=== PATIENT | male | born 1970 | race Caucasian/White ===

== ENCOUNTER 2019-12-01 01:38 | Inpatient (IN) | payer BC, SELFPAY ==
[2019-12-01] MEDS ORDERED: NITROGLYCERIN 0.4 MG/TAB SL ONE (02:11)
[2019-12-01] MEDS ORDERED: NA CHLORIDE 0.9% 1,000 ML ONE (02:11)
[2019-12-01] MEDS ORDERED: ONDANSETRON 4 MG/2 ML VIAL ONE (02:11)
[2019-12-01 02:12] LABS: Absolute Lymphocytes (CBC) 1.2 K/uL (0.7-4.9); Basophils % 0.9 % (0-1.3); Hematocrit 50.4 % (39.6-49.0); Lymphocytes % 9.7 % (15.3-44.8); MPV 9.2 fL (7.6-11.3); RBC Red Blood Cell Count 5.91 M/uL (4.33-5.43)
[2019-12-01 02:13] LABS: Protime INR 1.01
[2019-12-01 02:29] LABS: Albumin 3.4 g/dL (3.4-5.0); Bilirubin Direct 0.1 mg/dL (0-0.2); Bilirubin Total 0.4 mg/dL (0.2-1.0); Magnesium 2.1 mg/dL (1.8-2.4); Potassium 3.8 mmol/L (3.5-5.1); Protein, Total 6.9 g/dL (6.4-8.2); Troponin (Emerg Dept Use Only) 0.22 ng/mL (0.0-0.045)
[2019-12-01] MEDS ORDERED: ASPIRIN 81 MG CHEWABLE TABLET ONE (02:30)
[2019-12-01] MEDS ORDERED: MORPHINE 4 MG/ML SYR ONE (02:30)
--- NOTE | 2019-12-01 04:40 | ER ---
Nurse's Notes [facility] Name: Charan Restrepo Jr Age: 49 yrs Sex: Male : 1970 Arrival Date: 12/01/2019 Time: 01:39 Bed 18 Private MD: Diagnosis: ACUTE CORONARY SYNDROME Presentation: 12/01 01:56 Presenting complaint: Patient states: Pt reports he started having chest pain at around ea 2330, he reports the pain moving to his left arm. Pt took two baby aspirins prior to arrival. Transition of care: patient was not received from another setting of care. Onset of symptoms was December 01, 2019. Risk Assessment: Do you want to hurt yourself or someone else? Patient reports no desire to harm self or others. Initial Sepsis Screen: Does the patient meet any 2 criteria? No. Patient's initial sepsis screen is negative. Does the patient have a suspected source of infection? No. Patient's initial sepsis screen is negative. Care prior to arrival: Medication(s) given: ASA, 81 mg, x 2. 01:56 Method Of Arrival: Wheelchair ea 01:56 Acuity: MARTY 3 ea Triage Assessment: 02:04 General: Appears uncomfortable, Behavior is appropriate for age. Pain: Complains of ea pain in chest Pain radiates to left arm. Cardiovascular: Patient's skin is warm and dry. Historical: - Allergies: 02:03 No Known Drug Allergies; ea - Home Meds: 02:03 Lipitor Oral [Active]; clopidogrel 75 mg Oral tab 1 tab once daily [Active]; ea - PMHx: 02:03 Hyperlipidemia; Hypertension; ea - PSHx: 02:03 Cholecystectomy; right knee surgery; left elbow surgery; ea 07:15 Cardiac stents x 3; sv - Immunization history:: Adult Immunizations up to date. - Coronavirus screen:: The patient has NOT traveled to [place], [place], or [place] in the past 14 days. - Social history:: Smoking status: Patient reports the use of cigarette tobacco products, denies chronic smoking, but will smoke occasionally. - Ebola Screening: : No symptoms or risks identified at this time. Screenin:01 Abuse screen: Denies threats or abuse. Nutritional screening: No deficits noted. ea Tuberculosis screening: No symptoms or risk factors identified. Fall Risk None identified. Assessment: 02:04 General: Appears uncomfortable, Behavior is calm, cooperative, appropriate for age. ea Pain: Complains of pain in left arm and chest. Neuro: Level of Consciousness is awake, alert, obeys commands, Oriented to person, place, time, situation. Cardiovascular: Patient's skin is warm and dry. Respiratory: Airway is patent Respiratory effort is even, unlabored, Respiratory pattern is regular, symmetrical. Derm: Skin is pink, warm \T\ dry. Musculoskeletal: Circulation, motion, and sensation intact. 04:45 Reassessment: Patient and/or family updated on plan of care and expected duration. Pain ea level reassessed. Patient is alert, oriented x 3, equal unlabored respirations, skin warm/dry/pink. 05:19 Reassessment: Patient and/or family updated on plan of care and expected duration. Pain ea level reassessed. Patient is alert, oriented x 3, equal unlabored respirations, skin warm/dry/pink. Hospitalist at bedside updating on plan of care. 06:14 Reassessment: Patient and/or family updated on plan of care and expected duration. Pain ea level reassessed. Patient is alert, oriented x 3, equal unlabored respirations, skin warm/dry/pink. 07:03 Reassessment: Pt ambulating back from being outside. Pt updated on POC and that we are sv waiting on a bed assignment at this time. General: Appears in no apparent distress. comfortable, well developed, Behavior is calm, cooperative, appropriate for age. Pain: Denies pain. Neuro: Level of Consciousness is awake, alert, obeys commands, Oriented to person, place, time, situation, Moves all extremities. Full function Gait is steady, Speech is normal. Cardiovascular: Heart tones S1 S2 present Patient's skin is warm and dry. Rhythm is sinus rhythm Chest pain is denied. Respiratory: Airway is patent Respiratory effort is even, unlabored, Respiratory pattern is regular, symmetrical, Breath sounds are clear bilaterally. GI: No signs and/or symptoms were reported involving the gastrointestinal system. Derm: Skin is pink, warm \T\ dry. Musculoskeletal: Range of motion: intact in all extremities. 08:01 Reassessment: Patient appears in no apparent distress at this time. No changes from sv previously documented assessment. Patient and/or family updated on plan of care and expected duration. Pain level reassessed. Patient is alert, oriented x 3, equal unlabored respirations, skin warm/dry/pink. Vital Signs: 02:00 BP 147 / 82; Pulse 74; Resp 18; Temp 97.6; Pulse Ox 97% on R/A; Weight 99.79 kg; Height ea 5 ft. 10 in. (177.80 cm); 02:54 BP 152 / 94; Pulse 70; Resp 16; Pulse Ox 98% on R/A; ea 03:30 BP 137 / 76; Pulse 62; Resp 18; Pulse Ox 97% ; ea 03:45 Pain 7/10; ea 04:15 BP 127 / 84; Pulse 62; Resp 18; Pulse Ox 97% ; ea 05:50 BP 146 / 97; Pulse 81; Resp 18; Pulse Ox 98% on R/A; ea 06:14 BP 124 / 79; Pulse 66; Resp 18; Pulse Ox 98% on R/A; ea 07:05 BP 132 / 88; Pulse 65; Resp 18; Pulse Ox 98% ; sv 08:01 BP 129 / 86; Pulse 70; Resp 16; Pulse Ox 99% ; sv 02:00 Body Mass Index 31.57 (99.79 kg, 177.80 cm) ea ED Course: 01:39 Patient arrived in ED. cf2 01:47 EKG done, by ED staff, reviewed by Goldy Cantu MD. em1 01:48 Vijay Stoll PA is PHCP. cp 01:48 Goldy Cantu MD is Attending Physician. cp 01:54 Rachel Todd, AYLIN is Primary Nurse. ea 02:00 Triage completed. ea 02:02 Inserted saline lock: 20 gauge in right forearm, using aseptic technique. Blood ea collected. Patient maintains SpO2 saturation greater than 95% on room air. 02:02 Patient has correct armband on for positive identification. Placed in gown. Bed in low ea position. Call light in reach. Side rails up X2. maths tutor on. Pulse ox on. NIBP on. 02:03 Arm band placed on right wrist. Patient placed in an exam room, on a stretcher, on ea board attendant, on pulse oximetry. 02:19 XRAY Chest (1 view) In Process Unspecified. EDMS 04:40 Ld Palomino is Hospitalizing Provider. tw4 04:44 No provider procedures requiring assistance completed. Patient admitted, IV remains in ea place. 07:16 Primary Nurse role handed off by Rachel Todd RN sv 07:16 Dot Licea, RN is Primary Nurse. sv 07:18 Repeat lab(s) drawn. by me, sent to lab. sv 07:44 Troponin (emerg Dept Use Only): admission orders, ordered by Dr Palomino Sent. sv 07:47 Awaiting bed assignment. sv Administered Medications: 02:10 Drug: Nitroglycerin 0.4 mg Route: Sublingual; ea 02:31 Follow up: Response: No adverse reaction; Pain is unchanged, physician notified ea 02:11 Drug: NS 0.9% 1000 ml Route: IV; Rate: 1 bolus; Site: right forearm; ea 02:11 Drug: Zofran 4 mg Route: IVP; Site: right forearm; ea 02:31 Follow up: Response: No adverse reaction ea 02:31 Drug: Aspirin Chewable Tablet 162 mg Route: PO; ea 03:45 Follow up: Response: No adverse reaction ea 02:31 Drug: morphine 4 mg {Note: RASS 0 Pain 9/10.} Route: IVP; Site: right forearm; ea 03:45 Follow up: Pain 7/10 Adult; Response: No adverse reaction; Pain is decreased ea 05:11 Drug: Lovenox 1 mg/kg Route: Sub-Q; Site: right lower abdomen; ea 05:51 Follow up: Response: No adverse reaction ea Outcome: 04:40 Decision to Hospitalize by Provider. tw4 08:00 Admitted to Tele accompanied by tech, via wheelchair, room 204, with chart, Report sv called to Shaun VIERA 08:00 Condition: stable 08:00 Instructed on the need for admit. 08:15 Patient left the ED. sv Signatures: Dispatcher [employer] EDMS Dot Licea, Gómez Dillon RN em1 Vijay Stoll PA PA cp Antunez, Elena, RN RN ea Wadley, Terrence, MD MD tw4 Natalio Velez 2 Corrections: (The following items were deleted from the chart) 01:50 01:47 EKG done, by ED staff, em1 em1 07:16 02:03 PSHx: heart stent x 1; ea sv
--- NOTE | 2019-12-01 04:41 | EDPHYS ---
Physician Documentation [facility] Name: Charan Restrepo Jr Age: 49 yrs Sex: Male : 1970 Arrival Date: 12/01/2019 Time: 01:39 Bed 18 Private MD: ED Physician Goldy Cantu HPI: 12/01 01:59 This 49 yrs old Male presents to ER via Unassigned with complaints of Chest cp Pain. 02:00 The patient or guardian reports chest pain that is located primarily in the substernal cp area. Onset: last night, at 23:00. The pain does not radiate. The chest pain is described as stabbing. Duration: The patient or guardian reports a single episode, that is still ongoing. Severity of pain: in the emergency department the pain is a 9 / 10. Historical: - Allergies: 02:03 No Known Drug Allergies; ea - Home Meds: 02:03 Lipitor Oral [Active]; clopidogrel 75 mg Oral tab 1 tab once daily [Active]; ea - PMHx: 02:03 Hyperlipidemia; Hypertension; ea - PSHx: 02:03 Cholecystectomy; right knee surgery; left elbow surgery; ea 07:15 Cardiac stents x 3; sv - Immunization history:: Adult Immunizations up to date. - Coronavirus screen:: The patient has NOT traveled to [place], [place], or [place] in the past 14 days. - Social history:: Smoking status: Patient reports the use of cigarette tobacco products, denies chronic smoking, but will smoke occasionally. - Ebola Screening: : No symptoms or risks identified at this time. ROS: 02:01 Eyes: Negative for injury, pain, redness, and discharge. cp 02:01 Constitutional: Negative for body aches, chills, fever, poor PO intake. 02:01 ENT: Negative for drainage from ear(s), ear pain, sore throat, difficulty swallowing, difficulty handling secretions. 02:01 Cardiovascular: Positive for chest pain, Negative for edema, palpitations. 02:01 Respiratory: Negative for cough, shortness of breath, wheezing. 02:01 Abdomen/GI: Negative for abdominal pain, vomiting, diarrhea, constipation. 02:01 Back: Negative for radiated pain. 02:01 Neuro: Negative for altered mental status, headache, syncope, weakness. 02:01 All other systems are negative. Exam: 02:02 Head/Face: Normocephalic, atraumatic. cp 02:02 Constitutional: The patient appears in no acute distress, alert, awake, non-diaphoretic, non-toxic, well developed, well nourished. 02:02 Eyes: Periorbital structures: appear normal, Conjunctiva: normal, no exudate, no injection, Sclera: no appreciated abnormality, Lids and lashes: appear normal, bilaterally. 02:02 ENT: External ear(s): are unremarkable, Nose: is normal, Mouth: Lips: moist, Oral mucosa: pink and intact, moist, Posterior pharynx: Airway: no evidence of obstruction, patent. 02:02 Chest/axilla: Inspection: normal, Palpation: is normal, no crepitus, no tenderness. 02:02 Cardiovascular: Rate: normal, Rhythm: regular, Pulses: Pulses are 2+ in right radial artery and left radial artery. Edema: is not appreciated, JVD: is not appreciated. 02:02 Respiratory: the patient does not display signs of respiratory distress, Respirations: normal, no use of accessory muscles, no retractions, labored breathing, is not present, Breath sounds: are clear throughout, no decreased breath sounds, no stridor, no wheezing. 02:02 Abdomen/GI: Inspection: abdomen appears normal, Bowel sounds: active, all quadrants, Palpation: abdomen is soft and non-tender, in all quadrants, rebound tenderness, is not appreciated, voluntary guarding, is not appreciated, involuntary guarding, is not appreciated. 02:02 Back: pain, is absent. 02:02 Neuro: Orientation: to person, place \T\ time. Mentation: is normal, Motor: moves all fours, strength is normal, Sensation: is normal. 02:04 ECG was reviewed by the Attending Physician. cp Vital Signs: 02:00 BP 147 / 82; Pulse 74; Resp 18; Temp 97.6; Pulse Ox 97% on R/A; Weight 99.79 kg; Height ea 5 ft. 10 in. (177.80 cm); 02:54 BP 152 / 94; Pulse 70; Resp 16; Pulse Ox 98% on R/A; ea 03:30 BP 137 / 76; Pulse 62; Resp 18; Pulse Ox 97% ; ea 03:45 Pain 7/10; ea 04:15 BP 127 / 84; Pulse 62; Resp 18; Pulse Ox 97% ; ea 05:50 BP 146 / 97; Pulse 81; Resp 18; Pulse Ox 98% on R/A; ea 06:14 BP 124 / 79; Pulse 66; Resp 18; Pulse Ox 98% on R/A; ea 07:05 BP 132 / 88; Pulse 65; Resp 18; Pulse Ox 98% ; sv 08:01 BP 129 / 86; Pulse 70; Resp 16; Pulse Ox 99% ; sv 02:00 Body Mass Index 31.57 (99.79 kg, 177.80 cm) ea MDM: 01:55 Patient medically screened. cp 02:08 Differential diagnosis: acute myocardial infarction, cholecystitis, Cholelithiasis cp esophagitis, gastroesophageal reflux disease (GERD), pneumothorax, stable angina, thoracic aortic disection, unstable angina. 12/01 01:54 Order name: Basic Metabolic Panel; Complete Time: 04:39 12/01 01:54 Order name: CBC with Diff; Complete Time: 02:18 12/01 02:19 Interpretation: Normal except: WBC 12.1; RBC 5.91; HCT 50.4; OSIEL% 80.8; LYM% 9.7; NEUT cp A 9.8. 12/01 01:54 Order name: LFT's; Complete Time: 04:39 12/01 01:54 Order name: Magnesium; Complete Time: 04:39 ea 12/01 01:54 Order name: NT PRO-BNP; Complete Time: 04:39 12/01 01:54 Order name: PT-INR; Complete Time: 02:18 12/01 02:20 Interpretation: Reviewed. cp 12/01 01:54 Order name: Troponin (emerg Dept Use Only); Complete Time: 04:39 12/01 01:54 Order name: XRAY Chest (1 view) ea 12/01 07:14 Order name: Troponin (emerg Dept Use Only): admission orders, ordered by Dr Palomino 12/01 01:54 Order name: EKG; Complete Time: 01:55 ea 12/01 01:54 Order name: Cardiac monitoring; Complete Time: 01:55 12/01 01:54 Order name: EKG - Nurse/Tech; Complete Time: 01:55 12/01 01:54 Order name: IV Saline Lock; Complete Time: 01: ea 12/01 01:54 Order name: Labs collected and sent; Complete Time: ea 12/01 01:54 Order name: O2 Per Protocol; Complete Time: ea 12/01 01:54 Order name: O2 Sat Monitoring; Complete Time: EC:04 Rate is 73 beats/min. Rhythm is regular. AR interval is normal. QRS interval is normal. cp QT interval is normal. T waves are Inverted in leads I, aVL, aVR. Interpreted by me. Reviewed by me. Administered Medications: 02:10 Drug: Nitroglycerin 0.4 mg Route: Sublingual; ea 02:31 Follow up: Response: No adverse reaction; Pain is unchanged, physician notified ea 02:11 Drug: NS 0.9% 1000 ml Route: IV; Rate: 1 bolus; Site: right forearm; ea 02:11 Drug: Zofran 4 mg Route: IVP; Site: right forearm; ea 02:31 Follow up: Response: No adverse reaction ea 02:31 Drug: Aspirin Chewable Tablet 162 mg Route: PO; ea 03:45 Follow up: Response: No adverse reaction ea 02:31 Drug: morphine 4 mg {Note: RASS 0 Pain 9/10.} Route: IVP; Site: right forearm; ea 03:45 Follow up: Pain 7/10 Adult; Response: No adverse reaction; Pain is decreased ea 05:11 Drug: Lovenox 1 mg/kg Route: Sub-Q; Site: right lower abdomen; ea 05:51 Follow up: Response: No adverse reaction ea Disposition: 15:20 Co-signature as Attending Physician, Goldy Cantu MD I agree with the assessment and tw4 plan of care. Disposition: 12/01/19 04:40 Hospitalization ordered by Ld Palomino for Inpatient Admission. Preliminary diagnosis is ACUTE CORONARY SYNDROME. - Bed requested for Telemetry/MedSurg (Inpatient). - Status is Inpatient Admission. sv - Condition is Stable. - Problem is new. - Symptoms have improved. Signatures: Dispatcher [employer] EDMS Emma Maldonado Stephanie, RN RN sv Page, Corey, PA PA cp Antunez, Elena, RN RN ea Wadley, Terrence, MD MD tw4 Corrections: (The following items were deleted from the chart) 07:16 02:03 PSHx: heart stent x 1; ea sv 07:52 04:40 Hospitalization Ordered by Ld Palomino for Inpatient Admission. Preliminary bd diagnosis is ACUTE CORONARY SYNDROME. Bed requested for Telemetry/MedSurg (Inpatient). Status is Inpatient Admission. Condition is Stable. Problem is new. Symptoms have improved. tw4 08:15 07:52 12/01/2019 04:40 Hospitalization Ordered by Ld Palomino for Inpatient sv Admission. Preliminary diagnosis is ACUTE CORONARY SYNDROME. Bed requested for Telemetry/MedSurg (Inpatient). Status is Inpatient Admission. Condition is Stable. Problem is new. Symptoms have improved. bd
[2019-12-01] MEDS ORDERED: ENOXAPARIN 100 MG/ML SYR SQ ONE (04:58)
--- NOTE | 2019-12-01 05:52 | P.HP ---
Certification for Inpatient Patient admitted to: Observation With expected LOS: <2 Midnights Practitioner: I am a practitioner with admitting privileges, knowledge of patient current condition, hospital course, and medical plan of care. Services: Services provided to patient in accordance with Admission requirements found in Title 42 Section 412.3 of the Code of Federal Regulations Patient History Date of Service: 12/01/19 Reason for admission: Chest pain History of Present Illness: 49-year-old gentleman with a history of coronary artery disease status post stent and chronic systolic heart failure presented to the emergency department with a complaint of chest pain of onset last night. Patient described a left anterior chest pain of maximum intensity 9/10, which occurred at rest, radiating to involve the left shoulder, no aggravating or relieving factors, no associated diaphoresis or nausea or palpitation. Patient reports having another chest pain episode in the emergency department before I saw him. He had no more chest pain during my examination. His initial troponin is elevated to 0.22. EKG reviewed and demonstrating J-point elevations. Chest x-ray shows cardiomegaly, no acute changes. Noted patient had a cardiac catheterization in 2017 and was found to have InStent stenosis and other points of stenosis in the LAD. Balloon dilatation was performed at that time. Patient reports compliance with his medications which include aspirin and Plavix. He continues to smoke heavily. He is placed under observation for further management. Allergies No Known Drug Allergies Allergy (Verified 06/21/17 20:11) Unknown No Known All Allergy (Uncoded 06/21/17 20:11) Unknown Home Medications: Clopidogrel Bisulfate [Plavix*] 75 mg PO DAILY #30 tablet 02/16/15 Metoprolol Tartrate [Lopressor*] 12.5 mg PO BID #30 tab 02/16/15 ramipriL [Altace*] 2.5 mg PO DAILY #30 cap 02/16/15 Aspirin [Aspirin EC 81 MG] 81 mg PO DAILY #30 tablet. 06/23/17 Atorvastatin Calcium [Lipitor] 80 mg PO BEDTIME #30 tab 06/23/17 Nitroglycerin [Nitrostat*] 0.4 mg SL UD PRN #30 tab 06/23/17 - Past Medical/Surgical History Diabetic: No -: mycardial infarction x2 -: HTN -: kidney stones -: CAD -: HLD -: cholecystectomy -: left leg fixator -: right knee sx -: left elbow sx -: cardiac cath w/heart stent x1 -: bone graft - Family History Father -: Heart disease, Cancer - Social History Smoking Status: Heavy Tobacco smoker (>10 cigarettes/day) Alcohol use: Yes CD- Drugs: No Caffeine use: Yes Review of Systems Other: Except as documented, all other systems reviewed and negative. Physical Examination - Physical Exam General: Alert, In no apparent distress, Oriented x3 HEENT: Mucous membr. moist/pink, Sclerae nonicteric Neck: Supple, JVD not distended Respiratory: Clear to auscultation bilaterally, Normal air movement Cardiovascular: No edema, Regular rate/rhythm, Normal S1 S2 Capillary refill: <2 Seconds Gastrointestinal: Normal bowel sounds, Soft and benign, Non-distended, No tenderness Musculoskeletal: No swelling, No erythema Integumentary: No rashes, No erythema Neurological: Normal speech, Normal strength at 5/5 x4 extr, Cranial nerves 3- 12 intact - Studies Laboratory Data (last 24 hrs) 12/01/19 01:50: PT 11.9, INR 1.01 12/01/19 01:50: WBC 12.1 H, Hgb 16.9, Hct 50.4 H, Plt Count 211 12/01/19 01:50: Sodium 139, Potassium 3.8, BUN 23 H, Creatinine 1.31 H, Glucose 283 H, Magnesium 2.1, Total Bilirubin 0.4, AST 14 L, ALT 27, Alkaline Phosphatase 89 Assessment and Plan - Problems (Diagnosis) (1) Chest pain Onset Date: 06/22/17 Current Visit: No Status: Acute Qualifiers: Chest pain type: precordial pain Qualified Code(s): R07.2 - Precordial pain (2) Elevated troponin Current Visit: Yes Status: Acute (3) CKD (chronic kidney disease), stage III Onset Date: 06/22/17 Current Visit: No Status: Chronic (4) CAD (coronary artery disease) Onset Date: 06/22/17 Current Visit: No Status: Chronic Qualifiers: Coronary Disease-Associated Artery/Lesion type: [place] artery [place] vs. transplanted heart: [place] heart Associated angina: with unstable angina Qualified Code(s): I25.110 - Atherosclerotic heart disease of [place] coronary artery with unstable angina pectoris (5) Hyperlipidemia Onset Date: 06/22/17 Current Visit: No Status: Chronic Qualifiers: Hyperlipidemia type: unspecified Qualified Code(s): E78.5 - Hyperlipidemia , unspecified (6) Hypertension Onset Date: 02/16/15 Current Visit: No Status: Chronic Qualifiers: Hypertension type: essential hypertension Qualified Code(s): I10 - Essential (primary) hypertension (7) Nicotine dependence Current Visit: No Status: Chronic Qualifiers: Nicotine product type: cigarettes Substance use status: uncomplicated Qualified Code(s): F17.210 - Nicotine dependence, cigarettes, uncomplicated - Plan Place under observation. Continue to trend troponin Continue aspirin and Plavix. Add Metoprolol Will start full-dose Lovenox given patient's high CAD risk factors Lipitor ordered Check lipid profile Echocardiogram requested Cardiology consult placed. - Advance Directives Does patient have a Living Will: No Does patient have a Durable POA for Healthcare: No
--- NOTE | 2019-12-01 07:57 | RAD REPORT ---
EXAM DESCRIPTION: Du Single View12/01/2019 2:19 am CLINICAL HISTORY: Chest pain COMPARISON: none FINDINGS: The lungs appear clear of acute infiltrate. The heart is mildly to moderately enlarged IMPRESSION: No acute abnormalities displayed
[2019-12-01] MEDS ORDERED: NITROGLYCERIN 0.4 MG/TAB SL PRN (08:04)
[2019-12-01] MEDS: ASPIRIN EC 81 MG TAB PO SCH (08:25)
[2019-12-01] MEDS: METOPROLOL TAR 25 MG TAB PO SCH ×2 (09:09→20:45)
[2019-12-01 10:15] VITALS: BMI 31.5
[2019-12-01] MEDS ORDERED: GLUCAGON 1 MG/VIAL IM PRN (11:06)
[2019-12-01] MEDS ORDERED: D50W 25 GM/50 ML SYRINGE/VIAL IV PRN (11:06)
--- NOTE | 2019-12-01 11:36 | ECHO ---
HEIGHT: 5 ft 10 in WEIGHT: 219 lb 15.989 oz DATE OF STUDY: 12/01/[address]: sandra opllard 2-DIMENSIONAL: YES M.MODE: YES DOPPLER: YES COLOR FLOW: YES TDS: NO PORTABLE: NO DEFINITY: NO BUBBLE STUDY: NO DIAGNOSIS: CHEST PAIN, ELEVATED TROPONIN CARDIAC HISTORY: CATHERIZATION: YES SURGERY: NO PROSTHETIC VALVE: NO PACEMAKER: NO MEASUREMENTS (cm) DIASTOLIC (NORMALS) SYSTOLIC (NORMALS) IVSd 1.2 (0.6-1.2) LA Diam 3.8 (1.9-4.0) LVEF 40-45% LVIDd 5.9 (3.5-5.7) LVIDs 4.2. (2.0-3.5) %FS 28% LVPWd 1.3 (0.6-1.2) Ao Diam 3.4 (2.0-3.7) 2 DIMENSIONAL ASSESSMENT: RIGHT ATRIUM: NORMAL LEFT ATRIUM: DILATED RIGHT VENTRICLE: NORMAL LEFT VENTRICLE: LEFT VENTRICULAR HYPERTROPHY TRICUSPID VALVE: NORMAL MITRAL VALVE: NORMAL PULMONIC VALVE: NORMAL AORTIC VALVE: NORMAL PERICARDIAL EFFUSION: NONE AORTIC ROOT: NORMAL LEFT VENTRICULAR WALL MOTION: AKINESIS OF ANTERIOR WALL & APEX. DOPPLER/COLOR FLOW: MILD MITRAL REGURGITATION. COMMENTS: MILDLY DEPRESSED LEFT VENTRICUALR EJECTION FRACTION WITH WALL MOTION ABNORMALITY. MILD MITRAL REGURGITATION. DILATED LEFT ATRIUM. LEFT VENTRICULAR HYPERTROPHY. TECHNOLOGIST: SAMSON NARANJO
[2019-12-01] MEDS: NICOTINE 21 MG/PAT TD SCH (11:54)
[2019-12-01] MEDS: INSULIN -REGULAR HUMAN 50 UNIT/0.5 ML ML SQ SCH ×3 (11:55→20:46)
--- NOTE | 2019-12-01 13:37 | CON ---
History Of Present Illness: Mr. Restrepo has a history of coronary heart disease. His last stent was in 2017. It was a proximal LAD stenosis. 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 H is right coronary and circumflex were free of any significant disease. When we did our last heart ca theterization, he had multiple stents before the stent we put in in 2017. Mr. Restrepo developed ches t pain about 11:30 p.m. yesterday, came to the emergency room at about 1 a.m. today. All of his pain went away as of 4:30 a.m. today. It is about 5 hours ago. The patient received Lovenox just a few hours ago, so he is not an ideal candidate to do a cardiac catheterization electively. It would be o suellen if it were emergent, but it is no longer emergent. Mr. Restrepo has underlying obstructive lung d isease, hypertension, coronary heart disease, dyslipidemia. He does not have diabetes. He continues to smoke cigarettes. Medications: Outpatient medications have been clopidogrel, metoprolol, ramipril, atorvastatin, nitro glycerin, and aspirin. Physical Examination: General: He is 5 feet 10 inches, 219 pounds, disheveled, unkempt, alert, oriented, pleasant, not in distress. Lungs: Clear, but breath sounds are mostly bronchial. No wheezes. Abdomen: Soft. Extremities: Reveal palpable distal pulses. No cyanosis, clubbing, or edema. There is no carotid b ruit. Heart: Reveals a regular rate and rhythm without a murmur or gallop. Laboratory Data: His troponin on arrival was 0.22, 6 hours later it is 2.84, consistent with non-ST- elevation UT. His EKG shows old anterior and lateral and inferior infarctions, not significantly sreedhar nged from his older EKGs. Impression: The patient has had a [id number] myocardial infarction. He should undergo a cardi ac catheterization because the Lovenox was given so recently. We will do it now and we will plan on doing a cardiac catheterization tomorrow morning. The patient seems to understand the procedure, potential benefits, indications, risks, and agrees to proceed. KEITH/FAUSTINO Voice ID: [id number] Report ID: [id number]
[2019-12-01] MEDS: NA CHLORIDE 0.9% 1,000 ML IV SCH (14:34)
[2019-12-01] MEDS: MORPHINE 2 MG/ML SYR IV PRN ×2 (14:35→18:35)
[2019-12-01] MEDS ORDERED: ENOXAPARIN 100 MG/ML SYR SQ SCH (18:00)
[2019-12-01] MEDS ORDERED: ATORVASTATIN 40 MG TAB PO SCH (21:00)
[2019-12-02] MEDS: NA CHLORIDE 0.9% 1,000 ML IV SCH (05:26)
[2019-12-02] MEDS: ASPIRIN EC 81 MG TAB PO SCH (06:05)
[2019-12-02] MEDS: METOPROLOL TAR 25 MG TAB PO SCH (06:05)
[2019-12-02 06:35] LABS: Absolute Lymphocytes (CBC) 1.7 K/uL (0.7-4.9); Basophils % 1.1 % (0-1.3); Hematocrit 49.9 % (39.6-49.0); Lymphocytes % 18.7 % (15.3-44.8); MPV 9.2 fL (7.6-11.3); RBC Red Blood Cell Count 5.87 M/uL (4.33-5.43)
[2019-12-02] MEDS: INSULIN -REGULAR HUMAN 50 UNIT/0.5 ML ML SQ SCH ×2 (07:30→10:57)
[2019-12-02] MEDS: NICOTINE 21 MG/PAT TD SCH (08:37)
[2019-12-02] MEDS ORDERED: HEPARIN 5000 UNIT/ML 1 ML VIAL ONE (08:41)
[2019-12-02] MEDS ORDERED: MIDAZOLAM HCL 2 MG/2 ML INJ ONE ×2 (08:41→09:20)
[2019-12-02] MEDS ORDERED: NA CHLORIDE 0.9% 0 ML ONE (08:41)
[2019-12-02] MEDS ORDERED: FENTANYL CITR 100 MCG/2 ML ONE (08:41)
[2019-12-02] MEDS ORDERED: ATROPINE SULF 1 MG/10 ML SYR IV ONE (08:41)
[2019-12-02] MEDS ORDERED: NICARDIPINE HCL 25 MG/10 ML IV ONE (08:41)
[2019-12-02] MEDS ORDERED: NA CHLORIDE 0.9% 500 ML ONE (08:50)
--- NOTE | 2019-12-02 08:51 | EKG ---
Test Date: 2019-12-01 Test Time: 01:46:39 Patient Coordinator: JEREMI MEASUREMENT RESULTS: Intervals: Rate: 73 LA: 148 QRSD: 92 QT: 360 QTc: 396 [place]: P: 32 LA: 148 QRS: 84 T: 70 INTERPRETIVE STATEMENTS: Normal sinus rhythm Possible Inferior infarct, age undetermined Anterolateral infarct, age undetermined Abnormal ECG Compared to ECG 06/21/2017 01:41:29 No significant changes Electronically Signed On 12-02-19 08:50:11 MANAGER CREATIVE by Montez Mei
[2019-12-02] MEDS ORDERED: CLOPIDOGREL 75 MG TABLET PO SCH (09:00)
[2019-12-02] MEDS ORDERED: ACETYLCYST 20% 4 ML VIAL IH ONE (09:15)
[2019-12-02] MEDS ORDERED: HEPA 1000U/500MLS 2,000 UNIT/1,000 ML BAG IV ONE (09:33)
[2019-12-02] MEDS ORDERED: INSULIN -REGULAR HUMAN 50 UNIT/0.5 ML ML ONE (10:56)
[2019-12-02 11:40] VITALS: O2SAT 98
[2019-12-02 12:58] VITALS: BP 126/64; TEMP 97.1
--- NOTE | 2019-12-02 20:29 | OP ---
Surgeon: Montez Mei MD Identification: A 49-year-old man. Procedure: Left heart catheterization with coronary angiography, measurement of LV pressures. Indication: Non-ST elevation IA. Procedure Findings: The patient had previous LAD stents, they were widely patent. No stenosis. Mil d lumen irregularities throughout the coronary tree. There is ectasia in the right coronary artery t hat has some flow stasis abnormalities and in general the coronary flow is slow, probably due to micr ovascular coronary artery disease. Epicardial arteries have no significant stenosis. The left ventr icular end-diastolic pressure was normal. Procedure In Detail: The patient was brought to the cardiac mechanical laboratory technician in a fasting, sedated with Vers ed and fentanyl, right radial approach, 1% lidocaine, a 21-gauge needle, a 0.021 inch diameter guidew harleen. A Terumo 5/6-Taiwanese radial sheath gave a radial cocktail consisting of nicardipine, heparin, ni troglycerin. We used a TIG catheter, guided into place using a [facility] Glidewire with a short radius J-tip. We used a TIG catheter to measure LV pressures and do right and left coronary angiography. A t the end of the procedure, the catheter was withdrawn over a J-wire to minimize any trauma to the ar savita. Pressures were measured in the sheath after everything was removed and flushed. Waveforms loo k normal and then the sheath was removed. The arteriotomy closed with a TR band. Estimated Blood Loss: 5 mL. Outside Sales Advertising Executive: Aram Stratton. Complications: None. KEITH/FAUSTINO Voice ID: [id number] Report ID: [id number]
--- NOTE | 2019-12-02 22:49 | DS ---
Date of Discharge: 12/02/2019 Hospital Course: This patient is a 49-year-old gentleman, who presented for chest pain. He has a history of coronary artery disease status post stenting, chronic systolic CHF, and type 2 diabetes. The patient experienced left anterior chest pain and then presented to the emergency room. In the ED, the initial troponin was 0.022, and EKG demonstrated J-point elevation. Repeated troponin was 2.6. He was diagnosed of non-STEMI. Waterside Worker, Dr. Mei was consulted. He decided to perform cardiac catheterization. Cardiac cath is unremarkable per population health manager. Echo demonstrated ejection fraction 40% to 45%. Currently, patient is chest pain free. Vital stable. Waterside Worker recommended discharge. Instructed him to follow population health manager in 1 or 2 weeks. Physical Examination: Vital Signs: Temperature normal, heart rate 74, blood pressure 124/75. General: The patient awake, alert, in no acute distress. HEENT: PERRLA. EOMI. Chest: Clear to auscultation. No respiratory distress. Heart: Normal S1, S2. Regular rhythm and rate. No murmur. Abdomen: Soft, nontender. Bowel sounds present. Extremities: No edema. No cyanosis. Neuro: Patient awake and alert. Nonfocal. Strength 5/5. No anxiety or agitation. Skin: No rashes or eczema. Laboratory Data: WBC 8.9, hemoglobin 16.9, platelet 203. Sodium 139, potassium 4, chloride 108, creatinine 1.06, blood sugar 187, triglycerides 266, total cholesterol 135. Discharge Diagnoses: 1. Kjy-DK-fuhpmtauq myocardial infarction. 2. Systolic congestive heart failure. 3. Coronary artery disease. 4. Hyperlipidemia. 5. Chronic kidney disease stage 3. 6. Tobacco abuse. Discharge Medications: Please see home medication list. Discharge Instructions: 1. Please follow population health manager in 1 or 2 weeks. 2. Please try to stop smoking. 3. Be on low-fat and healthy heart diet. 4. Please call emergency room if having shortness of breath or chest pain. Discharge Activity: As tolerated. I spent at least 30 minutes to discharge patient including reviewing the chart, physical examination, and the patient education. QT/MODL Voice ID: [id number] Report ID: [id number] [place]
== END 2019-12-02 12:24 | disposition home or self-care (01) | DRG 281 ==
LOC: ER 01:38 → ERHOLD 06:29 → 2ND 08:00 → OBSVTOIN 10:35
PROVIDERS: ADMIT Internal Medicine; ATTEND Internal Medicine
PROC: 4A023N7 Measurement of Cardiac Sampling and Pressure, Left Heart, Percutaneous Approach (ICD-10-PCS; principal; 2019-12-02)
PROC: B205YZZ Plain Radiography of Left Heart using Other Contrast (ICD-10-PCS; 2019-12-02)
PROC: B201YZZ Plain Radiography of Multiple Coronary Arteries using Other Contrast (ICD-10-PCS; 2019-12-02)
DX: I21.4 Non-ST elevation (NSTEMI) myocardial infarction (principal); I13.0 Hypertensive heart and chronic kidney disease with heart failure and stage 1 through stage 4 chronic kidney disease, or unspecified chronic kidney disease; I50.22 Chronic systolic (congestive) heart failure; I25.10 Atherosclerotic heart disease of native coronary artery without angina pectoris; Z95.5 Presence of coronary angioplasty implant and graft; N18.3 Chronic kidney disease, stage 3 (moderate); E78.5 Hyperlipidemia, unspecified; F17.210 Nicotine dependence, cigarettes, uncomplicated
CPT/HCPCS: 36415; 71045; 80048; 80061; 80076; 82947; 83735; 83880; 84484; 85025; 85610; 93005; 93306; 93458; 96372; 96374; 96375; 99285; C1893; G0378; J0583; J1644; J1650; J2250; J2270; J2405; J3010; J7030; J7040

== ENCOUNTER 2023-03-18 11:13 | Emergency (ER) | payer BC, SELFPAY ==
--- OUTSIDE RECORDS SUMMARY | 2023-03-18 11:16 | XMS REPORT | Continuity of Care Document ---
:1970 Author Organization [facility] t Address [address] [place] [address] Care Team Providers Name Role Phone Carmen Spencer Attending Clinician Unavailable Problems This patient has no known problems. Allergies, Adverse Reactions, Alerts This patient has no known allergies or adverse reactions. Medications This patient has no known medications. Procedures This patient has no known procedures. Encounters Start End Encounter Admission Attending Care Care Encounter Source Date/Time Date/Time Type Type Clinicians Facility Department ID 2022-11-07 Outpatient Johanna, [facility] [id number] Common 07:49:00 Carmen [id number] [facility] 2022-10-17 Outpatient DAILY Spencer [facility] [id number] Common 15:16:02 Carmen [facility] 2022-10-11 Outpatient DAILY Spencer [facility] [id number] Common 12:49:02 Carmen [facility] 2022-10-10 Outpatient Johanna [facility] [id number] Common 10:34:05 Carmen [facility] Results This patient has no known results.
[2023-03-18] MEDS ORDERED: Magnesium Sulfate 2gm IVPB 2 G/50 ML BAG IV ONE (11:32)
[2023-03-18] MEDS ORDERED: ONDANSETRON 4 MG/2 ML VIAL ONE (11:38)
[2023-03-18] MEDS ORDERED: MIDAZOLAM HCL 2 MG/2 ML INJ ONE (11:38)
[2023-03-18] MEDS ORDERED: FENTANYL CITR 100 MCG/2 ML ONE ×2 (11:38→12:47)
[2023-03-18] MEDS ORDERED: AMIODARONE HCL 150 MG/3 ML INJ IV ONE (11:38)
[2023-03-18 11:40] LABS: Absolute Lymphocytes (CBC) 4.4 K/uL (0.7-4.9); Hematocrit 56.5 % (39.6-49.0); Lymphocytes % 26.9 % (15.3-44.8); MCV 86.4 fL (80-100); MPV 8.3 fL (7.6-11.3); RBC Red Blood Cell Count 6.53 M/uL (4.33-5.43)
[2023-03-18] MEDS ORDERED: NA CHLORIDE 0.9% 2,000 ML ONE (11:40)
[2023-03-18] MEDS ORDERED: AMIODARONE IN DEXTROSE,ISO-OSM 360 MG/200 ML BAG IV ONE (11:50)
[2023-03-18] MEDS ORDERED: ASPIRIN 81 MG CHEWABLE TABLET ONE (11:50)
[2023-03-18] MEDS ORDERED: FAMOTIDINE 20 MG/2 ML VIAL IV ONE (11:50)
[2023-03-18 11:55] LABS: Protime INR 0.95
[2023-03-18 12:07] LABS: Albumin 3.9 g/dL (3.4-5.0); Bilirubin Direct 0.2 mg/dL (0-0.2); Bilirubin Indirect, Calculated 0.4 mg/dL (0.2-0.8); Bilirubin Total 0.6 mg/dL (0.2-1.0); Magnesium 2.3 mg/dL (1.6-2.4); Potassium 3.5 mEq/L (3.5-5.1); Protein, Total 7.6 g/dL (6.4-8.2); Troponin High Sensitivity 19.5 pg/mL (<58.9)
--- NOTE | 2023-03-18 12:08 | EDPHYS ---
Physician Documentation [facility] Name: Charan Restrepo Jr Age: 52 yrs Sex: Male : 1970 Arrival Date: 03/18/2023 Time: 11:13 Bed 3 Private MD: ED Physician Vijay Kapoor HPI: 03/18 11:59 This 52 yrs old Male presents to ER via Ambulatory with complaints of Chest sreedhar Pain. 11:59 The patient or guardian reports chest pain that is located primarily in the anterior sreedhar chest wall, bilaterally. Onset: just prior to arrival, this morning. The pain does not radiate. Associated signs and symptoms: Pertinent positives: lightheadedness, shortness of breath. The chest pain is described as a pressure. Duration: The patient or guardian reports a single episode, that is still ongoing, and unchanged. Modifying factors: The symptoms are alleviated by nothing. the symptoms are aggravated by exertion, movement. Severity of pain: At its worst the pain was moderate in the emergency department the pain is unchanged. The patient has not experienced similar symptoms in the past. Historical: - Allergies: 11:25 No Known Drug Allergies; bp - Home Meds: 11:25 clopidogrel 75 mg Oral tab 1 tab once daily [Active]; Lipitor Oral [Active]; bp - PMHx: 11:25 Hypertension; Hyperlipidemia; bp - Immunization history:: Adult Immunizations up to date. - Social history:: Smoking status: Patient reports the use of cigarette tobacco products, smokes two packs cigarettes per day. ROS: 12:01 Constitutional: Negative for fever, chills, and weight loss, Eyes: Negative for injury, sreedhar pain, redness, and discharge, ENT: Negative for injury, pain, and discharge, Neck: Negative for injury, pain, and swelling, Abdomen/GI: Negative for abdominal pain, nausea, vomiting, diarrhea, and constipation, Back: Negative for injury and pain, : Negative for injury, bleeding, discharge, and swelling, MS/Extremity: Negative for injury and deformity, Skin: Negative for injury, rash, and discoloration, Neuro: Negative for headache, weakness, numbness, tingling, and seizure, Psych: Negative for depression, anxiety, suicide ideation, homicidal ideation, and hallucinations, Allergy/Immunology: Negative for hives, rash, and allergies, Endocrine: Negative for neck swelling, polydipsia, polyuria, polyphagia, and marked weight changes, Hematologic/Lymphatic: Negative for swollen nodes, abnormal bleeding, and unusual bruising. 12:01 Cardiovascular: Positive for chest pain, of the chest, palpitations, Negative for edema. Exam: 12:01 Constitutional: This is a well developed, well nourished patient who is awake, alert, sreedhar and in no acute distress. Head/Face: Normocephalic, atraumatic. Eyes: Pupils equal round and reactive to light, extra-ocular motions intact. Lids and lashes normal. Conjunctiva and sclera are non-icteric and not injected. Cornea within normal limits. Periorbital areas with no swelling, redness, or edema. ENT: Nares patent. No nasal discharge, no septal abnormalities noted. Tympanic membranes are normal and external auditory canals are clear. Oropharynx with no redness, swelling, or masses, exudates, or evidence of obstruction, uvula midline. Mucous membranes moist. Neck: Trachea midline, no thyromegaly or masses palpated, and no cervical lymphadenopathy. Supple, full range of motion without nuchal rigidity, or vertebral point tenderness. No Meningismus. Chest/axilla: Normal chest wall appearance and motion. Nontender with no deformity. No lesions are appreciated. Abdomen/GI: Soft, non-tender, with normal bowel sounds. No distension or tympany. No guarding or rebound. No evidence of tenderness throughout. Back: No spinal tenderness. No costovertebral tenderness. Full range of motion. Male : Normal genitalia with no discharge or lesions. MS/ Extremity: Pulses equal, no cyanosis. Neurovascular intact. Full, normal range of motion. Neuro: Awake and alert, GCS 15, oriented to person, place, time, and situation. Cranial nerves II-XII grossly intact. Motor strength 5/5 in all extremities. Sensory grossly intact. Cerebellar exam normal. Normal gait. Psych: Awake, alert, with orientation to person, place and time. Behavior, mood, and affect are within normal limits. 12:01 Cardiovascular: Rate: tachycardic, actual rate is 240 bpm, Rhythm: regular, Pulses: Pulses are 3+ in bilateral radial, brachial, femoral, popliteal, posterior tibial and and dorsalis pedis arteries.. Heart sounds: normal, Edema: is not appreciated, JVD: is not appreciated. 12:01 ECG was reviewed by the Attending Physician. 12:09 ECG was reviewed by the Attending Physician. sreedhar 13:17 ECG was reviewed by the Attending Physician. [facility] Vital Signs: 11:18 BP 97 / 87; Pulse 243; Resp 29; Weight 90.72 kg; Height 5 ft. 10 in. ; Pain 10/10; nj1 11:25 Pulse 240; bp 11:45 BP 112 / 85; Pulse 93; Resp 19; Temp 98; Pulse Ox 94% on 2 lpm NC; bp 12:00 BP 137 / 83; Pulse 86; Resp 18; Pulse Ox 94% ; bp 12:15 BP 139 / 89; Pulse 84; Resp 17; Pulse Ox 96% ; bp 12:30 BP 151 / 93; Pulse 83; Resp 15; Pulse Ox 98% ; bp 13:00 BP 150 / 98; Pulse 87; Resp 16; Pulse Ox 94% ; bp 13:30 BP 153 / 90; Pulse 82; Resp 16; Pulse Ox 96% ; bp 14:00 BP 141 / 95; Pulse 86; Resp 17; Pulse Ox 97% ; bp 11:18 Body Mass Index 28.70 (90.72 kg, 177.8 cm) nj1 11:18 Pain Scale: Adult nj1 MDM: 11:37 Patient medically screened. [facility] 12:04 Antibiotic administration: Not indicated. HEART Score: History: Highly Suspicious (2), [facility] ECG: Significant ST-deviation (2), Age: > 45 and < 65 years (1), Risk Factors: > or = 3 Risk factors for atherosclerotic disease (2), [Hypercholesterolemia] [Hypertension] [Active Smoker] [+ Family HX] [Obesity] Troponin: < or = 1 x Normal Limit (0). The patient was given aspirin in the Emergency Department. ARELY Risk Score: 1 - Three or more CAD risk factors, 1- Known CAD, 1 - ASA use in past 7 days, TOTAL SCORE = 3. Immunization status: Influenza vaccine: within last 5 years. Data reviewed: vital signs, nurses notes, lab test result(s), EKG, radiologic studies, plain films. Consideration of Admission/Observation Patient was admitted/placed on observation. Escalation of care including admission/observation considered. I considered the following discharge prescriptions or medication management in the emergency department Medications were administered in the Emergency Department. See MAR. Test considered but Not performed: Ultrasound NO ECHO. Care significantly affected by the following chronic conditions: Hypertension, Congestive Heart Failure, TOBACCO ABUSE, HYPERLIPIDS. Counseling: I had a detailed discussion with the patient and/or guardian regarding: the historical points, exam findings, and any diagnostic results supporting the discharge/admit diagnosis, the presence of at least one elevated blood pressure reading (>120/80) during this emergency department visit, lab results, radiology results, the need to transfer to another facility, for higher level of care, [facility] does not immediately have the required specialist. 03/18 11:18 Order name: Basic Metabolic Panel; Complete Time: 12:08 bp 03/18 11:18 Order name: CBC with Diff; Complete Time: 12:05 bp 03/18 11:18 Order name: D-Dimer; Complete Time: 12:05 bp 03/18 11:18 Order name: LFT's; Complete Time: 12:08 bp 03/18 11:18 Order name: Magnesium; Complete Time: 12:08 bp 03/18 11:18 Order name: NT PRO-BNP; Complete Time: 12:08 bp 03/18 11:18 Order name: PT-INR; Complete Time: 12:05 bp 03/18 11:18 Order name: Troponin HS; Complete Time: 12:08 bp 03/18 11:18 Order name: XRAY Chest (1 view); Complete Time: 12:11 bp 03/18 11:18 Order name: EKG; Complete Time: 11:19 bp 03/18 13:04 Order name: EKG; Complete Time: 13:05 sreedhar 03/18 11:18 Order name: Cardiac monitoring; Complete Time: 11:37 bp 03/18 11:18 Order name: EKG - Nurse/Tech; Complete Time: 11:37 bp 03/18 11:18 Order name: IV Saline Lock; Complete Time: :37 bp 03/18 11:18 Order name: Labs collected and sent; Complete Time: 11:37 bp 03/18 11:18 Order name: O2 Per Protocol; Complete Time: :37 bp 03/18 11:18 Order name: O2 Sat Monitoring; Complete Time: :37 bp 03/18 13:04 Order name: EKG - Nurse/Tech; Complete Time: 13:17 sreedhar EC:01 Rate is 240 beats/min. Rhythm is regular. QRS [place] is Normal. [place] interval is shortened sreedhar at 0 msec. QRS interval is prolonged. QT interval is shortened at 0 msec. No Q waves. 12:09 Rate is 103 beats/min. Rhythm is regular. QRS [place] is Normal. [place] interval is normal. sreedhar QRS interval is normal. QT interval is normal. No Q waves. T waves are Normal. No ST changes noted. Clinical impression: Abnormal EKG without significant change. Interpreted by me. Reviewed by me. 13:17 Rate is 84 beats/min. Rhythm is regular. QRS [place] is Normal. [place] interval is normal. QRS sreedhar interval is normal. QT interval is normal. No Q waves. T waves are Normal. No ST changes noted. Clinical impression: Abnormal EKG without significant change. Interpreted by me. Reviewed by me. Administered Medications: 11:32 Drug: Ondansetron IVP 4 mg Route: IVP; Site: left forearm; bp 12:41 Follow up: Response: No adverse reaction bp 11:32 Drug: fentaNYL (PF) IVP 50 mcg Route: IVP; Site: left forearm; bp 12:42 Follow up: Response: No adverse reaction bp 11:33 Drug: Midazolam IVP or IV 4 mg Route: IVP; Site: left forearm; bp 12:42 Follow up: Response: No adverse reaction bp 11:39 Drug: Magnesium Sulfate IVPB 2 grams Route: IVPB; Infused Over: 10 mins; Site: left ko1 forearm; 12:42 Follow up: IV Status: Completed infusion; IV Intake: 100ml bp 11:40 Drug: amiodarone IVPB 150 mg Volume: 100 ml; Route: IVPB; Infused Over: 10 mins; Site: ko1 left forearm; 12:41 Follow up: IV Status: Completed infusion bp 11:45 Drug: Famotidine IVP 20 mg Route: IVP; Site: left forearm; ko1 12:41 Follow up: Response: No adverse reaction bp 11:56 Drug: Aspirin PO Chewable Tablet 81 mg Route: PO; ko1 12:41 Follow up: Response: No adverse reaction bp 11:56 Drug: amiodarone IVPB 900 mg, D5W IV 500 ml Route: IVPB; Rate: 1 mg/min; Site: left ko1 forearm; 14:13 Follow up: IV Status: Infusion continued upon transfer bp 12:24 Drug: Insulin Regular Human IVP 10 units {Co-Signature: ko1 (Promise Cam RN).} Route: bp IVP; Site: left forearm; 12:42 Follow up: Response: No adverse reaction bp 12:24 Drug: Insulin Glargine Sub-Q 30 units Route: Sub-Q; Site: right upper abdomen; bp 12:42 Follow up: Response: No adverse reaction bp 12:36 Drug: Potassium PO Effervescent Tablet 25 mEq Route: PO; bp 12:42 Follow up: Response: No adverse reaction bp 12:41 Drug: fentaNYL (PF) IVP 50 mcg Route: IVP; Site: left forearm; bp 12:42 Follow up: Response: No adverse reaction bp 13:16 Drug: morphine IVP or IV 4 mg Route: IVP; Infused Over: 4 mins; Site: right forearm; bp 14:12 Follow up: Response: No adverse reaction bp 13:18 Drug: Heparin (AL-Bolus No thrombolytic) - HEParin IVP 60 units/kg {Co-Signature: ko1 bp (Promise Cam RN).} Route: IVP; Site: right forearm; 14:13 Follow up: Response: No adverse reaction bp 13:18 Drug: Ondansetron IVP 4 mg Route: IVP; Site: left forearm; bp 14:12 Follow up: Response: No adverse reaction bp 13:19 Drug: Heparin (AL Drip) - (D5W IV 500 ml, [place] [address] units) 12 units/kg/hr bp {Co-Signature: ko1 (Promise Cam RN).} Route: IV; Rate: calculated rate; Site: right forearm; 14:13 Follow up: IV Status: Infusion continued upon transfer bp 13:27 Drug: Clopidogrel PO 300 mg Route: PO; bp 14:12 Follow up: Response: No adverse reaction bp Disposition Summary: 03/18/23 12:08 Transfer Ordered Transfer Location: Other Acute Care Facility sreedhar Reason: Higher level of care sreedhar Condition: Serious sreedhar Problem: new sreedhar Symptoms: have improved sreedhar Accepting Physician: TO DR BRIZUELA AND DR SUGGS(03/18/23 14:23) bp Diagnosis - Ventricular tachycardia sreedhar - Chest pain, unspecified sreedhar - Essential (primary) hypertension sreedhar - Tobacco abuse counseling sreedhar - Tobacco use sreedhar - Type 2 diabetes mellitus with hyperglycemia sreedhar - Unspecified kidney failure - INSUFFICENCY sreedhar - Elevated white blood cell count sreedhar Forms: - Medication Reconciliation Form sreedhar - SBAR form sreedhar Signatures: Dispatcher [employer] EDVijay De Souza MD MD cha Mickail, Joel, PA PA jmm Peltier, Brian, RN RN bp Promise Cam RN RN ko1 Promise Cam RN ko1 Corrections: (The following items were deleted from the chart) 12: 12:[address]RIZUELA AND [address] IFEANYI eli cha 12:11 12:[address]RIZUELA AND [address] IFEANYI eli cha 14:23 12:[address]UELA AND [address] IFEANYI eli bp
--- NOTE | 2023-03-18 12:08 | ER ---
Nurse's Notes [facility] Name: Charan Restrepo Jr Age: 52 yrs Sex: Male : 1970 Arrival Date: 03/18/2023 Time: 11:13 Bed 3 Private MD: Diagnosis: Ventricular tachycardia;Chest pain, unspecified;Essential (primary) hypertension;Tobacco abuse counseling;Tobacco use;Type 2 diabetes mellitus with hyperglycemia;Unspecified kidney failure-INSUFFICENCY;Elevated white blood cell count Presentation: 03/18 11:14 Chief complaint: Patient states: Pt states he was in the shower, felt lightheaded "i nj1 felt like i was racing a marathon" and next thing he knows he was down in the bathtub "i fell". CO chest pain, onset 15 min ago. 11:14 Coronavirus screen: Vaccine status: Patient reports receiving the 2nd dose of the covid nj1 vaccine. Ebola Screen: Patient denies travel to an Ebola-affected area in the 21 days before illness onset. Initial Sepsis Screen: Does the patient meet any 2 criteria? HR > 90 bpm. No. Patient's initial sepsis screen is negative. Does the patient have a suspected source of infection? No. Patient's initial sepsis screen is negative. Risk Assessment: Do you want to hurt yourself or someone else? Patient reports no desire to harm self or others. Note Pt taken via wheelchair to assigned room for triage and assessment. Pt states he needs to have a bowel movement and cannot wait for us to do vital signs neither ekg. Pt taken to restroom, this RN awaiting with patient. Onset of symptoms was March 18, 2023. 11:14 Method Of Arrival: Ambulatory [facility] 11:14 Acuity: MARTY 2 nj1 11:25 Coronavirus screen: At this time, the client does not indicate any symptoms associated bp with coronavirus-19. Ebola Screen: No symptoms or risks identified at this time. 11:25 Method Of Arrival: Wheelchair bp 11:25 Chief complaint: Patient states: CHEST PAIN, SOB. Initial Sepsis Screen: Does the bp patient meet any 2 criteria? HR > 90 bpm. No. Patient's initial sepsis screen is negative. Does the patient have a suspected source of infection? No. Patient's initial sepsis screen is negative. Risk Assessment: Do you want to hurt yourself or someone else? Patient reports no desire to harm self or others. 11:25 Acuity: MARTY 1 bp Triage Assessment: 11:25 General: Appears distressed, Behavior is cooperative, appropriate for age, anxious. bp Pain: Complains of pain in chest. EENT: No deficits noted. Neuro: No deficits noted. Cardiovascular: Rhythm is ventricular tachycardia. 11:25 Respiratory: Reports shortness of breath. GI: No signs and/or symptoms were reported bp involving the gastrointestinal system. : No signs and/or symptoms were reported regarding the genitourinary system. Derm: Skin is diaphoretic. Musculoskeletal: No deficits noted. Historical: - Allergies: 11:25 No Known Drug Allergies; bp - Home Meds: 11:25 clopidogrel 75 mg Oral tab 1 tab once daily [Active]; Lipitor Oral [Active]; bp - PMHx: 11:25 Hypertension; Hyperlipidemia; bp - Immunization history:: Adult Immunizations up to date. - Social history:: Smoking status: Patient reports the use of cigarette tobacco products, smokes two packs cigarettes per day. Screenin:[address] [facility] ED Fall Risk Assessment (Adult) History of falling in the last 3 months, bp including since admission No falls in past 3 months (0 pts). Abuse screen: Denies threats or abuse. Denies injuries from another. Nutritional screening: No deficits noted. Tuberculosis screening: No symptoms or risk factors identified. Assessment: 11:25 General: PT PLACED ON 2LNC, FULL MONITOR WITH DEFIB PADS. VTACH NOTED ON MONITOR. Pain: bp Complains of pain in chest Pain does not radiate. Pain began 30 min ago. 11:36 Reassessment: SYNC CARDIOVERSION AT 100 JOULES. VERBAL CONSENT, DEEMED EMERGENT. bp 12:15 Reassessment: TRANSFER INITIATED. bp 13:15 Reassessment: ATTEMPTED TO CALL REPORT TO [facility]. TRANSFER ON HOLD FOR ICU STAFF bp C/S WITH HOSPITAL EDUCATION COORDINATOR. 13:30 Reassessment: REPORT TO EVIN VIERA FOR [facility]. bp 14:07 Reassessment: LIFEFLIGHT AT B/S. bp Vital Signs: 11:18 BP 97 / 87; Pulse 243; Resp 29; Weight 90.72 kg; Height 5 ft. 10 in. ; Pain 10/10; nj1 11:25 Pulse 240; bp 11:45 BP 112 / 85; Pulse 93; Resp 19; Temp 98; Pulse Ox 94% on 2 lpm NC; bp 12:00 BP 137 / 83; Pulse 86; Resp 18; Pulse Ox 94% ; bp 12:15 BP 139 / 89; Pulse 84; Resp 17; Pulse Ox 96% ; bp 12:30 BP 151 / 93; Pulse 83; Resp 15; Pulse Ox 98% ; bp 13:00 BP 150 / 98; Pulse 87; Resp 16; Pulse Ox 94% ; bp 13:30 BP 153 / 90; Pulse 82; Resp 16; Pulse Ox 96% ; bp 14:00 BP 141 / 95; Pulse 86; Resp 17; Pulse Ox 97% ; bp 11:18 Body Mass Index 28.70 (90.72 kg, 177.8 cm) nj1 11:18 Pain Scale: Adult [facility] ED Course: 11:14 Patient arrived in ED. eb 11:18 Landen Zapata, RN is Primary Nurse. bp 11:24 Vijay Kapoor MD is Attending Physician. eb 11:25 Inserted saline lock: 20 gauge in left forearm, using aseptic technique. Blood bp collected. Oxygen administration via nasal cannula \\T\\ 2L/min. 11:25 Arm band placed on. bp 11:25 Patient has correct armband on for positive identification. Bed in low position. Call bp light in reach. Side rails up X2. Client placed on continuous cardiac and pulse oximetry monitoring. NIBP monitoring applied. 11:36 Assist provider with cardioversion (synchronized) for treatment of V tach with 100 bp joules Set up for procedure. Performed by Vijay Kapoor MD Monitored with desk monitor, pulse ox, Post procedure rhythm is sinus rhythm. Patient tolerated well. 11:37 Basic Metabolic Panel Sent. ko1 11:37 CBC with Diff Sent. ko1 11:37 D-Dimer Sent. ko1 11:37 LFT's Sent. ko1 11:37 Magnesium Sent. ko1 11:37 NT PRO-BNP Sent. ko1 11:37 PT-INR Sent. ko1 11:38 Troponin HS Sent. ko1 11:40 Triage completed. bp 11:46 initiated a transfer with Michelle from the [facility] transfer Center. eb 11:47 EKG done, by ED staff, reviewed by Vijay Kapoor MD. mm9 11:47 Placed in gown. Bed in low position. Warm blanket given. mm9 11:52 XRAY Chest (1 view) In Process Unspecified. EDMS 12:[address] Trammell the hospitalist certified personal trainer for [facility] with Dr. tadeo Kapoor for patient transfer consultation. 12:55 administrative approval given by Malina Hoffman Rn/ patient has been accepted to [facility] ICU room 7/ Dr. Jesusita Osuna has accepted the patient in transfer/ report to be called to [phone]. 14:13 Patient transferred, IV remains in place. bp Administered Medications: 11:32 Drug: Ondansetron IVP 4 mg Route: IVP; Site: left forearm; bp 12:41 Follow up: Response: No adverse reaction bp 11:32 Drug: fentaNYL (PF) IVP 50 mcg Route: IVP; Site: left forearm; bp 12:42 Follow up: Response: No adverse reaction bp 11:33 Drug: Midazolam IVP or IV 4 mg Route: IVP; Site: left forearm; bp 12:42 Follow up: Response: No adverse reaction bp 11:39 Drug: Magnesium Sulfate IVPB 2 grams Route: IVPB; Infused Over: 10 mins; Site: left ko1 forearm; 12:42 Follow up: IV Status: Completed infusion; IV Intake: 100ml bp 11:40 Drug: amiodarone IVPB 150 mg Volume: 100 ml; Route: IVPB; Infused Over: 10 mins; Site: ko1 left forearm; 12:41 Follow up: IV Status: Completed infusion bp 11:45 Drug: Famotidine IVP 20 mg Route: IVP; Site: left forearm; ko1 12:41 Follow up: Response: No adverse reaction bp 11:56 Drug: Aspirin PO Chewable Tablet 81 mg Route: PO; ko1 12:41 Follow up: Response: No adverse reaction bp 11:56 Drug: amiodarone IVPB 900 mg, D5W IV 500 ml Route: IVPB; Rate: 1 mg/min; Site: left ko1 forearm; 14:13 Follow up: IV Status: Infusion continued upon transfer bp 12:24 Drug: Insulin Regular Human IVP 10 units {Co-Signature: ko1 (Promise Cam RN).} Route: bp IVP; Site: left forearm; 12:42 Follow up: Response: No adverse reaction bp 12:24 Drug: Insulin Glargine Sub-Q 30 units Route: Sub-Q; Site: right upper abdomen; bp 12:42 Follow up: Response: No adverse reaction bp 12:36 Drug: Potassium PO Effervescent Tablet 25 mEq Route: PO; bp 12:42 Follow up: Response: No adverse reaction bp 12:41 Drug: fentaNYL (PF) IVP 50 mcg Route: IVP; Site: left forearm; bp 12:42 Follow up: Response: No adverse reaction bp 13:16 Drug: morphine IVP or IV 4 mg Route: IVP; Infused Over: 4 mins; Site: right forearm; bp 14:12 Follow up: Response: No adverse reaction bp 13:18 Drug: Heparin (AK-Bolus No thrombolytic) - HEParin IVP 60 units/kg {Co-Signature: ko1 bp (Promise Cam RN).} Route: IVP; Site: right forearm; 14:13 Follow up: Response: No adverse reaction bp 13:18 Drug: Ondansetron IVP 4 mg Route: IVP; Site: left forearm; bp 14:12 Follow up: Response: No adverse reaction bp 13:19 Drug: Heparin (AK Drip) - (D5W IV 500 ml, [place] [address] units) 12 units/kg/hr bp {Co-Signature: ko1 (Promise Cam RN).} Route: IV; Rate: calculated rate; Site: right forearm; 14:13 Follow up: IV Status: Infusion continued upon transfer bp 13:27 Drug: Clopidogrel PO 300 mg Route: PO; bp 14:12 Follow up: Response: No adverse reaction bp Medication: 11:25 VIS not applicable for this client. bp Intake: 12:42 IV: 100ml; Total: 100ml. bp Outcome: 12:08 ER care complete, transfer ordered by MD. eli 14:12 Transferred by helicopter bp 14:12 Condition: stable 14:12 Instructed on the need for transfer. 14:23 Patient left the ED. bp Signatures: Dispatcher [employer] Vijay Lynch MD MD cha Peltier, Brian, RN RN Jodie Castano Kathy, RN RN ko1 Radha Larson mm9 Melany Peguero RN RN nj1 Promise Cam RN ko1 Corrections: (The following items were deleted from the chart) 12:16 11:14 BP 97 / 87; Pulse 243bpm; Resp 29bpm; 90.72 kg; Height 5 ft. 10 in.; BMI: 28.7; nj1 Pain 07/31, Adult; nj1
--- NOTE | 2023-03-18 12:09 | RAD REPORT ---
EXAM DESCRIPTION: RAD - Chest Single View - 03/18/2023 11:50 am CLINICAL HISTORY: CHEST PAIN COMPARISON: <Comparisons> FINDINGS: Lines: None. Lungs: No evidence of edema or pneumonia. Pleural: No significant pleural effusions or pneumothorax. Cardiac: Cardiomegaly. Mediastinum: Within normal limits. Bones: No acute fractures. Other: None IMPRESSION: No acute cardiopulmonary disease.
[2023-03-18] MEDS ORDERED: INSULIN GLARGINE 100 UNIT/ML SQ ONE (12:28)
[2023-03-18] MEDS ORDERED: INSULIN -REGULAR HUMAN 50 UNIT/0.5 ML ML ONE (12:29)
[2023-03-18] MEDS ORDERED: POTASSIUM 25 MEQ EFFERV TAB ONE (12:42)
[2023-03-18] MEDS ORDERED: HEPARIN/D5W 25,000 UNIT/500 ML BAG IV ONE (12:56)
[2023-03-18] MEDS ORDERED: HEPARIN 5000 UNIT/ML 1 ML VIAL ONE (12:56)
[2023-03-18] MEDS ORDERED: MORPHINE 4 MG/ML SYR ONE (13:20)
[2023-03-18] MEDS ORDERED: CLOPIDOGREL 75 MG TABLET ONE (13:33)
[2023-03-18 14:35] VITALS: TEMP 98
[2023-03-18 14:45] VITALS: BP 141/95; O2SAT 97
--- NOTE | 2023-03-21 07:16 | EKG ---
Test Date: 2023-03-18 Test Time: 11:21:58 Security Officers And Guards: VIKRAM MEASUREMENT RESULTS: Intervals: Rate: 246 NE: QRSD: 162 QT: 230 QTc: 465 [place]: P: NE: QRS: 269 T: -90 INTERPRETIVE STATEMENTS: Suspect arm lead reversal, interpretation assumes no reversal Wide QRS tachycardia Right ventricular hypertrophy Left ventricular hypertrophy with QRS widening Inferior infarct, age undetermined Anterolateral infarct, possibly acute ACUTE [place] / STEMI Abnormal ECG Compared to ECG 12/01/2019 01:46:39 Wide-QRS tachycardia now present Right ventricular hypertrophy now present Left ventricular hypertrophy now present Sinus rhythm no longer present Myocardial infarct finding still present Electronically Signed On 03-21-23 07:07:48 CDT by Ruben Pacheco
--- NOTE | 2023-03-21 07:16 | EKG ---
Test Date: 2023-03-18 Test Time: 11:24:11 Electronic Warfare Technician: VIKRAM MEASUREMENT RESULTS: Intervals: Rate: 243 [place]: QRSD: 164 QT: 234 QTc: 470 [place]: P: [place]: QRS: 268 T: 269 INTERPRETIVE STATEMENTS: Suspect arm lead reversal, interpretation assumes no reversal Wide QRS tachycardia Right ventricular hypertrophy Left ventricular hypertrophy with QRS widening Inferior infarct, age undetermined Anterolateral infarct, possibly acute ACUTE [place] / STEMI Abnormal ECG Compared to ECG 03/18/2023 11:21:58 No significant changes Electronically Signed On 03-21-23 07:07:47 CDT by Ruben Pacheco
--- NOTE | 2023-03-21 14:41 | EKG ---
Test Date: 2023-03-18 Test Time: 11:37:48 Day Care Attendant: VIKRAM MEASUREMENT RESULTS: Intervals: Rate: 103 AK: 172 QRSD: 112 QT: 356 QTc: 466 [place]: P: 48 AK: 172 QRS: -79 T: 94 INTERPRETIVE STATEMENTS: Sinus tachycardia Left anterior fascicular block Anterolateral infarct, possibly acute ACUTE [place] / STEMI Abnormal ECG Compared to ECG 03/18/2023 11:24:11 Left anterior fascicular block now present Wide-QRS tachycardia no longer present Right ventricular hypertrophy no longer present Left ventricular hypertrophy no longer present Myocardial infarct finding still present Electronically Signed On 03-21-23 14:38:39 CDT by Pepe Rodriguez
--- NOTE | 2023-03-21 14:41 | EKG ---
Test Date: 2023-03-18 Test Time: 13:08:01 Telecommunications Project Manager: BP MEASUREMENT RESULTS: Intervals: Rate: 84 [place]: 162 QRSD: 108 QT: 390 QTc: 460 [place]: P: 59 MI: 162 QRS: -81 T: 85 INTERPRETIVE STATEMENTS: Normal sinus rhythm Left axis deviation Inferior infarct, age undetermined Anterolateral infarct, possibly acute ACUTE [place] / STEMI Abnormal ECG Compared to ECG 03/18/2023 11:37:48 Left-axis deviation now present Sinus tachycardia no longer present Left anterior fascicular block no longer present Myocardial infarct finding still present Electronically Signed On 03-21-23 14:38:33 CDT by Pepe Rodriguez
== END 2023-03-18 14:23 ==
LOC: ER 11:13
DX: I47.20 Ventricular tachycardia, unspecified (principal); I10 Essential (primary) hypertension; E11.65 Type 2 diabetes mellitus with hyperglycemia; D72.829 Elevated white blood cell count, unspecified; N19 Unspecified kidney failure; E78.5 Hyperlipidemia, unspecified; Z72.0 Tobacco use; Z71.6 Tobacco abuse counseling
CPT/HCPCS: 92960; 93005 ×2; 85025; 80048; 36415; 83735; 85610; 85379; 80076; 84484; 83880; 71045; 96372; 99291; J1815; J1644; J3475; J0282 ×2; J2250; J3010 ×2; J2405; J7030

== ENCOUNTER 2023-04-27 15:47 | Emergency (ER) | payer BC, OTHER ==
--- OUTSIDE RECORDS SUMMARY | 2023-04-27 15:53 | XMS REPORT | Continuity of Care Document ---
:1970 Author Organization [facility] t Address [address] [facility] [place] [address] Care Team Providers Name Role Phone Carmen Spencer Attending Clinician Unavailable Montez Jernigan Attending Clinician Unavailable Montez Jernigan Admitting Clinician Unavailable Payers Payer Name Policy Type Policy Number Effective Date Expiration Date S ource Problems This patient has no known problems. Allergies, Adverse Reactions, Alerts Allergy Allergy Status Severity Reaction(s) Onset Inactive Treating Comm ents Source Name Type Date Date Clinician No Known DA Active [facility] Allergie 03-18 00:00: [address] Medications This patient has no known medications. Procedures Procedure Date / Time Performed Performing Clinician Rei leobardo [id number] 2023-03-18 00:00:00 [facility] [id number] 2023-03-18 00:00:00 [facility] [id number] 2023-03-18 00:00:00 [facility] [id number] 2023-03-18 00:00:00 [facility] [id number] 2023-03-18 00:00:00 [facility] [id number] 2023-03-18 00:00:00 [facility] [id number] 2023-03-18 00:00:00 [facility] Encounters Start End Encounter Admission Attending Care Care Encounter Source Date/Time Date/Time Type Type Clinicians Facility Department ID 2022-11-07 [facility] [id number] Common 07:49:00 Carmen [id number] [facility] 2022-10-17 [facility] [id number] Common 15:16:02 Carmen [facility] 2022-10-11 [facility] [id number] Common 12:49:02 Carmen [id number] [facility] 2022-10-10 Outpatient DAILY Spencer [facility] [id number] Common 10:34:05 Carmen [facility] 2023-03-18 2023-03-20 Inpatient PATTIE Kay [facility] [id number] [facility] 14:57:00 16:25:[address] Results Test Description Test Time Test Comments Results Result Comments Source GLUCOSE BEDSIDE TESTING 2023-03-20 10:20:00 Test Item Value Reference Range Interpretation Comme nts GLUCOSE BEDSIDE TESTING (test code = GLUBED) 215 MG/DL 60-99 H BASIC METABOLIC [id number] 07:35:00 Test Item Value Reference Range Interpretation Comments SODIUM (test code = 134 MMOL/L 137-145 L NA) POTASSIUM (test code 3.6 MMOL/L 3.5-5.1 N = K) CHLORIDE (test code 103 MMOL/L 98-107 N = CL) CARBON DIOXIDE (test 26 MMOL/L 22-30 N code = CO2) GLUCOSE (test code = 152 MG/DL 74-106 H GLU) BLOOD UREA NITROGEN 20 MG/DL 9-20 N (test code = BUN) GLOMERULAR > 60 The Glomerular FILTRATION RATE Filtration R ate is a (test code = GFR) calculated parameterbased on serum Creatinine, pat ient age and sex. GFR va luesless than 60 mL/min/ 1.73 square meters a re indicative ofCh ronic Kidney Disease. Values less than 15 mL/min/1.73squa re meters indicate Kidney failure. The calculation for GFR is based on the CK D-EPI (2020) calculat ion. This formulais race indifferent and is the recommended for maryjane for GFRby the Nat nal Kidney Foundati on for Adults.The GFR will not calculate if th e sex is unknown or if thepatient's ag e is <18 years. CREATININE (test 0.80 MG/DL 0.66-1.25 N code = CREAT) CALCIUM (test code = 8.6 MG/DL 8.4-10.2 N CA) [id number] 07:35:00 Test Item Value Reference Range Interpretation Comments MAGNESIUM (test code = MAG) 2.0 MG/DL 1.6-2.3 N GLUCOSE BEDSIDE [id number] 06:26:00 Test Item Value Reference Range Interpretation Comments GLUCOSE BEDSIDE TESTING (test code 187 MG/DL 60-99 H = GLUBED) GLUCOSE BEDSIDE [id number] 04:13:00 Test Item Value Reference Range Interpretation Comments GLUCOSE BEDSIDE TESTING (test code 149 MG/DL 60-99 H = GLUBED) GLUCOSE BEDSIDE [id number] 23:41:00 Test Item Value Reference Range Interpretation Comments GLUCOSE BEDSIDE TESTING (test code 162 MG/DL 60-99 H = GLUBED) GLUCOSE BEDSIDE [id number] 21:11:00 Test Item Value Reference Range Interpretation Comments GLUCOSE BEDSIDE TESTING (test code 203 MG/DL 60-99 H = GLUBED) GLUCOSE BEDSIDE [id number] 19:59:00 Test Item Value Reference Range Interpretation Comments GLUCOSE BEDSIDE TESTING (test code 219 MG/DL 60-99 H = GLUBED) GLUCOSE BEDSIDE [id number] 19:59:00 Test Item Value Reference Range Interpretation Comments GLUCOSE BEDSIDE TESTING (test code 253 MG/DL 60-99 H = GLUBED) GLUCOSE BEDSIDE [id number] 19:58:00 Test Item Value Reference Range Interpretation Comments GLUCOSE BEDSIDE TESTING (test code 247 MG/DL 60-99 H = GLUBED) HEPATIC FUNCTION [id number] 11:51:00 Test Item Value Reference Range Interpretation Comments TOTAL PROTEIN 6.5 G/DL 6.2-7.6 N [facility] Clinical Diagnostic (test code = has made us isela re of PROT) newinformation regarding the potential i nterference ofEltrombopag ( a bone marrow stimulan t used to treatthrombocyt onmenia and aplastic anemia ) with specific assays on the Vitros 5600 of which Total Protein is one of thoseassays per formed in our lab.Interfe rence testing perform ed at Ortho determined that Eltrombopag does interfere with Vitros Total Protein asfollowsEltrom bopag Interference fo r Vitros Product Total Protein:======= Eltrombopag Max Observed Av g. BiasConcentrati on Concentration Concentration== ==== 2.5 mg/dl 6.0 g/dl +0.41 +0.34 3.5 mg/dl 6.0 g /dl +0.50 +0.45 5 mg/dl 6 .0 g/dl +0.73 +0.65 2. 5 mg/dl 8.0 g/dl +0.44 +0.4 1 3.5 mg/dl 8.0 g/dl +0.55 +0.52 5 mg/dl 8.0 g/dl +0.86 +0.77 ALBUMIN (test 3.8 G/DL 3.5-5.0 N code = ALB) BILIRUBIN TOTAL 0.8 MG/DL 0.2-1.3 Eltrombopag Interference (test code = for Vitros Prod uct TBil, BILT) BuBc: Assa y Eltrombopag Nita lyte/ Max Observed Avg. B ias Concentration C oncentration Concentration== ====TBil 7mg/dl TBil/ 1. 2mg/dl +0.23mg.dl +0.2 0mg/dlBuBc 3.5mg/dl Bu/0.8 mg/dl +0.25mg/dl +0.2 4mg/dlBuBc 7 mg/dl Bu/14.2mg /dl +0.38mg/dl +0.2 5mg/dlBuBc 5mg/dl Bc/0mg/d l +0.25mg/dl +0.15mg/dlBuBc 3.5mg/dl Bc/2.8mg/dl +0. 25mg/dl +0.23mg/dl BILIRUBIN DIRECT 0.0 MG/DL 0.0-0.3 N Eltrombopag Interference (test code = for Vitros Prod uct TBil, BILD) BuBc: Assa y Eltrombopag Nita lyte/ Max Observed Avg. B ias Concentration C oncentration Concentration== ====TBil 7mg/dl TBil/ 1. 2mg/dl +0.23mg.dl +0.2 0mg/dlBuBc 3.5mg/dl Bu/0.8 mg/dl +0.25mg/dl +0.2 4mg/dlBuBc 7 mg/dl Bu/14.2 mg/dl +0.38mg/dl +0.2 5mg/dlBuBc 5mg/dl Bc/0mg/d l +0.25mg/dl +0.15mg/dlBuBc 3.5mg/dl Bc/2.8mg/dl +0. 25mg/dl +0.23mg/dl SGOT/AST (test 73 UNITS/L 17-59 H code = AST) SGPT/ALT (test 49 UNITS/L 0-49 N code = ALT) ALKALINE 53 UNITS/L 38-126 N PHOSPHATASE (test code = ALKP) : add on to blood in labURINALYSIS [id number] 04:46:00 Test Item Value Reference Range Interpretation Comments UA COLOR (test code = COLU) YELLOW YELLOW UA APPEARANCE (test code = CLEAR CLEAR APPU) UA GLUCOSE DIPSTICK (test 1000 MG/DL NORMAL A code = DGLUU) UA BILIRUBIN DIPSTICK (test NEGATIVE MG/DL NEGATIVE code = BILU) UA KETONE DIPSTICK (test 5 MG/DL NEGATIVE code = KETU) UA SPECIFIC GRAVITY (test 1.020 1.003-1.030 N code = SGU) UA BLOOD DIPSTICK (test code NEGATIVE Oneal/mm3 NEGATIVE = ABDI) UA PH DIPSTICK (test code = 5.0 5.0-9.0 N CHI) UA PROTEIN DIPSTICK (test NEGATIVE MG/DL NEGATIVE code = PROU) UA UROBILINIOGEN DIPSTICK NORMAL MG/DL NORMAL (test code = URO) UA NITRITE DIPSTICK (test NEGATIVE NEGATIVE code = CESAR) UA LEUKOCYTE ESTERASE NEGATIVE /mm3 NEGATIVE DIPSTICK (test code = LEUU) SOURCE OF URINE: CLEAN CATCHGLYCOSYLATED HEMOGLOBIN [id number] 04:06:00 Test Item Value Reference Range Interpretation Comments GLYCOSYLATED 9.3 % 4.8-5.9 H Any condition t hat HEMOGLOBIN (HA1C) shortens e rythocyte (test code = survival or dec reasesmean GLYHGB) erythrocyte age (e.g., recovery from a cute blood loss,hemolytic anemia) will falsely lo wer HGBA1c resultsregardle ss of the method used. HG BA1c results from [facility] HbSS, HbCC, and HbSc must be interpreted with cautiongiven th e pathological pr ocesses, including anemia,increase d red cell turnover, trans fusion requirements, thatadversely i mpact HGBA1c as a mar ker of long-term glycemiccontrol . Alternative for ms of testing such as fructosaminesho uld be considered for these patients. MEAN BLOOD GLUCOSE 220 MG/DL 70-110 H (test code = MBG) BASIC METABOLIC [id number] 03:58:00 Test Item Value Reference Range Interpretation Comments SODIUM (test code = 135 MMOL/L 137-145 L NA) POTASSIUM (test code 4.2 MMOL/L 3.5-5.1 N = K) CHLORIDE (test code 105 MMOL/L 98-107 N = CL) CARBON DIOXIDE (test 25 MMOL/L 22-30 N code = CO2) ANION GAP (test code 9 MMOL/L 14-24 L = GAP) GLUCOSE (test code = 204 MG/DL 74-106 H GLU) BLOOD UREA NITROGEN 18 MG/DL 9-20 N (test code = BUN) GLOMERULAR > 60 The Glomerular FILTRATION RATE Filtration R ate is a (test code = GFR) calculated parameterbased on serum Creatinine, pat ient age and sex. GFR va luesless than 60 mL/min/ 1.73 square meters a re indicative ofCh ronic Kidney Disease. Values less than 15 mL/min/1.73squa re meters indicate Kidney failure. The calculation for GFR is based on the CK D-EPI (2020) calculat ion. This formulais race indifferent and is the recommended for maryjane for GFRby the Natio nal Kidney Foundati on for Adults.The GFR will not calculate if th e sex is unknown or if thepatient's ag e is <18 years. CREATININE (test 0.70 MG/DL 0.66-1.25 N code = CREAT) CALCIUM (test code = 8.5 MG/DL 8.4-10.2 N CA) [id number] 03:58:00 Test Item Value Reference Range Interpretation Comments MAGNESIUM (test code = MAG) 2.3 MG/DL 1.6-2.3 N CBC W/AUTO [id number] 03:45:00 Test Item Value Reference Range Interpretation Comments WHITE BLOOD CELL (test code = 15.9 K/MM3 3.8-9.8 H WBC) RED BLOOD CELL (test code = 5.94 M/MM3 3.95-5.67 H RBC) HEMOGLOBIN (test code = HGB) 17.2 G/DL 12.4-16.7 H HEMATOCRIT (test code = HCT) 50.2 % 35.9-49.5 H MEAN CELL VOLUME (test code = 85 fL 81.7-96.1 N MCV) MEAN CELL HGB (test code = MCH) 29.0 pg 27.6-33.2 N MEAN CELL HGB CONCETRATION 34.3 % 32.9-35.5 N (test code = MCHC) RED CELL DISTRIBUTION WIDTH 13.4 % 12.1-15.2 N (test code = RDW) PLATELET COUNT (test code = 210 K/MM3 129-368 N PLT) MEAN PLATELET VOLUME (test code 10.5 fl 7.4-10.4 H = MPV) NEUTROPHIL % (test code = NT%) 84.6 % 43-75 H IMMATURE GRANULOCYTE % (test 0.8 % 0.0-2.0 N code = IG%) LYMPHOCYTE % (test code = LY%) 8.0 % 14-44 L MONOCYTE % (test code = MO%) 5.3 % 4-13 N EOSINOPHIL % (test code = EO%) 0.8 % 0-6 N BASOPHIL % (test code = BA%) 0.5 % 0-2 N NUCLEATED RBC % (test code = 0.0 % 0-1.0 N NRBC%) NEUTROPHIL # (test code = NT#) 13.48 K/mm3 2.0-7.6 H IMMATURE GRANULOCYTE # (test 0.12 x10 3/uL 0-0.03 H code = IG#) LYMPHOCYTE # (test code = LY#) 1.28 K/mm3 1.0-3.8 N MONOCYTE # (test code = MO#) 0.84 K/mm3 0.1-0.8 H EOSINOPHIL # (test code = EO#) 0.12 K/mm3 0.0-0.2 N BASOPHIL # (test code = BA#) 0.08 K/mm3 0.0-0.2 N NUCLEATED RBC # (test code = 0.00 K/mm3 0.0-0.1 N NRBC#) [id number] 01:08:00 Test Item Value Reference Range Interpretation Comments TROPONIN-I (test 3.570 NG/ML 0.012-0.033 CALLED TO Garrett SHARPE A & code = TROPI) READBACK ON AT 0107 BY Barrett Wang [id number] 22:08:00 Test Item Value Reference Range Interpretation Comments TROPONIN-I (test 3.700 NG/ML 0.012-0.033 HH CALLED TO Garrett FELDMAN. & code = TROPI) READBACK ON AT 2202 BY Dennis Umana GLUCOSE BEDSIDE [id number] 20:24:00 Test Item Value Reference Range Interpretation Comments GLUCOSE BEDSIDE TESTING (test code 211 MG/DL 60-99 H = GLUBED) LIPOPROTEIN LDL [id number] 19:36:00 Test Item Value Reference Range Interpretation Comments LIPOPROTEIN LDL DIRECT 112 mg/dL 100-129 N ===== (test code = LDLDIR) ======= ====R eference Interv al: mg/dL mmol/L--------- ----- ----- ----- -----Optimal <1 00 <2.6Near/above optimal 100-129 2.6-3.3Borderli ne High 130-159 3.4-4.1High 160 -189 4.1-4.9Very Hig h >=190 >=4.9==== ===== This LDL result is a direct measurement.=== ===== = [id number] 19:36:00 Test Item Value Reference Range Interpretation Comments TROPONIN-I (test 3.780 NG/ML 0.012-0.033 HH CALLED TO Chao Burger& code = TROPI) READBACK ON AT 1849 BY Dennis Umana - XR CHEST [id number] 19:06:00 [facility] 1970 Sex: M Patient Name: CHARAN RESTREPO Unit No: [id number] EXAMS: CPT CODE: [id number] XR CHEST 1V 49800 LOCATION: Q15 HISTORY: 52-year-old male, history of chest pain COMMENT: A frontal chest radiograph was obtained at the bedside at 6:12 p.m. The lungs are clear and well-aerated. The cardiac silhouette, jennifer, and mediastinum are within normal limits. The skeleton is intact, and the surrounding soft tissues are unremarkable. IMPRESSION: Unremarkable portable examination of the chest. at 1906 Reported and signed by: Hima Jaime M.D. CC: Jesusita Osuna MD; Suzette Wang NP Technologist: River Ann RT Transcrpt Date/Tm/Trnsp: 03/18/2023 (1905) [id number] Orig Print D/T: S: 03/18/2023 (1908) [facility] NAME: CHARAN RESTREPO [address] [address] PHYS: [email or web address] - [place] [address] : 1970 AGE: 52 SEX: M LOC: Z.I13 A PHONE #: [phone] EXAM DATE: 03/18/2023 STATUS: ADM IN FAX #: [phone] RADIOLOGY NO: PAGE 1 Signed ReportNT PRO-BRAIN NATRIURETIC PEPTI 2023-03-18 18:43:00 Test Item Value Reference Range Interpretation Comments NT PRO-BRAIN 538.0 pg/mL INTERPRETATION OF NATRIURETIC PEPTI RESULTS Re sults of (test code = PROBNP) this te st should be used in accorda nce with the approp riate clinical guidel bianca and in conjunct ion with clinical presentation an d other diagnostic test s. Clinical guidel bianca recommend using natriuretic pep tides in both Emergen cy Department (ED) and outpatient sett ings for diagnosis o r exclusion of he art failure (HF). [facility] performance of the VITROS NT-proBN P II test was evalua lidya separately in e ach of these settings using published age-independent and age-dependent c utoffs. EMERGENCY DEPAR TMENT SETTINGS/INPATI ENT: For patients [facility] settings with a cute or worsening dyspn ea and clinical suspic ion of HF, the VITROS NT-proBNP II te st results should be interpreted as indicated in e table below. ======= ======= =NT-pro BNP II Test Age Group Interpretation of Results Results (pg/mL) ======= ======= =<300 All Negative: H eart Failure Unlikely------- ------- ------- ------- -->=300 to <450 22-<50 Cerrato Zone: Resu lt >=300 to <900 5 0-<75 Indeterminate > =300 to <1800 >=75 - Co nsider other causes of NT-proBNP eleva tion ------- ------- ->=450 22-<50 >=900 50 -<75 Positive: Heart Failure likely >=1800 >=75 ------- ------- -OUTPAT IENT SETTINGS: In the outpatient sett ings, the optimal use of natriuretic pep tides is to exclude H F. Therefore, a lo wer rule-out cutoff which increases sensi tivity and negative predictive valu e is needed, as patti ents can present wit h limited, less a cute HF symptoms. For ambulatory patti ents presenting to outpatient faci lities with clinical suspicion of HF not previously diag nosed and at least on e sign, symptom or risk factor for HF, the VITROSNT-proBNP II test results sh ould be interpreted as indicatedin the table below. ======= ======= =NT-pro BNP II Test Age Group Interpretation of Results Results (pg/mL) ======= ======= =<125 All Negative: H eart Failure Unlikel y ------- ------- ->=125 All Consider He art Failure as well as other causes* o f NT-proBNP eleva tion. ------- ------- - GLYCOSYLATED HEMOGLOBIN [id number] 18:36:00 Test Item Value Reference Range Interpretation Comments GLYCOSYLATED 9.1 % 4.8-5.9 H Any condition t hat HEMOGLOBIN (HA1C) shortens e rythocyte (test code = survival or dec reasesmean GLYHGB) erythrocyte age (e.g., recovery from a cute blood loss,hemolytic anemia) will falsely lo wer HGBA1c resultsregardle ss of the method used. HG BA1c results from [facility] HbSS, HbCC, and HbSc must be interpreted with cautiongiven th e pathological pr ocesses, including anemia,increase d red cell turnover, trans fusion requirements, thatadversely i mpact HGBA1c as a mar ker of long-term glycemiccontrol . Alternative for ms of testing such as fructosaminesho uld be considered for these patients. MEAN BLOOD GLUCOSE 214 MG/DL 70-110 H (test code = MBG) CREATINE KINASE (CK)2023-03-18 18:33:00 Test Item Value Reference Range Interpretation Comments CREATINE KINASE (CK) (test code = 274 UNITS/L 55-170 H CK) COMPREHENSIVE METABOLIC [id number] 18:30:00 Test Item Value Reference Range Interpretation Comments SODIUM (test code 134 MMOL/L 137-145 L = NA) POTASSIUM (test 4.1 MMOL/L 3.5-5.1 N code = K) CHLORIDE (test 106 MMOL/L 98-107 N code = CL) CARBON DIOXIDE 23 MMOL/L 22-30 N (test code = CO2) GLUCOSE (test 183 MG/DL 74-106 H code = GLU) BLOOD UREA 17 MG/DL 9-20 N NITROGEN (test code = BUN) GLOMERULAR > 60 The Glomerular Filtration FILTRATION RATE Rate is a ca lculated (test code = GFR) parameterb ased on serum Creatinine, pat ient age and sex. GFR values less than 60 mL/min/1.73 squ are meters are indicative ofChronic Kidney Disease. Values less than 15 mL/min/ 1.73square meters indicate Kidney failure. The ca lculation forGFR is based on the CKD-EPI (2020) calculation. This formulais race indifferent and is the recommended for maryjane for GFRby the [facility] Kidney Foundation for Adults.The GFR will not ca lculate if the sex is unkn own or if thepatient's ag e is <18 years. CREATININE (test 0.70 MG/DL 0.66-1.25 N code = CREAT) TOTAL PROTEIN 6.1 G/DL 6.2-7.6 L Ortho Clinical Diagnostic (test code = has made us isela re of PROT) newinformation regarding the potential i nterference ofEltrombopag ( a bone marrow stimulan t used to treatthrombocyt onmenia and aplastic anemia ) with specific assays on the Vitros 5600 of which Total Protein is one of thoseassays per formed in our lab.Interfe rence testing perform ed at Ortho determined that Eltrombopag does interfere with Vitros Total Protein asfollowsEltrom bopag Interference fo r Vitros Product Total Protein:======= Eltrombopag Max Observed Av g. BiasConcentrati on Concentration Concentration== ==== 2.5 mg/dl 6.0 g/dl +0.41 +0.34 3.5 mg/dl 6.0 g /dl +0.50 +0.45 5 mg/dl 6 .0 g/dl +0.73 +0.65 2.5 mg/dl 8.0 g/dl +0.44 +0.4 1 3.5 mg/dl 8.0 g/dl +0.55 +0.52 5 mg/dl 8.0 g/dl +0.86 +0.77 ALBUMIN (test 3.6 G/DL 3.5-5.0 N code = ALB) CALCIUM (test 8.0 MG/DL 8.4-10.2 L code = CA) BILIRUBIN TOTAL 0.7 MG/DL 0.2-1.3 N Eltrombopag Interference (test code = for Vitros Prod uct TBil, BILT) BuBc: Assa y Eltrombopag Nita lyte/ Max Observed Avg. B ias Concentration C oncentration Concentration== ====TBil 7mg/dl TBil/ 1. 2mg/dl +0.23mg.dl +0.2 0mg/dlBuBc 3.5mg/dl Bu/0.8 mg/dl +0.25mg/dl +0.2 4mg/dlBuBc 7 mg/dl Bu/14.2mg /dl +0.38mg/dl +0.2 5mg/dlBuBc 5mg/dl Bc/0mg/d l +0.25mg/dl +0.15mg/dlBuBc 3.5mg/dl Bc/2.8mg/dl +0. 25mg/dl +0.23mg/dl SGOT/AST (test 69 UNITS/L 17-59 H code = AST) SGPT/ALT (test 50 UNITS/L 0-49 H code = ALT) ALKALINE 59 UNITS/L 38-126 N PHOSPHATASE (test code = ALKP) [id number] 18:30:00 Test Item Value Reference Range Interpretation Comments PHOSPHOROUS (test code = PHOS) 3.8 MG/DL 2.5-4.5 N [id number] 18:30:00 Test Item Value Reference Range Interpretation Comments MAGNESIUM (test code = MAG) 2.3 MG/DL 1.6-2.3 N CBC W/O [id number] 18:09:00 Test Item Value Reference Range Interpretation Comments WHITE BLOOD CELL (test code = 14.9 K/MM3 3.8-9.8 H WBC) RED BLOOD CELL (test code = 5.96 M/MM3 3.95-5.67 H RBC) HEMOGLOBIN (test code = HGB) 17.3 G/DL 12.4-16.7 H HEMATOCRIT (test code = HCT) 49.6 % 35.9-49.5 H MEAN CELL VOLUME (test code = 83 fL 81.7-96.1 N MCV) MEAN CELL HGB (test code = MCH) 29.0 pg 27.6-33.2 N MEAN CELL HGB CONCETRATION 34.9 % 32.9-35.5 N (test code = MCHC) RED CELL DISTRIBUTION WIDTH 13.2 % 12.1-15.2 N (test code = RDW) PLATELET COUNT (test code = 238 K/MM3 129-368 N PLT) NEUTROPHIL # (test code = NT#) 11.29 K/mm3 2.0-7.6 H IMMATURE GRANULOCYTE # (test 0.19 x10 3/uL 0-0.03 H code = IG#) LYMPHOCYTE # (test code = LY#) 2.18 K/mm3 1.0-3.8 N MONOCYTE # (test code = MO#) 0.99 K/mm3 0.1-0.8 H EOSINOPHIL # (test code = EO#) 0.14 K/mm3 0.0-0.2 N BASOPHIL # (test code = BA#) 0.10 K/mm3 0.0-0.2 N NUCLEATED RBC # (test code = 0.00 K/mm3 0.0-0.1 N NRBC#) [id number] 16:25:00 Test Item Value Reference Range Interpretation Comments ACT-ISTAT (test code = ACTI) 275 SEC 74-137 H [id number] 15:43:00 Test Item Value Reference Range Interpretation Comments ACT-ISTAT (test code = ACTI) 281 SEC 74-137 H Notes Date/Time Note Provider Source 2023-03-20 15:29:00-00:00 [facility] ([facility]) Cardiology Progress Note REPORT#:[id number] REPORT STATUS: Signed DATE:03/20/23 TIME: 152 PATIENT: CHARAN RESTREPO UNIT #: [id number] [facility] AGE[facility] 52 SEX: M ATTEND: Darrell Jernigan MD ADM AUTHOR: Paco James MD * ALL edits or amendments must be made on the el ectronic/computer document * Subjective Chief complaint: stemi HPI: The patient is a 52-year-old female with a histo ry of hypertension, diabetes, heart failure reduced EF, CAD status post PCI to the LAD who presented for VT and STEMI status post PCI to the LAD again Free Text Subj Notes Free Text Subj Notes: No complaints today, patient is walked around e unit without symptoms Objective General VS/I O: 24 hour I O ending at 0700: 03/20 0700 03/19 1900 Intake Total 338.00 Output Total 1440 Balance -1102.00 Intake, IV 84.00 Intake, Oral 254 Number 1 Bowel Movements Number Voids 2 Output, Urine 1440 Vital Signs: Date Time Temp Pulse Resp B/P B/P Pulse O2 O2 F low FiO2 Mean Ox Delivery Rate 03/20 1018 88 16 132/87 102.1 97 03/20 0803 36.7 92 16 129/78 95.2 96 03/20 0409 36.9 85 18 122/80 94.0 96 03/20 0115 77 142/89 106.3 96 03/19 2337 36.8 93 18 144/88 106.8 96 03/19 1952 37.8 83 18 142/73 95.8 97 03/19 1736 77 24 96 03/19 1733 88 32 137/72 98 95 03/19 1703 71 23 127/76 97 99 03/19 1633 69 15 127/67 89 97 03/19 1630 73 17 96 03/19 1603 72 13 128/71 92 95 03/19 1600 69 11 96 03/19 1545 69 15 96 PATIENT WEIGHT: Weight (lb): 200 Weight (oz): 6.4 Weight (kg): 90.900 Physical Exam Cardiovascular: CV assessment: regular rate and rhythm, normal heart sounds Respiratory: clear to auscultation, no distress Lower extremity: LE assessment: no edema Diagnosis, Assessment Plan Consultants: cardiology Free Text DxA P Notes Free Text DxA P Notes: The patient is a 52 year old male with heart kasandra lure reduced EF, diabetes, hypertension, CAD status post PCI of the LAD #STEMI: Patient was found to have thrombotic andrew nosis in the proximal LAD as well as distal LAD stenosis both were treated wi th PCI x4. Patient no longer having chest pain Continue aspirin 81 mg Plavix 300 mg x 1 then Plavix 75 mg daily Continue atorvastatin 40 mg Farxiga 10 mg daily (can change back to patient 's Jardiance on discharge) #Heart failure reduced EF: P atient had a previous history of EF of 35% which had improved to 45%. LV gram did show EF of 25% afte r STEMI cont Entresto today cont metoprolol XL 25 mg daily cont Lasix 40 mg daily p.o. #V. tach: Patient had VT and was shocked in the ER. Arrhythmia likely due to acute ischemia. Continue to monitor Reassess patient in 3 months for possible AICD Electronically Signed by Paco James MD on 02/21 at 1532 RPT #:[id number] END OF REPORT 2023-03-20 08:44:00-00:00 [id number] [place] [address] PATIENT NAME: CHARAN RESTREPO ADMIT DATE: 03/18/23 ACCOUNT NO: [id number] ROOM NO: [facility] AGE: 52 REPORT TYPE: ELECTROCARDIOGRAM SEX: M ADMITTING PHYSICIAN:Montez Jernigan MD ATTENDING PHYSICIAN:Montez Jernigan MD Order: [id number] Test Reason : CAD/PA/VT Test Date/Time Stamp: SunMar 20 2023 08:44:19 Blood Pressure : / mmHG Vent. Rate : 093 BPM Atrial Rate : 093 BPM P-R Int : 156 ms QRS Dur : 092 ms QT Int : 356 ms P-R-T Axes : 058 -76 079 degree s QTc Int : 442 ms Normal sinus rhythm Possible Left atrial enlargement Left axis deviation Inferior infarct , age undetermined Anterolateral infarct (cited on or before ) Abnormal ECG When compared with ECG of 19-MAR-2023 05:44, Nonspecific T wave abnormality has replaced inve rted T waves in Lateral leads Confirmed by MARIANNA SCHILLING ([id number]) on 03/20/2023 5:50:59 PM Referred By: Self Referred Confirmed by:MARIANNA MARRERO at 6500 PATIENT NAME: CHARAN RESTREPO 387 2023-03-20 08:41:00-00:[address] [facility] ([facility]) Hospitalist Discharge Summary REPORT#:[id number] REPORT STATUS: Signed DATE:03/20/23 TIME: 840 PATIENT: CHARAN RESTREPO UNIT #: [id number] ROOM/BED: [address] : 69 AGE: 52 SEX: M ATTEND: Darrell Jernigan MD ADM AUTHOR: Davi Davison MD, MPH R2 * ALL edits or amendments must be made on the LE [employer]/computer document * Davi Davison 03/20/23 0841: General Information Problem List/A P: 1. STEMI (ST elevation myocardial infarction) 2. Hypertension 3. Hyperlipidemia 4. Coronary artery disease 5. Heart failure 6. History of heart artery stent 7. Wheezing 8. Tobacco use Date of admission: Observation Start Date: Date of admission: 03/18/23 Discharge date: 03/20/23 Admission diagnosis: STEMI Discharge diagnosis: STEMI Hospital course: 52 y/o M PMH HTN, HLD, CAD s /p 2 stents, HFpEF borderline presented to [facility] for chest pain. On 03/18 he h ad chest pain/dizziness, brief syncopal episode. He was brought to [facility] and was found to be in [facility] where he was given amiodarone and synchronized cardioversio n. He was transferred to this facility and was found to have V1/V2 ST elevation. LHC was performed w/ Dr. James 03/18 and 4 stents were placed. Echo showed EF 35- 39%. He is being d/nereida on antiplatelet rx, GDMT. Consultants: cardiology Pt. condition on discharge: improved Allergies: Allergies: No Known Allergies (Coded, 03/18/23) Objective VS/I O Last Documented: Result Date Time Pulse Ox 96 03/20 0803 B/P 129/78 03/20 0803 B/P Mean 95.2 03/20 0803 Temp 98.1 03/20 0803 Pulse 92 03/20 0803 Resp 16 03/20 0803 FiO2 21 03/19 0648 O2 Delivery Room air 03/19 0648 24 hour I O ending at 0700: 03/20 0700 03/19 1900 Intake Total 338.00 Output Total 1440 Balance -1102.00 Intake, IV 84.00 Intake, Oral 254 Number 1 Bowel Movements Number Voids 2 Output, Urine 1440 General appearance: alert, awake, oriented Head/Eyes: atraumatic, normocephalic ENT: moist mucosal membranes, normal dentition Neck: full range of motion, supple/no meningismu s Cardiovascular: normal capillary refill, normal heart sounds, regular rate rhythm Respiratory: aerating well, clear to auscultatio n, symmetric expansion, no distress Abdomen: non-tender, soft, no distention Extremities: moves all, normal capillary refill, normal range of motion Musculoskeletal: normal inspection, painless ran ge of motion Neuro/PUPPET ENGINEER: alert, oriented X 3, CNII-XII intact, normal speech Skin: dry, normal temperature Psychiatry: normal affect, normal judgment/insig ht Results Findings/Data: Laboratory Tests: 03/20 03/20 03/20 03/19 03/19 0631 0624 0412 2340 2109 Chemistry Sodium (137 - 145 MMOL/L) 134 L Potassium (3.5 - 5.1 MMOL/L) 3.6 Chloride (98 - 107 MMOL/L) 103 Carbon Dioxide (22 - 30 MMOL/L) 26 BUN (9 - 20 MG/DL) 20 Creatinine (0.66 - 1.25 MG/DL) 0.80 Glomerular Filtr Rate > 60 Glucose (74 - 106 MG/DL) 152 H POC Glucose (60 - 99 MG/DL) 187 H 149 H 162 H 2 03 H Calcium (8.4 - 10.2 MG/DL) 8.6 Magnesium (1.6 - 2.3 MG/DL) 2.0 03/19 03/19 1535 1118 Chemistry POC Glucose (60 - 99 MG/DL) 219 H 253 H Discharge Instructions PCP PCP follow-up: PCP: Jesusita Osuna MD Follow-up labs,proc, tx: SCHEDULE SLEEP STUDY Discharge to: Home/Self Care Additional Discharge Routines: PCP Follow-Up, Co nsultant Follow-Up Diet: Resume Home Diet/Feeds Activity: Resume Normal Activity Quality: Discharge Current Medications Current medication review: I attest that the foregoing medication list in t he medical record is true, accurate, and complete to the best of my knowled Montez Hernández 03/20/23 1635: Med Rec Med Rec Discharge meds: Start taking the following new medications: ATORVASTATIN (LIPITOR) 40 MG TAB 40 MILLIGRAM ORAL BEDTIME. Qty = 30 No Refills METOPROLOL SUCC XL (TOPROL XL) 25 MG TAB.SR.24H 25 MILLIGRAM ORAL DAILY. Qty = 30 No Refills Sacubitril/Valsartan (Entresto 24 MG-26 MG Table t) 24 MG-26 MG TAB 1 TABLET ORAL EVERY 12 HOURS. Qty = 60 No Refills ASPIRIN (ASPIRIN) 81 MG TAB.CHEW 81 MILLIGRAM ORAL DAILY. Qty = 30 No Refills EMPAGLIFLOZIN (JARDIANCE) 25 MG TAB 25 MILLIGRAM ORAL DAILY. Qty = 30 No Refills SPIRONOLACTONE (ALDACTONE) 25 MG TAB 25 MILLIGRAM ORAL EVERY MORNING. Qty = 30 No Refills CLOPIDOGREL (PLAVIX) 75 MG TAB 75 MILLIGRAM ORAL DAILY. Qty = 30 No Refills Attestations Teaching Physician Attestation F/U visit w/ resident: I saw the patient with the resident and . . . agree with the resident's findings and plan. Mr. Restrepo is feeling fairl y well today, no chest pain or shortness of breath. He is stable for discharge at this time. We will switch him from brilinta to plavix for cost reasons as he likely will not be able to fill the brilinta perscription. He has asked f or 1 week of [place], stating that he missed his pain management appointment on however after reviewing his prescriptions on the PDMP he filled a prescription for 56 tablets (28 day prescription) on 02/26 and should not run out of medication until 03/26/23, s o no further norco will be written at this time. He will follow up with PCP and cardiology as instructed. Electronically Signed by Davi Davison MD, MPH R2 on 0 03/20/23 at 1016 Electronically Signed by Montez Jernigan MD on at 1632 [facility] #:[id number] END OF REPORT 2023-03-19 14:01:00-00:00 THIS REPORT HAS BEEN APPENDED [facility] [id number] [place] [address] PATIENT NAME: DOUGLAS,CHARAN ADMIT DATE: 03/18/23 ACCOUNT NO: [id number] ROOM NO: Z.503 AGE: 52 REPORT TYPE: ECHOCARDIOGRAM SEX: M ADMITTING PHYSICIAN:Montez Jernigan MD ATTENDING PHYSICIAN:Montez Jernigan MD *[facility]* [address] [id number] Transthoracic Echocardiogram Patient: Charan Restrepo Study Date: 03/19/2023 BP: 134 / 73 Location: [facility] URN: [id number] : 1970 Age: 52 Height: 70 in / 177.8 cm Gender: M Weight: 199 .6 lb / 90.7 kg BMI/BSA: 28.7 kg/m 2 / 2.14 m 2 *Ordering Physician: * Marianna Schilling MD *Interpreting Physician: * Paco James MD *Security Services Specialist: * Gabby Crockett Indications: CAD / PA. Study data: Transthoracic echocardiogram. Proced ure: Transthoracic echocardiography was performed. Images were obta ined using a SoundSenasation cardiac ultrasound machine. Image quality was adequate. M-mode, complete 2D, complete spectral Doppler, and color Doppler. Lo cation: Bedside. Patient status: Inpatient. Patient room number: ICU 13. Study status: Routine. Findings Left ventricle: The cavity size is normal. Wall thickness is mildly to moderately increased. The estimated ejection fra ction is 35-39%. Regional wall motion abnormalities: Akinesis of the apical myocardium. PATIENT NAME: CHARAN RESTREPO [id number] Right ventricle: Well visualized. The cavity siz e is normal. Wall thickness is normal. Systolic function is normal . Ventricular septum: Well visualized. Left atrium: Well visualized. The atrium is norm al in size. Right atrium: Well visualized. The atrium is nor mal in size. Atrial septum: Well visualized. No defect or pat ent foramen ovale is identified. Aorta: The aorta is well visualized. Aortic valve: Well visualized. The valve is tril eaflet. The leaflets are normal thickness. There is no evidence of st enosis. There is no significant regurgitation. Mitral valve: Well visualized. The leaflets are normal thickness. There is no evidence of stenosis. There is mild regurgitation. Tricuspid valve: Well visualized. The leaflets a re normal thickness. There is no evidence of stenosis. There is physi ologic regurgitation. Pulmonic valve: Well visualized. The leaflets ar e normal thickness. There is no evidence of stenosis. There is no si gnificant regurgitation. Pericardium: There is no pericardial effusion. N o evidence of pleural fluid accumulation. Systemic veins: Inferior vena cava: The vessel is normal in size . Measurements Left ventricle Value Ref AFSANEH, LAX 5.3 cm 4.2 - 5.8 ESD, LAX 3.6 cm 2.5 - 4.0 ESD/bsa, LAX 1.7 cm/m 2 1.3 - 2.1 FS, LAX 32 % 25 - 43 PW, ED 1.0 cm 0.6 - 1.0 PW, ES 1.4 cm IVS/PW, ED 0.98 EF 60 % 52 - 72 E/e', avg, TDI 12 <=14 LVOT Value Ref Diam, S 2.44 cm Area 4.7 cm 2 Ventricular septum Value Ref IVS, ED 1.0 cm 0.6 - 1.0 IVS, ES 1.4 cm Right ventricle Value Ref AFSANEH, LAX 2.6 cm RVOT Value Ref Peak v, S 0.82 m/sec Peak grad, S 3 mm Hg Left atrium Value Ref AP dim, ES 3.49 cm 3.00 - PATIENT NAME: CHARAN RESTREPO 387 4.00 AP dim, ES MM 3.8 cm 3.0 - 4.0 LA/Ao root ratio, 1.05 MM Aortic valve Value Ref Leaflet sep, MM 2.47 cm Peak v, S 1.02 m/sec Mean v, S 0.73 m/sec VTI, S 20.3 cm Mean grad, S 2.4 mm Hg Peak grad, S 4.1 mm Hg Mitral valve Value Ref Peak E 0.82 m/sec Peak A 0.95 m/sec Mean v, D 0.59 m/sec VTI leaflet coapt 27.3 cm Decel time 240 ms Mean grad, D 1.7 mm Hg Peak grad, D 5.0 mm Hg Peak E/A ratio 0.87 MR peak v 2.69 m/sec Tricuspid valve Value Ref TR peak v 2.15 m/sec <=2.8 Peak RV-RA grad, S 18 mm Hg Aortic root Value Ref Root diam 3.5 cm <4.2 Root diam, ED MM 3.63 cm Conclusions Summary: 1. Left ventricle: The cavity size is normal. Wa ll thickness is mildly to moderately increased. The estimated ejection fraction is 35-39%. Akinesis of the apical myocardium. 2. Atrial septum: No defect or patent foramen ov art is identified. 3. Mitral valve: There is mild regurgitation. 4. Pericardium, extracardiac: There is no perica rdial effusion. Impressions: Severely reduced left ventricle sys tolic function iwth akinesis of the apex. Recommendations: continue hf mgmt. Prepared and electronically signed by Paco James MD 03/19/2023 14:01 PATIENT NAME: CHARAN RESTREPO 387 Electronically Signed by Paco James MD on at 1401 SECTION 2 ADDENDUM 1: 03/20/23 0752 GCD.CPS *[facility]* [address] [place] [id number] Transthoracic Echocardiogram (Report amended [id number]) Patient: Cahran Restrepo Study Date: 03/19/2023 BP: 134 / 73 Location: [facility] URN: [id number] : 1970 Age: 52 Height: 70 in / 177.8 cm Gender: M Weight: 199 .6 lb / 90.7 kg BMI/BSA: 28.7 kg/m 2 / 2.14 m 2 *Ordering Physician: * Marianna Schilling MD *Interpreting Physician: * Marianna Schilling MD *Security Services Specialist: * Gabby Crockett Indications: CAD / PA. Study data: Transthoracic echocardiogram. Proced ure: Transthoracic echocardiography was performed. Images were obta ined using a [employer] cardiac ultrasound machine. Image quality was adequate. M-mode, complete 2D, complete spectral Doppler, and color Doppler. Lo cation: Bedside. Patient status: Inpatient. Patient room number: ICU 13. Study status: Routine. Findings Left ventricle: The cavity size is normal. Wall thickness is mildly to moderately increased. The estimated ejection fra ction is 35-39%. Regional wall motion abnormalities: Akinesis of the apical myocardium. Right ventricle: Well visualized. The cavity siz e is normal. Wall thickness is normal. Systolic function is normal . Ventricular septum: Well visualized. Left atrium: Well visualized. The atrium is norm al in size. Right atrium: Well visualized. The atrium is nor mal in size. Atrial septum: Well visualized. No defect or pat ent foramen ovale is identified. Aorta: The aorta is well visualized. Aortic valve: Well visualized. The valve is tril eaflet. The leaflets PATIENT NAME: CHARAN RESTREPO [id number] are normal thickness. There is no evidence of st enosis. There is no significant regurgitation. Mitral valve: Well visualized. The leaflets are normal thickness. There is no evidence of stenosis. There is mild regurgitation. Tricuspid valve: Well visualized. The leaflets a re normal thickness. There is no evidence of stenosis. There is physi ologic regurgitation. Pulmonic valve: Well visualized. The leaflets ar e normal thickness. There is no evidence of stenosis. There is no si gnificant regurgitation. Pericardium: There is no pericardial effusion. N o evidence of pleural fluid accumulation. Systemic veins: Inferior vena cava: The vessel is normal in size . Measurements Left ventricle Value Ref AFSANEH, LAX 5.3 cm 4.2 - 5.8 ESD, LAX 3.6 cm 2.5 - 4.0 ESD/bsa, LAX 1.7 cm/m 2 1.3 - 2.1 FS, LAX 32 % 25 - 43 PW, ED 1.0 cm 0.6 - 1.0 PW, ES 1.4 cm IVS/PW, ED 0.98 EF 60 % 52 - 72 E/e', avg, TDI 12 <=14 LVOT Value Ref Diam, S 2.44 cm Area 4.7 cm 2 Ventricular septum Value Ref IVS, ED 1.0 cm 0.6 - 1.0 IVS, ES 1.4 cm Right ventricle Value Ref AFSANEH, LAX 2.6 cm RVOT Value Ref Peak v, S 0.82 m/sec Peak grad, S 3 mm Hg Left atrium Value Ref AP dim, ES 3.49 cm 3.00 - 4.00 AP dim, ES MM 3.8 cm 3.0 - 4.0 LA/Ao root ratio, 1.05 MM Aortic valve Value Ref Leaflet sep, MM 2.47 cm Peak v, S 1.02 m/sec Mean v, S 0.73 m/sec PATIENT NAME: CHARAN RESTREPO 387 VTI, S 20.3 cm Mean grad, S 2.4 mm Hg Peak grad, S 4.1 mm Hg Mitral valve Value Ref Peak E 0.82 m/sec Peak A 0.95 m/sec Mean v, D 0.59 m/sec VTI leaflet coapt 27.3 cm Decel time 240 ms Mean grad, D 1.7 mm Hg Peak grad, D 5.0 mm Hg Peak E/A ratio 0.87 MR peak v 2.69 m/sec Tricuspid valve Value Ref TR peak v 2.15 m/sec <=2.8 Peak RV-RA grad, S 18 mm Hg Aortic root Value Ref Root diam 3.5 cm <4.2 Root diam, ED MM 3.63 cm Conclusions Summary: 1. Left ventricle: The cavity size is normal. Wa ll thickness is mildly to moderately increased. The estimated ejectio n fraction is 35-39%. Akinesis of the apical myocardium. 2. Atrial septum: No defect or patent foramen ov art is identified. 3. Mitral valve: There is mild regurgitation. 4. Pericardium, extracardiac: There is no perica rdial effusion. Impressions: Severely reduced left ventricle sys tolic function iwth akinesis of the apex. Recommendations: continue hf mgmt. Amended Marianna Schilling MD 03/20/2023 07:52 PATIENT NAME: CHARAN RESTREPO 387 2023-03-19 12:44:00-00:00 [facility] ([facility]) Cardiology Progress Note REPORT#:[id number] REPORT STATUS: Signed DATE:03/19/23 TIME: 1244 PATIENT: CHARAN RESTREPO UNIT #: [id number] ROOM/BED: [address] : 69 AGE: 52 SEX: M ATTEND: Darrell Jernigan MD ADM AUTHOR: Paco James MD * ALL edits or amendments must be made on the [employer] document * See Addendum Subjective Chief complaint: stemi HPI: The patient is a 52-year-old female with a histo ry of hypertension, diabetes, heart failure reduced EF, CAD status post PCI to the LAD who presented for VT and STEMI status post PCI to the LAD again Free Text Subj Notes Free Text Subj Notes: No complaints today. Objective General VS/I O: 24 hour I O ending at 0700: 03/19 0700 03/18 1900 Intake Total 3.00 Output Total 500 Balance -497.00 Intake, IV 3.00 Number Voids 1 Output, Urine 500 Patient 90.9 kg Weight Weight Stated/Reported Measurement Method Vital Signs: Date Time Temp Pulse Resp B/P B/P Pulse O2 O2 F low FiO2 Mean Ox Delivery Rate 03/19 1029 68 18 98 03/19 1015 73 18 97 03/19 1003 71 13 126/72 93 96 03/19 1000 69 12 98 03/19 0945 62 10 96 03/19 0930 64 14 96 03/19 0903 71 17 125/66 88 98 03/19 0900 71 15 98 03/19 0845 80 14 98 05/29 0830 78 21 05/29 0828 129/74 95 05/29 0803 80 17 133/75 100 96 05/29 0800 36.7 05/29 0745 80 18 93 05/29 0733 87 19 131/71 94 93 05/29 0730 87 18 94 05/29 0715 83 29 95 05/29 0703 76 19 134/73 98 93 05/29 0700 95 33 93 05/29 0648 93 Room air 21 05/29 0645 66 15 92 05/29 0633 66 14 132/68 93 93 05/29 0630 66 14 92 05/29 0615 69 14 90 05/29 0603 79 124/72 93 93 05/29 0600 79 36 95 05/29 0545 74 16 91 05/29 0533 71 14 126/68 91 90 05/29 0530 73 15 90 05/29 0515 76 16 89 05/29 0503 81 17 118/66 86 90 05/29 0500 76 18 91 05/29 0445 82 25 90 05/29 0437 94 39 127/71 92 95 05/29 0433 79 22 133/71 96 95 05/29 0430 64 13 93 05/29 0415 65 15 93 05/29 0403 62 11 140/70 98 94 05/29 0400 36.2 05/29 0400 63 10 94 05/29 0345 66 10 93 05/29 0333 66 14 126/71 92 91 05/29 0330 66 13 93 05/29 0315 68 15 93 05/29 0303 78 22 131/79 99 95 05/29 0300 66 14 93 05/29 0245 71 13 94 05/29 0233 72 12 136/73 98 93 05/29 0230 71 11 92 05/29 0215 74 13 95 05/29 0203 65 11 148/85 109 94 05/29 0200 69 10 94 05/29 0145 69 12 93 05/29 0133 78 14 131/80 100 96 05/29 0130 76 18 95 05/29 0115 69 12 96 05/29 0103 69 9 148/87 112 96 05/29 0100 69 13 95 05/29 0045 69 12 96 05/29 0033 67 10 139/82 105 94 05/29 0030 68 10 95 05/29 0015 73 15 94 05/29 0003 71 15 138/84 106 93 05/29 0000 36.6 03/19 0000 74 17 94 03/18 2345 72 16 93 03/18 2333 72 16 134/70 95 92 03/18 2330 72 16 92 03/18 2315 70 15 93 03/18 2303 74 17 127/75 95 92 03/18 2300 71 15 93 03/18 2245 75 16 94 03/18 2233 70 15 134/75 99 95 03/18 2230 70 14 96 03/18 2215 74 15 94 03/18 2203 70 14 130/79 99 94 03/18 2200 72 15 93 03/18 2145 69 15 92 03/18 2133 70 14 136/78 102 91 03/18 2130 68 10 92 03/18 2115 71 14 90 03/18 2100 80 18 123/64 88 90 03/180 79 17 137/81 104 91 03/18 2045 87 30 95 03/18 2040 76 15 139/83 105 91 03/18 2030 79 12 152/84 110 94 03/18 2015 79 22 96 03/18 2000 36.4 03/18 2000 81 21 147/85 110 97 03/18 1945 85 35 98 03/18 1930 73 15 130/81 101 94 03/18 1915 81 17 97 03/18 1900 82 18 128/78 97 96 03/18 1830 68 16 122/76 94 94 03/18 1816 99 Room air 21 03/18 1800 73 26 121/72 91 96 03/18 1745 73 24 125/74 95 96 03/18 1735 129/72 95 96 03/18 1734 125/82 98 97 03/18 1730 36.2 PATIENT WEIGHT: Weight (lb): 200 Weight (oz): 6.4 Weight (kg): 90.900 Physical Exam General appearance: alert, awake, oriented Cardiovascular: CV assessment: regular rate and rhythm, normal heart sounds Respiratory: clear to auscultation, no distress Lower extremity: LE assessment: no edema Diagnosis, Assessment Plan Consultants: cardiology Free Text DxA P Notes Free Text DxA P Notes: The patient is a 52 year old male with heart kasandra lure reduced EF, diabetes, hypertension, CAD status post PCI of the LAD #STEMI: Patient was found to have thrombotic andrew nosis in the proximal LAD as well as distal LAD stenosis both were treated wi th PCI x4. Patient no longer having chest pain DC nitro drip Continue aspirin 81 mg and ticagrelor 90 mg twi ce daily Continue atorvastatin 40 mg Start Farxiga 10 mg daily ( can change back to patient's Jardiance on discharge ) #Heart failure reduced EF: [place] had a previous history of EF of 35% which had improved to 45%. LV gram did show EF of 25% afte r STEMI Start Entresto today Start metoprolol XL 25 mg daily Start Lasix 40 mg daily p.o. #V. tach: Patient had VT and was shocked in the ER. Arrhythmia likely due to acute ischemia. Continue to monitor Reassess patient in 3 months for possible AICD Electronically Signed by Paco James MD on 02/20 07/14 at 1248 Addendum 1: 03/19/23 1248 by Paco James MD Critical Care Time: The patient is criti madai ill with one or more vital organ system dysfunction resulting in a high probabili ty of imminent or life threatening deterioration in the patient's condition. I spent 35 minutes of unit time on the following activi ties: reviewing the EMR, reviewing hemodynamic data, reviewing telemetry data, discussing the patient 's care with the multi- disciplinary team, and documenting the relevant findings, assessment, and recommendations in the [facility]'s electronic health record. Time is separate from any billable procedures. Electronically Signed by Paco James MD on 02/20 07/14 at 1248 RPT #:[id number] END OF REPORT 2023-03-19 09:27:00-00:00 [facility] ([facility]) Critical Care Progress Note REPORT#:[id number] REPORT STATUS: Signed DATE:03/19/23 TIME: 926 PATIENT: CHARAN RESTREPO UNIT #: [id number] ROOM/BED: [address] : [birth year] AGE: 52 SEX: M ATTEND: Darrell Jernigan MD ADM AUTHOR: Suzette Wang P * ALL edits or amendments must be made on the el [employer]/computer document * Davonte Wang 03/19/23926: Subjective Chief complaint: Chest Pain Comments: No acute events overnight. H emodynamically stable. Denies CP. Still on low dose Nitroglycerin, Nursing instructed to wean off. Review of Systems Respiratory: Denies: DWYER (dyspnea on exertion), SOB. Cardiovascular: Denies: chest pain. GI: Denies: abdominal pain. Objective General VS/I O Last Documented: Result Date Time Pulse Ox 93 03/19 0703 B/P 134/73 03/19 0703 B/P Mean 98 03/19 0703 Pulse 76 03/19 0703 Resp 19 03/19 0703 FiO2 21 03/19 0648 O2 Delivery Room air 03/19 0648 Temp 36.2 03/19 0400 24 hour I O ending at 0700: 03/19 0700 03/18 1900 Intake Total 3.00 Output Total 500 Balance -497.00 Intake, IV 3.00 Number Voids 1 Output, Urine 500 Patient 90.9 kg Weight Weight Stated/Reported Measurement Method PATIENT WEIGHT: Weight (lb): 200 Weight (oz): 6.4 Weight (kg): 90.900 Medications: Active Meds + DC'd Last 24 Hrs Insulin Human Lispro (HumaLOG) MEDIUM DOSE SLIDI NG SCALE AC HS SUBQ (DC) Aspirin (CHILDREN'S ASPIRIN) 81 MG DAILY PO Enoxaparin Sodium (LOVENOX) 40 MG Q24H SUBQ (CAN ) Insulin Glargine (Lantus/Semglee) 15 UNITS BID SUBQ Ticagrelor (BRILINTA) 90 MG BID PO Insulin Human Lispro (HumaLOG) MEDIUM DOSE SLIDI NG SCALE Q4H SUBQ Morphine Sulfate (morphine SULFATE (C-II)) 4 MG Q6H PRN PRN IV (DC) Atorvastatin Calcium (LIPITOR) 40 MG BEDTIME PO Insulin Human Lispro (HumaLOG) LOW DOSE SLIDING SCALE AC HS SUBQ (DC) Mupirocin (BACTROBAN NASAL - ADULT ICU) 1 APPLIC BID NASAL Nitroglycerin/Dextrose (NITROGLYCERIN IN D5W) 25 0 ML ASDIR IV Morphine Sulfate (morphine SULFATE (C-II)) 4 MG NOW ONE IV (DC) Hydrocodone Bitart/Acetaminophen (NORCO 10/325 T ABLET (C-II)) 1 TAB BID PRN PRN PO Morphine Sulfate (morphine SULFATE (C-II)) 2 MG Q6H PRN PRN IV (DC) Nicotine (NICODERM) 21 MG DAILY TRANSDERM (CKD) Dextrose/Water (DEXTROSE 50% IN WATER) 12.5 GM A SDIR PRN IV Dextrose/Water (DEXTROSE 50% IN WATER) 25 GM DIR PRN IV Glucagon (GLUCAGON) 1 MG ASDIR PRN IM Acetaminophen (TYLENOL) 650 MG Q4H PRN PRN PO Morphine Sulfate (morphine SULFATE (C-II)) 2 MG Q4H PRN PRN IV (DC) Ondansetron HCl (ZOFRAN) 4 MG Q8H PRN PRN IV Iopamidol (ISOVUE-300) 0 .STK-MED ONE .ROUTE (DC ) Morphine Sulfate (morphine SULFATE (C-II)) 0 .ST K-MED ONE .ROUTE (DC) Sodium Chloride (SODIUM CHLORIDE 0.9%) 50 ML .ST K-MED ONE IV (DC) Sodium Chloride (SODIUM CHLORIDE 0.9%) 100 ML .S TK-MED ONE IV (DC) Diltiazem HCl (CARDIZEM) 0 .STK-MED ONE .ROUTE ( DC) Nicardipine HCl (CARDENE I.V.) 0 .STK-MED ONE .R OUTE (DC) Tirofiban HCl (AGGRASTAT) 0 .STK-MED ONE .ROUTE (DC) Heparin Sodium/Sodium Chloride (HEPARIN 1000 UNI TS/NS 500ML) 500 ML .STK-MED ONE IV (DC) Ticagrelor (BRILINTA) 0 .STK-MED ONE .ROUTE (DC) Fentanyl Citrate (SUBLIMAZE (C-II)) 0 .STK-MED O NE .ROUTE (DC) Midazolam HCl (VERSED (C-IV)) 0 .STK-MED ONE .RO RICARDA (DC) Heparin Sodium (HEPARIN SODIUM) 0 .STK-MED ONE . ROUTE (DC) Heparin Sodium/Sodium Chloride (HEPARIN 1000 UNI TS/NS 500ML) 1,000 ML .STK- MED ONE IV (DC) Iopamidol (ISOVUE-300) 0 .STK-MED ONE .ROUTE (DC ) Lidocaine (XYLOCAINE 1%) 0 .STK-MED ONE .ROUTE ( DC) Nitroglycerin/Dextrose (NITROGLYCERIN IN D5W) 25 0 ML .STK-MED ONE IV (DC ) Physical Exam General appearance: alert, awake, oriented, no r espiratory distress Head/eyes: atraumatic, normocephalic, PERRL Neck: no JVD Cardiovascular: normal heart sounds, reg ular rate and rhythm, normal S1/S2, no ectopy Respiratory: aerating well, symmetric expansion, no distress Abdomen: obese, soft, no distention, no guarding Extremities: moves all, no clubbing, no cyanosis , no edema, R groin soft, no hematoma Musculoskeletal normal inspection, no muscle spa sm Neuro/PUPPET ENGINEER: alert, oriented X 3, no sensory defic its Psychiatry: normal affect Results Findings/data: Laboratory Tests 03/19 03/19 03/18 03/18 03/18 0326 0325 2357 3 2022 Chemistry Sodium (137 - 145 MMOL/L) 135 L Potassium (3.5 - 5.1 MMOL/L) 4.2 Chloride (98 - 107 MMOL/L) 105 Carbon Dioxide (22 - 30 MMOL/L) 25 Anion Gap (14 - 24 MMOL/L) 9 L BUN (9 - 20 MG/DL) 18 Creatinine (0.66 - 1.25 MG/DL) 0.70 Glomerular Filtr Rate > 60 Glucose (74 - 106 MG/DL) 204 H POC Glucose (60 - 99 MG/DL) 211 H Mean Blood Glucose (70 - 110 MG/DL) 220 H Hemoglobin A1c (4.8 - 5.9 %) 9.3 H Calcium (8.4 - 10.2 MG/DL) 8.5 Magnesium (1.6 - 2.3 MG/DL) 2.3 Troponin I (0.012 - 0.033 NG/ML) 3.570 *H 3.70 0 *H 03/18 03/18 03/18 03/18 03/18 1741 1741 1741 1741 1741 Chemistry Sodium (137 - 145 MMOL/L) 134 L Potassium (3.5 - 5.1 MMOL/L) 4.1 Chloride (98 - 107 MMOL/L) 106 Carbon Dioxide (22 - 30 MMOL/L) 23 BUN (9 - 20 MG/DL) 17 Creatinine (0.66 - 1.25 MG/DL) 0.70 Glomerular Filtr Rate > 60 Glucose (74 - 106 MG/DL) 183 H Mean Blood Glucose (70 - 110 MG/DL) 214 H Hemoglobin A1c (4.8 - 5.9 %) 9.1 H Calcium (8.4 - 10.2 MG/DL) 8.0 L Phosphorus (2.5 - 4.5 MG/DL) 3.8 Magnesium (1.6 - 2.3 MG/DL) 2.3 Total Bilirubin (0.2 - 1.3 MG/DL) 0.7 AST (17 - 59 UNITS/L) 69 H ALT (0 - 49 UNITS/L) 50 H Total Alk Phosphatase (38 - 126 UNITS/L) 59 Total Creatine Kinase (55 - 170 UNITS/L) 274 H Troponin I (0.012 - 0.033 NG/ML) 3.780 *H NT-Pro-B Natriuret Pep (pg/mL) 538.0 Total Protein (6.2 - 7.6 G/DL) 6.1 L Albumin (3.5 - 5.0 G/DL) 3.6 LDL Cholesterol (100 - 129 mg/dL) 112 Laboratory Tests 03/18 03/18 1618 1534 Coagulation Activated Coag Time (74 - 137 SEC) 275 H 281 H Laboratory Tests 03/19 03/18 0325 1741 Hematology WBC (3.8 - 9.8 K/MM3) 15.9 H 14.9 H RBC (3.95 - 5.67 M/MM3) 5.94 H 5.96 H Hgb (12.4 - 16.7 G/DL) 17.2 H 17.3 H Hct (35.9 - 49.5 %) 50.2 H 49.6 H MCV (81.7 - 96.1 fL) 85 83 MCH (27.6 - 33.2 pg) 29.0 29.0 MCHC (32.9 - 35.5 %) 34.3 34.9 RDW (12.1 - 15.2 %) 13.4 13.2 Plt Count (129 - 368 K/MM3) 210 238 MPV (7.4 - 10.4 fl) 10.5 H Neut % (Auto) (43 - 75 %) 84.6 H Lymph % (Auto) (14 - 44 %) 8.0 L Mclennan % (Auto) (4 - 13 %) 5.3 Eos % (Auto) (0 - 6 %) 0.8 Baso % (Auto) (0 - 2 %) 0.5 Neut # (Auto) (2.0 - 7.6 K/mm3) 13.48 H 11.29 H Lymph # (Auto) (1.0 - 3.8 K/mm3) 1.28 2.18 Mclennan # (Auto) (0.1 - 0.8 K/mm3) 0.84 H 0.99 H Eos # (Auto) (0.0 - 0.2 K/mm3) 0.12 0.14 Baso # (Auto) (0.0 - 0.2 K/mm3) 0.08 0.10 Immature Gran % (0.0 - 2.0 %) 0.8 Nucleated RBC % (0 - 1.0 %) 0.0 Nucleated RBCs # (Man) (0.0 - 0.1 K/mm3) 0.00 0.00 Laboratory Tests 03/19 0415 Urines Urine Color (YELLOW) YELLOW Urine Appearance (CLEAR) CLEAR Urine pH (5.0 - 9.0) 5.0 Ur Specific Hiko (1.003 - 1.030) 1.020 Urine Protein (NEGATIVE MG/DL) NEGATIVE Urine Glucose (UA) (NORMAL MG/DL) 1000 H Urine Ketones (NEGATIVE MG/DL) 5 Urine Blood (NEGATIVE Oneal/mm3) NEGATIVE Urine Nitrite (NEGATIVE) NEGATIVE Urine Bilirubin (NEGATIVE MG/DL) NEGATIVE Urine Urobilinogen (NORMAL MG/DL) NORMAL Ur Leukocyte Esterase (NEGATIVE /mm3) NEGATIVE Laboratory Tests 03/19/23 0326: [Embedded Image Not Available] 03/19/23 0325: [Embedded Image Not Available] 03/18/23 1741: [Embedded Image Not Available] Microbiology: 03/18 1812 NASAL: MRSA Screen - COMP Radiology data Recent Impressions: RADIOLOGY - XR CHEST 1V 03/18 1809 Report Impression - Status: SIGNED Entered: 03/18/2023 190 IMPRESSION: Unremarkable portable examination of the chest. Impression By: [email or web address] - Nery Nolan Results: labs reviewed, vital signs reviewed, cu rrent med profile rev'd Treatment Prophylaxis Treatment Prophylaxis Oxygen: room air Lines: peripheral Diagnosis, Assessment Plan Free text A P: 52 year old male patient hx CAD s/p multiple andrew nts, systolic heart failure transferred from [facility] with STEMI. STEMI: Coronary Artery Disease Presented with chest pain in ventricular tachyca rdia s/p cardioversion at outside facility. Repeat EKG showed STEMI Arrived via life flight, Dr James placed 4 stents to LAD Aspirin, Statin, Brilinta. Start low dose Metopr olol and HCTZ Nitroglycerin drip titrate for chest pain. Uses Entresto and Ziac as outpatient- defer to c ardiology Patient states he has been referred for defibrillator placement. Does not know Ejection Fraction Pending Echo Monitor for arrythmias Diabetes Uncontrolled. Takes metformin and jardiance. 9.3 A1C Glucose 200s, start lantus. Pattietn educated on diabetes and need for insulin at this point Will consult mill operator for DM education Tobacco Abuse Smokes 2 PPD Counseled against smoking Nicotine patch PPX Lovenox Cardiac Diet f/u 35 mins Orders: Procedure Date/time Status MAGNESIUM 03/20 400 Active BASIC METABOLIC PANEL 03/20 400 Active LIVER FUNCTION PANEL 03/19 927 Active Consultants: cardiology [facility]: [facility] Prophylaxis VTE prophylaxis initiated: yes Current Medications Current medication review: I attest that the foregoing medication list in t he medical record is true, accurate, and complete to the best of my knowled ge. Pamela Lindquist 03/19/23 1306: Attestations Attestation needed: supervising physician Physician Attestation Agree w/findings plan: Services and addendum: Agree with the findings and plan as documented Suzette Soares NP Patient was seen and examine d. I reviewed the medical records and the available data I agree with the documented examination fin dings, assessment and plan of care. Multidisciplinary Critical Care Unit rou nds were performed with involvement of the Critical Care Nurse Practitioner, critical c are unit nurse caring for the patient, respiratory therapist, and critical car e pharmacist. Discussed with cardiology. Okay to transfer out of ICU. MICU team will sign off. Please reconsult if needed at 1004 Electronically Signed by Pamela Lindquist MD on 03/19 at 1306 RPT #:[id number] END OF REPORT 2023-03-19 07:39:00-00:[address] [facility] ([facility]) Hospitalist Progress Note REPORT#:[id number] REPORT STATUS: Signed DATE:03/19/23 TIME: 738 PATIENT: CHARAN RESTREPO UNIT #: [id number] [facility] AGE[facility] 52 SEX: M ATTEND: Edmar Jernigan MD ADM AUTHOR: Davi Davison MD, MPH R2 * ALL edits or amendments must be made on the LE TOTE/computer document * Davi Davison 03/19/23 0739: Subjective Chief complaint: CHEST PAIN HPI: 52 y/o M PMH DM2, HLD, CAD s/p 2 stents, HFpEF b orderline, tobacco use, arthritis presented to [facility] for chest pain. NAEO. No arrhythmias overnight. Today pt reports feeling well. He had some persistent chest discomfort which has si nce resolved w/ morphine. Otherwise no significant complaints. Review of Systems Constitutional: Denies: chills, fatigue, fever, generalized weak ness. Skin: Denies: abrasion, rash, swelling. Allergy/Immun: Denies: allergic reaction, anaphylaxis. Eyes: Denies: visual loss/blurred. Respiratory: Denies: DWYER (dyspnea on exertion), non productiv e cough, pleurisy, pleuritic pain, pneumonia, productive cough (sputum), SOB, wheezing. Cardiovascular: Reports: chest pain. Denies: DWYER (dyspnea on exe rtion), edema, orthopnea. GI: Denies: abdominal pain, constipation, diarrhea, nausea, vomiting. : Denies: dysuria, flank pain. Musculoskeletal: Denies: arthritis, extremity pain, extremity swe lling. Neuro: Denies: bladder dysfunction, bowel dysfunction, change in LOC, confusion, dizziness, focal weakness, gait problem, headach e, lightheaded, numbness. Psych: Denies: agitation, anxiety. All systems rev neg: except as noted Objective General VS/I O: Vital Signs: Date Time Temp Pulse Resp B/P B/P Pulse O2 O2 F low FiO2 Mean Ox Delivery Rate 03/19 0703 76 19 134/73 98 93 03/19 0700 95 33 93 03/19 0648 93 Room air 21 03/19 0645 66 15 92 03/19 0633 66 14 132/68 93 93 05/29 0630 66 14 92 05/29 0615 69 14 90 05/29 0603 79 124/72 93 93 05/29 0600 79 36 95 05/29 0545 74 16 91 05/29 0533 71 14 126/68 91 90 05/29 0530 73 15 90 05/29 0515 76 16 89 05/29 0503 81 17 118/66 86 90 05/29 0500 76 18 91 05/29 0445 82 25 90 05/29 0437 94 39 127/71 92 95 05/29 0433 79 22 133/71 96 95 05/29 0430 64 13 93 05/29 0415 65 15 93 05/29 0403 62 11 140/70 98 94 05/29 0400 97.2 05/29 0400 63 10 94 05/29 0345 66 10 93 05/29 0333 66 14 126/71 92 91 05/29 0330 66 13 93 05/29 0315 68 15 93 05/29 0303 78 22 131/79 99 95 05/29 0300 66 14 93 05/29 0245 71 13 94 05/29 0233 72 12 136/73 98 93 05/29 0230 71 11 92 05/29 0215 74 13 95 05/29 0203 65 11 148/85 109 94 05/29 0200 69 10 94 05/29 0145 69 12 93 05/29 0133 78 14 131/80 100 96 05/29 0130 76 18 95 05/29 0115 69 12 96 05/29 0103 69 9 148/87 112 96 05/29 0100 69 13 95 05/29 0045 69 12 96 05/29 0033 67 10 139/82 105 94 05/29 0030 68 10 95 05/29 0015 73 15 94 05/29 0003 71 15 138/84 106 93 05/29 0000 97.9 05/29 0000 74 17 94 05/28 2345 72 16 93 05/28 2333 72 16 134/70 95 92 05/28 2330 72 16 92 05/28 2315 70 15 93 05/28 2303 74 17 127/75 95 92 05/28 2300 71 15 93 05/28 2245 75 16 94 05/28 2233 70 15 134/75 99 95 05/28 2230 70 14 96 05/28 2215 74 15 94 05/28 2203 70 14 130/79 99 94 05/28 2200 72 15 93 03/18 2145 69 15 92 03/18 2133 70 14 136/78 102 91 03/18 2130 68 10 92 03/18 2115 71 14 90 03/18 2100 80 18 123/64 88 90 03/180 79 17 137/81 104 91 03/185 87 30 95 03/18 2040 76 15 139/83 105 91 03/18 2030 79 12 152/84 110 94 03/18 2015 79 22 96 03/18 2000 97.6 03/18 2000 81 21 147/85 110 97 03/18 1945 85 35 98 03/18 1930 73 15 130/81 101 94 03/18 1915 81 17 97 03/18 1900 82 18 128/78 97 96 03/18 1830 68 16 122/76 94 94 03/18 1816 99 Room air 21 03/18 1800 73 26 121/72 91 96 03/18 1745 73 24 125/74 95 96 03/18 1735 129/72 95 96 03/18 1734 125/82 98 97 03/18 1730 97.1 24 hour I O ending at 0700: 03/19 0700 03/18 1900 Intake Total 3.00 Output Total 500 Balance -497.00 Intake, IV 3.00 Number Voids 1 Output, Urine 500 Patient 90.9 kg Weight Weight Stated/Reported Measurement Method PATIENT WEIGHT: Weight (lb): 200 Weight (oz): 6.4 Weight (kg): 90.900 Physical Exam General appearance: alert, awake, oriented Head/Eyes: atraumatic, normocephalic ENT: moist mucosal membranes, normal dentition Neck: full range of motion, supple/no meningismu s Cardiovascular: normal capillary refill, normal heart sounds, regular rate rhythm Respiratory: aerating well, clear to auscultatio n, symmetric expansion, no distress Abdomen: non-tender, soft, no distention Extremities: moves all, normal capillary refill, normal range of motion Musculoskeletal: normal inspection, painless ran ge of motion Neuro/PUPPET ENGINEER: alert, oriented X 3, CNII-XII intact, normal speech Skin: dry, normal temperature Psychiatry: normal affect, normal judgment/insig ht Diagnosis, Assessment Plan Problem List/A P: 1. STEMI (ST elevation myocardial infarction) 2. Hypertension 3. Hyperlipidemia 4. Coronary artery disease 5. Heart failure 6. History of heart artery stent 7. Wheezing 8. Tobacco use Consultants: cardiology Free Text DxA P Notes Free text DxA P notes: 52 y/o M PMH HTN, HLD, CAD s /p 2 stents, HFpEF borderline presented to [facility] for chest pain. STEMI (ST elevation myocardi al infarction) : Hypertension : HLD : CAD : HF : Hx stent 03/18 AM - chest pain/dizziness, found to be in v tach at [facility]. Placed on amiodarone drip, given sync cardioversion which resolved issue. Transferred here per Dr. Schilling, found to have V1/V2 ST elevation, taken for [facility] w/ Dr. James - 4x stent placed. EF 20%. 03/19 - titrating off nitro drip, restarting PO r x per cardiology Plan: Cardio management per Dr. James Rx: Nitro drip - titrate off today Restart B luís? - per cardiology ASA 81, ticagrelor 90 BID Atorvastatin 40 Morphine 4 IV q6 PRN - per Dr. Alvarez Home rx (deferred): Entresto 24-26 BID Bisoprolol/HCTZ 02/24.25 DM2 Unknown A1c, is on jardiance unknown dose at [facility] e Supposedly took metformin which "didn't work" in the past A1c 9.3 MDSS from LDSS today Tobacco hx : Wheezing 30+ pack-year smoking hx Mild expiratory wheezing, possible COPD componen t Nicotine patch, consider duonebs/maintenance inh amada worsening SOB/cough Arthritis Chronic arthritis of both kn ees/hips, was told that he should have replacements at some point Rx: Home norco 10 BID PRN Code: FULL Diet: Cardiac DVT: SCD Quality: Gen Med Crit Care VTE Prophylaxis VTE prophylaxis initiated: yes Current Medications Current medication review: I attest that the foregoing medication list in t medical record is true, accurate, and complete to the best of my knowled Montez Hernández 03/19/23 1244: Attestations Teaching Physician Attestation F/U visit w/o resident: I personally saw the patient and reviewed the re sident's note. I . . . agree with the resident's findings and plan. Mr. Restrepo is complaining o f some transient (<10 seconds) episodes of shortness of breath today. He is s/p V-tach with cardiover rukhsana and STEMI with 4 stents placed to the LAD yesterday. Otherwise he says his chest pain is better, but not resolved, and different than it was yesterday. He was restarted on beta luís therapy in addition to entre sto, brilinta, and aspirin. He is on nitroglycerine drip still which is being we aned. Equipment Validation Specialist and cardiology are on board and we appreciate their recommendations and care. Electronically Signed by Davi Davison MD, MPH R2 on 0 03/19/23 at 0743 Electronically Signed by Montez Jernigan MD on at 1246 RPT #:[id number] END OF REPORT 2023-03-19 05:44:00-00:00 [id number] [place] [address] PATIENT NAME: CHARAN RESTREPO ADMIT DATE: 3 ACCOUNT NO: [id number] ROOM NO: [id number].I13 AGE: 52 REPORT TYPE: ELECTROCARDIOGRAM SEX: M ADMITTING PHYSICIAN:Montez Jernigan MD ATTENDING PHYSICIAN:Montez Jernigan MD Order: [id number] Test Reason : CAD/PA Test Date/Time Stamp: SunMar 19 2023 05:44:06 Blood Pressure : / mmHG Vent. Rate : 074 BPM Atrial Rate : 074 BPM P-R Int : 146 ms QRS Dur : 106 ms QT Int : 412 ms P-R-T Axes : 000 -25 149 degree s QTc Int : 457 ms Normal sinus rhythm Low voltage QRS Anterolateral infarct (cited on or before ) Abnormal ECG When compared with ECG of 18-MAR-2023 17:40, QRS axis shifted left T wave inversion more evident in Lateral leads Confirmed by MARIANNA SCHILLING ([id number]) on 03/19/2023 10:39:25 AM Referred By: Self Referred Confirmed by:MARIANNA MARRERO at 3015 PATIENT NAME: CHARAN RESTREPO 387 2023-03-19 05:44:00-00:00 [id number] [facility] [address] [place] [id number] PATIENT NAME: CHARAN RESTREPO ADMIT DATE: 03/18/23 ACCOUNT NO: [id number] ROOM NO: 503 AGE: 52 REPORT TYPE: ELECTROCARDIOGRAM SEX: M ADMITTING PHYSICIAN:Montez Jernigan MD ATTENDING PHYSICIAN:Montez Jernigan MD Order: [id number] Test Reason : CAD/PA Test Date/Time Stamp: SunMar 19 2023 05:44:06 Blood Pressure : / mmHG Vent. Rate : 074 BPM Atrial Rate : 074 BPM P-R Int : 146 ms QRS Dur : 106 ms QT Int : 412 ms P-R-T Axes : 000 -25 149 degree s QTc Int : 457 ms Normal sinus rhythm Low voltage QRS Anterolateral infarct (cited on or before ) Abnormal ECG When compared with ECG of 18-MAR-2023 17:40, QRS axis shifted left T wave inversion more evident in Lateral leads Confirmed by MARIANNA SCHILLING ([id number]) on 03/20/2023 5:50:22 PM Referred By: Self Referred Confirmed by:MARIANNA MARRERO at 1750 PATIENT NAME: CHARAN RESTREPO 387 2023-03-18 17:45:00-00:[address] [facility] ([facility]) Critical Care Consult Note REPORT#:[id number] REPORT STATUS: Signed DATE:03/18/23 TIME: 1744 PATIENT: CHARAN RESTREPO UNIT #: [id number] ROOM[facility]BED: [facility]-A : 69 AGE: 52 SEX: M ATTEND: Markie Osuna MD ADM AUTHOR: Suzette Wang * ALL edits or amendments must be made on the LE TOTE/computer document * Davonte Wang 03/18/23 1745: History of Present Illness HPI Requesting clinician: Direct Admit Reason for consult: STEMI Chief complaint: Chest Pain PCP: PCP: Jesusita Osuna MD HPI: Mr Restreop is a 52 year old male patient who is transferred from outside emergency department with [facility]. Patient presented to their facility with chest pressure. He was found to be in ventricular tach ycardia and subsequently cardioverted. Repeat EKG showed STEMI. Transferr ed emergently to our microbiology lab technician via life flight. Dr James was able to place 4 andrew nts to LAD. 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 He is hemodynamically stable on low dose nitroglycerin drip. Chest pain free. De nies SOB. Groin site, soft no hematoma. Patient states he has been encouraged to have debrillator placed by his tire mold engraver. Unable to recall names of home medications. History - Adult longitudinal Past medical history: Reports: Coronary artery disease, Diabetes melli tus, Hypertension. Past surgical history: Reports: (Left Tib, Fi b). Alcohol use: social Drug use: Denies recreational drugs Smoking status for patients 13 years old or olde r: Current every day smoker Packs per day: 2 Medications: Current Hospital Medications: Blood Formation,Coagulation Sig/Marie Start time Last Medication Dose Route Stop Time Status Admin Tirofiban HCl 0 .STK-MED ONE 03/18 1629 DC (AGGRASTAT) .ROUTE Heparin Sodium/ 500 ML .STK-MED ONE 03/18 1553 DC Sodium Chloride IV (HEPARIN 1000 UNITS/ NS 500ML) Ticagrelor 0 .STK-MED ONE 03/18 1546 DC (BRILINTA) .ROUTE Heparin Sodium 0 .STK-MED ONE 03/18 1522 DC (HEPARIN SODIUM) .ROUTE Heparin Sodium/ 1,000 ML .STK-MED ONE 03/18 152 2 DC Sodium Chloride IV (HEPARIN 1000 UNITS/ NS 500ML) Cardiovascular Drugs Sig/Marie Start time Last Medication Dose Route Stop Time Status Admin Atorvastatin Calcium 40 MG BEDTIME 03/18 2100 U NV (LIPITOR) PO 04/17 2101 Diltiazem HCl 0 .STK-MED ONE 03/18 1632 DC (CARDIZEM) .ROUTE Nicardipine HCl 0 .STK-MED ONE 03/18 1632 DC (CARDENE I.V.) .ROUTE Nitroglycerin/ 250 ML .STK-MED ONE 03/18 1522 D C Dextrose IV (NITROGLYCERIN IN D5W) Central Nervous System Agents Sig/Marie Start time Last Medication Dose Route Stop Time Status Admin Aspirin 81 MG DAILY 03/19 0900 UNV (CHILDREN'S ASPIRIN) PO 04/18 0901 Acetaminophen 650 MG Q4H PRN PRN 03/18 170 PEN D (TYLENOL) PO 04/17 170 Morphine Sulfate 2 MG Q4H PRN PRN 03/18 170 UN V (morphine SULFATE (C- IV 03/20 1706 II)) Morphine Sulfate 0 .STK-MED ONE 03/18 1643 DC (morphine SULFATE (C- .ROUTE II)) Fentanyl Citrate 0 .STK-MED ONE 03/18 1528 DC (SUBLIMAZE (C-II)) .ROUTE Midazolam HCl 0 .STK-MED ONE 03/18 1528 DC (VERSED (C-IV)) .ROUTE Lidocaine 0 .STK-MED ONE 03/18 1522 DC (XYLOCAINE 1%) .ROUTE Diagnostic Agents Sig/Marie Start time Last Medication Dose Route Stop Time Status Admin Iopamidol 0 .STK-MED ONE 03/18 1644 DC (ISOVUE-300) .ROUTE Iopamidol 0 .STK-MED ONE 03/18 1522 DC (ISOVUE-300) .ROUTE Electrolytic, Caloric, And Mercedes Sig/Marie Start time Last Medication Dose Route Stop Time Status Admin Dextrose/Water 12.5 GM ASDIR PRN 03/18 174 UNV (DEXTROSE 50% IN IV 04/17 1746 WATER) Dextrose/Water 25 GM ASDIR PRN 03/18 174 UNV (DEXTROSE 50% IN IV 04/17 1746 WATER) Sodium Chloride 50 ML .STK-MED ONE 03/18 1636 DC (SODIUM CHLORIDE IV 0.9%) Sodium Chloride 100 ML .STK-MED ONE 03/18 1633 DC (SODIUM CHLORIDE IV 0.9%) Gastrointestinal Drugs Sig/Marie Start time Last Medication Dose Route Stop Time Status Admin Ondansetron HCl 4 MG Q8H PRN PRN 03/18 1705 UNV (ZOFRAN) IV 04/17 1706 Hormones And Synthetic Substit Sig/Marie Start time Last Medication Dose Route Stop Time Status Admin Insulin Human Lispro See Dose AC HS 03/18 2100 UNV (HumaLOG) Insts (1) SUBQ 04/17 2101 Glucagon 1 MG ASDIR PRN 03/18 1745 UNV (GLUCAGON) IM 04/17 1746 Skin And Mucous Membrane Agent Sig/Marie Start time Last Medication Dose Route Stop Time Status Admin Mupirocin 1 APPLIC BID 03/18 2100 UNV (BACTROBAN NASAL - NASAL 03/23 0901 ADULT ICU) Dose Instructions: (1)Insulin Human Lispro (HumaLOG): LOW DOSE SLIDING SCALE Allergies: Coded Allergies: No Known Allergies (03/18/23) 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 Cardiovascular: Denies: chest pain, DWYER (dyspnea on exertion). GI: Denies: abdominal pain, nausea, vomiting. Heme: Denies: bleeding. Objective Physical Exam VS/I O: Patient Weight and BMI Weight (kg): BMI: Medications: Active Meds + DC'd Last 24 Hrs Aspirin (CHILDREN'S ASPIRIN) 81 MG DAILY PO (UNV ) Atorvastatin Calcium (LIPITOR) 40 MG BEDTIME PO (UNV) Insulin Human Lispro (HumaLOG) LOW DOSE SLIDING SCALE AC HS SUBQ (UNV) Mupirocin (BACTROBAN NASAL - ADULT ICU) 1 APPLIC BID NASAL (UNV) Dextrose/Water (DEXTROSE 50% IN WATER) 12.5 GM A SDIR PRN IV (UNV) Dextrose/Water (DEXTROSE 50% IN WATER) 25 GM ASD IR PRN IV (UNV) Glucagon (GLUCAGON) 1 MG ASDIR PRN IM (UNV) Acetaminophen (TYLENOL) 650 MG Q4H PRN PRN PO (P END) Morphine Sulfate (morphine SULFATE (C-II)) 2 MG Q4H PRN PRN IV (UNV) Ondansetron HCl (ZOFRAN) 4 MG Q8H PRN PRN IV (UN V) Iopamidol (ISOVUE-300) 0 .STK-MED ONE .ROUTE (DC ) Morphine Sulfate (morphine SULFATE (C-II)) 0 .ST K-MED ONE .ROUTE (DC) Sodium Chloride (SODIUM CHLORIDE 0.9%) 50 ML .ST K-MED ONE IV (DC) Sodium Chloride (SODIUM CHLORIDE 0.9%) 100 ML .S TK-MED ONE IV (DC) Diltiazem HCl (CARDIZEM) 0 .STK-MED ONE .ROUTE ( DC) Nicardipine HCl (CARDENE I.V.) 0 .STK-MED ONE .R OUTE (DC) Tirofiban HCl (AGGRASTAT) 0 .STK-MED ONE .ROUTE (DC) Heparin Sodium/Sodium Chloride (HEPARIN 1000 UNI TS/NS 500ML) 500 ML .STK-MED ONE IV (DC) Ticagrelor (BRILINTA) 0 .STK-MED ONE .ROUTE (DC) Fentanyl Citrate (SUBLIMAZE (C-II)) 0 .STK-MED O NE .ROUTE (DC) Midazolam HCl (VERSED (C-IV)) 0 .STK-MED ONE .RO RICARDA (DC) Heparin Sodium (HEPARIN SODIUM) 0 .STK-MED ONE . ROUTE (DC) Heparin Sodium/Sodium Chloride (HEPARIN 1000 UNI TS/NS 500ML) 1,000 ML .STK- MED ONE IV (DC) Iopamidol (ISOVUE-300) 0 .STK-MED ONE .ROUTE (DC ) Lidocaine (XYLOCAINE 1%) 0 .STK-MED ONE .ROUTE ( DC) Nitroglycerin/Dextrose (NITROGLYCERIN IN D5W) 25 0 ML .STK-MED ONE IV (DC ) General appearance: alert, awake, oriented, no r espiratory distress Head/Eyes: atraumatic, normocephalic, PERRL Neck: no JVD Cardiovascular: normal heart sounds, reg ular rate and rhythm, normal S1/S2, no ectopy Respiratory: aerating well, symmetric expansion, no distress Abdomen: obese, soft, no distention, no guarding Extremities: moves all, no clubbing, no cyanosis , no edema, R groin soft, no hematoma Musculoskeletal: normal inspection, no muscle sp asm Neuro/PUPPET ENGINEER: alert, oriented X 3, no sensory defic its Psychiatry: normal affect Results Findings/Data: Laboratory Tests 03/18 03/18 1618 1534 Coagulation Activated Coag Time (74 - 137 SEC) 275 H 281 H Microbiology: 03/18 1705 NASAL: MRSA Screen - ORD Results: labs reviewed, vital signs reviewed, vi carson signs stable, current med profile rev'd Treatment Prophylaxis Treatment Prophylaxis Oxygen: nasal cannula Lines: peripheral Diagnosis, Assessment Plan Free text DxA P: 52 year old male patient hx CAD s/p multiple andrew nts, systolic heart failure transferred from [facility] with STEMI. STEMI: Coronary Artery Disease Presented with chest pain in ventricular tachycardia s/p cardioversion. Repeat EKG showed STEMI Arrived via life flight straight to microbiology lab technician. Dr James placed 4 stents to LAD Aspirin, Statin, Brilinta. Metal Products Fabricator Assembler would li jennifer to start beta luís tomorrow Nitroglycerin drip titrate for chest pain. Haile wilks PRN Uses Entresto and Ziac as outpatient Patient states he has been referred for defibrillator placement. Does not know Ejection Fraction Check Echo, BNP, CK Monitor for arrythmias ARIEL Unknown baseline renal function. Creatinine 1.37 at outside facility. Will follow labs here May acutely worsen post cath . Not a candidate for IV hydration as patient likely has depressed EF Consider nephrology consult as needed Diabetes Does not take any meds, reports diet managment Check A1C Tobacco Abuse Smokes 2 PPD Counseled against smoking PPX Lovenox Cardiac Diet Critical Care time 40 mins includes time spent managing nitro drip, time spent at bedside, review of previous record, non proce dural Pamela Lindquist 03/18/23 1833: Attestations Attestation needed: supervising physician Physician Attestation Agree w/findings plan: Services and addendum: Agree with the findings and plan as documented b y Suzette Wang NP Patient was seen and examine d. I reviewed the medical records and the available data I agree with the documented examination fin dings, assessment and plan of care. Discussed with cardiology and with the patient. at 1801 Electronically Signed by Pamela Lindquist MD on 03/18 at 7187 [facility] #:[id number] END OF REPORT 2023-03-18 17:40:00-00:00 [id number] [place] [address] PATIENT NAME: CHARAN RESTREPO ADMIT DATE: 03/18/23 ACCOUNT NO: [id number] ROOM NO: Z.I13 AGE: 52 REPORT TYPE: ELECTROCARDIOGRAM SEX: M ADMITTING PHYSICIAN:Jesusita Osuna MD ATTENDING PHYSICIAN:Jesusita Osuna MD Order: [id number] Test Reason : VT Test Date/Time Stamp: SunMar 18 2023 17:40:32 Blood Pressure : / mmHG Vent. Rate : 072 BPM Atrial Rate : 072 BPM P-R Int : 138 ms QRS Dur : 092 ms QT Int : 406 ms P-R-T Axes : 041 033 108 degree s QTc Int : 444 ms Normal sinus rhythm Inferior infarct , age undetermined Anterolateral infarct , age undetermined Abnormal ECG No previous ECGs available Confirmed by MARIANNA SCHILLING ([id number]) on 03/18/2023 8:02:58 PM Referred By: Self Referred Confirmed by:MARIANNA MARRERO at 2002 PATIENT NAME: CHARAN RESTREPO 387 2023-03-18 17:40:00-00:00 [id number] [place] [address] PATIENT NAME: CHARAN RESTREPO ADMIT DATE: 03/18/23 ACCOUNT NO: [id number] ROOM NO: Z.503 AGE: 52 REPORT TYPE: ELECTROCARDIOGRAM SEX: M ADMITTING PHYSICIAN:Montez Jernigan MD ATTENDING PHYSICIAN:Montez Jernigan MD Order: [id number] Test Reason : VT Test Date/Time Stamp: SunMar 18 2023 17:40:32 Blood Pressure : / mmHG Vent. Rate : 072 BPM Atrial Rate : 072 BPM P-R Int : 138 ms QRS Dur : 092 ms QT Int : 406 ms P-R-T Axes : 041 033 108 degree s QTc Int : 444 ms Normal sinus rhythm Inferior infarct , age undetermined Anterolateral infarct , age undetermined Abnormal ECG No previous ECGs available Confirmed by MARIANNA SCHILLING ([id number]) on 03/20/2023 5:50:07 PM Referred By: Self Referred Confirmed by:MARIANNA MARRERO at 1750 PATIENT NAME: CHARAN RESTREPO 387 2023-03-18 17:25:00-00:[address] [facility] ([facility]) Hospitalist History Physical REPORT#:[id number] REPORT STATUS: Signed DATE:03/18/23 TIME: 1724 PATIENT: CHARAN RESTREPO UNIT #: [id number] ROOM/BED: [address] : 69 AGE: 52 SEX: M ATTEND: Darrell Jernigan MD ADM AUTHOR: Davi Davison MD, MPH R2 * ALL edits or amendments must be made on the [employer]/computer document * Davi Davison 03/18/231724: History of Present Illness HPI Chief complaint: CHEST PAIN PCP: PCP: Jesusita Osuna MD HPI: 52 y/o M PMH DM2, HLD, CAD s/p 2 stents, HFpEF b orderline, tobacco use, arthritis presented to [facility] for chest pain. Started feeling lightheaded, having chest pain earlier today. He went to the ER where it was found that he w as in vtach at 240 BPM. Other than the above sx asx, vitals stable. Pt received amiodarone was starte d on an amiodarone drip. He received synchronized cardio version at 100J which converted him to sinus rhythm. He was transferred to this facility for further cardiac testing. Upon initial arrival here it was found that he h ad V1/V2 ST elevations consistent w/ STEMI. He was emergently taken for [facility] w/ Dr. James. C notable for multiple obs tructions/near obstructions near his previous 2 LAD stents requiring 4 additional stents. EF 20%. Pl ease see cardiology note for more accurate/additional details. 01/16/23 cath - LAD CAD w/ stent, POBA LAD. 3 echo - EF 40-45%. Has been smoking 1-2 PPD for the past 30 years. At this time pt reports feeling well, generally improved. Has some chest discomfort but much improved over prior. Has a persistent cough that he says is typical for him. History Past Medical Surgical Hx Patient History: 1. Hypertension 2. Hyperlipidemia 3. Coronary artery disease 4. Heart failure 5. History of heart artery stent 6. Tobacco use Family History Family history: Reports: Heart disease. Social History Alcohol use: Alcohol use (social) Drug use: Denies recreational drugs Smoking status for patients 13 years old or olde r: Current every day smoker Packs per day: 1 Years smoked: 30 Medication/Allergy-Vaccine Hx Allergies: Coded Allergies: No Known Allergies (03/18/23) Review of Systems Constitutional: Denies: chills, fatigue, fever, generalized weak ness, malaise. Skin: Denies: abrasion, rash, other. Allergy/Immun: Denies: allergic reaction, anaphylaxis. Eyes: Denies: visual loss/blurred. ENT: Denies: hearing loss. Respiratory: Denies: DWYER (dyspnea on exertion), non productiv e cough, pleurisy, pleuritic pain, pneumonia, productive cough (sputum), SOB, wheezing. Cardiovascular: Denies: chest pain, DWYER (dyspnea on exer tion), edema, orthopnea, palpitations. GI: Denies: abdominal pain, constipation, diarrhea, nausea, vomiting. : Denies: dysuria, flank pain. Musculoskeletal: Denies: arthritis, extremity pain, extremity swe lling, joint pain, joint swelling. Neuro: Denies: bladder dysfunction, bowel dysfunction, change in LOC, confusion, dizziness, focal weakness, gait problem, headach e, lightheaded. Psych: Denies: agitation, anxiety. All systems rev neg: except as noted OBJECTIVE VS/I O: Patient Weight and BMI Weight (kg): BMI: General appearance: alert, awake, oriented Head/Eyes: atraumatic, normocephalic ENT: moist mucosal membranes, normal dentition Neck: full range of motion, supple/no meningismu s Cardiovascular: normal capillary refill, normal heart sounds, regular rate rhythm Respiratory: wheezing (monophonic expiratory upp er), aerating well, clear to auscultation, symmetric expansion, no distress Abdomen: non-tender, soft, no distention Extremities: moves all, normal capillary refill, normal range of motion Musculoskeletal: normal inspection, painless ran ge of motion Neuro/PUPPET ENGINEER: alert, oriented X 3, CNII-XII intact, normal speech Skin: dry, normal temperature Psychiatry: normal affect, normal judgment/insig ht Results Findings/Data: Laboratory Tests: 03/18 03/18 1618 1534 Coagulation Activated Coag Time (74 - 137 SEC) 275 H 281 H Diagnosis, Assessment Plan Problem List/A P: 1. STEMI (ST elevation myocardial infarction) 2. Hypertension 3. Hyperlipidemia 4. Coronary artery disease 5. Heart failure 6. History of heart artery stent 7. Wheezing 8. Tobacco use Free Text A P: 52 y/o M PMH HTN, HLD, CAD s /p 2 stents, HFpEF borderline presented to [facility] for chest pain. STEMI (ST elevation myocardi al infarction) : Hypertension : HLD : CAD : HF : Hx stent 03/18 AM - chest pain/dizziness, found to be in v tach at [facility]. Placed on amiodarone drip, given sync cardioversion which resolved issue. Transferred here per Dr. Schilling, found to have V1/V2 ST elevation, taken for [facility] w/ Dr. James - 4x stent placed. EF 20%. Per Dr. James - continue nitro drip. Defer restar t home BP rx Given tirofiban in [facility], ASA, ticagrelor Avoid heparin products at this time Plan: Cardio management per Dr. James Rx: Nitro drip ASA 81, ticagrelor 90 BID Atorvastatin 40 Morphine 2 IV q6 - consider d/c after 03/20 or 3 1 Home rx (deferred): Entresto 24-26 BID Bisoprolol/HCTZ 56.25 DM2 Unknown A1c, is on jardiance unknown dose at [facility] e A1c pending, LDSS Tobacco hx : Wheezing 30+ pack-year smoking hx Mild expiratory wheezing, possible COPD componen t Nicotine patch, consider duonebs/maintenance inh amada worsening SOB/cough Arthritis Chronic arthritis of both kn ees/hips, was told that he should have replacements at some point Rx: Home norco 10 BID PRN Code: FULL Diet: Cardiac DVT: SCD Consultants: cardiology Quality: Gen Med Crit Care VTE Prophylaxis VTE prophylaxis initiated: yes Current Medications Current medication review: I attest that the foregoing medication list in t he medical record is true, accurate, and complete to the best of my knowled Jesusita Lindquist 03/18/23 1851: Attestations Teaching Physician Attestation 1st visit w/ resident: I was present with the resident during the histo ry and exam. I discussed the case with the resident and . . . agree with the findings and plan as documented i n the resident's note. agree with the findings and plan as documented i n the resident's note EXCEPT: Electronically Signed by Davi Davison MD, MPH R2 on 0 03/18/23 at 1819 Electronically Signed by Jesusita Osuna MD on 02/11 at 1506 RPT #:[id number] END OF REPORT 2023-03-18 17:24:00-00:00 [id number] [place] [address] PATIENT NAME: CHARAN RESTREPO ADMIT DATE: 3 ACCOUNT NO: [id number] ROOM NO: Z.503 AGE: 52 REPORT TYPE: CARDIAC CATHETERIZATION REPORT SEX: M ADMITTING PHYSICIAN:Montez Jernigan MD ATTENDING PHYSICIAN:Montez Jernigan MD PROCEDURE DATE: 03/18/2023 PROCEDURES PERFORMED: 1. Percutaneous coronary intervention of proxima l and mid left anterior descending. 2. Intravascular ultrasound examination of left anterior descending. 3. Left heart catheterization and left ventricul ar angiogram. REASON FOR PROCEDURE: The diamond tee is a 52-year-old male with a history of heart failure, reduced EF and PCI of the LAD, who was admitted to [facility] in [place] with chest pain. He then had VT had to b e shocked and had ST elevations in V1, V2, V3. He was life-flighted to [facility] where we emergently brought into the microbiology lab technician. SEDATION USED: Moderate sedation. AIR TANK ASSEMBLER: Paco James MD PROCEDURAL DETAILS: The patient was brought to [facility] microbiology lab technician in an emergent fashion. He was draped in typical sterile fashio n. I obtained right femoral arterial access under ultras ound guidance and inserted a 6-Bahraini sheath using a micropuncture kit. At this point, we had a lot o f difficulty obtaining pressures from the manifold, this caused a delay in our procedure. After changing the cable several times, we were eventu ally able to get pressure and decided to proceed with the procedure. I took a JR4 diagnostic catheter up to the difficulty getting press ure reliably. We were able to get it, so I brought a JR4 diagnostic catheter up t o the aortic root and cannulated the right coronary artery and performed an angiogram in two views. I then took a JL4 diagnostic catheter up to the aortic root and perfo rmed the angiogram, which demonstrated the thrombus in the proximal LAD and the stenosi s in the distal LAD. At this point, we could not get pressure and this caused a delay, so we attempted to change at the manifold and then we changed out t he cables and then we changed out and then we restarted the system and finally got pressure on board. During this time, the patient was chest pain free and t here was ARELY 3 flow. We then administered 9000 units of heparin intra-arteria l. I took a EBU 4 6-Bahraini guide up to the aortic root over the J wire and cannulated the left main. I then took a Runthrough wire and navigated the lesion and parked the wire in the distal LAD. I then ballooned with a 2.5 x 15 mm compliant balloon in the proximal LAD. I then took a 2 x 12 mm compliant balloon and ballooned the lesion in the distal LAD. I then took the IVUS catheter and examined the vessel to size the vessel. I then selected a 2.75 x 15 Valerio Wharton stent and positioned in the distal LAD overlapping with the old stents and deployed it to PATIENT NAME: CHARAN RESTREPO 387 nominal pressure. I then pulled the stent delive ry balloon back and expanded it. I then reinflated the balloon to high pressu re. I then removed that stent delivery system and brought up to 3.5 x 22 mm Wharton stent and positioned in the proximal LAD overlapping with the ol d stents. I then deployed that nominal pressure. I then advanced the stent balloon deli very system forward and reinflated the stent deliver y system to high pressure. At this point, there was some evidence of no reflow, so I gave nitroglycerin IV 200 mcg and repeated this for a couple doses. The flow improved some, but there appeared to be a haziness in the mid LAD where diagonal 1 takes of f and there was a concern for thrombus there and additionally, there was a septal #2 wa s a very large septal that appeared to be compromised. I took a second Runt hrough wire and attempted to cannulate that second septal, but was un successful. At this point, the patient was having a lot of chest pa in and I was not sure if it was due to no reflow or due to this infarct and sept al, so I took a second Runthrough wire and tried to cannulate the septal #2, but was unsucce ssful. Exchanged for a Rukhsana blue wire, but again could not cannulate the septal branch. I then decided to deal with haziness in the mid LAD, so we positioned a 2.75 x 12 mm [place] Wharton stent in the mid LAD and deployed it to nominal pressure. I then advanced the stent balloon a little bit forward and then inflated to high pressure and then pulled back a little bit and inflated again to high pre ssure. The stent was a second layer of stents, so I felt comfortable b allooning outside the stent margins as that the area of the balloon was all covered by stent. At this point, there was still no reflow. I did take the IVUS catheter down and did not see any evidence of dissection, but there did appear to b e a stenosis distal to the most distal stent and the patient was st ill having a lot of chest pain. I then positioned a 2.25 x 15 mm Valerio Wharton s tent distally and deployed it to slightly less than nominal pressure. I then pulled the stent balloo n back slightly and then reinflated the stent to delivery system to high pressure. At this point, there again appeared to be no refi ll and the patient was still having chest pain. So, I gave diltiazem at 100 mcg per mL down the coronary and I repeated this at 200 mcg allotments for a total o f 1000 mcg. As we gave the medicines, the patient's symptoms improved a lot and he became almost omega st pain free. We decided to hang a nitro drip and gave a bolus of Aggrastat and the patient was also even before this loaded with 180 mg of Brilinta. I th en took another angiogram, which then showed ARELY 3 flow and 0% stenosis, s o I decided to end the procedure. I removed the guide and exchanged for a pigtail and crossed the aortic valve and then perfor med an LV angiogram which showed an EF of 20% and an EDP of 25. I then performed the pullback and the n removed the pigtail over a wire. I then closed the arteriotomy with a Percl ose device. PROCEDURAL FINDINGS: The RCA is a large caliber vessel, it gives the PDA and PL branches. There is a diffuse minimal coronary ar savita disease in the proximal section. The left main is a large calibe r vessel and gives rise to the LAD and left circumflex. There is no significant left ma in disease. So, left circumflex is a large caliber vessel germán t gives off several OM branches. There is minimal diffuse disease in the mid and distal portions. The LAD is a moderate caliber vessel, which has 2 overlapping stents in the midportion. In the proximal portion, there appears to be stenos is with a large burden of thrombus and distal to the previously placed andrew nts, there is a 90% stenosis. After treating the patient w ith the 3.5 x 22 mm, 2.75 x 15 mm, 2.75 x 12 mm and 2.25 x 15 mm Wharton stent, there was 0% stenos is in ARELY 3 flow and no evidence of wire perforation or guide dissection . ESTIMATED BLOOD LOSS: There was 20 mL of blood l oss. PATIENT NAME: CHARAN RESTREPO 387 COMPLICATIONS: No complications. RECOMMENDATIONS: Recommend 4-hour of bed rest. Continue aspirin and ticagrelor 90 mg b.i.d. Wean nitro drip tomorrow. Would hol d off on diuretics until tomorrow unless the patient starts shortness of breath, in which case I would give IV Lasix and hold off on beta luís until tomorrow. Dictated By: Paco James MD Date Dictated: 03/18/2023 17:24:48 Date Transcribed: 03/18/2023 22:18:00 SYED/JULIO CESAR Receipt ID: [id number] Authenticated by Paco James MD On 03/20/2023 04:12:22 PM Electronically Signed by Paco James MD on at 0412 PATIENT NAME: CHARAN RESTREPO 387 2023-03-18 15:02:00-00:00 [facility] ([facility]) Cardiology Consultation REPORT#:[id number] REPORT STATUS: Signed DATE:05/28/23 TIME: 1502 PATIENT: CHARAN RESTREPO UNIT #: [id number] ROOM/BED: [facility] : 69 AGE: 52 SEX: M ATTEND: Markie Osuna MD ADM AUTHOR: Paco James MD * ALL edits or amendments must be made on the el [employer]/computer document * See Addendum Diagnosis, Assessment Plan Free Text DxA P Notes Free Text DxA P Notes: The patient is a 52 year old male with CAD who p resented to outside er with chest pain, VT s/p cardiover rukhsana, found to have st elevation in v1.v2 consistent with stemi. -plan for emergent LHC Electronically Signed by Paco James MD on 02/20 06/13 at 1503 Addendum 1: 03/18/23 1809 by Paco James MD Patient was found to have thrombotic lesion in t he proximal LAD and another stenosis in the distal LAD status post PCI x4, p atient was loaded with ticagrelor and given a loading dose of Aggrastat . Recommend 4 hours bedrest would hold off on beta-block ers for now, if the patient becomes short of breath give IV Lasix (LVEDP was high at 25, EF about 20 %) Critical Care Time: The patient is criti madai ill with one or more vital organ system dysfunction resulting in a high probabili ty of imminent or life threatening deterioration in the patient's condition. I spent 35 minutes of unit time on the following activi ties: reviewing the EMR, reviewing hemodynamic data, reviewing telemetry data, discussing the patient 's care with the multi- disciplinary team, and documenting the relevant findings, assessment, and recommendations in the [facility]'s electronic health record. Time is separate from any billable procedures. Electronically Signed by Paco James MD on 02/20 06/13 at 4848 RPT #:[id number] END OF REPORT
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
[2023-04-27 17:08] VITALS: TEMP 97.7
[2023-04-27 17:09] VITALS: BP 124/79; O2SAT 96
== END 2023-04-27 17:01 | disposition home or self-care (01) ==
LOC: ER 15:47
DX: S16.1XXA Strain of muscle, fascia and tendon at neck level, initial encounter (principal); V49.40XA Driver injured in collision with unspecified motor vehicles in traffic accident, initial encounter
CPT/HCPCS: 72040; 99284

== ENCOUNTER 2023-11-05 02:27 | Inpatient (IN) | payer OTHER, SELFPAY ==
--- OUTSIDE RECORDS SUMMARY | 2023-11-05 02:29 | XMS REPORT | Continuity of Care Document ---
Author Name Unknown Address [address] [facility] [place] [address] [facility] thconnect Address [address] [facility] [address] [place] [address] Care Team Providers Care Ice Cream Maker Name Role Phone Carmen Spencer Attending Clinician Unavailable Montez Jernigan Attending Clinician Unavailable Montez Jernigan Admitting Clinician Unavailable Payers Payer Name Policy Type Policy Number Effective Date Expirati on Date Source [facility] 6 [id number] 2019 00:00:00 [facility] [place] Problems Condition Name Condition Details Condition Category Status Onset Date Resolution Date Last Treatment Date Treating Clinician Comments Source [id number] Chronic pain syndrome Problem [facility] [place] [id number] Essential hypertensi on Problem [facility] [place] [id number] Coronary stent patent Problem [facility] [place] [id number] Coronary artery disease of [place] heart with stable angina pectoris, unspecifie d vessel or lesion type Problem [facility] [place] [id number] Type 2 diabetes mellitus with hyperglyce solange, without long-term current use of insulin Problem [facility] [place] [id number] Nicotine abuse Problem [facility] [place] Allergies, Adverse Reactions, Alerts Allergy Name Allergy Type Status Severity Reaction(s) Onset Date Inactive Date Treating Clinician Comments Source No Known Allergie s DA Active U 03-18 00:00: 00 [facility] Social History Social Habit Start Date Stop Date Quantity Comments Source History of Tobacco Use Current Smoker [facility] [place] Sex Assigned At [facility] Smoking Status Start Date Stop Date Source Current Smoker 2022-11-09 00:00:00 [facility] [place] Medications Ordered Medication Name Filled Medication Name Start Date Stop Date Current Medication? Ordering Clinician Indication Dosage Frequency Signature (SIG) Comments Components Source Metoprolol Succinate ER 25 MG Metoprolol Succinate ER 25 MG No 1{table t} QD Metoprolol Succinate ER 25 MG Metoprolol Succinate ER 25 MG Metoprolol Succinate ER 25 MG No Metoprolol Succinate ER 25 MG Jardiance 25 MG Jardiance 25 MG No 1{table t} QD Jardiance 25 MG Plavix 75 MG Plavix 75 MG No 1{table t} QD Plavix 75 MG Ramipril 2.5 MG Ramipril 2.5 MG No 1{capsu le} QD Ramipril 2.5 MG Atorvastati n Calcium 80 MG Atorvastati n Calcium 80 MG No 1{table t} QD Atorvastat in Calcium 80 MG Metoprolol Succinate ER 25 MG Metoprolol Succinate ER 25 MG No 1{table t} QD Metoprolol Succinate ER 25 MG Metoprolol Succinate ER 25 MG Metoprolol Succinate ER 25 MG No Metoprolol Succinate ER 25 MG Jardiance 25 MG Jardiance 25 MG No 1{table t} QD Jardiance 25 MG Plavix 75 MG Plavix 75 MG No 1{table t} QD Plavix 75 MG Ramipril 2.5 MG Ramipril 2.5 MG No 1{capsu le} QD Ramipril 2.5 MG Atorvastati n Calcium 80 MG Atorvastati n Calcium 80 MG No 1{table t} QD Atorvastat in Calcium 80 MG Vital Signs Vital Name Observation Time Observation Value Comments S madi height 2022-10-10 10:40:00 70 [in_i] Commo n [facility] weight 2022-10-10 10:40:00 198 [lb_av] Comm on [facility] temperature 2022-10-10 10:40:00 97.9 [degF] Com mon [facility] bmi 2022-10-10 10:40:00 28.41 kg/m2 Comm on [facility] oximetry 2022-10-10 10:40:00 98 % Commo n [facility] respiratory rate 2022-10-10 10:40:00 17 /min [facility] [place] blood pressure systolic 2022-10-10 10:40:00 132 mm[Hg] [facility] blood pressure diastolic 2022-10-10 10:40:00 87 mm[Hg] [facility] Procedures Procedure Date / Time Performed Performing Clinicia n Source [id number] [facility]23[facility]03[id number]:[address] [facility] [id number] 2023-03-18 00:00:00 [facility] [id number] 2023-03-18 00:00:00 [facility] [id number] 2023-03-18 00:00:00 [facility] [id number] 2023-03-18 00:00:00 [facility] [id number] 2023-03-18 00:00:00 [facility] Encounters Start Date/Time End Date/Time Encounter Type Admission Type Attending Clinicians Care Facility Care Department Encounter ID Source 2022-11-07 07:49:00 Outpatient Carmen Spencer [facility] [id number] [facility] [place] 2022-10-17 15:16:02 Outpatient Carmen Spencer [facility] [id number] [facility] [place] 2022-10-11 12:49:02 Outpatient Carmen Spencer [facility] [id number] [facility] [place] 2022-10-10 10:34:05 [facility] [id number] [facility] [place] 2023-05-16 11:13:22 2023-05-16 11:13:22 Outpatient [facility] [id number] Jefferson Chen 2023-03-18 14:57:00 2023-03-20 16:25:00 Inpatient Montez Kay [facility] [id number] [address] [facility] 2023-02-19 00:00:00 2023-02-19 00:00:00 (TEL) [facility] [id number] [facility] [place] 2022-10-10 00:00:00 2022-10-10 00:00:00 OFFICE VISIT ESTAB PT LEVEL 4 [facility] [id number] [facility] [place] Results Test Description Test Time Test Comments Results Result Co mments Source BASIC METABOLIC [id number] 07:35:00* Test Item Value Reference Range Interpretation Comme nts SODIUM (test code = NA) 134 MMOL/L 137-145 L POTASSIUM (test code = K) 3.6 MMOL/L 3.5-5.1 N CHLORIDE (test code = CL) 103 MMOL/L 98-107 N CARBON DIOXIDE (test code = CO2) 26 MMOL/L 22-30 N GLUCOSE (test code = GLU) 152 MG/DL 74-106 H BLOOD UREA NITROGEN (test code = BUN) 20 MG/DL 9-20 N GLOMERULAR FILTRATION RATE (test code = GFR) > 60 The Glomerular Filtration Rate is a calculated parameterbased on serum Creatinine, patient age and sex. GFR valuesless than 60 mL/min/1.73 square meters are indicative ofChronic Kidney Disease. Values less than 15 mL/min/1.73square meters indicate Kidney failure. The calculation forGFR is based on the CKD-EPI (2020) calculation. This formulais race indifferent and is the recommended formula for GFRby the National Kidney Foundation for Adults.The GFR will not calculate if the sex is unknown or if thepatient's age is <18 years. CREATININE (test code = CREAT) 0.80 MG/DL 0.66-1.25 N CALCIUM (test code = CA) 8.6 MG/DL 8.4-10.2 N [id number] 07:35:00* Test Item Value Reference Range Interpretation Comme nts MAGNESIUM (test code = MAG) 2.0 MG/DL 1.6-2.3 N GLUCOSE BEDSIDE [id number] 06:26:00* Test Item Value Reference Range Interpretation Comme nts GLUCOSE BEDSIDE TESTING (shanna t code = GLUBED) 187 MG/DL 60-99 H GLUCOSE BEDSIDE [id number] 04:13:00* Test Item Value Reference Range Interpretation Comme nts GLUCOSE BEDSIDE TESTING (shanna t code = GLUBED) 149 MG/DL 60-99 H GLUCOSE BEDSIDE [id number] 23:41:00* Test Item Value Reference Range Interpretation Comme nts GLUCOSE BEDSIDE TESTING (shanna t code = GLUBED) 162 MG/DL 60-99 H GLUCOSE BEDSIDE [id number] 21:11:00* Test Item Value Reference Range Interpretation Comme nts GLUCOSE BEDSIDE TESTING (shanna t code = GLUBED) 203 MG/DL 60-99 H GLUCOSE BEDSIDE [id number] 19:59:00* Test Item Value Reference Range Interpretation Comme nts GLUCOSE BEDSIDE TESTING (shanna t code = GLUBED) 219 MG/DL 60-99 H GLUCOSE BEDSIDE [id number] 19:59:00* Test Item Value Reference Range Interpretation Comme nts GLUCOSE BEDSIDE TESTING (shanna t code = GLUBED) 253 MG/DL 60-99 H GLUCOSE BEDSIDE [id number] 19:58:00* Test Item Value Reference Range Interpretation Comme nts GLUCOSE BEDSIDE TESTING (shanna t code = GLUBED) 247 MG/DL 60-99 H HEPATIC FUNCTION [id number] 11:51:00* Test Item Value Reference Range Interpretation Comme nts TOTAL PROTEIN (test code = PROT) 6.5 G/DL 6.2-7.6 N Ortho Clinical D iagnostic has made us aware of newinformation regarding the potential interference ofEltrombopag (a bone marrow stimulant used to treatthrombocytonmenia and aplastic anemia) with specific assayson the Vitros 5600 of which Total Protein is one of thoseassays performed in our lab.[facility]ference [facility] determined thatEltrombopag does interfere with Vitros Total Protein asfollowsEltrombopag Interference for Vitros Product Total Protein: Eltrombopag Max Observed Avg. BiasConcentration Concentration Concentration 2.5 mg/dl 6.0 g/dl +0.41 +0.34 3.5 mg/dl 6.0 g/dl +0.50 +0.45 5 mg/dl 6.0 g/dl +0.73 +0.65 2.5 mg/dl 8.0 g/dl +0.44 +0.41 3.5 mg/dl 8.0 g/dl +0.55 +0.52 5 mg/dl 8.0 g/dl +0.86 +0.77 ALBUMIN (test code = ALB) 3.8 G/DL 3.5-5.0 N BILIRUBIN TOTAL (test code = BILT) 0.8 MG/DL 0.2-1.3 Eltrombopag Inte rference for Vitros Product TBil, BuBc: Assay Eltrombopag Analyte/ Max Observed Avg. Bias Concentration Concentration Concentration TBil 7mg/dl TBil/ 1.2mg/dl +0.23mg.dl +0.20mg/dlBuBc 3.5mg/dl Bu/0.8mg/dl +0.25mg/dl +0.24mg/dlBuBc 7 mg/dl Bu/14.2mg/dl +0.38mg/dl +0.25mg/dlBuBc 5mg/dl Bc/0mg/dl +0.25mg/dl +0.15mg/dlBuBc 3.5mg/dl Bc/2.8mg/dl +0.25mg/dl +0.23mg/dl BILIRUBIN DIRECT (test code = BILD) 0.0 MG/DL 0.0-0.3 N Eltrombopag Inte rference for Vitros Product TBil, BuBc: Assay Eltrombopag Analyte/ Max Observed Avg. Bias Concentration Concentration Concentration TBil 7mg/dl TBil/ 1.2mg/dl +0.23mg.dl +0.20mg/dlBuBc 3.5mg/dl Bu/0.8mg/dl +0.25mg/dl +0.24mg/dlBuBc 7 mg/dl Bu/14.2mg/dl +0.38mg/dl +0.25mg/dlBuBc 5mg/dl Bc/0mg/dl +0.25mg/dl +0.15mg/dlBuBc 3.5mg/dl Bc/2.8mg/dl +0.25mg/dl +0.23mg/dl SGOT/AST (test code = AST) 73 UNITS/L 17-59 H SGPT/ALT (test code = ALT) 49 UNITS/L 0-49 N ALKALINE PHOSPHATASE (test code = ALKP) 53 UNITS/L 38-126 N : add on to blood in labURINALYSIS [id number] 04:46:00* Test Item Value Reference Range Interpretation Comme nts UA COLOR (test code = COLU) YELLOW YELLOW UA APPEARANCE (test code = APPU) CLEAR CLEAR UA GLUCOSE DIPSTICK (test code = DGLUU) 1000 MG/DL NORMAL A UA BILIRUBIN DIPSTICK (test code = BILU) NEGATIVE MG/DL NEGATIVE UA KETONE DIPSTICK (test code = KETU) 5 MG/DL NEGATIVE UA SPECIFIC GRAVITY (test code = SGU) 1.020 1.003-1.030 N UA BLOOD DIPSTICK (test code = ABDI) NEGATIVE Oneal/mm3 NEGATIVE UA PH DIPSTICK (test code = CHI) 5.0 5.0-9.0 N UA PROTEIN DIPSTICK (test code = PROU) NEGATIVE MG/DL NEGATIVE UA UROBILINIOGEN DIPSTICK (test code = URO) NORMAL MG/DL NORMAL UA NITRITE DIPSTICK (test code = CESAR) NEGATIVE NEGATIVE UA LEUKOCYTE ESTERASE DIPSTICK (test code = LEUU) NEGATIVE /mm3 NEGATIVE SOURCE OF URINE: CLEAN CATCHGLYCOSYLATED HEMOGLOBIN [id number] 04:06:00* Test Item Value Reference Range Interpretation Comme nts GLYCOSYLATED HEMOGLOBIN (HA1C) (test code = GLYHGB) 9.3 % 4.8-5.9 H Any condition th at shortens erythocyte survival or decreasesmean erythrocyte age (e.g., recovery from acute blood loss,hemolytic anemia) will falsely lower HGBA1c resultsregardless of the method used. HGBA1c results from patientswith HbSS, HbCC, and HbSc must be interpreted with cautiongiven the pathological processes, including anemia,increased red cell turnover, transfusion requirements, thatadversely impact HGBA1c as a marker of long-term glycemiccontrol. Alternative forms of testing such as fructosamineshould be considered for these patients. MEAN BLOOD GLUCOSE (test code = MBG) 220 MG/DL 70-110 H BASIC METABOLIC [id number] 03:58:00* Test Item Value Reference Range Interpretation Comme nts SODIUM (test code = NA) 135 MMOL/L 137-145 L POTASSIUM (test code = K) 4.2 MMOL/L 3.5-5.1 N CHLORIDE (test code = CL) 105 MMOL/L 98-107 N CARBON DIOXIDE (test code = CO2) 25 MMOL/L 22-30 N ANION GAP (test code = GAP) 9 MMOL/L 14-24 L GLUCOSE (test code = GLU) 204 MG/DL 74-106 H BLOOD UREA NITROGEN (test code = BUN) 18 MG/DL 9-20 N GLOMERULAR FILTRATION RATE (test code = GFR) > 60 The Glomerular Filtration Rate is a calculated parameterbased on serum Creatinine, patient age and sex. GFR valuesless than 60 mL/min/1.73 square meters are indicative ofChronic Kidney Disease. Values less than 15 mL/min/1.73square meters indicate Kidney failure. The calculation forGFR is based on the CKD-EPI (2020) calculation. This formulais race indifferent and is the recommended formula for GFRby the National Kidney Foundation for Adults.The GFR will not calculate if the sex is unknown or if thepatient's age is <18 years. CREATININE (test code = CREAT) 0.70 MG/DL 0.66-1.25 N CALCIUM (test code = CA) 8.5 MG/DL 8.4-10.2 N [id number] 03:58:00* Test Item Value Reference Range Interpretation Comme nts MAGNESIUM (test code = MAG) 2.3 MG/DL 1.6-2.3 N CBC W/AUTO [id number] 03:45:00* Test Item Value Reference Range Interpretation Comme nts WHITE BLOOD CELL (test code = WBC) 15.9 K/MM3 3.8-9.8 H RED BLOOD CELL (test code = RBC) 5.94 M/MM3 3.95-5.67 H HEMOGLOBIN (test code = HGB) 17.2 G/DL 12.4-16.7 H HEMATOCRIT (test code = HCT) 50.2 % 35.9-49.5 H MEAN CELL VOLUME (test code = MCV) 85 fL 81.7-96.1 N MEAN CELL HGB (test code = MCH) 29.0 pg 27.6-33.2 N MEAN CELL HGB CONCETRATION (test code = MCHC) 34.3 % 32.9-35.5 N RED CELL DISTRIBUTION WIDTH (test code = RDW) 13.4 % 12.1-15.2 N PLATELET COUNT (test code = PLT) 210 K/MM3 129-368 N MEAN PLATELET VOLUME (test c ode = MPV) 10.5 fl 7.4-10.4 H NEUTROPHIL % (test code = NT%) 84.6 % 43-75 H IMMATURE GRANULOCYTE % (test code = IG%) 0.8 % 0.0-2.0 N LYMPHOCYTE % (test code = LY%) 8.0 % 14-44 L MONOCYTE % (test code = MO%) 5.3 % 4-13 N EOSINOPHIL % (test code = EO%) 0.8 % 0-6 N BASOPHIL % (test code = BA%) 0.5 % 0-2 N NUCLEATED RBC % (test code = NRBC%) 0.0 % 0-1.0 N NEUTROPHIL # (test code = NT#) 13.48 K/mm3 2.0-7.6 H IMMATURE GRANULOCYTE # (test code = IG#) 0.12 x10 3/uL 0-0.03 H LYMPHOCYTE # (test code = LY#) 1.28 K/mm3 1.0-3.8 N MONOCYTE # (test code = MO#) 0.84 K/mm3 0.1-0.8 H EOSINOPHIL # (test code = EO#) 0.12 K/mm3 0.0-0.2 N BASOPHIL # (test code = BA#) 0.08 K/mm3 0.0-0.2 N NUCLEATED RBC # (test code = NRBC#) 0.00 K/mm3 0.0-0.1 N [id number] 01:08:00* Test Item Value Reference Range Interpretation Comme nts TROPONIN-I (test code = TROPI) 3.570 NG/ML 0.012-0.033 HH CALLED TO YESI DING A & READBACK ON 03/19/23 AT 0107 BY Barrett Wang [id number] 22:08:00* Test Item Value Reference Range Interpretation Comme nts TROPONIN-I (test code = TROPI) 3.700 NG/ML 0.012-0.033 HH CALLED TO VLADIMIR MG. & READBACK ON 03/18/23 AT 2202 BY Michael Umana T GLUCOSE BEDSIDE [id number] 20:24:00* Test Item Value Reference Range Interpretation Comme nts GLUCOSE BEDSIDE TESTING (shanna t code = GLUBED) 211 MG/DL 60-99 H LIPOPROTEIN LDL [id number] 19:36:00* Test Item Value Reference Range Interpretation Comme nts LIPOPROTEIN LDL DIRECT (test code = LDLDIR) 112 mg/dL 100-129 N ========= R eference Interval: mg/dL mmol/L -----Optimal <100 <2.6Near/above optimal 100-129 2.6-3.3Borderline High 130-159 3.4-4.1High 160-189 4.1-4.9Very High >=190 >=4.9========= This LDL result is a direct measurement.======== = [id number] 19:36:00* Test Item Value Reference Range Interpretation Comme [facility] TROPONIN-I (test code = TROPI) 3.780 NG/ML 0.012-0.033 CALLED TO CHANTAL Burger& READBACK ON 03/18/23 AT 1849 BY Michael Umana XR CHEST [id number] 19:06:00 [facility] 1970 Sex: M Patient Name: CHARAN RESTREPO Unit No: [id number] EXAMS: CPT CODE: [id number] XR CHEST 1V [id number] LOCATION: Q15 HISTORY: 52-year-old male, history of chest pain COMMENT: A frontal chest radiograph was obtained atthe bedside at 6:12 p.m. The lungs are [...] ArleneRLA2 Orig Print D/T: S: 03/18/2023 (1908) [facility] NAME: CHARAN RESTREPO [address] PHYS: [place] [address] : 1970 AGE: 52 [id number] LOC: Z.I13 A PHONE #: [phone] EXAM DATE: 03/18/2023 STATUS: ADM IN FAX #: [phone] RADIOLOGY NO: PAGE 1 Signed ReportNT PRO-BRAIN NATRIURETIC PEPTI 2023-03-18 18:43:00* Test Item Value Reference Range Interpretation Comme nts NT PRO-BRAIN NATRIURETIC PEPTI (test code = PROBNP) 538.0 pg/mL INTERPRETAT ION OF RESULTS Results of this test should be used in accordance with the appropriate clinical guidelines and in conjunction with clinical presentation and other diagnostic tests. Clinical guidelines recommend using natriuretic peptides in both Emergency Department (ED) and outpatient settings for diagnosis or exclusion of heart failure (HF). The performance of the VITROS NT-proBNP II test was evaluated separately in each of these settings using published age-independent and age-dependent cutoffs. EMERGENCY DEPARTMENT SETTINGS/INPATIENT: For patients presenting to the ED settings with acute or worsening dyspnea and clinical suspicion of HF, the VITROS NT-proBNP II test results should be interpreted as indicated in the table below. NT-pro BNP II Test Age Group Interpretation of Results Results (pg/mL) <300 All Negative: Heart Failure Unlikely -->=300 to <450 22-<50 [place] Zone: Result >=300 to <900 50-<75 Indeterminate >=300 to <1800 >=75 - Consider other causes of NT-proBNP elevation ---------------->=450 22-<50 >=900 50-<75 Positive: Heart Failure likely >=1800 >=75 OUTPAT IENT SETTINGS: In the outpatient settings, the optimal use of natriuretic peptides is to exclude HF. Therefore, a lower rule-out cutoff which increases sensitivity and negative predictive value is needed, as patients can present with limited, less acute HF symptoms. For ambulatory patients presenting to outpatient facilities with clinical suspicion of HF not previously diagnosed and at least one sign, symptom or risk factor for HF, the VITROSNT-proBNP II test results should be interpreted as indicatedin the table below. NT-pro BNP II Test Age Group Interpretation of Results Results (pg/mL) <125 All Negative: Heart Failure Unlikely ---------------->=125 All Consider Heart Failure as well as other causes* of NT-proBNP elevation. GLYCOSYLATED HEMOGLOBIN [id number] 18:36:00* Test Item Value Reference Range Interpretation Comme nts GLYCOSYLATED HEMOGLOBIN (HA1C) (test code = GLYHGB) 9.1 % 4.8-5.9 H Any condition th at shortens erythocyte survival or decreasesmean erythrocyte age (e.g., recovery from acute blood loss,hemolytic anemia) will falsely lower HGBA1c resultsregardless of the method used. HGBA1c results from patientswith HbSS, HbCC, and HbSc must be interpreted with cautiongiven the pathological processes, including anemia,increased red cell turnover, transfusion requirements, thatadversely impact HGBA1c as a marker of long-term glycemiccontrol. Alternative forms of testing such as fructosamineshould be considered for these patients. MEAN BLOOD GLUCOSE (test code = MBG) 214 MG/DL 70-110 H CREATINE KINASE (CK)2023-03-18 18:33:00* Test Item Value Reference Range Interpretation Comme nts CREATINE KINASE (CK) (test c ode = CK) 274 UNITS/L 55-170 H COMPREHENSIVE METABOLIC [id number] 18:30:00* Test Item Value Reference Range Interpretation Comme nts SODIUM (test code = NA) 134 MMOL/L 137-145 L POTASSIUM (test code = K) 4.1 MMOL/L 3.5-5.1 N CHLORIDE (test code = CL) 106 MMOL/L 98-107 N CARBON DIOXIDE (test code = CO2) 23 MMOL/L 22-30 N GLUCOSE (test code = GLU) 183 MG/DL 74-106 H BLOOD UREA NITROGEN (test code = BUN) 17 MG/DL 9-20 N GLOMERULAR FILTRATION RATE (test code = GFR) > 60 The Glomerular Filtration Rate is a calculated parameterbased on serum Creatinine, patient age and sex. GFR valuesless than 60 mL/min/1.73 square meters are indicative ofChronic Kidney Disease. Values less than 15 mL/min/1.73square meters indicate Kidney failure. The calculation forGFR is based on the CKD-EPI (2020) calculation. This formulais race indifferent and is the recommended formula for GFRby the National Kidney Foundation for Adults.The GFR will not calculate if the sex is unknown or if thepatient's age is <18 years. CREATININE (test code = CREAT) 0.70 MG/DL 0.66-1.25 N TOTAL PROTEIN (test code = PROT) 6.1 G/DL 6.2-7.6 L Ortho Clinical D iagnostic has made us aware of newinformation regarding the potential interference ofEltrombopag (a bone marrow stimulant used to treatthrombocytonmenia and aplastic anemia) with specific assayson the [place] 5600 of which Total Protein is one of thoseassays performed in our lab.Interference testing performed at [facility] determined thatEltrombopag does interfere with Vitros Total Protein asfollowsEltrombopag Interference for Vitros Product Total Protein: Eltrombopag Max Observed Avg. BiasConcentration Concentration Concentration 2.5 mg/dl 6.0 g/dl +0.41 +0.34 3.5 mg/dl 6.0 g/dl +0.50 +0.45 5 mg/dl 6.0 g/dl +0.73 +0.65 2.5 mg/dl 8.0 g/dl +0.44 +0.41 3.5 mg/dl 8.0 g/dl +0.55 +0.52 5 mg/dl 8.0 g/dl +0.86 +0.77 ALBUMIN (test code = ALB) 3.6 G/DL 3.5-5.0 N CALCIUM (test code = CA) 8.0 MG/DL 8.4-10.2 L BILIRUBIN TOTAL (test code = BILT) 0.7 MG/DL 0.2-1.3 N Eltrombopag Inte rference for Vitros Product TBil, BuBc: Assay Eltrombopag Analyte/ Max Observed Avg. Bias Concentration Concentration Concentration TBil 7mg/dl TBil/ 1.2mg/dl +0.23mg.dl +0.20mg/dlBuBc 3.5mg/dl Bu/0.8mg/dl +0.25mg/dl +0.24mg/dlBuBc 7 mg/dl Bu/14.2mg/dl +0.38mg/dl +0.25mg/dlBuBc 5mg/dl Bc/0mg/dl +0.25mg/dl +0.15mg/dlBuBc 3.5mg/dl Bc/2.8mg/dl +0.25mg/dl +0.23mg/dl SGOT/AST (test code = AST) 69 UNITS/L 17-59 H SGPT/ALT (test code = ALT) 50 UNITS/L 0-49 H ALKALINE PHOSPHATASE (test code = ALKP) 59 UNITS/L 38-126 N [id number] 18:30:00* Test Item Value Reference Range Interpretation Comme nts PHOSPHOROUS (test code = PHOS) 3.8 MG/DL 2.5-4.5 N [id number] 18:30:00* Test Item Value Reference Range Interpretation Comme nts MAGNESIUM (test code = MAG) 2.3 MG/DL 1.6-2.3 N CBC W/O [id number] 18:09:00* Test Item Value Reference Range Interpretation Comme nts WHITE BLOOD CELL (test code = WBC) 14.9 K/MM3 3.8-9.8 H RED BLOOD CELL (test code = RBC) 5.96 M/MM3 3.95-5.67 H HEMOGLOBIN (test code = HGB) 17.3 G/DL 12.4-16.7 H HEMATOCRIT (test code = HCT) 49.6 % 35.9-49.5 H MEAN CELL VOLUME (test code = MCV) 83 fL 81.7-96.1 N MEAN CELL HGB (test code = MCH) 29.0 pg 27.6-33.2 N MEAN CELL HGB CONCETRATION (test code = MCHC) 34.9 % 32.9-35.5 N RED CELL DISTRIBUTION WIDTH (test code = RDW) 13.2 % 12.1-15.2 N PLATELET COUNT (test code = PLT) 238 K/MM3 129-368 N NEUTROPHIL # (test code = NT#) 11.29 K/mm3 2.0-7.6 H IMMATURE GRANULOCYTE # (test code = IG#) 0.19 x10 3/uL 0-0.03 H LYMPHOCYTE # (test code = LY#) 2.18 K/mm3 1.0-3.8 N MONOCYTE # (test code = MO#) 0.99 K/mm3 0.1-0.8 H EOSINOPHIL # (test code = EO#) 0.14 K/mm3 0.0-0.2 N BASOPHIL # (test code = BA#) 0.10 K/mm3 0.0-0.2 N NUCLEATED RBC # (test code = NRBC#) 0.00 K/mm3 0.0-0.1 N [id number] 16:25:00* Test Item Value Reference Range Interpretation Comme nts ACT-ISTAT (test code = ACTI) 275 SEC 74-137 H [id number] 15:43:00* Test Item Value Reference Range Interpretation Comme nts ACT-ISTAT (test code = ACTI) 281 SEC 74-137 H Notes Date/Time Note Provider Source 2023-03-20 15:29:00 [id number]:29:00 [facility] Progress NoteREPORT#:[id number] REPORT STATUS: SignedDATE:03/20/23 TIME: 1529 PATIENT: CHARAN RESTREPO UNIT #: [id number]#: [id number] [facility]GE[facility] 52 SEX: M ATTEND: Montez Jernigan [facility] AUTHOR: Paco James MD * ALL edits or amendments must be made on the electronic/computer document * SubjectiveChief complaint:stemiHPI:The patient is a 52-year-old female with a history of hypertension, diabetes, heart failure reduced EF, CAD status post PCI to the LAD who presented for VT and STEMI status post PCI to the LAD again Free Text Subj NotesFree Text Subj Notes:No complaints today, patient is walked around the unit without symptoms Objective GeneralVS/I O:24 hour I O ending at 0700: 03/20 0700 03/19 1900 Intake Total 338.00 Output Total 1440 Balance -1102.00 Intake, IV 84.00 Intake, Oral 254 Number 1 Bowel Movements Number Voids 2 Output, Urine 1440 Vital Signs: Date Time Temp Pulse Resp B/P B/P Pulse O2 O2 Flow FiO2 Mean Ox Delivery Rate 03/20 1018 [...] 69 15 96 PATIENT WEIGHT: Weight (lb): 200Weight (oz): 6.4Weight (kg): 90.900 Physical ExamCardiovascular: CV assessment: regular rate and rhythm, normal heart soundsRespiratory: clear to auscultation, no distressLower extremity: LE assessment: no edema Diagnosis, Assessment PlanConsultants: cardiology Free Text DxA P NotesFree Text DxA P Notes:The patient is a 52 year old male with heart failure reduced EF, diabetes, hypertension, CAD status post PCI of the LAD #STEMI: Patient was found to have thrombotic stenosis in the proximal LAD as well as distal LAD stenosis both were treated with PCI x4. Patient no longer having chest pain Continue aspirin 81 mg Plavix 300 mg x 1 then Plavix 75 mg daily Continue atorvastatin 40 mg Farxiga 10 mg daily (can change back to patient's Jardiance on discharge) #Heart failure reduced EF: Patient had a previous history of EF of 35% which hadimproved to 45%. LV gram did show EF of 25% after STEMI cont Entresto today cont metoprolol XL 25 mg daily cont Lasix 40 mg daily p.o. #V. tach: Patient had VT and was shocked in the ER. Arrhythmia likely due to acute ischemia. Continue to monitor Reassess patient in 3 months for possible AICD at 1532 RPT #:[id number] OF REPORTPRProgress jyzq7690-03-65P56:29:00Z.[id number] able for patient tgkjUKHYLAOCBVTSPB5167-60-44E55:32:26 [facility] 2023-03-20 08:44:00 [id number] nEufvOezSY7B3aTvPJxPig+ienKXM scYU/IXSxqsT1y9oq6bPBcgZZtk7515-55-33S18:44:64119 0-0054 [place] [id number] PATIENT NAME: CHARAN RESTREPO ADMIT DATE: 03/18/23ACCOUNT NO: [id number] ROOM NO: [facility] AGE: 52 REPORT TYPE: ELECTROCARDIOGRAM SEX: M ADMITTING PHYSICIAN:Montez Jernigan MD ATTENDING PHYSICIAN:Montez Jernigan MD Order:[id number] Reason : CAD/WI/VT Test Date/Time Stamp:SunMar 20 2023 08:44:19Blood Pressure : / mmHGVent. Rate : 093 BPM Atrial Rate : 093 BPM P-R Int : 156 ms QRS Dur : 092 ms QT Int : 356 ms P-R-T Axes : 058 -76 079 degrees QTc Int : 442 ms Normal sinus rhythmPossible Left atrial enlargementLeft axis deviationInferior infarct , age undeterminedAnterolateral infarct (cited on or before 18-MAR-2023)Abnormal ECGWhen compared with ECG of 19-MAR-2023 05:44,Nonspecific T wave abnormality has replaced inverted T waves in Lateral leadsConfirmed by MARIANNA SCHILLING ([id number]) on 03/20/2023 5:50:59 PM Referred By: Self Referred Confirmed by:MARIANNA SCHILLING at 1750 PATIENT NAME: CHARAN RESTREPO .[id number] AVAvailable for patient mpveUYAQVHCPKUGWOL0529-98-25X41:51:36 [facility] 2023-03-20 08:41:00 [id number] VwRaRp7ssveDRN2m4FOPK7TvSvy70 E2fiWraVdHDPaI5yV6TR9WWBWr27177-31-03V02:41:00 [facility] ([facility]Hospitalist Discharge SummaryREPORT#:[id number] REPORT STATUS: SignedDATE:03/20/23 TIME: 840 PATIENT: CHARAN RESTREPO UNIT #: [id number]#: [id number] ROOM/BED: [facility]-ADOB: [birth year] AGE: 52 SEX: M ATTEND: Montez Jernigan [facility] AUTHOR: Davi Davison MD, MPH R2 * ALL edits or amendments must be made on the electronic/computer document * Davi Davison 03/20/23 0841:General InformationProblem List/A P: 1. STEMI (ST elevation myocardial infarction) 2. Hypertension 3. Hyperlipidemia 4. Coronary artery disease 5. Heart failure 6. History of heart artery stent 7. Wheezing 8. Tobacco use Date of admission:Observation Start Date: Date of admission: 03/18/23 Discharge date: 03/20/23Admission diagnosis:STEMIDischarge diagnosis:STEMIHospital course:52 y/o M PMH HTN, HLD, CAD s/p 2 stents, HFpEF borderline presented to [facility] chest pain. On 03/18 he had chest pain/dizziness, brief syncopal episode. He was brought to [facility] and was found to be in [facility] where he was given amiodarone and synchronized cardioversion. He was transferred to this facility and was found to have V1/V2 ST elevation. LHC was performed w/ Dr. James 03/18 and4 stents were placed. Echo showed EF 35-39%. He is being d/nereida on antiplatelet rx, GDMT.Consultants: cardiologyPt. condition on discharge: improvedAllergies:Allergies:No Known Allergies (Coded, 03/18/23) ObjectiveVS/I OLast Documented: Result Date Time Pulse Ox 96 [...] Output, Urine 1440 General appearance: alert, awake, orientedHead/Eyes: atraumatic, normocephalicENT: moist mucosal membranes, normal dentitionNeck: full range of motion, supple/no meningismusCardiovascular: normal capillary refill, normal heart sounds, regular rate rhythmRespiratory: aerating well, clear to auscultation, symmetric expansion, no distressAbdomen: non-tender, soft, no distentionExtremities: moves all, normal capillary refill, normal range of motionMusculoskeletal: normal inspection, painless range of motionNeuro/PARISH NURSE: alert, oriented X 3, CNII-XII intact, normal speechSkin: dry, normal temperaturePsychiatry: normal affect, normal judgment/insight ResultsFindings/Data:Laboratory Tests: 03/20 03/20 03/20 03/19 03/19 0631 [...] MG/DL) 187 H 149 H 162 H 203 H Calcium (8.4 - 10.2 MG/DL) 8.6 Magnesium (1.6 - 2.3 MG/DL) 2.0 03/19 03/19 1535 1118 Chemistry POC Glucose (60 - 99 MG/DL) 219 H 253 H Discharge Instructions PCPPCP follow-up:PCP: Jesusita Osuna MD Follow-up labs,proc, tx:SCHEDULE SLEEP STUDYDischarge to: Home/Self CareAdditional Discharge Routines: PCP Follow-Up, Antichecking Iron Worker Follow-UpDiet: Resume Home Diet/FeedsActivity: Resume Normal Activity Quality: Discharge Current MedicationsCurrent medication review:I attest that the foregoing medication list in the medical record is true, accurate, and complete to the best of my knowledge. Montez Jernigan 03/20/23 7346:Med Rec Med RecDischarge meds:Start taking the following new medications:ATORVASTATIN (LIPITOR) 40 MG TAB 40 MILLIGRAM ORAL BEDTIME. Qty = 30 No Refills METOPROLOL SUCC XL (TOPROL XL) 25 MG TAB.SR.24H 25 MILLIGRAM ORAL DAILY. Qty = 30 No Refills Sacubitril/Valsartan (Entresto 24 MG-26 MG Tablet) 24 MG-26 MG TAB 1 TABLET ORAL [...] = 30 No Refills Attestations Teaching Physician AttestationF/U visit w/ resident:I saw the patient with the resident and . . . agree with the resident's findings and plan. Mr. Restrepo is feeling fairly well today, no chest pain or shortness of breath. He is stable for discharge at this time. We will switch him from brilinta to plavix for cost reasons as he likely will not be able to fill the brilinta perscription. He has asked for 1 week of [place], stating that he missed his pain management appointment on 03/19 however after reviewing his prescriptions on the PDMP he filled a prescription for 56 tablets (28 day prescription) on 02/26 and should not run out of medication until 03/26/23, so no further norco will be written at this time. He will follow up with PCP and cardiology as instructed. at 1016 at 7248 RPT #:[id number] OF REPORTDSDischarge nuzfmrk1589-89-49U03:41:00Z.[id number] ailable for patient yoigNMPIBQCZWCUFEQ5315-34-00D60:17:22 [facility] 2023-03-19 14:01:00 [id number] nEShDDGld0r9v9Jt8Bp/IALaZRIrn chGYw6U+4SO4AXki4Y7dzpcvtFd4523-95-85D48:01:00THI S REPORT HAS BEEN APPENDED [phone] [place] [address] PATIENT NAME: CHARAN RESTREPO ADMIT DATE: 03/18/23ACCOUNT NO: [id number] ROOM NO: Z.503 AGE: 52 REPORT TYPE: ECHOCARDIOGRAM SEX: M ADMITTING PHYSICIAN:Montez Jernigan MD ATTENDING PHYSICIAN:Montez Jernigan MD *[facility]*[address] [place], [place] [id number] Transthoracic Echocardiogram Patient: Royce Restrepotudy Date: 03/19/2023 BP: 134 / 73 Location: [facility]: [id number] : 1970 Age: 52 Height: 70 in / 177.8 cmAccession#: [id number] Gender: M Weight: 199.6 lb / 90.7 kgBMI/BSA: 28.7 kg/m 2 / 2.14 m 2 *Ordering Physician: * Marianna Schilling MD *Interpreting Physician: * Paco James MD*Design Engineer Marine Equipment: * Gabby Crockett Indications: CAD / WI. Study data: Transthoracic echocardiogram. Procedure: Transthoracicechocardiography was performed. Images were obtained using a Tipzu cardiacultrasound machine. Image quality was adequate. M-mode, complete 2D,complete spectral Doppler, and color Doppler. Location: Bedside.Patient status: Inpatient. Patient room number: ICU 13. Study status:Routine. Findings Left ventricle: The cavity size is normal. Wall thickness is mildly tomoderately increased. The estimated ejection fraction is 35-39%.Regional wall motion abnormalities: Akinesis of the apical myocardium. PATIENT NAME: CHARAN RESTREPO Right ventricle: Well visualized. The cavity size is normal. Wallthickness is normal. Systolic function is normal.Ventricular septum: Well visualized.Left atrium: Well visualized. The atrium is normal in size.Right atrium: Well visualized. The atrium is normal in size.Atrial septum: Well visualized. No defect or patent foramen ovale isidentified.Aorta: The aorta is well visualized.Aortic valve: Well visualized. The valve is trileaflet. The leafletsare normal thickness. There is no evidence of stenosis. There is nosignificant regurgitation.Mitral valve: Well visualized. The leaflets are normal thickness.There is no evidence of stenosis. There is mild regurgitation.Tricuspid valve: Well visualized. The leaflets are normal thickness.There is no evidence of stenosis. There is physiologic regurgitation.Pulmonic valve: Well visualized. The leaflets are normal thickness.There is no evidence of stenosis. There is no significantregurgitation.Pericardium: There is no pericardial effusion. No evidence of pleuralfluid accumulation.Systemic veins:Inferior vena cava: The vessel is normal in size. Measurements Left ventricle Value Ref AFSANEH, LAX [...] cm 3.00 - PATIENT NAME: CHARAN RESTREPO 4.00 AP dim, ES MM 3.8 cm [...] fraction is 35-39%. Akinesis of the apical myocardium.2. Atrial septum: No defect or patent foramen ovale is identified.3. Mitral valve: There is mild regurgitation.4. Pericardium, extracardiac: There is no pericardial effusion. Impressions: Severely reduced left ventricle systolic function iwthakinesis of the apex.Recommendations: continue hf mgmt. Prepared and electronicallysigned by Paco James MD03/19/2023 14:01 PATIENT NAME: CHARAN RESTREPO at 1401 SECTION 2 ADDENDUM 1: 03/20/23 0752 [facility] *[facility]*[address] [place], [place] [address] Transthoracic Echocardiogram (Report amended 1829-50-13E61:52:29) Patient: Anna Restrepoudy Date: 03/19/2023 BP: 134 / 73 Location: [facility]: [id number] : 1970 Age: 52 Height: 70 in / 177.8 cmAccession#: [id number] Gender: M Weight: 199.6 lb / 90.7 kgBMI/BSA: 28.7 kg/m 2 / 2.14 m 2 *Ordering Physician: Marianna Soler MD *Interpreting Physician: Marianna Soler MD*Design Engineer Marine Equipment: Gabby Salamanca Indications: CAD / WI. Study data: Transthoracic echocardiogram. Procedure: Transthoracicechocardiography was performed. Images were obtained using a Tipzu cardiacultrasound machine. Image quality was adequate. M-mode, complete 2D,complete spectral Doppler, and color Doppler. Location: Bedside.Patient status: Inpatient. Patient room number: ICU 13. Study status:Routine. Findings Left ventricle: The cavity size is normal. Wall thickness is mildly tomoderately increased. The estimated ejection fraction is 35-39%.Regional wall motion abnormalities: Akinesis of the apical myocardium.Right ventricle: Well visualized. The cavity size is normal. Wallthickness is normal. Systolic function is normal.Ventricular septum: Well visualized.Left atrium: Well visualized. The atrium is normal in size.Right atrium: Well visualized. The atrium is normal in size.Atrial septum: Well visualized. No defect or patent foramen ovale isidentified.Aorta: The aorta is well visualized.Aortic valve: Well visualized. The valve is trileaflet. The leaflets PATIENT NAME: CHARAN RESTREPO are normal thickness. There is no evidence of stenosis. There is nosignificant regurgitation.Mitral valve: Well visualized. The leaflets are normal thickness.There is no evidence of stenosis. There is mild regurgitation.Tricuspid valve: Well visualized. The leaflets are normal thickness.There is no evidence of stenosis. There is physiologic regurgitation.Pulmonic valve: Well visualized. The leaflets are normal thickness.There is no evidence of stenosis. There is no significantregurgitation.Pericardium: There is no pericardial effusion. No evidence of pleuralfluid accumulation.Systemic veins:Inferior vena cava: The vessel is normal in size. Measurements Left ventricle Value Ref AFSANEH, LAX [...] S 0.73 m/sec PATIENT NAME: CHARAN RESTREPO VTI, S 20.3 cm Mean grad, S [...] fraction is 35-39%. Akinesis of the apical myocardium.2. Atrial septum: No defect or patent foramen ovale is identified.3. Mitral valve: There is mild regurgitation.4. Pericardium, extracardiac: There is no pericardial effusion. Impressions: Severely reduced left ventricle systolic function iwthakinesis of the apex.Recommendations: continue hf mgmt. Amended Marianna Schilling MD03/20/2023 07:52 PATIENT NAME: CHARAN RESTREPO :01:0 0Z.[id number] for patient qttlBIGOWWIEWPKOWO6840-85-51T90:02:20 [facility] 2023-03-19 12:44:00 [id number] kH009j2BnOLAgIMcFphG/1I+jl9DR CyIO6Uju7xLjfOLiqVL/vSBvZl92302-15-11G36:44:00 [facility] ([facility])Cardiology Progress NoteREPORT#:[id number] REPORT STATUS: SignedDATE:03/19/23 TIME: 1244 PATIENT: CHARAN RESTREPO UNIT #: [id number]#: [id number] [facility] AGE: 52 SEX: M ATTEND: Montez Jernigan [facility] AUTHOR: Paco James MD * ALL edits or amendments must be made on the electronic/computer document * See AddendumSubjectiveChief complaint:stemiHPI:The patient is a 52-year-old female with a history of hypertension, diabetes, heart failure reduced EF, CAD status post PCI to the LAD who presented for VT and STEMI status post PCI to the LAD again Free Text Subj NotesFree Text Subj Notes:No complaints today. Objective GeneralVS/I O:24 hour I O ending at 0700: 03/19 0700 03/18 1900 Intake Total 3.00 Output Total 500 Balance -497.00 Intake, IV 3.00 Number Voids 1 Output, Urine 500 Patient 90.9 kg Weight Weight Stated/Reported Measurement Method Vital Signs: Date Time Temp Pulse Resp B/P B/P Pulse O2 O2 Flow FiO2 Mean Ox Delivery Rate 03/19 1029 68 18 98 03/19 1015 73 18 97 03/19 1003 71 13 126/72 93 96 03/19 1000 69 12 98 03/19 0945 62 10 96 03/19 0930 64 14 96 03/19 0903 71 17 125/66 88 98 03/19 0900 71 15 98 03/19 0845 80 14 98 03/19 0830 78 21 03/19 0828 129/74 95 03/19 0803 80 17 133/75 100 96 03/19 0800 36.7 03/19 0745 80 18 93 03/19 0733 87 19 131/71 94 93 03/19 0730 87 18 94 03/19 0715 83 29 95 03/19 0703 76 19 134/73 98 93 03/19 0700 95 33 93 03/19 0648 93 Room air 21 03/19 0645 66 15 92 03/19 0633 66 14 132/68 93 93 03/19 0630 66 14 92 03/19 0615 69 14 90 03/19 0603 79 124/72 93 93 / 0600 79 36 95 05/ 0545 74 16 91 05/ 0533 71 14 126/68 91 90 / 0530 73 15 90 / 0515 76 16 89 / 0503 81 17 118/66 86 90 03/19 0500 76 18 91 / 0445 82 25 90 03/19 0437 94 39 127/71 92 95 03/19 0433 79 22 133/71 96 95 03/19 0430 64 13 93 05/29 0415 65 [...] 15 138/84 106 93 05/29 0000 36.6 05/29 0000 74 17 94 05/28 2345 [...] 99 94 05/28 2200 72 15 93 05/28 2145 69 15 92 05/28 2133 70 14 136/78 102 91 05/28 2130 68 10 92 05/28 2115 71 14 90 05/28 2100 80 18 123/64 88 90 05/28 2050 79 17 137/81 104 91 05/28 2045 87 30 95 05/28 2040 76 15 139/83 105 91 05/28 2029 79 12 152/84 110 94 05/28 2014 79 22 96 05/28 1999 36.4 05/28 1999 81 21 147/85 110 97 05/28 1945 85 35 98 05/28 1930 73 15 130/81 101 94 03/18 1915 81 17 97 03/18 1900 82 18 128/78 97 96 03/18 1830 68 16 122/76 94 94 03/18 1816 99 Room air 21 03/18 1800 73 26 121/72 91 96 03/18 1745 73 24 125/74 95 96 03/18 1735 129/72 95 96 03/18 1734 125/82 98 97 03/18 1730 36.2 PATIENT WEIGHT: Weight (lb): 200Weight (oz): 6.4Weight (kg): 90.900 Physical ExamGeneral appearance: alert, awake, orientedCardiovascular: CV assessment: regular rate and rhythm, normal heart soundsRespiratory: clear to auscultation, no distressLower extremity: LE assessment: no edema Diagnosis, Assessment PlanConsultants: cardiology Free Text DxA P NotesFree Text DxA P Notes:The patient is a 52 year old male with heart failure reduced EF, diabetes, hypertension, CAD status post PCI of the LAD #STEMI: Patient was found to have thrombotic stenosis in the proximal LAD as well as distal LAD stenosis both were treated with PCI x4. Patient no longer having chest pain DC nitro drip Continue aspirin 81 mg and ticagrelor 90 mg twice daily Continue atorvastatin 40 mg Start Farxiga 10 mg daily (can change back to patient's Jardiance on discharge) #Heart failure reduced EF: Patient had a previous history of EF of 35% which hadimproved to 45%. LV gram did show EF of 25% after STEMI Start Entresto today Start metoprolol XL 25 mg daily Start Lasix 40 mg daily p.o. #V. tach: Patient had VT and was shocked in the ER. Arrhythmia likely due to acute ischemia. Continue to monitor Reassess patient in 3 months for possible AICD at 1248 Addendum 1: 03/19/23 1248 by Paco James MD Critical Care Time: The patient is critically ill with one or more vital organ system dysfunction resulting in a high probability of imminent or life threatening deterioration in the patient's condition. I spent 35 minutes of unittime on the following activities: reviewing the EMR, reviewing hemodynamic data,reviewing telemetry data, discussing the patient's care with the multi-disciplinary team, and documenting the relevant findings, assessment, and recommendations in the patient's electronic health record. Time is separate fromany billable procedures. at 1248 RPT #:[id number] OF REPORTPRProgress jnzx4371-01-60V32:44:00Z.[id number] able for patient xxuoYRGFDGPLMSCGGE2982-85-92I95:48:38 [facility] 09:27:00 [id number] 9FuN3/c/FWzez6P12zZJTp7zb6MCv SxhRi7FQ/xDSBqKD1xqrE9jOjgK4202-84-03B86:27:00 [facility] ([facility])Critical Care Progress NoteREPORT#:[id number] REPORT STATUS: SignedDATE:03/19/23 TIME: 926 PATIENT: CHARAN RESTREPO UNIT #: [id number]#: [id number] [facility] AGE: 52 SEX: M ATTEND: Montez Jernigan [facility] AUTHOR: Suzette Wang SURGERY SCHEDULING COORDINATOR * ALL edits or amendments must be made on the electronic/computer document * Davonte Wang 03/19/23 09:SubjectiveChief complaint:Chest PainComments:No acute events overnight. Hemodynamically stable. Denies CP. Still on low dose Nitroglycerin, Nursing instructed to wean off. Review of SystemsRespiratory:Denies: DWYER (dyspnea on exertion), SOB. Cardiovascular:Denies: chest pain. GI:Denies: abdominal pain. Objective GeneralVS/I OLast Documented: Result Date Time Pulse Ox 93 [...] Stated/Reported Measurement Method PATIENT WEIGHT: Weight (lb): 200Weight (oz): 6.4Weight (kg): 90.900 Medications:Active Meds + DC'd Last 24 HrsInsulin Human Lispro (HumaLOG) MEDIUM DOSE SLIDING SCALE AC HS SUBQ (DC) Aspirin (CHILDREN'S ASPIRIN) 81 MG DAILY PO Enoxaparin Sodium (LOVENOX) 40 MG Q24H SUBQ (CAN) Insulin Glargine (Lantus/Semglee) 15 UNITS BID SUBQ Ticagrelor (BRILINTA) 90 MG BID PO Insulin Human Lispro (HumaLOG) MEDIUM DOSE SLIDING SCALE Q4H SUBQ Morphine Sulfate (morphine SULFATE (C-II)) 4 MG Q6H PRN PRN IV (DC) Atorvastatin Calcium (LIPITOR) 40 MG BEDTIME PO Insulin Human Lispro (HumaLOG) LOW DOSE SLIDING SCALE AC HS SUBQ (DC) Mupirocin (BACTROBAN NASAL - ADULT ICU) 1 APPLIC BID NASAL Nitroglycerin/Dextrose (NITROGLYCERIN IN D5W) 250 ML ASDIR IV Morphine Sulfate (morphine SULFATE (C-II)) 4 MG NOW ONE IV (DC) Hydrocodone Bitart/Acetaminophen (NORCO 10/325 TABLET (C-II)) 1 TAB BID PRN PRN PO Morphine Sulfate (morphine SULFATE (C-II)) 2 MG Q6H PRN PRN IV (DC) Nicotine (NICODERM) 21 MG DAILY TRANSDERM (CKD) Dextrose/Water (DEXTROSE 50% IN WATER) 12.5 GM ASDIR PRN IV Dextrose/Water (DEXTROSE 50% IN WATER) 25 GM ASDIR PRN IV Glucagon (GLUCAGON) 1 MG ASDIR PRN IM Acetaminophen (TYLENOL) 650 MG Q4H PRN PRN PO Morphine Sulfate (morphine SULFATE (C-II)) 2 MG Q4H PRN PRN IV (DC) Ondansetron HCl (ZOFRAN) 4 MG Q8H PRN PRN IV Iopamidol (ISOVUE-300) 0 .STK-MED ONE .ROUTE (DC) Morphine Sulfate (morphine SULFATE (C-II)) 0 .STK-MED ONE .ROUTE (DC) Sodium Chloride (SODIUM CHLORIDE 0.9%) 50 ML .STK-MED ONE IV (DC) Sodium Chloride (SODIUM CHLORIDE 0.9%) 100 ML .STK-MED ONE IV (DC) Diltiazem HCl (CARDIZEM) 0 .STK-MED ONE .ROUTE (DC) Nicardipine HCl (CARDENE I.V.) 0 .STK-MED ONE .ROUTE (DC) Tirofiban HCl (AGGRASTAT) 0 .STK-MED ONE .ROUTE (DC) Heparin Sodium/Sodium Chloride (HEPARIN 1000 UNITS/NS 500ML) 500 ML .STK-MEDONE IV (DC) Ticagrelor (BRILINTA) 0 .STK-MED ONE .ROUTE (DC) Fentanyl Citrate (SUBLIMAZE (C-II)) 0 .STK-MED ONE .ROUTE (DC) Midazolam HCl (VERSED (C-IV)) 0 .STK-MED ONE .ROUTE (DC) Heparin Sodium (HEPARIN SODIUM) 0 .STK-MED ONE .ROUTE (DC) Heparin Sodium/Sodium Chloride (HEPARIN 1000 UNITS/NS 500ML) 1,000 ML .STK-MED ONE IV (DC) Iopamidol (ISOVUE-300) 0 .STK-MED ONE .ROUTE (DC) Lidocaine (XYLOCAINE 1%) 0 .STK-MED ONE .ROUTE (DC) Nitroglycerin/Dextrose (NITROGLYCERIN IN D5W) 250 ML .STK-MED ONE IV (DC) Physical ExamGeneral appearance: alert, awake, oriented, no respiratory distressHead/eyes: atraumatic, normocephalic, PERRLNeck: no JVDCardiovascular: normal heart sounds, regular rate and rhythm, normal S1/S2, no ectopyRespiratory: aerating well, symmetric expansion, no distressAbdomen: obese, soft, no distention, no guardingExtremities: moves all, no clubbing, no cyanosis, no edema, R groin soft, no hematoma Musculoskeletal normal inspection, no muscle spasmNeuro/PARISH NURSE: alert, oriented X 3, no sensory deficitsPsychiatry: normal affect ResultsFindings/data:Laboratory Tests 03/19 03/19 03/18 03/18 03/18 0326 5335 5156 [id number] 2022 Chemistry Sodium (137 - 145 MMOL/L) [...] I (0.012 - 0.033 NG/ML) 3.570 *H 3.700 *H 03/18 03/18 03/18 03/18 03/18 1741 1741 1741 1741 1741Chemistry Sodium (137 - 145 MMOL/L) 134 L [...] (Auto) (14 - 44 %) 8.0 L [place] % (Auto) (4 - 13 %) 5.3 Eos % (Auto) (0 - 6 %) 0.8 Baso % (Auto) (0 - 2 %) 0.5 Neut # (Auto) (2.0 - 7.6 K/mm3) 13.48 H 11.29 H Lymph # (Auto) (1.0 - 3.8 K/mm3) 1.28 2.18 [place] # (Auto) (0.1 - 0.8 K/mm3) 0.84 [...] pH (5.0 - 9.0) 5.0 Ur Specific [place] (1.003 - 1.030) 1.020 Urine Protein (NEGATIVE MG/DL) NEGATIVE Urine Glucose (UA) (NORMAL MG/DL) 1000 H Urine Ketones (NEGATIVE MG/DL) 5 Urine Blood (NEGATIVE Oneal/mm3) NEGATIVE Urine Nitrite (NEGATIVE) NEGATIVE Urine Bilirubin (NEGATIVE MG/DL) NEGATIVE Urine Urobilinogen (NORMAL MG/DL) NORMAL Ur Leukocyte Esterase (NEGATIVE /mm3) NEGATIVE Laboratory Tests 03/19/23 0326:[Embedded Image Not Available] 03/19/23 0325:[Embedded Image Not Available] 03/18/23 1741:[Embedded Image Not Available]Microbiology:03/18 181 NASAL: MRSA Screen - COMP Radiology dataRecent Impressions:RADIOLOGY - XR CHEST 1V 03/18 1809 Report Impression - Status: SIGNED Entered: 03/18/20231908 IMPRESSION: Unremarkable portable examination of the chest.Impression By: [email or web address] - Hima Jaime M.D. Results: labs reviewed, vital signs reviewed, current med profile rev'd Treatment Prophylaxis Treatment ProphylaxisOxygen: room airLines: peripheral Diagnosis, Assessment PlanFree text A P:52 year old male patient hx CAD s/p multiple stents, systolic heart failure transferred from [facility] with STEMI. STEMI: Coronary Artery Disease Presented with chest pain in ventricular tachycardia s/p cardioversion at outside facility. Repeat EKG showed STEMIArrived via life flight, Dr James placed 4 stents to LADAspirin, Statin, Brilinta. Start low dose Metoprolol and HCTZ Nitroglycerin drip titrate for chest pain.Uses Entresto and Ziac as outpatient- defer to cardiology Patient states he has been referred for defibrillator placement. Does not know Ejection FractionPending EchoMonitor for arrythmias DiabetesUncontrolled. Takes metformin and jardiance. 9.3 U5TBfsmwii 200s, start lantus. Patietn educated on diabetes and need for insulin atthis pointWill consult site reliability engineer for DM education Tobacco AbuseSmokes 2 PPDCounseled against smoking Nicotine patch PPX LovenoxCardiac Diet f/u 35 mins Orders: Procedure Date/time Status MAGNESIUM 05/30 0400 Active BASIC METABOLIC PANEL 03/20 400 Active LIVER FUNCTION PANEL 03/19 927 Active Consultants: cardiology Quality: Gen Med Crit Care VTE ProphylaxisVTE prophylaxis initiated: yes Current MedicationsCurrent medication review:I attest that the foregoing medication list in the medical record is true, accurate, and complete to the best of my knowledge. Pamela Lindquist 03/19/23 1306:AttestationsAttestation needed: supervising physician Physician AttestationAgree w/findings plan:Services and addendum: Agree with the findings and plan as documented by Suzette Wang NP Patient was seen and examined. I reviewed the medical records and the available data I agree with the documented examination findings, assessment and plan of care.Multidisciplinary Critical Care Unit rounds were performed with involvement of the Critical Care Nurse Practitioner, critical care unit nurse caring for the patient, respiratory therapist, and critical care pharmacist. Discussed with cardiology. Okay to transfer out of ICU. MICU team will sign off. Please reconsult if needed at 1004 at 1306 RPT #:[id number] OF REPORTPRProgress psfm2719-61-93N31:27:00Z.[id number] able for patient ghmjLHPOTGPFCWXNEG3621-14-00O66:04:53 [facility] 2023-03-19 07:39:00 [id number] furpk9iBOWKFmETYYU256JDoOWLJV SQIjitbCbEkNvzssu/KEfgbX9K78531-24-98K16:39:00 [facility] ([facility])Hospitalist Progress NoteREPORT#:[id number] REPORT STATUS: SignedDATE:03/19/23 TIME: 07 PATIENT: CHARAN RESTREPO UNIT #: [id number]#: [id number] [facility] AGE: 52 SEX: M ATTEND: Montez Jernigan AUTHOR: Davi Davison MD, MPH R2 * ALL edits or amendments must be made on the electronic/computer document * Davi Davison 03/19/23 0739:SubjectiveChief complaint:CHEST PAINHPI:52 y/o M PMH DM2, HLD, CAD s/p 2 stents, HFpEF borderline, tobacco use, arthritis presented to [facility] for chest pain.NAEO. No arrhythmias overnight. Today pt reports feeling well. He had some persistent chest discomfort which has since resolved w/ morphine. Otherwise no significant complaints. Review of SystemsConstitutional:Denies: chills, fatigue, fever, generalized weakness. Skin:Denies: abrasion, rash, swelling. Allergy/Immun:Denies: allergic reaction, anaphylaxis. Eyes:Denies: visual loss/blurred. Respiratory:Denies: DWYER (dyspnea on exertion), non productive cough, pleurisy, pleuritic pain, pneumonia, productive cough (sputum), SOB, wheezing. Cardiovascular:Reports: chest pain. Denies: DWYER (dyspnea on exertion), edema, orthopnea. GI:Denies: abdominal pain, constipation, diarrhea, nausea, vomiting. :Denies: dysuria, flank pain. Musculoskeletal:Denies: arthritis, extremity pain, extremity swelling. Neuro:Denies: bladder dysfunction, bowel dysfunction, change in LOC, confusion, dizziness, focal weakness, gait problem, headache, lightheaded, numbness. Psych:Denies: agitation, anxiety. All systems rev neg: except as noted Objective GeneralVS/I O:Vital Signs: Date Time Temp Pulse Resp B/P B/P Pulse O2 O2 Flow FiO2 Mean Ox Delivery Rate 03/19 0703 76 19 134/73 98 93 03/19 0700 95 33 93 03/19 0648 93 Room air 21 03/19 0645 66 15 92 03/19 0633 66 14 132/68 93 93 03/19 0630 66 14 92 03/19 0615 69 14 90 03/19 0603 79 124/72 93 93 03/19 0600 79 36 95 03/19 0545 74 16 91 03/19 0533 71 14 126/68 91 90 03/19 0530 73 15 90 03/19 0515 76 16 89 03/19 0503 81 17 118/66 86 90 05/29 [...] 99 94 05/28 2200 72 15 93 05/28 2145 69 15 92 05/28 2133 70 14 136/78 102 91 05/28 2130 68 10 92 05/28 2115 71 14 90 05/28 2100 80 18 123/64 88 90 05/28 2050 79 17 137/81 104 91 05/28 2045 87 30 95 05/28 2040 76 15 139/83 105 91 05/28 2030 79 12 152/84 110 94 03/18 [...] Stated/Reported Measurement Method PATIENT WEIGHT: Weight (lb): 200Weight (oz): 6.4Weight (kg): 90.900 Physical ExamGeneral appearance: alert, awake, orientedHead/Eyes: atraumatic, normocephalicENT: moist mucosal membranes, normal dentitionNeck: full range of motion, supple/no meningismusCardiovascular: normal capillary refill, normal heart sounds, regular rate rhythmRespiratory: aerating well, clear to auscultation, symmetric expansion, no distressAbdomen: non-tender, soft, no distentionExtremities: moves all, normal capillary refill, normal range of motionMusculoskeletal: normal inspection, painless range of motionNeuro/PARISH NURSE: alert, oriented X 3, CNII-XII intact, normal speechSkin: dry, normal temperaturePsychiatry: normal affect, normal judgment/insight Diagnosis, Assessment PlanProblem List/A P: 1. STEMI (ST elevation myocardial infarction) 2. Hypertension 3. Hyperlipidemia 4. Coronary artery disease 5. Heart failure 6. History of heart artery stent 7. Wheezing 8. Tobacco use Consultants: cardiology Free Text DxA P NotesFree text DxA P notes:52 y/o M PMH HTN, HLD, CAD s/p 2 stents, HFpEF borderline presented to [facility] chest pain. STEMI (ST elevation myocardial infarction) : Hypertension : HLD : CAD : HF : Hx stent03/18 AM - chest pain/dizziness, found to be in vtach at [facility] Placed on amiodarone drip, given sync cardioversion which resolved issue. Transferred here per Dr. Schilling, found to have V1/V2 ST elevation, taken [facility] w/ Dr. James - 4x stent placed. EF 20%.03/19 - titrating off nitro drip, restarting PO rx per cardiologyPlan:Cardio management per Dr. Mock: Nitro drip - titrate off today Restart B luís? - per cardiology ASA 81, ticagrelor 90 BID Atorvastatin 40 Morphine 4 IV q6 PRN - per Dr. Alvarez Home rx (deferred): Entresto 24-26 BID Bisoprolol/HCTZ 02/24.25 GT8Alwyapq A1c, is on jardiance unknown dose at homeSupposedly took metformin which "didn't work" in the llqsZ1p 9.3MDSS from LDSS today Tobacco hx : Kbsigkah18+ pack-year smoking hxMild expiratory wheezing, possible COPD componentNicotine patch, consider duonebs/maintenance inhalers worsening SOB/cough ArthritisChronic arthritis of both knees/hips, was told that he should have replacements at some pointRx: Home norco 10 BID PRN Code: FULLDiet: CardiacDVT: SCD Quality: Gen Med Crit Care VTE ProphylaxisVTE prophylaxis initiated: yes Current MedicationsCurrent medication review:I attest that the foregoing medication list in the medical record is true, accurate, and complete to the best of my knowledge. Montez Jernigan 03/19/23 1244:Attestations Teaching Physician AttestationF/U visit w/o resident:I personally saw the patient and reviewed the resident's note. I . . . agree with the resident's findings and plan. Mr. Restrepo is complaining of some transient (<10 seconds) episodes of shortnessof breath today. He is s/p V-tach with cardioversion and STEMI with 4 stents placed to the LAD yesterday. Otherwise he says his chest pain is better, but notresolved, and different than it was yesterday. He was restarted on beta luís therapy in addition to entresto, brilinta, and aspirin. He is on nitroglycerine drip still which is being weaned. Data Processing Equipment Repairer and cardiology are on board and weappreciate their recommendations and care. at 0743 at 1246 RPT #:[id number] OF REPORTPRProgress fbfo3946-99-38V41:39:00Z.[id number] able for patient onydINAQQDASWRHNOW6089-09-79M33:44:10 [facility] 2023-03-19 05:44:00 [id number] oWU00m2nIAM1NoEmXDQEK8uXZcLDx yWadkG2hHFgAKcaUW6qyZfgsmQ25767-81-41X62:44:00396 9-0005 [place] [address] PATIENT NAME: CHARAN RESTREPO ADMIT DATE: 03/18/23ACCOUNT NO: [id number] ROOM NO: [facility] AGE: 52 REPORT TYPE: ELECTROCARDIOGRAM SEX: M ADMITTING PHYSICIAN:Montez Jernigan MD ATTENDING PHYSICIAN:Montez Jernigan MD Order:[id number] Reason : CAD/WI Test Date/Time Stamp:SunMar 19 2023 05:44:06Blood Pressure : / mmHGVent. Rate : 074 BPM Atrial Rate : 074 BPM P-R Int : 146 ms QRS Dur : 106 ms QT Int : 412 ms P-R-T Axes : 000 -25 149 degrees QTc Int : 457 ms Normal sinus rhythmLow voltage QRSAnterolateral infarct (cited on or before 18-MAR-2023)Abnormal ECGWhen compared with ECG of 18-MAR-2023 17:40,QRS axis shifted leftT wave inversion more evident in Lateral leadsConfirmed by MARIANNA SCHILLING ([id number]) on 03/19/2023 10:39:25 AM Referred By: Self Referred Confirmed by:MARIANNA SCHILLING at 1039 PATIENT NAME: CHARAN RESTREPO .[id number] AVAvailable for patient qwqiURNTWCSLFHFQPO6650-47-18S86:39:45 [facility] 2023-03-19 05:44:00 [id number] u5VeIjfdkJKXawkJxnoQBRw+dWLXb CX13iOIQjz4ISDhd3lzX6KmdneP8712-64-13A92:44:78706 0-0053 [place] [address] PATIENT NAME: CHARAN RESTREPO ADMIT DATE: 03/18/23ACCOUNT NO: [id number] ROOM NO: Z.503 AGE: 52 REPORT TYPE: ELECTROCARDIOGRAM SEX: M ADMITTING PHYSICIAN:Montez Jernigan MD ATTENDING PHYSICIAN:Montez Jernigan MD Order:[id number] Reason : CAD/WI Test Date/Time Stamp:SunMar 19 2023 05:44:06Blood Pressure : / mmHGVent. Rate : 074 BPM Atrial Rate : 074 BPM P-R Int : 146 ms QRS Dur : 106 ms QT Int : 412 ms P-R-T Axes : 000 -25 149 degrees QTc Int : 457 ms Normal sinus rhythmLow voltage QRSAnterolateral infarct (cited on or before 18-MAR-2023)Abnormal ECGWhen compared with ECG of 18-MAR-2023 17:40,QRS axis shifted leftT wave inversion more evident in Lateral leadsConfirmed by MARIANNA SCHILLING ([id number]) on 03/20/2023 5:50:22 PM Referred By: Self Referred Confirmed by:MARIANNA SCHILLING at 1750 PATIENT NAME: CHARAN RESTREPO .[id number] AVAvailable for patient pgprEWGOJSDAGBGLMM2874-15-96R76:50:56 [facility] 2023-03-18 17:45:00 [id number]+XBV/y Rw1oUnd5G2+1KvX6QyYAbpLVvm9xK 4Zqgq9mz0eTMDw28XW8BxcjqAss6504-90-64O82:45:00 [facility] ([facility])Critical Care Consult NoteREPORT#:[id number] REPORT STATUS: SignedDATE:03/18/23 TIME: 1744 PATIENT: CHARAN RESTREPO UNIT #: [id number]#: [id number] [facility] AGE: 52 SEX: M ATTEND: Jesusita Osuna AUTHOR: Suzette Wang SURGERY SCHEDULING COORDINATOR * ALL edits or amendments must be made on the electronic/computer document * Davonte Wang 03/18/231744:History of Present Illness HPIRequesting clinician: Direct AdmitReason for consult:STEMIChief complaint:Chest Pain PCP:PCP: Jesusita Osuna MD HPI:Mr Restrepo is a 52 year old male patient who is transferred from outside emergency department with STEMI. Patient presented to their facility with chest pressure. He was found to be in ventricular tachycardia and subsequently cardioverted. Repeat EKG showed STEMI. Transferred emergently to our wharf laborer via life flight. Dr James was able to place 4 stents to LAD. 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 He is hemodynamically stable on low dose nitroglycerin drip. Chest pain free. Denies SOB. Groin site, soft no hematoma. Patient states he has been encouraged to have debrillator placed by his engraving supervisor. Unable to recall names of home medications. History - Adult longitudinalPast medical history:Reports: Coronary artery disease, Diabetes mellitus, Hypertension. Past surgical history:Reports: (Left Tib, Fib). Alcohol use: socialDrug use: Denies recreational drugsSmoking status for patients 13 years old or older: Current every day smokerPacks per day: 2Medications:Current Hospital Medications:Blood Formation,Coagulation Sig/Marie Start time Last Medication Dose [...] Heparin Sodium/ 1,000 ML .STK-MED ONE 03/18 1522 DC Sodium Chloride IV (HEPARIN 1000 UNITS/ NS 500ML) Cardiovascular Drugs Sig/Marie Start time Last Medication Dose Route Stop Time Status Admin Atorvastatin Calcium 40 MG BEDTIME 03/18 2100 UNV (LIPITOR) PO 04/17 210 Diltiazem HCl 0 .STK-MED ONE 03/18 1632 DC (CARDIZEM) .ROUTE Nicardipine HCl 0 .STK-MED ONE 03/18 1632 DC (CARDENE I.V.) .ROUTE Nitroglycerin/ 250 ML .STK-MED ONE 03/18 1522 DC Dextrose IV (NITROGLYCERIN IN D5W) Central Nervous System Agents Sig/Marie Start time Last Medication Dose Route Stop Time Status Admin Aspirin 81 MG DAILY 03/19 0900 UNV (CHILDREN'S ASPIRIN) PO 04/18 0901 Acetaminophen 650 MG Q4H PRN PRN 03/18 1705 PEND (TYLENOL) PO 04/17 1706 Morphine Sulfate 2 MG Q4H PRN PRN 03/18 1705 UNV (morphine SULFATE (C- IV 03/20 1706 II)) [...] Admin Dextrose/Water 12.5 GM ASDIR PRN 03/18 1745 UNV (DEXTROSE 50% IN IV 04/17 174 WATER) Dextrose/Water 25 GM ASDIR PRN 03/18 1745 UNV (DEXTROSE 50% IN IV 04/17 174 WATER) Sodium Chloride 50 ML .STK-MED ONE [...] - NASAL 03/23 0901 ADULT ICU) Dose Instructions:(1)Insulin Human Lispro (HumaLOG): LOW DOSE SLIDING SCALE Allergies:Coded Allergies:No Known Allergies (03/18/23) 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 Cardiovascular:Denies: chest pain, DWYER (dyspnea on exertion). GI:Denies: abdominal pain, nausea, vomiting. Heme:Denies: bleeding. Objective Physical ExamVS/I O:Patient Weight and BMI Weight (kg): BMI: Medications:Active Meds + DC'd Last 24 HrsAspirin (CHILDREN'S ASPIRIN) 81 MG DAILY PO (UNV) Atorvastatin Calcium (LIPITOR) 40 MG BEDTIME PO (UNV) Insulin Human Lispro (HumaLOG) LOW DOSE SLIDING SCALE AC HS SUBQ (UNV) Mupirocin (BACTROBAN NASAL - ADULT ICU) 1 APPLIC BID NASAL (UNV) Dextrose/Water (DEXTROSE 50% IN WATER) 12.5 GM ASDIR PRN IV (UNV) Dextrose/Water (DEXTROSE 50% IN WATER) 25 GM ASDIR PRN IV (UNV) Glucagon (GLUCAGON) 1 MG ASDIR PRN IM (UNV) Acetaminophen (TYLENOL) 650 MG Q4H PRN PRN PO (PEND) Morphine Sulfate (morphine SULFATE (C-II)) 2 MG Q4H PRN PRN IV (UNV) Ondansetron HCl (ZOFRAN) 4 MG Q8H PRN PRN IV (UNV) Iopamidol (ISOVUE-300) 0 .STK-MED ONE .ROUTE (DC) Morphine Sulfate (morphine SULFATE (C-II)) 0 .STK-MED ONE .ROUTE (DC) Sodium Chloride (SODIUM CHLORIDE 0.9%) 50 ML .STK-MED ONE IV (DC) Sodium Chloride (SODIUM CHLORIDE 0.9%) 100 ML .STK-MED ONE IV (DC) Diltiazem HCl (CARDIZEM) 0 .STK-MED ONE .ROUTE (DC) Nicardipine HCl (CARDENE I.V.) 0 .STK-MED ONE .ROUTE (DC) Tirofiban HCl (AGGRASTAT) 0 .STK-MED ONE .ROUTE (DC) Heparin Sodium/Sodium Chloride (HEPARIN 1000 UNITS/NS 500ML) 500 ML .STK-MEDONE IV (DC) Ticagrelor (BRILINTA) 0 .STK-MED ONE .ROUTE (DC) Fentanyl Citrate (SUBLIMAZE (C-II)) 0 .STK-MED ONE .ROUTE (DC) Midazolam HCl (VERSED (C-IV)) 0 .STK-MED ONE .ROUTE (DC) Heparin Sodium (HEPARIN SODIUM) 0 .STK-MED ONE .ROUTE (DC) Heparin Sodium/Sodium Chloride (HEPARIN 1000 UNITS/NS 500ML) 1,000 ML .STK-MED ONE IV (DC) Iopamidol (ISOVUE-300) 0 .STK-MED ONE .ROUTE (DC) Lidocaine (XYLOCAINE 1%) 0 .STK-MED ONE .ROUTE (DC) Nitroglycerin/Dextrose (NITROGLYCERIN IN D5W) 250 ML .STK-MED ONE IV (DC) General appearance: alert, awake, oriented, no respiratory distressHead/Eyes: atraumatic, normocephalic, PERRLNeck: no JVDCardiovascular: normal heart sounds, regular rate and rhythm, normal S1/S2, no ectopyRespiratory: aerating well, symmetric expansion, no distressAbdomen: obese, soft, no distention, no guardingExtremities: moves all, no clubbing, no cyanosis, no edema, R groin soft, no hematoma Musculoskeletal: normal inspection, no muscle spasmNeuro/PARISH NURSE: alert, oriented X 3, no sensory deficitsPsychiatry: normal affect ResultsFindings/Data:Laboratory Tests 03/18 03/18 1618 1534 Coagulation Activated Coag Time (74 - 137 SEC) 275 H 281 H Microbiology:03/18 1705 NASAL: MRSA Screen - ORD Results: labs reviewed, vital signs reviewed, vital signs stable, current med profile rev'd Treatment Prophylaxis Treatment ProphylaxisOxygen: nasal cannulaLines: peripheral Diagnosis, Assessment PlanFree text DxA P:52 year old male patient hx CAD s/p multiple stents, systolic heart failure transferred from [facility] with STEMI. STEMI: Coronary Artery Disease Presented with chest pain in ventricular tachycardia s/p cardioversion. Repeat EKG showed STEMIArrived via life flight straight to wharf laborer. Dr James placed 4 stents to LADAspirin, Statin, Brilinta. Commissioning Manager would like to start beta luís tomorrowNitroglycerin drip titrate for chest pain. Morphine PRNUses Entresto and Ziac as outpatient Patient states he has been referred for defibrillator placement. Does not know Ejection FractionCheck Echo, BNP, CK Monitor for arrythmias AKIUnknown baseline renal function. Creatinine 1.37 at outside facility. Will follow labs hereMay acutely worsen post cath. Not a candidate for IV hydration as patient likelyhas depressed EFConsider nephrology consult as needed DiabetesDoes not take any meds, reports diet managmentCheck A1C Tobacco AbuseSmokes 2 PPDCounseled against smoking PPX LovenoxCardiac Diet Critical Care time 40 mins includes time spent managing nitro drip, time spent at bedside, review of previous record, non procedural Pamela Lindquist 03/18/23 1833:AttestationsAttestation needed: supervising physician Physician AttestationAgree w/findings plan:Services and addendum: Agree with the findings and plan as documented by Suzette Wang NP Patient was seen and examined. I reviewed the medical records and the available data I agree with the documented examination findings, assessment and plan of care. Discussed with cardiology and with the patient. at 1808 at 1834 RPT #:[id number] OF REPORTMNZvcsfedhcvov9713-89-88Y05:45:00Z.PDOC2 [id number] for patient gxptBAWYJBOZCPSPUK2466-92-39A50:08:44 [facility] 2023-03-18 17:40:00 [id number] 0AJAfDVHXQSMy2ZulepJ2xgou8On0 qx0bLvoWIjDxj4D8CBzMw4qcwbh2792-47-06R47:40:23210 8-0019 [place] [address] PATIENT NAME: CHARAN RESTREPO ADMIT DATE: 03/18/23ACCOUNT NO: [id number] ROOM NO: [facility] AGE: 52 REPORT TYPE: ELECTROCARDIOGRAM SEX: M ADMITTING PHYSICIAN:Jesusita Osuna MD ATTENDING PHYSICIAN:Jesusita Osuna MD Order:[id number] Reason : VT Test Date/Time Stamp:SunMar 18 2023 17:40:32Blood Pressure : / mmHGVent. Rate : 072 BPM Atrial Rate : 072 BPM P-R Int : 138 ms QRS Dur : 092 ms QT Int : 406 ms P-R-T Axes : 041 033 108 degrees QTc Int : 444 ms Normal sinus rhythmInferior infarct , age undeterminedAnterolateral infarct , age undeterminedAbnormal ECGNo previous ECGs availableConfirmed by MARIANNA SCHILLING ([id number]) on 03/18/2023 8:02:58 PM Referred By: Self Referred Confirmed by:MARIANNA SCHILLING at 2002 PATIENT NAME: CHARAN RESTREPO .[id number] AVAvailable for patient oiqxOUDVUTGVKDDTNG3381-93-99D53:03:30 [facility] 2023-03-18 17:40:00 [id number] KnHLy+h3fYndvHEmQh7ylT210IzVg hTRy5nRVu/aFERK5ZKaJIgXWzwP7235-37-37O94:40:92912 0-0052 [place] [address] PATIENT NAME: CHARAN RESTREPO ADMIT DATE: 03/18/23ACCOUNT NO: [id number] ROOM NO: Z.503 AGE: 52 REPORT TYPE: ELECTROCARDIOGRAM SEX: M ADMITTING PHYSICIAN:Montez Jernigan MD ATTENDING PHYSICIAN:Montez Jernigan MD Order:[id number] Reason : VT Test Date/Time Stamp:SunMar 18 2023 17:40:32Blood Pressure : / mmHGVent. Rate : 072 BPM Atrial Rate : 072 BPM P-R Int : 138 ms QRS Dur : 092 ms QT Int : 406 ms P-R-T Axes : 041 033 108 degrees QTc Int : 444 ms Normal sinus rhythmInferior infarct , age undeterminedAnterolateral infarct , age undeterminedAbnormal ECGNo previous ECGs availableConfirmed by MARIANNA SCHILLING ([id number]) on 03/20/2023 5:50:07 PM Referred By: Self Referred Confirmed by:MARIANNA SCHILLING at 1750 PATIENT NAME: CHARAN RESTREPO .[id number] AVAvailable for patient mkwfOSPOGVHWPNELZR3028-70-98Y34:50:36 [facility] 2023-03-18 17:25:00 [id number] ndWTkKW7P6qrftV/+fXA2tsbQkREv 1HXZnYUEvzEym0MIVS8Qn5rF7aU6848-64-11G33:25:00 [facility] ([facility])Hospitalist History PhysicalREPORT#:[id number] REPORT STATUS: SignedDATE:03/18/23 TIME: 1724 PATIENT: CHARAN RESTREPO UNIT #: [id number]#: [id number] [facility]GE: 52 SEX: M ATTEND: Montez Jernigan [facility] AUTHOR: Davi Davison MD, MPH R2 * ALL edits or amendments must be made on the electronic/computer document * Davi Davison 03/18/231724:History of Present Illness HPIChief complaint:CHEST PAINPCP:PCP: Jesusita Osuna MD HPI:52 y/o M PMH DM2, HLD, CAD s/p 2 stents, HFpEF borderline, tobacco use, arthritis presented to [facility] for chest pain.Started feeling lightheaded, having chest pain earlier today. He went to the ER where it was found that he was in vtach at 240 BPM. Other than the above sx asx,vitals stable. Pt received amiodarone was started on an amiodarone drip. He received synchronized cardioversion at 100J which converted him to sinus rhythm.He was transferred to this facility for further cardiac testing.Upon initial arrival here it was found that he had V1/V2 ST elevations consistent w/ STEMI. He was emergently taken [facility] w/ Dr. James.C notable for multiple obstructions/near obstructions near his previous 2 LAD stents requiring 4 additional stents. EF 20%. Please see cardiology note for more accurate/additional details.01/16/23 cath - LAD CAD w/ stent, POBA LAD. 11/30/22 echo - EF 40-45%. Has been smoking 1-2 PPD for the past 30 years.At this time pt reports feeling well, generally improved. Has some chest discomfort but much improved over prior. Has a persistent cough that he says is typical for him. History Past Medical Surgical HxPatient History: 1. Hypertension 2. Hyperlipidemia 3. Coronary artery disease 4. Heart failure 5. History of heart artery stent 6. Tobacco use Family HistoryFamily history:Reports: Heart disease. Social HistoryAlcohol use: Alcohol use (social)Drug use: Denies recreational drugsSmoking status for patients 13 years old or older: Current every day smokerPacks per day: 1Years smoked: 30 Medication/Allergy-Vaccine HxAllergies:Coded Allergies:No Known Allergies (03/18/23) Review of SystemsConstitutional:Denies: chills, fatigue, fever, generalized weakness, malaise. Skin:Denies: abrasion, rash, other. Allergy/Immun:Denies: allergic reaction, anaphylaxis. Eyes:Denies: visual loss/blurred. ENT:Denies: hearing loss. Respiratory:Denies: DWYER (dyspnea on exertion), non productive cough, pleurisy, pleuritic pain, pneumonia, productive cough (sputum), SOB, wheezing. Cardiovascular:Denies: chest pain, DWYER (dyspnea on exertion), edema, orthopnea, palpitations. GI:Denies: abdominal pain, constipation, diarrhea, nausea, vomiting. :Denies: dysuria, flank pain. Musculoskeletal:Denies: arthritis, extremity pain, extremity swelling, joint pain, joint swelling. Neuro:Denies: bladder dysfunction, bowel dysfunction, change in LOC, confusion, dizziness, focal weakness, gait problem, headache, lightheaded. Psych:Denies: agitation, anxiety. All systems rev neg: except as noted OBJECTIVEVS/I O:Patient Weight and BMI Weight (kg): BMI: General appearance: alert, awake, orientedHead/Eyes: atraumatic, normocephalicENT: moist mucosal membranes, normal dentitionNeck: full range of motion, supple/no meningismusCardiovascular: normal capillary refill, normal heart sounds, regular rate rhythmRespiratory: wheezing (monophonic expiratory upper), aerating well, clear to auscultation, symmetric expansion, no distressAbdomen: non-tender, soft, no distentionExtremities: moves all, normal capillary refill, normal range of motionMusculoskeletal: normal inspection, painless range of motionNeuro/PARISH NURSE: alert, oriented X 3, CNII-XII intact, normal speechSkin: dry, normal temperaturePsychiatry: normal affect, normal judgment/insight ResultsFindings/Data:Laboratory Tests: 03/18 03/18 1618 1534 Coagulation Activated Coag Time (74 - 137 SEC) 275 H 281 H Diagnosis, Assessment PlanProblem List/A P: 1. STEMI (ST elevation myocardial infarction) 2. Hypertension 3. Hyperlipidemia 4. Coronary artery disease 5. Heart failure 6. History of heart artery stent 7. Wheezing 8. Tobacco use Free Text A P:52 y/o M PMH HTN, HLD, CAD s/p 2 stents, HFpEF borderline presented to [facility] chest pain. STEMI (ST elevation myocardial infarction) : Hypertension : HLD : CAD : HF : Hx stent03/18 AM - chest pain/dizziness, found to be in vtach at [facility]. Placed on amiodarone drip, given sync cardioversion which resolved issue. Transferred here per Dr. Schilling, found to have V1/V2 ST elevation[facility] - 4x stent placed. EF 20%.Per Dr. James - continue nitro drip. Defer restart home BP rx Given tirofiban in [facility], ASA, ticagrelor Avoid heparin products at this timePlan:Cardio management per Dr. Mock: Nitro drip ASA 81, ticagrelor 90 BID Atorvastatin 40 Morphine 2 IV q6 - consider d/c after 03/20 or Home rx (deferred): Entresto 24-26 BID Bisoprolol/HCTZ 6.25 FS3Uxtxryw A1c, is on jardiance unknown dose at hxwnR0e pending, LDSS Tobacco hx : Nybaihlx06+ pack-year smoking hxMild expiratory wheezing, possible COPD componentNicotine patch, consider duonebs/maintenance inhalers worsening SOB/cough ArthritisChronic arthritis of both knees/hips, was told that he should have replacements at some pointRx: Home norco 10 BID PRN Code: FULLDiet: CardiacDVT: SCDConsultants: cardiology Quality: Gen Med Crit Care VTE ProphylaxisVTE prophylaxis initiated: yes Current MedicationsCurrent medication review:I attest that the foregoing medication list in the medical record is true, accurate, and complete to the best of my knowledge. Jesusita Osuna 03/18/23 1851:Attestations Teaching Physician Nqmvspqpzaa1ay visit w/ resident:I was present with the resident during the history and exam. I discussed the case with the resident and . . . agree with the findings and plan as documented in the resident's note. agree with the findings and plan as documented in the resident's note EXCEPT: at 1819 at 1506 RPT #:[id number] OF REPORTHPHistory and physical [id number]:25:00Z.[id number] AVAvailable for patient jtbyCOZMWXWPJXEBES0706-23-55V62:20:05 [facility] 2023-03-18 17:24:00 [id number] [id number]:24:01829 8-0023 [place] [id number] PATIENT NAME: CHARAN RESTREPO ADMIT DATE: 03/18/23ACCOUNT NO: [id number] ROOM NO: Z.503 AGE: 52 REPORT TYPE: CARDIAC CATHETERIZATION REPORT SEX: M ADMITTING PHYSICIAN:Montez Jernigan MD ATTENDING PHYSICIAN:Montez Jernigan MD PROCEDURE DATE: 03/18/2023 PROCEDURES PERFORMED:1. Percutaneous coronary intervention of proximal and mid left anterior descending.2. Intravascular ultrasound examination of left anterior descending.3. Left heart catheterization and left ventricular angiogram. REASON FOR PROCEDURE: The patient is a 52-year-old male with a history of heartfailure, reduced EF and PCI of the LAD, who [place] [facility] [place]. He then had VT had to be shocked and had ST elevations in V1, V2, V3. He was life-flighted to [facility] where we emergently brought into the wharf laborer. SEDATION USED: Moderate sedation. PATIENT ACCESS MANAGER: Paco James MD PROCEDURAL DETAILS: The patient was brought to the wharf laborer in an emergent fashion. He was draped in typical sterile fashion. I obtained right femoral arterial access under ultrasound guidance and inserted a 6-Syriac sheath using amicropuncture kit. At this point, we had a lot of difficulty obtaining pressures from the manifold, this caused a delay in our procedure. After changing the cable several times, we were eventually able to get pressure and decided to proceed with the procedure. I took a JR4 diagnostic catheter up to the difficulty getting pressure reliably. We were able to get it, so I brought aJR4 diagnostic catheter up to the aortic root and cannulated the right coronary artery and performed an angiogram in two views. I then took a JL4 diagnostic catheter up to the aortic root and performed the angiogram, which demonstrated the thrombus in the proximal LAD and the stenosis in the distal LAD. At this point, we could not get pressure and this caused a delay, so we attempted to change at the manifold and then we changed out the cables and then we changed out and then we restarted the system and finally got pressure on board. During this time, the patient was chest pain free and there was ARELY 3 flow. We then administered 9000 units of heparin intra-arterial. I took a EBU 4 6-Syriac guide up to the aortic root over [...] took the IVUS catheter and examined the vesselto size the vessel. I then selected a 2.75 x 15 [place] stent and positioned in the distal LAD overlapping with the old stents and deployed it to PATIENT NAME: CHARAN RESTREPO nominal pressure. I then pulled the stent delivery balloon back and expanded it. I then reinflated the balloon to high pressure. I then removed that stent delivery system and brought up to 3.5 x 22 mm [place] stent and positioned in the proximal LAD overlapping with the old stents. I then deployed that nominal pressure. I then advanced the stent balloon delivery system forward and reinflated the stent delivery system to high pressure. At this point, there wassome evidence of no reflow, so I gave nitroglycerin IV 200 mcg and repeated thisfor a couple doses. The flow improved some, but there appeared to be a haziness in the mid LAD where diagonal 1 takes off and there was a concern for thrombus there and additionally, there was a septal #2 was a very large septal that appeared to be compromised. I took a second Runthrough wire and attempted to cannulate that second septal, but was unsuccessful. At this point, the patient was having a lot of chest pain and I was not sure if it was due to no reflow or due to this infarct and septal, so I took a second Runthrough wire and tried to cannulate the septal #2, but was unsuccessful. Exchanged for a Garry blue wire, but again could not cannulate the septal branch. I then decided to deal with haziness in the mid LAD, so we positioned a 2.75 x 12 mm [place] stent in the mid LAD and deployed it to nominal pressure. I then advanced the stent balloon a little bit forward and then inflated to high pressure and then pulled back a little bit and inflated again to high pressure. The stent was a second layer of stents, so I felt comfortable ballooning outside the stent margins as that the area of the balloon was all covered by stent. At this point, there wasstill no reflow. I did take the IVUS catheter down and did not see any evidenceof dissection, but there did appear to be a stenosis distal to the most distal stent and the patient was still having a lot of chest pain. I then positioned a2.25 x 15 mm [place] stent distally and deployed it to slightly less than nominal pressure. I then pulled the stent balloon back slightly and then reinflated the stent to delivery system to high pressure. At this point, there again appeared to be no refill and the patient was still having chest pain. So, I gave diltiazem at 100 mcg per mL down the coronary and I repeated this at 200 mcg allotments for a total of 1000 mcg. As we gave the medicines, the patient's symptoms improved a lot and he became almost chest pain free. We decided to hang a nitro drip and gave a bolus of Aggrastat and the patient was also even before this loaded with 180 mg of Brilinta. I then took another angiogram, which then showed ARELY 3 flow and 0% stenosis, so I decided to end the procedure. I removed the guide and exchanged for a pigtail and crossed the aortic valve and then performed an LV angiogram which showed an EF of 20% and anEDP of 25. I then performed the pullback and then removed the pigtail over a wire. I then closed the arteriotomy with a Perclose device. PROCEDURAL FINDINGS: The RCA is a large caliber vessel, it gives the PDA and PLbranches. There is a diffuse minimal coronary artery disease in the proximal section. The left main is a large caliber vessel and gives rise to the LAD and left circumflex. There is no significant left main disease. So, left circumflex is a large caliber vessel that gives off several OM branches. There is minimal diffuse disease in the mid and distal portions. The LAD is a moderate caliber vessel, which has 2 overlapping stents in the midportion. In the proximal portion, there appears to be stenosis with a large burden of thrombus and distal to the previously placed stents, there is a 90% stenosis. After treating the patient with the 3.5 x 22 mm, 2.75 x 15 mm, 2.75 x 12 mm and 2.25 x 15 mm [place] stent, there was 0% stenosis in ARELY 3 flow and no evidence of wire perforation or guide dissection. ESTIMATED BLOOD LOSS: There was 20 mL of blood loss. PATIENT NAME: CHARAN RESTREPO COMPLICATIONS: No complications. RECOMMENDATIONS: Recommend 4-hour of bed rest. Continue aspirin and ytvtzgwvrb96 mg b.i.d. Wean nitro drip tomorrow. Would hold off on diuretics until tomorrow unless the patient starts shortness of breath, in which case I would give IV Lasix and hold off on beta luís until tomorrow. Dictated By: Paco James MD Date Dictated: 03/18/2023 17:24:48Date Transcribed: 03/18/2023 22:18:00DNATALI/Yadira #: [id number] ID: [id number] by Paco James MD On 03/20/2023 04:12:22 PM at 0412 PATIENT NAME: CHARAN RESTREPO pmwn2086-75-12H29:18:00Z.[id number] ble for patient rfvsIMEUJHQWZJQIJB9572-65-08U49:13:05 [facility] 2023-03-18 15:02:00 [id number] [id number]7-72B67:02:00 [facility]neCard[facility] ConsultationREPORT#:[id number] REPORT STATUS: SignedDATE:03/18/23 TIME: 1502 PATIENT: CHARAN RESTREPO UNIT #: [id number]#: [id number] [facility] AGE: 52 SEX: M ATTEND: Jesusita Osuna [facility] AUTHOR: Paco James MD * ALL edits or amendments must be made on the electronic/computer document * See AddendumDiagnosis, Assessment Plan Free Text DxA P NotesFree Text DxA P Notes:The patient is a 52 year old male with CAD who presented to outside er with chest pain, VT s/p cardioversion, found to have st elevation in v1.v2 consistentwith stemi. -plan for emergent LHC at 1503 Addendum 1: 03/18/23 180 by Paco James MD Patient was found to have thrombotic lesion in the proximal LAD and another stenosis in the distal LAD status post PCI x4, patient was loaded with ticagrelor and given a loading dose of Aggrastat. Recommend 4 hours bedrest would hold off on beta-blockers for now, if the patient becomes short of breath give IV Lasix (LVEDP was high at 25, EF about 20%) Critical Care Time: The patient is critically ill with one or more vital organ system dysfunction resulting in a high probability of imminent or life threatening deterioration in the patient's condition. I spent 35 minutes of unittime on the following activities: reviewing the EMR, reviewing hemodynamic data,reviewing telemetry data, discussing the patient's care with the multi-disciplinary team, and documenting the relevant findings, assessment, and recommendations in the patient's electronic health record. Time is separate fromany billable procedures. at 1810 RPT #:[id number] OF REPORTUJZfnxfedbuxfr0295-01-82H07:02:00Z.PDOC2 [id number] for patient bwftACOLBREZCMQEST2159-05-76F88:03:47 [facility]
[2023-11-05] MEDS ORDERED: ENOXAPARIN 100 MG/ML SYR SQ ONE (03:03)
[2023-11-05] MEDS ORDERED: ONDANSETRON 4 MG/2 ML VIAL ONE (03:03)
[2023-11-05] MEDS ORDERED: ASPIRIN 81 MG CHEWABLE TABLET ONE (03:04)
[2023-11-05] MEDS ORDERED: MORPHINE 4 MG/ML SYR ONE ×2 (03:04→06:51)
[2023-11-05] MEDS ORDERED: LORazepam 2 MG/ML VIAL ONE (03:04)
[2023-11-05 03:08] LABS: Hematocrit 47.8 % (39.6-49.0); Lymphocytes % 17.1 % (15.3-44.8); MCV 83.4 fL (80-100); MPV 8.7 fL (7.6-11.3); Platelets 217 thou/uL (152-406); RBC Red Blood Cell Count 5.73 M/uL (4.33-5.43)
[2023-11-05 04:22] LABS: Protime INR 1.13
[2023-11-05 04:27] LABS: SARS-CoV-2 Antigen Rapid Res Negative (Negative)
[2023-11-05 04:41] LABS: Albumin 3.2 g/dL (3.4-5.0); Bilirubin Direct 0.2 mg/dL (0-0.2); Bilirubin Indirect, Calculated 0.4 mg/dL (0.2-0.8); Bilirubin Total 0.6 mg/dL (0.2-1.0); Potassium 3.7 mEq/L (3.5-5.1); Protein, Total 6.8 g/dL (6.4-8.2); Troponin High Sensitivity 15.1 pg/mL (<58.9)
--- NOTE | 2023-11-05 06:42 | ER ---
Nurse's Notes [facility] Name: Charan Restrepo Jr Age: 53 yrs Sex: Male : 1970 Arrival Date: 11/05/2023 Time: 02:27 Bed 20 Private MD: Diagnosis: Unstable angina;Acute chest pain, Presentation: 11/05 02:43 Chief complaint: Patient states: "It feels like someone is stabbing me in the chest jw7 with an ice pick". Coronavirus screen: At this time, the client does not indicate any symptoms associated with coronavirus-19. Ebola Screen: No symptoms or risks identified at this time. Initial Sepsis Screen: Does the patient meet any 2 criteria? No. Patient's initial sepsis screen is negative. Does the patient have a suspected source of infection? No. Patient's initial sepsis screen is negative. Risk Assessment: Do you want to hurt yourself or someone else? Patient reports no desire to harm self or others. Onset of symptoms was November 05, 2023. 02:43 Method Of Arrival: Wheelchair jw7 02:43 Acuity: MARTY 2 jw7 Triage Assessment: 02:46 General: Appears in no apparent distress. uncomfortable, Behavior is calm, cooperative. jw7 Pain: Complains of pain in chest Pain radiates to left arm Pain currently is 9 out of 10 on a pain scale. Quality of pain is described as stabbing, Pain began suddenly, Is continuous. EENT: No deficits noted. No signs and/or symptoms were reported regarding the EENT system. Neuro: Level of Consciousness is awake, alert, obeys commands, Oriented to person, place, time, situation. Cardiovascular: Heart tones S1 S2 present Capillary refill < 3 seconds Clubbing of nail beds is absent JVD is absent Patient's skin is warm and dry. Respiratory: Airway is patent Trachea midline Respiratory effort is even, unlabored, Respiratory pattern is regular, symmetrical. GI: Abdomen is flat, non-distended, Bowel sounds present X 4 quads. : No deficits noted. No signs and/or symptoms were reported regarding the genitourinary system. Derm: Skin is intact, is healthy with good turgor, Skin is dry, Skin is normal, Skin temperature is warm. Musculoskeletal: Circulation, motion, and sensation intact. Range of motion: intact in all extremities. Historical: - Allergies: 02:46 No Known Allergies; jw7 - Home Meds: 02:46 Entresto oral [Active]; Ramipril Oral [Active]; aspirin 81 mg Oral capsule [Active]; jw7 hydrocodone-acetaminophen 10-325 mg Oral tablet for pain [Active]; - PMHx: 02:46 heart attack; Hyperlipidemia; Hypertension; Diabetes mellitus; jw7 - PSHx: 02:46 6 heart stents; Bone Graft (6 heart stents); Cholecystectomy; jw7 - Immunization history:: Adult Immunizations up to date, Client reports receiving the 2nd dose of the Covid vaccine, Flu vaccine is not up to date. - Social history:: Smoking status: Patient reports the use of cigarette tobacco products, smokes two packs cigarettes per day. Patient uses alcohol, but reports only rare drinking. Patient/guardian denies using street drugs, IV drugs. - Family history:: not pertinent. Screenin:51 [facility] ED Fall Risk Assessment (Adult) History of falling in the last 3 months, jw7 including since admission No falls in past 3 months (0 pts) Score/Fall Risk Level 0 - 2 = Low Risk Oriented to surroundings, Maintained a safe environment, Educated pt \\T\\ family on fall prevention, incl call for assistance when getting out of bed. Abuse screen: Denies threats or abuse. Denies injuries from another. Nutritional screening: No deficits noted. Tuberculosis screening: No symptoms or risk factors identified. Assessment: 03:00 General: See triage assessment. jw7 04:00 Reassessment: Patient appears in no apparent distress at this time. Patient and/or jw7 family updated on plan of care and expected duration. Pain level reassessed. Patient is alert, oriented x 3, equal unlabored respirations, skin warm/dry/pink. 05:15 Reassessment: Patient appears in no apparent distress at this time. Patient and/or jw7 family updated on plan of care and expected duration. Pain level reassessed. Patient is alert, oriented x 3, equal unlabored respirations, skin warm/dry/pink. 06:30 Reassessment: Patient appears in no apparent distress at this time. Patient and/or jw7 family updated on plan of care and expected duration. Pain level reassessed. Patient is alert, oriented x 3, equal unlabored respirations, skin warm/dry/pink. Continued chest pain rated 8/10. 07:25 General: Appears in no apparent distress. Pain: Complains of pain in chest. Neuro: ap3 Level of Consciousness is awake, alert, obeys commands, Oriented to person, place, time, situation, Speech is normal. Cardiovascular: Patient's skin is warm and dry. Respiratory: Airway is patent Respiratory effort is even, unlabored, Respiratory pattern is regular, symmetrical. 10:44 General: report called to receiving nurse. ap3 Vital Signs: 02:43 BP 151 / 91; Pulse 89; Resp 14 S; Temp 98.9(O); Pulse Ox 99% on R/A; Weight 87.09 kg; jw7 Height 5 ft. 10 in. ; Pain 9/10; 03:30 BP 132 / 82; Pulse 84; Resp 16; Pulse Ox 98% ; jw7 04:34 BP 133 / 72; Pulse 74; Resp 16 S; Pulse Ox 98% on R/A; jw7 05:39 BP 122 / 75; Pulse 73; Resp 17 S; Pulse Ox 96% on R/A; jw7 06:30 BP 108 / 64; Pulse 76; Resp 17 S; Pulse Ox 95% on R/A; jw7 07:30 BP 107 / 75; Pulse 80; Pulse Ox 97% on R/A; ap3 09:58 BP 131 / 73; Pulse 83; Pulse Ox 97% on R/A; ap3 10:45 BP 118 / 81; Pulse 67; Pulse Ox 96% on R/A; ap3 02:43 Body Mass Index 27.55 (87.09 kg, 177.8 cm) jw7 02:43 Pain Scale: Adult jw7 ED Course: 02:28 Patient arrived in ED. jj6 02:31 Kai Fuentes MD is Attending Physician. sp4 02:32 Hayde Woodall, AYLIN is Primary Nurse. jw7 02:46 Triage completed. jw7 02:46 Arm band placed on. jw7 02:51 Patient has correct armband on for positive identification. Bed in low position. Call [facility] light in reach. Client placed on continuous cardiac and pulse oximetry monitoring. NIBP monitoring applied. 02:51 Initial lab(s) drawn, by ED staff, sent to lab. Inserted saline lock: 20 gauge in right 7 forearm, using aseptic technique. Blood collected. Patient maintains SpO2 saturation greater than 95% on room air. 03:41 Influenza Screen (a \\T\\ B) Sent. pm6 03:41 SARS RAPID Sent. pm6 04:10 XRAY Chest (1 view) In Process Unspecified. EDMS 06:41 Ld Palomino is Hospitalizing Provider. sp4 07:25 No provider procedures requiring assistance completed. ap3 07:30 Provided Education on: need for admission. ap3 10:45 Patient admitted, IV remains in place. ap3 Administered Medications: 03:15 Drug: Aspirin PO Chewable Tablet 324 mg PO once; 81 mg tablets x 4 Route: PO; jw7 06:57 Follow up: Response: No adverse reaction jw7 03:15 Drug: Enoxaparin Sub-Q 90 mg Sub-Q once Route: Sub-Q; Site: abdomen; jw7 06:57 Follow up: Response: No adverse reaction jw7 03:15 Drug: Ativan IVP 1 mg IVP once Route: IVP; Site: right forearm; jw7 06:57 Follow up: Response: No adverse reaction jw7 03:15 Drug: Ondansetron IVP 4 mg IVP once; over 2 minutes Route: IVP; Site: right forearm; jw7 06:57 Follow up: Response: No adverse reaction jw7 03:20 Drug: morphine IVP or IV 4 mg IVP once over 4 mins Route: IVP; Infused Over: 4 mins; jw7 Site: right forearm; 06:57 Follow up: Response: No adverse reaction; Marked relief of symptoms jw7 06:57 Drug: morphine IVP or IV 4 mg IVP See Administration Instructions over 4 mins; PRN pain jw7 Q 2 hours Route: IVP; Infused Over: 4 mins; Site: right forearm; 06:58 Follow up: Response: No adverse reaction jw7 Medication: 07:25 VIS not applicable for this client. ap3 Outcome: 06:42 Decision to Hospitalize by Provider. sp4 10:44 Admitted to Med/surg accompanied by tech, room 205, ap3 10:44 Condition: good 10:44 Discharge instructions given to patient, Instructed on the need for admit, Demonstrated understanding of instructions, 11:20 Patient left the ED. ap3 Signatures: Dispatcher [facility] Ina Baker RN RN ap3 Fiona Bell6 Hayde Woodall RN RN jw7 Kai Fuentes MD MD sp4 Lia Collins pm6 Corrections: (The following items were deleted from the chart) 03:30 02:45 General: See triage assessment. jw7 jw7
--- NOTE | 2023-11-05 06:43 | EDPHYS ---
Physician Documentation [facility] Name: Charan Restrepo Jr Age: 53 yrs Sex: Male : 1970 Arrival Date: 11/05/2023 Time: 02:27 Bed 20 Private MD: ED Physician Kai Fuentes HPI: 11/05 02:31 This 53 yrs old Male presents to ER via Unassigned with complaints of Chest sp4 Pain, Shortness Of Breath, Arm Pain. 02:50 PMH - Historical: Allergies: No Known Allergies; PMHx: 15:54 Hyperlipidemia; sp4 Hypertension; heart attack; PSHx: 6 heart stents;. 06:24 53-year-old male with history of 6 prior coronary stents, last stent at [address] in March 2023, presents with acute onset chest pain starting 1 to 2 hours prior to arrival associated with midsternal chest pain pressure and radiation of pain into the left arm. Patient is concerned about recurrence of your heart attack. . Historical: - Allergies: 02:46 No Known Allergies; jw7 - Home Meds: 02:46 Entresto oral [Active]; Ramipril Oral [Active]; aspirin 81 mg Oral capsule [Active]; jw7 hydrocodone-acetaminophen 10-325 mg Oral tablet for pain [Active]; - PMHx: 02:46 heart attack; Hyperlipidemia; Hypertension; Diabetes mellitus; jw7 - PSHx: 02:46 6 heart stents; Bone Graft (6 heart stents); Cholecystectomy; jw7 - Immunization history:: Adult Immunizations up to date, Client reports receiving the 2nd dose of the Covid vaccine, Flu vaccine is not up to date. - Social history:: Smoking status: Patient reports the use of cigarette tobacco products, smokes two packs cigarettes per day. Patient uses alcohol, but reports only rare drinking. Patient/guardian denies using street drugs, IV drugs. - Family history:: not pertinent. ROS: 06:32 Constitutional: Negative for fever, chills, and weight loss, Cardiovascular: Positive sp4 for midsternal chest pain, left arm pain 06:32 All other systems are negative, Exam: 06:32 Constitutional: This is a well developed, well nourished patient who is awake, alert, sp4 and in no acute distress. Head/Face: Normocephalic, atraumatic. Eyes: Pupils equal round and reactive to light, extra-ocular motions intact. Lids and lashes normal. Conjunctiva and sclera are not injected. Cornea within normal limits. Periorbital areas with no swelling, redness, or edema. ENT: Nares patent. No nasal discharge, no septal abnormalities noted. Tympanic membranes are normal and external auditory canals are clear. Oropharynx with no redness, swelling, or masses, exudates, or evidence of obstruction, uvula midline. Mucous membranes moist. Neck: Trachea midline, no thyromegaly or masses palpated, and no cervical lymphadenopathy. Supple, full range of motion without nuchal rigidity, or vertebral point tenderness. Chest/axilla: Normal chest wall appearance and motion. Nontender with no deformity. No lesions are appreciated. Cardiovascular: Regular rate and rhythm with a normal S1 and S2. No gallops, murmurs, or rubs. Normal PMI, no JVD. No pulse deficits. Respiratory: Lungs have equal breath sounds bilaterally, clear to auscultation and percussion. No rales, rhonchi or wheezes noted. No increased work of breathing, no retractions or nasal flaring. Abdomen/GI: Soft, non-tender, with normal bowel sounds. No distension or tympany. No guarding or rebound. No evidence of tenderness throughout. Back: No spinal tenderness. No costovertebral tenderness. There is sacral decubitus ulcer that is covered by the wound VAC. Skin: Warm, dry with normal turgor. Normal color with no rashes, no lesions, and no evidence of cellulitis. MS/ Extremity: Pulses equal, no cyanosis. Neurovascular intact. Full, normal range of motion. Neuro: Awake and alert, GCS 15, oriented to person, place, time, and situation. Cranial nerves II-XII grossly intact. Motor strength 5/5 in all extremities. Sensory grossly intact. Psych: Awake, alert, with orientation to person, place and time. Behavior, mood, and affect are within normal limits 06:32 ECG was reviewed by the Attending Physician. EKG at 0 235 reveals normal sinus rhythm with a rate of 87, left axis deviation, no ST elevation or depression. Vital Signs: 02:43 BP 151 / 91; Pulse 89; Resp 14 S; Temp 98.9(O); Pulse Ox 99% on R/A; Weight 87.09 kg; jw7 Height 5 ft. 10 in. ; Pain 9/10; 03:30 BP 132 / 82; Pulse 84; Resp 16; Pulse Ox 98% ; jw7 04:34 BP 133 / 72; Pulse 74; Resp 16 S; Pulse Ox 98% on R/A; jw7 05:39 BP 122 / 75; Pulse 73; Resp 17 S; Pulse Ox 96% on R/A; jw7 06:30 BP 108 / 64; Pulse 76; Resp 17 S; Pulse Ox 95% on R/A; jw7 07:30 BP 107 / 75; Pulse 80; Pulse Ox 97% on R/A; ap3 09:58 BP 131 / 73; Pulse 83; Pulse Ox 97% on R/A; ap3 10:45 BP 118 / 81; Pulse 67; Pulse Ox 96% on R/A; ap3 02:43 Body Mass Index 27.55 (87.09 kg, 177.8 cm) jw7 02:43 Pain Scale: Adult jw7 MDM: 02:39 Patient medically screened. sp4 06:36 Differential diagnosis: acute myocardial infarction, acute pericarditis, anxiety, sp4 coronary artery disease chest wall pain, congestive heart failure. HEART Score: History: Moderately Suspicious (1), ECG: Non specific repolarization disturbance / LBTB / PM (1), Age: > 45 and < 65 years (1), Risk Factors: > or = 3 Risk factors for atherosclerotic disease (2), Troponin: < or = 1 x Normal Limit (0), Total Score = 5. The patient was given aspirin in the Emergency Department. Data reviewed: vital signs, nurses notes, old medical records, lab test result(s), EKG, radiologic studies, plain films. Consideration of Admission/Observation Patient was admitted/placed on observation. Escalation of care including admission/observation considered. Management of patient was discussed with the following: Hospitalist: Candelario MEHTA and Reynaldo MEHTA . ED course: Troponin is negative at this time, pain is improved, based on patient history patient requires admission for rule out ACS most likely consult with farm implement mechanic as well. 06:44 ED course: EXAM DESCRIPTION: Chest Single View CLINICAL HISTORY: CHEST PAIN COMPARISON: sp4 None TECHNIQUE: Single AP view of the chest. FINDINGS: Lung volumes adequate. Cardiac silhouette is normal in size. No pneumothorax. No large pleural effusion. No focal consolidation. No acute bony finding. IMPRESSION: No evidence of acute cardiopulmonary disease. . 11/05 02:39 Order name: Basic Metabolic Panel; Complete Time: 06:24 sp4 11/05 02:39 Order name: CBC with Diff; Complete Time: 06:24 sp4 11/05 02:39 Order name: LFT's; Complete Time: 06:24 sp4 11/05 02:39 Order name: Magnesium; Complete Time: 06:24 sp4 11/05 02:39 Order name: NT PRO-BNP; Complete Time: 06:24 sp4 11/05 02:39 Order name: PT-INR; Complete Time: 06:24 sp4 11/05 02:39 Order name: Troponin HS; Complete Time: 06:24 sp4 11/05 03:07 Order name: SARS RAPID; Complete Time: 06:24 sp4 11/05 03:07 Order name: Influenza Screen (a \T\ B); Complete Time: 06:24 sp4 11/05 06:24 Order name: Troponin High Sensitivity 4 11/05 08:59 Order name: CBC with Automated Diff EDMS 11/05 08:59 Order name: CBC with Automated Diff EDMS 11/05 08:59 Order name: Comprehensive Metabolic Panel EDMS 11/05 08:59 Order name: Comprehensive Metabolic Panel EDMS 11/05 08:59 Order name: Lipid Profile EDMS 11/05 08:59 Order name: Lipid Profile EDMS 11/05 08:59 Order name: Troponin High Sensitivity EDMS 11/05 08:59 Order name: Troponin High Sensitivity EDMS 11/05 08:59 Order name: Troponin High Sensitivity EDMS 11/05 08:59 Order name: Troponin High Sensitivity EDMS 11/05 02:39 Order name: XRAY Chest (1 view) sp4 11/05 09:01 Order name: Echo with Doppler EDMS 11/05 02:39 Order name: EKG; Complete Time: 02:39 sp4 11/05 08:59 Order name: CONS Physician Consult EDFL 11/05 02:39 Order name: Cardiac monitoring; Complete Time: 02:40 sp4 11/05 02:39 Order name: EKG - Nurse/Tech; Complete Time: 02:40 sp4 11/05 02:39 Order name: IV Saline Lock; Complete Time: 02:52 sp4 11/05 02:39 Order name: Labs collected and sent; Complete Time: 02:52 sp4 11/05 02:39 Order name: O2 Per Protocol; Complete Time: 02:41 sp4 11/05 02:39 Order name: O2 Sat Monitoring; Complete Time: 02:41 sp4 11/05 03:12 Order name: Misc. Order: recollect blue and green top; Complete Time: 03:41 as6 EC:32 Rate is 87 beats/min. Rhythm is regular, Normal Sinus Rhythm. Left axis deviation sp4 noted. KS interval is normal. QRS interval is normal. QT interval is normal. T waves are Flattened in lead V6. No ST changes noted. Clinical impression: No evidence of ischemia. Interpreted by me. Reviewed by me. Administered Medications: 03:15 Drug: Aspirin PO Chewable Tablet 324 mg PO once; 81 mg tablets x 4 Route: PO; jw7 06:57 Follow up: Response: No adverse reaction jw7 03:15 Drug: Enoxaparin Sub-Q 90 mg Sub-Q once Route: Sub-Q; Site: abdomen; jw7 06:57 Follow up: Response: No adverse reaction jw7 03:15 Drug: Ativan IVP 1 mg IVP once Route: IVP; Site: right forearm; jw7 06:57 Follow up: Response: No adverse reaction jw7 03:15 Drug: Ondansetron IVP 4 mg IVP once; over 2 minutes Route: IVP; Site: right forearm; jw7 06:57 Follow up: Response: No adverse reaction jw7 03:20 Drug: morphine IVP or IV 4 mg IVP once over 4 mins Route: IVP; Infused Over: 4 mins; jw7 Site: right forearm; 06:57 Follow up: Response: No adverse reaction; Marked relief of symptoms jw7 06:57 Drug: morphine IVP or IV 4 mg IVP See Administration Instructions over 4 mins; PRN pain jw7 Q 2 hours Route: IVP; Infused Over: 4 mins; Site: right forearm; 06:58 Follow up: Response: No adverse reaction jw7 Disposition Summary: 11/05/23 06:42 Hospitalization Ordered Notes: Hospitalization Status: Observation sp4 Provider: Ld Palomino sp4 Location: Telemetry/[facility] (observation) sp4 Condition: Stable sp4 Problem: new sp4 Symptoms: have improved sp4 Bed/Room Type: Standard sp4 Room Assignment: 205(11/05/23 10:12) bd Diagnosis - Unstable angina sp4 - Acute chest pain, sp4 Forms: - Medication Reconciliation Form sp4 - SBAR form sp4 - Leadership Thank You Letter sp4 Signatures: Dispatcher [employer] EDEmma Garzon Ashby, RN RN as6 Hayde Woodall RN RN jw7 Kai Fuentes MD MD sp4 Corrections: (The following items were deleted from the chart) 10:12 06:42 sp4 bd
[2023-11-05] MEDS ORDERED: ONDANSETRON 4 MG/2 ML VIAL IV PRN (08:35)
[2023-11-05] MEDS ORDERED: ACETAMINOPHEN 500 MG TAB PO PRN (08:35)
--- NOTE | 2023-11-05 08:58 | P.HP ---
Certification for Inpatient Patient admitted to: Observation With expected LOS: <2 Midnights Patient will require the following post-hospital care: None Practitioner: I am a practitioner with admitting privileges, knowledge of patient current condition, hospital course, and medical plan of care. Services: Services provided to patient in accordance with Admission requirements found in Title 42 Section 412.3 of the Code of Federal Regulations Patient History Date of Service: 11/05/23 Reason for admission: Chest pain rule out acute coronary syndrome History of Present Illness: Patient is a 53-year-old gentleman who came to the hospital with chest pain. Patient has a history of coronary artery disease. Patient had stent placed about 6 years ago. At that time patient had stenosis of his prior stent. Patient also had 4 stents placed in April. Patient was discharged on medication for his beta-luís therapy. Patient states he was on aspirin as well. He has not taken Plavix or Brilinta. Patient states he was having some chest discomfort and was short of breath. He came to the emergency room for further evaluation. I spoke with cardiology and they recommended observation. Will also start patient on Plavix. Will also continue with aspirin and statin therapy. At this time, we will admit the patient to the hospital and ruled out for acute coronary syndrome. We will also set up patient for a stress test in the morning. Cardiology has been consulted as well. Patient will be admitted for observation. Allergies No Known Drug Allergies Allergy (Verified 06/21/17 20:11) Unknown Home Medications: Clopidogrel Bisulfate [Plavix*] 75 mg PO DAILY #30 tablet 02/16/15 Metoprolol Tartrate [Lopressor*] 12.5 mg PO BID #30 tab 02/16/15 ramipriL [Altace*] 2.5 mg PO DAILY #30 cap 02/16/15 Aspirin [Aspirin EC 81 MG] 81 mg PO DAILY #30 tablet. 06/23/17 Atorvastatin Calcium [Lipitor] 80 mg PO BEDTIME #30 tab 06/23/17 Metformin HCl [Glucophage*] 500 mg PO BIDWM 12/01/19 - Past Medical/Surgical History Diabetic: Yes -: mycardial infarction x3 -: HTN -: kidney stones -: CAD -: HLD -: cholecystectomy -: left leg fixator -: right knee sx -: left elbow sx -: cardiac cath 3 w/ stent x2 over 5 years ago; pt w/ 4 stents in April -: bone graft -: right femur sx - Family History Father Medical History: Heart disease, Cancer - Social History Smoking Status: Current some day smoker Alcohol use: Yes CD- Drugs: No Caffeine use: Yes Review of Systems 10-point ROS is otherwise unremarkable Physical Examination - Vital Signs Temperature: 98 F (reviewed) - Physical Exam General: Alert, In no apparent distress, Oriented x3 HEENT: Atraumatic, PERRLA, Mucous membr. moist/pink, EOMI, Sclerae nonicteric Neck: Supple, 2+ carotid pulse no bruit, No LAD, Without JVD or thyroid abnormality Respiratory: Clear to auscultation bilaterally, Normal air movement Cardiovascular: Regular rate/rhythm, Normal S1 S2, Systolic murmur Gastrointestinal: Normal bowel sounds, Soft and benign, Non-distended, No tenderness Musculoskeletal: No clubbing, No swelling, No tenderness Integumentary: No rashes Neurological: Normal gait, Normal speech, Normal strength at 5/5 x4 extr, Normal tone, Sensation intact, Cranial nerves 3-12 intact, Normal affect Lymphatics: No axilla or inguinal lymphadenopathy - Studies Laboratory Data (last 24 hrs) 11/05/23 11/05/23 11/05/23 03:38 03:38 02:50 WBC 11.70 H Hgb 16.8 Hct 47.8 Plt Count 217 PT 12.4 INR 1.13 Sodium 136 Potassium 3.7 BUN 17 Creatinine 0.75 Glucose 158 H Magnesium 2.0 Total Bilirubin 0.6 AST 14 L ALT 25 Alkaline Phosphatase 69 Microbiology Data (last 24 hrs): 11/05/23 03:38 Nasopharnyx Influenza Type A Antigen Screen - Final 11/05/23 03:38 Nasopharnyx Influenza Type B Antigen Screen - Final Assessment & Plan - Problems (Diagnosis) (1) Chest pain, rule out acute myocardial infarction Current Visit: Yes Status: Acute (2) CAD (coronary artery disease) Onset Date: 06/22/17 Current Visit: No Status: Chronic Qualifiers: Coronary Disease-Associated Artery/Lesion type: creek artery [place] vs. transplanted heart: creek heart Associated angina: with unstable angina Qualified Code(s): I25.110 - Atherosclerotic heart disease of creek coronary artery with unstable angina pectoris (3) CKD (chronic kidney disease), stage III Onset Date: 06/22/17 Current Visit: No Status: Chronic (4) Hyperlipidemia Onset Date: 06/22/17 Current Visit: No Status: Chronic Qualifiers: Hyperlipidemia type: unspecified Qualified Code(s): E78.5 - Hyperlipidemia, unspecified (5) Hypertension Onset Date: 02/16/15 Current Visit: No Status: Chronic Qualifiers: Hypertension type: essential hypertension Qualified Code(s): I10 - Essential (primary) hypertension (6) Nicotine dependence Current Visit: No Status: Chronic Qualifiers: Nicotine product type: cigarettes Substance use status: uncomplicated Qualified Code(s): F17.210 - Nicotine dependence, cigarettes, uncomplicated - Plan -High-sensitivity troponin -Cardiology consultation -Echocardiogram and stress test per cardiology recommendation -Repeat EKG -Work-up for other etiologies of cardiac chest pain if troponins remain negative -Lipid profile -Continue with antiplatelet therapy Discharge Plan: Home Plan to discharge in: 24 Hours - Advance Directives Does patient have a Living Will: No Does patient have a Durable POA for Healthcare: No - Code Status/Comfort Care Code Status Assessed: Yes Code Status: Full Code Critical Care: No Time Spent Managing PTS Care (In Minutes): 45
[2023-11-05] MEDS ORDERED: ALBUTEROL 2.5 MG/3 ML NEB SOL NEB PRN (09:00)
[2023-11-05] MEDS: ASPIRIN EC 81 MG TAB PO SCH (09:00)
[2023-11-05] MEDS ORDERED: IPRATROPIUM BROM 0.5MG/2.5ML NEB PRN (09:00)
[2023-11-05] MEDS: CLOPIDOGREL 75 MG TABLET PO ONE (09:15)
[2023-11-05 11:36] VITALS: BMI 27.9
[2023-11-05] MEDS: METOPROLOL TAR 25 MG TAB PO SCH ×2 (11:55→17:09)
[2023-11-05] MEDS: NA CHLORIDE 0.9% 1,000 ML IV SCH ×2 (11:56→23:59)
[2023-11-05] MEDS: METHYLPREDNISOLONE 40 MG INJ IV SCH ×2 (11:56→16:26)
[2023-11-05] MEDS: MORPHINE 2 MG/ML SYR IV PRN ×3 (11:56→21:07)
--- NOTE | 2023-11-05 16:53 | CON ---
Date of Consultation: 11/05/2023 Reason For Consultation: Chest pain. History Of Present Illness: 53-year-old male, past medical history are coronary artery disease, hype rtension, kidney stones, dyslipidemia, presented with chest pain, left-sided with radiation to the sh oulder, not thoroughly related to exertion. Denies having any nausea, vomiting, or diaphoresis. No chest pain at the present time. Past Medical History: As outlined above in the HPI. Medications: Refer to reconciliation sheet for detailed list. Allergies: NO KNOWN DRUG ALLERGIES. Family History: No premature coronary artery disease or cancer. Social History: He is an active smoker. Does not drink or use any drugs. Review of Systems: All systems reviewed and they were negative except as mentioned in the HPI. Physical Examination: Vital Signs: Reviewed. Head and Neck: Pupils are equal, reactive to light. Intact eye movements. No JVD. No cervical lym phadenopathy. Neck is supple. Thyroid is not enlarged. Lungs: Clear to auscultation bilaterally. No rhonchi, wheezing, or crackles. No accessory muscle u se. Heart: Regular rate and rhythm. No extra sounds. Abdomen: Soft, nontender. Bowel sounds positive. No organomegaly. No masses or hernia. No rigidi ty or rebound. Extremities: No edema, clubbing, or cyanosis. Intact pulses. Skin: No rash or nodule. Neurologic: Alert, awake, oriented x3. No acute focal deficits appreciated. Investigations: Troponins x2 are negative. BUN 17, creatinine 0.75, and hemoglobin is 16.8. Assessment And Recommendations: 1.Chest pain with known history of coronary artery disease. First 2 sets of cardiac enzymes are neg ative. Continue to monitor the third set of cardiac enzyme. Obtain an echocardiogram and we will pl an accordingly. Keep the patient on baby aspirin and Plavix for now. 2.Hypertension and the blood pressure. His blood pressure is controlled. Continue current therapy. 3.Dyslipidemia. Continue statin. SR/MODL Voice ID: [id number] Report ID: [id number]
--- NOTE | 2023-11-05 16:56 | EKG ---
Test Date: 2023-11-05 Test Time: 02:35:26 Inside Sales Agent: RV MEASUREMENT RESULTS: Intervals: Rate: 87 CO: 154 QRSD: 96 QT: 344 QTc: 413 [place]: P: 43 CO: 154 QRS: -43 T: 81 INTERPRETIVE STATEMENTS: Normal sinus rhythm Left axis deviation Inferior infarct, age undetermined Anterolateral infarct, age undetermined Abnormal ECG Compared to ECG 03/18/2023 13:08:01 No significant changes Electronically Signed On 11-05-23 16:55:06 ANALYSIS SPECIALIST by Pepe Rodriguez
[2023-11-05] MEDS: ATORVASTATIN 40 MG TAB PO SCH (21:07)
[2023-11-06] MEDS: MORPHINE 2 MG/ML SYR IV PRN ×4 (02:02→19:45)
[2023-11-06] MEDS: METOPROLOL TAR 25 MG TAB PO SCH ×2 (05:01→17:23)
[2023-11-06 05:45] LABS: Absolute Lymphocytes (CBC) 0.6 K/uL (0.7-4.9); Hematocrit 45.4 % (39.6-49.0); Lymphocytes % 3.9 % (15.3-44.8); MCV 83.3 fL (80-100); MPV 8.6 fL (7.6-11.3); Platelets 224 thou/uL (152-406); RBC Red Blood Cell Count 5.45 M/uL (4.33-5.43)
[2023-11-06 05:59] LABS: Albumin 2.9 g/dL (3.4-5.0); Bilirubin Total 0.5 mg/dL (0.2-1.0); Potassium 4.4 mEq/L (3.5-5.1); Protein, Total 6.6 g/dL (6.4-8.2); Troponin High Sensitivity 10.1 pg/mL (<58.9)
[2023-11-06] MEDS: METHYLPREDNISOLONE 40 MG INJ IV SCH ×3 (08:15→16:05)
[2023-11-06] MEDS: ASPIRIN EC 81 MG TAB PO SCH (08:16)
[2023-11-06] MEDS: CLOPIDOGREL 75 MG TABLET PO SCH (08:16)
[2023-11-06 09:46] LABS: Platelet Estimate ADEQ; White Blood Cell Scan OK (OK)
[2023-11-06 09:47] LABS: Blood Morphology Comment NOT SEEN (NOT SEEN)
[2023-11-06] MEDS ORDERED: NA CHLORIDE 0.9% 500 ML ONE (11:26)
[2023-11-06] MEDS ORDERED: VERAPAMIL HCL 10 MG/4 ML VIAL IV ONE (12:04)
[2023-11-06] MEDS ORDERED: LIDOCAINE 1% 20 ML MDV ONE (12:04)
[2023-11-06] MEDS ORDERED: HEPA 1000U/500MLS 2,000 UNIT/1,000 ML BAG IV ONE (12:04)
[2023-11-06] MEDS ORDERED: FENTANYL CITR 100 MCG/2 ML ONE (12:04)
[2023-11-06] MEDS ORDERED: MIDAZOLAM HCL 2 MG/2 ML INJ ONE (12:05)
[2023-11-06] MEDS ORDERED: HEPARIN 5000 UNIT/ML 1 ML VIAL ONE (12:05)
[2023-11-06] MEDS ORDERED: HEPARIN 10,000 UNIT/10 ML VIAL IV ONE (12:54)
--- NOTE | 2023-11-06 13:50 | OP ---
Date of Procedure: 11/06/2023 Surgeon: BRYAN GARDUNO Procedures Performed: 1.Selective coronary angiogram. 2.Left heart catheterization. 3.Failed attempt of PCI of a totally occluded mid to distal LAD. Indication: Unstable angina. Access: Right radial artery 6-Montenegrin closed with TR band. Anesthesia: Total sedation time was 50 minutes. I used fentanyl. Description Of Procedure: After risks, benefits, alternatives were explained, patient agreed to proc edure, and signed informed consent. Patient was brought into the cardiac catheterization laboratory, prepped and draped in the usual sterile fashion. Then, I accessed right radial artery using ElasticDot ic micropuncture kit, placed a 6-Montenegrin Slender sheath and took a 5-Montenegrin Boykin 4.0 catheter into th e aortic root over a J-wire, engaged the left main and then right coronary artery, took standard view s and then the catheter was pushed over the wire into the LV, measured the LVEDP. Pullback did not r ecord any gradient. Then I gave systemic heparin to assure ACT level above 250 throughout the proced ure and took EBU3.5 guide into the aortic root 6-Montenegrin, engaged the left main and tried to go over t he Runthrough to go through the stenosis, could not pass it. Then, I took a Fielder XT wire with the 1.2 balloon support and could not go through the MANUFACTURING ENGINEER CHIEF. Then removed the wires and the catheter and c oronary angiogram was still the same. Then, I removed the guide and the sheath, placed TR band with good hemostasis. Findings: 1.Left main; large and normal. 2.LAD; proximal 80% stenosis and then there is a stent that has diffuse 40% iSR and then at the diag onal 2 takeoff, it still totally occluded and there was some reconstitution of the distal LAD coming from some other vessels, probably RCA or left circumflex, it is not very clear. 3.Left circumflex. It is large size and has large size OM that has proximal and mid 40% stenosis. 4.RCA; large and dominant, proximal 40%, mid to distal 40% stenosis. 5.Elevated LVEDP at 36 mmHg. Conclusion: 1.Severe LAD stenosis, [id number] LAD is MANUFACTURING ENGINEER CHIEF 100%, failed attempt of PCI. 2.Moderate coronary artery disease elsewhere. 3.Severely elevated LVEDP. Recommendation: IV diuretics and obtain an echo and if his ejection fraction is normal or if he has viability, he could benefit from single-vessel CABG as an outpatient. SR/MODL Voice ID: [id number] Report ID: [id number]
[2023-11-06] MEDS ORDERED: FUROSEMIDE 40 MG/4 ML VIAL IV ONE (14:56)
[2023-11-06] MEDS ORDERED: ALBUMIN HUMAN 25% 50 ML IV ONE (14:56)
[2023-11-06] MEDS ORDERED: MORPHINE 4 MG/ML SYR ONE (15:08)
--- NOTE | 2023-11-06 15:56 | PN ---
Date of Progress Note: 11/06/2023 Subjective: The patient is seen at bedside. He still continues to have on and off chest pain, espec ially with activities. Review of Systems: Positive chest pain. No shortness of breath. No nausea, vomiting, or diarrhea. No abdominal pain. No dysuria, polyuria, or urinary urgency. All other systems reviewed, they were negative. Objective: Vital Signs: Reviewed. Head and Neck: Pupils are equal, reactive to light. Intact eye movements. No JVD. No cervical lym phadenopathy. Neck is supple. Thyroid is not enlarged. Lungs: Clear to auscultation bilaterally. No rhonchi, wheezing, or crackles. No accessory muscle u se. Heart: Regular rate and rhythm. No extra sounds. Abdomen: Soft, nontender. Bowel sounds positive. No organomegaly. No masses or hernia. No rigidi ty or rebound. Extremities: No edema, clubbing, or cyanosis. Intact pulses. Skin: No rash or nodule. Neurologic: Alert, awake, oriented x3. No acute focal deficits appreciated. Investigations: Labs reviewed. Assessment And Recommendations: 1.Unstable angina, status post coronary angiogram and he has totally occluded mid LAD and attempt to do PCI and did not work. plan for optimizing medical therapy for now, mainly aspirin. Di scontinue Plavix and obtain an echo. His ejection fraction is normal or if there is a good viability in the myocardium, then single-vessel bypass is the recommendation. 2.Elevated LVEDP and significant heart failure. Recommend IV diuretics with Lasix and obtain echo. 3.Hypertension. Blood pressure is controlled. SR/MODL Voice ID: [id number] Report ID: [id number]
[2023-11-06] MEDS: NA CHLORIDE 0.9% 1,000 ML IV SCH (16:04)
[2023-11-06] MEDS: ATORVASTATIN 40 MG TAB PO SCH (20:04)
[2023-11-06] MEDS ORDERED: D50W 25 GM/50 ML SYRINGE IV PRN (20:36)
[2023-11-06] MEDS ORDERED: GLUCAGON 1 MG/VIAL IM PRN (20:36)
[2023-11-06] MEDS ORDERED: D10W 125 ML IV PRN (20:40)
[2023-11-06] MEDS: INSULIN REGULAR (HUMAN) 100 UNIT/ML SQ SCH (20:49)
[2023-11-07] MEDS: MORPHINE 2 MG/ML SYR IV PRN ×4 (00:24→12:31)
[2023-11-07] MEDS: METHYLPREDNISOLONE 40 MG INJ IV SCH ×2 (00:25→08:32)
[2023-11-07 00:57] VITALS: O2SAT 96
[2023-11-07] MEDS: NA CHLORIDE 0.9% 1,000 ML IV SCH ×2 (01:00→04:06)
[2023-11-07] MEDS: METOPROLOL TAR 25 MG TAB PO SCH (05:14)
--- NOTE | 2023-11-07 07:16 | ECHO ---
HEIGHT: 5 ft 10 in WEIGHT: 195 lb 0 oz DATE OF STUDY: 11/06/[address]: Maribell Kohli MD 2-DIMENSIONAL: YES M.MODE: YES DOPPLER: YES COLOR FLOW: YES TDS: PORTABLE: YES DEFINITY: BUBBLE STUDY: DIAGNOSIS: CHEST PAIN, RULE OUT ACUTE CORONARY SYNDROME CARDIAC HISTORY: CATHERIZATION: YES SURGERY: NO PROSTHETIC VALVE: NO PACEMAKER: NO MEASUREMENTS (cm) DIASTOLIC (NORMALS) SYSTOLIC (NORMALS) IVSd 1.3 (0.6-1.2) LA Diam 3.2 (1.9-4.0) LVEF 35-40% LVIDd 6.6 (3.5-5.7) LVIDs 5.0 (2.0-3.5) %FS 24% LVPWd 1.3 (0.6-1.2) Ao Diam 3.1 (2.0-3.7) 2 DIMENSIONAL ASSESSMENT: RIGHT ATRIUM: NORMAL LEFT ATRIUM: NORMAL RIGHT VENTRICLE: NORMAL LEFT VENTRICLE: DEPRESSED EJECTION FRACTION TRICUSPID VALVE: NORMAL MITRAL VALVE: MILD MITRAL REGURGITATION PULMONIC VALVE: NORMAL AORTIC VALVE: NORMAL PERICARDIAL EFFUSION: NONE AORTIC ROOT: NORMAL LEFT VENTRICULAR WALL MOTION: DISTAL BENJAMIN SEPTAL AND APICAL AKINESIS DOPPLER/COLOR FLOW: SEE BELOW COMMENTS: 1. MODERATELY DEPRESSED LEFT VENTRICULAR EJECTION FRACTION 35-40% 2. DISTAL BENJAMIN SEPTAL AND APICAL AKINESIS 3. MILD MITRAL REGURGITATION 4. GRADE I DIASTOLIC DYSFUNCTION TECHNOLOGIST: SAMSON ACOSTA
[2023-11-07] MEDS: CLOPIDOGREL 75 MG TABLET PO SCH (08:31)
[2023-11-07] MEDS: ASPIRIN EC 81 MG TAB PO SCH (08:31)
[2023-11-07] MEDS: INSULIN REGULAR (HUMAN) 100 UNIT/ML SQ SCH ×2 (08:31→12:32)
--- NOTE | 2023-11-07 09:55 | RAD REPORT ---
EXAM DESCRIPTION: RAD - Chest Single View - 11/05/2023 4:08 am CLINICAL HISTORY: CHEST PAIN COMPARISON: None TECHNIQUE: Single AP view of the chest. FINDINGS: Lung volumes adequate. Cardiac silhouette is normal in size. No pneumothorax. No large pleural effusion. No focal consolidation. No acute bony finding. IMPRESSION: No evidence of acute cardiopulmonary disease. Electronically signed by: Lawrence Mayers MD 11/05/2023 04:22 AM QC CHEMIST Due to temporary technical issues with the PACS/Fluency reporting system, reports are being signed by the in house radiologists without review as a courtesy to insure prompt reporting. The interpreting radiologist is fully responsible for the content of the report
[2023-11-07 13:00] VITALS: BP 110/60; TEMP 97.5
== END 2023-11-07 13:53 | disposition home or self-care (01) | DRG 287 ==
LOC: ER 02:27 → ERHOLD 09:09 → 2ND 10:44 → OBSVTOIN 11-06 09:39
PROVIDERS: ADMIT Hospitalist; ATTEND Hospitalist
PROC: 4A023N7 Measurement of Cardiac Sampling and Pressure, Left Heart, Percutaneous Approach (ICD-10-PCS; principal; 2023-11-06)
PROC: B2111ZZ Fluoroscopy of Multiple Coronary Arteries using Low Osmolar Contrast (ICD-10-PCS; 2023-11-06)
DX: I25.110 Atherosclerotic heart disease of native coronary artery with unstable angina pectoris (principal); E78.5 Hyperlipidemia, unspecified; I12.9 Hypertensive chronic kidney disease with stage 1 through stage 4 chronic kidney disease, or unspecified chronic kidney disease; N18.30 Chronic kidney disease, stage 3 unspecified; E11.22 Type 2 diabetes mellitus with diabetic chronic kidney disease; F17.210 Nicotine dependence, cigarettes, uncomplicated; I25.2 Old myocardial infarction; Z95.5 Presence of coronary angioplasty implant and graft; Z86.73 Personal history of transient ischemic attack (TIA), and cerebral infarction without residual deficits; Z79.84 Long term (current) use of oral hypoglycemic drugs; Z79.82 Long term (current) use of aspirin; Z90.49 Acquired absence of other specified parts of digestive tract; Z79.899 Other long term (current) drug therapy
CPT/HCPCS: 36415; 71045; 76937; 80048; 80053; 80061; 80076; 82947; 83735; 83880; 84484; 85025; 85610; 87804; 87811; 92920; 93005; 93306; 93458; 96372; 96374; 96375; 99285; C1725; C1893; G0378; J1644; J1650; J1815; J1940; J2001; J2250; J2270; J2405; J2920; J3010; J7030; J7040; P9047; Q9966

== ENCOUNTER 2023-11-26 01:22 | Observation (INO) | payer OTHER ==
--- OUTSIDE RECORDS SUMMARY | 2023-11-26 01:25 | XMS REPORT | Continuity of Care Document ---
Author Name Unknown Address [address] [facility]. [address] [place] [address] [facility] Address [address] [facility] [address] [place] [address] Care Team Providers Care Roll Capper Name Role Phone Carmen Spencer Attending Clinician Unavailable Montez Jernigan Attending Clinician Unavailable Montez Jernigan Admitting Clinician Unavailable Payers Payer Name Policy Type Policy Number Effective Date Expirati on Date Source [facility] 6 [id number] 2019 00:00:00 [facility] Problems Condition Name Condition Details Condition Category Status Onset Date Resolution Date Last Treatment Date Treating Clinician Comments Source [id number] Chronic pain syndrome Problem [facility] [id number] Essential hypertensi on Problem [facility] [id number] Coronary stent patent Problem [facility] [id number] Coronary artery disease of [place] heart with stable angina pectoris, unspecifie d vessel or lesion type Problem [facility] [id number] Type 2 diabetes mellitus with hyperglyce solange, without long-term current use of insulin Problem [facility] [id number] Nicotine abuse Problem [facility] Allergies, Adverse Reactions, Alerts Allergy Name Allergy Type Status Severity Reaction(s) Onset Date Inactive Date Treating Clinician Comments Source No Known Allergie s DA Active U 03-18 00:00: 00 [facility] Social History Social Habit Start Date Stop Date Quantity Comments Source History of Tobacco Use Current Smoker [facility] Sex Assigned At [facility] Smoking Status Start Date Stop Date Source Current Smoker 2022-11-09 00:00:00 [facility] Medications Ordered Medication Name Filled Medication Name [...] height 2022-10-10 10:40:00 70 [in_i] [facility] weight 2022-10-10 10:40:00 198 [lb_av] [facility] temperature 2022-10-10 10:40:00 97.9 [degF] [facility] bmi 2022-10-10 10:40:00 28.41 kg/m2 [facility] oximetry 2022-10-10 10:40:00 98 % [facility] respiratory rate 2022-10-10 10:40:00 17 /min [facility] blood pressure systolic 2022-10-10 10:40:00 132 mm[Hg] [facility] blood pressure diastolic 2022-10-10 10:40:00 87 mm[Hg] [facility] Procedures Procedure Date / Time Performed Performing Clinicia n Source [id number] [id number] 2023-03-18 00:00:00 [facility] [id number] 2023-03-18 00:00:00 [facility] [id number] 2023-03-18 00:00:00 [facility] [id number] 2023-03-18 00:00:00 [facility] [id number] 2023-03-18 00:00:00 [facility] [id number] 2023-03-18 00:00:00 [facility] Encounters Start Date/Time End Date/Time Encounter Type Admission Type Attending Clinicians Care Facility Care Department Encounter ID Source 2022-11-07 07:49:00 Out[facility] [id number] [facility] 2022-10-17 15:16:02 Outpatient Carmen Spencer [facility] [id number] [facility] 2022-10-11 12:49:02 Outpatient Carmen Spencer [facility] [id number] [facility] 2022-10-10 10:34:05 Outpatient Carmen Spencer [facility] [id number] [facility] 2023-05-16 11:13:22 2023-05-16 11:13:22 Outpatient [facility] [id number] Jefferson Chen 2023-03-18 14:57:00 2023-03-20 16:25:00 Inpatient Montez Kay [facility] [id number] [facility] 2023-02-19 00:00:00 2023-02-19 00:00:00 (TEL) [facility] [id number] [facility] 2022-10-10 00:00:00 2022-10-10 00:00:00 OFFICE VISIT ESTAB PT LEVEL 4 [facility] [id number] [facility] Results Test Description Test Time Test Comments Results Result Co mments Source BASIC METABOLIC [id number] 07:35:00* Test Item Value Reference Range Interpretation [...] code = CA) 8.6 MG/DL 8.4-10.2 N [id number] 07:35:00* Test Item Value Reference Range Interpretation Comme nts MAGNESIUM (test code = MAG) 2.0 MG/DL 1.6-2.3 N GLUCOSE BEDSIDE [id number] 06:26:00* Test Item Value Reference Range Interpretation Comme nts GLUCOSE BEDSIDE TESTING (shanna t code = GLUBED) 187 MG/DL 60-99 H GLUCOSE BEDSIDE [id number] 04:13:00* Test Item Value Reference Range Interpretation Comme nts GLUCOSE BEDSIDE TESTING (shanna t code = GLUBED) 149 MG/DL 60-99 H GLUCOSE BEDSIDE [id number] 23:41:00* Test Item Value Reference Range Interpretation Comme nts GLUCOSE BEDSIDE TESTING (shanna t code = GLUBED) 162 MG/DL 60-99 H GLUCOSE BEDSIDE [id number] 21:11:00* Test Item Value Reference Range Interpretation Comme nts GLUCOSE BEDSIDE TESTING (shanna t code = GLUBED) 203 MG/DL 60-99 H GLUCOSE BEDSIDE [id number] 19:59:00* Test Item Value Reference Range Interpretation Comme nts GLUCOSE BEDSIDE TESTING (shanna t code = GLUBED) 219 MG/DL 60-99 H GLUCOSE BEDSIDE [id number] 19:59:00* Test Item Value Reference Range Interpretation Comme nts GLUCOSE BEDSIDE TESTING (shanna t code = GLUBED) 253 MG/DL 60-99 H GLUCOSE BEDSIDE [id number] 19:58:00* Test Item Value Reference Range Interpretation Comme nts GLUCOSE BEDSIDE TESTING (shanna t code = GLUBED) 247 MG/DL 60-99 H HEPATIC FUNCTION [id number] 11:51:00* Test Item Value Reference Range Interpretation [...] performed in our lab.Interference testing performed at [facility] determined thatEltrombopag does interfere with Vitros Total [...] : add on to blood in labURINALYSIS [id number] 04:46:00* Test Item Value Reference Range Interpretation [...] NEGATIVE SOURCE OF URINE: CLEAN CATCHGLYCOSYLATED HEMOGLOBIN [id number] 04:06:00* Test Item Value Reference Range Interpretation [...] MBG) 220 MG/DL 70-110 H BASIC METABOLIC [id number] 03:58:00* Test Item Value Reference Range Interpretation [...] code = CA) 8.5 MG/DL 8.4-10.2 N [id number] 03:58:00* Test Item Value Reference Range Interpretation Comme nts MAGNESIUM (test code = MAG) 2.3 MG/DL 1.6-2.3 N CBC W/AUTO [id number] 03:45:00* Test Item Value Reference Range Interpretation [...] code = NRBC#) 0.00 K/mm3 0.0-0.1 N [id number]-[id number] 01:08:00* Test Item Value Reference Range Interpretation Comme nts TROPONIN-I (test code = TROPI) 3.570 NG/ML 0.012-0.033 HH CALLED TO YESI DING A & READBACK ON 03/19/23 AT 0107 BY Barrett Wang JVGECBCW-[id number] 22:08:00* Test Item Value Reference Range Interpretation Comme nts TROPONIN-I (test code = TROPI) 3.700 NG/ML 0.012-0.033 HH CALLED TO VLADIMIR MG. & READBACK ON 03/18/23 AT 2202 BY Michael Umana T GLUCOSE BEDSIDE IFBZSRV7985-33-03 20:24:00* Test Item Value Reference Range Interpretation Comme nts GLUCOSE BEDSIDE TESTING (shanna t code = GLUBED) 211 MG/DL 60-99 H LIPOPROTEIN LDL [id number] 19:36:00* Test Item Value Reference Range Interpretation Comme nts LIPOPROTEIN LDL DIRECT (test code = LDLDIR) 112 mg/dL 100-129 N ========= R eference Interval: mg/dL mmol/L -----Optimal <100 <2.6Near/above optimal 100-129 2.6-3.3Borderline High 130-159 3.4-4.1High 160-189 4.1-4.9Very High >=190 >=4.9========= This LDL result is a direct measurement.======== = SMBKAMKB-A1218-03-28 19:36:00* Test Item Value Reference Range Interpretation Comme [facility] TROPONIN-I (test code = TROPI) 3.780 NG/ML 0.012-0.033 CALLED TO CHANTAL Burger& READBACK ON 03/18/23 AT 1849 BY Michael Umana XR CHEST [id number] 19:06:00 [facility] : 1970 Sex: M Patient Name: CHARAN RESTREPO Unit No: [id number] EXAMS: CPT CODE: [id number] XR CHEST 1V 92386 LOCATION: Q15 HISTORY: 52-year-old male, history of [...] ArleneRLA2 Orig Print D/T: S: 03/18/2023 (1908) [facility] NAME: CHARAN RESTREPO [address] PHYS: [place] [address] : 1970 AGE: 52 SEX: M [facility] [id number] LOC: Z.I13 A PHONE #: [phone] EXAM DATE: 03/18/2023 STATUS: ADM IN FAX #: [phone] RADIOLOGY NO: PAGE 1 Signed ReportNT PRO-BRAIN [...] other causes* of NT-proBNP elevation. GLYCOSYLATED HEMOGLOBIN [id number] 18:36:00* Test Item Value Reference Range Interpretation [...] CK) 274 UNITS/L 55-170 H COMPREHENSIVE METABOLIC [id number] 18:30:00* Test Item Value Reference Range Interpretation [...] and aplastic anemia) with specific assayson the PerceptiMeds 5600 of which Total Protein is one of thoseassays performed in our lab.Interference testing performed at [facility] determined thatEltrombopag does interfere with Vitros Total [...] code = ALKP) 59 UNITS/L 38-126 N LXPVMLGMQOB0403-98-79 18:30:00* Test Item Value Reference Range Interpretation Comme nts PHOSPHOROUS (test code = PHOS) 3.8 MG/DL 2.5-4.5 N BTQMGYEZF2021-42-30 18:30:00* Test Item Value Reference Range Interpretation Comme nts MAGNESIUM (test code = MAG) 2.3 MG/DL 1.6-2.3 N CBC W/O [id number] 18:09:00* Test Item Value Reference Range Interpretation [...] code = NRBC#) 0.00 K/mm3 0.0-0.1 N NBK-EBLLU1456-14-28 16:25:00* Test Item Value Reference Range Interpretation Comme nts ACT-ISTAT (test code = ACTI) 275 SEC 74-137 H LLF-SBURY3590-99-28 15:43:00* Test Item Value Reference Range Interpretation Comme nts ACT-ISTAT (test code = ACTI) 281 SEC 74-137 H Notes Date/Time Note Provider Source 2023-03-20 15:29:00 [id number] zdyvvH7jhOgago5cgseMKDH9lJZPu KrEbGRMZtNKrGrfc+3weCgnRySS2752-93-24S79:29:00 [facility] NoteREPORT#:[id number] REPORT STATUS: SignedDATE:03/20/23 TIME: 1529 PATIENT: CHARAN RESTREPO UNIT #: [id number]#: [id number] [facility] [birth year] AGE[facility] 52 SEX: M ATTEND: Montez Jernigan [facility] AUTHOR: Paco James MD * ALL edits [...] months for possible AICD at 1532 RPT #:[id number] OF REPORTPRProgress vfjn6800-32-55Y15:29:00Z.UCND66546112-6309HTCtbxr able for patient bncuIAQTWUPGXCZEGF9797-00-31B80:32:26 [facility] 2023-03-20 08:44:00 [id number]/Ts2M gYkcmXfoHM5V9iGmEIaKeq+ienKXM scYU/RJFnqsH8h5by4rECauOKfw0999-72-34H74:44:86837 0-0054 [place] [id number] PATIENT NAME: CHARAN RESTREPO ADMIT DATE: 03/18/23ACCOUNT NO: [id number] ROOM NO: [facility] AGE: 52 REPORT TYPE: ELECTROCARDIOGRAM SEX: M ADMITTING PHYSICIAN:Montez Jernigan MD ATTENDING PHYSICIAN:Montez Jernigan MD Order:[id number] Reason : CAD/SC/VT Test Date/Time Stamp:SunMar 20 2023 08:44:19Blood Pressure [...] SCHILLING at 1750 PATIENT NAME: CHARAN RESTREPO .[id number] AVAvailable for patient qjegPNEPKLCNZKABYZ6730-07-02U31:51:36 [facility] 2023-03-20 08:41:00 [id number] KxHfFr7gbgqBHV6c1TXMI6ElDgw48 Q2qrXdiLaTGNyX4uZ4UA6CFKIi63737-50-30M52:41:00 [facility] ([facility]Hospitalist Discharge SummaryREPORT#:[id number] REPORT STATUS: SignedDATE:03/20/23 TIME: 840 PATIENT: CHARAN RESTREPO UNIT #: [id number]#: [id number] [facility]: [birth year] AGE: 52 SEX: M ATTEND: Montez Jernigan [facility] AUTHOR: Davi Davison MD, MPH R2 * [...] s/p 2 stents, HFpEF borderline presented to [facility] chest pain. On 03/18 he had chest pain/dizziness, brief syncopal episode. He was brought to [facility] and was found to be in [facility] where he was given amiodarone and [...] of motionMusculoskeletal: normal inspection, painless range of motionNeuro/ELECTRONICS ASSEMBLER AND TESTER: alert, oriented X 3, CNII-XII intact, normal [...] to: Home/Self CareAdditional Discharge Routines: PCP Follow-Up, Field Merchandiser Follow-UpDiet: Resume Home Diet/FeedsActivity: Resume Normal Activity Quality: Discharge Current MedicationsCurrent medication review:I attest that the foregoing medication list in the medical record is true, accurate, and complete to the best of my knowledge. Montez Jernigan 03/20/23 1635:Med Rec Med RecDischarge meds:Start taking the following [...] He has asked for 1 week of Doyle, stating that he missed his pain management appointment on 03/19 however after reviewing his prescriptions on the PDMP he filled a prescription for 56 tablets (28 day prescription) on 02/26 and should not run out of medication until 03/26/23, so no further norco will be written at this time. He will follow up with PCP and cardiology as instructed. at 1016 at 5318 RPT #:[id number] OF REPORTDSDischarge sxgyitu3562-37-36F91:41:00Z.TCFU02327298-6626KSOs ailable for patient ptdxXREPPMEGHNJHYV4345-46-38Q21:17:22 [facility] 2023-03-19 14:01:00 [id number]+JHR3Vcy nPFoBZTky9t9b0Yv2Xr/IALaZRIrn ebRTg3N+1WQ2ZBan1I9dyhyklFj0263-29-50K16:01:00THI S REPORT HAS BEEN APPENDED [id number] [place] [address] PATIENT NAME: CHARAN RESTREPO ADMIT DATE: 03/18/23ACCOUNT NO: [id number] ROOM NO: Z.503 AGE: 52 REPORT TYPE: ECHOCARDIOGRAM SEX: M ADMITTING PHYSICIAN:Montez Jernigan MD ATTENDING PHYSICIAN:Montez Jernigan MD *[facility]*[address] [place], [place] [address]Phone Transthoracic Echocardiogram Patient: Royce Restrepotudy Date: 03/19/2023 BP: 134 / 73 Location: [facility]: [id number] : 1970 Age: 52 Height: 70 in / 177.8 cmAccession#: [id number] Gender: M Weight: 199.6 lb / 90.7 kgBMI/BSA: 28.7 kg/m 2 / 2.14 m 2 *Ordering Physician: * Marianna Schilling MD *Interpreting Physician: * Paco James MD*Cane Burner: * Gabby Crockett Indications: CAD / SC. Study data: Transthoracic echocardiogram. Procedure: Transthoracicechocardiography was performed. Images were obtained using a [employer] cardiacultrasound machine. Image quality was adequate. M-mode, [...] 1401 SECTION 2 ADDENDUM 1: 03/20/23 0752 [facility] *[facility]*[address] [place], [place] [address]Ycqnq Transthoracic Echocardiogram (Report amended 6359-84-16Y01:52:29) Patient: Adriel Restrepoy Date: 03/19/2023 BP: 134 / 73 Location: [facility]: [id number] : 1970 Age: 52 Height: 70 in / 177.8 cmAccession#: [id number] Gender: M Weight: 199.6 lb / 90.7 kgBMI/BSA: 28.7 kg/m 2 / 2.14 m 2 *Ordering Physician: * Marianna Schilling MD *Interpreting Physician: Marianna Soler MD*Cane Burner: Gabby Salamanca Indications: CAD / SC. Study data: Transthoracic echocardiogram. Procedure: Transthoracicechocardiography was performed. Images were obtained using a [employer] cardiacultrasound machine. Image quality was adequate. M-mode, [...] MD03/20/2023 07:52 PATIENT NAME: CHARAN RESTREPO :01:0 0Z.[id number] for patient exrbOQLFLKQZOLBVRA1747-71-44H37:02:20 [facility] 2023-03-19 12:44:00 [id number] sP951q6YgREYuWAlOhrB/1I+jl9DR IiIQ1Lmw6mEpbUEcxSW/fOHzRq51347-71-36U96:44:00 [facility] ([facility])Cardiology Progress NoteREPORT#:[id number] REPORT STATUS: SignedDATE:03/19/23 TIME: 1244 PATIENT: CHARAN RESTREPO UNIT #: [id number]#: [id number] ROOM[facility]BED: [email or web address]K26-FUYQ: [birth year] AGE: 52 SEX: M ATTEND: Montez Jernigan [facility] AUTHOR: Paco James MD * ALL edits [...] 36 95 03/19 0545 74 16 91 05 0533 71 14 126/68 91 90 05/ 0530 73 15 90 05/ 0515 76 16 89 03/19 0503 81 17 118/66 86 90 03/19 0500 76 18 91 / 0445 82 25 90 / 0437 94 39 127/71 92 95 03/19 [...] separate fromany billable procedures. at 1248 RPT #:[id number] OF REPORTPRProgress wueh0143-05-66O93:44:00Z.HLDM71448490-4734YRAfpcy able for patient ygleVGBBUWUCXSUDDE2224-64-92N24:48:38 [facility] 09:27:00 [id number] 9FuN3/c/LDswj9Y69jTHDo0vt2CHk FokEz0WN/pFTUsFU1temT5tIxiW3443-43-47W71:27:00 [facility] ([facility])Critical Care Progress NoteREPORT#:[id number] REPORT STATUS: SignedDATE:03/19/23 TIME: 926 PATIENT: CHARAN RESTREPO UNIT #: [id number]#: [id number] [facility] AGE: 52 SEX: M ATTEND: Montez Jernigan [facility] AUTHOR: Suzette Wang SUCKER MACHINE OPERATOR * ALL edits or amendments must be made on the electronic/computer document * Davonte Wang 03/19/23 0927:SubjectiveChief complaint:Chest PainComments:No acute events overnight. Hemodynamically stable. [...] no hematoma Musculoskeletal normal inspection, no muscle spasmNeuro/ELECTRONICS ASSEMBLER AND TESTER: alert, oriented X 3, no sensory deficitsPsychiatry: normal affect ResultsFindings/data:Laboratory Tests 03/19 03/19 03/18 03/18 03/18 0326 0325 1837 3 2022 Chemistry Sodium (137 - 145 [...] (Auto) (14 - 44 %) 8.0 L [place] % (Auto) (4 - 13 %) 5.3 Eos % (Auto) (0 - 6 %) 0.8 Baso % (Auto) (0 - 2 %) 0.5 Neut # (Auto) (2.0 - 7.6 K/mm3) 13.48 H 11.29 H Lymph # (Auto) (1.0 - 3.8 K/mm3) 1.28 2.18 [place] # (Auto) (0.1 - 0.8 K/mm3) 0.84 [...] pH (5.0 - 9.0) 5.0 Ur Specific [place] (1.003 - 1.030) 1.020 Urine Protein (NEGATIVE [...] dataRecent Impressions:RADIOLOGY - XR CHEST 1V 03/18 180 Report Impression - Status: SIGNED Entered: 03/18/20231908 IMPRESSION: Unremarkable portable examination of the chest.Impression By: ArleneRLA2 - Hima Jaime M.D. Results: labs reviewed, vital signs reviewed, current med profile rev'd Treatment Prophylaxis Treatment ProphylaxisOxygen: room airLines: peripheral Diagnosis, Assessment PlanFree text A P:52 year old male patient hx CAD s/p multiple stents, systolic heart failure transferred from [facility] with STEMI. STEMI: Coronary Artery Disease Presented [...] arrythmias DiabetesUncontrolled. Takes metformin and jardiance. 9.3 S3ILyqbfkk 200s, start lantus. Patietn educated on diabetes and need for insulin atthis pointWill consult residential plumber for DM education Tobacco AbuseSmokes 2 PPDCounseled [...] if needed at 1004 at 1306 RPT #:[id number] OF REPORTPRProgress sbap9569-58-29Q26:27:00Z.FXFP05767300-0016ANBkvtb able for patient pwuqQDTCAZZXPGHMYP3753-52-72K95:04:53 [facility] 2023-03-19 07:39:00 [id number] vwsek7qLIYMZoAGFIY795GKjXGYVN SQIjitbCbEkNvzssu/MNkwyS5M91660-32-03S36:39:00 [facility] ([facility])Hospitalist Progress NoteREPORT#:[id number] REPORT STATUS: SignedDATE:03/19/23 TIME: 0739 PATIENT: CHARAN RESTREPO UNIT #: [id number]#: [id number] [facility] VegasJ23-CBCN: 69 AGE: 52 SEX: M ATTEND: Montez Jernigan AUTHOR: Davi Davison MD, MPH R2 * ALL edits or amendments must be made on the electronic/computer document * Davi Davison 03/19/23 0739:SubjectiveChief complaint:CHEST PAINHPI:52 y/o M PMH DM2, HLD, CAD s/p 2 stents, HFpEF borderline, tobacco use, arthritis presented to [facility] for chest pain.NAEO. No arrhythmias overnight. [...] 91 05/28 2045 87 30 95 05/28 0 76 15 139/83 105 91 05/28 2029 79 12 152/84 110 94 03/18 2015 [...] of motionMusculoskeletal: normal inspection, painless range of motionNeuro/ELECTRONICS ASSEMBLER AND TESTER: alert, oriented X 3, CNII-XII intact, normal [...] s/p 2 stents, HFpEF borderline presented to [facility] chest pain. STEMI (ST elevation myocardial infarction) : Hypertension : HLD : CAD : HF : Hx stent03/18 AM - chest pain/dizziness, [facility] to [facility] Placed on amiodarone drip, given sync cardioversion which resolved issue. Transferred here per Dr. Schilling, found to have V1/V2 ST elevation, taken [facility]/ Dr. James - 4x stent placed. EF 20%.03/19 - titrating off nitro drip, restarting PO rx per cardiologyPlan:Cardio management per Dr. Mock: Nitro drip - titrate off today Restart B luís? - per cardiology ASA 81, ticagrelor 90 BID Atorvastatin 40 Morphine 4 IV q6 PRN - per Dr. Alvarez Home rx (deferred): Entresto 24-26 BID Bisoprolol/HCTZ 02/24.25 TW2Ybtlwnn A1c, is on jardiance unknown dose at homeSupposedly took metformin which "didn't work" in the aetwF6k 9.3MDSS from LDSS today Tobacco hx : Jhvqtmgi60+ pack-year smoking hxMild expiratory wheezing, possible COPD [...] nitroglycerine drip still which is being weaned. Immersion Metal Cleaner and cardiology are on board and weappreciate their recommendations and care. at 0743 at 1246 [facility] #:[id number] OF REPORTPRProgress pkth0564-68-58A78:39:00Z.MLHF92200197-4011NNXubsk able for patient wktfKIQNUPLUGLPJZG7406-38-03F60:44:10 [facility] 2023-03-19 05:44:00 [id number] xIS04q6wDST8QtRqDWBNM1zHJnUNi qXlwrK9iGKaVDjcYW3oeWjawkQ78403-11-32A09:44:30043 9[address] [place] [address] PATIENT NAME: CHARAN RESTREPO ADMIT DATE: 03/18/23ACCOUNT NO: [id number] ROOM NO: Z.I13 AGE: 52 REPORT TYPE: ELECTROCARDIOGRAM SEX: M ADMITTING PHYSICIAN:Montez Jernigan MD ATTENDING PHYSICIAN:Montez Jernigan MD Order:[id number] Reason : CAD/SC Test Date/Time Stamp:SunMar 19 2023 05:44:06Blood Pressure [...] SCHILLING at 1039 PATIENT NAME: CHARAN RESTREPO .[id number] AVAvailable for patient lyywDYBXNDEFFCRMCI3008-59-62B11:39:45 [facility] 2023-03-19 05:44:00 [id number] k9VfEisytHNYjoaFbrdOFNe+dWLXb VE73qOESkq2CVKmw1wiC3HplsjD0628-23-67Y47:44:52334 0-0053 [place] [address] PATIENT NAME: CHARAN RESTREPO ADMIT DATE: 03/18/23ACCOUNT NO: [id number] ROOM NO: Z.503 AGE: 52 REPORT TYPE: ELECTROCARDIOGRAM SEX: M ADMITTING PHYSICIAN:Montez Jernigan MD ATTENDING PHYSICIAN:Montez Jernigan MD Order:[id number] Reason : CAD/SC Test Date/Time Stamp:SunMar 19 2023 05:44:06Blood Pressure [...] SCHILLING at 1750 PATIENT NAME: CHARAN RESTREPO .[id number] AVAvailable for patient cqsuIPBNHNWGDASDGQ1063-80-68W73:50:56 [facility] 2023-03-18 17:45:00 [id number]+XBV/y Qr7mNyc1U2+8XcY0BgVVpxSEri4rN 7Edum0to7lQMJa01NW3TyhcgCrt5899-47-85X46:45:00 [facility] ([facility])Critical Care Consult NoteREPORT#:[id number] REPORT STATUS: SignedDATE:03/18/23 TIME: 1744 PATIENT: CHARAN RESTREPO UNIT #: [id number]#: [id number] ROOM[facility]BED: [email or web address]-QBOA: 69 AGE: 52 SEX: M ATTEND: Jesusita Osuna AUTHOR: Suzette Wang SUCKER MACHINE OPERATOR * ALL edits or amendments must be [...] EKG showed STEMI. Transferred emergently to our crime lab technician via life flight. Dr James [...] encouraged to have debrillator placed by his billing control clerk. Unable to recall names of home medications. 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 with STEMI. STEMI: Coronary Artery Disease Presented with chest pain in ventricular tachycardia s/p cardioversion. Repeat EKG showed STEMIArrived via life flight straight to crime lab technician. Dr James placed 4 stents to LADAspirin, Statin, Brilinta. Software Engineer Advisor would like to start beta luís tomorrowNitroglycerin [...] the patient. at 1808 at 1834 RPT #:[id number] OF REPORTWFAmroexyojowh3759-32-29I44:45:00Z.PDOC2 6662618-1024WYHigmfhbrd for patient kgmuYAZJSZKHYJOYNS2873-85-87T44:08:44 [facility] 2023-03-18 17:40:00 [id number] 3NMSiALJRAGYn5MqyujS4qbyu8Au5 fe2dWasYIpMgo5Q1BFwPg0ccqoj7924-20-72L22:40:49415 [address] [place] [address] PATIENT NAME: CHARAN RESTREPO ADMIT DATE: 03/18/23ACCOUNT NO: [id number] ROOM NO: [facility] [[email or web address]] AGE: 52 REPORT TYPE: ELECTROCARDIOGRAM SEX: M ADMITTING PHYSICIAN:Jesusita Osuna MD ATTENDING PHYSICIAN:Jesusita Osuna MD Order:[id number] Reason : VT Test Date/Time Stamp:SunMar 18 [...] SCHILLING at 2002 PATIENT NAME: CHARAN RESTREPO .[id number] AVAvailable for patient etbdSASGMTDDBUDUKF1985-08-57M49:03:30 [facility] 2023-03-18 17:40:00 [id number] KnHLy+c5gRqtlEGlAq5poJ649QbFr jTPg6iAEb/bSWWR0NGaDFtCStyM4410-09-27V07:40:95486 0-0052 [place] [address] PATIENT NAME: CHARAN RESTREPO ADMIT DATE: 03/18/23ACCOUNT NO: [id number] ROOM NO: [facility] AGE: 52 REPORT TYPE: ELECTROCARDIOGRAM SEX: M ADMITTING PHYSICIAN:Montez Jernigan MD ATTENDING PHYSICIAN:Montez Jernigan MD Order:[id number] Reason : VT Test Date/Time Stamp:SunMar 18 [...] SCHILLING at 1750 PATIENT NAME: CHARAN RESTREPO .[id number] AVAvailable for patient lvgnOHJMLNOLUAPSKR1167-29-94M95:50:36 [facility] 2023-03-18 17:25:00 [id number] [id number]/+kBS8gfeRcTUw 1BMAqUULmfSxn5XZVC7El5rN4hW6066-23-40M68:25:00 [facility] ([facility])Hospitalist History PhysicalREPORT#:[id number] REPORT STATUS: SignedDATE:03/18/23 TIME: 1724 PATIENT: CHARAN RESTREPO UNIT #: [id number]#: [id number] [facility]GE[facility] 52 SEX: M ATTEND: Montez Jernigan [facility] AUTHOR: Davi Davison MD, MPH R2 * ALL edits or amendments must be made on the electronic/computer document * Davi Davison 03/18/231724:History of Present Illness HPIChief complaint:CHEST PAINPCP:PCP: Jesusita Osuna MD HPI:52 y/o M PMH DM2, HLD, CAD s/p 2 stents, HFpEF borderline, tobacco use, arthritis presented to [facility] for chest pain.Started feeling lightheaded, having [...] w/ STEMI. He was emergently taken for [facility] w/ Dr. 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 STEMI (ST elevation myocardial infarction) : Hypertension : HLD : CAD : HF : Hx stent03/18 AM - chest pain/dizziness, found to be in vtach at [facility]. Placed on amiodarone drip, given sync cardioversion which resolved issue. Transferred here per Dr. Schilling, found to have V1/[facility]2 [facility] 4x stent placed. EF 20%.Per Dr. James - continue nitro drip. Defer restart home BP rx Given tirofiban in [facility], ASA, ticagrelor Avoid heparin products at this timePlan:Cardio management per Dr. Mock: Nitro drip ASA 81, ticagrelor 90 BID Atorvastatin 40 Morphine 2 IV q6 - consider d/c after 03/20 or Home rx (deferred): Entresto 24-26 BID Bisoprolol/HCTZ 02/24.25 ID6Fnlgjlh A1c, is on jardiance unknown dose at joopY5h pending, LDSS Tobacco hx : Gagpyyfq20+ pack-year smoking hxMild expiratory wheezing, possible COPD [...] knowledge. Jesusita Osuna 03/18/23 1851:Attestations Teaching Physician Zbpwjztwdvc7si visit w/ resident:I was present with the resident during the history and exam. I discussed the case with the resident and . . . agree with the findings and plan as documented in the resident's note. agree with the findings and plan as documented in the resident's note EXCEPT: at 1819 at 1506 RPT #:[id number] OF REPORTHPHistory and physical femarmfosbk5683-80-41E37:25:00Z.[id number] AVAvailable for patient nsjuBPGEKFNSXBAALF9909-00-14J47:20:05 [facility] 2023-03-18 17:24:00 [id number] pPndPZy8FZhZYFoClG68Thcfst0R8 YYg1jxojjqoGyIChXTcfRXJuKqC5491-76-49M89:24:99604 8-0023 [place] [id number] PATIENT NAME: CHARAN RESTREPO ADMIT DATE: 03/18/23ACCOUNT NO: [id number] ROOM NO: Z.503 AGE: 52 REPORT TYPE: [...] of the LAD, [facility] [place] [facility] [place]. He then had VT had to be shocked and had ST elevations in V1, V2, V3. He was life-flighted to [facility] where we emergently brought into the crime lab technician. SEDATION USED: Moderate sedation. MANAGER PERSONAL: Paco James MD PROCEDURAL DETAILS: The patient was brought to the crime lab technician in an emergent fashion. He was draped in typical sterile fashion. I obtained right femoral arterial access under ultrasound guidance and inserted a 6-Djiboutian sheath using amicropuncture kit. At this point, [...] heparin intra-arterial. I took a EBU 4 6-Djiboutian guide up to the aortic root over [...] I then selected a 2.75 x 15 [place] Garfield stent and positioned in the distal LAD overlapping with the old stents and deployed it to PATIENT NAME: CHARAN RESTREPO nominal pressure. I then pulled the stent delivery balloon back and expanded it. I then reinflated the balloon to high pressure. I then removed that stent delivery system and brought up to 3.5 x 22 mm Garfield stent and positioned in the proximal LAD [...] we positioned a 2.75 x 12 mm Valerio Garfield stent in the mid LAD and deployed [...] then positioned a2.25 x 15 mm Valerio Garfield stent distally and deployed it to slightly [...] 12 mm and 2.25 x 15 mm Garfield stent, there was 0% stenosis in ARELY 3 flow and no evidence of wire perforation or guide dissection. ESTIMATED BLOOD LOSS: There was 20 mL of blood loss. PATIENT NAME: CHARAN RESTREPO COMPLICATIONS: No complications. RECOMMENDATIONS: Recommend 4-hour of bed rest. Continue aspirin and mg b.i.d. Wean nitro drip tomorrow. Would hold off on diuretics until tomorrow unless the patient starts shortness of breath, in which case I would give IV Lasix and hold off on beta luís until tomorrow. Dictated By: Paco James MD Date Dictated: 03/18/2023 17:24:48Date Transcribed: 03/18/2023 22:18:00SYED/Yadira #: [id number] ID: [id number] by Paco James MD On 03/20/2023 04:12:22 PM at 0412 PATIENT NAME: CHARAN RESTREPO [id number]:18:00Z.[id number] ble for patient dyepKSIXTDUEZYZIRF5088-55-99J03:13:05 [facility] 2023-03-18 15:02:00 [id number] UmVZ6zgHLA4rgDtw36Wy0OH7bsIh5 ALNY07B03mzxyIf6E8kSSdvlPGz6029-18-98Q97:02:00 [facility] CenterCardiology ConsultationREPORT#:[id number] REPORT STATUS: SignedDATE:03/18/23 TIME: 1502 PATIENT: CHARAN RESTREPO UNIT #: [id number]#: [id number] ROOM[facility]BED: [email or web address]P23-XOPZ: [birth year] AGE: 52 SEX: M ATTEND: Jesusita Osuna [facility] AUTHOR: Paco James MD * ALL edits [...] emergent LHC at 1503 Addendum 1: 03/18/23 1809 by [...] separate fromany billable procedures. at 1810 RPT #:[id number] OF REPORTKUZsjodpfninnp7995-28-00I24:02:00Z.PDOC2 [id number] for patient hesiRCRKBVJPUTQKPQ9292-78-92T39:03:47 [facility]
[2023-11-26] MEDS ORDERED: MORPHINE 4 MG/ML SYR ONE (01:37)
[2023-11-26] MEDS ORDERED: ASPIRIN 81 MG CHEWABLE TABLET ONE (01:37)
[2023-11-26] MEDS ORDERED: ONDANSETRON 4 MG/2 ML VIAL ONE (01:37)
[2023-11-26] MEDS ORDERED: LORAZEPAM 1 MG TABLET ONE (01:37)
[2023-11-26] MEDS ORDERED: NA CHLORIDE 0.9% 1,000 ML ONE (01:38)
[2023-11-26 02:07] LABS: Protime INR 1.1
[2023-11-26 02:08] LABS: Absolute Lymphocytes (CBC) 1.7 K/uL (0.7-4.9); Hematocrit 50.5 % (39.6-49.0); Lymphocytes % 21.5 % (15.3-44.8); MCV 84.4 fL (80-100); MPV 8.5 fL (7.6-11.3); Platelets 194 thou/uL (152-406); RBC Red Blood Cell Count 5.99 M/uL (4.33-5.43)
[2023-11-26 02:20] LABS: Albumin 3.4 g/dL (3.4-5.0); Bilirubin Direct 0.2 mg/dL (0-0.2); Bilirubin Indirect, Calculated 0.5 mg/dL (0.2-0.8); Bilirubin Total 0.7 mg/dL (0.2-1.0); Potassium 3.6 mEq/L (3.5-5.1); Protein, Total 7.1 g/dL (6.4-8.2); Troponin High Sensitivity 15.3 pg/mL (<58.9)
[2023-11-26 02:22] LABS: SARS-CoV-2 Antigen Rapid Res Negative (Negative)
[2023-11-26] MEDS ORDERED: ONDANSETRON 4 MG/2 ML VIAL IV PRN (04:10)
[2023-11-26] MEDS ORDERED: ACETAMINOPHEN 325 MG TABLET PO PRN (04:10)
[2023-11-26] MEDS ORDERED: MAGNESIUM HYDROXIDE 8% 30 ML PO PRN (04:10)
--- NOTE | 2023-11-26 04:13 | ER ---
Nurse's Notes [facility] Name: Charan Restrepo Jr Age: 53 yrs Sex: Male : 1970 Arrival Date: 11/26/2023 Time: : Bed 13 Private MD: Diagnosis: Unstable angina Presentation: 11/26 01:29 Chief complaint: Patient states: I am having chest pain that started about 8pm. It jb4 started off like a pressure pain and now it is a sharp stabbing pain on top of it. It radiates down my left arm and I am feeling dizzy. Coronavirus screen: At this time, the client does not indicate any symptoms associated with coronavirus-19. Ebola Screen: No symptoms or risks identified at this time. Initial Sepsis Screen: Does the patient meet any 2 criteria? No. Patient's initial sepsis screen is negative. Does the patient have a suspected source of infection? No. Patient's initial sepsis screen is negative. Risk Assessment: Do you want to hurt yourself or someone else? Patient reports no desire to harm self or others. Onset of symptoms was November 26, 2023. Transition of care: patient was not received from another setting of care. 01:29 Method Of Arrival: Wheelchair jb4 01:29 Acuity: MARTY 2 jb4 Historical: - Allergies: :31 No Known Allergies; jb4 - PMHx: :31 heart attack; diabetes mellitus; Hyperlipidemia; Hypertension; jb4 - PSHx: :31 6 heart stents; bone graft (t ); Cholecystectomy; jb4 - Immunization history:: Adult Immunizations not up to date. - Social history:: Smoking status: Patient reports the use of cigarette tobacco products, smokes one pack cigarettes per day. Patient uses alcohol, occasionally. - Family history:: not pertinent. Screenin:12 [facility] ED Fall Risk Assessment (Adult) History of falling in the last 3 months, rv including since admission No falls in past 3 months (0 pts) Score/Fall Risk Level 0 - 2 = Low Risk Oriented to surroundings, Maintained a safe environment, Educated pt \T\ family on fall prevention, incl call for assistance when getting out of bed, Assessed \T\ reinforced patient's understanding of fall precautions. Abuse screen: Denies threats or abuse. Denies injuries from another. Nutritional screening: No deficits noted. Tuberculosis screening: No symptoms or risk factors identified. Assessment: 02:12 General: Appears in no apparent distress. Behavior is calm, cooperative. Pain: rv Complains of pain in chest. Neuro: Level of Consciousness is awake, alert, obeys commands, Oriented to person, place, time, situation. Cardiovascular: Capillary refill < 3 seconds Patient's skin is warm and dry. Respiratory: Airway is patent Respiratory effort is even, unlabored. GI: No signs and/or symptoms were reported involving the gastrointestinal system. : No signs and/or symptoms were reported regarding the genitourinary system. Derm: Skin is intact. Vital Signs: 01:29 BP 145 / 87; Pulse 87; Resp 20; Temp 98.5; Pulse Ox 100% on R/A; Weight 83.91 kg (R); jb4 Height 5 ft. 10 in. (R); Pain 10/10; 04:18 BP 112 / 63; Pulse 62; Resp 16; Pulse Ox 99% ; rv 01:29 Body Mass Index 26.54 (83.91 kg, 177.8 cm) jb4 01:29 Pain Scale: Adult jb4 Michelle Coma Score: 04:09 Eye Response: spontaneous(4). Motor Response: obeys commands(6). Verbal Response: sp4 oriented(5). Total: 15. ED Course: 01:28 Patient arrived in ED. jb4 01:31 Triage completed. jb4 01:31 Arm band placed on right wrist. jb4 01:32 Kai Fuentes MD is Attending Physician. sp4 01:34 Grant Cameron RN is Primary Nurse. rv 01:49 Inserted saline lock: 20 gauge in right forearm, using aseptic technique. Blood oe collected. 01:49 Troponin HS Sent. oe 01:49 PT-INR Sent. oe 01:50 NT PRO-BNP Sent. oe 01:50 Magnesium Sent. oe 01:50 LFT's Sent. oe 01:50 CBC with Diff Sent. oe 01:50 Basic Metabolic Panel Sent. oe 01:50 Influenza Screen (a \T\ B) Sent. oe 01:50 SARS RAPID Sent. oe 02:12 Patient has correct armband on for positive identification. Client placed on continuous rv cardiac and pulse oximetry monitoring. NIBP monitoring applied. marine habitat resource specialist on. 02:17 XRAY Chest (1 view) In Process Unspecified. EDMS 04:12 Bill Crooks MD is Hospitalizing Provider. sp4 05:20 No provider procedures requiring assistance completed. Patient admitted, IV remains in rv place. 12:54 Provided Education on: admission. cp4 Administered Medications: 02:08 Drug: morphine IVP or IV 4 mg IVP once over 4 mins Route: IVP; Infused Over: 4 mins; rv Site: right forearm; 02:58 Follow up: Response: No adverse reaction rv 02:08 Drug: LORazepam PO 1 mg PO once Route: PO; rv 02:58 Follow up: Response: No adverse reaction rv 02:08 Drug: Ondansetron IVP 4 mg IVP once; over 2 minutes Route: IVP; Site: right forearm; rv 02:58 Follow up: Response: No adverse reaction rv 02:08 Drug: Aspirin PO Chewable Tablet 324 mg PO once; 81 mg tablets x 4 Route: PO; rv 02:58 Follow up: Response: No adverse reaction rv 04:22 Follow up: Response: No adverse reaction rv 02:08 Drug: NS 0.9% IV 1000 ml IV at 125 ml/hr continuous Route: IV; Rate: 125 ml/hr; Site: rv right forearm; 02:57 Follow up: IV Status: Completed infusion; IV Intake: 1000ml rv 04:22 Follow up: IV Status: Infusion continued upon admission rv 04:27 Drug: Enoxaparin Sub-Q 90 mg Sub-Q once Route: Sub-Q; Site: abdomen; rv Medication: 02:12 VIS not applicable for this client. rv Intake: 02:57 IV: 1000ml; Total: 1000ml. rv Outcome: 04:13 Decision to Hospitalize by Provider. sp4 05:20 Admitted to ER Hold. Please see [facility] for further documentation. rv 05:20 Condition: good 05:20 Instructed on the need for admit, 12:54 Admitted to Tele accompanied by omar, Report called to Donna tafoya 12:58 Patient left the ED. cp4 Signatures: Dispatcher [employer] EDMS Huan Esquivel RN RN jb4 Tc Ibarra Ronaldo, RN RN rv Potepalov, Sergey, MD MD sp4 Kimberly Galeana
--- NOTE | 2023-11-26 04:13 | EDPHYS ---
Physician Documentation [facility] Name: Charan Restrepo Jr Age: 53 yrs Sex: Male : 1970 Arrival Date: 11/26/2023 Time: 01:22 Bed 13 Private MD: ED Physician Kai Fuentes HPI: 11/26 01:32 This 53 yrs old Male presents to ER via Wheelchair with complaints of Chest sp4 pain onset yesterday. 04:06 53-year-old male with history of extensive coronary artery disease presents for acute sp4 onset midsternal chest pain associated with shortness of breath. Patient was admitted here several days ago and had a left heart cath. . Old records reviewed --Findings: Date of Procedure: 11/06/2023 1. Left main; large and normal. 2. LAD; proximal 80% stenosis and then there is a stent that has diffuse 40% iSR and then at the diagonal 2 takeoff, it still totally occluded and there was some reconstitution of the distal LAD coming from some other vessels, probably RCA or left circumflex, it is not very clear. 3. Left circumflex. It is large size and has large size OM that has proximal and mid 40% stenosis. 4. RCA; large and dominant, proximal 40%, mid to distal 40% stenosis. 5. Elevated LVEDP at 36 mmHg. Conclusion: 1. Severe LAD stenosis, pdm-pt-cqjzsm LAD is ARCADE ATTENDANT 100%, failed attempt of PCI, 2. Moderate coronary artery disease elsewhere. 3. Severely elevated LVEDP. Recommendation: IV diuretics and obtain an echo and if his ejection fraction is normal or if he has viability, he could benefit from single-vessel CABG as an outpatient.. Assessment And Recommendations: 1. Unstable angina, status post coronary angiogram and he has totally occluded mid LAD and attempt to do PCI and did not work. plan for optimizing medical therapy for now, mainly aspirin. Discontinue Plavix and obtain an echo. His ejection fraction is normal or if there is a good viability in the myocardium, then single-vessel bypass is the recommendation. 2. Elevated LVEDP and significant heart failure. Recommend IV diuretics with Lasix and obtain echo. 3. Hypertension. Blood pressure is controlled. SR/MODL Voice ID: [id number] . Historical: - Allergies: No Known Allergies; jb4 - PMHx: heart attack; diabetes mellitus; Hyperlipidemia; Hypertension; jb4 - PSHx: :31 6 heart stents; bone graft (t ); Cholecystectomy; jb4 - Immunization history:: Adult Immunizations not up to date. - Social history:: Smoking status: Patient reports the use of cigarette tobacco products, smokes one pack cigarettes per day. Patient uses alcohol, occasionally. - Family history:: not pertinent. ROS: 04:09 Constitutional: Negative for fever, chills, and weight loss, positive chest pain and sp4 shortness of breath 04:09 All other systems are negative, Exam: :33 ECG was reviewed by the Attending Physician. EKG 0 1:29, normal sinus rhythm with a sp4 rate of 80, left axis deviation, no ST elevation or depression 04:09 Constitutional: This is a well developed, well nourished patient who is awake, alert, sp4 and in no acute distress. Head/Face: Normocephalic, atraumatic. Eyes: Pupils equal round and reactive to light, extra-ocular motions intact. Lids and lashes normal. Conjunctiva and sclera are not injected. Cornea within normal limits. Periorbital areas with no swelling, redness, or edema. ENT: Nares patent. No nasal discharge, no septal abnormalities noted. Tympanic membranes are normal and external auditory canals are clear. Oropharynx with no redness, swelling, or masses, exudates, or evidence of obstruction, uvula midline. Mucous membranes moist. Hard of hearing Neck: Trachea midline, no thyromegaly or masses palpated, and no cervical lymphadenopathy. Supple, full range of motion without nuchal rigidity, or vertebral point tenderness. Chest/axilla: Normal chest wall appearance and motion. Nontender with no deformity. No lesions are appreciated. Cardiovascular: Regular rate and rhythm with a normal S1 and S2. No gallops, murmurs, or rubs. Normal PMI, no JVD. No pulse deficits. Respiratory: Lungs have equal breath sounds bilaterally, clear to auscultation and percussion. No rales, rhonchi or wheezes noted. No increased work of breathing, no retractions or nasal flaring. Abdomen/GI: Soft, non-tender, with normal bowel sounds. No distension or tympany. No guarding or rebound. No evidence of tenderness throughout. Back: No spinal tenderness. No costovertebral tenderness. Male : Normal genitalia with no discharge or lesions. Skin: Warm, dry with normal turgor. Normal color with no rashes, no lesions, and no evidence of cellulitis. MS/ Extremity: Pulses equal, no cyanosis. Neurovascular intact. Full, normal range of motion. Neuro: Awake and alert, GCS 15, oriented to person, place, time, and situation. Cranial nerves II-XII grossly intact. Motor strength 5/5 in all extremities. Sensory grossly intact. Psych: Awake, alert, with orientation to person, place and time. Behavior, mood, and affect are within normal limits Vital Signs: 01:29 BP 145 / 87; Pulse 87; Resp 20; Temp 98.5; Pulse Ox 100% on R/A; Weight 83.91 kg (R); jb4 Height 5 ft. 10 in. (R); Pain 10/10; 04:18 BP 112 / 63; Pulse 62; Resp 16; Pulse Ox 99% ; rv 01:29 Body Mass Index 26.54 (83.91 kg, 177.8 cm) jb4 01:29 Pain Scale: Adult jb4 Michelle Coma Score: 04:09 Eye Response: spontaneous(4). Motor Response: obeys commands(6). Verbal Response: sp4 oriented(5). Total: 15. MDM: 01:43 Patient medically screened. sp4 03:26 ED course: CLINICAL HISTORY: CHEST PAIN COMPARISON: 11/05/2023. TECHNIQUE: XR CHEST 1 sp4 VIEW 11/26/2023 1:33 AM [facility]OOK[facility] FINDINGS: The heart is mildly enlarged. Lungs are clear without consolidation, atelectasis, mass or edema. There is no pleural effusion. There is no pneumothorax. There are no acute osseous findings. IMPRESSION: Clear lungs. Electronically signed by: Sam Howell MD 11/26/2023 02:26 AM. 04:09 Differential Diagnosis altered mental status, sepsis, flu, Unstable angina. Data sp4 reviewed: vital signs, nurses notes, lab test result(s), EKG, radiologic studies, plain films. 04:11 Consideration of Admission/Observation Patient was admitted/placed on observation. sp4 Escalation of care including admission/observation considered. Management of patient was discussed with the following: Hospitalist: Daksha MEHTA . ED course: Patient is medically stable for admission and observation. Past medical history suggest moderate to severe coronary artery disease with 100% occlusion of LAD. Will plan to monitor in hospital. 11/26 01:33 Order name: Basic Metabolic Panel; Complete Time: 03:18 sp4 11/26 01:33 Order name: CBC with Diff; Complete Time: 03:18 sp4 11/26 01:33 Order name: LFT's; Complete Time: 03:18 sp4 11/26 01:33 Order name: Magnesium; Complete Time: 03:18 sp4 11/26 01:33 Order name: NT PRO-BNP; Complete Time: 03:18 sp4 11/26 01:33 Order name: PT-INR; Complete Time: 03:18 sp4 11/26 01:33 Order name: Troponin HS; Complete Time: 03:18 sp4 11/26 01:33 Order name: Influenza Screen (a \T\ B); Complete Time: 04:41 sp4 11/26 01:33 Order name: SARS RAPID; Complete Time: 03:18 sp4 11/26 03:26 Order name: Troponin High Sensitivity; Complete Time: 04:41 sp4 11/26 04:15 Order name: Urinalysis w/ reflexes EDMS 11/26 04:15 Order name: Lipid Profile EDMS 11/26 04:15 Order name: Lipid Profile EDMS 11/26 04:15 Order name: Lipid Profile EDMS 11/26 04:15 Order name: Troponin High Sensitivity EDMS 11/26 04:15 Order name: Troponin High Sensitivity EDMS 11/26 04:15 Order name: Troponin High Sensitivity EDMS 11/26 04:15 Order name: Troponin High Sensitivity EDMS 11/26 07:27 Order name: Glucose, Ancillary Testing EDMS 11/26 01:33 Order name: XRAY Chest (1 view) sp4 11/26 04:16 Order name: Echo with Doppler EDMS 11/26 01:33 Order name: EKG; Complete Time: 01:33 sp4 11/26 01:33 Order name: Cardiac monitoring; Complete Time: 01:34 sp4 11/26 01:33 Order name: EKG - Nurse/Tech; Complete Time: 01:34 sp4 11/26 01:33 Order name: IV Saline Lock; Complete Time: 01:34 sp4 11/26 01:33 Order name: Labs collected and sent; Complete Time: sp4 11/26 01:33 Order name: O2 Per Protocol; Complete Time: sp4 11/26 01:33 Order name: O2 Sat Monitoring; Complete Time: sp4 EC:33 Rate is 80 beats/min. Rhythm is regular, Normal Sinus Rhythm. Left axis deviation sp4 noted. ME interval is normal. QRS interval is normal. QT interval is normal. No Q waves. T waves are Normal. No ST changes noted. Clinical impression: No evidence of ischemia. Interpreted by me. Reviewed by me. Administered Medications: 02:08 Drug: morphine IVP or IV 4 mg IVP once over 4 mins Route: IVP; Infused Over: 4 mins; rv Site: right forearm; 02:58 Follow up: Response: No adverse reaction rv 02:08 Drug: LORazepam PO 1 mg PO once Route: PO; rv 02:58 Follow up: Response: No adverse reaction rv 02:08 Drug: Ondansetron IVP 4 mg IVP once; over 2 minutes Route: IVP; Site: right forearm; rv 02:58 Follow up: Response: No adverse reaction rv 02:08 Drug: Aspirin PO Chewable Tablet 324 mg PO once; 81 mg tablets x 4 Route: PO; rv 02:58 Follow up: Response: No adverse reaction rv 04:22 Follow up: Response: No adverse reaction rv 02:08 Drug: NS 0.9% IV 1000 ml IV at 125 ml/hr continuous Route: IV; Rate: 125 ml/hr; Site: rv right forearm; 02:57 Follow up: IV Status: Completed infusion; IV Intake: 1000ml rv 04:22 Follow up: IV Status: Infusion continued upon admission rv 04:27 Drug: Enoxaparin Sub-Q 90 mg Sub-Q once Route: Sub-Q; Site: abdomen; rv Disposition Summary: 11/26/23 04:13 Hospitalization Ordered Notes: Hospitalization Status: Observation sp4 Provider: Bill Crooks Condition: Stable sp4 Problem: new sp4 Symptoms: have improved sp4 Bed/Room Type: Standard sp4 Location: Telemetry/MedSurg (observation)(11/26/23 12:40) Room Assignment: 412(11/26/23 12:40) bd Diagnosis - Unstable angina sp4 Forms: - Medication Reconciliation Form sp4 - SBAR form sp4 - Leadership Thank You Letter sp4 Signatures: Dispatcher [employer] EDEmma Garzon James RN RN jb4 Grant Cameron RN RN Kai Bland MD MD sp4 Lia Collins pm6 Corrections: (The following items were deleted from the chart) 04: 04:13 Telemetry/MedSurg (observation) sp4 pm6 04:27 04:13 sp4 pm6 12:40 04:27 [facility] ER HOLD pm6 bd 12:40 04:27 ERHOLD- pm6 bd
--- NOTE | 2023-11-26 04:15 | P.HP ---
Certification for Inpatient Patient admitted to: Observation With expected LOS: <2 Midnights Practitioner: I am a practitioner with admitting privileges, knowledge of patient current condition, hospital course, and medical plan of care. Services: Services provided to patient in accordance with Admission requirements found in Title 42 Section 412.3 of the Code of Federal Regulations Patient History Date of Service: 11/26/23 Reason for admission: Chest pain. History of Present Illness: 53-year-old male patient with a medical history significant for diabetes type 2, hypertension, hyperlipidemia, coronary artery disease who was evaluated for episode of chest pain. He was recently evaluated at the hospital in the month of October 2023 and at that time he had a left heart cath that revealed in-stent thrombosis of 4 prior placed stents. He was referred to another specialist for proper care however he could not get to have a specialist evaluation prior to this encounter. He continues to have chest pain so he decided to come into the ED. He was admitted for management of his chest pain. No report of palpitations, shortness of breath, fever, chills, rigor, cough productive of sputum given. Allergies No Known Drug Allergies Allergy (Verified 06/21/17 20:11) Unknown Home Medications: Aspirin [Aspirin EC 81 MG] 81 mg PO SEECOM 11/05/23 Hydrocodone 10/APAP 325 [[place] 10/325*] 1 tab PO BID PRN 11/05/23 Sacubitril/Valsartan [Entresto 24 mg-26 mg Tablet] 1 each PO DAILY 11/05/23 Atorvastatin Calcium [Lipitor] 40 mg PO BEDTIME #30 tab 11/06/23 Clopidogrel Bisulfate [Plavix*] 75 mg PO DAILY #30 tab 11/06/23 Metoprolol Tartrate [Lopressor*] 25 mg PO BID 6AM 6PM #60 tab 11/06/23 - Past Medical/Surgical History Diabetic: Yes -: mycardial infarction x3 -: HTN -: kidney stones -: CAD -: HLD -: cholecystectomy -: left leg fixator -: right knee sx -: left elbow sx -: cardiac cath 3 w/ stent x2 over 5 years ago; pt w/ 4 stents in April -: bone graft -: right femur sx - Family History Father -: Heart disease, Cancer - Social History Alcohol use: Yes CD- Drugs: No Caffeine use: Yes Review of Systems General: Unremarkable Eyes: Unremarkable ENT: Unremarkable Respiratory: Unremarkable Cardiovascular: Chest Pain Gastrointestinal: Unremarkable Genitourinary: Unremarkable Musculoskeletal: Unremarkable Integumentary: Unremarkable Neurological: Unremarkable Lymphatics: Unremarkable Physical Examination - Physical Exam General: Alert, Oriented x3 HEENT: Atraumatic Neck: Supple Respiratory: Normal air movement Cardiovascular: Regular rate/rhythm, Normal S1 S2 Gastrointestinal: Soft and benign Musculoskeletal: No swelling Neurological: Normal speech - Studies Laboratory Data (last 24 hrs) 11/26/23 11/26/23 11/26/23 01:42 01:42 01:42 WBC 8.10 Hgb 17.3 Hct 50.5 H Plt Count 194 PT 12.1 INR 1.10 Sodium 135 L Potassium 3.6 BUN 14 Creatinine 0.91 Glucose 238 H Magnesium 2.0 Total Bilirubin 0.7 AST 9 L ALT 23 Alkaline Phosphatase 78 Microbiology Data (last 24 hrs): 11/26/23 01:44 Nasopharnyx Influenza Type A Antigen Screen - Final 11/26/23 01:44 Nasopharnyx Influenza Type B Antigen Screen - Final Assessment and Plan - Plan Chest pain: Patient has significant workup and has in-stent thrombosis of prior placed stent. Continues to have discomfort. Morphine to be used for mild pain management. Cardiology consult placed for further management recommendation. Patient recently had left heart cath with above finding however could not connect with referral to specialist for appropriate care. Diabetes type 2: Will monitor blood sugar ACHS and continue sliding scale insulin for glucose control. Continue carb restricted diet. Hypertension: We will monitor vital signs per unit protocol and continue outpatient antihypertensive medications. Hyperlipidemia: We will continue statin therapy. Prophylaxis: Lovenox for DVT prophylaxis. CODE STATUS: Full code. Disposition: We will treat is chest pain, and he will be evaluated by cardiology for further management recommendation for his coronary artery disease. - Advance Directives Does patient have a Living Will: No Does patient have a Durable POA for Healthcare: No
[2023-11-26] MEDS ORDERED: ENOXAPARIN 100 MG/ML SYR SQ ONE (04:25)
[2023-11-26] MEDS: NA CHLORIDE 0.9% 1,000 ML IV SCH ×2 (05:00→17:30)
[2023-11-26 05:38] VITALS: O2SAT 99; BMI 26.5
[2023-11-26] MEDS: METOPROLOL TAR 25 MG TAB PO SCH ×2 (06:00→17:29)
[2023-11-26] MEDS: INSULIN REGULAR (HUMAN) 100 UNIT/ML SQ SCH ×4 (07:30→20:32)
[2023-11-26] MEDS: MORPHINE 2 MG/ML SYR IV PRN ×4 (08:05→20:56)
[2023-11-26] MEDS ORDERED: MORPHINE 2 MG/ML SYR ONE ×2 (08:08→12:33)
[2023-11-26] MEDS ORDERED: METOPROLOL TAR 50 MG TAB ONE (08:08)
[2023-11-26] MEDS ORDERED: ENOXAPARIN 40 MG/0.4 ML SQ SCH (09:00)
[2023-11-26] MEDS ORDERED: ASPIRIN EC 81 MG TAB PO SCH (09:00)
[2023-11-26] MEDS ORDERED: INFLUENZA VACCINE (for 6+ mo) 0.5 ML DOSE IMVAC ONE (09:00)
[2023-11-26] MEDS ORDERED: CLOPIDOGREL 75 MG TABLET PO SCH (09:00)
[2023-11-26] MEDS ORDERED: CLOPIDOGREL 75 MG TABLET ONE (10:07)
[2023-11-26] MEDS ORDERED: ASPIRIN EC 81 MG TAB PO ONE (10:07)
[2023-11-26] MEDS ORDERED: ENOXAPARIN 40 MG/0.4 ML SQ ONE (10:08)
[2023-11-26] MEDS ORDERED: INSULIN REGULAR (HUMAN) 100 UNIT/ML ONE (12:29)
--- NOTE | 2023-11-26 14:07 | RAD REPORT ---
EXAM DESCRIPTION: RAD - Chest Single View - 11/26/2023 2:16 am CLINICAL HISTORY: CHEST PAIN COMPARISON: 11/05/2023. TECHNIQUE: XR CHEST 1 VIEW 11/26/2023 1:33 AM AVIONICS SYSTEMS REPAIRER FINDINGS: The heart is mildly enlarged. Lungs are clear without consolidation, atelectasis, mass or edema. There is no pleural effusion. There is no pneumothorax. There are no acute osseous findings. IMPRESSION: Clear lungs. Electronically signed by: Sam Howell MD 11/26/2023 02:26 AM AVIONICS SYSTEMS REPAIRER Due to temporary technical issues with the PACS/Fluency reporting system, reports are being signed by the in house radiologist without review as a courtesy to ensure prompt reporting. The interpreting r adiologist is fully responsible for the content of the report.
--- NOTE | 2023-11-26 14:51 | P.PN ---
Subjective Date of Service: 11/26/23 Chief Complaint: Chest pain. Pt is resting comfortably in bed. He complains of right sided chest pain. Pt was not able to see the CV surgeon that Dr. Rodriguez recommended during last admission. Cardiology is recommending single vessel CABG at another facility. Will transfer pt. No other complaints. Review of Systems Unremarkable General: Unremarkable Eyes: Unremarkable ENT: Unremarkable Respiratory: Unremarkable Cardiovascular: Chest Pain Gastrointestinal: Unremarkable Genitourinary: Unremarkable Musculoskeletal: Unremarkable Integumentary: Unremarkable Neurological: Unremarkable Lymphatics: Unremarkable Physical Examination - Vital Signs Temperature: 98 F Blood Pressure: 108/67 Pulse: 63 Respirations: 18 Pulse Ox (%): 98 - Physical Exam General: Alert, In no apparent distress, Oriented x3 HEENT: Atraumatic, Normocephalic, PERRLA Neck: Supple, 2+ carotid pulse no bruit Respiratory: Clear to auscultation bilaterally, Normal air movement Cardiovascular: No edema, Normal pulses, Regular rate/rhythm, Normal S1 S2 Capillary refill: <2 Seconds Gastrointestinal: Normal bowel sounds, Soft and benign, Non-distended Musculoskeletal: No clubbing, No swelling Integumentary: No rashes, No breakdown Neurological: Normal speech, Normal strength at 5/5 x4 extr, Normal tone, Sensation intact, Cranial nerves 3-12 intact, Normal reflexes 2+ - Studies Laboratory Data (last 24 hrs) 11/26/23 11/26/23 11/26/23 01:42 01:42 01:42 WBC 8.10 Hgb 17.3 Hct 50.5 H Plt Count 194 PT 12.1 INR 1.10 Sodium 135 L Potassium 3.6 BUN 14 Creatinine 0.91 Glucose 238 H Magnesium 2.0 Total Bilirubin 0.7 AST 9 L ALT 23 Alkaline Phosphatase 78 Microbiology Data (last 24 hrs): 11/26/23 01:44 Nasopharnyx Influenza Type A Antigen Screen - Final 11/26/23 01:44 Nasopharnyx Influenza Type B Antigen Screen - Final Assessment And Plan - Plan Chest pain: Patient had significant workup during last admission which showed in-stent thrombosis of prior placed stent. Cardiology rreferred him to a CV surgeon but pt was not able to make the appointment. Dr. Rodriguez saw pt today and recommended transfer to another facility for single vessel CABG. Pt had tptally occluded LAD. Continue aspirin. off plavix. Diabetes type 2: Continue accuchek, SSI and ADA diet Hypertension: Will continue outpatient antihypertensive medications. Hyperlipidemia: statin therapy. DVT Prophylaxis: Lovenox Code: full Disposition: Pending hospital course. Dispo: Will transfer pt to another facility. supervisor accounts receivable is working on the transfer.
--- NOTE | 2023-11-26 14:58 | EKG ---
Test Date: 2023-11-26 Test Time: 01:29:32 Health And Social Care Teacher: BELL MEASUREMENT RESULTS: Intervals: Rate: 80 NJ: 154 QRSD: 96 QT: 356 QTc: 410 [place]: P: 55 NJ: 154 QRS: -69 T: 97 INTERPRETIVE STATEMENTS: Normal sinus rhythm Left axis deviation Inferior infarct, age undetermined Anterolateral infarct, age undetermined Abnormal ECG Compared to ECG 11/05/2023 02:35:26 No significant changes Electronically Signed On 11-26-23 14:56:58 BACKUP ENGINEER by Pepe Rodriguez
--- NOTE | 2023-11-26 19:13 | P.DS ---
Admission Date: 11/26/23 Discharge Date: 11/26/23 Disposition: [facility]ER TO [facility] Discharge Condition: SERIOUS Reason for Admission: Chest pain. - Problems (1) Chest pain Onset Date: 06/22/17 Current Visit: No Status: Acute Qualifiers: Chest pain type: precordial pain Qualified Code(s): R07.2 - Precordial pain (2) CAD (coronary artery disease) Onset Date: 06/22/17 Current Visit: No Status: Chronic Qualifiers: Coronary Disease-Associated Artery/Lesion type: [place] artery [place] vs. transplanted heart: [place] heart Associated angina: with unstable angina Qualified Code(s): I25.110 - Atherosclerotic heart disease of [place] coronary artery with unstable angina pectoris (3) Hyperlipidemia Onset Date: 06/22/17 Current Visit: No Status: Chronic Qualifiers: Hyperlipidemia type: unspecified Qualified Code(s): E78.5 - Hyperlipidemia, unspecified (4) Hypertension Onset Date: 02/16/15 Current Visit: No Status: Chronic Qualifiers: Hypertension type: essential hypertension Brief History of Present Illness: 53-year-old male patient with a medical history significant for diabetes type 2, hypertension, hyperlipidemia, coronary artery disease who was evaluated for ep isode of chest pain. He was recently evaluated at the hospital in the month of October 2023 and at that time he had a left heart cath that revealed in-stent thrombosis of 4 prior placed stents. He was referred to another specialist for proper care however he could not get to have a specialist evaluation prior to this encounter. He continues to have chest pain so he decided to come into the ED. He was admitted for management of his chest pain Hospital Course: Patient was transferred to CABG evaluation in [facility]. Discussed with Dr. Mayfield who accepted the patient Patient has been discharged to [facility] in stable condition for further care and management . Vital Signs/Physical Exam: Temp Pulse Resp BP Pulse Ox 97.2 F 72 19 134/72 94 11/26/23 16:00 11/26/23 17:29 11/26/23 16:00 11/26/23 17:29 11/26/23 16:00 General: Alert, In no apparent distress HEENT: Atraumatic, Normocephalic Neck: Supple, JVD not distended Respiratory: Clear to auscultation bilaterally, Normal air movement Cardiovascular: Regular rate/rhythm, Normal S1 S2 Capillary refill: <2 Seconds Gastrointestinal: Soft and benign, W/out hepatosplenomegaly Musculoskeletal: No clubbing, No swelling Integumentary: No rashes, No breakdown Neurological: Normal speech, Normal strength at 5/5 x4 extr, Cranial nerves 3-12 intact Lymphatics: No axilla or inguinal lymphadenopathy Laboratory Data at Discharge: WBC 8.10 thou/uL (4.3-10.9) 11/26/23 01:42 Hgb 17.3 g/dL (13.6-17.9) 11/26/23 01:42 Hct 50.5 % (39.6-49.0) H 11/26/23 01:42 Plt Count 194 thou/uL (152-406) 11/26/23 01:42 PT 12.1 SECONDS (9.5-12.5) 11/26/23 01:42 INR 1.10 11/26/23 01:42 Sodium 135 mEq/L (136-145) L 11/26/23 01:42 Potassium 3.6 mEq/L (3.5-5.1) 11/26/23 01:42 BUN 14 mg/dL (7-18) 11/26/23 01:42 Creatinine 0.91 mg/dL (0.70-1.30) 11/26/23 01:42 Glucose 238 mg/dL (74-106) H 11/26/23 01:42 Magnesium 2.0 mg/dL (1.6-2.4) 11/26/23 01:42 Total Bilirubin 0.7 mg/dL (0.2-1.0) 11/26/23 01:42 AST 9 U/L (15-37) L 11/26/23 01:42 ALT 23 U/L (16-61) 11/26/23 01:42 Alkaline Phosphatase 78 U/L (45-117) 11/26/23 01:42 Triglycerides 136 mg/dL (<150) 11/26/23 08:15 Cholesterol 128 mg/dL (<200) 11/26/23 08:15 HDL Cholesterol 28 mg/dL (40-60) L 11/26/23 08:15 Cholesterol/HDL Ratio 4.57 11/26/23 08:15 Home Medications: Aspirin [Aspirin EC 81 MG] 81 mg PO SEECOM 11/05/23 Hydrocodone 10/APAP 325 [[place] 10/325*] 1 tab PO BID PRN 11/05/23 Sacubitril/Valsartan [Entresto 24 mg-26 mg Tablet] 1 each PO DAILY 11/05/23 Atorvastatin Calcium [Lipitor] 40 mg PO BEDTIME #30 tab 11/06/23 Clopidogrel Bisulfate [Plavix*] 75 mg PO DAILY #30 tab 11/06/23 Metoprolol Tartrate [Lopressor*] 25 mg PO BID 6AM 6PM #60 tab 11/06/23 Physician Discharge Instructions: DC to [facility] Diet: ADA Activity: Ad selvin Followup: NONE,NONE [Primary Care Provider] - 1 Day (Dr Mayfield ) Time spent managing pt's care (in minutes): 45
--- NOTE | 2023-11-26 20:44 | CON ---
Date of Consultation: 11/26/2023 Reason For Consultation: Chest pain. History Of Present Illness: A 53-year-old male, history of diabetes, hypertension, coronary artery d isease, dyslipidemia, known CAD of the LAD with collaterals from the right, presented with chest pain , sharp, left-sided. He was hospitalized recently, had coronary angiogram, and CT OM and LAD with co llaterals, failed FIELD UNDERWRITER PCI and we recommended bypass surgery. Then, he has not made it yet to see a C T surgeon and continued to have chest pain, so he presented to the emergency room. Past Medical History: As outlined above in the HPI. Medications: Refer to reconciliation sheet for detailed list. Allergies: NO KNOWN DRUG ALLERGIES. Family History: No premature coronary artery disease or cancer. Social History: He is an active smoker. Does not use drugs and drinks alcohol on a regular basis. Review of Systems: All systems reviewed and they were negative except as mentioned in the HPI. Physical Examination: Vital Signs: Reviewed. Head and Neck: Pupils are equal, reactive to light. Intact eye movements. No JVD. No cervical lym phadenopathy. Neck: Supple. Thyroid is not enlarged. Lungs: Clear to auscultation bilaterally. No rhonchi, rales, or crackles. No accessory muscle use. Heart: Regular rate and rhythm. No extra sounds. Abdomen: Soft, nontender. Bowel sounds positive. No organomegaly. No masses or hernia. No rigidi ty or rebound. Extremities: No edema, clubbing, or cyanosis. Intact pulses. Skin: No rash or nodule. Neurologic: Alert, awake, oriented x3. No acute focal deficits appreciated. Lymph Nodes: No cervical or axillary lymphadenopathy. Investigations: Cardiac enzymes are negative. Assessment/recommendation: 1.Chest pain, recurrent. Has FIELD UNDERWRITER mid-LAD stenosis. Heart rate is in the low 60s and blood pressure is in the low side. At this point, I would recommend revascularization to bypass surgery, single-ve ssel bypass. He has moderate coronary artery disease elsewhere, but needs aggressive medical managem ent. We will plan to transfer him to a higher level of care facility for bypass surgery, single vess el. 2.Hypertension, controlled, continue current management. 3.Dyslipidemia. Recommend Lipitor 40 mg at bedtime. SR/MODL Voice ID: [id number] Report ID: [id number]
[2023-11-26] MEDS ORDERED: ATORVASTATIN 40 MG TAB PO SCH (21:00)
[2023-11-26 21:23] VITALS: BP 126/71; TEMP 97.5
[2023-11-27] MEDS ORDERED: SACUBITRIL/VALSARTAN 24/26 MG TAB PO SCH (09:00)
== END 2023-11-26 23:07 | disposition short-term general hospital (02) ==
LOC: ER 01:22 → ERHOLD 04:10 → 4TH 13:00
PROVIDERS: ADMIT Internal Medicine Nephrology; ATTEND Hospitalist
DX: R07.9 Chest pain, unspecified (principal); E11.9 Type 2 diabetes mellitus without complications; I10 Essential (primary) hypertension; E78.5 Hyperlipidemia, unspecified; Z79.82 Long term (current) use of aspirin
CPT/HCPCS: 93005; 85025; 80048; 36415; 83735; 85610; 80061; 82947 ×4; 80076; 84484 ×5; 83880; 87804 ×2; 71045; 87811; J1815 ×3; J1650 ×2; J2270 ×4; J2405; J7030 ×2; G0378 ×3

== ENCOUNTER → 2023-12-27 | Emergency (ER) | payer OTHER ==
[~2023-12-27] MED LIST: AMIODARONE HCL 150 MG/3 ML INJ IV ONE; AMIODARONE IN DEXTROSE,ISO-OSM 360 MG/200 ML BAG IV ONE; HYDROCODONE/APAP 10/325 TAB ONE; MORPHINE 4 MG/ML SYR ONE
--- OUTSIDE RECORDS SUMMARY | 2023-12-27 07:59 | XMS REPORT | Continuity of Care Document ---
Author Name Unknown Address [address] [facility]. [address] [place] [address] [facility] thconnect Address [address] [facility] [address] [place] [address] Care Team Providers Care Candy Mixer Name Role Phone Johanna Carmen Attending Clinician Unavailable Papo Mayfield Attending Clinician UnavailMontez Grace Attending Clinician Unavailable Papo Mayfield Admitting Clinician UnavailMontez Grace Admitting Clinician Unavailable Payers Payer Name Policy Type Policy Number Effective Date Expirati on Date Source [facility] 6 [id number] 2019 00:00:00 [facility] Problems Condition Name Condition Details Condition Category Status Onset Date Resolution Date Last Treatment Date Treating Clinician Comments Source [id number] Chronic pain syndrome Problem [facility] [id number] Essential hypertensi on Problem [facility] [id number] Coronary stent patent Problem [facility] [id number] Coronary artery disease of [place] heart with stable angina pectoris, unspecifie d vessel or lesion type Problem [facility] [id number] Type 2 diabetes mellitus with hyperglyce solange, without long-term current use of insulin Problem [facility] [id number] Nicotine abuse Problem [facility] Allergies, Adverse Reactions, Alerts Allergy Name Allergy Type Status Severity Reaction(s) Onset Date Inactive Date Treating Clinician Comments Source No Known Allergie s DA Active U 03-18 00:00: 00 [facility] Social History Social Habit Start Date Stop Date Quantity Comments Source History of Tobacco Use Current Smoker [facility] Sex Assigned At [facility] Smoking Status Start Date Stop Date Source Current Smoker 2022-11-09 00:00:00 [facility] Medications Ordered Medication Name Filled Medication Name [...] Name Observation Time Observation Value Comments S ource height 2022-10-10 10:40:00 70 [in_i] Commo n [facility] weight 2022-10-10 10:40:00 198 [lb_av] Comm on [facility] temperature 2022-10-10 10:40:00 97.9 [degF] Com mon [facility] bmi 2022-10-10 10:40:00 28.41 kg/m2 Comm on [facility] oximetry 2022-10-10 10:40:00 98 % Commo n [facility] respiratory rate 2022-10-10 10:40:00 17 /min [facility] blood pressure systolic 2022-10-10 10:40:00 132 mm[Hg] [facility] blood pressure diastolic 2022-10-10 10:40:00 87 mm[Hg] [facility] Procedures Procedure Date / Time Performed Performing Clinicia n Source [id number] 2023-11-30 00:00:00 [facility] [id number] 2023-03-18 00:00:00 LUKDA [facility] [id number] 2023-03-18 00:00:00 BUCSC [facility] [id number] 2023-03-18 00:00:00 LUKDA [facility] [id number] 2023-03-18 00:00:00 LUKDA [facility] [id number] 2023-03-18 00:00:00 LUKDA [facility] [id number] 2023-03-18 00:00:00 LUKDA [facility] [id number] 2023-03-18 00:00:00 KDA [facility] Encounters Start Date/Time End Date/Time Encounter Type Admission Type Attending Clinicians Care Facility Care Department Encounter ID Source 2022-11-07 07:49:00 Outpatient Carmen Spencer [facility] [id number] [facility] 2022-10-17 15:16:02 Outpatient Carmen Spencer [facility] [id number] [facility] 2022-10-11 12:49:02 Outpatient Carmen Spencer [facility] [id number] [facility] 2022-10-10 10:34:05 Outpatient Carmen Spencer [facility] [id number] [facility] 2023-11-27 00:28:00 2023-12-03 15:18:00 Inpatient Papo Sauceda [facility] [id number] [facility] 2023-05-16 11:13:22 2023-05-16 11:13:22 Outpatient SFA SFA [id number] [facility] Mejia Gustavo 2023-03-18 14:57:00 2023-03-20 16:25:00 Inpatient Montez Kay [facility] [id number] 87 [facility] 2023-02-19 00:00:00 2023-02-19 00:00:00 (TEL) [facility] [id number] [facility] 2022-10-10 00:00:00 2022-10-10 00:00:00 OFFICE VISIT ESTAB PT LEVEL 4 [facility] [id number] [facility] Results Test Description Test Time Test Comments Results Resul t Comments Source - CTA HEART W CN ART/GRAFTS 2023-12-04 00:00:00 [facility] XIANG SCHERERName: CHARAN RESTREPO : 1970 Sex: M Name: CHARAN RESTREPO [facility] Xiang Scherer : 1970 Age/S: 53 / M [address] [place] [address] Bl Unit #: [id number] Loc: [place] [address] Phys: Papo Mayfield MD Acct: [id number] Dis Date: 12/03/2023 Status: DIS IN PHONE #: [phone] Exam Date: 11/30/2023 1526 FAX #: [phone] Reason: edy for Exam: CAD, possible thrombus EXAMS: CPT CODE: [id number] CTA HEART W CN ART/GRAFTS 22591 Radiation Dose CTDIVOL = 62.42 (mGy): DLP = 630.17 (mGy-cm) PROCEDURE INFORMATION: Exam: CTA Heart And Coronary Arteries With Contrast Exam date and time: 11/30/2023 3:09 PM Age: 53 years old Clinical indication: Pain; Angina pectoris; Additional info: Cad, possible thrombus TECHNIQUE: Imaging protocol: CT angiography of the heart, coronary arteries, and bypass grafts (when present) with contrast including 3D image postprocessing. Standard prospective cardiac-gated CAC scoring protocol was used for image acquisition. Following intravenous contrast administration, ECG gated CTA was performed. 3D rendering (Not supervised by radiologist): MIP and/or 3D reconstructed images were created by the technologist. Radiation optimization: All CT scans at this facility use at least one of these dose optimization techniques: automated exposure control; mA and/or kV adjustment per patient size (includes targeted exams where dose is matched to clinical indication); or iterative reconstruction. Contrast material: ISOVUE 370; Contrast volume: 100 ml; Contrast route: INTRAVENOUS (IV); Pharmacological intervention: None. COMPARISON: CT CHEST W/O CONTRAST 11/27/2023 9:28 AM RADIATION DOSE METRICS: CTDI volume (mGy): 62.42 Total DLP (mGy-cm): 630.17 FINDINGS: CORONARY: Left main coronary artery (LMCA): The left main coronary artery is a medium caliber vessel that trifurcates into a left anterior descending artery, left circumflex artery, and ramus intermedius. It demonstrates noncalcified plaque resulting in minimal stenosis. Left anterior descending artery (LAD): There is focal noncalcified plaque at the ostium of the LAD resulting in severe stenosis, greater than 70% luminal narrowing. Tandem stents are present throughout the proximal and mid LAD. There appears to be significant in stent restenosis within the mid LAD stent, although evaluation is suboptimal due to technical factors. Only a faint contrast column is identified through the distal LAD. Patent ramus intermedius. Left circumflex artery (LCx): There is mixed plaque within the PAGE 1 Signed Report (CONTINUED) Name: CHARAN RESTREPO [facility] : 1970 Age/S: 53 / M [address] [place] [address] Blvd Unit #: [id number] Loc: [place] [address] Phys: Papo Mayfield MD Acct: [id number] Dis Date: 12/03/2023 Status: DIS IN PHONE #: [phone] Exam Date: 11/30/2023 1521 FAX #: [phone] Reason: edy for Exam: CAD, possible thrombus EXAMS: CPT CODE: [id number] CTA HEART W CN ART/GRAFTS 39801 (Continued) proximal segment resulting in minimal stenosis. The left circumflex artery gives off 2 patent obtuse marginal branches. Right coronary artery (RCA): Mixed plaque is present throughout the proximal and mid segments, resulting in minimal stenosis. The right coronary artery terminates as a posterior descending artery and right posterolateral branch with no evidence of plaque or stenosis. Coronary artery dominance: Right CARDIAC: Cardiac valves: No thickening or calcification of the aortic and mitral valves. Myocardium: There is evidence of chronic, large LAD distribution infarct with associated myocardial thinning and fatty metaplasia throughout the LV apex. Moderate-size LV thrombus is identified along the anterior wall which measures 5.0 x 1.8 cm. Pericardium: No pericardial effusion or thickening. FUNCTIONAL ANALYSIS: Left ventricular function: Not performed Lungs: Visualized lungs are unremarkable. Mediastinal space: Limited views of the mediastinal space is unremarkable. IMPRESSION: 1. Focal noncalcified plaque at the ostium of the LAD results in severe stenosis, greater than 70% luminal narrowing. There is suggestion of significant in stent restenosis within a mid LAD stent, although evaluation is suboptimal due to technical factors. Further investigation with invasive coronary angiography is recommended. 2. Chronic, large LAD-distribution infarct with associated myocardial thinning and fatty metaplasia throughout the LV apex. Moderate-size LV thrombus is identified along the anterior wall which measures 5.0 x 1.8 cm. 3. Minimal stenosis of the left circumflex artery and the right coronary artery. at 0455 Reported and signed by: Adis Khan M.D. PAGE 2 Signed Report (CONTINUED) Name: CHARAN RESTREPO [facility] : 1970 Age/S: 53 / M [address] [place] [address] Blvd Unit #: [id number] Loc: [place] [address] Phys: Papo Mayfield MD Acct: [id number] Dis Date: 12/03/2023 Status: DIS IN PHONE #: [phone] Exam Date: 11/30/2023 1526 FAX #: [phone] Reason: edy for Exam: CAD, possible thrombus EXAMS: CPT CODE: [id number] CTA HEART W CN ART/GRAFTS 07408 (Continued) CC: Papo Mayfield MD; Jesusita Osuna MD Technologist:Dejuan Sanchez Jr, RT(R)(CT) CTDI: DLP: Trnscb Date/Time: 12/04/2023 (454) t.[email or web address] Orig Print D/T: S: 12/04/2023 (045) PAGE 3 Signed Report GLUCOSE [id number] 08:12:00* Test Item Value Reference Range Interpretation Comme nts GLUCOSE BEDSIDE (test code = GLUBED) 228 MG/DL 70-110 H Performed by cer yasir light rail train operator at [facility] CBC W/AUTO [id number] 06:16:00* Test Item Value Reference Range Interpretation Comme nts WHITE BLOOD CELL (test code = WBC) 8.0 x10 3/uL 4.5-11.0 N RED BLOOD CELL (test code = RBC) 5.26 x10 6/uL 4.00-5.60 N HEMOGLOBIN (test code = HGB) 15.1 g/dL 12.5-16.9 N HEMATOCRIT (test code = HCT) 44.3 % 37.5-50.7 N MEAN CELL VOLUME (test code = MCV) 84.2 fL 81.0-99.0 N MEAN CELL HGB (test code = MCH) 28.7 pg 27.0-33.0 N MEAN CELL HGB CONCETRATION (test code = MCHC) 34.1 g/dL 33.0-37.0 N RED CELL DISTRIBUTION WIDTH CV (test code = RDW) 13.5 % 11.5-14.5 N RED CELL DISTRIBUTION WIDTH SD (test code = RDW-SD) 41.8 fL 37.0-54.0 N PLATELET COUNT (test code = PLT) 189 x10 3/uL 150-400 N MEAN PLATELET VOLUME (test c ode = MPV) 10.4 fL 7.0-9.0 H NEUTROPHIL % (test code = NT%) 60.9 % 56.0-77.0 N IMMATURE GRANULOCYTE % (test code = IG%) 1.3 % 0.0-2.0 N LYMPHOCYTE % (test code = LY%) 22.2 % 14.0-32.0 N MONOCYTE % (test code = MO%) 9.9 % 4.8-9.0 H EOSINOPHIL % (test code = EO%) 4.4 % 0.3-3.7 H BASOPHIL % (test code = BA%) 1.3 % 0.0-2.0 N NUCLEATED RBC % (test code = NRBC%) 0.0 % 0-0 N NEUTROPHIL # (test code = NT#) 4.87 x10 3/uL 2.0-7.6 N IMMATURE GRANULOCYTE # (test code = IG#) 0.10 x10 3/uL 0.00-0.03 H LYMPHOCYTE # (test code = LY#) 1.77 x10 3/uL 1.0-3.8 N MONOCYTE # (test code = MO#) 0.79 x10 3/uL 0.1-0.8 N EOSINOPHIL # (test code = EO#) 0.35 x10 3/uL 0.0-0.2 H BASOPHIL # (test code = BA#) 0.10 x10 3/uL 0.0-0.2 N NUCLEATED RBC # (test code = NRBC#) 0.00 x10 3/uL 0.0-0.1 N COMMENTS: Daily while on HeparinBASIC METABOLIC [id number] 05:45:00* Test Item Value Reference Range Interpretation Comme nts SODIUM (test code = NA) 138 mEq/L 134-147 N POTASSIUM (test code = K) 4.0 mEq/L 3.4-5.0 N CHLORIDE (test code = CL) 108 mEq/L 100-108 N CARBON DIOXIDE (test code = CO2) 26 mEq/l 21-33 N ANION GAP (test code = GAP) 9 0-20 N GLUCOSE (test code = GLU) 187 mg/dL 77-141 H BLOOD UREA NITROGEN (test code = BUN) 16 mg/dL 7-25 N GLOMERULAR FILTRATION RATE (test code = GFR) 105.2 90-95 H The Glomerular Filtration Rate is a calculated [...] <18 years. CREATININE (test code = CREAT) 0.8 mg/dL 0.6-1.3 N CALCIUM (test code = CA) 9.1 mg/dL 8.0-10.5 N [id number] 05:45:00* Test Item Value Reference Range Interpretation Comme nts PHOSPHOROUS (test code = PHOS) 4.0 MG/DL 2.5-4.9 N [id number] 05:45:00* Test Item Value Reference Range Interpretation Comme nts MAGNESIUM (test code = MAG) 1.87 mg/dL 1.6-2.6 N CALCIUM [id number] 05:45:00* Test Item Value Reference Range Interpretation Comme nts CALCIUM IONIZED (test code = MONICA) 1.13 MMOL/L 1.09-1.30 N GLUCOSE [id number] 20:56:00* Test Item Value Reference Range Interpretation Comme nts GLUCOSE BEDSIDE (test code = GLUBED) 305 MG/DL 70-110 H Performed by cer tified light rail train operator at [facility] GLUCOSE [id number] 16:35:00* Test Item Value Reference Range Interpretation Comme nts GLUCOSE BEDSIDE (test code = GLUBED) 228 MG/DL 70-110 H Performed by cer tified light rail train operator at [facility] GLUCOSE [id number] 11:56:00* Test Item Value Reference Range Interpretation Comme nts GLUCOSE BEDSIDE (test code = GLUBED) 205 MG/DL 70-110 H Performed by cer tified light rail train operator at [facility] GLUCOSE [id number] 07:36:00* Test Item Value Reference Range Interpretation Comme nts GLUCOSE BEDSIDE (test code = GLUBED) 233 MG/DL 70-110 H Performed by cer tified light rail train operator at [facility] BASIC METABOLIC [id number] 03:40:00* Test Item Value Reference Range Interpretation Comme nts SODIUM (test code = NA) 136 mEq/L 134-147 N POTASSIUM (test code = K) 4.2 mEq/L 3.4-5.0 N CHLORIDE (test code = CL) 106 mEq/L 100-108 N CARBON DIOXIDE (test code = CO2) 26 mEq/l 21-33 N ANION GAP (test code = GAP) 8 0-20 N GLUCOSE (test code = GLU) 293 mg/dL 77-141 H BLOOD UREA NITROGEN (test code = BUN) 16 mg/dL 7-25 N GLOMERULAR FILTRATION RATE (test code = GFR) 101.5 90-95 H The Glomerular Filtration Rate is a calculated [...] <18 years. CREATININE (test code = CREAT) 0.9 mg/dL 0.6-1.3 N CALCIUM (test code = CA) 9.3 mg/dL 8.0-10.5 N [id number] 03:40:00* Test Item Value Reference Range Interpretation Comme nts PHOSPHOROUS (test code = PHOS) 3.7 MG/DL 2.5-4.9 N [id number] 03:40:00* Test Item Value Reference Range Interpretation Comme nts MAGNESIUM (test code = MAG) 1.95 mg/dL 1.6-2.6 N TROP-I HIGH [id number] 03:40:00* Test Item Value Reference Range Interpretation Comme nts TROP-I HIGH SENSITIVITY (test code = TROPIHS) 17 ng/L 0-54 N CAUTION: Units o f the current test methodology (ng/L) differfrom the prior test methodology (ng/mL) by a factor of 1000. 99th Percentile Upper Reference Limit (URL): Females: 34 ng/LMales: 54 ng/L In order to distinguish acute elevations of high sensitivitytroponin from other clinical conditions, the FourthUniversal Definition of Myocardial Infarction stressesclinical assessment and the demonstration of a rise and/orfall in serial troponin results above the URL. These results were obtained using Siemens AtellMojiva IM TnIHreagent. Results from different methodologies should not becompared to one another as quantitative results and URLs mayvary by method. CALCIUM [id number] 03:40:00* Test Item Value Reference Range Interpretation Comme nts CALCIUM IONIZED (test code = MONICA) 1.19 MMOL/L 1.09-1.30 N CBC W/AUTO [id number] 03:07:00* Test Item Value Reference Range Interpretation Comme nts WHITE BLOOD CELL (test code = WBC) 9.7 x10 3/uL 4.5-11.0 N RED BLOOD CELL (test code = RBC) 5.08 x10 6/uL 4.00-5.60 N HEMOGLOBIN (test code = HGB) 14.5 g/dL 12.5-16.9 N HEMATOCRIT (test code = HCT) 43.2 % 37.5-50.7 N MEAN CELL VOLUME (test code = MCV) 85.0 fL 81.0-99.0 N MEAN CELL HGB (test code = MCH) 28.5 pg 27.0-33.0 N MEAN CELL HGB CONCETRATION (test code = MCHC) 33.6 g/dL 33.0-37.0 N RED CELL DISTRIBUTION WIDTH CV (test code = RDW) 13.8 % 11.5-14.5 N RED CELL DISTRIBUTION WIDTH SD (test code = RDW-SD) 42.6 fL 37.0-54.0 N PLATELET COUNT (test code = PLT) 186 x10 3/uL 150-400 N MEAN PLATELET VOLUME (test c ode = MPV) 10.3 fL 7.0-9.0 H NEUTROPHIL % (test code = NT%) 65.5 % 56.0-77.0 N IMMATURE GRANULOCYTE % (test code = IG%) 0.6 % 0.0-2.0 N LYMPHOCYTE % (test code = LY%) 21.8 % 14.0-32.0 N MONOCYTE % (test code = MO%) 7.4 % 4.8-9.0 N EOSINOPHIL % (test code = EO%) 4.0 % 0.3-3.7 H BASOPHIL % (test code = BA%) 0.7 % 0.0-2.0 N NUCLEATED RBC % (test code = NRBC%) 0.0 % 0-0 N NEUTROPHIL # (test code = NT#) 6.35 x10 3/uL 2.0-7.6 N IMMATURE GRANULOCYTE # (test code = IG#) 0.06 x10 3/uL 0.00-0.03 H LYMPHOCYTE # (test code = LY#) 2.11 x10 3/uL 1.0-3.8 N MONOCYTE # (test code = MO#) 0.72 x10 3/uL 0.1-0.8 N EOSINOPHIL # (test code = EO#) 0.39 x10 3/uL 0.0-0.2 H BASOPHIL # (test code = BA#) 0.07 x10 3/uL 0.0-0.2 N NUCLEATED RBC # (test code = NRBC#) 0.00 x10 3/uL 0.0-0.1 N COMMENTS: Daily while on HeparinGLUCOSE [id number] 21:11:00* Test Item Value Reference Range Interpretation Comme [facility] GL[facility] BEDSIDE (test code = GLUBED) 247 MG/DL 70-110 H Performed by cer tified light rail train operator at [facility] GLUCOSE [id number] 16:48:00* Test Item Value Reference Range Interpretation Comme [facility] GLUCOSE BEDSIDE (test code = GLUBED) 239 MG/DL 70-110 H Performed by cer tified light rail train operator at [facility] GLUCOSE [id number] 10:48:00* Test Item Value Reference Range Interpretation Comme nts GLUCOSE BEDSIDE (test code = GLUBED) 196 MG/DL 70-110 H Performed by cer tified light rail train operator at [facility] GLUCOSE [id number] 07:49:00* Test Item Value Reference Range Interpretation Comme nts GLUCOSE BEDSIDE (test code = GLUBED) 247 MG/DL 70-110 H Performed by cer tified light rail train operator at [facility] BASIC METABOLIC [id number] 05:07:00* Test Item Value Reference Range Interpretation Comme nts SODIUM (test code = NA) 138 mEq/L 134-147 N POTASSIUM (test code = K) 4.4 mEq/L 3.4-5.0 N CHLORIDE (test code = CL) 108 mEq/L 100-108 N CARBON DIOXIDE (test code = CO2) 26 mEq/l 21-33 N ANION GAP (test code = GAP) 9 0-20 N GLUCOSE (test code = GLU) 263 mg/dL 77-141 H BLOOD UREA NITROGEN (test code = BUN) 16 mg/dL 7-25 N GLOMERULAR FILTRATION RATE (test code = GFR) 89.4 90-95 L The Glomerular Filtration Rate is a calculated [...] <18 years. CREATININE (test code = CREAT) 1.0 mg/dL 0.6-1.3 N CALCIUM (test code = CA) 9.0 mg/dL 8.0-10.5 N [id number] 05:07:00* Test Item Value Reference Range Interpretation Comme nts PHOSPHOROUS (test code = PHOS) 3.7 MG/DL 2.5-4.9 N [id number] 05:07:00* Test Item Value Reference Range Interpretation Comme nts MAGNESIUM (test code = MAG) 2.06 mg/dL 1.6-2.6 N CALCIUM [id number] 05:07:00* Test Item Value Reference Range Interpretation Comme nts CALCIUM IONIZED (test code = MONICA) 1.14 MMOL/L 1.09-1.30 N THROMBOPLASTIN TIME [id number] 04:55:00* Test Item Value Reference Range Interpretation Comme nts THROMBOPLASTIN TIME PARTIAL (test code = PTT) 27.8 Seconds 25.0-39.5 Therapeutic Rang e: 50.4 - 88.3 Seconds Effective 02/04/2019 CBC W/AUTO [id number] 04:48:00* Test Item Value Reference Range Interpretation Comme nts WHITE BLOOD CELL (test code = WBC) 12.3 x10 3/uL 4.5-11.0 H RED BLOOD CELL (test code = RBC) 5.39 x10 6/uL 4.00-5.60 N HEMOGLOBIN (test code = HGB) 15.3 g/dL 12.5-16.9 N HEMATOCRIT (test code = HCT) 45.7 % 37.5-50.7 N MEAN CELL VOLUME (test code = MCV) 84.8 fL 81.0-99.0 N MEAN CELL HGB (test code = MCH) 28.4 pg 27.0-33.0 N MEAN CELL HGB CONCETRATION (test code = MCHC) 33.5 g/dL 33.0-37.0 N RED CELL DISTRIBUTION WIDTH CV (test code = RDW) 13.8 % 11.5-14.5 N RED CELL DISTRIBUTION WIDTH SD (test code = RDW-SD) 42.5 fL 37.0-54.0 N PLATELET COUNT (test code = PLT) 189 x10 3/uL 150-400 N MEAN PLATELET VOLUME (test code = MPV) 10.3 fL 7.0-9.0 H NEUTROPHIL % (test code = NT%) 83.6 % 56.0-77.0 H IMMATURE GRANULOCYTE % (test code = IG%) 0.5 % 0.0-2.0 N LYMPHOCYTE % (test code = LY%) 8.1 % 14.0-32.0 L MONOCYTE % (test code = MO%) 6.9 % 4.8-9.0 N EOSINOPHIL % (test code = EO%) 0.5 % 0.3-3.7 N BASOPHIL % (test code = BA%) 0.4 % 0.0-2.0 N NUCLEATED RBC % (test code = NRBC%) 0.0 % 0-0 N NEUTROPHIL # (test code = NT#) 10.26 x10 3/uL 2.0-7.6 H IMMATURE GRANULOCYTE # (test code = IG#) 0.06 x10 3/uL 0.00-0.03 H LYMPHOCYTE # (test code = LY#) 1.00 x10 3/uL 1.0-3.8 N MONOCYTE # (test code = MO#) 0.85 x10 3/uL 0.1-0.8 H EOSINOPHIL # (test code = EO#) 0.06 x10 3/uL 0.0-0.2 N BASOPHIL # (test code = BA#) 0.05 x10 3/uL 0.0-0.2 N NUCLEATED RBC # (test code = NRBC#) 0.00 x10 3/uL 0.0-0.1 N MANUAL DIFF REQUIRED (test code = MDIFF) NO COMMENTS: Daily while on HeparinTHROMBOPLASTIN TIME [id number] 22:40:00* Test Item Value Reference Range Interpretation Comme [facility] THROMBOPLASTIN TIME PARTIAL (test code = PTT) 58.8 Seconds 25.0-39.5 H Therapeutic Rang e: 50.4 - 88.3 Seconds Effective 02/04/2019 GLUCOSE [id number] 22:19:00* Test Item Value Reference Range Interpretation Comme [facility] GLUCOSE BEDSIDE (test code = GLUBED) 340 MG/DL 70-110 H Performed by melvin cooley light rail train operator at [facility] - XR CHEST 1 [id number] 13:44:00 [facility] : 1970 Sex: M FAX: Viki Cartwright [place]: St: [facility] FAX: Papo Stiles MD [phone] FAX: Jesusita Renner MD [phone] Name: CHARAN RESTREPO [facility] : 1970 Age/S: 53/M [address] [place] [address] Unit #: [id number] Loc: [address] [address] Phys: Viki Cartwright Acct: [id number] Dis Date: Status: ADM IN PHONE #: [phone] Exam Date: 11/30/2023 1248 FAX #: [phone] Reason: S/p intubation EXAMS: CPT CODE: [id number] XR CHEST 1 V 83764 Dictation location: C4. CHEST, FRONTAL VIEW HISTORY: S/p intubation FINDINGS: Since 11/29/23, the endotracheal tube has been placed in good position at the clavicular heads. Right IJ central venous line in SVC. No pneumothorax. Cardiomegaly with mild pu lmonary edema. The bones are intact. Several wires overlie the chest. IMPRESSION: Interval placement of endotracheal tube in right IJ central venous line in good position. No pneumothorax. Mild pulmonary edema. at 1344 Reported and signed by: Sarah Brizuela M.D. CC: Viki Cartwright; Papo Mayfield MD; Jesusita Osuna MD Technologist: RT Naseem(R) Trnscrd Date/Time/By: 11/30/2023 (4484) : By: [email or web address] Orig Print D/T: S: 11/30/2023 (2563) PAGE 1 Signed [id number] 11:20:00* Test Item Value Reference Range Interpretation Comme nts ACT-ISTAT (test code = ACTI) 131 SEC 74-137 N Performed by cer tified light rail train operator at [facility] POC ARTERIAL BLOOD [id number] 11:15:00* Test Item Value Reference Range Interpretation Comme nts POC ARTERIAL BLOOD GAS PH (t est code = POCPHA) 7.270 7.35-7.45 LL POC ARTERIAL BLOOD GAS PCO2 (test code = PCGGYO1V) 48.2 mmHg 35.0-45 H POC TCO2 ARTERIAL (test code = POCTCO2) 23.6 POC ARTERIAL BLOOD GAS PO2 ( test code = IQDQC5W) 349.7 mmHg 80-100.0 HH POC HCO3 ARTERIAL (test code = ZTZCEY0K) 22.1 MMOL/L 22.0-26.0 N POC BASE EXCESS (test code = POCBEA) -5.1 MMOL/L -4.0-4.0 L POC O2 SATURATION (test code = POCO2S) 99.9 % 90-100 N BASIC METABOLIC [id number] 11:15:00* Test Item Value Reference Range Interpretation Comme nts SODIUM (test code = NA/ABG) 140 mmol/L 134-147 N POTASSIUM (test code = K/ABG) 3.7 mmol/L 3.4-5.0 N CHLORIDE (test code = CL/ABG) 106 mmol/L 100-108 N CREATININE ABG (test code = CREAABG) 0.4 mg/dL 0.8-1.3 L POC IONIZED CALCIUM (test co de = POCCA) 1.17 MMOL/L 1.12-1.32 N POC GLUCOSE (test code = POCGLU) 214 MG/DL 70-110 H HEMOGLOBIN [id number] 11:15:00* Test Item Value Reference Range Interpretation Comme nts HEMOGLOBIN ABG (test code = HGB/ABG) 15.2 G/DL 12.5-16.9 N [id number] 11:15:00* Test Item Value Reference Range Interpretation Comme nts HEMATOCRIT (test code = HCT/ABG) 45 % 37.5-50.7 N POC LACTIC [id number] 11:15:00* Test Item Value Reference Range [facility] POC LACTIC ACID (test code = POCLAC) 0.5 mmol/l 0.9-1.7 L GLUCOSE [id number] 08:27:00* Test Item Value Reference Range Interpretation Comme [facility] GLUCOSE BEDSIDE (test code = GLUBED) 134 MG/DL 70-110 H Performed by cer tified light rail train operator at [facility] PROTHROMBIN [id number] 06:53:00* Test Item Value Reference Range Interpretation Comme nts PROTHROMBIN TIME PATIENT (test code = PTP) 11.3 SECONDS 9.3-12.9 N INTERNATIONAL NORMAL RATIO (test code = INR) 1.0 0.8-1.2 N TARGET INR BY INDICATION Indication INR1. Prophylaxis of venous thrombosis 2.0 - 3.0 (orthopedic surgery), Prophylaxis of venous thrombosis (other than high-risk surgery), Treatment of Deep Vein Thrombosis/Pulmonary Embolism, Prevention of systemic embolism - Tissue heart valves, Acute Myocardial Infarction (to prevent systemic embolism), Valvular heart disease, Atrial Fibrillation, Bileaflet mechanical valve in aortic position.2. Mechanical prosthetic valves (high risk), 2.5 - 3.5 Presence of Lupus Anticoagulant or Antiphospholipid Antibodies, Prevention of systemic embolism - Acute Myocardial Infarction (to prevent recurrent infarct). THROMBOPLASTIN TIME [id number] 06:53:00* Test Item Value Reference Range Interpretation Com[facility] THROMBOPLASTIN TIME PARTIAL (test code = PTT) 57.9 Seconds 25.0-39.5 H Therapeutic Rang e: 50.4 - 88.3 Seconds Effective 02/04/2019 BASIC METABOLIC [id number] 04:46:00* Test Item Value Reference Range Interpretation Comme nts SODIUM (test code = NA) 137 mEq/L 134-147 N POTASSIUM (test code = K) 4.3 mEq/L 3.4-5.0 CHLORIDE (test code = CL) 110 mEq/L 100-108 H CARBON DIOXIDE (test code = CO2) 24 mEq/l 21-33 N ANION GAP (test code = GAP) 7 0-20 N GLUCOSE (test code = GLU) 174 mg/dL 77-141 H BLOOD UREA NITROGEN (test code = BUN) 18 mg/dL 7-25 N GLOMERULAR FILTRATION RATE (test code = GFR) 105.2 90-95 H The Glomerular Filtration Rate is a calculated parameterbased on serum Creatinine, patient age and sex. GFR valuesless than 60 mL/min/1.73 square meters are indicative ofChronic Kidney Disease. Values less than 15 mL/min/1.73square meters indicate Kidney failure. The calculation forGFR is based on the CKD-EPI (202) calculation. This formulais race indifferent and is the recommended formula for GFRby the National Kidney Foundation for Adults.The GFR will not calculate if the sex is unknown or if thepatient's age is <18 years. CREATININE (test code = CREAT) 0.8 mg/dL 0.6-1.3 N CALCIUM (test code = CA) 9.1 mg/dL 8.0-10.5 N [id number] 04:46:00* Test Item Value Reference Range Interpretation Comme nts PHOSPHOROUS (test code = PHOS) 3.6 MG/DL 2.5-4.9 N [id number] 04:46:00* Test Item Value Reference Range Interpretation Comme nts MAGNESIUM (test code = MAG) 2.06 mg/dL 1.6-2.6 N CALCIUM [id number] 04:46:00* Test Item Value Reference Range Interpretation Comme nts CALCIUM IONIZED (test code = MONICA) 1.14 MMOL/L 1.09-1.30 N CBC W/AUTO [id number] 04:25:00* Test Item Value Reference Range Interpretation Comme nts WHITE BLOOD CELL (test code = WBC) 7.6 x10 3/uL 4.5-11.0 N RED BLOOD CELL (test code = RBC) 5.75 x10 6/uL 4.00-5.60 H HEMOGLOBIN (test code = HGB) 16.3 g/dL 12.5-16.9 N HEMATOCRIT (test code = HCT) 48.9 % 37.5-50.7 N MEAN CELL VOLUME (test code = MCV) 85.0 fL 81.0-99.0 N MEAN CELL HGB (test code = MCH) 28.3 pg 27.0-33.0 N MEAN CELL HGB CONCETRATION (test code = MCHC) 33.3 g/dL 33.0-37.0 N RED CELL DISTRIBUTION WIDTH CV (test code = RDW) 13.7 % 11.5-14.5 N RED CELL DISTRIBUTION WIDTH SD (test code = RDW-SD) 42.5 fL 37.0-54.0 N PLATELET COUNT (test code = PLT) 210 x10 3/uL 150-400 N MEAN PLATELET VOLUME (test c ode = MPV) 10.3 fL 7.0-9.0 H NEUTROPHIL % (test code = NT%) 63.1 % 56.0-77.0 N IMMATURE GRANULOCYTE % (test code = IG%) 0.7 % 0.0-2.0 N LYMPHOCYTE % (test code = LY%) 22.3 % 14.0-32.0 N MONOCYTE % (test code = MO%) 8.0 % 4.8-9.0 N EOSINOPHIL % (test code = EO%) 4.7 % 0.3-3.7 H BASOPHIL % (test code = BA%) 1.2 % 0.0-2.0 N NUCLEATED RBC % (test code = NRBC%) 0.0 % 0-0 N NEUTROPHIL # (test code = NT#) 4.79 x10 3/uL 2.0-7.6 N IMMATURE GRANULOCYTE # (test code = IG#) 0.05 x10 3/uL 0.00-0.03 H LYMPHOCYTE # (test code = LY#) 1.69 x10 3/uL 1.0-3.8 N MONOCYTE # (test code = MO#) 0.61 x10 3/uL 0.1-0.8 N EOSINOPHIL # (test code = EO#) 0.36 x10 3/uL 0.0-0.2 H BASOPHIL # (test code = BA#) 0.09 x10 3/uL 0.0-0.2 N NUCLEATED RBC # (test code = NRBC#) 0.00 x10 3/uL 0.0-0.1 N COMMENTS: Daily while on HeparinTHROMBOPLASTIN TIME [id number] 00:44:00* Test Item Value Reference Range Interpretation Comme nts THROMBOPLASTIN TIME PARTIAL (test code = PTT) 78.6 Seconds 25.0-39.5 H Therapeutic Rang e: 50.4 - 88.3 Seconds Effective 02/04/2019 GLUCOSE [id number] 20:57:00* Test Item Value Reference Range Interpretation Comme nts GLUCOSE BEDSIDE (test code = GLUBED) 267 MG/DL 70-110 H Performed by cer yasir light rail train operator at [facility] COMPREHENSIVE METABOLIC [id number] 18:46:00* Test Item Value Reference Range Interpretation Comme nts SODIUM (test code = NA) 139 mEq/L 134-147 N POTASSIUM (test code = K) 3.3 mEq/L 3.4-5.0 L CHLORIDE (test code = CL) 111 mEq/L 100-108 H CARBON DIOXIDE (test code = CO2) 24 mEq/l 21-33 N ANION GAP (test code = GAP) 7 0-20 N GLUCOSE (test code = GLU) 219 mg/dL 77-141 H BLOOD UREA NITROGEN (test code = BUN) 22 mg/dL 7-25 N GLOMERULAR FILTRATION RATE (test code = GFR) 109.5 90-95 H The Glomerular Filtration Rate is a calculated parameterbased on serum Creatinine, patient age and sex. GFR valuesless than 60 mL/min/1.73 square meters are indicative ofChronic Kidney Disease. Values less than 15 mL/min/1.73square meters indicate Kidney failure. The calculation forGFR is based on the CKD-EPI (202) calculation. This formulais race indifferent and is the recommended formula for GFRby the National Kidney Foundation for Adults.The GFR will not calculate if the sex is unknown or if thepatient's age is <18 years. CREATININE (test code = CREAT) 0.7 mg/dL 0.6-1.3 N TOTAL PROTEIN (test code = PROT) 5.3 g/dL 6.4-8.2 L ALBUMIN (test code = ALB) 3.10 g/dL 3.4-5.0 L CALCIUM (test code = CA) 7.7 mg/dL 8.0-10.5 L BILIRUBIN TOTAL (test code = BILT) 0.50 mg/dL 0.0-1.0 N SGOT/AST (test code = AST) 24 IUnit/L 8-34 SGPT/ALT (test code = ALT) 25 IUnit/L 10-49 N ALKALINE PHOSPHATASE TOTAL (test code = ALKP) 52 IUnit/L 20-125 N PROTHROMBIN [id number] 18:36:00* Test Item Value Reference Range Interpretation Comme nts PROTHROMBIN TIME PATIENT (test code = PTP) 12.0 SECONDS 9.3-12.9 N INTERNATIONAL NORMAL RATIO (test code = INR) 1.1 0.8-1.2 N TARGET INR BY INDICATION Indication INR1. Prophylaxis of venous thrombosis 2.0 - 3.0 (orthopedic surgery), Prophylaxis of venous thrombosis (other than high-risk surgery), Treatment of Deep Vein Thrombosis/Pulmonary Embolism, Prevention of systemic embolism - Tissue heart valves, Acute Myocardial Infarction (to prevent systemic embolism), Valvular heart disease, Atrial Fibrillation, Bileaflet mechanical valve in aortic position.2. Mechanical prosthetic valves (high risk), 2.5 - 3.5 Presence of Lupus Anticoagulant or Antiphospholipid Antibodies, Prevention of systemic embolism - Acute Myocardial Infarction (to prevent recurrent infarct). THROMBOPLASTIN TIME [id number] 18:36:00* Test Item Value Reference Range Interpretation Comme nts THROMBOPLASTIN TIME PARTIAL (test code = PTT) 79.3 Seconds 25.0-39.5 H Therapeutic Rang e: 50.4 - 88.3 Seconds Effective 02/04/2019 CBC W/AUTO [id number] 18:25:00* Test Item Value Reference Range Interpretation Comme nts WHITE BLOOD CELL (test code = WBC) 8.0 x10 3/uL 4.5-11.0 N RED BLOOD CELL (test code = RBC) 5.48 x10 6/uL 4.00-5.60 N HEMOGLOBIN (test code = HGB) 15.8 g/dL 12.5-16.9 N HEMATOCRIT (test code = HCT) 45.7 % 37.5-50.7 N MEAN CELL VOLUME (test code = MCV) 83.4 fL 81.0-99.0 N MEAN CELL HGB (test code = MCH) 28.8 pg 27.0-33.0 N MEAN CELL HGB CONCETRATION (test code = MCHC) 34.6 g/dL 33.0-37.0 N RED CELL DISTRIBUTION WIDTH CV (test code = RDW) 13.9 % 11.5-14.5 N RED CELL DISTRIBUTION WIDTH SD (test code = RDW-SD) 42.0 fL 37.0-54.0 N PLATELET COUNT (test code = PLT) 208 x10 3/uL 150-400 N MEAN PLATELET VOLUME (test c ode = MPV) 10.1 fL 7.0-9.0 H NEUTROPHIL % (test code = NT%) 60.3 % 56.0-77.0 N IMMATURE GRANULOCYTE % (test code = IG%) 0.8 % 0.0-2.0 N LYMPHOCYTE % (test code = LY%) 25.0 % 14.0-32.0 N MONOCYTE % (test code = MO%) 8.0 % 4.8-9.0 N EOSINOPHIL % (test code = EO%) 4.9 % 0.3-3.7 H BASOPHIL % (test code = BA%) 1.0 % 0.0-2.0 N NUCLEATED RBC % (test code = NRBC%) 0.0 % 0-0 N NEUTROPHIL # (test code = NT#) 4.83 x10 3/uL 2.0-7.6 N IMMATURE GRANULOCYTE # (test code = IG#) 0.06 x10 3/uL 0.00-0.03 H LYMPHOCYTE # (test code = LY#) 2.00 x10 3/uL 1.0-3.8 N MONOCYTE # (test code = MO#) 0.64 x10 3/uL 0.1-0.8 N EOSINOPHIL # (test code = EO#) 0.39 x10 3/uL 0.0-0.2 H BASOPHIL # (test code = BA#) 0.08 x10 3/uL 0.0-0.2 N NUCLEATED RBC # (test code = NRBC#) 0.00 x10 3/uL 0.0-0.1 N GLUCOSE [id number] 17:07:00* Test Item Value Reference Range Interpretation Comme nts GLUCOSE BEDSIDE (test code = GLUBED) 192 MG/DL 70-110 H Performed by cer yasir light rail train operator at [facility] - XR CHEST 1 [id number] 11:18:00 [facility] 1970 Sex: M FAX: Papo Stiles MD [phone] [place]: St: ADM FAX: Jesusita Renner MD [phone] ------- Name: CHARAN RESTREPO [facility] : 1970 Age/S: 53/M [address] [place] [address] Unit #: [id number] Loc: [address] [address] Phys: Papo Mayfield MD Acct: [id number] Dis Date: Status: ADM IN PHONE #: [phone] Exam Date: 11/29/2023 0837 FAX #: [phone] Reason: Cardiac Surgery Pre Op EXAMS: CPT CODE: [id number] XR CHEST 1 V [id number] Location: [facility] EXAM: - XR CHEST 1 V DATE: 11/29/2023 4:00 AM HISTORY: Cardiac Surgery Pre Op COMPARISON: Chest x-ray 11/27/2023 FINDINGS: No airspace consolidation or pleural effusions. No pneumothorax. Prominence of the cardiac silhouette. Coronary stent in place. No bony lesions. IMPRESSION: No acute cardiopulmonary abnormality. at 1118 Reported and signed by: Radha Barfield M.D. CC: Papo Mayfield MD; Jesusita Osuna MD Technologist: RT Nuzhat(R) Trnscrd Date/Time/By: 11/29/2023 (1118) : By: ArleneMOP Orig Print D/T: S: 11/29/2023 (8742) PAGE 1 Signed Report GLUCOSE [id number] 08:28:00* Test Item Value Reference Range Interpretation Comme nts GLUCOSE BEDSIDE (test code = GLUBED) 169 MG/DL 70-110 H Performed by cer tified light rail train operator at [facility] B-TYPE NATRIURETIC [id number] 06:04:00* Test Item Value Reference Range Interpretation Comme nts B-TYPE NATRIURETIC PEPTIDE ( test code = BNP) 76.0 PG/ML 0-100 N COMPREHENSIVE METABOLIC [id number] 05:51:00* Test Item Value Reference Range Interpretation Comme nts SODIUM (test code = NA) 139 mEq/L 134-147 N POTASSIUM (test code = K) 3.9 mEq/L 3.4-5.0 N CHLORIDE (test code = CL) 111 mEq/L 100-108 H CARBON DIOXIDE (test code = CO2) 23 mEq/l 21-33 N ANION GAP (test code = GAP) 9 0-20 N GLUCOSE (test code = GLU) 191 mg/dL 77-141 H BLOOD UREA NITROGEN (test code = BUN) 26 mg/dL 7-25 H GLOMERULAR FILTRATION RATE (test code = GFR) 105.2 90-95 H The Glomerular Filtration Rate is a calculated [...] <18 years. CREATININE (test code = CREAT) 0.8 mg/dL 0.6-1.3 N TOTAL PROTEIN (test code = PROT) 5.5 g/dL 6.4-8.2 L ALBUMIN (test code = ALB) 3.10 g/dL 3.4-5.0 L CALCIUM (test code = CA) 8.0 mg/dL 8.0-10.5 N BILIRUBIN TOTAL (test code = BILT) 0.40 mg/dL 0.0-1.0 SGOT/AST (test code = AST) 15 IUnit/L 8-34 N SGPT/ALT (test code = ALT) 19 IUnit/L 10-49 N ALKALINE PHOSPHATASE TOTAL (test code = ALKP) 65 IUnit/L 20-125 N LIPID PROFILE (CORONARY RISK)2023-11-29 05:51:00* Test Item Value Reference Range Interpretation Comme nts TRIGLYCERIDES (test code = TRIG) 259 mg/dL 40-150 H CHOLESTEROL (test code = CHOL) 108 mg/dL <200 CHOLESTEROL/HDL RATIO (test code = CHOLHDL) 4.30 RATIO 3.43-4.97 N RISK ASSOCIATED WITH CHOL/HDL RATIOS: RISK MALE FEMALE1/2 AVERAGE 3.43 3.27AVERAGE 4.97 4.442X AVERAGE 9.55 7.053X AVERAGE 23.39 11.04 NOTE THAT THE REFERENCE VALUE IS RELATEDTO RISK LEVELS RECOMMENDED BY THE NATL.HEART, LUNG, AND BLOOD INST. HDL CHOLESTEROL (test code = HDL) 25.1 MG/DL 40-60 L HDL Interpreta tion < 40.0 mg/dL Low (undesirable, high risk)> 60.0 mg/dL High (desirable, low risk) Reference interval for healthy adults was established by theNational Cholesterol Education Program (NCEP). LIPOPROTEIN LDL (test code = LDL) 61.0 mg/dL 0-100 N <100 PPHKIUH95 0-129 NEAR OPTIMAL/ABOVE [id number] HIGH>XV=957 VERY HIGH*Guidelines provided by the National Cholesterol EducationProgram Adult Treatment Panel III HGBA1C%2023-11-29 05:44:00* Test Item Value Reference Range Interpretation Comme nts HGBA1C% (test code = HGBA1C%) 8.8 %A1C 4.8-6.0 H PROTHROMBIN [id number] 05:43:00* Test Item Value Reference Range Interpretation Comme nts PROTHROMBIN TIME PATIENT (test code = PTP) 11.4 SECONDS 9.3-12.9 N INTERNATIONAL NORMAL RATIO (test code = INR) 1.0 0.8-1.2 N TARGET INR BY INDICATION Indication INR1. Prophylaxis of venous thrombosis 2.0 - 3.0 (orthopedic surgery), Prophylaxis of venous thrombosis (other than high-risk surgery), Treatment of Deep Vein Thrombosis/Pulmonary Embolism, Prevention of systemic embolism - Tissue heart valves, Acute Myocardial Infarction (to prevent systemic embolism), Valvular heart disease, Atrial Fibrillation, Bileaflet mechanical valve in aortic position.2. Mechanical prosthetic valves (high risk), 2.5 - 3.5 Presence of Lupus Anticoagulant or Antiphospholipid Antibodies, Prevention of systemic embolism - Acute Myocardial Infarction (to prevent recurrent infarct). THROMBOPLASTIN TIME [id number] 05:43:00* Test Item Value Reference Range Interpretation Comme nts THROMBOPLASTIN TIME PARTIAL (test code = PTT) 75.5 Seconds 25.0-39.5 H Therapeutic Rang e: 50.4 - 88.3 Seconds Effective 02/04/2019 PLT RESPONSE TO [id number] 05:34:00* Test Item Value Reference Range Interpretation Comme nts PLT RESPONSE TO PLAVIX (test code = PLAVRES) 155 PRU 182-335 L Values <18 0 PRU are specific evidence of a P2Y12 inhibitoreffect. Testing can only be performed if patient sample values are within the following ranges: Hematocrit 33-52%, Platelet Count 119,000-502,000/uL. Patient values outside of theseranges will be rejected by our instrumentation. CBC W/AUTO [id number] 05:28:00* Test Item Value Reference Range Interpretation Comme nts WHITE BLOOD CELL (test code = WBC) 7.3 x10 3/uL 4.5-11.0 N RED BLOOD CELL (test code = RBC) 5.39 x10 6/uL 4.00-5.60 N HEMOGLOBIN (test code = HGB) 15.5 g/dL 12.5-16.9 N HEMATOCRIT (test code = HCT) 45.5 % 37.5-50.7 N MEAN CELL VOLUME (test code = MCV) 84.4 fL 81.0-99.0 N MEAN CELL HGB (test code = MCH) 28.8 pg 27.0-33.0 N MEAN CELL HGB CONCETRATION (test code = MCHC) 34.1 g/dL 33.0-37.0 N RED CELL DISTRIBUTION WIDTH CV (test code = RDW) 13.8 % 11.5-14.5 N RED CELL DISTRIBUTION WIDTH SD (test code = RDW-SD) 42.5 fL 37.0-54.0 N PLATELET COUNT (test code = PLT) 196 x10 3/uL 150-400 N MEAN PLATELET VOLUME (test c ode = MPV) 10.6 fL 7.0-9.0 H NEUTROPHIL % (test code = NT%) 57.6 % 56.0-77.0 N IMMATURE GRANULOCYTE % (test code = IG%) 0.5 % 0.0-2.0 N LYMPHOCYTE % (test code = LY%) 26.3 % 14.0-32.0 N MONOCYTE % (test code = MO%) 9.5 % 4.8-9.0 H EOSINOPHIL % (test code = EO%) 5.3 % 0.3-3.7 H BASOPHIL % (test code = BA%) 0.8 % 0.0-2.0 N NUCLEATED RBC % (test code = NRBC%) 0.0 % 0-0 N NEUTROPHIL # (test code = NT#) 4.19 x10 3/uL 2.0-7.6 N IMMATURE GRANULOCYTE # (test code = IG#) 0.04 x10 3/uL 0.00-0.03 H LYMPHOCYTE # (test code = LY#) 1.92 x10 3/uL 1.0-3.8 N MONOCYTE # (test code = MO#) 0.69 x10 3/uL 0.1-0.8 N EOSINOPHIL # (test code = EO#) 0.39 x10 3/uL 0.0-0.2 H BASOPHIL # (test code = BA#) 0.06 x10 3/uL 0.0-0.2 N NUCLEATED RBC # (test code = NRBC#) 0.00 x10 3/uL 0.0-0.1 N COVID 19 Asymptomatic IH [id number] 02:20:00* Test Item Value Reference Range Interpretation Comme nts COVID 19 Asymptomatic IH AG (test code = COVNONPUIAG) Negative Negative A negative resul t is presumptive and should be confirmedwith an FDA authorized molecular assay, if necessary forpatient management.A positive result does not rule out co-infections withother pathogens.This test detects both viable (live) and non-viable,SARS-CoV, and SARS-CoV-2. Test performance depends on theamount of virus (antigen) in the sample.This test has not been FDA cleared or approved; the test hasbeen authorized by FDA under an Emergency Use Authorization(EUA) for use by laboratories certified under the CLIA thatmeet the requirements to perform moderate, high or waivedcomplexity tests. GLUCOSE [id number] 22:14:00* Test Item Value Reference Range Interpretation Comme nts GLUCOSE BEDSIDE (test code = GLUBED) 200 MG/DL 70-110 H Performed by [facility] tified light rail train operator at [facility] THROMBOPLASTIN TIME [id number] 18:32:00* Test Item Value Reference Range Interpretation Comme nts THROMBOPLASTIN TIME PARTIAL (test code = PTT) 58.4 Seconds 25.0-39.5 H Therapeutic Rang e: 50.4 - 88.3 Seconds Effective 02/04/2019 GLUCOSE [id number] 17:20:00* Test Item Value Reference Range Interpretation Comme nts GLUCOSE BEDSIDE (test code = GLUBED) 145 MG/DL 70-110 H Performed by [facility] tified light rail train operator at [facility] THROMBOPLASTIN TIME [id number] 12:39:00* Test Item Value Reference Range Interpretation Comme nts THROMBOPLASTIN TIME PARTIAL (test code = PTT) 67.5 Seconds 25.0-39.5 H Therapeutic Rang e: 50.4 - 88.3 Seconds Effective 02/04/2019 GLUCOSE [id number] 11:29:00* Test Item Value Reference Range Interpretation Comme nts GLUCOSE BEDSIDE (test code = GLUBED) 225 MG/DL 70-110 H Performed by [facility] tified light rail train operator at [facility] - US EXTREM NON VASC [id number] 09:13:00 [facility] 1970 Sex: M Name: CHARAN RESTREPO [facility] : 1970 Age/S: 53 / M [address] [place] [address] Blvd Unit #: [id number] Loc: [place] [address] Phys: Dia Baird Acct: [id number] Dis Date: Status: ADMIN PHONE #: [phone] Exam Date: 11/27/2023 1616 FAX #: [phone] Reason: Cardiac Surgery Pre Op EXAMS: CPT CODE: [id number] US EXTREM NON VASC COMP [id number] EXAM: - US EXTREM NON VASC COMP LOCATION: C4 HISTORY: Cardiac Surgery Pre Op COMPARISON: None available. TECHNIQUE: Grayscale B-mode sonographic images of the bilateral lower extremities were obtained. FINDINGS: The right greater saphenous vein is compressible consistent with patency. It measures approximately 2 mm in diameter at a depth ranging from 2 mm to 9 mm. The left greater saphenous vein is compressible consistent with patency. It measures approximately 1 mm to 3 mm in diameter at a depth ranging from 2 mm to 8 mm. IMPRESSION: Patent bilateral greater saphenous veins. Electronically Signed by Patti Montaño on 11/28 at 0913 Reported and signed by: Yamilka Montaño M.D. CC: Papo Mayfield MD; Dia Baird; Jesusita Osuna MD Technologist: Kristel Farris [facility] Date/Time: 11/28/2023 (09) ArleneJJY Orig Print D/T: S: 11/28/2023 (2016) Probe: PAGE 1 Signed ReportGLUCOSE [id number] 07:47:00* Test Item Value Reference Range Interpretation Comme nts GLUCOSE BEDSIDE (test code = GLUBED) 169 MG/DL 70-110 H Performed by melvin cooley light rail train operator at [facility] PLT RESPONSE TO [id number] 06:12:00* Test Item Value Reference Range Interpretation Comme nts PLT RESPONSE TO PLAVIX (test code = PLAVRES) 117 PRU 182-335 L Values <18 0 PRU are specific evidence of a P2Y12 inhibitoreffect. Testing can only be performed if patient sample values are within the following ranges: Hematocrit 33-52%, Platelet Count 119,000-502,000/uL. Patient values outside of theseranges will be rejected by our instrumentation. HGBA1C%2023-11-28 06:00:00* Test Item Value Reference Range Interpretation Comme nts HGBA1C% (test code = HGBA1C%) 8.7 %A1C 4.8-6.0 H COMPREHENSIVE METABOLIC [id number] 05:53:00* Test Item Value Reference Range Interpretation Comme nts SODIUM (test code = NA) 139 mEq/L 134-147 N POTASSIUM (test code = K) 3.9 mEq/L 3.4-5.0 N CHLORIDE (test code = CL) 110 mEq/L 100-108 H CARBON DIOXIDE (test code = CO2) 25 mEq/l 21-33 N ANION GAP (test code = GAP) 8 0-20 N GLUCOSE (test code = GLU) 167 mg/dL 77-141 H BLOOD UREA NITROGEN (test code = BUN) 15 mg/dL 7-25 N GLOMERULAR FILTRATION RATE (test code = GFR) 109.5 90-95 H The Glomerular Filtration Rate is a calculated [...] <18 years. CREATININE (test code = CREAT) 0.7 mg/dL 0.6-1.3 N TOTAL PROTEIN (test code = PROT) 6.3 g/dL 6.4-8.2 L ALBUMIN (test code = ALB) 3.50 g/dL 3.4-5.0 N CALCIUM (test code = CA) 8.6 mg/dL 8.0-10.5 N BILIRUBIN TOTAL (test code = BILT) 0.70 mg/dL 0.0-1.0 SGOT/AST (test code = AST) 15 IUnit/L 8-34 N SGPT/ALT (test code = ALT) 18 IUnit/L 10-49 ALKALINE PHOSPHATASE TOTAL (test code = ALKP) 66 IUnit/L 20-125 N THROMBOPLASTIN TIME [id number] 05:48:00* Test Item Value Reference Range Interpretation Comme nts THROMBOPLASTIN TIME PARTIAL (test code = PTT) 52.1 Seconds 25.0-39.5 H Therapeutic Rang e: 50.4 - 88.3 Seconds Effective 02/04/2019 COMMENTS: DRAW PTT 6 HOURS AFTER INITIATION OF HEPARINCBC W/AUTO [id number] 05:38:00* Test Item Value Reference Range Interpretation Comme nts WHITE BLOOD CELL (test code = WBC) 8.4 x10 3/uL 4.5-11.0 N RED BLOOD CELL (test code = RBC) 5.66 x10 6/uL 4.00-5.60 H HEMOGLOBIN (test code = HGB) 16.0 g/dL 12.5-16.9 N HEMATOCRIT (test code = HCT) 47.6 % 37.5-50.7 N MEAN CELL VOLUME (test code = MCV) 84.1 fL 81.0-99.0 N MEAN CELL HGB (test code = MCH) 28.3 pg 27.0-33.0 N MEAN CELL HGB CONCETRATION (test code = MCHC) 33.6 g/dL 33.0-37.0 N RED CELL DISTRIBUTION WIDTH CV (test code = RDW) 13.8 % 11.5-14.5 N RED CELL DISTRIBUTION WIDTH SD (test code = RDW-SD) 42.0 fL 37.0-54.0 N PLATELET COUNT (test code = PLT) 202 x10 3/uL 150-400 N MEAN PLATELET VOLUME (test c ode = MPV) 10.7 fL 7.0-9.0 H NEUTROPHIL % (test code = NT%) 67.0 % 56.0-77.0 N IMMATURE GRANULOCYTE % (test code = IG%) 0.5 % 0.0-2.0 N LYMPHOCYTE % (test code = LY%) 20.7 % 14.0-32.0 N MONOCYTE % (test code = MO%) 7.8 % 4.8-9.0 N EOSINOPHIL % (test code = EO%) 3.2 % 0.3-3.7 N BASOPHIL % (test code = BA%) 0.8 % 0.0-2.0 N NUCLEATED RBC % (test code = NRBC%) 0.0 % 0-0 N NEUTROPHIL # (test code = NT#) 5.59 x10 3/uL 2.0-7.6 N IMMATURE GRANULOCYTE # (test code = IG#) 0.04 x10 3/uL 0.00-0.03 H LYMPHOCYTE # (test code = LY#) 1.73 x10 3/uL 1.0-3.8 N MONOCYTE # (test code = MO#) 0.65 x10 3/uL 0.1-0.8 N EOSINOPHIL # (test code = EO#) 0.27 x10 3/uL 0.0-0.2 H BASOPHIL # (test code = BA#) 0.07 x10 3/uL 0.0-0.2 N NUCLEATED RBC # (test code = NRBC#) 0.00 x10 3/uL 0.0-0.1 N COMMENTS: Daily while on HeparinTHROMBOPLASTIN TIME [id number] 00:16:00* Test Item Value Reference Range Interpretation Comme [facility] THROMBOPLASTIN TIME PARTIAL (test code = PTT) 47.4 Seconds 25.0-39.5 H Therapeutic Rang e: 50.4 - 88.3 Seconds Effective 02/04/2019 GLUCOSE [id number] 21:43:00* Test Item Value Reference Range Interpretation Comme nts GLUCOSE BEDSIDE (test code = GLUBED) 276 MG/DL 70-110 H Performed by cer [facility] [employer] train operator at [facility] UA RFLX MICR CULT IF [id number] 18:58:00* Test Item Value Reference Range Interpretation Comme nts UA COLOR (test code = COLU) YELLOW YEL/STRAW UA APPEARANCE (test code = APPU) CLEAR CLEAR UA GLUCOSE DIPSTICK (test co de = DGLUU) 3+ NEGATIVE A UA BILIRUBIN DIPSTICK (test code = BILU) NEGATIVE NEGATIVE UA KETONE DIPSTICK (test cod e = KETU) NEGATIVE NEGATIVE UA SPECIFIC GRAVITY (test co de = SGU) 1.023 1.005-1.030 N UA BLOOD DIPSTICK (test code = ABDI) NEGATIVE NEGATIVE UA PH DIPSTICK (test code = CHI) 5.0 5.0-7.0 N UA PROTEIN DIPSTICK (test co de = PROU) NEGATIVE NEGATIVE UA UROBILINIOGEN DIPSTICK (test code = URO) 4.0 mg/dL 0.2-1.0 A UA NITRITE DIPSTICK (test co de = CESAR) NEGATIVE NEGATIVE UA LEUKOCYTE ESTERASE DIPSTI CK (test code = LEUU) NEGATIVE NEGATIVE UA WBC (test code = WBCU) 0-3 WBC/HPF 0-3 UA RBC (test code = RBCU) 0-3 RBC/HPF 0-3 UA WBC NO REFLEX (test code = WBCUCL) 0-3 WBC/HPF 0-3 UA BACTERIA (test code = BACU) NONE SEEN /HPF NONE SEEN UA SQUAMOUS CELLS (test code = SQU) 0-5 /HPF NONE SEEN UA MUCUS (test code = MUCU) TRACE /LPF NONE SEEN Indication for culture: Dysuria/FrequencySpecimen Description: CLEAN CATCH THROMBOPLASTIN TIME [id number] 18:47:00* Test Item Value Reference Range Interpretation [facility] TH[facility] PARTIAL (test code = PTT) 42.1 Seconds 25.0-39.5 H Therapeutic Rang e: 50.4 - 88.3 Seconds Effective 02/04/2019 GLUCOSE [id number] 18:26:00* Test Item Value Reference Range Interpretation [facility]me [facility] GLUCOSE BEDSIDE (test code = GLUBED) 212 MG/DL 70-110 H Performed by melvin cooley light rail train operator at [facility] - DUP EXTRACRANIAL [id number] 16:29:00 [facility] 1970 Sex: M Name: CHARAN RESTREPO [facility] : 1970 Age/S: 53 / M [address] [place] [address] Blvd Unit #: [id number] Loc: [place] [address] Phys: Dia Baird Acct: [id number] Dis Date: Status: ADMIN PHONE #: [phone] Exam Date: 11/27/2023 1615 FAX #: [phone] Reason: Cardiac Surgery PreOp EXAMS: CPT CODE: [id number] DUP EXTRACRANIAL BRENDA [address] EXAM: Carotid ultrasound Dictation location: E5 INDICATION: Cardiac surgery preop COMPARISON: None DISCUSSION: Cerrato scale, color Doppler, andspectral waveform analysis images of the extracranial carotid vessels were performed. Right side: Plaque: None. Peak systolic velocities: CCA: 78 cm/s ICA: 54cm/s ECA: 85 cm/s ICA to CCA ratio: 0.69Vertebral artery: Antegrade flow Left side: Plaque: None. Peak systolic velocities: CCA: 100 cm/s ICA: 79 cm/s ECA: 110.5 cm/s ICA to CCA ratio: 0.79 Vertebral artery: Antegrade flow IMPRESSION: 1. Normal carotid duplex ultrasound. 2. Antegrade vertebral artery flow bilaterally. Electronically S igned by Patti Roper on 11/27/2023 at 1629 Reported and signed by: Landen Roper M.D. CC: Papo Mayfield MD; Dia Baird; Jesusita Osuna MD Technologist: Kristel Farris Trnscb Date/Time: 11/27/2023 (1628) Chayo.BC0 Orig Print D/T: S: 11/27/2023 (3696) Probe: PAGE 1 Signed Report- XR CHEST 1 [id number] 16:16:00 [facility] NIESHAName: CHARAN RESTREPO : 1970 Sex: M FAX: Papo Stiles MD [phone] [place]: St: [facility] FAX: Dia Bess [phone] FAX: Jesusita Renner MD [phone] Name: CHARAN RESTREPO [facility] : 1970 Age/S: 53/M [address] [place] [address] Unit #: [id number] Loc: .[address] [place] [address] Phys: Dia Baird Acct: [id number] Dis Date: Status: ADM IN PHONE #: [phone] Exam Date: 11/27/2023 [facility] FAX #: [phone] Reason: Cardiac Surgery Pre Op EXAMS: CPT CODE: [id number] XR CHEST 1 V 97382 Dictation location: C4. CHEST, FRONTAL VIEW HISTORY: Cardiac Surgery Pre Op FINDINGS: Since 03/18/23, the lungs remain clear. The heart size is mildly enlarged. Coronary artery stents. Minimal thoracic spondylosis. Several wiresoverlie the chest. IMPRESSION: Cardiomegaly without pulmonary edema. at 1616 Reported and signed by: Sarah Brizuela M.D. CC: Papo Mayfield MD; Dia Baird; Jesusita Osuna MD Technologist: SHEREEN Rodriguez) Trnscrd Date/Time/By: 11/27/2023 (0256) : By: ArleneSP17 Orig Print D/T: S: 11/27/2023 (2770) PAGE 1 Signed ReportTROP-I HIGH [id number] 11:52:00* Test Item Value Reference Range Interpretation [facility] TROP-I HIGH SENSITIVITY (test code = TROPIHS) 10 ng/L 0-54 N CAUTION: Units o f the current test methodology (ng/L) differfrom the prior test methodology (ng/mL) by a factor of 1000. 99th Percentile Upper Reference Limit (URL): Females: 34 ng/LMales: 54 ng/L In order to distinguish acute elevations of high sensitivitytroponin from other clinical conditions, the FourthUniversal Definition of Myocardial Infarction stressesclinical assessment and the demonstration of a rise and/orfall in serial troponin results above the URL. These results were obtained using [employer] IM TnIHreagent. Results from different methodologies should not becompared to one another as quantitative results and URLs mayvary by method. GLUCOSE [id number] 11:49:00* Test Item Value Reference Range Interpretation [facility] GLUCOSE BEDSIDE (test code = GLUBED) 248 MG/DL 70-110 H Performed by melvin cooley light rail train operator at [facility] PROTHROMBIN [id number] 11:38:00* Test Item Value Reference Range Interpretation [facility] PROTHROMBIN TIME PATIENT (test code = PTP) 12.7 SECONDS 9.3-12.9 N INTERNATIONAL NORMAL RATIO (test code = INR) 1.1 0.8-1.2 N TARGET INR BY INDICATION Indication INR1. Prophylaxis of venous thrombosis 2.0 - 3.0 (orthopedic surgery), Prophylaxis of venous thrombosis (other than high-risk surgery), Treatment of Deep Vein Thrombosis/Pulmonary Embolism, Prevention of systemic embolism - Tissue heart valves, Acute Myocardial Infarction (to prevent systemic embolism), Valvular heart disease, Atrial Fibrillation, Bileaflet mechanical valve in aortic position.2. Mechanical prosthetic valves (high risk), 2.5 - 3.5 Presence of Lupus Anticoagulant or Antiphospholipid Antibodies, Prevention of systemic embolism - Acute Myocardial Infarction (to prevent recurrent infarct). COMMENTS: IF NOT ALREADY DONE WITHIN LAST 24 HOURSTHROMBOPLASTIN TIME PARTIAL 2023-11-27 11:38:00* Test Item Value Reference Range Interpretation Comme nts THROMBOPLASTIN TIME PARTIAL (test code = PTT) 34.3 Seconds 25.0-39.5 N Therapeutic Rang e: 50.4 - 88.3 Seconds Effective 02/04/2019 COMMENTS: IF NOT ALREADY DONE WITHIN LAST 24 HOURSPLT RESPONSE TO PLAVIX 2023-11-27 11:34:00* Test Item Value Reference Range Interpretation Comme nts PLT RESPONSE TO PLAVIX (test code = PLAVRES) 131 PRU 182-335 L Values <18 0 PRU are specific evidence of a P2Y12 inhibitoreffect. Testing can only be performed if patient sample values are within the following ranges: Hematocrit 33-52%, Platelet Count 119,000-502,000/uL. Patient values outside of theseranges will be rejected by our instrumentation. CBC W/AUTO [id number] 11:24:00* Test Item Value Reference Range Interpretation Comme nts WHITE BLOOD CELL (test code = WBC) 7.9 x10 3/uL 4.5-11.0 N RED BLOOD CELL (test code = RBC) 5.42 x10 6/uL 4.00-5.60 N HEMOGLOBIN (test code = HGB) 15.6 g/dL 12.5-16.9 N HEMATOCRIT (test code = HCT) 45.7 % 37.5-50.7 N MEAN CELL VOLUME (test code = MCV) 84.3 fL 81.0-99.0 N MEAN CELL HGB (test code = MCH) 28.8 pg 27.0-33.0 N MEAN CELL HGB CONCETRATION (test code = MCHC) 34.1 g/dL 33.0-37.0 N RED CELL DISTRIBUTION WIDTH CV (test code = RDW) 13.7 % 11.5-14.5 N RED CELL DISTRIBUTION WIDTH SD (test code = RDW-SD) 41.8 fL 37.0-54.0 N PLATELET COUNT (test code = PLT) 188 x10 3/uL 150-400 N MEAN PLATELET VOLUME (test c ode = MPV) 10.6 fL 7.0-9.0 H NEUTROPHIL % (test code = NT%) 71.5 % 56.0-77.0 N IMMATURE GRANULOCYTE % (test code = IG%) 0.5 % 0.0-2.0 N LYMPHOCYTE % (test code = LY%) 17.4 % 14.0-32.0 N MONOCYTE % (test code = MO%) 7.1 % 4.8-9.0 N EOSINOPHIL % (test code = EO%) 2.9 % 0.3-3.7 N BASOPHIL % (test code = BA%) 0.6 % 0.0-2.0 N NUCLEATED RBC % (test code = NRBC%) 0.0 % 0-0 N NEUTROPHIL # (test code = NT#) 5.68 x10 3/uL 2.0-7.6 N IMMATURE GRANULOCYTE # (test code = IG#) 0.04 x10 3/uL 0.00-0.03 H LYMPHOCYTE # (test code = LY#) 1.38 x10 3/uL 1.0-3.8 N MONOCYTE # (test code = MO#) 0.56 x10 3/uL 0.1-0.8 N EOSINOPHIL # (test code = EO#) 0.23 x10 3/uL 0.0-0.2 H BASOPHIL # (test code = BA#) 0.05 x10 3/uL 0.0-0.2 N NUCLEATED RBC # (test code = NRBC#) 0.00 x10 3/uL 0.0-0.1 N COMMENTS: IF NOT ALREADY DONE WITHIN LAST 24 HOURS- CT CHEST W/O CONTRAST 2023-11-27 10:24:00 [facility] 1970 Sex: M Name: DOUGLAS,CHARAN [facility] : 1970 Age/S: 53 / M [address] [place] [address] Blvd Unit #: [id number] Loc: [place] [address] Phys: Dia Baird Acct: [id number] Dis Date: Status: ADMIN PHONE #: [phone] Exam Date: 11/27/2023 0943 FAX #: [phone] Reason: Cardiac Surgery PreOp EXAMS: CPT CODE: [id number] CT CHEST W/O CONTRAST 49033 EXAM: Chest CT without contrast Dictation location: E5 INDICATION: Cardiac surgery preop COMPARISON: Chest x-ray on 03/18/2023 TECHNIQUE: Helical CT of the chest was performed without IV contrast. 1 mm axial and coronal and sagittal reformatted images were obtained. Unless otherwise specified, incidental findings do not require dedicated imaging follow-up. DISCUSSION: Lungs and airways: Subtle diffuse centrilobular ground glass changes are seen throughout the lungs, such as on axial image 54 of series 3. A 3 mm superior segment left lower lobe nodule is seen on axial image 93. A noncalcified 3 mm left upper lobe nodule is seen on axial image 101 of series 3. A noncalcified 4 mm right upper lobe nodule is seen on axial image 87 of series 3. No consolidation, pleural effusion, or pneumothorax is seen. Heart and mediastinum: Thereare prominent LAD coronary artery calcifications and/or coronary artery stents. Faint coronary artery calcifications are seen at the right coronary artery and circumflex coronary artery. The left ventricle is mildly enlarged. There is questionable mural thrombus at the left ventricular apex on axial image 37. A small pericardial effusion is noted. The aorta is normal in caliber, with mild aortic atherosclerotic calcification. No mediastinal mass is seen. Lymph nodes: No lymphadenopathy. Bones/soft tissues: No fracture or bony mass lesion. Upper abdomen: Heterogeneous hepatic steatosis is noted. No obvious liver lesion is seen. The gallbladder is surgically absent. A 1.1 cm left adrenal adenoma has -17 Hounsfield unit attenuation; no follow-up for this is needed. IMPRESSION: 1. Prominent LAD coronary artery calcifications and/or LAD stent. Faint coronary artery calcifications are seen atthe right coronary artery and circumflex coronary artery. There is mild left PAGE 1 Signed Report (CONTINUED) Name: CHARAN RESTREPO [facility] : 1970 Age/S: 53 / M [address] [place] [address] BlvdUnit #: [id number] Loc: [place] [address] Phys: Dia Baird Acct: [id number] Dis Date:Status: ADM IN PHONE #: [phone] Exam Date: 11/27/2023 0943 FAX #: [phone] Reason: Cardiac Surgery Pre Op EXAMS: CPT CODE: [id number] CT CHEST W/O CONTRAST 65896 (Continued) ventriculomegaly, consistent with CHF, and questionable mural thrombus at the left ventricular apex; echocardiogram correlation should be considered. This was discussed by phone with the ordering clinician ROCIO palacios at 10:23 AM on 11/27/2023. 2. Subtle diffuse centrilobular groundglass nodules throughout the lungs. This is consistent with an inflammatory process, and could potentially be seen with smoking orenvironmental exposure. 3. There are 3 noncalcified nodules, located in the left upper lobe, left lower lobe, and right middle lobe. These measure up to 4 mm. In the absence of a known cancer history, if the patient is low risk, no follow-up is recommended. If the patient is high risk, low dose CT chest follow-up in 12 months is optional based on 2017 Fleischner Society criteria. FOR INTERNAL CODING PURPOSES ONLY RESULT CODE: CVRMD One or more of the following dose reduction techniques were used: Automated exposure control, adjustment of the mA and/or kV according to patient size, and/or utilization of iterative reconstruction technique. DLP: 170 mGy-cm CTDI: 4.5 mGy at 1024 Reportedand signed by: Landen Roper M.D. CC: Papo Mayfield MD; Dia Baird; Jesusita Maciel Technologist:Jorge A Pollard, RT(R)(CT) CTDI: DLP: Trnscb Date/Time: 11/27/2023 (1024) t.SDR.BC0 Orig Print D/T: S: 11/27/2023 (4503) PAGE 2 Signed ReportGLUCOSE [id number] 07:44:00* Test Item Value Reference Range Interpretation Comme nts GLUCOSE BEDSIDE (test code = GLUBED) 139 MG/DL 70-110 H Performed by cer yasir light rail train operator at [facility] B-TYPE NATRIURETIC [id number] 07:32:00* Test Item Value Reference Range Interpretation Comme nts B-TYPE NATRIURETIC PEPTIDE ( test code = BNP) 93.0 PG/ML 0-100 N [id number] 07:10:00* Test Item Value Reference Range Interpretation Comme nts HGBA1C% (test code = HGBA1C%) 8.8 %A1C 4.8-6.0 H COMPREHENSIVE METABOLIC [id number] 07:08:00* Test Item Value Reference Range Interpretation Comme nts SODIUM (test code = NA) 138 mEq/L 134-147 N POTASSIUM (test code = K) 3.9 mEq/L 3.4-5.0 N CHLORIDE (test code = CL) 110 mEq/L 100-108 H CARBON DIOXIDE (test code = CO2) 26 mEq/l 21-33 N ANION GAP (test code = GAP) 6 0-20 N GLUCOSE (test code = GLU) 137 mg/dL 77-141 N BLOOD UREA NITROGEN (test code = BUN) 11 mg/dL 7-25 N GLOMERULAR FILTRATION RATE (test code = GFR) 105.2 90-95 H The Glomerular Filtration Rate is a calculated [...] <18 years. CREATININE (test code = CREAT) 0.8 mg/dL 0.6-1.3 N TOTAL PROTEIN (test code = PROT) 6.1 g/dL 6.4-8.2 L ALBUMIN (test code = ALB) 3.60 g/dL 3.4-5.0 N CALCIUM (test code = CA) 9.1 mg/dL 8.0-10.5 N BILIRUBIN TOTAL (test code = BILT) 1.00 mg/dL 0.0-1.0 N SGOT/AST (test code = AST) 16 IUnit/L 8-34 N SGPT/ALT (test code = ALT) < 7 IUnit/L 10-49 L ALKALINE PHOSPHATASE TOTAL (test code = ALKP) 66 IUnit/L 20-125 N LIPID PROFILE (CORONARY RISK)2023-11-27 07:08:00* Test Item Value Reference Range Interpretation Comme nts TRIGLYCERIDES (test code = TRIG) 97 mg/dL 40-150 N CHOLESTEROL (test code = CHOL) 123 mg/dL <200 CHOLESTEROL/HDL RATIO (test code = CHOLHDL) 4.17 RATIO 3.43-4.97 N RISK ASSOCIATED WITH CHOL/HDL RATIOS: RISK MALE FEMALE1/2 AVERAGE 3.43 3.27AVERAGE 4.97 4.442X AVERAGE 9.55 7.053X AVERAGE 23.39 11.04 NOTE THAT THE REFERENCE VALUE IS RELATEDTO RISK LEVELS RECOMMENDED BY THE NATL.HEART, LUNG, AND BLOOD INST. HDL CHOLESTEROL (test code = HDL) 29.5 MG/DL 40-60 L HDL Interpreta tion < 40.0 mg/dL Low (undesirable, high risk)> 60.0 mg/dL High (desirable, low risk) Reference interval for healthy adults was established by theNational Cholesterol Education Program (NCEP). LIPOPROTEIN LDL (test code = LDL) 79.0 mg/dL 0-100 N <100 [id number] 0-129 NEAR OPTIMAL/ABOVE [id number] HIGH>LI=410 VERY HIGH*Guidelines provided by the National Cholesterol EducationProgram Adult Treatment Panel III CBC W/AUTO [id number] 06:59:00* Test Item Value Reference Range Interpretation Comme nts WHITE BLOOD CELL (test code = WBC) 8.9 x10 3/uL 4.5-11.0 N RED BLOOD CELL (test code = RBC) 5.54 x10 6/uL 4.00-5.60 N HEMOGLOBIN (test code = HGB) 15.9 g/dL 12.5-16.9 N HEMATOCRIT (test code = HCT) 47.3 % 37.5-50.7 N MEAN CELL VOLUME (test code = MCV) 85.4 fL 81.0-99.0 N MEAN CELL HGB (test code = MCH) 28.7 pg 27.0-33.0 N MEAN CELL HGB CONCETRATION (test code = MCHC) 33.6 g/dL 33.0-37.0 N RED CELL DISTRIBUTION WIDTH CV (test code = RDW) 13.7 % 11.5-14.5 N RED CELL DISTRIBUTION WIDTH SD (test code = RDW-SD) 42.6 fL 37.0-54.0 N PLATELET COUNT (test code = PLT) 186 x10 3/uL 150-400 N MEAN PLATELET VOLUME (test c ode = MPV) 10.4 fL 7.0-9.0 H NEUTROPHIL % (test code = NT%) 71.9 % 56.0-77.0 N IMMATURE GRANULOCYTE % (test code = IG%) 0.6 % 0.0-2.0 N LYMPHOCYTE % (test code = LY%) 16.0 % 14.0-32.0 N MONOCYTE % (test code = MO%) 7.3 % 4.8-9.0 N EOSINOPHIL % (test code = EO%) 3.3 % 0.3-3.7 N BASOPHIL % (test code = BA%) 0.9 % 0.0-2.0 N NUCLEATED RBC % (test code = NRBC%) 0.0 % 0-0 N NEUTROPHIL # (test code = NT#) 6.36 x10 3/uL 2.0-7.6 N IMMATURE GRANULOCYTE # (test code = IG#) 0.05 x10 3/uL 0.00-0.03 H LYMPHOCYTE # (test code = LY#) 1.42 x10 3/uL 1.0-3.8 N MONOCYTE # (test code = MO#) 0.65 x10 3/uL 0.1-0.8 N EOSINOPHIL # (test code = EO#) 0.29 x10 3/uL 0.0-0.2 H BASOPHIL # (test code = BA#) 0.08 x10 3/uL 0.0-0.2 N NUCLEATED RBC # (test code = NRBC#) 0.00 x10 3/uL 0.0-0.1 N PROTHROMBIN [id number] 06:53:00* Test Item Value Reference Range Interpretation [facility] PROTHROMBIN TIME PATIENT (test code = PTP) 12.2 SECONDS 9.3-12.9 N INTERNATIONAL NORMAL RATIO (test code = INR) 1.1 0.8-1.2 N TARGET INR BY INDICATION Indication INR1. Prophylaxis of venous thrombosis 2.0 - 3.0 (orthopedic surgery), Prophylaxis of venous thrombosis (other than high-risk surgery), Treatment of Deep Vein Thrombosis/Pulmonary Embolism, Prevention of systemic embolism - Tissue heart valves, Acute Myocardial Infarction (to prevent systemic embolism), Valvular heart disease, Atrial Fibrillation, Bileaflet mechanical valve in aortic position.2. Mechanical prosthetic valves (high risk), 2.5 - 3.5 Presence of Lupus Anticoagulant or Antiphospholipid Antibodies, Prevention of systemic embolism - Acute Myocardial Infarction (to prevent recurrent infarct). THROMBOPLASTIN TIME [id number] 06:53:00* Test Item Value Reference Range Interpretation [facility] THROMBOPLASTIN TIME PARTIAL (test code = PTT) 32.7 Seconds 25.0-39.5 N Therapeutic Rang e: 50.4 - 88.3 Seconds Effective 02/04/2019 GLUCOSE BEDSIDE [id number] 10:20:00* Test Item Value Reference Range Interpretation Comme [facility] GLUCOSE BEDSIDE TESTING (shanna t code = GLUBED) 215 MG/DL 60-99 H BASIC METABOLIC [id number] 07:35:00* Test Item Value Reference Range Interpretation [...] code = CA) 8.6 MG/DL 8.4-10.2 N [id number] 07:35:00* Test Item Value Reference Range Interpretation Comme nts MAGNESIUM (test code = MAG) 2.0 MG/DL 1.6-2.3 N GLUCOSE BEDSIDE [id number] 06:26:00* Test Item Value Reference Range Interpretation Comme nts GLUCOSE BEDSIDE TESTING (shanna t code = GLUBED) 187 MG/DL 60-99 H GLUCOSE BEDSIDE [id number] 04:13:00* Test Item Value Reference Range Interpretation Comme nts GLUCOSE BEDSIDE TESTING (shanna t code = GLUBED) 149 MG/DL 60-99 H GLUCOSE BEDSIDE [id number] 23:41:00* Test Item Value Reference Range Interpretation Comme nts GLUCOSE BEDSIDE TESTING (shanna t code = GLUBED) 162 MG/DL 60-99 H GLUCOSE BEDSIDE [id number] 21:11:00* Test Item Value Reference Range Interpretation Comme nts GLUCOSE BEDSIDE TESTING (shanna t code = GLUBED) 203 MG/DL 60-99 H GLUCOSE BEDSIDE [id number] 19:59:00* Test Item Value Reference Range Interpretation Comme nts GLUCOSE BEDSIDE TESTING (shanna t code = GLUBED) 219 MG/DL 60-99 H GLUCOSE BEDSIDE [id number] 19:59:00* Test Item Value Reference Range Interpretation Comme nts GLUCOSE BEDSIDE TESTING (shanna t code = GLUBED) 253 MG/DL 60-99 H GLUCOSE BEDSIDE [id number] 19:58:00* Test Item Value Reference Range Interpretation Comme nts GLUCOSE BEDSIDE TESTING (shanna t code = GLUBED) 247 MG/DL 60-99 H HEPATIC FUNCTION [id number] 11:51:00* Test Item Value Reference Range Interpretation [...] performed in our lab.Interference testing performed at [facility] determined thatEltrombopag does interfere with Vitros [...] : add on to blood in labURINALYSIS [id number] 04:46:00* Test Item Value Reference Range Interpretation [...] NEGATIVE SOURCE OF URINE: CLEAN CATCHGLYCOSYLATED HEMOGLOBIN [id number] 04:06:00* Test Item Value Reference Range Interpretation [...] MBG) 220 MG/DL 70-110 H BASIC METABOLIC [id number] 03:58:00* Test Item Value Reference Range Interpretation [...] code = CA) 8.5 MG/DL 8.4-10.2 N [id number] 03:58:00* Test Item Value Reference Range Interpretation Comme nts MAGNESIUM (test code = MAG) 2.3 MG/DL 1.6-2.3 N CBC W/AUTO [id number] 03:45:00* Test Item Value Reference Range Interpretation [...] code = NRBC#) 0.00 K/mm3 0.0-0.1 N [id number] 01:08:00* Test Item Value Reference Range Interpretation Comme nts TROPONIN-I (test code = TROPI) 3.570 NG/ML 0.012-0.033 CALLED TO [facility] TOÑA A & READBACK ON 03/19/23 AT 0107 BY Barrett Wang [id number] 22:08:00* Test Item Value Reference Range Interpretation Comme nts TROPONIN-I (test code = TROPI) 3.700 NG/ML 0.012-0.033 HH CALLED TO VLADMIIR MG. & READBACK ON 03/18/23 AT 2202 BY Michael Umana GLUCOSE BEDSIDE [id number] 20:24:00* Test Item Value Reference Range Interpretation [facility] GLU[facility]SE BEDSIDE TESTING (shanna t code = GLUBED) 211 MG/DL 60-99 H LIPOPROTEIN LDL [id number] 19:36:00* Test Item Value Reference Range Interpretation [facility] LIPOPROTEIN LDL DIRECT (test code = LDLDIR) 112 mg/dL 100-129 N ========= R eference Interval: mg/dL mmol/L -----Optimal <100 <2.6Near/above optimal 100-129 2.6-3.3Borderline High 130-159 3.4-4.1High 160-189 4.1-4.9Very High >=190 >=4.9========= This LDL result is a direct measurement.======== = [id number] 19:36:00* Test Item Value Reference Range Interpretation [facility]me [facility] TROPONIN-I (test code = TROPI) 3.780 NG/ML 0.012-0.033 CALLED TO CHANTAL Burger& READBACK ON 03/18/23 AT 1849 BY Michael Umana - XR CHEST [id number] 19:06:00 [facility] 1970 Sex: M Patient Name: CHARAN RESTREPO Unit No: [id number] EXAMS: CPT CODE: [id number] XR CHEST 1V 74209 LOCATION: Q15 HISTORY: 52-year-old male, history of [...] [place] Ann RT Transcrpt Date/Tm/Trnsp: 03/18/2023 (1905) DarinelR.RLA2 Orig Print D/T: S: 03/18/2023 (1908) [facility] NAME: CHARAN RESTREPO [address] PHYS: [email or web address] [place] [address] : 1970 AGE: 52 SEX: M LOC: Z.I13 A PHONE #: [phone] EXAM DATE: 03/18/2023 STATUS: ADM IN FAX #: [phone] RADIOLOGY NO: PAGE 1 Signed ReportNT PRO-BRAIN [...] other causes* of NT-proBNP elevation. GLYCOSYLATED HEMOGLOBIN [id number] 18:36:00* Test Item Value Reference Range Interpretation [...] CK) 274 UNITS/L 55-170 H COMPREHENSIVE METABOLIC [id number] 18:30:00* Test Item Value Reference Range Interpretation [...] code = PROT) 6.1 G/DL 6.2-7.6 L Biorasis Clinical D iagnQualgenix has made us aware of newinformation regarding the potential interference ofEltrombopag (a bone marrow stimulant used to treatthrombocytonmenia and aplastic anemia) with specific assayson the Xenex Disinfection Servicess 5600 of which Total Protein is one of thoseassays performed in our lab.Interference testing performed at [facility] determined thatEltrombopag does interfere with Vitros Total [...] code = ALKP) 59 UNITS/L 38-126 N [id number] 18:30:00* Test Item Value Reference Range Interpretation Comme nts PHOSPHOROUS (test code = PHOS) 3.8 MG/DL 2.5-4.5 N [id number] 18:30:00* Test Item Value Reference Range Interpretation Comme nts MAGNESIUM (test code = MAG) 2.3 MG/DL 1.6-2.3 N CBC W/O [id number] 18:09:00* Test Item Value Reference Range Interpretation [...] code = NRBC#) 0.00 K/mm3 0.0-0.1 N [id number] 16:25:00* Test Item Value Reference Range Interpretation Comme nts ACT-ISTAT (test code = ACTI) 275 SEC 74-137 H [id number] 15:43:00* Test Item Value Reference Range Interpretation Comme nts ACT-ISTAT (test code = ACTI) 281 SEC 74-137 H Notes Date/Time Note Provider Source 2023-12-03 14:50:00 [id number]:50:00 [facility] SummaryREPORT#:[id number] REPORT STATUS: SignedREPORT INITIALIZATION DATE:12/03/23 TIME: 145 PATIENT: CHARAN RESTREPO UNIT #: [id number]#: [id number] [address] [birth year] AGE: 53 SEX: M ATTEND: Papo Mayfield MDADM AUTHOR: Marilyn Mayfield MDREPT SERVICE DT/TIME: 12/03/23 1450* ALL edits or amendments must be made on the electronic/computer document * General InformationDate of admission:Observation Start Date: Date of admission: 11/27/23 Discharge date: 12/03/23Admission diagnosis: CAD with stents DMHTNHLD Discharge diagnosis: CAD with stents DMHTNHLDLV thrombus Hospital course: CAD with stents DMHTNHLD tele cardiology consult CV surgeon -- work up for CABG HTN-- BP well control -- continue metoprololDM-- sliding scale -- Hba1c HLD--continue lipitor will follow the patient and manage DM with you during the hospital stay 11/28- he complaint of cp -- monitor in ccu - manage as cardiology -- pre OP for CABG -- may be this week as surgeon -- DM -- not well control -- adjust insulin 11/29 Pending CABG. Continue monitoring in CCU.11/30 On heparin. Pending surgery. 12/01- he found thrombus in ANAND yesterday -- surgery was cancelled -- on eliquis now -- he is hemodynamic stable 12/02- on nitro drip -- he is hemodynamic stable -- continue current management he is stable to discharge home . he will follow up with cardiology in 2 weeks Consultants: cardiology, cardiovascular surgery, critical/passenger conductor, hospitalist Free Text DxA P NotesFree text DxA P notes: CAD with stents DMHTNHLD tele cardiology consult CV surgeon -- work up for CABG HTN-- BP well control -- continue metoprololDM-- sliding scale -- Hba1c HLD--continue lipitor will follow the patient and manage DM with you during the hospital stay 11/28- he complaint of cp -- monitor in ccu - manage as cardiology -- pre OP for CABG -- may be this week as surgeon -- DM -- not well control -- adjust insulin 11/29 Pending CABG. Continue monitoring in CCU.11/30 On heparin. Pending surgery. 12/01- he found thrombus in ANAND yesterday -- surgery was cancelled -- on eliquis now -- he is hemodynamic stable 12/02- on nitro drip -- he is hemodynamic stable -- continue current management Med Rec Med RecDischarge meds:Continue taking these medications:ATORVASTATIN (LIPITOR) 40 MG TAB 40 MILLIGRAM ORAL BEDTIME. Qty = 30 METOPROLOL SUCC XL (TOPROL XL) 25 MG TAB.SR.24H 25 MILLIGRAM ORAL DAILY. Qty = 30 ASPIRIN (ASPIRIN) 81 MG TAB.CHEW 81 MILLIGRAM ORAL DAILY. Qty = 30 Start taking the following new medications:APIXABAN (ELIQUIS) 5 MG TAB 5 MILLIGRAM ORAL TWICE DAILY. Qty = 60 No Refills NITROGLYCERIN (NITROSTAT) 0.4 MG TAB.SL 0.4 MILLIGRAM SUBLINGUAL EVERY 5 MINUTES NEEDED. as needed for CHEST PAIN Qty = 30 No Refills INSULIN GLARGINE (LANTUS SOLOSTAR (15mL)) 100 UNIT/ML (3 ML) PEN.INJCTR 20 UNITS SUBCUTANEOUS BEDTIME. Qty = 15 No Refills ObjectiveVS/I OLast Documented: Result Date Time Temp 36.6 12/03 1200 Pulse Ox 96 12/03 1000 B/P 141/67 12/03 1000 B/P Mean 96 12/03 1000 Pulse 75 12/03 1000 Resp 16 12/03 1000 O2 Delivery Room air 12/01 2247 FiO2 21 12/01 1931 O2 Flow Rate 2 11/27 0900 24 hour I O ending at 0700: 12/03 0700 12/02 1900 Intake Total 676.70 734.00 Output Total Balance 676.70 734.00 Intake, IV 10.70 14.00 Intake, Oral 666 720 Number 1 Bowel Movements Number Voids 6 6 Patient 85.8 kg Weight Weight Bed scale Measurement Method General appearance: alert, awake, orientedHead/Eyes: atraumatic, normal conjunctiva/sclera, normal eyelids/periorb.Neck: full range of motion, non-tender, no JVDCardiovascular: normal heart sounds, regular rate rhythmRespiratory: aerating well, clear to auscultationAbdomen: non-tender, normal bowel sounds, soft, no distentionExtremities: moves all, no calf tenderness, no edemaNeuro/DRAWER MAKER: alert, oriented X 3, CNII-XII intact, normal speech, no motor deficits, no sensory deficitsSkin: dry, intact ResultsFindings/Data:Laboratory Tests: 12/03 12/03 12/03 12/02 1133 0714 0440 2043 Chemistry Sodium (134 - 147 mEq/L) 138 Potassium (3.4 - 5.0 mEq/L) 4.0 Chloride (100 - 108 mEq/L) 108 Carbon Dioxide (21 - 33 mEq/l) 26 Anion Gap (0 - 20) 9 BUN (7 - 25 mg/dL) 16 Creatinine (0.6 - 1.3 mg/dL) 0.8 Glomerular Filtr Rate (90 - 95) 105.2 H Glucose (77 - 141 mg/dL) 187 H POC Glucose (70 - 110 MG/DL) 207 H 228 H 305 H Calcium (8.0 - 10.5 mg/dL) 9.1 Ionized Calcium Izna (1.09 - 1.30 MMOL/L) 1.13 Phosphorus (2.5 - 4.9 MG/DL) 4.0 Magnesium (1.6 - 2.6 mg/dL) 1.87 Hematology WBC (4.5 - 11.0 x10 3/uL) 8.0 RBC (4.00 - 5.60 x10 6/uL) 5.26 Hgb (12.5 - 16.9 g/dL) 15.1 Hct (37.5 - 50.7 %) 44.3 MCV (81.0 - 99.0 fL) 84.2 MCH (27.0 - 33.0 pg) 28.7 MCHC (33.0 - 37.0 g/dL) 34.1 RDW (11.5 - 14.5 %) 13.5 Plt Count (150 - 400 x10 3/uL) 189 MPV (7.0 - 9.0 fL) 10.4 H Neut % (Auto) (56.0 - 77.0 %) 60.9 Lymph % (Auto) (14.0 - 32.0 %) 22.2 Fisher % (Auto) (4.8 - 9.0 %) 9.9 H Eos % (Auto) (0.3 - 3.7 %) 4.4 H Baso % (Auto) (0.0 - 2.0 %) 1.3 Neut # (Auto) (2.0 - 7.6 x10 3/uL) 4.87 Lymph # (Auto) (1.0 - 3.8 x10 3/uL) 1.77 Fisher # (Auto) (0.1 - 0.8 x10 3/uL) 0.79 Eos # (Auto) (0.0 - 0.2 x10 3/uL) 0.35 H Baso # (Auto) (0.0 - 0.2 x10 3/uL) 0.10 Abs Immat Gran (auto) (0.00 - 0.03 x10 3/uL) 0.10 H Immature Gran % (0.0 - 2.0 %) 1.3 Nucleated RBC % (0 - 0 %) 0.0 Nucleated RBCs # (Man) (0.0 - 0.1 x10 3/uL) 0.00 Discharge Instructions PCPDischarge to: Home/Self CareAdditional Discharge Routines: PCP Follow-Up, Paragliding Instructor Follow-UpDiet: Diabetic, CardiacActivity: As Tolerated Follow-up AppointmentsPCP follow-up: PCP: Jesusita Osuna MD PCP follow up timeframe: In 1-2 weeks Special instructions:CALL FOR AN APPOINTMENT FOR FOLLOW UP.Consulting provider 1: Provider 1: Merlene Rutherford MD Specialty: CardiologyInterventional Special instructions:CALL FOR AN APPOINTMENT Quality: Discharge Current MedicationsCurrent medication review: Current Medications Sig/Marie Start time Last Medication Dose Route Stop Time Status Admin Atorvastatin Calcium 40 MG BEDTIME 11/27 2100 AC PO 12/26 2059 Insulin Human Lispro 0 AC HS 11/27 1630 AC 11/27 SUBQ 02/24 1629 1625 Mupirocin 1 APPLIC BID 11/27 1400 AC 11/27 NASAL 12/01 2101 1348 Dextrose/Water 125 ML ASDIR PRN 11/27 1300 CKD IV 02/24 1259 Dextrose/Water 250 ML ASDIR PRN 11/27 1300 CKD IV 02/24 1259 Glucagon 1 MG ASDIR PRN 11/27 1300 AC IM 02/24 1259 Heparin Sodium 0 ASDIR PRN 11/27 1015 AC IV 02/24 1014 Heparin Sodium 500 ML ASDIR 11/27 1015 CKD 11/27 (Porcine) IV 02/24 1014 1234 Nicotine 7 MG DAILY 11/27 1015 CKD 11/27 TRANSDERM 02/24 1014 1247 Metoprolol Succinate 25 MG DAILY 11/27 0900 AC / PO 02/24 0859 0838 Nitroglycerin 0.4 MG Q5M PRN PRN 11/27 0715 AC 11/27 SL 1437 Perflutren Lipid 0 .STK-MED ONE 11/27 0653 DC Microsphere IV Acetaminophen 650 MG Q6H PRN PRN 11/27 0200 AC PO 02/24 0159 Morphine Sulfate 2 MG Q4H PRN PRN 11/27 0200 AC 11/27 IV 12/02 0159 1520 Home Medications:ATORVASTATIN (LIPITOR) 40 MG PO BEDTIME METOPROLOL SUCC XL (TOPROL XL) 25 MG PO DAILY ASPIRIN 81 MG PO DAILY I attest that the foregoing medication list in the medical record is true, accurate, and complete to the best of my knowledge. at 1851 [facility] #:[id number] OF REPORTDSDischarge [id number]:50:00G.[id number] ailable for patient [id number]:51:48 [facility] 2023-12-03 12:42:00 [id number]/JlJWi [id number]+JrG9212-72-26M21:42:00 [facility]Card[facility] ProgREPORT#:[id number] REPORT STATUS: SignedREPORT INITIALIZATION DATE:12/03/23 TIME: 1241 PATIENT: CHARAN RESTREPO UNIT #: [id number]#: [id number] [address] [birth year] AGE: 53 SEX: M ATTEND: Papo Mayfield MDADM AUTHOR: Papo Mayfield MDREPT SERVICE DT/TIME: 12/03/23 1242* ALL edits or amendments must be made on the electronic/computer document * SubjectiveChief complaint:chest pain CAD pre op CABG eval Review of SystemsConstitutional:Denies: chills, fatigue, fever. Skin:Denies: abrasion, bruising, contusion. Allergy/Immun:Denies: allergic reaction, anaphylaxis, hives. ENT:Denies: ear drainage, ear ringing, earache. Respiratory:Denies: DWYER (dyspnea on exertion), pneumonia, SOB. Cardiovascular:Reports: chest pain. Denies: palpitations. :Denies: dysuria, flank pain. Musculoskeletal:Denies: arthritis, extremity pain, joint pain. Neuro:Denies: confusion, dizziness, seizure, syncope. Psych:Denies: agitation, anxiety. All systems rev neg: except as marked Objective GeneralVS/I OLast Documented: Result Date Time Pulse Ox 96 12/03 1000 B/P 141/67 12/03 1000 B/P Mean 96 12/03 1000 Pulse 75 / 1000 Resp 16 12/03 1000 Temp 36.5 12/03 0800 O2 Delivery Room air 12/01 2247 FiO2 21 12/01 1931 O2 Flow Rate 2 11/27 0900 24 hour I O ending at 0700: 12/03 0700 12/02 1900 Intake Total 676.70 734.00 Output Total Balance 676.70 734.00 Intake, IV 10.70 14.00 Intake, Oral 666 720 Number 1 Bowel Movements Number Voids 6 6 Patient 85.8 kg Weight Weight Bed scale Measurement Method PATIENT WEIGHT: Weight (lb): 189Weight (oz): 2.51Weight (kg): 85.800 Dietitian Nutrition assessmentThe data set between the solid lines has been imported from the dietitian's assessment. BMI Calculated: 27.1Nutrition related diagnosis: Nutrition diagnosis details: Nutrition problem: Nutrition etiology: Nutrition signs and symptoms: Nutrition prescription: Dietitian name: Assessment completed: Physical ExamGeneral appearance: alert, awake, orientedHEENT: anicteric, mucosal membranes moistNeck: full range of motion, non-tenderCardiovascular: normal heart sounds, regular rate rhythmRespiratory: aerating well, symmetric expansionAbdomen: soft, non-tenderGenitourinary: no bladder distention, no flank pain, no foleyExtremities: dry, moves allMusculoskeletal: full range of motionNeuro/DRAWER MAKER: alert, oriented X 3Skin: dry, intact, normal temperaturePsychiatry: normal affect, normal mood Current MedicationsMedications:Active Meds + DC'd Last 24 HrsInsulin Glargine (Semglee) 15 UNIT BID SUBQ Magnesium Sulfate (MAGNESIUM SULFATE 2GM/SWFI 50ML) 50 ML ONCE ONE IV (DC) Hydrocodone Bitart/Acetaminophen (NORCO 10/325) 1 TAB Q6H PRN PRN PO Insulin Glargine (Semglee) 10 UNIT BID SUBQ (DC) Nitroglycerin/Dextrose (NITROGLYCERIN 50,000MCG/D5W 250ML) 250 ML ASDIR IV Insulin Human Lispro (HUMALOG) 0 AC HS SUBQ Famotidine (PEPCID) 20 MG BID PO (DC) Apixaban (ELIQUIS 5MG TABLET) 5 MG BID PO Nitroglycerin (NITROSTAT) 0.4 MG Q5M PRN PRN SL Sodium Chloride (SODIUM CHLORIDE) 20 ML ASDIR IV Morphine Sulfate (morphine SULFATE) 2 MG Q4H PRN PRN IV Acetaminophen (TYLENOL EXTRA STRENGTH) 1,000 MG PREOP ONCALL PO (DC) Gabapentin (NEURONTIN) 200 MG PREOP ONCALL PO (CKD) Aspirin (ASPIRIN) 81 MG DAILY PO Hydrocodone Bitart/Acetaminophen (NORCO 10/325) 1 TAB TID PRN PRN PO (DC) Atorvastatin Calcium (LIPITOR) 40 MG BEDTIME PO Dextrose/Water (DEXTROSE 10% IN WATER) 125 ML ASDIR PRN IV (CKD) Dextrose/Water (DEXTROSE 10% IN WATER) 250 ML ASDIR PRN IV (CKD) Glucagon (GLUCAGON) 1 MG ASDIR PRN IM Nicotine (NICODERM) 7 MG DAILY TRANSDERM (CKD) Metoprolol Succinate (TOPROL XL) 25 MG DAILY PO Acetaminophen (TYLENOL) 650 MG Q6H PRN PRN PO ResultsFindings/Data:Laboratory Tests 12/03 12/03 12/03 12/02 12/02 1133 0714 0440 2043 1624Chemistry Sodium (134 - 147 mEq/L) 138 Potassium (3.4 - 5.0 mEq/L) 4.0 Chloride (100 - 108 mEq/L) 108 Carbon Dioxide (21 - 33 mEq/l) 26 Anion Gap (0 - 20) 9 BUN (7 - 25 mg/dL) 16 Creatinine (0.6 - 1.3 mg/dL) 0.8 Glomerular Filtr Rate (90 - 95) 105.2 H Glucose (77 - 141 mg/dL) 187 H POC Glucose (70 - 110 MG/DL) 207 H 228 H 305 H 228 H Calcium (8.0 - 10.5 mg/dL) 9.1 Ionized Calcium Zina (1.09 - 1.30 MMOL/L) 1.13 Phosphorus (2.5 - 4.9 MG/DL) 4.0 Magnesium (1.6 - 2.6 mg/dL) 1.87 Laboratory Tests 12/03 0440 Hematology WBC (4.5 - 11.0 x10 3/uL) 8.0 RBC (4.00 - 5.60 x10 6/uL) 5.26 Hgb (12.5 - 16.9 g/dL) 15.1 Hct (37.5 - 50.7 %) 44.3 MCV (81.0 - 99.0 fL) 84.2 MCH (27.0 - 33.0 pg) 28.7 MCHC (33.0 - 37.0 g/dL) 34.1 RDW (11.5 - 14.5 %) 13.5 Plt Count (150 - 400 x10 3/uL) 189 MPV (7.0 - 9.0 fL) 10.4 H Neut % (Auto) (56.0 - 77.0 %) 60.9 Lymph % (Auto) (14.0 - 32.0 %) 22.2 Fisher % (Auto) (4.8 - 9.0 %) 9.9 H Eos % (Auto) (0.3 - 3.7 %) 4.4 H Baso % (Auto) (0.0 - 2.0 %) 1.3 Neut # (Auto) (2.0 - 7.6 x10 3/uL) 4.87 Lymph # (Auto) (1.0 - 3.8 x10 3/uL) 1.77 Fisher # (Auto) (0.1 - 0.8 x10 3/uL) 0.79 Eos # (Auto) (0.0 - 0.2 x10 3/uL) 0.35 H Baso # (Auto) (0.0 - 0.2 x10 3/uL) 0.10 Abs Immat Gran (auto) (0.00 - 0.03 x10 3/uL) 0.10 H Immature Gran % (0.0 - 2.0 %) 1.3 Nucleated RBC % (0 - 0 %) 0.0 Nucleated RBCs # (Man) (0.0 - 0.1 x10 3/uL) 0.00 Results: labs reviewed, vital signs stable, current med profile rev'd Quality: Trauma Gen Surg Current MedicationsCurrent medication review: Current Medications Sig/Marie Start time Last Medication Dose Route Stop Time Status Admin Atorvastatin Calcium 40 MG BEDTIME 11/27 2100 AC PO 12/26 2059 Insulin Human Lispro 0 AC HS 11/27 1630 AC 11/27 SUBQ 02/24 1629 1625 Mupirocin 1 APPLIC BID 11/27 1400 AC 11/27 NASAL 12/01 2101 1348 Dextrose/Water 125 ML ASDIR PRN 11/27 1300 CKD IV 02/24 1259 Dextrose/Water 250 ML ASDIR PRN 11/27 1300 CKD IV 02/24 1259 Glucagon 1 MG ASDIR PRN 11/27 1300 AC IM 02/24 1259 Heparin Sodium 0 ASDIR PRN 11/27 1015 AC IV 02/24 1014 Heparin Sodium 500 ML ASDIR 11/27 1015 CKD 11/27 (Porcine) IV 02/24 1014 1234 Nicotine 7 MG DAILY 11/27 1015 CKD 11/27 TRANSDERM 02/24 1014 1247 Metoprolol Succinate 25 MG DAILY 11/27 0900 AC 11/27 PO 02/24 0859 0838 Nitroglycerin 0.4 MG Q5M PRN PRN 11/27 0715 AC 11/27 SL 1437 Perflutren Lipid 0 .STK-MED ONE 11/27 0653 DC Microsphere IV Acetaminophen 650 MG Q6H PRN PRN 11/27 0200 AC PO 02/24 0159 Morphine Sulfate 2 MG Q4H PRN PRN 11/27 0200 AC 11/27 IV 12/02 0159 1520 Home Medications:ATORVASTATIN (LIPITOR) 40 MG PO BEDTIME METOPROLOL SUCC XL (TOPROL XL) 25 MG PO DAILY ASPIRIN 81 MG PO DAILY I attest that the foregoing medication list in the medical record is true, accurate, and complete to the best of my knowledge. Diagnosis, Assessment PlanHospital course to date:This is a 53-year-old gentleman with past medical history of coronary artery disease status post previous PCI in the past, hypertension, diabetes, hyperlipidemia who presented to [facility] with complaints of chest pains. He previously underwent left heart catheterization about 1 month ago and was referred for bypass surgery in the outpatient setting however he did not get hisoutpatient appointment yet. The patient reports back to the hospital with complaints of chest pains radiating to the left arm. 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 Patient reports history of chronic pain, Also reports he smokes 1 pack a day for the past 40 years.Denies alcohol Assessment/plan1. Coronary artery disease Workup for CABG2. Chest pain Patient given nitro and morphine. Will transfer the patient to CCU for heparin drip and nitro drip.3. Hypertension4. Hyperlipidemia5. Diabetes The patient reports he took his last Plavix on 11/25/2023 prior to his hospital admission. Will obtain a stat platelet response to Plavix.Obtain cardiac workup stat including carotid Dopplers, CT of the chest etc.Patient was seen and examined Dr. Mayfield. Plan of care discussed with multidisciplinary team. Patient's questions were answered.Further recommendations to followObtain platelet response plavix. 11/28/23Patient in stable condition, reports some chest pain on and offContinue heparin dripPlatelet response to plavix 117, will recheck in AMCoronary angiogram CD uploaded-will reviewContinue preop workupI will tentatively schedule him for CABG in AM pending platelet response to plavix. I have discussed with him the procedure, risks involved, benefits, STS calculated risk score, alternatives, and complications. Patient verbalized understanding and willing to proceed. All questions were answered. 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 Procedure cancelled today and CTA heart ordered for further evaluation 12/01/23Patient doing wellCTA heart reviewed, report pendingStop heparin and start eliquis 5 mg BIDDiscontinue central lineDiscussed plan of care with blacktop paver operator and will hold off on surgery due to thrombus, repeat echo in 3 months to reevaluate, continue blood thinners, no surgical intervention at this timeFollow up with cardiology for management of chest painPatient verbalized understanding and all questions answered. 12/02/23Patient in stable condition, denies chest pain this morning, on Ntg drip at 3.Troponin negativeBreathing comfortable on room airCardiac dietContinue eliquisEcho 30-34 %, Grade I diastolic dysfunctionFollow up in office in 3 months, further management per cardiologyAll questions answered. 12/03/23Patient doing well, denies complaintsCardiology will arrange for patient to get life vestInstructed patient to follow up in office in 3 months, all questions answered Consultants: cardiology, cardiovascular surgery, critical/passenger conductor, hospitalist at 1202 RPT #:[id number] OF REPORTPRProgress [id number]:42:00G.[id number] able for patient [id number]:03:20 [facility] 2023-12-03 08:30:00 [id number]/[id number] [id number]:30:00 [facility] HospitalCardiology Progress NoteREPORT#:[id number] REPORT STATUS: SignedREPORT INITIALIZATION DATE:12/03/23 TIME: 829 PATIENT: CHARAN RESTREPO UNIT #: [id number]#: [id number] [address] [birth year] AGE: 53 SEX: M ATTEND: Papo Mayfield MDABRIDGET AUTHOR: Merlene Rutherford MDREPT SERVICE DT/TIME: 12/03/23 0830* ALL edits or amendments must be made on the electronic/computer document * Subjective Free Text Subj NotesFree Text Subj Notes:Doing okay, no chest pain this morning, hemodynamically stable Objective GeneralVS/I O:24 hour I O ending at 0700: 12/03 0700 12/02 1900 Intake Total 676.70 734.00 Output Total Balance 676.70 734.00 Intake, IV 10.70 14.00 Intake, Oral 666 720 Number 1 Bowel Movements Number Voids 6 6 Patient 85.8 kg Weight Weight Bed scale Measurement Method Vital Signs: Date Time Temp Pulse Resp B/P B/P Pulse O2 O2 Flow FiO2 Mean Ox Delivery Rate 12/03 0600 64 14 134/77 100 96 12/03 0545 65 19 127/77 95 98 12/03 0401 55 11 137/63 91 95 12/03 0400 97.9 12/03 0300 70 15 145/76 103 95 12/03 0200 57 8 132/74 96 95 12/03 0100 58 15 129/65 88 96 12/03 0000 60 15 124/71 90 97 12/02 2300 57 13 138/65 94 94 12/02 2200 56 13 135/63 91 93 12/02 2107 65 18 136/67 94 95 12/02 2030 61 16 117/61 84 94 12/02 1999 97.6 12/02 2000 62 12 121/62 86 92 12/02 1930 64 14 119/63 86 91 12/02 1900 65 16 120/59 83 92 12/02 1830 66 14 117/61 83 92 12/02 1800 66 15 121/61 83 92 12/02 1730 60 16 116/63 81 93 12/02 1700 66 22 147/73 104 95 12/02 1630 61 13 128/65 89 95 12/02 1600 97.9 12/02 1600 71 14 125/65 90 93 12/02 1531 57 14 101/49 71 96 12/02 1530 61 15 91 02 1500 61 15 119/62 84 93 12/02 1430 63 16 125/70 90 93 12/02 1400 66 17 134/66 93 94 12/02 1330 62 14 111/61 81 95 12/02 1300 60 15 118/64 84 95 02 1230 64 14 129/65 91 98 02 1200 98.0 12/02 1200 69 24 147/75 103 96 12/02 1130 54 14 122/64 88 96 0211 1100 58 14 124/58 83 94 12/02 1031 56 12 99/50 71 92 12/02 1001 58 13 107/53 76 94 12/02 0930 62 16 122/64 87 94 12/02 0901 63 15 136/71 96 95 PATIENT WEIGHT: Weight (lb): 189Weight (oz): 2.51Weight (kg): 85.800 Medications:Active Meds + DC'd Last 24 HrsMagnesium Sulfate (MAGNESIUM SULFATE 2GM/SWFI 50ML) 50 ML ONCE ONE IV Hydrocodone Bitart/Acetaminophen (NORCO 10/325) 1 TAB Q6H PRN PRN PO Insulin Glargine (Semglee) 10 UNIT BID SUBQ Nitroglycerin/Dextrose (NITROGLYCERIN 50,000MCG/D5W 250ML) 250 ML ASDIR IV Insulin Human Lispro (HUMALOG) 0 AC HS SUBQ Famotidine (PEPCID) 20 MG BID PO Apixaban (ELIQUIS 5MG TABLET) 5 MG BID PO Nitroglycerin (NITROSTAT) 0.4 MG Q5M PRN PRN SL Sodium Chloride (SODIUM CHLORIDE) 20 ML ASDIR IV Morphine Sulfate (morphine SULFATE) 2 MG Q4H PRN PRN IV Acetaminophen (TYLENOL EXTRA STRENGTH) 1,000 MG PREOP ONCALL PO (DC) Gabapentin (NEURONTIN) 200 MG PREOP ONCALL PO (CKD) Aspirin (ASPIRIN) 81 MG DAILY PO Hydrocodone Bitart/Acetaminophen (NORCO 10/325) 1 TAB TID PRN PRN PO (DC) Atorvastatin Calcium (LIPITOR) 40 MG BEDTIME PO Dextrose/Water (DEXTROSE 10% IN WATER) 125 ML ASDIR PRN IV (CKD) Dextrose/Water (DEXTROSE 10% IN WATER) 250 ML ASDIR PRN IV (CKD) Glucagon (GLUCAGON) 1 MG ASDIR PRN IM Nicotine (NICODERM) 7 MG DAILY TRANSDERM (CKD) Metoprolol Succinate (TOPROL XL) 25 MG DAILY PO Acetaminophen (TYLENOL) 650 MG Q6H PRN PRN PO Physical ExamGeneral appearance: alert, awake, orientedNeck: no JVDCardiovascular: CV assessment: regular rate and rhythm, normal heart soundsRespiratory: clear to auscultation, no distressAbdomen: soft, non-tender, normal bowel sounds, no distentionLower extremity: LE assessment: no edemaNeuro/DRAWER MAKER: alert, oriented X 3, no motor deficitsSkin: dry, intact, normal colorPsychiatry: normal affect, normal judgment/insight, normal mood ResultsFindings/Data:Laboratory Tests 12/03 12/03 12/02 12/02 0714 0 2043 1624 Chemistry Sodium (134 - 147 mEq/L) 138 Potassium (3.4 - 5.0 mEq/L) 4.0 Chloride (100 - 108 mEq/L) 108 Carbon Dioxide (21 - 33 mEq/l) 26 Anion Gap (0 - 20) 9 BUN (7 - 25 mg/dL) 16 Creatinine (0.6 - 1.3 mg/dL) 0.8 Glomerular Filtr Rate (90 - 95) 105.2 H Glucose (77 - 141 mg/dL) 187 H POC Glucose (70 - 110 MG/DL) 228 H 305 H 228 H Calcium (8.0 - 10.5 mg/dL) 9.1 Ionized Calcium Zina (1.09 - 1.30 MMOL/L) 1.13 Phosphorus (2.5 - 4.9 MG/DL) 4.0 Magnesium (1.6 - 2.6 mg/dL) 1.87 12/02 1145 Chemistry POC Glucose (70 - 110 MG/DL) 205 H Laboratory Tests 12/03 0440 Hematology WBC (4.5 - 11.0 x10 3/uL) 8.0 RBC (4.00 - 5.60 x10 6/uL) 5.26 Hgb (12.5 - 16.9 g/dL) 15.1 Hct (37.5 - 50.7 %) 44.3 MCV (81.0 - 99.0 fL) 84.2 MCH (27.0 - 33.0 pg) 28.7 MCHC (33.0 - 37.0 g/dL) 34.1 RDW (11.5 - 14.5 %) 13.5 Plt Count (150 - 400 x10 3/uL) 189 MPV (7.0 - 9.0 fL) 10.4 H Neut % (Auto) (56.0 - 77.0 %) 60.9 Lymph % (Auto) (14.0 - 32.0 %) 22.2 Fisher % (Auto) (4.8 - 9.0 %) 9.9 H Eos % (Auto) (0.3 - 3.7 %) 4.4 H Baso % (Auto) (0.0 - 2.0 %) 1.3 Neut # (Auto) (2.0 - 7.6 x10 3/uL) 4.87 Lymph # (Auto) (1.0 - 3.8 x10 3/uL) 1.77 Fisher # (Auto) (0.1 - 0.8 x10 3/uL) 0.79 Eos # (Auto) (0.0 - 0.2 x10 3/uL) 0.35 H Baso # (Auto) (0.0 - 0.2 x10 3/uL) 0.10 Abs Immat Gran (auto) (0.00 - 0.03 x10 3/uL) 0.10 H Immature Gran % (0.0 - 2.0 %) 1.3 Nucleated RBC % (0 - 0 %) 0.0 Nucleated RBCs # (Man) (0.0 - 0.1 x10 3/uL) 0.00 Laboratory Tests 12/03 0440 Chemistry Magnesium (1.6 - 2.6 mg/dL) 1.87 Diagnosis, Assessment Plan Free Text DxA P NotesFree Text DxA P Notes:1. 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 CP improved with Morphine and NTG. Add aspirin 81 mg daily. Continue atorvastatin and metoprolol 2. DMII: per Hospitalist 3. HTN: BP stable. Continue BB 4. 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 Continue beta-luís. GDMT as tolerated. 5. LV thrombus: On Eliquis, CT surgery decided to postpone CABG for 3 months jarrell. Okay to be discharged from cardiac standpoint, follow-up with Dr. Rodriguez this week. at 9507 RPT #:[id number] OF REPORTPRProgress [id number]:30:00G.[id number] able for patient [id number]:48:50 [facility]ACL 2023-12-02 12:48:00 [id number] FJSvrgqSO/CV7+2j81GMROAX4+snu l+kp/UN49eHCvufV1O5EzW4PeLE8893-32-16X00:48:00 [facility])Hospitalist Progress NoteREPORT#:[id number] REPORT STATUS: SignedREPORT INITIALIZATION DATE:12/02/23 TIME: 1248 PATIENT: CHARAN RESTREPO UNIT #: [id number]#: [id number] [address] [birth year] AGE: 53 SEX: M ATTEND: Papo Mayfield MDADM AUTHOR: Marilyn Mayfield MDREPT SERVICE DT/TIME: 12/02/23 1248* ALL edits or amendments must be made on the electronic/computer document * SubjectiveChief complaint:he is seen . on nitro drip Review of SystemsAll systems rev neg: except as noted Objective GeneralVS/I O:Vital Signs: Date Time Temp Pulse Resp B/P B/P Pulse O2 O2 Flow FiO2 Mean Ox Delivery Rate 12/02 1200 36.7 12/02 1200 69 24 147/75 103 96 12/02 1130 54 14 122/64 88 96 12/02 1100 58 14 124/58 83 94 12/02 1031 56 12 99/50 71 92 12/02 1001 58 13 107/53 76 94 12/02 0930 62 16 122/64 87 94 12/02 0901 63 15 136/71 96 95 12/02 0830 63 12 114/62 81 93 12/02 0800 36.5 12/02 0800 59 13 110/59 79 95 / 0730 70 50 134/74 98 96 / 0701 68 15 130/67 93 96 12/02 0501 73 28 139/67 96 95 / 0412 55 13 97/57 70 95 / 0401 53 13 85/42 60 96 12/02 0331 52 13 95/52 70 96 12/02 0300 55 9 102/50 72 95 / 0230 58 13 118/59 82 94 12/02 0200 60 14 114/57 78 96 12/02 0116 65 16 134/69 95 95 12/02 0100 56 13 110/56 79 93 12/02 0044 63 12 113/59 79 95 12/01 2247 36.8 61 13 128/66 0.0 95 Room air 12/015 36.5 69 13 154/70 0.0 96 Room air 12/01 2102 75 40 113/74 87 95 12/01 2100 60 32 119/71 91 97 12/01 2000 36.8 12/01 2000 56 13 110/60 79 97 12/01 1931 100 Room air 21 12/01 1900 53 13 111/59 79 96 12/01 1800 54 12 111/58 77 95 12/01 1700 56 14 122/62 86 96 12/01 1600 55 21 121/67 89 97 12/01 1500 57 18 120/65 86 97 12/01 1400 62 14 120/63 86 95 12/01 1322 62 19 122/61 86 98 12/01 1300 67 25 96 PATIENT WEIGHT: Weight (lb): 168Weight (oz): 10.46Weight (kg): 76.500 Medications:Active Meds + DC'd Last 24 HrsInsulin Glargine (Semglee) 10 UNIT BID SUBQ Nitroglycerin/Dextrose (NITROGLYCERIN 50,000MCG/D5W 250ML) 250 ML ASDIR IV Insulin Human Lispro (HUMALOG) 0 AC HS SUBQ Famotidine (PEPCID) 20 MG BID PO Apixaban (ELIQUIS 5MG TABLET) 5 MG BID PO Nitroglycerin (NITROSTAT) 0.4 MG Q5M PRN PRN SL Sodium Chloride (SODIUM CHLORIDE) 20 ML ASDIR IV Morphine Sulfate (morphine SULFATE) 2 MG Q4H PRN PRN IV Acetaminophen (TYLENOL EXTRA STRENGTH) 1,000 MG PREOP ONCALL PO (CKD) Gabapentin (NEURONTIN) 200 MG PREOP ONCALL PO (CKD) Aspirin (ASPIRIN) 81 MG DAILY PO Hydrocodone Bitart/Acetaminophen (NORCO 10/325) 1 TAB TID PRN PRN PO Atorvastatin Calcium (LIPITOR) 40 MG BEDTIME PO Mupirocin (BACTROBAN 2% 22 GM OINTMENT) 1 APPLIC BID NASAL (DC) Dextrose/Water (DEXTROSE 10% IN WATER) 125 ML ASDIR PRN IV (CKD) Dextrose/Water (DEXTROSE 10% IN WATER) 250 ML ASDIR PRN IV (CKD) Glucagon (GLUCAGON) 1 MG ASDIR PRN IM Nicotine (NICODERM) 7 MG DAILY TRANSDERM (CKD) Metoprolol Succinate (TOPROL XL) 25 MG DAILY PO Acetaminophen (TYLENOL) 650 MG Q6H PRN PRN PO Physical ExamGeneral appearance: alert, awake, orientedHead/Eyes: atraumatic, normal conjunctiva/sclera, normal eyelids/periorb.Neck: full range of motion, non-tender, no JVDCardiovascular: normal heart sounds, regular rate rhythmRespiratory: aerating well, clear to auscultationAbdomen: non-tender, normal bowel sounds, soft, no distentionExtremities: moves all, no calf tenderness, no edemaNeuro/DRAWER MAKER: alert, oriented X 3, CNII-XII intact, normal speech, no motor deficits, no sensory deficitsSkin: dry, intact ResultsFindings/Data:Laboratory Tests 12/02 12/02 12/02 12/02 1624 1145 0725 0259 Chemistry Sodium (134 - 147 mEq/L) 136 Potassium (3.4 - 5.0 mEq/L) 4.2 Chloride (100 - 108 mEq/L) 106 Carbon Dioxide (21 - 33 mEq/l) 26 Anion Gap (0 - 20) 8 BUN (7 - 25 mg/dL) 16 Creatinine (0.6 - 1.3 mg/dL) 0.9 Glomerular Filtr Rate (90 - 95) 101.5 H Glucose (77 - 141 mg/dL) 293 H POC Glucose (70 - 110 MG/DL) 228 H 205 H 233 H Calcium (8.0 - 10.5 mg/dL) 9.3 Ionized Calcium Zina (1.09 - 1.30 MMOL/L) 1.19 Phosphorus (2.5 - 4.9 MG/DL) 3.7 Magnesium (1.6 - 2.6 mg/dL) 1.95 Troponin I High Sens (0 - 54 ng/L) 17 12/01 2058 Chemistry POC Glucose (70 - 110 MG/DL) 247 H Laboratory Tests 12/02 0259 Hematology WBC (4.5 - 11.0 x10 3/uL) 9.7 RBC (4.00 - 5.60 x10 6/uL) 5.08 Hgb (12.5 - 16.9 g/dL) 14.5 Hct (37.5 - 50.7 %) 43.2 MCV (81.0 - 99.0 fL) 85.0 MCH (27.0 - 33.0 pg) 28.5 MCHC (33.0 - 37.0 g/dL) 33.6 RDW (11.5 - 14.5 %) 13.8 Plt Count (150 - 400 x10 3/uL) 186 MPV (7.0 - 9.0 fL) 10.3 H Neut % (Auto) (56.0 - 77.0 %) 65.5 Lymph % (Auto) (14.0 - 32.0 %) 21.8 Fisher % (Auto) (4.8 - 9.0 %) 7.4 Eos % (Auto) (0.3 - 3.7 %) 4.0 H Baso % (Auto) (0.0 - 2.0 %) 0.7 Neut # (Auto) (2.0 - 7.6 x10 3/uL) 6.35 Lymph # (Auto) (1.0 - 3.8 x10 3/uL) 2.11 Fisher # (Auto) (0.1 - 0.8 x10 3/uL) 0.72 Eos # (Auto) (0.0 - 0.2 x10 3/uL) 0.39 H Baso # (Auto) (0.0 - 0.2 x10 3/uL) 0.07 Abs Immat Gran (auto) (0.00 - 0.03 x10 3/uL) 0.06 H Immature Gran % (0.0 - 2.0 %) 0.6 Nucleated RBC % (0 - 0 %) 0.0 Nucleated RBCs # (Man) (0.0 - 0.1 x10 3/uL) 0.00 Treatment Prophylaxis Treatment ProphylaxisDrain(s)/tube(s): Drain(s)/tube(s): urinary catheter Diagnosis, Assessment PlanConsultants: cardiology, cardiovascular surgery, critical/passenger conductor, hospitalist Free Text DxA P NotesFree text DxA P notes: CAD with stents DMHTNHLD tele cardiology consult CV surgeon -- work up for CABG HTN-- BP well control -- continue metoprololDM-- sliding scale -- Hba1c HLD--continue lipitor will follow the patient and manage DM with you during the hospital stay 11/28- he complaint of cp -- monitor in ccu - manage as cardiology -- pre OP for CABG -- may be this week as surgeon -- DM -- not well control -- adjust insulin 11/29 Pending CABG. Continue monitoring in CCU.11/30 On heparin. Pending surgery. 12/01- he found thrombus in ANAND yesterday -- surgery was cancelled -- on eliquis now -- he is hemodynamic stable 12/02- on nitro drip -- he is hemodynamic stable -- continue current management at 2017 RPT #:[id number] OF REPORTPRProgress [id number]:48:00G.[id number] able for patient hnmwOGBNFZWXHIXVRF8229-52-05V83:17:49 [facility] 2023-12-02 12:09:00 [id number] 6YbIQBj3VgDayNXq/IdfH8bMEYfiz /+oZOL/Ef8ksBIvXOcePjZt6tAX5260-41-97W63:09:00 [facility] ([facility])Critical Care Progress NoteREPORT#:[id number] REPORT STATUS: SignedREPORT INITIALIZATION DATE:12/02/23 TIME: 1209 PATIENT: CHARAN RESTREPO UNIT #: [id number]#: [id number] [address] [birth year] AGE: 53 SEX: M ATTEND: Papo Mayfield MDADM AUTHOR: Michelle Galvez APRNNPREPT SERVICE DT/TIME: 12/02/23 1209* ALL edits or amendments must be made on the electronic/computer document * SubjectiveChief complaint:Chest PainHPI:53-year-old gentleman with past medical history of coronary artery disease status post previous PCI in the past, hypertension, diabetes, hyperlipidemia wh[facility]red [facility] to [facility] for CABG evaluation. Objective GeneralVS/I OLast Documented: Result Date Time Pulse Ox 96 02/11 1200 B/P 147/75 12/02 1200 B/P Mean 103 12/02 1200 Pulse 69 12/02 1200 Resp 24 12/02 1200 Temp 97.7 12/02 0800 O2 Delivery Room air 12/01 2247 FiO2 21 12/01 1931 O2 Flow Rate 2 11/27 0900 PATIENT WEIGHT: Weight (lb): 168Weight (oz): 10.46Weight (kg): 76.500 Free Text Obj NotesFree Text Obj Notes:Physical exam:Gral appearance: NADHead/Eyes: NC/AT, pupuls round, sluggishNeck: No JVD, No swelling, has R IJ central line. CV: RRR, S1/S2, no murmursLungs: CTAB. GI: Soft, ND/NT, bowel sounds presentGU: Gutierrez with graham colored urineEXT: no edema or cyanosis. WarmSkin: No rashNeuro: limited by sedation. Diagnosis, Assessment PlanFree text Billy P:53-year-old gentleman with past medical history of coronary artery disease status post previous PCI in the past, hypertension, diabetes, hyperlipidemia whotransferred from [facility] to [facility] for CABG evaluation. 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 Per CTS transition to Eliquis 5 mg BID x 3 month-repeat ECHO in 3 month. No surgery until follow up ECHO. D/c right IJ-may transfer to tele floor. 12/02/23:Transfer to CCU last night 2/2 to chest pain. On Nitro drip. Currently denies chest pain. Will need a repeat ECHO. Plan is to follow up in office in 3 months,further management per cardiology upon discharge. Continue Eliquis. Elevated BS-increase Lantus dose + High dose SS. Neuro:Awake and follows commandHOH CV:LV thrombusEliquis 5 mg PO BIDHLD-Atorvastatin Mutivessel DzMetoprolol 25 mg XLASA 81 mg Po dailySystolic and diastolic HF, LVEF 30-34% RESP:RACXR as neededNeb TX as needed GI/:VoidingPPIBowel regimen ENDO:Hx DMInsulin high doseLantus 10 units BID HEME:Heparin DripTransition to Eliquis ID:Afebrile 35 minutes of critical care spent. Consultants: cardiology, cardiovascular surgery, critical/passenger conductor, hospitalist Quality: Gen Med Crit Care Current MedicationsCurrent medication review: Current Medications Sig/Marie Start time Last Medication Dose Route Stop Time Status Admin Atorvastatin Calcium 40 MG BEDTIME 11/27 2100 AC PO 12/26 2059 Insulin Human Lispro 0 AC HS 11/27 1630 AC 11/27 SUBQ 02/24 1629 1625 Mupirocin 1 APPLIC BID 11/27 1400 AC 11/27 NASAL 12/01 2101 1348 Dextrose/Water 125 ML ASDIR PRN 11/27 1300 CKD IV 02/24 1259 Dextrose/Water 250 ML ASDIR PRN 11/27 1300 CKD IV 02/24 1259 Glucagon 1 MG ASDIR PRN 11/27 1300 AC IM 02/24 1259 Heparin Sodium 0 ASDIR PRN 11/27 1015 AC IV 02/24 1014 Heparin Sodium 500 ML ASDIR 11/27 1015 CKD 11/27 (Porcine) IV 02/24 1014 1234 Nicotine 7 MG DAILY 11/27 1015 CKD 11/27 TRANSDERM 02/24 1014 1247 Metoprolol Succinate 25 MG DAILY 11/27 0900 AC 11/27 PO 02/24 0859 0838 Nitroglycerin 0.4 MG Q5M PRN PRN 11/27 0715 AC 11/27 SL 1437 Perflutren Lipid 0 .STK-MED ONE 11/27 0653 DC Microsphere IV Acetaminophen 650 MG Q6H PRN PRN 11/27 0200 AC PO 02/24 0159 Morphine Sulfate 2 MG Q4H PRN PRN 11/27 0200 AC 11/27 IV 12/02 0159 1520 Home Medications:ATORVASTATIN (LIPITOR) 40 MG PO BEDTIME METOPROLOL SUCC XL (TOPROL XL) 25 MG PO DAILY ASPIRIN 81 MG PO DAILY I attest that the foregoing medication list in the medical record is true, accurate, and complete to the best of my knowledge. at 1222 RPT #:[id number] OF REPORTPRProgress [id number]:09:00G.[id number] able for patient kpmyMVNCLUYPXVDUFU6180-04-64U11:23:09 [facility] 2023-12-02 11:59:00 [id number] 2gEwTLqu9fe+6YkFNn8ehQIZkFBaY 5r4yaGmK1pv5ncDwi/kLf3YPRLy7994-28-24Z13:59:00 [facility] ProgREPORT#:[id number] REPORT STATUS: SignedREPORT INITIALIZATION DATE:12/02/23 TIME: 1158 PATIENT: CHARAN RESTREPO UNIT #: [id number]#: [id number] [address] [birth year] AGE: 53 SEX: M ATTEND: Papo Mayfield MDADM AUTHOR: Papo Mayfield MDREPT SERVICE DT/TIME: 12/02/23 1159* ALL edits or amendments must be made on the electronic/computer document * SubjectiveChief complaint:chest pain CAD pre op CABG eval Review of SystemsConstitutional:Denies: chills, fatigue, fever. Skin:Denies: abrasion, bruising, contusion. Allergy/Immun:Denies: allergic reaction, anaphylaxis, hives. ENT:Denies: ear drainage, ear ringing, earache. Respiratory:Denies: DWYER (dyspnea on exertion), pneumonia, SOB. Cardiovascular:Reports: chest pain. Denies: palpitations. :Denies: dysuria, flank pain. Musculoskeletal:Denies: arthritis, extremity pain, joint pain. Neuro:Denies: confusion, dizziness, seizure, syncope. Psych:Denies: agitation, anxiety. All systems rev neg: except as marked Objective GeneralVS/I OLast Documented: Result Date Time Temp 36.5 12/02 0800 Pulse Ox 96 12/02 0730 B/P 134/74 12/02 0730 B/P Mean 98 12/02 0730 Pulse 70 12/02 0730 Resp 50 02/11 0730 O2 Delivery Room air 12/01 2247 FiO2 21 12/01 1931 O2 Flow Rate 2 11/27 0900 PATIENT WEIGHT: Weight (lb): 168Weight (oz): 10.46Weight (kg): 76.500 Dietitian Nutrition assessmentThe data set between the solid lines has been imported from the dietitian's assessment. BMI Calculated: 24.2Nutrition related diagnosis: Nutrition diagnosis details: Nutrition problem: Nutrition etiology: Nutrition signs and symptoms: Nutrition prescription: Dietitian name: Assessment completed: Physical ExamGeneral appearance: alert, awake, orientedHEENT: anicteric, mucosal membranes moistNeck: full range of motion, non-tenderCardiovascular: normal heart sounds, regular rate rhythmRespiratory: aerating well, symmetric expansionAbdomen: soft, non-tenderGenitourinary: no bladder distention, no flank pain, no foleyExtremities: dry, moves allMusculoskeletal: full range of motionNeuro/DRAWER MAKER: alert, oriented X 3Skin: dry, intact, normal temperaturePsychiatry: normal affect, normal mood Current MedicationsMedications:Active Meds + DC'd Last 24 HrsNitroglycerin/Dextrose (NITROGLYCERIN 50,000MCG/D5W 250ML) 250 ML ASDIR IV Insulin Human Lispro (HUMALOG) 0 AC HS SUBQ Famotidine (PEPCID) 20 MG BID PO Insulin Glargine (Semglee) 5 UNIT BID SUBQ (CAN) Apixaban (ELIQUIS 5MG TABLET) 5 MG BID PO Nitroglycerin (NITROSTAT) 0.4 MG Q5M PRN PRN SL Sodium Chloride (SODIUM CHLORIDE) 20 ML ASDIR IV Morphine Sulfate (morphine SULFATE) 2 MG Q4H PRN PRN IV Acetaminophen (TYLENOL EXTRA STRENGTH) 1,000 MG PREOP ONCALL PO (CKD) Gabapentin (NEURONTIN) 200 MG PREOP ONCALL PO (CKD) Aspirin (ASPIRIN) 81 MG DAILY PO Hydrocodone Bitart/Acetaminophen (NORCO 10/325) 1 TAB TID PRN PRN PO Atorvastatin Calcium (LIPITOR) 40 MG BEDTIME PO Insulin Human Lispro (HUMALOG) 0 AC HS SUBQ (DC) Mupirocin (BACTROBAN 2% 22 GM OINTMENT) 1 APPLIC BID NASAL (DC) Dextrose/Water (DEXTROSE 10% IN WATER) 125 ML ASDIR PRN IV (CKD) Dextrose/Water (DEXTROSE 10% IN WATER) 250 ML ASDIR PRN IV (CKD) Glucagon (GLUCAGON) 1 MG ASDIR PRN IM Nicotine (NICODERM) 7 MG DAILY TRANSDERM (CKD) Metoprolol Succinate (TOPROL XL) 25 MG DAILY PO Acetaminophen (TYLENOL) 650 MG Q6H PRN PRN PO ResultsFindings/Data:Laboratory Tests 12/02 12/02 12/02 12/01 1145 0725 0259 2058 Chemistry Sodium (134 - 147 mEq/L) 136 Potassium (3.4 - 5.0 mEq/L) 4.2 Chloride (100 - 108 mEq/L) 106 Carbon Dioxide (21 - 33 mEq/l) 26 Anion Gap (0 - 20) 8 BUN (7 - 25 mg/dL) 16 Creatinine (0.6 - 1.3 mg/dL) 0.9 Glomerular Filtr Rate (90 - 95) 101.5 H Glucose (77 - 141 mg/dL) 293 H POC Glucose (70 - 110 MG/DL) 205 H 233 H 247 H Calcium (8.0 - 10.5 mg/dL) 9.3 Ionized Calcium Zina (1.09 - 1.30 MMOL/L) 1.19 Phosphorus (2.5 - 4.9 MG/DL) 3.7 Magnesium (1.6 - 2.6 mg/dL) 1.95 Troponin I High Sens (0 - 54 ng/L) 17 12/01 1634 Chemistry POC Glucose (70 - 110 MG/DL) 239 H Laboratory Tests 12/02 0259 Hematology WBC (4.5 - 11.0 x10 3/uL) 9.7 RBC (4.00 - 5.60 x10 6/uL) 5.08 Hgb (12.5 - 16.9 g/dL) 14.5 Hct (37.5 - 50.7 %) 43.2 MCV (81.0 - 99.0 fL) 85.0 MCH (27.0 - 33.0 pg) 28.5 MCHC (33.0 - 37.0 g/dL) 33.6 RDW (11.5 - 14.5 %) 13.8 Plt Count (150 - 400 x10 3/uL) 186 MPV (7.0 - 9.0 fL) 10.3 H Neut % (Auto) (56.0 - 77.0 %) 65.5 Lymph % (Auto) (14.0 - 32.0 %) 21.8 Fisher % (Auto) (4.8 - 9.0 %) 7.4 Eos % (Auto) (0.3 - 3.7 %) 4.0 H Baso % (Auto) (0.0 - 2.0 %) 0.7 Neut # (Auto) (2.0 - 7.6 x10 3/uL) 6.35 Lymph # (Auto) (1.0 - 3.8 x10 3/uL) 2.11 Fisher # (Auto) (0.1 - 0.8 x10 3/uL) 0.72 Eos # (Auto) (0.0 - 0.2 x10 3/uL) 0.39 H Baso # (Auto) (0.0 - 0.2 x10 3/uL) 0.07 Abs Immat Gran (auto) (0.00 - 0.03 x10 3/uL) 0.06 H Immature Gran % (0.0 - 2.0 %) 0.6 Nucleated RBC % (0 - 0 %) 0.0 Nucleated RBCs # (Man) (0.0 - 0.1 x10 3/uL) 0.00 Results: labs reviewed, vital signs stable, narda personally rev'd, current med profile rev'd Quality: Trauma Gen Surg Current MedicationsCurrent medication review: Current Medications Sig/Marie Start time Last Medication Dose Route Stop Time Status Admin Atorvastatin Calcium 40 MG BEDTIME 11/27 2100 AC PO 12/26 2058 Insulin Human Lispro 0 AC HS 11/27 1630 AC 11/27 SUBQ 02/24 1629 1625 Mupirocin 1 APPLIC BID 11/27 1400 AC 11/27 NASAL 12/01 2101 1348 Dextrose/Water 125 ML ASDIR PRN 11/27 1300 CKD IV 02/24 1259 Dextrose/Water 250 ML ASDIR PRN 11/27 1300 CKD IV 02/24 1259 Glucagon 1 MG ASDIR PRN 11/27 1300 AC IM 02/24 1259 Heparin Sodium 0 ASDIR PRN 11/27 1015 AC IV 02/24 1014 Heparin Sodium 500 ML ASDIR 11/27 1015 CKD 11/27 (Porcine) IV 02/24 1014 1234 Nicotine 7 MG DAILY 11/27 1015 CKD 11/27 TRANSDERM 02/24 1014 1247 Metoprolol Succinate 25 MG DAILY 11/27 0900 AC 11/27 PO 02/24 0859 0838 Nitroglycerin 0.4 MG Q5M PRN PRN 11/27 0715 AC 11/27 SL 1437 Perflutren Lipid 0 .STK-MED ONE 11/27 0653 DC Microsphere IV Acetaminophen 650 MG Q6H PRN PRN 11/27 0200 AC PO 02/24 0159 Morphine Sulfate 2 MG Q4H PRN PRN 11/27 0200 AC 11/27 IV 12/02 0159 1520 Home Medications:ATORVASTATIN (LIPITOR) 40 MG PO BEDTIME METOPROLOL SUCC XL (TOPROL XL) 25 MG PO DAILY ASPIRIN 81 MG PO DAILY I attest that the foregoing medication list in the medical record is true, accurate, and complete to the best of my knowledge. Diagnosis, Assessment PlanHospital course to date:This is a 53-year-old gentleman with past medical history of coronary artery disease status post previous PCI in the past, hypertension, diabetes, hyperlipidemia who presented to [facility] with complaints of chest pains. He previously underwent left heart catheterization about 1 month ago and was referred for bypass surgery in the outpatient setting however he did not get hisoutpatient appointment yet. The patient reports back to the hospital with complaints of chest pains radiating to the left arm. 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 Patient reports history of chronic pain, Also reports he smokes 1 pack a day for the past 40 years.Denies alcohol Assessment/plan1. Coronary artery disease Workup for CABG2. Chest pain Patient given nitro and morphine. Will transfer the patient to CCU for heparin drip and nitro drip.3. Hypertension4. Hyperlipidemia5. Diabetes The patient reports he took his last Plavix on 11/25/2023 prior to his hospital admission. Will obtain a stat platelet response to Plavix.Obtain cardiac workup stat including carotid Dopplers, CT of the chest etc.Patient was seen and examined Dr. Mayfield. Plan of care discussed with multidisciplinary team. Patient's questions were answered.Further recommendations to followObtain platelet response plavix. 11/28/23Patient in stable condition, reports some chest pain on and offContinue heparin dripPlatelet response to plavix 117, [facility]-will reviewContinue preop workupI will tentatively schedule him for CABG in AM pending platelet response to plavix. I have discussed with him the procedure, risks involved, benefits, STS calculated risk score, alternatives, and complications. Patient verbalized understanding and willing to proceed. All questions were answered. 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 Procedure cancelled today and CTA heart ordered for further evaluation 12/01/23Patient doing wellCTA heart reviewed, report pendingStop heparin and start eliquis 5 mg BIDDiscontinue central lineDiscussed plan of care with blacktop paver operator and will hold off on surgery due to thrombus, repeat echo in 3 months to reevaluate, continue blood thinners, no surgical intervention at this timeFollow up with cardiology for management of chest painPatient verbalized understanding and all questions answered. 12/02/23Patient in stable condition, denies chest pain this morning, on Ntg drip at 3.Troponin negativeBreathing comfortable on room airCardiac dietContinue eliquisEcho 30-34 %, Grade I diastolic dysfunctionFollow up in office in 3 months, further management per cardiologyAll questions answered. Consultants: cardiology, cardiovascular surgery, critical/passenger conductor, hospitalist at [address] [facility] #:[id number] OF REPORTPRProgress [id number]:59:00G.[id number] able for patient aheaMQHOZIVCCJFWZY1251-48-06V31:51:18 [facility] 2023-12-01 13:03:00 [id number] /[id number]+ECeQHs4wUO1ZUH2TuR3yI 7q+LHYtJ4a46iWI4HxvXu/wjxJM9195-57-86F41:03:00 [facility] ProgREPORT#:[id number] REPORT STATUS: SignedREPORT INITIALIZATION DATE:12/01/23 TIME: 1303 PATIENT: CHARAN RESTREPO UNIT #: [id number]#: [id number] [address] [birth year] AGE: 53 SEX: M ATTEND: Papo Mayfield MDADM AUTHOR: Papo Mayfield MDREPT SERVICE DT/TIME: 12/01/23 1303* ALL edits or amendments must be made on the electronic/computer document * SubjectiveChief complaint:chest painCADpre op CABG eval Review of SystemsConstitutional:Denies: chills, fatigue, fever. Skin:Denies: abrasion, bruising, contusion. Allergy/Immun:Denies: allergic reaction, anaphylaxis, hives. ENT:Denies: ear drainage, ear ringing, earache. Respiratory:Denies: DWYER (dyspnea on exertion), pneumonia, SOB. Cardiovascular:Reports: chest pain. Denies: palpitations. :Denies: dysuria, flank pain. Musculoskeletal:Denies: arthritis, extremity pain, joint pain. Neuro:Denies: confusion, dizziness, seizure, syncope. Psych:Denies: agitation, anxiety. All systems rev neg: except as marked Objective GeneralVS/I OLast Documented: Result Date Time Temp 36.8 12/01 0800 Pulse Ox 97 02/10 0700 B/P 136/68 12/01 699 B/P Mean 94 12/01 699 Pulse 65 12/01 699 Resp 18 12/01 699 FiO2 21 11/30 1912 O2 Delivery Room air 11/30 1912 O2 Flow Rate 2 11/27 899 24 hour I O ending at 0700: 12/01 0700 11/30 1900 Intake Total 964.00 970 Output Total 900 Balance 964.00 70 Intake, IV 364.00 Intake, Oral 600 720 Intake, Oral 250 Supplement Number 0 Bowel Movements Number Voids 4 3 Output, Urine 900 Patient 76.5 kg Weight Weight Bed scale Measurement Method PATIENT WEIGHT: Weight (lb): 168Weight (oz): 10.46Weight (kg): 76.500 Dietitian Nutrition assessmentThe data set between the solid lines has been imported from the dietitian's assessment. BMI Calculated: 24.2Nutrition related diagnosis: Nutrition diagnosis details: Nutrition problem: Nutrition etiology: Nutrition signs and symptoms: Nutrition prescription: Dietitian name: Assessment completed: Physical ExamGeneral appearance: alert, awake, orientedHEENT: anicteric, mucosal membranes moistNeck: full range of motion, non-tenderCardiovascular: normal heart sounds, regular rate rhythmRespiratory: aerating well, symmetric expansionAbdomen: soft, non-tenderGenitourinary: no bladder distention, no flank pain, no foleyExtremities: dry, moves allMusculoskeletal: full range of motionNeuro/DRAWER MAKER: alert, oriented X 3Skin: dry, intact, normal temperaturePsychiatry: normal affect, normal mood Current MedicationsMedications:Active Meds + DC'd Last 24 HrsInsulin Human Lispro (HUMALOG) 0 AC HS SUBQ Famotidine (PEPCID) 20 MG BID PO Insulin Glargine (Semglee) 5 UNIT BID SUBQ (CAN) Apixaban (ELIQUIS 5MG TABLET) 5 MG BID PO Magnesium Hydroxide (MILK OF MAGNESIA) 30 ML ONCE ONE PO (DC) Nitroglycerin (NITROSTAT) 0.4 MG Q5M PRN PRN SL Iopamidol (ISOVUE-370 100ML) 100 ML .STK-MED ONE IV (DC) Metoprolol Tartrate (LOPRESSOR) 5 MG ONCE ONE IV (DC) Metoprolol Tartrate (LOPRESSOR) 0 .STK-MED ONE IV (DC) Fentanyl Citrate (Fentanyl 1,000MCG/NS 100ML) 100 ML ASDIR IV (DC) Propofol (DIPRIVAN 1,000MG/100ML) 100 ML TITRATE IV (DC) Cefazolin Sodium (KEFZOL OR ANCEF) 2 GM PREOP ONCALL IV (DC) Vancomycin HCl (VANCOMYCIN HCL) 1,250 MG PREOP ONCALL IV (DC) Sodium Chloride (SODIUM CHLORIDE 0.9%) 250 MLVerapamil HCl (ISOPTIN) 16.6 MG .Q24H ONE IV (DC) Heparin Sodium (Porcine) (HEPARIN SODIUM) 1,660 UNIT Sodium Bicarbonate (SODIUM BICARBONATE) 0.7 ML Nitroglycerin/Dextrose (NITROGLYCERIN 50MG/D5W 250ML) 8.3 MG Lactated Ringer's (LACTATED RINGERS) 949.5 MLSodium Chloride (SODIUM CHLORIDE) 20 ML ASDIR IV Morphine Sulfate (morphine SULFATE) 2 MG Q4H PRN PRN IV Acetaminophen (TYLENOL EXTRA STRENGTH) 1,000 MG PREOP ONCALL PO (CKD) Gabapentin (NEURONTIN) 200 MG PREOP ONCALL PO (CKD) Aspirin (ASPIRIN) 81 MG DAILY PO Hydrocodone Bitart/Acetaminophen (NORCO 10/325) 1 TAB TID PRN PRN PO Atorvastatin Calcium (LIPITOR) 40 MG BEDTIME PO Insulin Human Lispro (HUMALOG) 0 AC HS SUBQ (DC) Mupirocin (BACTROBAN 2% 22 GM OINTMENT) 1 APPLIC BID NASAL Dextrose/Water (DEXTROSE 10% IN WATER) 125 ML ASDIR PRN IV (CKD) Dextrose/Water (DEXTROSE 10% IN WATER) 250 ML ASDIR PRN IV (CKD) Glucagon (GLUCAGON) 1 MG ASDIR PRN IM Heparin Sodium (HEPARIN 5000 UNITS/ML) 0 ASDIR PRN IV (DC) Heparin Sodium (Porcine) (HEPARIN 25,000 UNITS/ 1/2NS 500ML) 500 ML ASDIR IV (DC) Nicotine (NICODERM) 7 MG DAILY TRANSDERM (CKD) Metoprolol Succinate (TOPROL XL) 25 MG DAILY PO Acetaminophen (TYLENOL) 650 MG Q6H PRN PRN PO ResultsFindings/Data:Laboratory Tests 12/01 12/01 12/01 11/30 1036 0737 0414 2204 Chemistry Sodium (134 - 147 mEq/L) 138 Potassium (3.4 - 5.0 mEq/L) 4.4 Chloride (100 - 108 mEq/L) 108 Carbon Dioxide (21 - 33 mEq/l) 26 Anion Gap (0 - 20) 9 BUN (7 - 25 mg/dL) 16 Creatinine (0.6 - 1.3 mg/dL) 1.0 Glomerular Filtr Rate (90 - 95) 89.4 L Glucose (77 - 141 mg/dL) 263 H POC Glucose (70 - 110 MG/DL) 196 H 247 H 340 H Calcium (8.0 - 10.5 mg/dL) 9.0 Ionized Calcium Zina (1.09 - 1.30 MMOL/L) 1.14 Phosphorus (2.5 - 4.9 MG/DL) 3.7 Magnesium (1.6 - 2.6 mg/dL) 2.06 Laboratory Tests 12/01 11/30 0414 2146 Coagulation PTT (Ulises) (25.0 - 39.5 Seconds) 27.8 58.8 H Laboratory Tests 12/01 413 Hematology WBC (4.5 - 11.0 x10 3/uL) 12.3 H RBC (4.00 - 5.60 x10 6/uL) 5.39 Hgb (12.5 - 16.9 g/dL) 15.3 Hct (37.5 - 50.7 %) 45.7 MCV (81.0 - 99.0 fL) 84.8 MCH (27.0 - 33.0 pg) 28.4 MCHC (33.0 - 37.0 g/dL) 33.5 RDW (11.5 - 14.5 %) 13.8 Plt Count (150 - 400 x10 3/uL) 189 MPV (7.0 - 9.0 fL) 10.3 H Neut % (Auto) (56.0 - 77.0 %) 83.6 H Lymph % (Auto) (14.0 - 32.0 %) 8.1 L Fisher % (Auto) (4.8 - 9.0 %) 6.9 Eos % (Auto) (0.3 - 3.7 %) 0.5 Baso % (Auto) (0.0 - 2.0 %) 0.4 Neut # (Auto) (2.0 - 7.6 x10 3/uL) 10.26 H Lymph # (Auto) (1.0 - 3.8 x10 3/uL) 1.00 Fisher # (Auto) (0.1 - 0.8 x10 3/uL) 0.85 H Eos # (Auto) (0.0 - 0.2 x10 3/uL) 0.06 Baso # (Auto) (0.0 - 0.2 x10 3/uL) 0.05 Abs Immat Gran (auto) (0.00 - 0.03 x10 3/uL) 0.06 H Add Manual Diff NO Immature Gran % (0.0 - 2.0 %) 0.5 Nucleated RBC % (0 - 0 %) 0.0 Nucleated RBCs # (Man) (0.0 - 0.1 x10 3/uL) 0.00 Results: labs reviewed, vital signs stable, narda personally rev'd, current med profile rev'd Quality: Trauma Gen Surg Current MedicationsCurrent medication review: Current Medications Sig/Marie Start time Last Medication Dose Route Stop Time Status Admin Atorvastatin Calcium 40 MG BEDTIME 11/27 2100 AC PO 12/26 2059 Insulin Human Lispro 0 AC HS 11/27 1630 AC 11/27 SUBQ 02/24 1629 1625 Mupirocin 1 APPLIC BID 11/27 1400 AC 11/27 NASAL 12/01 2101 1348 Dextrose/Water 125 ML ASDIR PRN 11/27 1300 CKD IV 02/24 1259 Dextrose/Water 250 ML ASDIR PRN 11/27 1300 CKD IV 02/24 1259 Glucagon 1 MG ASDIR PRN 11/27 1300 AC IM 02/24 1259 Heparin Sodium 0 ASDIR PRN 11/27 1015 AC IV 02/24 1014 Heparin Sodium 500 ML ASDIR 11/27 1015 CKD 11/27 (Porcine) IV 02/24 1014 1234 Nicotine 7 MG DAILY 11/27 1015 CKD 11/27 TRANSDERM 02/24 1014 1247 Metoprolol Succinate 25 MG DAILY 11/27 0900 AC 11/27 PO 02/24 0859 0838 Nitroglycerin 0.4 MG Q5M PRN PRN 11/27 0715 AC 11/27 SL 1437 Perflutren Lipid 0 .STK-MED ONE 11/27 0653 DC Microsphere IV Acetaminophen 650 MG Q6H PRN PRN 11/27 0200 AC PO 02/24 0159 Morphine Sulfate 2 MG Q4H PRN PRN 11/27 0200 AC 11/27 IV 12/02 0159 1520 Home Medications:ATORVASTATIN (LIPITOR) 40 MG PO BEDTIME METOPROLOL SUCC XL (TOPROL XL) 25 MG PO DAILY ASPIRIN 81 MG PO DAILY I attest that the foregoing medication list in the medical record is true, accurate, and complete to the best of my knowledge. Diagnosis, Assessment PlanHospital course to date:This is a 53-year-old gentleman with past medical history of coronary artery disease status post previous PCI in the past, hypertension, diabetes, hyperlipidemia who presented to [facility] with complaints of chest pains. He previously underwent left heart catheterization about 1 month ago and was referred for bypass surgery in the outpatient setting however he did not get hisoutpatient appointment yet. The patient reports back to the hospital with complaints of chest pains radiating to the left arm. 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 Patient reports history of chronic pain, Also reports he smokes 1 pack a day for the past 40 years.Denies alcohol Assessment/plan1. Coronary artery disease Workup for CABG2. Chest pain Patient given nitro and morphine. Will transfer the patient to CCU for heparin drip and nitro drip.3. Hypertension4. Hyperlipidemia5. Diabetes The patient reports he took his last Plavix on 11/25/2023 prior to his hospital admission. Will obtain a stat platelet response to Plavix.Obtain cardiac workup stat including carotid Dopplers, CT of the chest etc.Patient was seen and examined Dr. Mayfield. Plan of care discussed with multidisciplinary team. Patient's questions were answered.Further recommendations to followObtain platelet response plavix. 11/28/23Patient in stable condition, reports some chest pain on and offContinue heparin dripPlatelet response to plavix 117, [facility]-will reviewContinue preop workupI will tentatively schedule him for CABG in AM pending platelet response to plavix. I have discussed with him the procedure, risks involved, benefits, STS calculated risk score, alternatives, and complications. Patient verbalized understanding and willing to proceed. All questions were answered. 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 Procedure cancelled today and CTA heart ordered for further evaluation 12/01/23Patient doing wellCTA heart reviewed, report pendingStop heparin and start eliquis 5 mg BIDDiscontinue central lineDiscussed plan of care with blacktop paver operator and will hold off on surgery due to thrombus, repeat echo in 3 months to reevaluate, continue blood thinners, no surgical intervention at this timeFollow up with cardiology for management of chest painPatient verbalized understanding and all questions answered. Consultants: cardiology, cardiovascular surgery, critical/passenger conductor, hospitalist at [address] [facility] #:[id number] OF REPORTPRProgress [id number]:03:00G.[id number] able for patient haghREAKMXSINNKIFK2104-48-04J66:50:27 [facility] 2023-12-01 12:02:00 [id number] K4X/5/xbcYOBtteS905/N19afqeus IwzwqI7HCDzGqp4DALXlOsW0unF5734-12-40F76:02:00 [facility] ([facility])Critical Care Progress NoteREPORT#:[id number] REPORT STATUS: SignedREPORT INITIALIZATION DATE:12/01/23 TIME: 1201 PATIENT: CHARAN RESTREPO UNIT #: [id number]#: [id number] ROOM/BED: 3302-1DOB: [birth year] AGE: 53 SEX: M ATTEND: Papo Mayfield MDADM AUTHOR: Michelle GalvezPREPT SERVICE DT/TIME: 12/01/23 1202* ALL edits or amendments must be made on the electronic/computer document * SubjectiveChief complaint:Chest PainHPI:53-year-old gentleman with past medical history of coronary artery disease status post previous PCI in the past, hypertension, diabetes, hyperlipidemia whotransferred from [facility] to [facility] for CABG evaluation. Objective GeneralVS/I OLast Documented: Result Date Time Temp 98.3 12/01 0800 Pulse Ox 97 12/01 0700 B/P 136/68 12/01 0700 B/P Mean 94 12/01 0700 Pulse 65 12/01 0700 Resp 18 12/01 0700 FiO2 21 11/30 1913 O2 Delivery Room air 11/30 191 O2 Flow Rate 2 11/27 0900 24 hour I O ending at 0700: 12/01 0700 11/30 1900 Intake Total 964.00 970 Output Total 900 Balance 964.00 70 Intake, IV 364.00 Intake, Oral 600 720 Intake, Oral 250 Supplement Number 0 Bowel Movements Number Voids 4 3 Output, Urine 900 Patient 76.5 kg Weight Weight Bed scale Measurement Method PATIENT WEIGHT: Weight (lb): 168Weight (oz): 10.46Weight (kg): 76.500 Free Text Obj NotesFree Text Obj Notes:Physical exam:Gral appearance: intubated, sedatedHead/Eyes: NC/AT, pupuls round, sluggishNeck: No JVD, No swelling, has R IJ central line. CV: RRR, S1/S2, no murmursLungs: CTAB. ETT in place, has cough reflexGI: Soft, ND/NT, bowel sounds presentGU: Gutierrez with graham colored urineEXT: no edema or cyanosis. WarmSkin: No rashNeuro: limited by sedation. Treatment Prophylaxis Treatment ProphylaxisLines: arterial, CVC, peripheralDrain(s)/tube(s): Drain(s)/tube(s): urinary catheter Diagnosis, Assessment PlanFree text A P:53-year-old gentleman with past medical history of coronary artery disease status post previous PCI in the past, hypertension, diabetes, hyperlipidemia whotransferred from [facility] to [facility] for CABG evaluation. 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 Per CTS transition to Eliquis 5 mg BID x 3 month-repeat ECHO in 3 month. No surgery until follow up ECHO. D/c right IJ-may transfer to tele floor. Neuro:Awake and follows commandHOH CV:LV thrombusHeparin dripTo start Eliquis 5 mg PO BIDHLD-Atorvastatin Mutivessel DzMetoprolol 25 mg XLASA 81 mg Po dailySystolic and diastolic HF, LVEF 30-34% RESP:RACXR as neededNeb TX as needed GI/:VoidingPPIBowel regimen ENDO:Hx DMInsulin high doseLantus 5 units BID HEME:Heparin DripTransition to Eliquis ID:Mild elevation in WBCAfebrile 35 minutes of critical care spent. Consultants: cardiology, cardiovascular surgery, critical/passenger conductor, hospitalist Quality: Gen Med Crit Care Current MedicationsCurrent medication review: Current Medications Sig/Marie Start time Last Medication Dose Route Stop Time Status Admin Atorvastatin Calcium 40 MG BEDTIME 11/27 2100 AC PO 12/26 2059 Insulin Human Lispro 0 AC HS 11/27 1630 AC 11/27 SUBQ 02/24 1629 1625 Mupirocin 1 APPLIC BID 11/27 1400 AC 11/27 NASAL 12/01 2101 1348 Dextrose/Water 125 ML ASDIR PRN 11/27 1300 CKD IV 02/24 1259 Dextrose/Water 250 ML ASDIR PRN 11/27 1300 CKD IV 02/24 1259 Glucagon 1 MG ASDIR PRN 11/27 1300 AC IM 02/24 1259 Heparin Sodium 0 ASDIR PRN 11/27 1015 AC IV 02/24 1014 Heparin Sodium 500 ML ASDIR 11/27 1015 CKD 11/27 (Porcine) IV 02/24 1014 1234 Nicotine 7 MG DAILY 11/27 1015 CKD 11/27 TRANSDERM 02/24 1014 1247 Metoprolol Succinate 25 MG DAILY 11/27 0900 AC 11/27 PO 02/24 0859 0838 Nitroglycerin 0.4 MG Q5M PRN PRN 11/27 0715 AC 11/27 SL 1437 Perflutren Lipid 0 .STK-MED ONE 11/27 0653 DC Microsphere IV Acetaminophen 650 MG Q6H PRN PRN 11/27 0200 AC PO 02/24 0159 Morphine Sulfate 2 MG Q4H PRN PRN 11/27 0200 AC 11/27 IV 12/02 0159 1520 Home Medications:ATORVASTATIN (LIPITOR) 40 MG PO BEDTIME METOPROLOL SUCC XL (TOPROL XL) 25 MG PO DAILY ASPIRIN 81 MG PO DAILY I attest that the foregoing medication list in the medical record is true, accurate, and complete to the best of my knowledge. at 1231 RPT #:[id number] OF REPORTPRProgress [id number]:02:00G.[id number] able for patient xnllUEVTCZVWHDJHQM5561-42-15P26:11:26 [facility] 2023-12-01 12:02:00 [id number] EnNcCle9BjRKjAQMaNiSw2NqZ6/eu 7hIifGtptts4lv8HnvvbrP7yw/31080-95-22Q12:02:00 [facility]Hospital[facility] Progress NoteREPORT#:[id number] REPORT STATUS: SignedREPORT INITIALIZATION DATE:12/01/23 TIME: 120 PATIENT: CHARAN RESTREPO UNIT #: [id number]#: [id number] [address] [birth year] AGE: 53 SEX: M ATTEND: Papo Mayfield [facility] AUTHOR: Marilyn Mayfield MDREPT SERVICE DT/TIME: 12/01/23 1202* ALL edits or amendments must be made on the electronic/computer document * SubjectiveChief complaint:mild cp Review of SystemsCardiovascular:Reports: chest pain. All systems rev neg: except as noted Objective GeneralVS/I O:Vital Signs: Date Time Temp Pulse Resp B/P B/P Pulse O2 O2 Flow FiO2 Mean Ox Delivery Rate 12/01 0800 36.8 12/01 0700 65 18 136/68 94 97 12/01 0600 66 14 132/63 90 97 02 0550 36.6 02 0500 71 16 127/64 89 97 12/01 0400 69 15 131/63 90 97 12/01 0300 69 17 114/59 80 96 12/01 0200 71 14 124/65 87 96 12/01 0100 72 17 125/67 90 97 02/ 0000 70 16 128/62 87 97 02/ 2300 77 15 123/68 89 98 02/ 2200 72 14 117/62 83 96 / 2100 100 21 128/78 96 97 02/ 2009 36.4 02 2000 75 16 119/67 87 97 02/ 1913 98 Room air 21 11/30 1900 78 15 119/65 85 97 02/ 1817 89 38 98 02/ 1800 68 11 128/68 91 98 02/ 1730 69 15 96 02/ 1700 73 14 126/66 89 98 02/ 1630 84 26 100 02/ 1612 65 11 100 02/ 1601 79 42 148/82 107 98 02/ 1600 74 21 99 / 1531 66 127/66 91 99 02/ 1504 74 16 99 02/ 1500 75 14 98 02/ 1430 67 11 138/68 90 97 02/ 1400 207/94 130 02/ 1400 94 27 176/83 119 100 02/ 1340 83 100 50 02/ 1340 83 28 100 02/ 1330 68 12 119/65 84 99 02/ 1300 250/112 157 / 1300 109 21 211/114 155 100 02/ 1241 142/65 92 02/ 1241 61 12 141/77 103 100 02/ 1239 50 02/ 1239 100 Ventilator 50 24 hour I O ending at 0700: 02/10 0700 02/09 1900 Intake Total 964.00 970 Output Total 900 Balance 964.00 70 Intake, IV 364.00 Intake, Oral 600 720 Intake, Oral 250 Supplement Number 0 Bowel Movements Number Voids 4 3 Output, Urine 900 Patient 76.5 kg Weight Weight Bed scale Measurement Method PATIENT WEIGHT: Weight (lb): 168Weight (oz): 10.46Weight (kg): 76.500 Medications:Active Meds + DC'd Last 24 HrsApixaban (ELIQUIS 5MG TABLET) 5 MG BID PO Magnesium Hydroxide (MILK OF MAGNESIA) 30 ML ONCE ONE PO (DC) Nitroglycerin (NITROSTAT) 0.4 MG Q5M PRN PRN SL Iopamidol (ISOVUE-370 100ML) 100 ML .STK-MED ONE IV (DC) Metoprolol Tartrate (LOPRESSOR) 5 MG ONCE ONE IV (DC) Metoprolol Tartrate (LOPRESSOR) 0 .STK-MED ONE IV (DC) Propofol (DIPRIVAN 1,000MG/100ML) 100 ML .STK-MED ONE IV (DC) Fentanyl Citrate (Fentanyl 1,000MCG/NS 100ML) 100 ML ASDIR IV (DC) Propofol (DIPRIVAN 1,000MG/100ML) 100 ML TITRATE IV (DC) Cefazolin Sodium (KEFZOL OR ANCEF) 2 GM PREOP ONCALL IV (DC) Vancomycin HCl (VANCOMYCIN HCL) 1,250 MG PREOP ONCALL IV (DC) Sodium Chloride (SODIUM CHLORIDE 0.9%) 250 MLVerapamil HCl (ISOPTIN) 16.6 MG .Q24H ONE IV (DC) Heparin Sodium (Porcine) (HEPARIN SODIUM) 1,660 UNIT Sodium Bicarbonate (SODIUM BICARBONATE) 0.7 ML Nitroglycerin/Dextrose (NITROGLYCERIN 50MG/D5W 250ML) 8.3 MG Lactated Ringer's (LACTATED RINGERS) 949.5 MLSodium Chloride (SODIUM CHLORIDE) 20 ML ASDIR IV Morphine Sulfate (morphine SULFATE) 2 MG Q4H PRN PRN IV Acetaminophen (TYLENOL EXTRA STRENGTH) 1,000 MG PREOP ONCALL PO (CKD) Gabapentin (NEURONTIN) 200 MG PREOP ONCALL PO (CKD) Aspirin (ASPIRIN) 81 MG DAILY PO Hydrocodone Bitart/Acetaminophen (NORCO 10/325) 1 TAB TID PRN PRN PO Atorvastatin Calcium (LIPITOR) 40 MG BEDTIME PO Insulin Human Lispro (HUMALOG) 0 AC HS SUBQ Mupirocin (BACTROBAN 2% 22 GM OINTMENT) 1 APPLIC BID NASAL Dextrose/Water (DEXTROSE 10% IN WATER) 125 ML ASDIR PRN IV (CKD) Dextrose/Water (DEXTROSE 10% IN WATER) 250 ML ASDIR PRN IV (CKD) Glucagon (GLUCAGON) 1 MG ASDIR PRN IM Heparin Sodium (HEPARIN 5000 UNITS/ML) 0 ASDIR PRN IV (DC) Heparin Sodium (Porcine) (HEPARIN 25,000 UNITS/ 1/2NS 500ML) 500 ML ASDIR IV (DC) Nicotine (NICODERM) 7 MG DAILY TRANSDERM (CKD) Metoprolol Succinate (TOPROL XL) 25 MG DAILY PO Acetaminophen (TYLENOL) 650 MG Q6H PRN PRN PO Physical ExamGeneral appearance: alert, awake, orientedHead/Eyes: atraumatic, normal conjunctiva/sclera, normal eyelids/periorb.Neck: full range of motion, non-tender, no JVDCardiovascular: normal heart sounds, regular rate rhythmRespiratory: aerating well, clear to auscultationAbdomen: non-tender, normal bowel sounds, soft, no distentionExtremities: moves all, no calf tenderness, no edemaNeuro/DRAWER MAKER: alert, oriented X 3, CNII-XII intact, normal speech, no motor deficits, no sensory deficitsSkin: dry, intact ResultsFindings/Data:Laboratory Tests 12/01 12/01 12/01 11/30 1036 0737 0414 2204 Chemistry Sodium (134 - 147 mEq/L) 138 Potassium (3.4 - 5.0 mEq/L) 4.4 Chloride (100 - 108 mEq/L) 108 Carbon Dioxide (21 - 33 mEq/l) 26 Anion Gap (0 - 20) 9 BUN (7 - 25 mg/dL) 16 Creatinine (0.6 - 1.3 mg/dL) 1.0 Glomerular Filtr Rate (90 - 95) 89.4 L Glucose (77 - 141 mg/dL) 263 H POC Glucose (70 - 110 MG/DL) 196 H 247 H 340 H Calcium (8.0 - 10.5 mg/dL) 9.0 Ionized Calcium Zina (1.09 - 1.30 MMOL/L) 1.14 Phosphorus (2.5 - 4.9 MG/DL) 3.7 Magnesium (1.6 - 2.6 mg/dL) 2.06 Laboratory Tests 12/01 2146 Coagulation PTT (Ulises) (25.0 - 39.5 Seconds) 27.8 58.8 H Laboratory Tests 12/014 Hematology WBC (4.5 - 11.0 x10 3/uL) 12.3 H RBC (4.00 - 5.60 x10 6/uL) 5.39 Hgb (12.5 - 16.9 g/dL) 15.3 Hct (37.5 - 50.7 %) 45.7 MCV (81.0 - 99.0 fL) 84.8 MCH (27.0 - 33.0 pg) 28.4 MCHC (33.0 - 37.0 g/dL) 33.5 RDW (11.5 - 14.5 %) 13.8 Plt Count (150 - 400 x10 3/uL) 189 MPV (7.0 - 9.0 fL) 10.3 H Neut % (Auto) (56.0 - 77.0 %) 83.6 H Lymph % (Auto) (14.0 - 32.0 %) 8.1 L Fisher % (Auto) (4.8 - 9.0 %) 6.9 Eos % (Auto) (0.3 - 3.7 %) 0.5 Baso % (Auto) (0.0 - 2.0 %) 0.4 Neut # (Auto) (2.0 - 7.6 x10 3/uL) 10.26 H Lymph # (Auto) (1.0 - 3.8 x10 3/uL) 1.00 Fisher # (Auto) (0.1 - 0.8 x10 3/uL) 0.85 H Eos # (Auto) (0.0 - 0.2 x10 3/uL) 0.06 Baso # (Auto) (0.0 - 0.2 x10 3/uL) 0.05 Abs Immat Gran (auto) (0.00 - 0.03 x10 3/uL) 0.06 H Add Manual Diff NO Immature Gran % (0.0 - 2.0 %) 0.5 Nucleated RBC % (0 - 0 %) 0.0 Nucleated RBCs # (Man) (0.0 - 0.1 x10 3/uL) 0.00 Radiology data:Recent Impressions:RADIOLOGY - XR CHEST 1 V 11/29 0837 Report Impression - Status: SIGNED Entered: 11/29/2023 1449 IMPRESSION:No acute cardiopulmonary abnormality.Impression By: Donnell Barfield M.D.RADIOLOGY - XR CHEST 1 V 11/30 1248 Report Impression - Status: SIGNED Entered: 11/30/2023 1348 IMPRESSION: Interval placement of endotracheal tube in right IJ central venousline in good position. No pneumothorax. Mild pulmonary edema.Impression By: [email or web address] Colleen Brizuela M.D. Treatment Prophylaxis Treatment ProphylaxisDrain(s)/tube(s): Drain(s)/tube(s): urinary catheter Diagnosis, Assessment PlanConsultants: cardiology, cardiovascular surgery, critical/passenger conductor, hospitalist Free Text DxA P NotesFree text DxA P notes: CAD with stents DMHTNHLD tele cardiology consult CV surgeon -- work up for CABG HTN-- BP well control -- continue metoprololDM-- sliding scale -- Hba1c HLD--continue lipitor will follow the patient and manage DM with you during the hospital stay 11/28- he complaint of cp -- monitor in ccu - manage as cardiology -- pre OP for CABG -- may be this week as surgeon -- DM -- not well control -- adjust insulin 11/29 Pending CABG. Continue monitoring in CCU.11/30 On heparin. Pending surgery. 12/01- he found thrombus in ANAND yesterday -- surgery was cancelled -- on eliquis now -- he is hemodynamic stable at 2017 RPT #:[id number] OF REPORTPRProgress [id number]:02:00G.[id number] able for patient ivtiUXGNBZOCSKGHEC0409-81-12G34:21:41 [facility] 2023-11-30 13:13:00 [id number] oC+CiiVr/ONX/RBdRabvl/VBNCVEl 0LxUNLustmNKBexgViE46GOVJFk9003-89-58D42:13:00 [facility] ([facility])Critical Care Consult NoteREPORT#:[id number] REPORT STATUS: SignedREPORT INITIALIZATION DATE:11/30/23 TIME: 1313 PATIENT: CHARAN RESTREPO UNIT #: [id number]#: [id number] [address] [birth year] AGE: 53 SEX: M ATTEND: Papo Mayfield MDADM AUTHOR: Viki CartwrightPREPT SERVICE DT/TIME: 11/30/23 1313* ALL edits or amendments must be made on the electronic/computer document * History of Present Illness HPIRequesting clinician: Dr. Judd for consult:ICU mgtChief complaint:Chest PainPCP:PCP: Jesusita Osuna MD HPI:53-year-old gentleman with past medical history of coronary artery disease status post previous PCI in the past, hypertension, diabetes, hyperlipidemia whotransferred from [facility] to [facility] for CABG evaluation. History - Adult longitudinalPast medical history:Reports: Coronary artery disease, Diabetes mellitus. Past surgical history:Reports: (Left Tib, Fib). Family history:Denies: CAD < 40 yrs old. 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 Objective Physical ExamVS/I O:Last Documented: Result Date Time FiO2 50 11/30 1239 Pulse Ox 100 11/30 1239 O2 Delivery Ventilator 11/30 1239 Pulse 135 11/30 09 Resp 32 11/30 940 B/P 122/67 02/09 0900 B/P Mean 89 11/30 899 Temp 98.9 11/30 0717 O2 Flow Rate 2 11/27 899 24 hour I O ending at 0700: 11/30 1900 Intake Total 240 Output Total Balance 240 Intake, Oral 240 Number Voids 4 Patient 75.5 kg Weight Weight Bed scale Measurement Method Patient Weight and BMI Weight (kg): 75.500 BMI: 23.9 Medications:Active Meds + DC'd Last 24 HrsPropofol (DIPRIVAN 1,000MG/100ML) 100 ML .STK-MED ONE IV (DC) Fentanyl Citrate (Fentanyl 1,000MCG/NS 100ML) 100 ML ASDIR IV (CKD) Propofol (DIPRIVAN 1,000MG/100ML) 100 ML TITRATE IV (CKD) Perflutren Lipid Microsphere (Definity) 0 .STK-MED ONE IV (DC) Perflutren Protein Type A Microsphe (OPTISON 3ML VIAL) 0 .STK-MED ONE IV (DC) Midazolam HCl (VERSED) 0 .STK-MED ONE .ROUTE (DC) Heparin Sodium (HEPARIN SODIUM) 0 .STK-MED ONE .ROUTE (DC) Lidocaine HCl (XYLOCAINE IV) 0 .STK-MED ONE IV (DC) Sodium Bicarbonate (SODIUM BICARBONATE) 0 .STK-MED ONE IV (DC) Sodium Chloride (SODIUM CHLORIDE 0.9%) 0 .STK-MED ONE IV (DC) Dexamethasone Sodium Phosphate (DECADRON) 0 .STK-MED ONE .ROUTE (DC) Fentanyl Citrate (SUBLIMAZE) 0 .STK-MED ONE IV (DC) Lidocaine HCl (XYLOCAINE) 0 .STK-MED ONE .ROUTE (DC) Magnesium Sulfate (MAGNESIUM SULFATE) 0 .STK-MED ONE IV (DC) Ondansetron HCl (ZOFRAN) 0 .STK-MED ONE .ROUTE (DC) Phenylephrine HCl (LORENA-SYNEPHRINE 10MG/ML AMP) 0 .STK-MED ONE .ROUTE (DC) Propofol (DIPRIVAN 200MG/20ML INJECTION) 20 ML .STK-MED ONE IV (DC) Rocuronium [place] (ZEMURON) 0 .STK-MED ONE IV (DC) Aminocaproic Acid (AMICAR) 0 .STK-MED ONE .ROUTE (DC) Heparin Sodium (HEPARIN SODIUM) 0 .STK-MED ONE .ROUTE (DC) Cefazolin Sodium (KEFZOL OR ANCEF) 0 .STK-MED ONE .ROUTE (DC) Epinephrine HCl (EPINEPHrine 4 mg/D5W 250 mL) 250 ML .STK-MED ONE IV (DC) Insulin Human Regular (HumuLIN R 100 UNITS/NS 100ML) 100 ML .STK-MED ONE IV (DC) Sodium Chloride (SODIUM CHLORIDE 0.9%) 250 ML .STK-MED ONE IV (DC) Vancomycin HCl (Vancomycin 1,250 mg Inj (B2)) 0 .STK-MED ONE IV (DC) Magnesium Sulfate (MAGNESIUM SULFATE) 0 .STK-MED ONE .ROUTE (DC) Norepinephrine Bitartrate (NOREPINEPHRINE 8 MG/NS 250 ML) 250 ML .STK-MED ONE IV (DC) Protamine Sulfate (PROTAMINE SULFATE) 0 .STK-MED ONE IV (DC) Ropivacaine (NAROPIN 0.5% 150 MG/30mL) 0 .STK-MED ONE .ROUTE (DC) Cefazolin Sodium (KEFZOL OR ANCEF) 2 GM PREOP ONCALL IV (CKD) Metoprolol Tartrate (LOPRESSOR) 6.25 MG ONCE ONE PO (CAN) Vancomycin HCl (VANCOMYCIN HCL) 1,250 MG PREOP ONCALL IV (CKD) Sodium Chloride (SODIUM CHLORIDE 0.9%) 250 MLVerapamil HCl (ISOPTIN) 16.6 MG .Q24H ONE IV (CKD) Heparin Sodium (Porcine) (HEPARIN SODIUM) 1,660 UNIT Sodium Bicarbonate (SODIUM BICARBONATE) 0.7 ML Nitroglycerin/Dextrose (NITROGLYCERIN 50MG/D5W 250ML) 8.3 MG Lactated Ringer's (LACTATED RINGERS) 949.5 MLSodium Chloride (SODIUM CHLORIDE) 20 ML ASDIR IV Morphine Sulfate (morphine SULFATE) 2 MG Q4H PRN PRN IV Cefazolin Sodium (KEFZOL OR ANCEF) 2 GM PREOP ONCALL IV (DC) Vancomycin HCl (VANCOMYCIN HCL) 1,248 MG PREOP ONCALL IV (DC) Sodium Chloride (SODIUM CHLORIDE 0.9%) 250 MLVerapamil HCl (ISOPTIN) 16.6 MG .Q24H ONE IV (DC) Heparin Sodium (Porcine) (HEPARIN SODIUM) 1,660 UNIT Sodium Bicarbonate (SODIUM BICARBONATE) 0.7 ML Nitroglycerin/Dextrose (NITROGLYCERIN 50MG/D5W 250ML) 8.3 MG Lactated Ringer's (LACTATED RINGERS) 949.5 MLAcetaminophen (TYLENOL EXTRA STRENGTH) 1,000 MG PREOP ONCALL PO (CKD) Gabapentin (NEURONTIN) 200 MG PREOP ONCALL PO (CKD) Sodium Chloride (SODIUM CHLORIDE) 20 ML ASDIR IV (DC) Aspirin (ASPIRIN) 81 MG DAILY PO Hydrocodone Bitart/Acetaminophen (NORCO 10/325) 1 TAB TID PRN PRN PO Atorvastatin Calcium (LIPITOR) 40 MG BEDTIME PO Insulin Human Lispro (HUMALOG) 0 AC HS SUBQ Mupirocin (BACTROBAN 2% 22 GM OINTMENT) 1 APPLIC BID NASAL Dextrose/Water (DEXTROSE 10% IN WATER) 125 ML ASDIR PRN IV (CKD) Dextrose/Water (DEXTROSE 10% IN WATER) 250 ML ASDIR PRN IV (CKD) Glucagon (GLUCAGON) 1 MG ASDIR PRN IM Heparin Sodium (HEPARIN 5000 UNITS/ML) 0 ASDIR PRN IV Heparin Sodium (Porcine) (HEPARIN 25,000 UNITS/ 1/2NS 500ML) 500 ML ASDIR IV (CKD) Nicotine (NICODERM) 7 MG DAILY TRANSDERM (CKD) Metoprolol Succinate (TOPROL XL) 25 MG DAILY PO Nitroglycerin (NITROSTAT) 0.4 MG Q5M PRN PRN SL (DC) Acetaminophen (TYLENOL) 650 MG Q6H PRN PRN PO ResultsFindings/Data:Laboratory Tests 11/30/23 0402:[Embedded Image Not Available] 11/29/23 1731:[Embedded Image Not Available]Laboratory Tests 11/30 1108 Blood Gas O2 Saturation (90 - 100 %) 99.9 ABG pH (7.35 - 7.45) 7.270 *L ABG pCO2 (35.0 - 45 mmHg) 48.2 H ABG pO2 (80 - 100.0 mmHg) 349.7 *H ABG HCO3 (22.0 - 26.0 MMOL/L) 22.1 ABG Total CO2 23.6 ABG Base Excess (-4.0 - 4.0 MMOL/L) -5.1 L ABG Hematocrit (37.5 - 50.7 %) 45 ABG Hemoglobin (12.5 - 16.9 G/DL) 15.2 Sodium (134 - 147 mmol/L) 140 Potassium (3.4 - 5.0 mmol/L) 3.7 Chloride (100 - 108 mmol/L) 106 Ionized Calcium (1.12 - 1.32 MMOL/L) 1.17 Lactic Acid (0.9 - 1.7 mmol/l) 0.5 L Laboratory Tests 11/30 11/30 11/30 11/29 11/29 1108 0816 0402 2039 1731Chemistry Sodium (134 - 147 mEq/L) 137 139 Potassium (3.4 - 5.0 mEq/L) 4.3 3.3 L Chloride (100 - 108 mEq/L) 110 H 111 H Carbon Dioxide (21 - 33 mEq/l) 24 24 Anion Gap (0 - 20) 7 7 BUN (7 - 25 mg/dL) 18 22 Creatinine (0.6 - 1.3 mg/dL) 0.8 0.7 POC Creatinine (0.8 - 1.3 mg/dL) 0.4 L Glomerular Filtr Rate (90 - 95) 105.2 H 109.5 H Glucose (77 - 141 mg/dL) 174 H 219 H POC Glucose (70 - 110 MG/DL) 134 H 267 H POC Glucose (mg/dL) (70 - 110 MG/DL) 214 H Calcium (8.0 - 10.5 mg/dL) 9.1 7.7 L Ionized Calcium Zina (1.09 - 1.30 1.14MMOL/L) Phosphorus (2.5 - 4.9 MG/DL) 3.6 Magnesium (1.6 - 2.6 mg/dL) 2.06 Total Bilirubin (0.0 - 1.0 mg/dL) 0.50 AST (8 - 34 IUnit/L) 24 ALT (10 - 49 IUnit/L) 25 Total Alk Phosphatase (20 - 125 52IUnit/L) Total Protein (6.4 - 8.2 g/dL) 5.3 L Albumin (3.4 - 5.0 g/dL) 3.10 L 11/29 1600 Chemistry POC Glucose (70 - 110 MG/DL) 192 H Laboratory Tests 11/30 11/30 11/30 11/29 1110 0619 0006 1731 Coagulation INR (0.8 - 1.2) 1.0 1.1 PTT (Irwin) (25.0 - 39.5 Seconds) 57.9 H 78.6 H 79.3 H PT Patient/Control Mix (9.3 - 12.9 SECONDS) 11.3 12.0 Activated Coag Time (74 - 137 SEC) 131 Laboratory Tests 11/30 11/29 0402 1731 Hematology WBC (4.5 - 11.0 x10 3/uL) 7.6 8.0 RBC (4.00 - 5.60 x10 6/uL) 5.75 H 5.48 Hgb (12.5 - 16.9 g/dL) 16.3 15.8 Hct (37.5 - 50.7 %) 48.9 45.7 MCV (81.0 - 99.0 fL) 85.0 83.4 MCH (27.0 - 33.0 pg) 28.3 28.8 MCHC (33.0 - 37.0 g/dL) 33.3 34.6 RDW (11.5 - 14.5 %) 13.7 13.9 Plt Count (150 - 400 x10 3/uL) 210 208 MPV (7.0 - 9.0 fL) 10.3 H 10.1 H Neut % (Auto) (56.0 - 77.0 %) 63.1 60.3 Lymph % (Auto) (14.0 - 32.0 %) 22.3 25.0 Fisher % (Auto) (4.8 - 9.0 %) 8.0 8.0 Eos % (Auto) (0.3 - 3.7 %) 4.7 H 4.9 H Baso % (Auto) (0.0 - 2.0 %) 1.2 1.0 Neut # (Auto) (2.0 - 7.6 x10 3/uL) 4.79 4.83 Lymph # (Auto) (1.0 - 3.8 x10 3/uL) 1.69 2.00 Fisher # (Auto) (0.1 - 0.8 x10 3/uL) 0.61 0.64 Eos # (Auto) (0.0 - 0.2 x10 3/uL) 0.36 H 0.39 H Baso # (Auto) (0.0 - 0.2 x10 3/uL) 0.09 0.08 Abs Immat Gran (auto) (0.00 - 0.03 x10 3/uL) 0.05 H 0.06 H Immature Gran % (0.0 - 2.0 %) 0.7 0.8 Nucleated RBC % (0 - 0 %) 0.0 0.0 Nucleated RBCs # (Man) (0.0 - 0.1 x10 3/uL) 0.00 0.00 Microbiology:11/29 0147 NASAL: MRSA DNA Surveillance Screen - ORD11/28 180 NASAL: MSSA Surveillance Screen - COMP11/28 180 NASAL: MRSA DNA Surveillance Screen - COMP11/27 182 NASAL: MSSA Surveillance Screen - COMP11/27 182 NASAL: MRSA DNA Surveillance Screen - COMP Radiology data:Recent Impressions:RADIOLOGY - XR CHEST 1 V 11/30 1248 Report Impression - Status: SIGNED Entered: 11/30/2023 1348 IMPRESSION: Interval placement of endotracheal tube in right IJ central venousline in good position. No pneumothorax. Mild pulmonary edema.Impression By: [email or web address] - Sarah Brizuela M.D. Results: labs reviewed, rhythm personally rev'd, x-ray personally reviewed, current med profile rev'd Free Text Obj NotesFree Text Obj Notes:Physical exam:Gral appearance: intubated, sedatedHead/Eyes: NC/AT, pupuls round, sluggishNeck: No JVD, No swelling, has R IJ central line. CV: RRR, S1/S2, no murmursLungs: CTAB. ETT in place, has cough reflexGI: Soft, ND/NT, bowel sounds presentGU: Gutierrez with graham colored urineEXT: no edema or cyanosis. WarmSkin: No rashNeuro: limited by sedation. Treatment Prophylaxis Treatment ProphylaxisIndication for urinary catheter: accurate I/O and crit illUrine color: amberOxygen: ventilatorVentilator: assist controlRASS Score: Copyright 2012 [facility] [employer], All rights reserved Copyright 2012 [employer], All rights reserved RASS Score: -2 Light sedationSedation: fentanyl, propofolLines: arterial, CVC, peripheralDrain(s)/tube(s): Drain(s)/tube(s): urinary catheter Diagnosis, Assessment Plan Diagnosis, Assessment PlanProblem list/A P: 1. Hypertension 2. Hyperlipidemia 3. Coronary artery disease 4. Heart failure 5. STEMI (ST elevation myocardial infarction) 6. Wheezing 7. History of heart artery stent 8. Tobacco use Orders: Procedure Date/time Status XR CHEST 1V 11/30 1245 Active Consultants: cardiology, cardiovascular surgery, critical/passenger conductor, hospitalistPlan discussed with: spouse/partner, collaborating MD, nurse, pharmacy/pharmacist Code Status/Resusc. DiscussionCode status: full codeFree text DxA P:53-year-old gentleman with past medical history of coronary artery disease status post previous PCI in the past, hypertension, diabetes, hyperlipidemia [facility] for [facility]G evaluation. Problems:* Multivessel disease* Chest pain* Systolic and diastolic HF, LVEF 30-34%* HTN* HLD* DM2 Plan:Left for planned cardiac surgery today. Procedure aborted due to concerns of LV thrombus. Patient was transferred to CCU intubated on vent support, with Right neck central line and left radial arterial line. CXR noted.He was started on sedation with propofol and fentanyl briefly but later stoppedas patient was awake and agitated. He was safely extubated to nasal cannula oxygen. CTA of the heart has been ordererd and pendingMonitor for chest painContinue morphine 2mg IV as needed for chest pain, nitro SLHeparin dripASA, statin and BblockerMay resume dietISS with BG checks AC/HSFurther ordered pending clinical course.Appreciate your kind consult.ICC will follow. 37 minutes of critical care spent. at 1826 RPT #:[id number] OF [id number]:13:00G.PDOC2 [id number] for patient [id number]:48:10 [facility] 2023-11-30 12:19:00 [id number] S02/Bk0sns8vbJa6eSpeiyhrtm24245-58-32D89:19:00 [facility] ([facility])Cardiothoracic Surgery ProgREPORT#:[id number] REPORT STATUS: SignedREPORT INITIALIZATION DATE:11/30/23 TIME: 1218 PATIENT: CHARAN RESTREPO UNIT #: [id number]#: [id number] [address] [birth year] AGE: 53 SEX: M ATTEND: Papo Mayfield MDADM AUTHOR: Papo Mayfield MDREPT SERVICE DT/TIME: 11/30/23 121* ALL edits or amendments must be made on the electronic/computer document * SubjectiveChief complaint:chest pain CAD pre op CABG Review of SystemsConstitutional:Denies: chills, fatigue, fever. Skin:Denies: abrasion, bruising, contusion. Allergy/Immun:Denies: allergic reaction, anaphylaxis, hives. ENT:Denies: ear drainage, ear ringing, earache. Respiratory:Denies: DWYER (dyspnea on exertion), pneumonia, SOB. Cardiovascular:Reports: chest pain. Denies: palpitations. :Denies: dysuria, flank pain. Musculoskeletal:Denies: arthritis, extremity pain, joint pain. Neuro:Denies: confusion, dizziness, seizure, syncope. Psych:Denies: agitation, anxiety. All systems rev neg: except as marked Objective GeneralVS/I OLast Documented: Result Date Time Pulse 135 11/30 940 Resp 32 11/30 940 Pulse Ox 96 11/30 929 B/P 122/67 11/30 899 B/P Mean 89 11/30 899 Temp 37.2 11/30 716 O2 Delivery Room air 11/29 1858 O2 Flow Rate 2 11/27 899 24 hour I O ending at 0700: 11/30 0700 11/29 1900 Intake Total 240 Output Total Balance 240 Intake, Oral 240 Number Voids 4 Patient 75.5 kg Weight Weight Bed scale Measurement Method PATIENT WEIGHT: Weight (lb): 166Weight (oz): 7.18Weight (kg): 75.500 Dietitian Nutrition assessmentThe data set between the solid lines has been imported from the dietitian's assessment. BMI Calculated: 23.9Nutrition related diagnosis: Nutrition diagnosis details: Nutrition problem: Nutrition etiology: Nutrition signs and symptoms: Nutrition prescription: Dietitian name: Assessment completed: Physical ExamGeneral appearance: alert, awake, orientedHEENT: anicteric, mucosal membranes moistNeck: full range of motion, non-tenderCardiovascular: normal heart sounds, regular rate rhythmRespiratory: aerating well, symmetric expansionAbdomen: soft, non-tenderGenitourinary: no bladder distention, no flank pain, no foleyExtremities: dry, moves allMusculoskeletal: full range of motionNeuro/DRAWER MAKER: alert, oriented X 3Skin: dry, intact, normal temperaturePsychiatry: normal affect, normal mood Current MedicationsMedications:Active Meds + DC'd Last 24 HrsPerflutren Lipid Microsphere (Definity) 0 .STK-MED ONE IV (DC) Perflutren Protein Type A Microsphe (OPTISON 3ML VIAL) 0 .STK-MED ONE IV (DC) Midazolam HCl (VERSED) 0 .STK-MED ONE .ROUTE (DC) Heparin Sodium (HEPARIN SODIUM) 0 .STK-MED ONE .ROUTE (DC) Lidocaine HCl (XYLOCAINE IV) 0 .STK-MED ONE IV (DC) Sodium Bicarbonate (SODIUM BICARBONATE) 0 .STK-MED ONE IV (DC) Sodium Chloride (SODIUM CHLORIDE 0.9%) 0 .STK-MED ONE IV (DC) Dexamethasone Sodium Phosphate (DECADRON) 0 .STK-MED ONE .ROUTE (DC) Fentanyl Citrate (SUBLIMAZE) 0 .STK-MED ONE IV (DC) Lidocaine HCl (XYLOCAINE) 0 .STK-MED ONE .ROUTE (DC) Magnesium Sulfate (MAGNESIUM SULFATE) 0 .STK-MED ONE IV (DC) Ondansetron HCl (ZOFRAN) 0 .STK-MED ONE .ROUTE (DC) Phenylephrine HCl (LORENA-SYNEPHRINE 10MG/ML AMP) 0 .STK-MED ONE .ROUTE (DC) Propofol (DIPRIVAN 200MG/20ML INJECTION) 20 ML .STK-MED ONE IV (DC) Rocuronium [place] (ZEMURON) 0 .STK-MED ONE IV (DC) Aminocaproic Acid (AMICAR) 0 .STK-MED ONE .ROUTE (DC) Heparin Sodium (HEPARIN SODIUM) 0 .STK-MED ONE .ROUTE (DC) Cefazolin Sodium (KEFZOL OR ANCEF) 0 .STK-MED ONE .ROUTE (DC) Epinephrine HCl (EPINEPHrine 4 mg/D5W 250 mL) 250 ML .STK-MED ONE IV (DC) Insulin Human Regular (HumuLIN R 100 UNITS/NS 100ML) 100 ML .STK-MED ONE IV (DC) Sodium Chloride (SODIUM CHLORIDE 0.9%) 250 ML .STK-MED ONE IV (DC) Vancomycin HCl (Vancomycin 1,250 mg Inj (B2)) 0 .STK-MED ONE IV (DC) Magnesium Sulfate (MAGNESIUM SULFATE) 0 .STK-MED ONE .ROUTE (DC) Norepinephrine Bitartrate (NOREPINEPHRINE 8 MG/NS 250 ML) 250 ML .STK-MED ONE IV (DC) Protamine Sulfate (PROTAMINE SULFATE) 0 .STK-MED ONE IV (DC) Ropivacaine (NAROPIN 0.5% 150 MG/30mL) 0 .STK-MED ONE .ROUTE (DC) Cefazolin Sodium (KEFZOL OR ANCEF) 2 GM PREOP ONCALL IV (CKD) Metoprolol Tartrate (LOPRESSOR) 6.25 MG ONCE ONE PO (CAN) Vancomycin HCl (VANCOMYCIN HCL) 1,250 MG PREOP ONCALL IV (CKD) Sodium Chloride (SODIUM CHLORIDE 0.9%) 250 MLVerapamil HCl (ISOPTIN) 16.6 MG .Q24H ONE IV (CKD) Heparin Sodium (Porcine) (HEPARIN SODIUM) 1,660 UNIT Sodium Bicarbonate (SODIUM BICARBONATE) 0.7 ML Nitroglycerin/Dextrose (NITROGLYCERIN 50MG/D5W 250ML) 8.3 MG Lactated Ringer's (LACTATED RINGERS) 949.5 MLSodium Chloride (SODIUM CHLORIDE) 20 ML ASDIR IV Morphine Sulfate (morphine SULFATE) 2 MG Q4H PRN PRN IV Cefazolin Sodium (KEFZOL OR ANCEF) 2 GM PREOP ONCALL IV (DC) Vancomycin HCl (VANCOMYCIN HCL) 1,248 MG PREOP ONCALL IV (DC) Sodium Chloride (SODIUM CHLORIDE 0.9%) 250 MLVerapamil HCl (ISOPTIN) 16.6 MG .Q24H ONE IV (DC) Heparin Sodium (Porcine) (HEPARIN SODIUM) 1,660 UNIT Sodium Bicarbonate (SODIUM BICARBONATE) 0.7 ML Nitroglycerin/Dextrose (NITROGLYCERIN 50MG/D5W 250ML) 8.3 MG Lactated Ringer's (LACTATED RINGERS) 949.5 MLAcetaminophen (TYLENOL EXTRA STRENGTH) 1,000 MG PREOP ONCALL PO (CKD) Gabapentin (NEURONTIN) 200 MG PREOP ONCALL PO (CKD) Sodium Chloride (SODIUM CHLORIDE) 20 ML ASDIR IV (DC) Aspirin (ASPIRIN) 81 MG DAILY PO Hydrocodone Bitart/Acetaminophen (NORCO 10/325) 1 TAB TID PRN PRN PO Atorvastatin Calcium (LIPITOR) 40 MG BEDTIME PO Insulin Human Lispro (HUMALOG) 0 AC HS SUBQ Mupirocin (BACTROBAN 2% 22 GM OINTMENT) 1 APPLIC BID NASAL Dextrose/Water (DEXTROSE 10% IN WATER) 125 ML ASDIR PRN IV (CKD) Dextrose/Water (DEXTROSE 10% IN WATER) 250 ML ASDIR PRN IV (CKD) Glucagon (GLUCAGON) 1 MG ASDIR PRN IM Heparin Sodium (HEPARIN 5000 UNITS/ML) 0 ASDIR PRN IV Heparin Sodium (Porcine) (HEPARIN 25,000 UNITS/ 1/2NS 500ML) 500 ML ASDIR IV (CKD) Nicotine (NICODERM) 7 MG DAILY TRANSDERM (CKD) Metoprolol Succinate (TOPROL XL) 25 MG DAILY PO Nitroglycerin (NITROSTAT) 0.4 MG Q5M PRN PRN SL (DC) Acetaminophen (TYLENOL) 650 MG Q6H PRN PRN PO ResultsFindings/Data:Laboratory Tests 11/30 1108 Blood Gas O2 Saturation (90 - 100 %) 99.9 ABG pH (7.35 - 7.45) 7.270 *L ABG pCO2 (35.0 - 45 mmHg) 48.2 H ABG pO2 (80 - 100.0 mmHg) 349.7 *H ABG HCO3 (22.0 - 26.0 MMOL/L) 22.1 ABG Total CO2 23.6 ABG Base Excess (-4.0 - 4.0 MMOL/L) -5.1 L ABG Hematocrit (37.5 - 50.7 %) 45 ABG Hemoglobin (12.5 - 16.9 G/DL) 15.2 Sodium (134 - 147 mmol/L) 140 Potassium (3.4 - 5.0 mmol/L) 3.7 Chloride (100 - 108 mmol/L) 106 Ionized Calcium (1.12 - 1.32 MMOL/L) 1.17 Lactic Acid (0.9 - 1.7 mmol/l) 0.5 L Laboratory Tests 11/30 11/30 11/30 11/29 11/29 1108 0816 0402 2039 1731Chemistry Sodium (134 - 147 mEq/L) 137 139 Potassium (3.4 - 5.0 mEq/L) 4.3 3.3 L Chloride (100 - 108 mEq/L) 110 H 111 H Carbon Dioxide (21 - 33 mEq/l) 24 24 Anion Gap (0 - 20) 7 7 BUN (7 - 25 mg/dL) 18 22 Creatinine (0.6 - 1.3 mg/dL) 0.8 0.7 POC Creatinine (0.8 - 1.3 mg/dL) 0.4 L Glomerular Filtr Rate (90 - 95) 105.2 H 109.5 H Glucose (77 - 141 mg/dL) 174 H 219 H POC Glucose (70 - 110 MG/DL) 134 H 267 H POC Glucose (mg/dL) (70 - 110 MG/DL) 214 H Calcium (8.0 - 10.5 mg/dL) 9.1 7.7 L Ionized Calcium Zina (1.09 - 1.30 1.14MMOL/L) Phosphorus (2.5 - 4.9 MG/DL) 3.6 Magnesium (1.6 - 2.6 mg/dL) 2.06 Total Bilirubin (0.0 - 1.0 mg/dL) 0.50 AST (8 - 34 IUnit/L) 24 ALT (10 - 49 IUnit/L) 25 Total Alk Phosphatase (20 - 125 52IUnit/L) Total Protein (6.4 - 8.2 g/dL) 5.3 L Albumin (3.4 - 5.0 g/dL) 3.10 L 11/29 1600 Chemistry POC Glucose (70 - 110 MG/DL) 192 H Laboratory Tests 11/30 11/30 11/30 11/29 1110 0619 0006 1731 Coagulation INR (0.8 - 1.2) 1.0 1.1 PTT (Irwin) (25.0 - 39.5 Seconds) 57.9 H 78.6 H 79.3 H PT Patient/Control Mix (9.3 - 12.9 SECONDS) 11.3 12.0 Activated Coag Time (74 - 137 SEC) 131 Laboratory Tests 11/30 11/29 0402 1731 Hematology WBC (4.5 - 11.0 x10 3/uL) 7.6 8.0 RBC (4.00 - 5.60 x10 6/uL) 5.75 H 5.48 Hgb (12.5 - 16.9 g/dL) 16.3 15.8 Hct (37.5 - 50.7 %) 48.9 45.7 MCV (81.0 - 99.0 fL) 85.0 83.4 MCH (27.0 - 33.0 pg) 28.3 28.8 MCHC (33.0 - 37.0 g/dL) 33.3 34.6 RDW (11.5 - 14.5 %) 13.7 13.9 Plt Count (150 - 400 x10 3/uL) 210 208 MPV (7.0 - 9.0 fL) 10.3 H 10.1 H Neut % (Auto) (56.0 - 77.0 %) 63.1 60.3 Lymph % (Auto) (14.0 - 32.0 %) 22.3 25.0 Fisher % (Auto) (4.8 - 9.0 %) 8.0 8.0 Eos % (Auto) (0.3 - 3.7 %) 4.7 H 4.9 H Baso % (Auto) (0.0 - 2.0 %) 1.2 1.0 Neut # (Auto) (2.0 - 7.6 x10 3/uL) 4.79 4.83 Lymph # (Auto) (1.0 - 3.8 x10 3/uL) 1.69 2.00 Fisher # (Auto) (0.1 - 0.8 x10 3/uL) 0.61 0.64 Eos # (Auto) (0.0 - 0.2 x10 3/uL) 0.36 H 0.39 H Baso # (Auto) (0.0 - 0.2 x10 3/uL) 0.09 0.08 Abs Immat Gran (auto) (0.00 - 0.03 x10 3/uL) 0.05 H 0.06 H Immature Gran % (0.0 - 2.0 %) 0.7 0.8 Nucleated RBC % (0 - 0 %) 0.0 0.0 Nucleated RBCs # (Man) (0.0 - 0.1 x10 3/uL) 0.00 0.00 Results: labs reviewed, vital signs stable, rythm personally rev'd, x-ray personally reviewed, current med profile rev'd Quality: Trauma Gen Surg Current MedicationsCurrent medication review: Current Medications Sig/Marie Start time Last Medication Dose Route Stop Time Status Admin Atorvastatin Calcium 40 MG BEDTIME 11/27 2100 AC PO 12/26 2059 Insulin Human Lispro 0 AC HS 11/27 1630 AC 11/27 SUBQ 02/24 1629 1625 Mupirocin 1 APPLIC BID 11/27 1400 AC 11/27 NASAL 12/01 2101 1348 Dextrose/Water 125 ML ASDIR PRN 11/27 1300 CKD IV 02/24 1259 Dextrose/Water 250 ML ASDIR PRN 11/27 1300 CKD IV 02/24 1259 Glucagon 1 MG ASDIR PRN 11/27 1300 AC IM 02/24 1259 Heparin Sodium 0 ASDIR PRN 11/27 1015 AC IV 02/24 1014 Heparin Sodium 500 ML ASDIR 11/27 1015 CKD 11/27 (Porcine) IV 02/24 1014 1234 Nicotine 7 MG DAILY 11/27 1015 CKD 11/27 TRANSDERM 02/24 1014 1247 Metoprolol Succinate 25 MG DAILY 11/27 0900 AC 11/27 PO 02/24 0859 0838 Nitroglycerin 0.4 MG Q5M PRN PRN 11/27 0715 AC 11/27 SL 1437 Perflutren Lipid 0 .STK-MED ONE 11/27 0653 DC Microsphere IV Acetaminophen 650 MG Q6H PRN PRN 11/27 0200 AC PO 02/24 0159 Morphine Sulfate 2 MG Q4H PRN PRN 11/27 0200 AC 11/27 IV 12/02 0159 1520 Home Medications:ATORVASTATIN (LIPITOR) 40 MG PO BEDTIME METOPROLOL SUCC XL (TOPROL XL) 25 MG PO DAILY ASPIRIN 81 MG PO DAILY I attest that the foregoing medication list in the medical record is true, accurate, and complete to the best of my knowledge. Diagnosis, Assessment PlanHospital course to date:This is a 53-year-old gentleman with past medical history of coronary artery disease status post previous PCI in the past, hypertension, diabetes, hyperlipidemia who presented to [facility] with complaints of chest pains. He previously underwent left heart catheterization about 1 month ago and was referred for bypass surgery in the outpatient setting however he did not get hisoutpatient appointment yet. The patient reports back to the hospital with complaints of chest pains radiating to the left arm. 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 Patient reports history of chronic pain, Also reports he smokes 1 pack a day for the past 40 years.Denies alcohol Assessment/plan1. Coronary artery disease Workup for CABG2. Chest pain Patient given nitro and morphine. Will transfer the patient to CCU for heparin drip and nitro drip.3. Hypertension4. Hyperlipidemia5. Diabetes The patient reports he took his last Plavix on 11/25/2023 prior to his hospital admission. Will obtain a stat platelet response to Plavix.Obtain cardiac workup stat including carotid Dopplers, CT of the chest etc.Patient was seen and examined Dr. Mayfield. Plan of care discussed with multidisciplinary team. Patient's questions were answered.Further recommendations to followObtain platelet response plavix. 11/28/23Patient in stable condition, reports some chest pain on and offContinue heparin dripPlatelet response to plavix 117, [facility]-will reviewContinue preop workupI will tentatively schedule him for CABG in AM pending platelet response to plavix. I have discussed with him the procedure, risks involved, benefits, STS calculated risk score, alternatives, and complications. Patient verbalized understanding and willing to proceed. All questions were answered. 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 Procedure cancelled today and CTA heart ordered for further evaluation Consultants: cardiology, cardiovascular surgery at 1202 RPT #:[id number] OF REPORTPRProgress [id number]:19:00G.[id number] able for patient tqqsXUGIQQNVVDUVKU4526-88-54Z39:03:11 [facility] 2023-11-30 09:53:00 [id number]/[id number] 3q8CJ9Ep+CP+jrnHACFEUWFFtYU8645-91-62M26:53:00 [facility] ([facility])Cardiology Progress NoteREPORT#:[id number] REPORT STATUS: SignedREPORT INITIALIZATION DATE:11/30/23 TIME: 952 PATIENT: CHARAN RESTREPO UNIT #: [id number]#: [id number] [address] [birth year] AGE: 53 SEX: M ATTEND: Papo Mayfield MDADM AUTHOR: Fiona Foster AGACNPREPT SERVICE DT/TIME: 11/30/23952* ALL edits or amendments must be made on the electronic/computer document * Fiona Foster 11/30/2353:SubjectivePatient reports:No: complaints. Objective GeneralVS/I O:24 hour I O ending at 0700: 11/30 0700 0208 1900 Intake Total 240 Output Total Balance 240 Intake, Oral 240 Number Voids 4 Patient 75.5 kg Weight Weight Bed scale Measurement Method Vital Signs: Date Time Temp Pulse Resp B/P B/P Pulse O2 O2 Flow FiO2 Mean Ox Delivery Rate 11/30 716 37.2 11/30 0600 65 14 119/76 92 95 02/ 0500 64 15 109/61 79 97 02/ 0413 36.9 02/ 0400 64 15 128/69 94 98 02/09 0300 63 14 98/54 74 93 02/ 0200 61 10 119/66 87 96 02/ 0100 61 15 112/61 81 93 02/09 0000 61 16 121/62 85 96 02/08 2300 68 13 110/54 77 95 02/08 2200 62 14 114/58 80 94 02/08 2100 75 21 137/85 103 96 02/ 2031 36.1 02/ 2000 61 13 97/55 72 95 02/08 1858 92 Room air 02/ 1601 78 17 129/68 92 96 02/08 1600 36.6 02/08 1501 60 13 98/52 71 94 02/08 1400 62 16 127/65 86 97 02/08 1300 65 17 112/69 83 96 02/08 1200 36.6 02/08 1200 62 18 122/73 92 99 02/08 1100 59 14 116/70 87 97 02/08 1000 60 14 122/69 90 97 PATIENT WEIGHT: Weight (lb): 166Weight (oz): 7.18Weight (kg): 75.500 Medications:Active Meds + DC'd Last 24 HrsHeparin Sodium (HEPARIN SODIUM) 0 .STK-MED ONE .ROUTE (DC) Lidocaine HCl (XYLOCAINE IV) 0 .STK-MED ONE IV (DC) Sodium Bicarbonate (SODIUM BICARBONATE) 0 .STK-MED ONE IV (DC) Sodium Chloride (SODIUM CHLORIDE 0.9%) 100 ML .STK-MED ONE IV (DC) Dexamethasone Sodium Phosphate (DECADRON) 0 .STK-MED ONE .ROUTE (DC) Fentanyl Citrate (SUBLIMAZE) 0 .STK-MED ONE IV (DC) Lidocaine HCl (XYLOCAINE) 0 .STK-MED ONE .ROUTE (DC) Magnesium Sulfate (MAGNESIUM SULFATE) 0 .STK-MED ONE IV (DC) Ondansetron HCl (ZOFRAN) 0 .STK-MED ONE .ROUTE (DC) Phenylephrine HCl (LORENA-SYNEPHRINE 10MG/ML AMP) 0 .STK-MED ONE .ROUTE (DC) Propofol (DIPRIVAN 200MG/20ML INJECTION) 20 ML .STK-MED ONE IV (DC) Rocuronium [place] (ZEMURON) 0 .STK-MED ONE IV (DC) Aminocaproic Acid (AMICAR) 0 .STK-MED ONE .ROUTE (DC) Heparin Sodium (HEPARIN SODIUM) 0 .STK-MED ONE .ROUTE (DC) Cefazolin Sodium (KEFZOL OR ANCEF) 0 .STK-MED ONE .ROUTE (DC) Epinephrine HCl (EPINEPHrine 4 mg/D5W 250 mL) 250 ML .STK-MED ONE IV (DC) Insulin Human Regular (HumuLIN R 100 UNITS/NS 100ML) 100 ML .STK-MED ONE IV (DC) Sodium Chloride (SODIUM CHLORIDE 0.9%) 250 ML .STK-MED ONE IV (DC) Vancomycin HCl (Vancomycin 1,250 mg Inj (B2)) 0 .STK-MED ONE IV (DC) Magnesium Sulfate (MAGNESIUM SULFATE) 0 .STK-MED ONE .ROUTE (DC) Norepinephrine Bitartrate (NOREPINEPHRINE 8 MG/NS 250 ML) 250 ML .STK-MED ONE IV (DC) Protamine Sulfate (PROTAMINE SULFATE) 0 .STK-MED ONE IV (DC) Ropivacaine (NAROPIN 0.5% 150 MG/30mL) 0 .STK-MED ONE .ROUTE (DC) Cefazolin Sodium (KEFZOL OR ANCEF) 2 GM PREOP ONCALL IV (CKD) Metoprolol Tartrate (LOPRESSOR) 6.25 MG ONCE ONE PO (CAN) Vancomycin HCl (VANCOMYCIN HCL) 1,250 MG PREOP ONCALL IV (CKD) Sodium Chloride (SODIUM CHLORIDE 0.9%) 250 MLVerapamil HCl (ISOPTIN) 16.6 MG .Q24H ONE IV (CKD) Heparin Sodium (Porcine) (HEPARIN SODIUM) 1,660 UNIT Sodium Bicarbonate (SODIUM BICARBONATE) 0.7 ML Nitroglycerin/Dextrose (NITROGLYCERIN 50MG/D5W 250ML) 8.3 MG Lactated Ringer's (LACTATED RINGERS) 949.5 MLSodium Chloride (SODIUM CHLORIDE) 20 ML ASDIR IV Morphine Sulfate (morphine SULFATE) 2 MG Q4H PRN PRN IV Cefazolin Sodium (KEFZOL OR ANCEF) 2 GM PREOP ONCALL IV (DC) Vancomycin HCl (VANCOMYCIN HCL) 1,248 MG PREOP ONCALL IV (DC) Sodium Chloride (SODIUM CHLORIDE 0.9%) 250 MLVerapamil HCl (ISOPTIN) 16.6 MG .Q24H ONE IV (DC) Heparin Sodium (Porcine) (HEPARIN SODIUM) 1,660 UNIT Sodium Bicarbonate (SODIUM BICARBONATE) 0.7 ML Nitroglycerin/Dextrose (NITROGLYCERIN 50MG/D5W 250ML) 8.3 MG Lactated Ringer's (LACTATED RINGERS) 949.5 MLAcetaminophen (TYLENOL EXTRA STRENGTH) 1,000 MG PREOP ONCALL PO (CKD) Gabapentin (NEURONTIN) 200 MG PREOP ONCALL PO (CKD) Sodium Chloride (SODIUM CHLORIDE) 20 ML ASDIR IV (DC) Aspirin (ASPIRIN) 81 MG DAILY PO Hydrocodone Bitart/Acetaminophen (NORCO 10/325) 1 TAB TID PRN PRN PO Atorvastatin Calcium (LIPITOR) 40 MG BEDTIME PO Insulin Human Lispro (HUMALOG) 0 AC HS SUBQ Mupirocin (BACTROBAN 2% 22 GM OINTMENT) 1 APPLIC BID NASAL Dextrose/Water (DEXTROSE 10% IN WATER) 125 ML ASDIR PRN IV (CKD) Dextrose/Water (DEXTROSE 10% IN WATER) 250 ML ASDIR PRN IV (CKD) Glucagon (GLUCAGON) 1 MG ASDIR PRN IM Heparin Sodium (HEPARIN 5000 UNITS/ML) 0 ASDIR PRN IV Heparin Sodium (Porcine) (HEPARIN 25,000 UNITS/ 1/2NS 500ML) 500 ML ASDIR IV (CKD) Nicotine (NICODERM) 7 MG DAILY TRANSDERM (CKD) Metoprolol Succinate (TOPROL XL) 25 MG DAILY PO Nitroglycerin (NITROSTAT) 0.4 MG Q5M PRN PRN SL (DC) Acetaminophen (TYLENOL) 650 MG Q6H PRN PRN PO Physical ExamGeneral appearance: alert, awake, orientedNeck: no JVDCardiovascular: CV assessment: regular rate and rhythm, normal heart soundsRespiratory: clear to auscultation, no distressAbdomen: soft, non-tender, normal bowel sounds, no distentionLower extremity: LE assessment: no edemaNeuro/DRAWER MAKER: alert, oriented X 3, no motor deficitsSkin: dry, intact, normal colorPsychiatry: normal affect, normal judgment/insight, normal mood ResultsFindings/Data:Laboratory Tests 11/3016 401 2038 1731Chemistry Sodium (134 - 147 mEq/L) 137 139 Potassium (3.4 - 5.0 mEq/L) 4.3 3.3 L Chloride (100 - 108 mEq/L) 110 H 111 H Carbon Dioxide (21 - 33 mEq/l) 24 24 Anion Gap (0 - 20) 7 7 BUN (7 - 25 mg/dL) 18 22 Creatinine (0.6 - 1.3 mg/dL) 0.8 0.7 Glomerular Filtr Rate (90 - 95) 105.2 H 109.5 H Glucose (77 - 141 mg/dL) 174 H 219 H POC Glucose (70 - 110 MG/DL) 134 H 267 H Calcium (8.0 - 10.5 mg/dL) 9.1 7.7 L Ionized Calcium Zina (1.09 - 1.30 MMOL/L) 1.14 Phosphorus (2.5 - 4.9 MG/DL) 3.6 Magnesium (1.6 - 2.6 mg/dL) 2.06 Total Bilirubin (0.0 - 1.0 mg/dL) 0.50 AST (8 - 34 IUnit/L) 24 ALT (10 - 49 IUnit/L) 25 Total Alk Phosphatase (20 - 125 IUnit/L) 52 Total Protein (6.4 - 8.2 g/dL) 5.3 L Albumin (3.4 - 5.0 g/dL) 3.10 L 11/29 1600 Chemistry POC Glucose (70 - 110 MG/DL) 192 H Laboratory Tests 11/30 000 1731 Coagulation INR (0.8 - 1.2) 1.0 1.1 PTT (Ulises) (25.0 - 39.5 Seconds) 57.9 H 78.6 H 79.3 H PT Patient/Control Mix (9.3 - 12.9 SECONDS) 11.3 12.0 Laboratory Tests 11/30 1731 Hematology WBC (4.5 - 11.0 x10 3/uL) 7.6 8.0 RBC (4.00 - 5.60 x10 6/uL) 5.75 H 5.48 Hgb (12.5 - 16.9 g/dL) 16.3 15.8 Hct (37.5 - 50.7 %) 48.9 45.7 MCV (81.0 - 99.0 fL) 85.0 83.4 MCH (27.0 - 33.0 pg) 28.3 28.8 MCHC (33.0 - 37.0 g/dL) 33.3 34.6 RDW (11.5 - 14.5 %) 13.7 13.9 Plt Count (150 - 400 x10 3/uL) 210 208 MPV (7.0 - 9.0 fL) 10.3 H 10.1 H Neut % (Auto) (56.0 - 77.0 %) 63.1 60.3 Lymph % (Auto) (14.0 - 32.0 %) 22.3 25.0 Fisher % (Auto) (4.8 - 9.0 %) 8.0 8.0 Eos % (Auto) (0.3 - 3.7 %) 4.7 H 4.9 H Baso % (Auto) (0.0 - 2.0 %) 1.2 1.0 Neut # (Auto) (2.0 - 7.6 x10 3/uL) 4.79 4.83 Lymph # (Auto) (1.0 - 3.8 x10 3/uL) 1.69 2.00 Fisher # (Auto) (0.1 - 0.8 x10 3/uL) 0.61 0.64 Eos # (Auto) (0.0 - 0.2 x10 3/uL) 0.36 H 0.39 H Baso # (Auto) (0.0 - 0.2 x10 3/uL) 0.09 0.08 Abs Immat Gran (auto) (0.00 - 0.03 x10 3/uL) 0.05 H 0.06 H Immature Gran % (0.0 - 2.0 %) 0.7 0.8 Nucleated RBC % (0 - 0 %) 0.0 0.0 Nucleated RBCs # (Man) (0.0 - 0.1 x10 3/uL) 0.00 0.00 Laboratory Tests 11/30 0402 Chemistry Magnesium (1.6 - 2.6 mg/dL) 2.06 Diagnosis, Assessment Plan Free Text DxA P NotesFree Text DxA P Notes:1. 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 CP improved with Morphine and NTG. Continue heparin drip. Add aspirin 81 mg daily. Continue atorvastatin and metoprolol 2. DMII: per Hospitalist 3. HTN: BP stable. Continue BB 4. 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 Continue beta-luís. GDMT as tolerated. CABG today. Merlene Rutherford 11/30/23 1614:Attestations Physician AttestationAgree w/findings plan:I have seen and examined the pt, I Agree with the findings and plan as documented by Fiona Foster. The echo with Definity showed no LV thrombus however ANAND preop showed finding concerning for LV apical thrombus, CABG was canceled and patient did have CT heart contrasted patient will be placed on anticoagulation at 1148 at 1614 RPT #:[id number] OF REPORTPRProgress [id number]:53:00G.[id number] able for patient vgshTLZOHKIVLWLLDV3442-81-80L90:44:35 [facility] 2023-11-30 09:49:00 [id number]+Uo 82BSVrMG4vjuAQudVlA2teHPx2s1536-86-89L13:49:00 [facility] ([facility])Hospitalist Progress NoteREPORT#:[id number] REPORT STATUS: SignedREPORT INITIALIZATION DATE:11/30/23 TIME: 948 PATIENT: CHARAN RESTREPO UNIT #: [id number]#: [id number] [address] [birth year] AGE: 53 SEX: M ATTEND: Papo Mayfield AUTHOR: Kelley Young APRNREPT SERVICE DT/TIME: 11/30/23 0949* ALL edits or amendments must be made on the electronic/computer document * SubjectiveChief complaint:cp better, pending CABG, on heparin Review of SystemsAll systems rev neg: except as noted Objective GeneralVS/I O:Vital Signs: Date Time Temp Pulse Resp B/P B/P Pulse O2 O2 Flow FiO2 Mean Ox Delivery Rate 11/30 0617 37.2 11/30 0600 65 14 119/76 92 95 02/ 0500 64 15 109/61 79 97 02/ 0413 36.9 11/30 0400 64 15 128/69 94 98 02/ 0300 63 14 98/54 74 93 / 0200 61 10 119/66 87 96 / 0100 61 15 112/61 81 93 02/09 0000 61 16 121/62 85 96 02/08 2300 68 13 110/54 77 95 02/08 2200 62 14 114/58 80 94 02/08 2100 75 21 137/85 103 96 02/08 2031 36.1 02/ 2000 61 13 97/55 72 95 02/08 1858 92 Room air 02/ 1601 78 17 129/68 92 96 02/08 1600 36.6 02/08 1501 60 13 98/52 71 94 02/08 1400 62 16 127/65 86 97 02/08 1300 65 17 112/69 83 96 02/08 1200 36.6 02/08 1200 62 18 122/73 92 99 02/08 1100 59 14 116/70 87 97 02/08 1000 60 14 122/69 90 97 24 hour I O ending at 0700: 11/30 0700 11/29 1900 Intake Total 240 Output Total Balance 240 Intake, Oral 240 Number Voids 4 Patient 75.5 kg Weight Weight Bed scale Measurement Method PATIENT WEIGHT: Weight (lb): 166Weight (oz): 7.18Weight (kg): 75.500 Medications:Active Meds + DC'd Last 24 HrsDexamethasone Sodium Phosphate (DECADRON) 0 .STK-MED ONE .ROUTE (DC) Fentanyl Citrate (SUBLIMAZE) 0 .STK-MED ONE IV (DC) Lidocaine HCl (XYLOCAINE) 0 .STK-MED ONE .ROUTE (DC) Ondansetron HCl (ZOFRAN) 0 .STK-MED ONE .ROUTE (DC) Propofol (DIPRIVAN 200MG/20ML INJECTION) 20 ML .STK-MED ONE IV (DC) Rocuronium [place] (ZEMURON) 0 .STK-MED ONE IV (DC) Aminocaproic Acid (AMICAR) 0 .STK-MED ONE .ROUTE (DC) Heparin Sodium (HEPARIN SODIUM) 0 .STK-MED ONE .ROUTE (DC) Cefazolin Sodium (KEFZOL OR ANCEF) 0 .STK-MED ONE .ROUTE (DC) Epinephrine HCl (EPINEPHrine 4 mg/D5W 250 mL) 250 ML .STK-MED ONE IV (DC) Insulin Human Regular (HumuLIN R 100 UNITS/NS 100ML) 100 ML .STK-MED ONE IV (DC) Sodium Chloride (SODIUM CHLORIDE 0.9%) 250 ML .STK-MED ONE IV (DC) Vancomycin HCl (Vancomycin 1,250 mg Inj (B2)) 0 .STK-MED ONE IV (DC) Magnesium Sulfate (MAGNESIUM SULFATE) 0 .STK-MED ONE .ROUTE (DC) Norepinephrine Bitartrate (NOREPINEPHRINE 8 MG/NS 250 ML) 250 ML .STK-MED ONE IV (DC) Protamine Sulfate (PROTAMINE SULFATE) 0 .STK-MED ONE IV (DC) Ropivacaine (NAROPIN 0.5% 150 MG/30mL) 0 .STK-MED ONE .ROUTE (DC) Cefazolin Sodium (KEFZOL OR ANCEF) 2 GM PREOP ONCALL IV (CKD) Metoprolol Tartrate (LOPRESSOR) 6.25 MG ONCE ONE PO (CAN) Vancomycin HCl (VANCOMYCIN HCL) 1,250 MG PREOP ONCALL IV (CKD) Sodium Chloride (SODIUM CHLORIDE 0.9%) 250 MLVerapamil HCl (ISOPTIN) 16.6 MG .Q24H ONE IV (CKD) Heparin Sodium (Porcine) (HEPARIN SODIUM) 1,660 UNIT Sodium Bicarbonate (SODIUM BICARBONATE) 0.7 ML Nitroglycerin/Dextrose (NITROGLYCERIN 50MG/D5W 250ML) 8.3 MG Lactated Ringer's (LACTATED RINGERS) 949.5 MLSodium Chloride (SODIUM CHLORIDE) 20 ML ASDIR IV Morphine Sulfate (morphine SULFATE) 2 MG Q4H PRN PRN IV Cefazolin Sodium (KEFZOL OR ANCEF) 2 GM PREOP ONCALL IV (DC) Vancomycin HCl (VANCOMYCIN HCL) 1,248 MG PREOP ONCALL IV (DC) Sodium Chloride (SODIUM CHLORIDE 0.9%) 250 MLVerapamil HCl (ISOPTIN) 16.6 MG .Q24H ONE IV (DC) Heparin Sodium (Porcine) (HEPARIN SODIUM) 1,660 UNIT Sodium Bicarbonate (SODIUM BICARBONATE) 0.7 ML Nitroglycerin/Dextrose (NITROGLYCERIN 50MG/D5W 250ML) 8.3 MG Lactated Ringer's (LACTATED RINGERS) 949.5 MLAcetaminophen (TYLENOL EXTRA STRENGTH) 1,000 MG PREOP ONCALL PO (CKD) Gabapentin (NEURONTIN) 200 MG PREOP ONCALL PO (CKD) Sodium Chloride (SODIUM CHLORIDE) 20 ML ASDIR IV (DC) Aspirin (ASPIRIN) 81 MG DAILY PO Hydrocodone Bitart/Acetaminophen (NORCO 10/325) 1 TAB TID PRN PRN PO Atorvastatin Calcium (LIPITOR) 40 MG BEDTIME PO Insulin Human Lispro (HUMALOG) 0 AC HS SUBQ Mupirocin (BACTROBAN 2% 22 GM OINTMENT) 1 APPLIC BID NASAL Dextrose/Water (DEXTROSE 10% IN WATER) 125 ML ASDIR PRN IV (CKD) Dextrose/Water (DEXTROSE 10% IN WATER) 250 ML ASDIR PRN IV (CKD) Glucagon (GLUCAGON) 1 MG ASDIR PRN IM Heparin Sodium (HEPARIN 5000 UNITS/ML) 0 ASDIR PRN IV Heparin Sodium (Porcine) (HEPARIN 25,000 UNITS/ 1/2NS 500ML) 500 ML ASDIR IV (CKD) Nicotine (NICODERM) 7 MG DAILY TRANSDERM (CKD) Metoprolol Succinate (TOPROL XL) 25 MG DAILY PO Nitroglycerin (NITROSTAT) 0.4 MG Q5M PRN PRN SL (DC) Acetaminophen (TYLENOL) 650 MG Q6H PRN PRN PO Physical ExamGeneral appearance: alert, awake, oriented, no acute distressHead/Eyes: atraumatic, normal conjunctiva/sclera, normal eyelids/periorb.Neck: full range of motion, non-tender, no JVDCardiovascular: normal heart sounds, regular rate rhythmRespiratory: aerating well, clear to auscultationAbdomen: non-tender, normal bowel sounds, soft, no distentionExtremities: moves all, no calf tenderness, no edemaNeuro/DRAWER MAKER: alert, oriented X 3, CNII-XII intact, normal speech, no motor deficits, no sensory deficitsSkin: dry, intact ResultsFindings/Data:Laboratory Tests 11/30 1731 1600Chemistry Sodium (134 - 147 mEq/L) 137 139 Potassium (3.4 - 5.0 mEq/L) 4.3 3.3 L Chloride (100 - 108 mEq/L) 110 H 111 H Carbon Dioxide (21 - 33 mEq/l) 24 24 Anion Gap (0 - 20) 7 7 BUN (7 - 25 mg/dL) 18 22 Creatinine (0.6 - 1.3 mg/dL) 0.8 0.7 Glomerular Filtr Rate (90 - 95) 105.2 H 109.5 H Glucose (77 - 141 mg/dL) 174 H 219 H POC Glucose (70 - 110 MG/DL) 134 H 267 H 192 H Calcium (8.0 - 10.5 mg/dL) 9.1 7.7 L Ionized Calcium Zina (1.09 - 1.30 1.14MMOL/L) Phosphorus (2.5 - 4.9 MG/DL) 3.6 Magnesium (1.6 - 2.6 mg/dL) 2.06 Total Bilirubin (0.0 - 1.0 mg/dL) 0.50 AST (8 - 34 IUnit/L) 24 ALT (10 - 49 IUnit/L) 25 Total Alk Phosphatase (20 - 125 52IUnit/L) Total Protein (6.4 - 8.2 g/dL) 5.3 L Albumin (3.4 - 5.0 g/dL) 3.10 L Laboratory Tests 11/30 11/30 11/29 0619 0006 1731 Coagulation INR (0.8 - 1.2) 1.0 1.1 PTT (Ulises) (25.0 - 39.5 Seconds) 57.9 H 78.6 H 79.3 H PT Patient/Control Mix (9.3 - 12.9 SECONDS) 11.3 12.0 Laboratory Tests 11/30 1731 Hematology WBC (4.5 - 11.0 x10 3/uL) 7.6 8.0 RBC (4.00 - 5.60 x10 6/uL) 5.75 H 5.48 Hgb (12.5 - 16.9 g/dL) 16.3 15.8 Hct (37.5 - 50.7 %) 48.9 45.7 MCV (81.0 - 99.0 fL) 85.0 83.4 MCH (27.0 - 33.0 pg) 28.3 28.8 MCHC (33.0 - 37.0 g/dL) 33.3 34.6 RDW (11.5 - 14.5 %) 13.7 13.9 Plt Count (150 - 400 x10 3/uL) 210 208 MPV (7.0 - 9.0 fL) 10.3 H 10.1 H Neut % (Auto) (56.0 - 77.0 %) 63.1 60.3 Lymph % (Auto) (14.0 - 32.0 %) 22.3 25.0 Fisher % (Auto) (4.8 - 9.0 %) 8.0 8.0 Eos % (Auto) (0.3 - 3.7 %) 4.7 H 4.9 H Baso % (Auto) (0.0 - 2.0 %) 1.2 1.0 Neut # (Auto) (2.0 - 7.6 x10 3/uL) 4.79 4.83 Lymph # (Auto) (1.0 - 3.8 x10 3/uL) 1.69 2.00 Fisher # (Auto) (0.1 - 0.8 x10 3/uL) 0.61 0.64 Eos # (Auto) (0.0 - 0.2 x10 3/uL) 0.36 H 0.39 H Baso # (Auto) (0.0 - 0.2 x10 3/uL) 0.09 0.08 Abs Immat Gran (auto) (0.00 - 0.03 x10 3/uL) 0.05 H 0.06 H Immature Gran % (0.0 - 2.0 %) 0.7 0.8 Nucleated RBC % (0 - 0 %) 0.0 0.0 Nucleated RBCs # (Man) (0.0 - 0.1 x10 3/uL) 0.00 0.00 Diagnosis, Assessment PlanConsultants: cardiology, cardiovascular surgery Free Text DxA P NotesFree text DxA P notes: CAD with stents DMHTNHLD tele cardiology consult CV surgeon -- work up for CABG HTN-- BP well control -- continue metoprololDM-- sliding scale -- Hba1c HLD--continue lipitor will follow the patient and manage DM with you during the hospital stay 11/28- he complaint of cp -- monitor in ccu - manage as cardiology -- pre OP for CABG -- may be this week as surgeon -- DM -- not well control -- adjust insulin 11/29 Pending CABG. Continue monitoring in CCU.11/30 On heparin. Pending surgery. at 1609 at 1910 RPT #:[id number] OF REPORTPRProgress [id number]:49:00G.[id number] able for patient rqxvLLEHYMNKQDVVBB5379-74-68J13:13:57 [facility] 2023-11-29 14:52:00 [id number] sOvw84XPbIk85ndVRMBONvSeUw9sg UB5tZsHREADsiMXkk9ftmWuydqz0014-10-51Z55:52:00 [facility] ([facility])Cardiology Progress NoteREPORT#:[id number] REPORT STATUS: SignedREPORT INITIALIZATION DATE:11/29/23 TIME: 1451 PATIENT: CHARAN RESTREPO UNIT #: [id number]#: [id number] [address] [birth year] AGE: 53 SEX: M ATTEND: Papo Mayfield MDADM AUTHOR: Fiona FosterPREPT SERVICE DT/TIME: 11/29/231451* ALL edits or amendments must be made on the electronic/computer document * SubjectivePatient reports:No: complaints. Objective GeneralVS/I O:24 hour I O ending at 0700: 11/29 0700 11/28 1900 Intake Total Output Total Balance Number Voids 6 Output, Urine Vital Signs: Date Time Temp Pulse Resp B/P B/P Pulse O2 O2 Flow FiO2 Mean Ox Delivery Rate 02/ 1200 36.6 02/08 0900 60 13 119/68 88 99 02/08 0800 36.6 02/08 0800 57 14 118/64 85 95 02/08 0700 65 18 117/68 86 98 02/08 0601 64 12 121/73 91 96 02/08 0501 55 14 105/51 73 93 02/08 0400 36.6 02/08 0400 65 15 124/69 90 96 02/08 0300 67 16 122/64 88 95 02/08 0201 63 14 102/49 71 93 02/08 0100 65 15 134/66 93 94 02/08 0015 60 15 95 02/08 0000 36.4 02/08 0000 71 16 122/60 84 95 02/07 2300 70 18 128/65 89 96 02/07 2200 63 16 121/65 87 94 02/ 2100 68 18 122/68 90 92 02/ 2000 36.7 02/ 2000 65 13 122/62 85 95 02/ 1906 97 Room air 02 1904 76 27 116/80 94 95 02/ 1600 36.8 02/ 1600 66 22 126/74 91 97 02/ 1500 64 17 120/73 91 95 PATIENT WEIGHT: Weight (lb): 183Weight (oz): 6.79Weight (kg): 83.200 Medications:Active Meds + DC'd Last 24 HrsCefazolin Sodium (KEFZOL OR ANCEF) 2 GM PREOP ONCALL IV (CKD) Metoprolol Tartrate (LOPRESSOR) 6.25 MG ONCE ONE PO (CAN) Vancomycin HCl (VANCOMYCIN HCL) 1,248 MG PREOP ONCALL IV (CKD) Sodium Chloride (SODIUM CHLORIDE 0.9%) 250 MLVerapamil HCl (ISOPTIN) 16.6 MG .Q24H ONE IV (CKD) Heparin Sodium (Porcine) (HEPARIN SODIUM) 1,660 UNIT Sodium Bicarbonate (SODIUM BICARBONATE) 0.7 ML Nitroglycerin/Dextrose (NITROGLYCERIN 50MG/D5W 250ML) 8.3 MG Lactated Ringer's (LACTATED RINGERS) 949.5 MLAcetaminophen (TYLENOL EXTRA STRENGTH) 1,000 MG PREOP ONCALL PO (CKD) Gabapentin (NEURONTIN) 200 MG PREOP ONCALL PO (CKD) Sodium Chloride (SODIUM CHLORIDE) 20 ML ASDIR IV Perflutren Protein Type A Microsphe (OPTISON 3ML VIAL) 0 .STK-MED ONE IV (DC) Aspirin (ASPIRIN) 81 MG DAILY PO Hydrocodone Bitart/Acetaminophen (NORCO 10/325) 1 TAB TID PRN PRN PO Atorvastatin Calcium (LIPITOR) 40 MG BEDTIME PO Insulin Human Lispro (HUMALOG) 0 AC HS SUBQ Mupirocin (BACTROBAN 2% 22 GM OINTMENT) 1 APPLIC BID NASAL Dextrose/Water (DEXTROSE 10% IN WATER) 125 ML ASDIR PRN IV (CKD) Dextrose/Water (DEXTROSE 10% IN WATER) 250 ML ASDIR PRN IV (CKD) Glucagon (GLUCAGON) 1 MG ASDIR PRN IM Heparin Sodium (HEPARIN 5000 UNITS/ML) 0 ASDIR PRN IV Heparin Sodium (Porcine) (HEPARIN 25,000 UNITS/ 1/2NS 500ML) 500 ML ASDIR IV (CKD) Nicotine (NICODERM) 7 MG DAILY TRANSDERM (CKD) Metoprolol Succinate (TOPROL XL) 25 MG DAILY PO Nitroglycerin (NITROSTAT) 0.4 MG Q5M PRN PRN SL Acetaminophen (TYLENOL) 650 MG Q6H PRN PRN PO Physical ExamGeneral appearance: alert, awake, oriented, no acute distressNeck: no JVDCardiovascular: CV assessment: regular rate and rhythm, normal heart soundsRespiratory: clear to auscultation, no distressAbdomen: soft, non-tender, normal bowel sounds, no distentionLower extremity: LE assessment: no edemaNeuro/DRAWER MAKER: alert, oriented X 3, no motor deficitsSkin: dry, intact, normal colorPsychiatry: normal affect, normal judgment/insight, normal mood ResultsFindings/Data:Laboratory Tests 11/29 11/29 11/29 11/29 11/28 0715 0443 0443 0443 2155Chemistry Sodium (134 - 147 mEq/L) 139 Potassium (3.4 - 5.0 mEq/L) 3.9 Chloride (100 - 108 mEq/L) 111 H Carbon Dioxide (21 - 33 mEq/l) 23 Anion Gap (0 - 20) 9 BUN (7 - 25 mg/dL) 26 H Creatinine (0.6 - 1.3 mg/dL) 0.8 Glomerular Filtr Rate (90 - 95) 105.2 H Glucose (77 - 141 mg/dL) 191 H POC Glucose (70 - 110 MG/DL) 169 H 200 H Hemoglobin A1c (4.8 - 6.0 %A1C) 8.8 H Calcium (8.0 - 10.5 mg/dL) 8.0 Total Bilirubin (0.0 - 1.0 mg/dL) 0.40 AST (8 - 34 IUnit/L) 15 ALT (10 - 49 IUnit/L) 19 Total Alk Phosphatase (20 - 125 65IUnit/L) B-Natriuretic Peptide (0 - 100 PG/ML) 76.0 Total Protein (6.4 - 8.2 g/dL) 5.5 L Albumin (3.4 - 5.0 g/dL) 3.10 L Triglycerides (40 - 150 mg/dL) 259 H Cholesterol (<200 mg/dL) 108 LDL Cholesterol Measurd (0 - 100 61.0mg/dL) HDL Cholesterol (40 - 60 MG/DL) 25.1 L Cholesterol/HDL Ratio (3.43 - 4.97 4.30RATIO) 11/28 1621 Chemistry POC Glucose (70 - 110 MG/DL) 145 H Laboratory Tests 11/29 0443 1759 Coagulation INR (0.8 - 1.2) 1.0 PTT (Ulises) (25.0 - 39.5 Seconds) 75.5 H 58.4 H PT Patient/Control Mix (9.3 - 12.9 SECONDS) 11.4 Plt P2Y12 React Units (182 - 335 PRU) 155 L Laboratory Tests 11/29 442 Hematology WBC (4.5 - 11.0 x10 3/uL) 7.3 RBC (4.00 - 5.60 x10 6/uL) 5.39 Hgb (12.5 - 16.9 g/dL) 15.5 Hct (37.5 - 50.7 %) 45.5 MCV (81.0 - 99.0 fL) 84.4 MCH (27.0 - 33.0 pg) 28.8 MCHC (33.0 - 37.0 g/dL) 34.1 RDW (11.5 - 14.5 %) 13.8 Plt Count (150 - 400 x10 3/uL) 196 MPV (7.0 - 9.0 fL) 10.6 H Neut % (Auto) (56.0 - 77.0 %) 57.6 Lymph % (Auto) (14.0 - 32.0 %) 26.3 Fisher % (Auto) (4.8 - 9.0 %) 9.5 H Eos % (Auto) (0.3 - 3.7 %) 5.3 H Baso % (Auto) (0.0 - 2.0 %) 0.8 Neut # (Auto) (2.0 - 7.6 x10 3/uL) 4.19 Lymph # (Auto) (1.0 - 3.8 x10 3/uL) 1.92 Fisher # (Auto) (0.1 - 0.8 x10 3/uL) 0.69 Eos # (Auto) (0.0 - 0.2 x10 3/uL) 0.39 H Baso # (Auto) (0.0 - 0.2 x10 3/uL) 0.06 Abs Immat Gran (auto) (0.00 - 0.03 x10 3/uL) 0.04 H Immature Gran % (0.0 - 2.0 %) 0.5 Nucleated RBC % (0 - 0 %) 0.0 Nucleated RBCs # (Man) (0.0 - 0.1 x10 3/uL) 0.00 Laboratory Tests 11/28 1805 Serology SARS-CoV-2 Ag (Rapid) (Negative) Negative Microbiology Date/Time Procedure - Status Source Growth 11/28 1805 MSSA Surveillance Screen - COMP NASAL 11/28 1805 MRSA DNA Surveillance Screen - COMP NASAL Laboratory Tests 11/29 0443 Chemistry B-Natriuretic Peptide (0 - 100 PG/ML) 76.0 Radiology data:Recent Impressions:RADIOLOGY - XR CHEST 1 V 11/29 0837 Report Impression - Status: SIGNED Entered: 11/29/2023 1449 IMPRESSION:No acute cardiopulmonary abnormality.Impression By: Donnell Barfield M.D. Results: labs reviewed, vital signs reviewed, rhythm personally rev'dTelemetry Interpretation:NSR Diagnosis, Assessment PlanPlan discussed with: patient, nurse Free Text DxA P NotesFree Text DxA P Notes:1. 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 CP improved with Morphine and NTG. Continue heparin drip. Add aspirin 81 mg daily. Continue atorvastatin and metoprolol 2. DMII: per Hospitalist 3. HTN: BP stable. Continue BB 4. 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 Continue beta-luís. GDMT as tolerated. Waiting for CABG. at 1453 at 2051 RPT #:[id number] OF REPORTPRProgress [id number]:52:00G.[id number] able for patient onziWINTLRCHZRIKIF3764-87-43Z43:56:50 [facility] 2023-11-29 12:56:00 [id number] G6e+fXEYLq04cV4mg4b4wYCJrAkkH 6dSguhg2l2kEpompLMX2mA8w33J3824-97-11C01:56:84954 8-0041 [place] [id number] PATIENT NAME: CHARAN RESTREPO ADMIT DATE: 11/27/23ACCOUNT NO: [id number] [place] [facility] [place] 53 REPORT TYPE: eECHOCARDIOGRAM REPORT SEX: M ADMITTING PHYSICIAN:Papo Mayfield MD ATTENDING PHYSICIAN:Papo Mayfield MD *[place] [id number]: [place]: [phone] Transthoracic Echocardiogram Patient: Royce Restrepotudy Date: 4BP: 120 / 73URN: [id number]: [id number]#: [id number]: 1970Age: 53Gender: MHeight: 69 in / 175.3 cmWeight: 183 lb / 83 kgBMI/BSA: 27 kg/m 2 / 2.03 m 2*Ordering Physician: * Rafi Mayfield MD *Interpreting Physician: * Merlene Rutherford MD*Content Management Specialist: * Nikki Patel Indications: LV THROMBUS. Study data: Transthoracic echocardiogram, limited study. Procedure: Atransthoracic echocardiogram was performed. Image quality was fair.Intravenous contrast (Optison) 3 mls was administered. Limited 2D and limitedspectral Doppler. Location: Bedside. Patient status: Inpatient. Patientroom number: [id number]. Study status: Routine. Heart rate: 62 bpm. Findings Left ventricle: The cavity size is mildly dilated. Wall thickness is mildlyincreased. The estimated ejection fraction is 30-34%. There is no evidence ofa thrombus revealed by acoustic contrast opacification. Grade I diastolicdysfunction.PATIENT NAME: CHARAN RESTREPO Pericardium: A small pericardial effusion is identified anterior to theheart. Measurements Left ventricle Value Ref 11/27/2023 AFSANEH, LAX 5.9 cm 4.2 - 5.8 6.3 ESD, LAX 5.3 cm 2.5 - 4.0 4.5 FS, LAX 9 % 25 - 43 28 IVS, ED 1.4 cm 0.6 - 1.0 1.2 PW, ED 1.3 cm 0.6 - 1.0 1.2 IVS/PW, ED 1.13 --------- 1.03 EF 20 % 52 - 72 54 Conclusions Summary: 1. Left ventricle: The cavity size is mildly dilated. Wall thickness is mildly increased. The estimated ejection fraction is 30-34%. Grade I diastolic dysfunction. There is no evidence of a thrombus revealed by acoustic contrast opacification.2. Pericardium, extracardiac: A small pericardial effusion is identified anterior to the heart.Electronically signed by Merlene Rutherford MD11/29/2023 12:56 at 1256 PATIENT NAME: CHARAN RESTREPO :56:0 0G.[id number] for patient [id number]:27:41 [facility] 2023-11-29 10:46:00 [id number] [id number]:46:00 [facility] Centerist Progress NoteREPORT#:[id number] REPORT STATUS: SignedREPORT INITIALIZATION DATE:11/29/23 TIME: 104 PATIENT: CHARAN RESTREPO UNIT #: [id number]#: [id number] [address] [birth year] AGE: 53 SEX: M ATTEND: Papo Mayfield MDADM AUTHOR: Kelley Young APRNREPT SERVICE DT/TIME: 11/29/23 1046* ALL edits or amendments must be made on the electronic/computer document * SubjectiveChief complaint:he still complaint of cp, pending CABG Review of SystemsCardiovascular:Reports: chest pain. All systems rev neg: except as noted Objective GeneralVS/I O:Vital Signs: Date Time Temp Pulse Resp B/P B/P Pulse O2 O2 Flow FiO2 Mean Ox Delivery Rate 02/ 0900 60 13 119/68 88 99 02/08 0800 36.6 02/08 0800 57 14 118/64 85 95 02/08 0700 65 18 117/68 86 98 02/08 0601 64 12 121/73 91 96 02/08 0501 55 14 105/51 73 93 02/08 0400 36.6 02/08 0400 65 15 124/69 90 96 02/08 0300 67 16 122/64 88 95 02/08 0201 63 14 102/49 71 93 02/08 0100 65 15 134/66 93 94 02/08 0015 60 15 95 02/08 0000 36.4 02/08 0000 71 16 122/60 84 95 02/07 2300 70 18 128/65 89 96 02/07 2200 63 16 121/65 87 94 02/07 2100 68 18 122/68 90 92 02/07 2000 36.7 02/07 2000 65 13 122/62 85 95 02/07 1906 97 Room air 02/07 1904 76 27 116/80 94 95 02/07 1600 36.8 02/07 1600 66 22 126/74 91 97 02/07 1500 64 17 120/73 91 95 02/07 1400 65 18 113/65 83 94 02/07 1355 68 02/07 1200 36.8 02/07 1200 80 25 153/75 106 95 02/07 1100 70 22 129/69 91 95 24 hour I O ending at 0700: 11/29 0700 11/28 1900 Intake Total Output Total Balance Number Voids 6 Output, Urine PATIENT WEIGHT: Weight (lb): 183Weight (oz): 6.79Weight (kg): 83.200 Medications:Active Meds + DC'd Last 24 HrsCefazolin Sodium (KEFZOL OR ANCEF) 2 GM PREOP ONCALL IV (CKD) Metoprolol Tartrate (LOPRESSOR) 6.25 MG ONCE ONE PO (CAN) Vancomycin HCl (VANCOMYCIN HCL) 1,248 MG PREOP ONCALL IV (CKD) Sodium Chloride (SODIUM CHLORIDE 0.9%) 250 MLVerapamil HCl (ISOPTIN) 16.6 MG .Q24H ONE IV (CKD) Heparin Sodium (Porcine) (HEPARIN SODIUM) 1,660 UNIT Sodium Bicarbonate (SODIUM BICARBONATE) 0.7 ML Nitroglycerin/Dextrose (NITROGLYCERIN 50MG/D5W 250ML) 8.3 MG Lactated Ringer's (LACTATED RINGERS) 949.5 MLAcetaminophen (TYLENOL EXTRA STRENGTH) 1,000 MG PREOP ONCALL PO (CKD) Gabapentin (NEURONTIN) 200 MG PREOP ONCALL PO (CKD) Sodium Chloride (SODIUM CHLORIDE) 20 ML ASDIR IV Perflutren Protein Type A Microsphe (OPTISON 3ML VIAL) 0 .STK-MED ONE IV (DC) Aspirin (ASPIRIN) 81 MG DAILY PO Hydrocodone Bitart/Acetaminophen (NORCO 10/325) 1 TAB TID PRN PRN PO Atorvastatin Calcium (LIPITOR) 40 MG BEDTIME PO Insulin Human Lispro (HUMALOG) 0 AC HS SUBQ Mupirocin (BACTROBAN 2% 22 GM OINTMENT) 1 APPLIC BID NASAL Dextrose/Water (DEXTROSE 10% IN WATER) 125 ML ASDIR PRN IV (CKD) Dextrose/Water (DEXTROSE 10% IN WATER) 250 ML ASDIR PRN IV (CKD) Glucagon (GLUCAGON) 1 MG ASDIR PRN IM Heparin Sodium (HEPARIN 5000 UNITS/ML) 0 ASDIR PRN IV Heparin Sodium (Porcine) (HEPARIN 25,000 UNITS/ 1/2NS 500ML) 500 ML ASDIR IV (CKD) Nicotine (NICODERM) 7 MG DAILY TRANSDERM (CKD) Metoprolol Succinate (TOPROL XL) 25 MG DAILY PO Nitroglycerin (NITROSTAT) 0.4 MG Q5M PRN PRN SL Acetaminophen (TYLENOL) 650 MG Q6H PRN PRN PO Physical ExamGeneral appearance: alert, awake, oriented, no acute distressHead/Eyes: atraumatic, normal conjunctiva/sclera, normal eyelids/periorb.Neck: full range of motion, non-tender, no JVDCardiovascular: normal heart sounds, regular rate rhythmRespiratory: aerating well, clear to auscultationAbdomen: non-tender, normal bowel sounds, soft, no distentionExtremities: moves all, no calf tenderness, no edemaNeuro/DRAWER MAKER: alert, oriented X 3, CNII-XII intact, normal speech, no motor deficits, no sensory deficitsSkin: dry, intact ResultsFindings/Data:Laboratory Tests 11/29 11/29 11/29 11/29 11/28 0715 0443 0443 0443 2155Chemistry Sodium (134 - 147 mEq/L) 139 Potassium (3.4 - 5.0 mEq/L) 3.9 Chloride (100 - 108 mEq/L) 111 H Carbon Dioxide (21 - 33 mEq/l) 23 Anion Gap (0 - 20) 9 BUN (7 - 25 mg/dL) 26 H Creatinine (0.6 - 1.3 mg/dL) 0.8 Glomerular Filtr Rate (90 - 95) 105.2 H Glucose (77 - 141 mg/dL) 191 H POC Glucose (70 - 110 MG/DL) 169 H 200 H Hemoglobin A1c (4.8 - 6.0 %A1C) 8.8 H Calcium (8.0 - 10.5 mg/dL) 8.0 Total Bilirubin (0.0 - 1.0 mg/dL) 0.40 AST (8 - 34 IUnit/L) 15 ALT (10 - 49 IUnit/L) 19 Total Alk Phosphatase (20 - 125 IUnit/L) 65 B-Natriuretic Peptide (0 - 100 PG/ML) 76.0 Total Protein (6.4 - 8.2 g/dL) 5.5 L Albumin (3.4 - 5.0 g/dL) 3.10 L Triglycerides (40 - 150 mg/dL) 259 H Cholesterol (<200 mg/dL) 108 LDL Cholesterol Measurd (0 - 100 mg/dL) 61.0 HDL Cholesterol (40 - 60 MG/DL) 25.1 L Cholesterol/HDL Ratio (3.43 - 4.97 RATIO) 4.30 11/28 11/28 1621 1059 Chemistry POC Glucose (70 - 110 MG/DL) 145 H 225 H Laboratory Tests 11/29 0443 1759 1205 Coagulation INR (0.8 - 1.2) 1.0 PTT (Ulises) (25.0 - 39.5 Seconds) 75.5 H 58.4 H 67.5 H PT Patient/Control Mix (9.3 - 12.9 SECONDS) 11.4 Plt P2Y12 React Units (182 - 335 PRU) 155 L Laboratory Tests 11/29 442 Hematology WBC (4.5 - 11.0 x10 3/uL) 7.3 RBC (4.00 - 5.60 x10 6/uL) 5.39 Hgb (12.5 - 16.9 g/dL) 15.5 Hct (37.5 - 50.7 %) 45.5 MCV (81.0 - 99.0 fL) 84.4 MCH (27.0 - 33.0 pg) 28.8 MCHC (33.0 - 37.0 g/dL) 34.1 RDW (11.5 - 14.5 %) 13.8 Plt Count (150 - 400 x10 3/uL) 196 MPV (7.0 - 9.0 fL) 10.6 H Neut % (Auto) (56.0 - 77.0 %) 57.6 Lymph % (Auto) (14.0 - 32.0 %) 26.3 Fisher % (Auto) (4.8 - 9.0 %) 9.5 H Eos % (Auto) (0.3 - 3.7 %) 5.3 H Baso % (Auto) (0.0 - 2.0 %) 0.8 Neut # (Auto) (2.0 - 7.6 x10 3/uL) 4.19 Lymph # (Auto) (1.0 - 3.8 x10 3/uL) 1.92 Fisher # (Auto) (0.1 - 0.8 x10 3/uL) 0.69 Eos # (Auto) (0.0 - 0.2 x10 3/uL) 0.39 H Baso # (Auto) (0.0 - 0.2 x10 3/uL) 0.06 Abs Immat Gran (auto) (0.00 - 0.03 x10 3/uL) 0.04 H Immature Gran % (0.0 - 2.0 %) 0.5 Nucleated RBC % (0 - 0 %) 0.0 Nucleated RBCs # (Man) (0.0 - 0.1 x10 3/uL) 0.00 Laboratory Tests 11/28 1805 Serology SARS-CoV-2 Ag (Rapid) (Negative) Negative Diagnosis, Assessment PlanConsultants: cardiology, cardiovascular surgery Free Text DxA P NotesFree text DxA P notes: CAD with stents DMHTNHLD tele cardiology consult CV surgeon -- work up for CABG HTN-- BP well control -- continue metoprololDM-- sliding scale -- Hba1c HLD--continue lipitor will follow the patient and manage DM with you during the hospital stay 11/28- he complaint of cp -- monitor in ccu - manage as cardiology -- pre OP for CABG -- may be this week as surgeon -- DM -- not well control -- adjust insulin 11/29 Pending CABG. Continue monitoring in CCU. at 1715 at 1718 RPT #:[id number] OF REPORTPRProgress [id number]:46:00G.[id number] able for patient gjtnTAIAVQWJPQZAYJ6768-03-42C98:25:37 [facility] 2023-11-28 11:48:00 [id number]/g+6GfaBC30oi/ azc8zzoNlH/+WdfdgEHp5he1wwW2408-33-36I14:48:00 [facility] ([facility]ENTERCardiology Progress NoteREPORT#:[id number] REPORT STATUS: SignedREPORT INITIALIZATION DATE:11/28/23 TIME: 1148 PATIENT: CHARAN RESTREPO UNIT #: [id number]#: [id number] [address] [birth year] AGE: 53 SEX: M ATTEND: Papo Mayfield MDADM AUTHOR: Fiona Foster AGACNPREPT SERVICE DT/TIME: 11/28/23 1148* ALL edits or amendments must be made on the electronic/computer document * Fiona Foster 11/28/23 1148:SubjectivePatient reports:Yes: chest pain. Objective GeneralVS/I O:24 hour I O ending at 0700: 11/28 0700 02 1900 Intake Total 308.00 268.00 Output Total Balance 308.00 268.00 Intake, IV 308.00 28.00 Intake, Oral 240 Number Voids 4 Patient 83.2 kg Weight Weight Standing scale Measurement Method Vital Signs: Date Time Temp Pulse Resp B/P B/P Pulse O2 O2 Flow FiO2 Mean Ox Delivery Rate 11/28 0800 36.9 11/28 0400 36.2 11/28 0300 62 17 137/64 92 95 02/ 0201 61 15 101/55 74 98 02/07 0100 63 16 135/73 97 96 02/07 0000 36.7 02/07 0000 68 17 97/54 72 94 02/ 2301 68 13 122/64 86 97 02/06 2201 73 18 104/49 71 95 02/06 2100 68 17 133/67 94 94 02/ 2000 36.9 02/06 2000 73 12 115/66 84 94 02/ 1900 77 26 139/71 96 96 02/ 1600 37.0 02/ 1500 75 12 104/51 73 95 02/06 1439 81 25 136/57 81 97 02/ 1350 86 19 139/67 97 100 PATIENT WEIGHT: Weight (lb): 183Weight (oz): 6.79Weight (kg): 83.200 Medications:Active Meds + DC'd Last 24 HrsHydrocodone Bitart/Acetaminophen (NORCO 10/325) 1 TAB TID PRN PRN PO Atorvastatin Calcium (LIPITOR) 40 MG BEDTIME PO Insulin Human Lispro (HUMALOG) 0 AC HS SUBQ Mupirocin (BACTROBAN 2% 22 GM OINTMENT) 1 APPLIC BID NASAL Dextrose/Water (DEXTROSE 10% IN WATER) 125 ML ASDIR PRN IV (CKD) Dextrose/Water (DEXTROSE 10% IN WATER) 250 ML ASDIR PRN IV (CKD) Glucagon (GLUCAGON) 1 MG ASDIR PRN IM Heparin Sodium (HEPARIN 5000 UNITS/ML) 0 ASDIR PRN IV Heparin Sodium (Porcine) (HEPARIN 25,000 UNITS/ 1/2NS 500ML) 500 ML ASDIR IV (CKD) Nicotine (NICODERM) 7 MG DAILY TRANSDERM (CKD) Metoprolol Succinate (TOPROL XL) 25 MG DAILY PO Nitroglycerin (NITROSTAT) 0.4 MG Q5M PRN PRN SL Acetaminophen (TYLENOL) 650 MG Q6H PRN PRN PO Morphine Sulfate (morphine SULFATE) 2 MG Q4H PRN PRN IV (DC) Physical ExamGeneral appearance: alert, awake, orientedNeck: no JVDCardiovascular: CV assessment: regular rate and rhythm, normal heart soundsRespiratory: clear to auscultation, no distressAbdomen: soft, non-tender, normal bowel sounds, no distentionLower extremity: LE assessment: no edemaNeuro/DRAWER MAKER: alert, oriented X 3, no motor deficitsSkin: dry, intact, normal colorPsychiatry: normal affect, normal judgment/insight, normal mood ResultsFindings/Data:Laboratory Tests 11/28 11/28 11/28 11/28 11/27 1059 0715 0457 0448 2131Chemistry Sodium (134 - 147 mEq/L) 139 Potassium (3.4 - 5.0 mEq/L) 3.9 Chloride (100 - 108 mEq/L) 110 H Carbon Dioxide (21 - 33 mEq/l) 25 Anion Gap (0 - 20) 8 BUN (7 - 25 mg/dL) 15 Creatinine (0.6 - 1.3 mg/dL) 0.7 Glomerular Filtr Rate (90 - 95) 109.5 H Glucose (77 - 141 mg/dL) 167 H POC Glucose (70 - 110 MG/DL) 225 H 169 H 276 H Hemoglobin A1c (4.8 - 6.0 %A1C) 8.7 H Calcium (8.0 - 10.5 mg/dL) 8.6 Total Bilirubin (0.0 - 1.0 mg/dL) 0.70 AST (8 - 34 IUnit/L) 15 ALT (10 - 49 IUnit/L) 18 Total Alk Phosphatase (20 - 125 66IUnit/L) Total Protein (6.4 - 8.2 g/dL) 6.3 L Albumin (3.4 - 5.0 g/dL) 3.50 11/27 1616 Chemistry POC Glucose (70 - 110 MG/DL) 212 H Laboratory Tests 11/288 0448 2339 1817 Coagulation PTT (Irwin) (25.0 - 39.5 Seconds) 52.1 H 47.4 H 42.1 H Plt P2Y12 React Units (182 - 335 PRU) 117 L Laboratory Tests 11/28 0448 Hematology WBC (4.5 - 11.0 x10 3/uL) 8.4 RBC (4.00 - 5.60 x10 6/uL) 5.66 H Hgb (12.5 - 16.9 g/dL) 16.0 Hct (37.5 - 50.7 %) 47.6 MCV (81.0 - 99.0 fL) 84.1 MCH (27.0 - 33.0 pg) 28.3 MCHC (33.0 - 37.0 g/dL) 33.6 RDW (11.5 - 14.5 %) 13.8 Plt Count (150 - 400 x10 3/uL) 202 MPV (7.0 - 9.0 fL) 10.7 H Neut % (Auto) (56.0 - 77.0 %) 67.0 Lymph % (Auto) (14.0 - 32.0 %) 20.7 Fisher % (Auto) (4.8 - 9.0 %) 7.8 Eos % (Auto) (0.3 - 3.7 %) 3.2 Baso % (Auto) (0.0 - 2.0 %) 0.8 Neut # (Auto) (2.0 - 7.6 x10 3/uL) 5.59 Lymph # (Auto) (1.0 - 3.8 x10 3/uL) 1.73 Fisher # (Auto) (0.1 - 0.8 x10 3/uL) 0.65 Eos # (Auto) (0.0 - 0.2 x10 3/uL) 0.27 H Baso # (Auto) (0.0 - 0.2 x10 3/uL) 0.07 Abs Immat Gran (auto) (0.00 - 0.03 x10 3/uL) 0.04 H Immature Gran % (0.0 - 2.0 %) 0.5 Nucleated RBC % (0 - 0 %) 0.0 Nucleated RBCs # (Man) (0.0 - 0.1 x10 3/uL) 0.00 Laboratory Tests 11/27 1824 Urines Urine Color (YEL/STRAW) YELLOW Urine Appearance (CLEAR) CLEAR Urine pH (5.0 - 7.0) 5.0 Ur Specific [place] (1.005 - 1.030) 1.023 Urine Protein (NEGATIVE) NEGATIVE Urine Glucose (UA) (NEGATIVE) 3+ H Urine Ketones (NEGATIVE) NEGATIVE Urine Blood (NEGATIVE) NEGATIVE Urine Nitrite (NEGATIVE) NEGATIVE Urine Bilirubin (NEGATIVE) NEGATIVE Urine Urobilinogen (0.2 - 1.0 mg/dL) 4.0 H Ur Leukocyte Esterase (NEGATIVE) NEGATIVE Urine RBC (0 - 3 RBC/HPF) 0-3 Urine WBC (0 - 3 WBC/HPF) 0-3 Ur Squamous Epith Cells (NONE SEEN /HPF) 0-5 Urine Bacteria (NONE SEEN /HPF) NONE SEEN Urine Mucus (NONE SEEN /LPF) TRACE Microbiology Date/Time Procedure - Status Source Growth 11/27 1824 MSSA Surveillance Screen - COMP NASAL 11/27 1824 MRSA DNA Surveillance Screen - COMP NASAL Radiology data:Recent Impressions:RADIOLOGY - XR CHEST 1 V 11/27 1455 Report Impression - Status: SIGNED Entered: 11/27/2023 1619 IMPRESSION: Cardiomegaly without pulmonary edema.Impression By: [email or web address] - Sarah Brizuela M.D.ULTRASOUND - DUP EXTRACRANIAL BRENDA 11/27 1615 Report Impression - Status: SIGNED Entered: 11/27/2023 1632 IMPRESSION:1. Normal carotid duplex ultrasound.2. Antegrade vertebral artery flow bilaterally. Impression By: [email or web address] Colleen Roper M.D.ULTRASOUND - US EXTREM NON VASC COMP 11/27 1616 Report Impression - Status: SIGNED Entered: 11/28/2023 0916 IMPRESSION:Patent bilateral greater saphenous veins.Impression By: [email or web address] - Yamilka J Yeboa, M.D. Results: labs reviewed, vital signs reviewedTelemetry Interpretation:Normal sinus rhythmEcho results: Summary: 1. Left ventricle: The cavity size is mildly dilated. Wall thickness is mildly increased. The estimated ejection fraction is 30-34%. Grade I diastolic dysfunction.2. Pericardium, extracardiac: A small pericardial effusion is identified anterior to the heart.3. Regional wall motion: There is akinesis of the mid-apical anterior, mid anteroseptal, apical septal, apical inferior, and apical lateral fleipe and the apex. There is severe hypokinesis of the basal inferoseptal wall. There is mild hypokinesis of the basal anteroseptal, basal-mid inferior, and mid inferoseptal felipe. Diagnosis, Assessment PlanPlan discussed with: patient, collaborating MD, nurse Free Text DxA P NotesFree Text DxA P Notes:1. 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 CP improved with Morphine and NTG. Continue heparin drip. Add aspirin 81 mg daily. Continue atorvastatin and metoprolol 2. DMII: per Hospitalist 3. HTN: BP stable. Continue BB 4. 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 Continue beta-luís. GDMT as tolerated. Waiting for CABG. Merlene Rutherford 11/29/23 1337:Attestations Physician AttestationAgree w/findings plan:I have seen and examined the pt, I Agree with the findings and plan as documented by Fiona Foster. at 1410 at 1337 RPT #:[id number] OF REPORTPRProgress [id number]:48:00G.[id number] able for patient kmjxBNLAWNFOZYWMKQ4183-26-66Q57:10:25 [facility] 2023-11-28 11:26:00 [id number] Hv00e0Pn3ZyktF+lUiKLdj8kit2OU uhhNCV5nkVskCcI4Kpaa2okgo677322-95-17V05:26:00 [facility] ([facility])Hospitalist Progress NoteREPORT#:[id number] REPORT STATUS: SignedREPORT INITIALIZATION DATE:11/28/23 TIME: 1125 PATIENT: CHARAN RESTREPO UNIT #: [id number]#: [id number] [address] [birth year] AGE: 53 SEX: M ATTEND: Papo Mayfield MDADM AUTHOR: Marilyn Mayfield MDREPT SERVICE DT/TIME: 11/28/23 112* ALL edits or amendments must be made on the electronic/computer document * SubjectiveChief complaint:he still complaint of cp . CABG work up Review of SystemsCardiovascular:Reports: chest pain. All systems rev neg: except as noted Objective GeneralVS/I O:Vital Signs: Date Time Temp Pulse Resp B/P B/P Pulse O2 O2 Flow FiO2 Mean Ox Delivery Rate 11/28 0800 36.9 / 0400 36.2 11/28 0300 62 17 137/64 92 95 11/28 0201 61 15 101/55 74 98 02/ 0100 63 16 135/73 97 96 02/07 0000 36.7 02/ 0000 68 17 97/54 72 94 02/ 2301 68 13 122/64 86 97 02/ 2201 73 18 104/49 71 95 02/06 2100 68 17 133/67 94 94 02 2000 36.9 02 2000 73 12 115/66 84 94 11/27 1900 77 26 139/71 96 96 02/ 1600 37.0 02/ 1500 75 12 104/51 73 95 02/06 1439 81 25 136/57 81 97 / 1350 86 19 139/67 97 100 24 hour I O ending at 0700: 11/28 0700 11/27 1900 Intake Total 308.00 268.00 Output Total Balance 308.00 268.00 Intake, IV 308.00 28.00 Intake, Oral 240 Number Voids 4 Patient 83.2 kg Weight Weight Standing scale Measurement Method PATIENT WEIGHT: Weight (lb): 183Weight (oz): 6.79Weight (kg): 83.200 Medications:Active Meds + DC'd Last 24 HrsHydrocodone Bitart/Acetaminophen (NORCO 10/325) 1 TAB TID PRN PRN PO Atorvastatin Calcium (LIPITOR) 40 MG BEDTIME PO Insulin Human Lispro (HUMALOG) 0 AC HS SUBQ Mupirocin (BACTROBAN 2% 22 GM OINTMENT) 1 APPLIC BID NASAL Dextrose/Water (DEXTROSE 10% IN WATER) 125 ML ASDIR PRN IV (CKD) Dextrose/Water (DEXTROSE 10% IN WATER) 250 ML ASDIR PRN IV (CKD) Glucagon (GLUCAGON) 1 MG ASDIR PRN IM Heparin Sodium (HEPARIN 5000 UNITS/ML) 0 ASDIR PRN IV Heparin Sodium (Porcine) (HEPARIN 25,000 UNITS/ 1/2NS 500ML) 500 ML ASDIR IV (CKD) Nicotine (NICODERM) 7 MG DAILY TRANSDERM (CKD) Metoprolol Succinate (TOPROL XL) 25 MG DAILY PO Nitroglycerin (NITROSTAT) 0.4 MG Q5M PRN PRN SL Acetaminophen (TYLENOL) 650 MG Q6H PRN PRN PO Morphine Sulfate (morphine SULFATE) 2 MG Q4H PRN PRN IV (DC) Physical ExamGeneral appearance: alert, awake, orientedHead/Eyes: atraumatic, normal conjunctiva/sclera, normal eyelids/periorb.Neck: full range of motion, non-tender, no JVDCardiovascular: normal heart sounds, regular rate rhythmRespiratory: aerating well, clear to auscultationAbdomen: non-tender, normal bowel sounds, soft, no distentionExtremities: moves all, no calf tenderness, no edemaNeuro/DRAWER MAKER: alert, oriented X 3, CNII-XII intact, normal speech, no motor deficits, no sensory deficitsSkin: dry, intact ResultsFindings/Data:Laboratory Tests 11/28 11/28 11/28 11/28 11/27 1059 0715 0457 0448 2131Chemistry Sodium (134 - 147 mEq/L) 139 Potassium (3.4 - 5.0 mEq/L) 3.9 Chloride (100 - 108 mEq/L) 110 H Carbon Dioxide (21 - 33 mEq/l) 25 Anion Gap (0 - 20) 8 BUN (7 - 25 mg/dL) 15 Creatinine (0.6 - 1.3 mg/dL) 0.7 Glomerular Filtr Rate (90 - 95) 109.5 H Glucose (77 - 141 mg/dL) 167 H POC Glucose (70 - 110 MG/DL) 225 H 169 H 276 H Hemoglobin A1c (4.8 - 6.0 %A1C) 8.7 H Calcium (8.0 - 10.5 mg/dL) 8.6 Total Bilirubin (0.0 - 1.0 mg/dL) 0.70 AST (8 - 34 IUnit/L) 15 ALT (10 - 49 IUnit/L) 18 Total Alk Phosphatase (20 - 125 IUnit/L) 66 Total Protein (6.4 - 8.2 g/dL) 6.3 L Albumin (3.4 - 5.0 g/dL) 3.50 11/27 1616 Chemistry POC Glucose (70 - 110 MG/DL) 212 H Laboratory Tests 11/28 11/28 11/28 11/27 11/27 1205 0448 0448 2339 1817 Coagulation PTT (Ulises) (25.0 - 39.5 Seconds) 67.5 H 52.1 H 47.4 H 42.1 H Plt P2Y12 React Units (182 - 335 PRU) 117 L Laboratory Tests 11/28 0448 Hematology WBC (4.5 - 11.0 x10 3/uL) 8.4 RBC (4.00 - 5.60 x10 6/uL) 5.66 H Hgb (12.5 - 16.9 g/dL) 16.0 Hct (37.5 - 50.7 %) 47.6 MCV (81.0 - 99.0 fL) 84.1 MCH (27.0 - 33.0 pg) 28.3 MCHC (33.0 - 37.0 g/dL) 33.6 RDW (11.5 - 14.5 %) 13.8 Plt Count (150 - 400 x10 3/uL) 202 MPV (7.0 - 9.0 fL) 10.7 H Neut % (Auto) (56.0 - 77.0 %) 67.0 Lymph % (Auto) (14.0 - 32.0 %) 20.7 Fisher % (Auto) (4.8 - 9.0 %) 7.8 Eos % (Auto) (0.3 - 3.7 %) 3.2 Baso % (Auto) (0.0 - 2.0 %) 0.8 Neut # (Auto) (2.0 - 7.6 x10 3/uL) 5.59 Lymph # (Auto) (1.0 - 3.8 x10 3/uL) 1.73 Fisher # (Auto) (0.1 - 0.8 x10 3/uL) 0.65 Eos # (Auto) (0.0 - 0.2 x10 3/uL) 0.27 H Baso # (Auto) (0.0 - 0.2 x10 3/uL) 0.07 Abs Immat Gran (auto) (0.00 - 0.03 x10 3/uL) 0.04 H Immature Gran % (0.0 - 2.0 %) 0.5 Nucleated RBC % (0 - 0 %) 0.0 Nucleated RBCs # (Man) (0.0 - 0.1 x10 3/uL) 0.00 Laboratory Tests 11/27 1824 Urines Urine Color (YEL/STRAW) YELLOW Urine Appearance (CLEAR) CLEAR Urine pH (5.0 - 7.0) 5.0 Ur Specific [place] (1.005 - 1.030) 1.023 Urine Protein (NEGATIVE) NEGATIVE Urine Glucose (UA) (NEGATIVE) 3+ H Urine Ketones (NEGATIVE) NEGATIVE Urine Blood (NEGATIVE) NEGATIVE Urine Nitrite (NEGATIVE) NEGATIVE Urine Bilirubin (NEGATIVE) NEGATIVE Urine Urobilinogen (0.2 - 1.0 mg/dL) 4.0 H Ur Leukocyte Esterase (NEGATIVE) NEGATIVE Urine RBC (0 - 3 RBC/HPF) 0-3 Urine WBC (0 - 3 WBC/HPF) 0-3 Ur Squamous Epith Cells (NONE SEEN /HPF) 0-5 Urine Bacteria (NONE SEEN /HPF) NONE SEEN Urine Mucus (NONE SEEN /LPF) TRACE Microbiology Date/Time Procedure - Status Source Growth 11/27 1824 MSSA Surveillance Screen - COMP NASAL 11/27 1824 MRSA DNA Surveillance Screen - COMP NASAL Radiology data:Recent Impressions:RADIOLOGY - XR CHEST 1 V 11/27 1455 Report Impression - Status: SIGNED Entered: 11/27/2023 1619 IMPRESSION: Cardiomegaly without pulmonary edema.Impression By: [email or web address] - Sarah Brizuela M.D.ULTRASOUND - DUP EXTRACRANIAL BRENDA 11/27 1615 Report Impression - Status: SIGNED Entered: 11/27/2023 1632 IMPRESSION:1. Normal carotid duplex ultrasound.2. Antegrade vertebral artery flow bilaterally. Impression By: Roni Roper M.D.ULTRASOUND - US EXTREM NON VASC COMP 11/27 1616 Report Impression - Status: SIGNED Entered: 11/28/2023 0916 IMPRESSION:Patent bilateral greater saphenous veins.Impression By: Sintia Montaño M.D. Diagnosis, Assessment PlanConsultants: cardiology, cardiovascular surgery Free Text DxA P NotesFree text DxA P notes: CAD with stents DMHTNHLD tele cardiology consult CV surgeon -- work up for CABG HTN-- BP well control -- continue metoprololDM-- sliding scale -- Hba1c HLD--continue lipitor will follow the patient and manage DM with you during the hospital stay 11/28- he complaint of cp -- monitor in ccu - manage as cardiology -- pre OP for CABG -- may be this week as surgeon -- DM -- not well control -- adjust insulin Quality: Gen Med Crit Care Current MedicationsCurrent medication review: Current Medications Sig/Marie Start time Last Medication Dose Route Stop Time Status Admin Atorvastatin Calcium 40 MG BEDTIME 11/27 2100 AC PO 12/26 2059 Insulin Human Lispro 0 AC HS 11/27 1630 AC 11/27 SUBQ 02/24 1629 1625 Mupirocin 1 APPLIC BID 11/27 1400 AC 11/27 NASAL 12/01 2101 1348 Dextrose/Water 125 ML ASDIR PRN 11/27 1300 CKD IV 02/24 1259 Dextrose/Water 250 ML ASDIR PRN 11/27 1300 CKD IV 02/24 1259 Glucagon 1 MG ASDIR PRN 11/27 1300 AC IM 02/24 1259 Heparin Sodium 0 ASDIR PRN 11/27 1015 AC IV 02/24 1014 Heparin Sodium 500 ML ASDIR 11/27 1015 CKD 11/27 (Porcine) IV 02/24 1014 1234 Nicotine 7 MG DAILY 11/27 1015 CKD 11/27 TRANSDERM 02/24 1014 1247 Metoprolol Succinate 25 MG DAILY 11/27 0900 AC 11/27 PO 02/24 0859 0838 Nitroglycerin 0.4 MG Q5M PRN PRN 11/27 0715 AC 11/27 SL 1437 Perflutren Lipid 0 .STK-MED ONE 11/27 0653 DC Microsphere IV Acetaminophen 650 MG Q6H PRN PRN 11/27 0200 AC PO 02/24 0159 Morphine Sulfate 2 MG Q4H PRN PRN 11/27 0200 AC 11/27 IV 12/02 0159 1520 Home Medications:ATORVASTATIN (LIPITOR) 40 MG PO BEDTIME METOPROLOL SUCC XL (TOPROL XL) 25 MG PO DAILY ASPIRIN 81 MG PO DAILY I attest that the foregoing medication list in the medical record is true, accurate, and complete to the best of my knowledge. at 1322 RPT #:[id number] OF REPORTPRProgress [id number]:26:00G.[id number] able for patient fgclLVVEYPJTSTJGWM3142-27-32W65:22:25 [facility] 2023-11-28 09:11:00 [id number] [id number] tvA68Q0tTXxvNOflsOum7Kd/V5u5225-53-58J16:11:00 [facility] ProgREPORT#:[id number] REPORT STATUS: SignedREPORT INITIALIZATION DATE:11/28/23 TIME: 910 PATIENT: CHARAN RESTREPO UNIT #: [id number]#: [id number] [address] [birth year] AGE: 53 SEX: M ATTEND: Papo Mayfield MDADM AUTHOR: Papo Mayfield MDREPT SERVICE DT/TIME: 11/28/23 0911* ALL edits or amendments must be made on the electronic/computer document * SubjectiveChief complaint:chest painCADpre op CABG Review of SystemsConstitutional:Denies: chills, fatigue, fever. Skin:Denies: abrasion, bruising, contusion. Allergy/Immun:Denies: allergic reaction, anaphylaxis, hives. ENT:Denies: ear drainage, ear ringing, earache. Respiratory:Denies: DWYER (dyspnea on exertion), pneumonia, SOB. Cardiovascular:Reports: chest pain. Denies: palpitations. :Denies: dysuria, flank pain. Musculoskeletal:Denies: arthritis, extremity pain, joint pain. Neuro:Denies: confusion, dizziness, seizure, syncope. Psych:Denies: agitation, anxiety. All systems rev neg: except as marked Objective GeneralVS/I OLast Documented: Result Date Time Temp 36.9 11/28 0800 Pulse Ox 95 11/28 0300 B/P 137/64 11/28 0300 B/P Mean 92 11/28 0300 Pulse 62 11/28 0300 Resp 17 11/28 0300 O2 Delivery Room air 11/27 1118 O2 Flow Rate 2 11/27 0900 24 hour I O ending at 0700: 07 0700 11/27 1900 Intake Total 308.00 268.00 Output Total Balance 308.00 268.00 Intake, IV 308.00 28.00 Intake, Oral 240 Number Voids 4 Patient 83.2 kg Weight Weight Standing scale Measurement Method PATIENT WEIGHT: Weight (lb): 183Weight (oz): 6.79Weight (kg): 83.200 Dietitian Nutrition assessmentThe data set between the solid lines has been imported from the dietitian's assessment. BMI Calculated: 26.3Nutrition related diagnosis: Nutrition diagnosis details: Nutrition problem: Nutrition etiology: Nutrition signs and symptoms: Nutrition prescription: Dietitian name: Assessment completed: Physical ExamGeneral appearance: alert, awake, orientedHEENT: anicteric, mucosal membranes moistNeck: full range of motion, non-tenderRespiratory: aerating well, symmetric expansionAbdomen: soft, non-tenderGenitourinary: no bladder distention, no flank pain, no foleyExtremities: dry, moves allMusculoskeletal: full range of motionNeuro/DRAWER MAKER: alert, oriented X 3Skin: dry, intact, normal temperaturePsychiatry: normal affect, normal mood Current MedicationsMedications:Active Meds + DC'd Last 24 HrsHydrocodone Bitart/Acetaminophen (NORCO 10/325) 1 TAB TID PRN PRN PO Atorvastatin Calcium (LIPITOR) 40 MG BEDTIME PO Insulin Human Lispro (HUMALOG) 0 AC HS SUBQ Mupirocin (BACTROBAN 2% 22 GM OINTMENT) 1 APPLIC BID NASAL Dextrose/Water (DEXTROSE 10% IN WATER) 125 ML ASDIR PRN IV (CKD) Dextrose/Water (DEXTROSE 10% IN WATER) 250 ML ASDIR PRN IV (CKD) Glucagon (GLUCAGON) 1 MG ASDIR PRN IM Heparin Sodium (HEPARIN 5000 UNITS/ML) 0 ASDIR PRN IV Heparin Sodium (Porcine) (HEPARIN 25,000 UNITS/ 1/2NS 500ML) 500 ML ASDIR IV (CKD) Nicotine (NICODERM) 7 MG DAILY TRANSDERM (CKD) Metoprolol Succinate (TOPROL XL) 25 MG DAILY PO Nitroglycerin (NITROSTAT) 0.4 MG Q5M PRN PRN SL Acetaminophen (TYLENOL) 650 MG Q6H PRN PRN PO Morphine Sulfate (morphine SULFATE) 2 MG Q4H PRN PRN IV (DC) ResultsFindings/Data:Laboratory Tests 11/28 11/28 11/28 11/27 11/27 0715 0457 2068 7771 1616Chemistry Sodium (134 - 147 mEq/L) 139 Potassium (3.4 - 5.0 mEq/L) 3.9 Chloride (100 - 108 mEq/L) 110 H Carbon Dioxide (21 - 33 mEq/l) 25 Anion Gap (0 - 20) 8 BUN (7 - 25 mg/dL) 15 Creatinine (0.6 - 1.3 mg/dL) 0.7 Glomerular Filtr Rate (90 - 95) 109.5 H Glucose (77 - 141 mg/dL) 167 H POC Glucose (70 - 110 MG/DL) 169 H 276 H 212 H Hemoglobin A1c (4.8 - 6.0 %A1C) 8.7 H Calcium (8.0 - 10.5 mg/dL) 8.6 Total Bilirubin (0.0 - 1.0 mg/dL) 0.70 AST (8 - 34 IUnit/L) 15 ALT (10 - 49 IUnit/L) 18 Total Alk Phosphatase (20 - 125 66IUnit/L) Total Protein (6.4 - 8.2 g/dL) 6.3 L Albumin (3.4 - 5.0 g/dL) 3.50 11/27 11/27 1120 1046 Chemistry POC Glucose (70 - 110 MG/DL) 248 H Troponin I High Sens (0 - 54 ng/L) 10 Laboratory Tests 11/288 0448 2339 1817 1041Coagulation PTT (Irwin) (25.0 - 39.5 Seconds) 52.1 H 47.4 H 42.1 H Plt P2Y12 React Units (182 - 335 117 L 131 LPRU) 11/27 1041 Coagulation INR (0.8 - 1.2) 1.1 PTT (Irwin) (25.0 - 39.5 Seconds) 34.3 PT Patient/Control Mix (9.3 - 12.9 SECONDS) 12.7 Laboratory Tests 11/288 1046 Hematology WBC (4.5 - 11.0 x10 3/uL) 8.4 7.9 RBC (4.00 - 5.60 x10 6/uL) 5.66 H 5.42 Hgb (12.5 - 16.9 g/dL) 16.0 15.6 Hct (37.5 - 50.7 %) 47.6 45.7 MCV (81.0 - 99.0 fL) 84.1 84.3 MCH (27.0 - 33.0 pg) 28.3 28.8 MCHC (33.0 - 37.0 g/dL) 33.6 34.1 RDW (11.5 - 14.5 %) 13.8 13.7 Plt Count (150 - 400 x10 3/uL) 202 188 MPV (7.0 - 9.0 fL) 10.7 H 10.6 H Neut % (Auto) (56.0 - 77.0 %) 67.0 71.5 Lymph % (Auto) (14.0 - 32.0 %) 20.7 17.4 Fisher % (Auto) (4.8 - 9.0 %) 7.8 7.1 Eos % (Auto) (0.3 - 3.7 %) 3.2 2.9 Baso % (Auto) (0.0 - 2.0 %) 0.8 0.6 Neut # (Auto) (2.0 - 7.6 x10 3/uL) 5.59 5.68 Lymph # (Auto) (1.0 - 3.8 x10 3/uL) 1.73 1.38 Fisher # (Auto) (0.1 - 0.8 x10 3/uL) 0.65 0.56 Eos # (Auto) (0.0 - 0.2 x10 3/uL) 0.27 H 0.23 H Baso # (Auto) (0.0 - 0.2 x10 3/uL) 0.07 0.05 Abs Immat Gran (auto) (0.00 - 0.03 x10 3/uL) 0.04 H 0.04 H Immature Gran % (0.0 - 2.0 %) 0.5 0.5 Nucleated RBC % (0 - 0 %) 0.0 0.0 Nucleated RBCs # (Man) (0.0 - 0.1 x10 3/uL) 0.00 0.00 Laboratory Tests 11/27 1824 Urines Urine Color (YEL/STRAW) YELLOW Urine Appearance (CLEAR) CLEAR Urine pH (5.0 - 7.0) 5.0 Ur Specific [place] (1.005 - 1.030) 1.023 Urine Protein (NEGATIVE) NEGATIVE Urine Glucose (UA) (NEGATIVE) 3+ H Urine Ketones (NEGATIVE) NEGATIVE Urine Blood (NEGATIVE) NEGATIVE Urine Nitrite (NEGATIVE) NEGATIVE Urine Bilirubin (NEGATIVE) NEGATIVE Urine Urobilinogen (0.2 - 1.0 mg/dL) 4.0 H Ur Leukocyte Esterase (NEGATIVE) NEGATIVE Urine RBC (0 - 3 RBC/HPF) 0-3 Urine WBC (0 - 3 WBC/HPF) 0-3 Ur Squamous Epith Cells (NONE SEEN /HPF) 0-5 Urine Bacteria (NONE SEEN /HPF) NONE SEEN Urine Mucus (NONE SEEN /LPF) TRACE Microbiology Date/Time Procedure - Status Source Growth 11/27 1824 MSSA Surveillance Screen - COMP NASAL 11/27 1824 MRSA DNA Surveillance Screen - COMP NASAL Radiology data:Recent Impressions:CAT SCAN - CT CHEST W/O CONTRAST 11/27 0943 Report Impression - Status: SIGNED Entered: 11/27/2023 1027 IMPRESSION: 1. Prominent LAD coronary artery calcifications and/or LAD stent. Faint coronary artery calcifications are seen at the right coronaryartery and circumflex coronary artery. There is mild leftventriculomegaly, consistent with CHF, and questionable mural thrombusat the left ventricular apex; echocardiogram correlation should beconsidered. This was discussed by phone with the ordering clinicianROCIO Baird at 10:23 AM on 11/27/2023.2. Subtle diffuse centrilobular groundglass nodules throughout thelungs. This is consistent with an inflammatory process, and couldpotentially be seen with smoking or environmental exposure.3. There are 3 noncalcified nodules, located in the left upper lobe,left lower lobe, and right middle lobe. These measure up to 4 mm. Inthe absence of a known cancer history, if the patient is low risk, nofollow-up is recommended. If the patient is high risk, low dose CTchest follow-up in 12 months is optional based on 2017 [facility] criteria. FOR INTERNAL CODING PURPOSES ONLYRESULT CODE: CVRMD One or more of the following dose reduction techniques were used:Automated exposure control, adjustment of the mA and/or kV accordingto patient size, and/or utilization of iterative reconstructiontechnique.DLP: 170 mGy-cm CTDI: 4.5 mGy Impression By: [email or web address] - Landen Roper M.D.RADIOLOGY - XR CHEST 1 V 11/27 1455 Report Impression - Status: SIGNED Entered: 11/27/2023 1619 IMPRESSION: Cardiomegaly without pulmonary edema.Impression By: [email or web address] - Sarah Brizuela M.D.ULTRASOUND - DUP EXTRACRANIAL BRENDA 11/27 1615 Report Impression - Status: SIGNED Entered: 11/27/2023 1632 IMPRESSION:1. Normal carotid duplex ultrasound.2. Antegrade vertebral artery flow bilaterally. Impression By: ArleneBCWesley - Landen Roper M.D. Results: labs reviewed, vital signs stable, narda personally rev'd, current med profile rev'd Quality: Trauma Gen Surg Current MedicationsCurrent medication review: Current Medications Sig/Marie Start time Last Medication Dose Route Stop Time Status Admin Atorvastatin Calcium 40 MG BEDTIME 11/27 2100 AC PO 12/26 2059 Insulin Human Lispro 0 AC HS 11/27 1630 AC 11/27 SUBQ 02/24 1629 1625 Mupirocin 1 APPLIC BID 11/27 1400 AC 11/27 NASAL 12/01 2101 1348 Dextrose/Water 125 ML ASDIR PRN 11/27 1300 CKD IV 02/24 1259 Dextrose/Water 250 ML ASDIR PRN 11/27 1300 CKD IV 02/24 1259 Glucagon 1 MG ASDIR PRN 11/27 1300 AC IM 02/24 1259 Heparin Sodium 0 ASDIR PRN 11/27 1015 AC IV 02/24 1014 Heparin Sodium 500 ML ASDIR 11/27 1015 CKD 11/27 (Porcine) IV 02/24 1014 1234 Nicotine 7 MG DAILY 11/27 1015 CKD 11/27 TRANSDERM 02/24 1014 1247 Metoprolol Succinate 25 MG DAILY 11/27 0900 AC 11/27 PO 02/24 0859 0838 Nitroglycerin 0.4 MG Q5M PRN PRN 11/27 0715 AC 11/27 SL 1437 Perflutren Lipid 0 .STK-MED ONE 11/27 0653 DC Microsphere IV Acetaminophen 650 MG Q6H PRN PRN 11/27 0200 AC PO 02/24 0159 Morphine Sulfate 2 MG Q4H PRN PRN 11/27 0200 AC 11/27 IV 12/02 0159 1520 Home Medications:ATORVASTATIN (LIPITOR) 40 MG PO BEDTIME METOPROLOL SUCC XL (TOPROL XL) 25 MG PO DAILY ASPIRIN 81 MG PO DAILY I attest that the foregoing medication list in the medical record is true, accurate, and complete to the best of my knowledge. Diagnosis, Assessment PlanHospital course to date:This is a 53-year-old gentleman with past medical history of coronary artery disease status post previous PCI in the past, hypertension, diabetes, hyperlipidemia who presented to [facility] with complaints of chest pains. He previously underwent left heart catheterization about 1 month ago and was referred for bypass surgery in the outpatient setting however he did not get hisoutpatient appointment yet. The patient reports back to the hospital with complaints of chest pains radiating to the left arm. 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 Patient reports history of chronic pain, Also reports he smokes 1 pack a day for the past 40 years.Denies alcohol Assessment/plan1. Coronary artery disease Workup for CABG2. Chest pain Patient given nitro and morphine. Will transfer the patient to CCU for heparin drip and nitro drip.3. Hypertension4. Hyperlipidemia5. Diabetes The patient reports he took his last Plavix on 11/25/2023 prior to his hospital admission. Will obtain a stat platelet response to Plavix.Obtain cardiac workup stat including carotid Dopplers, CT of the chest etc.Patient was seen and examined Dr. Mayfield. Plan of care discussed with multidisciplinary team. Patient's questions were answered.Further recommendations to followObtain platelet response plavix. 11/28/23Patient in stable condition, reports some chest pain on and offContinue heparin dripPlatelet response to plavix 117, will recheck in AMCoronary angiogram CD uploaded-will reviewContinue preop workupI will tentatively schedule him for CABG in AM pending platelet response to plavix. I have discussed with him the procedure, risks involved, benefits, STS calculated risk score, alternatives, and complications. Patient verbalized understanding and willing to proceed. All questions were answered. Consultants: cardiology, cardiovascular surgery at 1025 RPT #:[id number] OF REPORTPRProgress [id number]:11:00G.[id number] able for patient [id number]:08:44 HCACL 2023-11-27 14:04:00 [id number]/ [id number]/hb [id number]:04:[id number] 6-[address] [place] [address] PATIENT NAME: CHARAN RESTREPO ADMIT DATE: 11/27/23ACCOUNT NO: [id number] ROOM NO: [id number] AGE: 53 REPORT TYPE: eECHOCARDIOGRAM REPORT SEX: M ADMITTING PHYSICIAN:Papo Mayfield MD ATTENDING PHYSICIAN:Papo Mayfield MD *[place] [id number]: Xhh: [phone] Echocardiogram Patient: Royce Restrepotudy Date: 4BP: 137 / 80URN: [id number]: [id number]#: [id number]: 1970Age: 53Gender: MHeight: 70 in / 177.8 cmWeight: 190 lb / 86.2 kgBMI/BSA: 27.3 kg/m 2 / 2.08 m 2*Ordering Physician: * Dia Baird *Interpreting Physician: * Merlene Rutherford MD*Content Management Specialist: * Skyla Dodd Indications: CARDIAC SURGERY PRE-OP. Study data: Transthoracic echocardiogram. Procedure: A transthoracicechocardiogram was performed. Images were obtained using a [employer]renta cardiacultrasound machine. Image quality was adequate. Intravenous contrast(Definity) was administered. Complete 2D, complete spectral Doppler, andcolor Doppler. Location: Bedside. Patient status: Inpatient. Patient roomnumber: 4420. Study status: Routine. Heart rate: 71 bpm. Findings Left ventricle: The cavity size is mildly dilated. Wall thickness is mildlyincreased. The estimated ejection fraction is 30-34%.Regional wall motion: There is akinesis of the mid-apical anterior, midPATIENT NAME: CHARAN RESTREPO anteroseptal, apical septal, apical inferior, and apical lateral felipe and theapex. There is severe hypokinesis of the basal inferoseptal wall. There ismild hypokinesis of the basal anteroseptal, basal-mid inferior, and midinferoseptal felipe. Grade I diastolic dysfunction.Right ventricle: The cavity size is normal. Systolic function is normal.Left atrium: The atrium is normal in size.Right atrium: The atrium is normal in size.Aorta:Aortic root: The root is normal-sized.Aortic valve: The valve is structurally normal. There is no evidence ofstenosis. There is trace regurgitation.Mitral valve: The valve is structurally normal. There is no evidence ofstenosis. There is trace regurgitation.Tricuspid valve: The valve is structurally normal. There is no significantregurgitation. Unable to estimate the RVSP due to insufficient tricuspidregurgitation jet.Pulmonic valve: The valve is structurally normal. There is no evidence ofstenosis. There is no significant regurgitation.Pericardium: A small pericardial effusion is identified anterior to theheart. Measurements Left ventricle Value Ref 03/19/2023 AFSANEH, LAX 6.3 cm 4.2 - 5.8 5.3 ESD, LAX 4.5 cm 2.5 - 4.0 3.6 FS, LAX 28 % 25 - 43 32 AFSANEH major ax, A2C 10.3 cm --------- ESD major ax, A2C 10.1 cm --------- IVS, ED 1.2 cm 0.6 - 1.0 1.0 PW, ED 1.2 cm 0.6 - 1.0 1.0 IVS/PW, ED 1.03 --------- 0.98 EF 54 % 52 - 72 60 E', lat norberto, TDI 4.2 cm/sec >=10.0 E/e', lat norberto, TDI 20 <=13 E', med norberto, TDI 5.4 cm/sec >=7.0 E/e', med norberto, TDI 15 --------- E', avg, TDI 4.8 cm/sec --------- E/e', avg, TDI 17 <=14 LVOT Value Ref 03/19/2023 Diam, S 2.51 cm --------- Area 4.9 cm 2 --------- 4.7 Peak joyce, S 0.76 m/sec --------- Mean joyce, S 0.44 m/sec --------- VTI, S 13.8 cm --------- Peak grad, S 2 mm Hg --------- Mean grad, S 1 mm Hg --------- SV 68 ml --------- Qs 4.31 L/min --------- Qs/bsa 2.1 L/(min-m 2) --------- SV/bsa 33 ml/m 2 --------- PATIENT NAME: CHARAN RESTREPO Right ventricle Value Ref 03/19/2023 AFSANEH, LAX 2.8 cm --------- 2.6 TAPSE, MM 2.1 cm >=1.7 Left atrium Value Ref 03/19/2023 AP dim, ES 4.2 cm 3.0 - 4.0 3.5 Vol/bsa, S 17 ml/m 2 16 - 34 Vol/bsa, ES, 1-p A4C 11 ml/m 2 12 - 37 Vol, ES, 2-p 36 ml --------- Vol/bsa, ES, 2-p 17 ml/m 2 16 - 34 Vol/bsa, ES, A/L 11 ml/m 2 16 - 34 AP dim, ES MM 4.3 cm 3.0 - 4.0 3.8 LA/Ao root ratio, MM 1.17 --------- 1.05 Right atrium Value Ref 03/19/2023 Area, ES 13 cm 2 10 - 18 SI dim, ES, A4C 4.4 cm 3.4 - 5.3 Vol, ES, A/L 34 ml --------- Vol, ES, 1-p A4C 33 ml --------- Vol/bsa, ES, 1-p A4C 16 ml/m 2 11 - 39 Aortic valve Value Ref 03/19/2023 Leaflet sep, MM 2.60 cm --------- 2.47 Peak v, S 1.5 m/sec --------- 1 Mean v, S 0.99 m/sec --------- 0.73 VTI, S 27.8 cm --------- 20.3 Mean grad, S 5 mm Hg --------- 2 Peak grad, S 9.0 mm Hg --------- 4.1 LVOT/AV, VTI ratio 0.5 --------- SUMEET, VTI 2.45 cm 2 --------- LVOT/AV, Vpeak ratio 0.51 --------- SUMEET, Vmax 2.51 cm 2 --------- Mitral valve Value Ref 03/19/2023 Peak E 0.84 m/sec --------- 0.82 Peak A 0.97 m/sec --------- 0.95 Decel time 204 ms --------- 240 PHT 60 ms --------- Peak grad, D 2.8 mm Hg --------- 5.0 Peak E/A ratio 0.87 --------- MVA, PHT 3.7 cm 2 --------- Tricuspid valve Value Ref 03/19/2023 Peak E 0.56 m/sec --------- Aortic root Value Ref 03/19/2023 Root diam, ED MM 3.7 cm --------- Conclusions Summary: 1. Left ventricle: The cavity size is mildly dilated. Wall thickness is mildlyPATIENT NAME: CHARAN RESTREPO increased. The estimated ejection fraction is 30-34%. Grade I diastolic dysfunction.2. Pericardium, extracardiac: A small pericardial effusion is identified anterior to the heart.3. Regional wall motion: There is akinesis of the mid-apical anterior, mid anteroseptal, apical septal, apical inferior, and apical lateral felipe and the apex. There is severe hypokinesis of the basal inferoseptal wall. There is mild hypokinesis of the basal anteroseptal, basal-mid inferior, and mid inferoseptal felipe.Electronically signed by Merlene Rutherford MD11/27/2023 14:04 at 1404 PATIENT NAME: BERT RESTREPOYCE :04:0 0G.[id number] for patient [id number]:04:42 [facility] 2023-11-27 10:44:00 [id number]:44:00 [facility]Ad[facility] General ConsultationREPORT#:[id number] REPORT STATUS: SignedREPORT INITIALIZATION DATE:11/27/23 TIME: 1044 PATIENT: CHARAN RESTREPO UNIT #: [id number]#: [id number] [address] [birth year] AGE: 53 SEX: M ATTEND: Papo Mayfield MDADM AUTHOR: Marilyn Mayfield MDREPT SERVICE DT/TIME: 11/27/23 1044* ALL edits or amendments must be made on the electronic/computer document * History of Present IllnessReason for consult:medical management Free Text HPI NotesFree Text HPI Notes: 53 years old male with PMH of CAD with 6-7 stents , HTN, DM, [facility] he complaint of cp on and off for a month. pain is like stab pain . it is with sob and dizziness . it radiate the left arm . he hadcath last month . he was referred for CABG as out patient . he had cp yesterday and went back to the hospital in [facility]. he was transferred to our hospital for CABG. no fever no cough no nausea no vomiting no diarrhea no headache no dysuria . History - Adult longitudinalPast medical history:Reports: Coronary artery disease, Diabetes mellitus, Hypertension. Past surgical history:Reports: (Left Tib, Fib). Family history:Reports: Heart disease. 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 ENT:Denies: sore throat. Respiratory:Denies: pneumonia, productive cough (sputum), SOB, wheezing. Cardiovascular:chest pain. Denies: DWYER (dyspnea on exertion), edema, orthopnea, palpitations. GI:Denies: abdominal pain, diarrhea, hematemesis, hematochezia, nausea, vomiting. :Denies: dysuria, flank pain, frequency, hematuria, nocturia. Neuro:dizziness. Denies: focal weakness, headache, seizure. ObjectiveVS/I O:Last Documented: Result Date Time Temp 37.0 11/27 1600 Pulse Ox 95 11/27 1500 B/P 104/51 11/27 1500 B/P Mean 73 11/27 1500 Pulse 75 11/27 1500 Resp 12 11/27 1500 O2 Delivery Room air 11/27 1118 O2 Flow Rate 2 11/27 0900 24 hour I O ending at 0700: 11/27 0700 11/26 1900 Intake Total Output Total Balance Output, Urine PATIENT WEIGHT: Weight (lb): 183Weight (oz): 6.79Weight (kg): 83.200 General appearance: alert, awake, oriented, no acute distressHead/Eyes: atraumatic, normocephalic, normal conjunctiva/sclera, normal eyelids/periorb.Neck: non-tender, no JVDCardiovascular: regular rate rhythm, normal heart soundsRespiratory: aerating well, clear to auscultationAbdomen: soft, non-tender, no reboundExtremities: moves all, no edemaNeuro/DRAWER MAKER: alert, oriented X 3, CNII-XII grossly intact, normal speech, no motordeficits, no sensory deficitsSkin: dry, intact ResultsFindings/Data:Laboratory Tests: 11/27 11/27 11/27 11/27 1120 1046 1041 1041 Chemistry POC Glucose (70 - 110 MG/DL) 248 H Troponin I High Sens (0 - 54 ng/L) 10 Coagulation INR (0.8 - 1.2) 1.1 PTT (Ulises) (25.0 - 39.5 Seconds) 34.3 PT Patient/Control Mix (9.3 - 12.9 SECONDS) 12.7 Plt P2Y12 React Units (182 - 335 PRU) 131 L Hematology WBC (4.5 - 11.0 x10 3/uL) 7.9 RBC (4.00 - 5.60 x10 6/uL) 5.42 Hgb (12.5 - 16.9 g/dL) 15.6 Hct (37.5 - 50.7 %) 45.7 MCV (81.0 - 99.0 fL) 84.3 MCH (27.0 - 33.0 pg) 28.8 MCHC (33.0 - 37.0 g/dL) 34.1 RDW (11.5 - 14.5 %) 13.7 Plt Count (150 - 400 x10 3/uL) 188 MPV (7.0 - 9.0 fL) 10.6 H Neut % (Auto) (56.0 - 77.0 %) 71.5 Lymph % (Auto) (14.0 - 32.0 %) 17.4 Fisher % (Auto) (4.8 - 9.0 %) 7.1 Eos % (Auto) (0.3 - 3.7 %) 2.9 Baso % (Auto) (0.0 - 2.0 %) 0.6 Neut # (Auto) (2.0 - 7.6 x10 3/uL) 5.68 Lymph # (Auto) (1.0 - 3.8 x10 3/uL) 1.38 Fisher # (Auto) (0.1 - 0.8 x10 3/uL) 0.56 Eos # (Auto) (0.0 - 0.2 x10 3/uL) 0.23 H Baso # (Auto) (0.0 - 0.2 x10 3/uL) 0.05 Abs Immat Gran (auto) (0.00 - 0.03 x10 3/uL) 0.04 H Immature Gran % (0.0 - 2.0 %) 0.5 Nucleated RBC % (0 - 0 %) 0.0 Nucleated RBCs # (Man) (0.0 - 0.1 x10 3/uL) 0.00 11/27 11/27 11/27 11/27 0728 0602 0602 0602Chemistry Sodium (134 - 147 mEq/L) 138 Potassium (3.4 - 5.0 mEq/L) 3.9 Chloride (100 - 108 mEq/L) 110 H Carbon Dioxide (21 - 33 mEq/l) 26 Anion Gap (0 - 20) 6 BUN (7 - 25 mg/dL) 11 Creatinine (0.6 - 1.3 mg/dL) 0.8 Glomerular Filtr Rate (90 - 95) 105.2 H Glucose (77 - 141 mg/dL) 137 POC Glucose (70 - 110 MG/DL) 139 H Hemoglobin A1c (4.8 - 6.0 %A1C) 8.8 H Calcium (8.0 - 10.5 mg/dL) 9.1 Total Bilirubin (0.0 - 1.0 mg/dL) 1.00 AST (8 - 34 IUnit/L) 16 ALT (10 - 49 IUnit/L) < 7 L Total Alk Phosphatase (20 - 125 IUnit/L) 66 B-Natriuretic Peptide (0 - 100 PG/ML) 93.0 Total Protein (6.4 - 8.2 g/dL) 6.1 L Albumin (3.4 - 5.0 g/dL) 3.60 Triglycerides (40 - 150 mg/dL) 97 Cholesterol (<200 mg/dL) 123 LDL Cholesterol Measurd (0 - 100 mg/dL) 79.0 HDL Cholesterol (40 - 60 MG/DL) 29.5 L Cholesterol/HDL Ratio (3.43 - 4.97 RATIO) 4.17Coagulation INR (0.8 - 1.2) 1.1 PTT (Irwin) (25.0 - 39.5 Seconds) 32.7 PT Patient/Control Mix (9.3 - 12.9 SECONDS) 12.2Hematology WBC (4.5 - 11.0 x10 3/uL) 8.9 RBC (4.00 - 5.60 x10 6/uL) 5.54 Hgb (12.5 - 16.9 g/dL) 15.9 Hct (37.5 - 50.7 %) 47.3 MCV (81.0 - 99.0 fL) 85.4 MCH (27.0 - 33.0 pg) 28.7 MCHC (33.0 - 37.0 g/dL) 33.6 RDW (11.5 - 14.5 %) 13.7 Plt Count (150 - 400 x10 3/uL) 186 MPV (7.0 - 9.0 fL) 10.4 H Neut % (Auto) (56.0 - 77.0 %) 71.9 Lymph % (Auto) (14.0 - 32.0 %) 16.0 Fisher % (Auto) (4.8 - 9.0 %) 7.3 Eos % (Auto) (0.3 - 3.7 %) 3.3 Baso % (Auto) (0.0 - 2.0 %) 0.9 Neut # (Auto) (2.0 - 7.6 x10 3/uL) 6.36 Lymph # (Auto) (1.0 - 3.8 x10 3/uL) 1.42 Fisher # (Auto) (0.1 - 0.8 x10 3/uL) 0.65 Eos # (Auto) (0.0 - 0.2 x10 3/uL) 0.29 H Baso # (Auto) (0.0 - 0.2 x10 3/uL) 0.08 Abs Immat Gran (auto) (0.00 - 0.03 x10 3/uL) 0.05 H Immature Gran % (0.0 - 2.0 %) 0.6 Nucleated RBC % (0 - 0 %) 0.0 Nucleated RBCs # (Man) (0.0 - 0.1 x10 3/uL) 0.00 Microbiology: Date/Time Procedure - Status Source Growth 11/27 540 MSSA Surveillance Screen - ORD NASAL 11/27 540 MRSA DNA Surveillance Screen - ORD NASAL Recent Impressions:CAT SCAN - CT CHEST W/O CONTRAST 11/27 0943 Report Impression - Status: SIGNED Entered: 11/27/2023 1027 IMPRESSION: 1. Prominent LAD coronary artery calcifications and/or LAD stent. Faint coronary artery calcifications are seen at the right coronaryartery and circumflex coronary artery. There is mild leftventriculomegaly, consistent with CHF, and questionable mural thrombusat the left ventricular apex; echocardiogram correlation should beconsidered. This was discussed by phone with the ordering clinicianROCIO Baird at 10:23 AM on 11/27/2023.2. Subtle diffuse centrilobular groundglass nodules throughout thelungs. This is consistent with an inflammatory process, and couldpotentially be seen with smoking or environmental exposure.3. There are 3 noncalcified nodules, located in the left upper lobe,left lower lobe, and right middle lobe. These measure up to 4 mm. Inthe absence of a known cancer history, if the patient is low risk, nofollow-up is recommended. If the patient is high risk, low dose CTchest follow-up in 12 months is optional based on [facility]. FOR INTERNAL CODING PURPOSES ONLYRESULT CODE: CVRMD One or more of the following dose reduction techniques were used:Automated exposure control, adjustment of the mA and/or kV accordingto patient size, and/or utilization of iterative reconstructiontechnique.DLP: 170 mGy-cm CTDI: 4.5 mGy Impression By: Roni Roper M.D.RADIOLOGY - XR CHEST 1 V 11/27 1455 Report Impression - Status: SIGNED Entered: 11/27/2023 1619 IMPRESSION: Cardiomegaly without pulmonary edema.Impression By: [email or web address] Colleen Brizuela M.D.ULTRASOUND - DUP EXTRACRANIAL BRENDA 11/27 1615 Report Impression - Status: SIGNED Entered: 11/27/2023 1632 IMPRESSION:1. Normal carotid duplex ultrasound.2. Antegrade vertebral artery flow bilaterally. Impression By: Roni Roper M.D. Diagnosis, Assessment PlanOrders: Procedure Date/time Status HGBA1C% 11/28 0500 Active Educate/Teach Patient 11/27 1248 Active Notify MD: Hypoglycemia 11/27 1248 Active NPO/Low Intake Insulin Instr 11/27 1248 Active Hypoglycemia Orders 11/27 1248 Active Educate/Teach Hypoglycemia 11/27 1248 Active Correctional Insulin Instr 11/27 1248 Active Blood Glucose Monitoring 11/27 1248 Active Consultants: cardiology, cardiovascular surgery Free Text DxA P NotesFree Text DxA P Notes: CAD with stents DMHTNHLD tele cardiology consult CV surgeon -- work up for CABG HTN-- BP well control -- continue metoprololDM-- sliding scale -- Hba1c HLD--continue lipitor will follow the patient and manage DM with you during the hospital stay Quality: Gen Med Crit Care Current MedicationsCurrent medication review: Current Medications Sig/Marie Start time Last Medication Dose Route Stop Time Status Admin Atorvastatin Calcium 40 MG BEDTIME 11/27 2100 AC PO 12/26 2059 Insulin Human Lispro 0 AC HS 11/27 1630 AC 11/27 SUBQ 02/24 1629 1625 Mupirocin 1 APPLIC BID 11/27 1400 AC 11/27 NASAL 12/01 2101 1348 Dextrose/Water 125 ML ASDIR PRN 11/27 1300 CKD IV 02/24 1259 Dextrose/Water 250 ML ASDIR PRN 11/27 1300 CKD IV 02/24 1259 Glucagon 1 MG ASDIR PRN 11/27 1300 AC IM 02/24 1259 Heparin Sodium 0 ASDIR PRN 11/27 1015 AC IV 02/24 1014 Heparin Sodium 500 ML ASDIR 11/27 1015 CKD 11/27 (Porcine) IV 02/24 1014 1234 Nicotine 7 MG DAILY 11/27 1015 CKD 11/27 TRANSDERM 02/24 1014 1247 Metoprolol Succinate 25 MG DAILY 11/27 0900 AC 11/27 PO 02/24 0859 0838 Nitroglycerin 0.4 MG Q5M PRN PRN 11/27 0715 AC 11/27 SL 1437 Perflutren Lipid 0 .STK-MED ONE 11/27 0653 DC Microsphere IV Acetaminophen 650 MG Q6H PRN PRN 11/27 0200 AC PO 02/24 0159 Morphine Sulfate 2 MG Q4H PRN PRN 11/27 0200 AC 11/27 IV 12/02 0159 1520 Home Medications:ATORVASTATIN (LIPITOR) 40 MG PO BEDTIME METOPROLOL SUCC XL (TOPROL XL) 25 MG PO DAILY ASPIRIN 81 MG PO DAILY I attest that the foregoing medication list in the medical record is true, accurate, and complete to the best of my knowledge. at 1739 RPT #:[id number] OF REPORTIUQbnehybdlfqy1072-81-82V54:44:00G.PDOC2 [id number] for patient tsojEGNWONRKMQKDQO6397-50-09I06:39:35 [facility] 2023-11-27 08:49:00 [id number]/ET mmQceMNMNcqye2xrISzQ6BnvGx5NE aMcr+Ga7G2bOyC6qnq2h/kDP1mg7453-09-52R07:49:00 [facility] HospitalCardiology ConsultationREPORT#:[id number] REPORT STATUS: SignedREPORT INITIALIZATION DATE:11/27/23 TIME: 0849 PATIENT: CHARAN RESTREPO UNIT #: [id number]#: [id number] [address] [birth year] AGE: 53 SEX: M ATTEND: Papo Mayfield MDADM AUTHOR: Merlene Rutherford MDREPT SERVICE DT/TIME: 11/27/23 0849* ALL edits or amendments must be made on the electronic/computer document * History of Present Illness HPIRequesting Clinician: Dr. Judd for consult:Roberta complaint:CPPCP:PCP: Jesusita sOuna MD HPI:This is a 53-year-old male with PMHx of CAD status post previous PCI in the past, hypertension, diabetes, hyperlipidemia who presented to [facility] with complaints of chest pains.He previously underwent left heart catheterization about 1 month ago and was referred for CABG as outpatient however did not happen yet. The patient reportsback to the hospital with complaints of chest pains radiating to the left arm. History - Adult longitudinalPast medical history:Reports: Coronary artery disease, Diabetes mellitus. Family history:Denies: CAD < 40 yrs old. Smoking status for patients 13 years old or older: Current every day smokerHome medications:Home Medications:ATORVASTATIN (LIPITOR) 40 MG PO BEDTIME METOPROLOL SUCC XL (TOPROL XL) 25 MG PO DAILY ASPIRIN 81 MG PO DAILY Allergies:Coded Allergies:No Known Allergies (03/18/23) Review of SystemsAdditional notes:As per HPI otherwise negative 12 system points Objective GeneralVS/I O:Vital Signs: Date Time Temp Pulse Resp B/P B/P Pulse O2 O2 Flow FiO2 Mean Ox Delivery Rate 11/27 0840 76 16 131/75 93.9 99 11/27 0647 98.1 73 135/79 98.1 97 / 0454 98.1 70 15 153/83 106.5 96 11/27 0027 97.7 65 16 137/80 99 100 24 hour I O ending at 0700: 11/27 0700 11/26 1900 Intake Total Output Total Balance Output, Urine PATIENT WEIGHT: Weight (lb): 183Weight (oz): 6.79Weight (kg): 83.200 Medications:Active Meds + DC'd Last 24 HrsAtorvastatin Calcium (LIPITOR) 40 MG BEDTIME PO Metoprolol Succinate (TOPROL XL) 25 MG DAILY PO Nitroglycerin (NITROSTAT) 0.4 MG Q5M PRN PRN SL Perflutren Lipid Microsphere (Definity) 0 .STK-MED ONE IV (DC) Acetaminophen (TYLENOL) 650 MG Q6H PRN PRN PO Morphine Sulfate (morphine SULFATE) 2 MG Q4H PRN PRN IV Physical ExamGeneral appearance: alert, awake, orientedHead/Eyes: PERRLAENT: normal noseNeck: no JVDCardiovascular: CV assessment: regular rate and rhythm, normal heart soundsRespiratory: clear to auscultation, no distressLower extremity: LE assessment: no edemaNeuro/DRAWER MAKER: alert, oriented X 3, no motor deficitsPsychiatry: normal affect, normal judgment/insight, normal mood ResultsFindings/Data:Laboratory Tests 11/27 11/27 11/27 11/27 0728 0602 0602 0602 Chemistry Sodium (134 - 147 mEq/L) 138 Potassium (3.4 - 5.0 mEq/L) 3.9 Chloride (100 - 108 mEq/L) 110 H Carbon Dioxide (21 - 33 mEq/l) 26 Anion Gap (0 - 20) 6 BUN (7 - 25 mg/dL) 11 Creatinine (0.6 - 1.3 mg/dL) 0.8 Glomerular Filtr Rate (90 - 95) 105.2 H Glucose (77 - 141 mg/dL) 137 POC Glucose (70 - 110 MG/DL) 139 H Hemoglobin A1c (4.8 - 6.0 %A1C) 8.8 H Calcium (8.0 - 10.5 mg/dL) 9.1 Total Bilirubin (0.0 - 1.0 mg/dL) 1.00 AST (8 - 34 IUnit/L) 16 ALT (10 - 49 IUnit/L) < 7 L Total Alk Phosphatase (20 - 125 IUnit/L) 66 B-Natriuretic Peptide (0 - 100 PG/ML) 93.0 Total Protein (6.4 - 8.2 g/dL) 6.1 L Albumin (3.4 - 5.0 g/dL) 3.60 Triglycerides (40 - 150 mg/dL) 97 Cholesterol (<200 mg/dL) 123 LDL Cholesterol Measurd (0 - 100 mg/dL) 79.0 HDL Cholesterol (40 - 60 MG/DL) 29.5 L Cholesterol/HDL Ratio (3.43 - 4.97 RATIO) 4.17 Laboratory Tests 11/27 601 Coagulation INR (0.8 - 1.2) 1.1 PTT (Irwin) (25.0 - 39.5 Seconds) 32.7 PT Patient/Control Mix (9.3 - 12.9 SECONDS) 12.2 Laboratory Tests 11/27 0502 Hematology WBC (4.5 - 11.0 x10 3/uL) 8.9 RBC (4.00 - 5.60 x10 6/uL) 5.54 Hgb (12.5 - 16.9 g/dL) 15.9 Hct (37.5 - 50.7 %) 47.3 MCV (81.0 - 99.0 fL) 85.4 MCH (27.0 - 33.0 pg) 28.7 MCHC (33.0 - 37.0 g/dL) 33.6 RDW (11.5 - 14.5 %) 13.7 Plt Count (150 - 400 x10 3/uL) 186 MPV (7.0 - 9.0 fL) 10.4 H Neut % (Auto) (56.0 - 77.0 %) 71.9 Lymph % (Auto) (14.0 - 32.0 %) 16.0 Fisher % (Auto) (4.8 - 9.0 %) 7.3 Eos % (Auto) (0.3 - 3.7 %) 3.3 Baso % (Auto) (0.0 - 2.0 %) 0.9 Neut # (Auto) (2.0 - 7.6 x10 3/uL) 6.36 Lymph # (Auto) (1.0 - 3.8 x10 3/uL) 1.42 Fisher # (Auto) (0.1 - 0.8 x10 3/uL) 0.65 Eos # (Auto) (0.0 - 0.2 x10 3/uL) 0.29 H Baso # (Auto) (0.0 - 0.2 x10 3/uL) 0.08 Abs Immat Gran (auto) (0.00 - 0.03 x10 3/uL) 0.05 H Immature Gran % (0.0 - 2.0 %) 0.6 Nucleated RBC % (0 - 0 %) 0.0 Nucleated RBCs # (Man) (0.0 - 0.1 x10 3/uL) 0.00 Laboratory Tests 11/27 06 Chemistry B-Natriuretic Peptide (0 - 100 PG/ML) 93.0 Radiology Data:Recent Impressions:CAT SCAN - CT CHEST W/O CONTRAST 11/27 0943 Report Impression - Status: SIGNED Entered: 11/27/2023 1027 IMPRESSION: 1. Prominent LAD coronary artery calcifications and/or LAD stent. Faint coronary artery calcifications are seen at the right coronaryartery and circumflex coronary artery. There is mild leftventriculomegaly, consistent with CHF, and questionable mural thrombusat the left ventricular apex; echocardiogram correlation should beconsidered. This was discussed by phone with the ordering clinicianROCIO Baird at 10:23 AM on 11/27/2023.2. Subtle diffuse centrilobular groundglass nodules throughout thelungs. This is consistent with an inflammatory process, and couldpotentially be seen with smoking or environmental exposure.3. There are 3 noncalcified nodules, located in the left upper lobe,left lower lobe, and right middle lobe. These measure up to 4 mm. Inthe absence of a known cancer history, if the patient is low risk, nofollow-up is recommended. If the patient is high risk, low dose CTchest follow-up in 12 months is optional based on 2017 [facility] criteria. FOR INTERNAL CODING PURPOSES ONLYRESULT CODE: CVRMD One or more of the following dose reduction techniques were used:Automated exposure control, adjustment of the mA and/or kV accordingto patient size, and/or utilization of iterative reconstructiontechnique.DLP: 170 mGy-cm CTDI: 4.5 mGy Impression By: ArleneBC0 - Landen Roper M.D.RADIOLOGY - XR CHEST 1 V 11/27 7955 Report Impression - Status: SIGNED Entered: 11/27/2023 1619 IMPRESSION: Cardiomegaly without pulmonary edema.Impression By: [email or web address] - Sarah Brizuela M.D.ULTRASOUND - DUP EXTRACRANIAL BRENDA 11/27 1615 Report Impression - Status: SIGNED Entered: 11/27/2023 1632 IMPRESSION:1. Normal carotid duplex ultrasound.2. Antegrade vertebral artery flow bilaterally. Impression By: Roni Roper M.D. Diagnosis, Assessment Plan Free Text DxA P NotesFree Text DxA P Notes:1. 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 CP improved with Morphine and NTG, will transfer to CCU, if persist will do Nitro gtt. 2. DMII: per Hospitalist 3. HTN: resume home meds. 4. CHF: LVEF low, apix aneurysmal, no Thrombus with Contrasted ECHO at 2045 RPT #:[id number] OF REPORTFDTqwsxhobtgsm5388-65-77F93:49:00G.PDOC2 0055609-6115JREjpycuknh for patient gbpmFPBBZUUFWIYAGM7570-82-97L24:46:23 [facility] 2023-11-27 08:11:00 [id number]/TmXmEgW wsq5ZZCSGkqqIMgKbk50VueO+sCc9 UUQ87D+OR7HOwBGhJKfqQEdC8yp5365-95-28T76:11:00 [facility] ([facility])History Physical - AdultREPORT#:[id number] REPORT STATUS: SignedREPORT INITIALIZATION DATE:11/27/23 TIME: 810 PATIENT: CHARAN RESTREPO UNIT #: [id number]#: [id number] [address] [birth year] AGE: 53 SEX: M ATTEND: Papo Mayfield MDADM AUTHOR: Dia Baird PhysicREPT SERVICE DT/TIME: 11/27/23 0811* ALL edits or amendments must be made on the electronic/computer document * Dia Baird 11/27/23 0811:History of Present Illness HPIChief complaint:Chest pains, coronary artery diseaseHPI:This is a 53-year-old gentleman with past medical history of coronary artery disease status post previous PCI in the past, hypertension, diabetes, hyperlipidemia who presented to [facility] with complaints of chest pains. He previously underwent left heart catheterization about 1 month ago and was referred for bypass surgery in the outpatient setting however he did not get hisoutpatient appointment yet. The patient reports back to the hospital with complaints of chest pains radiating to the left arm. 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 The patient was seen and examined, reports chest pains 8 out of 10 HistoryPast medical history:Reports: Coronary artery disease, Diabetes mellitus, Hypertension. Past surgical history:Reports: (Left Tib, Fib). Family history:Reports: Heart disease. 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 [employer] Review of Systems Free Text ROS NotesFree Text ROS Notes:Constitutional: Negative for fever, chills, weight loss Skin: Negative for rash, negative for swelling, negative for any laceration HEENT: Denies hearing loss, denies any ear ringing, denies any earache, denies any sore throat Respiratory: Positive for shortness of breathCardiac: Positive for chest painGI: Denies constipation, denies diarrhea : Denies hematuria, denies dysuria, denies flank pain Musculoskeletal: Denies any joint pain, denies any joint swelling, denies any myalgia Hematologic: Denies any easy bruising, denies any bleeding Endocrine: denies any night sweats, denies polyuria OR polydipsia Neurologic: Denies any lightheaded, denies any headache, denies any confusion, denies any dizziness Physical ExamVS/I OVital Signs: Date Time Temp Pulse Resp B/P B/P Pulse O2 O2 Flow FiO2 Mean Ox Delivery Rate 11/27 0647 98.1 73 135/79 98.1 97 11/27 0454 98.1 70 15 153/83 106.5 96 02/ 0027 97.7 65 16 137/80 99 100 24 hour I O ending at 0700: 11/27 0700 11/26 1900 Intake Total Output Total Balance Output, Urine PATIENT WEIGHT: Weight (lb): Weight (oz): Weight (kg): General appearance: alert, awake, orientedENT: moist mucosal membranes, normal dentitionNeck: full range of motion, non-tenderCardiovascular: regular rate rhythmRespiratory: no distress, aerating wellAbdomen/GI: soft, non-tenderExtremities: moves allMusculoskeletal: full range of motion, normal inspection Diagnosis, Assessment Plan Free Text DxA P NotesFree Text DxA P Notes:This is a 53-year-old gentleman with past medical history of coronary artery disease status post previous PCI in the past, hypertension, diabetes, hyperlipidemia who presented to [facility] with complaints of chest pains. He previously underwent left heart catheterization about 1 month ago and was referred for bypass surgery in the outpatient setting however he did not get hisoutpatient appointment yet. The patient reports back to the hospital with complaints of chest pains radiating to the left arm. 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 Patient reports history of chronic pain, Also reports he smokes 1 pack a day for the past 40 years.Denies alcohol Assessment/plan1. Coronary artery disease Workup for CABG2. Chest pain Patient given nitro and morphine. Will transfer the patient to CCU for heparin drip and nitro drip.3. Hypertension4. Hyperlipidemia5. Diabetes The patient reports he took his last Plavix on 11/25/2023 prior to his hospital admission. Will obtain a stat platelet response to Plavix.Obtain cardiac workup stat including carotid Dopplers, CT of the chest etc.Patient was seen and examined Dr. Mayfield. Plan of care discussed with multidisciplinary team. Patient's questions were answered.Further recommendations to followObtain platelet response plavix. Papo Mayfield 12/09/23 1112:Attestations Physician AttestationAgree w/findings plan:I have seen and examined Mr. Restrepo. I agree with the findings and plan as documented by ROCIO Reeder. Briefly, 53-year-old gentleman with severe coronary artery disease. Patient will benefit from surgical revascularization. I had a long discussion with the patient, explained to him the procedure the risk involved, benefit, alternatives, STS risk score calculator, and complications. at 1629 at 1112 RPT #:[id number] OF REPORTHPHistory and physical faacvuvuikc0646-43-37F67:11:00G.BJLF28565236-7257 AVAvailable for patient ayqqDOJVJZUMKYRWKH2564-50-04Q05:30:48 [facility] 2023-03-20 15:29:00 [id number] ifdisW5jaZgxti1udyeVEGD1yTFPv KrEbGRMZtNKrGrfc+7svNffOhYP6610-01-22T73:29:00 [facility] CenterCard[facility] Progress NoteREPORT#:[id number] REPORT STATUS: SignedDATE:03/20/23 TIME: 1529 PATIENT: CHARAN RESTREPO UNIT #: [id number]#: [id number] [facility] AGE: 52 SEX: M ATTEND: Montez Jernigan [facility] AUTHOR: Paco James MD * ALL edits [...] O2 Flow FiO2 Mean Ox Delivery Rate 05/30 1018 88 16 132/87 102.1 97 03/20 [...] months for possible AICD at 1532 RPT #:[id number] OF REPORTPRProgress xdrq2175-79-44U51:29:00Z.EIUU17712796-1050TOJqrtm able for patient ukkjDLWVLVLDGJFEGM3263-54-39T17:32:26 [facility] 2023-03-20 08:44:00 [id number]/Ts2M qQxpjOgkWW8P1tPqMAwQiv+ienKXM scYU/RAPehkI1y5ld2jIMjpNZpn8323-63-44K56:44:33221 0-0054 [place] [address] PATIENT NAME: CHARAN RESTREPO ADMIT DATE: 03/18/23ACCOUNT NO: [id number] ROOM NO: Z.503 AGE: 52 REPORT TYPE: ELECTROCARDIOGRAM SEX: M ADMITTING PHYSICIAN:Montez Jernigan MD ATTENDING PHYSICIAN:Montez Jernigan MD Order:[id number] Reason : CAD/MO/VT Test Date/Time Stamp:SunMar 20 2023 08:44:19Blood Pressure [...] inverted T waves in Lateral leadsConfirmed by SABINO SCHILLING ([id number]) on 03/20/2023 5:50:59 PM Referred By: Self Referred Confirmed by:SABINO SCHILLING at 1750 PATIENT NAME: CHARAN RESTREPO .[id number] AVAvailable for patient hxnyJROSDVCLTESKVD1135-32-70K94:51:36 [facility] 2023-03-20 08:41:00 [id number] HlQgIl3yngdTNM6q2APKZ5EpEnm47 U0liQjkMjDLFjQ6dW8FT5OUTWo92588-87-62Q59:41:00 [facility] ([facility])Hospitalist Discharge SummaryREPORT#:[id number] REPORT STATUS: SignedDATE:03/20/23 TIME: 840 PATIENT: CHARAN RESTREPO UNIT #: [id number]#: [id number] [facility] [birth year] AGE: 52 SEX: M ATTEND: Montez Jernigan [facility] AUTHOR: Davi Davison MD, MPH R2 * [...] s/p 2 stents, HFpEF borderline presented to [facility] chest pain. On 03/18 he had chest pain/dizziness, brief syncopal episode. He was brought to [facility] and was found to be in [facility] where he was given amiodarone and synchronized [...] of motionMusculoskeletal: normal inspection, painless range of motionNeuro/DRAWER MAKER: alert, oriented X 3, CNII-XII intact, normal [...] to: Home/Self CareAdditional Discharge Routines: PCP Follow-Up, Paragliding Instructor Follow-UpDiet: Resume Home Diet/FeedsActivity: Resume Normal Activity [...] He has asked for 1 week of [place], stating that he missed his pain management appointment on 03/19 however after reviewing his prescriptions on the PDMP he filled a prescription for 56 tablets (28 day prescription) on 02/26 and should not run out of medication until 03/26/23, so no further norco will be written at this time. He will follow up with PCP and cardiology as instructed. at 1016 at 1638 [facility] #:[id number] OF REPORTDSDischarge qcafjde1396-88-44V50:41:00Z.SOZF05389612-4585ASVf ailable for patient moyyDJGZQUAAZPIRYM7888-88-55C71:17:22 [facility] 2023-03-19 14:01:00 [id number]+TWN5Lfv wXRkPTWdu5e4i1Sj4Ec/IALaZRIrn bdJNq8K+1PK2KZkd9E6ooszriVi3369-74-11G68:01:00THI S REPORT HAS BEEN APPENDED [phone] [place] [address] PATIENT NAME: CHARAN RESTREPO ADMIT DATE: 03/18/23ACCOUNT NO: [id number] ROOM NO: [facility] AGE: 52 REPORT TYPE: ECHOCARDIOGRAM SEX: M ADMITTING PHYSICIAN:Montez Jernigan MD ATTENDING PHYSICIAN:Montez Jernigan MD *[place], [place] [address]Phone Transthoracic Echocardiogram Patient: Royce Restrepotudy Date: 03/19/2023 BP: 134 / 73 Location: COCWUU: [id number] : 1970 Age: 52 Height: 70 in / 177.8 cmAccession#: [id number] Gender: M Weight: 199.6 lb / 90.7 kgBMI/BSA: 28.7 kg/m 2 / 2.14 m 2 *Ordering Physician: * Sabino Schilling MD *Interpreting Physician: * Paco James MD*Content Management Specialist: * Gabby Crockett Indications: CAD / MO. Study data: Transthoracic echocardiogram. Procedure: Transthoracicechocardiography was performed. Images were obtained using a Atrenta cardiacultrasound machine. Image quality was adequate. M-mode, [...] SECTION 2 ADDENDUM 1: 03/20/23 0752 GCD.CPS *[facility]*[address] [place], [place] [address]Djkwi Transthoracic Echocardiogram (Report amended 8654-94-82A83:52:29) Patient: Ray Restrepo Date: 03/19/2023 BP: 134 / 73 [id number] 1970 Age: 52 Height: 70 in / 177.8 cmAccession#: [id number] Gender: M Weight: 199.6 lb / 90.7 kgBMI/BSA: 28.7 kg/m 2 / 2.14 m 2 *Ordering Physician: * Sabino Schilling MD *Interpreting Physician: * Sabino Schilling MD*Content Management Specialist: Gabby Salamanca Indications: CAD / MO. Study data: Transthoracic echocardiogram. Procedure: Transthoracicechocardiography was performed. Images were obtained using a Atrenta cardiacultrasound machine. Image quality was adequate. M-mode, [...] of the apex.Recommendations: continue hf mgmt. Amended Sabino Schilling MD03/20/2023 07:52 PATIENT NAME: CHARAN RESTREPO :01:0 0Z.[id number] for patient ngxwOPZKZPSDCBOGLD2064-15-49V50:02:20 [facility] 2023-03-19 12:44:00 [id number] nY952e5YgILEnAPvLgpI/1I+jl9DR AhXA3Okf4wKqsWUvqLS/fLSbUf42945-82-05Y29:44:00 [facility] ([facility] SYSTEMCardiology Progress NoteREPORT#:[id number] REPORT STATUS: SignedDATE:03/19/23 TIME: 1244 PATIENT: CHARAN RESTREPO UNIT #: [id number]#: [id number] [facility] AGE: 52 SEX: M ATTEND: Montez Jernigan [facility] AUTHOR: Paco James MD * ALL edits [...] 05 0533 71 14 126/68 91 90 03/19 0530 73 15 90 03/19 0515 76 16 89 03/19 0503 81 17 118/66 86 90 03/19 0500 76 18 91 03/19 0445 82 25 90 03/19 0437 94 39 127/71 92 95 05/29 [...] 2014 79 22 96 05/28 1999 36.4 03/18 2000 81 21 147/85 110 [...] separate fromany billable procedures. at 1248 RPT #:[id number] OF REPORTPRProgress yjuh7287-00-82G77:44:00Z.XKDW41108994-1448JGXvkyz able for patient hhiwQBHCCUNEAVAOCH9028-86-62D83:48:38 [facility] 20[facility] 09:27:00 [id number] 9FuN3/c/KUmsp7T18qNHFk1fc1OZr HgsUp9CP/hFLQfGM0vsiX5cRklO6859-02-68J86:27:00 [facility] ([facility])Critical Care Progress NoteREPORT#:[id number] REPORT STATUS: SignedDATE:03/19/23 TIME: 926 PATIENT: CHARAN RESTREPO UNIT #: [id number]#: [id number] [facility] [birth year] AGE: 52 SEX: M ATTEND: Montez Jernigan [facility] AUTHOR: Suzette Wang RESIDENTIAL CHILD CARE COUNSELOR * ALL edits or amendments must be [...] no hematoma Musculoskeletal normal inspection, no muscle spasmNeuro/DRAWER MAKER: alert, oriented X 3, no sensory deficitsPsychiatry: normal affect ResultsFindings/data:Laboratory Tests 03/19 03/19 03/18 03/18 03/18 0326 0325 9417 5472 2022 Chemistry Sodium (137 - 145 MMOL/L) [...] (Auto) (14 - 44 %) 8.0 L Fisher % (Auto) (4 - 13 %) 5.3 Eos % (Auto) (0 - 6 %) 0.8 Baso % (Auto) (0 - 2 %) 0.5 Neut # (Auto) (2.0 - 7.6 K/mm3) 13.48 H 11.29 H Lymph # (Auto) (1.0 - 3.8 K/mm3) 1.28 2.18 Fisher # (Auto) (0.1 - 0.8 K/mm3) 0.84 [...] pH (5.0 - 9.0) 5.0 Ur Specific [place] (1.003 - 1.030) 1.020 Urine Protein (NEGATIVE MG/DL) NEGATIVE Urine Glucose (UA) (NORMAL MG/DL) 1000 H Urine Ketones (NEGATIVE MG/DL) 5 Urine Blood (NEGATIVE Oneal/mm3) NEGATIVE Urine Nitrite (NEGATIVE) NEGATIVE Urine Bilirubin (NEGATIVE MG/DL) NEGATIVE Urine Urobilinogen (NORMAL MG/DL) NORMAL Ur Leukocyte Esterase (NEGATIVE /mm3) NEGATIVE Laboratory Tests 03/19/23 0326:[Embedded Image Not Available] 03/19/23 0325:[Embedded Image Not Available] 03/18/23 1741:[Embedded Image Not Available]Microbiology:03/18 1812 NASAL: MRSA Screen - COMP Radiology dataRecent [...] multiple stents, systolic heart failure transferred from [facility] [...] arrythmias DiabetesUncontrolled. Takes metformin and jardiance. 9.3 T7GKusoxor 200s, start lantus. Patietn educated on diabetes and need for insulin atthis pointWill consult asset liability analyst for DM education Tobacco AbuseSmokes 2 PPDCounseled [...] if needed at 1004 at 1306 RPT #:[id number] OF REPORTPRProgress olhd1094-43-61M06:27:00Z.HGRM85292665-6540UKYregw able for patient pnhnDMDMPULWNDETOD9076-73-18R54:04:53 [facility] 2023-03-19 07:39:00 [id number] tqakg0rBTEIKdFENGJ142IEoLIWHB SQIjitbCbEkNvzssu/XYkzrQ8A86329-55-84R34:39:00 [facility] ([facility])Hospitalist Progress NoteREPORT#:[id number] REPORT STATUS: SignedDATE:03/19/23 TIME: 0739 PATIENT: CHARAN RESTREPO UNIT #: [id number]#: [id number] [facility]20-[facility]DMQ[facility] [birth year] AGE: 52 SEX: M ATTEND: Montez Jernigan [facility] AUTHOR: Davi Davison MD, MPH R2 * ALL edits or amendments must be made on the electronic/computer document * Davi Davison 03/19/23 0739:SubjectiveChief complaint:CHEST PAINHPI:52 y/o M PMH DM2, HLD, CAD s/p 2 stents, HFpEF borderline, tobacco use, arthritis presented to [facility] for chest pain.NAEO. No arrhythmias overnight. Today [...] 03/19 0533 71 14 126/68 91 90 05/29 [...] 05/28 2050 79 17 137/81 104 91 03/185 87 [...] of motionMusculoskeletal: normal inspection, painless range of motionNeuro/DRAWER MAKER: alert, oriented X 3, CNII-XII intact, normal [...] s/p 2 stents, HFpEF borderline presented to [facility] chest pain. STEMI (ST elevation myocardial infarction) : Hypertension : HLD : CAD : HF : Hx stent03/18 AM - chest pain/dizziness, found to be in vtach at [facility]. Placed on amiodarone drip, given sync cardioversion which resolved issue. Transferred here per Dr. Schilling, found to have V1/V2 ST elevation, taken [facility] w/ Dr. James - 4x stent placed. EF 20%.03/19 - titrating off nitro drip, restarting PO rx per cardiologyPlan:Cardio management per Dr. Mock: Nitro drip - titrate off today Restart B luís? - per cardiology ASA 81, ticagrelor 90 BID Atorvastatin 40 Morphine 4 IV q6 PRN - per Dr. Alvarez Home rx (deferred): Entresto 24-26 BID Bisoprolol/HCTZ 02/24.25 HC7Dykvjsz A1c, is on jardiance unknown dose at homeSupposedly took metformin which "didn't work" in the wcpgF2o 9.3MDSS from LDSS today Tobacco hx : Yfbzyoic19+ pack-year smoking hxMild expiratory wheezing, possible COPD [...] nitroglycerine drip still which is being weaned. Television Repairman and cardiology are on board and weappreciate their recommendations and care. at 0743 at 1246 RPT #:[id number] OF REPORTPRProgress yozy9753-67-80Q40:39:00Z.MQMX36997748-0960VJYplgd able for patient qeqpCZSQXCBKKNDBLC0838-57-37A66:44:10 [facility] 2023-03-19 05:44:00 [id number] lOG14y7zWYY3KyJgFJQCD2lUPxFRa pHqvxD8cHMbXYalZW5ifXmzlhZ13308-15-66Q73:44:09450 9-0005 [place] [address] PATIENT NAME: CHARAN RESTREPO ADMIT DATE: 03/18/23ACCOUNT NO: [id number] ROOM NO: Z.I13 AGE: 52 REPORT TYPE: ELECTROCARDIOGRAM SEX: M ADMITTING PHYSICIAN:Montez Jernigan MD ATTENDING PHYSICIAN:Montez Jernigan MD Order:[id number] Reason : CAD/MO Test Date/Time Stamp:SunMar 19 2023 05:44:06Blood Pressure [...] inversion more evident in Lateral leadsConfirmed by SABINO SCHILLING ([id number]) on 03/19/2023 10:39:25 AM Referred By: Self Referred Confirmed by:SABINO SCHILLING at 1039 PATIENT NAME: CHARAN RESTREPO .[id number] AVAvailable for patient xhueATDKLKJWRXQRVQ6330-51-00M33:39:45 [facility] 2023-03-19 05:44:00 [id number] y5NqWpwigSKHfblHrueMGJp+dWLXb HU86iJNShw8QOWhe2goL7KzvkaT6909-00-38T46:44:55175 0-0053 [place] [id number] PATIENT NAME: CHARAN RESTREPO ADMIT DATE: 03/18/23ACCOUNT NO: [id number] ROOM NO: [facility] AGE: 52 REPORT TYPE: ELECTROCARDIOGRAM SEX: M ADMITTING PHYSICIAN:Montez Jernigan MD ATTENDING PHYSICIAN:Montez Jernigan MD Order:[id number] Reason : CAD/MO Test Date/Time Stamp:SunMar 19 2023 05:44:06Blood Pressure [...] inversion more evident in Lateral leadsConfirmed by SABINO SCHILLING ([id number]) on 03/20/2023 5:50:22 PM Referred By: Self Referred Confirmed by:SABINO SCHILLING at 1750 PATIENT NAME: CHARAN RESTREPO .[id number] AVAvailable for patient oliuVFNSZHHAVGQUDQ7293-06-00U06:50:56 [facility] 2023-03-18 17:45:00 [id number]+XBV/y Ac3mYtp2C3+3IbK5QiDBdkSMtn0aH 0Vazl9rj9nLTFd03LP1KzfxzHpw0808-59-05S79:45:00 [facility] ([facility])Critical Care Consult NoteREPORT#:[id number] REPORT STATUS: SignedDATE:03/18/23 TIME: 1744 PATIENT: CHARAN RESTREPO UNIT #: [id number]#: [id number] [facility] AGE: 52 SEX: M ATTEND: Jesusita Osuna AUTHOR: Suzette Wang RESIDENTIAL CHILD CARE COUNSELOR * ALL edits or amendments must be [...] EKG showed STEMI. Transferred emergently to our terrazzo laborer via life flight. Dr James was [...] encouraged to have debrillator placed by his blacktop paver operator. Unable to recall names of home medications. 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 STEMI: Coronary Artery Disease Presented with chest pain in ventricular tachycardia s/p cardioversion. Repeat EKG showed STEMIArrived via life flight straight to terrazzo laborer. Dr James placed 4 stents to LADAspirin, Statin, Brilinta. Entertainment Agent would like to start beta luís tomorrowNitroglycerin [...] the patient. at 1808 at 1834 RPT #:[id number] OF REPORTVVOvilnonjmpjo8933-84-81N84:45:00Z.PDOC2 [id number] for patient ovmjAXEFOASNCUSZXR8178-34-75Y09:08:44 [facility] 2023-03-18 17:40:00 [id number] 4MLDcWGMDFYAg4UgfdhT5gxnf9Ns1 xl8fBceRScFdd7R7VEkGh8lusde0764-79-19E65:40:31467 8-0019 [place] [address] PATIENT NAME: CHARAN RESTREPO ADMIT DATE: 03/18/23ACCOUNT NO: [id number] ROOM NO: Z.3 AGE: 52 REPORT TYPE: ELECTROCARDIOGRAM SEX: M ADMITTING PHYSICIAN:Jesusita Osuna MD ATTENDING PHYSICIAN:Jesusita Osuna MD Order:[id number] Reason : VT Test Date/Time Stamp:SunMar 18 [...] age undeterminedAbnormal ECGNo previous ECGs availableConfirmed by SABINO SCHILLING ([id number]) on 03/18/2023 8:02:58 PM Referred By: Self Referred Confirmed by:SABINO SCHILLING at 2002 PATIENT NAME: CHARAN RESTREPO .[id number] AVAvailable for patient xkncBKAAGVPLQPRTKG5315-60-46M71:03:30 [facility] 2023-03-18 17:40:00 [id number] KnHLy+m4xCvjbXBkMj5pkF742FrBw rUJr1qDYs/oJZCF3WZfVWqIOzuH6327-63-06R41:40:43088 0-0052 [place] [address] PATIENT NAME: CHARAN RESTREPO ADMIT DATE: 03/18/23ACCOUNT NO: [id number] ROOM NO: Z.503 AGE: 52 REPORT TYPE: ELECTROCARDIOGRAM SEX: M ADMITTING PHYSICIAN:Montez Jernigan MD ATTENDING PHYSICIAN:Montez Jernigan MD Order:[id number] Reason : VT Test Date/Time Stamp:SunMar 18 [...] age undeterminedAbnormal ECGNo previous ECGs availableConfirmed by SABINO SCHILLING ([id number]) on 03/20/2023 5:50:07 PM Referred By: Self Referred Confirmed by:SABINO SCHILLING at 1750 PATIENT NAME: CHARAN RESTREPO .[id number] AVAvailable for patient qzunUYYPVXIOFGZNTY2966-09-90L05:50:36 [facility] 2023-03-18 17:25:00 [id number] dzMCqXN7E7wqqkZ/+lVW8ahcUuBWr 9GYPdNUPsoMne8LHAT3Pb0xO0iR4302-81-28P94:25:00 [facility] ([facility])Hospitalist History PhysicalREPORT#:[id number] REPORT STATUS: SignedDATE:03/18/23 TIME: 1724 PATIENT: CHARAN RESTREPO UNIT #: [id number]#: [id number] [facility] AGE: 52 SEX: M ATTEND: Montez Jernigan [facility] AUTHOR: Davi Davison MD, MPH R2 * ALL edits or amendments must be made on the electronic/computer document * Davi Davison 03/18/231724:History of Present Illness HPIChief complaint:CHEST PAINPCP:PCP: Jesusita Osuna MD HPI:52 y/o M PMH DM2, HLD, CAD s/p 2 stents, HFpEF borderline, tobacco use, arthritis presented to [facility] for chest pain.Started feeling lightheaded, having chest [...] w/ STEMI. He was emergently taken for [facility] w/ Dr. James.C notable for multiple obstructions/near [...] cough (sputum), SOB, wheezing. Cardiovascular:Denies: chest pain, DWYRE (dyspnea on exertion), edema, orthopnea, palpitations. GI:Denies: [...] of motionMusculoskeletal: normal inspection, painless range of motionNeuro/DRAWER MAKER: alert, oriented X 3, CNII-XII intact, normal [...] s/p 2 stents, HFpEF borderline presented to [facility] chest pain. STEMI (ST elevation myocardial infarction) : Hypertension : HLD : CAD : HF : Hx stent03/18 AM - chest pain/dizziness, found to be in vtach at [facility]. Placed on amiodarone drip, given sync cardioversion which resolved issue. Transferred here per Dr. Schilling, found to have V1/V2 ST elevation[facility] 4x stent placed. EF 20%.Per Dr. James - continue nitro drip. Defer restart home BP rx Given tirofiban in [facility], ASA, ticagrelor Avoid heparin products at this timePlan:Cardio management per Dr. Mock: Nitro drip ASA 81, ticagrelor 90 BID Atorvastatin 40 Morphine 2 IV q6 - consider d/c after 03/20 or Home rx (deferred): Entresto 24-26 BID Bisoprolol/HCTZ 6.25 JQ8Icxegdo A1c, is on jardiance unknown dose at ezegU5w pending, LDSS Tobacco hx : Ikfpjchj04+ pack-year smoking hxMild expiratory wheezing, possible COPD [...] knowledge. Jesusita Osuna 03/18/23 1851:Attestations Teaching Physician Xabgfcxccgw6uz visit w/ resident:I was present with the resident during the history and exam. I discussed the case with the resident and . . . agree with the findings and plan as documented in the resident's note. agree with the findings and plan as documented in the resident's note EXCEPT: at 1819 at 1506 RPT #:[id number] OF REPORTHPHistory and physical wvzsjprtjce1408-23-49Z75:25:00Z.[id number] AVAvailable for patient xaieUYADIMJSTVHNJQ4808-12-48L86:20:05 [facility] 2023-03-18 17:24:00 [id number]/zY8 tQfvXEr3GToIUCnKpH91Rppops5M3 THu5oylpwtwTvRGjLDczJVOyAwP1893-30-79Z37:24:45465 8-0023 [place] [address] PATIENT NAME: CHARAN RESTREPO ADMIT DATE: 03/18/23ACCOUNT NO: [id number] ROOM NO: Z.503 AGE: 52 REPORT TYPE: [...] of the LAD, who [place] [facility] [place]. He then had VT had to be shocked and had ST elevations in V1, V2, V3. He was life-flighted to [facility] where we emergently brought into the terrazzo laborer. SEDATION USED: Moderate sedation. NEWS LIBRARY DIRECTOR: Paco James MD PROCEDURAL DETAILS: The patient was brought to the terrazzo laborer in an emergent fashion. He was draped in typical sterile fashion. I obtained right femoral arterial access under ultrasound guidance and inserted a 6-Belarusian sheath using amicropuncture kit. At this point, [...] heparin intra-arterial. I took a EBU 4 6-Belarusian guide up to the aortic root over [...] I then selected a 2.75 x 15 [place] La Follette stent and positioned in the distal LAD overlapping with the old stents and deployed it to PATIENT NAME: CHARAN RESTREPO nominal pressure. I then pulled the stent delivery balloon back and expanded it. I then reinflated the balloon to high pressure. I then removed that stent delivery system and brought up to 3.5 x 22 mm La Follette stent and positioned in the proximal LAD [...] we positioned a 2.75 x 12 mm [place] La Follette stent in the mid LAD and deployed [...] then positioned a2.25 x 15 mm Valerio La Follette stent distally and deployed it to slightly [...] 12 mm and 2.25 x 15 mm La Follette stent, there was 0% stenosis in ARELY 3 flow and no evidence of wire perforation or guide dissection. ESTIMATED BLOOD LOSS: There was 20 mL of blood loss. PATIENT NAME: CHARAN RESTREPO COMPLICATIONS: No complications. RECOMMENDATIONS: Recommend 4-hour of bed rest. Continue aspirin and uvmfxgfwul25 mg b.i.d. Wean nitro drip tomorrow. Would hold off on diuretics until tomorrow unless the patient starts shortness of breath, in which case I would give IV Lasix and hold off on beta luís until tomorrow. Dictated By: Paco James MD Date Dictated: 03/18/2023 17:24:48Date Transcribed: 03/18/2023 22:18:00SYED/Yadira #: [id number] ID: [id number] by Paco James MD On 03/20/2023 04:12:22 PM at 0412 PATIENT NAME: CHARAN RESTREPO rqnu5924-57-40H18:18:00Z.NTU78249730-2432IYBlufza ble for patient ilwqTTTOQJQAZSGEXR4196-87-44Y48:13:05 [facility] 2023-03-18 15:02:00 [id number] YbHR6akVGI5seJxi72Fa3VO9hcKq3 RTVX49B28uaeqMt9G9uHXuywMUv9848-50-05R55:02:00 [facility] CenterCardiology ConsultationREPORT#:[id number] REPORT STATUS: SignedDATE:03/18/23 TIME: 1502 PATIENT: CHARAN RESTREPO UNIT #: [id number]#: [id number] [facility]FO[facility] AGE: 52 SEX: M ATTEND: Jesusita Osuna [facility] AUTHOR: Paco James MD * ALL edits [...] separate fromany billable procedures. at 1810 RPT #:[id number] OF REPORTPQLbepriqfrsvl4209-89-94P33:02:00Z.PDOC2 [id number] for patient hfdvETXTEPBSVQGOVL6051-01-13L32:03:47 HCA[facility]U
[2023-12-27 08:54] LABS: Absolute Basophils 0.1 K/uL (0-0.5); Absolute Lymphocytes (CBC) 1.4 K/uL (0.7-4.9); Basophils % 1.3 % (0-1.3); Hematocrit 48.6 % (39.6-49.0); Lymphocytes % 14.5 % (15.3-44.8); MCV 85.4 fL (80-100); MPV 8.5 fL (7.6-11.3); Platelets 205 thou/uL (152-406); RBC Red Blood Cell Count 5.68 M/uL (4.33-5.43)
--- NOTE | 2023-12-27 08:57 | RAD REPORT ---
EXAM DESCRIPTION: Du Single View12/27/2023 8:44 am CLINICAL HISTORY: Chest pain COMPARISON: November 2023 FINDINGS: The lungs appear clear of acute infiltrate. The heart is borderline enlarged IMPRESSION: No acute abnormalities displayed
[2023-12-27 09:13] LABS: Anion Gap 7.9 mEq/L (5.0-15.0); Potassium 3.9 mEq/L (3.5-5.1); Troponin High Sensitivity 15.1 pg/mL (<58.9)
--- NOTE | 2023-12-27 09:36 | ER ---
Nurse's Notes [facility] Name: Charan Restrepo Jr Age: 53 yrs Sex: Male : 1970 Arrival Date: 12/27/2023 Time: 07:54 Bed 2 Private MD: Diagnosis: Ventricular tachycardia;Chest pain, unspecified;Atherosclerotic heart disease of [place] coronary artery with unstable angina pectoris Presentation: 12/26 07:53 Chief complaint: Chief complaint: Patient states: "I was supposed to have a heart aa5 bypass but they couldn't do it because I they found a blood clot in my heart so they put me on Eliquis". Pt reports he is currently wearing an external defibrillator and it alerted him twice since midnight, denies being shocked. Pt states "I always have a little bit of chest pain but it got worse today". 07:53 Acuity: MARTY 2 aa5 07:53 Coronavirus screen: At this time, the client does not indicate any symptoms associated aa5 with coronavirus-19. 07:53 Ebola Screen: Patient denies travel to an Ebola-affected area in the 21 days before aa5 illness onset. Initial Sepsis Screen: Does the patient meet any 2 criteria? No. Patient's initial sepsis screen is negative. Does the patient have a suspected source of infection? No. Patient's initial sepsis screen is negative. Risk Assessment: Do you want to hurt yourself or someone else? Patient reports no desire to harm self or others. Onset of symptoms was December 27, 2023. 07:56 Method Of Arrival: Ambulatory aa5 Historical: - Allergies: 08:00 No Known Allergies; aa5 - Home Meds: 08:00 Nitroglycerin SL [Active]; metoprolol tartrate 25 mg Oral tablet 2 times per day aa5 [Active]; Eliquis 5 mg oral tablet 2 times per day [Active]; atorvastatin 40 mg oral tablet once [Active]; isosorbide mononitrate 30 mg Oral Tablet, Extended Release 24 hr once [Active]; - PMHx: 08:00 diabetes mellitus; Hyperlipidemia; Hypertension; Myocardial infarction; aa5 - PSHx: 08:00 6 heart stents; bone graft; Cholecystectomy; aa5 Screenin:00 [facility] ED Fall Risk Assessment (Adult) History of falling in the last 3 months, kc6 including since admission No falls in past 3 months (0 pts) Confusion or Disorientation No (0 pts) Intoxicated or Sedated No (0 pts) Impaired Gait No (0 pts) Mobility Assist Device Used No (0 pt) Altered Elimination No (0 pt) Score/Fall Risk Level 0 - 2 = Low Risk. Abuse screen: Denies threats or abuse. Denies injuries from another. Nutritional screening: No deficits noted. Tuberculosis screening: No symptoms or risk factors identified. Assessment: 09:02 General: Appears in no apparent distress. uncomfortable, well groomed, well developed, kc6 Behavior is calm, cooperative, appropriate for age. Pain: Complains of pain in chest Pain does not radiate. Pain began 1 day ago. Neuro: Level of Consciousness is awake, alert, obeys commands, Oriented to person, place, time, situation, Appropriate for age. Cardiovascular: Reports chest pain, Heart tones S1 S2 present Capillary refill < 3 seconds Rhythm is sinus rhythm. Respiratory: Reports shortness of breath on exertion Airway is patent Trachea midline Respiratory effort is even, unlabored, Respiratory pattern is regular, symmetrical. GI: No signs and/or symptoms were reported involving the gastrointestinal system. : No signs and/or symptoms were reported regarding the genitourinary system. EENT: No signs and/or symptoms were reported regarding the EENT system. Derm: No signs and/or symptoms reported regarding the dermatologic system. Skin is intact, is healthy with good turgor, Skin is pink, warm \\T\\ dry. Musculoskeletal: No signs and/or symptoms reported regarding the musculoskeletal system. Circulation, motion, and sensation intact. Capillary refill < 3 seconds, Range of motion: intact in all extremities. 09:25 Reassessment: pt appears to be in ventricular tachycardia at 217bpm. pt is awake, kc6 a\\T\\ox4. Dr. Lewis and charge nurse notified. pt converted back to NSR via his external defibrillator. pt placed on pads and amio drip started per Dr. Lewis. 10:02 Reassessment: Patient appears in no apparent distress at this time. No changes from kc6 previously documented assessment. Patient and/or family updated on plan of care and expected duration. Pain level reassessed. Patient is alert, oriented x 3, equal unlabored respirations, skin warm/dry/pink. 10:52 Reassessment: Patient appears in no apparent distress at this time. No changes from kc6 previously documented assessment. Patient and/or family updated on plan of care and expected duration. Pain level reassessed. Patient is alert, oriented x 3, equal unlabored respirations, skin warm/dry/pink. Vital Signs: 08:09 BP 138 / 89 RA Sitting (auto/reg); Pulse 80 MON; Resp 20 S; Temp 97.1(O); Pulse Ox 99% jg11 on R/A; 09:03 BP 147 / 87; Pulse 70; Resp 16 S; Pulse Ox 97% on R/A; kc6 09:37 BP 150 / 92; Pulse 68; Resp 16 S; Pulse Ox 100% on R/A; kc6 09:42 Weight 83.91 kg; Height 5 ft. 10 in. ; kc6 10:52 BP 134 / 80; Pulse 67; Resp 18 S; Pulse Ox 100% on R/A; kc6 09:42 Body Mass Index 26.54 (83.91 kg, 177.8 cm) kc6 Vitals: 09:25 Cardiac Rhythm Assessment V tach. kc6 10:52 Cardiac Rhythm Assessment Sinus rhythm. kc6 ED Course: 07:56 Patient arrived in ED. im 07:56 Arm band placed on Patient placed in an exam room, on a stretcher. aa5 08:00 EKG completed in triage. Results shown to MD. aa5 08:10 Jerrell Lewis MD is Attending Physician. ec2 08:10 EKG done, by ED staff. jg11 08:12 Triage completed. aa5 08:45 XRAY Chest (1 view) In Process Unspecified. EDMS 09:00 Inserted saline lock: 22 gauge in right wrist, using aseptic technique. Blood kc6 collected. Patient maintains SpO2 saturation greater than 95% on room air. 09:02 Unique Mccartney, RN is Primary Nurse. kc6 09:02 Patient has correct armband on for positive identification. Bed in low position. Call kc6 light in reach. Side rails up X 1. Client placed on continuous cardiac and pulse oximetry monitoring. NIBP monitoring applied. vehicle monitor technician on. 09:36 initiated a transfer with Lisa from the [facility] transfer Center at the request of the patient/ he gets his care at [facility]. 09:52 connected the center sales and service associate merchandiser seasonal for [facility] Bon with Dr. Lewis for patient eb transfer consultation. 09:53 administrative approval given by Margaret Guzman Rn/ patient has been accepted to [facility] ED/ Dr. Katherine May has accepted the patient in transfer without conference with Dr. Lewis/ report to be called to [phone]. 10:14 Inserted saline lock: 20 gauge in left forearm, using aseptic technique. kc6 10:16 [facility] called for transport. eb 10:53 No provider procedures requiring assistance completed. Patient transferred, IV remains kc6 in place. Administered Medications: 09:00 Drug: morphine IVP or IV 4 mg IVP once over 4 mins Route: IVP; Infused Over: 4 mins; 6 Site: right wrist; 09:37 Follow up: Response: No adverse reaction; Pain is decreased; RASS: Alert and Calm (0) kc6 09:30 Drug: amiodarone IVPB 150 mg 100 ml IVPB once over 10 mins; (mix in D5W) Volume: 100 kc6 ml; Route: IVPB; Infused Over: 10 mins; Site: right wrist; 10:14 Follow up: Response: No adverse reaction; IV Status: Completed infusion kc6 10:14 Drug: amiodarone IVPB 900 mg, D5W IV 500 ml IVPB at 1 mg/min continuous; for 6 hrs, kc6 then change to 0.5 mg/min Route: IVPB; Rate: 1 mg/min; Site: left forearm; 10:54 Follow up: Response: No adverse reaction; IV Status: Infusion continued upon transfer kc6 10:30 Drug: [place] PO 10 mg-325 mg 1 tabs PO once Route: PO; kc6 10:54 Follow up: Response: No adverse reaction kc6 Medication: 10:54 VIS not applicable for this client. kc6 Outcome: 09:35 ER care complete, transfer ordered by . ec2 10:53 Transferred by ground EMS Transfer form completed. Note: [place] [id number] 10:53 Condition: stable 10:53 Instructed on the need for transfer, 10:54 Patient left the ED. kc6 Signatures: Dispatcher [employer] Estrellita Berger RN RN aa5 Jodie Kirkpatrick Kaitlyn, RN RN kc6 NicholsBreanna kennedy Edwin, MD MD ec2 Bong Sotomayor jg11 Corrections: (The following items were deleted from the chart) 08:09 07:53 EKG completed in triage. Results shown to MD. aa5 aa5 08:09 08:00 PMHx: heart attack; aa5 aa5 08:12 07:56 Chief complaint: aa5 aa5 08:16 07:53 Chief complaint: Patient states: "I was supposed to have a heart bypass but they aa5 couldn't do it because I they found a blood clot in my heart so they put me on Eliquis". Pt reports he is currently wearing an external defibrillator and it alerted him twice since midnight, denies being shocked. Chief complaint: Patient states: "I was supposed to have a heart bypass but they couldn't do it because I they found a blood clot in my heart so they put me on Eliquis". Pt reports he is currently wearing an external defibrillator and it alerted him twice since midnight, denies being shocked. aa5 10: 09:36 initiated a transfer with DJ from the [facility] transfer Center at the request of the patient/ he gets his care at [facility] 10:52 10:25 Reassessment: Patient appears in no apparent distress at this time. No changes kc6 from previously documented assessment. Patient and/or family updated on plan of care and expected duration. Pain level reassessed. Patient is alert, oriented x 3, equal unlabored respirations, skin warm/dry/pink. kc6
--- NOTE | 2023-12-27 09:36 | EDPHYS ---
Physician Documentation [facility] Name: Charan Restrepo Jr Age: 53 yrs Sex: Male : 1970 Arrival Date: 12/27/2023 Time: 07:54 Bed 2 Private MD: ED Physician Jerrell Lewis HPI: 12/26 08:20 This 53 yrs old Male presents to ER via Ambulatory with complaints of Chest ec2 Pain, Shortness Of Breath, Defibrillator "going off". 08:20 Patient arrives today for evaluation of chest pain. Ongoing chest pain since ec2 approximately 6 hours ago. Patient reports he woke up from sleep. States he has an external defibrillator, she has noted alarm. Patient reports that no difficulty breathing. Patient reports pain is been constant since that time without specific alleviating or exacerbating factors. States that he had the external defibrillator placed at [facility] in [place]. Unsure of his furnace cooler.. Historical: - Allergies: 08:00 No Known Allergies; aa5 - Home Meds: 08:00 Nitroglycerin SL [Active]; metoprolol tartrate 25 mg Oral tablet 2 times per day aa5 [Active]; Eliquis 5 mg oral tablet 2 times per day [Active]; atorvastatin 40 mg oral tablet once [Active]; isosorbide mononitrate 30 mg Oral Tablet, Extended Release 24 hr once [Active]; - PMHx: 08:00 diabetes mellitus; Hyperlipidemia; Hypertension; Myocardial infarction; aa5 - PSHx: 08:00 6 heart stents; bone graft; Cholecystectomy; aa5 ROS: 08:20 Constitutional: as per hpi ec2 Exam: 08:20 Constitutional: GEN: NAD Head: atraumatic Eyes: EOMI Ears: External ears are ec2 normal. CV: regular rate LUNGS: no respiratory distress ABD: non-distended SKIN: no evidence of rashes MSK: no evidence of trauma NEURO: moves all extremities equally Vital Signs: 08:09 BP 138 / 89 RA Sitting (auto/reg); Pulse 80 MON; Resp 20 S; Temp 97.1(O); Pulse Ox 99% jg11 on R/A; 09:03 BP 147 / 87; Pulse 70; Resp 16 S; Pulse Ox 97% on R/A; kc6 09:37 BP 150 / 92; Pulse 68; Resp 16 S; Pulse Ox 100% on R/A; kc6 09:42 Weight 83.91 kg; Height 5 ft. 10 in. ; kc6 10:52 BP 134 / 80; Pulse 67; Resp 18 S; Pulse Ox 100% on R/A; kc6 09:42 Body Mass Index 26.54 (83.91 kg, 177.8 cm) kc6 MDM: 08:10 Patient medically screened. ec2 08:20 Data reviewed: vital signs. ED course: Patient arrives today for evaluation of chest ec2 pain. Examination remarkable for well-appearing nontoxic individual with reassuring vital signs. Will obtain cardiac evaluation. Currently evaluating for ACS, doubt PE or dissection. Will give the patient morphine for pain control.. 08:24 ED course: EKG independently reviewed and interpreted by me, shows normal sinus rhythm, ec2 rate of 68, no acute ST segment elevations, intervals are nonconcerning, does have left bundle branch block noted.. 08:29 ED course: Review of external records shows the patient was previously seen here with ec2 cardiology Dr. Rodriguez and ultimately transferred to [facility] for further management of his complex disease. Patient has a history of what sounds like a atrial blood clot for which he is on Eliquis. . 09:09 ED course: CBC reassuring chest x-ray shows no acute intrathoracic process. . ec2 09:14 ED course: Metabolic profile reassuring, hyperglycemia noted, slight BNP elevation at ec2 517, troponin within normal ranges. . 09:34 ED course: On telemetry, patient noted to have bouts of V. tach. Ordered for amiodarone ec2 bolus and drip. Obtain repeat EKG, independently reviewed and interpreted by me, normal sinus rhythm, rate of 68, no acute ST segment elevations, nonconcerning intervals. Were unable to capture the bouts of V. tach on EKG. . 09:34 ED course: I discussed case with Dr. Rodriguez, cardiology, states he should be ec2 transferred to [facility] given his multivessel disease and would benefit from bypass. Patient updated on the plan of care.. 09:56 ED course: I discussed case with [facility] agrees to accept patient for ec2 transfer. Will proceed with transfer to [facility]. Patient ultimately a chronically ill individual with multivessel CAD will be appropriate for continued medical possible operative intervention for CAD. 12/26 08:10 Order name: Basic Metabolic Panel; Complete Time: 09:14 ec2 12/26 08:10 Order name: CBC with Diff; Complete Time: 09:09 ec2 12/26 08:10 Order name: NT PRO-BNP; Complete Time: 09:14 ec2 12/26 08:10 Order name: Troponin HS; Complete Time: 09:14 ec2 12/26 08:10 Order name: XRAY Chest (1 view); Complete Time: 09:09 ec2 12/26 08:10 Order name: EKG; Complete Time: 08:10 ec2 12/26 08:10 Order name: Cardiac monitoring; Complete Time: 08:27 ec2 12/26 08:10 Order name: EKG - Nurse/Tech; Complete Time: 08:24 ec2 12/26 08:10 Order name: IV Saline Lock; Complete Time: 09:00 ec2 12/26 08:10 Order name: Labs collected and sent; Complete Time: 08:47 ec2 12/26 08:10 Order name: O2 Per Protocol; Complete Time: 08:24 ec2 12/26 08:10 Order name: O2 Sat Monitoring; Complete Time: 08:24 ec2 Administered Medications: 09:00 Drug: morphine IVP or IV 4 mg IVP once over 4 mins Route: IVP; Infused Over: 4 mins; kc6 Site: right wrist; 09:37 Follow up: Response: No adverse reaction; Pain is decreased; RASS: Alert and Calm (0) [facility] 09:30 Drug: amiodarone IVPB 150 mg 100 ml IVPB once over 10 mins; (mix in D5W) Volume: 100 kc6 ml; Route: IVPB; Infused Over: 10 mins; Site: right wrist; 10:14 Follow up: Response: No adverse reaction; IV Status: Completed infusion kc6 10:14 Drug: amiodarone IVPB 900 mg, D5W IV 500 ml IVPB at 1 mg/min continuous; for 6 hrs, kc6 then change to 0.5 mg/min Route: IVPB; Rate: 1 mg/min; Site: left forearm; 10:54 Follow up: Response: No adverse reaction; IV Status: Infusion continued upon transfer kc6 10:30 Drug: [place] PO 10 mg-325 mg 1 tabs PO once Route: PO; kc6 10:54 Follow up: Response: No adverse reaction kc6 Disposition: 09:36 Critical Care:. ec2 Disposition Summary: 12/27/23 09:35 Transfer Ordered Notes: Transfer Location: [facility] System ec2 Reason: Higher level of care ec2 Condition: Stable ec2 Problem: an acute exacerbation ec2 Symptoms: have improved ec2 Accepting Physician: MAYITO CL Doc(12/27/23 10:54) kc6 Diagnosis - Ventricular tachycardia ec2 - Chest pain, unspecified ec2 - Atherosclerotic heart disease of [place] coronary artery with unstable angina ec2 pectoris Forms: - Medication Reconciliation Form ec2 - SBAR form ec2 Critical care time excluding procedures: 09:36 Critical care time: Bedside Care: 30 minutes, Consultation: 10 minutes. Total time: 40 ec2 minutes Signatures: Dispatcher [employer] Estrellita Berger RN RN aa5 Unique Mccartney RN RN kc6 Jerrell Lewis MD MD ec2 Corrections: (The following items were deleted from the chart) 08:09 08:00 PMHx: heart attack; aa5 aa5 10:54 09:35 [facility] Doc ec2 kc6
[2023-12-27 11:24] VITALS: BP 134/80; TEMP 97.1; O2SAT 100
== END ==
LOC: ER 07:54
DX: I47.20 Ventricular tachycardia, unspecified (principal); I25.110 Atherosclerotic heart disease of native coronary artery with unstable angina pectoris; I10 Essential (primary) hypertension; I25.2 Old myocardial infarction; E11.9 Type 2 diabetes mellitus without complications; Z79.01 Long term (current) use of anticoagulants; Z95.810 Presence of automatic (implantable) cardiac defibrillator; Z95.818 Presence of other cardiac implants and grafts
CPT/HCPCS: 93005 ×2; 85025; 80048; 36415; 84484; 83880; 71045; 99285; J0282 ×2; J7060

== ENCOUNTER 2024-02-17 03:13 | Inpatient (IN) | payer OTHER ==
--- OUTSIDE RECORDS SUMMARY | 2024-02-17 03:22 | XMS REPORT | Continuity of Care Document ---
Author Name Unknown Address [address] [facility]. 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 Name Role Phone Carmen Spencer Attending Clinician Unavailable Jemal Young Attending Clinician Unavailable Papo Mayfield Attending Clinician UnavailMontez Grace Attending Clinician Unavailable Jac Marsh Admitting Clinician Unavailable Papo Mayfield Admitting Clinician UnavailMontez Grace Admitting Clinician Unavailable Payers Payer Name Policy Type Policy Number Effective Date Expirati on Date Source [facility] 6 [id number] 2019 00:00:00 [facility] Problems Condition Name Condition Details Condition Category Status Onset Date Resolution Date Last Treatment Date Treating Clinician Comments Source [id number] Chronic pain syndrome Problem [facility] [id number] Essential hypertensi on Problem [facility] [id number] Coronary stent patent Problem [facility] [id number] Coronary artery disease of [place] heart with stable angina pectoris, unspecifie d vessel or lesion type Problem [facility] [id number] Type 2 diabetes mellitus with hyperglyce solange, without long-term current use of insulin Problem [facility] [id number] Nicotine abuse Problem [facility] Allergies, Adverse Reactions, Alerts Allergy Name Allergy Type Status Severity Reaction(s) Onset Date Inactive Date Treating Clinician Comments Source No Known Allergie s DA Active U 03-18 00:00: 00 [facility] Social History Social Habit Start Date Stop Date Quantity Comments Source History of Tobacco Use Current Smoker [facility] Sex Assigned At [facility] Smoking Status Start Date Stop Date Source Current Smoker 2022-11-09 00:00:00 [facility] Medications Ordered Medication Name Filled Medication Name Start Date Stop Date Current Medication? Ordering Clinician Indication Dosage Frequency Signature (SIG) Comments Components Source Metoprolol Succinate ER 25 MG Metoprolol Succinate ER 25 MG No 1{table t} QD Metoprolol Succinate ER 25 MG Jardiance 25 [...] t} QD Metoprolol Succinate ER 25 MG Jardiance 25 [...] height 2022-10-10 10:40:00 70 [in_i] [facility] n [facility] weight 2022-10-10 10:40:00 198 [lb_av] Comm on [facility] temperature 2022-10-10 10:40:00 97.9 [degF] Com mon [facility] bmi 2022-10-10 10:40:00 28.41 kg/m2 Comm on [facility] oximetry 2022-10-10 10:40:00 98 % Commo n [facility] respiratory rate 2022-10-10 10:40:00 17 /min [facility] blood pressure systolic 2022-10-10 10:40:00 132 mm[Hg] [facility] blood pressure diastolic 2022-10-10 10:40:00 87 mm[Hg] [facility] Procedures Procedure Date / Time Performed Performing Clinicia n Source [id number] 2023-11-30 00:00:00 CHAAB.01 [facility] [id number] 2023-11-30 00:00:00 CHASH.07 [facility] [id number] 2023-03-18 00:00:00 LUKDA [facility] [id number] 2023-03-18 00:00:00 BUCSC [facility] [id number] 2023-03-18 00:00:00 LUKDA [facility] [id number] 2023-03-18 00:00:00 LUKDA [facility] [id number] 2023-03-18 00:00:00 LUKDA [facility] [id number] 2023-03-18 00:00:00 LUKDA [facility] [id number] 2023-03-18 00:00:00 KDA [facility] Encounters Start Date/Time End Date/Time Encounter Type Admission Type Attending Clinicians Care Facility Care Department Encounter ID Source 2022-11-07 07:49:00 Outpatient Carmen Spencer [facility] [id number] [facility] 2022-10-17 15:16:02 Outpatient Carmen Spencer [facility] [id number] [facility] 2022-10-11 12:49:02 Outpatient Carmen Spencer [facility] [id number] [facility] 2022-10-10 10:34:05 Outpatient Carmen Spencer [facility] [id number] [facility] 2023-12-27 15:16:00 2024-01-08 14:20:00 Inpatient EM Jemal Young [facility] INTE.02 [id number] [facility] 2023-11-27 00:28:00 2023-12-03 15:18:00 Inpatient EM Papo Mayfield [facility] INTE [id number] [facility] 2023-05-16 11:13:22 2023-05-16 11:13:22 Outpatient SFA SFA [id number] [facility] 2023-03-18 14:57:00 2023-03-20 16:25:00 Inpatient Montez Kay HCAWU MEDI [id number] [facility] 2023-02-19 00:00:00 2023-02-19 00:00:00 (TEL) STLMLC STLC [id number] [facility] 2022-10-10 00:00:00 2022-10-10 00:00:00 OFFICE VISIT ESTAB PT LEVEL 4 [facility]LMLC STLMLC [id number] [facility] Results Test Description Test Time Test Comments Results Result Co mments Source GLUCOSE [id number] 08:39:00* Test Item Value Reference Range Interpretation Comme nts GLUCOSE BEDSIDE (test code = GLUBED) 224 MG/DL 70-110 H Performed by cer tified twisting operator at [facility] BASIC METABOLIC [id number] 05:38:00* Test Item Value Reference Range Interpretation Comme nts SODIUM (test code = NA) 136 mEq/L 134-147 N POTASSIUM (test code = K) 4.3 mEq/L 3.4-5.0 N CHLORIDE (test code = CL) 101 mEq/L 100-108 N CARBON DIOXIDE (test code = CO2) 28 mEq/l 21-33 N ANION GAP (test code = GAP) 12 0-20 N GLUCOSE (test code = GLU) 193 mg/dL 77-141 H BLOOD UREA NITROGEN (test code = BUN) 14 mg/dL 7-25 N GLOMERULAR FILTRATION RATE (test code = GFR) 71.9 90-95 L The Glomerular Filtration Rate is [...] <18 years. CREATININE (test code = CREAT) 1.2 mg/dL 0.6-1.3 N CALCIUM (test code = CA) 9.6 mg/dL 8.0-10.5 N [id number] 05:38:00* Test Item Value Reference Range Interpretation Comme nts MAGNESIUM (test code = MAG) 1.92 mg/dL 1.6-2.6 N CBC W/AUTO [id number] 05:32:00* Test Item Value Reference Range Interpretation Comme nts WHITE BLOOD CELL (test code = WBC) 8.5 x10 3/uL 4.5-11.0 N RED BLOOD CELL (test code = RBC) 5.53 x10 6/uL 4.00-5.60 N HEMOGLOBIN (test code = HGB) 16.1 g/dL 12.5-16.9 N HEMATOCRIT (test code = HCT) 47.9 % 37.5-50.7 N MEAN CELL VOLUME (test code = MCV) 86.6 fL 81.0-99.0 N MEAN CELL HGB (test code = MCH) 29.1 pg 27.0-33.0 N MEAN CELL HGB CONCETRATION (test code = MCHC) 33.6 g/dL 33.0-37.0 N RED CELL DISTRIBUTION WIDTH CV (test code = RDW) 13.2 % 11.5-14.5 N RED CELL DISTRIBUTION WIDTH SD (test code = RDW-SD) 42.3 fL 37.0-54.0 N PLATELET COUNT (test code = PLT) 219 x10 3/uL 150-400 N MEAN PLATELET VOLUME (test c ode = MPV) 10.6 fL 7.0-9.0 H NEUTROPHIL % (test code = NT%) 60.5 % 56.0-77.0 N IMMATURE GRANULOCYTE % (test code = IG%) 1.4 % 0.0-2.0 N LYMPHOCYTE % (test code = LY%) 23.3 % 14.0-32.0 N MONOCYTE % (test code = MO%) 7.7 % 4.8-9.0 N EOSINOPHIL % (test code = EO%) 5.7 % 0.3-3.7 H BASOPHIL % (test code = BA%) 1.4 % 0.0-2.0 N NUCLEATED RBC % (test code = NRBC%) 0.0 % 0-0 N NEUTROPHIL # (test code = NT#) 5.16 x10 3/uL 2.0-7.6 N IMMATURE GRANULOCYTE # (test code = IG#) 0.12 x10 3/uL 0.00-0.03 H LYMPHOCYTE # (test code = LY#) 1.99 x10 3/uL 1.0-3.8 N MONOCYTE # (test code = MO#) 0.66 x10 3/uL 0.1-0.8 N EOSINOPHIL # (test code = EO#) 0.49 x10 3/uL 0.0-0.2 H BASOPHIL # (test code = BA#) 0.12 x10 3/uL 0.0-0.2 N NUCLEATED RBC # (test code = NRBC#) 0.00 x10 3/uL 0.0-0.1 N PROTHROMBIN [id number] 05:31:00* Test Item Value Reference Range Interpretation Comme nts PROTHROMBIN TIME PATIENT (test code = PTP) 21.3 SECONDS 9.3-12.9 H INTERNATIONAL NORMAL RATIO (test code = INR) 1.9 0.8-1.2 H TARGET INR BY INDICATION Indication INR1. Prophylaxis [...] Myocardial Infarction (to prevent recurrent infarct). COMMENTS: INR X 9 DAYSTHROMBOPLASTIN TIME [id number] 05:31:00* Test Item Value Reference Range Interpretation Comme nts THROMBOPLASTIN TIME PARTIAL (test code = PTT) 67.3 Seconds 25.0-39.5 H Therapeutic Rang e: 50.4 - 88.3 Seconds Effective 02/04/2019 COMMENTS: INR X 9 DAYSGLUCOSE [id number] 20:37:00* Test Item Value Reference Range Interpretation Comme nts GLUCOSE BEDSIDE (test code = GLUBED) 150 MG/DL 70-110 H Performed by [facility] Krush twisting operator at [facility] THROMBOPLASTIN TIME [id number] 18:35:00* Test Item Value Reference Range Interpretation Comme nts THROMBOPLASTIN TIME PARTIAL (test code = PTT) 66.0 Seconds 25.0-39.5 H Therapeutic Rang e: 50.4 - 88.3 Seconds Effective 02/04/2019 GLUCOSE [id number] 17:06:00* Test Item Value Reference Range Interpretation Comme nts GLUCOSE BEDSIDE (test code = GLUBED) 215 MG/DL 70-110 H Performed by [facility] Krush twisting operator at [facility] THROMBOPLASTIN TIME [id number] 13:31:00* Test Item Value Reference Range Interpretation Comme nts THROMBOPLASTIN TIME PARTIAL (test code = PTT) 56.8 Seconds 25.0-39.5 H Therapeutic Rang e: 50.4 - 88.3 Seconds Effective 02/04/2019 GLUCOSE [id number] 12:41:00* Test Item Value Reference Range Interpretation Comme nts GLUCOSE BEDSIDE (test code = GLUBED) 136 MG/DL 70-110 H Performed by [facility] Krush twisting operator at [facility] GLUCOSE [id number] 08:37:00* Test Item Value Reference Range Interpretation Comme nts GLUCOSE BEDSIDE (test code = GLUBED) 261 MG/DL 70-110 H Performed by [facility] Krush twisting operator at [facility] BASIC METABOLIC [id number] 05:33:00* Test Item Value Reference Range Interpretation Comme nts SODIUM (test code = NA) 135 mEq/L 134-147 N POTASSIUM (test code = K) 4.5 mEq/L 3.4-5.0 N CHLORIDE (test code = CL) 101 mEq/L 100-108 N CARBON DIOXIDE (test code = CO2) 30 mEq/l 21-33 ANION GAP (test code = GAP) 9 0-20 N GLUCOSE (test code = GLU) 262 mg/dL 77-141 H BLOOD UREA NITROGEN (test code = BUN) 19 mg/dL 7-25 N GLOMERULAR FILTRATION RATE (test code = GFR) 71.9 90-95 L The Glomerular Filtration Rate is [...] <18 years. CREATININE (test code = CREAT) 1.2 mg/dL 0.6-1.3 N CALCIUM (test code = CA) 9.3 mg/dL 8.0-10.5 N [id number] 05:33:00* Test Item Value Reference Range Interpretation Comme nts MAGNESIUM (test code = MAG) 1.98 mg/dL 1.6-2.6 N PROTHROMBIN [id number] 04:58:00* Test Item Value Reference Range Interpretation Comme nts PROTHROMBIN TIME PATIENT (test code = PTP) 13.3 SECONDS 9.3-12.9 H INTERNATIONAL NORMAL RATIO (test code = INR) 1.2 0.8-1.2 N TARGET INR BY INDICATION Indication [...] Myocardial Infarction (to prevent recurrent infarct). COMMENTS: INR X 9 DAYSTHROMBOPLASTIN TIME [id number] 04:58:00* Test Item Value Reference Range Interpretation Comme nts THROMBOPLASTIN TIME PARTIAL (test code = PTT) 78.6 Seconds 25.0-39.5 H Therapeutic Rang e: 50.4 - 88.3 Seconds Effective 02/04/2019 COMMENTS: PROTOCOLCBC W/AUTO [id number] 04:47:00* Test Item Value Reference Range Interpretation Comme nts WHITE BLOOD CELL (test code = WBC) 7.8 x10 3/uL 4.5-11.0 N RED BLOOD CELL (test code = RBC) 5.53 x10 6/uL 4.00-5.60 N HEMOGLOBIN (test code = HGB) 16.1 g/dL 12.5-16.9 N HEMATOCRIT (test code = HCT) 47.6 % 37.5-50.7 N MEAN CELL VOLUME (test code = MCV) 86.1 fL 81.0-99.0 N MEAN CELL HGB (test code = MCH) 29.1 pg 27.0-33.0 N MEAN CELL HGB CONCETRATION (test code = MCHC) 33.8 g/dL 33.0-37.0 N RED CELL DISTRIBUTION WIDTH CV (test code = RDW) 13.2 % 11.5-14.5 N RED CELL DISTRIBUTION WIDTH SD (test code = RDW-SD) 42.0 fL 37.0-54.0 N PLATELET COUNT (test code = PLT) 211 x10 3/uL 150-400 N MEAN PLATELET VOLUME (test c ode = MPV) 10.2 fL 7.0-9.0 H NEUTROPHIL % (test code = NT%) 60.0 % 56.0-77.0 N IMMATURE GRANULOCYTE % (test code = IG%) 1.4 % 0.0-2.0 N LYMPHOCYTE % (test code = LY%) 24.1 % 14.0-32.0 N MONOCYTE % (test code = MO%) 7.4 % 4.8-9.0 N EOSINOPHIL % (test code = EO%) 5.9 % 0.3-3.7 H BASOPHIL % (test code = BA%) 1.2 % 0.0-2.0 N NUCLEATED RBC % (test code = NRBC%) 0.0 % 0-0 N NEUTROPHIL # (test code = NT#) 4.65 x10 3/uL 2.0-7.6 N IMMATURE GRANULOCYTE # (test code = IG#) 0.11 x10 3/uL 0.00-0.03 H LYMPHOCYTE # (test code = LY#) 1.87 x10 3/uL 1.0-3.8 N MONOCYTE # (test code = MO#) 0.57 x10 3/uL 0.1-0.8 N EOSINOPHIL # (test code = EO#) 0.46 x10 3/uL 0.0-0.2 H BASOPHIL # (test code = BA#) 0.09 x10 3/uL 0.0-0.2 N NUCLEATED RBC # (test code = NRBC#) 0.00 x10 3/uL 0.0-0.1 N GLUCOSE [id number] 21:14:00* Test Item Value Reference Range Interpretation Comme nts GLUCOSE BEDSIDE (test code = GLUBED) 160 MG/DL 70-110 H Performed by cer tified twisting operator at [facility] THROMBOPLASTIN TIME [id number] 20:55:00* Test Item Value Reference Range Interpretation Comme nts THROMBOPLASTIN TIME PARTIAL (test code = PTT) 71.0 Seconds 25.0-39.5 H Therapeutic Rang e: 50.4 - 88.3 Seconds Effective 02/04/2019 COMMENTS: PROTOCOLGLUCOSE [id number] 17:37:00* Test Item Value Reference Range Interpretation Comme nts GLUCOSE BEDSIDE (test code = GLUBED) 203 MG/DL 70-110 H Performed by cer tified twisting operator at [facility] GLUCOSE [id number] 12:16:00* Test Item Value Reference Range Interpretation Comme nts GLUCOSE BEDSIDE (test code = GLUBED) 140 MG/DL 70-110 H Performed by cer tified twisting operator at [facility] GLUCOSE [id number] 08:54:00* Test Item Value Reference Range Interpretation Comme nts GLUCOSE BEDSIDE (test code = GLUBED) 213 MG/DL 70-110 H Performed by cer tified twisting operator at [facility] GLUCOSE [id number] 08:33:00* Test Item Value Reference Range Interpretation Comme nts GLUCOSE BEDSIDE (test code = GLUBED) 297 MG/DL 70-110 H Performed by cer tified twisting operator at [facility] BASIC METABOLIC [id number] 06:28:00* Test Item Value Reference Range Interpretation Comme nts SODIUM (test code = NA) 134 mEq/L 134-147 N POTASSIUM (test code = K) 4.5 mEq/L 3.4-5.0 N CHLORIDE (test code = CL) 104 mEq/L 100-108 N CARBON DIOXIDE (test code = CO2) 23 mEq/l 21-33 N ANION GAP (test code = GAP) 12 0-20 N GLUCOSE (test code = GLU) 213 mg/dL 77-141 H BLOOD UREA NITROGEN (test code = BUN) 13 mg/dL 7-25 N GLOMERULAR FILTRATION RATE (test [...] 0.6-1.3 N CALCIUM (test code = CA) 9.2 mg/dL 8.0-10.5 N [id number] 06:28:00* Test Item Value Reference Range Interpretation Comme nts PHOSPHOROUS (test code = PHOS) 4.2 MG/DL 2.5-4.9 N [id number] 06:28:00* Test Item Value Reference Range Interpretation Comme nts MAGNESIUM (test code = MAG) 1.93 mg/dL 1.6-2.6 N CBC W/AUTO [id number] 05:51:00* Test Item Value Reference Range Interpretation Comme nts WHITE BLOOD CELL (test code = WBC) 7.9 x10 3/uL 4.5-11.0 N RED BLOOD CELL (test code = RBC) 5.50 x10 6/uL 4.00-5.60 N HEMOGLOBIN (test code = HGB) 16.0 g/dL 12.5-16.9 N HEMATOCRIT (test code = HCT) 47.3 % 37.5-50.7 N MEAN CELL VOLUME (test code = MCV) 86.0 fL 81.0-99.0 N MEAN CELL HGB (test code = MCH) 29.1 pg 27.0-33.0 N MEAN CELL HGB CONCETRATION (test code = MCHC) 33.8 g/dL 33.0-37.0 N RED CELL DISTRIBUTION WIDTH CV (test code = RDW) 13.3 % 11.5-14.5 N RED CELL DISTRIBUTION WIDTH SD (test code = RDW-SD) 42.0 fL 37.0-54.0 N PLATELET COUNT (test code = PLT) 197 x10 3/uL 150-400 N MEAN PLATELET VOLUME (test c ode = MPV) 10.1 fL 7.0-9.0 H NEUTROPHIL % (test code = NT%) 56.4 % 56.0-77.0 N IMMATURE GRANULOCYTE % (test code = IG%) 1.3 % 0.0-2.0 N LYMPHOCYTE % (test code = LY%) 25.4 % 14.0-32.0 N MONOCYTE % (test code = MO%) 8.9 % 4.8-9.0 N EOSINOPHIL % (test code = EO%) 6.7 % 0.3-3.7 H BASOPHIL % (test code = BA%) 1.3 % 0.0-2.0 N NUCLEATED RBC % (test code = NRBC%) 0.0 % 0-0 N NEUTROPHIL # (test code = NT#) 4.46 x10 3/uL 2.0-7.6 N IMMATURE GRANULOCYTE # (test code = IG#) 0.10 x10 3/uL 0.00-0.03 H LYMPHOCYTE # (test code = LY#) 2.01 x10 3/uL 1.0-3.8 N MONOCYTE # (test code = MO#) 0.70 x10 3/uL 0.1-0.8 N EOSINOPHIL # (test code = EO#) 0.53 x10 3/uL 0.0-0.2 H BASOPHIL # (test code = BA#) 0.10 x10 3/uL 0.0-0.2 N NUCLEATED RBC # (test code = NRBC#) 0.00 x10 3/uL 0.0-0.1 N PROTHROMBIN [id number] 05:38:00* Test Item Value Reference Range Interpretation Comme nts PROTHROMBIN TIME PATIENT (test code = PTP) 11.6 SECONDS 9.3-12.9 N INTERNATIONAL NORMAL RATIO (test [...] Myocardial Infarction (to prevent recurrent infarct). COMMENTS: INR X 9 DAYSTHROMBOPLASTIN TIME [id number] 05:38:00* Test Item Value Reference Range Interpretation Comme nts THROMBOPLASTIN TIME PARTIAL (test code = PTT) 87.3 Seconds 25.0-39.5 H Therapeutic Rang e: 50.4 - 88.3 Seconds Effective 02/04/2019 COMMENTS: INR X 9 DAYSGLUCOSE [id number] 20:09:00* Test Item Value Reference Range Interpretation Comme nts GLUCOSE BEDSIDE (test code = GLUBED) 265 MG/DL 70-110 H Performed by cer tified twisting operator at [facility] GLUCOSE [id number] 15:50:00* Test Item Value Reference Range Interpretation Comme nts GLUCOSE BEDSIDE (test code = GLUBED) 125 MG/DL 70-110 H Performed by cer tified twisting operator at [facility] PROTHROMBIN [id number] 15:36:00* Test Item Value Reference Range Interpretation Comme [...] Myocardial Infarction (to prevent recurrent infarct). COMMENTS: INR NOWGLUCOSE [id number] 11:33:00* Test Item Value Reference Range Interpretation Comme nts GLUCOSE BEDSIDE (test code = GLUBED) 183 MG/DL 70-110 H Performed by [facility] tified twisting operator at [facility] GLUCOSE [id number] 08:53:00* Test Item Value Reference Range Interpretation Comme nts GLUCOSE BEDSIDE (test code = GLUBED) 193 MG/DL 70-110 H Performed by [facility] tified twisting operator at [facility] COMPREHENSIVE METABOLIC [id number] 04:05:00* Test Item Value Reference Range Interpretation Comme nts SODIUM (test code = NA) 135 mEq/L 134-147 N POTASSIUM (test code = K) 4.1 mEq/L 3.4-5.0 N CHLORIDE (test code = CL) 101 mEq/L 100-108 N CARBON DIOXIDE (test code = CO2) 28 mEq/l 21-33 ANION GAP (test code = GAP) 10 0-20 N GLUCOSE (test code = GLU) 206 mg/dL 77-141 H BLOOD UREA NITROGEN (test code = BUN) 16 mg/dL 7-25 N GLOMERULAR FILTRATION RATE (test code = GFR) 79.8 90-95 L The Glomerular Filtration Rate is [...] <18 years. CREATININE (test code = CREAT) 1.1 mg/dL 0.6-1.3 N TOTAL PROTEIN (test code = PROT) 6.6 g/dL 6.4-8.2 N ALBUMIN (test code = ALB) 4.00 g/dL 3.4-5.0 N CALCIUM (test code = CA) 9.2 mg/dL 8.0-10.5 N BILIRUBIN TOTAL (test code = BILT) 0.50 mg/dL 0.0-1.0 N SGOT/AST (test code = AST) 21 IUnit/L 8-34 N SGPT/ALT (test code = ALT) 32 IUnit/L 10-49 N ALKALINE PHOSPHATASE TOTAL (test code = ALKP) 78 IUnit/L 20-125 N [id number] 04:05:00* Test Item Value Reference Range Interpretation Comme nts MAGNESIUM (test code = MAG) 1.88 mg/dL 1.6-2.6 N THROMBOPLASTIN TIME [id number] 03:57:00* Test Item Value Reference Range Interpretation Comme nts THROMBOPLASTIN TIME PARTIAL (test code = PTT) 74.6 Seconds 25.0-39.5 H Therapeutic Rang e: 50.4 - 88.3 Seconds Effective 02/04/2019 CBC W/AUTO [id number] 03:47:00* Test Item Value Reference Range Interpretation Comme nts WHITE BLOOD CELL (test code = WBC) 7.8 x10 3/uL 4.5-11.0 N RED BLOOD CELL (test code = RBC) 5.46 x10 6/uL 4.00-5.60 N HEMOGLOBIN (test code = HGB) 16.0 g/dL 12.5-16.9 N HEMATOCRIT (test code = HCT) 47.1 % 37.5-50.7 N MEAN CELL VOLUME (test code = MCV) 86.3 fL 81.0-99.0 N MEAN CELL HGB (test code = MCH) 29.3 pg 27.0-33.0 N MEAN CELL HGB CONCETRATION (test code = MCHC) 34.0 g/dL 33.0-37.0 N RED CELL DISTRIBUTION WIDTH CV (test code = RDW) 13.3 % 11.5-14.5 N RED CELL DISTRIBUTION WIDTH SD (test code = RDW-SD) 41.4 fL 37.0-54.0 N PLATELET COUNT (test code = PLT) 200 x10 3/uL 150-400 N MEAN PLATELET VOLUME (test c ode = MPV) 10.2 fL 7.0-9.0 H NEUTROPHIL % (test code = NT%) 58.9 % 56.0-77.0 N IMMATURE GRANULOCYTE % (test code = IG%) 1.2 % 0.0-2.0 N LYMPHOCYTE % (test code = LY%) 25.1 % 14.0-32.0 N MONOCYTE % (test code = MO%) 7.7 % 4.8-9.0 N EOSINOPHIL % (test code = EO%) 5.8 % 0.3-3.7 H BASOPHIL % (test code = BA%) 1.3 % 0.0-2.0 N NUCLEATED RBC % (test code = NRBC%) 0.0 % 0-0 N NEUTROPHIL # (test code = NT#) 4.58 x10 3/uL 2.0-7.6 N IMMATURE GRANULOCYTE # (test code = IG#) 0.09 x10 3/uL 0.00-0.03 H LYMPHOCYTE # (test code = LY#) 1.95 x10 3/uL 1.0-3.8 N MONOCYTE # (test code = MO#) 0.60 x10 3/uL 0.1-0.8 N EOSINOPHIL # (test code = EO#) 0.45 x10 3/uL 0.0-0.2 H BASOPHIL # (test code = BA#) 0.10 x10 3/uL 0.0-0.2 N NUCLEATED RBC # (test code = NRBC#) 0.00 x10 3/uL 0.0-0.1 N GLUCOSE [id number] 21:27:00* Test Item Value Reference Range Interpretation Comme [facility] GLUCOSE BEDSIDE (test code = GLUBED) 213 MG/DL 70-110 H Performed by cer tified twisting operator at [facility] GLUCOSE [id number] 16:59:00* Test Item Value Reference Range Interpretation Comme nts GLUCOSE BEDSIDE (test code = GLUBED) 258 MG/DL 70-110 H Performed by cer tified twisting operator at [facility] GLUCOSE [id number] 11:55:00* Test Item Value Reference Range Interpretation Comme nts GLUCOSE BEDSIDE (test code = GLUBED) 159 MG/DL 70-110 H Performed by cer tified twisting operator at [facility] GLUCOSE [id number] 08:36:00* Test Item Value Reference Range Interpretation Comme nts GLUCOSE BEDSIDE (test code = GLUBED) 231 MG/DL 70-110 H Performed by [facility] tified twisting operator at [facility] THROMBOPLASTIN TIME [id number] 06:10:00* Test Item Value Reference Range Interpretation Comme nts THROMBOPLASTIN TIME PARTIAL (test code = PTT) 66.1 Seconds 25.0-39.5 H Therapeutic Rang e: 50.4 - 88.3 Seconds Effective 02/04/2019 BASIC METABOLIC [id number] 05:30:00* Test Item Value Reference Range Interpretation Comme nts SODIUM (test code = NA) 134 mEq/L 134-147 N POTASSIUM (test code = K) 4.2 mEq/L 3.4-5.0 N CHLORIDE (test code = CL) 105 mEq/L 100-108 N CARBON DIOXIDE (test code = CO2) 22 mEq/l 21-33 N ANION GAP (test code = GAP) 11 0-20 N GLUCOSE (test code = GLU) 197 mg/dL 77-141 H BLOOD UREA NITROGEN (test code = BUN) 12 mg/dL 7-25 N GLOMERULAR FILTRATION RATE (test [...] 0.6-1.3 N CALCIUM (test code = CA) 8.8 mg/dL 8.0-10.5 N [id number] 05:30:00* Test Item Value Reference Range Interpretation Comme nts PHOSPHOROUS (test code = PHOS) 3.4 MG/DL 2.5-4.9 N [id number] 05:30:00* Test Item Value Reference Range Interpretation Comme nts MAGNESIUM (test code = MAG) 1.79 mg/dL 1.6-2.6 N CALCIUM [id number] 05:30:00* Test Item Value Reference Range Interpretation Comme nts CALCIUM IONIZED (test code = MONICA) 1.06 MMOL/L 1.09-1.30 L CBC W/AUTO [id number] 04:56:00* Test Item Value Reference Range Interpretation Comme nts WHITE BLOOD CELL (test code = WBC) 8.3 x10 3/uL 4.5-11.0 N RED BLOOD CELL (test code = RBC) 5.27 x10 6/uL 4.00-5.60 N HEMOGLOBIN (test code = HGB) 15.2 g/dL 12.5-16.9 N HEMATOCRIT (test code = HCT) 45.6 % 37.5-50.7 N MEAN CELL VOLUME (test code = MCV) 86.5 fL 81.0-99.0 N MEAN CELL HGB (test code = MCH) 28.8 pg 27.0-33.0 N MEAN CELL HGB CONCETRATION (test code = MCHC) 33.3 g/dL 33.0-37.0 N RED CELL DISTRIBUTION WIDTH CV (test code = RDW) 13.2 % 11.5-14.5 N RED CELL DISTRIBUTION WIDTH SD (test code = RDW-SD) 41.7 fL 37.0-54.0 N PLATELET COUNT (test code = PLT) 179 x10 3/uL 150-400 N MEAN PLATELET VOLUME (test c ode = MPV) 10.2 fL 7.0-9.0 H NEUTROPHIL % (test code = NT%) 58.8 % 56.0-77.0 N IMMATURE GRANULOCYTE % (test code = IG%) 1.0 % 0.0-2.0 N LYMPHOCYTE % (test code = LY%) 25.4 % 14.0-32.0 N MONOCYTE % (test code = MO%) 8.0 % 4.8-9.0 N EOSINOPHIL % (test code = EO%) 5.7 % 0.3-3.7 H BASOPHIL % (test code = BA%) 1.1 % 0.0-2.0 N NUCLEATED RBC % (test code = NRBC%) 0.0 % 0-0 N NEUTROPHIL # (test code = NT#) 4.86 x10 3/uL 2.0-7.6 N IMMATURE GRANULOCYTE # (test code = IG#) 0.08 x10 3/uL 0.00-0.03 H LYMPHOCYTE # (test code = LY#) 2.10 x10 3/uL 1.0-3.8 N MONOCYTE # (test code = MO#) 0.66 x10 3/uL 0.1-0.8 N EOSINOPHIL # (test code = EO#) 0.47 x10 3/uL 0.0-0.2 H BASOPHIL # (test code = BA#) 0.09 x10 3/uL 0.0-0.2 N NUCLEATED RBC # (test code = NRBC#) 0.00 x10 3/uL 0.0-0.1 N GLUCOSE [id number] 20:49:00* Test Item Value Reference Range Interpretation Comme nts GLUCOSE BEDSIDE (test code = GLUBED) 221 MG/DL 70-110 H Performed by cer Krush twisting operator at [facility] GLUCOSE [id number] 17:32:00* Test Item Value Reference Range Interpretation Comme nts GLUCOSE BEDSIDE (test code = GLUBED) 206 MG/DL 70-110 H Performed by Operating Analyticsied twisting operator at [facility] GLUCOSE [id number] 11:50:00* Test Item Value Reference Range Interpretation Comme nts GLUCOSE BEDSIDE (test code = GLUBED) 182 MG/DL 70-110 H Performed by cer tifTyrogenex twisting operator at [facility] GLUCOSE [id number] 09:15:00* Test Item Value Reference Range Interpretation Comme nts GLUCOSE BEDSIDE (test code = GLUBED) 195 MG/DL 70-110 H Performed by DoubleDutch twisting operator at [facility] BASIC METABOLIC [id number] 05:52:00* Test Item Value Reference Range Interpretation Comme nts SODIUM (test code = NA) 134 mEq/L 134-147 N POTASSIUM (test code = K) 4.1 mEq/L 3.4-5.0 N CHLORIDE (test code = CL) 105 mEq/L 100-108 N CARBON DIOXIDE (test code = CO2) 22 mEq/l 21-33 N ANION GAP (test code = GAP) 11 0-20 N GLUCOSE (test code = GLU) 224 mg/dL 77-141 H BLOOD UREA NITROGEN (test [...] code = CA) 9.0 mg/dL 8.0-10.5 N [id number] 05:52:00* Test Item Value Reference Range Interpretation Comme nts PHOSPHOROUS (test code = PHOS) 3.3 MG/DL 2.5-4.9 N [id number] 05:52:00* Test Item Value Reference Range Interpretation Comme nts MAGNESIUM (test code = MAG) 1.76 mg/dL 1.6-2.6 CALCIUM [id number] 05:52:00* Test Item Value Reference Range Interpretation Comme nts CALCIUM IONIZED (test code = MONICA) 1.14 MMOL/L 1.09-1.30 N THROMBOPLASTIN TIME [id number] 05:38:00* Test Item Value Reference Range Interpretation Comme nts THROMBOPLASTIN TIME PARTIAL (test code = PTT) 64.8 Seconds 25.0-39.5 H Therapeutic Rang e: 50.4 - 88.3 Seconds Effective 02/04/2019 CBC W/AUTO [id number] 05:26:00* Test Item Value Reference Range Interpretation Comme nts WHITE BLOOD CELL (test code = WBC) 8.2 x10 3/uL 4.5-11.0 N RED BLOOD CELL (test code = RBC) 5.31 x10 6/uL 4.00-5.60 N HEMOGLOBIN (test code = HGB) 15.4 g/dL 12.5-16.9 N HEMATOCRIT (test code = HCT) 45.7 % 37.5-50.7 N MEAN CELL VOLUME (test code = MCV) 86.1 fL 81.0-99.0 N MEAN CELL HGB (test code = MCH) 29.0 pg 27.0-33.0 N MEAN CELL HGB CONCETRATION (test code = MCHC) 33.7 g/dL 33.0-37.0 N RED CELL DISTRIBUTION WIDTH CV (test code = RDW) 13.3 % 11.5-14.5 N RED CELL DISTRIBUTION WIDTH SD (test code = RDW-SD) 41.4 fL 37.0-54.0 N PLATELET COUNT (test code = PLT) 208 x10 3/uL 150-400 N MEAN PLATELET VOLUME (test c ode = MPV) 10.2 fL 7.0-9.0 H NEUTROPHIL % (test code = NT%) 57.6 % 56.0-77.0 N IMMATURE GRANULOCYTE % (test code = IG%) 0.7 % 0.0-2.0 N LYMPHOCYTE % (test code = LY%) 27.3 % 14.0-32.0 N MONOCYTE % (test code = MO%) 8.5 % 4.8-9.0 N EOSINOPHIL % (test code = EO%) 4.9 % 0.3-3.7 H BASOPHIL % (test code = BA%) 1.0 % 0.0-2.0 N NUCLEATED RBC % (test code = NRBC%) 0.0 % 0-0 N NEUTROPHIL # (test code = NT#) 4.70 x10 3/uL 2.0-7.6 N IMMATURE GRANULOCYTE # (test code = IG#) 0.06 x10 3/uL 0.00-0.03 H LYMPHOCYTE # (test code = LY#) 2.23 x10 3/uL 1.0-3.8 N MONOCYTE # (test code = MO#) 0.69 x10 3/uL 0.1-0.8 N EOSINOPHIL # (test code = EO#) 0.40 x10 3/uL 0.0-0.2 H BASOPHIL # (test code = BA#) 0.08 x10 3/uL 0.0-0.2 N NUCLEATED RBC # (test code = NRBC#) 0.00 x10 3/uL 0.0-0.1 N GLUCOSE [id number] 20:31:00* Test Item Value Reference Range Interpretation Comme nts GLUCOSE BEDSIDE (test code = GLUBED) 232 MG/DL 70-110 H Performed by cer tified twisting operator at [facility] GLUCOSE [id number] 16:28:00* Test Item Value Reference Range Interpretation Comme nts GLUCOSE BEDSIDE (test code = GLUBED) 186 MG/DL 70-110 H Performed by cer tified twisting operator at [facility] GLUCOSE [id number] 11:34:00* Test Item Value Reference Range Interpretation Comme nts GLUCOSE BEDSIDE (test code = GLUBED) 239 MG/DL 70-110 H Performed by cer tified twisting operator at [facility] THROMBOPLASTIN TIME [id number] 09:00:00* Test Item Value Reference Range Interpretation Comme nts THROMBOPLASTIN TIME PARTIAL (test code = PTT) 77.8 Seconds 25.0-39.5 H Therapeutic Rang e: 50.4 - 88.3 Seconds Effective 02/04/2019 GLUCOSE [id number] 08:44:00* Test Item Value Reference Range Interpretation Comme nts GLUCOSE BEDSIDE (test code = GLUBED) 197 MG/DL 70-110 H Performed by cer tified twisting operator at [facility] THROMBOPLASTIN TIME [id number] 03:53:00* Test Item Value Reference Range Interpretation Comme nts THROMBOPLASTIN TIME PARTIAL (test code = PTT) 66.2 Seconds 25.0-39.5 H Therapeutic Rang e: 50.4 - 88.3 Seconds Effective 02/04/2019 COMMENTS: PTT THERAPUTIC RANGE 55-75Comment: CHECK PTT [id number] METABOLIC [id number] 02:27:00* Test Item Value Reference Range Interpretation Comme nts SODIUM (test code = NA) 138 mEq/L 134-147 N POTASSIUM (test code = K) 4.4 mEq/L 3.4-5.0 N CHLORIDE (test code = CL) 106 mEq/L 100-108 N CARBON DIOXIDE (test code = CO2) 26 mEq/l 21-33 N ANION GAP (test code = GAP) 10 0-20 N GLUCOSE (test code = GLU) 180 mg/dL 77-141 H BLOOD UREA NITROGEN (test [...] 0.6-1.3 N CALCIUM (test code = CA) 9.7 mg/dL 8.0-10.5 N [id number] 02:27:00* Test Item Value Reference Range Interpretation Comme nts PHOSPHOROUS (test code = PHOS) 3.2 MG/DL 2.5-4.9 N [id number] 02:27:00* Test Item Value Reference Range Interpretation Comme nts MAGNESIUM (test code = MAG) 2.08 mg/dL 1.6-2.6 N CALCIUM [id number] 02:27:00* Test Item Value Reference Range Interpretation Comme nts CALCIUM IONIZED (test code = MONICA) 1.17 MMOL/L 1.09-1.30 N CBC W/AUTO [id number] 01:59:00* Test Item Value Reference Range Interpretation Comme nts WHITE BLOOD CELL (test code = WBC) 8.6 x10 3/uL 4.5-11.0 N RED BLOOD CELL (test code = RBC) 5.50 x10 6/uL 4.00-5.60 N HEMOGLOBIN (test code = HGB) 15.8 g/dL 12.5-16.9 N HEMATOCRIT (test code = HCT) 47.3 % 37.5-50.7 N MEAN CELL VOLUME (test code = MCV) 86.0 fL 81.0-99.0 N MEAN CELL HGB (test code = MCH) 28.7 pg 27.0-33.0 N MEAN CELL HGB CONCETRATION (test code = MCHC) 33.4 g/dL 33.0-37.0 N RED CELL DISTRIBUTION WIDTH CV (test code = RDW) 13.3 % 11.5-14.5 N RED CELL DISTRIBUTION WIDTH SD (test code = RDW-SD) 41.8 fL 37.0-54.0 N PLATELET COUNT (test code = PLT) 203 x10 3/uL 150-400 N MEAN PLATELET VOLUME (test c ode = MPV) 10.3 fL 7.0-9.0 H NEUTROPHIL % (test code = NT%) 60.9 % 56.0-77.0 N IMMATURE GRANULOCYTE % (test code = IG%) 0.8 % 0.0-2.0 N LYMPHOCYTE % (test code = LY%) 24.4 % 14.0-32.0 N MONOCYTE % (test code = MO%) 7.3 % 4.8-9.0 N EOSINOPHIL % (test code = EO%) 5.3 % 0.3-3.7 H BASOPHIL % (test code = BA%) 1.3 % 0.0-2.0 N NUCLEATED RBC % (test code = NRBC%) 0.0 % 0-0 N NEUTROPHIL # (test code = NT#) 5.25 x10 3/uL 2.0-7.6 N IMMATURE GRANULOCYTE # (test code = IG#) 0.07 x10 3/uL 0.00-0.03 H LYMPHOCYTE # (test code = LY#) 2.11 x10 3/uL 1.0-3.8 N MONOCYTE # (test code = MO#) 0.63 x10 3/uL 0.1-0.8 N EOSINOPHIL # (test code = EO#) 0.46 x10 3/uL 0.0-0.2 H BASOPHIL # (test code = BA#) 0.11 x10 3/uL 0.0-0.2 N NUCLEATED RBC # (test code = NRBC#) 0.00 x10 3/uL 0.0-0.1 N THROMBOPLASTIN TIME [id number] 21:30:00* Test Item Value Reference Range Interpretation Comme nts THROMBOPLASTIN TIME PARTIAL (test code = PTT) 65.5 Seconds 25.0-39.5 H Therapeutic Rang e: 50.4 - 88.3 Seconds Effective 02/04/2019 GLUCOSE [id number] 20:14:00* Test Item Value Reference Range Interpretation Comme nts GLUCOSE BEDSIDE (test code = GLUBED) 193 MG/DL 70-110 H Performed by cer tified twisting operator at [facility] GLUCOSE [id number] 16:48:00* Test Item Value Reference Range Interpretation Comme nts GLUCOSE BEDSIDE (test code = GLUBED) 205 MG/DL 70-110 H Performed by cer tified twisting operator at [facility] GLUCOSE [id number] 13:05:00* Test Item Value Reference Range Interpretation Comme nts GLUCOSE BEDSIDE (test code = GLUBED) 119 MG/DL 70-110 H Performed by cer tified twisting operator at [facility] THROMBOPLASTIN TIME [id number] 12:46:00* Test Item Value Reference Range Interpretation Comme nts THROMBOPLASTIN TIME PARTIAL (test code = PTT) 50.1 Seconds 25.0-39.5 H Therapeutic Rang e: 50.4 - 88.3 Seconds Effective 02/04/2019 COMMENTS: PTT THERAPUTIC RANGE 55-75Comment: CHECK PTT [id number] BEDSIDE 2024-01-01 11:43:00* Test Item Value Reference Range Interpretation Comme nts GLUCOSE BEDSIDE (test code = GLUBED) 122 MG/DL 70-110 H Performed by cer tified twisting operator at [facility] GLUCOSE [id number] 09:37:00* Test Item Value Reference Range Interpretation Comme nts GLUCOSE BEDSIDE (test code = GLUBED) 260 MG/DL 70-110 H Performed by cer tified twisting operator at [facility] GLUCOSE [id number] 07:57:00* Test Item Value Reference Range Interpretation Comme nts GLUCOSE BEDSIDE (test code = GLUBED) 245 MG/DL 70-110 H Performed by cer tified twisting operator at [facility] THROMBOPLASTIN TIME [id number] 06:41:00* Test Item Value Reference Range Interpretation Comme nts THROMBOPLASTIN TIME PARTIAL (test code = PTT) 55.9 Seconds 25.0-39.5 H Therapeutic Rang e: 50.4 - 88.3 Seconds Effective 02/04/2019 BASIC METABOLIC [id number] 05:37:00* Test Item Value Reference Range Interpretation Comme nts SODIUM (test code = NA) 137 mEq/L 134-147 N POTASSIUM (test code = K) 4.2 mEq/L 3.4-5.0 N CHLORIDE (test code = CL) 108 mEq/L 100-108 N CARBON DIOXIDE (test code = CO2) 25 mEq/l 21-33 N ANION GAP (test code = GAP) 8 0-20 N GLUCOSE (test code = GLU) 233 mg/dL 77-141 H BLOOD UREA NITROGEN (test code = BUN) 18 mg/dL 7-25 N GLOMERULAR FILTRATION RATE (test code = GFR) 79.8 90-95 L The Glomerular Filtration Rate is [...] <18 years. CREATININE (test code = CREAT) 1.1 mg/dL 0.6-1.3 N CALCIUM (test code = CA) 9.0 mg/dL 8.0-10.5 N [id number] 05:37:00* Test Item Value Reference Range Interpretation Comme nts PHOSPHOROUS (test code = PHOS) 3.3 MG/DL 2.5-4.9 N [id number] 05:37:00* Test Item Value Reference Range Interpretation Comme nts MAGNESIUM (test code = MAG) 1.92 mg/dL 1.6-2.6 N CALCIUM [id number] 05:37:00* Test Item Value Reference Range Interpretation Comme nts CALCIUM IONIZED (test code = MONICA) 1.21 MMOL/L 1.09-1.30 N CBC W/AUTO [id number] 05:09:00* Test Item Value Reference Range Interpretation Comme nts WHITE BLOOD CELL (test code = WBC) 7.3 x10 3/uL 4.5-11.0 N RED BLOOD CELL (test code = RBC) 5.34 x10 6/uL 4.00-5.60 N HEMOGLOBIN (test code = HGB) 15.3 g/dL 12.5-16.9 N HEMATOCRIT (test code = HCT) 45.2 % 37.5-50.7 N MEAN CELL VOLUME (test code = MCV) 84.6 fL 81.0-99.0 MEAN CELL HGB (test code = MCH) 28.7 pg 27.0-33.0 N MEAN CELL HGB CONCETRATION (test code = MCHC) 33.8 g/dL 33.0-37.0 N RED CELL DISTRIBUTION WIDTH CV (test code = RDW) 13.3 % 11.5-14.5 N RED CELL DISTRIBUTION WIDTH SD (test code = RDW-SD) 41.3 fL 37.0-54.0 N PLATELET COUNT (test code = PLT) 210 x10 3/uL 150-400 N MEAN PLATELET VOLUME (test c ode = MPV) 10.1 fL 7.0-9.0 H NEUTROPHIL % (test code = NT%) 52.1 % 56.0-77.0 L IMMATURE GRANULOCYTE % (test code = IG%) 0.8 % 0.0-2.0 N LYMPHOCYTE % (test code = LY%) 30.9 % 14.0-32.0 N MONOCYTE % (test code = MO%) 8.7 % 4.8-9.0 N EOSINOPHIL % (test code = EO%) 6.3 % 0.3-3.7 H BASOPHIL % (test code = BA%) 1.2 % 0.0-2.0 N NUCLEATED RBC % (test code = NRBC%) 0.0 % 0-0 N NEUTROPHIL # (test code = NT#) 3.78 x10 3/uL 2.0-7.6 N IMMATURE GRANULOCYTE # (test code = IG#) 0.06 x10 3/uL 0.00-0.03 H LYMPHOCYTE # (test code = LY#) 2.25 x10 3/uL 1.0-3.8 N MONOCYTE # (test code = MO#) 0.63 x10 3/uL 0.1-0.8 N EOSINOPHIL # (test code = EO#) 0.46 x10 3/uL 0.0-0.2 H BASOPHIL # (test code = BA#) 0.09 x10 3/uL 0.0-0.2 N NUCLEATED RBC # (test code = NRBC#) 0.00 x10 3/uL 0.0-0.1 N THROMBOPLASTIN TIME [id number] 01:23:00* Test Item Value Reference Range Interpretation Comme nts THROMBOPLASTIN TIME PARTIAL (test code = PTT) 61.9 Seconds 25.0-39.5 H Therapeutic Rang e: 50.4 - 88.3 Seconds Effective 02/04/2019 COMMENTS: PTT THERAPUTIC RANGE 55-75Comment: CHECK PTT Q6HRS- CTA HEART W CN ART/[id number] 00:00:00 [facility] 1970 Sex: M Name: CHARAN RESTREPO [facility] : 1970 Age/S: 53 / M [address] [place] [address] Blvd Unit #: [id number] Loc: [place] [address] Phys: Papo Mayfield MD Acct: [id number] Dis Date: Status: ADM INPHONE #: [phone] Exam Date: 01/01/2024 1443 FAX #: [phone] Reason: edy for Exam: evaluate for LV thrombus EXAMS: CPT CODE: [id number] CTA HEART W CN ART/GRAFTS [id number] Radiation Dose CTDIVOL= 83.12 (mGy): DLP = 904.46 (mGy-cm) PROCEDURE INFORMATION: Exam: CTA Heart And Coronary Arteries With Contrast Exam date and time: 01/01/2024 2:25 PM Age: 53 years old Clinical indication: Conditionor disease; Other: Evaluate for lv thrombus TECHNIQUE: Imaging protocol: CT angiography of the heart, coronary arteries, and bypass grafts (when present) with contrast including 3D image postprocessing. Standard prospective cardiac-gated CAC scoring protocol was used for image acquisition. Following intravenous contrast administration, ECG gated CTA was performed. 3D rendering (Not supervised by radiologist): MIP and/or 3D reconstructed images were created by the technologist. Cardiac gating: Retrospective Gating Radiation optimization: All CT scans at this facility use at least one of thesedose optimization techniques: automated exposure control; mA and/or kV adjustment per patient size (includes targeted exams where dose is matched to clinical indication); or iterative reconstruction.Contrast material: ISOUVE 370; Contrast volume: 100 ml; Contrast route: INTRAVENOUS (IV); Pharmacological intervention: None. COMPARISON: CT HEART W CN ART/GRAFTS 11/30/2023 3:09 PM RADIATION DOSE METRICS: CTDI volume (mGy): 83.12 Total DLP (mGy-cm): 904.46 FINDINGS: CORONARY: Left main coronary artery (LMCA): The left main coronary artery is a medium caliber vessel that trifurcates into a left anterior descending artery, left circumflex artery, and ramus intermedius. The left main coronary artery is patent with no evidence plaque or stenosis. Left anterior descending artery (LAD): There is noncalcified plaque at the ostium resulting in mild stenosis. The proximal LAD stent appears widely patent. There appears to be total occlusion of the mid LAD stent with no contrast identified within the distal chitimacha LAD. Patent ramus intermedius. Left circumflex artery (LCx): There is mixed plaque within the left circumflex artery resulting in minimal to mild stenosis. There is minimal stenosis ofthe 1st obtuse marginal branch. PAGE 1 Signed Report (CONTINUED) Name: CHARAN RESTREPO [facility] Xiang Marti : 1970 Age/S: 53 / M [address] [place] [address] Unit #: [id number] Loc: [place] [address] Phys: Papo Mayfield MD Acct: [id number] Dis Date: Status: ADM IN PHONE #: [phone] Exam Date: 01/01/2024 1443 FAX #: [phone] Reason: edy for Exam: evaluate for LV thrombus EXAMS: CPT CODE: [id number] CTA HEART W CN ART/GRAFTS [id number] (Continued) Right coronary artery (RCA): Calcified plaque within the right coronary artery results in minimal to mild stenosis. The right coronary arteryterminates as a posterior descending artery and right posterolateral branch with no evidence of plaque or stenosis. Coronary artery dominance: Right CARDIAC: Cardiac valves: No thickening or calcification of the aortic and mitral valves. Myocardium: There is wall thinning of the ventricular septum,anterior wall and LV apex, consistent with chronic infarct. Moderate size thrombus is present alongthe anterior wall, measuring approximately 4.1 x 2.0 cm in the axial plane. Pericardium: No pericardial effusion or thickening. Moderately dilated left ventricle. FUNCTIONAL ANALYSIS: Left ventricular function: Not performed Lungs: Visualized lungs are unremarkable. Mediastinal space: Limited viewsof the mediastinal space is unremarkable. IMPRESSION: 1. Complete occlusion (100% in-stent restenosis) of the mid LAD stent, with no contrast identified within the distal LAD. 2. Evidence of chronicLAD distribution infarct with remodeling of the myocardium. Moderate-sized thrombus is adherent to the anterior wall measuring approximately 4.1 cm in greatest diameter. 3. Minimal to mild stenosis of the left circumflex artery and the right coronary artery. 4. Moderately dilated left ventricle. Fin dings were communicated to AYLIN Will at 9:42 pm Eastern by telephone. at 2042 Reported and signed by: Adis Khan M.D. CC: Jac Marsh MD; Marycruz Villalba MD; Papo Mayfield MD; Jesusita Osuna MD Technologist:Dejuan Sanchez Jr, RT(R)(CT) CTDI: DLP: Trnscb Date/Time: 01/01/2024 (2042) DarinelR.[email or web address] Orig Print D/T: S: 01/01/2024 (2042) PAGE 2 Signed ReportGLUCOSE BEDSIDE 2023-12-31 23:56:00* Test Item Value Reference Range Interpretation Comme nts GLUCOSE BEDSIDE (test code = GLUBED) 195 MG/DL 70-110 H Performed by cer tified twisting operator at [facility] THROMBOPLASTIN TIME [id number] 18:50:00* Test Item Value Reference Range Interpretation Comme nts THROMBOPLASTIN TIME PARTIAL (test code = PTT) 65.6 Seconds 25.0-39.5 H Therapeutic Rang e: 50.4 - 88.3 Seconds Effective 02/04/2019 COMMENTS: PTT 55-75Comment: ONE TIMEGLUCOSE [id number] 17:39:00* Test Item Value Reference Range Interpretation Comme nts GLUCOSE BEDSIDE (test code = GLUBED) 175 MG/DL 70-110 H Performed by cer tified twisting operator at [facility] THROMBOPLASTIN TIME [id number] 13:08:00* Test Item Value Reference Range Interpretation Comme nts THROMBOPLASTIN TIME PARTIAL (test code = PTT) 52.9 Seconds 25.0-39.5 H Therapeutic Rang e: 50.4 - 88.3 Seconds Effective 02/04/2019 COMMENTS: PTT THERAPUTIC RANGE 55-75Comment: CHECK PTT [id number] BEDSIDE 2023-12-31 12:59:00* Test Item Value Reference Range Interpretation Comme nts GLUCOSE BEDSIDE (test code = GLUBED) 143 MG/DL 70-110 H Performed by cer tified twisting operator at [facility] GLUCOSE [id number] 11:57:00* Test Item Value Reference Range Interpretation Comme nts GLUCOSE BEDSIDE (test code = GLUBED) 109 MG/DL 70-110 N Performed by cer tified twisting operator at [facility] BASIC METABOLIC [id number] 09:58:00* Test Item Value Reference Range Interpretation Comme nts SODIUM (test code = NA) 136 mEq/L 134-147 N POTASSIUM (test code = K) 4.5 mEq/L 3.4-5.0 N CHLORIDE (test code = CL) 108 mEq/L 100-108 N CARBON DIOXIDE (test code = CO2) 21 mEq/l 21-33 N ANION GAP (test code = GAP) 12 0-20 N GLUCOSE (test code = GLU) 176 mg/dL 77-141 H BLOOD UREA NITROGEN (test code = BUN) 13 mg/dL 7-25 N GLOMERULAR FILTRATION RATE (test [...] 0.6-1.3 N CALCIUM (test code = CA) 8.9 mg/dL 8.0-10.5 N [id number] 09:58:00* Test Item Value Reference Range Interpretation Comme nts PHOSPHOROUS (test code = PHOS) 3.5 MG/DL 2.5-4.9 N [id number] 09:58:00* Test Item Value Reference Range Interpretation Comme nts MAGNESIUM (test code = MAG) 2.09 mg/dL 1.6-2.6 N CALCIUM [id number] 09:58:00* Test Item Value Reference Range Interpretation Comme nts CALCIUM IONIZED (test code = MONICA) 1.08 MMOL/L 1.09-1.30 L CBC W/AUTO [id number] 09:44:00* Test Item Value Reference Range Interpretation Comme nts WHITE BLOOD CELL (test code = WBC) 7.5 x10 3/uL 4.5-11.0 N RED BLOOD CELL (test code = RBC) 5.48 x10 6/uL 4.00-5.60 N HEMOGLOBIN (test code = HGB) 15.8 g/dL 12.5-16.9 N HEMATOCRIT (test code = HCT) 48.0 % 37.5-50.7 N MEAN CELL VOLUME (test code = MCV) 87.6 fL 81.0-99.0 MEAN CELL HGB (test code = MCH) 28.8 pg 27.0-33.0 N MEAN CELL HGB CONCETRATION (test code = MCHC) 32.9 g/dL 33.0-37.0 L RED CELL DISTRIBUTION WIDTH CV (test code = RDW) 13.2 % 11.5-14.5 N RED CELL DISTRIBUTION WIDTH SD (test code = RDW-SD) 42.9 fL 37.0-54.0 N PLATELET COUNT (test code = PLT) 180 x10 3/uL 150-400 N MEAN PLATELET VOLUME (test c ode = MPV) 10.2 fL 7.0-9.0 H NEUTROPHIL % (test code = NT%) 54.0 % 56.0-77.0 L IMMATURE GRANULOCYTE % (test code = IG%) 0.4 % 0.0-2.0 N LYMPHOCYTE % (test code = LY%) 30.1 % 14.0-32.0 N MONOCYTE % (test code = MO%) 7.6 % 4.8-9.0 N EOSINOPHIL % (test code = EO%) 6.6 % 0.3-3.7 H BASOPHIL % (test code = BA%) 1.3 % 0.0-2.0 N NUCLEATED RBC % (test code = NRBC%) 0.0 % 0-0 N NEUTROPHIL # (test code = NT#) 4.07 x10 3/uL 2.0-7.6 N IMMATURE GRANULOCYTE # (test code = IG#) 0.03 x10 3/uL 0.00-0.03 N LYMPHOCYTE # (test code = LY#) 2.27 x10 3/uL 1.0-3.8 N MONOCYTE # (test code = MO#) 0.57 x10 3/uL 0.1-0.8 N EOSINOPHIL # (test code = EO#) 0.50 x10 3/uL 0.0-0.2 H BASOPHIL # (test code = BA#) 0.10 x10 3/uL 0.0-0.2 N NUCLEATED RBC # (test code = NRBC#) 0.00 x10 3/uL 0.0-0.1 N GLUCOSE [id number] 09:06:00* Test Item Value Reference Range Interpretation Comme nts GLUCOSE BEDSIDE (test code = GLUBED) 174 MG/DL 70-110 H Performed by cer tified twisting operator at [facility] THROMBOPLASTIN TIME [id number] 08:00:00* Test Item Value Reference Range Interpretation Comme nts THROMBOPLASTIN TIME PARTIAL (test code = PTT) 47.8 Seconds 25.0-39.5 H Therapeutic Rang e: 50.4 - 88.3 Seconds Effective 02/04/2019 GLUCOSE [id number] 21:16:00* Test Item Value Reference Range Interpretation Comme [facility] GLUCOSE BEDSIDE (test code = GLUBED) 187 MG/DL 70-110 H Performed by [facility] tified twisting operator at [facility] THROMBOPLASTIN TIME [id number] 20:32:00* Test Item Value Reference Range Interpretation Comme [facility] THROMBOPLASTIN TIME PARTIAL (test code = PTT) 38.7 Seconds 25.0-39.5 N Therapeutic Rang e: 50.4 - 88.3 Seconds Effective 02/04/2019 GLUCOSE [id number] 16:43:00* Test Item Value Reference Range Interpretation Comme [facility] GLUCOSE BEDSIDE (test code = GLUBED) 236 MG/DL 70-110 H Performed by [facility] tified twisting operator at [facility] PROTHROMBIN [id number] 13:22:00* Test Item Value Reference Range Interpretation Comme [facility] PROTHROMBIN TIME PATIENT (test code = PTP) 12.9 SECONDS 9.3-12.9 N INTERNATIONAL NORMAL RATIO (test code = INR) 1.2 0.8-1.2 N TARGET INR BY INDICATION Indication [...] Myocardial Infarction (to prevent recurrent infarct). COMMENTS: STAT if not done within 24 hours prior to initiation of heparinComment: infusionTHROMBOPLASTIN TIME [id number] 13:22:00* Test Item Value Reference Range Interpretation Comme [facility] THROMBOPLASTIN TIME PARTIAL (test code = PTT) 37.1 Seconds 25.0-39.5 N Therapeutic Rang e: 50.4 - 88.3 Seconds Effective 02/04/2019 COMMENTS: STAT if not done within 24 hours prior to initiation of heparinComment: infusionGLUCOSE [id number] 10:58:00* Test Item Value Reference Range Interpretation Comme nts GLUCOSE BEDSIDE (test code = GLUBED) 131 MG/DL 70-110 H Performed by cer yasir twisting operator at [facility] BASIC METABOLIC [id number] 06:15:00* Test Item Value Reference Range Interpretation Comme nts SODIUM (test code = NA) 137 mEq/L 134-147 N POTASSIUM (test code = K) 4.0 mEq/L 3.4-5.0 N CHLORIDE (test code = CL) 103 mEq/L 100-108 N CARBON DIOXIDE (test code = CO2) 28 mEq/l 21-33 ANION GAP (test code = GAP) 10 0-20 N GLUCOSE (test code = GLU) 283 mg/dL 77-141 H BLOOD UREA NITROGEN (test code = BUN) 21 mg/dL 7-25 N GLOMERULAR FILTRATION RATE (test [...] code = CA) 9.0 mg/dL 8.0-10.5 N [id number] 06:15:00* Test Item Value Reference Range Interpretation Comme nts PHOSPHOROUS (test code = PHOS) 3.8 MG/DL 2.5-4.9 N [id number] 06:15:00* Test Item Value Reference Range Interpretation Comme nts MAGNESIUM (test code = MAG) 1.98 mg/dL 1.6-2.6 N CALCIUM [id number] 06:15:00* Test Item Value Reference Range Interpretation Comme nts CALCIUM IONIZED (test code = MONICA) 1.15 MMOL/L 1.09-1.30 N CBC W/AUTO [id number] 05:21:00* Test Item Value Reference Range Interpretation Comme nts WHITE BLOOD CELL (test code = WBC) 7.2 x10 3/uL 4.5-11.0 N RED BLOOD CELL (test code = RBC) 5.41 x10 6/uL 4.00-5.60 N HEMOGLOBIN (test code = HGB) 15.7 g/dL 12.5-16.9 N HEMATOCRIT (test code = HCT) 45.7 % 37.5-50.7 N MEAN CELL VOLUME (test code = MCV) 84.5 fL 81.0-99.0 N MEAN CELL HGB (test code = MCH) 29.0 pg 27.0-33.0 N MEAN CELL HGB CONCETRATION (test code = MCHC) 34.4 g/dL 33.0-37.0 N RED CELL DISTRIBUTION WIDTH CV (test code = RDW) 13.2 % 11.5-14.5 N RED CELL DISTRIBUTION WIDTH SD (test code = RDW-SD) 40.8 fL 37.0-54.0 N PLATELET COUNT (test code = PLT) 188 x10 3/uL 150-400 N MEAN PLATELET VOLUME (test c ode = MPV) 10.2 fL 7.0-9.0 H NEUTROPHIL % (test code = NT%) 55.7 % 56.0-77.0 L IMMATURE GRANULOCYTE % (test code = IG%) 0.6 % 0.0-2.0 N LYMPHOCYTE % (test code = LY%) 29.3 % 14.0-32.0 N MONOCYTE % (test code = MO%) 7.0 % 4.8-9.0 N EOSINOPHIL % (test code = EO%) 6.3 % 0.3-3.7 H BASOPHIL % (test code = BA%) 1.1 % 0.0-2.0 N NUCLEATED RBC % (test code = NRBC%) 0.0 % 0-0 N NEUTROPHIL # (test code = NT#) 4.00 x10 3/uL 2.0-7.6 N IMMATURE GRANULOCYTE # (test code = IG#) 0.04 x10 3/uL 0.00-0.03 H LYMPHOCYTE # (test code = LY#) 2.10 x10 3/uL 1.0-3.8 N MONOCYTE # (test code = MO#) 0.50 x10 3/uL 0.1-0.8 N EOSINOPHIL # (test code = EO#) 0.45 x10 3/uL 0.0-0.2 H BASOPHIL # (test code = BA#) 0.08 x10 3/uL 0.0-0.2 N NUCLEATED RBC # (test code = NRBC#) 0.00 x10 3/uL 0.0-0.1 N GLUCOSE [id number] 19:59:00* Test Item Value Reference Range Interpretation Comme nts GLUCOSE BEDSIDE (test code = GLUBED) 173 MG/DL 70-110 H Performed by cer tified twisting operator at [facility] GLUCOSE [id number] 16:13:00* Test Item Value Reference Range Interpretation Comme nts GLUCOSE BEDSIDE (test code = GLUBED) 180 MG/DL 70-110 H Performed by cer tified twisting operator at [facility] GLUCOSE [id number] 11:33:00* Test Item Value Reference Range Interpretation Comme nts GLUCOSE BEDSIDE (test code = GLUBED) 140 MG/DL 70-110 H Performed by cer tified twisting operator at [facility] GLUCOSE [id number] 07:32:00* Test Item Value Reference Range Interpretation Comme nts GLUCOSE BEDSIDE (test code = GLUBED) 203 MG/DL 70-110 H Performed by cer tified twisting operator at [facility] BASIC METABOLIC [id number] 06:10:00* Test Item Value Reference Range Interpretation Comme nts SODIUM (test code = NA) 137 mEq/L 134-147 N POTASSIUM (test code = K) 4.4 mEq/L 3.4-5.0 N CHLORIDE (test code = CL) 108 mEq/L 100-108 N CARBON DIOXIDE (test code = CO2) 22 mEq/l 21-33 N ANION GAP (test code = GAP) 11 0-20 N GLUCOSE (test code = GLU) 198 mg/dL 77-141 H BLOOD UREA NITROGEN (test code = BUN) 20 mg/dL 7-25 N GLOMERULAR FILTRATION RATE (test [...] 0.6-1.3 N CALCIUM (test code = CA) 8.7 mg/dL 8.0-10.5 N [id number] 06:10:00* Test Item Value Reference Range Interpretation Comme nts PHOSPHOROUS (test code = PHOS) 3.9 MG/DL 2.5-4.9 N [id number] 06:10:00* Test Item Value Reference Range Interpretation Comme nts MAGNESIUM (test code = MAG) 2.21 mg/dL 1.6-2.6 N CALCIUM [id number] 06:10:00* Test Item Value Reference Range Interpretation Comme nts CALCIUM IONIZED (test code = MONICA) 1.14 MMOL/L 1.09-1.30 N CBC W/AUTO [id number] 05:35:00* Test Item Value Reference Range Interpretation Comme nts WHITE BLOOD CELL (test code = WBC) 9.3 x10 3/uL 4.5-11.0 N RED BLOOD CELL (test code = RBC) 5.62 x10 6/uL 4.00-5.60 H HEMOGLOBIN (test code = HGB) 16.2 g/dL 12.5-16.9 N HEMATOCRIT (test code = HCT) 48.1 % 37.5-50.7 N MEAN CELL VOLUME (test code = MCV) 85.6 fL 81.0-99.0 N MEAN CELL HGB (test code = MCH) 28.8 pg 27.0-33.0 N MEAN CELL HGB CONCETRATION (test code = MCHC) 33.7 g/dL 33.0-37.0 N RED CELL DISTRIBUTION WIDTH CV (test code = RDW) 13.3 % 11.5-14.5 N RED CELL DISTRIBUTION WIDTH SD (test code = RDW-SD) 41.6 fL 37.0-54.0 N PLATELET COUNT (test code = PLT) 205 x10 3/uL 150-400 N MEAN PLATELET VOLUME (test c ode = MPV) 10.9 fL 7.0-9.0 H NEUTROPHIL % (test code = NT%) 57.3 % 56.0-77.0 N IMMATURE GRANULOCYTE % (test code = IG%) 0.8 % 0.0-2.0 N LYMPHOCYTE % (test code = LY%) 27.5 % 14.0-32.0 N MONOCYTE % (test code = MO%) 7.7 % 4.8-9.0 N EOSINOPHIL % (test code = EO%) 5.7 % 0.3-3.7 H BASOPHIL % (test code = BA%) 1.0 % 0.0-2.0 N NUCLEATED RBC % (test code = NRBC%) 0.0 % 0-0 N NEUTROPHIL # (test code = NT#) 5.33 x10 3/uL 2.0-7.6 N IMMATURE GRANULOCYTE # (test code = IG#) 0.07 x10 3/uL 0.00-0.03 H LYMPHOCYTE # (test code = LY#) 2.55 x10 3/uL 1.0-3.8 N MONOCYTE # (test code = MO#) 0.71 x10 3/uL 0.1-0.8 N EOSINOPHIL # (test code = EO#) 0.53 x10 3/uL 0.0-0.2 H BASOPHIL # (test code = BA#) 0.09 x10 3/uL 0.0-0.2 N NUCLEATED RBC # (test code = NRBC#) 0.00 x10 3/uL 0.0-0.1 N GLUCOSE [id number] 20:36:00* Test Item Value Reference Range Interpretation Comme nts GLUCOSE BEDSIDE (test code = GLUBED) 178 MG/DL 70-110 H Performed by cer yasir twisting operator at [facility] [id number] 19:57:00* Test Item Value Reference Range Interpretation Comme nts MAGNESIUM (test code = MAG) 2.29 mg/dL 1.6-2.6 BASIC METABOLIC [id number] 18:29:00* Test Item Value Reference Range Interpretation Comme nts SODIUM (test code = NA) 139 mEq/L 134-147 N POTASSIUM (test code = K) 4.3 mEq/L 3.4-5.0 CHLORIDE (test code = CL) 109 mEq/L 100-108 H CARBON DIOXIDE (test code = CO2) 25 mEq/l 21-33 N ANION GAP (test code = GAP) 9 0-20 N GLUCOSE (test code = GLU) 246 mg/dL 77-141 H BLOOD UREA NITROGEN (test [...] 0.6-1.3 N CALCIUM (test code = CA) 8.5 mg/dL 8.0-10.5 N GLUCOSE [id number] 17:23:00* Test Item Value Reference Range Interpretation Comme nts GLUCOSE BEDSIDE (test code = GLUBED) 200 MG/DL 70-110 H Performed by cer tified twisting operator at [facility] GLUCOSE [id number] 08:05:00* Test Item Value Reference Range Interpretation Comme nts GLUCOSE BEDSIDE (test code = GLUBED) 184 MG/DL 70-110 H Performed by cer tified twisting operator at [facility] BASIC METABOLIC [id number] 05:45:00* Test Item Value Reference Range Interpretation Comme nts SODIUM (test code = NA) 142 mEq/L 134-147 N POTASSIUM (test code = K) 3.4 mEq/L 3.4-5.0 CHLORIDE (test code = CL) 116 mEq/L 100-108 H CARBON DIOXIDE (test code = CO2) 20 mEq/l 21-33 L ANION GAP (test code = GAP) 9 0-20 N GLUCOSE (test code = GLU) 216 mg/dL 77-141 H BLOOD UREA NITROGEN (test code = BUN) 12 mg/dL 7-25 N GLOMERULAR FILTRATION RATE (test [...] 0.6-1.3 N CALCIUM (test code = CA) 7.5 mg/dL 8.0-10.5 L [id number] 05:45:00* Test Item Value Reference Range Interpretation Comme nts PHOSPHOROUS (test code = PHOS) 3.5 MG/DL 2.5-4.9 N [id number] 05:45:00* Test Item Value Reference Range Interpretation Comme nts MAGNESIUM (test code = MAG) 1.80 mg/dL 1.6-2.6 N CBC W/AUTO [id number] 05:25:00* Test Item Value Reference Range Interpretation Comme nts WHITE BLOOD CELL (test code = WBC) 9.5 x10 3/uL 4.5-11.0 N RED BLOOD CELL (test code = RBC) 5.62 x10 6/uL 4.00-5.60 H HEMOGLOBIN (test code = HGB) 16.1 g/dL 12.5-16.9 N HEMATOCRIT (test code = HCT) 49.3 % 37.5-50.7 N MEAN CELL VOLUME (test code = MCV) 87.7 fL 81.0-99.0 N MEAN CELL HGB (test code = MCH) 28.6 pg 27.0-33.0 N MEAN CELL HGB CONCETRATION (test code = MCHC) 32.7 g/dL 33.0-37.0 L RED CELL DISTRIBUTION WIDTH CV (test code = RDW) 13.5 % 11.5-14.5 N RED CELL DISTRIBUTION WIDTH SD (test code = RDW-SD) 43.4 fL 37.0-54.0 N PLATELET COUNT (test code = PLT) 184 x10 3/uL 150-400 N MEAN PLATELET VOLUME (test c ode = MPV) 10.5 fL 7.0-9.0 H NEUTROPHIL % (test code = NT%) 65.0 % 56.0-77.0 N IMMATURE GRANULOCYTE % (test code = IG%) 0.5 % 0.0-2.0 N LYMPHOCYTE % (test code = LY%) 23.0 % 14.0-32.0 N MONOCYTE % (test code = MO%) 6.3 % 4.8-9.0 N EOSINOPHIL % (test code = EO%) 4.4 % 0.3-3.7 H BASOPHIL % (test code = BA%) 0.8 % 0.0-2.0 N NUCLEATED RBC % (test code = NRBC%) 0.0 % 0-0 N NEUTROPHIL # (test code = NT#) 6.17 x10 3/uL 2.0-7.6 N IMMATURE GRANULOCYTE # (test code = IG#) 0.05 x10 3/uL 0.00-0.03 H LYMPHOCYTE # (test code = LY#) 2.19 x10 3/uL 1.0-3.8 N MONOCYTE # (test code = MO#) 0.60 x10 3/uL 0.1-0.8 N EOSINOPHIL # (test code = EO#) 0.42 x10 3/uL 0.0-0.2 H BASOPHIL # (test code = BA#) 0.08 x10 3/uL 0.0-0.2 N NUCLEATED RBC # (test code = NRBC#) 0.00 x10 3/uL 0.0-0.1 N TROP-I HIGH [id number] 02:42:00* Test Item Value Reference Range Interpretation Comme nts TROP-I HIGH SENSITIVITY (test code = TROPIHS) 13 ng/L 0-54 N CAUTION: Units o f [...] URL. These results were obtained using [employer] IM TnIHreagent. Results from different methodologies should not becompared to one another as quantitative results and URLs mayvary by method. ADD-ON [id number] 02:42:00* Test Item Value Reference Range Interpretation Comme nts MAGNESIUM (test code = MAG) 2.00 mg/dL 1.6-2.6 N ADD-ON MAGCOMPREHENSIVE METABOLIC [id number] 22:12:00* Test Item Value Reference Range Interpretation Comme nts SODIUM (test code = NA) 140 mEq/L 134-147 N POTASSIUM (test code = K) 4.9 mEq/L 3.4-5.0 N CHLORIDE (test code = CL) 110 mEq/L 100-108 H CARBON DIOXIDE (test code = CO2) 29 mEq/l 21-33 N ANION GAP (test code = GAP) 6 0-20 N GLUCOSE (test code = GLU) 235 mg/dL 77-141 H BLOOD UREA NITROGEN (test code = BUN) 13 mg/dL 7-25 N GLOMERULAR FILTRATION RATE (test [...] code = CREAT) 1.0 mg/dL 0.6-1.3 N TOTAL PROTEIN (test code = PROT) 6.6 g/dL 6.4-8.2 N ALBUMIN (test code = ALB) 3.90 g/dL 3.4-5.0 N CALCIUM (test code = CA) 9.2 mg/dL 8.0-10.5 N BILIRUBIN TOTAL (test code = BILT) 0.70 mg/dL 0.0-1.0 N SGOT/AST (test code = AST) 32 IUnit/L 8-34 SGPT/ALT (test code = ALT) 20 IUnit/L 10-49 N ALKALINE PHOSPHATASE TOTAL (test code = ALKP) 67 IUnit/L 20-125 N [id number] 22:12:00* Test Item Value Reference Range Interpretation Comme nts PHOSPHOROUS (test code = PHOS) 3.6 MG/DL 2.5-4.9 N [id number] 22:12:00* Test Item Value Reference Range Interpretation Comme nts MAGNESIUM (test code = MAG) 1.97 mg/dL 1.6-2.6 N CALCIUM [id number] 22:12:00* Test Item Value Reference Range Interpretation Comme nts CALCIUM IONIZED (test code = MONICA) 1.14 MMOL/L 1.09-1.30 N CBC W/AUTO [id number] 21:46:00* Test Item Value Reference Range Interpretation Comme nts WHITE BLOOD CELL (test code = WBC) 9.9 x10 3/uL 4.5-11.0 N RED BLOOD CELL (test code = RBC) 5.65 x10 6/uL 4.00-5.60 H HEMOGLOBIN (test code = HGB) 16.4 g/dL 12.5-16.9 N HEMATOCRIT (test code = HCT) 49.0 % 37.5-50.7 N MEAN CELL VOLUME (test code = MCV) 86.7 fL 81.0-99.0 N MEAN CELL HGB (test code = MCH) 29.0 pg 27.0-33.0 N MEAN CELL HGB CONCETRATION (test code = MCHC) 33.5 g/dL 33.0-37.0 N RED CELL DISTRIBUTION WIDTH CV (test code = RDW) 13.6 % 11.5-14.5 N RED CELL DISTRIBUTION WIDTH SD (test code = RDW-SD) 43.0 fL 37.0-54.0 N PLATELET COUNT (test code = PLT) 202 x10 3/uL 150-400 N MEAN PLATELET VOLUME (test c ode = MPV) 10.4 fL 7.0-9.0 H NEUTROPHIL % (test code = NT%) 69.2 % 56.0-77.0 N IMMATURE GRANULOCYTE % (test code = IG%) 0.5 % 0.0-2.0 N LYMPHOCYTE % (test code = LY%) 20.0 % 14.0-32.0 N MONOCYTE % (test code = MO%) 5.6 % 4.8-9.0 N EOSINOPHIL % (test code = EO%) 3.8 % 0.3-3.7 H BASOPHIL % (test code = BA%) 0.9 % 0.0-2.0 N NUCLEATED RBC % (test code = NRBC%) 0.0 % 0-0 N NEUTROPHIL # (test code = NT#) 6.86 x10 3/uL 2.0-7.6 N IMMATURE GRANULOCYTE # (test code = IG#) 0.05 x10 3/uL 0.00-0.03 H LYMPHOCYTE # (test code = LY#) 1.99 x10 3/uL 1.0-3.8 N MONOCYTE # (test code = MO#) 0.56 x10 3/uL 0.1-0.8 N EOSINOPHIL # (test code = EO#) 0.38 x10 3/uL 0.0-0.2 H BASOPHIL # (test code = BA#) 0.09 x10 3/uL 0.0-0.2 N NUCLEATED RBC # (test code = NRBC#) 0.00 x10 3/uL 0.0-0.1 N DRUGS OF ABUSE SCREEN [id number] 18:59:00* Test Item Value Reference Range Interpretation Comme nts URN COCAINE (test code = COCAURN) NEGATIVE NEGATIVE URN CANNABINOIDS (test code = CANNABURN) NEGATIVE NEGATIVE URN AMPHETAMINE (test code = AMPHETURN) NEGATIVE NEGATIVE URN BARBITURATE (test code = BARBITURN) NEGATIVE NEGATIVE URN BENZODIAZEPINE (test code = BENZOURN) NEGATIVE NEGATIVE Cut-off v alue:200 ng/mL URN OPIATES (test code = OPIATURN) POSITIVE NEGATIVE A Cut-off value:20 00 ng/mL URN PHENCYCLIDINE (PCP) (test code = PHENCURN) NEGATIVE NEGATIVE Cutoffs:B arbiturates 200 ng/mLBenzodiazepines 200 ng/mLTHC Cannabinoids 50 ng/mLOpiates(Morphine) 2000 ng/mLAmphetamine 1000 ng/mLCocaine 300 ng/mLPCP phencyclidine 25 ng/mL Unconfirmed screening results shouldnot be used for non-medical purposes. UA RFLX MICR CULT IF [id number] 18:28:00* Test Item Value Reference Range Interpretation Comme nts UA COLOR (test code = COLU) YELLOW YEL/STRAW UA APPEARANCE (test code = APPU) CLEAR CLEAR UA GLUCOSE DIPSTICK (test code = DGLUU) 3+ NEGATIVE A UA BILIRUBIN DIPSTICK (test code = BILU) NEGATIVE NEGATIVE UA KETONE DIPSTICK (test code = KETU) NEGATIVE NEGATIVE UA SPECIFIC GRAVITY (test code = SGU) 1.008 1.005-1.030 N UA BLOOD DIPSTICK (test code = ABDI) NEGATIVE NEGATIVE UA PH DIPSTICK (test code = CHI) 5.0 5.0-7.0 N UA PROTEIN DIPSTICK (test code = PROU) NEGATIVE NEGATIVE UA UROBILINIOGEN DIPSTICK (test code = URO) 0.2 mg/dL 0.2-1.0 UA NITRITE DIPSTICK (test code = CESAR) NEGATIVE NEGATIVE UA LEUKOCYTE ESTERASE DIPSTICK (test code = LEUU) NEGATIVE NEGATIVE UA WBC (test code = WBCU) 0-3 WBC/HPF 0-3 UA RBC (test code = RBCU) NONE SEEN RBC/HPF 0-3 UA WBC NO REFLEX (test code = WBCUCL) 0-3 WBC/HPF 0-3 UA BACTERIA (test code = BACU) NONE SEEN /HPF NONE SEEN UA SQUAMOUS CELLS (test code = SQU) NONE SEEN /HPF NONE SEEN UA MUCUS (test code = MUCU) TRACE /LPF NONE SEEN Indication for culture: Suprapubic PainSpecimen Description: CLEAN CATCHTROP-I HIGH [id number] 17:54:00* Test Item Value Reference Range Interpretation Comme nts TROP-I HIGH SENSITIVITY (test code = TROPIHS) 15 ng/L 0-54 N CAUTION: Units o f [...] the URL. These results were obtained using [employer] TnIHreagent. Results from different methodologies should not becompared to one another as quantitative results and URLs mayvary by method. B-TYPE NATRIURETIC [id number] 13:24:00* Test Item Value Reference Range Interpretation Comme nts B-TYPE NATRIURETIC PEPTIDE ( test code = BNP) 66.0 PG/ML 0-100 N BASIC METABOLIC [id number] 13:18:00* Test Item Value Reference Range Interpretation Comme nts SODIUM (test code = NA) 138 mEq/L 134-147 N POTASSIUM (test code = K) 4.4 mEq/L 3.4-5.0 N CHLORIDE (test code = CL) 107 mEq/L 100-108 N CARBON DIOXIDE (test code = CO2) 28 mEq/l 21-33 N ANION GAP (test code = GAP) 8 0-20 N GLUCOSE (test code = GLU) 197 mg/dL 77-141 H BLOOD UREA NITROGEN (test code = BUN) 18 mg/dL 7-25 N GLOMERULAR FILTRATION RATE (test code = GFR) 79.8 90-95 L The Glomerular Filtration Rate is [...] <18 years. CREATININE (test code = CREAT) 1.1 mg/dL 0.6-1.3 N CALCIUM (test code = CA) 9.2 mg/dL 8.0-10.5 N HEPATIC FUNCTION [id number] 13:18:00* Test Item Value Reference Range Interpretation Comme nts TOTAL PROTEIN (test code = PROT) 6.9 g/dL 6.4-8.2 N ALBUMIN (test code = ALB) 4.20 g/dL 3.4-5.0 N BILIRUBIN TOTAL (test code = BILT) 0.60 mg/dL 0.0-1.0 N BILIRUBIN DIRECT (test code = BILD) 0.20 MG/DL 0.1-0.3 N BILIRUBIN INDIRECT (test cod e = BILIND) 0.40 MG/DL SGOT/AST (test code = AST) 18 IUnit/L 8-34 N SGPT/ALT (test code = ALT) 17 IUnit/L 10-49 N ALKALINE PHOSPHATASE TOTAL ( test code = ALKP) 79 IUnit/L 20-125 N [id number] 13:18:00* Test Item Value Reference Range Interpretation Comme nts LIPASE (test code = LIP) 37 U/L 13-57 N [id number] 13:18:00* Test Item Value Reference Range Interpretation Comme nts MAGNESIUM (test code = MAG) 2.04 mg/dL 1.6-2.6 N TSH REFLEX TO [id number] 13:18:00* Test Item Value Reference Range Interpretation Comme nts TSH REFLEX TO FT4 (test code = TSHREFLEX) 3.92 IU/mL 0.42-5.47 N [id number] 13:18:00* Test Item Value Reference Range Interpretation Comme nts CKMB (test code = CKMBT) 0.1 ng/mL 0-5.0 N CUT OFF:>5 ng/mL is suggested as being consistent with AMI. TROP-I HIGH [id number] 13:18:00* Test Item Value Reference Range Interpretation Comme nts TROP-I HIGH SENSITIVITY (test code = TROPIHS) 12 ng/L 0-54 N CAUTION: Units o f [...] the URL. These results were obtained using [employer] IM TnIHreagent. Results from different methodologies should not becompared to one another as quantitative results and URLs mayvary by method. CBC W/AUTO [id number] 13:00:00* Test Item Value Reference Range Interpretation Comme nts WHITE BLOOD CELL (test code = WBC) 10.9 x10 3/uL 4.5-11.0 N RED BLOOD CELL (test code = RBC) 5.90 x10 6/uL 4.00-5.60 H HEMOGLOBIN (test code = HGB) 17.1 g/dL 12.5-16.9 H HEMATOCRIT (test code = HCT) 51.1 % 37.5-50.7 H MEAN CELL VOLUME (test code = MCV) 86.6 fL 81.0-99.0 N MEAN CELL HGB (test code = MCH) 29.0 pg 27.0-33.0 N MEAN CELL HGB CONCETRATION (test code = MCHC) 33.5 g/dL 33.0-37.0 N RED CELL DISTRIBUTION WIDTH CV (test code = RDW) 13.6 % 11.5-14.5 N RED CELL DISTRIBUTION WIDTH SD (test code = RDW-SD) 43.8 fL 37.0-54.0 N PLATELET COUNT (test code = PLT) 217 x10 3/uL 150-400 N MEAN PLATELET VOLUME (test c ode = MPV) 10.3 fL 7.0-9.0 H NEUTROPHIL % (test code = NT%) 68.2 % 56.0-77.0 N IMMATURE GRANULOCYTE % (test code = IG%) 0.7 % 0.0-2.0 N LYMPHOCYTE % (test code = LY%) 19.3 % 14.0-32.0 N MONOCYTE % (test code = MO%) 8.3 % 4.8-9.0 N EOSINOPHIL % (test code = EO%) 2.8 % 0.3-3.7 N BASOPHIL % (test code = BA%) 0.7 % 0.0-2.0 N NUCLEATED RBC % (test code = NRBC%) 0.0 % 0-0 N NEUTROPHIL # (test code = NT#) 7.42 x10 3/uL 2.0-7.6 N IMMATURE GRANULOCYTE # (test code = IG#) 0.08 x10 3/uL 0.00-0.03 H LYMPHOCYTE # (test code = LY#) 2.10 x10 3/uL 1.0-3.8 N MONOCYTE # (test code = MO#) 0.90 x10 3/uL 0.1-0.8 H EOSINOPHIL # (test code = EO#) 0.31 x10 3/uL 0.0-0.2 H BASOPHIL # (test code = BA#) 0.08 x10 3/uL 0.0-0.2 N NUCLEATED RBC # (test code = NRBC#) 0.00 x10 3/uL 0.0-0.1 N - XR CHEST 1 [id number] 13:00:00 [facility] : 1970 Sex: M FAX: Margarito Ricks MD [place]: St: [facility] FAX: Jesusita Renner MD [phone] Name: CHARAN RESTREPO [facility] [place] : 1970 Age/S: 53/M [address] [place] [address] Unit #: [id number] Loc: [place] [address] Phys: Margarito Ricks MD Acct: [id number] Dis Date: Status: REG ER PHONE #: [phone] Exam Date: 12/27/2023 1246 FAX #: [phone] Reason: Chest Pain EXAMS: CPT CODE: [id number] XR CHEST 1 V [id number] EXAM: CHEST ONE VIEW INDICATION: Chest Pain LOCATION: B2 COMPARISON: December 27, 2023 TECHNIQUE: AP view of the chest FINDINGS: The heart size is normal. The lungs are clear bilaterally. The pulmonary vasculature is normal. No pneumothorax or pleural effusion is identified. The osseous structures are normal. IMPRESSION: No acute cardiopulmonary process. at 1300 Reported and signed by: Michelle Whitman M.D. CC: Margarito Ricks MD; Jesusita Osuna MD Technologist: Issac Van RT(R) Trnscrd Date/Time/By: 12/27/2023 (1300): By: [email or web address] PAGE 1 Signed Report- CTA HEART W CN ART/[id number] [facility] 1970 Sex: M Name: CHARAN RESTREPO [facility] Xiang Marti : 1970 Age/S: 53 / M [address] [place] [address] Blvd Unit #: [id number] Loc: [place] [address] Phys: Papo Mayfield MD Acct: [id number] Dis Date: 12/03/2023 Status: DIS IN PHONE #: [phone] Exam Date: 11/30/2023 1526 FAX #: [phone] Reason: edy for Exam: CAD, possible thrombus EXAMS: CPT CODE: [id number] CTA HEART W CN ART/GRAFTS 14374 Radiation Dose CTDIVOL = 62.42 (mGy): DLP = 630.17 (mGy-cm) PROCEDURE INFORMATION: Exam: CTA Heart And CoronaryArteries With Contrast Exam date and time: 11/30/2023 [...] 3D reconstructed images were created by the technologist.Radiation optimization: All CT scans at this facility use at least one of these dose optimization techniques: automated exposure control; mA and/or kV adjustment per patient size (includes targeted exams where dose is matched to clinical indication); or iterative reconstruction. Contrast material: ISOVUE 370; Contrast volume: 100 ml; Contrast route: INTRAVENOUS (IV); Pharmacological intervention:None. COMPARISON: CT CHEST W/O CONTRAST 11/27/2023 9:28 AM RADIATION DOSE METRICS: CTDI volume (mGy):62.42 Total DLP (mGy-cm): 630.17 FINDINGS: CORONARY: Left [...] greater than 70% luminal narrowing. Tandem stents arepresent throughout the proximal and mid LAD. There appears to be significant in stent restenosis within the mid LAD stent, although evaluation is suboptimal due to technical factors. Only a faint contrast column is identified through the distal LAD. Patent ramus intermedius. Left circumflex artery (LCx): There is mixed plaque within the PAGE 1 Signed Report (CONTINUED) Name: CHARAN RESTREPO [facility] Marti : 1970 Age/S: 53 / M [address] [place] [address] Blvd Unit #: [id number] Loc: [place] [address] Phys: Papo Mayfield MD Acct: [id number] Dis Date: 12/03/2023 Status: DIS IN PHONE #: [phone] Exam Date: 11/30/2023 1526 FAX #: [phone] Reason: edy for Exam: CAD, possible thrombus EXAMS: CPT CODE: [id number] CTA HEART W CN ART/GRAFTS 79982 (Continued) proximal segment resulting in minimal stenosis. The left circumflex artery gives off 2 patent obtuse marginal branches. Right coronary artery (RCA): Mixed plaque is present throughout the proximal and mid segments, resultingin minimal stenosis. The right coronary artery terminates [...] Not performed Lungs: Visualized lungs are unremarkable. Mediastinalspace: Limited views of the mediastinal space is unremarkable. IMPRESSION: 1. Focal noncalcified plaque at the ostium of the LAD results in severe stenosis, greater than 70% luminal narrowing. Thereis suggestion of significant in stent restenosis within a mid LAD stent, although evaluation is suboptimal due to technical factors. Further investigation with invasive coronary angiography is recommended. 2. Chronic, large LAD-distribution infarct with associated myocardial thinning and fatty metaplasia throughout the LV apex. Moderate-size LV thrombus is identified along the anterior wall whichmeasures 5.0 x 1.8 cm. 3. Minimal stenosis of the left circumflex artery and the right coronary artery. at 0455 Reported and signed by: Adis Khan M.D. PAGE 2 Signed Report (CONTINUED) Name: CHARAN RESTREPO [facility] : 1970 Age/S: 53 / M [address] [place] [address] Blvd Unit #: [id number] Loc: Fernando [id number] Phys: Papo Mayfield MD Acct: [id number] Dis Date: 12/03/2023 Status: DIS IN PHONE #: [phone] Exam Date: 11/30/2023 1526 FAX #: [phone] Reason: edy for Exam: CAD, possible thrombus EXAMS: CPT CODE: [id number] CTA HEART W CN ART/GRAFTS 24921 (Continued) CC: Papo Mayfield MD;Jesusita Osuna MD Technologist:Dejuan Sanchez Jr, RT(R)(CT) CTDI: DLP: Trnscb Date/Time: 12/04/2023 (454) [email or web address] Orig Print D/T: S: 12/04/2023 (0455) PAGE 3 Signed ReportGLUCOSE [id number] 11:58:00 * Test Item Value Reference Range Interpretation Comme nts GLUCOSE BEDSIDE (test code = GLUBED) 207 MG/DL 70-110 H Performed by cer tified twisting operator at [facility] GLUCOSE [id number] 08:12:00* Test Item Value Reference Range Interpretation Comme nts GLUCOSE BEDSIDE (test code = GLUBED) 228 MG/DL 70-110 H Performed by [facility] Krush twisting operator at [facility] CBC W/AUTO [id number] 06:16:00* Test Item Value Reference Range Interpretation [...] N COMMENTS: Daily while on HeparinBASIC METABOLIC [id number] 05:45:00* Test Item Value Reference Range Interpretation [...] code = CA) 9.1 mg/dL 8.0-10.5 N [id number] 05:45:00* Test Item Value Reference Range Interpretation Comme nts PHOSPHOROUS (test code = PHOS) 4.0 MG/DL 2.5-4.9 N [id number] 05:45:00* Test Item Value Reference Range Interpretation Comme nts MAGNESIUM (test code = MAG) 1.87 mg/dL 1.6-2.6 N CALCIUM [id number] 05:45:00* Test Item Value Reference Range Interpretation Comme nts CALCIUM IONIZED (test code = MONICA) 1.13 MMOL/L 1.09-1.30 N GLUCOSE [id number] 20:56:00* Test Item Value Reference Range Interpretation Comme nts GLUCOSE BEDSIDE (test code = GLUBED) 305 MG/DL 70-110 H Performed by cer tified twisting operator at [facility] GLUCOSE [id number] 16:35:00* Test Item Value Reference Range Interpretation Comme nts GLUCOSE BEDSIDE (test code = GLUBED) 228 MG/DL 70-110 H Performed by cer tified twisting operator at [facility] GLUCOSE [id number] 11:56:00* Test Item Value Reference Range Interpretation Comme nts GLUCOSE BEDSIDE (test code = GLUBED) 205 MG/DL 70-110 H Performed by cer tified twisting operator at [facility] GLUCOSE [id number] 07:36:00* Test Item Value Reference Range Interpretation Comme nts GLUCOSE BEDSIDE (test code = GLUBED) 233 MG/DL 70-110 H Performed by cer tified twisting operator at [facility] BASIC METABOLIC [id number] 03:40:00* Test Item Value Reference Range Interpretation [...] code = CA) 9.3 mg/dL 8.0-10.5 N [id number] 03:40:00* Test Item Value Reference Range Interpretation Comme nts PHOSPHOROUS (test code = PHOS) 3.7 MG/DL 2.5-4.9 N [id number] 03:40:00* Test Item Value Reference Range Interpretation Comme nts MAGNESIUM (test code = MAG) 1.95 mg/dL 1.6-2.6 N TROP-I HIGH [id number] 03:40:00* Test Item Value Reference Range Interpretation [...] URL. These results were obtained using Siemens AtellIntellione IM TnIHreagent. Results from different methodologies should not becompared to one another as quantitative results and URLs mayvary by method. CALCIUM [id number] 03:40:00* Test Item Value Reference Range Interpretation Comme nts CALCIUM IONIZED (test code = MONICA) 1.19 MMOL/L 1.09-1.30 N CBC W/AUTO [id number] 03:07:00* Test Item Value Reference Range Interpretation [...] 0.0-0.1 N COMMENTS: Daily while on HeparinGLUCOSE [id number] 21:11:00* Test Item Value Reference Range Interpretation Comme nts GLUCOSE BEDSIDE (test code = GLUBED) 247 MG/DL 70-110 H Performed by cer tified twisting operator at [facility] GLUCOSE [id number] 16:48:00* Test Item Value Reference Range Interpretation Comme nts GLUCOSE BEDSIDE (test code = GLUBED) 239 MG/DL 70-110 H Performed by [facility] tified twisting operator at [facility] GLUCOSE [id number] 10:48:00* Test Item Value Reference Range Interpretation Comme nts GLUCOSE BEDSIDE (test code = GLUBED) 196 MG/DL 70-110 H Performed by [facility] tified twisting operator at [facility] GLUCOSE [id number] 07:49:00* Test Item Value Reference Range Interpretation Comme nts GLUCOSE BEDSIDE (test code = GLUBED) 247 MG/DL 70-110 H Performed by [facility] tified twisting operator at [facility] BASIC METABOLIC [id number] 05:07:00* Test Item Value Reference Range Interpretation [...] code = CA) 9.0 mg/dL 8.0-10.5 N [id number] 05:07:00* Test Item Value Reference Range Interpretation Comme nts PHOSPHOROUS (test code = PHOS) 3.7 MG/DL 2.5-4.9 N [id number] 05:07:00* Test Item Value Reference Range Interpretation Comme nts MAGNESIUM (test code = MAG) 2.06 mg/dL 1.6-2.6 N CALCIUM [id number] 05:07:00* Test Item Value Reference Range Interpretation Comme nts CALCIUM IONIZED (test code = MONICA) 1.14 MMOL/L 1.09-1.30 N THROMBOPLASTIN TIME [id number] 04:55:00* Test Item Value Reference Range Interpretation Comme nts THROMBOPLASTIN TIME PARTIAL (test code = PTT) 27.8 Seconds 25.0-39.5 Therapeutic Rang e: 50.4 - 88.3 Seconds Effective 02/04/2019 CBC W/AUTO [id number] 04:48:00* Test Item Value Reference Range Interpretation [...] NO COMMENTS: Daily while on HeparinTHROMBOPLASTIN TIME [id number] 22:40:00* Test Item Value Reference Range Interpretation Comme [facility] THROMBOPLASTIN TIME PARTIAL (test code = PTT) 58.8 Seconds 25.0-39.5 H Therapeutic Rang e: 50.4 - 88.3 Seconds Effective 02/04/2019 GLUCOSE [id number] 22:19:00* Test Item Value Reference Range Interpretation Comme [facility] GLUCOSE BEDSIDE (test code = GLUBED) 340 MG/DL 70-110 H Performed by cer tified twisting operator at [facility] - XR CHEST 1 [id number] 13:44:00 [facility] XIANG MARTIName: CHARAN RESTREPO : 1970 Sex: M FAX: Viki Cartwright [place]: St: ADM FAX: Papo Stiles MD [phone] FAX: Jesusita Renner MD [phone] Name: CHARAN RESTREPO [facility] Neb[place] : 1970 Age/S: 53/M [address] [place] [address] Unit #: [id number] Loc: G.[address] [place] [address] Phys: Viki Cartwright APRNNP Acct: [id number] Dis Date: Status: ADM IN PHONE #: [phone] Exam Date: 11/30/2023 1248 FAX #: [phone] Reason: S/p intubati on EXAMS: CPT CODE: [id number] XR CHEST 1 V 38199 Dictation location: C4. CHEST, FRONTAL VIEW HISTORY: S/p intubation FINDINGS: Since 11/29/23, the endotracheal tube has been placed in good position at the clavicular heads. Right IJ central venous line in SVC. No pneumothorax. Cardiomegaly with mild pulmonary edema. The bones are intact. Several wires overlie the chest. IMPRESSION: Interval placement of endotracheal tube in right IJ central venous line in good position. No pneumothorax. Mild pulmonary edema. at 1344 Reported and signed by: Sarah Brizuela M.D. CC: Viki Cartwright; Papo Mayfield MD; Jesusita Osuna MD Technologist: Jane Reyna RT(R) Trnscrd Date/Time/By: 11/30/2023 (2434) : By: ArleneSP17 Orig Print D/T: S: 11/30/2023 (2733) PAGE 1 Signed AgitqbCHT-[id number] 11:20:00* Test Item Value Reference Range Interpretation Comme nts ACT-ISTAT (test code = ACTI) 131 SEC 74-137 N Performed by cer tified twisting operator at [facility] POC ARTERIAL BLOOD [id number] 11:15:00* Test Item Value Reference Range Interpretation Comme nts POC ARTERIAL BLOOD GAS PH (t est code = POCPHA) 7.270 7.35-7.45 LL POC ARTERIAL BLOOD GAS PCO2 (test code = QIHLYE1Z) 48.2 mmHg 35.0-45 H POC TCO2 ARTERIAL (test code = POCTCO2) 23.6 POC ARTERIAL BLOOD GAS PO2 ( test code = JTWYH6D) 349.7 mmHg 80-100.0 HH POC HCO3 ARTERIAL (test code = EJOAJH2E) 22.1 MMOL/L 22.0-26.0 N POC BASE EXCESS (test code = POCBEA) -5.1 MMOL/L -4.0-4.0 L POC O2 SATURATION (test code = POCO2S) 99.9 % 90-100 N BASIC METABOLIC [id number] 11:15:00* Test Item Value Reference Range Interpretation [...] = POCGLU) 214 MG/DL 70-110 H HEMOGLOBIN [id number] 11:15:00* Test Item Value Reference Range Interpretation Comme [facility] HEMOGLOBIN ABG (test code = HGB/ABG) 15.2 G/DL 12.5-16.9 N [id number] 11:15:00* Test Item Value Reference Range Interpretation Comme [facility] HEMATOCRIT (test code = HCT/ABG) 45 % 37.5-50.7 N POC LACTIC [id number] 11:15:00* Test Item Value Reference Range Interpretation Comme [facility] POC LACTIC ACID (test code = POCLAC) 0.5 mmol/l 0.9-1.7 L GLUCOSE [id number] 08:27:00* Test Item Value Reference Range Interpretation Comme [facility] GLUCOSE BEDSIDE (test code = GLUBED) 134 MG/DL 70-110 H Performed by cer tified twisting operator at [facility] PROTHROMBIN [id number] 06:53:00* Test Item Value Reference Range Interpretation Comme [facility] PROTHROMBIN TIME PATIENT (test code = PTP) [...] Infarction (to prevent recurrent infarct). THROMBOPLASTIN TIME [id number] 06:53:00* Test Item Value Reference Range Interpretation Comme [facility] THROMBOPLASTIN TIME PARTIAL (test code = PTT) 57.9 Seconds 25.0-39.5 H Therapeutic Rang e: 50.4 - 88.3 Seconds Effective 02/04/2019 BASIC METABOLIC [id number] 04:46:00* Test Item Value Reference Range Interpretation [...] code = CA) 9.1 mg/dL 8.0-10.5 N [id number] 04:46:00* Test Item Value Reference Range Interpretation Comme nts PHOSPHOROUS (test code = PHOS) 3.6 MG/DL 2.5-4.9 N [id number] 04:46:00* Test Item Value Reference Range Interpretation Comme nts MAGNESIUM (test code = MAG) 2.06 mg/dL 1.6-2.6 N CALCIUM [id number] 04:46:00* Test Item Value Reference Range Interpretation Comme nts CALCIUM IONIZED (test code = MONICA) 1.14 MMOL/L 1.09-1.30 N CBC W/AUTO [id number] 04:25:00* Test Item Value Reference Range Interpretation [...] N COMMENTS: Daily while on HeparinTHROMBOPLASTIN TIME [id number] 00:44:00* Test Item Value Reference Range Interpretation Comme nts THROMBOPLASTIN TIME PARTIAL (test code = PTT) 78.6 Seconds 25.0-39.5 H Therapeutic Rang e: 50.4 - 88.3 Seconds Effective 02/04/2019 GLUCOSE [id number] 20:57:00* Test Item Value Reference Range Interpretation Comme nts GLUCOSE BEDSIDE (test code = GLUBED) 267 MG/DL 70-110 H Performed by cer yasir twisting operator at [facility] COMPREHENSIVE METABOLIC [id number] 18:46:00* Test Item Value Reference Range Interpretation [...] = ALKP) 52 IUnit/L 20-125 N PROTHROMBIN [id number] 18:36:00* Test Item Value Reference Range Interpretation [...] Infarction (to prevent recurrent infarct). THROMBOPLASTIN TIME [id number] 18:36:00* Test Item Value Reference Range Interpretation Comme nts THROMBOPLASTIN TIME PARTIAL (test code = PTT) 79.3 Seconds 25.0-39.5 H Therapeutic Rang e: 50.4 - 88.3 Seconds Effective 02/04/2019 CBC W/AUTO [id number] 18:25:00* Test Item Value Reference Range Interpretation [...] NRBC#) 0.00 x10 3/uL 0.0-0.1 N GLUCOSE [id number] 17:07:00* Test Item Value Reference Range Interpretation Comme nts GLUCOSE BEDSIDE (test code = GLUBED) 192 MG/DL 70-110 H Performed by melvin caputo at [facility] - XR CHEST 1 [id number] 11:18:00 [facility] 1970 Sex: M FAX: Papo Stiles MD [phone] [place]: St: ADM FAX: Jesusita Renner MD [phone] ------- Name: CHARAN RESTREPO [facility] : 1970 Age/S: 53/M [address] [place] [address] Unit #: [id number] Loc: G.[address] [place], [place] [id number] Phys: Papo Mayfield MD Acct: [id number] Dis Date: Status: ADM IN PHONE #: [phone] Exam Date: 11/29/2023 0837 FAX #: [phone] Reason: Cardiac Surgery Pre Op EXAMS: CPT CODE: [id number] XR CHEST 1 V 40037 Location: H77 EXAM: - XR CHEST 1 V DATE: [...] By: ArleneMOP Orig Print D/T: S: 11/29/2023 (7532) PAGE 1 Signed Report GLUCOSE [id number] 08:28:00* Test Item Value Reference Range Interpretation Comme nts GLUCOSE BEDSIDE (test code = GLUBED) 169 MG/DL 70-110 H Performed by melvin caputo at [facility] B-TYPE NATRIURETIC [id number] 06:04:00* Test Item Value Reference Range Interpretation Comme nts B-TYPE NATRIURETIC PEPTIDE ( test code = BNP) 76.0 PG/ML 0-100 N COMPREHENSIVE METABOLIC [id number] 05:51:00* Test Item Value Reference Range Interpretation [...] = LDL) 61.0 mg/dL 0-100 N <100 HAHDTMO17 0-129 NEAR OPTIMAL/ABOVE [id number] RYPOFCBQIA326-183 HIGH>OG=510 VERY HIGH*Guidelines provided by the National Cholesterol EducationProgram Adult Treatment Panel III HGBA1C%2023-11-29 05:44:00* Test Item Value Reference Range Interpretation Comme nts HGBA1C% (test code = HGBA1C%) 8.8 %A1C 4.8-6.0 H PROTHROMBIN [id number] 05:43:00* Test Item Value Reference Range Interpretation [...] Infarction (to prevent recurrent infarct). THROMBOPLASTIN TIME [id number] 05:43:00* Test Item Value Reference Range Interpretation Comme nts THROMBOPLASTIN TIME PARTIAL (test code = PTT) 75.5 Seconds 25.0-39.5 H Therapeutic Rang e: 50.4 - 88.3 Seconds Effective 02/04/2019 PLT RESPONSE TO [id number] 05:34:00* Test Item Value Reference Range Interpretation [...] be rejected by our instrumentation. CBC W/AUTO [id number] 05:28:00* Test Item Value Reference Range Interpretation [...] 3/uL 0.0-0.1 N COVID 19 Asymptomatic IH [id number] 02:20:00* Test Item Value Reference Range Interpretation [...] perform moderate, high or waivedcomplexity tests. GLUCOSE [id number] 22:14:00* Test Item Value Reference Range Interpretation Comme nts GLUCOSE BEDSIDE (test code = GLUBED) 200 MG/DL 70-110 H Performed by [facility] Krush twisting operator at [facility] THROMBOPLASTIN TIME [id number] 18:32:00* Test Item Value Reference Range Interpretation Comme nts THROMBOPLASTIN TIME PARTIAL (test code = PTT) 58.4 Seconds 25.0-39.5 H Therapeutic Rang e: 50.4 - 88.3 Seconds Effective 02/04/2019 GLUCOSE [id number] 17:20:00* Test Item Value Reference Range Interpretation Comme nts GLUCOSE BEDSIDE (test code = GLUBED) 145 MG/DL 70-110 H Performed by [facility] Krush twisting operator at [facility] THROMBOPLASTIN TIME [id number] 12:39:00* Test Item Value Reference Range Interpretation Comme nts THROMBOPLASTIN TIME PARTIAL (test code = PTT) 67.5 Seconds 25.0-39.5 H Therapeutic Rang e: 50.4 - 88.3 Seconds Effective 02/04/2019 GLUCOSE [id number] 11:29:00* Test Item Value Reference Range Interpretation Comme nts GLUCOSE BEDSIDE (test code = GLUBED) 225 MG/DL 70-110 H Performed by [facility] Krush twisting operator at [facility] - US EXTREM NON VASC [id number] 09:13:00 [facility] XIANG REXFORDName: CHARAN RESTREPO : 1970 Sex: M Name: CHARAN RESTREPO [facility] Xiang Marti : 1970 Age/S: 53 / M [address] [place] [address] Blvd Unit #: [id number] Loc: [place] [address] Phys: Dia Baird Acct: [id number] Dis Date: Status: ADMIN PHONE #: [phone] Exam Date: 11/27/2023 1616 FAX #: [phone] Reason: Cardiac Surgery PreOp EXAMS: CPT CODE: [id number] US EXTREM NON VASC COMP 17929 EXAM: - US EXTREM NON VASC COMP LOCATION: C4 HISTORY: Cardiac Surgery Pre Op COMPARISON: None available. TECHNIQUE: Grayscale B-mode sonographic images of the bilateral lower extremities were obtained. FINDINGS: The right greater saphenousvein is compressible consistent with patency. It measures approximately 2 mm in diameter at a depthranging from 2 mm to 9 mm. The left greater saphenous vein is compressible consistent with patency.It measures approximately 1 mm to 3 mm in diameter at a depth ranging from 2 mm to 8 mm. IMPRESSION: Patent bilateral greater saphenous veins. at 0913 Reported and signed by: Yamilka Montaño M.D. CC: Papo Mayfield MD; Dia Baird; Jesusita Osuna MD Technologist: Kristel Farris Trnsdb Date/Time: 11/28/2023 (09) ArleneJJYOrig Print D/T: S: 11/28/2023 (0916) Probe: PAGE 1 Signed ReportGLUCOSE [id number] 07:47:00 * Test Item Value Reference Range Interpretation Comme nts GLUCOSE BEDSIDE (test code = GLUBED) 169 MG/DL 70-110 H Performed by cer yasir twisting operator at [facility] PLT RESPONSE TO [id number] 06:12:00* Test Item Value Reference Range Interpretation [...] HGBA1C%) 8.7 %A1C 4.8-6.0 H COMPREHENSIVE METABOLIC [id number] 05:53:00* Test Item Value Reference Range Interpretation [...] ALKP) 66 IUnit/L 20-125 N THROMBOPLASTIN TIME [id number] 05:48:00* Test Item Value Reference Range Interpretation Comme nts THROMBOPLASTIN TIME PARTIAL (test code = PTT) 52.1 Seconds 25.0-39.5 H Therapeutic Rang e: 50.4 - 88.3 Seconds Effective 02/04/2019 COMMENTS: DRAW PTT 6 HOURS AFTER INITIATION OF HEPARINCBC W/AUTO [id number] 05:38:00* Test Item Value Reference Range Interpretation [...] N COMMENTS: Daily while on HeparinTHROMBOPLASTIN TIME [id number] 00:16:00* Test Item Value Reference Range Interpretation Comme [facility] THROMBOPLASTIN TIME PARTIAL (test code = PTT) 47.4 Seconds 25.0-39.5 H Therapeutic Rang e: 50.4 - 88.3 Seconds Effective 02/04/2019 GLUCOSE [id number] 21:43:00* Test Item Value Reference Range Interpretation Comme [facility] GLUCOSE BEDSIDE (test code = GLUBED) 276 MG/DL 70-110 H Performed by cer tified twisting operator at [facility] UA RFLX MICR CULT IF [id number] 18:58:00* Test Item Value Reference Range Interpretation [...] culture: Dysuria/FrequencySpecimen Description: CLEAN CATCH THROMBOPLASTIN TIME [id number] 18:47:00* Test Item Value Reference Range Interpretation Comme nts THROMBOPLASTIN TIME PARTIAL (test code = PTT) 42.1 Seconds 25.0-39.5 H Therapeutic Rang e: 50.4 - 88.3 Seconds Effective 02/04/2019 GLUCOSE [id number] 18:26:00* Test Item Value Reference Range Interpretation Comme nts GLUCOSE BEDSIDE (test code = GLUBED) 212 MG/DL 70-110 H Performed by melvin cooley twisting operator at [facility] - DUP EXTRACRANIAL [id number] 16:29:00 [facility] : 1970 Sex: M Name: CHARAN RESTREPO [facility] [place] : 1970 Age/S: 53 / M [address] [place] [address] Blvd Unit #: [id number] Loc: [place] [address] Phys: Dia Baird Acct: [id number] Dis Date: Status: ADMIN PHONE #: [phone] Exam Date: 11/27/2023 1615 FAX #: [phone] Reason: Cardiac Surgery PreOp EXAMS: CPT CODE: [id number] DUP EXTRACRANIAL BRENDA 72814 EXAM: Carotid ultrasound Dictation location: E5 INDICATION: Cardiac surgery preop COMPARISON: None DISCUSSION: Cerrato scale, color Doppler, andspectral waveform analysis images of the extracranial carotid vessels were performed. Right side: Plaque: None. Peak systolic velocities: CCA: 78 cm/s ICA: 54cm/s ECA: 85 cm/s ICA to CCA ratio: 0.69 V ertebral artery: Antegrade flow Left side: Plaque: None. Peak systolic velocities: CCA: 100 cm/s ICA: 79 cm/s ECA: 110.5 cm/s ICA to CCA ratio: 0.79 Vertebral artery: Antegrade flow IMPRESSION: 1. Normal carotid duplex ultrasound. 2. Antegrade vertebral artery flow bilaterally. at 1629 Reported and signed by: Landen Roper M.D. CC: Papo Mayfield MD; Dia Baird; Jesusita Osuna MD Technologist: Kristel Farris Trnscb Date/Time: 11/27/2023 (162) Chayo.BC0 Orig Print D/T: S: 11/27/2023 (2443) Probe: PAGE 1 Signed Report- XR CHEST 1 [id number] 16:16:00 [facility] : 1970 Sex: M FAX: Papo Stiles MD [phone] [place]: St: [facility] FAX: Dia Bess FAX: Jesusita Renner MD [phone] Name: CHARAN RESTREPO [facility] : 1970 Age/S: 53/M [address] [place] [address] Unit #: [id number] Loc: G.[address] [place], [place] [id number] Phys: Dia Baird Physic Acct: [id number] Dis Date: Status: ADM IN PHONE #: [phone] Exam Date: 11/27/2023 [facility] FAX #: [phone] Reason: Cardiac Surgery Pre Op EXAMS: CPT CODE: [id number] XR CHEST 1 V 64463 Dictation location: C4. CHEST, FRONTAL VIEW HISTORY: Cardiac Surgery Pre Op FINDINGS: Since 03/18/23, the lungs remain clear. Theheart size is mildly enlarged. Coronary artery stents. Minimal thoracic spondylosis. Several wires overlie the chest. IMPRESSION: Cardiomegaly without pulmonary edema. at 1616 Reported and signed by: Sarah Brizuela M.D. CC: Papo Mayfield MD; Dia Baird; Jesusita Osuna MD Technologist: Anastasia Poe RT(R) Trnscrd Date/Time/By: 11/27/2023 (5526) : By: [email or web address] Orig Print D/T: S: 11/27/2023 (8476) PAGE1 Signed ReportTROP-I HIGH SENSITIVITY 2023-11-27 11:52:00* Test Item Value Reference Range Interpretation Comme [...] URL. These results were obtained using Siemens AtellIntellione IM TnIHreagent. Results from different methodologies should not becompared to one another as quantitative results and URLs mayvary by method. GLUCOSE [id number] 11:49:00* Test Item Value Reference Range Interpretation Comme nts GLUCOSE BEDSIDE (test code = GLUBED) 248 MG/DL 70-110 H Performed by melvin caputo at [facility] PROTHROMBIN [id number] 11:38:00* Test Item Value Reference Range Interpretation [...] be rejected by our instrumentation. CBC W/AUTO [id number] 11:24:00* Test Item Value Reference Range Interpretation [...] HOURS- CT CHEST W/O CONTRAST 2023-11-27 10:24:00 [facility] XIANG REXFORDName: CHARAN RESTREPO : 1970 Sex: M Name: CHARAN RESTREPO [facility] Xiang Marti : 1970 Age/S: 53 / M [address] [place] [address] Blvd Unit #: [id number] Loc: [place] [address] Phys: Dia Baird Acct: [id number] Dis Date: Status: ADM IN PHONE #: [phone] Exam Date: 11/27/2023 0943 FAX #: [phone] Reason: Cardiac Surgery Pre Op EXAMS: CPT CODE: [id number] CT CHEST W/O CONTRAST 75690 EXAM: Chest CT without contrast Dictation location: E5 INDICATION: Cardiac surgery preop COMPARISON: Chest x-ray on 03/18/2023 TECHNIQUE: Helical CT of the chest was performed without IV contrast. 1 mm axial and coronal and sagittal reformatted images were obtained. Unless otherwise specified, incidental findings do not require dedicated imaging follow-up. DISCUSSION: Lungs and airways: Subtle diffuse centrilobular ground glass changesare seen throughout the lungs, such as on axial image 54 of series 3. A 3 mm superior segment left lower lobe nodule is seen on axial image 93. A noncalcified 3 mm left upper lobe nodule is seen on axial image 101 of series 3. A noncalcified 4 mm right upper lobe nodule is seen on axial image 87 ofseries 3. No consolidation, pleural effusion, or pneumothorax [...] Name: CHARAN RESTREPO [facility] : 1970 Age/S: 53 / M [address] [place] [address] BlvdUnit #: [id number] Loc: [place] [address] Phys: Dia Baird Physic Acct: [id number] Dis Date:Status: ADM IN PHONE #: [phone] Exam Date: 11/27/2023942 FAX #: [phone] Reason: Cardiac Surgery Pre Op EXAMS: CPT CODE: [id number] CT CHEST W/O CONTRAST 31944 (Continued) ventriculomegaly,consistent with CHF, and questionable mural thrombus at the left ventricular apex; echocardiogram correlation should be considered. This was discussed by phone with the ordering clinician ROCIO simmons at 10:23 AM on 11/27/2023. 2. Subtle diffuse centrilobular groundglass nodules throughout the lungs. This is consistent with an inflammatory process, and could potentially be seen with smoking or environmental exposure. 3. There are 3 noncalcified nodules, [...] (1024) t.SDR.BC0 Orig Print D/T: S: 11/27/2023 (0293) PAGE 2 Signed ReportGLUCOSE [id number] 07:44:00* Test Item Value Reference Range Interpretation Comme nts GLUCOSE BEDSIDE (test code = GLUBED) 139 MG/DL 70-110 H Performed by cer yasir twisting operator at [facility] B-TYPE NATRIURETIC [id number] 07:32:00* Test Item Value Reference Range Interpretation Comme nts B-TYPE NATRIURETIC PEPTIDE ( test code = BNP) 93.0 PG/ML 0-100 N HGBA1C%2023-11-27 07:10:00* Test Item Value Reference Range Interpretation Comme nts HGBA1C% (test code = HGBA1C%) 8.8 %A1C 4.8-6.0 H COMPREHENSIVE METABOLIC [id number] 07:08:00* Test Item Value Reference Range Interpretation [...] = LDL) 79.0 mg/dL 0-100 N <100 CBJSLNE53 0-129 NEAR OPTIMAL/ABOVE [id number] GGWZHEKMLC416-514 HIGH>RB=750 VERY HIGH*Guidelines provided by the National Cholesterol EducationProgram Adult Treatment Panel III CBC W/AUTO [id number] 06:59:00* Test Item Value Reference Range Interpretation [...] NRBC#) 0.00 x10 3/uL 0.0-0.1 N PROTHROMBIN [id number] 06:53:00* Test Item Value Reference Range Interpretation [...] Infarction (to prevent recurrent infarct). THROMBOPLASTIN TIME [id number] 06:53:00* Test Item Value Reference Range Interpretation Comme [facility] THROMBOPLASTIN TIME PARTIAL (test code = PTT) 32.7 Seconds 25.0-39.5 N Therapeutic Rang e: 50.4 - 88.3 Seconds Effective 02/04/2019 GLUCOSE BEDSIDE [id number] 10:20:00* Test Item Value Reference Range Interpretation Comme [facility] GLUCOSE BEDSIDE TESTING (shanna t code = GLUBED) 215 MG/DL 60-99 H BASIC METABOLIC [id number] 07:35:00* Test Item Value Reference Range Interpretation [...] code = CA) 8.6 MG/DL 8.4-10.2 N [id number] 07:35:00* Test Item Value Reference Range Interpretation Comme nts MAGNESIUM (test code = MAG) 2.0 MG/DL 1.6-2.3 N GLUCOSE BEDSIDE [id number] 06:26:00* Test Item Value Reference Range Interpretation Comme nts GLUCOSE BEDSIDE TESTING (shanna t code = GLUBED) 187 MG/DL 60-99 H GLUCOSE BEDSIDE [id number] 04:13:00* Test Item Value Reference Range Interpretation Comme nts GLUCOSE BEDSIDE TESTING (shanna t code = GLUBED) 149 MG/DL 60-99 H GLUCOSE BEDSIDE [id number] 23:41:00* Test Item Value Reference Range Interpretation Comme nts GLUCOSE BEDSIDE TESTING (shanna t code = GLUBED) 162 MG/DL 60-99 H GLUCOSE BEDSIDE [id number] 21:11:00* Test Item Value Reference Range Interpretation Comme nts GLUCOSE BEDSIDE TESTING (shanna t code = GLUBED) 203 MG/DL 60-99 H GLUCOSE BEDSIDE [id number] 19:59:00* Test Item Value Reference Range Interpretation Comme nts GLUCOSE BEDSIDE TESTING (shanna t code = GLUBED) 219 MG/DL 60-99 H GLUCOSE BEDSIDE [id number] 19:59:00* Test Item Value Reference Range Interpretation Comme nts GLUCOSE BEDSIDE TESTING (shanna t code = GLUBED) 253 MG/DL 60-99 H GLUCOSE BEDSIDE [id number] 19:58:00* Test Item Value Reference Range Interpretation Comme nts GLUCOSE BEDSIDE TESTING (shanna t code = GLUBED) 247 MG/DL 60-99 H HEPATIC FUNCTION [id number] 11:51:00* Test Item Value Reference Range Interpretation Comme nts TOTAL PROTEIN (test code = PROT) 6.5 G/DL 6.2-7.6 N Ortho Clinical D iagnostic has made us aware of newinformation regarding the potential interference ofEltrombopag (a bone marrow stimulant used to treatthrombocytonmenia and aplastic anemia) with specific assayson the [employer] 5600 of which Total Protein is one [...] : add on to blood in labURINALYSIS [id number] 04:46:00* Test Item Value Reference Range Interpretation [...] NEGATIVE SOURCE OF URINE: CLEAN CATCHGLYCOSYLATED HEMOGLOBIN [id number] 04:06:00* Test Item Value Reference Range Interpretation [...] MBG) 220 MG/DL 70-110 H BASIC METABOLIC [id number] 03:58:00* Test Item Value Reference Range Interpretation [...] code = CA) 8.5 MG/DL 8.4-10.2 N [id number] 03:58:00* Test Item Value Reference Range Interpretation Comme nts MAGNESIUM (test code = MAG) 2.3 MG/DL 1.6-2.3 N CBC W/AUTO [id number] 03:45:00* Test Item Value Reference Range Interpretation [...] code = NRBC#) 0.00 K/mm3 0.0-0.1 N [id number] 01:08:00* Test Item Value Reference Range Interpretation Comme nts TROPONIN-I (test code = TROPI) 3.570 NG/ML 0.012-0.033 HH CALLED TO YESI Cervantes & READBACK ON 03/19/23 AT 0107 BY Barrett Wang [id number] 22:08:00* Test Item Value Reference Range Interpretation Comme nts TROPONIN-I (test code = TROPI) 3.700 NG/ML 0.012-0.033 HH CALLED TO VLADIMIR ROSA & READBACK ON 03/18/23 AT 2202 BY Michael Umana GLUCOSE BEDSIDE [id number] 20:24:00* Test Item Value Reference Range Interpretation Comme nts GLUCOSE BEDSIDE TESTING (shanna t code = GLUBED) 211 MG/DL 60-99 H LIPOPROTEIN LDL [id number] 19:36:00* Test Item Value Reference Range Interpretation Comme [facility] LIPOPROTEIN LDL DIRECT (test code = LDLDIR) 112 mg/dL 100-129 N ========= R eference Interval: mg/dL mmol/L -----Optimal <100 <2.6Near/above optimal 100-129 2.6-3.3Borderline High 130-159 3.4-4.1High 160-189 4.1-4.9Very High >=190 >=4.9========= This LDL result is a direct measurement.======== = [id number] 19:36:00* Test Item Value Reference Range Interpretation Comme nts TROPONIN-I (test code = TROPI) 3.780 NG/ML 0.012-0.033 HH CALLED TO CHANTAL Burger& READBACK ON 03/18/23 AT 1849 BY Michael Umana - XR CHEST [id number] 19:06:00 [facility] 1970 Sex: M Patient Name: CHARAN RESTREPO Unit No: [id number] EXAMS: CPT CODE: [id number] XR CHEST 1V 32610 LOCATION: Q15 HISTORY: 52-year-old male, history of [...] Reported and signed by: Hima Jaime M.D. CC:Jesusita Osuna MD; Suzette Wang NP Technologist: River Ann RT Transcrpt Date/Tm/Trnsp: 03/18/2023 (1905) Chayo.RLA2 Orig Print D/T: S: 03/18/2023 (1908) [facility] NAME: CHARAN RESTREPO [address] PHYS: [email or web address] [place] [address] : 1970 AGE: 52 SEX: M LOC: Z.I13 A PHONE #: [phone] EXAM DATE: 03/18/2023 STATUS: ADM IN FAX #: RADIOLOGY NO: PAGE 1 Signed ReportNT PRO-BRAIN [...] other causes* of NT-proBNP elevation. GLYCOSYLATED HEMOGLOBIN [id number] 18:36:00* Test Item Value Reference Range Interpretation [...] CK) 274 UNITS/L 55-170 H COMPREHENSIVE METABOLIC [id number] 18:30:00* Test Item Value Reference Range Interpretation [...] 6.1 G/DL 6.2-7.6 L Ortho Clinical D iaZite has made us aware of newinformation regarding [...] code = ALKP) 59 UNITS/L 38-126 N [id number] 18:30:00* Test Item Value Reference Range Interpretation Comme nts PHOSPHOROUS (test code = PHOS) 3.8 MG/DL 2.5-4.5 N [id number] 18:30:00* Test Item Value Reference Range Interpretation Comme nts MAGNESIUM (test code = MAG) 2.3 MG/DL 1.6-2.3 N CBC W/O [id number] 18:09:00* Test Item Value Reference Range Interpretation [...] code = NRBC#) 0.00 K/mm3 0.0-0.1 N [id number] 16:25:00* Test Item Value Reference Range Interpretation Comme nts ACT-ISTAT (test code = ACTI) 275 SEC 74-137 H [id number] 15:43:00* Test Item Value Reference Range Interpretation Comme nts ACT-ISTAT (test code = ACTI) 281 SEC 74-137 H Notes Date/Time Note Provider Source 2024-01-08 21:14:00 [id number]:14:00 [facility] ([facility])Hospitalist Discharge SummaryREPORT#:[id number] REPORT STATUS: SignedREPORT INITIALIZATION DATE:01/08/24 TIME: 2113 PATIENT: CHARAN RESTREPO UNIT #: [id number]#: [id number] [address] [birth year] AGE: 53 SEX: M ATTEND: Young,Jemal Jesenia MDADM AUTHOR: Stella Lucia MDREPT SERVICE DT/TIME: 01/08/242113* ALL edits or amendments must be made on the electronic/computer document * General InformationDischarge date: 01/08/24Discharge diagnosis:lv thrombus Hospital course: 53 yrs old male with Pmhx CAD, DM II,Life vest, left atrial clot( on AC Eliquis)and tobacco abuse who presented to outside ED at [facility] in [place] for c/o chest pain and shortness of breath. Patient wears life vest for low EF 30-40% (Echo 11/29/23) but reported that the Life veststopped firing to correct his arrythmias. Patient also reported increased shortness of breath and arrythmias that has been on going for the last few weeks.He was found to have non-sustained ventricular tachycardia, he was given Amiodarone 150mg bolus over 10 minutes and then started on amiodarone drip @ 1mg/min and was transfered to this facility Via EMS for further evaluation and care. Patient when he arrive at this facility , his heart rate is controlled, EKG done showed normal sinus rhythm. Patient has been on Eliquis because he was told that he has a blood clot in the left atrium and the plan was to dissolve the blood clot before CABG that was supposed to be performed. Lab workup showed wbc 9.9, H/H 16.4/49.0, Plt 202,Na+140, K+ 4.9, CL 110H, CO2 29, Bun 13 , Cr 1,0Glu 235H. Non-sustained V-tachy, on Amiodarone dripChest pain 2/2 aboveLife vest stopped firingTobacco abuseDiabetic Mellitus II with hyperglycemiaHx Left atrial clot (on Eliquis)Hx Diabetes Mellitus IIHx CAD PlanAdmit to CCUConsult CardiologyConsult Critical careContinous Telemetry monitoring - to assess for any arrythmiasEcho pending : Last Echo 11/29/23-EF 30-34%, grade 1 diastolic dysfunctionVital signs as per unit protocolAmiodarone drip @ 0.5mg/hrNPO for nowOptimize blood glucose, Hold Lantus Insulin while patient NPO/ use Humalog SSI coverage PRNElectrolyte monitoring and replacement as per Critical care followingLife vest off, pending cardiology evaluationBlood pressure acceptableHome meds restartedLeft atrial clot: JAYLEN EliquisCAD: Lipitor/Metoprolol/AspirinSmoking cessation counseling- discussed with patient the importants of quiting smoking and he is aware that continued smoking will complicate his current cardiac situation as well as other health problems such as cancer and poor circulation to his lower extremities and chest pain.He verablized undestanding, Offered patient Nicotine patch but he declined.Pain control: [place] PRNDVT ppx: JAYLEN [facility]rales in [facility]-X-Ray:No acute cardiopulmonary process.Plan of care discussed with patient/NurseFurther rec's as per clinical course. 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 detailer furniture patient has been cleared to transfer out of ccu to cv1 while awaiting workup 12/31/23- heparin gtt- cta pending- ssi/fingersticks- smoking cessation- [facility] and patient likely for cabg- workup in progress 01/01/24- heparin gtt- CABG evaluation - Continue Eliquis, aspirin, statin and beta-luís.- Continue metoprolol succinate, and valsartan and Farxiga. - consult EP. Patient has a LifeVest on.- cta pending- ssi/fingersticks- smoking cessation 01/02/24Continue Heparin gttPending CT surgery input on CABG evaluationContinue Eliquis, aspirin, statin and beta-luís.Continue metoprolol succinate, and valsartan and Farxiga. Nicotine patch if pt would likeBP and BS at targetDispo: pending CT surgery input 01/03/24Pt states morphine is only thing helping with ongoing chest pain. Would like togo home soon with IV heparn drip and IV morphine.CT surgery plans on presenting tomorrow in difficult case conference due to thrombus in heart complicating plan on having CABG - await planContinue heparin drip for moderate sized thrombus anterior cardiac wall.CAD: continue ASA, statin, BBIschemic CM: continue metoprolol succinate, valsartan, FarxigaBP and BS at target, labs reviewed 01/04/24Cont heparin drip for moderate sized thrombus anterior cardiac wall.CAD: continue ASA, statin, BBIschemic CM: continue metoprolol succinate, valsartan, FarxigaBP and BS at target, labs reviewedPending CV surgery input after case conference today 01/05/24Cont heparin drip for moderate sized thrombus anterior cardiac wall.CV surgery recommending further cardiac work up with cardiac MRI vs viability testing before coming to conclusion about timing of surgeryCAD: continue ASA, statin, BBIschemic CM: continue metoprolol succinate, valsartan, FarxigaBP at targetBS elevated, add Lantus 10 units qhs, continue SSI high scale, Lantus 20 units qamPt irritated at long stay, d/c when cleared by CV surgery 01/06/24Current plan is to bridge Coumadin with heparin and then d/c to home when Coumadin is therapeutic. Once cardiac thrombus eliminated, will resume w/u for CAB outpt with Dr. Valle: continue ASA, statin, BBIschemic CM: continue metoprolol succinate, valsartan, FarxigaBP at targetBS still high, give changes made yesterday another day before adjusting.Pt has chronic pain, wants to go home with [place] and morphine. Consult his painmanagement physician, Dr. Gill to adjust pain meds to ease disposition to home. 01/07/24bridging Coumadin with heparin -inr 1.2trending labs-inr in am Ischemic CM: continue metoprolol succinate, valsartan, Farxiga-cardiology following BP acceptable BS remains high, ssi adjustedPt has chronic pain, wants to go home with [place] and morphine. Consult his painmanagement physician, Dr. Gill to adjust pain meds to ease disposition to home.Dispo: therapeutic inr 2-3once cardiac thrombus eliminated. Patient will need follow up for CABG as outpt with Dr. Mayfield 01/08/24Patient is cleared by cardiology for dischargePatient be discharged homePatient has a LifeVestContinue metoprolol, losartanPatient with: 4 mg of CoumadinPatient will follow-up with Coumadin clinicDiscussed with pharmacy Consultants: cardiology, cardiovascular surgery, critical/residential designer, hospitalist Free Text DxA P NotesFree text DxA P notes:Non-sustained V-tachy, on Amiodarone dripChest pain 2/2 aboveLife vest stopped firingTobacco abuseDiabetic Mellitus II with hyperglycemiaHx Left atrial clot (on Eliquis)Hx Diabetes Mellitus IIHx CAD PlanAdmit to CCUConsult CardiologyConsult Critical careContinous Telemetry monitoring - to assess for any arrythmiasEcho pending : Last Echo 11/29/23-EF 30-34%, grade 1 diastolic dysfunctionVital signs as per unit protocolAmiodarone drip @ 0.5mg/hrNPO for nowOptimize blood glucose, Hold Lantus Insulin while patient NPO/ use Humalog SSI coverage PRNElectrolyte monitoring and replacement as per Critical care followingLife vest off, pending cardiology evaluationBlood pressure acceptableHome meds restartedLeft atrial clot: AC EliquisCAD: Lipitor/Metoprolol/AspirinSmoking cessation counseling- discussed with patient the importants of quiting smoking and he is aware that continued smoking will complicate his current cardiac situation as well as other health problems such as cancer and poor circulation to his lower extremities and chest pain.He verablized undestanding, Offered patient Nicotine patch but he declined.Pain control: [place] PRNDVT ppx: JAYLEN Corrales in [facility]-X-Ray:No acute cardiopulmonary process.Plan of care discussed with patient/NurseFurther rec's as per clinical course. 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 detailer furniture patient has been cleared to transfer out of ccu to cv1 while awaiting workup 12/31/23- heparin gtt- cta pending- ssi/fingersticks- smoking cessation- [facility] and patient likely for cabg- workup in progress 01/01/24- heparin gtt- CABG evaluation - Continue Eliquis, aspirin, statin and beta-luís.- Continue metoprolol succinate, and valsartan and Farxiga. - consult EP. Patient has a LifeVest on.- cta pending- ssi/fingersticks- smoking cessation 01/02/24Continue Heparin gttPending CT surgery input on CABG evaluationContinue Eliquis, aspirin, statin and beta-luís.Continue metoprolol succinate, and valsartan and Farxiga. Nicotine patch if pt would likeBP and BS at targetDispo: pending CT surgery input 01/03/24Pt states morphine is only thing helping with ongoing chest pain. Would like togo home soon with IV heparn drip and IV morphine.CT surgery plans on presenting tomorrow in difficult case conference due to thrombus in heart complicating plan on having CABG - await planContinue heparin drip for moderate sized thrombus anterior cardiac wall.CAD: continue ASA, statin, BBIschemic CM: continue metoprolol succinate, valsartan, FarxigaBP and BS at target, labs reviewed 01/04/24Cont heparin drip for moderate sized thrombus anterior cardiac wall.CAD: continue ASA, statin, BBIschemic CM: continue metoprolol succinate, valsartan, FarxigaBP and BS at target, labs reviewedPending CV surgery input after case conference today 01/05/24Cont heparin drip for moderate sized thrombus anterior cardiac wall.CV surgery recommending further cardiac work up with cardiac MRI vs viability testing before coming to conclusion about timing of surgeryCAD: continue ASA, statin, BBIschemic CM: continue metoprolol succinate, valsartan, FarxigaBP at targetBS elevated, add Lantus 10 units qhs, continue SSI high scale, Lantus 20 units qamPt irritated at long stay, d/c when cleared by CV surgery 01/06/24Current plan is to bridge Coumadin with heparin and then d/c to home when Coumadin is therapeutic. Once cardiac thrombus eliminated, will resume w/u for CAB outpt with Dr. Valle: continue ASA, statin, BBIschemic CM: continue metoprolol succinate, valsartan, FarxigaBP at targetBS still high, give changes made yesterday another day before adjusting.Pt has chronic pain, wants to go home with [place] and morphine. Consult his painmanagement physician, Dr. Gill to adjust pain meds to ease disposition to home. 01/07/24bridging Coumadin with heparin -inr 1.2trending labs-inr in am Ischemic CM: continue metoprolol succinate, valsartan, Farxiga-cardiology following BP acceptable BS remains high, ssi adjustedPt has chronic pain, wants to go home with [place] and morphine. Consult his painmanagement physician, Dr. Gill to adjust pain meds to ease disposition to home.Dispo: therapeutic inr 2-3once cardiac thrombus eliminated. Patient will need follow up for CABG as outpt with Dr. Mayfield 01/08/24Patient is cleared by cardiology for dischargePatient be discharged homePatient has a LifeVestContinue metoprolol, losartanPatient with: 4 mg of CoumadinPatient will follow-up with Coumadin clinicDiscussed with pharmacy Med Rec Med RecDischarge meds:Stop taking the following medications:APIXABAN (ELIQUIS) 5 MG TAB 5 MILLIGRAM ORAL TWICE DAILY. Qty = 60 Continue taking these medications:ATORVASTATIN (LIPITOR) 40 MG TAB 40 MILLIGRAM ORAL BEDTIME. Qty = 30 METOPROLOL SUCC XL (TOPROL XL) 25 MG TAB.SR.24H 25 MILLIGRAM ORAL DAILY. Qty = 30 ASPIRIN (ASPIRIN) 81 MG TAB.CHEW 81 MILLIGRAM ORAL DAILY. Qty = 30 NITROGLYCERIN (NITROSTAT) 0.4 MG TAB.SL 0.4 MILLIGRAM SUBLINGUAL EVERY 5 MINUTES NEEDED. as needed for CHEST PAIN Qty = 30 INSULIN GLARGINE (LANTUS SOLOSTAR (15mL)) 100 UNIT/ML (3 ML) PEN.INJCTR 20 UNITS SUBCUTANEOUS BEDTIME. Qty = 15 Start taking the following new medications:AMIODARONE (PACERONE) 400 MG TAB 400 MILLIGRAM ORAL TWICE DAILY AT 9AM AND 5PM. Days = 30 Qty = 60 No Refills SPIRONOLACTONE (ALDACTONE) 25 MG TAB 25 MILLIGRAM ORAL DAILY. Days = 30 Qty = 30 No Refills VALSARTAN (DIOVAN) 80 MG TAB 80 MILLIGRAM ORAL DAILY. Days = 30 Qty = 30 No Refills WARFARIN (COUMADIN) 4 MG TAB 4 MILLIGRAM ORAL DAILY AT 1700. Days = 30 Qty = 30 No Refills ObjectiveHead/Eyes: atraumatic, normocephalicENT: moist mucosal membranesNeck: no JVDCardiovascular: normal heart sounds, regular rate rhythmRespiratory: clear to auscultation, no distressAbdomen: normal bowel sounds, softGenitourinary: no bladder distentionExtremities: no edemaMusculoskeletal: normal inspectionNeuro/PLASTICS 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, normal speechSkin: intact, no rashPsychiatry: normal affect, normal mood Free Text Obj NotesFree Text Obj Notes:General appearance: alert, awakeHead/Eyes: normal conjunctiva/scleraCardiovascular: normal heart sounds, regular rate rhythmRespiratory: clear to auscultation, no distressAbdomen: normal bowel sounds, softExtremities: no edemaNeuro/PLASTICS 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, normal speechSkin: intact, no rashPsychiatry: normal affect, normal mood Diagnosis, Assessment Plan Free Text DxA P NotesFree text DxA P notes:Patient is a 53 yrs old male with Pmhx as mentioned above who presented withAssessment:Non-sustained V-tachy, on Amiodarone dripChest pain 2/2 aboveLife vest stopped firingTobacco abuseDiabetic Mellitus II with hyperglycemiaHx Left atrial clot (on Eliquis)Hx Diabetes Mellitus IIHx CAD PlanAdmit to CCUConsult CardiologyConsult Critical careContinous Telemetry monitoring - to assess for any arrythmiasEcho pending : Last Echo 11/29/23-EF 30-34%, grade 1 diastolic dysfunctionVital signs as per unit protocolAmiodarone drip @ 0.5mg/hrNPO for nowOptimize blood glucose, Hold Lantus Insulin while patient NPO/ use Humalog SSI coverage PRNElectrolyte monitoring and replacement as per Critical care followingLife vest off, pending cardiology evaluationBlood pressure acceptableHome meds restartedLeft atrial clot: AC EliquisCAD: Lipitor/Metoprolol/AspirinSmoking cessation counseling- discussed with patient the importants of quiting smoking and he is aware that continued smoking will complicate his current cardiac situation as well as other health problems such as cancer and poor circulation to his lower extremities and chest pain.He verablized undestanding, Offered patient Nicotine patch but he declined.Pain control: [place] PRNDVT ppx: [facility]:No acute cardiopulmonary process.Plan of care discussed with patient/NurseFurther rec's as per clinical course. 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 detailer furniture patient has been cleared to transfer out of ccu to cv1 while awaiting workup 12/31/23- heparin gtt- cta pending- ssi/fingersticks- smoking cessation- [facility] and patient likely for cabg- workup in progress Discharge Instructions PCPDischarge to: Home/Self CareAdditional Discharge Routines: PCP Follow-Up, Oxygraph Operator Follow-UpDiet: Cardiac Follow-up AppointmentsPCP follow-up: PCP: Jesusita Osuna MD PCP follow up timeframe: In 1-2 weeks Special instructions:CALL OFFICE FOR APPOINTMENTConsulting provider 1: Provider 1: Papo Mayfield MD Specialty: Thoracic Surgery Consult follow up timeframe: ADVISEDConsulting provider 2: Provider 2: Maribell Davenport MD Specialty: CARDIOLOGY-EP Follow up timeframe: In 1-2 weeks Special instructions:CALL OFFICE FOR APPOINTMENTConsulting provider 3: Provider 3: Merlene Rutherford MD Specialty: CARDIOLOGY Follow up timeframe: In 1-2 weeks Special instructions:CALL OFFICE FOR APPOINTMENT at 2120 RPT #:[id number] OF REPORTDSDischarge oxrtfum3680-01-80A57:14:00G.[id number] ailable for patient hpcxUMXOLQZZNFVDLT2764-70-82A17:21:23 [facility]ACL 2024-01-08 21:07:00 [id number] DDXDrhXXlBRy9FHiSwuTxpvJlW+6073-60-37P86:07:00 [facility] CentralHospitalist Progress NoteREPORT#:[id number] REPORT STATUS: SignedREPORT INITIALIZATION DATE:01/08/24 TIME: 2106 PATIENT: CHARAN RESTREPO UNIT #: [id number]#: [id number] [address] [birth year] AGE: 53 SEX: M ATTEND: Jemal Young MDADM AUTHOR: Stella Lucia MDREPT SERVICE DT/TIME: 01/08/242106* ALL edits or amendments must be made on the electronic/computer document * Review of SystemsAll systems rev neg: except as noted Objective GeneralVS/I O:Vital Signs: Date Time Temp Pulse Resp B/P B/P Pulse O2 O2 Flow FiO2 Mean Ox Delivery Rate 01/07 1144 97.5 60 16 126/80 95.7 100 Room air 01/07 0715 97.9 61 15 150/76 0.0 98 Room air 01/07 0524 98 01/07 0424 61 11 99 01/07 0308 97.9 57 13 108/62 0.0 98 Room air 01/07 0307 57 14 108/62 79 100 01/07 0300 54 10 97 01/07 0200 58 12 96 01/07 0100 55 19 96 01/06 2302 98.2 60 13 118/58 0.0 98 Room air 01/06 2301 60 15 118/58 80 98 01/06 2224 56 12 99 01/06 2124 59 16 99 24 hour I O ending at 0700: 01/07 0700 01/06 1900 Intake Total 300 Output Total 750 Balance -450 Intake, Oral 300 Output, Urine 750 Patient 81.8 kg Weight Weight Standing scale Measurement Method PATIENT WEIGHT: Weight (lb): 180Weight (oz): 5.41Weight (kg): 81.800 Medications:Active Meds + DC'd Last 24 HrsWarfarin Sodium (COUMADIN 4MG TAB) 4 MG DAILY 1700 PO (DCD) Morphine Sulfate (morphine SULFATE) 4 MG Q4H PRN PRN IV (DCD) Hydrocodone Bitart/Acetaminophen (NORCO 10/325) 1 TAB Q4H PRN PRN PO (DCD) Insulin Glargine (Semglee) 10 UNIT BEDTIME SUBQ (DCD) Warfarin Sodium (COUMADIN) 5 MG DAILY 1700 PO (DC) Miscellaneous Information (WARFARIN PHARMACY TO DOSE) 1 EACH ASDIR PO (DCD) Insulin Glargine (Semglee) 20 UNIT DAILY SUBQ (DCD) Morphine Sulfate (morphine SULFATE) 4 MG Q4H PRN PRN IV (DC) Spironolactone (ALDACTONE) 25 MG DAILY PO (DCD) Clonazepam (KlonoPIN) 0.5 MG BID PO (DCD) Heparin Sodium (HEPARIN 5000 UNITS/ML) 5,000 UNIT ASDIR PRN PRN IV (DC) Heparin Sodium (HEPARIN 5000 UNITS/ML) 2,500 UNIT ASDIR PRN PRN IV (DC) Heparin Sodium (Porcine) (HEPARIN 25,000 UNITS/ 1/2NS 500ML) 500 ML ASDIR IV (DC) Polyethylene Glycol (MIRALAX) 17 GM DAILY PO (DCD) Senna/Docusate Sodium (SENOKOT S) 1 TAB DAILY PO (DCD) Amiodarone HCl (AMIODARONE HCL) 400 MG BID 9A 5P PO (DCD) Valsartan (DIOVAN) 80 MG DAILY PO (DCD) Atorvastatin Calcium (LIPITOR) 40 MG BEDTIME PO (DCD) Insulin Human Lispro (HUMALOG) 0 AC HS SUBQ (DCD) Glucagon (GLUCAGON) 1 MG DAILY PRN PRN IM (DCD) Aspirin (ASPIRIN) 81 MG DAILY PO (DCD) Metoprolol Succinate (TOPROL XL) 25 MG DAILY PO (DCD) Nitroglycerin (NITROSTAT) 0.4 MG Q5M PRN PRN SL (DCD) Dietitian nutrition assessmentThe data set between the solid lines has been imported from the dietitian's assessment. BMI Calculated: 26.1Nutrition related diagnosis: Nutrition diagnosis details: Nutrition problem: Nutrition etiology: Nutrition signs and symptoms: Nutrition prescription: Dietitian name: Assessment completed: Physical ExamHead/Eyes: atraumatic, normocephalicENT: moist mucosal membranesNeck: no JVDCardiovascular: normal heart sounds, regular rate rhythmRespiratory: clear to auscultation, no distressAbdomen: normal bowel sounds, softGenitourinary: no bladder distentionExtremities: no edemaMusculoskeletal: normal inspectionNeuro/PLASTICS 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, normal speechSkin: intact, no rashPsychiatry: normal affect, normal mood ResultsFindings/Data:Laboratory Tests 01/07 01/07 01/07 1141 0709 0330 Chemistry Sodium (134 - 147 mEq/L) 136 Potassium (3.4 - 5.0 mEq/L) 4.3 Chloride (100 - 108 mEq/L) 101 Carbon Dioxide (21 - 33 mEq/l) 28 Anion Gap (0 - 20) 12 BUN (7 - 25 mg/dL) 14 Creatinine (0.6 - 1.3 mg/dL) 1.2 Glomerular Filtr Rate (90 - 95) 71.9 L Glucose (77 - 141 mg/dL) 193 H POC Glucose (70 - 110 MG/DL) 162 H 224 H Calcium (8.0 - 10.5 mg/dL) 9.6 Magnesium (1.6 - 2.6 mg/dL) 1.92 Laboratory Tests 01/07 0330 Coagulation INR (0.8 - 1.2) 1.9 H PTT ([place]) (25.0 - 39.5 Seconds) 67.3 H PT Patient/Control Mix (9.3 - 12.9 SECONDS) 21.3 H Laboratory Tests 01/07 0330 Hematology WBC (4.5 - 11.0 x10 3/uL) 8.5 RBC (4.00 - 5.60 x10 6/uL) 5.53 Hgb (12.5 - 16.9 g/dL) 16.1 Hct (37.5 - 50.7 %) 47.9 MCV (81.0 - 99.0 fL) 86.6 MCH (27.0 - 33.0 pg) 29.1 MCHC (33.0 - 37.0 g/dL) 33.6 RDW (11.5 - 14.5 %) 13.2 Plt Count (150 - 400 x10 3/uL) 219 MPV (7.0 - 9.0 fL) 10.6 H Neut % (Auto) (56.0 - 77.0 %) 60.5 Lymph % (Auto) (14.0 - 32.0 %) 23.3 Marion % (Auto) (4.8 - 9.0 %) 7.7 Eos % (Auto) (0.3 - 3.7 %) 5.7 H Baso % (Auto) (0.0 - 2.0 %) 1.4 Neut # (Auto) (2.0 - 7.6 x10 3/uL) 5.16 Lymph # (Auto) (1.0 - 3.8 x10 3/uL) 1.99 Marion # (Auto) (0.1 - 0.8 x10 3/uL) 0.66 Eos # (Auto) (0.0 - 0.2 x10 3/uL) 0.49 H Baso # (Auto) (0.0 - 0.2 x10 3/uL) 0.12 Abs Immat Gran (auto) (0.00 - 0.03 x10 3/uL) 0.12 H Immature Gran % (0.0 - 2.0 %) 1.4 Nucleated RBC % (0 - 0 %) 0.0 Nucleated RBCs # (Man) (0.0 - 0.1 x10 3/uL) 0.00 Diagnosis, Assessment PlanConsultants: cardiology, cardiovascular surgery, critical/residential designer, hospitalist Free Text DxA P NotesFree text DxA P notes:Non-sustained V-tachy, on Amiodarone dripChest pain 2/2 aboveLife vest stopped firingTobacco abuseDiabetic Mellitus II with hyperglycemiaHx Left atrial clot (on Eliquis)Hx Diabetes Mellitus IIHx CAD [facility]Ad[facility] CardiologyConsu Critical careContinous Telemetry monitoring - to assess for any arrythmiasEcho pending : Last Echo 11/29/23-EF 30-34%, grade 1 diastolic dysfunctionVital signs as per unit protocolAmiodarone drip @ 0.5mg/hrNPO for nowOptimize blood glucose, Hold Lantus Insulin while patient NPO/ use Humalog SSI coverage PRNElectrolyte monitoring and replacement as per Critical care followingLife vest off, pending cardiology evaluationBlood pressure acceptableHome meds restartedLeft atrial clot: AC EliquisCAD: Lipitor/Metoprolol/AspirinSmoking cessation counseling- discussed with patient the importants of quiting smoking and he is aware that continued smoking will complicate his current cardiac situation as well as other health problems such as cancer and poor circulation to his lower extremities and chest pain.He verablized undestanding, Offered patient Nicotine patch but he declined.Pain control: [place] PRNDVT ppx: JAYLEN Corrales in [facility]-X-Ray:No acute cardiopulmonary process.Plan of care discussed with patient/NurseFurther rec's as per clinical course. 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 detailer furniture patient has been cleared to transfer out of ccu to cv1 while awaiting workup 12/31/23- heparin gtt- cta pending- ssi/fingersticks- smoking cessation- [facility] and patient likely for cabg- workup in progress 01/01/24- heparin gtt- CABG evaluation - Continue Eliquis, aspirin, statin and beta-luís.- Continue metoprolol succinate, and valsartan and Farxiga. - consult EP. Patient has a LifeVest on.- cta pending- ssi/fingersticks- smoking cessation 01/02/24Continue Heparin gttPending CT surgery input on CABG evaluationContinue Eliquis, aspirin, statin and beta-luís.Continue metoprolol succinate, and valsartan and Farxiga. Nicotine patch if pt would likeBP and BS at targetDispo: pending CT surgery input 01/03/24Pt states morphine is only thing helping with ongoing chest pain. Would like togo home soon with IV heparn drip and IV morphine.CT surgery plans on presenting tomorrow in difficult case conference due to thrombus in heart complicating plan on having CABG - await planContinue heparin drip for moderate sized thrombus anterior cardiac wall.CAD: continue ASA, statin, BBIschemic CM: continue metoprolol succinate, valsartan, FarxigaBP and BS at target, labs reviewed 01/04/24Cont heparin drip for moderate sized thrombus anterior cardiac wall.CAD: continue ASA, statin, BBIschemic CM: continue metoprolol succinate, valsartan, FarxigaBP and BS at target, labs reviewedPending CV surgery input after case conference today 01/05/24Cont heparin drip for moderate sized thrombus anterior cardiac wall.CV surgery recommending further cardiac work up with cardiac MRI vs viability testing before coming to conclusion about timing of surgeryCAD: continue ASA, statin, BBIschemic CM: continue metoprolol succinate, valsartan, FarxigaBP at targetBS elevated, add Lantus 10 units qhs, continue SSI high scale, Lantus 20 units qamPt irritated at long stay, d/c when cleared by CV surgery 01/06/24Current plan is to bridge Coumadin with heparin and then d/c to home when Coumadin is therapeutic. Once cardiac thrombus eliminated, will resume w/u for CAB outpt with Dr. Valle: continue ASA, statin, BBIschemic CM: continue metoprolol succinate, valsartan, FarxigaBP at targetBS still high, give changes made yesterday another day before adjusting.Pt has chronic pain, wants to go home with [place] and morphine. Consult his painmanagement physician, Dr. Gill to adjust pain meds to ease disposition to home. 01/07/24bridging Coumadin with heparin -inr 1.2trending labs-inr in am Ischemic CM: continue metoprolol succinate, valsartan, Farxiga-cardiology following BP acceptable BS remains high, ssi adjustedPt has chronic pain, wants to go home with [place] and morphine. Consult his painmanagement physician, Dr. Gill to adjust pain meds to ease disposition to home.Dispo: therapeutic inr 2-3once cardiac thrombus eliminated. Patient will need follow up for CABG as outpt with Dr. Mayfield 01/08/24Patient is cleared by cardiology for dischargePatient be discharged homePatient has a LifeVestContinue metoprolol, losartanPatient with: 4 mg of CoumadinPatient will follow-up with Coumadin clinicDiscussed with pharmacy at 2111 RPT #:[id number] OF REPORTPRProgress [id number]:07:00G.[id number] able for patient xwocJBRCXFQQPDMLQB8497-09-70F58:11:30 [facility] 2024-01-08 10:31:00 [id number]+d5e0qhfM 8po/QOE6/ELz6adNnvMuC+KNl7L8116-20-68Q77:31:00 [facility] ([facility])EP Progress NoteREPORT#:[id number] REPORT STATUS: SignedREPORT INITIALIZATION DATE:01/08/24 TIME: 1031 PATIENT: CHARAN RESTREPO UNIT #: [id number]#: [id number] ROOM/BED: 3396-1DOB: [birth year] AGE: 53 SEX: M ATTEND: Jemal Young MDADM AUTHOR: Jacob Greenfield FNPREPT SERVICE DT/TIME: 01/08/24 1031* ALL edits or amendments must be made on the electronic/computer document * SubjectiveChief complaint:LifeVest alarming Objective GeneralVS/I OLast Documented: Result Date Time Pulse Ox 98 01/07 715 B/P 150/76 01/07 715 B/P Mean 0.0 01/07 715 O2 Delivery Room air 01/07 715 Temp 36.6 01/07 715 Pulse 61 01/07 715 Resp 15 01/07 715 FiO2 21 12/30 1051 24 hour I O ending at 0700: 01/07 0700 01/06 1900 Intake Total 300 Output Total 750 Balance -450 Intake, Oral 300 Output, Urine 750 Patient 81.8 kg Weight Weight Standing scale Measurement Method PATIENT WEIGHT: Weight (lb): 180Weight (oz): 5.41Weight (kg): 81.800 Medications:Active Meds + DC'd Last 24 HrsWarfarin Sodium (COUMADIN 4MG TAB) 4 MG DAILY 1700 PO Morphine Sulfate (morphine SULFATE) 4 MG Q4H PRN PRN IV Warfarin Sodium (COUMADIN) 10 MG ONCE ONE PO (DC) Hydrocodone Bitart/Acetaminophen (NORCO 10/325) 1 TAB Q4H PRN PRN PO Nitroglycerin (NITROSTAT) 0 .STK-MED ONE SL (DC) Insulin Glargine (Semglee) 10 UNIT BEDTIME SUBQ Warfarin Sodium (COUMADIN) 5 MG DAILY 1700 PO (DC) Miscellaneous Information (WARFARIN PHARMACY TO DOSE) 1 EACH ASDIR PO (CKD) Insulin Glargine (Semglee) 20 UNIT DAILY SUBQ Morphine Sulfate (morphine SULFATE) 4 MG Q4H PRN PRN IV (DC) Hydrocodone Bitart/Acetaminophen (NORCO 10/325) 1 TAB Q4H PRN PRN PO (DC) Spironolactone (ALDACTONE) 25 MG DAILY PO Clonazepam (KlonoPIN) 0.5 MG BID PO Heparin Sodium (HEPARIN 5000 UNITS/ML) 5,000 UNIT ASDIR PRN PRN IV (DC) Heparin Sodium (HEPARIN 5000 UNITS/ML) 2,500 UNIT ASDIR PRN PRN IV (DC) Heparin Sodium (Porcine) (HEPARIN 25,000 UNITS/ 1/2NS 500ML) 500 ML ASDIR IV (DC) Polyethylene Glycol (MIRALAX) 17 GM DAILY PO Senna/Docusate Sodium (SENOKOT S) 1 TAB DAILY PO Amiodarone HCl (AMIODARONE HCL) 400 MG BID 9A 5P PO (CKD) Valsartan (DIOVAN) 80 MG DAILY PO Atorvastatin Calcium (LIPITOR) 40 MG BEDTIME PO Insulin Human Lispro (HUMALOG) 0 AC HS SUBQ Glucagon (GLUCAGON) 1 MG DAILY PRN PRN IM Aspirin (ASPIRIN) 81 MG DAILY PO Metoprolol Succinate (TOPROL XL) 25 MG DAILY PO Nitroglycerin (NITROSTAT) 0.4 MG Q5M PRN PRN SL Physical ExamGeneral appearance: alert, awake, orientedCardiovascular: CV assessment: regular rate and rhythmRespiratory: no distressAbdomen: soft, non-tenderExtremities: moves allNeuro/PLASTICS 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, oriented X 3, normal gait, normal speechSkin: dryFindings/Data:Laboratory Tests: 01/07 01/07 01/06 01/06 0709 0330 2025 1801Chemistry Sodium (134 - 147 mEq/L) 136 Potassium (3.4 - 5.0 mEq/L) 4.3 Chloride (100 - 108 mEq/L) 101 Carbon Dioxide (21 - 33 mEq/l) 28 Anion Gap (0 - 20) 12 BUN (7 - 25 mg/dL) 14 Creatinine (0.6 - 1.3 mg/dL) 1.2 Glomerular Filtr Rate (90 - 95) 71.9 L Glucose (77 - 141 mg/dL) 193 H POC Glucose (70 - 110 MG/DL) 224 H 150 H Calcium (8.0 - 10.5 mg/dL) 9.6 Magnesium (1.6 - 2.6 mg/dL) 1.92Coagulation INR (0.8 - 1.2) 1.9 H PTT ([place]) (25.0 - 39.5 Seconds) 67.3 H 66.0 H PT Patient/Control Mix (9.3 - 12.9 SECONDS) 21.3 HHematology WBC (4.5 - 11.0 x10 3/uL) 8.5 RBC (4.00 - 5.60 x10 6/uL) 5.53 Hgb (12.5 - 16.9 g/dL) 16.1 Hct (37.5 - 50.7 %) 47.9 MCV (81.0 - 99.0 fL) 86.6 MCH (27.0 - 33.0 pg) 29.1 MCHC (33.0 - 37.0 g/dL) 33.6 RDW (11.5 - 14.5 %) 13.2 Plt Count (150 - 400 x10 3/uL) 219 MPV (7.0 - 9.0 fL) 10.6 H Neut % (Auto) (56.0 - 77.0 %) 60.5 Lymph % (Auto) (14.0 - 32.0 %) 23.3 Marion % (Auto) (4.8 - 9.0 %) 7.7 Eos % (Auto) (0.3 - 3.7 %) 5.7 H Baso % (Auto) (0.0 - 2.0 %) 1.4 Neut # (Auto) (2.0 - 7.6 x10 3/uL) 5.16 Lymph # (Auto) (1.0 - 3.8 x10 3/uL) 1.99 Marion # (Auto) (0.1 - 0.8 x10 3/uL) 0.66 Eos # (Auto) (0.0 - 0.2 x10 3/uL) 0.49 H Baso # (Auto) (0.0 - 0.2 x10 3/uL) 0.12 Abs Immat Gran (auto) (0.00 - 0.03 x10 3/uL) 0.12 H Immature Gran % (0.0 - 2.0 %) 1.4 Nucleated RBC % (0 - 0 %) 0.0 Nucleated RBCs # (Man) (0.0 - 0.1 x10 3/uL) 0.00 01/06 01/06 01/06 1601 1214 1213 Chemistry POC Glucose (70 - 110 MG/DL) 215 H 136 H Coagulation PTT ([place]) (25.0 - 39.5 Seconds) 56.8 H Laboratory Tests 01/07 0330 Chemistry Magnesium (1.6 - 2.6 mg/dL) 1.92 Diagnosis, Assessment PlanFree Text A P:The patient is a 53 y.o male with medical history of CAD (PCI to prox and mid LAD in 02/2023), HTN, DM and HLD. He recently had LHC at [facility] due to frequent chest pain and was referred to come here for CABG. The patient was recently admitted to [facility] on 11/27/23 for CABG work-up and surgery was scheduled for 11/30/23 but cancelled due to LV thrombus. He was discharged on LifeVest, anticoagulant (eliquis), and planning for CABG in 2-3 months. ECHO on 11/28/23, LVEF was 30-34%. The patient reports went to [facility] in [place] because had frequent chest pain and LifeVest alarming occurred few times, deniesLifeVest shocks. He was found to have episodes of VT, started on Amiodarone bolus/drip, and transfered to [facility] on 12/27/23 for further evaluation. 1. CMP-ECHO (12/28/23): LVEF 25-29%-LIFEVEST in possession-recommend GDMT/LIFEVEST x3 mos.-ok to d/c from EP standpoint 2. NSVT-currently SR 60s-AA therapy, amiodarone 400mg bid + metop succ 25mg daily-no recurrence this admission 3. CAD-s/p PCI, 02/2023-s/p LHC; severe-s/p viability study; nonviable myocardium-per CTS, not a candidate for CABG 4. LV thrombus-s/p CTA heart-AC warfarin-INR 1.9 Consultants: cardiology, cardiovascular surgery, critical/residential designer, hospitalist at 1033 at 1115 RPT #:[id number] OF REPORTPRProgress [id number]:31:00G.[id number] able for patient ldmjNXWUFBHBSMVVQO6676-48-03I95:33:55 [facility] 2024-01-08 09:07:00 [id number] zIvSGmAM4Uaq/jXpNkcrKhWUnVz8g 3aemL6/niVebTBchNFO/m47AUxM9999-75-99M23:07:00 [facility] ([facility])Cardiology Progress NoteREPORT#:[id number] REPORT STATUS: SignedREPORT INITIALIZATION DATE:01/08/24 TIME: 906 PATIENT: CHARAN RESTREPO UNIT #: [id number]#: [id number] [address] [birth year] AGE: 53 SEX: M ATTEND: Jemal Yuong MDADM AUTHOR: Fiona Foster AGACNPREPT SERVICE DT/TIME: 01/08/24 09* ALL edits or amendments must be made on the electronic/computer document * SubjectivePatient reports:No: complaints. Objective GeneralVS/I O:24 hour I O ending at 0700: 01/07 0700 01/06 1900 Intake Total 300 Output Total 750 Balance -450 Intake, Oral 300 Output, Urine 750 Patient 81.8 kg Weight Weight Standing scale Measurement Method Vital Signs: Date Time Temp Pulse Resp B/P B/P Pulse O2 O2 Flow FiO2 Mean Ox Delivery Rate 01/07 0715 36.6 61 15 150/76 0.0 98 Room air 01/07 0524 98 01/07 0424 61 11 99 01/07 0308 36.6 57 13 108/62 0.0 98 Room air 01/07 0307 57 14 108/62 79 100 01/07 0300 54 10 97 01/07 0200 58 12 96 01/07 0100 55 19 96 01/06 2302 36.8 60 13 118/58 0.0 98 Room air 01/06 2301 60 15 118/58 80 98 01/06 2224 56 12 99 01/06 2124 59 16 99 01/06 1924 70 24 98 01/06 1832 36.4 63 13 132/61 0.0 95 Room air 01/06 1605 36.9 55 12 114/62 0.0 97 Room air 01/06 1216 36.5 56 12 122/65 0.0 100 Room air 01/06 0953 60 13 128/62 88 96 PATIENT WEIGHT: Weight (lb): 180Weight (oz): 5.41Weight (kg): 81.800 Medications:Active Meds + DC'd Last 24 HrsWarfarin Sodium (COUMADIN 4MG TAB) 4 MG DAILY 1700 PO Morphine Sulfate (morphine SULFATE) 4 MG Q4H PRN PRN IV Warfarin Sodium (COUMADIN) 10 MG ONCE ONE PO (DC) Hydrocodone Bitart/Acetaminophen (NORCO 10/325) 1 TAB Q4H PRN PRN PO Nitroglycerin (NITROSTAT) 0 .STK-MED ONE SL (DC) Insulin Glargine (Semglee) 10 UNIT BEDTIME SUBQ Warfarin Sodium (COUMADIN) 5 MG DAILY 1700 PO (DC) Miscellaneous Information (WARFARIN PHARMACY TO DOSE) 1 EACH ASDIR PO (CKD) Insulin Glargine (Semglee) 20 UNIT DAILY SUBQ Morphine Sulfate (morphine SULFATE) 4 MG Q4H PRN PRN IV (DC) Hydrocodone Bitart/Acetaminophen (NORCO 10/325) 1 TAB Q4H PRN PRN PO (DC) Spironolactone (ALDACTONE) 25 MG DAILY PO Clonazepam (KlonoPIN) 0.5 MG BID PO Heparin Sodium (HEPARIN 5000 UNITS/ML) 5,000 UNIT ASDIR PRN PRN IV (DCr) Heparin Sodium (HEPARIN 5000 UNITS/ML) 2,500 UNIT ASDIR PRN PRN IV (DCr) Heparin Sodium (Porcine) (HEPARIN 25,000 UNITS/ 1/2NS 500ML) 500 ML ASDIR IV (DCr) Polyethylene Glycol (MIRALAX) 17 GM DAILY PO Senna/Docusate Sodium (SENOKOT S) 1 TAB DAILY PO Amiodarone HCl (AMIODARONE HCL) 400 MG BID 9A 5P PO (CKD) Valsartan (DIOVAN) 80 MG DAILY PO Atorvastatin Calcium (LIPITOR) 40 MG BEDTIME PO Insulin Human Lispro (HUMALOG) 0 AC HS SUBQ Glucagon (GLUCAGON) 1 MG DAILY PRN PRN IM Aspirin (ASPIRIN) 81 MG DAILY PO Metoprolol Succinate (TOPROL XL) 25 MG DAILY PO Nitroglycerin (NITROSTAT) 0.4 MG Q5M PRN PRN SL Physical ExamGeneral appearance: alert, awake, orientedNeck: full range of motion, non-tender, normal thyroid, supple/no meningismus, no bruit/NL carotids, no JVD, no lymphadenopathy, no masses or swellingCardiovascular: CV assessment: regular rate and rhythmRespiratory: clear to auscultation, no distressAbdomen: non-tender, normal bowel sounds, no distention, no guarding, no mass/organomegaly, no pulsatile mass, no reboundUpper extremity: UE assessment: normal capillary refill, no edemaLower extremity: LE assessment: normal capillary refill, no edemaMusculoskeletal: normal inspectionNeuro/PLASTICS 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, oriented X 3, normal speechSkin: dry, intact, normal colorPsychiatry: normal affect, normal judgment/insight, normal mood ResultsFindings/Data:Laboratory Tests 01/07 01/07 01/06 01/06 01/06 0709 0330 6 1601 1213 Chemistry Sodium (134 - 147 mEq/L) 136 Potassium (3.4 - 5.0 mEq/L) 4.3 Chloride (100 - 108 mEq/L) 101 Carbon Dioxide (21 - 33 mEq/l) 28 Anion Gap (0 - 20) 12 BUN (7 - 25 mg/dL) 14 Creatinine (0.6 - 1.3 mg/dL) 1.2 Glomerular Filtr Rate (90 - 95) 71.9 L Glucose (77 - 141 mg/dL) 193 H POC Glucose (70 - 110 MG/DL) 224 H 150 H 215 H 136 H Calcium (8.0 - 10.5 mg/dL) 9.6 Magnesium (1.6 - 2.6 mg/dL) 1.92 Laboratory Tests 01/07 01/06 01/06 0330 1801 1214 Coagulation INR (0.8 - 1.2) 1.9 H PTT ([place]) (25.0 - 39.5 Seconds) 67.3 H 66.0 H 56.8 H PT Patient/Control Mix (9.3 - 12.9 SECONDS) 21.3 H Laboratory Tests 01/070 Hematology WBC (4.5 - 11.0 x10 3/uL) 8.5 RBC (4.00 - 5.60 x10 6/uL) 5.53 Hgb (12.5 - 16.9 g/dL) 16.1 Hct (37.5 - 50.7 %) 47.9 MCV (81.0 - 99.0 fL) 86.6 MCH (27.0 - 33.0 pg) 29.1 MCHC (33.0 - 37.0 g/dL) 33.6 RDW (11.5 - 14.5 %) 13.2 Plt Count (150 - 400 x10 3/uL) 219 MPV (7.0 - 9.0 fL) 10.6 H Neut % (Auto) (56.0 - 77.0 %) 60.5 Lymph % (Auto) (14.0 - 32.0 %) 23.3 Marion % (Auto) (4.8 - 9.0 %) 7.7 Eos % (Auto) (0.3 - 3.7 %) 5.7 H Baso % (Auto) (0.0 - 2.0 %) 1.4 Neut # (Auto) (2.0 - 7.6 x10 3/uL) 5.16 Lymph # (Auto) (1.0 - 3.8 x10 3/uL) 1.99 Marion # (Auto) (0.1 - 0.8 x10 3/uL) 0.66 Eos # (Auto) (0.0 - 0.2 x10 3/uL) 0.49 H Baso # (Auto) (0.0 - 0.2 x10 3/uL) 0.12 Abs Immat Gran (auto) (0.00 - 0.03 x10 3/uL) 0.12 H Immature Gran % (0.0 - 2.0 %) 1.4 Nucleated RBC % (0 - 0 %) 0.0 Nucleated RBCs # (Man) (0.0 - 0.1 x10 3/uL) 0.00 Laboratory Tests 01/07 0330 Chemistry Magnesium (1.6 - 2.6 mg/dL) 1.92 Results: labs reviewed, vital signs reviewed, rhythm personally rev'd Diagnosis, Assessment PlanPlan discussed with: patient, collaborating MD, nurse Free Text DxA P NotesFree Text DxA P Notes:1. Coronary artery disease* Repeat CTA heart showed persistent LV thrombus 4.1 x 2.0 cm . * Continue aspirin, statin and beta-luís.* CABG postponed d/t LV thrombus* 01/17/24: NTG-enhanced viability study showed a nonviable myocardium. Will arrange for cardiac MRI outpatient for optimal study. 2. Ventricular tachycardia* no further Vtach* Continue p.o. amiodarone. * D/w EP - no ICD being planned during this admission. Patient need to wear LifeVest for 3 months plus GMDT. Will repeat echo by then and if EF remains lessthan 35% then he will get ICD implant 3. Severe cardiomyopathy - Likely ischemic* CABG postponed due to LV thrombus* Continue GDMT: metoprolol succinate, valsartan, Farxiga, and Aldactone 25 mg daily 4. Diabete mellitus* per Primary team* on Farxiga for heart failure. 5. Hyperlipidemia* continue statin 6. LV thrombus* Received Warfarin 5-5-10 mg (01/04, 01/05, 01/06). current INR is 1.9. Stop Heparin gtt. He will be discharged home today. Will check his INR in Dr. Rodriguez's clinic and will titrate warfarin outpatient with goal INR of 2-3. Okay to DC from cardiology.Outpatient follow-up with Dr. Rodriguez clinic tomorrow to check INR Medical decision making by Dr. Rutherford. at 1218 RPT #:[id number] OF REPORTPRProgress [id number]:07:00G.[id number] able for patient qpfsUHVRHVRFHHARWP5803-88-20N34:18:55 [facility] 2024-01-08 08:37:00 [id number]+2IkBZncq7OBYwDt/euMCNn kBlR9LS1ZNFb+QdadrMPUJR+1Ao0679-26-44Y60:37:00 [facility] Prog.Note-AnticoagREPORT#:[id number] REPORT STATUS: SignedREPORT INITIALIZATION DATE:01/08/24 TIME: 0837 PATIENT: CHARAN RESTREPO UNIT #: [id number]#: [id number] [address] [birth year] AGE: 53 SEX: M ATTEND: Jemal Young [facility] AUTHOR: Bhaskar Justice RPhREPT SERVICE DT/TIME: 01/08/24 0837* ALL edits or amendments must be made on the electronic/computer document * Anticoagulation AnticoagulationMedication therapy: warfarinGoal INR: 2 - 3INR/med table: INR Date/Time INR Warfarin Dose Interactions/Notes 01/04 1 5 mg heparin drip bridge 01/05 1 5 mg 01/06 1.2 10 mg Boost dose per Cardiology 01/07 1.9 4 mg Indication for treatment: LV thrombusVS and I/O:Vital Signs Date Temp Pulse Resp B/P B/P Mean Pulse Ox FiO2 01/04-01/07 97.5-98.4 53-70 10-24 96-150/56-76 0.0-91 95-100 72 hours ending at 0700 01/07 0700 01/06 1900 01/06 0701/05 1900 01/05 01/04 0700 1900Intake 300 240TotalOutput 750TotalBalance -450 240 Intake, 300 240OralOutput, 750UrinePatient 81.8 kg 82.5 kg 80.5 kgWeightWeight Standing Standing Standing scale scale scaleMeasurementMethod 72 Hour I O Total 01/07 0700 01/06 0701/05 0700 Intake Total 300 240 Output Total 750 Balance -450 240 Labs:Laboratory Tests: 01/07 01/06 01/05 0330 0400 0505 Hematology Hgb (12.5 - 16.9 g/dL) 16.1 16.1 16.0 Hct (37.5 - 50.7 %) 47.9 47.6 47.3 Plt Count (150 - 400 x10 3/uL) 219 211 197 PT/INR 72 Hr Trend: 01/07 01/06 01/05 01/04 0330 0400 0505 1503 Coagulation INR (0.8 - 1.2) 1.9 1.2 1.0 1.0 Treatment plan: consult, change regimenRegimen:HPI: 53-year-old gentleman with past medical history of coronary artery disease status post previous PCI in the past, hypertension, diabetes, hyperlipidemia, smoker 1 ppd/40 years, and chronic pain who presented to [facility] with complaints of life vest alarming and V-tach. CTA showed LV thrombus - currently on heparin drip. Starting on warfarin today. Consulting provider: Dia Baird PAIndication: LV thrombusGoal INR: 2-3Diet: cardiac dietInteracting meds: -Increased INR: amiodarone-Increased risk of bleed: aspirin, heparin bridge A/P 01/07: * INR 1.9, subtherapeutic, significantly increased from 1.2 yesterday, likely due to boost 10mg dose yesterday per Cardiology. Plan for patient to discharge home today, would recommend continuation of warfarin 4mg PO daily.* H/H/Plat 16.1/47.9/219 - no noted s/sx of bleeding.* Monitor for eventual effects of amiodarone drug interaction, will likely require further eventual dose reduction.* Continue heparin drip bridging until INR therapeutic x24hrs.* INR ordered until 01/13. Pharmacy will continue to monitor. at 0850 RPT #:[id number] OF REPORTPRProgress [id number] able for patient [id number] [facility] 2024-01-08 05:49:00 [id number] [id number] 6gt+uvW7/uRmANYzEfyaYirdh/f5754-13-37R28:49:00 [facility] Surgery ProgREPORT#:[id number] REPORT STATUS: SignedREPORT INITIALIZATION DATE:01/08/24 TIME: 548 PATIENT: CHARAN RESTREPO UNIT #: [id number]#: [id number] ROOM/BED: 3396-1DOB: [birth year] AGE: 53 SEX: M ATTEND: Jemal Young AUTHOR: Dia Baird PhysicREPT SERVICE DT/TIME: 01/08/24 0549* ALL edits or amendments must be made on the electronic/computer document * SubjectiveChief complaint:chest pain V-tach CAD Pre op CABG LV thrombus Review of SystemsConstitutional:Denies: chills, fatigue, fever. Skin:Denies: abrasion, bruising, diaphoresis. Allergy/Immun:Denies: allergic reaction, anaphylaxis, itching. Musculoskeletal:Denies: arthritis, extremity pain, extremity swelling. Heme:Denies: adenopathy, bleeding, bruising. Neuro:Denies: change in LOC, confusion, dizziness, seizure, syncope. All systems rev neg: except as marked Objective GeneralVS/I OLast Documented: Result Date Time Pulse Ox 99 01/07 0424 Pulse 61 01/07 0424 Resp 11 01/07 0424 B/P 108/62 01/07 0308 B/P Mean 0.0 01/07 0308 O2 Delivery Room air 01/07 0308 Temp 97.9 01/07 0308 FiO2 21 12/30 1051 24 hour I O ending at 0700: 01/07 0700 01/06 1900 Intake Total 300 Output Total 750 Balance -450 Intake, Oral 300 Output, Urine 750 Patient 81.8 kg Weight Weight Standing scale Measurement Method PATIENT WEIGHT: Weight (lb): 180Weight (oz): 5.41Weight (kg): 81.800 Physical ExamGeneral appearance: alert, awakeHEENT: anicteric, mucosal membranes moist, pupils reactive to lightNeck: full range of motion, non-tenderCardiovascular: normal heart sounds, regular rate rhythmRespiratory: aerating well, symmetric expansionAbdomen: soft, non-tenderGenitourinary: no bladder distention, no flank pain, no foleyExtremities: dry, moves allMusculoskeletal: full range of motion, painless range of motionNeuro/PLASTICS 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, CNII-XII intactSkin: dry, intactPsychiatry: normal affect, normal mood Diagnosis, Assessment PlanHospital course to date:This is a 53-year-old gentleman with past medical history of coronary artery disease status post previous PCI in the past, hypertension, diabetes, hyperlipidemia, smoker 1 ppd/40 years, and chronic pain who presented to [facility] with complaints of life vest alarming and V-tach. Patient denies any shocks. He was started on an amiodarone drip and transferred to [facility] for further evaluation. 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 He was taken to the operating room where during the intraoperative ANAND there is some suspicion for thrombus, after talking with the patient's wool broker we decided to cancel surgery due to the increase risk of thromboembolic event. Cardiac CT was done, and patient was started on eliquis and discharged home with life vest with a plan for CABG 2-3 months once LV thrombus resolved. CV surgery was consulted for further evaluation. ECHO 1. Left ventricle: The cavity size is mildly dilated. Wall thickness is mildly increased. Systolic function is severely reduced. The estimated ejection fraction is 25-29%. Akinesis of the apical wall. Akinesis of the anterior wall. Hypokinesis of the lateral wall. Grade I diastolic dysfunction.2. Right ventricle: The RV pressure during systole is 31 mm Hg.3. Left atrium: The atrium is moderately dilated.4. Mitral valve: There is mild regurgitation.5. Tricuspid valve: There is mild regurgitation.6. Pericardium, extracardiac: A small pericardial effusion is identified anterior to the heart. Patient in stable conditionEP and cardiology followingWill discuss with team regarding timing of surgeryFurther recommendations to follow. 12/30/23Patient in stable conditionLabs reviewedCTA heart Discontinue eliquisStart heparin dripPlan of care discussed with the patient, all questions were answered. 12/31/23Patient doing well, denies complaintsDenies chest pain, continue heparin dripLabs reviewedPending CTA heart, further recommendations to followPlan of care discussed with the patient, all questions were answered 01/01/24Patient seen and examined, denies complaintsContinue heparin dripCTA heart pendingFurther recommendations to follow 01/02/24Denies complaintsContinue heparin infusionModerate-sized thrombus seen on CTA heartFurther recommendations to follow 01/03/24Patient alert, awake, orientedLabs reviewedDenies complaints, denies chest pain, continue heparin infusion.Will obtain nuc med myocardial perfusion study to evaluate myocardial viabilityCase to be presented at complex cardiology conference and further recommendations to follow. 01/04/24Patient seen and examined, denies complaintsPatient presented at complex cardiology conference and recommendations are for viability study or cardiac MRI.Further recommendations to followDiscussed with patient the plan, all questions were answered 01/05/24Patinet resting comfortable. Patient will need cardiac MRI in outpatent setting. Will need to transistion to coumadin. Starting dose ordered for pharmacyon room air. Sinus rhythm. Patient seen and examined by Dr Mayfield. Plan of care discussed with patient, all questions answered. 01/06/24Patient resting comfortableNo new complaintOn Coumadin, managed by pharmacy. Continues on heparin dripSinus rhythmPatient seen and examined Dr. Mayfield.Continue to monitor INR. Patient will need therapeutic INR, plan for discharge and outpatient cardiac MRI 01/07/24Patient restingDenies complaintsOn Coumadin. INR 1.2, managed by pharmacy.Nitroglycerin enhance viability study scheduled for this afternoon per cardiologyPatient may be discharged home when okay with cardiology. Patient will need therapeutic INR.Patient seen and examined Dr. Mayfield. Outpatient cardiac MRI can be arranged by cardiology 01/08/24Patient resting comfortable. Denies any new complaints. on Coumadin- discussed with Cardiology, will be followed in outpatient setting. Cardiac MRI to be arranged in outpatinet setting. Okay to DC patient efrem on coumadin and followup after cardiac MRI. Further Recs as per Cardiology Patient seen and examined Dr. Mayfield. Okay to HI patient home when okay with carton stapler: cardiology, cardiovascular surgery, critical/residential designer, hospitalist at 0905 at 0948 RPT #:[id number] OF REPORTPRProgress [id number]:49:00G.[id number] able for patient yveuSEBELGNWBVDNST7074-70-35J30:06:15 [facility] 2024-01-07 16:51:00 [id number] [id number]O9335-83-14J97:51:00 [facility] CentralCard[facility] Progress NoteREPORT#:[id number] REPORT STATUS: SignedREPORT INITIALIZATION DATE:01/07/24 TIME: 1650 PATIENT: CHARAN RESTREPO UNIT #: [id number]#: [id number] ROOM/BED: 3345-1DOB: [birth year] AGE: 53 SEX: M ATTEND: Jac Masrh MDADM AUTHOR: Fiona Foster AGACNPREPT SERVICE DT/TIME: 01/07/241650* ALL edits or amendments must be made on the electronic/computer document * SubjectiveComments:no new cardiac issue. He appear stable. Objective GeneralVS/I O:24 hour I O ending at 0700: 01/06 0700 01/05 1900 Intake Total 240 Output Total Balance 240 Intake, Oral 240 Patient 82.5 kg Weight Weight Standing scale Measurement Method Vital Signs: Date Time Temp Pulse Resp B/P B/P Pulse O2 O2 Flow FiO2 Mean Ox Delivery Rate 01/06 1605 36.9 55 12 114/62 0.0 97 Room air 01/06 1216 36.5 56 12 122/65 0.0 100 Room air 01/06 0953 60 13 128/62 88 96 01/06 0826 64 18 135/70 91 98 Room air 01/06 0729 36.4 56 12 111/67 0.0 95 Room air 01/06 0433 36.5 59 19 112/62 0.0 97 Room air 01/05 2238 36.4 57 20 118/65 82.9 96 Room air 01/05 1801 36.5 54 19 116/63 0.0 97 Room air PATIENT WEIGHT: Weight (lb): 181Weight (oz): 14.1Weight (kg): 82.500 Medications:Active Meds + DC'd Last 24 HrsWarfarin Sodium (COUMADIN) 10 MG ONCE ONE PO (UNV) Hydrocodone Bitart/Acetaminophen (NORCO 10/325) 1 TAB Q4H PRN PRN PO Nitroglycerin (NITROSTAT) 0 .STK-MED ONE SL (DC) Insulin Glargine (Semglee) 10 UNIT BEDTIME SUBQ Warfarin Sodium (COUMADIN) 5 MG DAILY 1700 PO Miscellaneous Information (WARFARIN PHARMACY TO DOSE) 1 EACH ASDIR PO (CKD) Insulin Glargine (Semglee) 20 UNIT DAILY SUBQ Morphine Sulfate (morphine SULFATE) 4 MG Q4H PRN PRN IV Hydrocodone Bitart/Acetaminophen (NORCO 10/325) 1 TAB Q4H PRN PRN PO (DC) Spironolactone (ALDACTONE) 25 MG DAILY PO Clonazepam (KlonoPIN) 0.5 MG BID PO Heparin Sodium (HEPARIN 5000 UNITS/ML) 5,000 UNIT ASDIR PRN PRN IV Heparin Sodium (HEPARIN 5000 UNITS/ML) 2,500 UNIT ASDIR PRN PRN IV Heparin Sodium (Porcine) (HEPARIN 25,000 UNITS/ 1/2NS 500ML) 500 ML ASDIR IV (CKD) Polyethylene Glycol (MIRALAX) 17 GM DAILY PO Senna/Docusate Sodium (SENOKOT S) 1 TAB DAILY PO Amiodarone HCl (AMIODARONE HCL) 400 MG BID 9A 5P PO (CKD) Valsartan (DIOVAN) 80 MG DAILY PO Atorvastatin Calcium (LIPITOR) 40 MG BEDTIME PO Insulin Human Lispro (HUMALOG) 0 AC HS SUBQ Glucagon (GLUCAGON) 1 MG DAILY PRN PRN IM Aspirin (ASPIRIN) 81 MG DAILY PO Metoprolol Succinate (TOPROL XL) 25 MG DAILY PO Nitroglycerin (NITROSTAT) 0.4 MG Q5M PRN PRN SL Physical ExamGeneral appearance: alert, awake, orientedNeck: full range of motion, non-tender, normal thyroid, supple/no meningismus, no bruit/NL carotids, no JVD, no lymphadenopathy, no masses or swellingCardiovascular: CV assessment: regular rate and rhythmRespiratory: clear to auscultation, no distressAbdomen: non-tender, normal bowel sounds, no distention, no guarding, no mass/organomegaly, no pulsatile mass, no reboundUpper extremity: UE assessment: normal capillary refill, no edemaLower extremity: LE assessment: normal capillary refill, no edemaMusculoskeletal: normal inspectionNeuro/PLASTICS 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, oriented X 3, normal speechSkin: dry, intact, normal colorPsychiatry: normal affect, normal judgment/insight, normal mood ResultsFindings/Data:Laboratory Tests 01/06 01/06 01/06 01/05 01/05 1213 0725 0400 2019 1725 Chemistry Sodium (134 - 147 mEq/L) 135 Potassium (3.4 - 5.0 mEq/L) 4.5 Chloride (100 - 108 mEq/L) 101 Carbon Dioxide (21 - 33 mEq/l) 30 Anion Gap (0 - 20) 9 BUN (7 - 25 mg/dL) 19 Creatinine (0.6 - 1.3 mg/dL) 1.2 Glomerular Filtr Rate (90 - 95) 71.9 L Glucose (77 - 141 mg/dL) 262 H POC Glucose (70 - 110 MG/DL) 136 H 261 H 160 H 203 H Calcium (8.0 - 10.5 mg/dL) 9.3 Magnesium (1.6 - 2.6 mg/dL) 1.98 Laboratory Tests 01/06 01/06 01/06 01/05 1214 0400 0400 2031Coagulation INR (0.8 - 1.2) 1.2 PTT ([place]) (25.0 - 39.5 Seconds) 56.8 H 78.6 H 71.0 H PT Patient/Control Mix (9.3 - 12.9 13.3 HSECONDS) Laboratory Tests 01/06 0400 Hematology WBC (4.5 - 11.0 x10 3/uL) 7.8 RBC (4.00 - 5.60 x10 6/uL) 5.53 Hgb (12.5 - 16.9 g/dL) 16.1 Hct (37.5 - 50.7 %) 47.6 MCV (81.0 - 99.0 fL) 86.1 MCH (27.0 - 33.0 pg) 29.1 MCHC (33.0 - 37.0 g/dL) 33.8 RDW (11.5 - 14.5 %) 13.2 Plt Count (150 - 400 x10 3/uL) 211 MPV (7.0 - 9.0 fL) 10.2 H Neut % (Auto) (56.0 - 77.0 %) 60.0 Lymph % (Auto) (14.0 - 32.0 %) 24.1 Marion % (Auto) (4.8 - 9.0 %) 7.4 Eos % (Auto) (0.3 - 3.7 %) 5.9 H Baso % (Auto) (0.0 - 2.0 %) 1.2 Neut # (Auto) (2.0 - 7.6 x10 3/uL) 4.65 Lymph # (Auto) (1.0 - 3.8 x10 3/uL) 1.87 Marion # (Auto) (0.1 - 0.8 x10 3/uL) 0.57 Eos # (Auto) (0.0 - 0.2 x10 3/uL) 0.46 H Baso # (Auto) (0.0 - 0.2 x10 3/uL) 0.09 Abs Immat Gran (auto) (0.00 - 0.03 x10 3/uL) 0.11 H Immature Gran % (0.0 - 2.0 %) 1.4 Nucleated RBC % (0 - 0 %) 0.0 Nucleated RBCs # (Man) (0.0 - 0.1 x10 3/uL) 0.00 Laboratory Tests 01/06 0400 Chemistry Magnesium (1.6 - 2.6 mg/dL) 1.98 Results: labs reviewed, vital signs reviewed, rhythm personally rev'dTelemetry Interpretation:SB Diagnosis, Assessment PlanPlan discussed with: patient, collaborating MD, nurse Free Text DxA P NotesFree Text DxA P Notes:1. Coronary artery disease* Repeat CTA heart showed persistent LV thrombus 4.1 x 2.0 cm . * Continue heparin, aspirin, statin and beta-luís.* CABG postponed d/t LV thrombus* 01/17/24: NTG-enhanced viability study showed a nonviable myocardium. Will arrange for cardiac MRI outpatient for optimal study. 2. Ventricular tachycardia* no further Vtach* Continue p.o. amiodarone. * EP on board. * Patient has a LifeVest on.* D/w EP - no ICD being planned during this admission. Patient need to wear LifeVest for 3 months plus GMDT. Will repeat echo by then and if EF remains lessthan 35% then he will get ICD implant 3. Severe cardiomyopathy - Likely ischemic* CABG postponed due to LV thrombus* Continue GDMT: metoprolol succinate, valsartan, Farxiga, and Aldactone 25 mg daily 4. Diabete mellitus* per Primary team* on Farxiga for heart failure. 5. Hyperlipidemia* continue statin 6. LV thrombus* continue Heparin gtt* On Warfarin 5 mg initiated on 01/05/24. INR is only 1.2. I will give him Warfarin 10 mg today. He will be discharged home tomorrow even with subtherapeutic INR. Will check his INR in Dr. Rodriguez's clinic and will titrate warfarin outpatient with goal INR of 2-3. Medical decision making by Dr. Rutherford. at 1712 RPT #:[id number] OF REPORTPRProgress [id number]:51:00G.[id number] able for patient uhtjPAPAVQRABYUNCZ2459-34-44B66:13:18 [facility] 2024-01-07 15:21:00 [id number]/EsVvBopAL 9mJTSFFJO/fpH6yaYpaHm+KpJdM9143-84-67B44:21:00 [facility] CentralEP Progress NoteREPORT#:[id number] REPORT STATUS: SignedREPORT INITIALIZATION DATE:01/07/24 TIME: 152 PATIENT: CHARAN RESTREPO UNIT #: [id number]#: [id number] [address] [birth year] AGE: 53 SEX: M ATTEND: Jemal Young MDA AUTHOR: Jacob Greenfield FNPREPT SERVICE DT/TIME: 01/07/24 1521* ALL edits or amendments must be made on the electronic/computer document * SubjectiveChief complaint:LifeVest alarming Objective GeneralVS/I OLast Documented: Result Date Time Pulse Ox 100 01/06 1216 B/P 122/65 01/06 1216 B/P Mean 0.0 01/06 1216 O2 Delivery Room air 01/06 1216 Temp 36.5 01/06 1216 Pulse 56 01/06 1216 Resp 12 01/06 1216 FiO2 21 12/30 1051 24 hour I O ending at 0700: 01/06 0700 01/05 1900 Intake Total 240 Output Total Balance 240 Intake, Oral 240 Patient 82.5 kg Weight Weight Standing scale Measurement Method PATIENT WEIGHT: Weight (lb): 181Weight (oz): 14.1Weight (kg): 82.500 Medications:Active Meds + DC'd Last 24 HrsHydrocodone Bitart/Acetaminophen (NORCO 10/325) 1 TAB Q4H PRN PRN PO Nitroglycerin (NITROSTAT) 0 .STK-MED ONE SL (DC) Insulin Glargine (Semglee) 10 UNIT BEDTIME SUBQ Warfarin Sodium (COUMADIN) 5 MG DAILY 1700 PO Miscellaneous Information (WARFARIN PHARMACY TO DOSE) 1 EACH ASDIR PO (CKD) Insulin Glargine (Semglee) 20 UNIT DAILY SUBQ Morphine Sulfate (morphine SULFATE) 4 MG Q4H PRN PRN IV Hydrocodone Bitart/Acetaminophen (NORCO 10/325) 1 TAB Q4H PRN PRN PO (DC) Spironolactone (ALDACTONE) 25 MG DAILY PO Clonazepam (KlonoPIN) 0.5 MG BID PO Heparin Sodium (HEPARIN 5000 UNITS/ML) 5,000 UNIT ASDIR PRN PRN IV Heparin Sodium (HEPARIN 5000 UNITS/ML) 2,500 UNIT ASDIR PRN PRN IV Heparin Sodium (Porcine) (HEPARIN 25,000 UNITS/ 1/2NS 500ML) 500 ML ASDIR IV (CKD) Polyethylene Glycol (MIRALAX) 17 GM DAILY PO Senna/Docusate Sodium (SENOKOT S) 1 TAB DAILY PO Amiodarone HCl (AMIODARONE HCL) 400 MG BID 9A 5P PO (CKD) Valsartan (DIOVAN) 80 MG DAILY PO Atorvastatin Calcium (LIPITOR) 40 MG BEDTIME PO Insulin Human Lispro (HUMALOG) 0 AC HS SUBQ Glucagon (GLUCAGON) 1 MG DAILY PRN PRN IM Aspirin (ASPIRIN) 81 MG DAILY PO Metoprolol Succinate (TOPROL XL) 25 MG DAILY PO Nitroglycerin (NITROSTAT) 0.4 MG Q5M PRN PRN SL Physical ExamGeneral appearance: alert, awake, orientedCardiovascular: CV assessment: regular rate and rhythmRespiratory: no distressAbdomen: soft, non-tenderExtremities: moves allNeuro/PLASTICS 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, oriented X 3, normal gait, normal speechSkin: dryFindings/Data:Laboratory Tests: 0301/06 1214 1213 0725 0400Chemistry POC Glucose (70 - 110 MG/DL) 136 H 261 HCoagulation INR (0.8 - 1.2) 1.2 PTT ([place]) (25.0 - 39.5 Seconds) 56.8 H PT Patient/Control Mix (9.3 - 12.9 SECONDS) 13.3 H 01/06 01/05 01/05 01/05 0400 2030 2018 1725Chemistry Sodium (134 - 147 mEq/L) 135 Potassium (3.4 - 5.0 mEq/L) 4.5 Chloride (100 - 108 mEq/L) 101 Carbon Dioxide (21 - 33 mEq/l) 30 Anion Gap (0 - 20) 9 BUN (7 - 25 mg/dL) 19 Creatinine (0.6 - 1.3 mg/dL) 1.2 Glomerular Filtr Rate (90 - 95) 71.9 L Glucose (77 - 141 mg/dL) 262 H POC Glucose (70 - 110 MG/DL) 160 H 203 H Calcium (8.0 - 10.5 mg/dL) 9.3 Magnesium (1.6 - 2.6 mg/dL) 1.98Coagulation PTT ([place]) (25.0 - 39.5 Seconds) 78.6 H 71.0 HHematology WBC (4.5 - 11.0 x10 3/uL) 7.8 RBC (4.00 - 5.60 x10 6/uL) 5.53 Hgb (12.5 - 16.9 g/dL) 16.1 Hct (37.5 - 50.7 %) 47.6 MCV (81.0 - 99.0 fL) 86.1 MCH (27.0 - 33.0 pg) 29.1 MCHC (33.0 - 37.0 g/dL) 33.8 RDW (11.5 - 14.5 %) 13.2 Plt Count (150 - 400 x10 3/uL) 211 MPV (7.0 - 9.0 fL) 10.2 H Neut % (Auto) (56.0 - 77.0 %) 60.0 Lymph % (Auto) (14.0 - 32.0 %) 24.1 Marion % (Auto) (4.8 - 9.0 %) 7.4 Eos % (Auto) (0.3 - 3.7 %) 5.9 H Baso % (Auto) (0.0 - 2.0 %) 1.2 Neut # (Auto) (2.0 - 7.6 x10 3/uL) 4.65 Lymph # (Auto) (1.0 - 3.8 x10 3/uL) 1.87 Marion # (Auto) (0.1 - 0.8 x10 3/uL) 0.57 Eos # (Auto) (0.0 - 0.2 x10 3/uL) 0.46 H Baso # (Auto) (0.0 - 0.2 x10 3/uL) 0.09 Abs Immat Gran (auto) (0.00 - 0.03 x10 3/uL) 0.11 H Immature Gran % (0.0 - 2.0 %) 1.4 Nucleated RBC % (0 - 0 %) 0.0 Nucleated RBCs # (Man) (0.0 - 0.1 x10 3/uL) 0.00 Laboratory Tests 01/06 0400 Chemistry Magnesium (1.6 - 2.6 mg/dL) 1.98 Diagnosis, Assessment PlanFree Text A P:The patient is a 53 y.o male with medical history of CAD (PCI to prox and mid LAD in 02/2023), HTN, DM and HLD. He recently had LHC at [facility] due to frequent chest pain and was referred to come here for CABG. The patient was recently admitted to [facility] on 11/27/23 for CABG work-up and surgery was scheduled for 11/30/23 but cancelled due to LV thrombus. He was discharged on LifeVest, anticoagulant (eliquis), and planning for CABG in 2-3 months. ECHO on 11/28/23, LVEF was 30-34%. The patient reports went to [facility] in [place] because had frequent chest pain and LifeVest alarming occurred few times, deniesLifeVest shocks. He was found to have episodes of VT, started on Amiodarone bolus/drip, and transfered to [facility] on 12/27/23 for further evaluation. 1. CMP-ECHO (12/28/23): LVEF 25-29%-LIFEVEST in possession-recommend GDMT/LIFEVEST x3 mos.-ok to d/c from EP standpoint 2. NSVT-currently SR 50s-AA therapy, amiodarone 400mg bid + metop succ 25mg daily-no recurrence this admission 3. CAD-s/p PCI, 02/2023-s/p LHC; severe-s/p viability study; nonviable myocardium-per CTS, not a candidate for CABG 4. LV thrombus-s/p CTA heart-AC warfarin, heparin IV gtt-INR 1.2 Consultants: cardiology, cardiovascular surgery, critical/residential designer, hospitalist at 1030 at 1119 RPT #:[id number] OF REPORTPRProgress [id number]:21:00G.[id number] able for patient rzdmNIDRXOULREKGMB0274-70-84G52:31:04 [facility] 2024-01-07 13:07:00 [id number] aezN530SvJxlgqUUzeFFX6htzgNZ6 2/st1JY6bJy0LRZzXReCEk/rGrg4398-00-36G08:07:00 [facility] CentralCardioth[facility] Surgery ProgREPORT#:[id number] REPORT STATUS: SignedREPORT INITIALIZATION DATE:01/07/24 TIME: 130 PATIENT: CHARAN RESTREPO UNIT #: [id number]#: [id number] ROOM[facility]BED: [facility]DOB: [birth year] AGE: 53 SEX: M ATTEND: Jac Marsh MDADM AUTHOR: Dia Baird PhysicREPT SERVICE DT/TIME: 01/07/24 1307* ALL edits or amendments must be made on the electronic/computer document * SubjectiveChief complaint:chest pain V-tach CAD Pre op CABG LV thrombus Review of SystemsConstitutional:Denies: chills, fatigue, fever. Skin:Denies: abrasion, bruising, diaphoresis. Allergy/Immun:Denies: allergic reaction, anaphylaxis, itching. Musculoskeletal:Denies: arthritis, extremity pain, extremity swelling. Heme:Denies: adenopathy, bleeding, bruising. Neuro:Denies: change in LOC, confusion, dizziness, seizure, syncope. All systems rev neg: except as marked Objective GeneralVS/I OLast Documented: Result Date Time Pulse Ox 100 01/06 1216 B/P 122/65 01/06 1216 B/P Mean 0.0 01/06 1216 O2 Delivery Room air 01/06 1216 Temp 97.7 01/06 1216 Pulse 56 01/06 1216 Resp 12 01/06 1216 FiO2 21 12/30 1051 24 hour I O ending at 0700: 01/06 0700 01/05 1900 Intake Total 240 Output Total Balance 240 Intake, Oral 240 Patient 82.5 kg Weight Weight Standing scale Measurement Method PATIENT WEIGHT: Weight (lb): 181Weight (oz): 14.1Weight (kg): 82.500 Physical ExamGeneral appearance: alert, awake, orientedHEENT: anicteric, mucosal membranes moist, pupils reactive to lightNeck: full range of motion, non-tenderCardiovascular: normal heart sounds, regular rate rhythmRespiratory: aerating well, symmetric expansionAbdomen: soft, non-tenderGenitourinary: no bladder distention, no flank pain, no foleyExtremities: dry, moves allMusculoskeletal: full range of motion, painless range of motionNeuro/PLASTICS 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, CNII-XII intactSkin: dry, intactPsychiatry: normal affect, normal mood Diagnosis, Assessment PlanHospital course to date:This is a 53-year-old gentleman with past medical history of coronary artery disease status post previous PCI in the past, hypertension, diabetes, hyperlipidemia, smoker 1 ppd/40 years, and chronic pain who presented to [facility] with complaints of life vest alarming and V-tach. Patient denies any shocks. He was started on an amiodarone drip and transferred to [facility] for further evaluation. 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 He was taken to the operating room where during the intraoperative ANAND there is some suspicion for thrombus, after talking with the patient's wool broker we decided to cancel surgery due to the increase risk of thromboembolic event. Cardiac CT was done, and patient was started on eliquis and discharged home with life vest with a plan for CABG 2-3 months once LV thrombus resolved. CV surgery was consulted for further evaluation. ECHO 1. Left ventricle: The cavity size is mildly dilated. Wall thickness is mildly increased. Systolic function is severely reduced. The estimated ejection fraction is 25-29%. Akinesis of the apical wall. Akinesis of the anterior wall. Hypokinesis of the lateral wall. Grade I diastolic dysfunction.2. Right ventricle: The RV pressure during systole is 31 mm Hg.3. Left atrium: The atrium is moderately dilated.4. Mitral valve: There is mild regurgitation.5. Tricuspid valve: There is mild regurgitation.6. Pericardium, extracardiac: A small pericardial effusion is identified anterior to the heart. Patient in stable conditionEP and cardiology followingWill discuss with team regarding timing of surgeryFurther recommendations to follow. 12/30/23Patient in stable conditionLabs reviewedCTA heart Discontinue eliquisStart heparin dripPlan of care discussed with the patient, all questions were answered. 12/31/23Patient doing well, denies complaintsDenies chest pain, continue heparin dripLabs reviewedPending CTA heart, further recommendations to followPlan of care discussed with the patient, all questions were answered 01/01/24Patient seen and examined, denies complaintsContinue heparin dripCTA heart pendingFurther recommendations to follow 01/02/24Denies complaintsContinue heparin infusionModerate-sized thrombus seen on CTA heartFurther recommendations to follow 01/03/24Patient alert, awake, orientedLabs reviewedDenies complaints, denies chest pain, continue heparin infusion.Will obtain nuc med myocardial perfusion study to evaluate myocardial viabilityCase to be presented at complex cardiology conference and further recommendations to follow. 01/04/24Patient seen and examined, denies complaintsPatient presented at complex cardiology conference and recommendations are for viability study or cardiac MRI.Further recommendations to followDiscussed with patient the plan, all questions were answered 01/05/24Patinet resting comfortable. Patient will need cardiac MRI in outpatent setting. Will need to transistion to coumadin. Starting dose ordered for pharmacyon room air. Sinus rhythm. Patient seen and examined by Dr Mayfield. Plan of care discussed with patient, all questions answered. 01/06/24Patient resting comfortableNo new complaintOn Coumadin, managed by pharmacy. Continues on heparin dripSinus rhythmPatient seen and examined Dr. Mayfield.Continue to monitor INR. Patient will need therapeutic INR, plan for discharge and outpatient cardiac MRI 01/07/24Patient restingDenies complaintsOn Coumadin. INR 1.2, managed by pharmacy.Nitroglycerin enhance viability study scheduled for this afternoon per cardiologyPatient may be discharged home when okay with cardiology. Patient will need therapeutic INR.Patient seen and examined Dr. Mayfield. Outpatient cardiac MRI can be arranged by carton stapler: cardiology, cardiovascular surgery, critical/residential designer, hospitalist at 1309 at 1959 RPT #:[id number] OF REPORTPRProgress [id number]:07:00G.[id number] able for patient qijsNOVWBPVGMANMPV1506-89-96J11:10:15 [facility] 2024-01-07 10:15:00 [id number] +wKuzKRnDi22xo4rH5E+q4uPcKveQ +Q7kQIydi9EDej4YCussDYmEpjP2699-65-15Y89:15:00 [facility] Prog.Note-AnticoagREPORT#:[id number] REPORT STATUS: SignedREPORT INITIALIZATION DATE:01/07/24 TIME: 1015 PATIENT: CHARAN RESTREPO UNIT #: [id number]#: [id number] [address] [birth year] AGE: 53 SEX: M ATTEND: Jac Marsh MDA AUTHOR: Fei Faith RPhREPT SERVICE DT/TIME: 01/07/24 1015* ALL edits or amendments must be made on the electronic/computer document * Anticoagulation AnticoagulationGoal INR: 2 - 3INR/med table: INR Date/Time INR Warfarin Dose Interactions/Notes 01/04 1 5 mg heparin drip bridge 01/05 1 5 mg 01/06 1.2 5 mg heparin drip bridge Indication for treatment: LV thrombusActual weight (kg):82.500 VS and I/O:Vital Signs Date Temp Pulse Resp B/P B/P Mean Pulse Ox FiO2 01/03-01/06 36.3-36.9 53-64 12-21 96-137/56-74 0.0-91 95-100 72 hours ending at 0700 01/06 0700 01/05 1900 01/05 0700 01/04 1900 01/04 01/03 0700 1900Intake 240 1058.00TotalOutputTotalBalance 240 1058.00 Intake, IV 218.00Intake, 240 840OralNumber 3VoidsPatient 82.5 kg 80.5 kg 82 kgWeightWeight Standing Standing Standing scale scale scaleMeasurementMethod 72 Hour I O Total 01/06 0700 01/05 0701/04 0700 Intake Total 240 1058.00 Output Total Balance 240 1058.00 Labs:Laboratory Tests: 01/06 01/05 01/04 0400 0505 0320 Chemistry Total Bilirubin (0.0 - 1.0 mg/dL) 0.50 AST (8 - 34 IUnit/L) 21 ALT (10 - 49 IUnit/L) 32 Albumin (3.4 - 5.0 g/dL) 4.00 Hematology Hgb (12.5 - 16.9 g/dL) 16.1 16.0 16.0 Hct (37.5 - 50.7 %) 47.6 47.3 47.1 Plt Count (150 - 400 x10 3/uL) 211 197 200 PT/INR 72 Hr Trend: 01/06 01/05 01/04 0400 0505 1503 Coagulation INR (0.8 - 1.2) 1.2 1.0 1.0 Treatment plan: cont current regimen/doseRegimen:HPI: 53-year-old gentleman with past medical history of coronary artery disease status post previous PCI in the past, hypertension, diabetes, hyperlipidemia, smoker 1 ppd/40 years, and chronic pain who presented to [facility] with complaints of life vest alarming and V-tach. CTA showed LV thrombus - currently on heparin drip. Starting on warfarin today. Consulting provider: Dia Baird PAIndication: LV thrombusGoal INR: 2-3Diet: cardiac dietInteracting meds: -Increased INR: amiodarone-Increased risk of bleed: aspirin, heparin bridge A/P:* INR 1.2, subtherapeutic however has only had 1 dose so far. H/H/PLT: 16.1/47.6/211 - no reported s/sx of bleeding. * Patient currently on heparin drip bridging to warfarin. * Will continue with the 5 mg PO daily regimen. Continue heparin drip for now until 2 consecutive INR readings between 2-3. * INR ordered until 01/13. * Pharmacy will continue to monitor. at [facility] RPT #:[id number] OF REPORTPRProgress [id number]:15:00G.[id number] able for patient dbvgFZFBBYWUSHDDSC9258-87-19E19:24:48 [facility] 2024-01-07 09:10:00 [id number] BG11DVRtQfYyWOcC3eQ2QdHqKrEmt [id number]8-89-90S97:10:00 [facility] Progress NoteREPORT#:[id number] REPORT STATUS: SignedREPORT INITIALIZATION DATE:01/07/24 TIME: 909 PATIENT: CHARAN RESTREPO UNIT #: [id number]#: [id number] [address] [birth year] AGE: 53 SEX: M ATTEND: Jac Marsh AUTHOR: Hortencia StevensonPREPT SERVICE DT/TIME: 01/07/24 0910* ALL edits or amendments must be made on the electronic/computer document * SubjectiveChief complaint:Pt wants morphine and Ringwood to go home with. His Pain Management doc isDrMelvina Gill. Review of SystemsAll systems rev neg: except as noted Objective GeneralVS/I O:Vital Signs: Date Time Temp Pulse Resp B/P B/P Pulse O2 O2 Flow FiO2 Mean Ox Delivery Rate 01/06 0826 64 18 135/70 91 98 Room air 01/06 0729 97.5 56 12 111/67 0.0 95 Room air 01/06 0433 97.7 59 19 112/62 0.0 97 Room air 01/05 2238 97.5 57 20 118/65 82.9 96 Room air 01/05 1801 97.7 54 19 116/63 0.0 97 Room air 24 hour I O ending at 0700: 01/06 0700 01/05 1900 Intake Total 240 Output Total Balance 240 Intake, Oral 240 Patient 82.5 kg Weight Weight Standing scale Measurement Method PATIENT WEIGHT: Weight (lb): 181Weight (oz): 14.1Weight (kg): 82.500 Medications:Active Meds + DC'd Last 24 HrsInsulin Glargine (Semglee) 10 UNIT BEDTIME SUBQ Warfarin Sodium (COUMADIN) 5 MG DAILY 1700 PO Miscellaneous Information (WARFARIN PHARMACY TO DOSE) 1 EACH ASDIR PO (CKD) Insulin Glargine (Semglee) 20 UNIT DAILY SUBQ Morphine Sulfate (morphine SULFATE) 4 MG Q4H PRN PRN IV Hydrocodone Bitart/Acetaminophen (NORCO 10/325) 1 TAB Q4H PRN PRN PO Spironolactone (ALDACTONE) 25 MG DAILY PO Clonazepam (KlonoPIN) 0.5 MG BID PO Heparin Sodium (HEPARIN 5000 UNITS/ML) 5,000 UNIT ASDIR PRN PRN IV Heparin Sodium (HEPARIN 5000 UNITS/ML) 2,500 UNIT ASDIR PRN PRN IV Heparin Sodium (Porcine) (HEPARIN 25,000 UNITS/ 1/2NS 500ML) 500 ML ASDIR IV (CKD) Polyethylene Glycol (MIRALAX) 17 GM DAILY PO Senna/Docusate Sodium (SENOKOT S) 1 TAB DAILY PO Amiodarone HCl (AMIODARONE HCL) 400 MG BID 9A 5P PO (CKD) Valsartan (DIOVAN) 80 MG DAILY PO Atorvastatin Calcium (LIPITOR) 40 MG BEDTIME PO Insulin Human Lispro (HUMALOG) 0 AC HS SUBQ Glucagon (GLUCAGON) 1 MG DAILY PRN PRN IM Aspirin (ASPIRIN) 81 MG DAILY PO Metoprolol Succinate (TOPROL XL) 25 MG DAILY PO Nitroglycerin (NITROSTAT) 0.4 MG Q5M PRN PRN SL Dietitian nutrition assessmentThe data set between the solid lines has been imported from the dietitian's assessment. BMI Calculated: 26.1Nutrition related diagnosis: Nutrition diagnosis details: Nutrition problem: Nutrition etiology: Nutrition signs and symptoms: Nutrition prescription: Dietitian name: Assessment completed: Physical ExamGeneral appearance: alert, awake, orientedHead/Eyes: atraumatic, normocephalicENT: moist mucosal membranesNeck: no JVDCardiovascular: normal heart sounds, regular rate rhythmRespiratory: clear to auscultation, no distressAbdomen: normal bowel sounds, softGenitourinary: no bladder distentionExtremities: no edemaMusculoskeletal: normal inspectionNeuro/PLASTICS 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, normal speechSkin: intact, no rashPsychiatry: normal affect, normal mood ResultsFindings/Data:Laboratory Tests 01/06 01/06 01/05 01/05 01/05 0725 0 2018 1725 1141 Chemistry Sodium (134 - 147 mEq/L) 135 Potassium (3.4 - 5.0 mEq/L) 4.5 Chloride (100 - 108 mEq/L) 101 Carbon Dioxide (21 - 33 mEq/l) 30 Anion Gap (0 - 20) 9 BUN (7 - 25 mg/dL) 19 Creatinine (0.6 - 1.3 mg/dL) 1.2 Glomerular Filtr Rate (90 - 95) 71.9 L Glucose (77 - 141 mg/dL) 262 H POC Glucose (70 - 110 MG/DL) 261 H 160 H 203 H 140 H Calcium (8.0 - 10.5 mg/dL) 9.3 Magnesium (1.6 - 2.6 mg/dL) 1.98 Laboratory Tests 01/06 01/06 01/05 0400 0400 2031 Coagulation INR (0.8 - 1.2) 1.2 PTT ([place]) (25.0 - 39.5 Seconds) 78.6 H 71.0 H PT Patient/Control Mix (9.3 - 12.9 SECONDS) 13.3 H Laboratory Tests 01/06 0400 Hematology WBC (4.5 - 11.0 x10 3/uL) 7.8 RBC (4.00 - 5.60 x10 6/uL) 5.53 Hgb (12.5 - 16.9 g/dL) 16.1 Hct (37.5 - 50.7 %) 47.6 MCV (81.0 - 99.0 fL) 86.1 MCH (27.0 - 33.0 pg) 29.1 MCHC (33.0 - 37.0 g/dL) 33.8 RDW (11.5 - 14.5 %) 13.2 Plt Count (150 - 400 x10 3/uL) 211 MPV (7.0 - 9.0 fL) 10.2 H Neut % (Auto) (56.0 - 77.0 %) 60.0 Lymph % (Auto) (14.0 - 32.0 %) 24.1 Marion % (Auto) (4.8 - 9.0 %) 7.4 Eos % (Auto) (0.3 - 3.7 %) 5.9 H Baso % (Auto) (0.0 - 2.0 %) 1.2 Neut # (Auto) (2.0 - 7.6 x10 3/uL) 4.65 Lymph # (Auto) (1.0 - 3.8 x10 3/uL) 1.87 Marion # (Auto) (0.1 - 0.8 x10 3/uL) 0.57 Eos # (Auto) (0.0 - 0.2 x10 3/uL) 0.46 H Baso # (Auto) (0.0 - 0.2 x10 3/uL) 0.09 Abs Immat Gran (auto) (0.00 - 0.03 x10 3/uL) 0.11 H Immature Gran % (0.0 - 2.0 %) 1.4 Nucleated RBC % (0 - 0 %) 0.0 Nucleated RBCs # (Man) (0.0 - 0.1 x10 3/uL) 0.00 Results: labs reviewed, vital signs reviewed, vital signs stable Diagnosis, Assessment PlanConsultants: cardiology, cardiovascular surgery, critical/residential designer, hospitalist Free Text DxA P NotesFree text DxA P notes:Non-sustained V-tachy, on Amiodarone dripChest pain 2/2 aboveLife vest stopped firingTobacco abuseDiabetic Mellitus II with hyperglycemiaHx Left atrial clot (on Eliquis)Hx Diabetes Mellitus IIHx CAD [facility]Ad[facility] CardiologyConsult Critical careContinous Telemetry monitoring - to assess for any arrythmiasEcho pending : Last Echo 11/29/23-EF 30-34%, grade 1 diastolic dysfunctionVital signs as per unit protocolAmiodarone drip @ 0.5mg/hrNPO for nowOptimize blood glucose, Hold Lantus Insulin while patient NPO/ use Humalog SSI coverage PRNElectrolyte monitoring and replacement as per Critical care followingLife vest off, pending cardiology evaluationBlood pressure acceptableHome meds restartedLeft atrial clot: AC EliquisCAD: Lipitor/Metoprolol/AspirinSmoking cessation counseling- discussed with patient the importants of quiting smoking and he is aware that continued smoking will complicate his current cardiac situation as well as other health problems such as cancer and poor circulation to his lower extremities and chest pain.He verablized undestanding, Offered patient Nicotine patch but he declined.Pain control: [place] PRNDVT ppx: JAYLEN Corrales in [facility]-X-Ray:No acute cardiopulmonary process.Plan of care discussed with patient/NurseFurther rec's as per clinical course. 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 detailer furniture patient has been cleared to transfer out of ccu to cv1 while awaiting workup 12/31/23- heparin gtt- cta pending- ssi/fingersticks- smoking cessation- [facility] is [facility] and patient likely for cabg- workup in progress 01/01/24- heparin gtt- CABG evaluation - Continue Eliquis, aspirin, statin and beta-luís.- Continue metoprolol succinate, and valsartan and Farxiga. - consult EP. Patient has a LifeVest on.- cta pending- ssi/fingersticks- smoking cessation 01/02/24Continue Heparin gttPending CT surgery input on CABG evaluationContinue Eliquis, aspirin, statin and beta-luís.Continue metoprolol succinate, and valsartan and Farxiga. Nicotine patch if pt would likeBP and BS at targetDispo: pending CT surgery input 01/03/24Pt states morphine is only thing helping with ongoing chest pain. Would like togo home soon with IV heparn drip and IV morphine.CT surgery plans on presenting tomorrow in difficult case conference due to thrombus in heart complicating plan on having CABG - await planContinue heparin drip for moderate sized thrombus anterior cardiac wall.CAD: continue ASA, statin, BBIschemic CM: continue metoprolol succinate, valsartan, FarxigaBP and BS at target, labs reviewed 01/04/24Cont heparin drip for moderate sized thrombus anterior cardiac wall.CAD: continue ASA, statin, BBIschemic CM: continue metoprolol succinate, valsartan, FarxigaBP and BS at target, labs reviewedPending CV surgery input after case conference today 01/05/24Cont heparin drip for moderate sized thrombus anterior cardiac wall.CV surgery recommending further cardiac work up with cardiac MRI vs viability testing before coming to conclusion about timing of surgeryCAD: continue ASA, statin, BBIschemic CM: continue metoprolol succinate, valsartan, FarxigaBP at targetBS elevated, add Lantus 10 units qhs, continue SSI high scale, Lantus 20 units qamPt irritated at long stay, d/c when cleared by CV surgery 01/06/24Current plan is to bridge Coumadin with heparin and then d/c to home when Coumadin is therapeutic. Once cardiac thrombus eliminated, will resume w/u for CAB outpt with Dr. Valle: continue ASA, statin, BBIschemic CM: continue metoprolol succinate, valsartan, FarxigaBP at targetBS still high, give changes made yesterday another day before adjusting.Pt has chronic pain, wants to go home with Ring[place] and morphine. Consult his painmanagement physician, Dr. Gill to adjust pain meds to ease disposition to home. 01/07/24bridging Coumadin with heparin -inr 1.2trending labs-inr in am Ischemic CM: continue metoprolol succinate, valsartan, Farxiga-cardiology following BP acceptable BS remains high, ssi adjustedPt has chronic pain, wants to go home with Ring[place] and morphine. Consult his painmanagement physician, Dr. Gill to adjust pain meds to ease disposition to home. Dispo: therapeutic inr 2-3once cardiac thrombus eliminated. Patient will need follow up for CABG as outpt with Dr. Mayfield at 1034 RPT #:[id number] OF REPORTPRProgress [id number]:10:00G.[id number] able for patient agwsQCBZJBCHOJYSJY3699-69-56R97:35:10 [facility] 2024-01-06 16:00:00 [id number] xpjrEWvbx9wXJYx3BbfzT+uJfIi0E NzuukDpVNHtD9up6mwuTCTpI+8C4678-68-53M61:00:00 [facility] Hospitalist Progress NoteREPORT#:[id number] REPORT STATUS: SignedREPORT INITIALIZATION DATE:01/06/24 TIME: 1600 PATIENT: CHARAN RESTREPO UNIT #: [id number]#: [id number] [address]DOB: [birth year] AGE: 53 SEX: M ATTEND: Marycruz Villalba MDA AUTHOR: Jane Barrios DOREPT SERVICE DT/TIME: 01/06/24 1600* ALL edits or amendments must be made on the electronic/computer document * SubjectiveChief complaint:Pt wants morphine and Ringwood to go home with. His Pain Management doc is Dr. Gill. Objective GeneralVS/I O:Vital Signs: Date Time Temp Pulse Resp B/P B/P Pulse O2 O2 Flow FiO2 Mean Ox Delivery Rate 01/05 07 97.7 60 14 119/57 0.0 97 Room air 01/05 0317 97.9 62 19 113/63 0.0 99 Room air 01/04 2352 97.5 60 18 96/56 0.0 99 Room air 01/04 1804 97.5 53 19 108/58 0.0 96 Room air 24 hour I O ending at 0700: 01/05 0700 01/04 1900 Intake Total Output Total Balance Patient 80.5 kg Weight Weight Standing scale Measurement Method PATIENT WEIGHT: Weight (lb): 177Weight (oz): 7.55Weight (kg): 80.500 Medications:Active Meds + DC'd Last 24 HrsInsulin Glargine (Semglee) 10 UNIT BEDTIME SUBQ Warfarin Sodium (COUMADIN) 5 MG DAILY 1700 PO Miscellaneous Information (WARFARIN PHARMACY TO DOSE) 1 EACH ASDIR PO (CKD) Insulin Glargine (Semglee) 20 UNIT DAILY SUBQ Morphine Sulfate (morphine SULFATE) 4 MG Q4H PRN PRN IV Hydrocodone Bitart/Acetaminophen (NORCO 10/325) 1 TAB Q4H PRN PRN PO Spironolactone (ALDACTONE) 25 MG DAILY PO Clonazepam (KlonoPIN) 0.5 MG BID PO Heparin Sodium (HEPARIN 5000 UNITS/ML) 5,000 UNIT ASDIR PRN PRN IV Heparin Sodium (HEPARIN 5000 UNITS/ML) 2,500 UNIT ASDIR PRN PRN IV Heparin Sodium (Porcine) (HEPARIN 25,000 UNITS/ 1/2NS 500ML) 500 ML ASDIR IV (CKD) Polyethylene Glycol (MIRALAX) 17 GM DAILY PO Senna/Docusate Sodium (SENOKOT S) 1 TAB DAILY PO Amiodarone HCl (AMIODARONE HCL) 400 MG BID 9A 5P PO (CKD) Valsartan (DIOVAN) 80 MG DAILY PO Atorvastatin Calcium (LIPITOR) 40 MG BEDTIME PO Insulin Human Lispro (HUMALOG) 0 AC HS SUBQ Glucagon (GLUCAGON) 1 MG DAILY PRN PRN IM Aspirin (ASPIRIN) 81 MG DAILY PO Metoprolol Succinate (TOPROL XL) 25 MG DAILY PO Nitroglycerin (NITROSTAT) 0.4 MG Q5M PRN PRN SL Physical ExamGeneral appearance: alert, awake, oriented, no acute distress, pleasant, conversational, mental status normalHead/Eyes: atraumatic, normocephalicENT: moist mucosal membranesNeck: no JVDCardiovascular: normal heart sounds, regular rate rhythmRespiratory: clear to auscultation, no distressAbdomen: normal bowel sounds, softGenitourinary: no bladder distentionExtremities: no edemaMusculoskeletal: normal inspectionNeuro/PLASTICS 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, normal speechSkin: intact, no rashPsychiatry: normal affect, normal mood ResultsFindings/Data:Laboratory Tests 01/05 01/05 01/05 01/05 01/04 1141 0813 0725 0505 1957 Chemistry Sodium (134 - 147 mEq/L) 134 Potassium (3.4 - 5.0 mEq/L) 4.5 Chloride (100 - 108 mEq/L) 104 Carbon Dioxide (21 - 33 mEq/l) 23 Anion Gap (0 - 20) 12 BUN (7 - 25 mg/dL) 13 Creatinine (0.6 - 1.3 mg/dL) 0.9 Glomerular Filtr Rate (90 - 95) 101.5 H Glucose (77 - 141 mg/dL) 213 H POC Glucose (70 - 110 MG/DL) 140 H 213 H 297 H 265 H Calcium (8.0 - 10.5 mg/dL) 9.2 Phosphorus (2.5 - 4.9 MG/DL) 4.2 Magnesium (1.6 - 2.6 mg/dL) 1.93 Laboratory Tests 01/05 0505 Coagulation INR (0.8 - 1.2) 1.0 PTT ([place]) (25.0 - 39.5 Seconds) 87.3 H PT Patient/Control Mix (9.3 - 12.9 SECONDS) 11.6 Laboratory Tests 01/05 0505 Hematology WBC (4.5 - 11.0 x10 3/uL) 7.9 RBC (4.00 - 5.60 x10 6/uL) 5.50 Hgb (12.5 - 16.9 g/dL) 16.0 Hct (37.5 - 50.7 %) 47.3 MCV (81.0 - 99.0 fL) 86.0 MCH (27.0 - 33.0 pg) 29.1 MCHC (33.0 - 37.0 g/dL) 33.8 RDW (11.5 - 14.5 %) 13.3 Plt Count (150 - 400 x10 3/uL) 197 MPV (7.0 - 9.0 fL) 10.1 H Neut % (Auto) (56.0 - 77.0 %) 56.4 Lymph % (Auto) (14.0 - 32.0 %) 25.4 Marion % (Auto) (4.8 - 9.0 %) 8.9 Eos % (Auto) (0.3 - 3.7 %) 6.7 H Baso % (Auto) (0.0 - 2.0 %) 1.3 Neut # (Auto) (2.0 - 7.6 x10 3/uL) 4.46 Lymph # (Auto) (1.0 - 3.8 x10 3/uL) 2.01 Marion # (Auto) (0.1 - 0.8 x10 3/uL) 0.70 Eos # (Auto) (0.0 - 0.2 x10 3/uL) 0.53 H Baso # (Auto) (0.0 - 0.2 x10 3/uL) 0.10 Abs Immat Gran (auto) (0.00 - 0.03 x10 3/uL) 0.10 H Immature Gran % (0.0 - 2.0 %) 1.3 Nucleated RBC % (0 - 0 %) 0.0 Nucleated RBCs # (Man) (0.0 - 0.1 x10 3/uL) 0.00 Diagnosis, Assessment PlanConsultants: cardiology, cardiovascular surgery, critical/residential designer, hospitalist Free Text DxA P NotesFree text DxA P notes:Non-sustained V-tachy, on Amiodarone dripChest pain 2/2 aboveLife vest stopped firingTobacco abuseDiabetic Mellitus II with hyperglycemiaHx Left atrial clot (on Eliquis)Hx Diabetes Mellitus IIHx CAD [facility]Ad[facility] CardiologyConsult Critical careContinous Telemetry monitoring - to assess for any arrythmiasEcho pending : Last Echo 11/29/23-EF 30-34%, grade 1 diastolic dysfunctionVital signs as per unit protocolAmiodarone drip @ 0.5mg/hrNPO for nowOptimize blood glucose, Hold Lantus Insulin while patient NPO/ use Humalog SSI coverage PRNElectrolyte monitoring and replacement as per Critical care followingLife vest off, pending cardiology evaluationBlood pressure acceptableHome meds restartedLeft atrial clot: AC EliquisCAD: Lipitor/Metoprolol/AspirinSmoking cessation counseling- discussed with patient the importants of quiting smoking and he is aware that continued smoking will complicate his current cardiac situation as well as other health problems such as cancer and poor circulation to his lower extremities and chest pain.He verablized undestanding, Offered patient Nicotine patch but he declined.Pain control: [place] PRNDVT ppx: JAYLEN Corrales in [facility]-X-Ray:No acute cardiopulmonary process.Plan of care discussed with patient/NurseFurther rec's as per clinical course. 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 detailer furniture patient has been cleared to transfer out of ccu to cv1 while awaiting workup 12/31/23- heparin gtt- cta pending- ssi/fingersticks- smoking cessation- [facility] and patient likely for cabg- workup in progress 01/01/24- heparin gtt- CABG evaluation - Continue Eliquis, aspirin, statin and beta-luís.- Continue metoprolol succinate, and valsartan and Farxiga. - consult EP. Patient has a LifeVest on.- cta pending- ssi/fingersticks- smoking cessation 01/02/24Continue Heparin gttPending CT surgery input on CABG evaluationContinue Eliquis, aspirin, statin and beta-luís.Continue metoprolol succinate, and valsartan and Farxiga. Nicotine patch if pt would likeBP and BS at targetDispo: pending CT surgery input 01/03/24Pt states morphine is only thing helping with ongoing chest pain. Would like togo home soon with IV heparn drip and IV morphine.CT surgery plans on presenting tomorrow in difficult case conference due to thrombus in heart complicating plan on having CABG - await planContinue heparin drip for moderate sized thrombus anterior cardiac wall.CAD: continue ASA, statin, BBIschemic CM: continue metoprolol succinate, valsartan, FarxigaBP and BS at target, labs reviewed 01/04/24Cont heparin drip for moderate sized thrombus anterior cardiac wall.CAD: continue ASA, statin, BBIschemic CM: continue metoprolol succinate, valsartan, FarxigaBP and BS at target, labs reviewedPending CV surgery input after case conference today 01/05/24Cont heparin drip for moderate sized thrombus anterior cardiac wall.CV surgery recommending further cardiac work up with cardiac MRI vs viability testing before coming to conclusion about timing of surgeryCAD: continue ASA, statin, BBIschemic CM: continue metoprolol succinate, valsartan, FarxigaBP at targetBS elevated, add Lantus 10 units qhs, continue SSI high scale, Lantus 20 units qamPt irritated at long stay, d/c when cleared by CV surgery 01/06/24Current plan is to bridge Coumadin with heparin and then d/c to home when Coumadin is therapeutic. Once cardiac thrombus eliminated, will resume w/u for CAB outpt with Dr. Valle: continue ASA, statin, BBIschemic CM: continue metoprolol succinate, valsartan, FarxigaBP at targetBS still high, give changes made yesterday another day before adjusting.Pt has chronic pain, wants to go home with [place] and morphine. Consult his painmanagement physician, Dr. Gill to adjust pain meds to ease disposition to home. at 1604 RPT #:[id number] OF REPORTPRProgress [id number]:00:00G.[id number] able for patient nzpqTORBRIQIORGHZT6364-85-74V49:04:24 [facility] 2024-01-06 14:49:00 [id number] [id number]i IvIzn8EXiVrebdp+2uO6Z1TExrB2046-88-35W56:49:00 [facility] Prog.Note-AnticoagREPORT#:[id number] REPORT STATUS: SignedREPORT INITIALIZATION DATE:01/06/24 TIME: 1448 PATIENT: CHARAN RESTREPO UNIT #: [id number]#: [id number] [address] [birth year] AGE: 53 SEX: M ATTEND: Marycruz Villalba [facility] AUTHOR: Coco Rabago [facility] ResidentREPT SERVICE DT/TIME: 01/06/24 1449* ALL edits or amendments must be made on the electronic/computer document * Anticoagulation AnticoagulationGoal INR: 2 - 3INR/med table: INR Date/Time INR Warfarin Dose Interactions/Notes 01/04 1 5 mg heparin drip bridge 01/05 1 5 mg Indication for treatment: LV thrombusDay of therapy:2Actual weight (kg):80.500 VS and I/O:Vital Signs Date Temp Pulse Resp B/P B/P Mean Pulse Ox FiO2 01/02-01/05 97.3-98.4 53-73 12-21 96-137/56-77 0.0-91.9 95-100 72 hours ending at 0700 01/05 0700 01/04 1900 01/04 0700 01/03 1900 01/03 01/02 0700 1900Intake 1058.00 500TotalOutput 800TotalBalance 1058.00 -300 Intake, IV 218.00Intake, 840 500OralNumber 1BowelMovementsNumber 3VoidsOutput, 800UrinePatient 80.5 kg 82 kg 82.6 kgWeightWeight Standing Standing scale scaleMeasurementMethod 72 Hour I O Total 01/05 0700 01/04 0700 01/03 0700 Intake Total 1058.00 500 Output Total 800 Balance 1058.00 -300 Labs:Laboratory Tests: 01/05 01/04 01/03 0505 0320 0358 Chemistry Total Bilirubin (0.0 - 1.0 mg/dL) 0.50 AST (8 - 34 IUnit/L) 21 ALT (10 - 49 IUnit/L) 32 Albumin (3.4 - 5.0 g/dL) 4.00 Hematology Hgb (12.5 - 16.9 g/dL) 16.0 16.0 15.2 Hct (37.5 - 50.7 %) 47.3 47.1 45.6 Plt Count (150 - 400 x10 3/uL) 197 200 179 PT/INR 72 Hr Trend: 01/05 01/04 0505 1503 Coagulation INR (0.8 - 1.2) 1.0 1.0 Treatment plan: consult Assess/PlanFree Text A P:HPI: 53-year-old gentleman with past medical history of coronary artery disease status post previous PCI in the past, hypertension, diabetes, hyperlipidemia, smoker 1 ppd/40 years, and chronic pain who presented to [facility] with complaints of life vest alarming and V-tach. CTA showed LV thrombus - currently on heparin drip. Starting on warfarin today. Consulting provider: Dia Baird PAIndication: LV thrombusGoal INR: 2-3Diet: cardiac dietInteracting meds: -Increased INR: amiodarone-Increased risk of bleed: aspirin, heparin bridge 01/05 A/P* INR 1.0, subtherapeutic. Patient new warfarin start yesterday * CBC stable, no s/sx of bleeding documented* Patient was initiated on Eliquis for suspicious of LV thrombus 1 month ago. Per documentation, patient will need to transition to warfarin* Patient currently on heparin drip bridging to warfarin* Will continue with the 5 mg PO daily regimen. May consider increasing regimen if INR does not increase tomorrow* Continue heparin drip for 5 days and 2 consecutive INR readings.* INR ordered until 01/13 at 1501 RPT #:[id number] OF REPORTPRProgress [id number]:49:00G.[id number] able for patient sbreZBNPAFHURPKQET1094-82-03H86:01:36 [facility] 2024-01-06 13:32:00 [id number] 5e+GR08wXrDbMq/b6Qvps6PzIL7bK IhyRYhsEnNLyrn9c7gb0MfF5Qpv6895-32-33M34:32:00 [facility] CentralCardioth[facility] Surgery ProgREPORT#:[id number] REPORT STATUS: SignedREPORT INITIALIZATION DATE:01/06/24 TIME: 1331 PATIENT: CHARAN RESTREPO UNIT #: [id number]#: [id number] [address] [birth year] AGE: 53 SEX: M ATTEND: Jac Marsh MDADM AUTHOR: Dia Baird PhysicREPT SERVICE DT/TIME: 01/06/24 1332* ALL edits or amendments must be made on the electronic/computer document * SubjectiveChief complaint:chest painV-tachCADPre op CABGLV thrombus Review of SystemsConstitutional:Denies: chills, fatigue, fever. Skin:Denies: abrasion, bruising, diaphoresis. Allergy/Immun:Denies: allergic reaction, anaphylaxis, itching. Musculoskeletal:Denies: arthritis, extremity pain, extremity swelling. Heme:Denies: adenopathy, bleeding, bruising. Neuro:Denies: change in LOC, confusion, dizziness, seizure, syncope. All systems rev neg: except as marked Objective GeneralVS/I OLast Documented: Result Date Time Pulse Ox 97 01/05 727 B/P 119/57 01/05 727 B/P Mean 0.0 01/05 727 O2 Delivery Room air 01/05 727 Temp 97.7 01/05 727 Pulse 60 03/17 0727 Resp 14 01/05 0727 FiO2 21 12/30 1051 24 hour I O ending at 0700: 01/05 0700 01/04 1900 Intake Total Output Total Balance Patient 80.5 kg Weight Weight Standing scale Measurement Method PATIENT WEIGHT: Weight (lb): 177Weight (oz): 7.55Weight (kg): 80.500 Physical ExamGeneral appearance: alert, awake, orientedHEENT: anicteric, mucosal membranes moist, pupils reactive to lightNeck: full range of motion, non-tenderCardiovascular: normal heart sounds, regular rate rhythmRespiratory: aerating well, symmetric expansionAbdomen: soft, non-tenderGenitourinary: no bladder distention, no flank pain, no foleyExtremities: dry, moves allMusculoskeletal: full range of motion, painless range of motionNeuro/PLASTICS 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, CNII-XII intactSkin: dry, intactPsychiatry: normal affect, normal mood Diagnosis, Assessment PlanHospital course to date:This is a 53-year-old gentleman with past medical history of coronary artery disease status post previous PCI in the past, hypertension, diabetes, hyperlipidemia, smoker 1 ppd/40 years, and chronic pain who presented to [facility] with complaints of life vest alarming and V-tach. Patient denies any shocks. He was started on an amiodarone drip and transferred to [facility] further evaluation. 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 He was taken to the operating room where during the intraoperative ANAND there is some suspicion for thrombus, after talking with the patient's wool broker we decided to cancel surgery due to the increase risk of thromboembolic event. Cardiac CT was done, and patient was started on eliquis and discharged home with life vest with a plan for CABG 2-3 months once LV thrombus resolved. CV surgery was consulted for further evaluation. ECHO 1. Left ventricle: The cavity size is mildly dilated. Wall thickness is mildly increased. Systolic function is severely reduced. The estimated ejection fraction is 25-29%. Akinesis of the apical wall. Akinesis of the anterior wall. Hypokinesis of the lateral wall. Grade I diastolic dysfunction.2. Right ventricle: The RV pressure during systole is 31 mm Hg.3. Left atrium: The atrium is moderately dilated.4. Mitral valve: There is mild regurgitation.5. Tricuspid valve: There is mild regurgitation.6. Pericardium, extracardiac: A small pericardial effusion is identified anterior to the heart. Patient in stable conditionEP and cardiology followingWill discuss with team regarding timing of surgeryFurther recommendations to follow. 12/30/23Patient in stable conditionLabs reviewedCTA heart Discontinue eliquisStart heparin dripPlan of care discussed with the patient, all questions were answered. 12/31/23Patient doing well, denies complaintsDenies chest pain, continue heparin dripLabs reviewedPending CTA heart, further recommendations to followPlan of care discussed with the patient, all questions were answered 01/01/24Patient seen and examined, denies complaintsContinue heparin dripCTA heart pendingFurther recommendations to follow 01/02/24Denies complaintsContinue heparin infusionModerate-sized thrombus seen on CTA heartFurther recommendations to follow 01/03/24Patient alert, awake, orientedLabs reviewedDenies complaints, denies chest pain, continue heparin infusion.Will obtain nuc med myocardial perfusion study to evaluate myocardial viabilityCase to be presented at complex cardiology conference and further recommendations to follow. 01/04/24Patient seen and examined, denies complaintsPatient presented at complex cardiology conference and recommendations are for viability study or cardiac MRI.Further recommendations to followDiscussed with patient the plan, all questions were answered 01/05/24Patinet resting comfortable. Patient will need cardiac MRI in outpatent setting. Will need to transistion to coumadin. Starting dose ordered for pharmacyon room air. Sinus rhythm. Patient seen and examined by Dr Mayfield. Plan of care discussed with patient, all questions answered. 01/06/24Patient resting comfortableNo new complaintOn Coumadin, managed by pharmacy. Continues on heparin dripSinus rhythmPatient seen and examined Dr. Mayfield.Continue to monitor INR. Patient will need therapeutic INR, plan for discharge and outpatient cardiac MRI Consultants: cardiology, cardiovascular surgery, critical/residential designer, hospitalist at 1333 at 2002 RPT #:[id number] OF REPORTPRProgress [id number]:32:00G.[id number] able for patient yfnbHBCJTYAABVLZVU2481-93-93A48:33:44 [facility] 2024-01-06 10:37:00 [id number] tKJSpa9f/ZhP6yRZRq206Uw+S8c0076-28-87K19:37:00 [facility])Cardiology Progress NoteREPORT#:[id number] REPORT STATUS: SignedREPORT INITIALIZATION DATE:01/06/24 TIME: 1037 PATIENT: CHARAN RESTREPO UNIT #: [id number]#: [id number] [address] [birth year] AGE: 53 SEX: M ATTEND: Marycruz Villalba MDA AUTHOR: Manuel Cintron MDREPT SERVICE DT/TIME: 01/06/24 1037* ALL edits or amendments must be made on the electronic/computer document * SubjectiveChief complaint:CP, VT, LIfe Vest alarming Objective GeneralVS/I O:24 hour I O ending at 0700: 01/05 0700 01/04 1900 Intake Total Output Total Balance Patient 80.5 kg Weight Weight Standing scale Measurement Method Vital Signs: Date Time Temp Pulse Resp B/P B/P Pulse O2 O2 Flow FiO2 Mean Ox Delivery Rate 01/05 727 36.5 60 14 119/57 0.0 97 Room air 01/05 0317 36.6 62 19 113/63 0.0 99 Room air 01/04 2352 36.4 60 18 96/56 0.0 99 Room air 01/04 1804 36.4 53 19 108/58 0.0 96 Room air 01/04 1536 36.4 57 20 123/69 0.0 100 Room air 01/04 1121 36.5 56 14 120/69 0.0 96 Room air PATIENT WEIGHT: Weight (lb): 177Weight (oz): 7.55Weight (kg): 80.500 Medications:Active Meds + DC'd Last 24 HrsInsulin Glargine (Semglee) 10 UNIT BEDTIME SUBQ Warfarin Sodium (COUMADIN) 5 MG DAILY 1700 PO Miscellaneous Information (WARFARIN PHARMACY TO DOSE) 1 EACH ASDIR PO (CKD) Insulin Glargine (Semglee) 20 UNIT DAILY SUBQ Morphine Sulfate (morphine SULFATE) 4 MG Q4H PRN PRN IV Hydrocodone Bitart/Acetaminophen (NORCO 10/325) 1 TAB Q4H PRN PRN PO Spironolactone (ALDACTONE) 25 MG DAILY PO Clonazepam (KlonoPIN) 0.5 MG BID PO Heparin Sodium (HEPARIN 5000 UNITS/ML) 5,000 UNIT ASDIR PRN PRN IV Heparin Sodium (HEPARIN 5000 UNITS/ML) 2,500 UNIT ASDIR PRN PRN IV Heparin Sodium (Porcine) (HEPARIN 25,000 UNITS/ 1/2NS 500ML) 500 ML ASDIR IV (CKD) Polyethylene Glycol (MIRALAX) 17 GM DAILY PO Senna/Docusate Sodium (SENOKOT S) 1 TAB DAILY PO Amiodarone HCl (AMIODARONE HCL) 400 MG BID 9A 5P PO (CKD) Valsartan (DIOVAN) 80 MG DAILY PO Atorvastatin Calcium (LIPITOR) 40 MG BEDTIME PO Insulin Human Lispro (HUMALOG) 0 AC HS SUBQ Glucagon (GLUCAGON) 1 MG DAILY PRN PRN IM Aspirin (ASPIRIN) 81 MG DAILY PO Metoprolol Succinate (TOPROL XL) 25 MG DAILY PO Nitroglycerin (NITROSTAT) 0.4 MG Q5M PRN PRN SL Physical ExamNeck: full range of motion, non-tender, normal thyroid, supple/no meningismus, no bruit/NL carotids, no JVD, no lymphadenopathy, no masses or swellingCardiovascular: CV assessment: regular rate and rhythmRespiratory: clear to auscultation, no distressAbdomen: non-tender, normal bowel sounds, no distention, no guarding, no mass/organomegaly, no pulsatile mass, no reboundUpper extremity: UE assessment: normal capillary refill, no edemaLower extremity: LE assessment: normal capillary refill, no edemaMusculoskeletal: normal inspectionNeuro/PLASTICS 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, oriented X 3, normal speechSkin: dry, intact, normal colorPsychiatry: normal affect, normal judgment/insight, normal mood ResultsFindings/Data:Laboratory Tests 01/05 01/05 01/05 01/04 01/04 0813 0725 0505 1957 1538 Chemistry Sodium (134 - 147 mEq/L) 134 Potassium (3.4 - 5.0 mEq/L) 4.5 Chloride (100 - 108 mEq/L) 104 Carbon Dioxide (21 - 33 mEq/l) 23 Anion Gap (0 - 20) 12 BUN (7 - 25 mg/dL) 13 Creatinine (0.6 - 1.3 mg/dL) 0.9 Glomerular Filtr Rate (90 - 95) 101.5 H Glucose (77 - 141 mg/dL) 213 H POC Glucose (70 - 110 MG/DL) 213 H 297 H 265 H 125 H Calcium (8.0 - 10.5 mg/dL) 9.2 Phosphorus (2.5 - 4.9 MG/DL) 4.2 Magnesium (1.6 - 2.6 mg/dL) 1.93 01/04 1120 Chemistry POC Glucose (70 - 110 MG/DL) 183 H Laboratory Tests 01/05 01/04 0505 1503 Coagulation INR (0.8 - 1.2) 1.0 1.0 PTT ([place]) (25.0 - 39.5 Seconds) 87.3 H PT Patient/Control Mix (9.3 - 12.9 SECONDS) 11.6 11.4 Laboratory Tests 01/05 0505 Hematology WBC (4.5 - 11.0 x10 3/uL) 7.9 RBC (4.00 - 5.60 x10 6/uL) 5.50 Hgb (12.5 - 16.9 g/dL) 16.0 Hct (37.5 - 50.7 %) 47.3 MCV (81.0 - 99.0 fL) 86.0 MCH (27.0 - 33.0 pg) 29.1 MCHC (33.0 - 37.0 g/dL) 33.8 RDW (11.5 - 14.5 %) 13.3 Plt Count (150 - 400 x10 3/uL) 197 MPV (7.0 - 9.0 fL) 10.1 H Neut % (Auto) (56.0 - 77.0 %) 56.4 Lymph % (Auto) (14.0 - 32.0 %) 25.4 Marion % (Auto) (4.8 - 9.0 %) 8.9 Eos % (Auto) (0.3 - 3.7 %) 6.7 H Baso % (Auto) (0.0 - 2.0 %) 1.3 Neut # (Auto) (2.0 - 7.6 x10 3/uL) 4.46 Lymph # (Auto) (1.0 - 3.8 x10 3/uL) 2.01 Marion # (Auto) (0.1 - 0.8 x10 3/uL) 0.70 Eos # (Auto) (0.0 - 0.2 x10 3/uL) 0.53 H Baso # (Auto) (0.0 - 0.2 x10 3/uL) 0.10 Abs Immat Gran (auto) (0.00 - 0.03 x10 3/uL) 0.10 H Immature Gran % (0.0 - 2.0 %) 1.3 Nucleated RBC % (0 - 0 %) 0.0 Nucleated RBCs # (Man) (0.0 - 0.1 x10 3/uL) 0.00 Laboratory Tests 01/05 0505 Chemistry Magnesium (1.6 - 2.6 mg/dL) 1.93 Diagnosis, Assessment Plan Free Text DxA P NotesFree Text DxA P Notes:1. Coronary artery disease* Repeat CTA heart showed persistent LV thrombus 4.1 x 2.0 cm . * Continue heparin, aspirin, statin and beta-luís.* CABG timing per CTS 2. Ventricular tachycardia* no further Vtach* Continue p.o. amiodarone. * EP on board. * Patient has a LifeVest on. 3. Severe cardiomyopathy - Likely ischemic* CABG evaluation ongoing * Continue GDMT: metoprolol succinate, valsartan, Farxiga, and Aldactone 25 mg daily 4. Diabete mellitus* per Primary team* Started on Farxiga for heart failure. 5. Hyperlipidemia* continue statin 6. LV thrombus* continue Heparin gtt will do nitroglycerin-enhanced viability study on Sunday.continue above plan stable plan a s above at 1037 RPT #:[id number] OF REPORTPRProgress [id number]:37:00G.[id number] able for patient ajapICQWKZHREMJWDA9834-06-24R46:38:18 [facility] 2024-01-05 15:41:00 [id number] JvmlgFnUnHb1EYW1FP7Eni5tFcdAf Tmg+GEF2dhpX5vaURj18rqq79lF3066-04-46S04:41:00 [facility])Pharmacy Prog.Note-AnticoagREPORT#:[id number] REPORT STATUS: SignedREPORT INITIALIZATION DATE:01/05/24 TIME: 154 PATIENT: CHARAN RESTREPO UNIT #: [id number]#: [id number] [address] [birth year] AGE: 53 SEX: M ATTEND: Marycruz Villalba MDA AUTHOR: Kimberly Leach RPhREPT SERVICE DT/TIME: 01/05/24 1541* ALL edits or amendments must be made on the electronic/computer document * Anticoagulation AnticoagulationMedication therapy: warfarinGoal INR: 2 - 3INR/med table: INR Date/Time INR Warfarin Dose Interactions/Notes 01/04 1 5 mg heparin drip bridge Indication for treatment: LV thrombusLabs:Laboratory Tests: 01/04 01/03 01/02 0320 0358 0504 Chemistry Total Bilirubin (0.0 - 1.0 mg/dL) 0.50 AST (8 - 34 IUnit/L) 21 ALT (10 - 49 IUnit/L) 32 Albumin (3.4 - 5.0 g/dL) 4.00 Hematology Hgb (12.5 - 16.9 g/dL) 16.0 15.2 15.4 Hct (37.5 - 50.7 %) 47.1 45.6 45.7 Plt Count (150 - 400 x10 3/uL) 200 179 208 PT/INR 72 Hr Trend: 01/04 1503 Coagulation INR (0.8 - 1.2) 1.0 Treatment plan: initiation of therapyRationale:53-year-old gentleman with past medical history of coronary artery disease status post previous PCI in the past, hypertension, diabetes, hyperlipidemia, smoker 1 ppd/40 years, and chronic pain who presented to [facility] with complaints of life vest alarming and V-tach. CTA showed LV thrombus - currently on heparin drip. Starting on warfarin today. Consulting provider: Dia Baird PAIndication: LV thrombusGoal INR: 2-3Diet: cardiac dietInteracting meds: amiodarone 01/04 A/P* H/H/plt: .1/200* PT/INR: 11.4/1 (subtherapeutic)* Patient currently on heparin drip bridging to warfarin* Start with 5 mg daily for now* Continue heparin drip for 5 days and 2 consecutive INR readings.* INR ordered until 01/13 at 1549 RPT #:[id number] OF REPORTPRProgress [id number]:41:00G.[id number] able for patient lsegHXJBQPERIBRDBF4364-23-63M29:50:08 [facility] 2024-01-05 13:54:00 [id number] GBlVhLuhBBtCdJnC/UUvTYk2oSd0261-78-67G47:54:00 [facility] Hospitalist Progress NoteREPORT#:[id number] REPORT STATUS: SignedREPORT INITIALIZATION DATE:01/05/24 TIME: 135 PATIENT: CHARAN RESTREPO UNIT #: [id number]#: [id number] ROOM[facility]BED: [facility]5-1DOB: [birth year] AGE: 53 SEX: M ATTEND: Marycruz Villalba AUTHOR: Jane Barrios DOREPT SERVICE DT/TIME: 01/05/24 1354* ALL edits or amendments must be made on the electronic/computer document * SubjectiveChief complaint:Pt upset he has to stay here for more testing Objective GeneralVS/I O:Vital Signs: Date Time Temp Pulse Resp B/P B/P Pulse O2 O2 Flow FiO2 Mean Ox Delivery Rate 01/04 1121 97.7 56 14 120/69 0.0 96 Room air 01/04 0725 97.9 58 15 137/73 0.0 97 Room air 01/04 0430 58 13 96 01/04 0258 63 21 126/69 90 96 01/03 2345 55 18 96 01/03 2327 98.4 57 17 124/74 90.6 96 Room air 01/03 2158 61 19 115/59 83 97 01/03 1915 55 12 96 01/03 1906 97.3 57 17 124/70 88.0 98 Room air 01/03 1845 56 01/03 1622 97.7 62 115/74 87.8 96 24 hour I O ending at 0700: 01/04 0700 01/03 1900 Intake Total 1058.00 Output Total Balance 1058.00 Intake, IV 218.00 Intake, Oral 840 Number Voids 3 Patient 82 kg Weight Weight Standing scale Measurement Method PATIENT WEIGHT: Weight (lb): 180Weight (oz): 12.46Weight (kg): 82.000 Medications:Active Meds + DC'd Last 24 HrsInsulin Glargine (Semglee) 10 UNIT BEDTIME SUBQ Miscellaneous Information (WARFARIN PHARMACY TO DOSE) 1 EACH ASDIR PO (PEND) Insulin Glargine (Semglee) 20 UNIT DAILY SUBQ Morphine Sulfate (morphine SULFATE) 4 MG Q4H PRN PRN IV Hydrocodone Bitart/Acetaminophen (NORCO 10/325) 1 TAB Q4H PRN PRN PO Spironolactone (ALDACTONE) 25 MG DAILY PO Clonazepam (KlonoPIN) 0.5 MG BID PO Heparin Sodium (HEPARIN 5000 UNITS/ML) 5,000 UNIT ASDIR PRN PRN IV Heparin Sodium (HEPARIN 5000 UNITS/ML) 2,500 UNIT ASDIR PRN PRN IV Heparin Sodium (Porcine) (HEPARIN 25,000 UNITS/ 1/2NS 500ML) 500 ML ASDIR IV (CKD) Polyethylene Glycol (MIRALAX) 17 GM DAILY PO Senna/Docusate Sodium (SENOKOT S) 1 TAB DAILY PO Amiodarone HCl (AMIODARONE HCL) 400 MG BID 9A 5P PO (CKD) Valsartan (DIOVAN) 80 MG DAILY PO Atorvastatin Calcium (LIPITOR) 40 MG BEDTIME PO Insulin Human Lispro (HUMALOG) 0 AC HS SUBQ Glucagon (GLUCAGON) 1 MG DAILY PRN PRN IM Aspirin (ASPIRIN) 81 MG DAILY PO Metoprolol Succinate (TOPROL XL) 25 MG DAILY PO Nitroglycerin (NITROSTAT) 0.4 MG Q5M PRN PRN SL Physical ExamGeneral appearance: alert, awake, oriented, no respiratory distressHead/Eyes: atraumatic, normocephalicENT: moist mucosal membranesNeck: no JVDCardiovascular: normal heart sounds, regular rate rhythmRespiratory: clear to auscultation, no distressAbdomen: normal bowel sounds, softGenitourinary: no bladder distentionExtremities: no edemaMusculoskeletal: normal inspectionNeuro/PLASTICS 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, normal speechSkin: intact, no rashPsychiatry: normal affect, normal mood ResultsFindings/Data:Laboratory Tests 01/04 01/04 01/04 01/03 01/03 1120 0842 0320 2106 1647Chemistry Sodium (134 - 147 mEq/L) 135 Potassium (3.4 - 5.0 mEq/L) 4.1 Chloride (100 - 108 mEq/L) 101 Carbon Dioxide (21 - 33 mEq/l) 28 Anion Gap (0 - 20) 10 BUN (7 - 25 mg/dL) 16 Creatinine (0.6 - 1.3 mg/dL) 1.1 Glomerular Filtr Rate (90 - 95) 79.8 L Glucose (77 - 141 mg/dL) 206 H POC Glucose (70 - 110 MG/DL) 183 H 193 H 213 H 258 H Calcium (8.0 - 10.5 mg/dL) 9.2 Magnesium (1.6 - 2.6 mg/dL) 1.88 Total Bilirubin (0.0 - 1.0 mg/dL) 0.50 AST (8 - 34 IUnit/L) 21 ALT (10 - 49 IUnit/L) 32 Total Alk Phosphatase (20 - 125 78IUnit/L) Total Protein (6.4 - 8.2 g/dL) 6.6 Albumin (3.4 - 5.0 g/dL) 4.00 Laboratory Tests 01/04 0320 Coagulation PTT ([place]) (25.0 - 39.5 Seconds) 74.6 H Laboratory Tests 01/04 0320 Hematology WBC (4.5 - 11.0 x10 3/uL) 7.8 RBC (4.00 - 5.60 x10 6/uL) 5.46 Hgb (12.5 - 16.9 g/dL) 16.0 Hct (37.5 - 50.7 %) 47.1 MCV (81.0 - 99.0 fL) 86.3 MCH (27.0 - 33.0 pg) 29.3 MCHC (33.0 - 37.0 g/dL) 34.0 RDW (11.5 - 14.5 %) 13.3 Plt Count (150 - 400 x10 3/uL) 200 MPV (7.0 - 9.0 fL) 10.2 H Neut % (Auto) (56.0 - 77.0 %) 58.9 Lymph % (Auto) (14.0 - 32.0 %) 25.1 Marion % (Auto) (4.8 - 9.0 %) 7.7 Eos % (Auto) (0.3 - 3.7 %) 5.8 H Baso % (Auto) (0.0 - 2.0 %) 1.3 Neut # (Auto) (2.0 - 7.6 x10 3/uL) 4.58 Lymph # (Auto) (1.0 - 3.8 x10 3/uL) 1.95 Marion # (Auto) (0.1 - 0.8 x10 3/uL) 0.60 Eos # (Auto) (0.0 - 0.2 x10 3/uL) 0.45 H Baso # (Auto) (0.0 - 0.2 x10 3/uL) 0.10 Abs Immat Gran (auto) (0.00 - 0.03 x10 3/uL) 0.09 H Immature Gran % (0.0 - 2.0 %) 1.2 Nucleated RBC % (0 - 0 %) 0.0 Nucleated RBCs # (Man) (0.0 - 0.1 x10 3/uL) 0.00 Diagnosis, Assessment PlanConsultants: cardiology, cardiovascular surgery, critical/residential designer, hospitalist Free Text DxA P NotesFree text DxA P notes:Non-sustained V-tachy, on Amiodarone dripChest pain 2/2 aboveLife vest stopped firingTobacco abuseDiabetic Mellitus II with hyperglycemiaHx Left atrial clot (on Eliquis)Hx Diabetes Mellitus IIHx CAD PlanAdmit to CCProgress [facility] CardiologyConsult Critical careContinous Telemetry monitoring - to assess for any arrythmiasEcho pending : Last Echo 11/29/23-EF 30-34%, grade 1 diastolic dysfunctionVital signs as per unit protocolAmiodarone drip @ 0.5mg/hrNPO for nowOptimize blood glucose, Hold Lantus Insulin while patient NPO/ use Humalog SSI coverage PRNElectrolyte monitoring and replacement as per Critical care followingLife vest off, pending cardiology evaluationBlood pressure acceptableHome meds restartedLeft atrial clot: AC EliquisCAD: Lipitor/Metoprolol/AspirinSmoking cessation counseling- discussed with patient the importants of quiting smoking and he is aware that continued smoking will complicate his current cardiac situation as well as other health problems such as cancer and poor circulation to his lower extremities and chest pain.He verablized undestanding, Offered patient Nicotine patch but he declined.Pain control: [place] PRNDVT ppx: AC [facility] in [facility]-X-Ray:No acute cardiopulmonary process.Plan of care discussed with patient/NurseFurther rec's as per clinical course. 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 detailer furniture patient has been cleared to transfer out of ccu to cv1 while awaiting workup 12/31/23- heparin gtt- cta pending- ssi/fingersticks- smoking cessation- [facility] is [facility] and patient likely for cabg- workup in progress 01/01/24- heparin gtt- CABG evaluation - Continue Eliquis, aspirin, statin and beta-luís.- Continue metoprolol succinate, and valsartan and Farxiga. - consult EP. Patient has a LifeVest on.- cta pending- ssi/fingersticks- smoking cessation 01/02/24Continue Heparin gttPending CT surgery input on CABG evaluationContinue Eliquis, aspirin, statin and beta-luís.Continue metoprolol succinate, and valsartan and Farxiga. Nicotine patch if pt would likeBP and BS at targetDispo: pending CT surgery input 01/03/24Pt states morphine is only thing helping with ongoing chest pain. Would like togo home soon with IV heparn drip and IV morphine.CT surgery plans on presenting tomorrow in difficult case conference due to thrombus in heart complicating plan on having CABG - await planContinue heparin drip for moderate sized thrombus anterior cardiac wall.CAD: continue ASA, statin, BBIschemic CM: continue metoprolol succinate, valsartan, FarxigaBP and BS at target, labs reviewed 01/04/24Cont heparin drip for moderate sized thrombus anterior cardiac wall.CAD: continue ASA, statin, BBIschemic CM: continue metoprolol succinate, valsartan, FarxigaBP and BS at target, labs reviewedPending CV surgery input after case conference today 01/05/24Cont heparin drip for moderate sized thrombus anterior cardiac wall.CV surgery recommending further cardiac work up with cardiac MRI vs viability testing before coming to conclusion about timing of surgeryCAD: continue ASA, statin, BBIschemic CM: continue metoprolol succinate, valsartan, FarxigaBP at targetBS elevated, add Lantus 10 units qhs, continue SSI high scale, Lantus 20 units qamPt irritated at long stay, d/c when cleared by CV surgery at 1357 RPT #:[id number] OF REPORTPRProgress [id number]:54:00G.[id number] able for patient rkoaMVJIAFDJSQPLEW2469-87-94K67:57:35 [facility] 2024-01-05 13:24:00 [id number]+ dVFgnXTKbhoulPZiDvq2tFr/riYV3 7pWaVkIZzsgFp6CAhKxBShlYudx7524-55-96H39:24:00 [facility] ([facility])Cardiothoracic Surgery ProgREPORT#:[id number] REPORT STATUS: SignedREPORT INITIALIZATION DATE:01/05/24 TIME: 1323 PATIENT: CHARAN RESTREPO UNIT #: [id number]#: [id number] [address] [birth year] AGE: 53 SEX: M ATTEND: Marycruz Villalba AUTHOR: Dia Baird PhysicREPT SERVICE DT/TIME: 01/05/24 1324* ALL edits or amendments must be made on the electronic/computer document * SubjectiveChief complaint:chest painV-tachCADPre op CABG Review of SystemsConstitutional:Denies: chills, fatigue, fever. Skin:Denies: abrasion, bruising, diaphoresis. Allergy/Immun:Denies: allergic reaction, anaphylaxis, itching. Musculoskeletal:Denies: arthritis, extremity pain, extremity swelling. Heme:Denies: adenopathy, bleeding, bruising. Neuro:Denies: change in LOC, confusion, dizziness, seizure, syncope. All systems rev neg: except as marked Objective GeneralVS/I OLast Documented: Result Date Time Pulse Ox 96 01/04 1121 B/P 120/69 01/04 1121 B/P Mean 0.0 01/04 1121 O2 Delivery Room air 01/04 1121 Temp 97.7 01/04 1121 Pulse 56 01/04 1121 Resp 14 01/04 1121 FiO2 21 12/30 1051 24 hour I O ending at 0700: 01/04 0700 01/03 1900 Intake Total 1058.00 Output Total Balance 1058.00 Intake, IV 218.00 Intake, Oral 840 Number Voids 3 Patient 82 kg Weight Weight Standing scale Measurement Method PATIENT WEIGHT: Weight (lb): 180Weight (oz): 12.46Weight (kg): 82.000 Physical ExamGeneral appearance: alert, awake, orientedHEENT: anicteric, mucosal membranes moist, pupils reactive to lightNeck: full range of motion, non-tenderCardiovascular: normal heart sounds, regular rate rhythmRespiratory: aerating well, symmetric expansionAbdomen: soft, non-tenderGenitourinary: no bladder distention, no flank pain, no foleyExtremities: dry, moves allMusculoskeletal: full range of motion, painless range of motionNeuro/PLASTICS 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, CNII-XII intactSkin: dry, intactPsychiatry: normal affect, normal mood Diagnosis, Assessment PlanHospital course to date:This is a 53-year-old gentleman with past medical history of coronary artery disease status post previous PCI in the past, hypertension, diabetes, hyperlipidemia, smoker 1 ppd/40 years, and chronic pain who presented to [facility] with complaints of life vest alarming and V-tach. Patient denies any shocks. He was started on an amiodarone drip and transferred to [facility] for further evaluation. 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 He was taken to the operating room where during the intraoperative ANAND there is some suspicion for thrombus, after talking with the patient's wool broker we decided to cancel surgery due to the increase risk of thromboembolic event. Cardiac CT was done, and patient was started on eliquis and discharged home with life vest with a plan for CABG 2-3 months once LV thrombus resolved. CV surgery was consulted for further evaluation. ECHO 1. Left ventricle: The cavity size is mildly dilated. Wall thickness is mildly increased. Systolic function is severely reduced. The estimated ejection fraction is 25-29%. Akinesis of the apical wall. Akinesis of the anterior wall. Hypokinesis of the lateral wall. Grade I diastolic dysfunction.2. Right ventricle: The RV pressure during systole is 31 mm Hg.3. Left atrium: The atrium is moderately dilated.4. Mitral valve: There is mild regurgitation.5. Tricuspid valve: There is mild regurgitation.6. Pericardium, extracardiac: A small pericardial effusion is identified anterior to the heart. Patient in stable conditionEP and cardiology followingWill discuss with team regarding timing of surgeryFurther recommendations to follow. 12/30/23Patient in stable conditionLabs reviewedCTA heart Discontinue eliquisStart heparin dripPlan of care discussed with the patient, all questions were answered. 12/31/23Patient doing well, denies complaintsDenies chest pain, continue heparin dripLabs reviewedPending CTA heart, further recommendations to followPlan of care discussed with the patient, all questions were answered 01/01/24Patient seen and examined, denies complaintsContinue heparin dripCTA heart pendingFurther recommendations to follow 01/02/24Denies complaintsContinue heparin infusionModerate-sized thrombus seen on CTA heartFurther recommendations to follow 01/03/24Patient alert, awake, orientedLabs reviewedDenies complaints, denies chest pain, continue heparin infusion.Will obtain nuc med myocardial perfusion study to evaluate myocardial viabilityCase to be presented at complex cardiology conference and further recommendations to follow. 01/04/24Patient seen and examined, denies complaintsPatient presented at complex cardiology conference and recommendations are for viability study or cardiac MRI.Further recommendations to followDiscussed with patient the plan, all questions were answered 01/05/24Patinet resting comfortable. Patient will need cardiac MRI in outpatent setting. Will need to transistion to coumadin. Starting dose ordered for pharmacyon room air. Sinus rhythm. Patient seen and examined by Dr Mayfield. Plan of care discussed with patient, all questions answered. Consultants: cardiology, cardiovascular surgery, critical/residential designer, hospitalist at 1329 at 0716 RPT #:[id number] OF REPORTPRProgress [id number]:24:00G.[id number] able for patient qislCHHQFSMMPYXGNG8703-66-44F09:30:18 [facility] 2024-01-05 11:06:00 [id number] Cmm8yQAzRifOlhMjjEVGFtqNrlzao Fg8R0KCAv41SSc5eAiFBrGyQcEj5381-68-24P77:06:00 [facility] ([facility])Cardiology Progress NoteREPORT#:[id number] REPORT STATUS: SignedREPORT INITIALIZATION DATE:01/05/24 TIME: 1106 PATIENT: CHARAN RESTREPO UNIT #: [id number]#: [id number] [address]OB: [birth year] AGE: 53 SEX: M ATTEND: Marycruz Villalba MDADM AUTHOR: Manuel Cintron MDREPT SERVICE DT/TIME: 01/05/24 1106* ALL edits or amendments must be made on the electronic/computer document * Objective GeneralVS/I O:24 hour I O ending at 0700: 01/04 0700 01/03 1900 Intake Total 1058.00 Output Total Balance 1058.00 Intake, IV 218.00 Intake, Oral 840 Number Voids 3 Patient 82 kg Weight Weight Standing scale Measurement Method Vital Signs: Date Time Temp Pulse Resp B/P B/P Pulse O2 O2 Flow FiO2 Mean Ox Delivery Rate 01/04 0725 36.6 58 15 137/73 0.0 97 Room air 01/04 0430 58 13 96 01/04 0258 63 21 126/69 90 96 01/03 2345 55 18 96 01/03 2327 36.9 57 17 124/74 90.6 96 Room air 01/03 2158 61 19 115/59 83 97 01/03 1915 55 12 96 01/03 1906 36.3 57 17 124/70 88.0 98 Room air 01/03 1845 56 15 1622 36.5 62 115/74 87.8 96 01/03 1111 36.6 54 18 111/70 83.8 PATIENT WEIGHT: Weight (lb): 180Weight (oz): 12.46Weight (kg): 82.000 Medications:Active Meds + DC'd Last 24 HrsInsulin Glargine (Semglee) 10 UNIT BEDTIME SUBQ Insulin Glargine (Semglee) 20 UNIT DAILY SUBQ Morphine Sulfate (morphine SULFATE) 4 MG Q4H PRN PRN IV Hydrocodone Bitart/Acetaminophen (NORCO 10/325) 1 TAB Q4H PRN PRN PO Spironolactone (ALDACTONE) 25 MG DAILY PO Clonazepam (KlonoPIN) 0.5 MG BID PO Heparin Sodium (HEPARIN 5000 UNITS/ML) 5,000 UNIT ASDIR PRN PRN IV Heparin Sodium (HEPARIN 5000 UNITS/ML) 2,500 UNIT ASDIR PRN PRN IV Heparin Sodium (Porcine) (HEPARIN 25,000 UNITS/ 1/2NS 500ML) 500 ML ASDIR IV (CKD) Polyethylene Glycol (MIRALAX) 17 GM DAILY PO Senna/Docusate Sodium (SENOKOT S) 1 TAB DAILY PO Amiodarone HCl (AMIODARONE HCL) 400 MG BID 9A 5P PO (CKD) Valsartan (DIOVAN) 80 MG DAILY PO Atorvastatin Calcium (LIPITOR) 40 MG BEDTIME PO Insulin Human Lispro (HUMALOG) 0 AC HS SUBQ Glucagon (GLUCAGON) 1 MG DAILY PRN PRN IM Aspirin (ASPIRIN) 81 MG DAILY PO Metoprolol Succinate (TOPROL XL) 25 MG DAILY PO Nitroglycerin (NITROSTAT) 0.4 MG Q5M PRN PRN SL Physical ExamGeneral appearance: alert, awakeNeck: full range of motion, non-tender, normal thyroid, supple/no meningismus, no bruit/NL carotids, no JVD, no lymphadenopathy, no masses or swellingCardiovascular: CV assessment: regular rate and rhythmRespiratory: clear to auscultation, no distressAbdomen: non-tender, normal bowel sounds, no distention, no guarding, no mass/organomegaly, no pulsatile mass, no reboundUpper extremity: UE assessment: normal capillary refill, no edemaLower extremity: LE assessment: normal capillary refill, no edemaMusculoskeletal: normal inspectionNeuro/PLASTICS 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, oriented X 3, normal speechSkin: dry, intact, normal colorPsychiatry: normal affect, normal judgment/insight, normal mood ResultsFindings/Data:Laboratory Tests 01/04 01/04 01/03 01/03 01/03 0842 0320 2106 1647 1142Chemistry Sodium (134 - 147 mEq/L) 135 Potassium (3.4 - 5.0 mEq/L) 4.1 Chloride (100 - 108 mEq/L) 101 Carbon Dioxide (21 - 33 mEq/l) 28 Anion Gap (0 - 20) 10 BUN (7 - 25 mg/dL) 16 Creatinine (0.6 - 1.3 mg/dL) 1.1 Glomerular Filtr Rate (90 - 95) 79.8 L Glucose (77 - 141 mg/dL) 206 H POC Glucose (70 - 110 MG/DL) 193 H 213 H 258 H 159 H Calcium (8.0 - 10.5 mg/dL) 9.2 Magnesium (1.6 - 2.6 mg/dL) 1.88 Total Bilirubin (0.0 - 1.0 mg/dL) 0.50 AST (8 - 34 IUnit/L) 21 ALT (10 - 49 IUnit/L) 32 Total Alk Phosphatase (20 - 125 78IUnit/L) Total Protein (6.4 - 8.2 g/dL) 6.6 Albumin (3.4 - 5.0 g/dL) 4.00 Laboratory Tests 01/04 0320 Coagulation PTT (Ulises) (25.0 - 39.5 Seconds) 74.6 H Laboratory Tests 01/04 0320 Hematology WBC (4.5 - 11.0 x10 3/uL) 7.8 RBC (4.00 - 5.60 x10 6/uL) 5.46 Hgb (12.5 - 16.9 g/dL) 16.0 Hct (37.5 - 50.7 %) 47.1 MCV (81.0 - 99.0 fL) 86.3 MCH (27.0 - 33.0 pg) 29.3 MCHC (33.0 - 37.0 g/dL) 34.0 RDW (11.5 - 14.5 %) 13.3 Plt Count (150 - 400 x10 3/uL) 200 MPV (7.0 - 9.0 fL) 10.2 H Neut % (Auto) (56.0 - 77.0 %) 58.9 Lymph % (Auto) (14.0 - 32.0 %) 25.1 Marion % (Auto) (4.8 - 9.0 %) 7.7 Eos % (Auto) (0.3 - 3.7 %) 5.8 H Baso % (Auto) (0.0 - 2.0 %) 1.3 Neut # (Auto) (2.0 - 7.6 x10 3/uL) 4.58 Lymph # (Auto) (1.0 - 3.8 x10 3/uL) 1.95 Marion # (Auto) (0.1 - 0.8 x10 3/uL) 0.60 Eos # (Auto) (0.0 - 0.2 x10 3/uL) 0.45 H Baso # (Auto) (0.0 - 0.2 x10 3/uL) 0.10 Abs Immat Gran (auto) (0.00 - 0.03 x10 3/uL) 0.09 H Immature Gran % (0.0 - 2.0 %) 1.2 Nucleated RBC % (0 - 0 %) 0.0 Nucleated RBCs # (Man) (0.0 - 0.1 x10 3/uL) 0.00 Laboratory Tests 01/04 0320 Chemistry Magnesium (1.6 - 2.6 mg/dL) 1.88 Diagnosis, Assessment Plan Free Text DxA P NotesFree Text DxA P Notes:1. Coronary artery disease* Repeat CTA heart showed persistent LV thrombus 4.1 x 2.0 cm . * Continue heparin, aspirin, statin and beta-luís.* CABG timing per CTS 2. Ventricular tachycardia* no further Vtach* Continue p.o. amiodarone. * EP on board. * Patient has a LifeVest on. 3. Severe cardiomyopathy - Likely ischemic* CABG evaluation ongoing * Continue GDMT: metoprolol succinate, valsartan, Farxiga, and Aldactone 25 mg daily 4. Diabete mellitus* per Primary team* Started on Farxiga for heart failure. 5. Hyperlipidemia* continue statin 6. LV thrombus* continue Heparin gtt will do nitroglycerin-enhanced viability study on Sunday.continue above plan stable plan a s above at [facility] RPT #:[id number] OF REPORTPRProgress [id number]:06:00G.[id number] able for patient wovaBOMEPHIAWCFKAV5897-67-07M90:37:17 [facility] 2024-01-04 19:25:00 [id number] ELNPj+zwszeHJMX2f+Q62MxckSojv OKKdI07ClUltcrRjevxYt2g8u7P5087-67-55V82:25:00 [facility]Cardi[facility] Surgery ProgREPORT#:[id number] REPORT STATUS: SignedREPORT INITIALIZATION DATE:01/04/24 TIME: 1924 PATIENT: CHARAN RESTREPO UNIT #: [id number]#: [id number] [address] [birth year] AGE: 53 SEX: M ATTEND: DeejayMarycruz MDA AUTHOR: Papo Mayfield MDREPT SERVICE DT/TIME: 01/04/241924* ALL edits or amendments must be made on the electronic/computer document * SubjectiveChief complaint:chest pain V-tach CAD Pre op CABG Review of SystemsConstitutional:Denies: chills, fatigue, fever. Skin:Denies: abrasion, bruising, diaphoresis. Allergy/Immun:Denies: allergic reaction, anaphylaxis, itching. Musculoskeletal:Denies: arthritis, extremity pain, extremity swelling. Heme:Denies: adenopathy, bleeding, bruising. Neuro:Denies: change in LOC, confusion, dizziness, seizure, syncope. All systems rev neg: except as marked Objective GeneralVS/I OLast Documented: Result Date Time Pulse Ox 98 01/03 1906 B/P 124/70 01/03 1906 B/P Mean 88.0 01/03 1906 O2 Delivery Room air 01/03 1906 Temp 36.3 01/03 1906 Pulse 57 01/03 190 Resp 17 01/03 190 FiO2 21 12/30 1051 24 hour I O ending at 0700: 01/03 0700 01/02 1900 Intake Total 500 Output Total 800 Balance -300 Intake, Oral 500 Number 1 Bowel Movements Output, Urine 800 Patient 82.6 kg Weight PATIENT WEIGHT: Weight (lb): 182Weight (oz): 1.63Weight (kg): 82.600 Dietitian Nutrition assessmentThe data set between the solid lines has been imported from the dietitian's assessment. BMI Calculated: 22.8Nutrition related diagnosis: Nutrition diagnosis details: Nutrition problem: Nutrition etiology: Nutrition signs and symptoms: Nutrition prescription: Dietitian name: Assessment completed: Physical ExamGeneral appearance: alert, awake, orientedHEENT: anicteric, mucosal membranes moist, pupils reactive to lightNeck: full range of motion, non-tenderCardiovascular: normal heart sounds, regular rate rhythmRespiratory: aerating well, symmetric expansionAbdomen: soft, non-tenderGenitourinary: no bladder distention, no flank pain, no foleyExtremities: dry, moves allMusculoskeletal: full range of motion, painless range of motionNeuro/PLASTICS 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, CNII-XII intactSkin: dry, intactPsychiatry: normal affect, normal mood Current MedicationsMedications:Active Meds + DC'd Last 24 HrsInsulin Glargine (Semglee) 20 UNIT DAILY SUBQ Morphine Sulfate (morphine SULFATE) 4 MG Q4H PRN PRN IV Hydrocodone Bitart/Acetaminophen (NORCO 10/325) 1 TAB Q4H PRN PRN PO Spironolactone (ALDACTONE) 25 MG DAILY PO Clonazepam (KlonoPIN) 0.5 MG BID PO Heparin Sodium (HEPARIN 5000 UNITS/ML) 5,000 UNIT ASDIR PRN PRN IV Heparin Sodium (HEPARIN 5000 UNITS/ML) 2,500 UNIT ASDIR PRN PRN IV Heparin Sodium (Porcine) (HEPARIN 25,000 UNITS/ 1/2NS 500ML) 500 ML ASDIR IV (CKD) Polyethylene Glycol (MIRALAX) 17 GM DAILY PO Senna/Docusate Sodium (SENOKOT S) 1 TAB DAILY PO Amiodarone HCl (AMIODARONE HCL) 400 MG BID 9A 5P PO (CKD) Valsartan (DIOVAN) 80 MG DAILY PO Atorvastatin Calcium (LIPITOR) 40 MG BEDTIME PO Insulin Human Lispro (HUMALOG) 0 AC HS SUBQ Glucagon (GLUCAGON) 1 MG DAILY PRN PRN IM Aspirin (ASPIRIN) 81 MG DAILY PO Metoprolol Succinate (TOPROL XL) 25 MG DAILY PO Nitroglycerin (NITROSTAT) 0.4 MG Q5M PRN PRN ResultsFindings/Data:Laboratory Tests 01/03 01/03 01/03 01/03 01/02 1647 1142 0820 2648 2005Chemistry Sodium (134 - 147 mEq/L) 134 Potassium (3.4 - 5.0 mEq/L) 4.2 Chloride (100 - 108 mEq/L) 105 Carbon Dioxide (21 - 33 mEq/l) 22 Anion Gap (0 - 20) 11 BUN (7 - 25 mg/dL) 12 Creatinine (0.6 - 1.3 mg/dL) 1.0 Glomerular Filtr Rate (90 - 95) 89.4 L Glucose (77 - 141 mg/dL) 197 H POC Glucose (70 - 110 MG/DL) 258 H 159 H 231 H 221 H Calcium (8.0 - 10.5 mg/dL) 8.8 Ionized Calcium Zina (1.09 - 1.30 1.06 LMMOL/L) Phosphorus (2.5 - 4.9 MG/DL) 3.4 Magnesium (1.6 - 2.6 mg/dL) 1.79 Laboratory Tests 01/03 446 Coagulation PTT ([place]) (25.0 - 39.5 Seconds) 66.1 H Laboratory Tests 01/03 358 Hematology WBC (4.5 - 11.0 x10 3/uL) 8.3 RBC (4.00 - 5.60 x10 6/uL) 5.27 Hgb (12.5 - 16.9 g/dL) 15.2 Hct (37.5 - 50.7 %) 45.6 MCV (81.0 - 99.0 fL) 86.5 MCH (27.0 - 33.0 pg) 28.8 MCHC (33.0 - 37.0 g/dL) 33.3 RDW (11.5 - 14.5 %) 13.2 Plt Count (150 - 400 x10 3/uL) 179 MPV (7.0 - 9.0 fL) 10.2 H Neut % (Auto) (56.0 - 77.0 %) 58.8 Lymph % (Auto) (14.0 - 32.0 %) 25.4 Marion % (Auto) (4.8 - 9.0 %) 8.0 Eos % (Auto) (0.3 - 3.7 %) 5.7 H Baso % (Auto) (0.0 - 2.0 %) 1.1 Neut # (Auto) (2.0 - 7.6 x10 3/uL) 4.86 Lymph # (Auto) (1.0 - 3.8 x10 3/uL) 2.10 Marion # (Auto) (0.1 - 0.8 x10 3/uL) 0.66 Eos # (Auto) (0.0 - 0.2 x10 3/uL) 0.47 H Baso # (Auto) (0.0 - 0.2 x10 3/uL) 0.09 Abs Immat Gran (auto) (0.00 - 0.03 x10 3/uL) 0.08 H Immature Gran % (0.0 - 2.0 %) 1.0 Nucleated RBC % (0 - 0 %) 0.0 Nucleated RBCs # (Man) (0.0 - 0.1 x10 3/uL) 0.00 Results: labs reviewed, vital signs stable, narda personally rev'd, current med profile rev'd Diagnosis, Assessment PlanHospital course to date:This is a 53-year-old gentleman with past medical history of coronary artery disease status post previous PCI in the past, hypertension, diabetes, hyperlipidemia, smoker 1 ppd/40 years, and chronic pain who presented to [facility] with complaints of life vest alarming and V-tach. Patient denies any shocks. He was started on an amiodarone drip and transferred to [facility] for further evaluation. 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 He was taken to the operating room where during the intraoperative ANAND there is some suspicion for thrombus, after talking with the patient's wool broker we decided to cancel surgery due to the increase risk of thromboembolic event. Cardiac CT was done, and patient was started on eliquis and discharged home with life vest with a plan for CABG 2-3 months once LV thrombus resolved. CV surgery was consulted for further evaluation. ECHO 1. Left ventricle: The cavity size is mildly dilated. Wall thickness is mildly increased. Systolic function is severely reduced. The estimated ejection fraction is 25-29%. Akinesis of the apical wall. Akinesis of the anterior wall. Hypokinesis of the lateral wall. Grade I diastolic dysfunction.2. Right ventricle: The RV pressure during systole is 31 mm Hg.3. Left atrium: The atrium is moderately dilated.4. Mitral valve: There is mild regurgitation.5. Tricuspid valve: There is mild regurgitation.6. Pericardium, extracardiac: A small pericardial effusion is identified anterior to the heart. Patient in stable conditionEP and cardiology followingWill discuss with team regarding timing of surgeryFurther recommendations to follow. 12/30/23Patient in stable conditionLabs reviewedCTA heart Discontinue eliquisStart heparin dripPlan of care discussed with the patient, all questions were answered. 12/31/23Patient doing well, denies complaintsDenies chest pain, continue heparin dripLabs reviewedPending CTA heart, further recommendations to followPlan of care discussed with the patient, all questions were answered 01/01/24Patient seen and examined, denies complaintsContinue heparin dripCTA heart pendingFurther recommendations to follow 01/02/24Denies complaintsContinue heparin infusionModerate-sized thrombus seen on CTA heartFurther recommendations to follow 01/03/24Patient alert, awake, orientedLabs reviewedDenies complaints, denies chest pain, continue heparin infusion.Will obtain nuc med myocardial perfusion study to evaluate myocardial viabilityCase to be presented at complex cardiology conference and further recommendations to follow. 01/04/24Patient seen and examined, denies complaintsPatient presented at complex cardiology conference and recommendations are for viability study or cardiac MRI.Further recommendations to followDiscussed with patient the plan, all questions were answered Consultants: cardiology, cardiovascular surgery, critical/residential designer, hospitalist at 0732 RPT #:[id number] OF REPORTPRProgress [id number]:25:00G.[id number] able for patient oydaQPCCPDOUKITQQR3840-60-43P03:33:16 [facility] 2024-01-04 15:25:00 [id number] mpqyJ/Z3xCP5/s9QzTdzVGhmBZ5uE J+IMtAyi3E18BUxCd7He5p7V1Ea8475-12-53S08:25:00 [facility] CentralCard[facility] Progress NoteREPORT#:[id number] REPORT STATUS: SignedREPORT INITIALIZATION DATE:01/04/24 TIME: 1524 PATIENT: CHARAN RESTREPO UNIT #: [id number]#: [id number] [address] [birth year] AGE: 53 SEX: M ATTEND: Marycruz Villalba [facility] AUTHOR: Fiona Foster AGACNPREPT SERVICE DT/TIME: 01/04/241524* ALL edits or amendments must be made on the electronic/computer document * SubjectivePatient reports:No: complaints. Objective GeneralVS/I O:24 hour I O ending at 0700: 01/03 0700 01/02 1900 Intake Total 500 Output Total 800 Balance -300 Intake, Oral 500 Number 1 Bowel Movements Output, Urine 800 Patient 82.6 kg Weight Vital Signs: Date Time Temp Pulse Resp B/P B/P Pulse O2 O2 Flow FiO2 Mean Ox Delivery Rate 01/03 1111 36.6 54 18 111/70 83.8 01/03 0704 36.6 56 122/77 91.9 97 01/03 0554 67 18 95 01/03 0328 36.5 62 14 120/73 0.0 96 Room air 01/03 0326 62 14 120/73 90 98 01/02 2312 36.7 73 14 115/68 0.0 100 Room air 01/02 2045 57 14 95 01/02 1817 36.5 62 14 115/68 0.0 98 Room air PATIENT WEIGHT: Weight (lb): 182Weight (oz): 1.63Weight (kg): 82.600 Medications:Active Meds + DC'd Last 24 HrsInsulin Glargine (Semglee) 20 UNIT DAILY SUBQ Morphine Sulfate (morphine SULFATE) 4 MG Q4H PRN PRN IV Hydrocodone Bitart/Acetaminophen (NORCO 10/325) 1 TAB Q4H PRN PRN PO Spironolactone (ALDACTONE) 25 MG DAILY PO Clonazepam (KlonoPIN) 0.5 MG BID PO Heparin Sodium (HEPARIN 5000 UNITS/ML) 5,000 UNIT ASDIR PRN PRN IV Heparin Sodium (HEPARIN 5000 UNITS/ML) 2,500 UNIT ASDIR PRN PRN IV Heparin Sodium (Porcine) (HEPARIN 25,000 UNITS/ 1/2NS 500ML) 500 ML ASDIR IV (CKD) Polyethylene Glycol (MIRALAX) 17 GM DAILY PO Senna/Docusate Sodium (SENOKOT S) 1 TAB DAILY PO Amiodarone HCl (AMIODARONE HCL) 400 MG BID 9A 5P PO (CKD) Valsartan (DIOVAN) 80 MG DAILY PO Atorvastatin Calcium (LIPITOR) 40 MG BEDTIME PO Insulin Human Lispro (HUMALOG) 0 AC HS SUBQ Glucagon (GLUCAGON) 1 MG DAILY PRN PRN IM Aspirin (ASPIRIN) 81 MG DAILY PO Metoprolol Succinate (TOPROL XL) 25 MG DAILY PO Nitroglycerin (NITROSTAT) 0.4 MG Q5M PRN PRN SL Physical ExamGeneral appearance: alert, awake, orientedNeck: full range of motion, non-tender, normal thyroid, supple/no meningismus, no bruit/NL carotids, no JVD, no lymphadenopathy, no masses or swellingCardiovascular: CV assessment: regular rate and rhythmRespiratory: clear to auscultation, no distressAbdomen: non-tender, normal bowel sounds, no distention, no guarding, no mass/organomegaly, no pulsatile mass, no reboundUpper extremity: UE assessment: normal capillary refill, no edemaLower extremity: LE assessment: normal capillary refill, no edemaMusculoskeletal: normal inspectionNeuro/PLASTICS 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, oriented X 3, normal speechSkin: dry, intact, normal colorPsychiatry: normal affect, normal judgment/insight, normal mood ResultsFindings/Data:Laboratory Tests 01/03 01/03 01/03 01/02 1142 0820 6603 2004 Chemistry Sodium (134 - 147 mEq/L) 134 Potassium (3.4 - 5.0 mEq/L) 4.2 Chloride (100 - 108 mEq/L) 105 Carbon Dioxide (21 - 33 mEq/l) 22 Anion Gap (0 - 20) 11 BUN (7 - 25 mg/dL) 12 Creatinine (0.6 - 1.3 mg/dL) 1.0 Glomerular Filtr Rate (90 - 95) 89.4 L Glucose (77 - 141 mg/dL) 197 H POC Glucose (70 - 110 MG/DL) 159 H 231 H 221 H Calcium (8.0 - 10.5 mg/dL) 8.8 Ionized Calcium Zina (1.09 - 1.30 MMOL/L) 1.06 L Phosphorus (2.5 - 4.9 MG/DL) 3.4 Magnesium (1.6 - 2.6 mg/dL) 1.79 Laboratory Tests 01/03 0446 Coagulation PTT ([place]) (25.0 - 39.5 Seconds) 66.1 H Laboratory Tests 01/03 0358 Hematology WBC (4.5 - 11.0 x10 3/uL) 8.3 RBC (4.00 - 5.60 x10 6/uL) 5.27 Hgb (12.5 - 16.9 g/dL) 15.2 Hct (37.5 - 50.7 %) 45.6 MCV (81.0 - 99.0 fL) 86.5 MCH (27.0 - 33.0 pg) 28.8 MCHC (33.0 - 37.0 g/dL) 33.3 RDW (11.5 - 14.5 %) 13.2 Plt Count (150 - 400 x10 3/uL) 179 MPV (7.0 - 9.0 fL) 10.2 H Neut % (Auto) (56.0 - 77.0 %) 58.8 Lymph % (Auto) (14.0 - 32.0 %) 25.4 Marion % (Auto) (4.8 - 9.0 %) 8.0 Eos % (Auto) (0.3 - 3.7 %) 5.7 H Baso % (Auto) (0.0 - 2.0 %) 1.1 Neut # (Auto) (2.0 - 7.6 x10 3/uL) 4.86 Lymph # (Auto) (1.0 - 3.8 x10 3/uL) 2.10 Marion # (Auto) (0.1 - 0.8 x10 3/uL) 0.66 Eos # (Auto) (0.0 - 0.2 x10 3/uL) 0.47 H Baso # (Auto) (0.0 - 0.2 x10 3/uL) 0.09 Abs Immat Gran (auto) (0.00 - 0.03 x10 3/uL) 0.08 H Immature Gran % (0.0 - 2.0 %) 1.0 Nucleated RBC % (0 - 0 %) 0.0 Nucleated RBCs # (Man) (0.0 - 0.1 x10 3/uL) 0.00 Laboratory Tests 01/03 0358 Chemistry Magnesium (1.6 - 2.6 mg/dL) 1.79 Results: labs reviewed, vital signs reviewed, rhythm personally rev'd Diagnosis, Assessment PlanPlan discussed with: patient Free Text DxA P NotesFree Text DxA P Notes:1. Coronary artery disease* Repeat CTA heart showed persistent LV thrombus 4.1 x 2.0 cm . * Continue heparin, aspirin, statin and beta-luís.* CABG timing per CTS 2. Ventricular tachycardia* no further Vtach* Continue p.o. amiodarone. * EP on board. * Patient has a LifeVest on. 3. Severe cardiomyopathy - Likely ischemic* CABG evaluation ongoing * Continue GDMT: metoprolol succinate, valsartan, Farxiga, and Aldactone 25 mg daily 4. Diabete mellitus* per Primary team* Started on Farxiga for heart failure. 5. Hyperlipidemia* continue statin 6. LV thrombus* continue Heparin gtt will do nitroglycerin-enhanced viability study on Sunday. Medical decision making by [facility]. Iqbal. at [facility] RPT #:[id number] OF REPORTPRProgress [id number]:25:00G.[id number] able for patient yvoaZCOLOXMTARALVY1390-32-30G66:52:32 [facility] 2024-01-04 13:16:00 [id number] 4wFgxXsCkO8656/PYZ4QEKzz4er7300-31-29L20:16:00 [facility] CentralHospitalist Progress NoteREPORT#:[id number] REPORT STATUS: SignedREPORT INITIALIZATION DATE:01/04/24 TIME: 1315 PATIENT: CHARAN RESTREPO UNIT #: [id number]#: [id number] [address] [birth year] AGE: 53 SEX: M ATTEND: Marycruz Villalba AUTHOR: Ray,Jane M DOREPT SERVICE DT/TIME: 01/04/24 0915* ALL edits or amendments must be made on the electronic/computer document * See AddendumSubjectiveChief complaint:Pt trying to be patient while waiting to hear from CV surgery regarding surgery. Objective GeneralVS/I O:Vital Signs: Date Time Temp Pulse Resp B/P B/P Pulse O2 O2 Flow FiO2 Mean Ox Delivery Rate 01/03 1111 97.9 54 18 111/70 83.8 01/03 0704 97.9 56 122/77 91.9 97 01/03 0554 67 18 95 01/03 0328 97.7 62 14 120/73 0.0 96 Room air 01/03 0326 62 14 120/73 90 98 01/02 2312 98.1 73 14 115/68 0.0 100 Room air 01/02 2045 57 14 95 01/02 1817 97.7 62 14 115/68 0.0 98 Room air 01/02 1514 97.9 55 16 107/64 0.0 96 Room air 24 hour I O ending at 0700: 01/03 0700 01/02 1900 Intake Total 500 Output Total 800 Balance -300 Intake, Oral 500 Number 1 Bowel Movements Output, Urine 800 Patient 82.6 kg Weight PATIENT WEIGHT: Weight (lb): 182Weight (oz): 1.63Weight (kg): 82.600 Medications:Active Meds + DC'd Last 24 HrsInsulin Glargine (Semglee) 20 UNIT DAILY SUBQ Morphine Sulfate (morphine SULFATE) 4 MG Q4H PRN PRN IV Hydrocodone Bitart/Acetaminophen (NORCO 10/325) 1 TAB Q4H PRN PRN PO Spironolactone (ALDACTONE) 25 MG DAILY PO Clonazepam (KlonoPIN) 0.5 MG BID PO Heparin Sodium (HEPARIN 5000 UNITS/ML) 5,000 UNIT ASDIR PRN PRN IV Heparin Sodium (HEPARIN 5000 UNITS/ML) 2,500 UNIT ASDIR PRN PRN IV Heparin Sodium (Porcine) (HEPARIN 25,000 UNITS/ 1/2NS 500ML) 500 ML ASDIR IV (CKD) Polyethylene Glycol (MIRALAX) 17 GM DAILY PO Senna/Docusate Sodium (SENOKOT S) 1 TAB DAILY PO Amiodarone HCl (AMIODARONE HCL) 400 MG BID 9A 5P PO (CKD) Valsartan (DIOVAN) 80 MG DAILY PO Atorvastatin Calcium (LIPITOR) 40 MG BEDTIME PO Insulin Human Lispro (HUMALOG) 0 AC HS SUBQ Glucagon (GLUCAGON) 1 MG DAILY PRN PRN IM Aspirin (ASPIRIN) 81 MG DAILY PO Metoprolol Succinate (TOPROL XL) 25 MG DAILY PO Nitroglycerin (NITROSTAT) 0.4 MG Q5M PRN PRN SL Physical ExamGeneral appearance: alert, awake, oriented, no acute distress, pleasant, conversational, mental status normal, no respiratory distressHead/Eyes: atraumatic, normocephalicENT: moist mucosal membranesNeck: no JVDCardiovascular: normal heart sounds, regular rate rhythmRespiratory: clear to auscultation, no distressAbdomen: normal bowel sounds, softGenitourinary: no bladder distentionExtremities: no edemaMusculoskeletal: normal inspectionNeuro/PLASTICS 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, normal speechSkin: intact, no rashPsychiatry: normal affect, normal mood ResultsFindings/Data:Laboratory Tests 01/03 01/03 01/03 01/02 01/02 1142 0820 0358 2004 1522Chemistry Sodium (134 - 147 mEq/L) 134 Potassium (3.4 - 5.0 mEq/L) 4.2 Chloride (100 - 108 mEq/L) 105 Carbon Dioxide (21 - 33 mEq/l) 22 Anion Gap (0 - 20) 11 BUN (7 - 25 mg/dL) 12 Creatinine (0.6 - 1.3 mg/dL) 1.0 Glomerular Filtr Rate (90 - 95) 89.4 L Glucose (77 - 141 mg/dL) 197 H POC Glucose (70 - 110 MG/DL) 159 H 231 H 221 H 206 H Calcium (8.0 - 10.5 mg/dL) 8.8 Ionized Calcium Zina (1.09 - 1.30 MMOL/L) 1.06 L Phosphorus (2.5 - 4.9 MG/DL) 3.4 Magnesium (1.6 - 2.6 mg/dL) 1.79 Laboratory Tests 01/03 4616 Coagulation PTT ([place]) (25.0 - 39.5 Seconds) 66.1 H Laboratory Tests 01/03 9588 Hematology WBC (4.5 - 11.0 x10 3/uL) 8.3 RBC (4.00 - 5.60 x10 6/uL) 5.27 Hgb (12.5 - 16.9 g/dL) 15.2 Hct (37.5 - 50.7 %) 45.6 MCV (81.0 - 99.0 fL) 86.5 MCH (27.0 - 33.0 pg) 28.8 MCHC (33.0 - 37.0 g/dL) 33.3 RDW (11.5 - 14.5 %) 13.2 Plt Count (150 - 400 x10 3/uL) 179 MPV (7.0 - 9.0 fL) 10.2 H Neut % (Auto) (56.0 - 77.0 %) 58.8 Lymph % (Auto) (14.0 - 32.0 %) 25.4 Marion % (Auto) (4.8 - 9.0 %) 8.0 Eos % (Auto) (0.3 - 3.7 %) 5.7 H Baso % (Auto) (0.0 - 2.0 %) 1.1 Neut # (Auto) (2.0 - 7.6 x10 3/uL) 4.86 Lymph # (Auto) (1.0 - 3.8 x10 3/uL) 2.10 Marion # (Auto) (0.1 - 0.8 x10 3/uL) 0.66 Eos # (Auto) (0.0 - 0.2 x10 3/uL) 0.47 H Baso # (Auto) (0.0 - 0.2 x10 3/uL) 0.09 Abs Immat Gran (auto) (0.00 - 0.03 x10 3/uL) 0.08 H Immature Gran % (0.0 - 2.0 %) 1.0 Nucleated RBC % (0 - 0 %) 0.0 Nucleated RBCs # (Man) (0.0 - 0.1 x10 3/uL) 0.00 Diagnosis, Assessment PlanConsultants: cardiology, cardiovascular surgery, critical/residential designer, hospitalist Free Text DxA P NotesFree text DxA P notes:Non-sustained V-tachy, on Amiodarone dripChest pain 2/2 aboveLife vest stopped firingTobacco abuseDiabetic Mellitus II with hyperglycemiaHx Left atrial clot (on Eliquis)Hx Diabetes Mellitus IIHx CAD PlanAdmit to CCProgress [facility] CardiologyConsult Critical careContinous Telemetry monitoring - to assess for any arrythmiasEcho pending : Last Echo 11/29/23-EF 30-34%, grade 1 diastolic dysfunctionVital signs as per unit protocolAmiodarone drip @ 0.5mg/hrNPO for nowOptimize blood glucose, Hold Lantus Insulin while patient NPO/ use Humalog SSI coverage PRNElectrolyte monitoring and replacement as per Critical care followingLife vest off, pending cardiology evaluationBlood pressure acceptableHome meds restartedLeft atrial clot: AC EliquisCAD: Lipitor/Metoprolol/AspirinSmoking cessation counseling- discussed with patient the importants of quiting smoking and he is aware that continued smoking will complicate his current cardiac situation as well as other health problems such as cancer and poor circulation to his lower extremities and chest pain.He verablized undestanding, Offered patient Nicotine patch but he declined.Pain control: [place] PRNDVT ppx: AC Antoni in [facility]-X-Ray:No acute cardiopulmonary process.Plan of care discussed with patient/NurseFurther rec's as per clinical course. 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 detailer furniture patient has been cleared to transfer out of ccu to cv1 while awaiting workup 12/31/23- heparin gtt- cta pending- ssi/fingersticks- smoking cessation- [facility] is on case and patient likely for cabg- workup in progress 01/01/24- heparin gtt- CABG evaluation - Continue Eliquis, aspirin, statin and beta-luís.- Continue metoprolol succinate, and valsartan and Farxiga. - consult EP. Patient has a LifeVest on.- cta pending- ssi/fingersticks- smoking cessation 01/02/24Continue Heparin gttPending CT surgery input on CABG evaluationContinue Eliquis, aspirin, statin and beta-luís.Continue metoprolol succinate, and valsartan and Farxiga. Nicotine patch if pt would likeBP and BS at targetDispo: pending CT surgery input 01/03/24Pt states morphine is only thing helping with ongoing chest pain. Would like togo home soon with IV heparn drip and IV morphine.CT surgery plans on presenting tomorrow in difficult case conference due to thrombus in heart complicating plan on having CABG - await planContinue heparin drip for moderate sized thrombus anterior cardiac wall.CAD: continue ASA, statin, BBIschemic CM: continue metoprolol succinate, valsartan, FarxigaBP and BS at target, labs reviewed 01/04/24Cont heparin drip for moderate sized thrombus anterior cardiac wall.CAD: continue ASA, statin, BBIschemic CM: continue metoprolol succinate, valsartan, FarxigaBP and BS at target, labs reviewedPending CV surgery input after case conference today at 1318 Addendum 1: 01/04/24 1319 by Jane Barrios DO Add Lantus for tighter BS control at 1319 RPT #:[id number] OF REPORTPRProgress bokm2470-10-49B04:16:00G.[id number] able for patient ssqxISTFBUUULODGXE8169-35-15X90:19:09 [facility] 2024-01-03 15:17:00 [id number]/Ct0KEDThIYYMa yty/7vi/zPqkerjx7AHhZdeJrA/7196-72-11Y46:17:00 [facility] ([facility]ITALCard[facility] Progress NoteREPORT#:[id number] REPORT STATUS: SignedREPORT INITIALIZATION DATE:01/03/24 TIME: 1517 PATIENT: KAYECHARAN UNIT #: [id number]#: [id number] ROOM[facility]BED: [facility]-1DOB: [birth year] AGE: 53 SEX: M ATTEND: Marycruz Villalba MDA AUTHOR: Fiona FosterCNPREPT SERVICE DT/TIME: 01/03/24 1517* ALL edits or amendments must be made on the electronic/computer document * SubjectiveComments:wants to go home if he cannot have surgery. Objective GeneralVS/I O:24 hour I O ending at 0700: 01/02 0700 01/01 1900 Intake Total 300 1474.00 Output Total Balance 300 1474.00 Intake, IV 324.00 Intake, Oral 300 1150 Number 1 Bowel Movements Number Voids 3 3 Patient 82.3 kg Weight Vital Signs: Date Time Temp Pulse Resp B/P B/P Pulse O2 O2 Flow FiO2 Mean Ox Delivery Rate 01/02 1514 36.6 55 16 107/64 0.0 96 Room air 01/02 1022 36.6 60 14 138/71 0.0 96 Room air 01/02 0735 36.6 74 14 138/71 0.0 98 Room air 01/02 0249 36.9 68 14 131/69 0.0 97 Room air 01/01 2306 37.8 93 14 118/71 0.0 95 Room air 01/01 1802 37.1 65 14 116/60 0.0 95 Room air 01/01 1543 36.8 61 14 102/61 0.0 96 Room air PATIENT WEIGHT: Weight (lb): 181Weight (oz): 7.05Weight (kg): 82.300 Medications:Active Meds + DC'd Last 24 HrsMorphine Sulfate (morphine SULFATE) 4 MG Q4H PRN PRN IV Hydrocodone Bitart/Acetaminophen (NORCO 10/325) 1 TAB Q4H PRN PRN PO Spironolactone (ALDACTONE) 25 MG DAILY PO Clonazepam (KlonoPIN) 0.5 MG BID PO Heparin Sodium (HEPARIN 5000 UNITS/ML) 5,000 UNIT ASDIR PRN PRN IV Heparin Sodium (HEPARIN 5000 UNITS/ML) 2,500 UNIT ASDIR PRN PRN IV Heparin Sodium (Porcine) (HEPARIN 25,000 UNITS/ 1/2NS 500ML) 500 ML ASDIR IV (CKD) Polyethylene Glycol (MIRALAX) 17 GM DAILY PO Senna/Docusate Sodium (SENOKOT S) 1 TAB DAILY PO Amiodarone HCl (AMIODARONE HCL) 400 MG BID 9A 5P PO (CKD) Valsartan (DIOVAN) 80 MG DAILY PO Morphine Sulfate (morphine SULFATE) 4 MG Q4H PRN PRN IV (DC) Atorvastatin Calcium (LIPITOR) 40 MG BEDTIME PO Insulin Human Lispro (HUMALOG) 0 AC HS SUBQ Glucagon (GLUCAGON) 1 MG DAILY PRN PRN IM Aspirin (ASPIRIN) 81 MG DAILY PO Metoprolol Succinate (TOPROL XL) 25 MG DAILY PO Nitroglycerin (NITROSTAT) 0.4 MG Q5M PRN PRN SL Physical ExamGeneral appearance: alert, awakeNeck: full range of motion, non-tender, normal thyroid, supple/no meningismus, no bruit/NL carotids, no JVD, no lymphadenopathy, no masses or swellingCardiovascular: CV assessment: regular rate and rhythmRespiratory: clear to auscultation, no distressAbdomen: non-tender, normal bowel sounds, no distention, no guarding, no mass/organomegaly, no pulsatile mass, no reboundUpper extremity: UE assessment: normal capillary refill, no edemaLower extremity: LE assessment: normal capillary refill, no edemaMusculoskeletal: normal inspectionNeuro/PLASTICS 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, oriented X 3, normal speechSkin: dry, intact, normal colorPsychiatry: normal affect, normal judgment/insight, normal mood ResultsFindings/Data:Laboratory Tests 01/02 01/02 01/02 01/01 01/01 1020 0732 0504 1949 1540Chemistry Sodium (134 - 147 mEq/L) 134 Potassium (3.4 - 5.0 mEq/L) 4.1 Chloride (100 - 108 mEq/L) 105 Carbon Dioxide (21 - 33 mEq/l) 22 Anion Gap (0 - 20) 11 BUN (7 - 25 mg/dL) 16 Creatinine (0.6 - 1.3 mg/dL) 1.0 Glomerular Filtr Rate (90 - 95) 89.4 L Glucose (77 - 141 mg/dL) 224 H POC Glucose (70 - 110 MG/DL) 182 H 195 H 232 H 186 H Calcium (8.0 - 10.5 mg/dL) 9.0 Ionized Calcium Zina (1.09 - 1.30 MMOL/L) 1.14 Phosphorus (2.5 - 4.9 MG/DL) 3.3 Magnesium (1.6 - 2.6 mg/dL) 1.76 Laboratory Tests 01/02 0504 Coagulation PTT ([place]) (25.0 - 39.5 Seconds) 64.8 H Laboratory Tests 01/02 0504 Hematology WBC (4.5 - 11.0 x10 3/uL) 8.2 RBC (4.00 - 5.60 x10 6/uL) 5.31 Hgb (12.5 - 16.9 g/dL) 15.4 Hct (37.5 - 50.7 %) 45.7 MCV (81.0 - 99.0 fL) 86.1 MCH (27.0 - 33.0 pg) 29.0 MCHC (33.0 - 37.0 g/dL) 33.7 RDW (11.5 - 14.5 %) 13.3 Plt Count (150 - 400 x10 3/uL) 208 MPV (7.0 - 9.0 fL) 10.2 H Neut % (Auto) (56.0 - 77.0 %) 57.6 Lymph % (Auto) (14.0 - 32.0 %) 27.3 Marion % (Auto) (4.8 - 9.0 %) 8.5 Eos % (Auto) (0.3 - 3.7 %) 4.9 H Baso % (Auto) (0.0 - 2.0 %) 1.0 Neut # (Auto) (2.0 - 7.6 x10 3/uL) 4.70 Lymph # (Auto) (1.0 - 3.8 x10 3/uL) 2.23 Marion # (Auto) (0.1 - 0.8 x10 3/uL) 0.69 Eos # (Auto) (0.0 - 0.2 x10 3/uL) 0.40 H Baso # (Auto) (0.0 - 0.2 x10 3/uL) 0.08 Abs Immat Gran (auto) (0.00 - 0.03 x10 3/uL) 0.06 H Immature Gran % (0.0 - 2.0 %) 0.7 Nucleated RBC % (0 - 0 %) 0.0 Nucleated RBCs # (Man) (0.0 - 0.1 x10 3/uL) 0.00 Laboratory Tests 01/02 0504 Chemistry Magnesium (1.6 - 2.6 mg/dL) 1.76 Diagnosis, Assessment Plan Free Text DxA P NotesFree Text DxA P Notes:1. Coronary artery disease* Repeat CTA heart showed persistent LV thrombus 4.1 x 2.0 cm . * Continue heparin, aspirin, statin and beta-luís.* CABG timing per CTS 2. Ventricular tachycardia* no further Vtach* Continue p.o. amiodarone. * EP on board. * Patient has a LifeVest on. 3. Severe cardiomyopathy - Likely ischemic* CABG evaluation ongoing * Continue GDMT: metoprolol succinate, valsartan, Farxiga, and Aldactone 25 mg daily 4. Diabete mellitus* per Primary team* Started on Farxiga for heart failure. 5. Hyperlipidemia* continue statin 6. LV thrombus* continue Heparin gtt Waiting on CABG decision. Medical decision making by Dr. Iqbal. at 2138 RPT #:[id number] OF REPORTPRProgress oubn1471-73-98S88:17:00G.[id number] able for patient stgjFZQFEMKMIMMXFB2486-85-73I40:53:25 [facility] 2024-01-03 15:07:00 [id number] vHCJdgJwAAap74QsuDMZU9o2hG++W iI0uVDEn6IQNfBufuBEpqMrA8yU7391-40-57K78:07:00 [facility] CentralHospital[facility] Progress NoteREPORT#:[id number] REPORT STATUS: SignedREPORT INITIALIZATION DATE:01/03/24 TIME: 1507 PATIENT: CHARAN RESTREPO UNIT #: [id number]#: [id number] [address] [birth year] AGE: 53 SEX: M ATTEND: Marycruz Villalba AUTHOR: Ray,Jane M DOREPT SERVICE DT/TIME: 01/03/24 1507* ALL edits or amendments must be made on the electronic/computer document * SubjectiveChief complaint:Pt wants to go home with his IV, heparin drip and IV morphine. Objective GeneralVS/I O:Vital Signs: Date Time Temp Pulse Resp B/P B/P Pulse O2 O2 Flow FiO2 Mean Ox Delivery Rate 01/02 1022 97.9 60 14 138/71 0.0 96 Room air 01/02 0735 97.9 74 14 138/71 0.0 98 Room air 01/02 0249 98.4 68 14 131/69 0.0 97 Room air 01/01 2306 100.0 93 14 118/71 0.0 95 Room air 01/01 1802 98.8 65 14 116/60 0.0 95 Room air 01/01 1543 98.2 61 14 102/61 0.0 96 Room air 24 hour I O ending at 0700: 01/02 0700 01/01 1900 Intake Total 300 1474.00 Output Total Balance 300 1474.00 Intake, IV 324.00 Intake, Oral 300 1150 Number 1 Bowel Movements Number Voids 3 3 Patient 82.3 kg Weight PATIENT WEIGHT: Weight (lb): 181Weight (oz): 7.05Weight (kg): 82.300 Medications:Active Meds + DC'd Last 24 HrsMorphine Sulfate (morphine SULFATE) 4 MG Q4H PRN PRN IV Hydrocodone Bitart/Acetaminophen (NORCO 10/325) 1 TAB Q4H PRN PRN PO Spironolactone (ALDACTONE) 25 MG DAILY PO Clonazepam (KlonoPIN) 0.5 MG BID PO Heparin Sodium (HEPARIN 5000 UNITS/ML) 5,000 UNIT ASDIR PRN PRN IV Heparin Sodium (HEPARIN 5000 UNITS/ML) 2,500 UNIT ASDIR PRN PRN IV Heparin Sodium (Porcine) (HEPARIN 25,000 UNITS/ 1/2NS 500ML) 500 ML ASDIR IV (CKD) Polyethylene Glycol (MIRALAX) 17 GM DAILY PO Senna/Docusate Sodium (SENOKOT S) 1 TAB DAILY PO Amiodarone HCl (AMIODARONE HCL) 400 MG BID 9A 5P PO (CKD) Valsartan (DIOVAN) 80 MG DAILY PO Morphine Sulfate (morphine SULFATE) 4 MG Q4H PRN PRN IV (DC) Atorvastatin Calcium (LIPITOR) 40 MG BEDTIME PO Insulin Human Lispro (HUMALOG) 0 AC HS SUBQ Glucagon (GLUCAGON) 1 MG DAILY PRN PRN IM Aspirin (ASPIRIN) 81 MG DAILY PO Metoprolol Succinate (TOPROL XL) 25 MG DAILY PO Nitroglycerin (NITROSTAT) 0.4 MG Q5M PRN PRN SL Physical ExamGeneral appearance: alert, awake, oriented, no acute distress, conversational, mental status normal, no respiratory distressHead/Eyes: atraumatic, normocephalicENT: moist mucosal membranesNeck: no JVDCardiovascular: normal heart sounds, regular rate rhythmRespiratory: clear to auscultation, no distressAbdomen: normal bowel sounds, softGenitourinary: no bladder distentionExtremities: no edemaMusculoskeletal: normal inspectionNeuro/PLASTICS 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, normal speechSkin: intact, no rashPsychiatry: normal affect, normal mood ResultsFindings/Data:Laboratory Tests 01/02 01/02 01/02 01/01 01/01 1020 0732 0504 1949 1540Chemistry Sodium (134 - 147 mEq/L) 134 Potassium (3.4 - 5.0 mEq/L) 4.1 Chloride (100 - 108 mEq/L) 105 Carbon Dioxide (21 - 33 mEq/l) 22 Anion Gap (0 - 20) 11 BUN (7 - 25 mg/dL) 16 Creatinine (0.6 - 1.3 mg/dL) 1.0 Glomerular Filtr Rate (90 - 95) 89.4 L Glucose (77 - 141 mg/dL) 224 H POC Glucose (70 - 110 MG/DL) 182 H 195 H 232 H 186 H Calcium (8.0 - 10.5 mg/dL) 9.0 Ionized Calcium Zina (1.09 - 1.30 MMOL/L) 1.14 Phosphorus (2.5 - 4.9 MG/DL) 3.3 Magnesium (1.6 - 2.6 mg/dL) 1.76 Laboratory Tests 01/02 0504 Coagulation PTT ([place]) (25.0 - 39.5 Seconds) 64.8 H Laboratory Tests 01/02 0504 Hematology WBC (4.5 - 11.0 x10 3/uL) 8.2 RBC (4.00 - 5.60 x10 6/uL) 5.31 Hgb (12.5 - 16.9 g/dL) 15.4 Hct (37.5 - 50.7 %) 45.7 MCV (81.0 - 99.0 fL) 86.1 MCH (27.0 - 33.0 pg) 29.0 MCHC (33.0 - 37.0 g/dL) 33.7 RDW (11.5 - 14.5 %) 13.3 Plt Count (150 - 400 x10 3/uL) 208 MPV (7.0 - 9.0 fL) 10.2 H Neut % (Auto) (56.0 - 77.0 %) 57.6 Lymph % (Auto) (14.0 - 32.0 %) 27.3 Marion % (Auto) (4.8 - 9.0 %) 8.5 Eos % (Auto) (0.3 - 3.7 %) 4.9 H Baso % (Auto) (0.0 - 2.0 %) 1.0 Neut # (Auto) (2.0 - 7.6 x10 3/uL) 4.70 Lymph # (Auto) (1.0 - 3.8 x10 3/uL) 2.23 Marion # (Auto) (0.1 - 0.8 x10 3/uL) 0.69 Eos # (Auto) (0.0 - 0.2 x10 3/uL) 0.40 H Baso # (Auto) (0.0 - 0.2 x10 3/uL) 0.08 Abs Immat Gran (auto) (0.00 - 0.03 x10 3/uL) 0.06 H Immature Gran % (0.0 - 2.0 %) 0.7 Nucleated RBC % (0 - 0 %) 0.0 Nucleated RBCs # (Man) (0.0 - 0.1 x10 3/uL) 0.00 Diagnosis, Assessment PlanConsultants: cardiology, cardiovascular surgery, critical/residential designer, hospitalist Free Text DxA P NotesFree text DxA P notes:Non-sustained V-tachy, on Amiodarone dripChest pain 2/2 aboveLife vest stopped firingTobacco abuseDiabetic Mellitus II with hyperglycemiaHx Left atrial clot (on Eliquis)Hx Diabetes Mellitus IIHx CAD PlanAdmit to CCUConsult CardiologyConsult Critical careContinous Telemetry monitoring - to assess for any arrythmiasEcho pending : Last Echo 11/29/23-EF 30-34%, grade 1 diastolic dysfunctionVital signs as per unit protocolAmiodarone drip @ 0.5mg/hrNPO for nowOptimize blood glucose, Hold Lantus Insulin while patient NPO/ use Humalog SSI coverage PRNElectrolyte monitoring and replacement as per Critical care followingLife vest off, pending cardiology evaluationBlood pressure acceptableHome meds restartedLeft atrial clot: AC EliquisCAD: Lipitor/Metoprolol/AspirinSmoking cessation counseling- discussed with patient the importants of quiting smoking and he is aware that continued smoking will complicate his current cardiac situation as well as other health problems such as cancer and poor circulation to his lower extremities and chest pain.He verablized undestanding, Offered patient Nicotine patch but he declined.Pain control: [place] PRNDVT ppx: JAYLEN Corrales in [facility] [place]-X-Ray:No acute cardiopulmonary process.Plan of care discussed with patient/NurseFurther rec's as per clinical course. 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 detailer furniture patient has been cleared to transfer out of ccu to cv1 while awaiting workup 12/31/23- heparin gtt- cta pending- ssi/fingersticks- smoking cessation- [facility] case and patient likely for cabg- workup in progress 01/01/24- heparin gtt- CABG evaluation - Continue Eliquis, aspirin, statin and beta-luís.- Continue metoprolol succinate, and valsartan and Farxiga. - consult EP. Patient has a LifeVest on.- cta pending- ssi/fingersticks- smoking cessation 01/02/24Continue Heparin gttPending CT surgery input on CABG evaluationContinue Eliquis, aspirin, statin and beta-luís.Continue metoprolol succinate, and valsartan and Farxiga. Nicotine patch if pt would likeBP and BS at targetDispo: pending CT surgery input 01/03/24Pt states morphine is only thing helping with ongoing chest pain. Would like togo home soon with IV heparn drip and IV morphine.CT surgery plans on presenting tomorrow in difficult case conference due to thrombus in heart complicating plan on having CABG - await planContinue heparin drip for moderate sized thrombus anterior cardiac wall.CAD: continue ASA, statin, BBIschemic CM: continue metoprolol succinate, valsartan, FarxigaBP and BS at target, labs reviewed at 1512 RPT #:[id number] OF REPORTPRProgress [id number]:07:00G.[id number] able for patient mtffLGYFIOAQYHYNKL8909-26-29E16:21:52 [facility] 2024-01-03 10:12:00 [id number] ZnbsmcOgn7NpBALkzXGtLblpZp/7r RGRKmDw5xv0rwsOMvlDOPCRmbBe5177-32-77V23:12:00 [facility])Cardiothoracic Surgery ProgREPORT#:[id number] REPORT STATUS: SignedREPORT INITIALIZATION DATE:01/03/24 TIME: 1012 PATIENT: CHARAN RESTREPO UNIT #: [id number]#: [id number] [address] [birth year] AGE: 53 SEX: M ATTEND: Marycruz Villalba AUTHOR: Papo Mayfield MDREPT SERVICE DT/TIME: 01/03/24 1012* ALL edits or amendments must be made on the electronic/computer document * SubjectiveChief complaint:chest pain V-tach CAD Pre op CABG Review of SystemsConstitutional:Denies: chills, fatigue, fever. Skin:Denies: abrasion, bruising, diaphoresis. Allergy/Immun:Denies: allergic reaction, anaphylaxis, itching. Musculoskeletal:Denies: arthritis, extremity pain, extremity swelling. Heme:Denies: adenopathy, bleeding, bruising. Neuro:Denies: change in LOC, confusion, dizziness, seizure, syncope. All systems rev neg: except as marked Objective GeneralVS/I OLast Documented: Result Date Time Pulse Ox 96 01/02 1022 B/P 138/71 01/02 1022 B/P Mean 0.0 01/02 1022 O2 Delivery Room air 01/02 1022 Temp 36.6 01/02 1022 Pulse 60 01/02 1022 Resp 14 01/02 1022 FiO2 21 12/30 1051 24 hour I O ending at 0700: 01/02 0700 01/01 1900 Intake Total 300 1474.00 Output Total Balance 300 1474.00 Intake, IV 324.00 Intake, Oral 300 1150 Number 1 Bowel Movements Number Voids 3 3 Patient 82.3 kg Weight PATIENT WEIGHT: Weight (lb): 181Weight (oz): 7.05Weight (kg): 82.300 Dietitian Nutrition assessmentThe data set between the solid lines has been imported from the dietitian's assessment. BMI Calculated: 22.8Nutrition related diagnosis: Nutrition diagnosis details: Nutrition problem: Nutrition etiology: Nutrition signs and symptoms: Nutrition prescription: Dietitian name: Assessment completed: Physical ExamGeneral appearance: alert, awake, orientedHEENT: anicteric, mucosal membranes moist, pupils reactive to lightNeck: full range of motion, non-tenderCardiovascular: normal heart sounds, regular rate rhythmRespiratory: aerating well, symmetric expansionAbdomen: soft, non-tenderGenitourinary: no bladder distention, no flank pain, no foleyExtremities: dry, moves allMusculoskeletal: full range of motion, painless range of motionNeuro/PLASTICS 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, CNII-XII intactSkin: dry, intactPsychiatry: normal affect, normal mood Current MedicationsMedications:Active Meds + DC'd Last 24 HrsMorphine Sulfate (morphine SULFATE) 4 MG Q4H PRN PRN IV Hydrocodone Bitart/Acetaminophen (NORCO 10/325) 1 TAB Q4H PRN PRN PO Spironolactone (ALDACTONE) 25 MG DAILY PO Clonazepam (KlonoPIN) 0.5 MG BID PO Heparin Sodium (HEPARIN 5000 UNITS/ML) 5,000 UNIT ASDIR PRN PRN IV Heparin Sodium (HEPARIN 5000 UNITS/ML) 2,500 UNIT ASDIR PRN PRN IV Heparin Sodium (Porcine) (HEPARIN 25,000 UNITS/ 1/2NS 500ML) 500 ML ASDIR IV (CKD) Polyethylene Glycol (MIRALAX) 17 GM DAILY PO Senna/Docusate Sodium (SENOKOT S) 1 TAB DAILY PO Amiodarone HCl (AMIODARONE HCL) 400 MG BID 9A 5P PO (CKD) Valsartan (DIOVAN) 80 MG DAILY PO Morphine Sulfate (morphine SULFATE) 4 MG Q4H PRN PRN IV (DC) Atorvastatin Calcium (LIPITOR) 40 MG BEDTIME PO Insulin Human Lispro (HUMALOG) 0 AC HS SUBQ Glucagon (GLUCAGON) 1 MG DAILY PRN PRN IM Aspirin (ASPIRIN) 81 MG DAILY PO Metoprolol Succinate (TOPROL XL) 25 MG DAILY PO Nitroglycerin (NITROSTAT) 0.4 MG Q5M PRN PRN ResultsFindings/Data:Laboratory Tests 01/02 01/02 01/01 01/01 0732 0504 1949 1540 Chemistry Sodium (134 - 147 mEq/L) 134 Potassium (3.4 - 5.0 mEq/L) 4.1 Chloride (100 - 108 mEq/L) 105 Carbon Dioxide (21 - 33 mEq/l) 22 Anion Gap (0 - 20) 11 BUN (7 - 25 mg/dL) 16 Creatinine (0.6 - 1.3 mg/dL) 1.0 Glomerular Filtr Rate (90 - 95) 89.4 L Glucose (77 - 141 mg/dL) 224 H POC Glucose (70 - 110 MG/DL) 195 H 232 H 186 H Calcium (8.0 - 10.5 mg/dL) 9.0 Ionized Calcium Zina (1.09 - 1.30 MMOL/L) 1.14 Phosphorus (2.5 - 4.9 MG/DL) 3.3 Magnesium (1.6 - 2.6 mg/dL) 1.76 Laboratory Tests 01/02 0504 Coagulation PTT ([place]) (25.0 - 39.5 Seconds) 64.8 H Laboratory Tests 01/02 0504 Hematology WBC (4.5 - 11.0 x10 3/uL) 8.2 RBC (4.00 - 5.60 x10 6/uL) 5.31 Hgb (12.5 - 16.9 g/dL) 15.4 Hct (37.5 - 50.7 %) 45.7 MCV (81.0 - 99.0 fL) 86.1 MCH (27.0 - 33.0 pg) 29.0 MCHC (33.0 - 37.0 g/dL) 33.7 RDW (11.5 - 14.5 %) 13.3 Plt Count (150 - 400 x10 3/uL) 208 MPV (7.0 - 9.0 fL) 10.2 H Neut % (Auto) (56.0 - 77.0 %) 57.6 Lymph % (Auto) (14.0 - 32.0 %) 27.3 Marion % (Auto) (4.8 - 9.0 %) 8.5 Eos % (Auto) (0.3 - 3.7 %) 4.9 H Baso % (Auto) (0.0 - 2.0 %) 1.0 Neut # (Auto) (2.0 - 7.6 x10 3/uL) 4.70 Lymph # (Auto) (1.0 - 3.8 x10 3/uL) 2.23 Marion # (Auto) (0.1 - 0.8 x10 3/uL) 0.69 Eos # (Auto) (0.0 - 0.2 x10 3/uL) 0.40 H Baso # (Auto) (0.0 - 0.2 x10 3/uL) 0.08 Abs Immat Gran (auto) (0.00 - 0.03 x10 3/uL) 0.06 H Immature Gran % (0.0 - 2.0 %) 0.7 Nucleated RBC % (0 - 0 %) 0.0 Nucleated RBCs # (Man) (0.0 - 0.1 x10 3/uL) 0.00 Results: labs reviewed, vital signs stable, delfinom personally rev'd, current med profile rev'd Diagnosis, Assessment PlanHospital course to date:This is a 53-year-old gentleman with past medical history of coronary artery disease status post previous PCI in the past, hypertension, diabetes, hyperlipidemia, smoker 1 ppd/40 years, and chronic pain who presented to [facility] with complaints of life vest alarming and V-tach. Patient denies any shocks. He was started on an amiodarone drip and transferred to [facility] for further evaluation. 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 He was taken to the operating room where during the intraoperative ANAND there is some suspicion for thrombus, after talking with the patient's wool broker we decided to cancel surgery due to the increase risk of thromboembolic event. Cardiac CT was done, and patient was started on eliquis and discharged home with life vest with a plan for CABG 2-3 months once LV thrombus resolved. CV surgery was consulted for further evaluation. ECHO 1. Left ventricle: The cavity size is mildly dilated. Wall thickness is mildly increased. Systolic function is severely reduced. The estimated ejection fraction is 25-29%. Akinesis of the apical wall. Akinesis of the anterior wall. Hypokinesis of the lateral wall. Grade I diastolic dysfunction.2. Right ventricle: The RV pressure during systole is 31 mm Hg.3. Left atrium: The atrium is moderately dilated.4. Mitral valve: There is mild regurgitation.5. Tricuspid valve: There is mild regurgitation.6. Pericardium, extracardiac: A small pericardial effusion is identified anterior to the heart. Patient in stable conditionEP and cardiology followingWill discuss with team regarding timing of surgeryFurther recommendations to follow. 12/30/23Patient in stable conditionLabs reviewedCTA heart Discontinue eliquisStart heparin dripPlan of care discussed with the patient, all questions were answered. 12/31/23Patient doing well, denies complaintsDenies chest pain, continue heparin dripLabs reviewedPending CTA heart, further recommendations to followPlan of care discussed with the patient, all questions were answered 01/01/24Patient seen and examined, denies complaintsContinue heparin dripCTA heart pendingFurther recommendations to follow 01/02/24Denies complaintsContinue heparin infusionModerate-sized thrombus seen on CTA heartFurther recommendations to follow 01/03/24Patient alert, awake, orientedLabs reviewedDenies complaints, denies chest pain, continue heparin infusion.Will obtain nuc med myocardial perfusion study to evaluate myocardial viabilityCase to be presented at complex cardiology conference and further recommendations to follow. Consultants: cardiology, cardiovascular surgery, critical/residential designer, hospitalist at 1026 RPT #:[id number] OF REPORTPRProgress [id number]:12:00G.[id number] able for patient jjskPPWFZSJTKCJUBB5251-47-91V61:27:26 [facility] 2024-01-02 14:25:00 [id number]+[id number] jTAASO+Iv1JD7SjDfMBiFJGPFgf1946-89-49O36:25:00 [facility] CentralHospitalist Progress NoteREPORT#:[id number] REPORT STATUS: SignedREPORT INITIALIZATION DATE:01/02/24 TIME: 1424 PATIENT: CHARAN RESTREPO UNIT #: [id number]#: [id number] [address] [birth year] AGE: 53 SEX: M ATTEND: Marycruz Villalba AUTHOR: Jane Barrios DOREPT SERVICE DT/TIME: 01/02/24 0959* ALL edits or amendments must be made on the electronic/computer document * SubjectiveChief complaint:Per nursing, pt is upset he is not allowed to smoke. Declined nicotine patch. Objective GeneralVS/I O:Vital Signs: Date Time Temp Pulse Resp B/P B/P Pulse O2 O2 Flow FiO2 Mean Ox Delivery Rate 01/01 1056 97.9 62 14 104/56 0.0 9 Room air 01/01 0439 98.1 70 13 121/69 0.0 96 Room air 01/01 0436 70 18 121/69 90 97 12/31 2307 98.2 63 13 130/72 0.0 95 Room air 12/31 2306 63 13 130/72 95 95 12/31 1813 97.9 66 13 145/71 0.0 97 Room air 12/31 1800 63 14 98 12/31 1700 52 10 97 12/31 1627 97.9 57 14 116/56 0.0 97 Room air 12/31 1600 53 12 98 12/31 1500 54 12 96 24 hour I O ending at 0700: 01/01 0700 12/31 1900 Intake Total 220 Output Total Balance 220 Intake, Oral 220 Number Voids 8 Patient 81.5 kg Weight PATIENT WEIGHT: Weight (lb): 179Weight (oz): 10.83Weight (kg): 81.500 Medications:Active Meds + DC'd Last 24 HrsHydrocodone Bitart/Acetaminophen (NORCO 10/325) 1 TAB Q4H PRN PRN PO Spironolactone (ALDACTONE) 25 MG DAILY PO Iopamidol (ISOVUE-370 100ML) 100 ML .STK-MED ONE IV (DC) Clonazepam (KlonoPIN) 0.5 MG BID PO Heparin Sodium (HEPARIN 5000 UNITS/ML) 5,000 UNIT ASDIR PRN PRN IV Heparin Sodium (HEPARIN 5000 UNITS/ML) 2,500 UNIT ASDIR PRN PRN IV Heparin Sodium (Porcine) (HEPARIN 25,000 UNITS/ 1/2NS 500ML) 500 ML ASDIR IV (CKD) Polyethylene Glycol (MIRALAX) 17 GM DAILY PO Senna/Docusate Sodium (SENOKOT S) 1 TAB DAILY PO Amiodarone HCl (AMIODARONE HCL) 400 MG BID 9A 5P PO (CKD) Valsartan (DIOVAN) 80 MG DAILY PO Morphine Sulfate (morphine SULFATE) 4 MG Q4H PRN PRN IV Atorvastatin Calcium (LIPITOR) 40 MG BEDTIME PO Insulin Human Lispro (HUMALOG) 0 AC HS SUBQ Glucagon (GLUCAGON) 1 MG DAILY PRN PRN IM Aspirin (ASPIRIN) 81 MG DAILY PO Metoprolol Succinate (TOPROL XL) 25 MG DAILY PO Hydrocodone Bitart/Acetaminophen (NORCO 10/325) 1 TAB Q4H PRN PRN PO (DC) Nitroglycerin (NITROSTAT) 0.4 MG Q5M PRN PRN SL Physical ExamGeneral appearance: alert, awake, no acute distress, no respiratory distressHead/Eyes: normal conjunctiva/scleraENT: moist mucosal membranesNeck: no JVDCardiovascular: normal heart sounds, regular rate rhythmRespiratory: clear to auscultation, no distressAbdomen: normal bowel sounds, softGenitourinary: no flank pain, no urinary catheterExtremities: no edemaMusculoskeletal: normal inspectionNeuro/PLASTICS 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, normal speechSkin: intact, no rashPsychiatry: normal affect, normal mood ResultsFindings/Data:Laboratory Tests 01/01 01/01 01/01 12/31 12/31 1055 0729 0118 1952 1607Chemistry Sodium (134 - 147 mEq/L) 138 Potassium (3.4 - 5.0 mEq/L) 4.4 Chloride (100 - 108 mEq/L) 106 Carbon Dioxide (21 - 33 mEq/l) 26 Anion Gap (0 - 20) 10 BUN (7 - 25 mg/dL) 15 Creatinine (0.6 - 1.3 mg/dL) 1.0 Glomerular Filtr Rate (90 - 95) 89.4 L Glucose (77 - 141 mg/dL) 180 H POC Glucose (70 - 110 MG/DL) 239 H 197 H 193 H 205 H Calcium (8.0 - 10.5 mg/dL) 9.7 Ionized Calcium Zina (1.09 - 1.30 MMOL/L) 1.17 Phosphorus (2.5 - 4.9 MG/DL) 3.2 Magnesium (1.6 - 2.6 mg/dL) 2.08 Laboratory Tests 01/01 01/01 12/31 0837 8 2055 Coagulation PTT ([place]) (25.0 - 39.5 Seconds) 77.8 H 66.2 H 65.5 H Laboratory Tests 01/01 0118 Hematology WBC (4.5 - 11.0 x10 3/uL) 8.6 RBC (4.00 - 5.60 x10 6/uL) 5.50 Hgb (12.5 - 16.9 g/dL) 15.8 Hct (37.5 - 50.7 %) 47.3 MCV (81.0 - 99.0 fL) 86.0 MCH (27.0 - 33.0 pg) 28.7 MCHC (33.0 - 37.0 g/dL) 33.4 RDW (11.5 - 14.5 %) 13.3 Plt Count (150 - 400 x10 3/uL) 203 MPV (7.0 - 9.0 fL) 10.3 H Neut % (Auto) (56.0 - 77.0 %) 60.9 Lymph % (Auto) (14.0 - 32.0 %) 24.4 Marion % (Auto) (4.8 - 9.0 %) 7.3 Eos % (Auto) (0.3 - 3.7 %) 5.3 H Baso % (Auto) (0.0 - 2.0 %) 1.3 Neut # (Auto) (2.0 - 7.6 x10 3/uL) 5.25 Lymph # (Auto) (1.0 - 3.8 x10 3/uL) 2.11 Marion # (Auto) (0.1 - 0.8 x10 3/uL) 0.63 Eos # (Auto) (0.0 - 0.2 x10 3/uL) 0.46 H Baso # (Auto) (0.0 - 0.2 x10 3/uL) 0.11 Abs Immat Gran (auto) (0.00 - 0.03 x10 3/uL) 0.07 H Immature Gran % (0.0 - 2.0 %) 0.8 Nucleated RBC % (0 - 0 %) 0.0 Nucleated RBCs # (Man) (0.0 - 0.1 x10 3/uL) 0.00 Radiology data:Recent Impressions:CAT SCAN - CTA HEART W CN ART/GRAFTS 12/31 1442 Report Impression - Status: SIGNED Entered: 01/01/20242042 IMPRESSION: 1. Complete occlusion (100% in-stent restenosis) of the mid LAD stent, with no contrast identified within the distal LAD. 2. Evidence of chronic LAD distribution infarct with remodeling of the myocardium. Moderate-sized thrombus is adherent to the anterior wall measuring approximately 4.1 cm in greatest diameter.3. Minimal to mild stenosis of the left circumflex artery and the right coronary artery.4. Moderately dilated left ventricle. Findings were communicated to AYLIN Will at 9:42 pm Eastern by telephone. Impression By: [id number] - Adis Khan M.D. Diagnosis, Assessment PlanConsultants: cardiology, cardiovascular surgery, critical/residential designer, hospitalist Free Text DxA P NotesFree text DxA P notes:Non-sustained V-tachy, on Amiodarone dripChest pain 2/2 aboveLife vest stopped firingTobacco abuseDiabetic Mellitus II with hyperglycemiaHx Left atrial clot (on Eliquis)Hx Diabetes Mellitus IIHx CAD PlanAd[facility] CardiologyConsult Critical careContinous Telemetry monitoring - to assess for any arrythmiasEcho pending : Last Echo 11/29/23-EF 30-34%, grade 1 diastolic dysfunctionVital signs as per unit protocolAmiodarone drip @ 0.5mg/hrNPO for nowOptimize blood glucose, Hold Lantus Insulin while patient NPO/ use Humalog SSI coverage PRNElectrolyte monitoring and replacement as per Critical care followingLife vest off, pending cardiology evaluationBlood pressure acceptableHome meds restartedLeft atrial clot: AC EliquisCAD: Lipitor/Metoprolol/AspirinSmoking cessation counseling- discussed with patient the importants of quiting smoking and he is aware that continued smoking will complicate his current cardiac situation as well as other health problems such as cancer and poor circulation to his lower extremities and chest pain.He verablized undestanding, Offered patient Nicotine patch but he declined.Pain control: [place] PRNDVT ppx: AC [facility]:No acute cardiopulmonary process.Plan of care discussed with patient/NurseFurther rec's as per clinical course. 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 detailer furniture patient has been cleared to transfer out of ccu to cv[facility] while awaiting workup 12/31/23- heparin gtt- cta pending- ssi/fingersticks- smoking cessation- [facility] is [facility] and patient likely for cabg- workup in progress 01/01/24- heparin gtt- CABG evaluation - Continue Eliquis, aspirin, statin and beta-luís.- Continue metoprolol succinate, and valsartan and Farxiga. - consult EP. Patient has a LifeVest on.- cta pending- ssi/fingersticks- smoking cessation 01/02/24Continue Heparin gttPending CT surgery input on CABG evaluationContinue Eliquis, aspirin, statin and beta-luís.Continue metoprolol succinate, and valsartan and Farxiga. Nicotine patch if pt would likeBP and BS at targetDispo: pending CT surgery input at 1427 RPT #:[id number] OF REPORTPRProgress [id number]:25:00G.[id number] able for patient [id number]:28:07 [facility] 2024-01-02 12:44:00 [id number] 2PyOBpYSfsBeWcmvbNYXy3/KGB109 DNAhj3LB9RFrmk2H5qD4pSnzRix7226-41-14Y81:44:00 [facility] CentralCardiothor[facility] Surgery ProgREPORT#:[id number] REPORT STATUS: SignedREPORT INITIALIZATION DATE:01/02/24 TIME: 1244 PATIENT: CHARAN RESTREPO UNIT #: [id number]#: [id number] [address] [birth year] AGE: 53 SEX: M ATTEND: Marycruz Villalba AUTHOR: Papo Mayfield MDREPT SERVICE DT/TIME: 01/02/24 1244* ALL edits or amendments must be made on the electronic/computer document * SubjectiveChief complaint:chest pain V-tach CAD Pre op CABG Review of SystemsConstitutional:Denies: chills, fatigue, fever. Skin:Denies: abrasion, bruising, diaphoresis. Allergy/Immun:Denies: allergic reaction, anaphylaxis, itching. Musculoskeletal:Denies: arthritis, extremity pain, extremity swelling. Heme:Denies: adenopathy, bleeding, bruising. Neuro:Denies: change in LOC, confusion, dizziness, seizure, syncope. All systems rev neg: except as marked Objective GeneralVS/I OLast Documented: Result Date Time Pulse Ox 9 01/01 1056 B/P 104/56 01/01 1056 B/P Mean 0.0 01/01 1056 O2 Delivery Room air 01/01 1056 Temp 36.6 01/01 1056 Pulse 62 01/01 1056 Resp 14 01/01 1056 FiO2 21 12/30 1051 24 hour I O ending at 0700: 01/01 0700 12/31 1900 Intake Total 220 Output Total Balance 220 Intake, Oral 220 Number Voids 8 Patient 81.5 kg Weight PATIENT WEIGHT: Weight (lb): 179Weight (oz): 10.83Weight (kg): 81.500 Dietitian Nutrition assessmentThe data set between the solid lines has been imported from the dietitian's assessment. BMI Calculated: 22.8Nutrition related diagnosis: Nutrition diagnosis details: Nutrition problem: Nutrition etiology: Nutrition signs and symptoms: Nutrition prescription: Dietitian name: Assessment completed: Physical ExamGeneral appearance: alert, awake, orientedHEENT: anicteric, mucosal membranes moist, pupils reactive to lightNeck: full range of motion, non-tenderCardiovascular: normal heart sounds, regular rate rhythmRespiratory: aerating well, symmetric expansionAbdomen: soft, non-tenderGenitourinary: no bladder distention, no flank pain, no foleyExtremities: dry, moves allMusculoskeletal: full range of motion, painless range of motionNeuro/PLASTICS 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, CNII-XII intactSkin: dry, intactPsychiatry: normal affect, normal mood Current MedicationsMedications:Active Meds + DC'd Last 24 HrsHydrocodone Bitart/Acetaminophen (NORCO 10/325) 1 TAB Q4H PRN PRN PO Spironolactone (ALDACTONE) 25 MG DAILY PO Iopamidol (ISOVUE-370 100ML) 100 ML .STK-MED ONE IV (DC) Clonazepam (KlonoPIN) 0.5 MG BID PO Heparin Sodium (HEPARIN 5000 UNITS/ML) 5,000 UNIT ASDIR PRN PRN IV Heparin Sodium (HEPARIN 5000 UNITS/ML) 2,500 UNIT ASDIR PRN PRN IV Heparin Sodium (Porcine) (HEPARIN 25,000 UNITS/ 1/2NS 500ML) 500 ML ASDIR IV (CKD) Polyethylene Glycol (MIRALAX) 17 GM DAILY PO Senna/Docusate Sodium (SENOKOT S) 1 TAB DAILY PO Amiodarone HCl (AMIODARONE HCL) 400 MG BID 9A 5P PO (CKD) Valsartan (DIOVAN) 80 MG DAILY PO Morphine Sulfate (morphine SULFATE) 4 MG Q4H PRN PRN IV Atorvastatin Calcium (LIPITOR) 40 MG BEDTIME PO Insulin Human Lispro (HUMALOG) 0 AC HS SUBQ Glucagon (GLUCAGON) 1 MG DAILY PRN PRN IM Aspirin (ASPIRIN) 81 MG DAILY PO Metoprolol Succinate (TOPROL XL) 25 MG DAILY PO Hydrocodone Bitart/Acetaminophen (NORCO 10/325) 1 TAB Q4H PRN PRN PO (DC) Nitroglycerin (NITROSTAT) 0.4 MG Q5M PRN PRN SL ResultsFindings/Data:Laboratory Tests 01/01 01/01 01/01 12/31 12/31 1055 0729 0118 1953 1607Chemistry Sodium (134 - 147 mEq/L) 138 Potassium (3.4 - 5.0 mEq/L) 4.4 Chloride (100 - 108 mEq/L) 106 Carbon Dioxide (21 - 33 mEq/l) 26 Anion Gap (0 - 20) 10 BUN (7 - 25 mg/dL) 15 Creatinine (0.6 - 1.3 mg/dL) 1.0 Glomerular Filtr Rate (90 - 95) 89.4 L Glucose (77 - 141 mg/dL) 180 H POC Glucose (70 - 110 MG/DL) 239 H 197 H 193 H 205 H Calcium (8.0 - 10.5 mg/dL) 9.7 Ionized Calcium Zina (1.09 - 1.30 1.17MMOL/L) Phosphorus (2.5 - 4.9 MG/DL) 3.2 Magnesium (1.6 - 2.6 mg/dL) 2.08 Laboratory Tests 01/01 01/01 12/31 0837 317 2055 Coagulation PTT ([place]) (25.0 - 39.5 Seconds) 77.8 H 66.2 H 65.5 H Laboratory Tests 01/01 118 Hematology WBC (4.5 - 11.0 x10 3/uL) 8.6 RBC (4.00 - 5.60 x10 6/uL) 5.50 Hgb (12.5 - 16.9 g/dL) 15.8 Hct (37.5 - 50.7 %) 47.3 MCV (81.0 - 99.0 fL) 86.0 MCH (27.0 - 33.0 pg) 28.7 MCHC (33.0 - 37.0 g/dL) 33.4 RDW (11.5 - 14.5 %) 13.3 Plt Count (150 - 400 x10 3/uL) 203 MPV (7.0 - 9.0 fL) 10.3 H Neut % (Auto) (56.0 - 77.0 %) 60.9 Lymph % (Auto) (14.0 - 32.0 %) 24.4 Marion % (Auto) (4.8 - 9.0 %) 7.3 Eos % (Auto) (0.3 - 3.7 %) 5.3 H Baso % (Auto) (0.0 - 2.0 %) 1.3 Neut # (Auto) (2.0 - 7.6 x10 3/uL) 5.25 Lymph # (Auto) (1.0 - 3.8 x10 3/uL) 2.11 Marion # (Auto) (0.1 - 0.8 x10 3/uL) 0.63 Eos # (Auto) (0.0 - 0.2 x10 3/uL) 0.46 H Baso # (Auto) (0.0 - 0.2 x10 3/uL) 0.11 Abs Immat Gran (auto) (0.00 - 0.03 x10 3/uL) 0.07 H Immature Gran % (0.0 - 2.0 %) 0.8 Nucleated RBC % (0 - 0 %) 0.0 Nucleated RBCs # (Man) (0.0 - 0.1 x10 3/uL) 0.00 Radiology data:Recent Impressions:CAT SCAN - CTA HEART W CN ART/GRAFTS 12/31 1443 Report Impression - Status: SIGNED Entered: 01/01/20242042 IMPRESSION: 1. Complete occlusion (100% in-stent restenosis) of the mid LAD stent, with no contrast identified within the distal LAD. 2. Evidence of chronic LAD distribution infarct with remodeling of the myocardium. Moderate-sized thrombus is adherent to the anterior wall measuring approximately 4.1 cm in greatest diameter.3. Minimal to mild stenosis of the left circumflex artery and the right coronary artery.4. Moderately dilated left ventricle. Findings were communicated to AYLIN Will at 9:42 pm Eastern by telephone. Impression By: [id number] - Adis Khan M.D. Results: labs reviewed, vital signs stable, rythm personally rev'd, current med profile rev'd Diagnosis, Assessment PlanHospital course to date:This is a 53-year-old gentleman with past medical history of coronary artery disease status post previous PCI in the past, hypertension, diabetes, hyperlipidemia, smoker 1 ppd/40 years, and chronic pain who presented to [facility] with complaints of life vest alarming and V-tach. Patient denies any shocks. He was started on an amiodarone drip and transferred to [facility] for further evaluation. 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 He was taken to the operating room where during the intraoperative ANAND there is some suspicion for thrombus, after talking with the patient's wool broker we decided to cancel surgery due to the increase risk of thromboembolic event. Cardiac CT was done, and patient was started on eliquis and discharged home with life vest with a plan for CABG 2-3 months once LV thrombus resolved. CV surgery was consulted for further evaluation. ECHO 1. Left ventricle: The cavity size is mildly dilated. Wall thickness is mildly increased. Systolic function is severely reduced. The estimated ejection fraction is 25-29%. Akinesis of the apical wall. Akinesis of the anterior wall. Hypokinesis of the lateral wall. Grade I diastolic dysfunction.2. Right ventricle: The RV pressure during systole is 31 mm Hg.3. Left atrium: The atrium is moderately dilated.4. Mitral valve: There is mild regurgitation.5. Tricuspid valve: There is mild regurgitation.6. Pericardium, extracardiac: A small pericardial effusion is identified anterior to the heart. Patient in stable conditionEP and cardiology followingWill discuss with team regarding timing of surgeryFurther recommendations to follow. 12/30/23Patient in stable conditionLabs reviewedCTA heart Discontinue eliquisStart heparin dripPlan of care discussed with the patient, all questions were answered. 12/31/23Patient doing well, denies complaintsDenies chest pain, continue heparin dripLabs reviewedPending CTA heart, further recommendations to followPlan of care discussed with the patient, all questions were answered 01/01/24Patient seen and examined, denies complaintsContinue heparin dripCTA heart pendingFurther recommendations to follow 01/02/24Denies complaintsContinue heparin infusionModerate-sized thrombus seen on CTA heartFurther recommendations to follow Consultants: cardiology, cardiovascular surgery, critical/residential designer, hospitalist at [address] [facility] #:[id number] OF REPORTPRProgress [id number]:44:00G.[id number] able for patient [id number]:12:21 [facility] 2024-01-02 05:44:00 [id number] FmCENOQZYGmV24xyLecQcbst0PX5901-59-65G74:44:00 [facility])Cardiology Progress NoteREPORT#:[id number] REPORT STATUS: SignedREPORT INITIALIZATION DATE:01/02/24 TIME: 543 PATIENT: CHARAN RESTREPO UNIT #: [id number]#: [id number] [address] [birth year] AGE: 53 SEX: M ATTEND: Marycruz Villalba MDADM AUTHOR: Fiona Foster AGACNPREPT SERVICE DT/TIME: 01/02/24543* ALL edits or amendments must be made on the electronic/computer document * SubjectivePatient reports:No: complaints. Objective GeneralVS/I O:24 hour I O ending at 0700: 01/01 0700 12/31 1900 Intake Total Output Total Balance Number Voids 6 Patient 81.5 kg Weight Vital Signs: Date Time Temp Pulse Resp B/P B/P Pulse O2 O2 Flow FiO2 Mean Ox Delivery Rate 01/01 0439 36.7 70 13 121/69 0.0 96 Room air 01/01 0436 70 18 121/69 90 97 12/31 2307 36.8 63 13 130/72 0.0 95 Room air 12/31 2306 63 13 130/72 95 95 12/31 1813 36.6 66 13 145/71 0.0 97 Room air / 1800 63 14 98 03/ 1700 52 10 97 03/ 1627 36.6 57 14 116/56 0.0 97 Room air 03/ 1600 53 12 98 03/12 1500 54 12 96 03/12 1400 53 13 113/62 81 94 03/12 1300 53 13 108/59 79 97 03/12 1235 51 15 104/63 77 98 03/ 1235 36.6 48 14 116/57 0.0 98 Room air 03/ 1200 56 10 116/57 80 98 03/12 1100 57 14 116/58 81 96 03/12 1000 65 21 111/66 82 98 03/12 0900 60 19 114/63 83 95 03/12 0800 54 14 118/63 83 98 12/31 0700 56 12 113/62 83 95 PATIENT WEIGHT: Weight (lb): 179Weight (oz): 10.83Weight (kg): 81.500 Medications:Active Meds + DC'd Last 24 HrsSpironolactone (ALDACTONE) 25 MG DAILY PO Iopamidol (ISOVUE-370 100ML) 100 ML .STK-MED ONE IV (DC) Clonazepam (KlonoPIN) 0.5 MG BID PO Heparin Sodium (HEPARIN 5000 UNITS/ML) 5,000 UNIT ASDIR PRN PRN IV Heparin Sodium (HEPARIN 5000 UNITS/ML) 2,500 UNIT ASDIR PRN PRN IV Heparin Sodium (Porcine) (HEPARIN 25,000 UNITS/ 1/2NS 500ML) 500 ML ASDIR IV (CKD) Polyethylene Glycol (MIRALAX) 17 GM DAILY PO Senna/Docusate Sodium (SENOKOT S) 1 TAB DAILY PO Amiodarone HCl (AMIODARONE HCL) 400 MG BID 9A 5P PO (CKD) Valsartan (DIOVAN) 80 MG DAILY PO Morphine Sulfate (morphine SULFATE) 4 MG Q4H PRN PRN IV Atorvastatin Calcium (LIPITOR) 40 MG BEDTIME PO Insulin Human Lispro (HUMALOG) 0 AC HS SUBQ Glucagon (GLUCAGON) 1 MG DAILY PRN PRN IM Aspirin (ASPIRIN) 81 MG DAILY PO Metoprolol Succinate (TOPROL XL) 25 MG DAILY PO Hydrocodone Bitart/Acetaminophen (NORCO 10/325) 1 TAB Q4H PRN PRN PO (DC) Nitroglycerin (NITROSTAT) 0.4 MG Q5M PRN PRN SL Physical ExamGeneral appearance: sleeping comfortablyNeck: full range of motion, non-tender, normal thyroid, supple/no meningismus, no bruit/NL carotids, no JVD, no lymphadenopathy, no masses or swellingCardiovascular: CV assessment: regular rate and rhythmRespiratory: clear to auscultation, no distressAbdomen: non-tender, normal bowel sounds, no distention, no guarding, no mass/organomegaly, no pulsatile mass, no reboundUpper extremity: UE assessment: normal capillary refill, no edemaLower extremity: LE assessment: normal capillary refill, no edemaMusculoskeletal: normal inspectionNeuro/PLASTICS 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, oriented X 3, normal speechSkin: dry, intact, normal colorPsychiatry: normal affect, normal judgment/insight, normal mood ResultsFindings/Data:Laboratory Tests 01/01 1953 1607 1234 1121Chemistry Sodium (134 - 147 mEq/L) 138 Potassium (3.4 - 5.0 mEq/L) 4.4 Chloride (100 - 108 mEq/L) 106 Carbon Dioxide (21 - 33 mEq/l) 26 Anion Gap (0 - 20) 10 BUN (7 - 25 mg/dL) 15 Creatinine (0.6 - 1.3 mg/dL) 1.0 Glomerular Filtr Rate (90 - 95) 89.4 L Glucose (77 - 141 mg/dL) 180 H POC Glucose (70 - 110 MG/DL) 193 H 205 H 119 H 122 H Calcium (8.0 - 10.5 mg/dL) 9.7 Ionized Calcium Zina (1.09 - 1.30 1.17MMOL/L) Phosphorus (2.5 - 4.9 MG/DL) 3.2 Magnesium (1.6 - 2.6 mg/dL) 2.08 12/31 12/31 0853 0737 Chemistry POC Glucose (70 - 110 MG/DL) 260 H 245 H Laboratory Tests 01/018 2056 1118 0603 Coagulation PTT ([place]) (25.0 - 39.5 Seconds) 66.2 H 65.5 H 50.1 H 55.9 H Laboratory Tests 01/01 118 Hematology WBC (4.5 - 11.0 x10 3/uL) 8.6 RBC (4.00 - 5.60 x10 6/uL) 5.50 Hgb (12.5 - 16.9 g/dL) 15.8 Hct (37.5 - 50.7 %) 47.3 MCV (81.0 - 99.0 fL) 86.0 MCH (27.0 - 33.0 pg) 28.7 MCHC (33.0 - 37.0 g/dL) 33.4 RDW (11.5 - 14.5 %) 13.3 Plt Count (150 - 400 x10 3/uL) 203 MPV (7.0 - 9.0 fL) 10.3 H Neut % (Auto) (56.0 - 77.0 %) 60.9 Lymph % (Auto) (14.0 - 32.0 %) 24.4 Marion % (Auto) (4.8 - 9.0 %) 7.3 Eos % (Auto) (0.3 - 3.7 %) 5.3 H Baso % (Auto) (0.0 - 2.0 %) 1.3 Neut # (Auto) (2.0 - 7.6 x10 3/uL) 5.25 Lymph # (Auto) (1.0 - 3.8 x10 3/uL) 2.11 Marion # (Auto) (0.1 - 0.8 x10 3/uL) 0.63 Eos # (Auto) (0.0 - 0.2 x10 3/uL) 0.46 H Baso # (Auto) (0.0 - 0.2 x10 3/uL) 0.11 Abs Immat Gran (auto) (0.00 - 0.03 x10 3/uL) 0.07 H Immature Gran % (0.0 - 2.0 %) 0.8 Nucleated RBC % (0 - 0 %) 0.0 Nucleated RBCs # (Man) (0.0 - 0.1 x10 3/uL) 0.00 Laboratory Tests 01/01 0118 Chemistry Magnesium (1.6 - 2.6 mg/dL) 2.08 Radiology data:Recent Impressions:CAT SCAN - CTA HEART W CN ART/GRAFTS 12/31 1443 Report Impression - Status: SIGNED Entered: 01/01/20242042 IMPRESSION: 1. Complete occlusion (100% in-stent restenosis) of the mid LAD stent, with no contrast identified within the distal LAD. 2. Evidence of chronic LAD distribution infarct with remodeling of the myocardium. Moderate-sized thrombus is adherent to the anterior wall measuring approximately 4.1 cm in greatest diameter.3. Minimal to mild stenosis of the left circumflex artery and the right coronary artery.4. Moderately dilated left ventricle. Findings were communicated to AYLIN Will at 9:42 pm [place] by telephone. Impression By: ArleneCM29 - Adis Khan M.D. Telemetry Interpretation:NSR Diagnosis, Assessment PlanPlan discussed with: patient, collaborating MD, nurse Free Text DxA P NotesFree Text DxA P Notes:1. Coronary artery disease* Repeat CTA heart showed persistent LV thrombus 4.1 x 2.0 cm . * Continue heparin, aspirin, statin and beta-luís.* CABG timing per CTS 2. Ventricular tachycardia* no further Vtach* Continue p.o. amiodarone. * EP on board. * Patient has a LifeVest on. 3. Severe cardiomyopathy - Likely ischemic* CABG evaluation ongoing * Continue GDMT: metoprolol succinate, valsartan, Farxiga, and Aldactone 25 mg daily 4. Diabete mellitus* per Primary team* Started on Farxiga for heart failure. 5. Hyperlipidemia* continue statin 6. LV thrombus* continue Heparin gtt Medical decision making by Dr. Iqbal. at 1242 RPT #:[id number] OF REPORTPRProgress [id number]:44:00G.[id number] able for patient piktSPPMSBGDCDPQIT8713-15-80H62:42:43 [facility] 2024-01-01 16:13:00 [id number] S0HicBG+gLd9s5mz6zGPCxcztbFi7 BMhcfoFwNppNiu+cCQl7gFB/F6j0193-38-75L63:13:56131 2-0147 [place] [address] PATIENT NAME: CHARAN RESTREPO ADMIT DATE: 11/27/23ACCOUNT NO: [id number] ROOM NO: G.[id number] AGE: 53 REPORT TYPE: 360 - QUERY RESPONSE DOCUMENT SEX: M ADMITTING PHYSICIAN:Papo Mayfield MD ATTENDING PHYSICIAN:Papo Mayfield MD Provider Query QUERY TEXT: Condition General 360MD Query related questions should be directed to:[facility] Coding Query Helpline Based on your clinical judgement, can you please clarify if STEMI was confirmed, STEMI not confirmed, or other more appropriate diagnosis? The patient's Clinical Indicators include:STEMI (ST elevation myocardial infarction)-Critical Care Consult Note 11/30/2023 (1)heparin 5,000 units/1 mL Inj-MARchest pain-Cardiothoracic Surgery Prog 12/03/2023 Options provided:-- Respond - Create new note now-- Dismiss - Not applicable / Not valid-- Dismiss - Clinically unable to determine / Unknown-- Assign to another provider QUERY RESPONSE: Provider dismissed this query because it was not applicable to the patient or not a valid query.no STEMI this admission Query created by: Sultana Stevens on 12/12/2023 1:19 AM at 1613 PATIENT NAME: CHARAN RESTREPO noteG.[id number] for patient audwKVDACGXVNDFXWI6438-77-71K06:14:24 [facility] 2024-01-01 15:30:00 [id number] /GmbfjIbKJBmyUfm5kP80nUhQjrFg 8Z4sBc1vqhm1PYSQj9HyE2td9CO9626-76-31D05:30:00 [facility]Cardioth[facility] Surgery ProgREPORT#:[id number] REPORT STATUS: SignedREPORT INITIALIZATION DATE:01/01/24 TIME: 153 PATIENT: CHARAN RESTREPO UNIT #: [id number]#: [id number] [address] [birth year] AGE: 53 SEX: M ATTEND: Marycruz Villalba AUTHOR: Papo Mayfield MDREPT SERVICE DT/TIME: 01/01/24 1530* ALL edits or amendments must be made on the electronic/computer document * SubjectiveChief complaint:chest pain V-tach CAD Pre op CABG Review of SystemsConstitutional:Denies: chills, fatigue, fever. Skin:Denies: abrasion, bruising, diaphoresis. Allergy/Immun:Denies: allergic reaction, anaphylaxis, itching. Musculoskeletal:Denies: arthritis, extremity pain, extremity swelling. Heme:Denies: adenopathy, bleeding, bruising. Neuro:Denies: change in LOC, confusion, dizziness, seizure, syncope. All systems rev neg: except as marked Objective GeneralVS/I OLast Documented: Result Date Time Pulse Ox 98 12/31 1235 B/P 116/57 12/31 1235 B/P Mean 0.0 12/31 1235 O2 Delivery Room air 12/31 1235 Temp 36.6 12/31 1235 Pulse 48 12/31 1235 Resp 14 12/31 1235 FiO2 21 12/30 1051 24 hour I O ending at 0700: 12/31 0700 12/30 1900 Intake Total Output Total Balance Number Voids 10 Patient 82 kg Weight Weight Standing scale Measurement Method PATIENT WEIGHT: Weight (lb): 180Weight (oz): 12.46Weight (kg): 82.000 Dietitian Nutrition assessmentThe data set between the solid lines has been imported from the dietitian's assessment. BMI Calculated: 22.8Nutrition related diagnosis: Nutrition diagnosis details: Nutrition problem: Nutrition etiology: Nutrition signs and symptoms: Nutrition prescription: Dietitian name: Assessment completed: Physical ExamGeneral appearance: alert, awake, orientedHEENT: anicteric, mucosal membranes moist, pupils reactive to lightNeck: full range of motion, non-tenderCardiovascular: normal heart sounds, regular rate rhythmRespiratory: aerating well, symmetric expansionAbdomen: soft, non-tenderGenitourinary: no bladder distention, no flank pain, no foleyExtremities: dry, moves allMusculoskeletal: full range of motion, painless range of motionNeuro/PLASTICS 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, CNII-XII intactSkin: dry, intactPsychiatry: normal affect, normal mood Current MedicationsMedications:Active Meds + DC'd Last 24 HrsSpironolactone (ALDACTONE) 25 MG DAILY PO Iopamidol (ISOVUE-370 100ML) 100 ML .STK-MED ONE IV (DC) Clonazepam (KlonoPIN) 0.5 MG BID PO Heparin Sodium (HEPARIN 5000 UNITS/ML) 5,000 UNIT ASDIR PRN PRN IV Heparin Sodium (HEPARIN 5000 UNITS/ML) 2,500 UNIT ASDIR PRN PRN IV Heparin Sodium (Porcine) (HEPARIN 25,000 UNITS/ 1/2NS 500ML) 500 ML ASDIR IV (CKD) Polyethylene Glycol (MIRALAX) 17 GM DAILY PO Senna/Docusate Sodium (SENOKOT S) 1 TAB DAILY PO Amiodarone HCl (AMIODARONE HCL) 400 MG BID 9A 5P PO (CKD) Valsartan (DIOVAN) 80 MG DAILY PO Morphine Sulfate (morphine SULFATE) 4 MG Q4H PRN PRN IV Atorvastatin Calcium (LIPITOR) 40 MG BEDTIME PO Insulin Human Lispro (HUMALOG) 0 AC HS SUBQ Glucagon (GLUCAGON) 1 MG DAILY PRN PRN IM Aspirin (ASPIRIN) 81 MG DAILY PO Metoprolol Succinate (TOPROL XL) 25 MG DAILY PO Hydrocodone Bitart/Acetaminophen (NORCO 10/325) 1 TAB Q4H PRN PRN PO Nitroglycerin (NITROSTAT) 0.4 MG Q5M PRN PRN SL ResultsFindings/Data:Laboratory Tests 12/31 12/31 12/31 12/31 12/31 1234 1121 0853 0737 0446Chemistry Sodium (134 - 147 mEq/L) 137 Potassium (3.4 - 5.0 mEq/L) 4.2 Chloride (100 - 108 mEq/L) 108 Carbon Dioxide (21 - 33 mEq/l) 25 Anion Gap (0 - 20) 8 BUN (7 - 25 mg/dL) 18 Creatinine (0.6 - 1.3 mg/dL) 1.1 Glomerular Filtr Rate (90 - 95) 79.8 L Glucose (77 - 141 mg/dL) 233 H POC Glucose (70 - 110 MG/DL) 119 H 122 H 260 H 245 H Calcium (8.0 - 10.5 mg/dL) 9.0 Ionized Calcium Zina (1.09 - 1.30 1.21MMOL/L) Phosphorus (2.5 - 4.9 MG/DL) 3.3 Magnesium (1.6 - 2.6 mg/dL) 1.92 12/30 12/30 2344 1706 Chemistry POC Glucose (70 - 110 MG/DL) 195 H 175 H Laboratory Tests 12/31 12/31 12/31 12/30 1118 0603 0039 1825 Coagulation PTT ([place]) (25.0 - 39.5 Seconds) 50.1 H 55.9 H 61.9 H 65.6 H Laboratory Tests 12/31 0446 Hematology WBC (4.5 - 11.0 x10 3/uL) 7.3 RBC (4.00 - 5.60 x10 6/uL) 5.34 Hgb (12.5 - 16.9 g/dL) 15.3 Hct (37.5 - 50.7 %) 45.2 MCV (81.0 - 99.0 fL) 84.6 MCH (27.0 - 33.0 pg) 28.7 MCHC (33.0 - 37.0 g/dL) 33.8 RDW (11.5 - 14.5 %) 13.3 Plt Count (150 - 400 x10 3/uL) 210 MPV (7.0 - 9.0 fL) 10.1 H Neut % (Auto) (56.0 - 77.0 %) 52.1 L Lymph % (Auto) (14.0 - 32.0 %) 30.9 Marion % (Auto) (4.8 - 9.0 %) 8.7 Eos % (Auto) (0.3 - 3.7 %) 6.3 H Baso % (Auto) (0.0 - 2.0 %) 1.2 Neut # (Auto) (2.0 - 7.6 x10 3/uL) 3.78 Lymph # (Auto) (1.0 - 3.8 x10 3/uL) 2.25 Marion # (Auto) (0.1 - 0.8 x10 3/uL) 0.63 Eos # (Auto) (0.0 - 0.2 x10 3/uL) 0.46 H Baso # (Auto) (0.0 - 0.2 x10 3/uL) 0.09 Abs Immat Gran (auto) (0.00 - 0.03 x10 3/uL) 0.06 H Immature Gran % (0.0 - 2.0 %) 0.8 Nucleated RBC % (0 - 0 %) 0.0 Nucleated RBCs # (Man) (0.0 - 0.1 x10 3/uL) 0.00 Results: labs reviewed, vital signs stable, rythm personally rev'd, x-ray personally reviewed, current med profile rev'd Diagnosis, Assessment PlanHospital course to date:This is a 53-year-old gentleman with past medical history of coronary artery disease status post previous PCI in the past, hypertension, diabetes, hyperlipidemia, smoker 1 ppd/40 years, and chronic pain who presented to [facility] with complaints of life vest alarming and V-tach. Patient denies any shocks. He was started on an amiodarone drip and transferred to [facility] for further evaluation. 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 He was taken to the operating room where during the intraoperative ANAND there is some suspicion for thrombus, after talking with the patient's wool broker we decided to cancel surgery due to the increase risk of thromboembolic event. Cardiac CT was done, and patient was started on eliquis and discharged home with life vest with a plan for CABG 2-3 months once LV thrombus resolved. CV surgery was consulted for further evaluation. ECHO 1. Left ventricle: The cavity size is mildly dilated. Wall thickness is mildly increased. Systolic function is severely reduced. The estimated ejection fraction is 25-29%. Akinesis of the apical wall. Akinesis of the anterior wall. Hypokinesis of the lateral wall. Grade I diastolic dysfunction.2. Right ventricle: The RV pressure during systole is 31 mm Hg.3. Left atrium: The atrium is moderately dilated.4. Mitral valve: There is mild regurgitation.5. Tricuspid valve: There is mild regurgitation.6. Pericardium, extracardiac: A small pericardial effusion is identified anterior to the heart. Patient in stable conditionEP and cardiology followingWill discuss with team regarding timing of surgeryFurther recommendations to follow. 12/30/23Patient in stable conditionLabs reviewedCTA heart Discontinue eliquisStart heparin dripPlan of care discussed with the patient, all questions were answered. 3/11/24Patient doing well, denies complaintsDenies chest pain, continue heparin dripLabs reviewedPending CTA heart, further recommendations to followPlan of care discussed with the patient, all questions were answered 01/01/24Patient seen and examined, denies complaintsContinue heparin dripCTA heart pendingFurther recommendations to follow Consultants: cardiology, cardiovascular surgery, critical/residential designer, hospitalist at 0956 RPT #:[id number] OF REPORTPRProgress [id number]:30:00G.[id number] able for patient aqawQPJWJXSHNXTEHG0128-76-18J47:57:46 [facility] 2024-01-01 12:24:00 [id number] VSzFF3cuwfrw5KzSR4YtSGX5xHsLS C6tJYtZntQY826uvZ/3Hl1rp4bn4203-10-52X64:24:00 [facility] ([facility])Hospitalist Progress NoteREPORT#:[id number] REPORT STATUS: SignedREPORT INITIALIZATION DATE:01/01/24 TIME: 1223 PATIENT: CHARAN RESTREPO UNIT #: [id number]#: [id number] [address] [birth year] AGE: 53 SEX: M ATTEND: Marycruz Villalba AUTHOR: Remberto Rowell MDREPT SERVICE DT/TIME: 01/01/24 1224* ALL edits or amendments must be made on the electronic/computer document * SubjectiveChief complaint:no complaints Review of SystemsAll systems rev neg: except as noted Objective GeneralVS/I O:Vital Signs: Date Time Temp Pulse Resp B/P B/P Pulse O2 O2 Flow FiO2 Mean Ox Delivery Rate 12/31 0242 36.5 64 14 108/65 0.0 97 Room air 12/31 0000 67 23 119/75 93 97 12/30 2303 37.0 58 14 118/68 0.0 98 Room air 12/31 1999 61 12 124/67 89 96 12/30 1818 36.5 58 14 124/67 0.0 96 Room air 24 hour I O ending at 0700: 12/31 0700 12/30 1900 Intake Total Output Total Balance Number Voids 10 Patient 82 kg Weight Weight Standing scale Measurement Method PATIENT WEIGHT: Weight (lb): 180Weight (oz): 12.46Weight (kg): 82.000 Medications:Active Meds + DC'd Last 24 HrsClonazepam (KlonoPIN) 0.5 MG BID PO Heparin Sodium (HEPARIN 5000 UNITS/ML) 5,000 UNIT ASDIR PRN PRN IV Heparin Sodium (HEPARIN 5000 UNITS/ML) 2,500 UNIT ASDIR PRN PRN IV Heparin Sodium (Porcine) (HEPARIN 25,000 UNITS/ 1/2NS 500ML) 500 ML ASDIR IV (CKD) Polyethylene Glycol (MIRALAX) 17 GM DAILY PO Senna/Docusate Sodium (SENOKOT S) 1 TAB DAILY PO Amiodarone HCl (AMIODARONE HCL) 400 MG BID 9A 5P PO (CKD) Valsartan (DIOVAN) 80 MG DAILY PO Morphine Sulfate (morphine SULFATE) 4 MG Q4H PRN PRN IV Atorvastatin Calcium (LIPITOR) 40 MG BEDTIME PO Insulin Human Lispro (HUMALOG) 0 AC HS SUBQ Glucagon (GLUCAGON) 1 MG DAILY PRN PRN IM Aspirin (ASPIRIN) 81 MG DAILY PO Metoprolol Succinate (TOPROL XL) 25 MG DAILY PO Hydrocodone Bitart/Acetaminophen (NORCO 10/325) 1 TAB Q4H PRN PRN PO Nitroglycerin (NITROSTAT) 0.4 MG Q5M PRN PRN SL Dietitian nutrition assessmentThe data set between the solid lines has been imported from the dietitian's assessment. BMI Calculated: 22.8Nutrition related diagnosis: Nutrition diagnosis details: Nutrition problem: Nutrition etiology: Nutrition signs and symptoms: Nutrition prescription: Dietitian name: Assessment completed: Physical ExamGeneral appearance: no acute distressHead/Eyes: normal conjunctiva/scleraENT: moist mucosal membranesNeck: full range of motion, non-tender, supple/no meningismus, no JVDCardiovascular: normal heart sounds, regular rate rhythmRespiratory: clear to auscultation, no distressAbdomen: normal bowel sounds, softGenitourinary: no flank pain, no urinary catheterExtremities: no edemaMusculoskeletal: normal inspectionNeuro/PLASTICS 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, normal speechSkin: intact, no rashPsychiatry: normal affect, normal mood Free Text Obj NotesFree Text Obj Notes:General appearance: alert, awakeHead/Eyes: normal conjunctiva/scleraCardiovascular: normal heart sounds, regular rate rhythmRespiratory: clear to auscultation, no distressAbdomen: normal bowel sounds, softExtremities: no edemaNeuro/PLASTICS 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, normal speechSkin: intact, no rashPsychiatry: normal affect, normal mood Diagnosis, Assessment Plan Free Text DxA P NotesFree text DxA P notes:Patient is a 53 yrs old male with Pmhx as mentioned above who presented withAssessment:Non-sustained V-tachy, on Amiodarone dripChest pain 2/2 aboveLife vest stopped firingTobacco abuseDiabetic Mellitus II with hyperglycemiaHx Left atrial clot (on Eliquis)Hx Diabetes Mellitus IIHx CAD [facility]Ad[facility] CardiologyConsult Critical careContinous Telemetry monitoring - to assess for any arrythmiasEcho pending : Last Echo 11/29/23-EF 30-34%, grade 1 diastolic dysfunctionVital signs as per unit protocolAmiodarone drip @ 0.5mg/hrNPO for nowOptimize blood glucose, Hold Lantus Insulin while patient NPO/ use Humalog SSI coverage PRNElectrolyte monitoring and replacement as per Critical care followingLife vest off, pending cardiology evaluationBlood pressure acceptableHome meds restartedLeft atrial clot: AC EliquisCAD: Lipitor/Metoprolol/AspirinSmoking cessation counseling- discussed with patient the importants of quiting smoking and he is aware that continued smoking will complicate his current cardiac situation as well as other health problems such as cancer and poor circulation to his lower extremities and chest pain.He verablized undestanding, Offered patient Nicotine patch but he declined.Pain control: [place] PRNDVT ppx: AC [facility]i in [facility]-X-Ray:No acute cardiopulmonary process.Plan of care discussed with patient/NurseFurther rec's as per clinical course. 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 detailer furniture patient has been cleared to transfer [facility] while awaiting workup 12/31/23- heparin gtt- cta pending- ssi/fingersticks- smoking cessation- [facility] is on [facility] and patient likely for cabg- workup in progress Diagnosis, Assessment PlanConsultants: cardiology, cardiovascular surgery, critical/residential designer, hospitalist Free Text DxA P NotesFree text DxA P notes: Non-sustained V-tachy, on Amiodarone dripChest pain 2/2 aboveLife vest stopped firingTobacco abuseDiabetic Mellitus II with hyperglycemiaHx Left atrial clot (on Eliquis)Hx Diabetes Mellitus IIHx CAD PlanAdmit to [facility] CardiologyConsult Critical careContinous Telemetry monitoring - to assess for any arrythmiasEcho pending : Last Echo 11/29/23-EF 30-34%, grade 1 diastolic dysfunctionVital signs as per unit protocolAmiodarone drip @ 0.5mg/hrNPO for nowOptimize blood glucose, Hold Lantus Insulin while patient NPO/ use Humalog SSI coverage PRNElectrolyte monitoring and replacement as per Critical care followingLife vest off, pending cardiology evaluationBlood pressure acceptableHome meds restartedLeft atrial clot: AC EliquisCAD: Lipitor/Metoprolol/AspirinSmoking cessation counseling- discussed with patient the importants of quiting smoking and he is aware that continued smoking will complicate his current cardiac situation as well as other health problems such as cancer and poor circulation to his lower extremities and chest pain.He verablized undestanding, Offered patient Nicotine patch but he declined.Pain control: [place] PRNDVT ppx: AC RayoLabhallie in [facility]-X-Ray:No acute cardiopulmonary process.Plan of care discussed with patient/NurseFurther rec's as per clinical course. 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 detailer furniture patient has been cleared to transfer out of [facility] to [facility] while awaiting workup 12/31/23- heparin gtt- cta pending- ssi/fingersticks- smoking cessation- [facility] is on [facility] and patient likely for cabg- workup in progress 01/01/24- heparin gtt- CABG evaluation - Continue Eliquis, aspirin, statin and beta-luís.- Continue metoprolol succinate, and valsartan and Farxiga. - consult EP. Patient has a LifeVest on.- cta pending- ssi/fingersticks- smoking cessation at 1228 RPT #:[id number] OF REPORTPRProgress [id number]:24:00G.[id number] able for patient jfzqCOAQPCYYZDQNJP5679-18-89U60:28:37 [facility] 2024-01-01 11:02:00 [id number] 34xUTs8sfBXMSuCpHgKIL3V4PD8Gt 2L1f2xQIc9wkjCQsQysuyv5VXZv7509-05-93S18:02:00 [facility] ([facility])Cardiology Progress NoteREPORT#:[id number] REPORT STATUS: SignedREPORT INITIALIZATION DATE:01/01/24 TIME: 110 PATIENT: CHARAN RESTREPO UNIT #: [id number]#: [id number] [address] [birth year] AGE: 53 SEX: M ATTEND: Marycruz Villalba AUTHOR: Fiona Foster AGACNPREPT SERVICE DT/TIME: 01/01/24 110* ALL edits or amendments must be made on the electronic/computer document * SubjectivePatient reports:No: complaints. Objective GeneralVS/I O:24 hour I O ending at 0700: 12/31 0700 12/30 1900 Intake Total Output Total Balance Number Voids 10 Patient 82 kg Weight Weight Standing scale Measurement Method Vital Signs: Date Time Temp Pulse Resp B/P B/P Pulse O2 O2 Flow FiO2 Mean Ox Delivery Rate 12/31 0242 36.5 64 14 108/65 0.0 97 Room air 12/31 0000 67 23 119/75 93 97 12/30 2303 37.0 58 14 118/68 0.0 98 Room air 12/30 2000 61 12 124/67 89 96 12/30 1818 36.5 58 14 124/67 0.0 96 Room air PATIENT WEIGHT: Weight (lb): 180Weight (oz): 12.46Weight (kg): 82.000 Medications:Active Meds + DC'd Last 24 HrsClonazepam (KlonoPIN) 0.5 MG BID PO Heparin Sodium (HEPARIN 5000 UNITS/ML) 5,000 UNIT ASDIR PRN PRN IV Heparin Sodium (HEPARIN 5000 UNITS/ML) 2,500 UNIT ASDIR PRN PRN IV Heparin Sodium (Porcine) (HEPARIN 25,000 UNITS/ 1/2NS 500ML) 500 ML ASDIR IV (CKD) Polyethylene Glycol (MIRALAX) 17 GM DAILY PO Senna/Docusate Sodium (SENOKOT S) 1 TAB DAILY PO Amiodarone HCl (AMIODARONE HCL) 400 MG BID 9A 5P PO (CKD) Valsartan (DIOVAN) 80 MG DAILY PO Morphine Sulfate (morphine SULFATE) 4 MG Q4H PRN PRN IV Atorvastatin Calcium (LIPITOR) 40 MG BEDTIME PO Insulin Human Lispro (HUMALOG) 0 AC HS SUBQ Glucagon (GLUCAGON) 1 MG DAILY PRN PRN IM Aspirin (ASPIRIN) 81 MG DAILY PO Metoprolol Succinate (TOPROL XL) 25 MG DAILY PO Hydrocodone Bitart/Acetaminophen (NORCO 10/325) 1 TAB Q4H PRN PRN PO Nitroglycerin (NITROSTAT) 0.4 MG Q5M PRN PRN SL Physical ExamGeneral appearance: alert, awake, oriented, no acute distress, pleasantNeck: full range of motion, non-tender, normal thyroid, supple/no meningismus, no bruit/NL carotids, no JVD, no lymphadenopathy, no masses or swellingCardiovascular: CV assessment: regular rate and rhythmRespiratory: clear to auscultation, no distressAbdomen: non-tender, normal bowel sounds, no distention, no guarding, no mass/organomegaly, no pulsatile mass, no reboundUpper extremity: UE assessment: normal capillary refill, no edemaLower extremity: LE assessment: normal capillary refill, no edemaMusculoskeletal: normal inspectionNeuro/PLASTICS 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, oriented X 3, normal speechSkin: dry, intact, normal colorPsychiatry: normal affect, normal judgment/insight, normal mood ResultsFindings/Data:Laboratory Tests 12/31 12/31 12/31 12/30 12/30 0853 0737 0446 2344 1706Chemistry Sodium (134 - 147 mEq/L) 137 Potassium (3.4 - 5.0 mEq/L) 4.2 Chloride (100 - 108 mEq/L) 108 Carbon Dioxide (21 - 33 mEq/l) 25 Anion Gap (0 - 20) 8 BUN (7 - 25 mg/dL) 18 Creatinine (0.6 - 1.3 mg/dL) 1.1 Glomerular Filtr Rate (90 - 95) 79.8 L Glucose (77 - 141 mg/dL) 233 H POC Glucose (70 - 110 MG/DL) 260 H 245 H 195 H 175 H Calcium (8.0 - 10.5 mg/dL) 9.0 Ionized Calcium Zina (1.09 - 1.30 1.21MMOL/L) Phosphorus (2.5 - 4.9 MG/DL) 3.3 Magnesium (1.6 - 2.6 mg/dL) 1.92 12/30 1246 Chemistry POC Glucose (70 - 110 MG/DL) 143 H Laboratory Tests 12/31 12/31 12/30 12/30 0603 0039 1825 1244 Coagulation PTT ([place]) (25.0 - 39.5 Seconds) 55.9 H 61.9 H 65.6 H 52.9 H Laboratory Tests 12/31 0446 Hematology WBC (4.5 - 11.0 x10 3/uL) 7.3 RBC (4.00 - 5.60 x10 6/uL) 5.34 Hgb (12.5 - 16.9 g/dL) 15.3 Hct (37.5 - 50.7 %) 45.2 MCV (81.0 - 99.0 fL) 84.6 MCH (27.0 - 33.0 pg) 28.7 MCHC (33.0 - 37.0 g/dL) 33.8 RDW (11.5 - 14.5 %) 13.3 Plt Count (150 - 400 x10 3/uL) 210 MPV (7.0 - 9.0 fL) 10.1 H Neut % (Auto) (56.0 - 77.0 %) 52.1 L Lymph % (Auto) (14.0 - 32.0 %) 30.9 Marion % (Auto) (4.8 - 9.0 %) 8.7 Eos % (Auto) (0.3 - 3.7 %) 6.3 H Baso % (Auto) (0.0 - 2.0 %) 1.2 Neut # (Auto) (2.0 - 7.6 x10 3/uL) 3.78 Lymph # (Auto) (1.0 - 3.8 x10 3/uL) 2.25 Marion # (Auto) (0.1 - 0.8 x10 3/uL) 0.63 Eos # (Auto) (0.0 - 0.2 x10 3/uL) 0.46 H Baso # (Auto) (0.0 - 0.2 x10 3/uL) 0.09 Abs Immat Gran (auto) (0.00 - 0.03 x10 3/uL) 0.06 H Immature Gran % (0.0 - 2.0 %) 0.8 Nucleated RBC % (0 - 0 %) 0.0 Nucleated RBCs # (Man) (0.0 - 0.1 x10 3/uL) 0.00 Laboratory Tests 12/31 0446 Chemistry Magnesium (1.6 - 2.6 mg/dL) 1.92 Results: labs reviewed, vital signs reviewed, rhythm personally rev'dTelemetry Interpretation:Sinus rhythm Diagnosis, Assessment PlanPlan discussed with: patient, collaborating MD, nurse Free Text DxA P NotesFree Text DxA P Notes:1. Coronary artery disease: Patient has chronic chest pain unclear if it is dueto his underlying coronary artery disease versus atypical chest pain due to the chronicity. 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 Echocardiogram done and showed no LV thrombus. Repeat CTA heart pending. Continue heparin, aspirin, statin and beta-luís. 2. Ventricular tachycardia unclear if it was sustained however patient has started on amio drip at outside facility and transferred to our hospital. Currently the patient is sinus rhythm with no further Vtach. Continue p.o. amiodarone. EP on board. Patient has a LifeVest on. 3. Severe cardiomyopathy: Likely ischemic, CABG evaluation as above. Continue metoprolol succinate, valsartan, and Farxiga. Add Aldactone 25 mg daily 4. Diabetes: per Primary team. Started on Farxiga for heart failure. 5. Hyperlipidemia: continue statin Waiting for CTA heart to re-eval status of LV thrombus. Medical decision making by Dr. Iqbal. at 1502 RPT #:[id number] OF REPORTPRProgress [id number]:02:00G.[id number] able for patient yawpNLIVABICBTUWFR2769-21-37Z01:02:55 [facility] 2023-12-31 18:20:00 [id number] bAVIpt4MDa6fn23YulOnM2T5Vrt/O yEeT0hmPP0tRmiA4VMgMzxRRab07671-03-41L18:20:00 [facility] ([facility])Hospitalist Progress NoteREPORT#:[id number] REPORT STATUS: SignedREPORT INITIALIZATION DATE:12/31/23 TIME: 1819 PATIENT: CHARAN RESTREPO UNIT #: [id number]#: [id number] [address] [birth year] AGE: 53 SEX: M ATTEND: Marycruz Villalba MDADM AUTHOR: Marycruz Villalba MDREPT SERVICE DT/TIME: 12/31/231819* ALL edits or amendments must be made on the electronic/computer document * SubjectiveChief complaint:no complaintstime seen 1145 am Objective GeneralVS/I O:Vital Signs: Date Time Temp Pulse Resp B/P B/P Pulse O2 O2 Flow FiO2 Mean Ox Delivery Rate 12/30 1817 97.7 58 14 124/67 0.0 96 Room air 12/30 1051 98 Room air 21 12/30 0802 97.7 54 14 113/69 0.0 97 Room air 12/30 0316 97.9 60 13 115/63 0.0 98 Room air 12/29 2308 98.1 62 13 125/73 0.0 98 Room air 12/29 2009 97.5 66 13 140/73 0.0 98 Room air 12/30 2003 64 16 140/73 100 95 12/29 1900 63 15 129/69 92 96 24 hour I O ending at 0700: 12/30 0700 12/29 1900 Intake Total 650 Output Total 1200 Balance -550 Intake, Oral 650 Output, Urine 1200 Patient 81.3 kg Weight Weight Standing scale Measurement Method PATIENT WEIGHT: Weight (lb): 179Weight (oz): 3.77Weight (kg): 81.300 Medications:Active Meds + DC'd Last 24 HrsHeparin Sodium (HEPARIN 5000 UNITS/ML) 5,000 UNIT ASDIR PRN PRN IV Heparin Sodium (HEPARIN 5000 UNITS/ML) 2,500 UNIT ASDIR PRN PRN IV Heparin Sodium (Porcine) (HEPARIN 25,000 UNITS/ 1/2NS 500ML) 500 ML ASDIR IV (CKD) Polyethylene Glycol (MIRALAX) 17 GM DAILY PO Senna/Docusate Sodium (SENOKOT S) 1 TAB DAILY PO Amiodarone HCl (AMIODARONE HCL) 400 MG BID 9A 5P PO (CKD) Valsartan (DIOVAN) 80 MG DAILY PO Morphine Sulfate (morphine SULFATE) 4 MG Q4H PRN PRN IV Atorvastatin Calcium (LIPITOR) 40 MG BEDTIME PO Insulin Human Lispro (HUMALOG) 0 AC HS SUBQ Glucagon (GLUCAGON) 1 MG DAILY PRN PRN IM Mupirocin (BACTROBAN 2% 22 GM OINTMENT) 1 APPLIC BID NASAL (DC) Aspirin (ASPIRIN) 81 MG DAILY PO Metoprolol Succinate (TOPROL XL) 25 MG DAILY PO Hydrocodone Bitart/Acetaminophen (NORCO 10/325) 1 TAB Q4H PRN PRN PO Nitroglycerin (NITROSTAT) 0.4 MG Q5M PRN PRN SL Free Text Obj NotesFree Text Obj Notes:General appearance: alert, awakeHead/Eyes: normal conjunctiva/scleraCardiovascular: normal heart sounds, regular rate rhythmRespiratory: clear to auscultation, no distressAbdomen: normal bowel sounds, softExtremities: no edemaNeuro/PLASTICS 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, normal speechSkin: intact, no rashPsychiatry: normal affect, normal mood Diagnosis, Assessment Plan Free Text DxA P NotesFree text DxA P notes:Patient is a 53 yrs old male with Pmhx as mentioned above who presented withAssessment:Non-sustained V-tachy, on Amiodarone dripChest pain 2/2 aboveLife vest stopped firingTobacco abuseDiabetic Mellitus II with hyperglycemiaHx Left atrial clot (on Eliquis)Hx Diabetes Mellitus IIHx CAD PlanAdmit to CConsult CardiologyConsult Critical careContinous Telemetry monitoring - to assess for any arrythmiasEcho pending : Last Echo 11/29/23-EF 30-34%, grade 1 diastolic dysfunctionVital signs as per unit protocolAmiodarone drip @ 0.5mg/hrNPO for nowOptimize blood glucose, Hold Lantus Insulin while patient NPO/ use Humalog SSI coverage PRNElectrolyte monitoring and replacement as per Critical care followingLife vest off, pending cardiology evaluationBlood pressure acceptableHome meds restartedLeft atrial clot: AC EliquisCAD: Lipitor/Metoprolol/AspirinSmoking cessation counseling- discussed with patient the importants of quiting smoking and he is aware that continued smoking will complicate his current cardiac situation as well as other health problems such as cancer and poor circulation to his lower extremities and chest pain.He verablized undestanding, Offered patient Nicotine patch but he declined.Pain control: [place] PRNDVT ppx: AC [facility]quisL[facility] [place]:No acute cardiopulmonary process.Plan of care discussed with patient/NurseFurther rec's as per clinical course. 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 detailer furniture patient has been cleared to transfer out of ccu to cv[facility] while awaiting workup 12/31/23- heparin gtt- cta pending- ssi/fingersticks- smoking cessation- [facility] is on case and patient likely for cabg- workup in progress at 1351 RPT #:[id number] OF REPORTPRProgress ynbe4358-57-15J76:20:00G.[id number] able for patient ftrmMTHNKTDPPBOVRC6901-77-88P56:52:20 [facility] 2023-12-31 12:29:00 [id number] wjJpMi5LTh7DVolUpd8gwfDQEdzCV /iS/CXZfKdRBQrsjdnWOeKJxjT90173-33-58K75:29:00 [facility] ([facility])EP Consultation NoteREPORT#:[id number] REPORT STATUS: SignedREPORT INITIALIZATION DATE:12/31/23 TIME: 1229 PATIENT: CHARAN RESTREPO UNIT #: [id number]#: [id number] [address] [birth year] AGE: 53 SEX: M ATTEND: Jemal Young MDADM AUTHOR: Mani Mendoza NPREPT SERVICE DT/TIME: 12/31/23 1229* ALL edits or amendments must be made on the electronic/computer document * History of Present IllnessRequesting clinician: Dr Baez for consult:Jean Paul complaint:LifeVest alarming History - Adult longitudinalPast medical history:Reports: Congestive heart failure, Coronary artery disease, Diabetes mellitus. Additional medical history:ischemic cardiomyopathyFamily history:Denies: CAD < 40 yrs old. Alcohol use: Alcohol use (social)Drug use: Denies recreational drugsSmoking status for patients 13 years old or older: Current every day smokerDate last smoked: 12/27/23Packs per day: 1Years smoked: 35Pack years: 0Medications:Home Medications:Medication Dose/Rte/Freq Days Qty Entered Last Max Daily Dose Reviewed ATORVASTATIN (LIPITOR) 40 MG PO BEDTIME 30 03/20/23Strength: 40 MG TAB 0828 METOPROLOL SUCC XL 25 MG PO DAILY 30 03/20/23 (TOPROL XL) 0831Strength: 25 MG TAB.SR.24H ASPIRIN 81 MG PO DAILY 30 03/20/23Strength: 81 MG TAB.CHEW 0834 APIXABAN (ELIQUIS) 5 MG PO BID 60 12/03/23Strength: 5 MG TAB 1055 NITROGLYCERIN 0.4 MG SL 30 12/03/23 (NITROSTAT) Q5M PRN PRN CHEST 1055Strength: 0.4 MG TAB.SL PAIN INSULIN GLARGINE 20 UNITS SUBQ 15 12/03/23 (LANTUS SOLOSTAR (15mL)) BEDTIME 1056Strength: 100 UNIT/ML (3 ML)PEN.INJCTR Current Hospital Medications:Blood Formation,Coagulation Sig/Marie Start time Last Medication Dose Route Stop Time Status Admin Heparin Sodium 5,000 UNIT ASDIR PRN PRN 12/29 1215 AC (HEPARIN 5000 UNITS/ IV 03/29 1214 ML) Heparin Sodium 2,500 UNIT ASDIR PRN PRN 12/29 1215 AC 12/30 (HEPARIN 5000 UNITS/ IV 03/29 1214 1335 ML) Heparin Sodium 500 ML ASDIR 12/29 1215 CKD 12/29 (Porcine) IV 03/29 1214 1328 (HEPARIN 25,000 UNITS/ 1/2NS 500ML) Cardiovascular Drugs Sig/Marie Start time Last Medication Dose Route Stop Time Status Admin Amiodarone HCl 400 MG BID 9A 5P 12/28 899 CKD 12/30 (AMIODARONE HCL) PO 03/28 0859 0918 Valsartan 80 MG DAILY 12/28 899 AC 12/30 (DIOVAN) PO 03/28 0859 0910 Atorvastatin Calcium 40 MG BEDTIME 12/27 2099 AC 12/29 (LIPITOR) PO 01/26 2059 211 Metoprolol Succinate 25 MG DAILY 12/27 899 AC 12/30 (TOPROL XL) PO 03/27 0859 0910 Nitroglycerin 0.4 MG Q5M PRN PRN 12/26 2115 AC (NITROSTAT) SL 03/26 211 Central Nervous System Agents Sig/Marie Start time Last Medication Dose Route Stop Time Status Admin Morphine Sulfate 4 MG Q4H PRN PRN 12/27 2200 AC 12/30 (morphine SULFATE) IV 01/01 2159 1343 Aspirin 81 MG DAILY 12/27 899 AC 12/30 (ASPIRIN) PO 03/27 0859 0909 Hydrocodone Bitart/ 1 TAB Q4H PRN PRN 12/26 2200 AC 12/30 Acetaminophen PO 12/31 2159 1223 (NORCO 10/325) Gastrointestinal Drugs Sig/Marie Start time Last Medication Dose Route Stop Time Status Admin Polyethylene Glycol 17 GM DAILY 12/29 899 AC 12/30 (MIRALAX) PO 03/29 0859 0910 Senna/Docusate Sodium 1 TAB DAILY 12/29 899 AC 12/30 (SENOKOT S) PO 03/29 0859 0910 Hormones And Synthetic Substit Sig/Marie Start time Last Medication Dose Route Stop Time Status Admin Insulin Human Lispro 0 AC HS 12/27 1745 AC 12/30 (HUMALOG) SUBQ 03/27 2059 09 Glucagon 1 MG DAILY PRN PRN 12/27 1730 AC (GLUCAGON) IM 03/27 1729 Skin And Mucous Membrane Agent Sig/Marie Start time Last Medication Dose Route Stop Time Status Admin Mupirocin 1 APPLIC BID 12/27 1156 DC 12/29 (BACTROBAN 2% 22 GM NASAL 12/31 2101 0750 OINTMENT) Allergies:Coded Allergies:No Known Allergies (03/18/23) 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 Respiratory:Denies: DWYER (dyspnea on exertion), productive cough (sputum), SOB. Cardiovascular:Reports: chest pain. Denies: edema, palpitations. GI:Denies: nausea, vomiting. Neuro:Denies: dizziness, syncope. Psych:stress. ObjectiveVS/I OLast Documented:Vital Signs Date Time Temp Pulse Resp B/P B/P Pulse O2 O2 Flow FiO2 Mean Ox Delivery Rate 12/30 1051 98 Room air 21 12/30 0802 97.7 54 14 113/69 0.0 97 Room air 12/30 0316 97.9 60 13 115/63 0.0 98 Room air 12/29 2308 98.1 62 13 125/73 0.0 98 Room air 12/29 2009 97.5 66 13 140/73 0.0 98 Room air 12/29 2004 64 16 140/73 100 95 /10 1900 63 15 129/69 92 96 03/10 1600 98.6 /10 1500 61 14 126/69 92 96 03/10 1400 61 17 128/66 90 96 /10 1300 58 18 114/65 84 93 /10 1243 62 9 97 /10 1200 97.8 /10 1200 69 45 154/79 107 99 03/10 1100 65 15 125/73 93 96 03/10 1000 72 20 152/70 101 98 03/10 0900 57 10 107/55 75 95 03/10 0800 98.8 03/10 0800 69 30 150/76 107 96 03/10 0600 60 23 134/65 92 96 03/10 0501 54 15 122/70 90 99 03/10 0400 97.8 Room air /10 0400 53 11 108/57 78 95 03/10 0301 136/78 100 03/10 0101 54 10 95/50 68 94 03/10 0000 98.2 Room air 03/10 0000 56 20 126/69 92 95 12/28 2300 54 11 137/67 95 97 12/28 2200 55 13 122/63 87 96 12/28 2100 54 14 124/66 89 96 12/28 2026 97 Room air 12/29 1999 98.0 Room air 12/29 1999 59 13 130/68 92 97 12/28 1900 63 19 135/77 100 98 12/28 1800 63 13 123/65 88 97 12/28 1700 58 14 117/67 85 95 12/28 1600 97.1 12/28 1600 62 32 133/78 98 99 24 hour I O ending at 0700: 12/30 0700 12/29 1900 Intake Total 650 Output Total 1200 Balance -550 Intake, Oral 650 Output, Urine 1200 Patient 179 lb Weight Weight Standing scale Measurement Method PATIENT WEIGHT: Weight (lb): 179Weight (oz): 3.77Weight (kg): 81.300 General appearance: alert, awake, oriented, no acute distress, pleasant, conversational, no respiratory distressRespiratory: no distressNeuro/PLASTICS 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, oriented X 3, normal gait, normal speechSkin: dry, normal colorPsychiatry: normal affect, normal judgment/insight, normal moodFindings/Data:Laboratory Tests: 12/30 12/30 12/30 12/30 1246 1244 0806 0732 Chemistry Sodium (134 - 147 mEq/L) 136 Potassium (3.4 - 5.0 mEq/L) 4.5 Chloride (100 - 108 mEq/L) 108 Carbon Dioxide (21 - 33 mEq/l) 21 Anion Gap (0 - 20) 12 BUN (7 - 25 mg/dL) 13 Creatinine (0.6 - 1.3 mg/dL) 0.9 Glomerular Filtr Rate (90 - 95) 101.5 H Glucose (77 - 141 mg/dL) 176 H POC Glucose (70 - 110 MG/DL) 143 H 174 H Calcium (8.0 - 10.5 mg/dL) 8.9 Ionized Calcium Zina (1.09 - 1.30 MMOL/L) 1.08 L Phosphorus (2.5 - 4.9 MG/DL) 3.5 Magnesium (1.6 - 2.6 mg/dL) 2.09 Coagulation PTT ([place]) (25.0 - 39.5 Seconds) 52.9 H Hematology WBC (4.5 - 11.0 x10 3/uL) 7.5 RBC (4.00 - 5.60 x10 6/uL) 5.48 Hgb (12.5 - 16.9 g/dL) 15.8 Hct (37.5 - 50.7 %) 48.0 MCV (81.0 - 99.0 fL) 87.6 MCH (27.0 - 33.0 pg) 28.8 MCHC (33.0 - 37.0 g/dL) 32.9 L RDW (11.5 - 14.5 %) 13.2 Plt Count (150 - 400 x10 3/uL) 180 MPV (7.0 - 9.0 fL) 10.2 H Neut % (Auto) (56.0 - 77.0 %) 54.0 L Lymph % (Auto) (14.0 - 32.0 %) 30.1 Marion % (Auto) (4.8 - 9.0 %) 7.6 Eos % (Auto) (0.3 - 3.7 %) 6.6 H Baso % (Auto) (0.0 - 2.0 %) 1.3 Neut # (Auto) (2.0 - 7.6 x10 3/uL) 4.07 Lymph # (Auto) (1.0 - 3.8 x10 3/uL) 2.27 Marion # (Auto) (0.1 - 0.8 x10 3/uL) 0.57 Eos # (Auto) (0.0 - 0.2 x10 3/uL) 0.50 H Baso # (Auto) (0.0 - 0.2 x10 3/uL) 0.10 Abs Immat Gran (auto) (0.00 - 0.03 x10 3/uL) 0.03 Immature Gran % (0.0 - 2.0 %) 0.4 Nucleated RBC % (0 - 0 %) 0.0 Nucleated RBCs # (Man) (0.0 - 0.1 x10 3/uL) 0.00 12/30 12/29 12/29 12/29 0653 2105 1944 1618 Chemistry POC Glucose (70 - 110 MG/DL) 187 H 236 H Coagulation PTT ([place]) (25.0 - 39.5 Seconds) 47.8 H 38.7 Laboratory Tests 12/30 0732 Chemistry Magnesium (1.6 - 2.6 mg/dL) 2.09 Results: labs reviewed, vital signs reviewed, rhythm personally rev'd, current med profile rev'd Diagnosis, Assessment PlanFree Text A P:The patient is a 53 y.o male with medical history of CAD (PCI to prox and mid LAD in 02/2023), HTN, DM and HLD. He recently had LHC at [facility] due to frequent chest pain and was referred to come here for CABG. The patient was recently admitted to [facility] on 11/27/23 for CABG work-up and surgery was scheduled for 11/30/23 but cancelled due to Right atrium thrombus on ANAND. He was discharged on LifeVest, anticoagulant (eliquis), and planning for CABG in 2-3 months. ECHO on 11/28/23, LVEF was 30-34%. The patient reports went to [facility] in [place] because had frequent chest pain and LifeVest alarming occurred few times, deniesLifeVest shocks. He was found to have episodes of VT, started on Amiodarone bolus/drip, and transfered to [facility] on 12/27/23 for further evaluation. EP consult was requested for evaluation of VT. Non-sustained VT.Con't Amiodarone po 400mg bidper telemetry, SR rate 64 no recurrence of V-tachdiscussed with Dr Davenport- con't amiodarone and proceed CABG when poss. Thrombus (right Atrium)per Dr Mayfield note, intraoperative ANAND showed that the patient has a clot in the right atrium.curently, on heparin dripEliquis was d/C CAD/Chest paincurrently, denies chest painawaiting for CABG decision at 1613 at 1125 RPT #:[id number] OF REPORTFSVqbanirsurdh1517-46-46J18:29:00G.PDOC2 [id number] for patient sviuVEAAESLPTLUPFO7406-52-38I59:13:21 [facility] 2023-12-31 12:23:00 [id number]/7j 5H696iKkT/Z4fZzwcgKu28X++U54O hqyvT9/KqI8ga06EQn00imjb30c7604-61-49V64:23:[address] [address] [address] PATIENT NAME: CHARAN RESTREPO ADMIT DATE: 12/27/23ACCOUNT NO: [id number] ROOM NO: 3345 AGE: 53 REPORT TYPE: 360 - QUERY RESPONSE DOCUMENT SEX: M ADMITTING PHYSICIAN:Jac Marsh MD ATTENDING PHYSICIAN:Marycruz Villalba MD Provider Query QUERY TEXT: Specificity General 360MD Query related questions should be directed to: Micki Awad RN, BSN [email or web address] Please provide any known specificity for AFIB documented in the Critical Care Progress Note by Michelle Dave at 12/29/2023 16:28. The patient's Clinical Indicators include:CV:AFIB-Amiodarone drip off. Transition to oralMetoprolol 25 mg PO BIDCAD-Multivessl disease-CABG to be determined.on ASA/BB/StatinLeft atrial clot-Eliquis 5 mg PO BIDSevere cardiomyopathy-EF 25-29%-Critical Care Progress Note by Michelle Dave at 12/29/2023 16:28Options provided:-- Chronic atrial fibrillation-- Permanent atrial fibrillation-- Paroxysmal atrial fibrillation-- Other persistent atrial fibrillation-- Other - I will add my own diagnosis-- Dismiss - Not applicable / Not valid-- Dismiss - Clinically unable to determine / Unknown-- Assign to another provider QUERY RESPONSE: The patient had chronic atrial fibrillation. Query created by: Micki Awad on 12/30/2023 9:07 AM at 1223 PATIENT NAME: CHARAN RESTREPO noteG.[id number] for patient cfekMZWWKGNRDHKBSM5961-49-31V26:24:16 [facility] 2023-12-31 11:03:00 [id number] 3dcAGH345wL16lNgIOZ3IVERwYRdC TqURmDn98FCRu9ezlib3HHBv5wY3645-74-73Z10:03:00 [facility])Cardiothoracic Surgery ProgREPORT#:[id number] REPORT STATUS: SignedREPORT INITIALIZATION DATE:12/31/23 TIME: 1102 PATIENT: CHARAN RESTREPO UNIT #: [id number]#: [id number] [address] [birth year] AGE: 53 SEX: M ATTEND: Marycruz Villalba AUTHOR: Papo Mayfield MDREPT SERVICE DT/TIME: 12/31/23 1103* ALL edits or amendments must be made on the electronic/computer document * SubjectiveChief complaint:chest pain V-tach CAD Pre op CABG Review of SystemsConstitutional:Denies: chills, fatigue, fever. Skin:Denies: abrasion, bruising, diaphoresis. Allergy/Immun:Denies: allergic reaction, anaphylaxis, itching. Musculoskeletal:Denies: arthritis, extremity pain, extremity swelling. Heme:Denies: adenopathy, bleeding, bruising. Neuro:Denies: change in LOC, confusion, dizziness, seizure, syncope. All systems rev neg: except as marked Objective GeneralVS/I OLast Documented: Result Date Time Pulse Ox 98 12/30 1051 FiO2 21 12/30 1051 O2 Delivery Room air 12/30 1051 B/P 113/69 12/30 0802 B/P Mean 0.0 12/30 08 Temp 36.5 12/30 08 Pulse 54 12/30 0802 Resp 14 12/30 08 24 hour I O ending at 0700: 12/30 0700 12/29 1900 Intake Total 650 Output Total 1200 Balance -550 Intake, Oral 650 Output, Urine 1200 Patient 81.3 kg Weight Weight Standing scale Measurement Method PATIENT WEIGHT: Weight (lb): 179Weight (oz): 3.77Weight (kg): 81.300 Dietitian Nutrition assessmentThe data set between the solid lines has been imported from the dietitian's assessment. BMI Calculated: 22.8Nutrition related diagnosis: Nutrition diagnosis details: Nutrition problem: Nutrition etiology: Nutrition signs and symptoms: Nutrition prescription: Dietitian name: Assessment completed: Physical ExamGeneral appearance: alert, awake, orientedHEENT: anicteric, mucosal membranes moist, pupils reactive to lightNeck: full range of motion, non-tenderCardiovascular: normal heart sounds, regular rate rhythmRespiratory: aerating well, symmetric expansionAbdomen: soft, non-tenderGenitourinary: no bladder distention, no flank pain, no foleyExtremities: dry, moves allMusculoskeletal: full range of motion, painless range of motionNeuro/PLASTICS 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, CNII-XII intactSkin: dry, intactPsychiatry: normal affect, normal mood Current MedicationsMedications:Active Meds + DC'd Last 24 HrsHeparin Sodium (HEPARIN 5000 UNITS/ML) 5,000 UNIT ASDIR PRN PRN IV Heparin Sodium (HEPARIN 5000 UNITS/ML) 2,500 UNIT ASDIR PRN PRN IV Heparin Sodium (Porcine) (HEPARIN 25,000 UNITS/ 1/2NS 500ML) 500 ML ASDIR IV (CKD) Polyethylene Glycol (MIRALAX) 17 GM DAILY PO Senna/Docusate Sodium (SENOKOT S) 1 TAB DAILY PO Amiodarone HCl (AMIODARONE HCL) 400 MG BID 9A 5P PO (CKD) Valsartan (DIOVAN) 80 MG DAILY PO Morphine Sulfate (morphine SULFATE) 4 MG Q4H PRN PRN IV Atorvastatin Calcium (LIPITOR) 40 MG BEDTIME PO Insulin Human Lispro (HUMALOG) 0 AC HS SUBQ Glucagon (GLUCAGON) 1 MG DAILY PRN PRN IM Mupirocin (BACTROBAN 2% 22 GM OINTMENT) 1 APPLIC BID NASAL (DC) Apixaban (ELIQUIS 5MG TABLET) 5 MG BID PO (DC) Aspirin (ASPIRIN) 81 MG DAILY PO Metoprolol Succinate (TOPROL XL) 25 MG DAILY PO Hydrocodone Bitart/Acetaminophen (NORCO 10/325) 1 TAB Q4H PRN PRN PO Nitroglycerin (NITROSTAT) 0.4 MG Q5M PRN PRN SL ResultsFindings/Data:Laboratory Tests 12/30 12/30 12/29 12/29 0806 0732 2105 1618 Chemistry Sodium (134 - 147 mEq/L) 136 Potassium (3.4 - 5.0 mEq/L) 4.5 Chloride (100 - 108 mEq/L) 108 Carbon Dioxide (21 - 33 mEq/l) 21 Anion Gap (0 - 20) 12 BUN (7 - 25 mg/dL) 13 Creatinine (0.6 - 1.3 mg/dL) 0.9 Glomerular Filtr Rate (90 - 95) 101.5 H Glucose (77 - 141 mg/dL) 176 H POC Glucose (70 - 110 MG/DL) 174 H 187 H 236 H Calcium (8.0 - 10.5 mg/dL) 8.9 Ionized Calcium Zina (1.09 - 1.30 MMOL/L) 1.08 L Phosphorus (2.5 - 4.9 MG/DL) 3.5 Magnesium (1.6 - 2.6 mg/dL) 2.09 Laboratory Tests 12/30 12/29 12/29 0653 1944 1231 Coagulation INR (0.8 - 1.2) 1.2 PTT (Ulises) (25.0 - 39.5 Seconds) 47.8 H 38.7 37.1 PT Patient/Control Mix (9.3 - 12.9 SECONDS) 12.9 Laboratory Tests 12/30 0732 Hematology WBC (4.5 - 11.0 x10 3/uL) 7.5 RBC (4.00 - 5.60 x10 6/uL) 5.48 Hgb (12.5 - 16.9 g/dL) 15.8 Hct (37.5 - 50.7 %) 48.0 MCV (81.0 - 99.0 fL) 87.6 MCH (27.0 - 33.0 pg) 28.8 MCHC (33.0 - 37.0 g/dL) 32.9 L RDW (11.5 - 14.5 %) 13.2 Plt Count (150 - 400 x10 3/uL) 180 MPV (7.0 - 9.0 fL) 10.2 H Neut % (Auto) (56.0 - 77.0 %) 54.0 L Lymph % (Auto) (14.0 - 32.0 %) 30.1 Marion % (Auto) (4.8 - 9.0 %) 7.6 Eos % (Auto) (0.3 - 3.7 %) 6.6 H Baso % (Auto) (0.0 - 2.0 %) 1.3 Neut # (Auto) (2.0 - 7.6 x10 3/uL) 4.07 Lymph # (Auto) (1.0 - 3.8 x10 3/uL) 2.27 Marion # (Auto) (0.1 - 0.8 x10 3/uL) 0.57 Eos # (Auto) (0.0 - 0.2 x10 3/uL) 0.50 H Baso # (Auto) (0.0 - 0.2 x10 3/uL) 0.10 Abs Immat Gran (auto) (0.00 - 0.03 x10 3/uL) 0.03 Immature Gran % (0.0 - 2.0 %) 0.4 Nucleated RBC % (0 - 0 %) 0.0 Nucleated RBCs # (Man) (0.0 - 0.1 x10 3/uL) 0.00 Results: labs reviewed, vital signs stable, current med profile rev'd Diagnosis, Assessment PlanHospital course to date:This is a 53-year-old gentleman with past medical history of coronary artery disease status post previous PCI in the past, hypertension, diabetes, hyperlipidemia, smoker 1 ppd/40 years, and chronic pain who presented to [facility] with complaints of life vest alarming and V-tach. Patient denies any shocks. He was started on an amiodarone drip and transferred to [facility] for further evaluation. 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 He was taken to the operating room where during the intraoperative ANAND there is some suspicion for thrombus, after talking with the patient's wool broker we decided to cancel surgery due to the increase risk of thromboembolic event. Cardiac CT was done, and patient was started on eliquis and discharged home with life vest with a plan for CABG 2-3 months once LV thrombus resolved. CV surgery was consulted for further evaluation. ECHO 1. Left ventricle: The cavity size is mildly dilated. Wall thickness is mildly increased. Systolic function is severely reduced. The estimated ejection fraction is 25-29%. Akinesis of the apical wall. Akinesis of the anterior wall. Hypokinesis of the lateral wall. Grade I diastolic dysfunction.2. Right ventricle: The RV pressure during systole is 31 mm Hg.3. Left atrium: The atrium is moderately dilated.4. Mitral valve: There is mild regurgitation.5. Tricuspid valve: There is mild regurgitation.6. Pericardium, extracardiac: A small pericardial effusion is identified anterior to the heart. Patient in stable conditionEP and cardiology followingWill discuss with team regarding timing of surgeryFurther recommendations to follow. 12/30/23Patient in stable conditionLabs reviewedCTA heart Discontinue eliquisStart heparin dripPlan of care discussed with the patient, all questions were answered. 12/31/23Patient doing well, denies complaintsDenies chest pain, continue heparin dripLabs reviewedPending CTA heart, further recommendations to followPlan of care discussed with the patient, all questions were answered Consultants: cardiology, cardiovascular surgery, critical/residential designer, hospitalist at [address] [facility] #:[id number] OF REPORTPRProgress [id number]:03:00G.[id number] able for patient fbuhCYFPGBIDERBSHG3174-07-06F43:56:44 [facility] 2023-12-30 18:12:00 [id number] ASDtiajyIinHIjgH7PZorTpRJCLSq SVv4jdRtvk4v5sFwZCwBbVwp2d25309-17-73Q95:12:00 [facility] ([facility])Hospitalist Progress NoteREPORT#:[id number] REPORT STATUS: SignedREPORT INITIALIZATION DATE:12/30/23 TIME: 1811 PATIENT: CHARAN RESTREPO UNIT #: [id number]#: [id number] ROOM/BED: G.3345-1DOB: [birth year] AGE: 53 SEX: M ATTEND: Marycruz Villalba MDADM AUTHOR: Marycruz Villalba MDREPT SERVICE DT/TIME: 12/30/231811* ALL edits or amendments must be made on the electronic/computer document * SubjectiveChief complaint:no complaintstime seen 130 pm Objective GeneralVS/I O:Vital Signs: Date Time Temp Pulse Resp B/P B/P Pulse O2 O2 Flow FiO2 Mean Ox Delivery Rate 12/29 1600 98.6 12/29 1500 61 14 126/69 92 96 12/29 1400 61 17 128/66 90 96 12/29 1300 58 18 114/65 84 93 12/29 1243 62 9 97 12/29 1200 97.8 12/29 1200 69 45 154/79 107 99 /10 1100 65 15 125/73 93 96 03/10 1000 72 20 152/70 101 98 /10 0900 57 10 107/55 75 95 /10 0800 98.8 /10 0800 69 30 150/76 107 96 /10 0600 60 23 134/65 92 96 /10 0501 54 15 122/70 90 99 03/10 0400 97.8 Room air 12/29 0400 53 11 108/57 78 95 /10 0301 136/78 100 03/10 0101 54 10 95/50 68 94 03/10 0000 98.2 Room air 12/29 0000 56 20 126/69 92 95 12/28 2300 54 11 137/67 95 97 12/28 2200 55 13 122/63 87 96 / 2100 54 14 124/66 89 96 12/28 2027 97 Room air 12/28 2000 98.0 Room air 12/28 2000 59 13 130/68 92 97 12/28 1900 63 19 135/77 100 98 24 hour I O ending at 0700: 12/29 0700 12/28 1900 Intake Total 700 960 Output Total Balance 700 960 Intake, Oral 700 960 Number 0 Bowel Movements Number Voids 3 5 Patient 72 kg Weight Weight Bed scale Measurement Method PATIENT WEIGHT: Weight (lb): 158Weight (oz): 11.73Weight (kg): 72.000 Medications:Active Meds + DC'd Last 24 HrsHeparin Sodium (HEPARIN 5000 UNITS/ML) 5,000 UNIT ASDIR PRN PRN IV Heparin Sodium (HEPARIN 5000 UNITS/ML) 2,500 UNIT ASDIR PRN PRN IV Heparin Sodium (Porcine) (HEPARIN 25,000 UNITS/ 1/2NS 500ML) 500 ML ASDIR IV (CKD) Polyethylene Glycol (MIRALAX) 17 GM DAILY PO Senna/Docusate Sodium (SENOKOT S) 1 TAB DAILY PO Magnesium Sulfate/Dextrose (MAGNESIUM SULFATE 1GM/D5W 100ML) 100 ML ONCE ONE IV (DC) Amiodarone HCl (AMIODARONE HCL) 400 MG BID 9A 5P PO (CKD) Valsartan (DIOVAN) 80 MG DAILY PO Morphine Sulfate (morphine SULFATE) 4 MG Q4H PRN PRN IV Atorvastatin Calcium (LIPITOR) 40 MG BEDTIME PO Insulin Human Lispro (HUMALOG) 0 AC HS SUBQ Glucagon (GLUCAGON) 1 MG DAILY PRN PRN IM Mupirocin (BACTROBAN 2% 22 GM OINTMENT) 1 APPLIC BID NASAL Apixaban (ELIQUIS 5MG TABLET) 5 MG BID PO (DC) Aspirin (ASPIRIN) 81 MG DAILY PO Metoprolol Succinate (TOPROL XL) 25 MG DAILY PO Hydrocodone Bitart/Acetaminophen (NORCO 10/325) 1 TAB Q4H PRN PRN PO Nitroglycerin (NITROSTAT) 0.4 MG Q5M PRN PRN SL Free Text Obj NotesFree Text Obj Notes:Physical ExamGeneral appearance: alert, awakeHead/Eyes: normal conjunctiva/scleraCardiovascular: normal heart sounds, regular rate rhythmRespiratory: clear to auscultation, no distressAbdomen: normal bowel sounds, softExtremities: no edemaNeuro/PLASTICS 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, normal speechSkin: intact, no rashPsychiatry: normal affect, normal mood Diagnosis, Assessment Plan Free Text DxA P NotesFree text DxA P notes:Patient is a 53 yrs old male with Pmhx as mentioned above who presented withAssessment:Non-sustained V-tachy, on Amiodarone dripChest pain 2/2 aboveLife vest stopped firingTobacco abuseDiabetic Mellitus II with hyperglycemiaHx Left atrial clot (on Eliquis)Hx Diabetes Mellitus IIHx CAD PlanAdmit to CCUConsult CardiologyConsult Critical careContinous Telemetry monitoring - to assess for any arrythmiasEcho pending : Last Echo 11/29/23-EF 30-34%, grade 1 diastolic dysfunctionVital signs as per unit protocolAmiodarone drip @ 0.5mg/hrNPO for nowOptimize blood glucose, Hold Lantus Insulin while patient NPO/ use Humalog SSI coverage PRNElectrolyte monitoring and replacement as per Critical care followingLife vest off, pending cardiology evaluationBlood pressure acceptableHome meds restartedLeft atrial clot: AC EliquisCAD: Lipitor/Metoprolol/AspirinSmoking cessation counseling- discussed with patient the importants of quiting smoking and he is aware that continued smoking will complicate his current cardiac situation as well as other health problems such as cancer and poor circulation to his lower extremities and chest pain.He verablized undestanding, Offered patient Nicotine patch but he declined.Pain control: [place] PRNDVT ppx: AC [facility]:No acute cardiopulmonary process.Plan of care discussed with patient/NurseFurther rec's as per clinical course. 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 detailer furniture patient has been cleared to transfer out of [facility] while awaiting workup at 1351 RPT #:[id number] OF REPORTPRProgress [id number]:12:00G.[id number] able for patient eiddYWHZIAIAKEMKGI6661-99-28I11:51:50 [facility] 2023-12-30 14:32:00 [id number] rQto8Dh8L/D1Ig8C+SsuW7wxTRtHg 29Y4GXXEmQZ12UfSG8m9wHi8+tV2992-24-25B76:32:00 [facility] ([facility])Cardiology Progress NoteREPORT#:[id number] REPORT STATUS: SignedREPORT INITIALIZATION DATE:12/30/23 TIME: 1431 PATIENT: CHARAN RESTREPO UNIT #: [id number]#: [id number] [address] [birth year] AGE: 53 SEX: M ATTEND: Marycruz Villalba AUTHOR: Himanshu Lebron MDREPT SERVICE DT/TIME: 12/30/231431* ALL edits or amendments must be made on the electronic/computer document * SubjectiveChief complaint:CP, VT, LIfe Vest alarmingHPI:This is a 53-year-old male with past medical history of coronary artery disease 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 Patient was admitted to [place] a month ago for CABG was found to have LV thrombus and was discharged home on Eliquis with a LifeVestwith a plan to do CABG in 2 to 3 months from yesterday LV thrombus resolved. Patient said that has been having chest pain almost on a daily basis since nothing changed and that since. However he said over the last 2 days he has been hearing the LifeVest alarming he end up going to [facility] found to have nonsustained VT frequent episodes and was started on amiodarone drip and transferred to our facility. Patient denies any LifeVest shocks, dizziness or loss of consciousness Objective GeneralVS/I O:24 hour I O ending at 0700: 12/29 0700 03 1900 Intake Total 700 960 Output Total Balance 700 960 Intake, Oral 700 960 Number 0 Bowel Movements Number Voids 3 5 Patient 72 kg Weight Weight Bed scale Measurement Method Vital Signs: Date Time Temp Pulse Resp B/P B/P Pulse O2 O2 Flow FiO2 Mean Ox Delivery Rate 12/29 1243 62 9 97 03/10 1200 69 45 154/79 107 99 03/10 1100 65 15 125/73 93 96 03/10 1000 72 20 152/70 101 98 03/10 0900 57 10 107/55 75 95 03/10 0800 98.8 03/ 0800 69 30 150/76 107 96 03/10 0600 60 23 134/65 92 96 03/10 0501 54 15 122/70 90 99 03/10 0400 97.8 Room air 03/ 0400 53 11 108/57 78 95 03/10 0301 136/78 100 03/10 0101 54 10 95/50 68 94 03/10 0000 98.2 Room air / 0000 56 20 126/69 92 95 03/ 2300 54 11 137/67 95 97 / 2200 55 13 122/63 87 96 03/ 2100 54 14 124/66 89 96 12/28 2027 97 Room air 12/28 2000 98.0 Room air / 2000 59 13 130/68 92 97 03/09 1900 63 19 135/77 100 98 03/ 1800 63 13 123/65 88 97 03/ 1700 58 14 117/67 85 95 03/ 1600 97.1 03 1600 62 32 133/78 98 99 03/ 1500 55 14 122/76 92 98 PATIENT WEIGHT: Weight (lb): 158Weight (oz): 11.73Weight (kg): 72.000 Medications:Active Meds + DC'd Last 24 HrsHeparin Sodium (HEPARIN 5000 UNITS/ML) 5,000 UNIT ASDIR PRN PRN IV Heparin Sodium (HEPARIN 5000 UNITS/ML) 2,500 UNIT ASDIR PRN PRN IV Heparin Sodium (Porcine) (HEPARIN 25,000 UNITS/ 1/2NS 500ML) 500 ML ASDIR IV (CKD) Polyethylene Glycol (MIRALAX) 17 GM DAILY PO Senna/Docusate Sodium (SENOKOT S) 1 TAB DAILY PO Magnesium Sulfate/Dextrose (MAGNESIUM SULFATE 1GM/D5W 100ML) 100 ML ONCE ONE IV (DC) Amiodarone HCl (AMIODARONE HCL) 400 MG BID 9A 5P PO (CKD) Valsartan (DIOVAN) 80 MG DAILY PO Morphine Sulfate (morphine SULFATE) 4 MG Q4H PRN PRN IV Atorvastatin Calcium (LIPITOR) 40 MG BEDTIME PO Insulin Human Lispro (HUMALOG) 0 AC HS SUBQ Glucagon (GLUCAGON) 1 MG DAILY PRN PRN IM Mupirocin (BACTROBAN 2% 22 GM OINTMENT) 1 APPLIC BID NASAL Apixaban (ELIQUIS 5MG TABLET) 5 MG BID PO (DC) Aspirin (ASPIRIN) 81 MG DAILY PO Metoprolol Succinate (TOPROL XL) 25 MG DAILY PO Hydrocodone Bitart/Acetaminophen (NORCO 10/325) 1 TAB Q4H PRN PRN PO Nitroglycerin (NITROSTAT) 0.4 MG Q5M PRN PRN SL Physical ExamGeneral appearance: alert, awakeNeck: full range of motion, non-tender, normal thyroid, supple/no meningismus, no bruit/NL carotids, no JVD, no lymphadenopathy, no masses or swellingCardiovascular: CV assessment: regular rate and rhythmRespiratory: clear to auscultation, no distressAbdomen: non-tender, normal bowel sounds, no distention, no guarding, no mass/organomegaly, no pulsatile mass, no reboundUpper extremity: UE assessment: normal capillary refill, no edemaLower extremity: LE assessment: normal capillary refill, no edema ResultsFindings/Data:Laboratory Tests 12/29 12/29 12/28 12/28 1041 0426 1948 1600 Chemistry Sodium (134 - 147 mEq/L) 137 Potassium (3.4 - 5.0 mEq/L) 4.0 Chloride (100 - 108 mEq/L) 103 Carbon Dioxide (21 - 33 mEq/l) 28 Anion Gap (0 - 20) 10 BUN (7 - 25 mg/dL) 21 Creatinine (0.6 - 1.3 mg/dL) 1.0 Glomerular Filtr Rate (90 - 95) 89.4 L Glucose (77 - 141 mg/dL) 283 H POC Glucose (70 - 110 MG/DL) 131 H 173 H 180 H Calcium (8.0 - 10.5 mg/dL) 9.0 Ionized Calcium Zina (1.09 - 1.30 MMOL/L) 1.15 Phosphorus (2.5 - 4.9 MG/DL) 3.8 Magnesium (1.6 - 2.6 mg/dL) 1.98 Laboratory Tests 12/29 1231 Coagulation INR (0.8 - 1.2) 1.2 PTT (Ulises) (25.0 - 39.5 Seconds) 37.1 PT Patient/Control Mix (9.3 - 12.9 SECONDS) 12.9 Laboratory Tests 12/29 0426 Hematology WBC (4.5 - 11.0 x10 3/uL) 7.2 RBC (4.00 - 5.60 x10 6/uL) 5.41 Hgb (12.5 - 16.9 g/dL) 15.7 Hct (37.5 - 50.7 %) 45.7 MCV (81.0 - 99.0 fL) 84.5 MCH (27.0 - 33.0 pg) 29.0 MCHC (33.0 - 37.0 g/dL) 34.4 RDW (11.5 - 14.5 %) 13.2 Plt Count (150 - 400 x10 3/uL) 188 MPV (7.0 - 9.0 fL) 10.2 H Neut % (Auto) (56.0 - 77.0 %) 55.7 L Lymph % (Auto) (14.0 - 32.0 %) 29.3 Marion % (Auto) (4.8 - 9.0 %) 7.0 Eos % (Auto) (0.3 - 3.7 %) 6.3 H Baso % (Auto) (0.0 - 2.0 %) 1.1 Neut # (Auto) (2.0 - 7.6 x10 3/uL) 4.00 Lymph # (Auto) (1.0 - 3.8 x10 3/uL) 2.10 Marion # (Auto) (0.1 - 0.8 x10 3/uL) 0.50 Eos # (Auto) (0.0 - 0.2 x10 3/uL) 0.45 H Baso # (Auto) (0.0 - 0.2 x10 3/uL) 0.08 Abs Immat Gran (auto) (0.00 - 0.03 x10 3/uL) 0.04 H Immature Gran % (0.0 - 2.0 %) 0.6 Nucleated RBC % (0 - 0 %) 0.0 Nucleated RBCs # (Man) (0.0 - 0.1 x10 3/uL) 0.00 Laboratory Tests 12/29 425 Chemistry Magnesium (1.6 - 2.6 mg/dL) 1.98 Diagnosis, Assessment PlanConsultants: cardiology, cardiovascular surgery, 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 Coronary artery disease: Patient has chronic chest pain unclear if it is dueto his underlying coronary artery disease versus atypical chest pain due to the chronicity. 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 Echocardiogram done and showed no LV thrombus will re discuss with CT surgery doing CABG now. Continue Eliquis, aspirin, statin and beta-luís. 2. Ventricular tachycardia unclear if it was sustained however patient has started on amnio drip at outside facility and transferred to our hospital. Currently the patient has sinus rhythm with no further tachycardia. Will consult EP. Patient has a LifeVest on. 3. Severe cardiomyopathy: Likely ischemic, CABG evaluation as above. Continue metoprolol succinate, and valsartan and Farxiga. If blood pressure remains stable, I will add Aldactone 4. Diabetes: per Primary team, Will start Farxiga 5. Hyperlipidemia continue statin PER CTS WILL DO CTA OF CHEST AND THEN CABG at 1433 RPT #:[id number] OF REPORTPRProgress [id number]:32:00G.[id number] able for patient wwrzJSGXWHVUJNQYYX4982-21-15M29:33:33 [facility] 2023-12-30 12:15:00 [id number] V04cm0ZN5IKjmwanNos+HC+FQF4Gw J/VhW2XtbZ+sX2RjIMD6OOsXuGc1225-58-57F09:15:00 [facility] ProgREPORT#:[id number] REPORT STATUS: SignedREPORT INITIALIZATION DATE:12/30/23 TIME: 1215 PATIENT: CHARAN RESTREPO UNIT #: [id number]#: [id number] [address] [birth year] AGE: 53 SEX: M ATTEND: Marycruz Villalba [facility] AUTHOR: Papo Mayfield MDREPT SERVICE DT/TIME: 12/30/23 1215* ALL edits or amendments must be made on the electronic/computer document * SubjectiveChief complaint:chest painV-tachCADPre op CABG Review of SystemsConstitutional:Denies: chills, fatigue, fever. Skin:Denies: abrasion, bruising, diaphoresis. Allergy/Immun:Denies: allergic reaction, anaphylaxis, itching. Musculoskeletal:Denies: arthritis, extremity pain, extremity swelling. Heme:Denies: adenopathy, bleeding, bruising. Neuro:Denies: change in LOC, confusion, dizziness, seizure, syncope. All systems rev neg: except as marked Objective GeneralVS/I OLast Documented: Result Date Time Temp 37.1 12/29 0800 Pulse Ox 96 12/29 0600 B/P 134/65 12/29 0600 B/P Mean 92 12/29 0600 Pulse 60 12/29 0600 Resp 23 12/29 0600 O2 Delivery Room air 12/29 0400 24 hour I O ending at 0700: 12/29 0700 12/28 1900 Intake Total 700 960 Output Total Balance 700 960 Intake, Oral 700 960 Number 0 Bowel Movements Number Voids 3 5 Patient 72 kg Weight Weight Bed scale Measurement Method PATIENT WEIGHT: Weight (lb): 158Weight (oz): 11.73Weight (kg): 72.000 Dietitian Nutrition assessmentThe data set between the solid lines has been imported from the dietitian's assessment. BMI Calculated: 22.8Nutrition related diagnosis: Nutrition diagnosis details: Nutrition problem: Nutrition etiology: Nutrition signs and symptoms: Nutrition prescription: Dietitian name: Assessment completed: Physical ExamGeneral appearance: alert, awake, orientedHEENT: anicteric, mucosal membranes moist, pupils reactive to lightNeck: full range of motion, non-tenderCardiovascular: normal heart sounds, regular rate rhythmRespiratory: aerating well, symmetric expansionAbdomen: soft, non-tenderGenitourinary: no bladder distention, no flank pain, no foleyExtremities: dry, moves allMusculoskeletal: full range of motion, painless range of motionNeuro/PLASTICS 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, CNII-XII intactSkin: dry, intactPsychiatry: normal affect, normal mood Current MedicationsMedications:Active Meds + DC'd Last 24 HrsHeparin Sodium (HEPARIN 5000 UNITS/ML) 5,760 UNIT ASDIR PRN PRN IV (UNV) Heparin Sodium (HEPARIN 5000 UNITS/ML) 2,880 UNIT ASDIR PRN PRN IV (UNV) Heparin Sodium (Porcine) (HEPARIN 25,000 UNITS/ 1/2NS 500ML) 500 ML ASDIR IV (UNV) Polyethylene Glycol (MIRALAX) 17 GM DAILY PO Senna/Docusate Sodium (SENOKOT S) 1 TAB DAILY PO Magnesium Sulfate/Dextrose (MAGNESIUM SULFATE 1GM/D5W 100ML) 100 ML ONCE ONE IV (DC) Amiodarone HCl (AMIODARONE HCL) 400 MG BID 9A 5P PO (CKD) Valsartan (DIOVAN) 80 MG DAILY PO Morphine Sulfate (morphine SULFATE) 4 MG Q4H PRN PRN IV Atorvastatin Calcium (LIPITOR) 40 MG BEDTIME PO Insulin Human Lispro (HUMALOG) 0 AC HS SUBQ Glucagon (GLUCAGON) 1 MG DAILY PRN PRN IM Mupirocin (BACTROBAN 2% 22 GM OINTMENT) 1 APPLIC BID NASAL Apixaban (ELIQUIS 5MG TABLET) 5 MG BID PO (DCr) Aspirin (ASPIRIN) 81 MG DAILY PO Metoprolol Succinate (TOPROL XL) 25 MG DAILY PO Hydrocodone Bitart/Acetaminophen (NORCO 10/325) 1 TAB Q4H PRN PRN PO Nitroglycerin (NITROSTAT) 0.4 MG Q5M PRN PRN SL ResultsFindings/Data:Laboratory Tests 12/29 12/29 12/28 12/28 1041 0426 1948 1600 Chemistry Sodium (134 - 147 mEq/L) 137 Potassium (3.4 - 5.0 mEq/L) 4.0 Chloride (100 - 108 mEq/L) 103 Carbon Dioxide (21 - 33 mEq/l) 28 Anion Gap (0 - 20) 10 BUN (7 - 25 mg/dL) 21 Creatinine (0.6 - 1.3 mg/dL) 1.0 Glomerular Filtr Rate (90 - 95) 89.4 L Glucose (77 - 141 mg/dL) 283 H POC Glucose (70 - 110 MG/DL) 131 H 173 H 180 H Calcium (8.0 - 10.5 mg/dL) 9.0 Ionized Calcium Zina (1.09 - 1.30 MMOL/L) 1.15 Phosphorus (2.5 - 4.9 MG/DL) 3.8 Magnesium (1.6 - 2.6 mg/dL) 1.98 Laboratory Tests 12/29 0426 Hematology WBC (4.5 - 11.0 x10 3/uL) 7.2 RBC (4.00 - 5.60 x10 6/uL) 5.41 Hgb (12.5 - 16.9 g/dL) 15.7 Hct (37.5 - 50.7 %) 45.7 MCV (81.0 - 99.0 fL) 84.5 MCH (27.0 - 33.0 pg) 29.0 MCHC (33.0 - 37.0 g/dL) 34.4 RDW (11.5 - 14.5 %) 13.2 Plt Count (150 - 400 x10 3/uL) 188 MPV (7.0 - 9.0 fL) 10.2 H Neut % (Auto) (56.0 - 77.0 %) 55.7 L Lymph % (Auto) (14.0 - 32.0 %) 29.3 Marion % (Auto) (4.8 - 9.0 %) 7.0 Eos % (Auto) (0.3 - 3.7 %) 6.3 H Baso % (Auto) (0.0 - 2.0 %) 1.1 Neut # (Auto) (2.0 - 7.6 x10 3/uL) 4.00 Lymph # (Auto) (1.0 - 3.8 x10 3/uL) 2.10 Marion # (Auto) (0.1 - 0.8 x10 3/uL) 0.50 Eos # (Auto) (0.0 - 0.2 x10 3/uL) 0.45 H Baso # (Auto) (0.0 - 0.2 x10 3/uL) 0.08 Abs Immat Gran (auto) (0.00 - 0.03 x10 3/uL) 0.04 H Immature Gran % (0.0 - 2.0 %) 0.6 Nucleated RBC % (0 - 0 %) 0.0 Nucleated RBCs # (Man) (0.0 - 0.1 x10 3/uL) 0.00 Results: labs reviewed, vital signs stable, narda personally rev'd, current med profile rev'd Diagnosis, Assessment PlanHospital course to date:This is a 53-year-old gentleman with past medical history of coronary artery disease status post previous PCI in the past, hypertension, diabetes, hyperlipidemia, smoker 1 ppd/40 years, and chronic pain who presented to [facility] with complaints of life vest alarming and V-tach. Patient denies any shocks. He was started on an amiodarone drip and transferred to [facility] for further evaluation. 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 He was taken to the operating room where during the intraoperative ANAND there is some suspicion for thrombus, after talking with the patient's wool broker we decided to cancel surgery due to the increase risk of thromboembolic event. Cardiac CT was done, and patient was started on eliquis and discharged home with life vest with a plan for CABG 2-3 months once LV thrombus resolved. CV surgery was consulted for further evaluation. ECHO 1. Left ventricle: The cavity size is mildly dilated. Wall thickness is mildly increased. Systolic function is severely reduced. The estimated ejection fraction is 25-29%. Akinesis of the apical wall. Akinesis of the anterior wall. Hypokinesis of the lateral wall. Grade I diastolic dysfunction.2. Right ventricle: The RV pressure during systole is 31 mm Hg.3. Left atrium: The atrium is moderately dilated.4. Mitral valve: There is mild regurgitation.5. Tricuspid valve: There is mild regurgitation.6. Pericardium, extracardiac: A small pericardial effusion is identified anterior to the heart. Patient in stable conditionEP and cardiology followingWill discuss with team regarding timing of surgeryFurther recommendations to follow. 12/30/23Patient in stable conditionLabs reviewedCTA heart Discontinue eliquisStart heparin dripPlan of care discussed with the patient, all questions were answered. Consultants: cardiology, cardiovascular surgery, critical/residential designer, hospitalist at 0941 RPT #:[id number] OF REPORTPRProgress [id number]:15:00G.[id number] able for patient ewxqZPWUPMYTHRDORC6404-35-02E53:42:51 [facility] 2023-12-30 10:30:00 [id number] y/XJZ6QvSp4Vq09zQpGscRjZrvdP5 tMA+QrB5VrcconwCoHwsv2mIf9Q2103-80-66Q12:30:00 [facility] ([facility])Critical Care Progress NoteREPORT#:[id number] REPORT STATUS: SignedREPORT INITIALIZATION DATE:12/30/23 TIME: 103 PATIENT: CHARAN RESTREPO UNIT #: [id number]#: [id number] [address] [birth year] AGE: 53 SEX: M ATTEND: Marycruz Villalba AUTHOR: Yamilet Curtis CNPREPT SERVICE DT/TIME: 12/30/23 1030* ALL edits or amendments must be made on the electronic/computer document * SubjectiveChief complaint: Chest pain Dyspnea History of CAD Left Atrial Clot on EliquisHPI:Charan Restrepo is a 53-year-old male with past medical history significant for low ejection fraction, history of coronary disease, left atrial clot on Eliquis,presented to the ER at [facility] in [place] with chest pain. He also complained of increased shortness of breath and arrhythmia that has been going on for the last few weeks. Patient was found to have nonsustained ventricular tachycardia. He was given amiodarone 150 mg bolus over10 minutes and then started on drip at 1 mg/min. Patient has been on Eliquis because he was told that he has a blood clot in the left atrium and the plan wasto dissolve the blood clot before CABG that was supposed to be performed. Objective GeneralVS/I OLast Documented: Result Date Time Temp 98.8 12/29 0800 Pulse Ox 96 12/29 06 B/P 134/65 12/29 0600 B/P Mean 92 12/29 0600 Pulse 60 12/29 0600 Resp 23 12/29 0600 O2 Delivery Room air 12/29 0400 24 hour I O ending at 0700: 12/29 0700 12/28 1900 Intake Total 700 960 Output Total Balance 700 960 Intake, Oral 700 960 Number 0 Bowel Movements Number Voids 3 5 Patient 72 kg Weight Weight Bed scale Measurement Method PATIENT WEIGHT: Weight (lb): 158Weight (oz): 11.73Weight (kg): 72.000 Medications:Active Meds + DC'd Last 24 HrsPolyethylene Glycol (MIRALAX) 17 GM DAILY PO Senna/Docusate Sodium (SENOKOT S) 1 TAB DAILY PO Magnesium Sulfate/Dextrose (MAGNESIUM SULFATE 1GM/D5W 100ML) 100 ML ONCE ONE IV (DC) Amiodarone HCl (AMIODARONE HCL) 400 MG BID 9A 5P PO (CKD) Valsartan (DIOVAN) 80 MG DAILY PO Morphine Sulfate (morphine SULFATE) 4 MG Q4H PRN PRN IV Atorvastatin Calcium (LIPITOR) 40 MG BEDTIME PO Insulin Human Lispro (HUMALOG) 0 AC HS SUBQ Glucagon (GLUCAGON) 1 MG DAILY PRN PRN IM Mupirocin (BACTROBAN 2% 22 GM OINTMENT) 1 APPLIC BID NASAL Apixaban (ELIQUIS 5MG TABLET) 5 MG BID PO Aspirin (ASPIRIN) 81 MG DAILY PO Metoprolol Succinate (TOPROL XL) 25 MG DAILY PO Hydrocodone Bitart/Acetaminophen (NORCO 10/325) 1 TAB Q4H PRN PRN PO Nitroglycerin (NITROSTAT) 0.4 MG Q5M PRN PRN ResultsFindings/data:Laboratory Tests 12/29 12/28 12/28 12/28 0426 1948 1600 1119 Chemistry Sodium (134 - 147 mEq/L) 137 Potassium (3.4 - 5.0 mEq/L) 4.0 Chloride (100 - 108 mEq/L) 103 Carbon Dioxide (21 - 33 mEq/l) 28 Anion Gap (0 - 20) 10 BUN (7 - 25 mg/dL) 21 Creatinine (0.6 - 1.3 mg/dL) 1.0 Glomerular Filtr Rate (90 - 95) 89.4 L Glucose (77 - 141 mg/dL) 283 H POC Glucose (70 - 110 MG/DL) 173 H 180 H 140 H Calcium (8.0 - 10.5 mg/dL) 9.0 Ionized Calcium Zina (1.09 - 1.30 MMOL/L) 1.15 Phosphorus (2.5 - 4.9 MG/DL) 3.8 Magnesium (1.6 - 2.6 mg/dL) 1.98 Laboratory Tests 12/29 425 Hematology WBC (4.5 - 11.0 x10 3/uL) 7.2 RBC (4.00 - 5.60 x10 6/uL) 5.41 Hgb (12.5 - 16.9 g/dL) 15.7 Hct (37.5 - 50.7 %) 45.7 MCV (81.0 - 99.0 fL) 84.5 MCH (27.0 - 33.0 pg) 29.0 MCHC (33.0 - 37.0 g/dL) 34.4 RDW (11.5 - 14.5 %) 13.2 Plt Count (150 - 400 x10 3/uL) 188 MPV (7.0 - 9.0 fL) 10.2 H Neut % (Auto) (56.0 - 77.0 %) 55.7 L Lymph % (Auto) (14.0 - 32.0 %) 29.3 Marion % (Auto) (4.8 - 9.0 %) 7.0 Eos % (Auto) (0.3 - 3.7 %) 6.3 H Baso % (Auto) (0.0 - 2.0 %) 1.1 Neut # (Auto) (2.0 - 7.6 x10 3/uL) 4.00 Lymph # (Auto) (1.0 - 3.8 x10 3/uL) 2.10 Marion # (Auto) (0.1 - 0.8 x10 3/uL) 0.50 Eos # (Auto) (0.0 - 0.2 x10 3/uL) 0.45 H Baso # (Auto) (0.0 - 0.2 x10 3/uL) 0.08 Abs Immat Gran (auto) (0.00 - 0.03 x10 3/uL) 0.04 H Immature Gran % (0.0 - 2.0 %) 0.6 Nucleated RBC % (0 - 0 %) 0.0 Nucleated RBCs # (Man) (0.0 - 0.1 x10 3/uL) 0.00 Laboratory Tests 12/30/23 0426:[Embedded Image Not Available]Microbiology:12/26 2120 NASAL: MRSA DNA Surveillance Screen - RES Free Text Obj NotesFree Text Obj Notes:Physical ExamHead/eyes: atraumatic, clear cornea, normocephalic, PERRLENT: moist mucosal membranes, normal nose, normal sinusCardiovascular: normal capillary refill, normal heart sounds, regular rate and rhythmRespiratory: aerating well, clear to auscultationAbdomen: soft, non-tender, normal bowel soundsGenitourinary: voidingExtremities: moves all, normal capillary refill, normal range of motionNeuro/PLASTICS 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, oriented X 3Skin: dry, normal color, normal temperature, no rashPsychiatry: normal affect, normal mood Diagnosis, Assessment PlanProblem list/A P: 1. Chest pain 2. History of heart artery stent 3. Tobacco use 4. V tach 5. Coronary artery disease 6. Hypertension 7. Hyperlipidemia 8. HISTORY OF LEFT ATRIUM BLOOD CLOT Free text A P:Interval Events: 12/30/2023:Seen and examined. Chart reviewed. NSR, on Amiodarone p.o. Continue Eliquis, ASA, statin BB. Plan for CABG, recommendation and timing of surgery TBD. Neuro:AO x 3Pain-norco PRN CV:AFIB-Amiodarone p.o.Metoprolol 25 mg PO BIDCAD-Multivessl disease-CABG to be determined. Continue ASA/BB/StatinLeft atrial clot-Eliquis 5 mg PO BIDSevere cardiomyopathy-EF 25-29%Cardio, EP, CTS following RESP: RATobacco abuse-smoking cessation education GI:Diet as toleratedBowel care Renal:VoidingMonitor renal function. I OMonitor electrolytes and replete as needed ENDO:HypergycemiaGlycemic control. Insulin sliding scale HEME:Monitor CBC and transfuse as needed ID:No sign of infection MSK:Activity as toleratedAmbulatory Critical care time 35 min excluding procedure timeConsultants: cardiology, cardiovascular surgery, critical/residential designer, hospitalistCode status: full codePlan discussed with: patient, family, nurse, interdisc care teamCritical care time: Minutes: 35 at 1336 RPT #:[id number] OF REPORTPRProgress [id number]:30:00G.[id number] able for patient mgknCXOBTMXWMDVXSV9481-90-05U81:36:46 [facility] 2023-12-29 17:46:00 [id number] /VrRD9AZptW1Haq8kcb4u8F5QDRBH nB0/xDa5ZH8J0HsEhPtK9I1FuvT0343-40-46O50:46:00 [facility] CentralHospitalist Progress NoteREPORT#:[id number] REPORT STATUS: SignedREPORT INITIALIZATION DATE:12/29/23 TIME: 1745 PATIENT: CHARAN RESTREPO UNIT #: [id number]#: [id number] [address] [birth year] AGE: 53 SEX: M ATTEND: Marycruz Villalba MDADM AUTHOR: Marycruz Villalba MDREPT SERVICE DT/TIME: 12/29/231745* ALL edits or amendments must be made on the electronic/computer document * SubjectiveChief complaint:no complaintstime seen 215 pm Objective GeneralVS/I O:Vital Signs: Date Time Temp Pulse Resp B/P B/P Pulse O2 O2 Flow FiO2 Mean Ox Delivery Rate 12/28 1600 97.1 12/28 1600 62 32 133/78 98 99 12/28 1500 55 14 122/76 92 98 12/28 1400 55 18 133/67 93 97 03/ 1300 59 15 128/67 90 96 03/ 1200 97.5 03 1200 68 30 138/73 100 98 03/ 1100 53 14 136/71 98 100 03/ 1000 54 11 145/68 98 98 03/ 0900 59 13 132/70 94 96 03/ 0800 97.7 12/28 0800 56 14 139/72 98 94 12/28 0700 56 13 135/75 99 98 03/ 0600 57 11 130/74 97 96 03/ 0500 59 14 129/71 93 96 03/ 0400 97.8 Room air 12/28 0400 63 22 140/76 101 100 12/28 0300 58 15 134/75 99 97 12/28 0201 60 18 98/54 73 95 / 0100 57 12 124/60 86 96 03/ 0000 98.4 Room air / 0000 62 15 134/68 94 98 03 2213 98 Room air 12/27 2203 75 37 144/85 109 99 /08 2100 58 13 125/66 90 98 03/ 2000 98.0 Room air 12/27 2000 59 15 131/76 98 98 03/08 1901 57 13 106/52 75 96 03/08 1800 66 18 146/76 104 99 24 hour I O ending at 0700: 12/28 0700 12/27 1900 Intake Total 500 1090.00 Output Total Balance 500 1090.00 Intake, IV 200.00 Intake, Oral 500 890 Number 0 Bowel Movements Number Voids 2 4 PATIENT WEIGHT: Weight (lb): Weight (oz): Weight (kg): 84.091 Medications:Active Meds + DC'd Last 24 HrsAmiodarone HCl (AMIODARONE HCL) 400 MG BID 9A 5P PO (CKD) Valsartan (DIOVAN) 80 MG DAILY PO Morphine Sulfate (morphine SULFATE) 4 MG Q4H PRN PRN IV Atorvastatin Calcium (LIPITOR) 40 MG BEDTIME PO Insulin Human Lispro (HUMALOG) 0 AC HS SUBQ Glucagon (GLUCAGON) 1 MG DAILY PRN PRN IM Mupirocin (BACTROBAN 2% 22 GM OINTMENT) 1 APPLIC BID NASAL Apixaban (ELIQUIS 5MG TABLET) 5 MG BID PO Aspirin (ASPIRIN) 81 MG DAILY PO Metoprolol Succinate (TOPROL XL) 25 MG DAILY PO Hydrocodone Bitart/Acetaminophen (NORCO 10/325) 1 TAB Q4H PRN PRN PO Nitroglycerin (NITROSTAT) 0.4 MG Q5M PRN PRN SL Amiodarone HCl (AMIODARONE HCL) 450 MG ASDIR IV (DC) Dextrose/Water (D5%W NON-DEHP) 250 MLAmiodarone HCl (AMIODARONE HCL) 450 MG X1ED STA IV (DC) Dextrose/Water (D5%W NON-DEHP) 250 ML Free Text Obj NotesFree Text Obj Notes:Physical ExamGeneral appearance: alert, awakeHead/Eyes: normal conjunctiva/scleraCardiovascular: normal heart sounds, regular rate rhythmRespiratory: clear to auscultation, no distressAbdomen: normal bowel sounds, softExtremities: no edemaNeuro/PLASTICS 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, normal speechSkin: intact, no rashPsychiatry: normal affect, normal mood Diagnosis, Assessment Plan Free Text DxA P NotesFree text DxA P notes:Patient is a 53 yrs old male with Pmhx as mentioned above who presented withAssessment:Non-sustained V-tachy, on Amiodarone dripChest pain 2/2 aboveLife vest stopped firingTobacco abuseDiabetic Mellitus II with hyperglycemiaHx Left atrial clot (on Eliquis)Hx Diabetes Mellitus IIHx CAD PlanAd[facility] CardiologyConsult Critical careContinous Telemetry monitoring - to assess for any arrythmiasEcho pending : Last Echo 11/29/23-EF 30-34%, grade 1 diastolic dysfunctionVital signs as per unit protocolAmiodarone drip @ 0.5mg/hrNPO for nowOptimize blood glucose, Hold Lantus Insulin while patient NPO/ use Humalog SSI coverage PRNElectrolyte monitoring and replacement as per Critical care followingLife vest off, pending cardiology evaluationBlood pressure acceptableHome meds restartedLeft atrial clot: AC EliquisCAD: Lipitor/Metoprolol/AspirinSmoking cessation counseling- discussed with patient the importants of quiting smoking and he is aware that continued smoking will complicate his current cardiac situation as well as other health problems such as cancer and poor circulation to his lower extremities and chest pain.He verablized undestanding, Offered patient Nicotine patch but he declined.Pain control: [place] PRNDVT ppx: AC [facility]quisL[facility] [place]-[facility]:No acute cardiopulmonary process.Plan of care discussed with patient/NurseFurther rec's as per clinical course. 12/28/23- amiodarone gtt as needed- eliquis- ssi/fingersticks- smoking cessation- am labs- cardio input pending- remains in ccu 12/29/23- amiodarone gtt as needed- eliquis- ssi/fingersticks- smoking cessation- [facility] and patient likely for cabg- remains in ccu at 1350 RPT #:[id number] OF REPORTPRProgress [id number]:46:00G.[id number] able for patient zjjmICLTAIRLFVXTWO3691-53-29C91:51:29 [facility] 2023-12-29 16:16:00 [id number]+vTB DtJMTDJEGpSXj5VHUJxTx957n3W3858-90-96C00:16:00 [facility] ([facility])Critical Care Progress NoteREPORT#:[id number] REPORT STATUS: SignedREPORT INITIALIZATION DATE:12/29/23 TIME: 1615 PATIENT: CHARAN RESTREPO UNIT #: [id number]#: [id number] [address] [birth year] AGE: 53 SEX: M ATTEND: Marycruz Villalba AUTHOR: Michelle Galvez DT/TIME: 12/29/23 1616* ALL edits or amendments must be made on the electronic/computer document * SubjectiveChief complaint: Chest pain Dyspnea History of CAD Left Atrial Clot on EliquisHPI:Charan Restrepo is a 53-year-old male with past medical history significant for low ejection fraction, history of coronary disease, left atrial clot on Eliquis,presented to the ER at [facility] in [place] with chest pain. He also complained of increased shortness of breath and arrhythmia that has been going on for the last few weeks. Patient was found to have nonsustained ventricular tachycardia. He was given amiodarone 150 mg bolus over10 minutes and then started on drip at 1 mg/min. Patient has been on Eliquis because he was told that he has a blood clot in the left atrium and the plan wasto dissolve the blood clot before CABG that was supposed to be performed. Objective GeneralVS/I OLast Documented: Result Date Time Pulse Ox 97 12/28 1400 B/P 133/67 12/28 1400 B/P Mean 93 12/28 1400 Pulse 55 12/28 1400 Resp 18 12/28 1400 Temp 97.5 12/28 1200 O2 Delivery Room air 12/28 0400 24 hour I O ending at 0700: 12/28 0700 12/27 1900 Intake Total 500 1090.00 Output Total Balance 500 1090.00 Intake, IV 200.00 Intake, Oral 500 890 Number 0 Bowel Movements Number Voids 2 4 PATIENT WEIGHT: Weight (lb): Weight (oz): Weight (kg): 84.091 Physical ExamHead/eyes: atraumatic, clear cornea, normocephalic, PERRLENT: moist mucosal membranes, normal nose, normal sinusCardiovascular: normal capillary refill, normal heart sounds, regular rate and rhythmRespiratory: aerating well, clear to auscultationAbdomen: soft, non-tender, normal bowel soundsGenitourinary: no urinary catheterExtremities: moves all, normal capillary refill, normal range of motionNeuro/PLASTICS 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, oriented X 3Skin: dry, normal color, normal temperature, no rashPsychiatry: normal affect, normal mood, not homicidal, not suicidal, no hallucinations Diagnosis, Assessment PlanHospital course to date:Interval Events:12/28/23:Afib-now in SB-SR-Amiod drip d/c. May transition to oral. Bedside ECHO completed-pending report. Last reported EF 30-34%-was on a life vest. Left atrial clot: AC Eliquis. 12/29/23:In SR. Transition to oral amiodarone. Continue Eliquis, ASA, statin BB. CABG eval - Recommendation and timing of surgery TBD. Neuro:AO x 3Pain-norco PRN CV:AFIB-Amiodarone drip off. Transition to oralMetoprolol 25 mg PO BIDCAD-Multivessl disease-CABG to be determined. on ASA/BB/StatinLeft atrial clot-Eliquis 5 mg PO BIDSevere cardiomyopathy-EF 25-29% RESP: RATobacco abuse-counciling provided. GI:Ok to resume cardiac diet Renal:VoidingScr 0.9Follow upm and replace electrolyte as needed ENDO:Hypergycemiainsulin sliding scale HEME:Stable ID:No sign of infection MSK: OOBTC CC time 33 min Consultants: cardiology, cardiovascular surgery, critical/residential designer, hospitalist at 1627 RPT #:[id number] OF REPORTPRProgress [id number]:16:00G.[id number] able for patient famoFFYBFFOVUTLAAO8178-80-74S78:28:19 [facility] 2023-12-29 13:30:00 [id number] ewW+qSp1MpNwLz8V9TgLPkCNOk12967-25-16L29:30:00 [facility] CentralCardiothoracic Surgery ConsultREPORT#:[id number] REPORT STATUS: SignedREPORT INITIALIZATION DATE:12/29/23 TIME: 133 PATIENT: CHARAN RESTREPO UNIT #: [id number]#: [id number] [address] [birth year] AGE: 53 SEX: M ATTEND: Marycruz Villalba AUTHOR: Papo Mayfield MDREPT SERVICE DT/TIME: 12/29/23 1330* ALL edits or amendments must be made on the electronic/computer document * History of Present Illness HPIChief complaint:chest painV-tachCADPCP:PCP: Jesusita Osuna MD Requesting ClinicianMerlene Rutherford MDHPI:This is a 53-year-old gentleman with past medical history of coronary artery disease status post previous PCI in the past, hypertension, diabetes, hyperlipidemia, smoker 1 ppd/40 years, and chronic pain who presented to [facility] with complaints of life vest alarming and V-tach. Patient denies any shocks. He was started on an amiodarone drip and transferred to [facility] further evaluation. 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 He was taken to the operating room where during the intraoperative ANAND there is some suspicion for thrombus, after talking with the patient's wool broker we decided to cancel surgery due to the increase risk of thromboembolic event. Cardiac CT was done, and patient was started on eliquis and discharged home with life vest with a plan for CABG 2-3 months once LV thrombus resolved. CV surgery was consulted for further evaluation. HistoryPast Medical History:Reports: Coronary artery disease, Diabetes mellitus. Past Surgical History:Reports: (Left Tib, Fib). Family HistoryDenies: CAD < 40 yrs old. Alcohol Use Alcohol use (social)Drug Use Denies recreational drugsSmoking status for patients 13 years old or older: Current every day smokerDate last smoked: 12/27/23Packs per day: 1Years smoked: 35Pack years: 0Medications:Home Medications:Medication Dose/Rte/Freq Days Qty Entered Last Max Daily Dose Reviewed ATORVASTATIN (LIPITOR) 40 MG PO BEDTIME 30 03/20/23Strength: 40 MG TAB 0828 METOPROLOL SUCC XL 25 MG PO DAILY 30 03/20/23 (TOPROL XL) 0831Strength: 25 MG TAB.SR.24H ASPIRIN 81 MG PO DAILY 30 03/20/23Strength: 81 MG TAB.CHEW 0834 APIXABAN (ELIQUIS) 5 MG PO BID 60 12/03/23Strength: 5 MG TAB 1055 NITROGLYCERIN 0.4 MG SL 30 12/03/23 (NITROSTAT) Q5M PRN PRN CHEST 1055Strength: 0.4 MG TAB.SL PAIN INSULIN GLARGINE 20 UNITS SUBQ 15 12/03/23 (LANTUS SOLOSTAR (15mL)) BEDTIME 1056Strength: 100 UNIT/ML (3 ML)PEN.INJCTR Current Hospital Medications:Blood Formation,Coagulation Sig/Marie Start time Last Medication Dose Route Stop Time Status Admin Apixaban 5 MG BID 12/27 899 AC 12/28 (ELIQUIS 5MG TABLET) PO 03/27 0859 0824 Cardiovascular Drugs Sig/Marie Start time Last Medication Dose Route Stop Time Status Admin Amiodarone HCl 400 MG BID 9A 5P 12/28 899 CKD 12/28 (AMIODARONE HCL) PO 03/28 0859 0823 Valsartan 80 MG DAILY 12/28 899 AC 12/28 (DIOVAN) PO 03/28 0859 0824 Atorvastatin Calcium 40 MG BEDTIME 12/27 2100 AC 12/27 (LIPITOR) PO 01/26 Metoprolol Succinate 25 MG DAILY 12/27 899 AC (TOPROL XL) PO 03/27 0859 Nitroglycerin 0.4 MG Q5M PRN PRN 12/26 2115 AC (NITROSTAT) SL 03/26 211 Amiodarone HCl 450 MG ASDIR 12/26 2045 DC 12/26 (AMIODARONE HCL) IV 03/26 2044 2217 Dextrose/Water 250 ML (D5%W NON-DEHP) Hydralazine HCl 10 MG Q2H PRN PRN 12/26 1515 DC (APRESOLINE) IV 12/27 1414 Amiodarone HCl 450 MG X1ED STA 12/26 1254 DC 12/26 (AMIODARONE HCL) IV 01/06 0753 1325 Dextrose/Water 250 ML (D5%W NON-DEHP) Central Nervous System Agents Sig/Marie Start time Last Medication Dose Route Stop Time Status Admin Morphine Sulfate 4 MG Q4H PRN PRN 12/27 2199 AC 12/28 (morphine SULFATE) IV 01/01 2159 1104 Aspirin 81 MG DAILY 12/27 899 AC 12/28 (ASPIRIN) PO 03/27 0859 0824 Hydrocodone Bitart/ 1 TAB Q4H PRN PRN 12/26 2199 AC 12/28 Acetaminophen PO 12/31 2159 1202 (NORCO 10/325) Acetaminophen 650 MG Q4H PRN PRN 12/26 1515 DC (TYLENOL) PO 12/27 1414 Ketorolac 15 MG Q6H PRN PRN 12/26 1515 DC Tromethamine IV 12/27 1414 (TORADOL) Morphine Sulfate 4 MG Q4H PRN PRN 12/26 1515 DC 12/27 (morphine SULFATE) IV 12/27 1414 0934 Electrolytic, Caloric, And Mercedes Sig/Marie Start time Last Medication Dose Route Stop Time Status Admin Dextrose/Water 125 ML ASDIR PRN 12/26 1515 DC (DEXTROSE 10% IN IV 12/27 1414 WATER) Dextrose/Water 250 ML ASDIR PRN 12/26 1515 DC (DEXTROSE 10% IN IV 12/27 1414 WATER) Sodium Chloride 1,000 ML .Q10H 12/26 1515 DC 12/26 (SODIUM CHLORIDE IV 12/27 1414 1855 0.9%) Gastrointestinal Drugs Sig/Marie Start time Last Medication Dose Route Stop Time Status Admin Ondansetron HCl 4 MG Q6H PRN PRN 12/26 1515 DC 12/26 (ZOFRAN) IV 12/27 1414 1911 Hormones And Synthetic Substit Sig/Marie Start time Last Medication Dose Route Stop Time Status Admin Insulin Human Lispro 0 AC HS 12/27 2100 CAN (HUMALOG) SUBQ 03/27 205 Insulin Human Lispro 0 AC HS 12/27 1745 AC 12/28 (HUMALOG) SUBQ 03/27 2059 0736 Glucagon 1 MG DAILY PRN PRN 12/27 1730 AC (GLUCAGON) IM 03/27 1729 Insulin Human Lispro 0 AC HS 12/26 1630 DC (HUMALOG) SUBQ 12/27 1414 Glucagon 1 MG ASDIR PRN 12/26 1515 DC (GLUCAGON) IM 12/27 1414 Skin And Mucous Membrane Agent Sig/Maire Start time Last Medication Dose Route Stop Time Status Admin Mupirocin 1 APPLIC BID 12/27 1156 AC 12/28 (BACTROBAN 2% 22 GM NASAL 12/31 2101 0823 OINTMENT) Allergies:Coded Allergies:No Known Allergies (03/18/23) 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 Skin:Denies: abrasion, bruising, contusion. Allergy/Immun:Denies: allergic reaction, anaphylaxis, hives. ENT:Denies: ear drainage, earache, mouth pain. Respiratory:Denies: DWYER (dyspnea on exertion), SOB. Cardiovascular:Reports: chest pain. Denies: palpitations. GI:Denies: abdominal pain, nausea, vomiting. Musculoskeletal:Denies: arthritis, extremity pain. Heme:Denies: adenopathy, bleeding, bruising. Endocrine:Denies: cold intolerance, heat intolerance, polydipsia. Neuro:Denies: confusion, dizziness, seizure, syncope. All systems rev neg: except as marked Objective Physical ExamVS/I O:Last Documented: Result Date Time Pulse Ox 100 12/28 1100 B/P 136/71 12/28 1100 B/P Mean 98 12/28 1100 Pulse 53 12/28 1100 Resp 14 12/28 1100 Temp 36.5 12/28 0800 O2 Delivery Room air 12/28 0400 24 hour I O ending at 0700: 12/28 0700 12/27 1900 Intake Total 500 1090.00 Output Total Balance 500 1090.00 Intake, IV 200.00 Intake, Oral 500 890 Number 0 Bowel Movements Number Voids 2 4 PATIENT WEIGHT: Weight (lb): Weight (oz): Weight (kg): 84.091 General appearance: alert, awake, orientedHEENT: anicteric, mucosal membranes moist, pupils reactive to lightNeck: full range of motion, non-tenderCardiovascular: normal heart sounds, regular rate rhythmRespiratory: clear to auscultation, symmetric expansionAbdomen: soft, non-tenderGenitourinary: no bladder distention, no flank pain, no urinary catheterExtremities: dry, moves allMusculoskeletal: full range of motion, painless range of motionNeuro/PLASTICS 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, oriented X 3Skin: dry, intactPsychiatry: normal affect, normal mood ResultsFindings/Data:Laboratory Tests 12/28 12/28 12/28 12/27 12/27 1119 0714 0359 2003 1739Chemistry Sodium (134 - 147 mEq/L) 137 Potassium (3.4 - 5.0 mEq/L) 4.4 Chloride (100 - 108 mEq/L) 108 Carbon Dioxide (21 - 33 mEq/l) 22 Anion Gap (0 - 20) 11 BUN (7 - 25 mg/dL) 20 Creatinine (0.6 - 1.3 mg/dL) 1.0 Glomerular Filtr Rate (90 - 95) 89.4 L Glucose (77 - 141 mg/dL) 198 H POC Glucose (70 - 110 MG/DL) 140 H 203 H 178 H Calcium (8.0 - 10.5 mg/dL) 8.7 Ionized Calcium Zina (1.09 - 1.30 1.14MMOL/L) Phosphorus (2.5 - 4.9 MG/DL) 3.9 Magnesium (1.6 - 2.6 mg/dL) 2.21 2.29 12/27 12/27 1739 1645 Chemistry Sodium (134 - 147 mEq/L) 139 Potassium (3.4 - 5.0 mEq/L) 4.3 Chloride (100 - 108 mEq/L) 109 H Carbon Dioxide (21 - 33 mEq/l) 25 Anion Gap (0 - 20) 9 BUN (7 - 25 mg/dL) 18 Creatinine (0.6 - 1.3 mg/dL) 1.0 Glomerular Filtr Rate (90 - 95) 89.4 L Glucose (77 - 141 mg/dL) 246 H POC Glucose (70 - 110 MG/DL) 200 H Calcium (8.0 - 10.5 mg/dL) 8.5 Laboratory Tests 12/28 0359 Hematology WBC (4.5 - 11.0 x10 3/uL) 9.3 RBC (4.00 - 5.60 x10 6/uL) 5.62 H Hgb (12.5 - 16.9 g/dL) 16.2 Hct (37.5 - 50.7 %) 48.1 MCV (81.0 - 99.0 fL) 85.6 MCH (27.0 - 33.0 pg) 28.8 MCHC (33.0 - 37.0 g/dL) 33.7 RDW (11.5 - 14.5 %) 13.3 Plt Count (150 - 400 x10 3/uL) 205 MPV (7.0 - 9.0 fL) 10.9 H Neut % (Auto) (56.0 - 77.0 %) 57.3 Lymph % (Auto) (14.0 - 32.0 %) 27.5 Marion % (Auto) (4.8 - 9.0 %) 7.7 Eos % (Auto) (0.3 - 3.7 %) 5.7 H Baso % (Auto) (0.0 - 2.0 %) 1.0 Neut # (Auto) (2.0 - 7.6 x10 3/uL) 5.33 Lymph # (Auto) (1.0 - 3.8 x10 3/uL) 2.55 Marion # (Auto) (0.1 - 0.8 x10 3/uL) 0.71 Eos # (Auto) (0.0 - 0.2 x10 3/uL) 0.53 H Baso # (Auto) (0.0 - 0.2 x10 3/uL) 0.09 Abs Immat Gran (auto) (0.00 - 0.03 x10 3/uL) 0.07 H Immature Gran % (0.0 - 2.0 %) 0.8 Nucleated RBC % (0 - 0 %) 0.0 Nucleated RBCs # (Man) (0.0 - 0.1 x10 3/uL) 0.00 Results: labs reviewed, vital signs reviewed, vital signs stable, rhythm personally rev'd, current med profile rev'd Diagnosis, Assessment PlanFree Text A P:This is a 53-year-old gentleman with past medical history of coronary artery disease status post previous PCI in the past, hypertension, diabetes, hyperlipidemia, smoker 1 ppd/40 years, and chronic pain who presented to [facility] with complaints of life vest alarming and V-tach. Patient denies any shocks. He was started on an amiodarone drip and transferred to [facility] for further evaluation. 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 He was taken to the operating room where during the intraoperative ANAND there is some suspicion for thrombus, after talking with the patient's wool broker we decided to cancel surgery due to the increase risk of thromboembolic event. Cardiac CT was done, and patient was started on eliquis and discharged home with life vest with a plan for CABG 2-3 months once LV thrombus resolved. CV surgery was consulted for further evaluation. ECHO 1. Left ventricle: The cavity size is mildly dilated. Wall thickness is mildly increased. Systolic function is severely reduced. The estimated ejection fraction is 25-29%. Akinesis of the apical wall. Akinesis of the anterior wall. Hypokinesis of the lateral wall. Grade I diastolic dysfunction.2. Right ventricle: The RV pressure during systole is 31 mm Hg.3. Left atrium: The atrium is moderately dilated.4. Mitral valve: There is mild regurgitation.5. Tricuspid valve: There is mild regurgitation.6. Pericardium, extracardiac: A small pericardial effusion is identified anterior to the heart. Patient in stable conditionEP and cardiology followingWill discuss with team regarding timing of surgeryFurther recommendations to follow. at 0941 RPT #:[id number] OF REPORTNOAspyddkfmvzk9983-27-80B10:30:00G.PDOC2 [id number] for patient dplcANBMFNQBUTGONW6056-55-41P14:42:10 [facility] 2023-12-29 12:29:00 [id number]+IWD5YPvcjzpnwHd HY4HlPd42ljErCzWmvpqisnwJPD8612-70-13Y47:29:00 [facility] CentralCard[facility] Progress NoteREPORT#:[id number] REPORT STATUS: SignedREPORT INITIALIZATION DATE:12/29/23 TIME: 122 PATIENT: CHARAN RESTREPO UNIT #: [id number]#: [id number] [address] [birth year] AGE: 53 SEX: M ATTEND: Marycruz Villalba AUTHOR: Himanshu Lebron MDREPT SERVICE DT/TIME: 12/29/23 1229* ALL edits or amendments must be made on the electronic/computer document * SubjectiveChief complaint:CP, VT, LIfe Vest alarmingHPI:This is a 53-year-old male with past medical history of coronary artery disease 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 Patient was admitted to [facility] a month ago for CABG was found to have LV thrombus and was discharged home on Eliquis with a LifeVestwith a plan to do CABG in 2 to 3 months from yesterday LV thrombus resolved. Patient said that has been having chest pain almost on a daily basis since nothing changed and that since. However he said over the last 2 days he has been hearing the LifeVest alarming he end up going to [facility] found to have nonsustained VT frequent episodes and was started on amiodarone drip and transferred to our facility. Patient denies any LifeVest shocks, dizziness or loss of consciousness Objective GeneralVS/I O:24 hour I O ending at 0700: 12/28 0700 12/27 1900 Intake Total 500 1090.00 Output Total Balance 500 1090.00 Intake, IV 200.00 Intake, Oral 500 890 Number 0 Bowel Movements Number Voids 2 4 Vital Signs: Date Time Temp Pulse Resp B/P B/P Pulse O2 O2 Flow FiO2 Mean Ox Delivery Rate 12/28 1100 53 14 136/71 98 100 03/ 1000 54 11 145/68 98 98 03/09 0900 59 13 132/70 94 96 03/09 0800 97.7 / 0800 56 14 139/72 98 94 03/09 0700 56 13 135/75 99 98 03/09 0600 57 11 130/74 97 96 03/09 0500 59 14 129/71 93 96 03/09 0400 97.8 Room air 03/ 0400 63 22 140/76 101 100 03/09 0300 58 15 134/75 99 97 03/ 0201 60 18 98/54 73 95 03/09 0100 57 12 124/60 86 96 03/09 0000 98.4 Room air 03/09 0000 62 15 134/68 94 98 03/08 2213 98 Room air 03/08 2203 75 37 144/85 109 99 03/08 2100 58 13 125/66 90 98 03/08 2000 98.0 Room air 03/08 2000 59 15 131/76 98 98 03/08 1901 57 13 106/52 75 96 03/08 1800 66 18 146/76 104 99 03/08 1700 74 26 143/75 102 98 03/08 1600 97.8 03/08 1600 62 34 128/69 92 99 03/08 1500 61 12 128/68 91 96 03/08 1400 69 16 143/83 108 96 03/08 1300 56 12 128/68 92 98 PATIENT WEIGHT: Weight (lb): Weight (oz): Weight (kg): 84.091 Medications:Active Meds + DC'd Last 24 HrsAmiodarone HCl (AMIODARONE HCL) 400 MG BID 9A 5P PO (CKD) Valsartan (DIOVAN) 80 MG DAILY PO Morphine Sulfate (morphine SULFATE) 4 MG Q4H PRN PRN IV Atorvastatin Calcium (LIPITOR) 40 MG BEDTIME PO Insulin Human Lispro (HUMALOG) 0 AC HS SUBQ (CAN) Insulin Human Lispro (HUMALOG) 0 AC HS SUBQ Glucagon (GLUCAGON) 1 MG DAILY PRN PRN IM Mupirocin (BACTROBAN 2% 22 GM OINTMENT) 1 APPLIC BID NASAL Apixaban (ELIQUIS 5MG TABLET) 5 MG BID PO Aspirin (ASPIRIN) 81 MG DAILY PO Metoprolol Succinate (TOPROL XL) 25 MG DAILY PO Hydrocodone Bitart/Acetaminophen (NORCO 10/325) 1 TAB Q4H PRN PRN PO Nitroglycerin (NITROSTAT) 0.4 MG Q5M PRN PRN SL Amiodarone HCl (AMIODARONE HCL) 450 MG ASDIR IV (DC) Dextrose/Water (D5%W NON-DEHP) 250 MLInsulin Human Lispro (HUMALOG) 0 AC HS SUBQ (DC) Acetaminophen (TYLENOL) 650 MG Q4H PRN PRN PO (DC) Dextrose/Water (DEXTROSE 10% IN WATER) 125 ML ASDIR PRN IV (DC) Dextrose/Water (DEXTROSE 10% IN WATER) 250 ML ASDIR PRN IV (DC) Glucagon (GLUCAGON) 1 MG ASDIR PRN IM (DC) Hydralazine HCl (APRESOLINE) 10 MG Q2H PRN PRN IV (DC) Ketorolac Tromethamine (TORADOL) 15 MG Q6H PRN PRN IV (DC) Morphine Sulfate (morphine SULFATE) 4 MG Q4H PRN PRN IV (DC) Ondansetron HCl (ZOFRAN) 4 MG Q6H PRN PRN IV (DC) Sodium Chloride (SODIUM CHLORIDE 0.9%) 1,000 ML .Q10H IV (DC) Amiodarone HCl (AMIODARONE HCL) 450 MG X1ED STA IV (DC) Dextrose/Water (D5%W NON-DEHP) 250 ML Physical ExamGeneral appearance: sleeping comfortablyNeck: full range of motion, non-tender, normal thyroid, supple/no meningismus, no bruit/NL carotids, no JVD, no lymphadenopathy, no masses or swellingCardiovascular: CV assessment: regular rate and rhythmRespiratory: clear to auscultation, no distressAbdomen: non-tender, normal bowel sounds, no distention, no guarding, no mass/organomegaly, no pulsatile mass, no reboundUpper extremity: UE assessment: normal capillary refill, no edemaLower extremity: LE assessment: normal capillary refill, no edema ResultsFindings/Data:Laboratory Tests 12/28 12/28 12/28 12/27 12/27 1119 0714 9 2003 1739Chemistry Sodium (134 - 147 mEq/L) 137 Potassium (3.4 - 5.0 mEq/L) 4.4 Chloride (100 - 108 mEq/L) 108 Carbon Dioxide (21 - 33 mEq/l) 22 Anion Gap (0 - 20) 11 BUN (7 - 25 mg/dL) 20 Creatinine (0.6 - 1.3 mg/dL) 1.0 Glomerular Filtr Rate (90 - 95) 89.4 L Glucose (77 - 141 mg/dL) 198 H POC Glucose (70 - 110 MG/DL) 140 H 203 H 178 H Calcium (8.0 - 10.5 mg/dL) 8.7 Ionized Calcium Zina (1.09 - 1.30 1.14MMOL/L) Phosphorus (2.5 - 4.9 MG/DL) 3.9 Magnesium (1.6 - 2.6 mg/dL) 2.21 2.29 12/27 12/27 1739 1645 Chemistry Sodium (134 - 147 mEq/L) 139 Potassium (3.4 - 5.0 mEq/L) 4.3 Chloride (100 - 108 mEq/L) 109 H Carbon Dioxide (21 - 33 mEq/l) 25 Anion Gap (0 - 20) 9 BUN (7 - 25 mg/dL) 18 Creatinine (0.6 - 1.3 mg/dL) 1.0 Glomerular Filtr Rate (90 - 95) 89.4 L Glucose (77 - 141 mg/dL) 246 H POC Glucose (70 - 110 MG/DL) 200 H Calcium (8.0 - 10.5 mg/dL) 8.5 Laboratory Tests 12/28 0359 Hematology WBC (4.5 - 11.0 x10 3/uL) 9.3 RBC (4.00 - 5.60 x10 6/uL) 5.62 H Hgb (12.5 - 16.9 g/dL) 16.2 Hct (37.5 - 50.7 %) 48.1 MCV (81.0 - 99.0 fL) 85.6 MCH (27.0 - 33.0 pg) 28.8 MCHC (33.0 - 37.0 g/dL) 33.7 RDW (11.5 - 14.5 %) 13.3 Plt Count (150 - 400 x10 3/uL) 205 MPV (7.0 - 9.0 fL) 10.9 H Neut % (Auto) (56.0 - 77.0 %) 57.3 Lymph % (Auto) (14.0 - 32.0 %) 27.5 Marion % (Auto) (4.8 - 9.0 %) 7.7 Eos % (Auto) (0.3 - 3.7 %) 5.7 H Baso % (Auto) (0.0 - 2.0 %) 1.0 Neut # (Auto) (2.0 - 7.6 x10 3/uL) 5.33 Lymph # (Auto) (1.0 - 3.8 x10 3/uL) 2.55 Marion # (Auto) (0.1 - 0.8 x10 3/uL) 0.71 Eos # (Auto) (0.0 - 0.2 x10 3/uL) 0.53 H Baso # (Auto) (0.0 - 0.2 x10 3/uL) 0.09 Abs Immat Gran (auto) (0.00 - 0.03 x10 3/uL) 0.07 H Immature Gran % (0.0 - 2.0 %) 0.8 Nucleated RBC % (0 - 0 %) 0.0 Nucleated RBCs # (Man) (0.0 - 0.1 x10 3/uL) 0.00 Laboratory Tests 12/28 12/27 0359 1739 Chemistry Magnesium (1.6 - 2.6 mg/dL) 2.21 2.29 Diagnosis, Assessment PlanConsultants: cardiology, cardiovascular surgery, 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 Coronary artery disease: Patient has chronic chest pain unclear if it is dueto his underlying coronary artery disease versus atypical chest pain due to the chronicity. 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 Echocardiogram done and showed no LV thrombus will re discuss with CT surgery doing CABG now. Continue Eliquis, aspirin, statin and beta-luís. 2. Ventricular tachycardia unclear if it was sustained however patient has started on amnio drip at outside facility and transferred to our hospital. Currently the patient has sinus rhythm with no further tachycardia. Will consult EP. Patient has a LifeVest on. 3. Severe cardiomyopathy: Likely ischemic, CABG evaluation as above. Continue metoprolol succinate, and valsartan and Farxiga. If blood pressure remains stable, I will add Aldactone 4. Diabetes: per Primary team, Will start Farxiga 5. Hyperlipidemia continue statin PER CTS WHETHER TO DO CT OF CHEST AND THEN CABG at 1230 [facility] #:[id number] OF REPORTPRProgress [id number]:29:00G.[id number] able for patient hxnmNWTIDOHOTJJUAL6160-50-25N23:31:11 [facility] 2023-12-29 12:21:00 [id number] Ix0pYwHmmsX1z2eiUIgusB9P/DF7/ Kt8fHdVNXmsQQqBEVvvuGUptEzM9352-67-34L79:21:[address] [address] PATIENT NAME: CHARAN RESTREPO ADMIT DATE: 11/27/23ACCOUNT NO: [id number] ROOM NO: [facility] AGE: 53 REPORT TYPE: OPERATIVE REPORT SEX: M ADMITTING PHYSICIAN:Papo Mayfield MD ATTENDING PHYSICIAN:Papo Mayfield MD OPERATION DATE: 11/30/2023 DATE OF PROCEDURE: 11/30/2023. Mr. Farrar was taken to the operating room for coronary artery bypass graftsurgery, but intraoperative ANAND showed that the patient has a clot in the left ventricle. The case was then discussed with the patient's wool broker and a decision was made not to proceed with coronary artery bypass graft surgery. The procedure was abandoned and the patient was extubated in the operating room and moved to intensive care unit in stable condition. Dictated By: Rafi Mayfield MD Date Dictated: 12/29/2023 12:21:13Date Transcribed: 12/29/2023 17:42:55/[facility]/AHMJob #: [id number] ID: [id number] and Edited by Papo Mayfield MD On 01/05/24 12:42:17 PM at 1243 PATIENT NAME: CHARAN RESTREPO lfsneg9743-40-81Z59:42:00G.[id number] lable for patient vctwPMDETZUQXKEDKY4286-07-43B72:45:52 [facility] 2023-12-29 01:19:00 [id number] fOhSRWlN+iU7rNBBBbEuRvi8n3a2K T/4cz3SsWIHOP38AOOOjr0KM5zU5715-74-50U13:19:87383 9-0005 [place] [id number] PATIENT NAME: CHARAN RESTREPO ADMIT DATE: 12/27/23ACCOUNT NO: [id number] ROOM NO: 3308 AGE: 53 REPORT TYPE: eECHOCARDIOGRAM REPORT SEX: M ADMITTING PHYSICIAN:Jac Marsh MD ATTENDING PHYSICIAN:Marycruz Villalba MD *[address] [address]Krlty: [phone]: [phone] Echocardiogram Patient: Anna Restrepoudy Date: 4BP: 118 / 59URN: [id number]: [id number]#: [id number]: 1970Age: 53Gender: MHeight: 70 in / 177.8 cmWeight: 185 lb / 83.9 kgBMI/BSA: 26.5 kg/m 2 / 2.05 m 2*Ordering Physician: * Alex Ley *Interpreting Physician: * Merlene Rutherford MD*Clinical Research Nurse Coordinator: * Rebeka Wright Indications: Chest Pain, unspecified. V TACH. Study data: Transthoracic echocardiogram. Procedure: A transthoracicechocardiogram was performed. Image quality was adequate. Intravenous contrast(Definity) was administered. Complete 2D, complete spectral Doppler, andcolor Doppler. Location: Bedside. Patient room number: 3308. Heart rate:56 bpm. Findings Left ventricle: The cavity size is mildly dilated. Wall thickness is mildlyincreased. Systolic function is severely reduced. The estimated ejectionfraction is 25-29%. Regional wall motion abnormalities: Akinesis of theapical wall. Akinesis of the anterior wall. Hypokinesis of the lateral wall.PATIENT NAME: CHARAN RESTREPO Grade I diastolic dysfunction.Right ventricle: The cavity size is normal. Systolic function is normal.Left atrium: The atrium is moderately dilated.Right atrium: The atrium is normal in size.Aorta:Aortic root: The root is normal-sized.Aortic valve: The valve is structurally normal. The valve is trileaflet. Cuspseparation is normal. Velocity is within the normal range. There is noevidence of stenosis. There is no regurgitation.Mitral valve: The valve is structurally normal. There is no evidence ofstenosis. There is mild regurgitation.Tricuspid valve: The valve is structurally normal. There is mildregurgitation.Pulmonic valve: The valve is structurally normal. There is no evidence ofstenosis. There is no significant regurgitation.Pericardium: A small pericardial effusion is identified anterior to theheart. Measurements Left ventricle Value Ref 11/28/2023 GLS, 2D -6 % --------- AFSANEH, LAX 6.2 cm 4.2 - 5.8 5.9 ESD, LAX 5.2 cm 2.5 - 4.0 5.3 FS, LAX 16 % 25 - 43 9 AFSANEH major ax, A2C 10.1 cm --------- IVS, ED 1.3 cm 0.6 - 1.0 1.4 PW, ED 1.1 cm 0.6 - 1.0 1.3 IVS/PW, ED 1.11 --------- 1.13 EF 33 % 52 - 72 20 E', lat norberto, TDI 3.4 cm/sec >=10.0 E/e', lat norberto, TDI 23 <=13 E', med norberto, TDI 5.2 cm/sec >=7.0 E/e', med norberto, TDI 14 --------- E', avg, TDI 4.3 cm/sec --------- E/e', avg, TDI 18 <=14 LVOT Value Ref 11/28/2023 Diam, S 2.21 cm --------- Area 3.8 cm 2 --------- Peak joyce, S 0.88 m/sec --------- Mean joyce, S 0.48 m/sec --------- VTI, S 17.1 cm --------- Peak grad, S 3 mm Hg --------- Mean grad, S 1 mm Hg --------- SV 65 ml --------- Qs 3.64 L/min --------- Qs/bsa 1.8 L/(min-m 2) --------- SV/bsa 32 ml/m 2 --------- Right ventricle Value Ref 11/28/2023 AFSANEH, LAX 3.3 cm --------- Pressure, S 31 mm Hg --------- PATIENT NAME: CHARAN RESTREPO RVOT Value Ref 11/28/2023 Peak v, S 0.64 m/sec --------- Peak grad, S 2 mm Hg --------- Left atrium Value Ref 11/28/2023 Vol/bsa, S 40 ml/m 2 Vol/bsa, ES, 1-p A4C 43 ml/m 2 12 - 37 Vol, ES, 2-p 81 ml --------- Vol/bsa, ES, 2-p 40 ml/m 2 Vol/bsa, ES, A/L 43 ml/m 2 AP dim, ES MM 4.2 cm 3.0 - 4.0 LA/Ao root ratio, MM 1.23 --------- Aortic valve Value Ref 11/28/2023 Leaflet sep, MM 2.34 cm --------- Peak v, S 1.2 m/sec --------- Mean v, S 0.7 m/sec --------- VTI, S 23.4 cm --------- Mean grad, S 2 mm Hg --------- Peak grad, S 5.8 mm Hg --------- LVOT/AV, VTI ratio 0.73 --------- SUMEET, VTI 2.80 cm 2 --------- LVOT/AV, Vpeak ratio 0.73 --------- SMUEET, Vmax 2.80 cm 2 --------- Mitral valve Value Ref 11/28/2023 E-septal separation 1.9 cm --------- E-F slope 0.07 m/sec --------- Peak E 0.76 m/sec --------- Peak A 0.88 m/sec --------- Decel time 171 ms --------- PHT 54 ms --------- Peak grad, D 2.3 mm Hg --------- Peak E/A ratio 0.86 --------- MVA, PHT 4.1 cm 2 --------- Tricuspid valve Value Ref 11/28/2023 TR peak v 2.3 m/sec <=2.8 Peak RV-RA grad, S 21 mm Hg --------- Aortic root Value Ref 11/28/2023 Root diam, ED MM 3.4 cm --------- Pulmonary artery Value Ref 11/28/2023 Pressure, S 28.9 mm Hg --------- Systemic veins Value Ref 11/28/2023 Estimated CVP 10 mm Hg --------- Conclusions Summary:PATIENT NAME: CHARAN RESTREPO 1. Left ventricle: The cavity size is mildly dilated. Wall thickness is mildly increased. Systolic function is severely reduced. The estimated ejection fraction is 25-29%. Akinesis of the apical wall. Akinesis of the anterior wall. Hypokinesis of the lateral wall. Grade I diastolic dysfunction.2. Right ventricle: The RV pressure during systole is 31 mm Hg.3. Left atrium: The atrium is moderately dilated.4. Mitral valve: There is mild regurgitation.5. Tricuspid valve: There is mild regurgitation.6. Pericardium, extracardiac: A small pericardial effusion is identified anterior to the heart.Electronically signed by Merlene Rutherford MD12/29/2023 01:19 at 0119 PATIENT NAME: CHARAN RESTREPO :19:0 0G.[id number] for patient fjhnRMELVTYDLPJQOB2629-81-83U07:20:11 [facility] 2023-12-28 20:46:00 [id number] nXroibjZ/tiqU437IkdIRW+99lXsw 8+KTaYAooX/Ng9iagesB5eWUTtL3476-37-11L74:46:00 [facility] ([facility]ITALCardiology ConsultationREPORT#:[id number] REPORT STATUS: SignedREPORT INITIALIZATION DATE:12/28/23 TIME: 2045 PATIENT: CHARAN RESTREPO UNIT #: [id number]#: [id number] [address]DOB: [birth year] AGE: 53 SEX: M ATTEND: Marycruz Villalba AUTHOR: Merlene Rutherford MDREPT SERVICE DT/TIME: 12/28/232045* ALL edits or amendments must be made on the electronic/computer document * History of Present Illness HPIReason for consult:CP VTChikevin complaint:CP, VT, LIfe Vest alarmingPCP:PCP: Jesusita Osuna MD HPI:This is a 53-year-old male with past medical history of coronary artery disease 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 Patient was admitted to [place] a month ago for CABG was found to have LV thrombus and was discharged home on Eliquis with a LifeVestwith a plan to do CABG in 2 to 3 months from yesterday LV thrombus resolved. Patient said that has been having chest pain almost on a daily basis since nothing changed and that since. However he said over the last 2 days he has been hearing the LifeVest alarming he end up going to [facility] found to have nonsustained VT frequent episodes and was started on amiodarone drip and transferred to our facility. Patient denies any LifeVest shocks, dizziness or loss of consciousness History - Adult longitudinalPast medical history:Reports: Coronary artery disease, Diabetes mellitus. Past surgical history:Reports: (Left Tib, Fib). Family history:Denies: CAD < 40 yrs old. Alcohol use: Alcohol use (social)Drug use: Denies recreational drugsSmoking status for patients 13 years old or older: Current every day smokerDate last smoked: 12/27/23Packs per day: 1Years smoked: 35Pack years: 0Allergies:Coded Allergies:No Known Allergies (03/18/23) Ambulatory status: Independent Review of SystemsAdditional notes:As per HPI otherwise -12 system point Objective GeneralVS/I O:Vital Signs: Date Time Temp Pulse Resp B/P B/P Pulse O2 O2 Flow FiO2 Mean Ox Delivery Rate 12/27 1901 57 13 106/52 75 96 12/27 1800 66 18 146/76 104 99 12/27 1700 74 26 143/75 102 98 12/27 1600 97.8 03/08 1600 62 34 128/69 92 99 03/08 1500 61 12 128/68 91 96 03/08 1400 69 16 143/83 108 96 03/08 1300 56 12 128/68 92 98 03/08 1200 97.8 03/08 1200 58 13 114/59 80 100 03/08 1100 70 36 123/83 99 100 03/08 1000 57 12 117/70 89 97 03/08 0901 51 13 107/54 78 96 03/08 0800 97.6 03/08 0800 59 13 118/63 84 97 03/08 0700 57 12 125/64 87 97 03/08 0600 56 11 118/59 83 95 03/08 0500 61 14 126/70 91 95 03/08 0400 98.0 03/08 0400 68 26 95 03/08 0300 65 13 117/61 83 92 03/08 0201 61 10 80/45 60 94 03/08 0100 62 13 106/56 74 94 03/08 0000 97.8 03/08 0000 69 12 128/66 90 96 03/07 2302 73 25 110/61 67 97 03/07 2200 66 14 96 03/07 2130 66 16 133/74 98 95 03/07 2115 69 14 138/73 99 95 03/07 2100 72 18 132/65 92 97 03/07 5 97.4 24 hour I O ending at 0700: 03/08 0700 03/07 1900 Intake Total 916.00 Output Total Balance 916.00 Intake, IV 436.00 Intake, Oral 480 Number Voids 3 Patient 84.091 kg Weight Weight Stated/Reported Measurement Method PATIENT WEIGHT: Weight (lb): Weight (oz): Weight (kg): 84.091 Medications:Active Meds + DC'd Last 24 HrsAtorvastatin Calcium (LIPITOR) 40 MG BEDTIME PO Insulin Glargine (Semglee) 20 UNIT BEDTIME SUBQ (CAN) Insulin Human Lispro (HUMALOG) 0 AC HS SUBQ (CAN) Insulin Human Lispro (HUMALOG) 0 AC HS SUBQ Glucagon (GLUCAGON) 1 MG DAILY PRN PRN IM Mupirocin (BACTROBAN 2% 22 GM OINTMENT) 1 APPLIC BID NASAL Magnesium Sulfate/Dextrose (MAGNESIUM SULFATE 1GM/D5W 100ML) 100 ML ONCE ONE IV (DC) Apixaban (ELIQUIS 5MG TABLET) 5 MG BID PO Aspirin (ASPIRIN) 81 MG DAILY PO Magnesium Sulfate/Dextrose (MAGNESIUM SULFATE 1GM/D5W 100ML) 100 ML ONCE ONE IV (DC) Metoprolol Succinate (TOPROL XL) 25 MG DAILY PO Potassium Chloride (POTASSIUM CHLORIDE 20MEQ TAB.ER) 40 MEQ ONCE ONE PO (DC) Perflutren Lipid Microsphere (Definity) 0 .STK-MED ONE IV (DC) Heparin Sodium/Sodium Chloride (HEPARIN 1,000 UNITS/NS 500ML) 500 ML .STK-MED ONE IV (DC) Hydrocodone Bitart/Acetaminophen (NORCO 10/325) 1 TAB Q4H PRN PRN PO Magnesium Sulfate/Dextrose (MAGNESIUM SULFATE 1GM/D5W 100ML) 100 ML ONCE ONE IV (DC) Nitroglycerin (NITROSTAT) 0.4 MG Q5M PRN PRN SL Amiodarone HCl (AMIODARONE HCL) 450 MG ASDIR IV (CKD) Dextrose/Water (D5%W NON-DEHP) 250 MLInsulin Human Lispro (HUMALOG) 0 AC HS SUBQ (DC) Acetaminophen (TYLENOL) 650 MG Q4H PRN PRN PO (DC) Dextrose/Water (DEXTROSE 10% IN WATER) 125 ML ASDIR PRN IV (DC) Dextrose/Water (DEXTROSE 10% IN WATER) 250 ML ASDIR PRN IV (DC) Glucagon (GLUCAGON) 1 MG ASDIR PRN IM (DC) Hydralazine HCl (APRESOLINE) 10 MG Q2H PRN PRN IV (DC) Ketorolac Tromethamine (TORADOL) 15 MG Q6H PRN PRN IV (DC) Morphine Sulfate (morphine SULFATE) 4 MG Q4H PRN PRN IV (DC) Ondansetron HCl (ZOFRAN) 4 MG Q6H PRN PRN IV (DC) Sodium Chloride (SODIUM CHLORIDE 0.9%) 1,000 ML .Q10H IV (DC) Amiodarone HCl (AMIODARONE HCL) 450 MG X1ED STA IV Dextrose/Water (D5%W NON-DEHP) 250 ML General appearance: alert, awake, orientedHead/Eyes: PERRLAENT: normal noseNeck: no JVDCardiovascular: CV assessment: regular rate and rhythm, normal heart soundsRespiratory: clear to auscultation, no distressAbdomen: softLower extremity: LE assessment: no cyanosis, no edemaNeuro/PLASTICS 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, oriented X 3, normal speechSkin: dry, intactPsychiatry: normal affect, normal judgment/insight, normal mood, no hallucinations ResultsFindings/Data:Laboratory Tests 12/27 1739 1739 1645 0732 Chemistry Sodium (134 - 147 mEq/L) 139 Potassium (3.4 - 5.0 mEq/L) 4.3 Chloride (100 - 108 mEq/L) 109 H Carbon Dioxide (21 - 33 mEq/l) 25 Anion Gap (0 - 20) 9 BUN (7 - 25 mg/dL) 18 Creatinine (0.6 - 1.3 mg/dL) 1.0 Glomerular Filtr Rate (90 - 95) 89.4 L Glucose (77 - 141 mg/dL) 246 H POC Glucose (70 - 110 MG/DL) 178 H 200 H 184 H Calcium (8.0 - 10.5 mg/dL) 8.5 Magnesium (1.6 - 2.6 mg/dL) 2.29 12/27 12/26 0419 2121 Chemistry Sodium (134 - 147 mEq/L) 142 140 Potassium (3.4 - 5.0 mEq/L) 3.4 4.9 Chloride (100 - 108 mEq/L) 116 H 110 H Carbon Dioxide (21 - 33 mEq/l) 20 L 29 Anion Gap (0 - 20) 9 6 BUN (7 - 25 mg/dL) 12 13 Creatinine (0.6 - 1.3 mg/dL) 0.9 1.0 Glomerular Filtr Rate (90 - 95) 101.5 H 89.4 L Glucose (77 - 141 mg/dL) 216 H 235 H Calcium (8.0 - 10.5 mg/dL) 7.5 L 9.2 Ionized Calcium Zina (1.09 - 1.30 MMOL/L) 1.14 Phosphorus (2.5 - 4.9 MG/DL) 3.5 3.6 Magnesium (1.6 - 2.6 mg/dL) 1.80 1.97 Total Bilirubin (0.0 - 1.0 mg/dL) 0.70 AST (8 - 34 IUnit/L) 32 ALT (10 - 49 IUnit/L) 20 Total Alk Phosphatase (20 - 125 IUnit/L) 67 Total Protein (6.4 - 8.2 g/dL) 6.6 Albumin (3.4 - 5.0 g/dL) 3.90 Laboratory Tests 12/27 12/26 0420 2121 Hematology WBC (4.5 - 11.0 x10 3/uL) 9.5 9.9 RBC (4.00 - 5.60 x10 6/uL) 5.62 H 5.65 H Hgb (12.5 - 16.9 g/dL) 16.1 16.4 Hct (37.5 - 50.7 %) 49.3 49.0 MCV (81.0 - 99.0 fL) 87.7 86.7 MCH (27.0 - 33.0 pg) 28.6 29.0 MCHC (33.0 - 37.0 g/dL) 32.7 L 33.5 RDW (11.5 - 14.5 %) 13.5 13.6 Plt Count (150 - 400 x10 3/uL) 184 202 MPV (7.0 - 9.0 fL) 10.5 H 10.4 H Neut % (Auto) (56.0 - 77.0 %) 65.0 69.2 Lymph % (Auto) (14.0 - 32.0 %) 23.0 20.0 Marion % (Auto) (4.8 - 9.0 %) 6.3 5.6 Eos % (Auto) (0.3 - 3.7 %) 4.4 H 3.8 H Baso % (Auto) (0.0 - 2.0 %) 0.8 0.9 Neut # (Auto) (2.0 - 7.6 x10 3/uL) 6.17 6.86 Lymph # (Auto) (1.0 - 3.8 x10 3/uL) 2.19 1.99 Marion # (Auto) (0.1 - 0.8 x10 3/uL) 0.60 0.56 Eos # (Auto) (0.0 - 0.2 x10 3/uL) 0.42 H 0.38 H Baso # (Auto) (0.0 - 0.2 x10 3/uL) 0.08 0.09 Abs Immat Gran (auto) (0.00 - 0.03 x10 3/uL) 0.05 H 0.05 H Immature Gran % (0.0 - 2.0 %) 0.5 0.5 Nucleated RBC % (0 - 0 %) 0.0 0.0 Nucleated RBCs # (Man) (0.0 - 0.1 x10 3/uL) 0.00 0.00 Laboratory Tests 12/27 12/27 12/26 [id number] Chemistry Magnesium (1.6 - 2.6 mg/dL) 2.29 1.80 1.97 Diagnosis, Assessment Plan Free Text DxA P NotesFree Text DxA P Notes:1. Coronary artery disease: Patient has chronic chest pain unclear if it is dueto his underlying coronary artery disease versus atypical chest pain due to the chronicity. 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 Echocardiogram done and showed no LV thrombus will re discuss with CT surgery doing CABG now. Continue Eliquis, aspirin, statin and beta-luís. 2. Ventricular tachycardia unclear if it was sustained however patient has started on amnio drip at outside facility and transferred to our hospital. Currently the patient has sinus rhythm with no further tachycardia. Will consult EP. Patient has a LifeVest on. 3. Severe cardiomyopathy: Likely ischemic, CABG evaluation as above. Continue metoprolol succinate, and valsartan and Farxiga. If blood pressure remains stable, I will add Aldactone 4. Diabetes: per Primary team, Will start Farxiga 5. Hyperlipidemia continue statin at 0705 RPT #:[id number] OF REPORTDMEamobvlxigbs9518-09-86F78:46:00G.PDOC2 [id number] for patient jqawHHLDBEHWVJZZST1908-05-58U71:05:43 [facility] 2023-12-28 19:43:00 [id number]DS EWhoE+as4qFGLcKhSiAmXDmOUJm8161-24-89E82:43:00 [facility])Hospitalist Progress NoteREPORT#:[id number] REPORT STATUS: SignedREPORT INITIALIZATION DATE:12/28/23 TIME: 1942 PATIENT: CHARAN RESTREPO UNIT #: [id number]#: [id number] ROOM/BED: [facility] [place]5-1DOB: [birth year] AGE: 53 SEX: M ATTEND: Marycruz Villalba MDADM AUTHOR: Marycruz Villalba MDREPT SERVICE DT/TIME: 12/28/231942* ALL edits or amendments must be made on the electronic/computer document * SubjectiveChief complaint:no complaintstime seen 11 am Objective GeneralVS/I O:Vital Signs: Date Time Temp Pulse Resp B/P B/P Pulse O2 O2 Flow FiO2 Mean Ox Delivery Rate 03/08 1901 57 13 106/52 75 96 03/08 1800 66 18 146/76 104 99 03/08 1700 74 26 143/75 102 98 03/08 1600 97.8 03/08 1600 62 34 128/69 92 99 03/08 1500 61 12 128/68 91 96 03/08 1400 69 16 143/83 108 96 03/08 1300 56 12 128/68 92 98 03/08 1200 97.8 03/08 1200 58 13 114/59 80 100 03/08 1100 70 36 123/83 99 100 03/08 1000 57 12 117/70 89 97 03/08 0901 51 13 107/54 78 96 03/08 0800 97.6 03/08 0800 59 13 118/63 84 97 03/08 0700 57 12 125/64 87 97 03/08 0600 56 11 118/59 83 95 03/08 0500 61 14 126/70 91 95 03/08 0400 98.0 03/08 0400 68 26 95 03/08 0300 65 13 117/61 83 92 03/08 0201 61 10 80/45 60 94 03/08 0100 62 13 106/56 74 94 03/08 0000 97.8 03/08 0000 69 12 128/66 90 96 03/07 2302 73 25 110/61 67 97 03/07 2200 66 14 96 03/07 2130 66 16 133/74 98 95 03/07 2115 69 14 138/73 99 95 03/07 2100 72 18 132/65 92 97 03/07 2055 97.4 03/07 2045 67 16 133/67 94 97 03/07 2020 69 97 12/27 1999 67 13 124/66 89 94 24 hour I O ending at 0700: 12/27 0700 12/26 1900 Intake Total 916.00 Output Total Balance 916.00 Intake, IV 436.00 Intake, Oral 480 Number Voids 3 Patient 84.091 kg Weight Weight Stated/Reported Measurement Method PATIENT WEIGHT: Weight (lb): Weight (oz): Weight (kg): 84.091 Medications:Active Meds + DC'd Last 24 HrsAtorvastatin Calcium (LIPITOR) 40 MG BEDTIME PO Insulin Glargine (Semglee) 20 UNIT BEDTIME SUBQ (CAN) Insulin Human Lispro (HUMALOG) 0 AC HS SUBQ (CAN) Insulin Human Lispro (HUMALOG) 0 AC HS SUBQ Glucagon (GLUCAGON) 1 MG DAILY PRN PRN IM Mupirocin (BACTROBAN 2% 22 GM OINTMENT) 1 APPLIC BID NASAL Magnesium Sulfate/Dextrose (MAGNESIUM SULFATE 1GM/D5W 100ML) 100 ML ONCE ONE IV (DC) Apixaban (ELIQUIS 5MG TABLET) 5 MG BID PO Aspirin (ASPIRIN) 81 MG DAILY PO Magnesium Sulfate/Dextrose (MAGNESIUM SULFATE 1GM/D5W 100ML) 100 ML ONCE ONE IV (DC) Metoprolol Succinate (TOPROL XL) 25 MG DAILY PO Potassium Chloride (POTASSIUM CHLORIDE 20MEQ TAB.ER) 40 MEQ ONCE ONE PO (DC) Perflutren Lipid Microsphere (Definity) 0 .STK-MED ONE IV (DC) Heparin Sodium/Sodium Chloride (HEPARIN 1,000 UNITS/NS 500ML) 500 ML .STK-MED ONE IV (DC) Hydrocodone Bitart/Acetaminophen (NORCO 10/325) 1 TAB Q4H PRN PRN PO Magnesium Sulfate/Dextrose (MAGNESIUM SULFATE 1GM/D5W 100ML) 100 ML ONCE ONE IV (DC) Nitroglycerin (NITROSTAT) 0.4 MG Q5M PRN PRN SL Amiodarone HCl (AMIODARONE HCL) 450 MG ASDIR IV (CKD) Dextrose/Water (D5%W NON-DEHP) 250 MLInsulin Human Lispro (HUMALOG) 0 AC HS SUBQ (DC) Acetaminophen (TYLENOL) 650 MG Q4H PRN PRN PO (DC) Dextrose/Water (DEXTROSE 10% IN WATER) 125 ML ASDIR PRN IV (DC) Dextrose/Water (DEXTROSE 10% IN WATER) 250 ML ASDIR PRN IV (DC) Glucagon (GLUCAGON) 1 MG ASDIR PRN IM (DC) Hydralazine HCl (APRESOLINE) 10 MG Q2H PRN PRN IV (DC) Ketorolac Tromethamine (TORADOL) 15 MG Q6H PRN PRN IV (DC) Morphine Sulfate (morphine SULFATE) 4 MG Q4H PRN PRN IV (DC) Ondansetron HCl (ZOFRAN) 4 MG Q6H PRN PRN IV (DC) Sodium Chloride (SODIUM CHLORIDE 0.9%) 1,000 ML .Q10H IV (DC) Amiodarone HCl (AMIODARONE HCL) 450 MG X1ED STA IV Dextrose/Water (D5%W NON-DEHP) 250 ML Physical ExamGeneral appearance: alert, awakeHead/Eyes: normal conjunctiva/scleraCardiovascular: normal heart sounds, regular rate rhythmRespiratory: clear to auscultation, no distressAbdomen: normal bowel sounds, softExtremities: no edemaNeuro/PLASTICS 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, normal speechSkin: intact, no rashPsychiatry: normal affect, normal mood Diagnosis, Assessment Plan Free Text DxA P NotesFree text DxA P notes:Patient is a 53 yrs old male with Pmhx as mentioned above who presented withAssessment:Non-sustained V-tachy, on Amiodarone dripChest pain 2/2 aboveLife vest stopped firingTobacco abuseDiabetic Mellitus II with hyperglycemiaHx Left atrial clot (on Eliquis)Hx Diabetes Mellitus IIHx CAD PlanAdmit to CCUConsult CardiologyConsult Critical careContinous Telemetry monitoring - to assess for any arrythmiasEcho pending : Last Echo 11/29/23-EF 30-34%, grade 1 diastolic dysfunctionVital signs as per unit protocolAmiodarone drip @ 0.5mg/hrNPO for nowOptimize blood glucose, Hold Lantus Insulin while patient NPO/ use Humalog SSI coverage PRNElectrolyte monitoring and replacement as per Critical care followingLife vest off, pending cardiology evaluationBlood pressure acceptableHome meds restartedLeft atrial clot: AC EliquisCAD: Lipitor/Metoprolol/AspirinSmoking cessation counseling- discussed with patient the importants of quiting smoking and he is aware that continued smoking will complicate his current cardiac situation as well as other health problems such as cancer and poor circulation to his lower extremities and chest pain.He verablized undestanding, Offered patient Nicotine patch but he declined.Pain control: [place] PRNDVT ppx: [facility] [place]:No acute cardiopulmonary process.Plan of care discussed with patient/NurseFurther rec's as per clinical course. 12/28/23- amiodarone gtt as needed- eliquis- ssi/fingersticks- smoking cessation- am labs- cardio input pending- remains in ccu at 1350 RPT #:[id number] OF REPORTPRProgress kuzt9431-80-58Q86:43:00G.[id number] able for patient veizHPTMCGSJAZHSGL4888-64-16M82:50:58 [facility] 2023-12-28 12:44:00 [id number] phmmRPbK9WQCUqcWHQGvHKJ3vMBx8 72vdZ14wMapuEyO1tbgorKqR0YE0831-02-69B34:44:00 [facility] ([facility])Critical Care Progress NoteREPORT#:[id number] REPORT STATUS: SignedREPORT INITIALIZATION DATE:12/28/23 TIME: 1243 PATIENT: CHARAN RESTREPO UNIT #: [id number]#: [id number] [address] [birth year] AGE: 53 SEX: M ATTEND: Marycruz Villalba AUTHOR: Michelle Galvez SERVICE DT/TIME: 12/28/23 1244* ALL edits or amendments must be made on the electronic/computer document * SubjectiveHPI:Charan Restrepo is a 53-year-old male with past medical history significant for low ejection fraction, history of coronary disease, left atrial clot on Eliquis,presented to the ER at [facility] in [place] with chest pain. He also complained of increased shortness of breath and arrhythmia that has been going on for the last few weeks. Patient was found to have nonsustained ventricular tachycardia. He was given amiodarone 150 mg bolus over10 minutes and then started on drip at 1 mg/min. Patient has been on Eliquis because he was told that he has a blood clot in the left atrium and the plan wasto dissolve the blood clot before CABG that was supposed to be performed. Objective GeneralVS/I OLast Documented: Result Date Time Temp 97.6 12/28 799 Pulse Ox 97 12/28 799 B/P 118/63 12/27 0800 B/P Mean 84 12/27 0800 Pulse 59 12/27 0800 Resp 13 12/27 0800 O2 Delivery Room air 12/26 1205 24 hour I O ending at 0700: 12/27 0700 12/26 1900 Intake Total 916.00 Output Total Balance 916.00 Intake, IV 436.00 Intake, Oral 480 Number Voids 3 Patient 84.091 kg Weight Weight Stated/Reported Measurement Method PATIENT WEIGHT: Weight (lb): Weight (oz): Weight (kg): 84.091 Physical ExamGeneral appearance: alert, awake, orientedCardiovascular: normal capillary refill, normal heart sounds, regular rate and rhythmRespiratory: aerating well, clear to auscultationAbdomen: soft, non-tender, normal bowel soundsGenitourinary: no urinary catheterExtremities: moves all, normal capillary refill, normal range of motionNeuro/PLASTICS 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, oriented X 3 Diagnosis, Assessment PlanConsultants: cardiology, cardiovascular surgery, critical/residential designer, hospitalistCode status: full codeAdditional comments:Interval Events:12/28/23:Afib-now in SB-SR-Amiod drip d/c. May transition to oral. Bedside ECHO completed-pending report. Last reported EF 30-34%-was on a life vest. Left atrial clot: AC Eliquis. Neuro:AO x 3Pain-norco PRN CV:AFIB-Amiodarone drip off. Transition to oralMetoprolol 25 mg PO BIDCAD-Multivessl disease-CABG to be determined. on ASA/BB/StatinLeft atrial clot-Eliquis 5 mg PO BID RESP: RATobacco abuse-counciling provided. GI:Ok to resume cardiac diet Renal:VoidingScr 0.9Follow upm and replace electrolyte as needed ENDO:Hypergycemiainsulin sliding scale ID:No sign of infection MSK:OOBTc Critical Care Time 33 min at 1343 RPT #:[id number] OF REPORTPRProgress qfuq7536-60-72N01:44:00G.[id number] able for patient vnqsOGCQBNNCUUIDEM8783-60-62K61:43:33 [facility] 2023-12-27 23:08:00 [id number]8cj k/qfJc3ENUq17+Y7PfCyuzoX7l34627-11-26A27:08:00 [facility] History PhysicalREPORT#:[id number] REPORT STATUS: SignedREPORT INITIALIZATION DATE:12/27/23 TIME: 2307 PATIENT: CHARAN RESTREPO UNIT #: [id number]#: [id number] ROOM/BED: [id number]: [birth year] AGE: 53 SEX: M ATTEND: Jac Marsh [facility] AUTHOR: Tatum WilsonPREMILTNO SERVICE DT/TIME: 12/27/232307* ALL edits or amendments must be made on the electronic/computer document * History of Present Illness HPIChief complaint:Chest pain, shortness of breath.PCP:PCP: Jesusita Osuna MD HPI:Charan Sweet is a 53 yrs old male with Pmhx CAD, DM II,Life vest, left atrial clot( on AC Eliquis) and tobacco abuse who presented to outside ED at [facility] in [place] for c/o chest pain and shortness of breath. Patient wears life vest for low EF 30-40% (Echo 11/29/23) but reported that the Life vest stopped firing to correct his arrythmias. Patient also reported increased shortness of breath and arrythmias that has beenon going for the last few weeks.He was found to have non-sustained ventricular tachycardia, he was given Amiodarone 150mg bolus over 10 minutes and then started on amiodarone drip @ 1mg/min and was transfered to this facility Via EMSfor further evaluation and care. Patient when he arrive at this facility , his heart rate is controlled, EKG done showed normal sinus rhythm. Patient has been on Eliquis because he was told that he has a blood clot in the left atrium and the plan was to dissolve the blood clot before CABG that was supposed to be performed. Lab workup showed wbc 9.9, H/H 16.4/49.0, Plt 202,Na+140, K+ 4.9, CL 110H, CO2 29, Bun 13 , Cr 1,0 Glu 235H. Patient when seen, in bed asleep but easily arousable, denies any fever, chills, dizziness, palpitation, headache, abdominal pain or N/vomiting. Patient endorses chest pain, chest discomfort, and shortness of breath. Hx Obtained From Patient HistoryPast medical history:Reports: Coronary artery disease, Diabetes mellitus. Past surgical history:Reports: (Left Tib, Fib). Family history:Denies: CAD < 40 yrs old. Alcohol use: Alcohol use (social)Drug use: Denies recreational drugsSmoking status for patients 13 years old or older: Current every day smokerDate last smoked: 12/27/23Packs per day: 1Years smoked: 35Pack years: 0 Medication/Allergy-Vaccine HxMedications:Home Medications:Medication Dose/Rte/Freq Days Qty Entered Last Max Daily Dose Reviewed ATORVASTATIN (LIPITOR) 40 MG PO BEDTIME 03/20/23Strength: 40 MG TAB 0828 METOPROLOL SUCC XL 25 MG PO DAILY 03/20/23 (TOPROL XL) 0831Strength: 25 MG TAB.SR.24H ASPIRIN 81 MG PO DAILY 03/20/23Strength: 81 MG TAB.CHEW 0834 APIXABAN (ELIQUIS) 5 MG PO BID 60 12/03/23Strength: 5 MG TAB 1055 NITROGLYCERIN 0.4 MG SL 30 12/03/23 (NITROSTAT) Q5M PRN PRN CHEST 1055Strength: 0.4 MG TAB.SL PAIN INSULIN GLARGINE 20 UNITS SUBQ 15 12/03/23 (LANTUS SOLOSTAR (15mL)) BEDTIME 1056Strength: 100 UNIT/ML (3 ML)PEN.INJCTR Current Hospital Medications:Blood Formation,Coagulation Sig/Marie Start time Last Medication Dose Route Stop Time Status Admin Apixaban 5 MG BID 12/27 899 AC (ELIQUIS 5MG TABLET) PO 03/27 0859 Heparin Sodium/ 500 ML .STK-MED ONE 12/27 0658 DC Sodium Chloride IV (HEPARIN 1,000 UNITS/ NS 500ML) Cardiovascular Drugs Sig/Marie Start time Last Medication Dose Route Stop Time Status Admin Atorvastatin Calcium 40 MG BEDTIME 12/27 2100 AC (LIPITOR) PO 01/26 2059 Metoprolol Succinate 25 MG DAILY 12/27 899 AC (TOPROL XL) PO 03/27 0859 Nitroglycerin 0.4 MG Q5M PRN PRN 12/26 2115 AC (NITROSTAT) SL 03/26 211 Amiodarone HCl 450 MG ASDIR 12/26 2044 CKD 12/26 (AMIODARONE HCL) IV 03/26 2044 2217 Dextrose/Water 250 ML (D5%W NON-DEHP) Hydralazine HCl 10 MG Q2H PRN PRN 12/26 1515 AC (APRESOLINE) IV 12/27 1414 Amiodarone HCl 450 MG X1ED STA 12/26 1254 AC 12/26 (AMIODARONE HCL) IV 01/06 0753 1325 Dextrose/Water 250 ML (D5%W NON-DEHP) Central Nervous System Agents Sig/Marie Start time Last Medication Dose Route Stop Time Status Admin Aspirin 81 MG DAILY 12/27 0900 AC (ASPIRIN) PO 03/27 0859 Hydrocodone Bitart/ 1 TAB Q4H PRN PRN 12/26 2200 AC 12/27 Acetaminophen PO 12/31 215 0404 (NORCO 10/325) Magnesium Sulfate/ 100 ML ONCE ONE 12/26 2200 DC 12/26 Dextrose IV 12/26 2259 2203 (MAGNESIUM SULFATE 1GM/D5W 100ML) Acetaminophen 650 MG Q4H PRN PRN 12/26 1515 AC (TYLENOL) PO 12/27 1414 Hydrocodone Bitart/ 1 TAB Q4H PRN PRN 12/26 1515 DC Acetaminophen PO 12/27 1414 (NORCO 5/325) Ibuprofen 600 MG Q6H PRN PRN 12/26 1515 CAN (IBUPROFEN) PO 12/27 1414 Ketorolac 15 MG Q6H PRN PRN 12/26 1515 AC Tromethamine IV 12/27 1414 (TORADOL) Morphine Sulfate 4 MG Q4H PRN PRN 12/26 1515 AC 12/27 (morphine SULFATE) IV 12/27 1414 0501 Morphine Sulfate 2 MG X1ED STA 12/26 1339 DC 12/26 (morphine SULFATE) IV 12/26 1340 1348 Aspirin 324 MG X1ED STA 12/26 1236 DC (ASPIRIN) PO 12/26 1237 Electrolytic, Caloric, And Mercedes Sig/Marie Start time Last Medication Dose Route Stop Time Status Admin Dextrose/Water 125 ML ASDIR PRN 12/26 1515 CKD (DEXTROSE 10% IN IV 12/27 1414 WATER) Dextrose/Water 250 ML ASDIR PRN 12/26 1515 CKD (DEXTROSE 10% IN IV 12/27 1414 WATER) Sodium Chloride 1,000 ML .Q10H 12/26 1515 AC 12/26 (SODIUM CHLORIDE IV 12/27 1414 1855 0.9%) Gastrointestinal Drugs Sig/Marie Start time Last Medication Dose Route Stop Time Status Admin Ondansetron HCl 4 MG Q6H PRN PRN 12/26 1515 AC 12/26 (ZOFRAN) IV 12/27 1414 1911 Ondansetron HCl 4 MG X1ED STA 12/26 1339 DC 12/26 (ZOFRAN) IV 12/26 1340 1349 Hormones And Synthetic Substit Sig/Marie Start time Last Medication Dose Route Stop Time Status Admin Insulin Glargine 20 UNIT BEDTIME 12/27 2100 CAN (Semglee) SUBQ 03/27 205 Insulin Human Lispro 0 AC HS 12/26 1630 AC (HUMALOG) SUBQ 12/27 1414 Glucagon 1 MG ASDIR PRN 12/26 1515 AC (GLUCAGON) IM 12/27 1414 Allergies:Coded Allergies:No Known Allergies (03/18/23) 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 Skin:Denies: abrasion, bruising, ecchymosis, itching, rash, swelling. Allergy/Immun:Denies: allergic reaction, itching, sneezing. Eyes:Denies: redness, discharge, visual loss/blurred, itching, eye pain, swelling. ENT:Denies: ear drainage, ear ringing, earache, hearing loss, mouth pain, nasal congestion, nose bleeding, sinus problem, sore throat, throat pain, throat swelling, tongue pain, tongue swelling, voice change. Respiratory:Reports: SOB. Denies: DWYER (dyspnea on exertion), wheezing. Cardiovascular:chest pain. Denies: DWYER (dyspnea on exertion), edema, palpitations. GI:Denies: abdominal pain, constipation, diarrhea, dysphagia, GERD, hematemesis, hematochezia, melena, nausea, vomiting. :Denies: flank pain, frequency, hematuria, urinary retention. Musculoskeletal:Denies: joint pain, joint swelling. Heme:Denies: bleeding, bruising. Endocrine:Denies: cold intolerance, heat intolerance, polyphagia, polyuria. Neuro:Denies: bladder dysfunction, bowel dysfunction, change in LOC, confusion, dizziness, focal weakness, gait problem, headache, lightheaded, numbness, seizure, syncope, vision change. Psych:Denies: agitation, anxiety, change in mental status, confusion, homicidal ideation, suicidal ideation, visual hallucination. All systems rev neg: except as marked Objective GeneralVS/I O:Vital Signs: Date Time Temp Pulse Resp B/P B/P Pulse O2 O2 Flow FiO2 Mean Ox Delivery Rate 12/26 2302 73 25 110/61 67 97 12/260 66 16 133/74 98 95 12/265 69 14 138/73 99 95 12/26 2099 72 18 132/65 92 97 12/26 2054 97.4 12/265 67 16 133/67 94 97 12/27 2019 69 97 12/27 1999 67 13 124/66 89 94 12/26 1930 73 14 132/77 99 100 03/07 1915 70 143/84 107 95 03/07 1730 61 15 130/76 98 98 03/07 1630 65 21 97 03/07 1530 56 15 96 03/07 1432 62 16 128/78 98 98 03/07 1400 72 100 03/07 1330 72 100 03/07 1300 67 19 100 03/07 1215 68 16 133/81 101 100 03/07 1205 98.6 72 16 139/78 98 100 Room air PATIENT WEIGHT: Weight (lb): Weight (oz): Weight (kg): 84.091 Medications:Active Meds + DC'd Last 24 HrsAtorvastatin Calcium (LIPITOR) 40 MG BEDTIME PO Insulin Glargine (Semglee) 20 UNIT BEDTIME SUBQ Apixaban (ELIQUIS 5MG TABLET) 5 MG BID PO Aspirin (ASPIRIN) 81 MG DAILY PO Metoprolol Succinate (TOPROL XL) 25 MG DAILY PO Hydrocodone Bitart/Acetaminophen (NORCO 10/325) 1 TAB Q4H PRN PRN PO Magnesium Sulfate/Dextrose (MAGNESIUM SULFATE 1GM/D5W 100ML) 100 ML ONCE ONE IV (DC) Nitroglycerin (NITROSTAT) 0.4 MG Q5M PRN PRN SL Amiodarone HCl (AMIODARONE HCL) 450 MG ASDIR IV (CKD) Dextrose/Water (D5%W NON-DEHP) 250 MLInsulin Human Lispro (HUMALOG) 0 AC HS SUBQ Acetaminophen (TYLENOL) 650 MG Q4H PRN PRN PO Dextrose/Water (DEXTROSE 10% IN WATER) 125 ML ASDIR PRN IV (CKD) Dextrose/Water (DEXTROSE 10% IN WATER) 250 ML ASDIR PRN IV (CKD) Glucagon (GLUCAGON) 1 MG ASDIR PRN IM Hydralazine HCl (APRESOLINE) 10 MG Q2H PRN PRN IV Hydrocodone Bitart/Acetaminophen (NORCO 5/325) 1 TAB Q4H PRN PRN PO (DC) Ibuprofen (IBUPROFEN) 600 MG Q6H PRN PRN PO (CAN) Ketorolac Tromethamine (TORADOL) 15 MG Q6H PRN PRN IV Morphine Sulfate (morphine SULFATE) 4 MG Q4H PRN PRN IV Ondansetron HCl (ZOFRAN) 4 MG Q6H PRN PRN IV Sodium Chloride (SODIUM CHLORIDE 0.9%) 1,000 ML .Q10H IV Morphine Sulfate (morphine SULFATE) 2 MG X1ED STA IV (DC) Ondansetron HCl (ZOFRAN) 4 MG X1ED STA IV (DC) Amiodarone HCl (AMIODARONE HCL) 450 MG X1ED STA IV Dextrose/Water (D5%W NON-DEHP) 250 MLAspirin (ASPIRIN) 324 MG X1ED STA PO (DC) Physical ExamGeneral appearance: alert, awake, oriented, no acute distress, conversational, mental status normal, no respiratory distressHead/Eyes: atraumatic, EOMI, normocephalicENT: moist mucosal membranesNeck: full range of motion, non-tender, supple/no meningismus, no JVDCardiovascular: normal capillary refill, normal heart sounds, regular rate rhythm, no murmurRespiratory: aerating well, clear to auscultation, symmetric expansion, no distressAbdomen: non-tender, normal bowel sounds, soft, no distentionGenitourinary: no flank pain, no urinary catheterExtremities: moves all, normal capillary refill, normal range of motion, no clubbing, no cyanosis, no edemaMusculoskeletal: normal inspectionNeuro/PLASTICS 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, oriented X 3, normal speechSkin: dry, normal color, normal temperature, no rashPsychiatry: normal affect, normal judgment/insight, normal mood, not homicidal, not suicidal, no hallucinations ResultsFindings/Data:Laboratory Tests 12/26 1720 1225 1225Chemistry Sodium (134 - 147 mEq/L) 140 138 Potassium (3.4 - 5.0 mEq/L) 4.9 4.4 Chloride (100 - 108 mEq/L) 110 H 107 Carbon Dioxide (21 - 33 mEq/l) 29 28 Anion Gap (0 - 20) 6 8 BUN (7 - 25 mg/dL) 13 18 Creatinine (0.6 - 1.3 mg/dL) 1.0 1.1 Glomerular Filtr Rate (90 - 95) 89.4 L 79.8 L Glucose (77 - 141 mg/dL) 235 H 197 H Calcium (8.0 - 10.5 mg/dL) 9.2 9.2 Ionized Calcium Zina (1.09 - 1.30 MMOL/L) 1.14 Phosphorus (2.5 - 4.9 MG/DL) 3.6 Magnesium (1.6 - 2.6 mg/dL) 1.97 2.00 2.04 Total Bilirubin (0.0 - 1.0 mg/dL) 0.70 0.60 Direct Bilirubin (0.1 - 0.3 MG/DL) 0.20 Indirect Bilirubin (MG/DL) 0.40 AST (8 - 34 IUnit/L) 32 18 ALT (10 - 49 IUnit/L) 20 17 Total Alk Phosphatase (20 - 125 IUnit/L) 67 79 CK-MB (CK-2) (0 - 5.0 ng/mL) 0.1 Troponin I High Sens (0 - 54 ng/L) 13 15 12 B-Natriuretic Peptide (0 - 100 PG/ML) 66.0 Total Protein (6.4 - 8.2 g/dL) 6.6 6.9 Albumin (3.4 - 5.0 g/dL) 3.90 4.20 Lipase (13 - 57 U/L) 37 TSH (0.42 - 5.47 IU/mL) 3.92 Laboratory Tests 12/26 0307 2121 1225 Hematology WBC (4.5 - 11.0 x10 3/uL) 9.9 10.9 RBC (4.00 - 5.60 x10 6/uL) 5.65 H 5.90 H Hgb (12.5 - 16.9 g/dL) 16.4 17.1 H Hct (37.5 - 50.7 %) 49.0 51.1 H MCV (81.0 - 99.0 fL) 86.7 86.6 MCH (27.0 - 33.0 pg) 29.0 29.0 MCHC (33.0 - 37.0 g/dL) 33.5 33.5 RDW (11.5 - 14.5 %) 13.6 13.6 Plt Count (150 - 400 x10 3/uL) 202 217 MPV (7.0 - 9.0 fL) 10.4 H 10.3 H Neut % (Auto) (56.0 - 77.0 %) 69.2 68.2 Lymph % (Auto) (14.0 - 32.0 %) 20.0 19.3 Marion % (Auto) (4.8 - 9.0 %) 5.6 8.3 Eos % (Auto) (0.3 - 3.7 %) 3.8 H 2.8 Baso % (Auto) (0.0 - 2.0 %) 0.9 0.7 Neut # (Auto) (2.0 - 7.6 x10 3/uL) 6.86 7.42 Lymph # (Auto) (1.0 - 3.8 x10 3/uL) 1.99 2.10 Marion # (Auto) (0.1 - 0.8 x10 3/uL) 0.56 0.90 H Eos # (Auto) (0.0 - 0.2 x10 3/uL) 0.38 H 0.31 H Baso # (Auto) (0.0 - 0.2 x10 3/uL) 0.09 0.08 Abs Immat Gran (auto) (0.00 - 0.03 x10 3/uL) 0.05 H 0.08 H Immature Gran % (0.0 - 2.0 %) 0.5 0.7 Nucleated RBC % (0 - 0 %) 0.0 0.0 Nucleated RBCs # (Man) (0.0 - 0.1 x10 3/uL) 0.00 0.00 Laboratory Tests 12/26 1802 Toxicology Urine Opiates Screen (NEGATIVE) POSITIVE H Urine Barbiturates (NEGATIVE) NEGATIVE Ur Phencyclidine Scrn (NEGATIVE) NEGATIVE Ur Amphetamines Screen (NEGATIVE) NEGATIVE U Benzodiazepines Scrn (NEGATIVE) NEGATIVE Urine Cocaine Screen (NEGATIVE) NEGATIVE Urine Cannabinoids (NEGATIVE) NEGATIVE Laboratory Tests 12/26 1802 Urines Urine Color (YEL/STRAW) YELLOW Urine Appearance (CLEAR) CLEAR Urine pH (5.0 - 7.0) 5.0 Ur Specific [place] (1.005 - 1.030) 1.008 Urine Protein (NEGATIVE) NEGATIVE Urine Glucose (UA) (NEGATIVE) 3+ H Urine Ketones (NEGATIVE) NEGATIVE Urine Blood (NEGATIVE) NEGATIVE Urine Nitrite (NEGATIVE) NEGATIVE Urine Bilirubin (NEGATIVE) NEGATIVE Urine Urobilinogen (0.2 - 1.0 mg/dL) 0.2 Ur Leukocyte Esterase (NEGATIVE) NEGATIVE Urine RBC (0 - 3 RBC/HPF) NONE SEEN Urine WBC (0 - 3 WBC/HPF) 0-3 Ur Squamous Epith Cells (NONE SEEN /HPF) NONE SEEN Urine Bacteria (NONE SEEN /HPF) NONE SEEN Urine Mucus (NONE SEEN /LPF) TRACE Radiology data:Recent Impressions:RADIOLOGY - XR CHEST 1 V 12/26 1246 Report Impression - Status: SIGNED Entered: 12/27/2023 1303 IMPRESSION:No acute cardiopulmonary process. Impression By: Brinda - Michelle Whitman M.D. Diagnosis, Assessment PlanConsultants: cardiology, critical/intensivistPlan discussed with: patient, nurseTime spent: >50% spent on counseling/coordination of care: yes Free Text DxA P NotesFree Text DxA P Notes:Patient is a 53 yrs old male with Pmhx as mentioned above who presented withAssessment:Non-sustained V-tachy, on Amiodarone dripChest pain 2/2 aboveLife vest stopped firingTobacco abuseDiabetic Mellitus II with hyperglycemiaHx Left atrial clot (on Eliquis)Hx Diabetes Mellitus IIHx CAD PlanAd[facility]iologyConsult Critical careContinous Telemetry monitoring - to assess for any arrythmiasEcho pending : Last Echo 11/29/23-EF 30-34%, grade 1 diastolic dysfunctionVital signs as per unit protocolAmiodarone drip @ 0.5mg/hrNPO for nowOptimize blood glucose, Hold Lantus Insulin while patient NPO/ use Humalog SSI coverage PRNElectrolyte monitoring and replacement as per Critical care followingLife vest off, pending cardiology evaluationBlood pressure acceptableHome meds restartedLeft atrial clot: AC EliquisCAD: Lipitor/Metoprolol/AspirinSmoking cessation counseling- discussed with patient the importants of quiting smoking and he is aware that continued smoking will complicate his current cardiac situation as well as other health problems such as cancer and poor circulation to his lower extremities and chest pain.He verablized undestanding, Offered patient Nicotine patch but he declined.Pain control: [place] PRNDVT ppx: [facility] [place]:No acute cardiopulmonary process.Plan of care discussed with patient/NurseFurther rec's as per clinical course. at 0748 RPT #:[id number] OF REPORTHPHistory and physical ozaboevxzoy8642-06-80R32:08:00G.[id number] AVAvailable for patient pxlqXXIJINDWFSOZYK7455-97-36B67:49:04 HCACL 2023-12-27 22:05:00 [id number] wWFwBngqmoWPSydiPt4tm9mtODF9798-41-32F27:05:00 [facility] ([facility])Critical Care Consult NoteREPORT#:[id number] REPORT STATUS: SignedREPORT INITIALIZATION DATE:12/27/23 TIME: 2204 PATIENT: CHARAN RESTREPO UNIT #: [id number]#: [id number] [address] [birth year] AGE: 53 SEX: M ATTEND: Jac Marsh MDADM AUTHOR: Alex Ley MDREPT SERVICE DT/TIME: 12/27/232204* ALL edits or amendments must be made on the electronic/computer document * History of Present Illness HPIRequesting clinician: ER PhysicianReason for consult: Andres Gonzales Chief complaint: Chest painDyspneaHistory of CADLeft Atrial Clot on Eliquis PCP:PCP: Jesusita Osuna MD HPI: Charan Kaye is a 53-year-old male with past medical history significant for low ejection fraction, history of coronary disease, left atrial clot on Eliquis,presented to the ER at [facility] in [place] with chest pain. He also complained of increased shortness of breath and arrhythmia that has been going on for the last few weeks. Patient was found to have nonsustained ventricular tachycardia. He was given amiodarone 150 mg bolus over10 minutes and then started on drip at 1 mg/min. He is rate controlled at this time. Patient has been on Eliquis because he was told that he has a blood clot in the left atrium and the plan was to dissolve the blood clot before CABG that was supposed to be performed. Patient arrives via EMS as transfer from outside facility. WBC count was 9600, hemoglobin is 16.8 g/dL, hematocrit 48.6%, platelet count of 205K. Patient sodium stable 138 potassium stable at 3.9 chloride stable at 108, slightly above the upper limit of normal, CO2 26, withinnormal limits, anion gap 7.9, glucose 234, elevated, BUN 21 creatinine 1.07 GFR 82 patient with BNP slightly elevated at 517 troponin 15.1, within normal limitspatient with chest x-ray that revealed no acute abnormality. Patient was found to have magnesium of 2.04 mg/dL, potassium of 4.4. Ionized calcium is being checked. Patient received 1 g of magnesium sulfate. Vital signs are stable sinus rhythm at 72, blood pressure is 133/74 mmHg, pulse ox 95% on room air and respiratory rate of 23. Patient is awake, interactive, following commands and moving all 4 extremities. History - Adult longitudinalPast medical history:Reports: Coronary artery disease, Diabetes mellitus. Past surgical history:Reports: (Left Tib, Fib). Family history:Denies: CAD < 40 yrs old. Alcohol use: Alcohol use (social)Drug use: Denies recreational drugsSmoking status for patients 13 years old or older: Current every day smokerDate last smoked: 12/27/23Packs per day: 1Pack years: 0Medications:Home Medications:Medication Dose/Rte/Freq Days Qty Entered Last Max Daily Dose Reviewed ATORVASTATIN (LIPITOR) 40 MG PO BEDTIME 03/20/23Strength: 40 MG TAB 0828 METOPROLOL SUCC XL 25 MG PO DAILY 03/20/23 (TOPROL XL) 0831Strength: 25 MG TAB.SR.24H ASPIRIN 81 MG PO DAILY 30 03/20/23Strength: 81 MG TAB.CHEW 0834 APIXABAN (ELIQUIS) 5 MG PO BID 60 12/03/23Strength: 5 MG TAB 1055 NITROGLYCERIN 0.4 MG SL 30 12/03/23 (NITROSTAT) Q5M PRN PRN CHEST 1055Strength: 0.4 MG TAB.SL PAIN INSULIN GLARGINE 20 UNITS SUBQ 15 12/03/23 (LANTUS SOLOSTAR (15mL)) BEDTIME 1056Strength: 100 UNIT/ML (3 ML)PEN.INJCTR Current Hospital Medications:Blood Formation,Coagulation Sig/Marie Start time Last Medication Dose Route Stop Time Status Admin Apixaban 5 MG BID 12/27 09 AC (ELIQUIS 5MG TABLET) PO 03/27 0859 Cardiovascular Drugs Sig/Marie Start time Last Medication Dose Route Stop Time Status Admin Atorvastatin Calcium 40 MG BEDTIME 12/27 2100 AC (LIPITOR) PO 01/26 2059 Metoprolol Succinate 25 MG DAILY 12/27 899 AC (TOPROL XL) PO 03/27 0859 Nitroglycerin 0.4 MG Q5M PRN PRN 12/26 211 AC (NITROSTAT) SL 03/26 2114 Amiodarone HCl 450 MG ASDIR 12/26 2044 CKD (AMIODARONE HCL) IV 03/26 204 Dextrose/Water 250 ML (D5%W NON-DEHP) Hydralazine HCl 10 MG Q2H PRN PRN 12/26 1515 AC (APRESOLINE) IV 12/27 1414 Amiodarone HCl 450 MG X1ED STA 12/26 1254 AC 12/26 (AMIODARONE HCL) IV 01/06 0753 1325 Dextrose/Water 250 ML (D5%W NON-DEHP) Central Nervous System Agents Sig/Marie Start time Last Medication Dose Route Stop Time Status Admin Aspirin 81 MG DAILY 12/27 899 AC (ASPIRIN) PO 03/27 0859 Hydrocodone Bitart/ 1 TAB Q4H PRN PRN 12/26 2200 AC 12/26 Acetaminophen PO 12/31 2159 2202 (NORCO 10/325) Magnesium Sulfate/ 100 ML ONCE ONE 12/26 2200 CKD 12/26 Dextrose IV 12/26 2259 2203 (MAGNESIUM SULFATE 1GM/D5W 100ML) Acetaminophen 650 MG Q4H PRN PRN 12/26 1515 AC (TYLENOL) PO 12/27 1414 Hydrocodone Bitart/ 1 TAB Q4H PRN PRN 12/26 1515 DC Acetaminophen PO 12/27 1414 (NORCO 5/325) Ibuprofen 600 MG Q6H PRN PRN 12/26 1515 CAN (IBUPROFEN) PO 12/27 1414 Ketorolac 15 MG Q6H PRN PRN 12/26 1515 AC Tromethamine IV 12/27 1414 (TORADOL) Morphine Sulfate 4 MG Q4H PRN PRN 12/26 1515 AC 12/26 (morphine SULFATE) IV 12/27 1414 1911 Morphine Sulfate 2 MG X1ED STA 12/26 1339 DC 12/26 (morphine SULFATE) IV 12/26 1340 1348 Aspirin 324 MG X1ED STA 12/26 1236 DC (ASPIRIN) PO 12/26 1237 Electrolytic, Caloric, And Mercedes Sig/Marie Start time Last Medication Dose Route Stop Time Status Admin Dextrose/Water 125 ML ASDIR PRN 12/26 1515 CKD (DEXTROSE 10% IN IV 12/27 1414 WATER) Dextrose/Water 250 ML ASDIR PRN 12/26 1515 CKD (DEXTROSE 10% IN IV 12/27 1414 WATER) Sodium Chloride 1,000 ML .Q10H 12/26 1515 AC 12/26 (SODIUM CHLORIDE IV 12/27 1414 1855 0.9%) Gastrointestinal Drugs Sig/Marie Start time Last Medication Dose Route Stop Time Status Admin Ondansetron HCl 4 MG Q6H PRN PRN 12/26 1515 AC 12/26 (ZOFRAN) IV 12/27 1414 1911 Ondansetron HCl 4 MG X1ED STA 12/26 1339 DC 12/26 (ZOFRAN) IV 12/26 1340 1349 Hormones And Synthetic Substit Sig/Marie Start time Last Medication Dose Route Stop Time Status Admin Insulin Glargine 20 UNIT BEDTIME 12/27 2100 r (Semglee) SUBQ 03/27 2059 Insulin Human Lispro 0 AC HS 12/26 1630 AC (HUMALOG) SUBQ 12/27 1414 Glucagon 1 MG ASDIR PRN 12/26 1515 AC (GLUCAGON) IM 12/27 1414 Allergies:Coded Allergies:No Known Allergies (03/18/23) 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 Skin:Denies: diaphoresis, ecchymosis. Allergy/Immun:Denies: anaphylaxis, hives. Eyes:Denies: redness, discharge. ENT:Denies: nose bleeding, throat swelling, tongue swelling. Respiratory:Denies: DWYER (dyspnea on exertion), hemoptysis. Cardiovascular:Reports: chest pain. Denies: DWYER (dyspnea on exertion), edema, orthopnea, palpitations. GI:Denies: hematemesis, hematochezia. :Denies: frequency, hematuria. Psych:Denies: agitation, anxiety. Objective Physical ExamVS/I O:Last Documented: Result Date Time Pulse Ox 95 12/26 2129 B/P 133/74 12/26 2129 B/P Mean 98 12/26 2129 Pulse 66 12/26 2129 Resp 16 12/26 2129 O2 Delivery Room air 12/26 1204 Temp 37.0 12/26 1204 Patient Weight and BMI Weight (kg): 84.091 BMI: 26.6 Medications:Active Meds + DC'd Last 24 HrsAtorvastatin Calcium (LIPITOR) 40 MG BEDTIME PO Insulin Glargine (Semglee) 20 UNIT BEDTIME SUBQ (r) Apixaban (ELIQUIS 5MG TABLET) 5 MG BID PO Aspirin (ASPIRIN) 81 MG DAILY PO Metoprolol Succinate (TOPROL XL) 25 MG DAILY PO Hydrocodone Bitart/Acetaminophen (NORCO 10/325) 1 TAB Q4H PRN PRN PO Magnesium Sulfate/Dextrose (MAGNESIUM SULFATE 1GM/D5W 100ML) 100 ML ONCE ONE IV (CKD) Nitroglycerin (NITROSTAT) 0.4 MG Q5M PRN PRN SL Amiodarone HCl (AMIODARONE HCL) 450 MG ASDIR IV (CKD) Dextrose/Water (D5%W NON-DEHP) 250 MLInsulin Human Lispro (HUMALOG) 0 AC HS SUBQ Acetaminophen (TYLENOL) 650 MG Q4H PRN PRN PO Dextrose/Water (DEXTROSE 10% IN WATER) 125 ML ASDIR PRN IV (CKD) Dextrose/Water (DEXTROSE 10% IN WATER) 250 ML ASDIR PRN IV (CKD) Glucagon (GLUCAGON) 1 MG ASDIR PRN IM Hydralazine HCl (APRESOLINE) 10 MG Q2H PRN PRN IV Hydrocodone Bitart/Acetaminophen (NORCO 5/325) 1 TAB Q4H PRN PRN PO (DC) Ibuprofen (IBUPROFEN) 600 MG Q6H PRN PRN PO (CAN) Ketorolac Tromethamine (TORADOL) 15 MG Q6H PRN PRN IV Morphine Sulfate (morphine SULFATE) 4 MG Q4H PRN PRN IV Ondansetron HCl (ZOFRAN) 4 MG Q6H PRN PRN IV Sodium Chloride (SODIUM CHLORIDE 0.9%) 1,000 ML .Q10H IV Morphine Sulfate (morphine SULFATE) 2 MG X1ED STA IV (DC) Ondansetron HCl (ZOFRAN) 4 MG X1ED STA IV (DC) Amiodarone HCl (AMIODARONE HCL) 450 MG X1ED STA IV Dextrose/Water (D5%W NON-DEHP) 250 MLAspirin (ASPIRIN) 324 MG X1ED STA PO (DC) General appearance: alert, awake, oriented, no acute distress, pleasant, conversational, mental status normal, no respiratory distressHead/Eyes: atraumatic, clear cornea, normocephalic, PERRLENT: moist mucosal membranes, normal nose, normal sinusAbdomen: soft, non-tender, no distention, no guarding, no reboundExtremities: moves all, normal capillary refill, normal range of motion, no clubbing, no cyanosis, no edemaSkin: dry, normal color, normal temperature, no rashPsychiatry: normal affect, normal mood, not homicidal, not suicidal, no hallucinations ResultsFindings/Data:Laboratory Tests 12/27/23 2121:[Embedded Image Not Available] 12/27/23 1225:[Embedded Image Not Available]Laboratory Tests 12/26 1720 1225 1225 Chemistry Sodium (134 - 147 mEq/L) 138 Potassium (3.4 - 5.0 mEq/L) 4.4 Chloride (100 - 108 mEq/L) 107 Carbon Dioxide (21 - 33 mEq/l) 28 Anion Gap (0 - 20) 8 BUN (7 - 25 mg/dL) 18 Creatinine (0.6 - 1.3 mg/dL) 1.1 Glomerular Filtr Rate (90 - 95) 79.8 L Glucose (77 - 141 mg/dL) 197 H Calcium (8.0 - 10.5 mg/dL) 9.2 Magnesium (1.6 - 2.6 mg/dL) 2.04 Total Bilirubin (0.0 - 1.0 mg/dL) 0.60 Direct Bilirubin (0.1 - 0.3 MG/DL) 0.20 Indirect Bilirubin (MG/DL) 0.40 AST (8 - 34 IUnit/L) 18 ALT (10 - 49 IUnit/L) 17 Total Alk Phosphatase (20 - 125 IUnit/L) 79 CK-MB (CK-2) (0 - 5.0 ng/mL) 0.1 Troponin I High Sens (0 - 54 ng/L) 13 15 12 B-Natriuretic Peptide (0 - 100 PG/ML) 66.0 Total Protein (6.4 - 8.2 g/dL) 6.9 Albumin (3.4 - 5.0 g/dL) 4.20 Lipase (13 - 57 U/L) 37 TSH (0.42 - 5.47 IU/mL) 3.92 Laboratory Tests 12/26 0307 2121 1225 Hematology WBC (4.5 - 11.0 x10 3/uL) 9.9 10.9 RBC (4.00 - 5.60 x10 6/uL) 5.65 H 5.90 H Hgb (12.5 - 16.9 g/dL) 16.4 17.1 H Hct (37.5 - 50.7 %) 49.0 51.1 H MCV (81.0 - 99.0 fL) 86.7 86.6 MCH (27.0 - 33.0 pg) 29.0 29.0 MCHC (33.0 - 37.0 g/dL) 33.5 33.5 RDW (11.5 - 14.5 %) 13.6 13.6 Plt Count (150 - 400 x10 3/uL) 202 217 MPV (7.0 - 9.0 fL) 10.4 H 10.3 H Neut % (Auto) (56.0 - 77.0 %) 69.2 68.2 Lymph % (Auto) (14.0 - 32.0 %) 20.0 19.3 Marion % (Auto) (4.8 - 9.0 %) 5.6 8.3 Eos % (Auto) (0.3 - 3.7 %) 3.8 H 2.8 Baso % (Auto) (0.0 - 2.0 %) 0.9 0.7 Neut # (Auto) (2.0 - 7.6 x10 3/uL) 6.86 7.42 Lymph # (Auto) (1.0 - 3.8 x10 3/uL) 1.99 2.10 Marion # (Auto) (0.1 - 0.8 x10 3/uL) 0.56 0.90 H Eos # (Auto) (0.0 - 0.2 x10 3/uL) 0.38 H 0.31 H Baso # (Auto) (0.0 - 0.2 x10 3/uL) 0.09 0.08 Abs Immat Gran (auto) (0.00 - 0.03 x10 3/uL) 0.05 H 0.08 H Immature Gran % (0.0 - 2.0 %) 0.5 0.7 Nucleated RBC % (0 - 0 %) 0.0 0.0 Nucleated RBCs # (Man) (0.0 - 0.1 x10 3/uL) 0.00 0.00 Laboratory Tests 12/26 180 Toxicology Urine Opiates Screen (NEGATIVE) POSITIVE H Urine Barbiturates (NEGATIVE) NEGATIVE Ur Phencyclidine Scrn (NEGATIVE) NEGATIVE Ur Amphetamines Screen (NEGATIVE) NEGATIVE U Benzodiazepines Scrn (NEGATIVE) NEGATIVE Urine Cocaine Screen (NEGATIVE) NEGATIVE Urine Cannabinoids (NEGATIVE) NEGATIVE Laboratory Tests 12/26 1801 Urines Urine Color (YEL/STRAW) YELLOW Urine Appearance (CLEAR) CLEAR Urine pH (5.0 - 7.0) 5.0 Ur Specific [place] (1.005 - 1.030) 1.008 Urine Protein (NEGATIVE) NEGATIVE Urine Glucose (UA) (NEGATIVE) 3+ H Urine Ketones (NEGATIVE) NEGATIVE Urine Blood (NEGATIVE) NEGATIVE Urine Nitrite (NEGATIVE) NEGATIVE Urine Bilirubin (NEGATIVE) NEGATIVE Urine Urobilinogen (0.2 - 1.0 mg/dL) 0.2 Ur Leukocyte Esterase (NEGATIVE) NEGATIVE Urine RBC (0 - 3 RBC/HPF) NONE SEEN Urine WBC (0 - 3 WBC/HPF) 0-3 Ur Squamous Epith Cells (NONE SEEN /HPF) NONE SEEN Urine Bacteria (NONE SEEN /HPF) NONE SEEN Urine Mucus (NONE SEEN /LPF) TRACE Microbiology:12/26 2120 NASAL: MRSA DNA Surveillance Screen - RECD Radiology data:Recent Impressions:RADIOLOGY - XR CHEST 1 V 12/26 1246 Report Impression - Status: SIGNED Entered: 12/27/2023 1303 IMPRESSION:No acute cardiopulmonary process. Impression By: Brinda - Michelle Whitman M.D. Results: labs reviewed, vital signs reviewed, rhythm personally rev'd, current med profile rev'd Diagnosis, Assessment Plan Diagnosis, Assessment PlanConsultants: cardiology, critical/residential designer, hospitalistPlan discussed with: patient, nurse, interdisc care teamCritical care time: Minutes: 38 Code Status/Resusc. DiscussionResuscitation discussion: Discussed with: patientCode status: full codeFree text DxA P: Problem List: Chest painDyspneaHistory of CADLeft Atrial Clot on Eliquis Assessment and Plan: Charan Restrepo is a 53-year-old male with past medical history significant for low ejection fraction, history of coronary disease, left atrial clot on Eliquis,presented to the ER at [facility] in [place] with chest pain. He also complained of increased shortness of breath and arrhythmia that has been going on for the last few weeks. Patient was found to have nonsustained ventricular tachycardia. He was given amiodarone 150 mg bolus over10 minutes and then started on drip at 1 mg/min. He is rate controlled at this time. Patient has been on Eliquis because he was told that he has a blood clot in the left atrium and the plan was to dissolve the blood clot before CABG that was supposed to be performed. Patient arrives via EMS as transfer from outside facility. WBC count was 9600, hemoglobin is 16.8 g/dL, hematocrit 48.6%, platelet count of 205K. Patient sodium stable 138 potassium stable at 3.9 chloride stable at 108, slightly above the upper limit of normal, CO2 26, withinnormal limits, anion gap 7.9, glucose 234, elevated, BUN 21 creatinine 1.07 GFR 82 patient with BNP slightly elevated at 517 troponin 15.1, within normal limitspatient with chest x-ray that revealed no acute abnormality. Patient was found to have magnesium of 2.04 mg/dL, potassium of 4.4. Ionized calcium is being checked. Patient received 1 g of magnesium sulfate. Vital signs are stable sinus rhythm at 72, blood pressure is 133/74 mmHg, pulse ox 95% on room air and respiratory rate of 23. Patient is awake, interactive, following commands and moving all 4 extremities. [facility] firingNonsustained ventricular tachycardiaHistory of left atrial clot on EliquisPatient received Amiodarone bolus 150 mg followed by amiodarone drip per protocolCurrently on 0.5 mg/hMagnesium is borderline low at 2.04 mg/dLGive 1 g of Magnesium SulfateCheck ionized calcium continue home medication that includes metoprolol XL and EliquisKeep n.p.o. for nowGlycemic control with insulin sliding scale coverageHold long acting insulin at this time as patient is NPOPatient will be followed by CardiologyVital signs are stablePatient is alert orient x 4 DVT prophylaxis: On Eliquis Alex Ley [facility] pm at 0614 RPT #:[id number] OF REPORTBNDmojvgenufim1563-95-11J78:05:00G.PDOC2 [id number] for patient tmpsNWKDTPKZWMVQEZ0291-74-55W24:14:46 HCACL 2023-12-27 12:20:00 [id number] uh6BWCmGL32OU0zjLjTCct3a8J93504-09-37Z44:20:00 [facility] ([facility] PROVIDER REPORTREPORT#:[id number] REPORT STATUS: SignedDATE:12/27/23 TIME: 1220 PATIENT: CHARAN RESTREPO UNIT #: [id number]#: [id number] [address]GE: 53 SEX: M PCP PHYS: Jesusita Osuna MDSERVICE AUTHOR: Margarito Ricks MD * ALL edits or amendments must be made on the electronic/computer document * HPI-Chest Pain 40 and Over GeneralInitial Greet Date/Time 12/27/23 1213 PresentationChief Complaint Chest painSudden in Onset? No Free Text HPI NotesFree Text HPI NotesPatient is a 53-year-old male present with chief concern of chest pain and arrhythmia. Patient notes that he is supposed to have a pacemaker defibrillator. Patient notes that he currently does not have a PCP and is unsure of the name of the wool broker that he is supposed to be following with. [facility] [place] [facility]. Patient was found to have arrhythmia with runs of V. tach. Patient underwent amiodarone bolus 150 mgbolus infused over 10 minutes as well as amiodarone drip at 1 mg/min. Patient arrives rate controlled at this time. Patient notes that his pacemaker defibrillator stopping from firing to correct his arrhythmia. Patient has been on Eliquis because he was told that he has a blood clot and the plan was to dissolve the blood clot before CABG that was supposed to be performed. Patient arrives via EMS as transfer from outside facility. At the outside facility patient had CBC that revealed white blood cell count 9.6, within normal limits, hemoglobin 16.8, with normal limits hematocrit 48.6, within normal limits, platelet count 205, within normal limitsPatient sodium stable 138 potassium stable at 3.9 chloride stable at 108, slightly above the upper limit of normalCO2 26, within normal limits, anion gap 7.9, within normal limits, glucose 234, elevated, BUN 21 creatinine 1.07 GFR 82 patient with BNP slightly elevated at 517 troponin 15.1, within normal limits patient with chest x-ray that revealed no acute abnormality. Patient presents with consultation from November 26, 2023 with cardiology consultation from Dr. Pepe Rodriguez Where there is recommendation revascularization Risk-Chest Pain 40 and Over Risk Stratification)( HEART for MACE )( HEART for MACE Response Value History Low index of suspicion 0 ECG Interpretation Nonspec repol disturb 1 Age Age 45 - 65 1 Risk Factors for CAD 1-2 CAD risk factors 1 Troponin < or = to NL troponin 0 Total 3 HEART Score for MACE 0-3 (low risk 0.9%-1.7%) HEART Score Reference Resource material only. Click 'Cancel' button and information will not be inserted into or become part of the medical record Risk factors considered for determining a patient's HEART Score include: hypercholesterolemia (hyperlipidemia), hypertension, diabetes mellitus, cigarette smoking, positive family history and obesity. Major Adverse Cardiac Events (MACE) include: acute myocardial infarction, ischaemic stroke, coronary arterial occlusion and . References:Leif AJ, Bindu BE, et al. Chest pain in the emergency room: value of the HEART score. Neth Heart J. 2008 Tim:16(6):191-6. PubMed PMID: 87108567; PubMed CentralPMCID: [id number]. Anniston BE, Six AJ, et al. A prospective validation of the HEART score for chest pain patients at the emergency department. Int J Cardiol. 2013 Jul 3:168(3):2153-8. Doi: 10.1016/j.ijcard.2013.01.255. Epub 2012Dec 26. PubMed PMID: 16591123. Review of Systems Free Text ROS NotesFree Text ROS Notes1.Constitutional: No fever, No chills, No weight loss, No fatigue2. Head: No trauma, or No Headache3. Eyes: No eye pain, No eye redness4. Ears, nose, mouth, throat: no sore throat, no ear pain, no tooth pain, no nasal congestion5. Cardiovascular: Endorses chest pain or discomfort, no palpitations6. Respiratory: no lfytncoht-do-dymooq, no cough7. GI: No nausea, no vomiting, no diarrhea, no constipation, no abdominal pain8 .: Denies dysuria, No hematuria, denies flank pain, denies reproductive organ pain/discomfort8. Musculoskeletal: no muscle pain, no swelling9. Skin: No rash, no adhebfm79. Neurologic: No weakness or numbness.11.Back: No Back Pain, No back sfckho53. Psychiatric: No suicidal ideation, No homicidal Ideation, no hallucinations Past Medical History - AdultStated Complaint VTACH, CHEST PAINAllergiesCoded Allergies:No Known Allergies (03/18/23) Home MedicationsActive ScriptsATORVASTATIN (LIPITOR) 40 MG PO BEDTIME ATORVASTATIN (LIPITOR) 40 MG PO BEDTIME #30 TAB Prov: 03/20/23METOPROLOL SUCC XL (TOPROL XL) 25 MG PO DAILY METOPROLOL SUCC XL (TOPROL XL) 25 MG PO DAILY #30 TAB Prov: 03/20/23ASPIRIN 81 MG PO DAILY ASPIRIN 81 MG PO DAILY #30 TAB Prov: 03/20/23APIXABAN (ELIQUIS) 5 MG PO BID APIXABAN (ELIQUIS) 5 MG PO BID #60 TAB Prov: 12/03/23NITROGLYCERIN (NITROSTAT) 0.4 MG SL Q5M PRN PRN CHEST PAIN NITROGLYCERIN (NITROSTAT) 0.4 MG SL Q5M PRN PRN CHEST PAIN #30 TAB Prov: 12/03/23INSULIN GLARGINE (LANTUS SOLOSTAR (15mL)) 20 UNITS SUBQ BEDTIME INSULIN GLARGINE (LANTUS SOLOSTAR (15mL)) 20 UNITS SUBQ BEDTIME #15 ML Prov: 12/03/23 Past Medical History:Reports: Coronary artery disease, Diabetes mellitus. Past Surgical History:Reports: (Left Tib, Fib). Family History:Denies: CAD < 40 yrs old. 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 Physical Exam Vital SignsVital SignsFirst Documented: Result Date Time Pulse Ox 100 03/ 1205 B/P 139/78 03/ 1205 B/P Mean 98 03/ 1205 O2 Delivery Room air 03/ 1205 Temp 37.0 03/ 1205 Pulse 72 03/ 1205 Resp 16 03/ 1205 Last Documented: Result Date Time Pulse Ox 98 03/ 1432 B/P 128/78 03/ 1432 B/P Mean 98 03/ 1432 Pulse 62 03/ 1432 Resp 16 03/ 1432 O2 Delivery Room air 03/ 1205 Temp 37.0 03/ 1205 Review of Vital Signs Reviewed Free Text PE NotesFree Text PE NotesGeneral Appearance: Alert, Oriented, Resting Comfortably, No Apparent DistressEyes: Normal Inspection, PERRL, EOMIHead Ears Nose and Throat: Normocephalic, Atraumatic, Normal ENT inspectionNeck: Supple, Normal InspectionLymphatic: No lymphadenopathyRespiratory: Lungs Clear to auscultation bilaterallyCardiovascular: Regular Rate, Regular Rhythm, No Murmur, No RubsPeripheral Pulses: DP/PT pulses normal bilaterally Normal: Left Carotid, Lower Extremities, Right CarotidAbdomen: Soft, Non-Tender, Non-Distended, Normal Bowel Sounds, No Organomegaly,No GuardingExtremities: No Clubbing, No Cyanosis, No EdemaPsych/Mental Status: Normal AffectNeurologic: Alert, Oriented to Person, Oriented to Place, Oriented to Time, Cranial Nerves II - XII Intact, Follows commandsMotor/Sensory: No Motor Deficit, No Sensory DeficitSkin: Warm/Dry, Normal Color, No Rashes Interpretation Diagnostics Lab Results InterpretationConsiderations Independ review imagingResultsLaboratory Tests 12/27/23 1225:[Embedded Image Not Available]Laboratory Tests: 12/26 12/26 1225 1225 Chemistry Sodium (134 - 147 mEq/L) 138 Potassium (3.4 - 5.0 mEq/L) 4.4 Chloride (100 - 108 mEq/L) 107 Carbon Dioxide (21 - 33 mEq/l) 28 Anion Gap (0 - 20) 8 BUN (7 - 25 mg/dL) 18 Creatinine (0.6 - 1.3 mg/dL) 1.1 Glomerular Filtr Rate (90 - 95) 79.8 L Glucose (77 - 141 mg/dL) 197 H Calcium (8.0 - 10.5 mg/dL) 9.2 Magnesium (1.6 - 2.6 mg/dL) 2.04 Total Bilirubin (0.0 - 1.0 mg/dL) 0.60 Direct Bilirubin (0.1 - 0.3 MG/DL) 0.20 Indirect Bilirubin (MG/DL) 0.40 AST (8 - 34 IUnit/L) 18 ALT (10 - 49 IUnit/L) 17 Total Alk Phosphatase (20 - 125 IUnit/L) 79 CK-MB (CK-2) (0 - 5.0 ng/mL) 0.1 Troponin I High Sens (0 - 54 ng/L) 12 B-Natriuretic Peptide (0 - 100 PG/ML) 66.0 Total Protein (6.4 - 8.2 g/dL) 6.9 Albumin (3.4 - 5.0 g/dL) 4.20 Lipase (13 - 57 U/L) 37 TSH (0.42 - 5.47 IU/mL) 3.92 Hematology WBC (4.5 - 11.0 x10 3/uL) 10.9 RBC (4.00 - 5.60 x10 6/uL) 5.90 H Hgb (12.5 - 16.9 g/dL) 17.1 H Hct (37.5 - 50.7 %) 51.1 H MCV (81.0 - 99.0 fL) 86.6 MCH (27.0 - 33.0 pg) 29.0 MCHC (33.0 - 37.0 g/dL) 33.5 RDW (11.5 - 14.5 %) 13.6 Plt Count (150 - 400 x10 3/uL) 217 MPV (7.0 - 9.0 fL) 10.3 H Neut % (Auto) (56.0 - 77.0 %) 68.2 Lymph % (Auto) (14.0 - 32.0 %) 19.3 Marion % (Auto) (4.8 - 9.0 %) 8.3 Eos % (Auto) (0.3 - 3.7 %) 2.8 Baso % (Auto) (0.0 - 2.0 %) 0.7 Neut # (Auto) (2.0 - 7.6 x10 3/uL) 7.42 Lymph # (Auto) (1.0 - 3.8 x10 3/uL) 2.10 Marion # (Auto) (0.1 - 0.8 x10 3/uL) 0.90 H Eos # (Auto) (0.0 - 0.2 x10 3/uL) 0.31 H Baso # (Auto) (0.0 - 0.2 x10 3/uL) 0.08 Abs Immat Gran (auto) (0.00 - 0.03 x10 3/uL) 0.08 H Immature Gran % (0.0 - 2.0 %) 0.7 Nucleated RBC % (0 - 0 %) 0.0 Nucleated RBCs # (Man) (0.0 - 0.1 x10 3/uL) 0.00 Recent Impressions:RADIOLOGY - XR CHEST 1 V 12/26 1246 Report Impression - Status: SIGNED Entered: 12/27/2023 1303 IMPRESSION:No acute cardiopulmonary process. Impression By: Brinda - Michelle Whitman M.D. Lab Imaging StatementLaboratory radiographic studies reviewed and considered in the medical decision-making. ECG #1 InterpretationText/Dict NoteEKG INTERPRETATIONRhythm: Normal sinus rhythmVentricular Rate: 63 BPMPR: 174 msQRS: 102 msQTC: 405 msAxis: LeftST elevation: NoneST depression: NoneT wave inversion(s): None, flattening appreciated in 2 and aVFRSR prime morphology appreciated leads II, III and aVF Date 12/27/23Time 1223Interpreted by and reviewed by me, Independently interpreted, ED physician Re-Evaluation MDM Free Text MDM NotesFree Text MDM NotesPatients PCP is Dr. Osuna Patient Romi Lloyd ASA PPO patient will be admitted to unassigned and care. Could not find Patients PCP Dr. Osuna in PCP provider preference booklet. Patient unassigned and will admit to [facility]. [facility] Capped. Will admit to [facility]. ED CourseMedication(s) OrderedMedication(s) Ordered:Cardiovascular Drugs Sig/Marie Start time Last Medication Dose Route Stop Time Status Admin Hydralazine HCl 10 MG Q2H PRN PRN 12/26 1515 DC IV 12/27 1414 Amiodarone HCl 450 MG X1ED STA 12/26 1254 AC 12/26 Dextrose/Water 250 ML IV 01/06 0753 1325 Central Nervous System Agents Sig/Marie Start time Last Medication Dose Route Stop Time Status Admin Acetaminophen 650 MG Q4H PRN PRN 12/26 1515 DC PO 12/27 1414 Ketorolac 15 MG Q6H PRN PRN 12/26 1515 DC Tromethamine IV 12/27 1414 Morphine Sulfate 4 MG Q4H PRN PRN 12/26 1515 DC 08 IV 12/27 1414 0934 Electrolytic, Caloric, And Mercedes Sig/Marie Start time Last Medication Dose Route Stop Time Status Admin Dextrose/Water 125 ML ASDIR PRN 12/26 1515 DC IV 12/27 1414 Dextrose/Water 250 ML ASDIR PRN 12/26 1515 DC IV 12/27 1414 Sodium Chloride 1,000 ML .Q10H 12/26 1515 DC 12/26 IV 12/27 1414 1855 Gastrointestinal Drugs Sig/Marie Start time Last Medication Dose Route Stop Time Status Admin Ondansetron HCl 4 MG Q6H PRN PRN 12/26 1515 DC 12/26 IV 12/27 1414 1911 Hormones And Synthetic Substit Sig/Marie Start time Last Medication Dose Route Stop Time Status Admin Insulin Human Lispro 0 AC HS 12/26 1630 DC SUBQ 12/27 1414 Glucagon 1 MG ASDIR PRN 12/26 1515 DC IM 12/27 1414 Patient Discharge Departure Vital Signs/ConditionVital SignsFirst Documented: Result Date Time Pulse Ox 100 12/26 1205 B/P 139/78 03/ 1205 B/P Mean 98 12/26 1205 O2 Delivery Room air / 1205 Temp 37.0 03/ 1205 Pulse 72 / 1205 Resp 16 12/26 1205 Last Documented: Result Date Time Pulse Ox 98 12/26 1432 B/P 128/78 03/ 1432 B/P Mean 98 12/26 1432 Pulse 62 / 1432 Resp 16 12/26 1432 O2 Delivery Room air 12/26 1205 Temp 37.0 12/26 1205 All vital signs available at the time of this entry have been reviewed. Condition Stable, Critical Clinical ImpressionClinical ImpressionPrimary Impression: V tachSecondary Impressions: Chest pain [facility] Hospitalist Request Time 151 Request Date 12/27/23 )( Accepts Hospitalization Yes )( Reason for HospitalizationChest pain, V. tach, on amiodarone )( Accepted Time 151 )( Accepted Date 12/27/23 Call Information will see patient Critical CareTime Spent (minutes): 34Services Performed Patient management by me, Time spent at bedside, Reviewing test results, Reviewing imaging, Discussing patient care, Documentation in record, Time with fam/surrogateSeparately billable procedures excluded from time.Patient was critically ill due to:Arrhythmia requiring amiodarone infusionMy treatment and management were:Amiodarone infusion CC Note 1Total critical care time 34 minutes. Total critical care time documented does not include time spent on separately billed procedures or the services of residents, students, nurses or physician assistants. I personally saw and examined the patient. I have reviewed all diagnostic interpretations and treatment plans as written. I was present for the gomez portions of any proceduresperformed and the inclusive time noted in any critical care statement. Critical care time includes patient management by me, time spent at the patients bedside,time to review lab and imaging results, discussing patient care, documentation in the medical record, and time spent with the family or caregiver. at 2222RPT #:[id number] OF REPORTEncompass Health Rehabilitation Hospital hxkxeg5612-08-17D90:20:00G.XNUY18484390-5652RVTvv ilable for patient yphuYMBVPINFTQSWFN6482-86-43N22:23:15 [facility] 2023-12-03 14:50:00 [id number] WnW9esR664UFdlFrtw80nGT21fp6h OtRwB8rfY5Giw2JuWo3lnlWHlwG0500-49-21N47:50:00 [facility] CentralHospital[facility] Discharge SummaryREPORT#:[id number] REPORT STATUS: SignedREPORT INITIALIZATION DATE:12/03/23 TIME: 145 PATIENT: CHARAN RESTREPO UNIT #: [id number]#: [id number] [address] [birth year] AGE: 53 SEX: M ATTEND: [...] in 2 weeks Consultants: cardiology, cardiovascular surgery, critical/residential designer, hospitalist Free Text DxA P NotesFree text [...] Pulse Ox 96 12/03 1000 B/P 141/67 02/ 1000 B/P Mean 96 / 1000 Pulse 75 02/ 1000 Resp 16 12/03 1000 O2 Delivery [...] distentionExtremities: moves all, no calf tenderness, no edemaNeuro/PLASTICS 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, oriented X 3, CNII-XII intact, normal [...] % (Auto) (14.0 - 32.0 %) 22.2 Marion % (Auto) (4.8 - 9.0 %) 9.9 H Eos % (Auto) (0.3 - 3.7 %) 4.4 H Baso % (Auto) (0.0 - 2.0 %) 1.3 Neut # (Auto) (2.0 - 7.6 x10 3/uL) 4.87 Lymph # (Auto) (1.0 - 3.8 x10 3/uL) 1.77 Marion # (Auto) (0.1 - 0.8 x10 3/uL) [...] to: Home/Self CareAdditional Discharge Routines: PCP Follow-Up, Oxygraph Operator Follow-UpDiet: Diabetic, CardiacActivity: As Tolerated Follow-up AppointmentsPCP [...] the best of my knowledge. at 1851 RPT #:[id number] OF REPORTDSDischarge aiyhdxa9266-54-51B29:50:00G.UQRS19816533-5632YBSv ailable for patient mwkdUKKPCITSUJTANZ6836-39-63H59:51:48 [facility] 2023-12-03 12:42:00 [id number] NxMXBJ7zX48yZPSGiJg9kTa/JlJWi 5buFOz8jqLrsrP0n3/2o94W+CdT9211-18-96I84:42:00 [facility]Cardi[facility] ProgREPORT#:[id number] REPORT STATUS: SignedREPORT INITIALIZATION DATE:12/03/23 TIME: 124 PATIENT: CHARAN RESTREPO UNIT #: [id number]#: [id number] [address] [birth year] AGE: 53 SEX: M ATTEND: [...] 75 12/03 1000 Resp 16 12/03 1000 Temp 36.5 [...] foleyExtremities: dry, moves allMusculoskeletal: full range of motionNeuro/PLASTICS 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, oriented X 3Skin: dry, intact, normal [...] % (Auto) (14.0 - 32.0 %) 22.2 Marion % (Auto) (4.8 - 9.0 %) 9.9 H Eos % (Auto) (0.3 - 3.7 %) 4.4 H Baso % (Auto) (0.0 - 2.0 %) 1.3 Neut # (Auto) (2.0 - 7.6 x10 3/uL) 4.87 Lymph # (Auto) (1.0 - 3.8 x10 3/uL) 1.77 Marion # (Auto) (0.1 - 0.8 x10 3/uL) [...] ML ASDIR PRN 11/27 1300 CKD IV 05/06 1259 Dextrose/Water 250 ML ASDIR PRN 11/27 [...] past, hypertension, diabetes, hyperlipidemia who presented to [facility] with complaints of chest pains. He previously underwent left heart catheterization about 1 month ago and was referred for bypass surgery in the outpatient setting however he did not get hisoutpatient appointment yet. The patient reports back to the hospital with complaints of chest pains radiating to the left arm. 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 [...] response to plavix 117, [facility] [place] uploaded-will reviewContinue preop workupI will [...] the operating room where during the intraoperative AANND there is some suspicion for thrombus, after talking with the patient's wool broker we decided to cancel surgery due to the increase risk of thromboembolic event. Procedure cancelled today and CTA heart ordered for further evaluation 12/01/23Patient doing wellCTA heart reviewed, report pendingStop heparin and start eliquis 5 mg BIDDiscontinue central lineDiscussed plan of care with wool broker and will hold off on surgery due [...] all questions answered Consultants: cardiology, cardiovascular surgery, critical/residential designer, hospitalist at 1202 RPT #:[id number] OF REPORTPRProgress rhlp6299-17-23P87:42:00G.VQGN01915623-0424VDFnfbl able for patient xmkcXEDBJSWGOHYEFA5908-24-60M67:03:20 [facility] 2023-12-03 08:30:00 [id number] GFhcpQw/B72UPkzeSrMkd4MJthQWU 4nnR27NDHLqlWAIoGG8om9i3uHP9685-56-69C73:30:00 [facility] ([facility]ITALCardiology Progress NoteREPORT#:[id number] REPORT STATUS: SignedREPORT INITIALIZATION DATE:12/03/23 TIME: 829 PATIENT: CHARAN RESTREPO UNIT #: [id number]#: [id number] [address] [birth year] AGE: 53 SEX: M ATTEND: Papo Mayfield MDADM AUTHOR: Merlene Rutherford MDREPT SERVICE DT/TIME: 12/03/23 [...] 12/03 0100 58 15 129/65 88 96 02 0000 60 15 124/71 90 97 02 2300 57 13 138/65 94 94 02 2200 56 13 135/63 91 93 02/ 2107 65 18 136/67 94 95 02 2030 61 16 117/61 84 94 021999 97.6 12/02 1999 62 12 121/62 86 92 02 1930 64 14 119/63 86 91 02 1900 65 16 120/59 83 92 02 1830 66 14 117/61 83 92 02 1800 66 15 121/61 83 92 02 1730 60 16 116/63 81 93 02 1700 66 22 147/73 104 95 02 1630 61 13 128/65 89 95 02 1600 97.9 02 1600 71 14 125/65 90 93 02 1531 57 14 101/49 71 96 12/02 1530 61 15 91 02 1500 61 15 119/62 84 93 02 1430 63 16 125/70 90 93 02 1400 66 17 134/66 93 94 12/02 1330 62 14 111/61 81 95 12/02 1300 60 15 118/64 84 95 02 1230 64 14 129/65 91 98 02 1200 98.0 12/02 1200 69 24 147/75 103 96 12/02 1130 54 14 122/64 88 96 02 1100 58 14 124/58 83 94 12/02 1031 56 12 99/50 71 92 12/02 1001 58 13 107/53 76 94 12/02 0930 62 16 122/64 87 94 02 0901 63 15 136/71 96 95 PATIENT [...] sounds, no distentionLower extremity: LE assessment: no edemaNeuro/PLASTICS 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, oriented X 3, no motor deficitsSkin: dry, intact, normal colorPsychiatry: normal affect, normal judgment/insight, normal mood ResultsFindings/Data:Laboratory Tests 12/03 12/03 12/02 12/02 0714 0440 2043 1624 Chemistry Sodium (134 - 147 [...] % (Auto) (14.0 - 32.0 %) 22.2 Marion % (Auto) (4.8 - 9.0 %) 9.9 H Eos % (Auto) (0.3 - 3.7 %) 4.4 H Baso % (Auto) (0.0 - 2.0 %) 1.3 Neut # (Auto) (2.0 - 7.6 x10 3/uL) 4.87 Lymph # (Auto) (1.0 - 3.8 x10 3/uL) 1.77 Marion # (Auto) (0.1 - 0.8 x10 3/uL) [...] NotesFree Text DxA P Notes:1. 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 Okay to be discharged from cardiac standpoint, follow-up with Dr. Rodrigeuz this week. at 2048 RPT #:[id number] OF REPORTPRProgress jczj2303-45-29H49:30:00G.KFVD08424075-7322LTFevae able for patient kozoKOGLQWCFABSOEM8801-80-21O30:48:50 [facility] 2023-12-02 12:48:00 [id number] FJSvrgqSO/CV7+4x27KNSUFO7+snu l+kp/QT59eIQbneW3B6XiC6HfBS9900-17-97Y25:48:00 [facility] ([facility])Hospitalist Progress NoteREPORT#:[id number] REPORT STATUS: SignedREPORT INITIALIZATION DATE:12/02/23 TIME: 1247 PATIENT: CHARAN RESTREPO UNIT #: [id number]#: [id number] [address] [birth year] AGE: 53 SEX: M ATTEND: [...] 12/02 0800 59 13 110/59 79 95 12/02 0730 70 50 134/74 98 96 12/02 0701 68 15 130/67 93 96 12/02 0501 73 28 139/67 96 95 12/02 0412 55 13 97/57 70 95 12/02 0401 53 13 85/42 60 96 12/02 0331 52 13 95/52 70 96 12/02 0300 55 9 102/50 72 95 12/02 0230 58 13 118/59 82 94 12/02 0200 60 14 114/57 78 96 12/02 0116 65 16 134/69 95 95 12/02 0100 56 13 110/56 79 93 12/02 0044 63 12 113/59 79 95 12/01 2247 36.8 61 13 128/66 0.0 95 Room air 12/01 2115 36.5 69 13 154/70 0.0 96 Room air 12/01 2102 75 40 113/74 87 95 10 2100 60 32 119/71 91 97 12/01 2000 36.8 02 2000 56 13 110/60 79 97 02/10 1931 100 Room air 21 0210 1900 53 13 111/59 79 96 02/10 1800 54 12 111/58 77 95 02/10 1700 56 14 122/62 86 96 02/10 1600 55 21 121/67 89 97 02/10 1500 57 18 120/65 86 97 02/10 1400 62 14 120/63 86 95 12/01 [...] distentionExtremities: moves all, no calf tenderness, no edemaNeuro/PLASTICS 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, oriented X 3, CNII-XII intact, normal [...] % (Auto) (14.0 - 32.0 %) 21.8 Marion % (Auto) (4.8 - 9.0 %) 7.4 Eos % (Auto) (0.3 - 3.7 %) 4.0 H Baso % (Auto) (0.0 - 2.0 %) 0.7 Neut # (Auto) (2.0 - 7.6 x10 3/uL) 6.35 Lymph # (Auto) (1.0 - 3.8 x10 3/uL) 2.11 Marion # (Auto) (0.1 - 0.8 x10 3/uL) [...] catheter Diagnosis, Assessment PlanConsultants: cardiology, cardiovascular surgery, critical/residential designer, hospitalist Free Text DxA P NotesFree text [...] -- continue current management at 2017 RPT #:[id number] OF REPORTPRProgress qmax7330-07-97K40:48:00G.OFFT90254180-1433SRDwkpl able for patient cupbCFLBYYFCMANHQT1980-90-79R24:17:49 [facility] 2023-12-02 12:09:00 [id number]+c9F/Vxz 9UaGFFn3PiAcyQLp/RfxO7dJJCwhv /+oZOL/Hl9ufKNkKOffJxRw5pHY7313-84-75S36:09:00 [facility] ([facility])Critical Care Progress NoteREPORT#:[id number] REPORT STATUS: SignedREPORT INITIALIZATION DATE:12/02/23 TIME: 1209 PATIENT: CHARAN RESTREPO UNIT #: [id number]#: [id number] [address] [birth year] AGE: 53 SEX: M ATTEND: Papo Mayfield MDADM AUTHOR: Michelle GalvezPREPT SERVICE DT/TIME: 12/02/23 1209* ALL edits or amendments must be made on the electronic/computer document * SubjectiveChief complaint:Chest PainHPI:53-year-old gentleman with past medical history of coronary artery disease status post previous PCI in the past, hypertension, diabetes, hyperlipidemia whotransferred from [facility] to [facility] for CABG evaluation. Objective GeneralVS/I OLast Documented: Result Date Time Pulse Ox 96 12/02 1200 B/P 147/75 12/02 1200 B/P Mean [...] limited by sedation. Diagnosis, Assessment PlanFree text A P:53-year-old gentleman with past medical history of coronary artery disease status post previous PCI in the past, hypertension, diabetes, hyperlipidemia whotransferred from [facility] to [facility] for CABG [...] tele floor. 12/02/23:Transfer to CCU last night 2/ to chest pain. On Nitro drip. Currently [...] critical care spent. Consultants: cardiology, cardiovascular surgery, critical/residential designer, hospitalist Quality: Gen Med Crit Care Current [...] best of my knowledge. at 1222 RPT #:[id number] OF REPORTPRProgress krjm4410-79-66Z54:09:00G.TINT67629645-1752CRVssiw able for patient uvjdUAHOHBBZAAYSOS0740-03-30B67:23:09 [facility] 2023-12-02 11:59:00 [id number]+5 2oAmSOim6tj+4KuBGi3swTATxLRrA 6h3gvAmZ5su0unWqb/wTq2JCYRn1444-73-29T23:59:00 [facility] ProgREPORT#:[id number] REPORT STATUS: SignedREPORT INITIALIZATION DATE:12/02/23 TIME: 1159 PATIENT: CHARAN RESTREPO UNIT #: [id number]#: [id number] ROOM[facility]BED: [facility]DOB: [birth year] AGE: 53 SEX: M ATTEND: Papo [...] 0730 Pulse 70 12/02 0730 Resp 50 12/02 0730 O2 Delivery Room air 12/01 2247 [...] foleyExtremities: dry, moves allMusculoskeletal: full range of motionNeuro/PLASTICS 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, oriented X 3Skin: dry, intact, normal [...] 12/02 12/02 12/02 12/01 1145 0725 0259 9 Chemistry Sodium (134 - 147 mEq/L) 136 [...] % (Auto) (14.0 - 32.0 %) 21.8 Marion % (Auto) (4.8 - 9.0 %) 7.4 Eos % (Auto) (0.3 - 3.7 %) 4.0 H Baso % (Auto) (0.0 - 2.0 %) 0.7 Neut # (Auto) (2.0 - 7.6 x10 3/uL) 6.35 Lymph # (Auto) (1.0 - 3.8 x10 3/uL) 2.11 Marion # (Auto) (0.1 - 0.8 x10 3/uL) [...] past, hypertension, diabetes, hyperlipidemia who presented to [facility] with complaints of chest pains. He previously underwent left heart catheterization about 1 month ago and was referred for bypass surgery in the outpatient setting however he did not get hisoutpatient appointment yet. The patient reports back to the hospital with complaints of chest pains radiating to the left arm. 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 [...] for thrombus, after talking with the patient's wool broker we decided to cancel surgery due to the increase risk of thromboembolic event. Procedure cancelled today and CTA heart ordered for further evaluation 12/01/23Patient doing wellCTA heart reviewed, report pendingStop heparin and start eliquis 5 mg BIDDiscontinue central lineDiscussed plan of care with wool broker and will hold off on surgery due [...] cardiologyAll questions answered. Consultants: cardiology, cardiovascular surgery, critical/residential designer, hospitalist at 1250 RPT #:[id number] OF REPORTPRProgress senl8406-38-13P31:59:00G.SLQD61759087-9471HBXtplx able for patient osffZVKEMKUFEFGBDC7157-95-11Q78:51:18 [facility] 2023-12-02 02:48:00 [id number] zyx+pesOvHaE9iQfUKnopoR0rSAIZ p5tQY05hjM6Mgq1g6Vzyel/YIBO9363-50-18A29:48:29479 0-[address] [address] PATIENT NAME: CHARAN RESTREPO ADMIT DATE: 11/27/23ACCOUNT NO: [id number] ROOM NO: [facility] AGE: 53 REPORT TYPE: eELECTROCARDIOGRAM REPORT SEX: M ADMITTING PHYSICIAN:Papo Mayfield MD ATTENDING PHYSICIAN:Papo Mayfield MD Order:[id number] Reason : CP Test Date/Time Stamp:[place] Dec 02 2023 02:48:41Blood Pressure : / mmHGVent. Rate : 053 BPM Atrial Rate : 053 BPM P-R Int : 164 ms QRS Dur : 114 ms QT Int : 408 ms P-R-T Axes : 039 -43 073 degrees QTc Int : 382 ms Sinus bradycardiaLeft axis deviationMinimal voltage criteria for LVH, may be normal variant ( Rg product )Inferior infarct (cited on or before 18-MAR-2023)Anterolateral infarct (cited on or before 18-MAR-2023)Abnormal ECGWhen compared with ECG of 27-NOV-2023 06:38,No changesConfirmed by MD VI, HIMANSHU ([id number]) on 01/09/2024 1:25:08 PM Referred By: Papo Mayfield Confirmed by:HIMANSHU LEBRON MD at 1325 PATIENT NAME: CHARAN RESTREPO .[id number] AVAvailable for patient ccihPSXJIQMSYOYJVU8675-09-84U82:25:41 [facility] 2023-12-01 13:03:00 [id number] /2f7XSw+JLfIKu8rUE8WRH2WoK5yN 7q+TWBrI0j10gUI8BdtAn/egoOI0084-93-72W24:03:00 [facility] ProgREPORT#:[id number] REPORT STATUS: SignedREPORT INITIALIZATION DATE:12/01/23 TIME: 1303 PATIENT: CHARAN RESTREPO UNIT #: [id number]#: [id number] ROOM/BED: [facility]DOB: [birth year] AGE: 53 SEX: M ATTEND: Papo [...] Documented: Result Date Time Temp 36.8 12/01 08 Pulse Ox 97 12/01 0700 B/P 136/68 12/01 0700 B/P Mean 94 12/01 0700 Pulse 65 / 0700 Resp 18 12/01 0700 FiO2 21 11/30 1913 O2 Delivery Room air 11/30 191 O2 Flow Rate 2 11/27 0800 24 hour I O ending at 0700: [...] foleyExtremities: dry, moves allMusculoskeletal: full range of motionNeuro/PLASTICS 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, oriented X 3Skin: dry, intact, normal [...] ResultsFindings/Data:Laboratory Tests 12/01 12/01 12/01 11/30 1036 9858 1387 9586 Chemistry Sodium (134 - 147 mEq/L) 138 [...] 2.06 Laboratory Tests 12/01 2146 Coagulation PTT ([place]) (25.0 - 39.5 Seconds) 27.8 58.8 H [...] (Auto) (14.0 - 32.0 %) 8.1 L Marion % (Auto) (4.8 - 9.0 %) 6.9 Eos % (Auto) (0.3 - 3.7 %) 0.5 Baso % (Auto) (0.0 - 2.0 %) 0.4 Neut # (Auto) (2.0 - 7.6 x10 3/uL) 10.26 H Lymph # (Auto) (1.0 - 3.8 x10 3/uL) 1.00 Marion # (Auto) (0.1 - 0.8 x10 3/uL) [...] reviewed, vital signs stable, rythm personally rev'd, current med profile rev'd Quality: Trauma Gen Surg Current MedicationsCurrent medication review: Current Medications Sig/Marie Start time Last Medication Dose Route Stop Time Status Admin Atorvastatin Calcium 40 MG BEDTIME 11/27 2100 AC PO 12/26 205 Insulin Human Lispro 0 AC HS 11/27 [...] past, hypertension, diabetes, hyperlipidemia who presented to [facility] with complaints of chest pains. He previously underwent left heart catheterization about 1 month ago and was referred for bypass surgery in the outpatient setting however he did not get hisoutpatient appointment yet. The patient reports back to the hospital with complaints of chest pains radiating to the left arm. 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 [...] for thrombus, after talking with the patient's wool broker we decided to cancel surgery due to the increase risk of thromboembolic event. Procedure cancelled today and CTA heart ordered for further evaluation 12/01/23Patient doing wellCTA heart reviewed, report pendingStop heparin and start eliquis 5 mg BIDDiscontinue central lineDiscussed plan of care with wool broker and will hold off on surgery due to thrombus, repeat echo in 3 months to reevaluate, continue blood thinners, no surgical intervention at this timeFollow up with cardiology for management of chest painPatient verbalized understanding and all questions answered. Consultants: cardiology, cardiovascular surgery, critical/residential designer, hospitalist at 1249 RPT #:[id number] OF REPORTPRProgress sdvu6110-00-09A53:03:00G.PPOV85330812-3625LNIjqxc able for patient vbxsJPKIJYSYXVAQJY5659-96-31R76:50:27 [facility] 2023-12-01 12:02:00 [id number] K4X/5/ioqMBEsgoW989/V41vkrxtz JlaihZ0CQCnWpv9KPAGkBmU8tqI9423-03-49V11:02:00 [facility] ([facility])Critical Care Progress NoteREPORT#:[id number] REPORT STATUS: SignedREPORT INITIALIZATION DATE:12/01/23 TIME: 120 PATIENT: CHARAN RESTREPO UNIT #: [id number]#: [id number] [address] [birth year] AGE: 53 SEX: M ATTEND: Papo Mayfield MDADM AUTHOR: Michelle Galvez APRMONTEZPREPT SERVICE DT/TIME: 12/01/23 1202* ALL edits or amendments must be made on the electronic/computer document * SubjectiveChief complaint:Chest PainHPI:53-year-old gentleman with past medical history of coronary artery disease status post previous PCI in the past, hypertension, diabetes, hyperlipidemia whotransferred from [facility] to [facility] for CABG evaluation. Objective GeneralVS/I OLast Documented: Result Date Time Temp 98.3 12/01 0800 Pulse Ox 97 12/01 699 B/P 136/68 12/01 699 B/P Mean 94 [...] the past, hypertension, diabetes, hyperlipidemia whotransferred from [facility] to [facility] for CABG evaluation. 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 Per CTS transition to Eliquis 5 mg BID x 3 month-repeat ECHO in 3 month. No surgery until follow up ECHO. D/c right IJ-[facility]. Neuro:Awake and follows commandHOH CV:LV thrombusHeparin dripTo start Eliquis 5 mg PO BIDHLD-Atorvastatin Mutivessel DzMetoprolol 25 mg XLASA 81 mg Po dailySystolic and diastolic HF, LVEF 30-34% RESP:RACXR as neededNeb TX as needed GI/:VoidingPPIBowel regimen ENDO:Hx DMInsulin high doseLantus 5 units BID HEME:Heparin DripTransition to Eliquis ID:Mild elevation in WBCAfebrile 35 minutes of critical care spent. Consultants: cardiology, cardiovascular surgery, critical/residential designer, hospitalist Quality: Gen Med Crit Care Current MedicationsCurrent medication review: Current Medications Sig/Marie Start time Last Medication Dose Route Stop Time Status Admin Atorvastatin Calcium 40 MG BEDTIME 11/27 2100 AC PO 12/26 205 Insulin Human Lispro 0 AC HS 11/27 [...] best of my knowledge. at 1231 RPT #:[id number] OF REPORTPRProgress inqs3148-05-81M87:02:00G.ELHV68616073-8978WPAzivt able for patient jzvzWLELIYSFOYCSOJ2659-99-10Z33:11:26 [facility] 2023-12-01 12:02:00 [id number] GzKfYvx7ZmAFrEWTnYsEc4RbB3/eu 3xBnmCvxkco6ll5LdljofY0wm/71542-95-25Z65:02:00 [facility] Hospitalist Progress NoteREPORT#:[id number] REPORT STATUS: SignedREPORT INITIALIZATION DATE:12/01/23 TIME: 1202 PATIENT: CHARAN RESTREPO UNIT #: [id number]#: [id number] [address] [birth year] AGE: 53 SEX: M ATTEND: Papo Mayfield MDADM AUTHOR: Marilyn Mayfield MDREPT SERVICE DT/TIME: 12/01/23 [...] 12/01 0600 66 14 132/63 90 97 12/01 0550 36.6 12/01 0500 71 16 127/64 89 97 12/01 0400 69 15 131/63 90 97 12/01 0300 69 17 114/59 80 96 12/01 0200 71 14 124/65 87 96 12/01 0100 72 17 125/67 90 97 12/01 0000 70 16 128/62 87 97 11/30 2300 77 15 123/68 89 98 11/30 2200 72 14 117/62 83 96 02/ 2100 100 21 128/78 96 97 11/30 2008 36.4 11/30 1999 75 16 119/67 87 97 11/30 1913 98 Room air 21 11/30 1900 78 15 119/65 85 97 / 1817 89 38 98 02/ 1800 68 11 128/68 91 98 / 1730 69 15 96 11/30 1700 73 14 126/66 89 98 11/30 1630 84 26 100 11/30 1612 65 11 100 11/30 1601 79 42 148/82 107 98 / 1600 74 21 99 11/30 1531 66 127/66 91 99 11/30 1504 74 16 99 11/30 1500 75 14 98 11/30 1430 67 11 138/68 90 97 11/30 1400 207/94 130 / 1400 94 27 176/83 119 100 11/30 1340 83 100 50 11/30 1340 83 28 100 11/30 1330 68 12 119/65 84 99 11/30 1300 250/112 157 11/30 1300 109 21 211/114 155 100 11/30 1241 142/65 92 11/30 1241 61 12 141/77 103 100 11/30 1239 50 11/30 1239 100 Ventilator 50 24 hour I [...] distentionExtremities: moves all, no calf tenderness, no edemaNeuro/PLASTICS 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, oriented X 3, CNII-XII intact, normal [...] Tests 12/01 11/30 0414 2146 Coagulation PTT ([place]) (25.0 - 39.5 Seconds) 27.8 58.8 H [...] (Auto) (14.0 - 32.0 %) 8.1 L Marion % (Auto) (4.8 - 9.0 %) 6.9 Eos % (Auto) (0.3 - 3.7 %) 0.5 Baso % (Auto) (0.0 - 2.0 %) 0.4 Neut # (Auto) (2.0 - 7.6 x10 3/uL) 10.26 H Lymph # (Auto) (1.0 - 3.8 x10 3/uL) 1.00 Marion # (Auto) (0.1 - 0.8 x10 3/uL) [...] catheter Diagnosis, Assessment PlanConsultants: cardiology, cardiovascular surgery, critical/residential designer, hospitalist Free Text DxA P NotesFree text [...] he is hemodynamic stable at 2017 RPT #:[id number] OF REPORTPRProgress psri5104-44-51J78:02:00G.GLSI83039040-3170QIFljaq able for patient bhjtZEOJBRTXJSHRWU0427-75-04S90:21:41 [facility] 2023-11-30 13:13:00 [id number]/gUXnU oC+CiiVr/ONX/RBdRabvl/VBNCVEl 0GhZFTbwfgYVEhowFtF84HIRCLr2379-37-88Q86:13:00 [facility] ([facility])Critical Care Consult NoteREPORT#:[id number] REPORT STATUS: SignedREPORT INITIALIZATION DATE:11/30/23 TIME: 1312 PATIENT: CHARAN RESTREPO UNIT #: [id number]#: [id number] [address] [birth year] AGE: 53 SEX: M ATTEND: [...] the past, hypertension, diabetes, hyperlipidemia whotransferred from [facility] to [facility] for CABG evaluation. History - Adult longitudinalPast medical history:Reports: Coronary artery disease, Diabetes mellitus. Past surgical history:Reports: (Left Tib, Fib). Family history:Denies: CAD < 40 yrs old. 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 Objective Physical ExamVS/I O:Last Documented: Result Date Time FiO2 50 11/30 1239 Pulse Ox 100 11/30 1239 O2 Delivery Ventilator 11/30 1239 Pulse 135 11/30 0941 Resp 32 11/30 0941 B/P 122/67 11/30 0900 B/P Mean 89 11/30 0900 Temp 98.9 11/30 0717 O2 Flow Rate 2 11/27 0800 24 hour I O ending at 0700: [...] 20 ML .STK-MED ONE IV (DC) Rocuronium Nelson (ZEMURON) 0 .STK-MED ONE IV (DC) Aminocaproic [...] (Auto) (14.0 - 32.0 %) 22.3 25.0 Marion % (Auto) (4.8 - 9.0 %) 8.0 8.0 Eos % (Auto) (0.3 - 3.7 %) 4.7 H 4.9 H Baso % (Auto) (0.0 - 2.0 %) 1.2 1.0 Neut # (Auto) (2.0 - 7.6 x10 3/uL) 4.79 4.83 Lymph # (Auto) (1.0 - 3.8 x10 3/uL) 1.69 2.00 Marion # (Auto) (0.1 - 0.8 x10 3/uL) [...] NASAL: MRSA DNA Surveillance Screen - ORD11/28 1805 NASAL: MSSA Surveillance Screen - COMP11/28 1805 NASAL: MRSA DNA Surveillance Screen - COMP/1824 NASAL: MSSA Surveillance Screen - COMP/1824 NASAL: MRSA DNA Surveillance Screen - COMP Radiology data:Recent Impressions:RADIOLOGY - XR CHEST 1 V 11/30 1248 Report Impression - Status: SIGNED Entered: 11/30/2023 5258 IMPRESSION: Interval placement of endotracheal tube in right IJ central venousline in good position. No pneumothorax. Mild pulmonary edema.Impression By: [email or web address] Colleen Brizuela M.D. Results: labs reviewed, rhythm personally [...] amberOxygen: ventilatorVentilator: assist controlRASS Score: Copyright 2012 [facility], All rights reserved Copyright 2012 [facility], All rights reserved RASS Score: -2 Light [...] 11/30 1245 Active Consultants: cardiology, cardiovascular surgery, critical/residential designer, hospitalistPlan discussed with: spouse/partner, collaborating MD, nurse, pharmacy/pharmacist Code Status/Resusc. DiscussionCode status: full codeFree text DxA P:53-year-old gentleman with past medical history of coronary artery disease status post previous PCI in the past, hypertension, diabetes, hyperlipidemia whotransferred from [facility] to [facility] for CABG [...] of critical care spent. at 1826 RPT #:[id number] OF REPORTBFMqaprdyvrpqt5685-51-42E39:13:00G.PDOC2 [id number] for patient norpEZPREJVNWZIFCB8930-88-85D24:48:10 [facility] 2023-11-30 12:19:00 [id number]/1aTCekS 6k3xGGOstTHU7POx2Wmjd54KDwRxW S02/Xc8yui4sbIk4mMrhgtjzvz01123-48-13X84:19:00 [facility] ProgREPORT#:[id number] REPORT STATUS: SignedREPORT INITIALIZATION DATE:11/30/23 TIME: 1218 PATIENT: CHARAN RESTREPO UNIT #: [id number]#: [id number] [address] [birth year] AGE: 53 SEX: M ATTEND: Papo Mayfield MDADM AUTHOR: Papo Mayfield MDREPT SERVICE DT/TIME: 11/30/23 1219* ALL edits or amendments must be made [...] Mean 89 11/30 899 Temp 37.2 11/30 0717 O2 Delivery Room air 11/29 1858 O2 [...] foleyExtremities: dry, moves allMusculoskeletal: full range of motionNeuro/PLASTICS 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, oriented X 3Skin: dry, intact, normal [...] 20 ML .STK-MED ONE IV (DC) Rocuronium Nelson (ZEMURON) 0 .STK-MED ONE IV (DC) Aminocaproic [...] 11/30 11/30 11/29 11/29 1108 0816 0402 3269 1731Chemistry Sodium (134 - 147 mEq/L) 137 [...] INR (0.8 - 1.2) 1.0 1.1 PTT ([place]) (25.0 - 39.5 Seconds) 57.9 H 78.6 [...] (Auto) (14.0 - 32.0 %) 22.3 25.0 Marion % (Auto) (4.8 - 9.0 %) 8.0 8.0 Eos % (Auto) (0.3 - 3.7 %) 4.7 H 4.9 H Baso % (Auto) (0.0 - 2.0 %) 1.2 1.0 Neut # (Auto) (2.0 - 7.6 x10 3/uL) 4.79 4.83 Lymph # (Auto) (1.0 - 3.8 x10 3/uL) 1.69 2.00 Marion # (Auto) (0.1 - 0.8 x10 3/uL) [...] past, hypertension, diabetes, hyperlipidemia who presented to [facility] with complaints of chest pains. He previously underwent left heart catheterization about 1 month ago and was referred for bypass surgery in the outpatient setting however he did not get hisoutpatient appointment yet. The patient reports back to the hospital with complaints of chest pains radiating to the left arm. 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 [...] for thrombus, after talking with the patient's wool broker we decided to cancel surgery due to the increase risk of thromboembolic event. Procedure cancelled today and CTA heart ordered for further evaluation Consultants: cardiology, cardiovascular surgery at 1202 RPT #:[id number] OF REPORTPRProgress bqps5944-27-74N61:19:00G.PYTK07951641-1080ZHBkyxc able for patient jbygKPGMFYGKCDXHWC3443-51-97E28:03:11 [facility] 2023-11-30 09:53:00 [id number]/XnpyQE A0tH4YuNHh5D342/SMzh0uJ2r0t59 1z2KV6Nl+CP+ckmGBAHNANTGeOG2467-48-63W06:53:00 [facility] ([facility])Cardiology Progress NoteREPORT#:[id number] REPORT STATUS: SignedREPORT INITIALIZATION DATE:11/30/23 TIME: 952 PATIENT: CHARAN RESTREPO UNIT #: [id number]#: [id number] [address] [birth year] AGE: 53 SEX: M ATTEND: [...] Flow FiO2 Mean Ox Delivery Rate 11/30 0717 37.2 11/30 0600 65 14 119/76 92 95 11/30 0500 64 15 109/61 79 97 11/30 0413 36.9 11/30 0400 64 15 128/69 94 98 11/30 0300 63 14 98/54 74 93 11/30 0200 61 10 119/66 87 96 / 0100 61 15 112/61 81 93 02/ 0000 61 16 121/62 85 96 02/ 2300 68 13 110/54 77 95 02 2200 62 14 114/58 80 94 02/08 2100 75 21 137/85 103 96 02/ 2031 36.1 02/ 2000 61 13 97/55 72 95 02/ 1858 92 Room air 11/29 1601 78 17 129/68 92 96 02 1600 36.6 02 1501 60 13 98/52 71 94 02/ 1400 62 16 127/65 86 97 02/08 1300 65 17 112/69 83 96 11/29 1200 36.6 11/29 1200 62 18 122/73 92 99 11/29 1100 59 14 116/70 87 97 11/29 1000 60 14 122/69 90 97 PATIENT [...] 20 ML .STK-MED ONE IV (DC) Rocuronium Nelson (ZEMURON) 0 .STK-MED ONE IV (DC) Aminocaproic [...] sounds, no distentionLower extremity: LE assessment: no edemaNeuro/PLASTICS 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, oriented X 3, no motor deficitsSkin: dry, intact, normal colorPsychiatry: normal affect, normal judgment/insight, normal mood ResultsFindings/Data:Laboratory Tests 11/30 11/30 11/29 11/29 0816 0402 2039 1731Chemistry Sodium (134 - [...] MG/DL) 192 H Laboratory Tests 11/30 11/30 11/29 0619 0006 1731 Coagulation INR (0.8 - 1.2) 1.0 1.1 PTT ([place]) (25.0 - 39.5 Seconds) 57.9 H 78.6 H 79.3 H PT Patient/Control Mix (9.3 - 12.9 SECONDS) 11.3 12.0 Laboratory Tests 11/30 11/29 0402 1731 Hematology [...] (Auto) (14.0 - 32.0 %) 22.3 25.0 Marion % (Auto) (4.8 - 9.0 %) 8.0 8.0 Eos % (Auto) (0.3 - 3.7 %) 4.7 H 4.9 H Baso % (Auto) (0.0 - 2.0 %) 1.2 1.0 Neut # (Auto) (2.0 - 7.6 x10 3/uL) 4.79 4.83 Lymph # (Auto) (1.0 - 3.8 x10 3/uL) 1.69 2.00 Marion # (Auto) (0.1 - 0.8 x10 3/uL) [...] NotesFree Text DxA P Notes:1. 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 of mLAD and was referred for CABG [...] on anticoagulation at 1148 at 1614 RPT #:[id number] OF REPORTPRProgress dmhj1148-89-48Y43:53:00G.JPWT69999432-4811GPArpbs able for patient npwnTXQPZVWGXMTPTJ4503-84-10J78:44:35 [facility] 2023-11-30 09:49:00 [id number] nNADJlyMSRfx49Zm69QlwwYj2M+Uo 77IPPkZB6prdERksMcR0vxTKl4y8106-81-77P55:49:00 [facility] Hospitalist Progress NoteREPORT#:[id number] REPORT STATUS: SignedREPORT INITIALIZATION DATE:11/30/23 TIME: 948 PATIENT: CHARAN RESTREPO UNIT #: [id number]#: [id number] [address] [birth year] AGE: 53 SEX: M ATTEND: Papo Mayfield MDADM AUTHOR: Kelley Young APRNREPT SERVICE DT/TIME: 11/30/23 [...] 11/30 0600 65 14 119/76 92 95 11/30 0500 64 15 109/61 79 97 11/30 0413 36.9 11/30 0400 64 15 128/69 94 98 11/30 0300 63 14 98/54 74 93 / 0200 61 10 119/66 87 96 / 0100 61 15 112/61 81 93 02/ 0000 61 16 121/62 85 96 11/29 2300 68 13 110/54 77 95 11/29 2200 62 14 114/58 80 94 2100 75 21 137/85 103 96 02 2031 36.1 02 2000 61 13 97/55 72 95 11/29 1858 92 Room air 11/29 1601 78 17 129/68 92 96 0208 1600 36.6 0208 1501 60 13 98/52 71 94 0208 1400 62 16 127/65 86 97 0208 1300 65 17 112/69 83 96 0208 1200 36.6 02 1200 62 18 122/73 92 99 0208 1100 59 14 116/70 87 97 0208 1000 60 14 122/69 90 97 24 [...] 20 ML .STK-MED ONE IV (DC) Rocuronium Nelson (ZEMURON) 0 .STK-MED ONE IV (DC) Aminocaproic [...] distentionExtremities: moves all, no calf tenderness, no edemaNeuro/PLASTICS 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, oriented X 3, CNII-XII intact, normal speech, no motor deficits, no sensory deficitsSkin: dry, intact ResultsFindings/Data:Laboratory Tests 11/30 11/30 11/29 11/29 11/29 0816 0402 2039 1731 1600Chemistry Sodium (134 - 147 mEq/L) [...] INR (0.8 - 1.2) 1.0 1.1 PTT ([place]) (25.0 - 39.5 Seconds) 57.9 H 78.6 H 79.3 H PT Patient/Control Mix (9.3 - 12.9 SECONDS) 11.3 12.0 Laboratory Tests 11/30 11/29 0402 1731 Hematology [...] (Auto) (14.0 - 32.0 %) 22.3 25.0 Marion % (Auto) (4.8 - 9.0 %) 8.0 8.0 Eos % (Auto) (0.3 - 3.7 %) 4.7 H 4.9 H Baso % (Auto) (0.0 - 2.0 %) 1.2 1.0 Neut # (Auto) (2.0 - 7.6 x10 3/uL) 4.79 4.83 Lymph # (Auto) (1.0 - 3.8 x10 3/uL) 1.69 2.00 Marion # (Auto) (0.1 - 0.8 x10 3/uL) [...] in CCU.11/30 On heparin. Pending surgery. at 4486 at 5615 RPT #:[id number] OF REPORTPRProgress fpnv5621-98-15X76:49:00G.ACJT89225108-0765GQJwibw able for patient jgbdGUNDWZTSQCXPXD7851-21-72P78:13:57 [facility] 2023-11-29 14:52:00 [id number] eEjb05JEkXa54rpMZQFIOfMhPu9hk EC6uErRCCVHcsEWre6efgUyprsb0215-42-12M63:52:00 [facility] ([facility])Cardiology Progress NoteREPORT#:[id number] REPORT STATUS: SignedREPORT INITIALIZATION DATE:11/29/23 TIME: 1451 PATIENT: CHARAN RESTREPO UNIT #: [id number]#: [id number] [address] [birth year] AGE: 53 SEX: M ATTEND: Papo Mayfield MDA AUTHOR: Fiona Foster AGACNPREPT SERVICE DT/TIME: 11/29/231451* ALL edits or amendments must be made on the electronic/computer document * SubjectivePatient reports:No: complaints. Objective GeneralVS/I O:24 hour I O ending at 0700: 02/08 0700 02/07 1900 Intake Total Output Total Balance Number [...] 18 122/68 90 92 02/07 2000 36.7 11/28 1999 65 13 122/62 85 95 11/28 1906 97 Room air 11/28 1904 76 27 116/80 94 95 11/28 1600 36.8 11/28 1600 66 22 126/74 91 97 11/28 1500 64 17 120/73 91 95 PATIENT [...] sounds, no distentionLower extremity: LE assessment: no edemaNeuro/PLASTICS 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, oriented X 3, no motor deficitsSkin: [...] Coagulation INR (0.8 - 1.2) 1.0 PTT ([place]) (25.0 - 39.5 Seconds) 75.5 H 58.4 [...] % (Auto) (14.0 - 32.0 %) 26.3 Marion % (Auto) (4.8 - 9.0 %) 9.5 H Eos % (Auto) (0.3 - 3.7 %) 5.3 H Baso % (Auto) (0.0 - 2.0 %) 0.8 Neut # (Auto) (2.0 - 7.6 x10 3/uL) 4.19 Lymph # (Auto) (1.0 - 3.8 x10 3/uL) 1.92 Marion # (Auto) (0.1 - 0.8 x10 3/uL) [...] Impressions:RADIOLOGY - XR CHEST 1 V 11/29 08 Report Impression - Status: SIGNED Entered: 11/29/2023 1449 IMPRESSION:No acute cardiopulmonary abnormality.Impression By: Donnell Barfield M.D. Results: labs reviewed, vital signs reviewed, rhythm personally rev'dTelemetry Interpretation:NSR Diagnosis, Assessment PlanPlan discussed with: patient, nurse Free Text DxA P NotesFree Text DxA P Notes:1. 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 CP improved with Morphine and NTG. Continue heparin drip. Add aspirin 81 mg daily. Continue atorvastatin and metoprolol 2. DMII: per Hospitalist 3. HTN: BP stable. Continue BB 4. 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 Continue beta-luís. GDMT as tolerated. Waiting for CABG. at 1453 at 8829 RPT #:[id number] OF REPORTPRProgress icjh4122-36-18Q96:52:00G.WWJY68313241-7934EVMetsb able for patient qtnwZKLGDKLYRPUHTZ9694-64-67Z58:56:50 [facility] 2023-11-29 12:56:00 [id number] G6e+oRGZWa68yU2qp9c2mMWNjTbmR 5eHejxf7k1uWidmhLWF1xD2c90G1636-63-24N21:56:[address] [address] PATIENT NAME: CHARAN RESTREPO ADMIT DATE: 11/27/23ACCOUNT NO: [id number] ROOM NO: [facility] AGE: 53 REPORT TYPE: eECHOCARDIOGRAM REPORT SEX: M ADMITTING PHYSICIAN:Papo Mayfield MD ATTENDING PHYSICIAN:Papo Mayfield MD *[address] [address]Vhfom: [phone]: [phone] Transthoracic Echocardiogram Patient: Royce Restrepotudy Date: 4BP: 120 / 73URN: [id number]: [id number]#: [id number]: 1970Age: 53Gender: MHeight: 69 in / 175.3 cmWeight: 183 lb / 83 kgBMI/BSA: 27 kg/m 2 / 2.03 m 2*Ordering Physician: * Raif Mayfield MD *Interpreting Physician: * Merlene Rutherford MD*Clinical Research Nurse Coordinator: * Nikki Patel Indications: LV THROMBUS. Study [...] at 1256 PATIENT NAME: CHARAN RESTREPO :56:0 0G.[id number] for patient ffylBTVNMEUFMYPOFS6810-94-09D05:27:41 [facility] 2023-11-29 10:46:00 [id number]/SLS bkB304CGAAQWcrdy0hjj15j3CMk1A ugmdXcqAdn1vxyrq5G3ePFgHGUi5392-11-77J96:46:00 [facility]ospital[facility] Progress NoteREPORT#:[id number] REPORT STATUS: SignedREPORT INITIALIZATION DATE:11/29/23 TIME: 104 PATIENT: CHARAN RESTREPO UNIT #: [id number]#: [id number] [address] [birth year] AGE: 53 SEX: M ATTEND: [...] O2 Flow FiO2 Mean Ox Delivery Rate 11/29 899 60 13 119/68 88 99 02/08 0800 [...] 85 95 02/07 1906 97 Room air 02/ 1904 76 27 116/80 94 95 02/07 1600 36.8 02/07 1600 66 22 126/74 91 97 02/07 1500 64 17 120/73 91 95 02/07 1400 65 18 113/65 83 94 02/07 1355 68 02/07 1200 36.8 02/07 1200 80 25 153/75 106 95 02/07 1100 70 22 129/69 91 95 24 hour I O ending at 0700: 02/08 0700 02/07 1900 Intake Total Output Total Balance Number [...] distentionExtremities: moves all, no calf tenderness, no edemaNeuro/PLASTICS 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, oriented X 3, CNII-XII intact, normal [...] % (Auto) (14.0 - 32.0 %) 26.3 Marion % (Auto) (4.8 - 9.0 %) 9.5 H Eos % (Auto) (0.3 - 3.7 %) 5.3 H Baso % (Auto) (0.0 - 2.0 %) 0.8 Neut # (Auto) (2.0 - 7.6 x10 3/uL) 4.19 Lymph # (Auto) (1.0 - 3.8 x10 3/uL) 1.92 Marion # (Auto) (0.1 - 0.8 x10 3/uL) [...] 0.1 x10 3/uL) 0.00 Laboratory Tests 11/28 1806 Serology SARS-CoV-2 Ag (Rapid) (Negative) Negative Diagnosis, [...] in CCU. at 1715 at 1718 RPT #:[id number] OF REPORTPRProgress ocfy2231-30-21C81:46:00G.DQAK61197645-4914RNLnczv able for patient gxpoHQEXEMNNZOIPWF0213-26-80T86:25:37 [facility] 2023-11-28 11:48:00 [id number]/pOPM0 jFYk9NKUgwt7T3R/g+7JhxKB72yu/ uej3vasAnW/+CialzVRa6xo5qjV1857-56-91H45:48:00 [facility] Progress NoteREPORT#:[id number] REPORT STATUS: SignedREPORT INITIALIZATION DATE:11/28/23 TIME: 114 PATIENT: CHARAN RESTREPO UNIT #: [id number]#: [id number] [address] [birth year] AGE: 53 SEX: M ATTEND: [...] O2 Flow FiO2 Mean Ox Delivery Rate 02/07 0800 36.9 02/07 0400 36.2 02/ 0300 62 17 137/64 92 95 02/ 0201 61 15 101/55 74 98 02/07 0100 63 16 135/73 97 96 02/07 0000 36.7 02/07 0000 68 17 97/54 72 94 02/ 2301 68 13 122/64 86 97 02/ 2201 73 18 104/49 71 95 02/06 2100 68 17 133/67 94 94 02/1999 36.9 02/ 2000 73 12 115/66 84 94 02/06 1900 77 26 139/71 96 96 02/ [...] sounds, no distentionLower extremity: LE assessment: no edemaNeuro/PLASTICS 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, oriented X 3, no motor deficitsSkin: [...] MG/DL) 212 H Laboratory Tests 11/28 11/28 11/27 11/27 0448 0448 2339 1817 Coagulation PTT ([place]) (25.0 - 39.5 Seconds) 52.1 H 47.4 H 42.1 H Plt P2Y12 React Units (182 - 335 PRU) 117 L Laboratory Tests 11/28 447 Hematology WBC (4.5 - 11.0 x10 3/uL) [...] % (Auto) (14.0 - 32.0 %) 20.7 Marion % (Auto) (4.8 - 9.0 %) 7.8 Eos % (Auto) (0.3 - 3.7 %) 3.2 Baso % (Auto) (0.0 - 2.0 %) 0.8 Neut # (Auto) (2.0 - 7.6 x10 3/uL) 5.59 Lymph # (Auto) (1.0 - 3.8 x10 3/uL) 1.73 Marion # (Auto) (0.1 - 0.8 x10 3/uL) [...] 0.1 x10 3/uL) 0.00 Laboratory Tests 11/27 1825 Urines Urine Color (YEL/STRAW) YELLOW Urine Appearance (CLEAR) CLEAR Urine pH (5.0 - 7.0) 5.0 Ur Specific [place] (1.005 - 1.030) 1.023 Urine Protein (NEGATIVE) [...] 0916 IMPRESSION:Patent bilateral greater saphenous veins.Impression By: ArleneJJY Colleen Montaño M.D. Results: labs reviewed, vital signs reviewedTelemetry [...] NotesFree Text DxA P Notes:1. 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 at 1410 at 1337 RPT #:[id number] OF REPORTPRProgress ullc2787-61-02K21:48:00G.WHNE19554408-3727INXsmdq able for patient ugwdSMLHTXQANHHCLE5459-96-45H59:10:25 [facility] 2023-11-28 11:26:00 [id number] La21d1Db3UjzgY+vNuRZtr2krd8YK tzhNSA6qtSugZmN8Kpja6kfti529124-52-58I80:26:00 [facility] Central[facility]ospital[facility] Progress NoteREPORT#:[id number] REPORT STATUS: SignedREPORT INITIALIZATION DATE:11/28/23 TIME: 1125 PATIENT: CHARAN RESTREPO UNIT #: [id number]#: [id number] [address] [birth year] AGE: 53 SEX: M ATTEND: Papo Mayfield MDADM AUTHOR: Marilyn Mayfield MDREPT SERVICE DT/TIME: 11/28/23 1126* ALL edits or amendments must be made on the electronic/computer document * SubjectiveChief complaint:he still complaint of cp . CABG work up Review of SystemsCardiovascular:Reports: chest pain. All systems rev neg: except as noted Objective GeneralVS/I O:Vital Signs: Date Time Temp Pulse Resp B/P B/P Pulse O2 O2 Flow FiO2 Mean Ox Delivery Rate / 0800 36.9 02/ 0400 36.2 02/ 0300 62 17 137/64 92 95 11/28 0201 61 15 101/55 74 98 02/ 0100 63 16 135/73 97 96 02/ 0000 36.7 02/ 0000 68 17 97/54 72 94 02/ 2301 68 13 122/64 86 97 / 2201 73 18 104/49 71 95 / 2100 68 17 133/67 94 94 021999 36.9 02/1999 73 12 115/66 84 94 02/ 1900 77 26 139/71 96 96 02/ 1600 37.0 02/ 1500 75 12 104/51 73 95 11/27 1439 81 25 136/57 81 97 02/ 1350 86 19 139/67 97 100 24 [...] distentionExtremities: moves all, no calf tenderness, no edemaNeuro/PLASTICS 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, oriented X 3, CNII-XII intact, normal [...] % (Auto) (14.0 - 32.0 %) 20.7 Marion % (Auto) (4.8 - 9.0 %) 7.8 Eos % (Auto) (0.3 - 3.7 %) 3.2 Baso % (Auto) (0.0 - 2.0 %) 0.8 Neut # (Auto) (2.0 - 7.6 x10 3/uL) 5.59 Lymph # (Auto) (1.0 - 3.8 x10 3/uL) 1.73 Marion # (Auto) (0.1 - 0.8 x10 3/uL) [...] 0.1 x10 3/uL) 0.00 Laboratory Tests 11/27 1825 Urines Urine Color (YEL/STRAW) YELLOW Urine Appearance (CLEAR) CLEAR Urine pH (5.0 - 7.0) 5.0 Ur Specific [place] (1.005 - 1.030) 1.023 Urine Protein (NEGATIVE) [...] best of my knowledge. at 1322 RPT #:[id number] OF REPORTPRProgress [id number]:26:00G.[id number] able for patient dttnSIBXJFVDJWYJPO6986-15-68R46:22:25 [facility] 2023-11-28 09:11:00 [id number] [id number] cbW36M2wNWyrYPghsThi2Ps/L7n3090-81-46K70:11:00 [facility])Cardiothoracic Surgery ProgREPORT#:[id number] REPORT STATUS: SignedREPORT INITIALIZATION DATE:11/28/23 TIME: 910 PATIENT: CHARAN RETSREPO UNIT #: [id number]#: [id number] [address] [birth year] AGE: 53 SEX: M ATTEND: [...] foleyExtremities: dry, moves allMusculoskeletal: full range of motionNeuro/PLASTICS 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, oriented X 3Skin: dry, intact, normal [...] 11/28 11/28 11/28 11/27 11/27 0715 0457 0448 2131 1616Chemistry Sodium (134 - 147 mEq/L) 139 [...] (0 - 54 ng/L) 10 Laboratory Tests 11/28 11/28 11/27 11/27 11/27 0448 0448 2337 1817 1041Coagulation PTT ([place]) (25.0 - 39.5 Seconds) 52.1 H 47.4 H 42.1 H Plt P2Y12 React Units (182 - 335 117 L 131 LPRU) 11/27 1041 Coagulation INR (0.8 - 1.2) 1.1 PTT ([place]) (25.0 - 39.5 Seconds) 34.3 PT Patient/Control Mix (9.3 - 12.9 SECONDS) 12.7 Laboratory Tests 11/28 11/27 0448 1046 Hematology WBC (4.5 - 11.0 x10 [...] (Auto) (14.0 - 32.0 %) 20.7 17.4 [place] % (Auto) (4.8 - 9.0 %) 7.8 7.1 Eos % (Auto) (0.3 - 3.7 %) 3.2 2.9 Baso % (Auto) (0.0 - 2.0 %) 0.8 0.6 Neut # (Auto) (2.0 - 7.6 x10 3/uL) 5.59 5.68 Lymph # (Auto) (1.0 - 3.8 x10 3/uL) 1.73 1.38 [place] # (Auto) (0.1 - 0.8 x10 3/uL) [...] pH (5.0 - 7.0) 5.0 Ur Specific [place] (1.005 - 1.030) 1.023 Urine Protein (NEGATIVE) [...] 12 months is optional based on 2017 [facility] criteria. FOR INTERNAL CODING PURPOSES ONLYRESULT CODE: [...] flow bilaterally. Impression By: Roni Roper M.D. Results: labs reviewed, vital signs stable, rythm personally rev'd, current med profile rev'd Quality: [...] past, hypertension, diabetes, hyperlipidemia who presented to [facility] with complaints of chest pains. He previously underwent left heart catheterization about 1 month ago and was referred for bypass surgery in the outpatient setting however he did not get hisoutpatient appointment yet. The patient reports back to the hospital with complaints of chest pains radiating to the left arm. 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 [...] Consultants: cardiology, cardiovascular surgery at 1025 RPT #:[id number] OF REPORTPRProgress [id number]:11:00G.[id number] able for patient qljzPBLFYLTUWQKJWS1636-19-11S98:08:44 [facility] 2023-11-27 14:04:00 [id number]/ [id number]/hb qnaXEUWAgVVEJXqUasNbiflvZH81654-88-08B29:04:66543 [address] [address] PATIENT NAME: CHARAN RESTREPO ADMIT DATE: 11/27/23ACCOUNT NO: [id number] ROOM NO: [facility] AGE: 53 REPORT TYPE: eECHOCARDIOGRAM REPORT SEX: M ADMITTING PHYSICIAN:Papo Mayfield MD ATTENDING PHYSICIAN:Papo Mayfield MD *[place], [place] [address]Phone: Zcp: [phone] Echocardiogram Patient: Royce Restrepotudy Date: 4BP: 137 / 80URN: [id number]: [id number]#: [id number]: 1970Age: 53Gender: MHeight: 70 in / 177.8 cmWeight: 190 lb / 86.2 kgBMI/BSA: 27.3 kg/m 2 / 2.08 m 2*Ordering Physician: * Dia Baird *Interpreting Physician: * Merlene Rutherford MD*Clinical Research Nurse Coordinator: * Skyla Dodd Indications: CARDIAC SURGERY PRE-OP. Study data: Transthoracic echocardiogram. Procedure: A transthoracicechocardiogram was performed. Images were obtained using a [employer] cardiacultrasound machine. Image quality was adequate. Intravenous [...] Vol/bsa, ES, 2-p 17 ml/m 2 16 34 Vol/bsa, ES, A/L 11 ml/m 2 16 34 AP dim, ES MM 4.3 cm [...] mildly dilated. Wall thickness is mildlyPATIENT NAME: KAYECHARAN increased. The estimated ejection fraction is 30-34%. [...] Rutherford MD11/27/2023 14:04 at 1404 PATIENT NAME: CHARAN RESTREPO :04:0 0G.[id number] for patient cgpjPRVDKVVEAUKFER9058-32-90V74:04:42 [facility] 2023-11-27 10:44:00 [id number] jL3AXIo4fDyb6PRL8B0kUQZCZnvr1 MrDAdBcTE3NdGH84KJneixQn43M4721-93-40A31:44:00 [facility] CentralAdult General ConsultationREPORT#:[id number] REPORT STATUS: SignedREPORT INITIALIZATION DATE:11/27/23 TIME: 1043 PATIENT: CHARAN RESTREPO UNIT #: [id number]#: [id number] [address] [birth year] AGE: 53 SEX: M ATTEND: Papo Mayfield MDADM AUTHOR: Marilyn Mayfield MDREPT SERVICE DT/TIME: 11/27/23 1044* ALL edits or amendments must be made on the electronic/computer document * History of Present IllnessReason for consult:medical management Free Text HPI NotesFree Text HPI Notes: 53 years old male with PMH of CAD with 6-7 stents , HTN, DM, [facility] . he complaint of cp on and off for a month. pain is like stab pain . it is with sob and dizziness . it radiate the left arm . he hadcath last month . he was referred for CABG as out patient . he had cp yesterday and went back to the hospital in [facility]. 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 ENT:Denies: sore throat. Respiratory:Denies: pneumonia, productive cough (sputum), SOB, wheezing. Cardiovascular:chest pain. Denies: DWYER (dyspnea on exertion), edema, orthopnea, palpitations. GI:Denies: abdominal pain, diarrhea, hematemesis, hematochezia, nausea, vomiting. :Denies: dysuria, flank pain, frequency, hematuria, nocturia. Neuro:dizziness. Denies: focal weakness, headache, seizure. ObjectiveVS/I O:Last Documented: Result Date Time Temp 37.0 11/27 1600 Pulse Ox 95 / 1500 B/P 104/51 11/27 1500 B/P Mean 73 11/27 1500 Pulse 75 11/27 1500 Resp 12 11/27 1500 O2 Delivery Room air 11/27 1118 O2 Flow Rate 2 11/27 0900 24 hour I O ending at 0700: 02 0700 11/26 1900 Intake Total Output Total Balance Output, Urine PATIENT WEIGHT: Weight (lb): 183Weight (oz): 6.79Weight (kg): 83.200 General appearance: alert, awake, oriented, no acute distressHead/Eyes: atraumatic, normocephalic, normal conjunctiva/sclera, normal eyelids/periorb.Neck: non-tender, no JVDCardiovascular: regular rate rhythm, normal heart soundsRespiratory: aerating well, clear to auscultationAbdomen: soft, non-tender, no reboundExtremities: moves all, no edemaNeuro/PLASTICS 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, oriented X 3, CNII-XII grossly intact, normal speech, no motordeficits, no sensory deficitsSkin: dry, intact ResultsFindings/Data:Laboratory Tests: 11/27 11/27 11/27 11/27 1120 1046 1041 1041 Chemistry POC Glucose (70 - 110 MG/DL) 248 H Troponin I High Sens (0 - 54 ng/L) 10 Coagulation INR (0.8 - 1.2) 1.1 PTT ([place]) (25.0 - 39.5 Seconds) 34.3 PT Patient/Control [...] % (Auto) (14.0 - 32.0 %) 17.4 Marion % (Auto) (4.8 - 9.0 %) 7.1 Eos % (Auto) (0.3 - 3.7 %) 2.9 Baso % (Auto) (0.0 - 2.0 %) 0.6 Neut # (Auto) (2.0 - 7.6 x10 3/uL) 5.68 Lymph # (Auto) (1.0 - 3.8 x10 3/uL) 1.38 Marion # (Auto) (0.1 - 0.8 x10 3/uL) [...] (Man) (0.0 - 0.1 x10 3/uL) 0.00 0206 02 0211/27 0728 0602 0602 0602Chemistry Sodium (134 - [...] 4.17Coagulation INR (0.8 - 1.2) 1.1 PTT ([place]) (25.0 - 39.5 Seconds) 32.7 PT Patient/Control [...] % (Auto) (14.0 - 32.0 %) 16.0 Marion % (Auto) (4.8 - 9.0 %) 7.3 Eos % (Auto) (0.3 - 3.7 %) 3.3 Baso % (Auto) (0.0 - 2.0 %) 0.9 Neut # (Auto) (2.0 - 7.6 x10 3/uL) 6.36 Lymph # (Auto) (1.0 - 3.8 x10 3/uL) 1.42 Marion # (Auto) (0.1 - 0.8 x10 3/uL) [...] Impressions:CAT SCAN - CT CHEST W/O CONTRAST 02/06 0943 Report Impression - Status: SIGNED Entered: [...] 12 months is optional based on 2017 [facility] criteria. FOR INTERNAL CODING PURPOSES ONLYRESULT CODE: [...] best of my knowledge. at 1739 RPT #:[id number] OF REPORTZEBtyfdggyfwdf7921-99-93Z18:44:00G.PDOC2 [id number] for patient sfcnYAPIMGUAHTJGZA3386-46-86G84:39:35 [facility] 2023-11-27 08:49:00 [id number]/ET ioFjwLOKHarta4twTQlD2NyyTt6MT aMcr+Zp4R7hAfM4cod3e/zWZ7vv9534-55-53M19:49:00 [facility] CentralCardiology ConsultationREPORT#:[id number] REPORT STATUS: SignedREPORT INITIALIZATION DATE:11/27/23 TIME: 08 PATIENT: CHARAN RESTREPO UNIT #: [id number]#: [id number] [address] [birth year] AGE: 53 SEX: M ATTEND: Papo Mayfield MDADM AUTHOR: Merlene Rutherford MDREPT SERVICE DT/TIME: 11/27/23 0849* ALL edits or amendments must be made on the electronic/computer document * History of Present Illness HPIRequesting Clinician: Dr. Jdud for consult:Roberta complaint:CPPCP:PCP: Jesusita Osuna MD HPI:This is a 53-year-old male with PMHx of CAD status post previous PCI in the past, hypertension, diabetes, hyperlipidemia who presented to [facility] with complaints of chest pains.He previously underwent [...] auscultation, no distressLower extremity: LE assessment: no edemaNeuro/PLASTICS 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, oriented X 3, no motor deficitsPsychiatry: [...] 1.1 PTT ([place]) (25.0 - 39.5 Seconds) 32.7 PT Patient/Control Mix (9.3 - 12.9 SECONDS) 12.2 Laboratory Tests 11/27 601 Hematology WBC (4.5 - 11.0 x10 3/uL) [...] % (Auto) (14.0 - 32.0 %) 16.0 Marion % (Auto) (4.8 - 9.0 %) 7.3 Eos % (Auto) (0.3 - 3.7 %) 3.3 Baso % (Auto) (0.0 - 2.0 %) 0.9 Neut # (Auto) (2.0 - 7.6 x10 3/uL) 6.36 Lymph # (Auto) (1.0 - 3.8 x10 3/uL) 1.42 Marion # (Auto) (0.1 - 0.8 x10 3/uL) [...] 0.1 x10 3/uL) 0.00 Laboratory Tests 11/27 0602 Chemistry B-Natriuretic Peptide (0 - 100 PG/ML) [...] 12 months is optional based on 2017 [facility] criteria. FOR INTERNAL CODING PURPOSES ONLYRESULT CODE: [...] NotesFree Text DxA P Notes:1. 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 CP improved with Morphine and NTG, will transfer to CCU, if persist will do Nitro gtt. 2. DMII: per Hospitalist 3. HTN: resume home meds. 4. CHF: LVEF low, apix aneurysmal, no Thrombus with Contrasted ECHO at 5067 RPT #:[id number] OF REPORTRKRuunfqnahlgt0486-02-39G34:49:00G.PDOC2 6511250-5274PPNqjjjyykl for patient mvamWGIQZOUVBYYOJT0730-15-88T21:46:23 [facility] 2023-11-27 08:11:00 [id number]/TmXmEgW fcc2HZYCUyzkDDxFzn93GqvH+sCc9 UUQ87D+UI7MInKThILizSKaB4uq8442-48-30I08:11:00 [facility] ([facility])History Physical - AdultREPORT#:[id number] REPORT STATUS: SignedREPORT INITIALIZATION DATE:11/27/23 TIME: 810 PATIENT: CHARAN RESTREPO UNIT #: [id number]#: [id number] [address] [birth year] AGE: 53 SEX: M ATTEND: Papo Mayfield [facility] AUTHOR: Dia Baird PhysicREPT SERVICE DT/TIME: 11/27/23 0811* ALL edits or amendments must be made on the electronic/computer document * Dia Baird 11/27/23 0811:History of Present Illness HPIChief complaint:Chest pains, coronary artery diseaseHPI:This is a 53-year-old gentleman with past medical history of coronary artery disease status post previous PCI in the past, hypertension, diabetes, hyperlipidemia who presented to [facility] with complaints of chest pains. He previously underwent left heart catheterization about 1 month ago and was referred for bypass surgery in the outpatient setting however he did not get hisoutpatient appointment yet. The patient reports back to the hospital with complaints of chest pains radiating to the left arm. 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 The patient was seen and examined, reports chest pains 8 out of 10 HistoryPast medical history:Reports: Coronary artery disease, Diabetes mellitus, Hypertension. Past surgical history:Reports: (Left Tib, Fib). Family history:Reports: Heart disease. 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 He previously underwent left heart catheterization about 1 month ago and was referred for bypass surgery in the outpatient setting however he did not get hisoutpatient appointment yet. The patient reports back to the hospital with complaints of chest pains radiating to the left arm. 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 [...] calculator, and complications. at 1629 at 1112 [facility] #:[id number] OF REPORTHPHistory and physical rzrfstvgapf9193-84-26U24:11:00G.STLZ36921530-3763 AVAvailable for patient ejyzUZMYDKMQTHTJMO7930-91-09X60:30:48 [facility] 2023-11-27 06:38:00 [id number] SjMDddmUAkX1fZsL6T87eGbNOxago o7eJPDzByi7CN54Jmi6DVg3VECp7962-09-25W55:38:29540 0-[address] [address] PATIENT NAME: CHARAN RESTREPO ADMIT DATE: 11/27/23ACCOUNT NO: [id number] ROOM NO: 3302 AGE: 53 REPORT TYPE: eELECTROCARDIOGRAM REPORT SEX: M ADMITTING PHYSICIAN:Papo Mayfield MD ATTENDING PHYSICIAN:Papo Mayfield MD Order:[id number] Reason : PREOP Test Date/Time Stamp:SunNov 27 2023 06:38:23Blood Pressure : / mmHGVent. Rate : 075 BPM Atrial Rate : 075 BPM P-R Int : 158 ms QRS Dur : 090 ms QT Int : 380 ms P-R-T Axes : 052 267 040 degrees QTc Int : 424 ms Normal sinus rhythmInferior infarct (cited on or before 18-MAR-2023)Anterolateral infarct (cited on or before 18-MAR-2023)Abnormal ECGWhen compared with ECG of 20-MAR-2023 08:44,Significant changes have occurredConfirmed by MD VI, HIMANSHU ([id number]) on 01/09/2024 1:23:40 PM Referred By: Papo Mayfield Confirmed by:HIMANSHU LEBRON MD at 1323 PATIENT NAME: CHARAN RESTREPO .[id number] AVAvailable for patient otwqVFKZCQGERQUHJQ6825-02-08Q65:24:10 [facility] 2023-03-20 15:29:00 [id number] jhoumO7khVkrmw2ntqlHFKE6pZDNo KrEbGRMZtNKrGrfc+7ipPecTqUZ6641-69-18R48:29:00 [facility] ([facility])Cardiology Progress NoteREPORT#:[id number] REPORT STATUS: SignedDATE:03/20/23 TIME: 1529 PATIENT: CHARAN RESTREPO UNIT #: [id number]#: [id number] [facility] AGE: 52 SEX: M ATTEND: Montez Jernigan [facility] AUTHOR: Paco James MD * [...] months for possible AICD at 1532 RPT #:[id number] OF REPORTPRProgress sumk5371-85-79H04:29:00Z.BGYE52806145-3104BLZqnuk able for patient hneiOPSXDSVSWAGCIA7616-37-54O52:32:26 [facility] 2023-03-20 08:44:00 [id number]/Ts2M fQxztUifSG7K6aXdZQaYly+ienKXM scYU/SHEgbdF5r1ok0hWSbhUFvs3568-92-92E65:44:12679 0-0054 [place] [address] PATIENT NAME: CHARAN RESTREPO ADMIT DATE: 03/18/23ACCOUNT NO: [id number] ROOM NO: Z.503 AGE: 52 REPORT TYPE: ELECTROCARDIOGRAM SEX: M ADMITTING PHYSICIAN:Montez Jernigan MD ATTENDING PHYSICIAN:Montez Jernigan MD Order:[id number] Reason : CAD/DC/VT Test Date/Time Stamp:SunMar 20 2023 08:44:19Blood Pressure [...] SCHILLING at 1750 PATIENT NAME: CHARAN RESTREPO .[id number] AVAvailable for patient ubmiQTQMXNOWIXKJMN2865-53-98D43:51:36 [facility] 2023-03-20 08:41:00 [id number] JaMtBz3vahtEOM1i8JUYA8SvKtk47 Q1vaKzhKpAMSbP3dF9WB0NYLKu41451-51-57E40:41:00 [facility]Hospital[facility] Discharge SummaryREPORT#:[id number] REPORT STATUS: SignedDATE:03/20/23 TIME: 840 PATIENT: CHARAN RESTREPO UNIT #: [id number]#: [id number] [facility] [birth year] AGE: 52 SEX: M ATTEND: Montez Jernigan [facility] AUTHOR: Davi Davison MD, MPH [...] s/p 2 stents, HFpEF borderline [facility]. [facility] he had chest pain/dizziness, brief syncopal episode. He was brought to [facility] and was found to be in [facility] where he was given amiodarone and synchronized [...] of motionMusculoskeletal: normal inspection, painless range of motionNeuro/PLASTICS 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, oriented X 3, CNII-XII intact, normal speechSkin: dry, normal temperaturePsychiatry: normal affect, normal judgment/insight ResultsFindings/Data:Laboratory Tests: 03/20 03/20 03/20 03/19 03/19 0631 0624 0412 2562 9799 Chemistry Sodium (137 - 145 MMOL/L) 134 [...] to: Home/Self CareAdditional Discharge Routines: PCP Follow-Up, Oxygraph Operator Follow-UpDiet: Resume Home Diet/FeedsActivity: Resume Normal Activity [...] He has asked for 1 week of [place], stating that he missed his pain management appointment on 03/19 however after reviewing his prescriptions on the PDMP he filled a prescription for 56 tablets (28 day prescription) on 02/26 and should not run out of medication until 03/26/23, so no further norco will be written at this time. He will follow up with PCP and cardiology as instructed. at 1016 at 1638 RPT #:[id number] OF REPORTDSDischarge zhidaut1810-04-80S03:41:00Z.IKEX75846638-0830BJBk ailable for patient gkniKDAJINUJNEECWD0936-10-42C14:17:22 [facility] 2023-03-19 14:01:00 [id number]+RKB8Nlv gTGlHKApd7t1c7Rj6Xi/IAJeriZRIaylin rtHRo7Y+0JA9AUeb9Y4ndxjaiXp5242-23-50L22:01:00THI S REPORT HAS BEEN APPENDED [id number] [address] PATIENT NAME: CHARAN RESTREPO ADMIT DATE: 03/18/23ACCOUNT NO: [id number] ROOM NO: Z.503 AGE: 52 REPORT TYPE: ECHOCARDIOGRAM SEX: M ADMITTING PHYSICIAN:Montez Jernigan MD ATTENDING PHYSICIAN:Montez Jernigan MD *[facility]*[address] [place], [place] [address]Phone Transthoracic Echocardiogram Patient: Royce Restrepotudy Date: 03/19/2023 BP: 134 / 73 Location: [facility]: [id number] : 1970 Age: 52 Height: 70 in / 177.8 cmAccession#: [id number] Gender: M Weight: 199.6 lb / 90.7 kgBMI/BSA: 28.7 kg/m 2 / 2.14 m 2 *Ordering Physician: * Sabino Schilling MD *Interpreting Physician: * Paco James MD*Clinical Research Nurse Coordinator: * Gabby Crockett Indications: CAD / DC. Study data: Transthoracic echocardiogram. Procedure: Transthoracicechocardiography was performed. Images were obtained using a [employer] cardiacultrasound machine. Image quality was adequate. M-mode, [...] 1401 SECTION 2 ADDENDUM 1: 03/20/23 0752 [facility] *[facility]*[address] [place], [place] [address]Hcnjw Transthoracic Echocardiogram (Report amended 6811-42-09M06:52:29) Patient: Royce Resrtepotudy Date: 03/19/2023 BP: 134 / 73 Location: [facility]: [id number] : 1970 Age: 52 Height: 70 in / 177.8 cmAccession#: [id number] Gender: M Weight: 199.6 lb / 90.7 kgBMI/BSA: 28.7 kg/m 2 / 2.14 m 2 *Ordering Physician: * Sabino Schilling MD *Interpreting Physician: * Sabino Schilling MD*Clinical Research Nurse Coordinator: * Gabby Crockett Indications: CAD / DC. Study data: Transthoracic echocardiogram. Procedure: Transthoracicechocardiography was performed. Images were obtained using a [employer] cardiacultrasound machine. Image quality was adequate. M-mode, [...] Mean v, S 0.73 m/sec PATIENT NAME: BERT RESTREPOYCE VTI, S 20.3 cm Mean grad, S [...] apex.Recommendations: continue hf mgmt. Amended Sabino Schilling AR03/20/2023 07:52 PATIENT NAME: CHARAN RESTREPO :01:0 0Z.[id number] for patient mqwaQAUXSEUVCTCOMN4276-50-63A62:02:20 [facility] 2023-03-19 12:44:00 [id number] vS625g7YvXSXiASnGkoK/1I+jl9DR OdTF1Ptr8tOftWEmrZT/kFSfLz91322-10-21Z17:44:00 [facility] PasoCardiology Progress NoteREPORT#:[id number] REPORT STATUS: SignedDATE:03/19/23 TIME: 1244 PATIENT: CHARAN RESTREPO UNIT #: [id number]#: [id number] [facility] AGE: 52 SEX: M ATTEND: Montez Jernigan [facility] AUTHOR: Paco James MD * [...] separate fromany billable procedures. at 1248 RPT #:[id number] OF REPORTPRProgress iami6541-53-85K35:44:00Z.RXJV51191765-7200AUEdqob able for patient ruxtUFIESDXDBNQUZA7630-46-93P47:48:38 [facility] 2023-03-19 09:27:00 [id number] 9FuN3/c/JJqkg4W94oPIUc5ib3WQf BswGd9ZA/tVJOhLS6vblK0fAcyP2466-68-25D65:27:00 [facility] ([facility])Critical Care Progress NoteREPORT#:[id number] REPORT STATUS: SignedDATE:03/19/23 TIME: 926 PATIENT: CHARAN RESTREPO UNIT #: [id number]#: [id number] [facility] AGE: 52 SEX: M ATTEND: Montez Jernigan [facility] AUTHOR: Suzette Wang MANAGER STERILE PROCESSING * ALL edits or amendments must be [...] no hematoma Musculoskeletal normal inspection, no muscle spasmNeuro/PLASTICS 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, oriented X 3, no sensory deficitsPsychiatry: normal affect ResultsFindings/data:Laboratory Tests 03/19 03/19 03/18 03/18 03/18 0326 0325 8437 3 2022 Chemistry Sodium (137 - 145 [...] (Auto) (14 - 44 %) 8.0 L Marion % (Auto) (4 - 13 %) 5.3 Eos % (Auto) (0 - 6 %) 0.8 Baso % (Auto) (0 - 2 %) 0.5 Neut # (Auto) (2.0 - 7.6 K/mm3) 13.48 H 11.29 H Lymph # (Auto) (1.0 - 3.8 K/mm3) 1.28 2.18 Marion # (Auto) (0.1 - 0.8 K/mm3) 0.84 [...] pH (5.0 - 9.0) 5.0 Ur Specific [place] (1.003 - 1.030) 1.020 Urine Protein (NEGATIVE [...] 190 IMPRESSION: Unremarkable portable examination of the chest.Impression By: ArleneRLA2 - Hima Jaime M.D. Results: labs reviewed, vital signs reviewed, current med profile rev'd Treatment Prophylaxis Treatment ProphylaxisOxygen: room airLines: peripheral Diagnosis, Assessment PlanFree text A P:52 year old male patient hx CAD s/p multiple stents, systolic heart failure transferred from [facility] with STEMI. STEMI: Coronary Artery Disease [...] arrythmias DiabetesUncontrolled. Takes metformin and jardiance. 9.3 R9KNwbpyri 200s, start lantus. Patietn educated on diabetes and need for insulin atthis pointWill consult senior wind turbine technician for DM education Tobacco AbuseSmokes 2 PPDCounseled against smoking Nicotine patch PPX LovenoxCardiac Diet f/u 35 mins Orders: Procedure Date/time Status MAGNESIUM 03/20 400 Active BASIC METABOLIC PANEL 03/20 400 Active LIVER FUNCTION PANEL 03/19 0927 Active Consultants: cardiology Quality: Gen Med Crit [...] if needed at 1004 at 1306 RPT #:[id number] OF REPORTPRProgress djff6870-55-42T38:27:00Z.VRSJ91548461-1830LDVpjfi able for patient gpzlAPJLNPVPUQEBUD9855-42-78P90:04:53 [facility] 2023-03-19 07:39:00 [id number] rczfe7gEMBRDkZTFTB573TMeSEQAG SQIjitbCbEkNvzssu/ROpiuG9I16501-34-58S13:39:00 [facility] PasoHospitalist Progress NoteREPORT#:[id number] REPORT STATUS: SignedDATE:03/19/23 TIME: 738 PATIENT: CHARAN RESTREPO UNIT #: [id number]#: [id number] [facility] AGE: 52 SEX: M ATTEND: Montez Jernigan [facility] AUTHOR: Davi Davison MD, MPH R2 * ALL edits or amendments must be made on the electronic/computer document * Davi Davison 03/19/23 0739:SubjectiveChief complaint:CHEST PAINHPI:52 y/o M PMH DM2, HLD, CAD s/p 2 stents, HFpEF borderline, tobacco use, arthritis presented to [facility] for chest pain.NAEO. No arrhythmias [...] O2 Flow FiO2 Mean Ox Delivery Rate 05/ 0703 76 19 134/73 98 93 05/29 0700 95 33 93 05/29 0648 93 Room air 21 05/ 0645 66 15 92 05/ 0633 66 14 132/68 93 93 05/29 [...] 13 95 05/29 0045 69 12 96 03/19 0033 67 10 139/82 105 94 03/19 0030 68 10 95 03/19 0015 73 15 94 03/19 0003 71 15 138/84 106 93 03/19 0000 97.9 03/19 0000 74 17 94 03/18 2345 [...] 03/18 2100 80 18 123/64 88 90 03/18 2050 79 17 137/81 104 91 03/18 2045 [...] of motionMusculoskeletal: normal inspection, painless range of motionNeuro/PLASTICS 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, oriented X 3, CNII-XII intact, normal [...] s/p 2 stents, HFpEF borderline [facility] chest pain. STEMI (ST elevation myocardial infarction) : Hypertension : HLD : CAD : HF : Hx stent03/18 AM - chest pain/dizziness, found to be in vtach at [facility]. Placed on amiodarone drip, given sync cardioversion which resolved issue. Transferred here per Dr. Schilling, found to have V1/[facility]2 [facility]x stent [facility]. EF 20%.03/19 - titrating off nitro drip, restarting PO rx per cardiologyPlan:Cardio management per Dr. Mock: Nitro drip - titrate off today Restart B luís? - per cardiology ASA 81, ticagrelor 90 BID Atorvastatin 40 Morphine 4 IV q6 PRN - per Dr. Alvarez Home rx (deferred): Entresto 24-26 BID Bisoprolol/HCTZ 02/24.25 KD9Yrhaqyn A1c, is on jardiance unknown dose at homeSupposedly took metformin which "didn't work" in the bkvxZ2p 9.3MDSS from LDSS today Tobacco hx : Aqynujkn51+ pack-year smoking hxMild expiratory wheezing, possible COPD [...] nitroglycerine drip still which is being weaned. Business Development Officer and cardiology are on board and weappreciate their recommendations and care. at 0743 at 1246 [facility] #:[id number] OF REPORTPRProgress yxjh1070-76-58W19:39:00Z.ABAD51880513-8039RMKiprv able for patient jiayRKUKQNXKPRAYDT6903-11-45T84:44:10 [facility] 2023-03-19 05:44:00 [id number] lAM76w5hZCN4DbKqCNUAD8mNBfFQh pFsgsF0tXWxOQvtJZ9ppOummeY59144-68-60C66:44:04663 9-0005 [place] [address] PATIENT NAME: CHARAN RESTREPO ADMIT DATE: 03/18/23ACCOUNT NO: [id number] ROOM NO: Z.I13 AGE: 52 REPORT TYPE: ELECTROCARDIOGRAM SEX: M ADMITTING PHYSICIAN:Montez Jernigan MD ATTENDING PHYSICIAN:Montez Jernigan MD Order:[id number] Reason : CAD/DC Test Date/Time Stamp:SunMar 19 2023 05:44:06Blood Pressure [...] SCHILLING at 1039 PATIENT NAME: CHARAN RESTREPO .[id number] AVAvailable for patient vmdiLCDOLEWDDUVPLJ8242-08-28M14:39:45 [facility] 2023-03-19 05:44:00 [id number] g4BiEcusmAVRqduZhucNVUy+dWLXb CU14mYWIml2OXQdn4wbX8AnazuP4476-67-29E64:44:13453 0-0053 [place] [address] PATIENT NAME: CHARAN RESTREPO ADMIT DATE: 03/18/23ACCOUNT NO: [id number] ROOM NO: Z.503 AGE: 52 REPORT TYPE: ELECTROCARDIOGRAM SEX: M ADMITTING PHYSICIAN:Montez Jernigan MD ATTENDING PHYSICIAN:Montez Jernigan MD Order:[id number] Reason : CAD/DC Test Date/Time Stamp:SunMar 19 2023 05:44:06Blood Pressure [...] SCHILLING at 1750 PATIENT NAME: CHARAN RESTREPO .[id number] AVAvailable for patient qqaiMZXMOCQORNVXQM5203-78-80C30:50:56 [facility] 2023-03-18 17:45:00 [id number]+XBV/y Nm9sMyi1P8+8GyD5TeEHaeYKmn0vD 4Qobk0ut5kXXOt09WV2HhxqmRdq8509-68-12I70:45:00 [facility] Center ([facility])Critical Care Consult NoteREPORT#:[id number] REPORT STATUS: SignedDATE:03/18/23 TIME: 1744 PATIENT: CHARAN RESTREPO UNIT #: [id number]#: [id number] [facility] AGE: 52 SEX: M ATTEND: Jesusita Osuna AUTHOR: Suzette Wang MANAGER STERILE PROCESSING * ALL edits or amendments must be made on the electronic/computer document * Davonte Wang 03/18/23 1745:History of Present Illness HPIRequesting clinician: Direct AdmitReason for consult:STEMIChief complaint:Chest Pain PCP:PCP: Jesusita Osuna MD HPI:Mr Restrepo is a 52 year old male patient who is transferred from outside emergency department with STEMI. Patient presented to their facility with chest pressure. He was found to be in ventricular tachycardia and subsequently cardioverted. Repeat EKG showed STEMI. Transferred emergently to our slab off mill tender via life flight. Dr Jmaes was able to place 4 stents to [...] encouraged to have debrillator placed by his wool broker. Unable to recall names of home medications. [...] 650 MG Q4H PRN PRN 03/18 170 PEND (TYLENOL) PO 04/17 170 Morphine Sulfate 2 MG Q4H PRN PRN 03/18 170 UNV (morphine SULFATE (C- IV 03/20 1706 II)) Morphine Sulfate 0 .STK-MED ONE 03/18 1643 DC (morphine SULFATE (C- .ROUTE II)) Fentanyl Citrate 0 .STK-MED ONE 03/18 1528 DC (SUBLIMAZE (C-II)) .ROUTE Midazolam HCl 0 .STK-MED ONE 03/18 1528 DC (VERSED (C-IV)) .ROUTE Lidocaine 0 .STK-MED ONE 03/18 152 DC (XYLOCAINE 1%) .ROUTE Diagnostic Agents Sig/Marie [...] 174 UNV (DEXTROSE 50% IN IV 04/17 174 WATER) Sodium Chloride 50 ML .STK-MED ONE 03/18 163 DC (SODIUM CHLORIDE IV 0.9%) Sodium Chloride 100 ML .STK-MED ONE 03/18 1633 DC (SODIUM CHLORIDE IV 0.9%) Gastrointestinal Drugs Sig/Marie Start time Last Medication Dose Route Stop Time Status Admin Ondansetron HCl 4 MG Q8H PRN PRN 03/18 170 UNV (ZOFRAN) IV 04/17 170 Hormones And Synthetic Substit Sig/Marie Start time Last Medication Dose Route Stop Time Status Admin Insulin Human Lispro See Dose AC HS 03/18 2100 UNV (HumaLOG) Insts (1) SUBQ 04/17 210 Glucagon 1 MG ASDIR PRN 03/18 174 UNV (GLUCAGON) IM 04/17 1746 Skin And Mucous Membrane Agent Sig/Marie Start time Last Medication Dose Route Stop Time Status Admin Mupirocin 1 APPLIC BID 03/18 2100 UNV (BACTROBAN NASAL - NASAL 03/23 0901 ADULT ICU) Dose Instructions:(1)Insulin Human Lispro (HumaLOG): LOW DOSE SLIDING SCALE Allergies:Coded Allergies:No Known Allergies (03/18/23) 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 STEMI: Coronary Artery Disease Presented with chest pain in ventricular tachycardia s/p cardioversion. Repeat EKG showed STEMIArrived via life flight straight to slab off mill tender. Dr James placed 4 stents to LADAspirin, Statin, Brilinta. Etiquette Coach would like to start beta luís tomorrowNitroglycerin [...] the patient. at 1808 at 1834 RPT #:[id number] OF REPORTEVGjrotjxgykmn4964-47-41J83:45:00Z.PDOC2 [id number] for patient unlqMJELFRCQGTPLPB8528-59-80N20:08:44 [facility] 2023-03-18 17:40:00 [id number] 5WYToJCZSFALi0YvdarR9ojuy9Dr7 wi1iZxtMHvDvr5H2MPnYg2bwkha5882-13-52B61:40:22091 8-[address] [address] PATIENT NAME: CHARAN RESTREPO ADMIT DATE: 03/18/23ACCOUNT NO: [id number] [facility] AGE[facility] 52 REPORT TYPE: ELECTROCARDIOGRAM SEX: M ADMITTING PHYSICIAN:Jesusita Osuna MD ATTENDING PHYSICIAN:Jesusita Osuna MD Order:[id number] Reason : VT Test Date/Time Stamp:SunMar 18 [...] SCHILLING at 2002 PATIENT NAME: CHARAN RESTREPO .[id number] AVAvailable for patient aodeCETLLFTMJDMNKD1267-98-17C34:03:30 [facility] 2023-03-18 17:40:00 [id number] KnHLy+j4aBainAEuGn9xdS306YdMc tBDw8yWDz/rEJUJ4XFeQKbJFtbJ6218-43-10M23:40:03667 0-[address] [address] PATIENT NAME: CHARAN RESTREPO ADMIT DATE: 03/18/23ACCOUNT NO: [id number] ROOM NO: Melvina503 AGE: 52 REPORT TYPE: ELECTROCARDIOGRAM SEX: M ADMITTING PHYSICIAN:Montez Jernigan MD ATTENDING PHYSICIAN:Montez Jernigan MD Order:[id number] Reason : VT Test Date/Time Stamp:SunMar 18 [...] SCHILLING at 1750 PATIENT NAME: CHARAN RESTREPO .[id number] AVAvailable for patient rvdtNASPZDHRPAJOSO4932-66-40W16:50:36 [facility] 2023-03-18 17:25:00 [id number] tvZTsHQ3Y8jmyuL/+aBG4jycPaZDg 4SBBcUNMtwFtg6WBIN4Zi2kB6mI0797-31-48W28:25:00 [facility] ([employer] Hospitalist History PhysicalREPORT#:[id number] REPORT STATUS: SignedDATE:03/18/23 TIME: 1724 PATIENT: CHARAN RESTREPO UNIT #: [id number]#: [id number] ROOM/BED: [facility]-ADOB: [birth year] AGE: 52 SEX: M ATTEND: Montez Jernigan MDADM AUTHOR: Davi Davison MD, MPH R2 * ALL edits or amendments must be made on the electronic/computer document * Davi Davison 03/18/23 1725:History of Present Illness HPIChief complaint:CHEST PAINPCP:PCP: Jesusita Osuna MD HPI:52 y/o M PMH DM2, HLD, CAD s/p 2 stents, HFpEF borderline, tobacco use, arthritis presented to [facility] for chest pain.Started feeling lightheaded, [...] w/ STEMI. He was emergently taken for [facility] w/ Dr. James.LHC notable for multiple obstructions/near obstructions near his [...] of motionMusculoskeletal: normal inspection, painless range of motionNeuro/PLASTICS 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, oriented X 3, CNII-XII intact, normal [...] s/p 2 stents, HFpEF borderline presented to [facility] chest pain. STEMI (ST elevation myocardial infarction) : Hypertension : HLD : CAD : HF : Hx stent03/18 AM - chest pain/dizziness, found to be in vtach at [facility]. Placed on amiodarone drip, given sync cardioversion which resolved issue. Transferred here per Dr. Schilling, found to have V1/[facility]2 [facility] stent placed. EF 20%.Per Dr. James - continue nitro drip. Defer restart home BP rx Given tirofiban in [facility], ASA, ticagrelor Avoid heparin products at this timePlan:Cardio management per Dr. Mock: Nitro drip ASA 81, ticagrelor 90 BID Atorvastatin 40 Morphine 2 IV q6 - consider d/c after 03/20 or Home rx (deferred): Entresto 24-26 BID Bisoprolol/HCTZ 02/24.25 EY3Rypmpjw A1c, is on jardiance unknown dose at dotzY7z pending, LDSS Tobacco hx : Ksfszrum41+ pack-year smoking hxMild expiratory wheezing, possible COPD [...] knowledge. Jesusita Osuna 03/18/23 1851:Attestations Teaching Physician Xdfpgzvlazg1cp visit w/ resident:I was present with the resident during the history and exam. I discussed the case with the resident and . . . agree with the findings and plan as documented in the resident's note. agree with the findings and plan as documented in the resident's note EXCEPT: at 3722 at 0903 RPT #:[id number] OF REPORTHPHistory and physical yjjoirtofdn9105-74-03A24:25:00Z.[id number] AVAvailable for patient eyyvBIQDHPSUHATNVJ3232-67-43V05:20:05 [facility] 2023-03-18 17:24:00 [id number]/zY8 bLaxOPf9SQgWBIjVwC43Gysxoc3L6 TEr7sfosvkeInAOrGNkdQCPwYlI2428-48-66A82:24:[address] [address] PATIENT NAME: CHARAN RESTREPO ADMIT DATE: 03/18/23ACCOUNT NO: [id number] ROOM NO: Z.503 AGE: 52 REPORT TYPE: [...] of the LAD, who [place] [facility] [place]. He then had VT had to be shocked and had ST elevations in V1, V2, V3. He was life-flighted to [facility] where we emergently brought into the slab off mill tender. SEDATION USED: Moderate sedation. FIELD TAX AUDITOR: Paco James MD PROCEDURAL DETAILS: The patient was brought to the slab off mill tender in an emergent fashion. He was draped in typical sterile fashion. I obtained right femoral arterial access under ultrasound guidance and inserted a 6-Irish sheath using amicropuncture kit. At this point, [...] heparin intra-arterial. I took a EBU 4 6-Irish guide up to the aortic root over [...] I then selected a 2.75 x 15 [place] Dutton stent and positioned in the distal LAD overlapping with the old stents and deployed it to PATIENT NAME: CHARAN RESTREPO nominal pressure. I then pulled the stent delivery balloon back and expanded it. I then reinflated the balloon to high pressure. I then removed that stent delivery system and brought up to 3.5 x 22 mm Dutton stent and positioned in the proximal LAD [...] positioned a 2.75 x 12 mm Valerio Dutton stent in the mid LAD and deployed [...] then positioned a2.25 x 15 mm Valerio Dutton stent distally and deployed it to slightly [...] 12 mm and 2.25 x 15 mm Dutton stent, there was 0% stenosis in ARELY 3 flow and no evidence of wire perforation or guide dissection. ESTIMATED BLOOD LOSS: There was 20 mL of blood loss. PATIENT NAME: CHARAN RESTREPO COMPLICATIONS: No complications. RECOMMENDATIONS: Recommend 4-hour of bed rest. Continue aspirin and dcetvhglnh46 mg b.i.d. Wean nitro drip tomorrow. Would hold off on diuretics until tomorrow unless the patient starts shortness of breath, in which case I would give IV Lasix and hold off on beta luís until tomorrow. Dictated By: Paco James MD Date Dictated: 03/18/2023 17:24:48Date Transcribed: 03/18/2023 22:18:00SYED/Yadira #: [id number] ID: [id number] by Paco James MD On 03/20/2023 04:12:22 PM at 0412 PATIENT NAME: CHARAN RESTREPO vauw4148-94-77V45:18:00Z.[id number] ble for patient jrnkFICKSUOUZNMWUU8583-40-25N53:13:05 [facility] 2023-03-18 15:02:00 [id number] WuFR7mpWCW6cbXzq88Xq5QG9obXk7 NKOY24K65zxhuCh7Q3mPJkkfANz5390-19-61W27:02:00 [facility] ([facility]ITALCardiology ConsultationREPORT#:[id number] REPORT STATUS: SignedDATE:03/18/23 TIME: 1502 PATIENT: CHARAN RESTREPO UNIT #: [id number]#: [id number] [facility] AGE: 52 SEX: M ATTEND: Jesusita Osuna MDADM AUTHOR: Paco James MD * ALL edits [...] separate fromany billable procedures. at 1810 RPT #:[id number] OF REPORTQNEvfbvlmlptry3890-56-70U03:02:00Z.PDOC2 [id number] for patient rlqvJJCLGWLIWGLQQG7865-93-58Z10:03:47 [facility]CAW[facility]
[2024-02-17] MEDS ORDERED: ASPIRIN 81 MG CHEWABLE TABLET ONE (03:37)
[2024-02-17] MEDS ORDERED: NITROGLYCERIN 0.4 MG/TAB SL ONE (03:38)
[2024-02-17 03:58] LABS: Absolute Basophils 0.1 K/uL (0-0.5); Absolute Eosinophils 0.2 K/uL (0-0.5); Absolute Lymphocytes (CBC) 1.8 K/uL (0.7-4.9); Absolute Monocytes 0.7 K/uL (0.1-1.3); Basophils % 1.3 % (0-1.3); Eosinophils % 2.8 % (0-4.4); Hematocrit 43.5 % (39.6-49.0); Hemoglobin 15.1 g/dL (13.6-17.9); Lymphocytes % 20.2 % (15.3-44.8); MCHC 34.7 g/dL (32.0-36.0); MCV 86.5 fL (80-100); MPV 7.8 fL (7.6-11.3); Monocytes % 8.1 % (3.3-12.3); Neutrophils % 67.6 % (41.7-73.7); Nucleated Red Blood Cells % 0.1 % (0-0); Platelets 194 thou/uL (152-406); RBC Red Blood Cell Count 5.04 M/uL (4.33-5.43)
[2024-02-17 04:04] LABS: PT Prothrombin Time 10.8 SECONDS (9.5-12.5); Protime INR 0.98
[2024-02-17] MEDS ORDERED: MORPHINE 4 MG/ML SYR ONE (04:13)
[2024-02-17] MEDS ORDERED: ONDANSETRON 4 MG/2 ML VIAL ONE (04:13)
[2024-02-17 04:17] LABS: ALT/SGPT 24 U/L (16-61); AST/SGOT 11 U/L (15-37); Albumin 3.3 g/dL (3.4-5.0); Albumin/Globulin Ratio 1.1 (1.1-1.8); Alkaline Phosphatase 74 U/L (45-117); BUN Blood Urea Nitrogen 24 mg/dL (7-18); Bicarbonate 25 mEq/L (21-32); Bilirubin Total 0.3 mg/dL (0.2-1.0); Globulin 3.1 g/dL (2.3-3.5); Glomerular Filtration Rate 84 ml/min (=/>90); Glucose Level 191 mg/dL (74-106); Lipase 28 U/L (13-75); Magnesium 2.1 mg/dL (1.6-2.4); NT PRO-BNP 384 pg/mL (<125); Protein, Total 6.4 g/dL (6.4-8.2); Sodium Level 140 mEq/L (136-145); Troponin High Sensitivity 12.7 pg/mL (<58.9)
[2024-02-17 04:19] LABS: Bilirubin Direct < 0.1 mg/dL (0-0.2); Bilirubin Indirect, Calculated ND mg/dL (0.2-0.8)
--- NOTE | 2024-02-17 04:48 | EDPHYS ---
Physician Documentation [facility] Name: Charan Restrepo Jr Age: 53 yrs Sex: Male : 1970 Arrival Date: 02/17/2024 Time: 03:13 Bed 5 Private MD: ED Vijay Gaxiola HPI: 02/16 03:30 This 53 yrs old Male presents to ER via Unassigned with complaints of Chest Pain. cp 03:30 The patient or guardian reports chest pain that is located primarily in the substernal cp area. Onset: last night. 03:30 The pain does not radiate. Associated signs and symptoms: Pertinent negatives: cp abdominal pain, cough, dizziness, lower extremity pain, lower extremity swelling, syncope, vomiting. The chest pain is described as constant. Historical: - Allergies: 03:53 No Known Allergies; pf1 - PMHx: 03:53 diabetes mellitus; Hyperlipidemia; Hypertension; Myocardial infarction; pf1 03:54 blood clot to heart; external defibrillator vest; pf1 - PSHx: 03:53 6 heart stents; bone graft; Cholecystectomy; pf1 03:54 right femur; knee; left leg; pf1 - Immunization history:: Adult Immunizations not up to date, Client reports receiving the 1st dose of the Covid vaccine, Moderna Last tetanus immunization: > 10 years ago Flu vaccine is not up to date. - Infectious Disease History:: Denies. - Social history:: Smoking status: Patient reports the use of cigarette tobacco products, smokes two packs cigarettes per day. Patient uses alcohol, but reports only rare drinking. Patient/guardian denies using street drugs. ROS: 03:33 Constitutional: Negative for body aches, chills, fever, poor PO intake, cp 03:33 Cardiovascular: Positive for chest pain, cp Exam: 03:23 ECG was reviewed by the Attending Physician. cp 03:35 Constitutional: The patient appears in no acute distress, alert, awake, cp non-diaphoretic, non-toxic, well developed, well nourished, uncomfortable, 03:35 Head/Face: Normocephalic, atraumatic. cp 03:35 Eyes: Periorbital structures: appear normal, Conjunctiva: normal, no exudate, no injection, Sclera: no appreciated abnormality, Lids and lashes: appear normal, bilaterally, 03:35 ENT: External ear(s): are unremarkable, Nose: is normal, Mouth: Lips: moist, Oral mucosa: pink and intact, moist, Posterior pharynx: Airway: no evidence of obstruction, patent, 03:35 Neck: ROM/movement: is normal, is supple, without pain, no range of motions limitations, no nuchal rigidity, 03:35 Chest/axilla: Inspection: normal, Palpation: is normal, no crepitus, no tenderness, cp 03:35 Cardiovascular: Rate: normal, Rhythm: regular, Edema: is not appreciated, JVD: is not cp appreciated, 03:35 Respiratory: the patient does not display signs of respiratory distress, Respirations: normal, no use of accessory muscles, no retractions, labored breathing, is not present, Breath sounds: are clear throughout, no decreased breath sounds, no stridor, no wheezing, 03:35 Abdomen/GI: Inspection: abdomen appears normal, Palpation: abdomen is soft and non-tender, in all quadrants, 03:35 Back: pain, is absent, ROM is normal, 03:35 Neuro: Orientation: to person, place \T\ time. Mentation: is normal, Motor: moves all fours, strength is normal, Sensation: is normal, Vital Signs: 03:15 BP 149 / 84; Pulse 64; Resp 16; Temp 98.1; Pulse Ox 99% on R/A; Weight 83.91 kg; Height pf1 5 ft. 10 in. ; Pain 8/10; 03:45 BP 107 / 81; Pulse 66; Resp 16; Pulse Ox 99% on R/A; cm10 04:00 BP 124 / 77; Pulse 65; Resp 16; Pulse Ox 99% on R/A; cm10 04:15 BP 115 / 75; Pulse 60; Resp 16; Pulse Ox 96% on R/A; cm10 04:30 BP 123 / 73; Pulse 58; Resp 16; Pulse Ox 96% on R/A; cm10 05:00 BP 108 / 63; Pulse 53; Resp 16; Pulse Ox 94% on R/A; cm10 05:45 BP 125 / 82; Pulse 64; Resp 16; Pulse Ox 98% on R/A; cm10 03:15 Body Mass Index 26.54 (83.91 kg, 177.8 cm) pf1 03:15 Pain Scale: Adult pf1 MDM: 03:16 Patient medically screened. cp 04:46 Data reviewed: vital signs, nurses notes, lab test result(s), EKG, radiologic studies, cp plain films, and as a result, I will discharge patient. 04:46 Differential diagnosis: abnormal EKG, acute myocardial infarction, pleurisy, pneumonia, cp pneumothorax, pulmonary embolus, thoracic aortic disection, unstable angina. The patient was given aspirin in the Emergency Department. I considered the following discharge prescriptions or medication management in the emergency department Medications were administered in the Emergency Department. See MAR. Independent interpretation of the following test(s) in the Emergency Department EKG: See my EKG interpretation above. Counseling: I had a detailed discussion with the patient and/or guardian regarding the historical points, exam findings, and any diagnostic results supporting the discharge/admit diagnosis, lab results, radiology results, the need for further work-up and treatment in the hospital. 02/16 03:19 Order name: Basic Metabolic Panel; Complete Time: 04:24 cp 02/16 04:24 Interpretation: Normal except: CL 112; GLUC 191; BUN 24; GFR 84. cp 02/16 03:19 Order name: CBC with Diff; Complete Time: 04:24 cp 02/16 03:19 Order name: LFT's; Complete Time: 04:24 cp 02/16 04:25 Interpretation: Normal except: AST 11; ALB 3.3. cp 02/16 03:19 Order name: Magnesium; Complete Time: 04:24 cp 02/16 03:19 Order name: NT PRO-BNP; Complete Time: 04:24 cp 02/16 04:25 Interpretation: Abnormal: NT PRO-BNP 384. cp 02/16 03:19 Order name: PT-INR; Complete Time: 04:24 cp 02/16 03:19 Order name: Troponin HS; Complete Time: 04:24 cp 02/16 04:25 Interpretation: Reviewed. cp 02/16 03:19 Order name: Lipase; Complete Time: 04:24 cp 02/16 04:56 Order name: CBC with Automated Diff EDMS 02/16 04:56 Order name: CBC with Automated Diff EDMS 02/16 04:56 Order name: Comprehensive Metabolic Panel EDMS 02/16 04:56 Order name: Comprehensive Metabolic Panel EDMS 02/16 04:56 Order name: Troponin High Sensitivity EDMS 02/16 04:56 Order name: Troponin High Sensitivity [facility] 02/16 04:56 Order name: Troponin High Sensitivity [facility] 02/16 04:56 Order name: Troponin High Sensitivity [facility] 02/16 03:19 Order name: XRAY Chest (1 view) 02/16 05:07 Order name: CONS Physician Consult [facility] 02/16 03:19 Order name: Cardiac monitoring; Complete Time: 03:35 02/16 03:19 Order name: EKG - Nurse/Tech; Complete Time: 03:35 cp 02/16 03:19 Order name: IV Saline Lock; Complete Time: 03:36 cp 02/16 03:19 Order name: Labs collected and sent; Complete Time: 03:36 02/16 03:19 Order name: O2 Per Protocol; Complete Time: 03:35 02/16 03:19 Order name: O2 Sat Monitoring; Complete Time: 03:35 02/16 03:40 Order name: Misc. Order: recollect all blood specimens per lab; Complete Time: 03:57 jb4 EC:23 Rate is 67 beats/min. Rhythm is regular. FL interval is normal. QRS interval is cp prolonged at 108 msec. QT interval is normal. Interpreted by me. Reviewed by me. Administered Medications: 03:40 Drug: Aspirin PO Chewable Tablet 324 mg PO once; 81 mg tablets x 4 Route: PO; pf1 04:25 Follow up: Response: No adverse reaction; Pain is unchanged, physician notified pf1 03:40 Drug: Nitroglycerin Sublingual 0.4 mg Sublingual once Route: Sublingual; pf1 04:25 Follow up: Response: No adverse reaction; Marked relief of symptoms; Pain is unchanged, pf1 physician notified 04:13 Drug: morphine IVP or IV 4 mg IVP once over 4 mins Route: IVP; Infused Over: 4 mins; pf1 Site: left forearm; 04:13 Drug: Ondansetron IVP 4 mg IVP once; over 2 minutes Route: IVP; Site: left forearm; pf1 Disposition Summary: 02/17/24 04:47 Hospitalization Ordered Notes: Hospitalization Status: Observation cp Provider: Jaelyn Busby cp Location: Telemetry/MedSurg (observation) cp Condition: Stable cp Problem: new cp Symptoms: have improved cp Bed/Room Type: Standard cp Room Assignment: 408(02/17/24 05:11) jb4 Diagnosis - Chest pain, unspecified cp Forms: - Medication Reconciliation Form cp - SBAR form cp - Leadership Thank You Letter cp Addendum: 02/19/2024 22:06 Co-signature as Attending Physician, Vijay Kapoor MD I agree with the assessment and c blandon plan of care. Signatures: Dispatcher [employer] EDMS Vijay Kapoor MD MD cha Page, Corey, PA PA cp Huan Esquivel, RN RN jb4 Myranda Hernandez RN RN pf1 Corrections: (The following items were deleted from the chart) 02/16 03:20 03:20 BASIC METABOLIC PANEL+C.LAB.BRZ ordered. EDMS EDMS 03:20 03:20 CBC+H.LAB.BRZ ordered. EDMS EDMS 03:20 03:20 HEPATIC FUNCTION+C.LAB.BRZ ordered. EDMS EDMS 03:20 03:20 MAGNESIUM+C.LAB.BRZ ordered. EDMS EDMS 03:20 03:20 PROBNP+C.LAB.BRZ ordered. EDMS EDMS 03:20 03:20 PROTIME (+INR)+COAG.LAB.BRZ ordered. EDMS EDMS 03:20 03:20 Troponin High Sensitivity+C.LAB.BRZ ordered. EDMS EDMS 03:20 03:20 LIPASE+C.LAB.BRZ ordered. EDMS EDMS 03:20 03:20 Chest Single View+RAD.RAD.BRZ ordered. EDMS EDMS 05:11 04:47 cp jb4
--- NOTE | 2024-02-17 04:48 | ER ---
Nurse's Notes [facility] Name: Charan Restrepo Jr Age: 53 yrs Sex: Male : 1970 Arrival Date: 02/17/2024 Time: 03:13 Bed 5 Private MD: Diagnosis: Chest pain, unspecified Presentation: 02/16 03:15 Chief complaint: Patient states: sharp constant substernal chest pain of 8,onset worse pf1 last night at 2330. Patient stated took Nitro x1 SL at 0230 this AM. 03:15 Coronavirus screen: Vaccine status: Patient reports receiving the 1st dose of the Covid pf1 vaccine. Client denies travel out of the [place] in the last 14 days. At this time, the client does not indicate any symptoms associated with coronavirus-19. Ebola Screen: Patient negative for fever greater than or equal to 101.5 degrees Fahrenheit, and additional compatible Ebola Virus Disease symptoms. Initial Sepsis Screen: Does the patient meet any 2 criteria? No. Patient's initial sepsis screen is negative. Does the patient have a suspected source of infection? No. Patient's initial sepsis screen is negative. Risk Assessment: Do you want to hurt yourself or someone else? Patient reports no desire to harm self or others. Onset of symptoms was February 16, 2024 at 23:30. Care prior to arrival: Medication(s) given: Nitroglycerin, 0.4 mg SL x 1. 03:15 Method Of Arrival: Wheelchair pf1 03:15 Acuity: MARTY 2 pf1 Triage Assessment: 03:15 General: Appears in no apparent distress. uncomfortable, well groomed, well developed, pf1 Behavior is calm, cooperative, appropriate for age, quiet. Pain: Complains of pain in chest Pain currently is 8 out of 10 on a pain scale. EENT: No deficits noted. No signs and/or symptoms were reported regarding the EENT system. Neuro: No deficits noted. Level of Consciousness is awake, alert, obeys commands, Oriented to person, place, time, situation. Cardiovascular: Reports chest pain, Capillary refill < 3 seconds Patient's skin is warm and dry. Respiratory: No deficits noted. Airway is patent Respiratory effort is even, unlabored, Respiratory pattern is regular, symmetrical. GI: No deficits noted. No signs and/or symptoms were reported involving the gastrointestinal system. : No deficits noted. No signs and/or symptoms were reported regarding the genitourinary system. Derm: No deficits noted. No signs and/or symptoms reported regarding the dermatologic system. Musculoskeletal: No deficits noted. No signs and/or symptoms reported regarding the musculoskeletal system. Historical: - Allergies: 03:53 No Known Allergies; pf1 - PMHx: 03:53 diabetes mellitus; Hyperlipidemia; Hypertension; Myocardial infarction; pf1 03:54 blood clot to heart; external defibrillator vest; pf1 - PSHx: 03:53 6 heart stents; bone graft; Cholecystectomy; pf1 03:54 right femur; knee; left leg; pf1 - Immunization history:: Adult Immunizations not up to date, Client reports receiving the 1st dose of the Covid vaccine, Moderna Last tetanus immunization: > 10 years ago Flu vaccine is not up to date. - Infectious Disease History:: Denies. - Social history:: Smoking status: Patient reports the use of cigarette tobacco products, smokes two packs cigarettes per day. Patient uses alcohol, but reports only rare drinking. Patient/guardian denies using street drugs. Screenin:15 [facility] ED Fall Risk Assessment (Adult) History of falling in the last 3 months, pf1 including since admission No falls in past 3 months (0 pts) Confusion or Disorientation No (0 pts) Intoxicated or Sedated No (0 pts) Impaired Gait No (0 pts) Mobility Assist Device Used No (0 pt) Altered Elimination No (0 pt) Score/Fall Risk Level 0 - 2 = Low Risk Oriented to surroundings, Maintained a safe environment, Educated pt \T\ family on fall prevention, incl call for assistance when getting out of bed, Assessed \T\ reinforced patient's understanding of fall precautions, Provided non-skid footwear, Hourly rounding (assess needs \T\ fall precautionary measures) done, Used ambulatory aids as needed (educated on \T\ assisted with), Used gait belt as appropriate. Abuse screen: Denies threats or abuse. Nutritional screening: No deficits noted. Tuberculosis screening: No symptoms or risk factors identified. Assessment: 03:58 Reassessment: Patient appears in no apparent distress at this time. Patient and/or pf1 family updated on plan of care and expected duration. Pain level reassessed. Patient is alert, oriented x 3, equal unlabored respirations, skin warm/dry/pink. Patient states symptoms have not improved. 04:26 Reassessment: Patient appears in no apparent distress at this time. Patient and/or pf1 family updated on plan of care and expected duration. Pain level reassessed. Patient is alert, oriented x 3, equal unlabored respirations, skin warm/dry/pink. 06:08 Reassessment: Pt transferred upstairs via wheelchair. Pt has life vest turned off. This cm10 nurse asked patient to turn life vest back on since patient was being transported upstairs and patient states that he does not want to turn it back on since he will be placed on tele when he gets upstairs. Receive nurse upstairs made aware that patient had taken life vest off. Vital Signs: 03:15 BP 149 / 84; Pulse 64; Resp 16; Temp 98.1; Pulse Ox 99% on R/A; Weight 83.91 kg; Height pf1 5 ft. 10 in. ; Pain 8/10; 03:45 BP 107 / 81; Pulse 66; Resp 16; Pulse Ox 99% on R/A; cm10 04:00 BP 124 / 77; Pulse 65; Resp 16; Pulse Ox 99% on R/A; cm10 04:15 BP 115 / 75; Pulse 60; Resp 16; Pulse Ox 96% on R/A; cm10 04:30 BP 123 / 73; Pulse 58; Resp 16; Pulse Ox 96% on R/A; cm10 05:00 BP 108 / 63; Pulse 53; Resp 16; Pulse Ox 94% on R/A; cm10 05:45 BP 125 / 82; Pulse 64; Resp 16; Pulse Ox 98% on R/A; cm10 03:15 Body Mass Index 26.54 (83.91 kg, 177.8 cm) pf1 03:15 Pain Scale: Adult pf1 ED Course: 03:15 Patient arrived in ED. [id number] 03:15 Vijay Stoll PA is PHCP. cp 03:15 Vijay Kapoor MD is Attending Physician. cp 03:15 Arm band placed on right wrist. pf1 03:15 Patient has correct armband on for positive identification. Placed in gown. Bed in low cm10 position. Call light in reach. Side rails up X2. Provided Education on: ER PROCESS AND PROCEDURES. 03:25 No provider procedures requiring assistance completed. Initial lab(s) drawn, by ED pf1 staff, sent to lab. EKG done, by ED staff. 03:34 XRAY Chest (1 view) In Process Unspecified. EDMS 03:36 Inserted saline lock: 18 gauge in left forearm, using aseptic technique. cm10 03:36 Missed attempt(s): 18 gauge in right forearm. Bleeding controlled, band aid applied, cm10 catheter tip intact. 03:53 Triage completed. pf1 04:47 Jaelyn Busby MD is Hospitalizing Provider. cp 05:19 REPORT FAXED AT 0516. ATTEMPTED TO CALL FLOOR AND NOTIFY THAT REPORT HAD BEEN SENT AT 10 0518 WITH NO ANSWER X2. 05:30 Patient admitted, IV remains in place. cm10 Administered Medications: 03:40 Drug: Aspirin PO Chewable Tablet 324 mg PO once; 81 mg tablets x 4 Route: PO; pf1 04:25 Follow up: Response: No adverse reaction; Pain is unchanged, physician notified pf1 03:40 Drug: Nitroglycerin Sublingual 0.4 mg Sublingual once Route: Sublingual; pf1 04:25 Follow up: Response: No adverse reaction; Marked relief of symptoms; Pain is unchanged, pf1 physician notified 04:13 Drug: morphine IVP or IV 4 mg IVP once over 4 mins Route: IVP; Infused Over: 4 mins; pf1 Site: left forearm; 04:13 Drug: Ondansetron IVP 4 mg IVP once; over 2 minutes Route: IVP; Site: left forearm; pf1 Medication: 05:30 VIS not applicable for this client. cm10 Outcome: 04:47 Decision to Hospitalize by Provider. cp 05:54 Admitted to Tele accompanied by nurse, via wheelchair, room 408, cm10 05:54 Condition: good 05:54 Instructed on the need for admit, 05:54 Patient left the ED. cm10 Signatures: Dispatcher [employer] EDMS Vijay Stoll PA PA cp Bryson, James, RN RN jb4 Myranda Hernandez RN RN pf1 Sheree Larson RN RN cm10
[2024-02-17] MEDS ORDERED: ONDANSETRON 4 MG/2 ML VIAL IV PRN (04:50)
[2024-02-17] MEDS ORDERED: ALBUTEROL 2.5 MG/3 ML NEB SOL NEB PRN (04:50)
[2024-02-17] MEDS ORDERED: ACETAMINOPHEN 500 MG TAB PO PRN (04:50)
[2024-02-17] MEDS ORDERED: ASPIRIN EC 81 MG TAB PO SCH (05:00)
--- NOTE | 2024-02-17 05:04 | P.HP ---
Certification for Inpatient Patient admitted to: Observation With expected LOS: <2 Midnights Patient will require the following post-hospital care: None Practitioner: I am a practitioner with admitting privileges, knowledge of patient current condition, hospital course, and medical plan of care. Services: Services provided to patient in accordance with Admission requirements found in Title 42 Section 412.3 of the Code of Federal Regulations Patient History Date of Service: 02/17/24 Reason for admission: Chest pain History of Present Illness: 53-year-old male with history of HTN/DM/CAD status post previous PCI, recent cardiac cath 3 months ago with finding of for in-stent thrombosis, recurrent chest pain and admitted DA but transferred later same day to [facility] 2 months ago for further care; he states he was diagnosed with a cardiac thrombosis and was told he needed bypass of both he was to be on Coumadin until his cardiac thrombus resolved before the bypass, ; patient presented now because of recurrence of chest pain chest pains in the substernal chest area nonradiating not associated with palpitation or dizziness. Chest pain onset was about 4 hours ago. On arrival to ED in the ED EKG was unremarkable with normal ST segments Noriega mild QTc prolongation. Initial set of troponin was negative. Chest x-ray shows no acute infiltrates or pulmonary congestive changes. Patient has been admitted for atypical chest pain. Patient states he takes his warfarin 4 mg daily. He has not had this level checked since discharge. He states he was told to follow-up with Dr. Rodriguez which she has not seen since the last 2 months. He became belligerent when I tried to explain to him that he needs to check his INR weekly at least for monitoring his Coumadin level Allergies No Known Drug Allergies Allergy (Verified 06/21/17 20:11) Unknown Home Medications: Aspirin [Aspirin EC 81 MG] 81 mg PO SEECOM 11/05/23 Hydrocodone 10/APAP 325 [[place] 10/325*] 1 tab PO BID PRN 11/05/23 Sacubitril/Valsartan [Entresto 24 mg-26 mg Tablet] 1 each PO DAILY 11/05/23 Atorvastatin Calcium [Lipitor] 40 mg PO BEDTIME #30 tab 11/06/23 Clopidogrel Bisulfate [Plavix*] 75 mg PO DAILY #30 tab 11/06/23 Metoprolol Tartrate [Lopressor*] 25 mg PO BID 6AM 6PM #60 tab 11/06/23 Acetaminophen [Tylenol*] 650 mg PO Q4HP PRN tab 11/26/23 Enoxaparin Sodium [Lovenox 40 MG INJ*] 40 mg SQ DAILY syr 11/26/23 Insulin -Regular Human [Novolin -R*] See Protocol SQ ACHS ml 11/26/23 Mag Hydroxide 8% [Milk Of Magnesia*] 30 ml PO DAILYPRN PRN 11/26/23 - Past Medical/Surgical History Diabetic: Yes -: mycardial infarction x3 -: HTN -: kidney stones -: CAD -: HLD -: cholecystectomy -: left leg fixator -: right knee sx -: left elbow sx -: cardiac cath 3 w/ stent x2 over 5 years ago; pt w/ 4 stents in April -: bone graft -: right femur sx - Family History Father -: Heart disease, Cancer - Social History Smoking Status: Current every day smoker Smoking therapy provided: Yes Patient receptive to therapy: Yes Alcohol use: Yes CD- Drugs: No Caffeine use: Yes Place of Residence: Home Review of Systems 10-point ROS is otherwise unremarkable Physical Examination - Physical Exam General: Alert, In no apparent distress, Oriented x3 HEENT: Atraumatic, Normocephalic, PERRLA Neck: Supple, 2+ carotid pulse no bruit, JVD not distended Respiratory: Clear to auscultation bilaterally, Normal air movement Cardiovascular: Normal pulses, Regular rate/rhythm, Normal S1 S2 Gastrointestinal: Normal bowel sounds, Soft and benign, Non-distended, No ascites Musculoskeletal: No clubbing, No swelling Integumentary: No rashes, No breakdown, No significant lesion Neurological: Normal speech, Normal strength at 5/5 x4 extr, Sensation intact, Cranial nerves 3-12 intact Lymphatics: No axilla or inguinal lymphadenopathy External genitalia: No edema, No lesions - Studies Laboratory Data (last 24 hrs) 02/17/24 02/17/24 02/17/24 03:45 03:45 03:45 WBC 8.90 Hgb 15.1 Hct 43.5 Plt Count 194 PT 10.8 INR 0.98 Sodium 140 Potassium 4.0 BUN 24 H Creatinine 1.05 Glucose 191 H Magnesium 2.1 Total Bilirubin 0.3 AST 11 L ALT 24 Alkaline Phosphatase 74 Lipase 28 Assessment and Plan - Plan Impression Atypical chest pain History of CADin need of CABG Hypertension DM HLD Combined systolic CHF history History of cardiac thrombosisself-reported Plan Will admit patient to observation Cardiology consult in a.m. If positive troponin or after consultation with cardiology might need transfer if actual non-STEMI Sublingual nitro as needed Resume home regimen Obtain INR level, restart Coumadin Insulin/scale with Accu-Chek Full code Tobacco cessation advised, start nicotine patch - Advance Directives Does patient have a Living Will: No Does patient have a Durable POA for Healthcare: No
[2024-02-17] MEDS: METOPROLOL TAR 25 MG TAB PO SCH (06:00)
[2024-02-17] MEDS: NITROGLYCERIN 0.2 MG/HR (5 MG) PATCH TD SCH (08:18)
[2024-02-17] MEDS: SPIRONOLACTONE 25 MG TABLET PO SCH (08:19)
[2024-02-17] MEDS: NICOTINE 21 MG/PAT TD SCH (08:19)
[2024-02-17] MEDS: VALSARTAN 80 MG TAB PO SCH (08:19)
[2024-02-17] MEDS: MORPHINE 2 MG/ML SYR IV PRN (08:19)
[2024-02-17] MEDS: CLOPIDOGREL 75 MG TABLET PO SCH (08:19)
[2024-02-17] MEDS: INSULIN REGULAR (HUMAN) 100 UNIT/ML SQ SCH (08:20)
[2024-02-17 08:50] VITALS: BMI 26.5
[2024-02-17] MEDS ORDERED: SACUBITRIL/VALSARTAN 24/26 MG TAB PO SCH (09:00)
[2024-02-17] MEDS: HYDROCODONE/APAP 10/325 TAB PO PRN (09:04)
[2024-02-17 09:36] LABS: PT Prothrombin Time 11.4 SECONDS (9.5-12.5); Protime INR 1.04
[2024-02-17] MEDS: ENOXAPARIN 80 MG/0.8 ML SQ SCH (10:21)
[2024-02-17] MEDS: MORPHINE 4 MG/ML SYR IV PRN (12:19)
--- NOTE | 2024-02-17 12:33 | P.CNS ---
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 no other cardiac symptoms. Allergies No Known Drug Allergies Allergy (Verified 06/21/17 20:11) Unknown Home Medications: Aspirin [Aspirin EC 81 MG] 81 mg PO SEECOM 11/05/23 Hydrocodone 10/APAP 325 [[place] 10/325*] 1 tab PO TID PRN 11/05/23 Sacubitril/Valsartan [Entresto 24 mg-26 mg Tablet] 1 each PO DAILY 11/05/23 Clopidogrel Bisulfate [Plavix*] 75 mg PO DAILY #30 tab 11/06/23 Amiodarone HCl [Pacerone] 400 mg PO BID 02/17/24 - Past Medical/Surgical History Diabetic: Yes -: mycardial infarction x3 -: HTN -: kidney stones -: CAD -: HLD -: cholecystectomy -: left leg fixator -: right knee sx -: left elbow sx -: cardiac cath 3 w/ stent x2 over 5 years ago; pt w/ 4 stents in April -: bone graft -: right femur sx - Family History Father Medical History: Heart disease, Cancer - Social History Smoking Status: Current every day smoker Alcohol use: Yes CD- Drugs: No Caffeine use: Yes Place of Residence: Home Review of Systems 10-point ROS is otherwise unremarkable Physical Examination Temp Pulse Resp BP Pulse Ox 97.0 F 58 14 125/67 100 02/17/24 08:00 02/17/24 08:18 02/17/24 12:19 02/17/24 08:18 02/17/24 12:19 General: Alert, Oriented x3 HEENT: Atraumatic Neck: Supple Respiratory: Clear to auscultation bilaterally Cardiovascular: No edema, Normal S1 S2 Gastrointestinal: Normal bowel sounds Laboratory Data (last 24 hrs) 02/17/24 02/17/24 02/17/24 03:45 03:45 03:45 WBC 8.90 Hgb 15.1 Hct 43.5 Plt Count 194 PT 10.8 INR 0.98 Sodium 140 Potassium 4.0 BUN 24 H Creatinine 1.05 Glucose 191 H Magnesium 2.1 Total Bilirubin 0.3 AST 11 L ALT 24 Alkaline Phosphatase 74 Lipase 28 - Problems (1) Chronic heart failure with reduced ejection fraction and diastolic dysfunction Current Visit: Yes Status: Acute Plan: Continue Metoprolol 25 mg po BID Continue Valsartan 80 mg daily Continue Aldactone Continue amiodarone 200 mg po BID (2) Chest pain, rule out acute myocardial infarction Current Visit: No Status: Acute Plan: Patient known to have CAD, 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 add Imdur 30 mg daily (3) Hyperlipidemia Onset Date: 06/22/17 Current Visit: No Status: Chronic Plan: Continue Lipitor 40 mg daily Qualifiers: Hyperlipidemia type: unspecified Qualified Code(s): E78.5 - Hyperlipidemia, unspecified (4) Hypertension Onset Date: 02/16/15 Current Visit: No Status: Chronic Plan: continue medications as above. Qualifiers: Hypertension type: essential hypertension (5) LV (left ventricular) mural thrombus Current Visit: Yes Status: Acute Plan: Coumadin 10 mg pox1 then continue 4 mg daily, pharmacy consult to help adjust dosage. bridge with lovenox patient will need repeated Echo with contrast vs cardiac MRI to check on thrombus resolution (will be arranged as outpatient).
[2024-02-17] MEDS: WARFARIN SODIUM 2 MG TAB PO SCH (16:54)
--- NOTE | 2024-02-17 16:56 | RAD REPORT ---
EXAM DESCRIPTION: RAD - Chest Single View - 02/17/2024 3:33 am CLINICAL HISTORY: CHEST PAIN. COMPARISON: None. FINDINGS: The heart size is within normal limits. There is no pulmonary vascular congestion. No cons olidation, pleural effusion, or pneumothorax is seen. The bony structures are preserved. IMPRESSION: No evidence of acute cardiopulmonary disease. Electronically signed by: Rich Klein MD 02/17/2024 03:47 AM CDT Due to temporary technical issues with the PACS/Fluency reporting system, reports are being signed by the in house radiologists without review as a courtesy to insure prompt reporting. The interpreting radiologist is fully responsible for the content of the report.
[2024-02-17] MEDS: AMIODARONE HCL 200 MG TAB PO SCH (20:35)
[2024-02-17] MEDS: ATORVASTATIN 40 MG TAB PO SCH (20:35)
--- NOTE | 2024-02-17 21:28 | P.PN ---
Date of Service: 02/17/24 seen this morning on rounds, shortly after admission. pain continues, no worsening trop negative x2 subtherapeutic INR patient states has clot in heart/coronary artery. OSH records unavailable; suspect LV thrombus; will check in with Cardio needs to bridge his coumadin since INR is 0.9 currently will give 10mg coumadin tonight continue regular dose tomorrow lovenox ordered to help bridge
[2024-02-18 07:15] LABS: PT Prothrombin Time 11.1 SECONDS (9.5-12.5); Protime INR 1.01
[2024-02-18 07:17] LABS: Absolute Basophils 0.1 K/uL (0-0.5); Absolute Eosinophils 0.3 K/uL (0-0.5); Absolute Monocytes 0.7 K/uL (0.1-1.3); Absolute Neutrophil 5.8 K/uL (1.8-8.0); Basophils % 1.1 % (0-1.3); Eosinophils % 3.6 % (0-4.4); Hematocrit 44.5 % (39.6-49.0); Hemoglobin 15.3 g/dL (13.6-17.9); Lymphocytes % 22.4 % (15.3-44.8); MCH 29.9 pg (27.0-35.0); MCHC 34.4 g/dL (32.0-36.0); MCV 86.9 fL (80-100); MPV 8.6 fL (7.6-11.3); Monocytes % 8.3 % (3.3-12.3); Neutrophils % 64.6 % (41.7-73.7); Nucleated Red Blood Cells % 0.1 % (0-0); Platelets 225 thou/uL (152-406); RBC Red Blood Cell Count 5.12 M/uL (4.33-5.43); Red Cell Distribution Width 14.5 % (12.1-15.2)
[2024-02-18 07:21] LABS: Albumin 3.5 g/dL (3.4-5.0); Albumin/Globulin Ratio 1.1 (1.1-1.8); Anion Gap -6.1 mEq/L (5.0-15.0); Bilirubin Total 0.4 mg/dL (0.2-1.0); Globulin 3.1 g/dL (2.3-3.5); Potassium 3.9 mEq/L (3.5-5.1); Protein, Total 6.6 g/dL (6.4-8.2)
--- NOTE | 2024-02-18 09:46 | P.PN ---
Subjective Date of Service: 02/18/24 Chief Complaint: Chest pain Subjective: No new changes Review of Systems 10-point ROS is otherwise unremarkable Physical Examination - Vital Signs Temperature: 97.8 F Blood Pressure: 134/70 Pulse: 59 Respirations: 17 Pulse Ox (%): 98 - Physical Exam General: Alert, Oriented x3 HEENT: Atraumatic Neck: Supple Respiratory: Clear to auscultation bilaterally Cardiovascular: No edema, Normal S1 S2 Gastrointestinal: Normal bowel sounds Assessment And Plan - Current Problems (Diagnosis) (1) Chronic heart failure with reduced ejection fraction and diastolic dysfunction Current Visit: Yes Status: Acute Plan: Continue Metoprolol 25 mg po BID Continue Valsartan 80 mg daily Continue Aldactone Continue amiodarone 200 mg po BID (2) Chest pain, rule out acute myocardial infarction Current Visit: No Status: Acute Plan: 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 Continue Imdur 30 mg daily (3) Hyperlipidemia Onset Date: 06/22/17 Current Visit: No Status: Chronic Plan: Continue Lipitor 40 mg daily Qualifiers: Hyperlipidemia type: unspecified Qualified Code(s): E78.5 - Hyperlipidemia, unspecified (4) Hypertension Onset Date: 02/16/15 Current Visit: No Status: Chronic Plan: continue medications as above. Qualifiers: Hypertension type: essential hypertension (5) LV (left ventricular) mural thrombus Current Visit: Yes Status: Acute Plan: Coumadin 4 mg daily, pharmacy consult to help adjust dosage. bridge with lovenox patient will need repeated Echo with contrast vs cardiac MRI to check on thrombus resolution (will be arranged as outpatient).
[2024-02-18] MEDS: WARFARIN SODIUM 6 MG TAB PO ONE (10:43)
--- NOTE | 2024-02-18 12:55 | EKG ---
Test Date: 2024-02-18 Test Time: 11:38:41 Human Resources Trainee: CHARLIE MEASUREMENT RESULTS: Intervals: Rate: 57 OK: 180 QRSD: 108 QT: 414 QTc: 402 [place]: P: 57 OK: 180 QRS: -58 T: 37 INTERPRETIVE STATEMENTS: Sinus bradycardia Left anterior fascicular block Inferior infarct, age undetermined Anterolateral infarct, age undetermined Abnormal ECG Compared to ECG 02/17/2024 03:18:25 Left anterior fascicular block now present Sinus rhythm no longer present Myocardial infarct finding still present Electronically Signed On 02-18-24 12:54:24 CDT by Pepe Rodriguez
--- NOTE | 2024-02-18 12:58 | EKG ---
Test Date: 2024-02-17 Test Time: 03:18:25 Spray Rig Operator: ISELA MEASUREMENT RESULTS: Intervals: Rate: 67 MO: 180 QRSD: 108 QT: 416 QTc: 439 [place]: P: 55 MO: 180 QRS: 164 T: 10 INTERPRETIVE STATEMENTS: Normal sinus rhythm Inferior infarct, age undetermined Anterolateral infarct, age undetermined Abnormal ECG Compared to ECG 12/27/2023 09:30:55 No significant changes Electronically Signed On 02-18-24 12:55:16 CDT by Pepe Rodriguez
[2024-02-18] MEDS ORDERED: WARFARIN SODIUM 6 MG TAB PO ONE (21:30)
--- NOTE | 2024-02-19 07:24 | P.PN ---
Date of Service: 02/18/24 Subjective: no acute events overnight chest pain unchanged ROS: as noted above, otherwise 10 point ROS negative Physical Exam: Gen: NAD, AOx3 CV: regular rate/rhythm, +murmur, no edema Pulm: clear to auscultation bilaterally, nonlabored respirations on room air Abd: soft, nontender, nondistended Neuro: moves all extremities, normal affect Problem List: chest pain History of CADin need of CABG history of LV thrombus, on anticoagulation Hypertension DM HLD Combined systolic CHF history pain continues, no worsening trop negative x3 subtherapeutic INR has LV thrombus seems to have not been compliant with coumadin / INR checks; cost may be prohibitive needs to bridge his coumadin since INR is 0.9 10mg given loading continue regular dose bridging with lovenox VTE: lovenox bridge, coumadin Code: full Dispo: home, once INR > 2 Time Spent Managing Pts Care (In Minutes): 35
[2024-02-19 07:38] LABS: PT Prothrombin Time 13.9 SECONDS (9.5-12.5); Protime INR 1.27
--- NOTE | 2024-02-19 12:42 | P.PN ---
Subjective Date of Service: 02/19/24 Chief Complaint: Chest pain Subjective: No new changes Review of Systems 10-point ROS is otherwise unremarkable Physical Examination - Vital Signs Temperature: 97.0 F Blood Pressure: 140/71 Pulse: 64 Respirations: 16 Pulse Ox (%): 100 - Physical Exam General: Alert, Oriented x3 HEENT: Atraumatic Neck: Supple Respiratory: Clear to auscultation bilaterally Cardiovascular: No edema, Normal S1 S2 Gastrointestinal: Normal bowel sounds Assessment And Plan - Current Problems (Diagnosis) (1) Chronic heart failure with reduced ejection fraction and diastolic dysfunction Current Visit: Yes Status: Acute Plan: Continue Metoprolol 25 mg po BID Continue Valsartan 80 mg daily Continue Aldactone Continue amiodarone 200 mg po BID (2) Chest pain, rule out acute myocardial infarction Current Visit: No Status: Acute Plan: 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 Continue Imdur 30 mg daily (3) Hyperlipidemia Onset Date: 06/22/17 Current Visit: No Status: Chronic Plan: Continue Lipitor 40 mg daily Qualifiers: Hyperlipidemia type: unspecified Qualified Code(s): E78.5 - Hyperlipidemia, unspecified (4) Hypertension Onset Date: 02/16/15 Current Visit: No Status: Chronic Plan: continue medications as above. Qualifiers: Hypertension type: essential hypertension (5) LV (left ventricular) mural thrombus Current Visit: Yes Status: Acute Plan: Coumadin 4 mg daily, pharmacy consult to help adjust dosage. bridge with lovenox patient will need repeated Echo with contrast vs cardiac MRI to check on thrombus resolution (will be arranged as outpatient).
--- NOTE | 2024-02-19 19:15 | P.PN ---
Subjective Date of Service: 02/19/24 Chief Complaint: Chest pain Patient denies any complaint. He reports chronic constant chest pain but denies shortness of breath. Physical Examination - Vital Signs Temperature: 98.0 F Blood Pressure: 120/64 Pulse: 69 Respirations: 16 Pulse Ox (%): 98 - Studies Laboratory Data (last 24 hrs) 02/19/24 06:05 PT 13.9 H INR 1.27 Assessment And Plan - Plan Physical Exam: Gen: NAD, AOx3 CV: regular rate/rhythm, +murmur, no edema Pulm: clear to auscultation bilaterally, adequate breath sounds bilaterally. Abd: soft, nontender, nondistended Neuro: moves all extremities, normal affect Problem List: chest pain History of CADin need of CABG history of LV thrombus, on anticoagulation Hypertension DM HLD Combined systolic CHF history Plan: Analgesics as needed. trop negative x3 INR is responding to Coumadin. Continue Lovenox bridge and titrate to Coumadin per pharmacy Cardiology is following. Continue amiodarone and Aldactone. Patient appears compensated for CHF. Insulin sliding scale for glucose management. VTE: lovenox bridge, coumadin Code: full Dispo: home.
[2024-02-20 10:54] LABS: PT Prothrombin Time 17.8 SECONDS (9.5-12.5); Protime INR 1.64
--- NOTE | 2024-02-20 15:13 | P.PN ---
Subjective Date of Service: 02/20/24 Chief Complaint: Chest pain Patient has no new complaint. He denies any chest pain or shortness of breath today. Physical Examination - Vital Signs Temperature: 97.4 F Blood Pressure: 115/66 Pulse: 72 Respirations: 18 Pulse Ox (%): 98 Assessment And Plan - Plan Physical Exam: Gen: NAD, AOx3 CV: regular rate/rhythm, +murmur, no edema Pulm: clear to auscultation bilaterally, adequate breath sounds bilaterally. Abd: soft, nontender, nondistended Neuro: moves all extremities, normal affect Diagnosis Angina History of CADin need of CABG history of LV thrombus, on anticoagulation Hypertension DM HLD Combined systolic CHF history Plan: Analgesics as needed. trop negative x3 Nitrates as needed for INR is responding to Coumadin. INR is trending up Continue Lovenox bridge and titrate to Coumadin per pharmacy Cardiology is following. Continue amiodarone and Aldactone. Patient appears compensated for CHF. Insulin sliding scale for glucose management. VTE: lovenox bridge, coumadin Code: full Dispo: home.
[2024-02-21 04:03] LABS: PT Prothrombin Time 19.7 SECONDS (9.5-12.5); Protime INR 1.82
--- NOTE | 2024-02-21 10:52 | P.PN ---
Subjective Date of Service: 02/21/24 Chief Complaint: Chest pain Subjective: No new changes Review of Systems 10-point ROS is otherwise unremarkable Physical Examination - Vital Signs Temperature: 98.3 F Blood Pressure: 107/65 Pulse: 94 Respirations: 20 Pulse Ox (%): 98 - Physical Exam General: Alert, Oriented x3 HEENT: Atraumatic Neck: Supple Respiratory: Clear to auscultation bilaterally Cardiovascular: No edema, Normal S1 S2 Gastrointestinal: Normal bowel sounds Assessment And Plan - Current Problems (Diagnosis) (1) Chronic heart failure with reduced ejection fraction and diastolic dysfunction Current Visit: Yes Status: Acute Plan: Continue Metoprolol 25 mg po BID Continue Valsartan 80 mg daily Continue Aldactone Continue amiodarone 200 mg po BID (2) Chest pain, rule out acute myocardial infarction Current Visit: No Status: Acute Plan: 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 Continue Imdur 30 mg daily (3) Hyperlipidemia Onset Date: 06/22/17 Current Visit: No Status: Chronic Plan: Continue Lipitor 40 mg daily Qualifiers: Hyperlipidemia type: unspecified Qualified Code(s): E78.5 - Hyperlipidemia, unspecified (4) Hypertension Onset Date: 02/16/15 Current Visit: No Status: Chronic Plan: continue medications as above. Qualifiers: Hypertension type: essential hypertension (5) LV (left ventricular) mural thrombus Current Visit: Yes Status: Acute Plan: Coumadin 4 mg daily, pharmacy consult to help adjust dosage. bridge with lovenox patient will need repeated Echo with contrast vs cardiac MRI to check on thrombus resolution (will be arranged as outpatient).
--- NOTE | 2024-02-21 12:24 | P.PN ---
Subjective Date of Service: 02/21/24 Chief Complaint: Chest pain Patient has no new complaint. He reports intermittent chest pain. Physical Examination - Vital Signs Temperature: 98.3 F Blood Pressure: 107/65 Pulse: 94 Respirations: 20 Pulse Ox (%): 98 Assessment And Plan - Plan Physical Exam: Gen: NAD, AOx3 CV: regular rate/rhythm, +murmur, no edema Pulm: clear to auscultation bilaterally, adequate breath sounds bilaterally. Abd: soft, nontender, nondistended Neuro: moves all extremities, normal affect Diagnosis Angina History of CADin need of CABG history of LV thrombus, on anticoagulation Hypertension DM HLD Combined systolic CHF history Plan: Analgesics as needed. trop negative x3 Nitrates as needed for INR is responding to Coumadin. INR is 1.8. Continue Lovenox bridge and titrate to Coumadin per pharmacy Cardiology is following. Continue amiodarone and Aldactone. He is compensated for CHF. Insulin sliding scale for glucose management. VTE: lovenox bridge, coumadin Code: full Dispo: home.
[2024-02-21] MEDS: WARFARIN SODIUM 5 MG TAB PO SCH (17:24)
[2024-02-22 10:04] LABS: PT Prothrombin Time 19.1 SECONDS (9.5-12.5); Protime INR 1.77
[2024-02-22 11:25] LABS: PT Prothrombin Time 21.8 SECONDS (9.5-12.5); Protime INR 2.02
[2024-02-22] MEDS: MORPHINE 2 MG/ML SYR IV PRN (11:33)
[2024-02-22] MEDS ORDERED: ALBUTEROL 2.5 MG/3 ML NEB SOL NEB PRN (12:44)
[2024-02-22] MEDS: MORPHINE 4 MG/ML SYR IV PRN (15:35)
--- NOTE | 2024-02-22 19:21 | P.DS ---
Admission Date: 02/19/24 Discharge Date: 02/22/24 Disposition: ROUTINE DISCHARGE Discharge Condition: FAIR Reason for Admission: Chest pain Brief History of Present Illness: 53-year-old male with history of HTN/DM/CAD status post previous PCI, recent cardiac cath 3 months ago with finding of for in-stent thrombosis, recurrent chest pain, admitted but transferred later same day to [facility] 2 months ago for further care. He stated he was diagnosed with a cardiac thrombosis and was told he needed bypass and need to be on Coumadin until his cardiac thrombus resolved before the bypass. Patient presented because of recurrence of chest pain chest pains in the substernal chest area. On arrival to ED in the ED EKG was unremarkable with normal ST segments Noriega mild QTc prolongation. Initial set of troponin was negative. Chest x-ray shows no acute infiltrates or pulmonary congestive changes. Patient was admitted for chest pain. Patient states he takes his warfarin 4 mg daily. He has not had this level checked since discharge. He states he was told to follow-up with Dr. Rodriguez which he did not for 2 months. Hospital Course: Patient admitted to the medical floor and the following medical problems addressed: Diagnosis Angina History of CADin need of CABG history of LV thrombus, on anticoagulation Hypertension DM HLD Combined systolic CHF history Trop negative x3 Patient placedon Coumadin with lovenox bridge. INR improved to 2.0, lovenox discontinued Cardiology evaluated patient and followed during the course of the hospital stay. Continued amiodarone and Aldactone. He appeared compensated for CHF. Patient reported intermittent chest pain which was managed mostly with morphine and Esbon. He is prescribed Esbon for pain management. Vitals were stable during the hospital stay. Vital Signs/Physical Exam: Temp Pulse Resp BP Pulse Ox 97.4 F 84 18 103/59 L 97 02/22/24 12:00 02/22/24 12:00 02/22/24 15:35 02/22/24 12:02/22/24 15:35 General: Alert, In no apparent distress, Oriented x3 HEENT: Mucous membr. moist/pink Neck: Supple, JVD not distended Respiratory: Clear to auscultation bilaterally, Normal air movement Cardiovascular: No edema, Regular rate/rhythm, Normal S1 S2 Gastrointestinal: Normal bowel sounds, Soft and benign, Non-distended, No tenderness Musculoskeletal: No swelling Integumentary: No rashes, No cyanosis Neurological: Normal strength at 5/5 x4 extr Laboratory Data at Discharge: WBC 9.00 thou/uL (4.3-10.9) 02/18/24 05:54 Hgb 15.3 g/dL (13.6-17.9) 02/18/24 05:54 Hct 44.5 % (39.6-49.0) 02/18/24 05:54 Plt Count 225 thou/uL (152-406) 02/18/24 05:54 PT 21.8 SECONDS (9.5-12.5) H 02/22/24 10:51 INR 2.02 02/22/24 10:51 Sodium 131 mEq/L (136-145) L D 02/18/24 05:54 Potassium 3.9 mEq/L (3.5-5.1) 02/18/24 05:54 BUN 25 mg/dL (7-18) H 02/18/24 05:54 Creatinine 1.08 mg/dL (0.70-1.30) 02/18/24 05:54 Glucose 204 mg/dL (74-106) H 02/18/24 05:54 Magnesium 2.1 mg/dL (1.6-2.4) 02/17/24 03:45 Total Bilirubin 0.4 mg/dL (0.2-1.0) 02/18/24 05:54 AST 20 U/L (15-37) 02/18/24 05:54 ALT 29 U/L (16-61) 02/18/24 05:54 Alkaline Phosphatase 80 U/L (45-117) 02/18/24 05:54 Lipase 28 U/L (13-75) 02/17/24 03:45 Home Medications: Aspirin [Aspirin EC 81 MG] 81 mg PO SEECOM 11/05/23 Sacubitril/Valsartan [Entresto 24 mg-26 mg Tablet] 1 each PO DAILY 11/05/23 Amiodarone HCl [Cordarone*] 200 mg PO BID #60 tab 02/22/24 Atorvastatin Calcium [Lipitor] 40 mg PO BEDTIME #30 tab 02/22/24 Clopidogrel Bisulfate [Plavix*] 75 mg PO DAILY #30 tab 02/22/24 Hydrocodone 10/APAP 325 [Esbon 10/325*] 1 tab PO TID PRN #12 tab 02/22/24 Isosorbide Mononitrate [Isosorbide Mononitrate ER] 30 mg PO DAILY #30 tab 02/22/24 Spironolactone [Aldactone*] 50 mg PO DAILY #30 tab 02/22/24 Warfarin Sodium [Coumadin*] 5 mg PO DAILY 5 PM #30 tab 02/22/24 New Medications: Spironolactone [Aldactone*] 50 mg PO DAILY #30 tab Amiodarone HCl [Cordarone*] 200 mg PO BID #60 tab Warfarin Sodium [Coumadin*] 5 mg PO DAILY 5 PM #30 tab Isosorbide Mononitrate [Isosorbide Mononitrate ER] 30 mg PO DAILY #30 tab Atorvastatin Calcium [Lipitor] 40 mg PO BEDTIME #30 tab Hydrocodone 10/APAP 325 [Esbon 10/325*] 1 tab PO TID PRN #12 tab PRN Reason: Pain Scale 5-7 (Moderate) Clopidogrel Bisulfate [Plavix*] 75 mg PO DAILY #30 tab Diet: AHA Activity: Ad selvin Followup: Pepe Rodriguez MD [Primary Care Provider] - (Follow up with Dr. Rodriguez on M onday 02/25/2024 for PT/INR check and follow up for your cardiac issue.) Time spent managing pt's care (in minutes): 34
--- NOTE | 2024-02-22 20:39 | PN ---
Date of Progress Note: 02/22/2024 Subjective: Seen at bedside, doing clinically well. Review of Systems: No chest pain, shortness of breath, orthopnea, or cough. No nausea, vomiting, or diarrhea. All othe r systems reviewed, they are negative. Objective: Vital Signs: Reviewed. Head and Neck: Pupils are equal, reactive to light. Intact eye movements. No JVD. No cervical lym phadenopathy. Neck: Supple. Thyroid is not enlarged. Lungs: Clear to auscultation bilaterally. No rhonchi, rales, or crackles. No accessory muscle use. Heart: Regular rate and rhythm. No extra sounds. Abdomen: Soft, nontender. Bowel sounds positive. No organomegaly. No masses or hernia. No rigidi ty or rebound. Extremities: No edema, clubbing, or cyanosis. Intact pulses. Skin: No rashes. Neurologic: Alert, awake, and oriented x3. No acute focal deficits appreciated. Lymph Nodes: No cervical or axillary lymphadenopathy. Investigations: Labs reviewed. Assessment/recommendation: 1.Acute coronary artery disease. CT of the LAD, pending coronary artery bypass graft, once his LV t hrombus is resolved. 2.LV thrombus. Continue to overlap Lovenox with Coumadin. This is the second day, INR is therapeut ic. He can be released on Coumadin and follow up in my office on Sunday to recheck INR and adjust fu rther if needed. 3.Hypertension, well controlled. 4.Dyslipidemia, continue Lipitor. 5.Congestive heart failure, chronic and stable to the current therapy. SR/MODL Voice ID: [id number] Report ID: [id number]
[2024-02-23 14:39] VITALS: BP 115/58
[2024-02-23 14:42] VITALS: O2SAT 97
[2024-02-23 14:43] VITALS: TEMP 98
== END 2024-02-22 17:55 | disposition home or self-care (01) | DRG 303 ==
LOC: ER 03:13 → ERHOLD 04:50 → 4TH 05:36 → OBSVTOIN 02-19 13:33
PROVIDERS: ADMIT Internal Medicine; ATTEND Internal Medicine
DX: I25.119 Atherosclerotic heart disease of native coronary artery with unspecified angina pectoris (principal); I50.42 Chronic combined systolic (congestive) and diastolic (congestive) heart failure; I11.0 Hypertensive heart disease with heart failure; E11.9 Type 2 diabetes mellitus without complications; E78.5 Hyperlipidemia, unspecified; I51.3 Intracardiac thrombosis, not elsewhere classified; F17.210 Nicotine dependence, cigarettes, uncomplicated; I25.2 Old myocardial infarction; Z79.4 Long term (current) use of insulin; Z95.5 Presence of coronary angioplasty implant and graft; Z79.82 Long term (current) use of aspirin; Z79.01 Long term (current) use of anticoagulants; Z90.49 Acquired absence of other specified parts of digestive tract; Z79.02 Long term (current) use of antithrombotics/antiplatelets; Z79.899 Other long term (current) drug therapy
CPT/HCPCS: 36415; 71045; 80048; 80053; 80076; 82947; 83690; 83735; 83880; 84484; 85025; 85610; 93005; 96374; 96375; 99285; G0378; J1815; J2270; J2405

== ENCOUNTER 2024-02-25 05:38 | Emergency (ER) | payer OTHER, SELFPAY ==
--- OUTSIDE RECORDS SUMMARY | 2024-02-25 05:44 | XMS REPORT | Continuity of Care Document ---
Author Name Unknown Address [address] [facility] [place] [address] [facility] thconnect Address [address] [facility] [address] [place] [address] Care Team Providers Care Engineering Technologist Name Role Phone Carmen Spencer Attending Clinician Unavailable Jemal Young Attending Clinician Unavailable Papo Mayfield Attending Clinician UnavailMontez Grace Attending Clinician Unavailable Jac Marsh Admitting Clinician Unavailable Papo Mayfield Admitting Clinician UnavailMontez Grace Admitting Clinician Unavailable Payers Payer Name Policy Type Policy Number Effective Date Expirati on Date Source [facility] 6 [id number] 2019 00:00:00 [facility] Problems Condition Name Condition Details Condition Category Status Onset Date Resolution Date Last Treatment Date Treating Clinician Comments Source [id number] Chronic pain syndrome Problem [facility] [id number] Essential hypertensi on Problem [facility] [id number] Coronary stent patent Problem [facility] [id number] Coronary artery disease of [place] heart with stable angina pectoris, unspecifie d vessel or lesion type Problem [facility] [id number] Type 2 diabetes mellitus with hyperglyce solange, without long-term current use of insulin Problem [facility] [id number] Nicotine abuse Problem [facility] Allergies, Adverse Reactions, Alerts Allergy Name Allergy Type Status Severity Reaction(s) Onset Date Inactive Date Treating Clinician Comments Source No Known Allergie s DA Active U 03-18 00:00: 00 [facility] Social History Social Habit Start Date Stop Date Quantity Comments Source History of Tobacco Use Current Smoker [facility] Sex Assigned At [facility] Smoking Status Start Date Stop Date Source Current Smoker 2022-11-09 00:00:00 [facility] Medications Ordered Medication Name Filled Medication Name [...] height 2022-10-10 10:40:00 70 [in_i] Commo n [facility] weight 2022-10-10 10:40:00 198 [lb_av] Comm on [facility] temperature 2022-10-10 10:40:00 97.9 [degF] Com mon [facility] bmi 2022-10-10 10:40:00 28.41 kg/m2 Comm on [facility] oximetry 2022-10-10 10:40:00 98 % Commo n [facility] respiratory rate 2022-10-10 10:40:00 17 /min [facility] blood pressure systolic 2022-10-10 10:40:00 132 mm[Hg] [facility] blood pressure diastolic 2022-10-10 10:40:00 87 mm[Hg] [facility] Procedures Procedure Date / Time Performed Performing Clinicia n Source [id number] 2023-11-30 00:00:00 CHAAB.01 [facility] [id number] 2023-11-30 00:00:00 CHASH.07 [facility] [id number] 2023-03-18 00:00:00 LUKDA [facility] [id number] 2023-03-18 00:00:00 BUCSC [facility] [id number] 2023-03-18 00:00:00 LUKDA [facility] [id number] 2023-03-18 00:00:00 LUKDA [facility] [id number] 2023-03-18 00:00:00 LUKDA [facility] [id number] 2023-03-18 00:00:00 LUKDA [facility] [id number] 2023-03-18 00:00:00 KDA [facility] Encounters Start Date/Time End Date/Time Encounter Type Admission Type Attending Clinicians Care Facility Care Department Encounter ID Source 2022-11-07 07:49:00 Outpatient Carmen Spencer [facility] [id number] [facility] 2022-10-17 15:16:02 Outpatient Carmen Spencer [facility] [id number] [facility] 2022-10-11 12:49:02 Outpatient Carmen Spencer [facility] [id number] [facility] 2022-10-10 10:34:05 Outpatient Carmen Spencer [facility] [id number] [facility] 2023-12-27 15:16:00 2024-01-08 14:20:00 Inpatient EM Jemal Young HCACL INTE.02 [id number] [facility] 2023-11-27 00:28:00 2023-12-03 15:18:00 Inpatient EM Papo Mayfield HCACL INTE [id number] 35 [facility] 2023-05-16 11:13:22 2023-05-16 11:13:22 Outpatient SFA SFA [id number] [facility] 2023-03-18 14:57:00 2023-03-20 16:25:00 Inpatient Montez Kay HCAWU MEDI [id number] [facility] 2023-02-19 00:00:00 2023-02-19 00:00:00 (TEL) STLMLC STLC [id number] [facility] 2022-10-10 00:00:00 2022-10-10 00:00:00 OFFICE VISIT ESTAB PT LEVEL 4 STLMLC STLMLC [id number] [facility] Results Test Description Test Time Test Comments Results Result Co mments Source GLUCOSE [id number] 08:39:00* Test Item Value Reference Range Interpretation Comme nts GLUCOSE BEDSIDE (test code = GLUBED) 224 MG/DL 70-110 H Performed by cer tified kapok machine operator at [facility] BASIC METABOLIC [id number] 05:38:00* Test Item Value Reference Range Interpretation [...] code = CA) 9.6 mg/dL 8.0-10.5 N [id number] 05:38:00* Test Item Value Reference Range Interpretation Comme nts MAGNESIUM (test code = MAG) 1.92 mg/dL 1.6-2.6 N CBC W/AUTO [id number] 05:32:00* Test Item Value Reference Range Interpretation [...] NRBC#) 0.00 x10 3/uL 0.0-0.1 N PROTHROMBIN [id number] 05:31:00* Test Item Value Reference Range Interpretation [...] infarct). COMMENTS: INR X 9 DAYSTHROMBOPLASTIN TIME [id number] 05:31:00* Test Item Value Reference Range Interpretation Comme nts THROMBOPLASTIN TIME PARTIAL (test code = PTT) 67.3 Seconds 25.0-39.5 H Therapeutic Rang e: 50.4 - 88.3 Seconds Effective 02/04/2019 COMMENTS: INR X 9 DAYSGLUCOSE [id number] 20:37:00* Test Item Value Reference Range Interpretation Comme nts GLUCOSE BEDSIDE (test code = GLUBED) 150 MG/DL 70-110 H Performed by [facility] [employer] kapok machine operator at [facility] THROMBOPLASTIN TIME [id number] 18:35:00* Test Item Value Reference Range Interpretation Comme nts THROMBOPLASTIN TIME PARTIAL (test code = PTT) 66.0 Seconds 25.0-39.5 H Therapeutic Rang e: 50.4 - 88.3 Seconds Effective 02/04/2019 GLUCOSE [id number] 17:06:00* Test Item Value Reference Range Interpretation Comme nts GLUCOSE BEDSIDE (test code = GLUBED) 215 MG/DL 70-110 H Performed by [facility] [employer] kapok machine operator at [facility] THROMBOPLASTIN TIME [id number] 13:31:00* Test Item Value Reference Range Interpretation Comme nts THROMBOPLASTIN TIME PARTIAL (test code = PTT) 56.8 Seconds 25.0-39.5 H Therapeutic Rang e: 50.4 - 88.3 Seconds Effective 02/04/2019 GLUCOSE [id number] 12:41:00* Test Item Value Reference Range Interpretation Comme nts GLUCOSE BEDSIDE (test code = GLUBED) 136 MG/DL 70-110 H Performed by [facility] [employer] kapok machine operator at [facility] GLUCOSE [id number] 08:37:00* Test Item Value Reference Range Interpretation Comme nts GLUCOSE BEDSIDE (test code = GLUBED) 261 MG/DL 70-110 H Performed by [facility] [employer] kapok machine operator at [facility] BASIC METABOLIC [id number] 05:33:00* Test Item Value Reference Range Interpretation [...] code = CA) 9.3 mg/dL 8.0-10.5 N [id number] 05:33:00* Test Item Value Reference Range Interpretation Comme nts MAGNESIUM (test code = MAG) 1.98 mg/dL 1.6-2.6 N PROTHROMBIN [id number] 04:58:00* Test Item Value Reference Range Interpretation [...] infarct). COMMENTS: INR X 9 DAYSTHROMBOPLASTIN TIME [id number] 04:58:00* Test Item Value Reference Range Interpretation Comme nts THROMBOPLASTIN TIME PARTIAL (test code = PTT) 78.6 Seconds 25.0-39.5 H Therapeutic Rang e: 50.4 - 88.3 Seconds Effective 02/04/2019 COMMENTS: PROTOCOLCBC W/AUTO [id number] 04:47:00* Test Item Value Reference Range Interpretation [...] NRBC#) 0.00 x10 3/uL 0.0-0.1 N GLUCOSE [id number] 21:14:00* Test Item Value Reference Range Interpretation Comme nts GLUCOSE BEDSIDE (test code = GLUBED) 160 MG/DL 70-110 H Performed by cer tified kapok machine operator at [facility] THROMBOPLASTIN TIME [id number] 20:55:00* Test Item Value Reference Range Interpretation Comme nts THROMBOPLASTIN TIME PARTIAL (test code = PTT) 71.0 Seconds 25.0-39.5 H Therapeutic Rang e: 50.4 - 88.3 Seconds Effective 02/04/2019 COMMENTS: PROTOCOLGLUCOSE [id number] 17:37:00* Test Item Value Reference Range Interpretation Comme nts GLUCOSE BEDSIDE (test code = GLUBED) 203 MG/DL 70-110 H Performed by cer tified kapok machine operator at [facility] GLUCOSE [id number] 12:16:00* Test Item Value Reference Range Interpretation Comme nts GLUCOSE BEDSIDE (test code = GLUBED) 140 MG/DL 70-110 H Performed by cer tified kapok machine operator at [facility] GLUCOSE [id number] 08:54:00* Test Item Value Reference Range Interpretation Comme nts GLUCOSE BEDSIDE (test code = GLUBED) 213 MG/DL 70-110 H Performed by cer tified kapok machine operator at [facility] GLUCOSE [id number] 08:33:00* Test Item Value Reference Range Interpretation Comme nts GLUCOSE BEDSIDE (test code = GLUBED) 297 MG/DL 70-110 H Performed by cer tified kapok machine operator at [facility] BASIC METABOLIC [id number] 06:28:00* Test Item Value Reference Range Interpretation [...] code = CA) 9.2 mg/dL 8.0-10.5 N [id number] 06:28:00* Test Item Value Reference Range Interpretation Comme nts PHOSPHOROUS (test code = PHOS) 4.2 MG/DL 2.5-4.9 N [id number] 06:28:00* Test Item Value Reference Range Interpretation Comme nts MAGNESIUM (test code = MAG) 1.93 mg/dL 1.6-2.6 N CBC W/AUTO [id number] 05:51:00* Test Item Value Reference Range Interpretation [...] NRBC#) 0.00 x10 3/uL 0.0-0.1 N PROTHROMBIN [id number] 05:38:00* Test Item Value Reference Range Interpretation [...] infarct). COMMENTS: INR X 9 DAYSTHROMBOPLASTIN TIME [id number] 05:38:00* Test Item Value Reference Range Interpretation Comme nts THROMBOPLASTIN TIME PARTIAL (test code = PTT) 87.3 Seconds 25.0-39.5 H Therapeutic Rang e: 50.4 - 88.3 Seconds Effective 02/04/2019 COMMENTS: INR X 9 DAYSGLUCOSE [id number] 20:09:00* Test Item Value Reference Range Interpretation Comme nts GLUCOSE BEDSIDE (test code = GLUBED) 265 MG/DL 70-110 H Performed by cer tified kapok machine operator at [facility] GLUCOSE [id number] 15:50:00* Test Item Value Reference Range Interpretation Comme nts GLUCOSE BEDSIDE (test code = GLUBED) 125 MG/DL 70-110 H Performed by cer tified kapok machine operator at [facility] PROTHROMBIN [id number] 15:36:00* Test Item Value Reference Range Interpretation [...] (to prevent recurrent infarct). COMMENTS: INR NOWGLUCOSE [id number] 11:33:00* Test Item Value Reference Range Interpretation Comme nts GLUCOSE BEDSIDE (test code = GLUBED) 183 MG/DL 70-110 H Performed by [facility] tified kapok machine operator at [facility] GLUCOSE [id number] 08:53:00* Test Item Value Reference Range Interpretation Comme nts GLUCOSE BEDSIDE (test code = GLUBED) 193 MG/DL 70-110 H Performed by [facility] tified kapok machine operator at [facility] COMPREHENSIVE METABOLIC [id number] 04:05:00* Test Item Value Reference Range Interpretation [...] code = ALKP) 78 IUnit/L 20-125 N [id number] 04:05:00* Test Item Value Reference Range Interpretation Comme nts MAGNESIUM (test code = MAG) 1.88 mg/dL 1.6-2.6 N THROMBOPLASTIN TIME [id number] 03:57:00* Test Item Value Reference Range Interpretation Comme nts THROMBOPLASTIN TIME PARTIAL (test code = PTT) 74.6 Seconds 25.0-39.5 H Therapeutic Rang e: 50.4 - 88.3 Seconds Effective 02/04/2019 CBC W/AUTO [id number] 03:47:00* Test Item Value Reference Range Interpretation [...] NRBC#) 0.00 x10 3/uL 0.0-0.1 N GLUCOSE [id number] 21:27:00* Test Item Value Reference Range Interpretation Comme [facility] GLUCOSE BEDSIDE (test code = GLUBED) 213 MG/DL 70-110 H Performed by cer tified kapok machine operator at [facility] GLUCOSE [id number] 16:59:00* Test Item Value Reference Range Interpretation Comme nts GLUCOSE BEDSIDE (test code = GLUBED) 258 MG/DL 70-110 H Performed by cer tified kapok machine operator at [facility] GLUCOSE [id number] 11:55:00* Test Item Value Reference Range Interpretation Comme nts GLUCOSE BEDSIDE (test code = GLUBED) 159 MG/DL 70-110 H Performed by cer tified kapok machine operator at [facility] GLUCOSE [id number] 08:36:00* Test Item Value Reference Range Interpretation Comme nts GLUCOSE BEDSIDE (test code = GLUBED) 231 MG/DL 70-110 H Performed by [facility] tified kapok machine operator at [facility] THROMBOPLASTIN TIME [id number] 06:10:00* Test Item Value Reference Range Interpretation Comme nts THROMBOPLASTIN TIME PARTIAL (test code = PTT) 66.1 Seconds 25.0-39.5 H Therapeutic Rang e: 50.4 - 88.3 Seconds Effective 02/04/2019 BASIC METABOLIC [id number] 05:30:00* Test Item Value Reference Range Interpretation [...] code = CA) 8.8 mg/dL 8.0-10.5 N [id number] 05:30:00* Test Item Value Reference Range Interpretation Comme nts PHOSPHOROUS (test code = PHOS) 3.4 MG/DL 2.5-4.9 N [id number] 05:30:00* Test Item Value Reference Range Interpretation Comme nts MAGNESIUM (test code = MAG) 1.79 mg/dL 1.6-2.6 N CALCIUM [id number] 05:30:00* Test Item Value Reference Range Interpretation Comme nts CALCIUM IONIZED (test code = MONICA) 1.06 MMOL/L 1.09-1.30 L CBC W/AUTO [id number] 04:56:00* Test Item Value Reference Range Interpretation [...] NRBC#) 0.00 x10 3/uL 0.0-0.1 N GLUCOSE [id number] 20:49:00* Test Item Value Reference Range Interpretation Comme nts GLUCOSE BEDSIDE (test code = GLUBED) 221 MG/DL 70-110 H Performed by cer [employer] kapok machine operator at [facility] GLUCOSE [id number] 17:32:00* Test Item Value Reference Range Interpretation Comme nts GLUCOSE BEDSIDE (test code = GLUBED) 206 MG/DL 70-110 H Performed by [employer] kap[employer] machine operator at [facility] GLUCOSE [id number] 11:50:00* Test Item Value Reference Range Interpretation Comme nts GLUCOSE BEDSIDE (test code = GLUBED) 182 MG/DL 70-110 H Performed by cer [employer] kapok machine operator at [facility] GLUCOSE [id number] 09:15:00* Test Item Value Reference Range Interpretation Comme nts GLUCOSE BEDSIDE (test code = GLUBED) 195 MG/DL 70-110 H Performed by [employer] kapok machine operator at [facility] BASIC METABOLIC [id number] 05:52:00* Test Item Value Reference Range Interpretation [...] code = CA) 9.0 mg/dL 8.0-10.5 N [id number] 05:52:00* Test Item Value Reference Range Interpretation Comme nts PHOSPHOROUS (test code = PHOS) 3.3 MG/DL 2.5-4.9 N [id number] 05:52:00* Test Item Value Reference Range Interpretation Comme nts MAGNESIUM (test code = MAG) 1.76 mg/dL 1.6-2.6 CALCIUM [id number] 05:52:00* Test Item Value Reference Range Interpretation Comme nts CALCIUM IONIZED (test code = MONICA) 1.14 MMOL/L 1.09-1.30 N THROMBOPLASTIN TIME [id number] 05:38:00* Test Item Value Reference Range Interpretation Comme nts THROMBOPLASTIN TIME PARTIAL (test code = PTT) 64.8 Seconds 25.0-39.5 H Therapeutic Rang e: 50.4 - 88.3 Seconds Effective 02/04/2019 CBC W/AUTO [id number] 05:26:00* Test Item Value Reference Range Interpretation [...] NRBC#) 0.00 x10 3/uL 0.0-0.1 N GLUCOSE [id number] 20:31:00* Test Item Value Reference Range Interpretation Comme nts GLUCOSE BEDSIDE (test code = GLUBED) 232 MG/DL 70-110 H Performed by cer tified kapok machine operator at [facility] GLUCOSE [id number] 16:28:00* Test Item Value Reference Range Interpretation Comme nts GLUCOSE BEDSIDE (test code = GLUBED) 186 MG/DL 70-110 H Performed by cer tified kapok machine operator at [facility] GLUCOSE [id number] 11:34:00* Test Item Value Reference Range Interpretation Comme nts GLUCOSE BEDSIDE (test code = GLUBED) 239 MG/DL 70-110 H Performed by cer tified kapok machine operator at [facility] THROMBOPLASTIN TIME [id number] 09:00:00* Test Item Value Reference Range Interpretation Comme nts THROMBOPLASTIN TIME PARTIAL (test code = PTT) 77.8 Seconds 25.0-39.5 H Therapeutic Rang e: 50.4 - 88.3 Seconds Effective 02/04/2019 GLUCOSE [id number] 08:44:00* Test Item Value Reference Range Interpretation Comme nts GLUCOSE BEDSIDE (test code = GLUBED) 197 MG/DL 70-110 H Performed by cer tified kapok machine operator at [facility] THROMBOPLASTIN TIME [id number] 03:53:00* Test Item Value Reference Range Interpretation Comme nts THROMBOPLASTIN TIME PARTIAL (test code = PTT) 66.2 Seconds 25.0-39.5 H Therapeutic Rang e: 50.4 - 88.3 Seconds Effective 02/04/2019 COMMENTS: PTT THERAPUTIC RANGE 55-75Comment: CHECK PTT [id number] METABOLIC [id number] 02:27:00* Test Item Value Reference Range Interpretation [...] code = CA) 9.7 mg/dL 8.0-10.5 N [id number] 02:27:00* Test Item Value Reference Range Interpretation Comme nts PHOSPHOROUS (test code = PHOS) 3.2 MG/DL 2.5-4.9 N [id number] 02:27:00* Test Item Value Reference Range Interpretation Comme nts MAGNESIUM (test code = MAG) 2.08 mg/dL 1.6-2.6 N CALCIUM [id number] 02:27:00* Test Item Value Reference Range Interpretation Comme nts CALCIUM IONIZED (test code = MONICA) 1.17 MMOL/L 1.09-1.30 N CBC W/AUTO [id number] 01:59:00* Test Item Value Reference Range Interpretation [...] 0.00 x10 3/uL 0.0-0.1 N THROMBOPLASTIN TIME [id number] 21:30:00* Test Item Value Reference Range Interpretation Comme nts THROMBOPLASTIN TIME PARTIAL (test code = PTT) 65.5 Seconds 25.0-39.5 H Therapeutic Rang e: 50.4 - 88.3 Seconds Effective 02/04/2019 GLUCOSE [id number] 20:14:00* Test Item Value Reference Range Interpretation Comme nts GLUCOSE BEDSIDE (test code = GLUBED) 193 MG/DL 70-110 H Performed by cer tified kapok machine operator at [facility] GLUCOSE [id number] 16:48:00* Test Item Value Reference Range Interpretation Comme nts GLUCOSE BEDSIDE (test code = GLUBED) 205 MG/DL 70-110 H Performed by cer tified kapok machine operator at [facility] GLUCOSE [id number] 13:05:00* Test Item Value Reference Range Interpretation Comme nts GLUCOSE BEDSIDE (test code = GLUBED) 119 MG/DL 70-110 H Performed by cer tified kapok machine operator at [facility] THROMBOPLASTIN TIME [id number] 12:46:00* Test Item Value Reference Range Interpretation Comme nts THROMBOPLASTIN TIME PARTIAL (test code = PTT) 50.1 Seconds 25.0-39.5 H Therapeutic Rang e: 50.4 - 88.3 Seconds Effective 02/04/2019 COMMENTS: PTT THERAPUTIC RANGE 55-75Comment: CHECK PTT [id number] BEDSIDE 2024-01-01 11:43:00* Test Item Value Reference Range Interpretation Comme nts GLUCOSE BEDSIDE (test code = GLUBED) 122 MG/DL 70-110 H Performed by cer tified kapok machine operator at [facility] GLUCOSE [id number] 09:37:00* Test Item Value Reference Range Interpretation Comme nts GLUCOSE BEDSIDE (test code = GLUBED) 260 MG/DL 70-110 H Performed by cer tified kapok machine operator at [facility] GLUCOSE [id number] 07:57:00* Test Item Value Reference Range Interpretation Comme nts GLUCOSE BEDSIDE (test code = GLUBED) 245 MG/DL 70-110 H Performed by cer tified kapok machine operator at [facility] THROMBOPLASTIN TIME [id number] 06:41:00* Test Item Value Reference Range Interpretation Comme nts THROMBOPLASTIN TIME PARTIAL (test code = PTT) 55.9 Seconds 25.0-39.5 H Therapeutic Rang e: 50.4 - 88.3 Seconds Effective 02/04/2019 BASIC METABOLIC [id number] 05:37:00* Test Item Value Reference Range Interpretation [...] code = CA) 9.0 mg/dL 8.0-10.5 N [id number] 05:37:00* Test Item Value Reference Range Interpretation Comme nts PHOSPHOROUS (test code = PHOS) 3.3 MG/DL 2.5-4.9 N [id number] 05:37:00* Test Item Value Reference Range Interpretation Comme nts MAGNESIUM (test code = MAG) 1.92 mg/dL 1.6-2.6 N CALCIUM [id number] 05:37:00* Test Item Value Reference Range Interpretation Comme nts CALCIUM IONIZED (test code = MONICA) 1.21 MMOL/L 1.09-1.30 N CBC W/AUTO [id number] 05:09:00* Test Item Value Reference Range Interpretation [...] 0.00 x10 3/uL 0.0-0.1 N THROMBOPLASTIN TIME [id number] 01:23:00* Test Item Value Reference Range Interpretation Comme nts THROMBOPLASTIN TIME PARTIAL (test code = PTT) 61.9 Seconds 25.0-39.5 H Therapeutic Rang e: 50.4 - 88.3 Seconds Effective 02/04/2019 COMMENTS: PTT THERAPUTIC RANGE 55-75Comment: CHECK PTT Q6HRS- CTA HEART W CN [id number] 00:00:00 [facility] 1970 Sex: M Name: CHARAN RESTREPO [facility] : 1970 Age/S: 53 / M [address] [place] [address] Blvd Unit #: [id number] Loc: [place] [address] Phys: Papo Mayfield MD Acct: [id number] Dis Date: Status: ADM INPHONE #: [phone] Exam Date: 01/01/2024 1443 FAX #: [phone] Reason: edy for Exam: evaluate for LV thrombus EXAMS: CPT CODE: [id number] CTA HEART W CN ART/GRAFTS 73443 Radiation Dose CTDIVOL= 83.12 (mGy): DLP = [...] with no contrast identified within the distal [place] LAD. Patent ramus intermedius. Left circumflex artery (LCx): There is mixed plaque within the left circumflex artery resulting in minimal to mild stenosis. There is minimal stenosis ofthe 1st obtuse marginal branch. PAGE 1 Signed Report (CONTINUED) Name: CHARAN RESTREPO [facility] Xiang Marti : 1970 Age/S: 53 / M [address] [place] [address] Unit #: [id number] Loc: [place] [address] Phys: Papo Mayfield MD Acct: [id number] Dis Date: Status: ADM IN PHONE #: [phone] Exam Date: 01/01/2024 1443 FAX #: [phone] Reason: edy for Exam: evaluate for LV thrombus EXAMS: CPT CODE: [id number] CTA HEART W CN ART/GRAFTS [id number] (Continued) Right coronary artery (RCA): Calcified plaque [...] MG/DL 70-110 H Performed by cer tified kapok machine operator at [facility] THROMBOPLASTIN TIME [id number] 18:50:00* Test Item Value Reference Range Interpretation Comme nts THROMBOPLASTIN TIME PARTIAL (test code = PTT) 65.6 Seconds 25.0-39.5 H Therapeutic Rang e: 50.4 - 88.3 Seconds Effective 02/04/2019 COMMENTS: PTT 55-75Comment: ONE TIMEGLUCOSE [id number] 17:39:00* Test Item Value Reference Range Interpretation Comme nts GLUCOSE BEDSIDE (test code = GLUBED) 175 MG/DL 70-110 H Performed by cer tified kap[employer] machine operator at [facility] THROMBOPLASTIN TIME [id number] 13:08:00* Test Item Value Reference Range Interpretation Comme nts THROMBOPLASTIN TIME PARTIAL (test code = PTT) 52.9 Seconds 25.0-39.5 H Therapeutic Rang e: 50.4 - 88.3 Seconds Effective 02/04/2019 COMMENTS: PTT THERAPUTIC RANGE 55-75Comment: CHECK PTT [id number] BEDSIDE 2023-12-31 12:59:00* Test Item Value Reference Range Interpretation Comme nts GLUCOSE BEDSIDE (test code = GLUBED) 143 MG/DL 70-110 H Performed by cer tified kapok machine operator at [facility] GLUCOSE [id number] 11:57:00* Test Item Value Reference Range Interpretation Comme nts GLUCOSE BEDSIDE (test code = GLUBED) 109 MG/DL 70-110 N Performed by cer tified [facility] machine operator [facility] [facility] BASIC METABOLIC [id number] 09:58:00* Test Item Value Reference Range Interpretation [...] code = CA) 8.9 mg/dL 8.0-10.5 N [id number] 09:58:00* Test Item Value Reference Range Interpretation Comme nts PHOSPHOROUS (test code = PHOS) 3.5 MG/DL 2.5-4.9 N [id number] 09:58:00* Test Item Value Reference Range Interpretation Comme nts MAGNESIUM (test code = MAG) 2.09 mg/dL 1.6-2.6 N CALCIUM [id number] 09:58:00* Test Item Value Reference Range Interpretation Comme nts CALCIUM IONIZED (test code = MONICA) 1.08 MMOL/L 1.09-1.30 L CBC W/AUTO [id number] 09:44:00* Test Item Value Reference Range Interpretation [...] NRBC#) 0.00 x10 3/uL 0.0-0.1 N GLUCOSE [id number] 09:06:00* Test Item Value Reference Range Interpretation Comme nts GLUCOSE BEDSIDE (test code = GLUBED) 174 MG/DL 70-110 H Performed by cer tified kapok machine operator at [facility] THROMBOPLASTIN TIME [id number] 08:00:00* Test Item Value Reference Range Interpretation Comme nts THROMBOPLASTIN TIME PARTIAL (test code = PTT) 47.8 Seconds 25.0-39.5 H Therapeutic Rang e: 50.4 - 88.3 Seconds Effective 02/04/2019 GLUCOSE [id number] 21:16:00* Test Item Value Reference Range Interpretation Comme [facility] GLUCOSE BEDSIDE (test code = GLUBED) 187 MG/DL 70-110 H Performed by [facility] tified kapok machine operator at [facility] THROMBOPLASTIN TIME [id number] 20:32:00* Test Item Value Reference Range Interpretation Comme [facility] THROMBOPLASTIN TIME PARTIAL (test code = PTT) 38.7 Seconds 25.0-39.5 N Therapeutic Rang e: 50.4 - 88.3 Seconds Effective 02/04/2019 GLUCOSE [id number] 16:43:00* Test Item Value Reference Range Interpretation Comme [facility] GLUCOSE BEDSIDE (test code = GLUBED) 236 MG/DL 70-110 H Performed by [facility] tified kapok machine operator at [facility] PROTHROMBIN [id number] 13:22:00* Test Item Value Reference Range Interpretation Comme [facility] PROTHROMBIN TIME PATIENT (test code = [...] prior to initiation of heparinComment: infusionTHROMBOPLASTIN TIME [id number] 13:22:00* Test Item Value Reference Range Interpretation Comme [facility] THROMBOPLASTIN TIME PARTIAL (test code = PTT) 37.1 Seconds 25.0-39.5 N Therapeutic Rang e: 50.4 - 88.3 Seconds Effective 02/04/2019 COMMENTS: STAT if not done within 24 hours prior to initiation of heparinComment: infusionGLUCOSE [id number] 10:58:00* Test Item Value Reference Range Interpretation Comme nts GLUCOSE BEDSIDE (test code = GLUBED) 131 MG/DL 70-110 H Performed by cer yasir kapok machine operator at [facility] BASIC METABOLIC [id number] 06:15:00* Test Item Value Reference Range Interpretation [...] code = CA) 9.0 mg/dL 8.0-10.5 N [id number] 06:15:00* Test Item Value Reference Range Interpretation Comme nts PHOSPHOROUS (test code = PHOS) 3.8 MG/DL 2.5-4.9 N [id number] 06:15:00* Test Item Value Reference Range Interpretation Comme nts MAGNESIUM (test code = MAG) 1.98 mg/dL 1.6-2.6 N CALCIUM [id number] 06:15:00* Test Item Value Reference Range Interpretation Comme nts CALCIUM IONIZED (test code = MONICA) 1.15 MMOL/L 1.09-1.30 N CBC W/AUTO [id number] 05:21:00* Test Item Value Reference Range Interpretation [...] NRBC#) 0.00 x10 3/uL 0.0-0.1 N GLUCOSE [id number] 19:59:00* Test Item Value Reference Range Interpretation Comme nts GLUCOSE BEDSIDE (test code = GLUBED) 173 MG/DL 70-110 H Performed by cer tified kapok machine operator at [facility] GLUCOSE [id number] 16:13:00* Test Item Value Reference Range Interpretation Comme nts GLUCOSE BEDSIDE (test code = GLUBED) 180 MG/DL 70-110 H Performed by cer tified kapok machine operator at [facility] GLUCOSE [id number] 11:33:00* Test Item Value Reference Range Interpretation Comme nts GLUCOSE BEDSIDE (test code = GLUBED) 140 MG/DL 70-110 H Performed by cer tified kapok machine operator at [facility] GLUCOSE [id number] 07:32:00* Test Item Value Reference Range Interpretation Comme nts GLUCOSE BEDSIDE (test code = GLUBED) 203 MG/DL 70-110 H Performed by cer tified kapok machine operator at [facility] BASIC METABOLIC [id number] 06:10:00* Test Item Value Reference Range Interpretation [...] code = CA) 8.7 mg/dL 8.0-10.5 N [id number] 06:10:00* Test Item Value Reference Range Interpretation Comme nts PHOSPHOROUS (test code = PHOS) 3.9 MG/DL 2.5-4.9 N [id number] 06:10:00* Test Item Value Reference Range Interpretation Comme nts MAGNESIUM (test code = MAG) 2.21 mg/dL 1.6-2.6 N CALCIUM [id number] 06:10:00* Test Item Value Reference Range Interpretation Comme nts CALCIUM IONIZED (test code = MONICA) 1.14 MMOL/L 1.09-1.30 N CBC W/AUTO [id number] 05:35:00* Test Item Value Reference Range Interpretation [...] NRBC#) 0.00 x10 3/uL 0.0-0.1 N GLUCOSE [id number] 20:36:00* Test Item Value Reference Range Interpretation Comme nts GLUCOSE BEDSIDE (test code = GLUBED) 178 MG/DL 70-110 H Performed by cer yasir kapok machine operator at [facility] [id number] 19:57:00* Test Item Value Reference Range Interpretation Comme nts MAGNESIUM (test code = MAG) 2.29 mg/dL 1.6-2.6 BASIC METABOLIC [id number] 18:29:00* Test Item Value Reference Range Interpretation [...] = CA) 8.5 mg/dL 8.0-10.5 N GLUCOSE [id number] 17:23:00* Test Item Value Reference Range Interpretation Comme nts GLUCOSE BEDSIDE (test code = GLUBED) 200 MG/DL 70-110 H Performed by cer tified kapok machine operator at [facility] GLUCOSE [id number] 08:05:00* Test Item Value Reference Range Interpretation Comme nts GLUCOSE BEDSIDE (test code = GLUBED) 184 MG/DL 70-110 H Performed by cer tified kapok machine operator at [facility] BASIC METABOLIC [id number] 05:45:00* Test Item Value Reference Range Interpretation [...] code = CA) 7.5 mg/dL 8.0-10.5 L [id number] 05:45:00* Test Item Value Reference Range Interpretation Comme nts PHOSPHOROUS (test code = PHOS) 3.5 MG/DL 2.5-4.9 N [id number] 05:45:00* Test Item Value Reference Range Interpretation Comme nts MAGNESIUM (test code = MAG) 1.80 mg/dL 1.6-2.6 N CBC W/AUTO [id number] 05:25:00* Test Item Value Reference Range Interpretation [...] 0.00 x10 3/uL 0.0-0.1 N TROP-I HIGH [id number] 02:42:00* Test Item Value Reference Range Interpretation [...] URL. These results were obtained using [employer] IM TnIHreagent. Results from different methodologies should not becompared to one another as quantitative results and URLs mayvary by method. ADD-ON [id number] 02:42:00* Test Item Value Reference Range Interpretation Comme nts MAGNESIUM (test code = MAG) 2.00 mg/dL 1.6-2.6 N ADD-ON MAGCOMPREHENSIVE METABOLIC [id number] 22:12:00* Test Item Value Reference Range Interpretation [...] code = ALKP) 67 IUnit/L 20-125 N [id number] 22:12:00* Test Item Value Reference Range Interpretation Comme nts PHOSPHOROUS (test code = PHOS) 3.6 MG/DL 2.5-4.9 N [id number] 22:12:00* Test Item Value Reference Range Interpretation Comme nts MAGNESIUM (test code = MAG) 1.97 mg/dL 1.6-2.6 N CALCIUM [id number] 22:12:00* Test Item Value Reference Range Interpretation Comme nts CALCIUM IONIZED (test code = MONICA) 1.14 MMOL/L 1.09-1.30 N CBC W/AUTO [id number] 21:46:00* Test Item Value Reference Range Interpretation [...] 3/uL 0.0-0.1 N DRUGS OF ABUSE SCREEN [id number] 18:59:00* Test Item Value Reference Range Interpretation [...] non-medical purposes. UA RFLX MICR CULT IF [id number] 18:28:00* Test Item Value Reference Range Interpretation [...] culture: Suprapubic PainSpecimen Description: CLEAN CATCHTROP-I HIGH [id number] 17:54:00* Test Item Value Reference Range Interpretation [...] the URL. These results were obtained using [employer] TnIHreagent. Results from different methodologies should not becompared to one another as quantitative results and URLs mayvary by method. B-TYPE NATRIURETIC [id number] 13:24:00* Test Item Value Reference Range Interpretation Comme nts B-TYPE NATRIURETIC PEPTIDE ( test code = BNP) 66.0 PG/ML 0-100 N BASIC METABOLIC [id number] 13:18:00* Test Item Value Reference Range Interpretation [...] CA) 9.2 mg/dL 8.0-10.5 N HEPATIC FUNCTION [id number] 13:18:00* Test Item Value Reference Range Interpretation [...] code = ALKP) 79 IUnit/L 20-125 N [id number] 13:18:00* Test Item Value Reference Range Interpretation Comme nts LIPASE (test code = LIP) 37 U/L 13-57 N [id number] 13:18:00* Test Item Value Reference Range Interpretation Comme nts MAGNESIUM (test code = MAG) 2.04 mg/dL 1.6-2.6 N TSH REFLEX TO [id number] 13:18:00* Test Item Value Reference Range Interpretation Comme nts TSH REFLEX TO FT4 (test code = TSHREFLEX) 3.92 IU/mL 0.42-5.47 N [id number] 13:18:00* Test Item Value Reference Range Interpretation Comme nts CKMB (test code = CKMBT) 0.1 ng/mL 0-5.0 N CUT OFF:>5 ng/mL is suggested as being consistent with AMI. TROP-I HIGH [id number] 13:18:00* Test Item Value Reference Range Interpretation [...] the URL. These results were obtained using [employer] IM TnIHreagent. Results from different methodologies should not becompared to one another as quantitative results and URLs mayvary by method. CBC W/AUTO [id number] 13:00:00* Test Item Value Reference Range Interpretation [...] 3/uL 0.0-0.1 N - XR CHEST 1 [id number] 13:00:00 [facility] : 1970 Sex: M FAX: Margarito Ricks MD [place]: St: [facility] FAX: Jesusita Renner MD [phone] Name: CHARAN RESTREPO [facility] Boaz ER : 1970 Age/S: 53/M [address] [place] [address] Unit #: [id number] Loc: [place] [address] Phys: Margarito Ricks MD Acct: [id number] Dis Date: Status: REG ER PHONE #: [phone] Exam Date: 12/27/2023 1246 FAX #: [phone] Reason: Chest Pain EXAMS: CPT CODE: [id number] XR CHEST 1 V 89822 EXAM: CHEST ONE VIEW INDICATION: Chest Pain [...] 1 Signed Report- CTA HEART W CN ART/[id number] [facility] : 1970 Sex: M Name: CHARAN RESTREPO [facility] Xiang Marti : 1970 Age/S: 53 / M [address] [place] [address] Blvd Unit #: [id number] Loc: TOMASZ [place] [address] Phys: Papo Mayfield MD Acct: [id number] Dis Date: 12/03/2023 Status: DIS IN PHONE #: [phone] Exam Date: 11/30/2023 1526 FAX #: [phone] Reason: edy for Exam: CAD, possible thrombus EXAMS: CPT CODE: [id number] CTA HEART W CN ART/GRAFTS 46467 Radiation Dose CTDIVOL = 62.42 (mGy): DLP [...] 1 Signed Report (CONTINUED) Name: CHARAN RESTREPO [facility] Marti : 1970 Age/S: 53 / M [address] [place] [address] Blvd Unit #: [id number] Loc: [place] [address] Phys: Papo Mayfield MD Acct: [id number] Dis Date: 12/03/2023 Status: DIS IN PHONE #: [phone] Exam Date: 11/30/2023 1526 FAX #: [phone] Reason: edy for Exam: CAD, possible thrombus EXAMS: CPT CODE: [id number] CTA HEART W CN ART/GRAFTS 72597 (Continued) proximal segment resulting in minimal stenosis. [...] 2 Signed Report (CONTINUED) Name: CHARAN RESTREPO [facility] : 1970 Age/S: 53 / M [address] [place] [address] Blvd Unit #: [id number] Loc: Fernando IZ36483 Phys: Papo Mayfield MD Acct: [id number] Dis Date: 12/03/2023 Status: DIS IN PHONE #: [phone] Exam Date: 11/30/2023 1526 FAX #: [phone] Reason: edy for Exam: CAD, possible thrombus EXAMS: CPT CODE: [id number] CTA HEART W CN ART/GRAFTS 77511 (Continued) CC: Papo Mayfield MD;Jesusita Osuna MD Technologist:Dejuan Sanchez Jr, RT(R)(CT) CTDI: DLP: Trnscb Date/Time: 12/04/2023 (454) t.SDR.CM29 Orig Print D/T: S: 12/04/2023 (0455) PAGE 3 Signed ReportGLUCOSE [id number] 11:58:00 * Test Item Value Reference Range Interpretation Comme nts GLUCOSE BEDSIDE (test code = GLUBED) 207 MG/DL 70-110 H Performed by cer tified kapok machine operator at [facility] GLUCOSE [id number] 08:12:00* Test Item Value Reference Range Interpretation Comme nts GLUCOSE BEDSIDE (test code = GLUBED) 228 MG/DL 70-110 H Performed by [facility] [employer] kapok machine operator at [facility] CBC W/AUTO [id number] 06:16:00* Test Item Value Reference Range Interpretation [...] N COMMENTS: Daily while on HeparinBASIC METABOLIC [id number] 05:45:00* Test Item Value Reference Range Interpretation [...] code = CA) 9.1 mg/dL 8.0-10.5 N [id number] 05:45:00* Test Item Value Reference Range Interpretation Comme nts PHOSPHOROUS (test code = PHOS) 4.0 MG/DL 2.5-4.9 N [id number] 05:45:00* Test Item Value Reference Range Interpretation Comme nts MAGNESIUM (test code = MAG) 1.87 mg/dL 1.6-2.6 N CALCIUM [id number] 05:45:00* Test Item Value Reference Range Interpretation Comme nts CALCIUM IONIZED (test code = MONICA) 1.13 MMOL/L 1.09-1.30 N GLUCOSE [id number] 20:56:00* Test Item Value Reference Range Interpretation Comme nts GLUCOSE BEDSIDE (test code = GLUBED) 305 MG/DL 70-110 H Performed by cer tified kapok machine operator at [facility] GLUCOSE [id number] 16:35:00* Test Item Value Reference Range Interpretation Comme nts GLUCOSE BEDSIDE (test code = GLUBED) 228 MG/DL 70-110 H Performed by cer tified kapok machine operator at [facility] GLUCOSE [id number] 11:56:00* Test Item Value Reference Range Interpretation Comme nts GLUCOSE BEDSIDE (test code = GLUBED) 205 MG/DL 70-110 H Performed by cer tified kapok machine operator at [facility] GLUCOSE [id number] 07:36:00* Test Item Value Reference Range Interpretation Comme nts GLUCOSE BEDSIDE (test code = GLUBED) 233 MG/DL 70-110 H Performed by cer tified kapok machine operator at [facility] BASIC METABOLIC [id number] 03:40:00* Test Item Value Reference Range Interpretation [...] code = CA) 9.3 mg/dL 8.0-10.5 N [id number] 03:40:00* Test Item Value Reference Range Interpretation Comme nts PHOSPHOROUS (test code = PHOS) 3.7 MG/DL 2.5-4.9 N [id number] 03:40:00* Test Item Value Reference Range Interpretation Comme nts MAGNESIUM (test code = MAG) 1.95 mg/dL 1.6-2.6 N TROP-I HIGH [id number] 03:40:00* Test Item Value Reference Range Interpretation [...] URL. These results were obtained using [employer] IM TnIHreagent. Results from different methodologies should not becompared to one another as quantitative results and URLs mayvary by method. CALCIUM [id number] 03:40:00* Test Item Value Reference Range Interpretation Comme nts CALCIUM IONIZED (test code = MONICA) 1.19 MMOL/L 1.09-1.30 N CBC W/AUTO [id number] 03:07:00* Test Item Value Reference Range Interpretation [...] 0.0-0.1 N COMMENTS: Daily while on HeparinGLUCOSE [id number] 21:11:00* Test Item Value Reference Range Interpretation Comme nts GLUCOSE BEDSIDE (test code = GLUBED) 247 MG/DL 70-110 H Performed by cer tified kapok machine operator at [facility] GLUCOSE [id number] 16:48:00* Test Item Value Reference Range Interpretation Comme nts GLUCOSE BEDSIDE (test code = GLUBED) 239 MG/DL 70-110 H Performed by [facility] tified kapok machine operator at [facility] GLUCOSE [id number] 10:48:00* Test Item Value Reference Range Interpretation Comme nts GLUCOSE BEDSIDE (test code = GLUBED) 196 MG/DL 70-110 H Performed by [facility] tified kapok machine operator at [facility] GLUCOSE [id number] 07:49:00* Test Item Value Reference Range Interpretation Comme nts GLUCOSE BEDSIDE (test code = GLUBED) 247 MG/DL 70-110 H Performed by [facility] tified kapok machine operator at [facility] BASIC METABOLIC [id number] 05:07:00* Test Item Value Reference Range Interpretation [...] code = CA) 9.0 mg/dL 8.0-10.5 N [id number] 05:07:00* Test Item Value Reference Range Interpretation Comme nts PHOSPHOROUS (test code = PHOS) 3.7 MG/DL 2.5-4.9 N [id number] 05:07:00* Test Item Value Reference Range Interpretation Comme nts MAGNESIUM (test code = MAG) 2.06 mg/dL 1.6-2.6 N CALCIUM [id number] 05:07:00* Test Item Value Reference Range Interpretation Comme nts CALCIUM IONIZED (test code = MONICA) 1.14 MMOL/L 1.09-1.30 N THROMBOPLASTIN TIME [id number] 04:55:00* Test Item Value Reference Range Interpretation Comme nts THROMBOPLASTIN TIME PARTIAL (test code = PTT) 27.8 Seconds 25.0-39.5 Therapeutic Rang e: 50.4 - 88.3 Seconds Effective 02/04/2019 CBC W/AUTO [id number] 04:48:00* Test Item Value Reference Range Interpretation [...] NO COMMENTS: Daily while on HeparinTHROMBOPLASTIN TIME [id number] 22:40:00* Test Item Value Reference Range Interpretation Comme [facility] THROMBOPLASTIN TIME PARTIAL (test code = PTT) 58.8 Seconds 25.0-39.5 H Therapeutic Rang e: 50.4 - 88.3 Seconds Effective 02/04/2019 GLUCOSE [id number] 22:19:00* Test Item Value Reference Range Interpretation Comme [facility] GLUCOSE BEDSIDE (test code = GLUBED) 340 MG/DL 70-110 H Performed by cer tified kapok machine operator at [facility] - XR CHEST 1 [id number] 13:44:00 [facility]ame: CHARAN RESTREPO : 1970 Sex: M FAX: Viki Cartwright [place]: St: ADM FAX: Papo Stiles MD [phone] FAX: Jesusita Renner MD [phone] Name: CHARAN RESTREPO [facility] Boaz : 1970 Age/S: 53/M [address] [place] [address] Unit #: [id number] Loc: G.[address] [place] [address] Phys: Viki Cartwright APRNNP Acct: [id number] Dis Date: Status: ADM IN PHONE #: [phone] Exam Date: 11/30/2023 1248 FAX #: [phone] Reason: S/p intubati on EXAMS: CPT CODE: [id number] XR CHEST 1 V 48744 Dictation location: C4. CHEST, FRONTAL VIEW HISTORY: [...] Technologist: Jane Reyna RT(R) Trnscrd Date/Time/By: 11/30/2023 (3134) : By: [email or web address] Orig Print D/T: S: 11/30/2023 (4797) PAGE 1 Signed LwgevfYRF-[id number] 11:20:00* Test Item Value Reference Range Interpretation Comme nts ACT-ISTAT (test code = ACTI) 131 SEC 74-137 N Performed by cer tified kapok machine operator at [facility] POC ARTERIAL BLOOD [id number] 11:15:00* Test Item Value Reference Range Interpretation Comme nts POC ARTERIAL BLOOD GAS PH (t est code = POCPHA) 7.270 7.35-7.45 LL POC ARTERIAL BLOOD GAS PCO2 (test code = MXCVJM3Z) 48.2 mmHg 35.0-45 H POC TCO2 ARTERIAL (test code = POCTCO2) 23.6 POC ARTERIAL BLOOD GAS PO2 ( test code = OWZNP0G) 349.7 mmHg 80-100.0 HH POC HCO3 ARTERIAL (test code = GZUHUH0G) 22.1 MMOL/L 22.0-26.0 N POC BASE EXCESS (test code = POCBEA) -5.1 MMOL/L -4.0-4.0 L POC O2 SATURATION (test code = POCO2S) 99.9 % 90-100 N BASIC METABOLIC [id number] 11:15:00* Test Item Value Reference Range Interpretation [...] = POCGLU) 214 MG/DL 70-110 H HEMOGLOBIN [id number] 11:15:00* Test Item Value Reference Range Interpretation Comme [facility] HEMOGLOBIN ABG (test code = HGB/ABG) 15.2 G/DL 12.5-16.9 N [id number] 11:15:00* Test Item Value Reference Range Interpretation Comme [facility] HEMATOCRIT (test code = HCT/ABG) 45 % 37.5-50.7 N POC LACTIC [id number] 11:15:00* Test Item Value Reference Range Interpretation Comme [facility] POC LACTIC ACID (test code = POCLAC) 0.5 mmol/l 0.9-1.7 L GLUCOSE [id number] 08:27:00* Test Item Value Reference Range Interpretation Comme [facility] GLUCOSE BEDSIDE (test code = GLUBED) 134 MG/DL 70-110 H Performed by cer tified kapok machine operator at [facility] PROTHROMBIN [id number] 06:53:00* Test Item Value Reference Range Interpretation Comme [facility] PROTHROMBIN TIME PATIENT (test code = [...] Infarction (to prevent recurrent infarct). THROMBOPLASTIN TIME [id number] 06:53:00* Test Item Value Reference Range Interpretation Comme [facility] THROMBOPLASTIN TIME PARTIAL (test code = PTT) 57.9 Seconds 25.0-39.5 H Therapeutic Rang e: 50.4 - 88.3 Seconds Effective 02/04/2019 BASIC METABOLIC [id number] 04:46:00* Test Item Value Reference Range Interpretation [...] code = CA) 9.1 mg/dL 8.0-10.5 N [id number] 04:46:00* Test Item Value Reference Range Interpretation Comme nts PHOSPHOROUS (test code = PHOS) 3.6 MG/DL 2.5-4.9 N [id number] 04:46:00* Test Item Value Reference Range Interpretation Comme nts MAGNESIUM (test code = MAG) 2.06 mg/dL 1.6-2.6 N CALCIUM [id number] 04:46:00* Test Item Value Reference Range Interpretation Comme nts CALCIUM IONIZED (test code = MONICA) 1.14 MMOL/L 1.09-1.30 N CBC W/AUTO [id number] 04:25:00* Test Item Value Reference Range Interpretation [...] N COMMENTS: Daily while on HeparinTHROMBOPLASTIN TIME [id number] 00:44:00* Test Item Value Reference Range Interpretation Comme nts THROMBOPLASTIN TIME PARTIAL (test code = PTT) 78.6 Seconds 25.0-39.5 H Therapeutic Rang e: 50.4 - 88.3 Seconds Effective 02/04/2019 GLUCOSE [id number] 20:57:00* Test Item Value Reference Range Interpretation Comme nts GLUCOSE BEDSIDE (test code = GLUBED) 267 MG/DL 70-110 H Performed by cer yasir kapok machine operator at [facility] COMPREHENSIVE METABOLIC [id number] 18:46:00* Test Item Value Reference Range Interpretation [...] = ALKP) 52 IUnit/L 20-125 N PROTHROMBIN [id number] 18:36:00* Test Item Value Reference Range Interpretation [...] Infarction (to prevent recurrent infarct). THROMBOPLASTIN TIME [id number] 18:36:00* Test Item Value Reference Range Interpretation Comme nts THROMBOPLASTIN TIME PARTIAL (test code = PTT) 79.3 Seconds 25.0-39.5 H Therapeutic Rang e: 50.4 - 88.3 Seconds Effective 02/04/2019 CBC W/AUTO [id number] 18:25:00* Test Item Value Reference Range Interpretation [...] NRBC#) 0.00 x10 3/uL 0.0-0.1 N GLUCOSE [id number] 17:07:00* Test Item Value Reference Range Interpretation Comme nts GLUCOSE BEDSIDE (test code = GLUBED) 192 MG/DL 70-110 H Performed by melvin caputo at [facility] - XR CHEST 1 [id number] 11:18:00 [facility] 1970 Sex: M FAX: Papo Stiles MD [phone] [place]: St: ADM FAX: Jesusita Renner MD [phone] ------- Name: CHARAN RESTREPO [facility] : 1970 Age/S: 53/M [address] [place] [address] Unit #: [id number] Loc: G.[address] [place], [place] [id number] Phys: Papo Mayfield MD Acct: [id number] Dis Date: Status: ADM IN PHONE #: [phone] Exam Date: 11/29/2023 0837 FAX #: [phone] Reason: Cardiac Surgery Pre Op EXAMS: CPT CODE: [id number] XR CHEST 1 V 66258 Location: H77 EXAM: - XR CHEST 1 [...] By: [email or web address] Orig Print D/T: S: 11/29/2023 (2633) PAGE 1 Signed Report GLUCOSE [id number] 08:28:00* Test Item Value Reference Range Interpretation Comme nts GLUCOSE BEDSIDE (test code = GLUBED) 169 MG/DL 70-110 H Performed by melvin caputo at [facility] B-TYPE NATRIURETIC [id number] 06:04:00* Test Item Value Reference Range Interpretation Comme nts B-TYPE NATRIURETIC PEPTIDE ( test code = BNP) 76.0 PG/ML 0-100 N COMPREHENSIVE METABOLIC [id number] 05:51:00* Test Item Value Reference Range Interpretation [...] = LDL) 61.0 mg/dL 0-100 N <100 HMUUREB96 0-129 NEAR OPTIMAL/ABOVE [id number] HIGH>FZ=685 VERY HIGH*Guidelines provided by the National Cholesterol EducationProgram Adult Treatment Panel III [id number]%[id number] 05:44:00* Test Item Value Reference Range Interpretation Comme nts HGBA1C% (test code = HGBA1C%) 8.8 %A1C 4.8-6.0 H PROTHROMBIN [id number] 05:43:00* Test Item Value Reference Range Interpretation [...] Infarction (to prevent recurrent infarct). THROMBOPLASTIN TIME [id number] 05:43:00* Test Item Value Reference Range Interpretation Comme nts THROMBOPLASTIN TIME PARTIAL (test code = PTT) 75.5 Seconds 25.0-39.5 H Therapeutic Rang e: 50.4 - 88.3 Seconds Effective 02/04/2019 PLT RESPONSE TO [id number] 05:34:00* Test Item Value Reference Range Interpretation [...] be rejected by our instrumentation. CBC W/AUTO [id number] 05:28:00* Test Item Value Reference Range Interpretation [...] 3/uL 0.0-0.1 N COVID 19 Asymptomatic IH [id number] 02:20:00* Test Item Value Reference Range Interpretation [...] perform moderate, high or waivedcomplexity tests. GLUCOSE [id number] 22:14:00* Test Item Value Reference Range Interpretation Comme nts GLUCOSE BEDSIDE (test code = GLUBED) 200 MG/DL 70-110 H Performed by [facility] [employer] [place] machine operator at [facility] THROMBOPLASTIN TIME [id number] 18:32:00* Test Item Value Reference Range Interpretation Comme nts THROMBOPLASTIN TIME PARTIAL (test code = PTT) 58.4 Seconds 25.0-39.5 H Therapeutic Rang e: 50.4 - 88.3 Seconds Effective 02/04/2019 GLUCOSE [id number] 17:20:00* Test Item Value Reference Range Interpretation Comme nts GLUCOSE BEDSIDE (test code = GLUBED) 145 MG/DL 70-110 H Performed by [facility] [employer] kap[employer] machine operator at [facility] THROMBOPLASTIN TIME [id number] 12:39:00* Test Item Value Reference Range Interpretation Comme nts THROMBOPLASTIN TIME PARTIAL (test code = PTT) 67.5 Seconds 25.0-39.5 H Therapeutic Rang e: 50.4 - 88.3 Seconds Effective 02/04/2019 GLUCOSE [id number] 11:29:00* Test Item Value Reference Range Interpretation Comme nts GLUCOSE BEDSIDE (test code = GLUBED) 225 MG/DL 70-110 H Performed by [facility] [employer] kap[employer] 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 [employer]: CHARAN RESTREPO : 1970 Sex: M Name: CHARAN RESTREPO [facility] Xiang Marti : 1970 Age/S: 53 / M [address] [place] [address] Blvd Unit #: [id number] Loc: [place] [address] Phys: Dia Baird Acct: [id number] Dis Date: Status: ADMIN PHONE #: [phone] Exam Date: 11/27/2023 1616 FAX #: [phone] Reason: Cardiac Surgery PreOp EXAMS: CPT CODE: [id number] US EXTREM NON VASC COMP 80175 EXAM: - US EXTREM NON VASC COMP [...] Baird; Jesusita Osuna MD Technologist: Kristel Farris Trndeb Date/Time: 11/28/2023 (09) ArleneJJYOrig Print D/T: S: 11/28/2023 (0916) Probe: PAGE 1 Signed ReportGLUCOSE [id number] 07:47:00 * Test Item Value Reference Range Interpretation Comme nts GLUCOSE BEDSIDE (test code = GLUBED) 169 MG/DL 70-110 H Performed by cer yasir kapok machine operator at [facility] PLT RESPONSE TO [id number] 06:12:00* Test Item Value Reference Range Interpretation [...] HGBA1C%) 8.7 %A1C 4.8-6.0 H COMPREHENSIVE METABOLIC [id number] 05:53:00* Test Item Value Reference Range Interpretation [...] ALKP) 66 IUnit/L 20-125 N THROMBOPLASTIN TIME [id number] 05:48:00* Test Item Value Reference Range Interpretation Comme nts THROMBOPLASTIN TIME PARTIAL (test code = PTT) 52.1 Seconds 25.0-39.5 H Therapeutic Rang e: 50.4 - 88.3 Seconds Effective 02/04/2019 COMMENTS: DRAW PTT 6 HOURS AFTER INITIATION OF HEPARINCBC W/AUTO [id number] 05:38:00* Test Item Value Reference Range Interpretation [...] N COMMENTS: Daily while on HeparinTHROMBOPLASTIN TIME [id number] 00:16:00* Test Item Value Reference Range Interpretation Comme [facility] THROMBOPLASTIN TIME PARTIAL (test code = PTT) 47.4 Seconds 25.0-39.5 H Therapeutic Rang e: 50.4 - 88.3 Seconds Effective 02/04/2019 GLUCOSE [id number] 21:43:00* Test Item Value Reference Range Interpretation Comme [facility] GLUCOSE BEDSIDE (test code = GLUBED) 276 MG/DL 70-110 H Performed by cer tified kapok machine operator at [facility] UA RFLX MICR CULT IF [id number] 18:58:00* Test Item Value Reference Range Interpretation [...] culture: Dysuria/FrequencySpecimen Description: CLEAN CATCH THROMBOPLASTIN TIME [id number] 18:47:00* Test Item Value Reference Range Interpretation Comme nts THROMBOPLASTIN TIME PARTIAL (test code = PTT) 42.1 Seconds 25.0-39.5 H Therapeutic Rang e: 50.4 - 88.3 Seconds Effective 02/04/2019 GLUCOSE [id number] 18:26:00* Test Item Value Reference Range Interpretation Comme nts GLUCOSE BEDSIDE (test code = GLUBED) 212 MG/DL 70-110 H Performed by melvin cooley kapok machine operator at [facility] - DUP EXTRACRANIAL [id number] 16:29:00 [facility] 1970 Sex: M Name: CHARAN RESTREPO [facility] Boaz : 1970 Age/S: 53 / M [address] [place] [address] Blvd Unit #: [id number] Loc: [place] [address] Phys: Dia Baird Acct: [id number] Dis Date: Status: ADMIN PHONE #: [phone] Exam Date: 11/27/2023 1615 FAX #: [phone] Reason: Cardiac Surgery PreOp EXAMS: CPT CODE: [id number] DUP EXTRACRANIAL BRENDA 99895 EXAM: Carotid ultrasound Dictation location: E5 INDICATION: [...] (162) Chayo.BC0 Orig Print D/T: S: 11/27/2023 (2909) Probe: PAGE 1 Signed Report- XR CHEST 1 [id number] 16:16:00 [facility] : 1970 Sex: M FAX: Papo Stiles MD [phone] [place]: St: [facility] FAX: Dia Bess FAX: Jesusita Renner MD [phone] Name: CHARAN RESTREPO [facility] : 1970 Age/S: 53/M [address] [place] [address] Unit #: [id number] Loc: [address] [place], [place] [id number] Phys: Dia Baird Physic Acct: [id number] Dis Date: Status: ADM IN PHONE #: [phone] Exam Date: 11/27/2023 [facility] FAX #: [phone] Reason: Cardiac Surgery Pre Op EXAMS: CPT CODE: [id number] XR CHEST 1 V 33582 Dictation location: C4. CHEST, FRONTAL VIEW HISTORY: [...] Technologist: Anastasia Poe RT(R) Trnscrd Date/Time/By: 11/27/2023 (5466) : By: DarinelR.SP17 Orig Print D/T: S: 11/27/2023 (7126) PAGE1 Signed ReportTROP-I HIGH SENSITIVITY 2023-11-27 11:52:00* [...] URL. These results were obtained using [employer] IM TnIHreagent. Results from different methodologies should not becompared to one another as quantitative results and URLs mayvary by method. GLUCOSE [id number] 11:49:00* Test Item Value Reference Range Interpretation Comme nts GLUCOSE BEDSIDE (test code = GLUBED) 248 MG/DL 70-110 H Performed by melvin caputo at [facility] PROTHROMBIN [id number] 11:38:00* Test Item Value Reference Range Interpretation [...] be rejected by our instrumentation. CBC W/AUTO [id number] 11:24:00* Test Item Value Reference Range Interpretation [...] HOURS- CT CHEST W/O CONTRAST 2023-11-27 10:24:00 [facility] [employer]: CHARAN RESTREPO : 1970 Sex: M Name: CHARAN RESTREPO [facility] Xiang Marti : 1970 Age/S: 53 / M [address] [place] [address] Blvd Unit #: [id number] Loc: [place] [address] Phys: Dia Baird Acct: [id number] Dis Date: Status: ADM IN PHONE #: [phone] Exam Date: 11/27/2023 0943 FAX #: [phone] Reason: Cardiac Surgery Pre Op EXAMS: CPT CODE: [id number] CT CHEST W/O CONTRAST 16342 EXAM: Chest CT without contrast Dictation location: [...] 1 Signed Report (CONTINUED) Name: CHARAN RESTREPO [facility] : 1970 Age/S: 53 / M [address] [place] [address] BlvdUnit #: [id number] Loc: [place] [address] Phys: Dia Baird Physic Acct: [id number] Dis Date:Status: ADM IN PHONE #: [phone] Exam Date: 11/27/2023942 FAX #: [phone] Reason: Cardiac Surgery Pre Op EXAMS: CPT CODE: [id number] CT CHEST W/O CONTRAST 51230 (Continued) ventriculomegaly,consistent with CHF, and questionable mural [...] (1024) t.SDR.BC0 Orig Print D/T: S: 11/27/2023 (5709) PAGE 2 Signed ReportGLUCOSE [id number] 07:44:00* Test Item Value Reference Range Interpretation Comme nts GLUCOSE BEDSIDE (test code = GLUBED) 139 MG/DL 70-110 H Performed by cer yasir kapok machine operator at [facility] B-TYPE NATRIURETIC [id number] 07:32:00* Test Item Value Reference Range Interpretation Comme nts B-TYPE NATRIURETIC PEPTIDE ( test code = BNP) 93.0 PG/ML 0-100 N HGBA1C%2023-11-27 07:10:00* Test Item Value Reference Range Interpretation Comme nts HGBA1C% (test code = HGBA1C%) 8.8 %A1C 4.8-6.0 H COMPREHENSIVE METABOLIC [id number] 07:08:00* Test Item Value Reference Range Interpretation [...] = LDL) 79.0 mg/dL 0-100 N <100 EZFZSCM83 0-129 NEAR OPTIMAL/ABOVE [id number] SLBHREYBSX926-682 HIGH>FI=304 VERY HIGH*Guidelines provided by the National Cholesterol EducationProgram Adult Treatment Panel III CBC W/AUTO [id number] 06:59:00* Test Item Value Reference Range Interpretation [...] NRBC#) 0.00 x10 3/uL 0.0-0.1 N PROTHROMBIN [id number] 06:53:00* Test Item Value Reference Range Interpretation [...] Infarction (to prevent recurrent infarct). THROMBOPLASTIN TIME [id number] 06:53:00* Test Item Value Reference Range Interpretation Comme [facility] THROMBOPLASTIN TIME PARTIAL (test code = PTT) 32.7 Seconds 25.0-39.5 N Therapeutic Rang e: 50.4 - 88.3 Seconds Effective 02/04/2019 GLUCOSE BEDSIDE [id number] 10:20:00* Test Item Value Reference Range Interpretation Comme [facility] GLUCOSE BEDSIDE TESTING (shanna t code = GLUBED) 215 MG/DL 60-99 H BASIC METABOLIC [id number] 07:35:00* Test Item Value Reference Range Interpretation [...] code = CA) 8.6 MG/DL 8.4-10.2 N [id number] 07:35:00* Test Item Value Reference Range Interpretation Comme nts MAGNESIUM (test code = MAG) 2.0 MG/DL 1.6-2.3 N GLUCOSE BEDSIDE [id number] 06:26:00* Test Item Value Reference Range Interpretation Comme nts GLUCOSE BEDSIDE TESTING (shanna t code = GLUBED) 187 MG/DL 60-99 H GLUCOSE BEDSIDE [id number] 04:13:00* Test Item Value Reference Range Interpretation Comme nts GLUCOSE BEDSIDE TESTING (shanna t code = GLUBED) 149 MG/DL 60-99 H GLUCOSE BEDSIDE [id number] 23:41:00* Test Item Value Reference Range Interpretation Comme nts GLUCOSE BEDSIDE TESTING (shanna t code = GLUBED) 162 MG/DL 60-99 H GLUCOSE BEDSIDE [id number] 21:11:00* Test Item Value Reference Range Interpretation Comme nts GLUCOSE BEDSIDE TESTING (shanna t code = GLUBED) 203 MG/DL 60-99 H GLUCOSE BEDSIDE [id number] 19:59:00* Test Item Value Reference Range Interpretation Comme nts GLUCOSE BEDSIDE TESTING (shanna t code = GLUBED) 219 MG/DL 60-99 H GLUCOSE BEDSIDE [id number] 19:59:00* Test Item Value Reference Range Interpretation Comme nts GLUCOSE BEDSIDE TESTING (shanna t code = GLUBED) 253 MG/DL 60-99 H GLUCOSE BEDSIDE [id number] 19:58:00* Test Item Value Reference Range Interpretation Comme nts GLUCOSE BEDSIDE TESTING (shanna t code = GLUBED) 247 MG/DL 60-99 H HEPATIC FUNCTION [id number] 11:51:00* Test Item Value Reference Range Interpretation Comme nts TOTAL PROTEIN (test code = PROT) 6.5 G/DL 6.2-7.6 N Ortho Clinical D iagnostic has made us aware of newinformation regarding the potential interference ofEltrombopag (a bone marrow stimulant used to treatthrombocytonmenia and aplastic anemia) with specific assayson the Lost My Names 5600 of which Total Protein is one [...] : add on to blood in labURINALYSIS [id number] 04:46:00* Test Item Value Reference Range Interpretation [...] NEGATIVE SOURCE OF URINE: CLEAN CATCHGLYCOSYLATED HEMOGLOBIN [id number] 04:06:00* Test Item Value Reference Range Interpretation [...] MBG) 220 MG/DL 70-110 H BASIC METABOLIC [id number] 03:58:00* Test Item Value Reference Range Interpretation [...] code = CA) 8.5 MG/DL 8.4-10.2 N [id number] 03:58:00* Test Item Value Reference Range Interpretation Comme nts MAGNESIUM (test code = MAG) 2.3 MG/DL 1.6-2.3 N CBC W/AUTO [id number] 03:45:00* Test Item Value Reference Range Interpretation [...] code = NRBC#) 0.00 K/mm3 0.0-0.1 N [id number] 01:08:00* Test Item Value Reference Range Interpretation Comme nts TROPONIN-I (test code = TROPI) 3.570 NG/ML 0.012-0.033 HH CALLED TO YESI Cervantes & READBACK ON 03/19/23 AT 0107 BY Barrett Wang [id number] 22:08:00* Test Item Value Reference Range Interpretation Comme nts TROPONIN-I (test code = TROPI) 3.700 NG/ML 0.012-0.033 HH CALLED TO VLADIMIR ROSA & READBACK ON 03/18/23 AT 2202 BY Michael Umana GLUCOSE BEDSIDE [id number] 20:24:00* Test Item Value Reference Range Interpretation Comme nts GLUCOSE BEDSIDE TESTING (shanna t code = GLUBED) 211 MG/DL 60-99 H LIPOPROTEIN LDL [id number] 19:36:00* Test Item Value Reference Range Interpretation Comme [facility] LIPOPROTEIN LDL DIRECT (test code = LDLDIR) 112 mg/dL 100-129 N ========= R eference Interval: mg/dL mmol/L -----Optimal <100 <2.6Near/above optimal 100-129 2.6-3.3Borderline High 130-159 3.4-4.1High 160-189 4.1-4.9Very High >=190 >=4.9========= This LDL result is a direct measurement.======== = [id number] 19:36:00* Test Item Value Reference Range Interpretation Comme nts TROPONIN-I (test code = TROPI) 3.780 NG/ML 0.012-0.033 HH CALLED TO CHANTAL Burger& READBACK ON 03/18/23 AT 1849 BY Michael Umana - XR CHEST [id number] 19:06:00 [facility] 1970 Sex: M Patient Name: CHARAN RESTREPO Unit No: [id number] EXAMS: CPT CODE: [id number] XR CHEST 1V 73927 LOCATION: Q15 HISTORY: 52-year-old male, history of [...] Chayo.RLA2 Orig Print D/T: S: 03/18/2023 (1908) [facility] NAME: CHARAN RESTREPO [address] [address] PHYS: [address] [place] [address] : 1970 AGE: 52 SEX: M LOC: Z.I13 A PHONE #: [phone] EXAM DATE: 03/18/2023 STATUS: ADM IN FAX #: [phone] RADIOLOGY NO: PAGE 1 Signed ReportNT PRO-BRAIN [...] other causes* of NT-proBNP elevation. GLYCOSYLATED HEMOGLOBIN [id number] 18:36:00* Test Item Value Reference Range Interpretation [...] CK) 274 UNITS/L 55-170 H COMPREHENSIVE METABOLIC [id number] 18:30:00* Test Item Value Reference Range Interpretation [...] 6.1 G/DL 6.2-7.6 L Ortho Clinical D iaYasuu has made us aware of newinformation regarding [...] code = ALKP) 59 UNITS/L 38-126 N [id number] 18:30:00* Test Item Value Reference Range Interpretation Comme nts PHOSPHOROUS (test code = PHOS) 3.8 MG/DL 2.5-4.5 N [id number] 18:30:00* Test Item Value Reference Range Interpretation Comme nts MAGNESIUM (test code = MAG) 2.3 MG/DL 1.6-2.3 N CBC W/O [id number] 18:09:00* Test Item Value Reference Range Interpretation [...] code = NRBC#) 0.00 K/mm3 0.0-0.1 N [id number] 16:25:00* Test Item Value Reference Range Interpretation Comme nts ACT-ISTAT (test code = ACTI) 275 SEC 74-137 H DBP-[id number] 15:43:00* Test Item Value Reference Range Interpretation Comme nts ACT-ISTAT (test code = ACTI) 281 SEC 74-137 H Notes Date/Time Note Provider Source 2024-01-08 21:14:00 [id number] AwEEMvcex4BPCxDvyKE/OIOp0BFFO N/UD8WdPQemXCCcQrWN8FwiPp0q5620-10-83U92:14:00 [facility] ([facility])Hospitalist Discharge SummaryREPORT#:[id number] REPORT STATUS: SignedREPORT INITIALIZATION DATE:01/08/24 TIME: 2113 PATIENT: CHARAN RESTREPO UNIT #: [id number]#: [id number] [address] [birth year] AGE: 53 SEX: M ATTEND: Young,Jemal Jesenia MDADM AUTHOR: Stella Lucia MDREPT SERVICE DT/TIME: 01/08/242113* ALL edits or amendments must be made on the electronic/computer document * General InformationDischarge date: 01/08/24Discharge diagnosis:lv thrombus Hospital course: 53 yrs old male with Pmhx CAD, DM II,Life vest, left atrial clot( on AC Eliquis)and tobacco abuse who presented to outside ED at [facility] in [place] for c/o chest pain and shortness of [...] patient Nicotine patch but he declined.Pain control: [place] PRNDVT ppx: JAYLEN Corrales in [facility]-X-Ray:No acute cardiopulmonary process.Plan [...] likely for cabg- workup in progress- per discharge door operator patient has been cleared to transfer out [...] chronic pain, wants to go home with [place] and morphine. Consult his painmanagement physician, Dr. Gill to adjust pain meds to ease disposition to home. 01/07/24bridging Coumadin with heparin -inr 1.2trending labs-inr in am Ischemic CM: continue metoprolol succinate, valsartan, Farxiga-cardiology following BP acceptable BS remains high, ssi adjustedPt has chronic pain, wants to go home with [place] and morphine. Consult his painmanagement physician, Dr. [...] clinicDiscussed with pharmacy Consultants: cardiology, cardiovascular surgery, critical/network associate, hospitalist Free Text DxA P NotesFree text [...] patient Nicotine patch but he declined.Pain control: [place] PRNDVT ppx: JAYLEN Corrales in [facility]-X-Ray:No acute cardiopulmonary process.Plan [...] likely for cabg- workup in progress- per discharge door operator patient has been cleared to transfer out [...] chronic pain, wants to go home with [place] and morphine. Consult his painmanagement physician, Dr. Gill to adjust pain meds to ease disposition to home. 01/07/24bridging Coumadin with heparin -inr 1.2trending labs-inr in am Ischemic CM: continue metoprolol succinate, valsartan, Farxiga-cardiology following BP acceptable BS remains high, ssi adjustedPt has chronic pain, wants to go home with [place] and morphine. Consult his painmanagement physician, Dr. [...] softGenitourinary: no bladder distentionExtremities: no edemaMusculoskeletal: normal inspectionNeuro/WASH TUB MACHINE OPERATOR: alert, normal speechSkin: intact, no rashPsychiatry: normal affect, normal mood Free Text Obj NotesFree Text Obj Notes:General appearance: alert, awakeHead/Eyes: normal conjunctiva/scleraCardiovascular: normal heart sounds, regular rate rhythmRespiratory: clear to auscultation, no distressAbdomen: normal bowel sounds, softExtremities: no edemaNeuro/WASH TUB MACHINE OPERATOR: alert, normal speechSkin: intact, no rashPsychiatry: [...] patient Nicotine patch but he declined.Pain control: [place] PRNDVT ppx: AC EliquisLabs in [facility]-X-Ray:No acute cardiopulmonary process.Plan [...] likely for cabg- workup in progress- per discharge door operator patient has been cleared to transfer out of ccu to cv1 while awaiting workup 12/31/23- heparin gtt- cta pending- ssi/fingersticks- smoking cessation- [facility] is on case and patient likely for cabg- workup in progress Discharge Instructions PCPDischarge to: Home/Self CareAdditional Discharge Routines: PCP Follow-Up, Nut Culler Follow-UpDiet: Cardiac Follow-up AppointmentsPCP follow-up: PCP: Jesusita [...] instructions:CALL OFFICE FOR APPOINTMENT at 2120 RPT #:[id number] OF REPORTDSDischarge lqrnorf5411-63-95I31:14:00G.ROEN99013426-0439DQUs ailable for patient wcuqSMUXMAFPFMDLQX5538-18-83A31:21:23 [facility] 2024-01-08 21:07:00 [id number] I1Rshdm7G9BTT5PiYUBzkuVjLTGwK GNQKtwGSfYPh0DIpDwdTtnkNnE+7009-54-48Q45:07:00 [facility] Progress NoteREPORT#:[id number] REPORT STATUS: SignedREPORT INITIALIZATION DATE:01/08/24 TIME: 2106 PATIENT: CHARAN RESTREPO UNIT #: [id number]#: [id number] [address] [birth year] AGE: 53 SEX: M ATTEND: [...] softGenitourinary: no bladder distentionExtremities: no edemaMusculoskeletal: normal inspectionNeuro/WASH TUB MACHINE OPERATOR: alert, normal speechSkin: intact, no rashPsychiatry: [...] (Ulises) (25.0 - 39.5 Seconds) 67.3 H PT [...] % (Auto) (14.0 - 32.0 %) 23.3 [place] % (Auto) (4.8 - 9.0 %) 7.7 Eos % (Auto) (0.3 - 3.7 %) 5.7 H Baso % (Auto) (0.0 - 2.0 %) 1.4 Neut # (Auto) (2.0 - 7.6 x10 3/uL) 5.16 Lymph # (Auto) (1.0 - 3.8 x10 3/uL) 1.99 [place] # (Auto) (0.1 - 0.8 x10 3/uL) [...] 0.00 Diagnosis, Assessment PlanConsultants: cardiology, cardiovascular surgery, critical/network associate, hospitalist Free Text DxA P NotesFree text DxA P notes:Non-sustained V-tachy, on Amiodarone dripChest pain 2/2 aboveLife vest stopped firingTobacco abuseDiabetic Mellitus II with hyperglycemiaHx Left atrial clot (on Eliquis)Hx Diabetes Mellitus IIHx CAD [facility]Ad[facility] CardiologyConsu Critical careContinous Telemetry monitoring - to [...] patient Nicotine patch but he declined.Pain control: [place] PRNDVT ppx: JAYLEN Corrales in [facility]-X-Ray:No acute cardiopulmonary process.Plan [...] likely for cabg- workup in progress- per discharge door operator patient has been cleared to transfer out [...] chronic pain, wants to go home with [place] and morphine. Consult his painmanagement physician, Dr. Gill to adjust pain meds to ease disposition to home. 01/07/24bridging Coumadin with heparin -inr 1.2trending labs-inr in am Ischemic CM: continue metoprolol succinate, valsartan, Farxiga-cardiology following BP acceptable BS remains high, ssi adjustedPt has chronic pain, wants to go home with [place] and morphine. Consult his painmanagement physician, Dr. [...] Coumadin clinicDiscussed with pharmacy at 2111 RPT #:[id number] OF REPORTPRProgress haqs9809-01-82I48:07:00G.YGNB03268232-4640TGZgvzs able for patient nfqmMOYBEQJWCORKJF2127-82-86Q69:11:[address] [facility] 2024-01-08 10:31:00 [id number] V9SLxujJ1jkqJbqHyu2z+j1t9jxcV 8po/QOE6/DCu3unUavLoZ+DIx4P2971-63-25K89:31:00 [facility] ([facility])EP Progress NoteREPORT#:[id number] REPORT STATUS: SignedREPORT INITIALIZATION DATE:01/08/24 TIME: 1031 PATIENT: CHARAN RESTREPO UNIT #: [id number]#: [id number] ROOM/BED: 3396-1DOB: [birth year] AGE: 53 SEX: M [...] and rhythmRespiratory: no distressAbdomen: soft, non-tenderExtremities: moves allNeuro/WASH TUB MACHINE OPERATOR: alert, oriented X 3, normal gait, [...] INR (0.8 - 1.2) 1.9 H PTT ([place]) (25.0 - 39.5 Seconds) 67.3 H 66.0 [...] % (Auto) (14.0 - 32.0 %) 23.3 [place] % (Auto) (4.8 - 9.0 %) 7.7 Eos % (Auto) (0.3 - 3.7 %) 5.7 H Baso % (Auto) (0.0 - 2.0 %) 1.4 Neut # (Auto) (2.0 - 7.6 x10 3/uL) 5.16 Lymph # (Auto) (1.0 - 3.8 x10 3/uL) 1.99 [place] # (Auto) (0.1 - 0.8 x10 3/uL) [...] MG/DL) 215 H 136 H Coagulation PTT ([place]) (25.0 - 39.5 Seconds) 56.8 H Laboratory Tests 01/07 0330 Chemistry Magnesium (1.6 - 2.6 mg/dL) 1.92 Diagnosis, Assessment PlanFree Text A P:The patient is a 53 y.o male with medical history of CAD (PCI to prox and mid LAD in 02/2023), HTN, DM and HLD. He recently had LHC at [facility] due to frequent chest pain and was referred to come here for CABG. The patient was recently admitted to [facility] on 11/27/23 for CABG work-up and surgery was scheduled for 11/30/23 but cancelled due to LV thrombus. He was discharged on LifeVest, anticoagulant (eliquis), and planning for CABG in 2-3 months. ECHO on 11/28/23, LVEF was 30-34%. The patient reports went to [facility] in [place] because had frequent chest pain and LifeVest alarming occurred few times, deniesLifeVest shocks. He was found to have episodes of VT, started on Amiodarone bolus/drip, and transfered to [facility] on 12/27/23 for further evaluation. 1. CMP-ECHO (12/28/23): LVEF 25-29%-LIFEVEST in possession-recommend GDMT/LIFEVEST x3 mos.-ok to d/c from EP standpoint 2. NSVT-currently SR 60s-AA therapy, amiodarone 400mg bid + metop succ 25mg daily-no recurrence this admission 3. CAD-s/p PCI, 02/2023-s/p LHC; severe-s/p viability study; nonviable myocardium-per CTS, not a candidate for CABG 4. LV thrombus-s/p CTA heart-AC warfarin-INR 1.9 Consultants: cardiology, cardiovascular surgery, critical/network associate, hospitalist at 1033 at 1118 RPT #:[id number] OF REPORTPRProgress rqzd3226-61-91J13:31:00G.VZPA49328187-0731NMBsoix able for patient llryZLPUBUODRJVHDJ9442-17-60V23:33:[address] [facility] 2024-01-08 09:07:00 [id number] pMzKQpWY8Bwb/tPiCbcyQeBEcNp0p 3aemL6/niVebTBchNFO/r87RQkX0805-93-30Z10:07:00 [facility] ([facility])Cardiology Progress NoteREPORT#:[id number] REPORT STATUS: SignedREPORT INITIALIZATION DATE:01/08/24 TIME: 906 PATIENT: CHARAN RESTREPO UNIT #: [id number]#: [id number] [address] [birth year] AGE: 53 SEX: M ATTEND: Jemal Young MDADM AUTHOR: Fiona Foster AGACNPREPT SERVICE DT/TIME: [...] assessment: normal capillary refill, no edemaMusculoskeletal: normal inspectionNeuro/WASH TUB MACHINE OPERATOR: alert, oriented X 3, normal speechSkin: [...] % (Auto) (14.0 - 32.0 %) 23.3 [place] % (Auto) (4.8 - 9.0 %) 7.7 Eos % (Auto) (0.3 - 3.7 %) 5.7 H Baso % (Auto) (0.0 - 2.0 %) 1.4 Neut # (Auto) (2.0 - 7.6 x10 3/uL) 5.16 Lymph # (Auto) (1.0 - 3.8 x10 3/uL) 1.99 [place] # (Auto) (0.1 - 0.8 x10 3/uL) [...] making by Dr. Rutherford. at 1218 RPT #:[id number] OF REPORTPRProgress utrz7110-19-92V49:07:00G.VCMG50033329-2954VAQtvvp able for patient sgcpIYICNUHYIYFYMJ0739-78-30U10:18:[address] [facility] 2024-01-08 08:37:00 [id number] t677FT+2EfGAybj5IBVnCt/euMCNn oRrQ9YP9RGXw+QdadrMPUJR+5Vv4971-66-29A36:37:00 [facility] Prog.Note-AnticoagREPORT#:[id number] REPORT STATUS: SignedREPORT INITIALIZATION DATE:01/08/24 TIME: 0837 PATIENT: CHARAN RESTREPO UNIT #: [id number]#: [id number] [address] [birth year] AGE: 53 SEX: M ATTEND: Jemal Young [facility] AUTHOR: Bhaskar Justice RPhREPT SERVICE DT/TIME: 01/08/24 [...] years, and chronic pain who presented to [facility] with complaints of life vest alarming [...] will continue to monitor. at 0850 RPT #:[id number] OF REPORTPRProgress nmsg7314-53-71R86:37:00G.JJVS24714361-7682SLYjlzq able for patient vuecQISFPXUTHWIZSA3826-11-03H60:50:[address] [facility] 2024-01-08 05:49:00 [id number]/X+J tE1QBA66Ih2oCnIimD5U9EhQxRaEe 6gt+uvW7/uRmANYzEfyaYirdh/j5761-40-02D13:49:00 [facility] CenterCardi[facility] Surgery ProgREPORT#:[id number] REPORT STATUS: SignedREPORT INITIALIZATION DATE:01/08/24 TIME: 548 PATIENT: CHARAN RESTREPO UNIT #: [id number]#: [id number] ROOM/BED: 3396-1DOB: [birth year] AGE: 53 SEX: M [...] full range of motion, painless range of motionNeuro/WASH TUB MACHINE OPERATOR: alert, CNII-XII intactSkin: dry, intactPsychiatry: normal affect, normal mood Diagnosis, Assessment PlanHospital course to date:This is a 53-year-old gentleman with past medical history of coronary artery disease status post previous PCI in the past, hypertension, diabetes, hyperlipidemia, smoker 1 ppd/40 years, and chronic pain who presented to [facility] with complaints of life vest alarming and V-tach. Patient denies any shocks. He was started on an amiodarone drip and transferred to [facility] ED for further evaluation. He previously underwent left heart catheterization with [employer] about a monthago and was referred for bypass surgery. He was taken to the operating room where during the intraoperative ANAND there is some suspicion for thrombus, after talking with the patient's accounting professor we decided to cancel surgery due to [...] seen and examined Dr. Mayfield. Okay to AK patient home when okay with parcel carrier: cardiology, cardiovascular surgery, critical/network associate, hospitalist at 0905 at 0948 RPT #:[id number] OF REPORTPRProgress mgvl3506-80-53G42:49:00G.LXQI09438149-0836CJSgmho able for patient cxtlTFMNESPHVHTQLD6459-77-19F60:06:[address] [facility] 2024-01-07 16:51:00 [id number] oQ3UgYR6IisuKHJQxS6uQjRFSWMfe 0oL7vod2RpetFyoMFH9BwOaXJJZ5569-97-86L30:51:00 [facility] CenterCardiology Progress NoteREPORT#:[id number] REPORT STATUS: SignedREPORT INITIALIZATION DATE:01/07/24 TIME: 1650 PATIENT: CHARAN RESTREPO UNIT #: [id number]#: [id number] ROOM/BED: 3345-1DOB: [birth year] AGE: 53 SEX: M ATTEND: Jac Marsh MDADM AUTHOR: Fiona Foster AGACNPREPT SERVICE DT/TIME: [...] assessment: normal capillary refill, no edemaMusculoskeletal: normal inspectionNeuro/WASH TUB MACHINE OPERATOR: alert, oriented X 3, normal speechSkin: [...] 2031Coagulation INR (0.8 - 1.2) 1.2 PTT (Ulises) (25.0 - 39.5 Seconds) 56.8 H 78.6 [...] % (Auto) (14.0 - 32.0 %) 24.1 [place] % (Auto) (4.8 - 9.0 %) 7.4 Eos % (Auto) (0.3 - 3.7 %) 5.9 H Baso % (Auto) (0.0 - 2.0 %) 1.2 Neut # (Auto) (2.0 - 7.6 x10 3/uL) 4.65 Lymph # (Auto) (1.0 - 3.8 x10 3/uL) 1.87 [place] # (Auto) (0.1 - 0.8 x10 3/uL) [...] making by Dr. Rutherford. at 1712 RPT #:[id number] OF REPORTPRProgress epgx5323-01-25Q56:51:00G.DQNO67043146-9046UYTuckm able for patient nkbjBJQEOXBBTDUOXB2714-05-30W98:13:[address] [facility] 2024-01-07 15:21:00 [id number] HfLJ4zHwDqCUDCTA0LT/EsVvBopAL 9mJTSFFJO/ghE6gwBcqZe+DtOuU6172-60-10O49:21:00 [facility] CenterEP Progress NoteREPORT#:[id number] REPORT STATUS: SignedREPORT INITIALIZATION DATE:01/07/24 TIME: 152 PATIENT: CHARAN RESTREPO UNIT #: [id number]#: [id number] [address] [birth year] AGE: 53 SEX: M ATTEND: [...] and rhythmRespiratory: no distressAbdomen: soft, non-tenderExtremities: moves allNeuro/WASH TUB MACHINE OPERATOR: alert, oriented X 3, normal gait, normal speechSkin: dryFindings/Data:Laboratory Tests: 0301/06 1214 1213 0725 0400Chemistry POC Glucose (70 - 110 MG/DL) 136 H 261 HCoagulation INR (0.8 - 1.2) 1.2 PTT (Ulises) (25.0 - 39.5 Seconds) 56.8 H PT [...] % (Auto) (14.0 - 32.0 %) 24.1 [place] % (Auto) (4.8 - 9.0 %) 7.4 Eos % (Auto) (0.3 - 3.7 %) 5.9 H Baso % (Auto) (0.0 - 2.0 %) 1.2 Neut # (Auto) (2.0 - 7.6 x10 3/uL) 4.65 Lymph # (Auto) (1.0 - 3.8 x10 3/uL) 1.87 [place] # (Auto) (0.1 - 0.8 x10 3/uL) [...] and HLD. He recently had LHC at [facility] due to frequent chest pain and was referred to come here for CABG. The patient was recently admitted to [facility] on 11/27/23 for CABG work-up and surgery was scheduled for 11/30/23 but cancelled due to LV thrombus. He was discharged on LifeVest, anticoagulant (eliquis), and planning for CABG in 2-3 months. ECHO on 11/28/23, LVEF was 30-34%. The patient reports went to [facility] in [place] because had frequent chest pain and LifeVest alarming occurred few times, deniesLifeVest shocks. He was found to have episodes of VT, started on Amiodarone bolus/drip, and transfered to [facility] on 12/27/23 for further evaluation. 1. CMP-ECHO [...] IV gtt-INR 1.2 Consultants: cardiology, cardiovascular surgery, critical/network associate, hospitalist at 1030 at 1119 RPT #:[id number] OF REPORTPRProgress vlrs7938-84-02I91:21:00G.JLFW31326623-6714GHKjnpx able for patient qgyjNHWKDMWAYRABMC8192-25-71Z58:31:[address] [facility] 2024-01-07 13:07:00 [id number] mqtQ482XiEukduXWlbHXI6xanrFY7 2/ag6FT0bSc1PDQaHXeJRg/oZra4354-57-49V45:07:00 [facility] CenterCardioth[facility] Surgery ProgREPORT#:[id number] REPORT STATUS: SignedREPORT INITIALIZATION DATE:01/07/24 TIME: 130 PATIENT: CHARAN RESTREPO UNIT #: [id number]#: [id number] [facility]ED[facility]DOB: [birth year] AGE: 53 SEX: M ATTEND: Jac [...] full range of motion, painless range of motionNeuro/WASH TUB MACHINE OPERATOR: alert, CNII-XII intactSkin: dry, intactPsychiatry: normal affect, normal mood Diagnosis, Assessment PlanHospital course to date:This is a 53-year-old gentleman with past medical history of coronary artery disease status post previous PCI in the past, hypertension, diabetes, hyperlipidemia, smoker 1 ppd/40 years, and chronic pain who presented to [facility] with complaints of life vest alarming and V-tach. Patient denies any shocks. He was started on an amiodarone drip and transferred to [facility] ED for further evaluation. He previously underwent left heart catheterization with [employer] about a monthago and was referred for bypass surgery. He was taken to the operating room where during the intraoperative ANAND there is some suspicion for thrombus, after talking with the patient's accounting professor we decided to cancel surgery due to [...] Outpatient cardiac MRI can be arranged by parcel carrier: cardiology, cardiovascular surgery, critical/network associate, hospitalist at 1309 at 1959 RPT #:[id number] OF REPORTPRProgress blwf8773-97-22X87:07:00G.GJTQ85496721-9492IEJhhyl able for patient tuxcZOOWYRJDHWDXHW8780-83-58A38:10:[address] [facility] 2024-01-07 10:15:00 [id number] +bOnqOXxUb28sf2sO2B+r3uExQzyD +P6oCVgob6MYci2AZmqiSVrMaaC0787-91-79Y77:15:00 [facility]Ph[facility] Prog.Note-AnticoagREPORT#:[id number] REPORT STATUS: SignedREPORT INITIALIZATION DATE:01/07/24 TIME: 1015 PATIENT: CHARAN RESTREPO UNIT #: [id number]#: [id number] [address] [birth year] AGE: 53 SEX: M ATTEND: [...] years, and chronic pain who presented to [facility] with complaints of life vest alarming [...] * Pharmacy will continue to monitor. at [facility] RPT #:[id number] OF REPORTPRProgress bump3962-20-36H56:15:00G.IGMP72620271-3488TRNlstz able for patient apltROPGGCKQQWZMHR2452-96-54Q65:24:[address] [facility] 2024-01-07 09:10:00 [id number] GO38JLMeDeOxFFfE2xB9JkKtZgDsq K5SA06NJibA6ZbJGd9LpDtqGHG02417-44-87W97:10:00 [facility] CenterHospitalist Progress NoteREPORT#:[id number] REPORT STATUS: SignedREPORT INITIALIZATION DATE:01/07/24 TIME: 909 PATIENT: CHARAN RESTREPO UNIT #: [id number]#: [id number] [address] [birth year] AGE: 53 SEX: M ATTEND: Jac Marsh AUTHOR: Hortencia StevensonPREPT SERVICE DT/TIME: 01/07/24 0910* ALL edits or amendments must be made on the electronic/computer document * SubjectiveChief complaint:Pt wants morphine and [place] to go home with. His Pain Management [...] softGenitourinary: no bladder distentionExtremities: no edemaMusculoskeletal: normal inspectionNeuro/WASH TUB MACHINE OPERATOR: alert, normal speechSkin: intact, no rashPsychiatry: [...] 1.2 PTT (Ulises) (25.0 - 39.5 Seconds) 78.6 [...] % (Auto) (14.0 - 32.0 %) 24.1 [place] % (Auto) (4.8 - 9.0 %) 7.4 Eos % (Auto) (0.3 - 3.7 %) 5.9 H Baso % (Auto) (0.0 - 2.0 %) 1.2 Neut # (Auto) (2.0 - 7.6 x10 3/uL) 4.65 Lymph # (Auto) (1.0 - 3.8 x10 3/uL) 1.87 [place] # (Auto) (0.1 - 0.8 x10 3/uL) [...] stable Diagnosis, Assessment PlanConsultants: cardiology, cardiovascular surgery, critical/network associate, hospitalist Free Text DxA P NotesFree text DxA P notes:Non-sustained V-tachy, on Amiodarone dripChest pain 2/2 aboveLife vest stopped firingTobacco abuseDiabetic Mellitus II with hyperglycemiaHx Left atrial clot (on Eliquis)Hx Diabetes Mellitus IIHx CAD [facility]Ad[facility]iologyConsult Critical careContinous Telemetry monitoring - to [...] patient Nicotine patch but he declined.Pain control: [place] PRNDVT ppx: JAYLEN Corrales in [facility]-X-Ray:No acute cardiopulmonary process.Plan [...] likely for cabg- workup in progress- per discharge door operator patient has been cleared to transfer out [...] chronic pain, wants to go home with [place] and morphine. Consult his painmanagement physician, Dr. Gill to adjust pain meds to ease disposition to home. 01/07/24bridging Coumadin with heparin -inr 1.2trending labs-inr in am Ischemic CM: continue metoprolol succinate, valsartan, Farxiga-cardiology following BP acceptable BS remains high, ssi adjustedPt has chronic pain, wants to go home with [place] and morphine. Consult his painmanagement physician, Dr. Gill to adjust pain meds to ease disposition to home. Dispo: therapeutic inr 2-3once cardiac thrombus eliminated. Patient will need follow up for CABG as outpt with Dr. Mayfield at 1034 RPT #:[id number] OF REPORTPRProgress fpaf2037-14-98R10:10:00G.MFKB13139639-4788JQIqaoq able for patient nkzsMENONEHTRDILKW8312-04-83Y37:35:[address] [facility] 2024-01-06 16:00:00 [id number] pnszXShxx4wPVAs4CtysY+qJgBc6D XudnvCnRQGtU6rx4xjcBIUqK+9O7929-33-27X33:00:00 [facility] Hospitalist Progress NoteREPORT#:[id number] REPORT STATUS: SignedREPORT INITIALIZATION DATE:01/06/24 TIME: 1600 PATIENT: CHARAN RESTREPO UNIT #: [id number]#: [id number] [address]OB: [birth year] AGE: 53 SEX: M ATTEND: Marycruz Villalba MDA AUTHOR: Jane Barrios DOREPT SERVICE DT/TIME: 01/06/24 1600* ALL edits or amendments must be made on the electronic/computer document * SubjectiveChief complaint:Pt wants morphine and [place] to go home with. His Pain Management [...] softGenitourinary: no bladder distentionExtremities: no edemaMusculoskeletal: normal inspectionNeuro/WASH TUB MACHINE OPERATOR: alert, normal speechSkin: intact, no rashPsychiatry: [...] % (Auto) (14.0 - 32.0 %) 25.4 [place] % (Auto) (4.8 - 9.0 %) 8.9 Eos % (Auto) (0.3 - 3.7 %) 6.7 H Baso % (Auto) (0.0 - 2.0 %) 1.3 Neut # (Auto) (2.0 - 7.6 x10 3/uL) 4.46 Lymph # (Auto) (1.0 - 3.8 x10 3/uL) 2.01 [place] # (Auto) (0.1 - 0.8 x10 3/uL) [...] 0.00 Diagnosis, Assessment PlanConsultants: cardiology, cardiovascular surgery, critical/network associate, hospitalist Free Text DxA P NotesFree text DxA P notes:Non-sustained V-tachy, on Amiodarone dripChest pain 2/2 aboveLife vest stopped firingTobacco abuseDiabetic Mellitus II with hyperglycemiaHx Left atrial clot (on Eliquis)Hx Diabetes Mellitus IIHx CAD PlanAdmit [facility] CardiologyConsult Critical careContinous Telemetry monitoring - to [...] patient Nicotine patch but he declined.Pain control: [place] PRNDVT ppx: JAYLEN Corrales in [facility]-X-Ray:No acute cardiopulmonary process.Plan [...] likely for cabg- workup in progress- per discharge door operator patient has been cleared to transfer out [...] chronic pain, wants to go home with [place] and morphine. Consult his painmanagement physician, Dr. Gill to adjust pain meds to ease disposition to home. at 1604 RPT #:[id number] OF REPORTPRProgress kpxa5348-45-66T55:00:00G.HVKD05599945-2382GZHwsmb able for patient mcvfPQIMPROVPZDNDN7104-21-06Z68:04:24 [facility] 2024-01-06 14:49:00 [id number] lMD6bJLIbaMMfBCC4VGQsRKbigp5j NjAaa2DUfDklerz+2oR2M9DHvdE8399-59-08B31:49:00 [facility]Ph[facility] Prog.Note-AnticoagREPORT#:[id number] REPORT STATUS: SignedREPORT INITIALIZATION DATE:01/06/24 TIME: 1448 PATIENT: CHARAN RESTREPO UNIT #: [id number]#: [id number] [address] [birth year] AGE: 53 SEX: M ATTEND: Marycruz Villalba [facility] AUTHOR: Coco Rabago [facility] ResidentREPT SERVICE DT/TIME: 01/06/24 1449* [...] years, and chronic pain who presented to [facility] with complaints of life vest alarming [...] INR ordered until 01/13 at 1501 RPT #:[id number] OF REPORTPRProgress hgny1016-07-34C96:49:00G.NNBH07985118-2206HOSdsfj able for patient rhsbLCBGTGBLOTCXVC1377-98-16V11:01:36 [facility] 2024-01-06 13:32:00 [id number]+Q 5e+EH54rJsBtBc/k6Kovx2FoCA1pN JoqMGpvBbIMagx1w3yf6OlF4Ndm6691-31-10S83:32:00 [facility] CenterCardiothor[facility] Surgery ProgREPORT#:[id number] REPORT STATUS: SignedREPORT INITIALIZATION DATE:01/06/24 TIME: 1331 PATIENT: CHARAN RESTREPO UNIT #: [id number]#: [id number] [address] [birth year] AGE: 53 SEX: M ATTEND: [...] full range of motion, painless range of motionNeuro/WASH TUB MACHINE OPERATOR: alert, CNII-XII intactSkin: dry, intactPsychiatry: normal affect, normal mood Diagnosis, Assessment PlanHospital course to date:This is a 53-year-old gentleman with past medical history of coronary artery disease status post previous PCI in the past, hypertension, diabetes, hyperlipidemia, smoker 1 ppd/40 years, and chronic pain who presented to [facility] with complaints of life vest alarming and V-tach. Patient denies any shocks. He was started on an amiodarone drip and transferred to [facility] ED for further evaluation. He previously underwent left heart catheterization with [employer] about a monthago and was referred for bypass surgery. He was taken to the operating room where during the intraoperative ANAND there is some suspicion for thrombus, after talking with the patient's accounting professor we decided to cancel surgery due to [...] outpatient cardiac MRI Consultants: cardiology, cardiovascular surgery, critical/network associate, hospitalist at 1333 at 2002 RPT #:[id number] OF REPORTPRProgress ambf8920-29-00I59:32:00G.FHTC05436781-2537UTJcxpy able for patient ojskOCZWDQHKZMMZDC8620-81-70S96:33:44 [facility] 2024-01-06 10:37:00 [id number] h1597oH6WbtFb2arKGSFxMmqREKQg vPNWhy9c/XdH1zNIIi494Bw+C6m1481-60-38F98:37:00 [facility])Cardiology Progress NoteREPORT#:[id number] REPORT STATUS: SignedREPORT INITIALIZATION DATE:01/06/24 TIME: 1037 PATIENT: CHARAN RESTREPO UNIT #: [id number]#: [id number] [address] [birth year] AGE: 53 SEX: M ATTEND: [...] assessment: normal capillary refill, no edemaMusculoskeletal: normal inspectionNeuro/WASH TUB MACHINE OPERATOR: alert, oriented X 3, normal speechSkin: [...] INR (0.8 - 1.2) 1.0 1.0 PTT ([place]) (25.0 - 39.5 Seconds) 87.3 H PT [...] % (Auto) (14.0 - 32.0 %) 25.4 [place] % (Auto) (4.8 - 9.0 %) 8.9 Eos % (Auto) (0.3 - 3.7 %) 6.7 H Baso % (Auto) (0.0 - 2.0 %) 1.3 Neut # (Auto) (2.0 - 7.6 x10 3/uL) 4.46 Lymph # (Auto) (1.0 - 3.8 x10 3/uL) 2.01 [place] # (Auto) (0.1 - 0.8 x10 3/uL) [...] plan a s above at 1037 RPT #:[id number] OF REPORTPRProgress pjve4385-22-67H14:37:00G.MTTM35241608-6358TPTkktb able for patient gdgpSMFOUSOTXKGSCV2825-77-86O86:38:[address] [facility] 2024-01-05 15:41:00 [id number] GsuzeGoDhLc4DII1YJ1Ajs9dMelUi Tmg+BNL3hwhS6urZAi51wvc36qV4048-03-38J92:41:00 [facility])Pharmacy Prog.Note-AnticoagREPORT#:[id number] REPORT STATUS: SignedREPORT INITIALIZATION DATE:01/05/24 TIME: 154 PATIENT: CHARAN RESTREPO UNIT #: [id number]#: [id number] [address] [birth year] AGE: 53 SEX: M ATTEND: [...] years, and chronic pain who presented to [facility] with complaints of life vest alarming [...] INR ordered until 01/13 at 1549 RPT #:[id number] OF REPORTPRProgress iorj8126-48-54V96:41:00G.MPIU22638187-4798DAPwioc able for patient depdLMSTBUYYIXZZWG0730-40-85M22:50:[address] [facility] 2024-01-05 13:54:00 [id number] YH40C4X61epIqJ3k6p8Hvgi8l9yhg GBlVhLuhBBtCdJnC/OIaBSd7sJo0715-54-98X29:54:00 [facility] Hospitalist Progress NoteREPORT#:[id number] REPORT STATUS: SignedREPORT INITIALIZATION DATE:01/05/24 TIME: 135 PATIENT: CHARAN RESTREPO UNIT #: [id number]#: [id number] [facility]OM[facility]ED: [facility]-1DOB: [birth year] AGE: 53 SEX: M ATTEND: Marycruz [...] softGenitourinary: no bladder distentionExtremities: no edemaMusculoskeletal: normal inspectionNeuro/WASH TUB MACHINE OPERATOR: alert, normal speechSkin: intact, no rashPsychiatry: [...] % (Auto) (14.0 - 32.0 %) 25.1 [place] % (Auto) (4.8 - 9.0 %) 7.7 Eos % (Auto) (0.3 - 3.7 %) 5.8 H Baso % (Auto) (0.0 - 2.0 %) 1.3 Neut # (Auto) (2.0 - 7.6 x10 3/uL) 4.58 Lymph # (Auto) (1.0 - 3.8 x10 3/uL) 1.95 [place] # (Auto) (0.1 - 0.8 x10 3/uL) [...] 0.00 Diagnosis, Assessment PlanConsultants: cardiology, cardiovascular surgery, critical/network associate, hospitalist Free Text DxA P NotesFree text DxA P notes:Non-sustained V-tachy, on Amiodarone dripChest pain 2/2 aboveLife vest stopped firingTobacco abuseDiabetic Mellitus II with hyperglycemiaHx Left atrial clot (on Eliquis)Hx Diabetes Mellitus IIHx CAD PlanAd[facility] CardiologyConsult Critical careContinous Telemetry monitoring - [...] patient Nicotine patch but he declined.Pain control: [place] PRNDVT ppx: AC Antoni in [facility]-X-Ray:No acute cardiopulmonary process.Plan [...] likely for cabg- workup in progress- per discharge door operator patient has been cleared to transfer out [...] cleared by CV surgery at 1357 RPT #:[id number] OF REPORTPRProgress ocbb2596-11-20L09:54:00G.HUDD03995518-6981QOBlawa able for patient tfewWUSNHEYORMIYWV0807-15-49R05:57:[address] [facility] 2024-01-05 13:24:00 [id number]+ tDXeyHAJkfkljWTwFqp5fFu/riYV3 8mQhMyOEioxVp9HOfUjYZgzFmug9479-45-20K46:24:00 [facility] ([facility])Cardiothoracic Surgery ProgREPORT#:[id number] REPORT STATUS: SignedREPORT INITIALIZATION DATE:01/05/24 TIME: 1323 PATIENT: CHARAN RESTREPO UNIT #: [id number]#: [id number] [address] [birth year] AGE: 53 SEX: M ATTEND: [...] full range of motion, painless range of motionNeuro/WASH TUB MACHINE OPERATOR: alert, CNII-XII intactSkin: dry, intactPsychiatry: normal affect, normal mood Diagnosis, Assessment PlanHospital course to date:This is a 53-year-old gentleman with past medical history of coronary artery disease status post previous PCI in the past, hypertension, diabetes, hyperlipidemia, smoker 1 ppd/40 years, and chronic pain who presented to [facility] with complaints of life vest alarming and V-tach. Patient denies any shocks. He was started on an amiodarone drip and transferred to [facility] ED for further evaluation. He previously underwent left heart catheterization with [employer] about a monthago and was referred for bypass surgery. He was taken to the operating room where during the intraoperative ANAND there is some suspicion for thrombus, after talking with the patient's accounting professor we decided to cancel surgery due to [...] all questions answered. Consultants: cardiology, cardiovascular surgery, critical/network associate, hospitalist at 1329 at 0716 RPT #:[id number] OF REPORTPRProgress frxb7028-52-64U41:24:00G.OJXN88571392-2081HWNpksu able for patient tiujJKNJISHSXRNIDB6227-83-88J59:30:[address] [facility] 2024-01-05 11:06:00 [id number] Sff3wYVmLopFkoHykDQLIbhWvwdfc Lj2C3DOVp66NUb3gUaHDdKoEqIe5702-63-42P90:06:00 [facility] ([facility])Cardiology Progress NoteREPORT#:[id number] REPORT STATUS: SignedREPORT INITIALIZATION DATE:01/05/24 TIME: 1106 PATIENT: CHARAN RESTREPO UNIT #: [id number]#: [id number] [address]: [address]: [birth year] AGE: 53 SEX: M ATTEND: [...] assessment: normal capillary refill, no edemaMusculoskeletal: normal inspectionNeuro/WASH TUB MACHINE OPERATOR: alert, oriented X 3, normal speechSkin: [...] % (Auto) (14.0 - 32.0 %) 25.1 [place] % (Auto) (4.8 - 9.0 %) 7.7 Eos % (Auto) (0.3 - 3.7 %) 5.8 H Baso % (Auto) (0.0 - 2.0 %) 1.3 Neut # (Auto) (2.0 - 7.6 x10 3/uL) 4.58 Lymph # (Auto) (1.0 - 3.8 x10 3/uL) 1.95 [place] # (Auto) (0.1 - 0.8 x10 3/uL) [...] plan stable plan a s above at [facility] RPT #:[id number] OF REPORTPRProgress [id number]:06:00G.[id number] able for patient [id number]:37:[address] [facility] 2024-01-04 19:25:00 [id number] ELNPj+hzwivSVBT6q+X13KbrnDaxd ROBrB62GeBpsxeEhhfuJf9a0m1B1768-04-30U01:25:00 [facility] ProgREPORT#:[id number] REPORT STATUS: SignedREPORT INITIALIZATION DATE:01/04/24 TIME: 1924 PATIENT: CHARAN RESTREPO UNIT #: [id number]#: [id number] [address] [birth year] AGE: 53 SEX: M ATTEND: [...] full range of motion, painless range of motionNeuro/WASH TUB MACHINE OPERATOR: alert, CNII-XII intactSkin: dry, intactPsychiatry: normal [...] 01/03 01/03 01/03 01/02 1647 1142 0820 [id number] 2005Chemistry Sodium (134 - 147 mEq/L) 134 [...] 1.79 Laboratory Tests 01/03 446 Coagulation PTT ([place]) (25.0 - 39.5 Seconds) 66.1 H Laboratory [...] % (Auto) (14.0 - 32.0 %) 25.4 [place] % (Auto) (4.8 - 9.0 %) 8.0 Eos % (Auto) (0.3 - 3.7 %) 5.7 H Baso % (Auto) (0.0 - 2.0 %) 1.1 Neut # (Auto) (2.0 - 7.6 x10 3/uL) 4.86 Lymph # (Auto) (1.0 - 3.8 x10 3/uL) 2.10 [place] # (Auto) (0.1 - 0.8 x10 3/uL) [...] years, and chronic pain who presented to [facility] with complaints of life vest alarming and V-tach. Patient denies any shocks. He was started on an amiodarone drip and transferred to [facility] ED for further evaluation. He previously underwent left heart catheterization with [employer] about a monthago and was referred for bypass surgery. He was taken to the operating room where during the intraoperative ANAND there is some suspicion for thrombus, after talking with the patient's accounting professor we decided to cancel surgery due to [...] questions were answered Consultants: cardiology, cardiovascular surgery, critical/network associate, hospitalist at 0732 RPT #:[id number] OF REPORTPRProgress vusx5113-28-97Q21:25:00G.NUQZ42345370-7394ZFTvjtv able for patient sqjkDXKNXAKCUVHFRF1612-96-77I73:33:[address] [facility] 2024-01-04 15:25:00 [id number]+R5s9lHs mpqyJ/Z3xCP5/n1OhTbxLFybBC0oR J+JTmCso8Q02NMvLy9Cs0v5P6Jo1209-37-66L43:25:00 [facility] Progress NoteREPORT#:[id number] REPORT STATUS: SignedREPORT INITIALIZATION DATE:01/04/24 TIME: 1524 PATIENT: CHARAN RESTREPO UNIT #: [id number]#: [id number] [address] [birth year] AGE: 53 SEX: M ATTEND: Marycruz Villalba [facility] AUTHOR: Fiona Foster AGACNPREPT SERVICE DT/TIME: 01/04/241524* [...] assessment: normal capillary refill, no edemaMusculoskeletal: normal inspectionNeuro/WASH TUB MACHINE OPERATOR: alert, oriented X 3, normal speechSkin: dry, intact, normal colorPsychiatry: normal affect, normal judgment/insight, normal mood ResultsFindings/Data:Laboratory Tests 01/03 01/03 01/03 01/02 1142 0820 4079 2004 Chemistry Sodium (134 - 147 mEq/L) [...] % (Auto) (14.0 - 32.0 %) 25.4 [place] % (Auto) (4.8 - 9.0 %) 8.0 Eos % (Auto) (0.3 - 3.7 %) 5.7 H Baso % (Auto) (0.0 - 2.0 %) 1.1 Neut # (Auto) (2.0 - 7.6 x10 3/uL) 4.86 Lymph # (Auto) (1.0 - 3.8 x10 3/uL) 2.10 [place] # (Auto) (0.1 - 0.8 x10 3/uL) [...] Medical decision making by Dr. Iqbal. at [facility] RPT #:[id number] OF REPORTPRProgress vxdh5732-17-87F76:25:00G.OTMF51643021-8387MFYfxsi able for patient ptkyQHUVTKBGEGMHDM6906-02-28U43:52:[address] [facility] 2024-01-04 13:16:00 [id number] fL4pEdl4zjURD2OSRW4eG8KCsDIik 7vCibPyFuZ0963/OXN6TRQwp8fa0135-01-31P88:16:00 [facility] CenterHospitalist Progress NoteREPORT#:[id number] REPORT STATUS: SignedREPORT INITIALIZATION DATE:01/04/24 TIME: 1315 PATIENT: CHARAN RESTREPO UNIT #: [id number]#: [id number] [address] [birth year] AGE: 53 SEX: M ATTEND: [...] softGenitourinary: no bladder distentionExtremities: no edemaMusculoskeletal: normal inspectionNeuro/WASH TUB MACHINE OPERATOR: alert, normal speechSkin: intact, no rashPsychiatry: [...] - 2.6 mg/dL) 1.79 Laboratory Tests 01/03 2896 Coagulation PTT (Archuleta) (25.0 - 39.5 Seconds) 66.1 H Laboratory Tests 01/03 7538 Hematology WBC (4.5 - 11.0 x10 3/uL) [...] % (Auto) (14.0 - 32.0 %) 25.4 [place] % (Auto) (4.8 - 9.0 %) 8.0 Eos % (Auto) (0.3 - 3.7 %) 5.7 H Baso % (Auto) (0.0 - 2.0 %) 1.1 Neut # (Auto) (2.0 - 7.6 x10 3/uL) 4.86 Lymph # (Auto) (1.0 - 3.8 x10 3/uL) 2.10 [place] # (Auto) (0.1 - 0.8 x10 3/uL) [...] 0.00 Diagnosis, Assessment PlanConsultants: cardiology, cardiovascular surgery, critical/network associate, hospitalist Free Text DxA P NotesFree text DxA P notes:Non-sustained V-tachy, on Amiodarone dripChest pain 2/2 aboveLife vest stopped firingTobacco abuseDiabetic Mellitus II with hyperglycemiaHx Left atrial clot (on Eliquis)Hx Diabetes Mellitus IIHx CAD PlanAd[facility] CardiologyConsult Critical careContinous Telemetry monitoring - [...] patient Nicotine patch but he declined.Pain control: [place] PRNDVT ppx: AC Antoni in [facility]-X-Ray:No acute cardiopulmonary process.Plan [...] likely for cabg- workup in progress- per discharge door operator patient has been cleared to transfer out [...] for tighter BS control at 1319 RPT #:[id number] OF REPORTPRProgress rinx8385-04-07Y55:16:00G.SSHD07704148-3542OGWrqle able for patient qsxlBIBQNPPLYRRJCU1665-14-06W64:19:[address] [facility] 2024-01-03 15:17:00 [id number] 9VzScYECuC6z6cn/Bi8PFXJiLTYHx yty/7vi/jWixescb1RHgMvhRjW/9349-97-01W51:17:00 [facility] ([facility]ITALCard[facility] Progress NoteREPORT#:[id number] REPORT STATUS: SignedREPORT INITIALIZATION DATE:01/03/24 TIME: 1517 PATIENT: KAYECHARAN UNIT #: [id number]#: [id number] [facility]DOB: [birth year] AGE: 53 SEX: M ATTEND: Marycruz [...] assessment: normal capillary refill, no edemaMusculoskeletal: normal inspectionNeuro/WASH TUB MACHINE OPERATOR: alert, oriented X 3, normal speechSkin: [...] % (Auto) (14.0 - 32.0 %) 27.3 [place] % (Auto) (4.8 - 9.0 %) 8.5 Eos % (Auto) (0.3 - 3.7 %) 4.9 H Baso % (Auto) (0.0 - 2.0 %) 1.0 Neut # (Auto) (2.0 - 7.6 x10 3/uL) 4.70 Lymph # (Auto) (1.0 - 3.8 x10 3/uL) 2.23 [place] # (Auto) (0.1 - 0.8 x10 3/uL) [...] making by Dr. Iqbal. at 2138 RPT #:[id number] OF REPORTPRProgress ifmn0822-89-64I45:17:00G.BZBL85294570-1822JYEyglj able for patient ewkhHRENSAODQJPBJW2330-06-24D38:53:[address] [facility] 2024-01-03 15:07:00 [id number] wHKEgrPqMNze50JysMJPV7i2rQ++W rF7oSLCm9GHUxModqRBtfOwF7jW1212-91-83C84:07:00 [facility] CenterHospitalist Progress NoteREPORT#:[id number] REPORT STATUS: SignedREPORT INITIALIZATION DATE:01/03/24 TIME: 1507 PATIENT: CHARAN RESTREPO UNIT #: [id number]#: [id number] [address] [birth year] AGE: 53 SEX: M ATTEND: [...] softGenitourinary: no bladder distentionExtremities: no edemaMusculoskeletal: normal inspectionNeuro/WASH TUB MACHINE OPERATOR: alert, normal speechSkin: intact, no rashPsychiatry: [...] 1.76 Laboratory Tests 01/02 0504 Coagulation PTT (Archuleta) (25.0 - 39.5 Seconds) 64.8 H Laboratory [...] % (Auto) (14.0 - 32.0 %) 27.3 [place] % (Auto) (4.8 - 9.0 %) 8.5 Eos % (Auto) (0.3 - 3.7 %) 4.9 H Baso % (Auto) (0.0 - 2.0 %) 1.0 Neut # (Auto) (2.0 - 7.6 x10 3/uL) 4.70 Lymph # (Auto) (1.0 - 3.8 x10 3/uL) 2.23 [place] # (Auto) (0.1 - 0.8 x10 3/uL) [...] 0.00 Diagnosis, Assessment PlanConsultants: cardiology, cardiovascular surgery, critical/network associate, hospitalist Free Text DxA P NotesFree text [...] patient Nicotine patch but he declined.Pain control: [place] PRNDVT ppx: JAYLEN Corrales in [facility]-X-Ray:No acute cardiopulmonary process.Plan [...] likely for cabg- workup in progress- per discharge door operator patient has been cleared to transfer out [...] at target, labs reviewed at 1512 RPT #:[id number] OF REPORTPRProgress sdje3651-71-20W23:07:00G.GULO24772113-1131SFAuqzj able for patient jcugZZXETEGXSYNSYI3532-81-79S61:21:[address] [facility] 2024-01-03 10:12:00 [id number] QcofxaObu9ZnKBUvgQJrUftoJm/7r XZTYtOr2ab1uuiUBuaBAMXPalVa6931-47-43P55:12:00 [facility])Cardiothoracic Surgery ProgREPORT#:[id number] REPORT STATUS: SignedREPORT INITIALIZATION DATE:01/03/24 TIME: 1012 PATIENT: CHARAN RESTREPO UNIT #: [id number]#: [id number] [address] [birth year] AGE: 53 SEX: M ATTEND: [...] full range of motion, painless range of motionNeuro/WASH TUB MACHINE OPERATOR: alert, CNII-XII intactSkin: dry, intactPsychiatry: normal [...] 1.76 Laboratory Tests 01/02 0504 Coagulation PTT (Archuleta) (25.0 - 39.5 Seconds) 64.8 H Laboratory [...] % (Auto) (14.0 - 32.0 %) 27.3 [place] % (Auto) (4.8 - 9.0 %) 8.5 Eos % (Auto) (0.3 - 3.7 %) 4.9 H Baso % (Auto) (0.0 - 2.0 %) 1.0 Neut # (Auto) (2.0 - 7.6 x10 3/uL) 4.70 Lymph # (Auto) (1.0 - 3.8 x10 3/uL) 2.23 [place] # (Auto) (0.1 - 0.8 x10 3/uL) [...] years, and chronic pain who presented to [facility] with complaints of life vest alarming and V-tach. Patient denies any shocks. He was started on an amiodarone drip and transferred to [facility] ED for further evaluation. He previously underwent left heart catheterization with [employer] about a monthago and was referred for bypass surgery. He was taken to the operating room where during the intraoperative ANAND there is some suspicion for thrombus, after talking with the patient's accounting professor we decided to cancel surgery due to [...] recommendations to follow. Consultants: cardiology, cardiovascular surgery, critical/network associate, hospitalist at 1026 RPT #:[id number] OF REPORTPRProgress mlhl9632-52-52K40:12:00G.PIVU68380671-0727KNIgppz able for patient gfqeAURMBGLTGCYNCF8654-10-13B73:27:26 [facility] 2024-01-02 14:25:00 [id number] Nfmdg63AEuG1Nvh2o+5u5e4omE2lT jTAASO+Dy6SV0OdWdKPvHIDZKbb7538-28-80O55:25:00 [facility] CenterHospital[facility] Progress NoteREPORT#:[id number] REPORT STATUS: SignedREPORT INITIALIZATION DATE:01/02/24 TIME: 1424 PATIENT: CHARAN RESTREPO UNIT #: [id number]#: [id number] [address] [birth year] AGE: 53 SEX: M ATTEND: Marycruz Villalba AUTHOR: Jane Barrios DOREPT SERVICE DT/TIME: 01/02/24 0987* ALL edits or amendments must be made [...] pain, no urinary catheterExtremities: no edemaMusculoskeletal: normal inspectionNeuro/WASH TUB MACHINE OPERATOR: alert, normal speechSkin: intact, no rashPsychiatry: [...] 01/01 12/31 0837 8 2055 Coagulation PTT (Archuleta) (25.0 - 39.5 Seconds) 77.8 H 66.2 [...] % (Auto) (14.0 - 32.0 %) 24.4 [place] % (Auto) (4.8 - 9.0 %) 7.3 Eos % (Auto) (0.3 - 3.7 %) 5.3 H Baso % (Auto) (0.0 - 2.0 %) 1.3 Neut # (Auto) (2.0 - 7.6 x10 3/uL) 5.25 Lymph # (Auto) (1.0 - 3.8 x10 3/uL) 2.11 [place] # (Auto) (0.1 - 0.8 x10 3/uL) [...] M.D. Diagnosis, Assessment PlanConsultants: cardiology, cardiovascular surgery, critical/network associate, hospitalist Free Text DxA P NotesFree text DxA P notes:Non-sustained V-tachy, on Amiodarone dripChest pain 2/2 aboveLife vest stopped firingTobacco abuseDiabetic Mellitus II with hyperglycemiaHx Left atrial clot (on Eliquis)Hx Diabetes Mellitus IIHx CAD [facility]Ad[facility] CardiologyConsult Critical careContinous Telemetry monitoring - to [...] patient Nicotine patch but he declined.Pain control: [place] PRNDVT ppx: AC Antoni in [facility]-X-Ray:No acute cardiopulmonary process.Plan [...] likely for cabg- workup in progress- per discharge door operator patient has been cleared to transfer out [...] pending CT surgery input at 1427 RPT #:[id number] OF REPORTPRProgress egkf6175-41-86D68:25:00G.MLYY71317647-9957UCTxlph able for patient oxgxCTZLYAZCBNMHBH3021-92-47C49:28:[address] [facility] 2024-01-02 12:44:00 [id number] 4DqPEyNSnyAlSjueuSEGk0/KME930 ZWYhb4IV8NLebr7H0lN0vYxkUup2360-17-37F64:44:00 [facility] CenterCardioth[facility] Surgery ProgREPORT#:[id number] REPORT STATUS: SignedREPORT INITIALIZATION DATE:01/02/24 TIME: 1244 PATIENT: CHARAN RESTREPO UNIT #: [id number]#: [id number] [address] [birth year] AGE: 53 SEX: M ATTEND: [...] full range of motion, painless range of motionNeuro/WASH TUB MACHINE OPERATOR: alert, CNII-XII intactSkin: dry, intactPsychiatry: normal [...] 01/01 12/31 0837 317 2055 Coagulation PTT (Ulises) (25.0 - 39.5 [...] % (Auto) (14.0 - 32.0 %) 24.4 [place] % (Auto) (4.8 - 9.0 %) 7.3 Eos % (Auto) (0.3 - 3.7 %) 5.3 H Baso % (Auto) (0.0 - 2.0 %) 1.3 Neut # (Auto) (2.0 - 7.6 x10 3/uL) 5.25 Lymph # (Auto) (1.0 - 3.8 x10 3/uL) 2.11 [place] # (Auto) (0.1 - 0.8 x10 3/uL) [...] years, and chronic pain who presented to [facility] with complaints of life vest alarming and V-tach. Patient denies any shocks. He was started on an amiodarone drip and transferred to [facility] ED for further evaluation. He previously underwent left heart catheterization with [employer] about a monthago and was referred for bypass surgery. He was taken to the operating room where during the intraoperative ANAND there is some suspicion for thrombus, after talking with the patient's accounting professor we decided to cancel surgery due to [...] recommendations to follow Consultants: cardiology, cardiovascular surgery, critical/network associate, hospitalist at 101[address] [facility] #:[id number] OF REPORTPRProgress hxul2366-23-99O03:44:00G.XOQX54574183-1494MRPukhr able for patient wmotABXCPBFVJVKMIJ9951-45-30R34:12:21 [facility] 2024-01-02 05:44:00 [id number] ny2R2Hzx31y34Mb5GO81cMhAqh9UZ BtZAJLSOSRzC24oeJgpAbimg4CB2155-67-07V53:44:00 [facility])Cardiology Progress NoteREPORT#:[id number] REPORT STATUS: SignedREPORT INITIALIZATION DATE:01/02/24 TIME: 543 PATIENT: CHARAN RESTREPO UNIT #: [id number]#: [id number] [address] [birth year] AGE: 53 SEX: M ATTEND: [...] assessment: normal capillary refill, no edemaMusculoskeletal: normal inspectionNeuro/WASH TUB MACHINE OPERATOR: alert, oriented X 3, normal speechSkin: [...] Tests 01/018 2056 1118 0603 Coagulation PTT ([place]ises) (25.0 - 39.5 Seconds) 66.2 H 65.5 [...] % (Auto) (14.0 - 32.0 %) 24.4 [place] % (Auto) (4.8 - 9.0 %) 7.3 Eos % (Auto) (0.3 - 3.7 %) 5.3 H Baso % (Auto) (0.0 - 2.0 %) 1.3 Neut # (Auto) (2.0 - 7.6 x10 3/uL) 5.25 Lymph # (Auto) (1.0 - 3.8 x10 3/uL) 2.11 [place] # (Auto) (0.1 - 0.8 x10 3/uL) [...] communicated to AYLIN Will at 9:42 pm [place] by telephone. Impression By: ArleneCM29 - Adis [...] making by Dr. Iqbal. at 1242 RPT #:[id number] OF REPORTPRProgress mijh5372-09-11Z66:44:00G.GOWD23158334-2664XQPorpn able for patient uwkzYXSWPXUJGCFPPD3601-76-59P00:42:[address] [facility] 2024-01-01 16:13:00 [id number]+R E1UlhBW+lVu5v8xp2sIOBlsbrrRx1 BMhcfoFwNppNiu+pYHe1gRE/U2z6744-10-09G56:13:98806 2-0147 [place] [address] PATIENT NAME: CHARAN RESTREPO ADMIT DATE: 11/27/23ACCOUNT NO: [id number] ROOM NO: G.3302 AGE: 53 REPORT TYPE: 360 - QUERY RESPONSE DOCUMENT SEX: M ADMITTING PHYSICIAN:Papo Mayfield MD ATTENDING PHYSICIAN:Papo Mayfield MD Provider Query QUERY TEXT: Condition General 360MD Query related questions should be directed to:[facility] Coding Query Helpline Based on your clinical [...] AM at 1613 PATIENT NAME: CHARAN RESTREPO noteG.XBA33322518-2016WEWgkofakjq for patient gkeaUVEOHZLFLUFWJP0883-93-24M01:14:[address] [facility] 2024-01-01 15:30:00 [id number] /KyhpaRqIWNtnQfa8kQ55aTzTjxGq 4X1qOt3zhjq3JCGWb7EtT4mr1CV3900-69-41R01:30:00 [facility]Card[facility] ProgREPORT#:[id number] REPORT STATUS: SignedREPORT INITIALIZATION DATE:01/01/24 TIME: 153 PATIENT: CHARAN RESTREPO UNIT #: [id number]#: [id number] [address] [birth year] AGE: 53 SEX: M ATTEND: [...] full range of motion, painless range of motionNeuro/WASH TUB MACHINE OPERATOR: alert, CNII-XII intactSkin: dry, intactPsychiatry: normal [...] 12/30 1118 0603 0039 1825 Coagulation PTT (Archuleta) (25.0 - 39.5 Seconds) 50.1 H 55.9 [...] % (Auto) (14.0 - 32.0 %) 30.9 [place] % (Auto) (4.8 - 9.0 %) 8.7 Eos % (Auto) (0.3 - 3.7 %) 6.3 H Baso % (Auto) (0.0 - 2.0 %) 1.2 Neut # (Auto) (2.0 - 7.6 x10 3/uL) 3.78 Lymph # (Auto) (1.0 - 3.8 x10 3/uL) 2.25 [place] # (Auto) (0.1 - 0.8 x10 3/uL) [...] years, and chronic pain who presented to [facility] with complaints of life vest alarming and V-tach. Patient denies any shocks. He was started on an amiodarone drip and transferred to [facility] ED for further evaluation. He previously underwent left heart catheterization with [employer] about a monthago and was referred for bypass surgery. He was taken to the operating room where during the intraoperative ANAND there is some suspicion for thrombus, after talking with the patient's accounting professor we decided to cancel surgery due to [...] recommendations to follow Consultants: cardiology, cardiovascular surgery, critical/network associate, hospitalist at 0956 RPT #:[id number] OF REPORTPRProgress rupu4139-08-19A45:30:00G.YCNO15583027-1802ZAOgqao able for patient siraXIRSTPYAJONRWD8815-17-63D65:57:[address] [facility] 2024-01-01 12:24:00 [id number] VFhOO0vypbuf7HbSO7CwXUI2eDrMM I7kPBkTdjDM735goL/4Gv1un0sa4065-73-23R04:24:00 [facility] ([facility])Hospitalist Progress NoteREPORT#:[id number] REPORT STATUS: SignedREPORT INITIALIZATION DATE:01/01/24 TIME: 1223 PATIENT: CHARAN RESTREPO UNIT #: [id number]#: [id number] [address] [birth year] AGE: 53 SEX: M ATTEND: [...] pain, no urinary catheterExtremities: no edemaMusculoskeletal: normal inspectionNeuro/WASH TUB MACHINE OPERATOR: alert, normal speechSkin: intact, no rashPsychiatry: normal affect, normal mood Free Text Obj NotesFree Text Obj Notes:General appearance: alert, awakeHead/Eyes: normal conjunctiva/scleraCardiovascular: normal heart sounds, regular rate rhythmRespiratory: clear to auscultation, no distressAbdomen: normal bowel sounds, softExtremities: no edemaNeuro/WASH TUB MACHINE OPERATOR: alert, normal speechSkin: intact, no rashPsychiatry: normal affect, normal mood Diagnosis, Assessment Plan Free Text DxA P NotesFree text DxA P notes:Patient is a 53 yrs old male with Pmhx as mentioned above who presented withAssessment:Non-sustained V-tachy, on Amiodarone dripChest pain 2/2 aboveLife vest stopped firingTobacco abuseDiabetic Mellitus II with hyperglycemiaHx Left atrial clot (on Eliquis)Hx Diabetes Mellitus IIHx CAD [facility]Ad[facility] CardiologyConsult Critical careContinous Telemetry monitoring - to [...] patient Nicotine patch but he declined.Pain control: [place] PRNDVT ppx: AC Antoni in [facility]-X-Ray:No acute cardiopulmonary process.Plan [...] likely for cabg- workup in progress- per discharge door operator patient has been cleared to transfer [facility] while awaiting workup 12/31/23- heparin gtt- cta pending- ssi/fingersticks- smoking cessation- [facility] is on case and patient likely for cabg- workup in progress Diagnosis, Assessment PlanConsultants: cardiology, cardiovascular surgery, critical/network associate, hospitalist Free Text DxA P NotesFree text DxA P notes: Non-sustained V-tachy, on Amiodarone dripChest pain 2/2 aboveLife vest stopped firingTobacco abuseDiabetic Mellitus II with hyperglycemiaHx Left atrial clot (on Eliquis)Hx Diabetes Mellitus IIHx CAD PlanAdmit to [facility] CardiologyConsult Critical careContinous Telemetry monitoring - to [...] patient Nicotine patch but he declined.Pain control: [place] PRNDVT ppx: AC RayoLabhallie in [facility]-X-Ray:No acute cardiopulmonary process.Plan [...] likely for cabg- workup in progress- per discharge door operator patient has been cleared to transfer out [...] pending- ssi/fingersticks- smoking cessation at 1228 RPT #:[id number] OF REPORTPRProgress zflr0907-32-20A23:24:00G.SGLQ44432207-3409UECoibs able for patient kkbsNFVUKSVQQMEQLQ6270-92-45C16:28:37 [facility] 2024-01-01 11:02:00 [id number] 44lPAv6tgQELIwAcUaOOA5L8QA1Lr 1X7h0rJAm5onmPEoGdzwii5KYCg8387-69-51Y13:02:00 [facility] ([facility])Cardiology Progress NoteREPORT#:[id number] REPORT STATUS: SignedREPORT INITIALIZATION DATE:01/01/24 TIME: 110 PATIENT: CHARAN RESTREPO UNIT #: [id number]#: [id number] [address] [birth year] AGE: 53 SEX: M ATTEND: [...] assessment: normal capillary refill, no edemaMusculoskeletal: normal inspectionNeuro/WASH TUB MACHINE OPERATOR: alert, oriented X 3, normal speechSkin: [...] 12/30 0603 0039 1825 1244 Coagulation PTT (Archuleta) (25.0 - 39.5 Seconds) 55.9 H 61.9 [...] % (Auto) (14.0 - 32.0 %) 30.9 [place] % (Auto) (4.8 - 9.0 %) 8.7 Eos % (Auto) (0.3 - 3.7 %) 6.3 H Baso % (Auto) (0.0 - 2.0 %) 1.2 Neut # (Auto) (2.0 - 7.6 x10 3/uL) 3.78 Lymph # (Auto) (1.0 - 3.8 x10 3/uL) 2.25 [place] # (Auto) (0.1 - 0.8 x10 3/uL) [...] due to the chronicity. 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 and plan was to [...] making by Dr. Iqbal. at 1502 RPT #:[id number] OF REPORTPRProgress weij4839-44-19V55:02:00G.LQNS59445141-0689QSHafnv able for patient vejmWRVDACTBNDMKNQ8997-00-05Y10:02:[address] [facility] 2023-12-31 18:20:00 [id number] tEVSbq7IFu3lg87VlnLfS0G5Ktq/O eRyG6mfHG9sEqfQ9QYkXvfRSuc54489-64-12O18:20:00 [facility] ([facility])Hospitalist Progress NoteREPORT#:[id number] REPORT STATUS: SignedREPORT INITIALIZATION DATE:12/31/23 TIME: 1819 PATIENT: CHARAN RESTREPO UNIT #: [id number]#: [id number] [address] [birth year] AGE: 53 SEX: M ATTEND: [...] no distressAbdomen: normal bowel sounds, softExtremities: no edemaNeuro/WASH TUB MACHINE OPERATOR: alert, normal speechSkin: intact, no rashPsychiatry: [...] patient Nicotine patch but he declined.Pain control: [place] PRNDVT ppx: AC EliquisLabs in [facility]-X-Ray:No acute cardiopulmonary process.Plan [...] likely for cabg- workup in progress- per discharge door operator patient has been cleared to transfer out of ccu to [facility] while awaiting workup 12/31/23- heparin gtt- cta pending- ssi/fingersticks- smoking cessation- [facility] is on case and patient likely for cabg- workup in progress at 1351 RPT #:[id number] OF REPORTPRProgress utuw2709-88-52I20:20:00G.VPLL94071013-3630XVPjncv able for patient zayyPPQSJCWLOIORYI0337-37-49O08:52:[address] [facility] 2023-12-31 12:29:00 [id number] txPhNy2EHv3GQhhCoy3lxlLXPhjHT /iS/ATDwHzDCJfeomwKWsKJkvR50153-61-71F70:29:00 [facility] ([facility])EP Consultation NoteREPORT#:[id number] REPORT STATUS: SignedREPORT INITIALIZATION DATE:12/31/23 TIME: 1229 PATIENT: CHARAN RESTREPO UNIT #: [id number]#: [id number] [address] [birth year] AGE: 53 SEX: M ATTEND: [...] distress, pleasant, conversational, no respiratory distressRespiratory: no distressNeuro/WASH TUB MACHINE OPERATOR: alert, oriented X 3, normal gait, [...] % (Auto) (14.0 - 32.0 %) 30.1 [place] % (Auto) (4.8 - 9.0 %) 7.6 Eos % (Auto) (0.3 - 3.7 %) 6.6 H Baso % (Auto) (0.0 - 2.0 %) 1.3 Neut # (Auto) (2.0 - 7.6 x10 3/uL) 4.07 Lymph # (Auto) (1.0 - 3.8 x10 3/uL) 2.27 [place] # (Auto) (0.1 - 0.8 x10 3/uL) [...] and HLD. He recently had LHC at [facility] due to frequent chest pain and was referred to come here for CABG. The patient was recently admitted to [facility] on 11/27/23 for CABG work-up and surgery was scheduled for 11/30/23 but cancelled due to Right atrium thrombus on ANAND. He was discharged on LifeVest, anticoagulant (eliquis), and planning for CABG in 2-3 months. ECHO on 11/28/23, LVEF was 30-34%. The patient reports went to [facility] in [place] because had frequent chest pain and LifeVest alarming occurred few times, deniesLifeVest shocks. He was found to have episodes of VT, started on Amiodarone bolus/drip, and transfered to [facility] on 12/27/23 for further evaluation. EP consult [...] CABG decision at 1613 at 1125 RPT #:[id number] OF REPORTBYWxmirgvfutck0881-94-64G79:29:00G.PDOC2 [id number] for patient lvocUFMSJLJWYDUJND8438-06-53H67:13:[address] [facility] 2023-12-31 12:23:00 [id number]/7j 4T440lXmR/I9lUckhmNf24B++U54O hqyvT9/EeS0td96HYc05gjdl96t4112-53-29F00:23:[address] [address] [id number] PATIENT NAME: CHARAN RESTREPO ADMIT DATE: 12/27/23ACCOUNT NO: [id number] ROOM NO: 3345 AGE: 53 REPORT TYPE: 360 - QUERY RESPONSE DOCUMENT SEX: M ADMITTING PHYSICIAN:Jac Marsh MD ATTENDING PHYSICIAN:Marycruz Villalba MD Provider Query QUERY TEXT: Specificity General 360MD Query related questions should be directed to: Micki Awad RN, BSN [email or web address] Please provide any known specificity for AFIB [...] AM at 1223 PATIENT NAME: CHARAN RESTREPO noteG.[id number] for patient sliuQOYMHVBFXOYWFT9510-00-52I57:24:[address] [facility] 2023-12-31 11:03:00 [id number]+Do9aqUO 9stILC344pQ84qSsLES8CIKOvFIbX DyJZcXi98GXDh0mpiue9EQDm4pT5036-98-06E47:03:00 [facility])Cardiothoracic Surgery ProgREPORT#:[id number] REPORT STATUS: SignedREPORT INITIALIZATION DATE:12/31/23 TIME: 1102 PATIENT: CHARAN RESTREPO UNIT #: [id number]#: [id number] [address] [birth year] AGE: 53 SEX: M ATTEND: [...] full range of motion, painless range of motionNeuro/WASH TUB MACHINE OPERATOR: alert, CNII-XII intactSkin: dry, intactPsychiatry: normal [...] % (Auto) (14.0 - 32.0 %) 30.1 [place] % (Auto) (4.8 - 9.0 %) 7.6 Eos % (Auto) (0.3 - 3.7 %) 6.6 H Baso % (Auto) (0.0 - 2.0 %) 1.3 Neut # (Auto) (2.0 - 7.6 x10 3/uL) 4.07 Lymph # (Auto) (1.0 - 3.8 x10 3/uL) 2.27 [place] # (Auto) (0.1 - 0.8 x10 3/uL) [...] years, and chronic pain who presented to [facility] with complaints of life vest alarming and V-tach. Patient denies any shocks. He was started on an amiodarone drip and transferred to [facility] ED for further evaluation. He previously underwent left heart catheterization with [employer]ER of LAD about a monthago and was referred for bypass surgery. He was taken to the operating room where during the intraoperative ANAND there is some suspicion for thrombus, after talking with the patient's accounting professor we decided to cancel surgery due to [...] questions were answered Consultants: cardiology, cardiovascular surgery, critical/network associate, hospitalist at 0[address] [facility] #:[id number] OF REPORTPRProgress lnso5097-93-64V45:03:00G.YSPT39293328-6029SZWrhun able for patient ykimDYNTNNUOQZKNHH6472-11-26N37:56:[address] [facility] 2023-12-30 18:12:00 [id number] UWIjaxqpBlwOEnnG4JTkcPyFFQKVh ZJy9hdIiuy8s0rNvIRhRxPae3w26495-65-67W06:12:00 [facility] ([facility])Hospitalist Progress NoteREPORT#:[id number] REPORT STATUS: SignedREPORT INITIALIZATION DATE:12/30/23 TIME: 1811 PATIENT: CHARAN RESTREPO UNIT #: [id number]#: [id number] ROOM/BED: G.3345-1DOB: [birth year] AGE: 53 SEX: M ATTEND: Marycruz Villalba MDADM AUTHOR: aMrycruz Villalba MDREPT SERVICE DT/TIME: 12/30/231811* ALL edits [...] no distressAbdomen: normal bowel sounds, softExtremities: no edemaNeuro/WASH TUB MACHINE OPERATOR: alert, normal speechSkin: intact, no rashPsychiatry: [...] patient Nicotine patch but he declined.Pain control: [place] PRNDVT ppx: AC [facility] in [facility]-X-Ray:No acute cardiopulmonary process.Plan [...] likely for cabg- workup in progress- per discharge door operator patient has been cleared to transfer [facility] of [facility] while awaiting workup at 1351 RPT #:[id number] OF REPORTPRProgress xxzu2384-09-37E79:12:00G.NGRR64454958-9195LWMfkxc able for patient vmmlHRJLHFWLBPTQWY8836-77-23C02:51:[address] [facility] 2023-12-30 14:32:00 [id number]+7L dNil6Wt7K/D1Ig8C+LocS7fgGObUt 15H8LIKUoMN31DiCE5k7tKb4+fI6982-49-93I52:32:00 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 Patient was admitted to [facility] a month ago for CABG was found [...] LifeVest alarming he end up going to [facility] found to have nonsustained VT [...] Coagulation INR (0.8 - 1.2) 1.2 PTT ([place]) (25.0 - 39.5 Seconds) 37.1 PT Patient/Control [...] % (Auto) (14.0 - 32.0 %) 29.3 [place] % (Auto) (4.8 - 9.0 %) 7.0 Eos % (Auto) (0.3 - 3.7 %) 6.3 H Baso % (Auto) (0.0 - 2.0 %) 1.1 Neut # (Auto) (2.0 - 7.6 x10 3/uL) 4.00 Lymph # (Auto) (1.0 - 3.8 x10 3/uL) 2.10 [place] # (Auto) (0.1 - 0.8 x10 3/uL) [...] 1.98 Diagnosis, Assessment PlanConsultants: cardiology, cardiovascular surgery, critical/network associate, 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 Coronary artery disease: Patient has chronic chest pain unclear if it is dueto his underlying coronary artery disease versus atypical chest pain due to the chronicity. 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 and plan was to [...] CHEST AND THEN CABG at 1433 RPT #:[id number] OF REPORTPRProgress ozpe7850-36-61C61:32:00G.ZLOD55597529-1531MNDrbsa able for patient qmijZJXBJKHHZEFBUE4953-30-50J12:33:[address] [facility] 2023-12-30 12:15:00 [id number] P21mm0RZ6YUgdffjZml+HC+FQF4Gw J/RxM7YfeZ+iF3VhJPG3IFmIlOx3327-39-81O37:15:00 [facility] ProgREPORT#:[id number] REPORT STATUS: SignedREPORT INITIALIZATION DATE:12/30/23 TIME: 1215 PATIENT: CHARAN RESTREPO UNIT #: [id number]#: [id number] [address] [birth year] AGE: 53 SEX: M ATTEND: Marycruz Villalba [facility] AUTHOR: Papo Mayfield MDREPT SERVICE DT/TIME: 12/30/23 [...] full range of motion, painless range of motionNeuro/WASH TUB MACHINE OPERATOR: alert, CNII-XII intactSkin: dry, intactPsychiatry: normal [...] % (Auto) (14.0 - 32.0 %) 29.3 [place] % (Auto) (4.8 - 9.0 %) 7.0 Eos % (Auto) (0.3 - 3.7 %) 6.3 H Baso % (Auto) (0.0 - 2.0 %) 1.1 Neut # (Auto) (2.0 - 7.6 x10 3/uL) 4.00 Lymph # (Auto) (1.0 - 3.8 x10 3/uL) 2.10 [place] # (Auto) (0.1 - 0.8 x10 3/uL) [...] years, and chronic pain who presented to [facility] with complaints of life vest alarming and V-tach. Patient denies any shocks. He was started on an amiodarone drip and transferred to [facility] ED for further evaluation. He previously underwent left heart catheterization with [employer] of LAD about a monthago and was referred for bypass surgery. He was taken to the operating room where during the intraoperative ANAND there is some suspicion for thrombus, after talking with the patient's accounting professor we decided to cancel surgery due to [...] questions were answered. Consultants: cardiology, cardiovascular surgery, critical/network associate, hospitalist at 0941 RPT #:[id number] OF REPORTPRProgress eixp4194-20-49A63:15:00G.PBUC08032455-7602UTEzmoo able for patient nawgAVMAPIAOCZBEEA6698-54-76S49:42:[address] [facility] 2023-12-30 10:30:00 [id number] y/ZWG8PbDm7Wj81yHbEoaRtQbsfB1 tMA+MsD2RuzqoeyNtWhcs3jAv0V1798-38-01P57:30:00 [facility] ([facility])Critical Care Progress NoteREPORT#:[id number] REPORT STATUS: SignedREPORT INITIALIZATION DATE:12/30/23 TIME: 103 PATIENT: CHARAN RESTREPO UNIT #: [id number]#: [id number] [address] [birth year] AGE: 53 SEX: M ATTEND: [...] clot on Eliquis,presented to the ER at [facility] in [place] with chest pain. He also complained of [...] % (Auto) (14.0 - 32.0 %) 29.3 [place] % (Auto) (4.8 - 9.0 %) 7.0 Eos % (Auto) (0.3 - 3.7 %) 6.3 H Baso % (Auto) (0.0 - 2.0 %) 1.1 Neut # (Auto) (2.0 - 7.6 x10 3/uL) 4.00 Lymph # (Auto) (1.0 - 3.8 x10 3/uL) 2.10 [place] # (Auto) (0.1 - 0.8 x10 3/uL) [...] all, normal capillary refill, normal range of motionNeuro/WASH TUB MACHINE OPERATOR: alert, oriented X 3Skin: dry, normal [...] min excluding procedure timeConsultants: cardiology, cardiovascular surgery, critical/network associate, hospitalistCode status: full codePlan discussed with: patient, family, nurse, interdisc care teamCritical care time: Minutes: 35 at 1336 RPT #:[id number] OF REPORTPRProgress plan5170-38-11G39:30:00G.YLMB72960889-5380ICThwcx able for patient ocnoCZOIPOILLJCUIJ6903-28-62G41:36:46 [facility] 2023-12-29 17:46:00 [id number] /MiQR7QLzuI3Wrj4hlr7d9D6LURZS nB0/pCq0ME5I0YsQfPwE8X3CzwP8446-49-90P64:46:00 [facility] CenterHospital[facility] Progress NoteREPORT#:[id number] REPORT STATUS: SignedREPORT INITIALIZATION DATE:12/29/23 TIME: 1745 PATIENT: CHARAN RESTREPO UNIT #: [id number]#: [id number] [address] [birth year] AGE: 53 SEX: M ATTEND: [...] no distressAbdomen: normal bowel sounds, softExtremities: no edemaNeuro/WASH TUB MACHINE OPERATOR: alert, normal speechSkin: intact, no rashPsychiatry: normal affect, normal mood Diagnosis, Assessment Plan Free Text DxA P NotesFree text DxA P notes:Patient is a 53 yrs old male with Pmhx as mentioned above who presented withAssessment:Non-sustained V-tachy, on Amiodarone dripChest pain 2/2 aboveLife vest stopped firingTobacco abuseDiabetic Mellitus II with hyperglycemiaHx Left atrial clot (on Eliquis)Hx Diabetes Mellitus IIHx CAD [facility]Ad[facility]iologyConsult Critical careContinous Telemetry monitoring - to [...] patient Nicotine patch but he declined.Pain control: [place] PRNDVT ppx: AC EliquisLabs in [facility]-Ray:No acute cardiopulmonary process.Plan of care discussed with patient/NurseFurther rec's as per clinical course. 12/28/23- amiodarone gtt as needed- eliquis- ssi/fingersticks- smoking cessation- am labs- cardio input pending- remains in ccu 12/29/23- amiodarone gtt as needed- eliquis- ssi/fingersticks- smoking cessation- [facility] is on case and patient likely for cabg- remains in ccu at 1350 RPT #:[id number] OF REPORTPRProgress fltk1874-02-35N54:46:00G.IXPI66169128-3741VDRfhsg able for patient rpnoQCQIJSNAUDWOYK2329-60-41W99:51:[address] [facility] 2023-12-29 16:16:00 [id number] Os1yJprWQFym9JvYMyHRAMY2x+vTB AqXZZOBFZdBTd7BDDIqHq773n4I1629-24-20X33:16:00 [facility] ([facility])Critical Care Progress NoteREPORT#:[id number] REPORT STATUS: SignedREPORT INITIALIZATION DATE:12/29/23 TIME: 1615 PATIENT: CHARAN RESTREPO UNIT #: [id number]#: [id number] [address] [birth year] AGE: 53 SEX: M ATTEND: [...] clot on Eliquis,presented to the ER at [facility] in [place] with chest pain. He also complained of [...] all, normal capillary refill, normal range of motionNeuro/WASH TUB MACHINE OPERATOR: alert, oriented X 3Skin: dry, normal [...] time 33 min Consultants: cardiology, cardiovascular surgery, critical/network associate, hospitalist at 1627 RPT #:[id number] OF REPORTPRProgress whkt7686-54-97S28:16:00G.YTBG19319345-2372BNGhymp able for patient dlfjMZTLUHQVQPQZXC9032-97-17I44:28:[address] [facility] 2023-12-29 13:30:00 [id number]+txSCJ5 U0r93NZBN29cwN05OccpW5LTpz8b6 ewW+pMo5YzBcLu1S9JqBApDTSa12898-63-34A61:30:00 [facility] CenterCardiothor[facility] Surgery ConsultREPORT#:[id number] REPORT STATUS: SignedREPORT INITIALIZATION DATE:12/29/23 TIME: 133 PATIENT: CHARAN RESTREPO UNIT #: [id number]#: [id number] [address] [birth year] AGE: 53 SEX: M ATTEND: [...] years, and chronic pain who presented to [facility] with complaints of life vest alarming and V-tach. Patient denies any shocks. He was started on an amiodarone drip and transferred to [facility] ED for further evaluation. He previously underwent left heart catheterization with [employer] WORKER of LAD about a monthago and was referred for bypass surgery. He was taken to the operating room where during the intraoperative ANAND there is some suspicion for thrombus, after talking with the patient's accounting professor we decided to cancel surgery due to [...] 12/27 1414 Skin And Mucous Membrane Agent Sig/Marie Start [...] full range of motion, painless range of motionNeuro/WASH TUB MACHINE OPERATOR: alert, oriented X 3Skin: dry, intactPsychiatry: [...] % (Auto) (14.0 - 32.0 %) 27.5 [place] % (Auto) (4.8 - 9.0 %) 7.7 Eos % (Auto) (0.3 - 3.7 %) 5.7 H Baso % (Auto) (0.0 - 2.0 %) 1.0 Neut # (Auto) (2.0 - 7.6 x10 3/uL) 5.33 Lymph # (Auto) (1.0 - 3.8 x10 3/uL) 2.55 [place] # (Auto) (0.1 - 0.8 x10 3/uL) [...] years, and chronic pain who presented to [facility] with complaints of life vest alarming and V-tach. Patient denies any shocks. He was started on an amiodarone drip and transferred to [facility] ED for further evaluation. He previously underwent left heart catheterization with P[employer] WORK[employer] of LAD about a monthago and was referred for bypass surgery. He was taken to the operating room where during the intraoperative ANAND there is some suspicion for thrombus, after talking with the patient's accounting professor we decided to cancel surgery due to [...] surgeryFurther recommendations to follow. at 0941 RPT #:[id number] OF REPORTOSIigxpvulaatx1954-20-38S89:30:00G.PDOC2 5115552-7371OXTznufvvfk for patient mnpzOMPLWUDTATNGMC8907-93-12G08:42:[address] [facility] 2023-12-29 12:29:00 [id number] 8I9d2YkH5KEbk+VML9BIonocsyjUu LP2BsDc19ykNtKqDyzwnpethXJF7333-61-14G08:29:00 [facility] CenterCard[facility] Progress NoteREPORT#:[id number] REPORT STATUS: SignedREPORT INITIALIZATION DATE:12/29/23 TIME: 122 PATIENT: CHARAN RESTREPO UNIT #: [id number]#: [id number] [address] [birth year] AGE: 53 SEX: M ATTEND: Marycruz Villalba AUTHOR: Himanshu Lebron MDREPT SERVICE DT/TIME: 12/29/23 1229* ALL edits or amendments must be made on the electronic/computer document * SubjectiveChief complaint:CP, VT, LIfe Vest alarmingHPI:This is a 53-year-old male with past medical history of coronary artery disease 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 Patient was admitted to [facility] a month ago for CABG was found [...] LifeVest alarming he end up going to [facility] found to have nonsustained VT [...] % (Auto) (14.0 - 32.0 %) 27.5 [place] % (Auto) (4.8 - 9.0 %) 7.7 Eos % (Auto) (0.3 - 3.7 %) 5.7 H Baso % (Auto) (0.0 - 2.0 %) 1.0 Neut # (Auto) (2.0 - 7.6 x10 3/uL) 5.33 Lymph # (Auto) (1.0 - 3.8 x10 3/uL) 2.55 [place] # (Auto) (0.1 - 0.8 x10 3/uL) [...] 2.29 Diagnosis, Assessment PlanConsultants: cardiology, cardiovascular surgery, critical/network associate, 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 Coronary artery disease: Patient has chronic chest pain unclear if it is dueto his underlying coronary artery disease versus atypical chest pain due to the chronicity. 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 and plan was to [...] CHEST AND THEN CABG at 1230 [facility] #:[id number] OF REPORTPRProgress ymok6744-55-58X67:29:00G.NDIG89726391-6935AEAdpyp able for patient vhxbQDVLZQKLSWSGTQ0288-82-44S36:31:[address] [facility] 2023-12-29 12:21:00 [id number] Zb9hGaNscwV5d6iuPUbfzI7D/DF7/ Zu4rGlPNQioGOfDOMgtlVCitXuW4602-68-07L58:21:[address] [address] PATIENT NAME: CHARAN RESTREPO ADMIT DATE: 11/27/23ACCOUNT NO: [id number] ROOM NO: [facility] AGE: 53 REPORT TYPE: OPERATIVE REPORT SEX: M ADMITTING PHYSICIAN:Papo Mayfield MD ATTENDING PHYSICIAN:Papo Mayfield MD OPERATION DATE: 11/30/2023 DATE OF PROCEDURE: 11/30/2023. Mr. Farrar was taken to the operating room for coronary artery bypass graftsurgery, but intraoperative ANAND showed that the patient has a clot in the left ventricle. The case was then discussed with the patient's accounting professor and a decision was made not to proceed with coronary artery bypass graft surgery. The procedure was abandoned and the patient was extubated in the operating room and moved to intensive care unit in stable condition. Dictated By: Rafi Mayfield MD Date Dictated: 12/29/2023 12:21:13Date Transcribed: 12/29/2023 17:42:55/[facility] [place]/AHMJob #: [id number] ID: [id number] and Edited by Papo Mayfield MD On 01/05/24 12:42:17 PM at 1243 PATIENT NAME: CHARAN RESTREPO epwqov6015-82-57O11:42:00G.DYB40428059-4375ONKnul lable for patient udegUNHMVGGCPRFFDJ8003-29-76K75:45:[address] [facility] 2023-12-29 01:19:00 [id number] fOhSRWlN+zW7qRCZWvZyLun1h2k8D T/3eq3IuUUKII83GKMRjn6TB4kA5905-91-90M32:19:15272 9-0005 [place] 285058 PATIENT NAME: CHARAN RESTREPO ADMIT DATE: 12/27/23ACCOUNT NO: [id number] ROOM NO: 3308 AGE: 53 REPORT TYPE: eECHOCARDIOGRAM REPORT SEX: M ADMITTING PHYSICIAN:Jac Marsh MD ATTENDING PHYSICIAN:Marycruz Villalba MD *[address] [address]Zbisj: [phone]: [phone] Echocardiogram Patient: Anna Restrepoudy Date: 4BP: 118 / 59URN: [id number]: [id number]#: [id number]: 1970Age: 53Gender: MHeight: 70 in / 177.8 cmWeight: 185 lb / 83.9 kgBMI/BSA: 26.5 kg/m 2 / 2.05 m 2*Ordering Physician: * Alex Ley *Interpreting Physician: * Merlene Rutherford MD*News Operations Manager: * Rebeka Wright Indications: Chest Pain, unspecified. [...] 2 --------- LVOT/AV, Vpeak ratio 0.73 --------- SUMEET, Vmax 2.80 cm 2 --------- Mitral valve [...] at 0119 PATIENT NAME: CHARAN RESTREPO :19:0 0G.[id number] for patient fjumURCLDJKZOGFYBI7206-26-42E99:20:[address] [facility] 2023-12-28 20:46:00 [id number] nXroibjZ/wbuI731BdvPRV+99lXsw 8+KTaYAooX/Ru8ltqgtR6gZAQmO7682-12-94Q81:46:00 [facility] ([facility]ITALCardiology ConsultationREPORT#:[id number] REPORT STATUS: SignedREPORT INITIALIZATION DATE:12/28/23 TIME: 2045 PATIENT: CHARAN RESTREPO UNIT #: [id number]#: [id number] [address]OB: [birth year] AGE: 53 SEX: M ATTEND: Marycruz Villalba AUTHOR: Merlene Rutherford MDREPT SERVICE DT/TIME: 12/28/232045* ALL edits or amendments must be made on the electronic/computer document * History of Present Illness HPIReason for consult:CP VTChikevin complaint:CP, VT, LIfe Vest alarmingPCP:PCP: Jesusita Osuna MD HPI:This is a 53-year-old male with past medical history of coronary artery disease 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 Patient was admitted to [facility] a month ago for CABG was found [...] LifeVest alarming he end up going to [facility] found to have nonsustained VT [...] softLower extremity: LE assessment: no cyanosis, no edemaNeuro/WASH TUB MACHINE OPERATOR: alert, oriented X 3, normal speechSkin: [...] (Auto) (14.0 - 32.0 %) 23.0 20.0 [place] % (Auto) (4.8 - 9.0 %) 6.3 5.6 Eos % (Auto) (0.3 - 3.7 %) 4.4 H 3.8 H Baso % (Auto) (0.0 - 2.0 %) 0.8 0.9 Neut # (Auto) (2.0 - 7.6 x10 3/uL) 6.17 6.86 Lymph # (Auto) (1.0 - 3.8 x10 3/uL) 2.19 1.99 [place] # (Auto) (0.1 - 0.8 x10 3/uL) [...] due to the chronicity. 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 and plan was to [...] 5. Hyperlipidemia continue statin at 0705 RPT #:[id number] OF REPORTJGXcsqekbroktc9740-69-24C35:46:00G.PDOC2 4243685-8361LQSdzrfdogd for patient ljnpIQCIWIOIFDXEXS3128-07-13A26:05:43 [facility] 2023-12-28 19:43:00 [id number]+CAf5vM pd5MsIlQRzeYACIlqF66jrLlHxRIM EWhoE+ir0mMVIsBtLzDfFErQEJg5038-40-67I08:43:00 [facility])Hospitalist Progress NoteREPORT#:[id number] REPORT STATUS: SignedREPORT INITIALIZATION DATE:12/28/23 TIME: 1942 PATIENT: CHARAN RESTREPO UNIT #: [id number]#: [id number] [facility]OM[facility]BED: [facility]DOB: [birth year] AGE: 53 SEX: M ATTEND: Marycruz [...] no distressAbdomen: normal bowel sounds, softExtremities: no edemaNeuro/WASH TUB MACHINE OPERATOR: alert, normal speechSkin: intact, no rashPsychiatry: [...] patient Nicotine patch but he declined.Pain control: [place] PRNDVT ppx: AC EliquisLabs in [facility]:No acute cardiopulmonary process.Plan of care discussed with patient/NurseFurther rec's as per clinical course. 12/28/23- amiodarone gtt as needed- eliquis- ssi/fingersticks- smoking cessation- am labs- cardio input pending- remains in ccu at 1350 RPT #:[id number] OF REPORTPRProgress mwtb1177-62-19M12:43:00G.HXFL03009672-9887JJNpxjm able for patient zaydOELRXYJTSFWTQI7106-30-04B22:50:[address] [facility] 2023-12-28 12:44:00 [id number] qevhDJcU4XHTAgqCCEYcXDT4qREu8 51pfB51kQmveBhO2hqsvgYiO3YI5084-11-49J15:44:00 [facility] ([facility])Critical Care Progress NoteREPORT#:[id number] REPORT STATUS: SignedREPORT INITIALIZATION DATE:12/28/23 TIME: 1243 PATIENT: CHARAN RESTREPO UNIT #: [id number]#: [id number] [address] [birth year] AGE: 53 SEX: M ATTEND: Marycruz Villalba AUTHOR: Michelle Galvez SERVICE DT/TIME: 12/28/23 1244* ALL edits or amendments must be made on the electronic/computer document * SubjectiveHPI:Charan Restrepo is a 53-year-old male with past medical history significant for low ejection fraction, history of coronary disease, left atrial clot on Eliquis,presented to the ER at [facility] in [place] with chest pain. He also complained of [...] all, normal capillary refill, normal range of motionNeuro/WASH TUB MACHINE OPERATOR: alert, oriented X 3 Diagnosis, Assessment PlanConsultants: cardiology, cardiovascular surgery, critical/network associate, hospitalistCode status: full codeAdditional comments:Interval Events:12/28/23:Afib-now in [...] Care Time 33 min at 1343 RPT #:[id number] OF REPORTPRProgress wlxv1221-17-80A04:44:00G.ZSIJ30243332-3901USBldqm able for patient zanaMYWTOFHEHZCDCU2722-06-10R78:43:[address] [facility] 2023-12-27 23:08:00 [id number] CEKcJ31VGUf8oXoGVs28REUqJf8nj k/enJo4VISn74+J5XpNpxriT3c36960-50-24H35:08:00 [facility] CenterHospital[facility] History PhysicalREPORT#:[id number] REPORT STATUS: SignedREPORT INITIALIZATION DATE:12/27/23 TIME: 2307 PATIENT: CHARAN RESTREPO UNIT #: [id number]#: [id number] ROOM/BED: 33081DOB: [birth year] AGE: 53 SEX: M ATTEND: Jac Marsh [facility] AUTHOR: Tatum WilsonPREMILTON SERVICE DT/TIME: 12/27/232307* ALL edits or amendments must be made on the electronic/computer document * History of Present Illness HPIChief complaint:Chest pain, shortness of breath.PCP:PCP: Jesusita Osuna MD HPI:Charan Sweet is a 53 yrs old male with Pmhx CAD, DM II,Life vest, left atrial clot( on AC Eliquis) and tobacco abuse who presented to outside ED at [facility] in [place] for c/o chest pain and shortness of [...] no clubbing, no cyanosis, no edemaMusculoskeletal: normal inspectionNeuro/WASH TUB MACHINE OPERATOR: alert, oriented X 3, normal speechSkin: [...] (Auto) (14.0 - 32.0 %) 20.0 19.3 [place] % (Auto) (4.8 - 9.0 %) 5.6 8.3 Eos % (Auto) (0.3 - 3.7 %) 3.8 H 2.8 Baso % (Auto) (0.0 - 2.0 %) 0.9 0.7 Neut # (Auto) (2.0 - 7.6 x10 3/uL) 6.86 7.42 Lymph # (Auto) (1.0 - 3.8 x10 3/uL) 1.99 2.10 [place] # (Auto) (0.1 - 0.8 x10 3/uL) [...] pH (5.0 - 7.0) 5.0 Ur Specific [place] (1.005 - 1.030) 1.008 Urine Protein (NEGATIVE) [...] Eliquis)Hx Diabetes Mellitus IIHx CAD PlanAd[facility] CardiologyConsult Critical careContinous Telemetry monitoring - to [...] patient Nicotine patch but he declined.Pain control: [place] PRNDVT ppx: [facility]quisL[facility] [place]-[facility]:No acute cardiopulmonary process.Plan of care discussed with patient/NurseFurther rec's as per clinical course. at 0748 RPT #:[id number] OF REPORTHPHistory and physical [id number] AVAvailable for patient nmtmUPOATTMZRYYLWE7560-18-10P29:49:04 [facility] 2023-12-27 22:05:00 [id number] 2faJJHPYRu45FaieMLkhzYSfx34Xi dHIuEeroykHZMtcyZe5bx3jcKSR5174-36-38Q49:05:00 [facility] ([facility])Critical Care Consult NoteREPORT#:[id number] REPORT STATUS: SignedREPORT INITIALIZATION DATE:12/27/23 TIME: 2204 PATIENT: CHARAN RESTREPO UNIT #: [id number]#: [id number] [address] [birth year] AGE: 53 SEX: M ATTEND: [...] clot on Eliquis,presented to the ER at [facility] in [place] with chest pain. 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 Skin:Denies: [...] (Auto) (14.0 - 32.0 %) 20.0 19.3 [place] % (Auto) (4.8 - 9.0 %) 5.6 8.3 Eos % (Auto) (0.3 - 3.7 %) 3.8 H 2.8 Baso % (Auto) (0.0 - 2.0 %) 0.9 0.7 Neut # (Auto) (2.0 - 7.6 x10 3/uL) 6.86 7.42 Lymph # (Auto) (1.0 - 3.8 x10 3/uL) 1.99 2.10 [place] # (Auto) (0.1 - 0.8 x10 3/uL) [...] pH (5.0 - 7.0) 5.0 Ur Specific [place] (1.005 - 1.030) 1.008 Urine Protein (NEGATIVE) [...] Diagnosis, Assessment Plan Diagnosis, Assessment PlanConsultants: cardiology, critical/network associate, hospitalistPlan discussed with: patient, nurse, interdisc care [...] clot on Eliquis,presented to the ER at [facility] in [place] with chest pain. He also complained of [...] 4 extremities. [facility] firingNonsustained ventricular tachycardiaHistory of left atrial [...] DVT prophylaxis: On Eliquis Alex Ley MD [facility] pm at 0614 RPT #:[id number] OF REPORTPMEamwzhinmnzf1934-82-86H14:05:00G.PDOC2 [id number] for patient ballYURKNPJFOYJNFX9482-13-75W51:14:46 [facility] 2023-12-27 12:20:00 [id number] pGgx92jjZJ02MADJ2LJbE7D6pnifX fz1FFSyBJ72LE8lxPrWQmf9a3W09886-39-95D59:20:00 [facility] ([facility]ITALEMERGENCY PROVIDER REPORTREPORT#:[id number] REPORT STATUS: SignedDATE:12/27/23 TIME: 1220 PATIENT: CHARAN RESTREPO UNIT #: [id number]#: [id number] [address]: 53 SEX: M PCP PHYS: Jesustia Osuna MDSERVICE AUTHOR: Margarito Ricks MD * [...] is unsure of the name of the accounting professor that he is supposed to be following with. [facility] [place] [facility]. Patient [...] Neth Heart J. 2008 Tim:16(6):191-6. PubMed PMID: 84086736; PubMed CentralPMCID: [id number]. Bindu BE, Six AJ, et al. A prospective validation of the HEART score for chest pain patients at the emergency department. Int J Cardiol. 2013 Jul 3:168(3):2153-8. Doi: 10.1016/j.ijcard.2013.01.255. Epub 2012Dec 26. PubMed PMID: 55754057. Review of Systems Free Text ROS NotesFree Text ROS Notes1.Constitutional: No fever, No chills, No weight loss, No fatigue2. Head: No trauma, or No Headache3. Eyes: No eye pain, No eye redness4. Ears, nose, mouth, throat: no sore throat, no ear pain, no tooth pain, no nasal congestion5. Cardiovascular: Endorses chest pain or discomfort, no palpitations6. Respiratory: no wtlwmycra-rr-wolsgp, no cough7. GI: No nausea, no vomiting, no diarrhea, no constipation, no abdominal pain8 .: Denies dysuria, No hematuria, denies flank pain, denies reproductive organ pain/discomfort8. Musculoskeletal: no muscle pain, no swelling9. Skin: No rash, no byqygup12. Neurologic: No weakness or numbness.11.Back: No Back Pain, No back . 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 at 2222RPT #:[id number] OF REPORTMercy Hospital [facility] ogyktq0422-54-64Z39:20:00G.JHRT14049849-1364HDAez ilable for patient rqftINUGCQEDFTKCPW1524-81-46P91:23:15 [facility] 2023-12-03 14:50:00 [id number] PfD8cmX908CEdiDftz04eUR97ai2k EqRrR1zaX0Rih8PoZj8lmuQFwzV7072-43-90F40:50:00 [facility] Discharge SummaryREPORT#:[id number] REPORT STATUS: SignedREPORT INITIALIZATION DATE:12/03/23 TIME: 145 PATIENT: CHARAN RESTREPO UNIT #: [id number]#: [id number] [address] [birth year] AGE: 53 SEX: M ATTEND: [...] in 2 weeks Consultants: cardiology, cardiovascular surgery, critical/network associate, hospitalist Free Text DxA P NotesFree text [...] distentionExtremities: moves all, no calf tenderness, no edemaNeuro/WASH TUB MACHINE OPERATOR: alert, oriented X 3, CNII-XII intact, [...] % (Auto) (14.0 - 32.0 %) 22.2 [place] % (Auto) (4.8 - 9.0 %) 9.9 H Eos % (Auto) (0.3 - 3.7 %) 4.4 H Baso % (Auto) (0.0 - 2.0 %) 1.3 Neut # (Auto) (2.0 - 7.6 x10 3/uL) 4.87 Lymph # (Auto) (1.0 - 3.8 x10 3/uL) 1.77 [place] # (Auto) (0.1 - 0.8 x10 3/uL) [...] to: Home/Self CareAdditional Discharge Routines: PCP Follow-Up, Nut Culler Follow-UpDiet: Diabetic, CardiacActivity: As Tolerated Follow-up AppointmentsPCP [...] best of my knowledge. at 1851 RPT #:[id number] OF REPORTDSDischarge wtskcuo8673-40-02F40:50:00G.UXXR10499216-8688YEQz ailable for patient nujmRHWESKPCMAUHPU1431-45-88L42:51:48 [facility] 2023-12-03 12:42:00 [id number] DwTKSH0zM12sASRUtMf1nAe/JlJWi 1xaPVy2qcAukrO4t2/2o94W+OiF4286-54-11O09:42:00 [facility] CenterCardi[facility] Surgery ProgREPORT#:[id number] REPORT STATUS: SignedREPORT INITIALIZATION DATE:12/03/23 TIME: 124 PATIENT: CHARAN RESTREPO UNIT #: [id number]#: [id number] [address] [birth year] AGE: 53 SEX: M ATTEND: [...] foleyExtremities: dry, moves allMusculoskeletal: full range of motionNeuro/WASH TUB MACHINE OPERATOR: alert, oriented X 3Skin: dry, intact, [...] % (Auto) (14.0 - 32.0 %) 22.2 [place] % (Auto) (4.8 - 9.0 %) 9.9 H Eos % (Auto) (0.3 - 3.7 %) 4.4 H Baso % (Auto) (0.0 - 2.0 %) 1.3 Neut # (Auto) (2.0 - 7.6 x10 3/uL) 4.87 Lymph # (Auto) (1.0 - 3.8 x10 3/uL) 1.77 [place] # (Auto) (0.1 - 0.8 x10 3/uL) [...] past, hypertension, diabetes, hyperlipidemia who presented to [facility] with complaints of chest pains. He previously underwent left heart catheterization about 1 month ago and was referred for bypass surgery in the outpatient setting however he did not get hisoutpatient appointment yet. The patient reports back to the hospital with complaints of chest pains radiating to the left arm. 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 [...] response to plavix 117, [facility] uploaded-will reviewContinue preop workupI will [...] for thrombus, after talking with the patient's accounting professor we decided to cancel surgery due to the increase risk of thromboembolic event. 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 ([facility] HOSPITALCardiology Progress NoteREPORT#:[id number] REPORT STATUS: SignedREPORT INITIALIZATION DATE:12/03/23 TIME: 829 PATIENT: CHARAN RESTREPO UNIT #: [id number]#: [id number] [address] [birth year] AGE: 53 SEX: M ATTEND: [...] sounds, no distentionLower extremity: LE assessment: no edemaNeuro/WASH TUB MACHINE OPERATOR: alert, oriented X 3, no motor [...] % (Auto) (14.0 - 32.0 %) 22.2 [place] % (Auto) (4.8 - 9.0 %) 9.9 H Eos % (Auto) (0.3 - 3.7 %) 4.4 H Baso % (Auto) (0.0 - 2.0 %) 1.3 Neut # (Auto) (2.0 - 7.6 x10 3/uL) 4.87 Lymph # (Auto) (1.0 - 3.8 x10 3/uL) 1.77 [place] # (Auto) (0.1 - 0.8 x10 3/uL) [...] NotesFree Text DxA P Notes:1. 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 Rodriguez this week. at 2048 RPT #:[id number] OF REPORTPRProgress ifxp1352-30-84X08:30:00G.CEDX90421637-4917RITjyli able for patient hiskQTIVVVNVFNUSJS1046-89-46L47:48:[address] [facility] 2023-12-02 12:48:00 [id number] FJSvrgqSO/CV7+1p68TRBSVK8+snu l+kp/OS76jLBjmiC3K1UnF7SaPP2486-35-57N71:48:00 [facility] ([facility])Hospitalist Progress NoteREPORT#:[id number] REPORT STATUS: SignedREPORT INITIALIZATION DATE:12/02/23 TIME: 1247 PATIENT: CHARAN RESTREPO UNIT #: [id number]#: [id number] [address] [birth year] AGE: 53 SEX: M ATTEND: [...] distentionExtremities: moves all, no calf tenderness, no edemaNeuro/WASH TUB MACHINE OPERATOR: alert, oriented X 3, CNII-XII intact, [...] % (Auto) (14.0 - 32.0 %) 21.8 [place] % (Auto) (4.8 - 9.0 %) 7.4 Eos % (Auto) (0.3 - 3.7 %) 4.0 H Baso % (Auto) (0.0 - 2.0 %) 0.7 Neut # (Auto) (2.0 - 7.6 x10 3/uL) 6.35 Lymph # (Auto) (1.0 - 3.8 x10 3/uL) 2.11 [place] # (Auto) (0.1 - 0.8 x10 3/uL) [...] catheter Diagnosis, Assessment PlanConsultants: cardiology, cardiovascular surgery, critical/network associate, hospitalist Free Text DxA P NotesFree text [...] -- continue current management at 2017 RPT #:[id number] OF REPORTPRProgress hfpq0696-69-87X74:48:00G.QNTD29763809-6720WXBuobs able for patient gfsfSEOOSDMRYYHDRL9897-39-37E89:17:[address] [facility] 2023-12-02 12:09:00 [id number]+c9F/Vxz 9AqOZIk9NzNhpXEo/VwmV2cNTGhio /+oZOL/Wu0cjDQzPHtwLzBq1zLX8369-42-74Q74:09:00 [facility] ([facility])Critical Care Progress NoteREPORT#:[id number] REPORT STATUS: SignedREPORT INITIALIZATION DATE:12/02/23 TIME: 1209 PATIENT: CHARAN RESTREPO UNIT #: [id number]#: [id number] [address] [birth year] AGE: 53 SEX: M ATTEND: Papo Mayfield MDADM AUTHOR: Michelle GalvezPREPT SERVICE DT/TIME: 12/02/23 1209* ALL edits or amendments must be made on the electronic/computer document * SubjectiveChief complaint:Chest PainHPI:53-year-old gentleman with past medical history of coronary artery disease status post previous PCI in the past, hypertension, diabetes, hyperlipidemia whotransferred [facility]. Objective GeneralVS/I OLast Documented: [...] the past, hypertension, diabetes, hyperlipidemia whotransferred from [facility] to [facility] for CABG evaluation. Problems:* Multivessel disease* Chest [...] critical care spent. Consultants: cardiology, cardiovascular surgery, critical/network associate, hospitalist Quality: Gen Med Crit Care Current [...] best of my knowledge. at 1222 RPT #:[id number] OF REPORTPRProgress awgb0478-56-79A54:09:00G.NETZ21155271-7392YSOpefl able for patient nvmfPDKMRFRGVWQRYF5645-66-83T39:23:[address] [facility] 2023-12-02 11:59:00 [id number]+5 9yEaDBcx2iy+5SsPJk9tsHPOmIHbQ 5t6tkVdT3pq4eaJsl/pHz5EEAIg4206-31-29R98:59:00 [facility]Cardi[facility] ProgREPORT#:[id number] REPORT STATUS: SignedREPORT INITIALIZATION DATE:12/02/23 TIME: 1159 PATIENT: CHARAN RESTREPO UNIT #: [id number]#: [id number] [facility]ED: [facility]-1DOB: [birth year] AGE: 53 SEX: M ATTEND: Papo [...] foleyExtremities: dry, moves allMusculoskeletal: full range of motionNeuro/WASH TUB MACHINE OPERATOR: alert, oriented X 3Skin: dry, intact, [...] % (Auto) (14.0 - 32.0 %) 21.8 [place] % (Auto) (4.8 - 9.0 %) 7.4 Eos % (Auto) (0.3 - 3.7 %) 4.0 H Baso % (Auto) (0.0 - 2.0 %) 0.7 Neut # (Auto) (2.0 - 7.6 x10 3/uL) 6.35 Lymph # (Auto) (1.0 - 3.8 x10 3/uL) 2.11 [place] # (Auto) (0.1 - 0.8 x10 3/uL) [...] past, hypertension, diabetes, hyperlipidemia who presented to [facility] with complaints of chest pains. He previously underwent left heart catheterization about 1 month ago and was referred for bypass surgery in the outpatient setting however he did not get hisoutpatient appointment yet. The patient reports back to the hospital with complaints of chest pains radiating to the left arm. 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 [...] for thrombus, after talking with the patient's accounting professor we decided to cancel surgery due to the increase risk of thromboembolic event. Procedure cancelled today and CTA heart ordered for further evaluation 12/01/23Patient doing wellCTA heart reviewed, report pendingStop heparin and start eliquis 5 mg BIDDiscontinue central lineDiscussed plan of care with accounting professor and will hold off on surgery due [...] cardiologyAll questions answered. Consultants: cardiology, cardiovascular surgery, critical/network associate, hospitalist at 1250 RPT #:[id number] OF REPORTPRProgress unsc5538-16-17U13:59:00G.AVZT20006754-6338ZPYhleh able for patient kcsoBZRIQEPTSRZICU0696-19-69T32:51:[address] [facility] 2023-12-02 02:48:00 [id number] zyx+zivFeDcG1rPpJRfavkV0vPHYU r1qWK45ynX7Gdm9w3Ghalz/WVFA3776-63-48Y60:48:54962 0-[address] [address] PATIENT NAME: CHARAN RESTREPO ADMIT DATE: 11/27/23ACCOUNT NO: [id number] ROOM NO: [facility] AGE: 53 REPORT TYPE: eELECTROCARDIOGRAM REPORT SEX: M ADMITTING PHYSICIAN:Papo Mayfield MD ATTENDING PHYSICIAN:Papo Mayfield MD Order:[id number] Reason : CP Test Date/Time Stamp:[place] Dec 02 2023 02:48:41Blood Pressure : / [...] MD at 1325 PATIENT NAME: CHARAN RESTREPO .[id number] AVAvailable for patient vkpkVKVFDODCEBOEEU5079-05-73A96:25:[address] [facility] 2023-12-01 13:03:00 [id number] /2f7XSw+CAhPPc9mUA5PCQ6FiA4bL 7q+HNVuS5n87dOR1LrwBd/mnrFZ7387-37-70E70:03:00 [facility]Cardi[facility] ProgREPORT#:[id number] REPORT STATUS: SignedREPORT INITIALIZATION DATE:12/01/23 TIME: 1303 PATIENT: CHARAN RESTREPO UNIT #: [id number]#: [id number] ROOM[facility]BED: [facility]-1DOB: [birth year] AGE: 53 SEX: M ATTEND: Papo [...] foleyExtremities: dry, moves allMusculoskeletal: full range of motionNeuro/WASH TUB MACHINE OPERATOR: alert, oriented X 3Skin: dry, intact, [...] ResultsFindings/Data:Laboratory Tests 12/01 12/01 12/01 11/30 1036 5412 5946 2033 Chemistry Sodium (134 - 147 mEq/L) 138 [...] (Auto) (14.0 - 32.0 %) 8.1 L [place] % (Auto) (4.8 - 9.0 %) 6.9 Eos % (Auto) (0.3 - 3.7 %) 0.5 Baso % (Auto) (0.0 - 2.0 %) 0.4 Neut # (Auto) (2.0 - 7.6 x10 3/uL) 10.26 H Lymph # (Auto) (1.0 - 3.8 x10 3/uL) 1.00 [place] # (Auto) (0.1 - 0.8 x10 3/uL) [...] past, hypertension, diabetes, hyperlipidemia who presented to [facility] with complaints of chest pains. He previously underwent left heart catheterization about 1 month ago and was referred for bypass surgery in the outpatient setting however he did not get hisoutpatient appointment yet. The patient reports back to the hospital with complaints of chest pains radiating to the left arm. 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 [...] for thrombus, after talking with the patient's accounting professor we decided to cancel surgery due to the increase risk of thromboembolic event. Procedure cancelled today and CTA heart ordered for further evaluation 12/01/23Patient doing wellCTA heart reviewed, report pendingStop heparin and start eliquis 5 mg BIDDiscontinue central lineDiscussed plan of care with accounting professor and will hold off on surgery due to thrombus, repeat echo in 3 months to reevaluate, continue blood thinners, no surgical intervention at this timeFollow up with cardiology for management of chest painPatient verbalized understanding and all questions answered. Consultants: cardiology, cardiovascular surgery, critical/network associate, hospitalist at 1249 RPT #:[id number] OF REPORTPRProgress ejfv1893-20-22J75:03:00G.TLFK15087047-7965IZUecsp able for patient szzzDGZLYVQQYKDXUW5279-17-14F07:50:[address] [facility] 2023-12-01 12:02:00 [id number] K4X/5/rzhNDGdekB800/Y42dulisc DiozoO0OUCdIax4MFZSbWfQ0wmY4747-61-25X52:02:00 [facility] ([facility])Critical Care Progress NoteREPORT#:[id number] REPORT STATUS: SignedREPORT INITIALIZATION DATE:12/01/23 TIME: 120 PATIENT: CHARAN RESTREPO UNIT #: [id number]#: [id number] [address] [birth year] AGE: 53 SEX: M ATTEND: Papo Mayfield MDADM AUTHOR: Michelle Galvez APRMONTEZPREPT SERVICE DT/TIME: 12/01/23 1202* ALL edits or amendments must be made on the electronic/computer document * SubjectiveChief complaint:Chest PainHPI:53-year-old gentleman with past medical history of coronary artery disease status post previous PCI in the past, hypertension, diabetes, hyperlipidemia whotransferred from [facility] to [facility] for CABG evaluation. Objective GeneralVS/I OLast Documented: [...] the past, hypertension, diabetes, hyperlipidemia whotransferred from [facility] to [facility] for CABG evaluation. 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 Per CTS transition to Eliquis 5 mg BID x 3 month-repeat ECHO in 3 month. No surgery until follow up ECHO. D/c right IJ-[facility]. Neuro:Awake and follows commandHOH CV:LV thrombusHeparin dripTo start Eliquis 5 mg PO BIDHLD-Atorvastatin Mutivessel DzMetoprolol 25 mg XLASA 81 mg Po dailySystolic and diastolic HF, LVEF 30-34% RESP:RACXR as neededNeb TX as needed GI/:VoidingPPIBowel regimen ENDO:Hx DMInsulin high doseLantus 5 units BID HEME:Heparin DripTransition to Eliquis ID:Mild elevation in WBCAfebrile 35 minutes of critical care spent. Consultants: cardiology, cardiovascular surgery, critical/network associate, hospitalist Quality: Gen Med Crit Care Current [...] best of my knowledge. at 1231 RPT #:[id number] OF REPORTPRProgress mdsd3891-14-70D76:02:00G.CQVG91288388-0598MVVfegv able for patient igcmQWNZKQTCROMRVP1525-58-42V75:11:26 [facility] 2023-12-01 12:02:00 [id number] HtTuNen8RwCLgTLGxSiSu5BhO0/eu 7rUamWlclng8be8TrdceyB9zh/27037-98-57X11:02:00 [facility] Hospitalist Progress NoteREPORT#:[id number] REPORT STATUS: SignedREPORT INITIALIZATION DATE:12/01/23 TIME: 1202 PATIENT: CHARAN RESTREPO UNIT #: [id number]#: [id number] [address] [birth year] AGE: 53 SEX: M ATTEND: [...] distentionExtremities: moves all, no calf tenderness, no edemaNeuro/WASH TUB MACHINE OPERATOR: alert, oriented X 3, CNII-XII intact, [...] (Auto) (14.0 - 32.0 %) 8.1 L [place] % (Auto) (4.8 - 9.0 %) 6.9 Eos % (Auto) (0.3 - 3.7 %) 0.5 Baso % (Auto) (0.0 - 2.0 %) 0.4 Neut # (Auto) (2.0 - 7.6 x10 3/uL) 10.26 H Lymph # (Auto) (1.0 - 3.8 x10 3/uL) 1.00 [place] # (Auto) (0.1 - 0.8 x10 3/uL) [...] catheter Diagnosis, Assessment PlanConsultants: cardiology, cardiovascular surgery, critical/network associate, hospitalist Free Text DxA P NotesFree text [...] he is hemodynamic stable at 2017 RPT #:[id number] OF REPORTPRProgress swul7625-93-84H60:02:00G.WURB10431021-8904HKAphja able for patient pseqXXCUFOCGELHNSJ4683-49-43I15:21:[address] [facility] 2023-11-30 13:13:00 [id number]/gUXnU oC+CiiVr/ONX/RBdRabvl/VBNCVEl 1SpVEBpzudHSYgluLqQ86CIDDUy3473-23-32T90:13:00 [facility] ([facility])Critical Care Consult NoteREPORT#:[id number] REPORT STATUS: SignedREPORT INITIALIZATION DATE:11/30/23 TIME: 1312 PATIENT: CHAARN RESTREPO UNIT #: [id number]#: [id number] [address] [birth year] AGE: 53 SEX: M ATTEND: [...] the past, hypertension, diabetes, hyperlipidemia whotransferred from [facility] to [facility] for CABG evaluation. History - Adult longitudinalPast medical history:Reports: Coronary artery disease, Diabetes mellitus. Past surgical history:Reports: (Left Tib, Fib). Family history:Denies: CAD < 40 yrs old. 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 Power Review of Systems ROSUnable to obtain due [...] 20 ML .STK-MED ONE IV (DC) Rocuronium Noel (ZEMURON) 0 .STK-MED ONE IV (DC) Aminocaproic [...] INR (0.8 - 1.2) 1.0 1.1 PTT ([place]) (25.0 - 39.5 Seconds) 57.9 H 78.6 [...] (Auto) (14.0 - 32.0 %) 22.3 25.0 [place] % (Auto) (4.8 - 9.0 %) 8.0 8.0 Eos % (Auto) (0.3 - 3.7 %) 4.7 H 4.9 H Baso % (Auto) (0.0 - 2.0 %) 1.2 1.0 Neut # (Auto) (2.0 - 7.6 x10 3/uL) 4.79 4.83 Lymph # (Auto) (1.0 - 3.8 x10 3/uL) 1.69 2.00 [place] # (Auto) (0.1 - 0.8 x10 3/uL) [...] Report Impression - Status: SIGNED Entered: 11/30/2023 5448 IMPRESSION: Interval placement of endotracheal tube in [...] amberOxygen: ventilatorVentilator: assist controlRASS Score: Copyright 2012 [facility], All rights reserved Copyright 2012 [facility], All rights reserved RASS Score: -2 [...] 11/30 1245 Active Consultants: cardiology, cardiovascular surgery, critical/network associate, hospitalistPlan discussed with: spouse/partner, collaborating MD, nurse, pharmacy/pharmacist Code Status/Resusc. DiscussionCode status: full codeFree text DxA P:53-year-old gentleman with past medical history of coronary artery disease status post previous PCI in the past, hypertension, diabetes, hyperlipidemia whotransferred from [facility] to [facility] for CABG evaluation. Problems:* Multivessel disease* Chest [...] of critical care spent. at 1826 RPT #:[id number] OF REPORTKXAoukzpiybvru1787-05-91Y79:13:00G.PDOC2 0116595-6011XFNwxxkbsff for patient fcakZTBEFWDQOJVEBT7297-97-17J34:48:[address] [facility] 2023-11-30 12:19:00 [id number]/1aTCekS 5y7jGPZmyVOC2KMl8Onwo21JFgEtH S02/Dd9dzg9elHz4vAbvotgwkl11079-92-44Z08:19:00 [facility] ProgREPORT#:[id number] REPORT STATUS: SignedREPORT INITIALIZATION DATE:11/30/23 TIME: 1218 PATIENT: CHARAN RESTREPO UNIT #: [id number]#: [id number] [address] [birth year] AGE: 53 SEX: M ATTEND: [...] foleyExtremities: dry, moves allMusculoskeletal: full range of motionNeuro/WASH TUB MACHINE OPERATOR: alert, oriented X 3Skin: dry, intact, [...] 20 ML .STK-MED ONE IV (DC) Rocuronium Noel (ZEMURON) 0 .STK-MED ONE IV (DC) Aminocaproic [...] 11/30 11/30 11/29 11/29 1108 0816 0402 0539 1731Chemistry Sodium (134 - 147 mEq/L) 137 [...] (Auto) (14.0 - 32.0 %) 22.3 25.0 [place] % (Auto) (4.8 - 9.0 %) 8.0 8.0 Eos % (Auto) (0.3 - 3.7 %) 4.7 H 4.9 H Baso % (Auto) (0.0 - 2.0 %) 1.2 1.0 Neut # (Auto) (2.0 - 7.6 x10 3/uL) 4.79 4.83 Lymph # (Auto) (1.0 - 3.8 x10 3/uL) 1.69 2.00 [place] # (Auto) (0.1 - 0.8 x10 3/uL) [...] past, hypertension, diabetes, hyperlipidemia who presented to [facility] with complaints of chest pains. He previously underwent left heart catheterization about 1 month ago and was referred for bypass surgery in the outpatient setting however he did not get hisoutpatient appointment yet. The patient reports back to the hospital with complaints of chest pains radiating to the left arm. 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 [...] for thrombus, after talking with the patient's accounting professor we decided to cancel surgery due to the increase risk of thromboembolic event. Procedure cancelled today and CTA heart ordered for further evaluation Consultants: cardiology, cardiovascular surgery at 1202 RPT #:[id number] OF REPORTPRProgress pjpy3543-88-44K63:19:00G.YBGR33867860-5913UWAxlks able for patient ukrkBUVFHYHWJIETJG6746-89-94A25:03:11 [facility] 2023-11-30 09:53:00 [id number]/XnpyQE A1pM3SvWVs5W267/MKrd6xK3l9a01 5n6BU8Qe+CP+xaaQVZYVAXSZtWT9030-91-70Y13:53:00 [facility] ([facility])Cardiology Progress NoteREPORT#:[id number] REPORT STATUS: SignedREPORT INITIALIZATION DATE:11/30/23 TIME: 952 PATIENT: CHARAN RESTREPO UNIT #: [id number]#: [id number] [address] [birth year] AGE: 53 SEX: M ATTEND: [...] 20 ML .STK-MED ONE IV (DC) Rocuronium Noel (ZEMURON) 0 .STK-MED ONE IV (DC) Aminocaproic [...] sounds, no distentionLower extremity: LE assessment: no edemaNeuro/WASH TUB MACHINE OPERATOR: alert, oriented X 3, no motor [...] (Auto) (14.0 - 32.0 %) 22.3 25.0 [place] % (Auto) (4.8 - 9.0 %) 8.0 8.0 Eos % (Auto) (0.3 - 3.7 %) 4.7 H 4.9 H Baso % (Auto) (0.0 - 2.0 %) 1.2 1.0 Neut # (Auto) (2.0 - 7.6 x10 3/uL) 4.79 4.83 Lymph # (Auto) (1.0 - 3.8 x10 3/uL) 1.69 2.00 [place] # (Auto) (0.1 - 0.8 x10 3/uL) [...] NotesFree Text DxA P Notes:1. CAD: has P[employer]ER [employer] P[employer] MILL WORKER of mLAD and was referred for CABG [...] on anticoagulation at 1148 at 1614 RPT #:[id number] OF REPORTPRProgress rtbz9691-19-74Q25:53:00G.RRYU60856873-7639ZFYphnb able for patient iuovIVQGAFQAMDRAWK9952-36-52B06:44:35 [facility] 2023-11-30 09:49:00 [id number] oQDFUkmTIIwp57Aw66DpahUk7Y+Uo 34DSOfWD8oylONowLdX9bfANb7e7548-20-43S92:49:00 [facility] Hospitalist Progress NoteREPORT#:[id number] REPORT STATUS: SignedREPORT INITIALIZATION DATE:11/30/23 TIME: 948 PATIENT: CHARAN RESTREPO UNIT #: [id number]#: [id number] [address] [birth year] AGE: 53 SEX: M ATTEND: [...] 20 ML .STK-MED ONE IV (DC) Rocuronium Noel (ZEMURON) 0 .STK-MED ONE IV (DC) Aminocaproic [...] distentionExtremities: moves all, no calf tenderness, no edemaNeuro/WASH TUB MACHINE OPERATOR: alert, oriented X 3, CNII-XII intact, [...] (Auto) (14.0 - 32.0 %) 22.3 25.0 [place] % (Auto) (4.8 - 9.0 %) 8.0 8.0 Eos % (Auto) (0.3 - 3.7 %) 4.7 H 4.9 H Baso % (Auto) (0.0 - 2.0 %) 1.2 1.0 Neut # (Auto) (2.0 - 7.6 x10 3/uL) 4.79 4.83 Lymph # (Auto) (1.0 - 3.8 x10 3/uL) 1.69 2.00 [place] # (Auto) (0.1 - 0.8 x10 3/uL) [...] in CCU.11/30 On heparin. Pending surgery. at 1576 at 7849 RPT #:[id number] OF REPORTPRProgress pwny4860-69-91W21:49:00G.HWSA90946382-4363SJZswqi able for patient mamiPLDRJNDPHCBKYG8482-53-37V42:13:[address] [facility] 2023-11-29 14:52:00 [id number] tFgx48SSpBz14awKKQBHHjBiBk9ic MG1iBsILAZHjvVBxc4pxnYetwok2519-46-42J68:52:00 [facility] ([facility])Cardiology Progress NoteREPORT#:[id number] REPORT STATUS: SignedREPORT INITIALIZATION DATE:11/29/23 TIME: 1451 PATIENT: CHARAN RESTREPO UNIT #: [id number]#: [id number] [address] [birth year] AGE: 53 SEX: M ATTEND: [...] sounds, no distentionLower extremity: LE assessment: no edemaNeuro/WASH TUB MACHINE OPERATOR: alert, oriented X 3, no motor [...] % (Auto) (14.0 - 32.0 %) 26.3 [place] % (Auto) (4.8 - 9.0 %) 9.5 H Eos % (Auto) (0.3 - 3.7 %) 5.3 H Baso % (Auto) (0.0 - 2.0 %) 0.8 Neut # (Auto) (2.0 - 7.6 x10 3/uL) 4.19 Lymph # (Auto) (1.0 - 3.8 x10 3/uL) 1.92 [place] # (Auto) (0.1 - 0.8 x10 3/uL) [...] NotesFree Text DxA P Notes:1. 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 CP improved with Morphine and NTG. Continue heparin drip. Add aspirin 81 mg daily. Continue atorvastatin and metoprolol 2. DMII: per Hospitalist 3. HTN: BP stable. Continue BB 4. 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 Continue beta-luís. GDMT as tolerated. Waiting for CABG. at 1453 at 8440 RPT #:[id number] OF REPORTPRProgress krfk7091-14-39Q34:52:00G.XJKH14947976-4996GNBloia able for patient hnqgJNSBIXESXOPQXZ9365-73-29X13:56:50 [facility] 2023-11-29 12:56:00 [id number] G6e+oICUTw18nG1nx4n2aGLKbNntZ 9oRuayj8d4sEmakmDCH6kO5d42J0947-00-64R24:56:[address] [address] PATIENT NAME: CHARAN RESTREPO ADMIT DATE: 11/27/23ACCOUNT NO: [id number] ROOM NO: [facility] AGE: 53 REPORT TYPE: eECHOCARDIOGRAM REPORT SEX: M ADMITTING PHYSICIAN:Papo Mayfield MD ATTENDING PHYSICIAN:Papo Mayfield MD *[address] [address]Hkpvt: [phone]: [phone] Transthoracic Echocardiogram Patient: Royce Restrepotudy Date: 4BP: 120 / 73URN: [id number]: [id number]#: [id number]: 1970Age: 53Gender: MHeight: 69 in / 175.3 cmWeight: 183 lb / 83 kgBMI/BSA: 27 kg/m 2 / 2.03 m 2*Ordering Physician: * Rafi Mayfield MD *Interpreting Physician: * Merlene Rutherford MD*News Operations Manager: * Nikki Patel Indications: LV THROMBUS. Study [...] anterior to the heart.Electronically signed by Merlene Rutherofrd MD11/29/2023 12:56 at 1256 PATIENT NAME: CHARAN RESTREPO :56:0 0G.[id number] for patient fxanMWBZJVOVGPNJOW6052-50-00H09:27:[address] [facility] 2023-11-29 10:46:00 [id number]/SLS rrA222JWAAEOcjpa1vqu84a8MXj2O hfdrRdtIko1flnci1A6jVCzSINs4690-25-44W70:46:00 [facility] Progress NoteREPORT#:[id number] REPORT STATUS: SignedREPORT INITIALIZATION DATE:11/29/23 TIME: 104 PATIENT: CHARAN RESTREPO UNIT #: [id number]#: [id number] [address] [birth year] AGE: 53 SEX: M ATTEND: [...] distentionExtremities: moves all, no calf tenderness, no edemaNeuro/WASH TUB MACHINE OPERATOR: alert, oriented X 3, CNII-XII intact, [...] % (Auto) (14.0 - 32.0 %) 26.3 [place] % (Auto) (4.8 - 9.0 %) 9.5 H Eos % (Auto) (0.3 - 3.7 %) 5.3 H Baso % (Auto) (0.0 - 2.0 %) 0.8 Neut # (Auto) (2.0 - 7.6 x10 3/uL) 4.19 Lymph # (Auto) (1.0 - 3.8 x10 3/uL) 1.92 [place] # (Auto) (0.1 - 0.8 x10 3/uL) [...] in CCU. at 1715 at 1718 RPT #:[id number] OF REPORTPRProgress kgyv4141-92-77G05:46:00G.QDNE07879974-4572HCLpdzm able for patient llrfMMCULAURJMCDFX3184-15-16O85:25:[address] [facility] 2023-11-28 11:48:00 [id number]/pOPM0 kFXg9KVRomh6W1O/g+8CflBE61ck/ wmm2irnVtM/+ZxuhiKXf9jh3bbL3996-21-64Q41:48:00 [facility] CenterCard[facility] Progress NoteREPORT#:[id number] REPORT STATUS: SignedREPORT INITIALIZATION DATE:11/28/23 TIME: 114 PATIENT: CHARAN RESTREPO UNIT #: [id number]#: [id number] [address] [birth year] AGE: 53 SEX: M ATTEND: [...] sounds, no distentionLower extremity: LE assessment: no edemaNeuro/WASH TUB MACHINE OPERATOR: alert, oriented X 3, no motor [...] 11/27 0448 0448 2339 1817 Coagulation PTT (Archuleta) (25.0 - 39.5 Seconds) 52.1 H 47.4 [...] % (Auto) (14.0 - 32.0 %) 20.7 [place] % (Auto) (4.8 - 9.0 %) 7.8 Eos % (Auto) (0.3 - 3.7 %) 3.2 Baso % (Auto) (0.0 - 2.0 %) 0.8 Neut # (Auto) (2.0 - 7.6 x10 3/uL) 5.59 Lymph # (Auto) (1.0 - 3.8 x10 3/uL) 1.73 [place] # (Auto) (0.1 - 0.8 x10 3/uL) [...] pH (5.0 - 7.0) 5.0 Ur Specific [place] (1.005 - 1.030) 1.023 Urine Protein (NEGATIVE) [...] NotesFree Text DxA P Notes:1. CAD: has P[employer] WORKER of mLAD and was referred for CABG [...] Fiona Foster. at 1410 at 1337 RPT #:[id number] OF REPORTPRProgress npmq9593-50-20S93:48:00G.UXWC27138911-0097SJFepgk able for patient sbrqJKYOEXVGGSONMJ0549-11-32U71:10:[address] [facility] 2023-11-28 11:26:00 [id number] Aq28x4Ld1XzfcM+lCqUZun7vpv3QG qgnJTY4ptNsyMfC0Rkqf1gbvq338756-49-94O45:26:00 [facility] CenterHospital[facility] Progress NoteREPORT#:[id number] REPORT STATUS: SignedREPORT INITIALIZATION DATE:11/28/23 TIME: 1125 PATIENT: CHARAN RESTREPO UNIT #: [id number]#: [id number] [address] [birth year] AGE: 53 SEX: M ATTEND: [...] distentionExtremities: moves all, no calf tenderness, no edemaNeuro/WASH TUB MACHINE OPERATOR: alert, oriented X 3, CNII-XII intact, [...] 1205 0448 0448 2339 1817 Coagulation PTT (Archuleta) (25.0 - 39.5 Seconds) 67.5 H 52.1 [...] % (Auto) (14.0 - 32.0 %) 20.7 [place] % (Auto) (4.8 - 9.0 %) 7.8 Eos % (Auto) (0.3 - 3.7 %) 3.2 Baso % (Auto) (0.0 - 2.0 %) 0.8 Neut # (Auto) (2.0 - 7.6 x10 3/uL) 5.59 Lymph # (Auto) (1.0 - 3.8 x10 3/uL) 1.73 [place] # (Auto) (0.1 - 0.8 x10 3/uL) [...] pH (5.0 - 7.0) 5.0 Ur Specific [place] (1.005 - 1.030) 1.023 Urine Protein (NEGATIVE) [...] best of my knowledge. at 1322 RPT #:[id number] OF REPORTPRProgress dpkt5516-18-58R50:26:00G.FPJB20566797-1435WLGxpwh able for patient pgdiCQRBDOATWXTAAD7523-48-68O20:22:[address] [facility] 2023-11-28 09:11:00 K96382960295uL+IbtcG cqs5AP06PDMcr4PPs1E4bG7ILWFXB sjM44X3yWQxhGQalrMts9Jz/F5x7275-19-93N27:11:00 [facility])Cardiothoracic Surgery ProgREPORT#:[id number] REPORT STATUS: SignedREPORT INITIALIZATION DATE:11/28/23 TIME: 910 PATIENT: CHARAN RESTREPO UNIT #: [id number]#: [id number] [address] [birth year] AGE: 53 SEX: M ATTEND: [...] foleyExtremities: dry, moves allMusculoskeletal: full range of motionNeuro/WASH TUB MACHINE OPERATOR: alert, oriented X 3Skin: dry, intact, [...] 11/28 11/28 11/27 11/27 11/27 0448 0448 2332 1817 1041Coagulation PTT (Archuleta) (25.0 - 39.5 Seconds) 52.1 H 47.4 [...] (Auto) (14.0 - 32.0 %) 20.7 17.4 [place] % (Auto) (4.8 - 9.0 %) 7.8 7.1 Eos % (Auto) (0.3 - 3.7 %) 3.2 2.9 Baso % (Auto) (0.0 - 2.0 %) 0.8 0.6 Neut # (Auto) (2.0 - 7.6 x10 3/uL) 5.59 5.68 Lymph # (Auto) (1.0 - 3.8 x10 3/uL) 1.73 1.38 [place] # (Auto) (0.1 - 0.8 x10 3/uL) [...] pH (5.0 - 7.0) 5.0 Ur Specific [place] (1.005 - 1.030) 1.023 Urine Protein (NEGATIVE) [...] was discussed by phone with the ordering clinicianROCOI Baird at 10:23 AM on 11/27/2023.2. Subtle [...] 12 months is optional based on 2017 [facility] criteria. FOR INTERNAL CODING PURPOSES [...] past, hypertension, diabetes, hyperlipidemia who presented to [facility] with complaints of chest pains. He previously underwent left heart catheterization about 1 month ago and was referred for bypass surgery in the outpatient setting however he did not get hisoutpatient appointment yet. The patient reports back to the hospital with complaints of chest pains radiating to the left arm. 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 [...] Consultants: cardiology, cardiovascular surgery at 1025 RPT #:[id number] OF REPORTPRProgress dmyt5030-25-39Z93:11:00G.WUJL56915075-3992QYQktwb able for patient vlcfCTJBSMRSYYIFLZ1007-14-20J43:08:[address] [facility] 2023-11-27 14:04:00 P46670630468S3SBwcp/ x1Eiv33ZLVQgqY25RXdoFjC4f2/hb pfdVMMMFePFVCBoMigAxioawCU76240-98-14N17:04:[address] [address] PATIENT NAME: CHARAN RESTREPO ADMIT DATE: 11/27/23ACCOUNT NO: [id number] ROOM NO: [facility] AGE: 53 REPORT TYPE: eECHOCARDIOGRAM REPORT SEX: M ADMITTING PHYSICIAN:Papo Mayfield MD ATTENDING PHYSICIAN:Papo Mayfield MD *[place], [place] [address]Phone: Efy: [phone] Echocardiogram Patient: Royce Restrepotudy Date: 4BP: 137 / 80URN: [id number]: [id number]#: [id number]: 1970Age: 53Gender: MHeight: 70 in / 177.8 cmWeight: 190 lb / 86.2 kgBMI/BSA: 27.3 kg/m 2 / 2.08 m 2*Ordering Physician: * Dia Baird *Interpreting Physician: * Merlene Rutherford MD*News Operations Manager: * Skyla Dodd Indications: CARDIAC SURGERY PRE-OP. Study data: Transthoracic echocardiogram. Procedure: A transthoracicechocardiogram was performed. Images were obtained using a Earbits cardiacultrasound machine. Image quality was adequate. Intravenous [...] the basal anteroseptal, basal-mid inferior, and midinferoseptal feliep. Grade I diastolic dysfunction.Right ventricle: The cavity [...] at 1404 PATIENT NAME: CHARAN RESTREPO :04:0 0G.[id number] for patient ombnJFJVJMNZRDGQLX2754-21-89W80:04:[address] [facility] 2023-11-27 10:44:00 [id number] dO8JVTu1zAjr3BMV8A3vJVMICrob0 MhCOmPgKQ6LwCU74EDooxmFn31Y9366-36-10F20:44:00 [facility] CenterAd[facility] General ConsultationREPORT#:[id number] REPORT STATUS: SignedREPORT INITIALIZATION DATE:11/27/23 TIME: 1043 PATIENT: CHARAN RESTREPO UNIT #: [id number]#: [id number] [address] [birth year] AGE: 53 SEX: M ATTEND: Papo Mayfield MDADM AUTHOR: Marilyn Mayfield MDREPT SERVICE DT/TIME: 11/27/23 1044* ALL edits or amendments must be made on the electronic/computer document * History of Present IllnessReason for consult:medical management Free Text HPI NotesFree Text HPI Notes: 53 years old male with PMH of CAD with 6-7 stents , HTN, DM, [facility] he complaint of cp on and off for a month. pain is like stab pain . it is with sob and dizziness . it radiate the left arm . he hadcath last month . he was referred for CABG as out patient . he had cp yesterday and went back to the hospital in [facility]. 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 Power Review of SystemsConstitutional:Denies: fatigue, fever, generalized weakness, [...] soft, non-tender, no reboundExtremities: moves all, no edemaNeuro/WASH TUB MACHINE OPERATOR: alert, oriented X 3, CNII-XII grossly intact, normal speech, no motordeficits, no sensory deficitsSkin: dry, intact ResultsFindings/Data:Laboratory Tests: 11/27 11/27 11/27 11/27 1120 1046 1041 1041 Chemistry POC Glucose (70 - 110 MG/DL) 248 H Troponin I High Sens (0 - 54 ng/L) 10 Coagulation INR (0.8 - 1.2) 1.1 PTT (Archuleta) (25.0 - 39.5 Seconds) 34.3 PT Patient/Control [...] % (Auto) (14.0 - 32.0 %) 17.4 [place] % (Auto) (4.8 - 9.0 %) 7.1 Eos % (Auto) (0.3 - 3.7 %) 2.9 Baso % (Auto) (0.0 - 2.0 %) 0.6 Neut # (Auto) (2.0 - 7.6 x10 3/uL) 5.68 Lymph # (Auto) (1.0 - 3.8 x10 3/uL) 1.38 [place] # (Auto) (0.1 - 0.8 x10 3/uL) [...] % (Auto) (14.0 - 32.0 %) 16.0 [place] % (Auto) (4.8 - 9.0 %) 7.3 Eos % (Auto) (0.3 - 3.7 %) 3.3 Baso % (Auto) (0.0 - 2.0 %) 0.9 Neut # (Auto) (2.0 - 7.6 x10 3/uL) 6.36 Lymph # (Auto) (1.0 - 3.8 x10 3/uL) 1.42 [place] # (Auto) (0.1 - 0.8 x10 3/uL) [...] 12 months is optional based on 2017 [facility] criteria. FOR INTERNAL CODING PURPOSES [...] best of my knowledge. at 1739 RPT #:[id number] OF REPORTXJHhunqsmseocs2832-62-69U50:44:00G.PDOC2 7844542-7891KYAwkbcajxo for patient bzyoTUMEACWBMSRTES5223-30-49N22:39:[address] [facility] 2023-11-27 08:49:00 [id number]/ET eiItzVMFCflso5ilGWeL2QyzZg6TD aMcr+Vs8A6jZkI2egk5x/yNG7ky7491-36-81R20:49:00 [facility] CenterCardiology ConsultationREPORT#:[id number] REPORT STATUS: SignedREPORT INITIALIZATION DATE:11/27/23 TIME: 08 PATIENT: CHARAN RESTREPO UNIT #: [id number]#: [id number] [address] [birth year] AGE: 53 SEX: M ATTEND: Papo Mayfield MDADM AUTHOR: Merlene Rutherford MDREPT SERVICE DT/TIME: 11/27/23 0849* ALL edits or amendments must be made on the electronic/computer document * History of Present Illness HPIRequesting Clinician: Dr. Judd for consult:Roberta complaint:CPPCP:PCP: Jesusita Osuna MD HPI:This is a 53-year-old male with PMHx of CAD status post previous PCI in the past, hypertension, diabetes, hyperlipidemia who presented to [facility] with complaints of chest pains.He previously [...] auscultation, no distressLower extremity: LE assessment: no edemaNeuro/WASH TUB MACHINE OPERATOR: alert, oriented X 3, no motor [...] Coagulation INR (0.8 - 1.2) 1.1 PTT (Archuleta) (25.0 - 39.5 Seconds) 32.7 PT Patient/Control [...] % (Auto) (14.0 - 32.0 %) 16.0 [place] % (Auto) (4.8 - 9.0 %) 7.3 Eos % (Auto) (0.3 - 3.7 %) 3.3 Baso % (Auto) (0.0 - 2.0 %) 0.9 Neut # (Auto) (2.0 - 7.6 x10 3/uL) 6.36 Lymph # (Auto) (1.0 - 3.8 x10 3/uL) 1.42 [place] # (Auto) (0.1 - 0.8 x10 3/uL) [...] 12 months is optional based on 2017 [facility] criteria. FOR INTERNAL CODING PURPOSES [...] NotesFree Text DxA P Notes:1. 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 CP improved with Morphine and NTG, will transfer to CCU, if persist will do Nitro gtt. 2. DMII: per Hospitalist 3. HTN: resume home meds. 4. CHF: LVEF low, apix aneurysmal, no Thrombus with Contrasted ECHO at 0865 RPT #:[id number] OF REPORTVJXoanxdwgqofm8336-22-92S48:49:00G.PDOC2 2707613-0000TKQrgteixcs for patient siloSERPTJSOCJYCBN4127-08-99Y50:46:[address] [facility] 2023-11-27 08:11:00 [id number]/TmXmEgW cdd9LVFCYvziWWjUkv96KswD+sCc9 UUQ87D+HW9LYkKSxEBwoYBtM1np3819-97-79U68:11:00 [facility] ([facility])History Physical - AdultREPORT#:[id number] REPORT STATUS: SignedREPORT INITIALIZATION DATE:11/27/23 TIME: 810 PATIENT: CHARAN RESTREPO UNIT #: [id number]#: [id number] [address] [birth year] AGE: 53 SEX: M ATTEND: Papo Mayfield [facility] AUTHOR: Dia Baird PhysicREPT SERVICE DT/TIME: 11/27/23 0811* ALL edits or amendments must be made on the electronic/computer document * Dia Baird 11/27/23 0811:History of Present Illness HPIChief complaint:Chest pains, coronary artery diseaseHPI:This is a 53-year-old gentleman with past medical history of coronary artery disease status post previous PCI in the past, hypertension, diabetes, hyperlipidemia who presented to [facility] with complaints of chest pains. He previously underwent left heart catheterization about 1 month ago and was referred for bypass surgery in the outpatient setting however he did not get hisoutpatient appointment yet. The patient reports back to the hospital with complaints of chest pains radiating to the left arm. 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 He previously underwent left heart catheterization about 1 month ago and was referred for bypass surgery in the outpatient setting however he did not get hisoutpatient appointment yet. The patient reports back to the hospital with complaints of chest pains radiating to the left arm. 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 [...] and complications. at 1629 at 1112 [facility] #:[id number] OF REPORTHPHistory and physical pvczzktcmqb8500-24-27J26:11:00G.QYOE02558420-5211 AVAvailable for patient caqjYKHRYTEAJLFDJS3183-17-46K86:30:[address] [facility] 2023-11-27 06:38:00 [id number] AbBLffhJFxM0aHnB2Z70nToEIbnim x5vBRGbNiz1JF87Min4SUl9CFYu4382-99-33S27:38:27748 0-[address] [address] PATIENT NAME: CHARAN RESTREPO ADMIT DATE: 11/27/23ACCOUNT NO: [id number] ROOM NO: 3302 AGE: 53 REPORT TYPE: eELECTROCARDIOGRAM REPORT SEX: M ADMITTING PHYSICIAN:Papo Mayfield MD ATTENDING PHYSICIAN:Papo Mayfield MD Order:[id number] Reason : PREOP Test Date/Time Stamp:SunNov 27 [...] MD at 1323 PATIENT NAME: CHARAN RESTREPO .[id number] AVAvailable for patient wkgdKQIXWFDSYNVRAG1986-00-51R37:24:[address] [facility] 2023-03-20 15:29:00 [id number] jbwgcA4kbAhndd5vewcEAXB3gGPGl KrEbGRMZtNKrGrfc+6sfMybLwYL6174-10-90N71:29:00 [facility] ([facility])Cardiology Progress NoteREPORT#:[id number] REPORT STATUS: SignedDATE:03/20/23 TIME: 1529 PATIENT: CHARAN RESTREPO UNIT #: [id number]#: [id number] [facility] AGE: 52 SEX: M ATTEND: Montez Jernigan [facility] AUTHOR: Paco James MD * ALL [...] months for possible AICD at 1532 RPT #:[id number] OF REPORTPRProgress xiby0357-91-31N86:29:00Z.JFPX54063132-9070XZKukrp able for patient bqkeHQLEVBLHYQSXPU8689-62-38W21:32:26 [facility] 2023-03-20 08:44:00 [id number]/Ts2M jWztiFogIJ5H5kQiXXxExf+ienKXM scYU/SLCqvgA2m6wm9lOYgdSEae6590-00-83G19:44:31603 0-0054 [place] [address] PATIENT NAME: CHARAN RESTREPO ADMIT DATE: 03/18/23ACCOUNT NO: [id number] ROOM NO: Z.503 AGE: 52 REPORT TYPE: ELECTROCARDIOGRAM SEX: M ADMITTING PHYSICIAN:Montez Jernigan MD ATTENDING PHYSICIAN:Montez Jernigan MD Order:[id number] Reason : CAD/[place] Test Date/Time Stamp:SunMar 20 2023 08:44:19Blood Pressure [...] SCHILLING at 1750 PATIENT NAME: CHARAN RESTREPO .[id number] AVAvailable for patient dsvaQFWIPUKDYIRYDS1152-00-50F41:51:36 [facility] 2023-03-20 08:41:00 [id number] DeBpNp6nxzuKHB4v7OHSU3RoWfb73 J0klWybJxMHMsF2hH0LV7UZJYe53461-71-20W31:41:[address] [facility] HospitalHospitalist Discharge SummaryREPORT#:[id number] REPORT STATUS: SignedDATE:03/20/23 TIME: 840 PATIENT: CHARAN RESTREPO UNIT #: [id number]#: [id number] [facility] [birth year] AGE: 52 SEX: M ATTEND: Montez Jernigan [facility] AUTHOR: Davi Davison MD, MPH R2 [...] [facility]. On [facility] he had chest pain/dizziness, brief syncopal episode. He was brought to [facility] and was found to be in [facility] where he was given amiodarone [...] of motionMusculoskeletal: normal inspection, painless range of motionNeuro/WASH TUB MACHINE OPERATOR: alert, oriented X 3, CNII-XII intact, normal speechSkin: dry, normal temperaturePsychiatry: normal affect, normal judgment/insight ResultsFindings/Data:Laboratory Tests: 03/20 03/20 03/20 03/19 03/19 0631 0624 0412 [id number] Chemistry Sodium (137 - 145 MMOL/L) 134 [...] to: Home/Self CareAdditional Discharge Routines: PCP Follow-Up, Nut Culler Follow-UpDiet: Resume Home Diet/FeedsActivity: Resume Normal Activity [...] He has asked for 1 week of [place], stating that he missed his pain management [...] as instructed. at 1016 at 1638 RPT #:[id number] OF REPORTDSDischarge syxjrsf4764-73-78V29:41:00Z.[id number] ailable for patient dlalMVDNYUNMLACLWD0854-64-46T81:17:22 [facility] 2023-03-19 14:01:00 [id number] tGCaEZCec8o0y3Oe7Db/IAJeriZRIaylin fgQOq5J+0AS0RXhw4E1hvogeoLi7213-02-83Y57:01:00THI S REPORT HAS BEEN APPENDED [id number] [address] PATIENT NAME: CHARAN RESTREPO ADMIT DATE: 03/18/23ACCOUNT NO: [id number] ROOM NO: Z.503 AGE: 52 REPORT TYPE: ECHOCARDIOGRAM SEX: M ADMITTING PHYSICIAN:Montez Jernigan MD ATTENDING PHYSICIAN:Montez Jernigan MD *[facility]*[address] [place], [place] [id number] Transthoracic Echocardiogram Patient: Royce Restrepotudy Date: 03/19/2023 BP: 134 / 73 Location: [facility]: [id number] : 1970 Age: 52 Height: 70 in / 177.8 cmAccession#: [id number] Gender: M Weight: 199.6 lb / 90.7 kgBMI/BSA: 28.7 kg/m 2 / 2.14 m 2 *Ordering Physician: * Sabino Schilling MD *Interpreting Physician: * Paco James MD*News Operations Manager: * Gabby Crockett Indications: CAD / [place]. Study data: Transthoracic echocardiogram. Procedure: Transthoracicechocardiography was performed. Images were obtained using a Earbits cardiacultrasound machine. Image quality was adequate. M-mode, [...] 1401 SECTION 2 ADDENDUM 1: 03/20/23 0752 [facility].C[facility] *[facility]*[address] [place], [place] [address]Rdkqp Transthoracic Echocardiogram (Report amended 3268-20-95K30:52:29) Patient: Royce Restrepotudy Date: 03/19/2023 BP: 134 / 73 Location: [facility]: [id number] : 1970 Age: 52 Height: 70 in / 177.8 cmAccession#: [id number] Gender: M Weight: 199.6 lb / 90.7 kgBMI/BSA: 28.7 kg/m 2 / 2.14 m 2 *Ordering Physician: * Sabino Schilling MD *Interpreting Physician: * Sabino Schilling MD*News Operations Manager: * Gabby Crockett Indications: CAD / KS. Study data: Transthoracic echocardiogram. Procedure: Transthoracicechocardiography was performed. Images were obtained using a Earbits cardiacultrasound machine. Image quality was adequate. M-mode, [...] apex.Recommendations: continue hf mgmt. Amended Sabino Schilling MT03/20/2023 07:52 PATIENT NAME: CHARAN RESTREPO :01:0 0Z.[id number] for patient oetiBJRSVYXUKDFWDB8995-38-46K74:02:20 [facility] 2023-03-19 12:44:00 [id number] pX695p0BwBXUuBSeWuzV/1I+jl9DR HhXB4Yfi8vIucDXztVD/vSKdZw54252-10-75M15:44:[address] [facility] HospitalCardiology Progress NoteREPORT#:[id number] REPORT STATUS: SignedDATE:03/19/23 TIME: 1244 PATIENT: CHARAN RESTREPO UNIT #: [id number]#: [id number] [facility] AGE: 52 SEX: M ATTEND: Montez Jernigan [facility] AUTHOR: Paco James MD * ALL [...] separate fromany billable procedures. at 1248 RPT #:[id number] OF REPORTPRProgress hylf0830-50-97X88:44:00Z.ONVG96689768-2557XDWmxgm able for patient ipojTJPYDKZHJKZEWP3337-02-92F85:48:38 [facility] 2023-03-19 09:27:00 [id number] 9FuN3/c/VSwlf7J45wWJEj9ww5FIh KhfIl8NU/cAXBrRQ0hsaP7oNvpW6128-28-53O40:27:00 [facility] ([facility])Critical Care Progress NoteREPORT#:[id number] REPORT STATUS: SignedDATE:03/19/23 TIME: 926 PATIENT: CHARAN RESTREPO UNIT #: [id number]#: [id number] [facility] 69 AGE: 52 SEX: M ATTEND: Montez Jernigan [facility] AUTHOR: Suzette Wang MANAGER WEB APPLICATION * ALL edits or amendments must be [...] no hematoma Musculoskeletal normal inspection, no muscle spasmNeuro/WASH TUB MACHINE OPERATOR: alert, oriented X 3, no sensory deficitsPsychiatry: normal affect ResultsFindings/data:Laboratory Tests 03/19 03/19 03/18 03/18 03/18 0326 0325 4257 3 2022 Chemistry Sodium (137 - 145 [...] (Auto) (14 - 44 %) 8.0 L [place] % (Auto) (4 - 13 %) 5.3 Eos % (Auto) (0 - 6 %) 0.8 Baso % (Auto) (0 - 2 %) 0.5 Neut # (Auto) (2.0 - 7.6 K/mm3) 13.48 H 11.29 H Lymph # (Auto) (1.0 - 3.8 K/mm3) 1.28 2.18 [place] # (Auto) (0.1 - 0.8 K/mm3) 0.84 [...] pH (5.0 - 9.0) 5.0 Ur Specific [place] (1.003 - 1.030) 1.020 Urine Protein (NEGATIVE [...] multiple stents, systolic heart failure transferred from [facility] with STEMI. STEMI: Coronary Artery Disease [...] arrythmias DiabetesUncontrolled. Takes metformin and jardiance. 9.3 T6XIbjwkaw 200s, start lantus. Patietn educated on diabetes and need for insulin atthis pointWill consult correctional agency director for DM education Tobacco AbuseSmokes 2 PPDCounseled [...] if needed at 1004 at 1306 RPT #:[id number] OF REPORTPRProgress xmfx8147-51-55B14:27:00Z.BNME81847529-2042WFWtjfk able for patient ixytPIPVMUTPKUCJRL3067-09-83S26:04:53 [facility] 2023-03-19 07:39:00 [id number] sacto2uTMPHRwJBQZQ646RFtHIHCY SQIjitbCbEkNvzssu/BOlrwD0X22816-25-42P83:39:[address] [facility] HospitalHospitalist Progress NoteREPORT#:[id number] REPORT STATUS: SignedDATE:03/19/23 TIME: 738 PATIENT: CHARAN RESTREPO UNIT #: [id number]#: [id number] [facility] CenterZ47-XHUE: 69 AGE: 52 SEX: M ATTEND: Montez Jernigan [facility] AUTHOR: Davi Davison MD, MPH R2 * ALL edits or amendments must be made on the electronic/computer document * Davi Davison 03/19/23 0739:SubjectiveChief complaint:CHEST PAINHPI:52 y/o M PMH DM2, HLD, CAD s/p 2 stents, HFpEF borderline, tobacco use, arthritis presented to [facility] for chest pain.NAEO. No arrhythmias [...] of motionMusculoskeletal: normal inspection, painless range of motionNeuro/WASH TUB MACHINE OPERATOR: alert, oriented X 3, CNII-XII intact, [...] s/p 2 stents, HFpEF borderline presented to [facility] chest pain. STEMI (ST elevation myocardial infarction) : Hypertension : HLD : CAD : HF : Hx stent03/18 AM - chest pain/dizziness, found to be in vtach at [facility]. Placed on amiodarone drip, given sync cardioversion which resolved issue. Transferred here per Dr. Schilling, found to have V1/[facility]2 [facility]x stent placed. EF 20%.03/19 - titrating off nitro drip, restarting PO rx per cardiologyPlan:Cardio management per Dr. Mock: Nitro drip - titrate off today Restart B luís? - per cardiology ASA 81, ticagrelor 90 BID Atorvastatin 40 Morphine 4 IV q6 PRN - per Dr. Alvarez Home rx (deferred): Entresto 24-26 BID Bisoprolol/HCTZ 02/24.25 YF1Suhoksc A1c, is on jardiance unknown dose at homeSupposedly took metformin which "didn't work" in the xfyxR0y 9.3MDSS from LDSS today Tobacco hx : Plntglyf58+ pack-year smoking hxMild expiratory wheezing, possible COPD [...] nitroglycerine drip still which is being weaned. Supervisor Data Processing and cardiology are on board and weappreciate their recommendations and care. at 0743 at 1246 [facility] #:[id number] OF REPORTPRProgress lrkm8076-64-45A30:39:00Z.QZFA75401256-5078ZQAowub able for patient zlouGUOHYKWFCOUAJN6921-65-57R37:44:10 [facility] 2023-03-19 05:44:00 [id number] jJB80y3jFGH1XeLqOHUFC6zMZdWNm nGeoyX6tKSnIStuGV7nbWemciZ40880-97-26H24:44:68695 9-0005 [place] [address] PATIENT NAME: CHARAN RESTREPO ADMIT DATE: 03/18/23ACCOUNT NO: [id number] ROOM NO: Z.I13 AGE: 52 REPORT TYPE: ELECTROCARDIOGRAM SEX: M ADMITTING PHYSICIAN:Montez Jernigan MD ATTENDING PHYSICIAN:Montez Jernigan MD Order:[id number] Reason : CAD/KS Test Date/Time Stamp:SunMar 19 2023 05:44:06Blood Pressure [...] SCHILLING at 1039 PATIENT NAME: CHARAN RESTREPO .[id number] AVAvailable for patient asahJLPOIZTWJBJUVU4388-93-66B49:39:45 [facility] 2023-03-19 05:44:00 [id number] u9FrBzlspHUSeqmVyjxCYQg+dWLXb AU38zJLYqx1GXRcf0qbM6OlxzzE0045-94-90Z36:44:02407 0-0053 [place] [address] PATIENT NAME: CHARAN RESTREPO ADMIT DATE: 03/18/23ACCOUNT NO: [id number] ROOM NO: Z.503 AGE: 52 REPORT TYPE: ELECTROCARDIOGRAM SEX: M ADMITTING PHYSICIAN:Montez Jernigan MD ATTENDING PHYSICIAN:Montez Jernigan MD Order:[id number] Reason : CAD/KS Test Date/Time Stamp:SunMar 19 2023 05:44:06Blood Pressure [...] SCHILLING at 1750 PATIENT NAME: CHARAN RESTREPO .[id number] AVAvailable for patient dyqqRXCEUKSHBPEXQF0324-75-25M08:50:56 [facility] 2023-03-18 17:45:00 [id number]+XBV/y Cr4sTaq2S9+1JlY3WpIWjuSVtg4dU 4Iqzz9ht2vRYKy51EB4UqrcwUso6708-71-53T32:45:00 [facility] ([facility])Critical Care Consult NoteREPORT#:[id number] REPORT STATUS: SignedDATE:03/18/23 TIME: 1744 PATIENT: CHARAN RESTREPO UNIT #: [id number]#: [id number] [facility] CenterZ34-GIQW: 69 AGE: 52 SEX: M ATTEND: Jesusita Osuna AUTHOR: Suzette Wang MANAGER WEB APPLICATION * ALL edits or amendments must be [...] EKG showed STEMI. Transferred emergently to our lab clerk via life flight. Dr James was able [...] encouraged to have debrillator placed by his accounting professor. Unable to recall names of home medications. 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 STEMI: Coronary Artery Disease Presented with chest pain in ventricular tachycardia s/p cardioversion. Repeat EKG showed STEMIArrived via life flight straight to lab clerk. Dr James placed 4 stents to LADAspirin, Statin, Brilinta. Counselor/Art Therapist would like to start beta luís tomorrowNitroglycerin [...] the patient. at 1808 at 1834 RPT #:[id number] OF REPORTLKFvlgusqhawfi2898-84-08X95:45:00Z.PDOC2 [id number] for patient uvjaZJEXGDESWSDTIR3253-77-11N34:08:44 [facility] 2023-03-18 17:40:00 [id number] 9SNUjUWOPSBPe6MhbteG8cunj4Ry8 ye6uGmaDNwNtl2I6BVcYo2qajtn0877-32-28B63:40:61817 8-[address] [address] PATIENT NAME: CHARAN RESTREPO ADMIT DATE: 03/18/23ACCOUNT NO: [id number] [facility] AGE: 52 REPORT TYPE: ELECTROCARDIOGRAM SEX: M ADMITTING PHYSICIAN:Jesusita Osuna MD ATTENDING PHYSICIAN:Jesusita Osuna MD Order:[id number] Reason : VT Test Date/Time Stamp:SunMar 18 [...] SCHILLING at 2002 PATIENT NAME: CHARAN RESTREPO .[id number] AVAvailable for patient kvlpOHJUONQTCISWZZ6279-76-89O07:03:30 [facility] 2023-03-18 17:40:00 [id number] KnHLy+c8nZxflQOwCk7juJ529UnXo aXYk9yIMw/fQTTC8NNgYTrGRhqV2444-21-95J51:40:16449 0-[address] [address] PATIENT NAME: CHARAN RESTREPO ADMIT DATE: 03/18/23ACCOUNT NO: [id number] ROOM NO: Melvina503 AGE: 52 REPORT TYPE: ELECTROCARDIOGRAM SEX: M ADMITTING PHYSICIAN:Montez Jernigan MD ATTENDING PHYSICIAN:Montez Jernigan MD Order:[id number] Reason : VT Test Date/Time Stamp:SunMar 18 [...] SCHILLING at 1750 PATIENT NAME: CHARAN RESTREPO .[id number] AVAvailable for patient xzxvTVYGUNUZZMJAXH5461-88-98C85:50:36 [facility] 2023-03-18 17:25:00 [id number] gkMWsRD0L7smscU/+zNS4kmvLqEQr 1KXZvTBUeoQvl3YUPT2Ke3zL9eT0865-49-78R97:25:00 [facility] Hospitalist History PhysicalREPORT#:[id number] REPORT STATUS: SignedDATE:03/18/23 TIME: 1724 PATIENT: CHARAN RESTREPO UNIT #: [id number]#: [id number] ROOM/BED: [facility]-ADOB: [birth year] AGE: 52 SEX: M ATTEND: Montez Jernigan MDADM AUTHOR: Davi Davison MD, MPH R2 * ALL edits or amendments must be made on the electronic/computer document * Davi Davison 03/18/23 1725:History of Present Illness HPIChief complaint:CHEST PAINPCP:PCP: Jesusita Osuna MD HPI:52 y/o M PMH DM2, HLD, CAD s/p 2 stents, HFpEF borderline, tobacco use, arthritis presented to [facility] for chest pain.Started feeling lightheaded, [...] STEMI. He was emergently taken for [facility] w/ Dr. 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 STEMI (ST elevation myocardial infarction) : Hypertension : HLD : CAD : HF : Hx stent03/18 AM - chest pain/dizziness, found to be in vtach at [facility]. Placed on amiodarone drip, given sync cardioversion which resolved issue. Transferred here per Dr. Schilling, found to have V1[facility]x stent placed. EF 20%.Per Dr. James - continue nitro drip. Defer restart home BP rx Given tirofiban in [facility], ASA, ticagrelor Avoid heparin products at this timePlan:Cardio management per Dr. Mock: Nitro drip ASA 81, ticagrelor 90 BID Atorvastatin 40 Morphine 2 IV q6 - consider d/c after 03/20 or Home rx (deferred): Entresto 24-26 BID Bisoprolol/HCTZ 02/24.25 CK6Wixflkn A1c, is on jardiance unknown dose at dmxdI2v pending, LDSS Tobacco hx : Mqnwmbgs33+ pack-year smoking hxMild expiratory wheezing, possible COPD [...] knowledge. Jesusita Osuna 03/18/23 1851:Attestations Teaching Physician Zcjntpemqet7hm visit w/ resident:I was present with the resident during the history and exam. I discussed the case with the resident and . . . agree with the findings and plan as documented in the resident's note. agree with the findings and plan as documented in the resident's note EXCEPT: at 6576 at 6497 RPT #:[id number] OF REPORTHPHistory and physical gmiaaoplwvj4254-71-44T32:25:00Z.RQJA94320523-9203 AVAvailable for patient rmesWVMUIVHHLEXTLA7550-58-50N68:20:05 [facility] 2023-03-18 17:24:00 [id number]/zY8 xWzrYQf6IUlTLCoFjL15Olcdwr8R9 BSk2vimkajdXqBAwIOsaKEBbCiQ1028-09-23B23:24:[address] [address] PATIENT NAME: CHARAN RESTREPO ADMIT DATE: 03/18/23ACCOUNT NO: [id number] ROOM NO: Z.503 AGE: 52 REPORT TYPE: [...] of the LAD, who [place] [facility] [place]. He then had VT had to be shocked and had ST elevations in V1, V2, V3. He was life-flighted to [facility] where we emergently brought into the lab clerk. SEDATION USED: Moderate sedation. PANTOGRAPH ENGRAVER: Paco James MD PROCEDURAL DETAILS: The patient was brought to the lab clerk in an emergent fashion. He was draped in typical sterile fashion. I obtained right femoral arterial access under ultrasound guidance and inserted a 6-[place] sheath using amicropuncture kit. At this point, [...] heparin intra-arterial. I took a EBU 4 6-[place] guide up to the aortic root over [...] I then selected a 2.75 x 15 Troy Arroyo stent and positioned in the distal LAD overlapping with the old stents and deployed it to PATIENT NAME: CHARAN RESTREPO nominal pressure. I then pulled the stent delivery balloon back and expanded it. I then reinflated the balloon to high pressure. I then removed that stent delivery system and brought up to 3.5 x 22 mm Arroyo stent and positioned in the proximal LAD [...] positioned a 2.75 x 12 mm Valerio Arroyo stent in the mid LAD and deployed [...] I then positioned a2.25 x 15 mm Troy Arroyo stent distally and deployed it to slightly [...] 12 mm and 2.25 x 15 mm Arroyo stent, there was 0% stenosis in ARELY 3 flow and no evidence of wire perforation or guide dissection. ESTIMATED BLOOD LOSS: There was 20 mL of blood loss. PATIENT NAME: CHARAN RESTREPO COMPLICATIONS: No complications. RECOMMENDATIONS: Recommend 4-hour of bed rest. Continue aspirin and ppwxlpmesx86 mg b.i.d. Wean nitro drip tomorrow. Would hold off on diuretics until tomorrow unless the patient starts shortness of breath, in which case I would give IV Lasix and hold off on beta luís until tomorrow. Dictated By: Paco James MD Date Dictated: 03/18/2023 17:24:48Date Transcribed: 03/18/2023 22:18:00SYED/Yadira #: [id number] ID: [id number] by Paco James MD On 03/20/2023 04:12:22 PM at 0412 PATIENT NAME: CHARAN RESTREPO wuqi5185-95-63D84:18:00Z.ERK68743946-6644KCMqpjcd ble for patient codgXDGEMFKOPDZNVR0587-33-73K17:13:05 [facility] 2023-03-18 15:02:00 [id number] TsEF4ckVZX2yzVtx94Fy3JH3fiJf8 VKPZ53Q09qyomSi7Z6eXRnkkGPv1472-09-94Y95:02:00 [facility] ([facility]ENTERCardiology ConsultationREPORT#:[id number] REPORT STATUS: SignedDATE:03/18/23 TIME: 1502 PATIENT: CHARAN RESTREPO UNIT #: [id number]#: [id number] [facility] AGE: 52 SEX: M ATTEND: Jesusita [...] separate fromany billable procedures. at 1810 RPT #:[id number] OF REPORTZLDlubmmgaqbys5630-09-26V35:02:00Z.PDOC2 [id number] for patient uqnwYEFXKQYOUIWJCL7884-64-55K06:03:47 [facility]
[2024-02-25 06:28] LABS: Absolute Basophils 0.1 K/uL (0-0.5); Absolute Eosinophils 0.3 K/uL (0-0.5); Absolute Lymphocytes (CBC) 2.1 K/uL (0.7-4.9); Absolute Monocytes 0.7 K/uL (0.1-1.3); Absolute Neutrophil 4.6 K/uL (1.8-8.0); Basophils % 1.1 % (0-1.3); Eosinophils % 3.9 % (0-4.4); Hematocrit 42.4 % (39.6-49.0); Hemoglobin 15.1 g/dL (13.6-17.9); Lymphocytes % 26.5 % (15.3-44.8); MCH 30.4 pg (27.0-35.0); MCHC 35.6 g/dL (32.0-36.0); MCV 85.4 fL (80-100); MPV 7.9 fL (7.6-11.3); Monocytes % 9.5 % (3.3-12.3); Nucleated Red Blood Cells % 0.2 % (0-0); Platelets 230 thou/uL (152-406); RBC Red Blood Cell Count 4.97 M/uL (4.33-5.43); Red Cell Distribution Width 14.7 % (12.1-15.2)
[2024-02-25 06:29] LABS: Protime INR 1.57
[2024-02-25 06:40] LABS: Anion Gap 6.5 mEq/L (5.0-15.0); Potassium 3.5 mEq/L (3.5-5.1)
[2024-02-25] MEDS ORDERED: MORPHINE 4 MG/ML SYR ONE (06:46)
--- NOTE | 2024-02-25 07:40 | RAD REPORT ---
EXAM DESCRIPTION: [facility] Single View02/25/2024 7:16 am CLINICAL HISTORY: Chest pain COMPARISON: February 17, 2024 FINDINGS: Artifact overlies the chest. The lungs appear clear of acute infiltrate. The heart is mildly enlarged Due to technical issues the exam could not be read into now IMPRESSION: No acute abnormalities displayed
--- NOTE | 2024-02-25 09:03 | ER ---
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 Coronavirus screen: Client denies travel out of the [place] in the last 14 days. At this time, the client does not indicate any symptoms associated with coronavirus-19. Ebola Screen: No symptoms or risks identified at this time. Initial Sepsis Screen: Does the patient meet any 2 criteria? No. Patient's initial sepsis screen is negative. Does the patient have a suspected source of infection? No. Patient's initial sepsis screen is negative. Risk Assessment: Do you want to hurt yourself or someone else? Patient reports no desire to harm self or others. Onset of symptoms was February 25, 2024. 05:49 Method Of Arrival: Ambulatory lg3 05:49 Acuity: MARTY 3 lg3 Triage Assessment: 05:55 General: Appears in no apparent distress. comfortable, Behavior is calm, cooperative. lg3 Pain: Complains of pain in chest Pain radiates to back. EENT: No deficits noted. No signs and/or symptoms were reported regarding the EENT system. Neuro: No deficits noted. Lutz Agitation-Sedation Scale (RASS): 0 - Alert and Calm Level of Consciousness is awake, alert, obeys commands, Oriented to person, place, time, situation. Cardiovascular: Reports chest pain, lightheadedness, shortness of breath, Heart tones S1 S2 present Capillary refill < 3 seconds Clubbing of nail beds is absent JVD is absent Patient's skin is warm and dry. external defibrillator noted . Rhythm is sinus rhythm. Respiratory: No deficits noted. Reports shortness of breath at rest Airway is patent Trachea midline Respiratory effort is even, unlabored, Respiratory pattern is regular, symmetrical, Breath sounds are clear bilaterally. GI: No deficits noted. No signs and/or symptoms were reported involving the gastrointestinal system. Abdomen is round non-distended, obese. : No deficits noted. No signs and/or symptoms were reported regarding the genitourinary system. Derm: No deficits noted. No signs and/or symptoms reported regarding the dermatologic system. Skin is intact, is healthy with good turgor, Skin is dry, Skin is normal, Skin temperature is warm. Musculoskeletal: No deficits noted. No signs and/or symptoms reported regarding the musculoskeletal system. Circulation, motion, and sensation intact. Range of motion: intact in all extremities. Historical: - Allergies: 05:55 No Known Allergies; lg3 - Home Meds: 05:55 isosorbide mononitrate 30 mg Oral Tablet once [Active]; clopidogrel 75 mg oral tablet lg3 daily [Active]; amiodarone 200 mg Oral tablet 2 times per day [Active]; spironolactone 25 mg Oral tablet daily [Active]; atorvastatin 40 mg Oral tablet once [Active]; warfarin 5 mg oral tablet daily [Active]; - PMHx: 05:55 blood clot to heart; diabetes mellitus; external defibrillator vest; Hyperlipidemia; lg3 Hypertension; Myocardial infarction; - PSHx: 05:55 6 heart stents; bone graft; Cholecystectomy; knee; left leg; Right femur; lg3 - Immunization history:: Adult Immunizations up to date, Client reports having NOT received the Covid vaccine. Pneumococcal vaccine is not up to date, Flu vaccine is not up to date. - Infectious Disease History:: Denies. - Social history:: Smoking status: Patient reports the use of cigarette tobacco products, smokes two packs cigarettes per day. Patient uses alcohol, only on a social basis. Patient/guardian denies using street drugs. - Family history:: not pertinent. - Hospitalizations: : The patient was recently seen at [facility]. Screenin:02 [facility] ED Fall Risk Assessment (Adult) History of falling in the last 3 months, lg3 including since admission No falls in past 3 months (0 pts) Confusion or Disorientation No (0 pts) Intoxicated or Sedated No (0 pts) Impaired Gait No (0 pts) Mobility Assist Device Used No (0 pt) Altered Elimination No (0 pt) Score/Fall Risk Level 0 - 2 = Low Risk Oriented to surroundings, Maintained a safe environment, Educated pt \T\ family on fall prevention, incl call for assistance when getting out of bed, Assessed \T\ reinforced patient's understanding of fall precautions. Abuse screen: Denies threats or abuse. Denies injuries from another. Nutritional screening: No deficits noted. Tuberculosis screening: No symptoms or risk factors identified. Assessment: 06:02 General: see triage assessment. lg3 07:00 General: Appears in no apparent distress. comfortable, Behavior is calm, cooperative. rs5 Pain: Denies pain. Neuro: Level of Consciousness is awake, alert, obeys commands, Oriented to person, place, time, situation. Cardiovascular: Patient's skin is warm and dry. Rhythm is regular. Respiratory: Airway is patent Respiratory effort is even, unlabored, Respiratory pattern is regular, symmetrical. GI: Abdomen is round non-distended, Abd is soft and non tender X 4 quads. : No signs and/or symptoms were reported regarding the genitourinary system. EENT: No signs and/or symptoms were reported regarding the EENT system. Derm: Skin is intact, Skin is pink, warm \T\ dry. Musculoskeletal: Range of motion: intact in all extremities. 08:05 Reassessment: No changes from previously documented assessment. rs5 09:09 Reassessment: Patient and/or family updated on plan of care and expected duration. Pain rs5 level reassessed. Patient is alert, oriented x 3, equal unlabored respirations, skin warm/dry/pink. Vital Signs: 05:49 BP 129 / 78; Pulse 68; Resp 17 S; Temp 97.9(O); Pulse Ox 100% on R/A; Weight 83.91 kg lg3 (R); Height 5 ft. 9 in. (R); 06:00 BP 126 / 73; Pulse 66; Resp 16; Pulse Ox 99% on R/A; km8 06:30 BP 103 / 60; Pulse 63; Resp 16; Pulse Ox 99% on R/A; km8 09:09 BP 120 / 74; Pulse 68; Resp 18; Pulse Ox 99% on R/A; rs5 05:49 Body Mass Index 27.32 (83.91 kg, 175.26 cm) lg3 ED Course: 05:39 Patient arrived in ED. rv1 05:40 Domenic Ramirez MD is Attending Physician. rn 05:49 Blanca Cope RN is Primary Nurse. lg3 05:55 Triage completed. lg3 05:55 Arm band placed on right wrist. lg3 06:00 EKG done, by ED staff, reviewed by Domenic Ramirez MD. oe 06:02 Patient has correct armband on for positive identification. Placed in gown. Bed in low lg3 position. Call light in reach. Side rails up X 1. Client placed on continuous cardiac and pulse oximetry monitoring. NIBP monitoring applied. manager monitoring on. Door closed. Noise minimized. Warm blanket given. Family accompanied patient. 06:09 Inserted saline lock: 20 gauge in right forearm, using aseptic technique. Blood lg3 collected. 07:04 Attending Physician role handed off by Domenic Ramirez MD ec2 07:04 Jerrell Lewis MD is Attending Physician. ec2 07:15 XRAY Chest (1 view) In Process Unspecified. EDMS 09:03 Pepe Rodriguez MD is Referral Physician. ec2 09:08 No provider procedures requiring assistance completed. rs5 09:20 IV discontinued, intact, bleeding controlled, No redness/swelling at site. Pressure rs5 dressing applied. Administered Medications: 06:48 Drug: morphine IVP or IV 4 mg IVP once over 4 mins Route: IVP; Infused Over: 4 mins; km8 Site: right forearm; 07:10 Follow up: Response: No adverse reaction rs5 Medication: 09:08 VIS not applicable for this client. rs5 Outcome: 09:03 Discharge ordered by . ec2 09:20 Discharged to home ambulatory, with family, rs5 09:20 Condition: stable 09:20 Discharge instructions given to patient, family, Instructed on discharge instructions, follow up and referral plans. medication usage, Demonstrated understanding of instructions, follow-up care, medications, Prescriptions given X 1, 09:24 Patient left the ED. rs5 Signatures: Dispatcher [employer] EDGA Domenic Ramirez MD MD rn Espinosa, Orlando oe Able, Lacie, RN RN lg3 Chacha Shipley rv1 Juan Penny, RN RN rs5 Jerrell Lewis MD MD ec2 Katelynn French, AYLIN RN km8 Corrections: (The following items were deleted from the chart) 06:40 06:30 BP 125 / 70; Pulse 88bpm; Resp 16bpm; Pulse Ox 96% RA; km8 km8
--- NOTE | 2024-02-25 09:03 | EDPHYS ---
Physician Documentation [facility] Name: Charan Restrepo Jr Age: 53 yrs Sex: Male : 1970 Arrival Date: 02/25/2024 Time: 05:38 Bed 5 Private MD: ED Physician Jerrell Lewis HPI: 02/24 06:16 This 53 yrs old Male presents to ER via Ambulatory with complaints of chest pain. rn 06:16 The patient or guardian reports chest pain that is located primarily in the substernal rn area. Onset: at an unknown time. The pain does not radiate. Associated signs and symptoms: Pertinent negatives: abdominal pain, shortness of breath, vomiting. The chest pain is described as aching. Duration: The patient or guardian reports multiple episodes, that are intermittent. Modifying factors: The symptoms are alleviated by nothing. the symptoms are aggravated by nothing. Severity of pain: At its worst the pain was moderate in the emergency department the pain is unchanged. The patient has experienced similar episodes in the past. The patient has been recently been admitted at [facility]. Patient reports still having chest pain. Recent admission for chest pain here, admitted, ruled out and medications changed. Patient states still having intermittent chest pain since admission. No gross changes. Taking isosorbide and hydrocodone and patient states not making pain go away. States the only thing that helps is morphine. No new symptoms or trauma. No hemoptysis. States compliant with his warfarin.. Historical: - Allergies: 05:55 No Known Allergies; lg3 - Home Meds: 05:55 isosorbide mononitrate 30 mg Oral Tablet once [Active]; clopidogrel 75 mg oral tablet lg3 daily [Active]; amiodarone 200 mg Oral tablet 2 times per day [Active]; spironolactone 25 mg Oral tablet daily [Active]; atorvastatin 40 mg Oral tablet once [Active]; warfarin 5 mg oral tablet daily [Active]; - PMHx: 05:55 blood clot to heart; diabetes mellitus; external defibrillator vest; Hyperlipidemia; lg3 Hypertension; Myocardial infarction; - PSHx: 05:55 6 heart stents; bone graft; Cholecystectomy; knee; left leg; Right femur; lg3 - Immunization history:: Adult Immunizations up to date, Client reports having NOT received the Covid vaccine. Pneumococcal vaccine is not up to date, Flu vaccine is not up to date. - Infectious Disease History:: Denies. - Social history:: Smoking status: Patient reports the use of cigarette tobacco products, smokes two packs cigarettes per day. Patient uses alcohol, only on a social basis. Patient/guardian denies using street drugs. - Family history:: not pertinent. - Hospitalizations: : The patient was recently seen at [facility]. ROS: 06:16 Constitutional: Negative for fever, chills, and weight loss, Cardiovascular: Positive rn for chest pain Respiratory: Negative for shortness of breath, cough, wheezing, and pleuritic chest pain, Abdomen/GI: Negative for abdominal pain, nausea, vomiting, diarrhea, and constipation, MS/Extremity: Negative for injury and deformity, Skin: Negative for injury, rash, and discoloration, Neuro: Negative for headache, weakness, numbness, tingling, and seizure, Exam: 06:16 Constitutional: This is a well developed, well nourished patient who is awake, alert, rn and in no acute distress. Ambulatory to room without assistance or difficulty. Smells of alcohol Head/Face: Normocephalic, atraumatic. Chest/axilla: Normal chest wall appearance and motion. Nontender with no deformity. Cardiovascular: Regular rate and rhythm. No pulse deficits. Respiratory: No increased work of breathing, no retractions or nasal flaring. Abdomen/GI: Soft, nontender MS/ Extremity: Pulses equal, no cyanosis. Neurovascular intact. Full, normal range of motion. Equal circumference. Vital Signs: 05:49 BP 129 / 78; Pulse 68; Resp 17 S; Temp 97.9(O); Pulse Ox 100% on R/A; Weight 83.91 kg lg3 (R); Height 5 ft. 9 in. (R); 06:00 BP 126 / 73; Pulse 66; Resp 16; Pulse Ox 99% on R/A; km8 06:30 BP 103 / 60; Pulse 63; Resp 16; Pulse Ox 99% on R/A; km8 09:09 BP 120 / 74; Pulse 68; Resp 18; Pulse Ox 99% on R/A; rs5 05:49 Body Mass Index 27.32 (83.91 kg, 175.26 cm) lg3 MDM: 05:40 Patient medically screened. rn 07:18 Data reviewed: vital signs. ec2 07:19 ED course: Patient signed out to me by previous physician, in brief patient arrives ec2 today due to concern for chest pain. Patient's lab work is remarkable for reassuring metabolic profile, BNP this minimally elevated, CBC that is reassuring. Troponin within normal ranges. EKG independently reviewed and interpreted by me, shows normal sinus rhythm, rate of 69, no acute ST segment elevations, left bundle branch block noted, intervals are otherwise nonconcerning. Plan is obtain repeat EKG and Trope at the 2-hour bettye, patient does have outpatient follow-up today with Dr. Rodriguez, cardiology. Of note patient was recently admitted recently with a negative cardiac evaluation. Plan is to likely discharge home with pending repeat EKG and troponin if reassuring. . 08:04 ED course: Repeat EKG independently reviewed and interpreted by me, shows normal sinus ec2 rhythm, rate of 62, no acute ST segment elevations, normal nonconcerning. Compared to initial EKG, grossly unchanged.. 09:00 ED course: Repeat troponin is unremarkable.. ec2 02/24 05:55 Order name: Basic Metabolic Panel; Complete Time: 06:42 rn 02/24 05:55 Order name: CBC with Diff; Complete Time: 06:42 rn 02/24 05:55 Order name: NT PRO-BNP; Complete Time: 06:42 rn 02/24 05:55 Order name: PT-INR; Complete Time: 06:42 rn 02/24 05:55 Order name: Troponin HS; Complete Time: 06:42 rn 02/24 06:09 Order name: ETOH Level; Complete Time: 06:42 rn 02/24 07:48 Order name: Troponin High Sensitivity; Complete Time: 09:00 ec2 02/24 05:55 Order name: XRAY Chest (1 view); Complete Time: 07:41 rn 02/24 05:55 Order name: EKG; Complete Time: 05:55 rn 02/24 05:55 Order name: Cardiac monitoring; Complete Time: 06:03 rn 02/24 05:55 Order name: EKG - Nurse/Tech; Complete Time: 06:03 rn 02/24 05:55 Order name: IV Saline Lock; Complete Time: 06:12 rn 02/24 05:55 Order name: Labs collected and sent; Complete Time: 06:12 rn 02/24 05:55 Order name: O2 Per Protocol; Complete Time: 06:03 rn 02/24 05:55 Order name: O2 Sat Monitoring; Complete Time: 06:03 rn 02/24 07:48 Order name: EKG - Nurse/Tech; Complete Time: 08:07 ec2 02/24 07:48 Order name: Misc. Order: repeat ekg/trop; Complete Time: 08:07 ec2 Administered Medications: 06:48 Drug: morphine IVP or IV 4 mg IVP once over 4 mins Route: IVP; Infused Over: 4 mins; km8 Site: right forearm; 07:10 Follow up: Response: No adverse reaction rs5 Disposition Summary: 02/25/24 09:03 Discharge Ordered Notes: Location: Home ec2 Problem: an ongoing problem ec2 Condition: Stable ec2 Diagnosis - Chest pain, unspecified ec2 Followup: ec2 - With: Private Physician - When: - Reason: Recheck today's complaints Followup: ec2 - With: Pepe Rodriguez MD - When: - Reason: Recheck today's complaints Discharge Instructions: - Discharge Summary Sheet ec2 - Nonspecific Chest Pain, Adult, [id number] ec2 Forms: - Medication Reconciliation Form ec2 - Antibiotic Education ec2 - Prescription Opioid Use ec2 - Patient Portal Instructions ec2 - Leadership Thank You Letter ec2 Prescriptions: - methocarbamol 500 mg Oral tablet - take 2 tablets ORAL route 4 times per day; 20 tablet; Refills: 0, Product ec2 Selection Permitted Signatures: Dispatcher [employer] EDMS Domenic Ramirez MD MD rn Able, Lacie RN RN lg3 Jerrell Lewis MD MD ec2 Katelynn French RN RN km8 Juan Penny RN rs5 Corrections: (The following items were deleted from the chart) 05:55 05:55 BASIC METABOLIC PANEL+C.LAB.BRZ ordered. EDMS EDMS 05:55 05:55 CBC+H.LAB.BRZ ordered. EDMS EDMS 05:55 05:55 PROBNP+C.LAB.BRZ ordered. EDMS EDMS 05:55 05:55 PROTIME (+INR)+COAG.LAB.BRZ ordered. EDMS EDMS 05:55 05:55 Troponin High Sensitivity+C.LAB.BRZ ordered. EDMS EDMS 06:09 06:09 ETHANOL+C.LAB.BRZ ordered. EDMS EDMS
[2024-02-25 09:42] VITALS: BP 120/74; TEMP 97.9; O2SAT 99
--- NOTE | 2024-02-25 14:37 | EKG ---
Test Date: 2024-02-25 Test Time: 05:46:20 Dredge Boat Engineer: BELL MEASUREMENT RESULTS: Intervals: Rate: 69 [place]: 172 QRSD: 104 QT: 442 QTc: 473 [place]: P: 70 [place]: 172 QRS: -62 T: 77 INTERPRETIVE STATEMENTS: Normal sinus rhythm Left axis deviation Inferior infarct, age undetermined Anterolateral infarct, age undetermined Abnormal ECG Compared to ECG 02/18/2024 11:38:41 Left-axis deviation now present Sinus bradycardia no longer present Left anterior fascicular block no longer present Myocardial infarct finding still present Electronically Signed On 02-25-24 14:36:05 CDT by Pepe Rodriguez
--- NOTE | 2024-02-27 13:09 | EKG ---
Test Date: 2024-02-25 Test Time: 08:01:44 Layout Mechanic: PETER MEASUREMENT RESULTS: Intervals: Rate: 62 [place]: 186 QRSD: 110 QT: 452 QTc: 458 [place]: P: 51 [place]: 186 QRS: -67 T: 57 INTERPRETIVE STATEMENTS: Normal sinus rhythm Left anterior fascicular block Inferior infarct, age undetermined Anterolateral infarct, age undetermined Abnormal ECG Compared to ECG 02/25/2024 05:46:20 Left anterior fascicular block now present Left-axis deviation no longer present Myocardial infarct finding still present Electronically Signed On 02-27-24 13:07:55 CDT by Pepe Rodriguez
== END 2024-02-25 09:24 | disposition home or self-care (01) ==
LOC: ER 05:38
DX: R07.9 Chest pain, unspecified (principal); I10 Essential (primary) hypertension; I25.2 Old myocardial infarction
CPT/HCPCS: 36415; 71045; 80048; 82077; 83880; 84484; 85025; 85610; 93005; 96374; 99285

== ENCOUNTER 2024-03-13 08:10 | Inpatient (IN) | payer MEDICAID, OTHER, SELFPAY ==
--- OUTSIDE RECORDS SUMMARY | 2024-03-13 08:16 | XMS REPORT | Continuity of Care Document ---
Author Name Unknown Address [address] [facility]. [address] [place] [address] [facility] thconnect Address [address] [facility] [address] [place] [address] Care Team Providers Care Towboat Operator Name Role Phone Carmen Spencer Attending Clinician Unavailable Jemal Young Attending Clinician Unavailable Papo Mayfield Attending Clinician UnavailMontez Grace Attending Clinician Unavailable Jac Marsh Admitting Clinician Unavailable Papo Mayfield Admitting Clinician UnavailMontez Grace Admitting Clinician Unavailable Payers Payer Name Policy Type Policy Number Effective Date Expirati on Date Source [facility] 6 [id number] 2019 00:00:00 [facility] Problems Condition Name Condition Details Condition Category Status Onset Date Resolution Date Last Treatment Date Treating Clinician Comments Source [id number] Chronic pain syndrome Problem [facility] [id number] Essential hypertensi on Problem [facility] [id number] Coronary stent patent Problem [facility] [id number] Coronary artery disease of [place] heart with stable angina pectoris, unspecifie d vessel or lesion type Problem [facility] [id number] Type 2 diabetes mellitus with hyperglyce solange, without long-term current use of insulin Problem [facility] [id number] Nicotine abuse Problem [facility] Allergies, Adverse Reactions, Alerts Allergy Name Allergy Type Status Severity Reaction(s) Onset Date Inactive Date Treating Clinician Comments Source No Known Allergie s DA Active U 03-18 00:00: 00 [facility] Social History Social Habit Start Date Stop Date Quantity Comments Source History of Tobacco Use Current Smoker [facility] Sex Assigned At [facility] Smoking Status Start Date Stop Date Source Current Smoker 2022-11-09 00:00:00 [facility] Medications Ordered Medication Name Filled Medication [...] height 2022-10-10 10:40:00 70 [in_i] Commo n [facility] weight 2022-10-10 10:40:00 198 [lb_av] Comm on [facility] temperature 2022-10-10 10:40:00 97.9 [degF] Com mon [facility] bmi 2022-10-10 10:40:00 28.41 kg/m2 Comm on [facility] oximetry 2022-10-10 10:40:00 98 % Commo n [facility] respiratory rate 2022-10-10 10:40:00 17 /min [facility] blood pressure systolic 2022-10-10 10:40:00 132 mm[Hg] [facility] blood pressure diastolic 2022-10-10 10:40:00 87 mm[Hg] [facility] Procedures Procedure Date / Time Performed Performing Clinicia n Source [id number] 2023-11-30 00:00:00 CHAAB.01 [facility] [id number] 2023-11-30 00:00:00 CHASH.07 [facility] [id number] 2023-03-18 00:00:00 LUKDA [facility] [id number] 2023-03-18 00:00:00 BUCSC [facility] [id number] 2023-03-18 00:00:00 LUKDA [facility] [id number] 2023-03-18 00:00:00 LUKDA [facility] [id number] 2023-03-18 00:00:00 LUKDA [facility] [id number] 2023-03-18 00:00:00 LUKDA [facility] [id number] 2023-03-18 00:00:00 KDA [facility] Encounters Start Date/Time End Date/Time Encounter Type Admission Type Attending Clinicians Care Facility Care Department Encounter ID Source 2022-11-07 07:49:00 Outpatient Carmen Spencer [facility] [id number] [facility] 2022-10-17 15:16:02 Outpatient Carmen Spencer [facility] [id number] [facility] 2022-10-11 12:49:02 Outpatient Carmen Spencer [facility] ST[facility] [id number] [facility] 2022-10-10 10:34:05 Outpatient Carmen Spencer [facility] ST[facility] [id number] [facility] 2023-12-27 15:16:00 2024-01-08 14:20:00 Inpatient EM Jemal Young [facility]L INTE.02 [id number] [facility] 2023-11-27 00:28:00 2023-12-03 15:18:00 Inpatient EM Papo Mayfield HCACL INTE [id number] [facility] 2023-05-16 11:13:22 2023-05-16 11:13:22 Outpatient SFA SFA [id number] [facility] 2023-03-18 14:57:00 2023-03-20 16:25:00 Inpatient Montez Kay HCAWU MEDI [id number] [facility] 2023-02-19 00:00:00 2023-02-19 00:00:00 (TEL) STLMLC STLC [id number] [facility] 2022-10-10 00:00:00 2022-10-10 00:00:00 OFFICE VISIT ESTAB PT LEVEL 4 STLMLC STLMLC [id number] [facility] Results Test Description Test Time Test Comments Results Result Co mments Source GLUCOSE [id number] 08:39:00* Test Item Value Reference Range Interpretation Comme nts GLUCOSE BEDSIDE (test code = GLUBED) 224 MG/DL 70-110 H Performed by cer tified 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 [facility] BASIC METABOLIC [id number] 05:38:00* Test Item Value Reference Range Interpretation [...] code = CA) 9.6 mg/dL 8.0-10.5 N [id number] 05:38:00* Test Item Value Reference Range Interpretation Comme nts MAGNESIUM (test code = MAG) 1.92 mg/dL 1.6-2.6 N CBC W/AUTO [id number] 05:32:00* Test Item Value Reference Range Interpretation [...] NRBC#) 0.00 x10 3/uL 0.0-0.1 N PROTHROMBIN [id number] 05:31:00* Test Item Value Reference Range Interpretation [...] infarct). COMMENTS: INR X 9 DAYSTHROMBOPLASTIN TIME [id number] 05:31:00* Test Item Value Reference Range Interpretation Comme nts THROMBOPLASTIN TIME PARTIAL (test code = PTT) 67.3 Seconds 25.0-39.5 H Therapeutic Rang e: 50.4 - 88.3 Seconds Effective 02/04/2019 COMMENTS: INR X 9 DAYSGLUCOSE [id number] 20:37:00* Test Item Value Reference Range Interpretation Comme nts GLUCOSE BEDSIDE (test code = GLUBED) 150 MG/DL 70-110 H Performed by [facility] [employer] 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 [facility] THROMBOPLASTIN TIME [id number] 18:35:00* Test Item Value Reference Range Interpretation Comme nts THROMBOPLASTIN TIME PARTIAL (test code = PTT) 66.0 Seconds 25.0-39.5 H Therapeutic Rang e: 50.4 - 88.3 Seconds Effective 02/04/2019 GLUCOSE [id number] 17:06:00* Test Item Value Reference Range Interpretation Comme nts GLUCOSE BEDSIDE (test code = GLUBED) 215 MG/DL 70-110 H Performed by [facility] [employer] 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 [facility] THROMBOPLASTIN TIME [id number] 13:31:00* Test Item Value Reference Range Interpretation Comme nts THROMBOPLASTIN TIME PARTIAL (test code = PTT) 56.8 Seconds 25.0-39.5 H Therapeutic Rang e: 50.4 - 88.3 Seconds Effective 02/04/2019 GLUCOSE [id number] 12:41:00* Test Item Value Reference Range Interpretation Comme nts GLUCOSE BEDSIDE (test code = GLUBED) 136 MG/DL 70-110 H Performed by [facility] [employer] 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 [facility] GLUCOSE [id number] 08:37:00* Test Item Value Reference Range Interpretation Comme nts GLUCOSE BEDSIDE (test code = GLUBED) 261 MG/DL 70-110 H Performed by [facility] [employer] 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 [facility] BASIC METABOLIC [id number] 05:33:00* Test Item Value Reference Range Interpretation [...] code = CA) 9.3 mg/dL 8.0-10.5 N [id number] 05:33:00* Test Item Value Reference Range Interpretation Comme nts MAGNESIUM (test code = MAG) 1.98 mg/dL 1.6-2.6 N PROTHROMBIN [id number] 04:58:00* Test Item Value Reference Range Interpretation [...] infarct). COMMENTS: INR X 9 DAYSTHROMBOPLASTIN TIME [id number] 04:58:00* Test Item Value Reference Range Interpretation Comme nts THROMBOPLASTIN TIME PARTIAL (test code = PTT) 78.6 Seconds 25.0-39.5 H Therapeutic Rang e: 50.4 - 88.3 Seconds Effective 02/04/2019 COMMENTS: PROTOCOLCBC W/AUTO [id number] 04:47:00* Test Item Value Reference Range Interpretation [...] NRBC#) 0.00 x10 3/uL 0.0-0.1 N GLUCOSE [id number] 21:14:00* Test Item Value Reference Range Interpretation Comme nts GLUCOSE BEDSIDE (test code = GLUBED) 160 MG/DL 70-110 H Performed by cer tified 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 [facility] THROMBOPLASTIN TIME [id number] 20:55:00* Test Item Value Reference Range Interpretation Comme nts THROMBOPLASTIN TIME PARTIAL (test code = PTT) 71.0 Seconds 25.0-39.5 H Therapeutic Rang e: 50.4 - 88.3 Seconds Effective 02/04/2019 COMMENTS: PROTOCOLGLUCOSE [id number] 17:37:00* Test Item Value Reference Range Interpretation Comme nts GLUCOSE BEDSIDE (test code = GLUBED) 203 MG/DL 70-110 H Performed by cer tified 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 [facility] GLUCOSE [id number] 12:16:00* Test Item Value Reference Range Interpretation Comme nts GLUCOSE BEDSIDE (test code = GLUBED) 140 MG/DL 70-110 H Performed by cer tified 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 [facility] GLUCOSE [id number] 08:54:00* Test Item Value Reference Range Interpretation Comme nts GLUCOSE BEDSIDE (test code = GLUBED) 213 MG/DL 70-110 H Performed by cer tified 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 [facility] GLUCOSE [id number] 08:33:00* Test Item Value Reference Range Interpretation Comme nts GLUCOSE BEDSIDE (test code = GLUBED) 297 MG/DL 70-110 H Performed by cer tified 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 [facility] BASIC METABOLIC [id number] 06:28:00* Test Item Value Reference Range Interpretation [...] code = CA) 9.2 mg/dL 8.0-10.5 N [id number] 06:28:00* Test Item Value Reference Range Interpretation Comme nts PHOSPHOROUS (test code = PHOS) 4.2 MG/DL 2.5-4.9 N [id number] 06:28:00* Test Item Value Reference Range Interpretation Comme nts MAGNESIUM (test code = MAG) 1.93 mg/dL 1.6-2.6 N CBC W/AUTO [id number] 05:51:00* Test Item Value Reference Range Interpretation [...] NRBC#) 0.00 x10 3/uL 0.0-0.1 N PROTHROMBIN [id number] 05:38:00* Test Item Value Reference Range Interpretation [...] infarct). COMMENTS: INR X 9 DAYSTHROMBOPLASTIN TIME [id number] 05:38:00* Test Item Value Reference Range Interpretation Comme nts THROMBOPLASTIN TIME PARTIAL (test code = PTT) 87.3 Seconds 25.0-39.5 H Therapeutic Rang e: 50.4 - 88.3 Seconds Effective 02/04/2019 COMMENTS: INR X 9 DAYSGLUCOSE [id number] 20:09:00* Test Item Value Reference Range Interpretation Comme nts GLUCOSE BEDSIDE (test code = GLUBED) 265 MG/DL 70-110 H Performed by cer tified 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 [facility] GLUCOSE [id number] 15:50:00* Test Item Value Reference Range Interpretation Comme nts GLUCOSE BEDSIDE (test code = GLUBED) 125 MG/DL 70-110 H Performed by cer tified 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 [facility] PROTHROMBIN [id number] 15:36:00* Test Item Value Reference Range Interpretation [...] (to prevent recurrent infarct). COMMENTS: INR NOWGLUCOSE [id number] 11:33:00* Test Item Value Reference Range Interpretation Comme nts GLUCOSE BEDSIDE (test code = GLUBED) 183 MG/DL 70-110 H Performed by [facility] tified 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 [facility] GLUCOSE [id number] 08:53:00* Test Item Value Reference Range Interpretation Comme nts GLUCOSE BEDSIDE (test code = GLUBED) 193 MG/DL 70-110 H Performed by [facility] tified 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 [facility] COMPREHENSIVE METABOLIC [id number] 04:05:00* Test Item Value Reference Range Interpretation [...] code = ALKP) 78 IUnit/L 20-125 N [id number] 04:05:00* Test Item Value Reference Range Interpretation Comme nts MAGNESIUM (test code = MAG) 1.88 mg/dL 1.6-2.6 N THROMBOPLASTIN TIME [id number] 03:57:00* Test Item Value Reference Range Interpretation Comme nts THROMBOPLASTIN TIME PARTIAL (test code = PTT) 74.6 Seconds 25.0-39.5 H Therapeutic Rang e: 50.4 - 88.3 Seconds Effective 02/04/2019 CBC W/AUTO [id number] 03:47:00* Test Item Value Reference Range Interpretation [...] NRBC#) 0.00 x10 3/uL 0.0-0.1 N GLUCOSE [id number] 21:27:00* Test Item Value Reference Range Interpretation Comme [facility] GLUCOSE BEDSIDE (test code = GLUBED) 213 MG/DL 70-110 H Performed by cer tified 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 [facility] GLUCOSE [id number] 16:59:00* Test Item Value Reference Range Interpretation Comme nts GLUCOSE BEDSIDE (test code = GLUBED) 258 MG/DL 70-110 H Performed by cer tified 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 [facility] GLUCOSE [id number] 11:55:00* Test Item Value Reference Range Interpretation Comme nts GLUCOSE BEDSIDE (test code = GLUBED) 159 MG/DL 70-110 H Performed by cer tified 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 [facility] GLUCOSE [id number] 08:36:00* Test Item Value Reference Range Interpretation Comme nts GLUCOSE BEDSIDE (test code = GLUBED) 231 MG/DL 70-110 H Performed by [facility] tified 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 [facility] THROMBOPLASTIN TIME [id number] 06:10:00* Test Item Value Reference Range Interpretation Comme nts THROMBOPLASTIN TIME PARTIAL (test code = PTT) 66.1 Seconds 25.0-39.5 H Therapeutic Rang e: 50.4 - 88.3 Seconds Effective 02/04/2019 BASIC METABOLIC [id number] 05:30:00* Test Item Value Reference Range Interpretation [...] code = CA) 8.8 mg/dL 8.0-10.5 N [id number] 05:30:00* Test Item Value Reference Range Interpretation Comme nts PHOSPHOROUS (test code = PHOS) 3.4 MG/DL 2.5-4.9 N [id number] 05:30:00* Test Item Value Reference Range Interpretation Comme nts MAGNESIUM (test code = MAG) 1.79 mg/dL 1.6-2.6 N CALCIUM [id number] 05:30:00* Test Item Value Reference Range Interpretation Comme nts CALCIUM IONIZED (test code = MONICA) 1.06 MMOL/L 1.09-1.30 L CBC W/AUTO [id number] 04:56:00* Test Item Value Reference Range Interpretation [...] NRBC#) 0.00 x10 3/uL 0.0-0.1 N GLUCOSE [id number] 20:49:00* Test Item Value Reference Range Interpretation Comme nts GLUCOSE BEDSIDE (test code = GLUBED) 221 MG/DL 70-110 H Performed by cer [employer] 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 [facility] GLUCOSE [id number] 17:32:00* Test Item Value Reference Range Interpretation Comme nts GLUCOSE BEDSIDE (test code = GLUBED) 206 MG/DL 70-110 H Performed by 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 [facility] GLUCOSE [id number] 11:50:00* Test Item Value Reference Range Interpretation Comme nts GLUCOSE BEDSIDE (test code = GLUBED) 182 MG/DL 70-110 H Performed by cer [employer] 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 [facility] GLUCOSE [id number] 09:15:00* Test Item Value Reference Range Interpretation Comme nts GLUCOSE BEDSIDE (test code = GLUBED) 195 MG/DL 70-110 H Performed by [employer] 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 [facility] BASIC METABOLIC [id number] 05:52:00* Test Item Value Reference Range Interpretation [...] code = CA) 9.0 mg/dL 8.0-10.5 N [id number] 05:52:00* Test Item Value Reference Range Interpretation Comme nts PHOSPHOROUS (test code = PHOS) 3.3 MG/DL 2.5-4.9 N [id number] 05:52:00* Test Item Value Reference Range Interpretation Comme nts MAGNESIUM (test code = MAG) 1.76 mg/dL 1.6-2.6 CALCIUM [id number] 05:52:00* Test Item Value Reference Range Interpretation Comme nts CALCIUM IONIZED (test code = MONICA) 1.14 MMOL/L 1.09-1.30 N THROMBOPLASTIN TIME [id number] 05:38:00* Test Item Value Reference Range Interpretation Comme nts THROMBOPLASTIN TIME PARTIAL (test code = PTT) 64.8 Seconds 25.0-39.5 H Therapeutic Rang e: 50.4 - 88.3 Seconds Effective 02/04/2019 CBC W/AUTO [id number] 05:26:00* Test Item Value Reference Range Interpretation [...] NRBC#) 0.00 x10 3/uL 0.0-0.1 N GLUCOSE [id number] 20:31:00* Test Item Value Reference Range Interpretation Comme nts GLUCOSE BEDSIDE (test code = GLUBED) 232 MG/DL 70-110 H Performed by cer tified 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 [facility] GLUCOSE [id number] 16:28:00* Test Item Value Reference Range Interpretation Comme nts GLUCOSE BEDSIDE (test code = GLUBED) 186 MG/DL 70-110 H Performed by cer tified 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 [facility] GLUCOSE [id number] 11:34:00* Test Item Value Reference Range Interpretation Comme nts GLUCOSE BEDSIDE (test code = GLUBED) 239 MG/DL 70-110 H Performed by cer tified 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 [facility] THROMBOPLASTIN TIME [id number] 09:00:00* Test Item Value Reference Range Interpretation Comme nts THROMBOPLASTIN TIME PARTIAL (test code = PTT) 77.8 Seconds 25.0-39.5 H Therapeutic Rang e: 50.4 - 88.3 Seconds Effective 02/04/2019 GLUCOSE [id number] 08:44:00* Test Item Value Reference Range Interpretation Comme nts GLUCOSE BEDSIDE (test code = GLUBED) 197 MG/DL 70-110 H Performed by cer tified 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 [facility] THROMBOPLASTIN TIME [id number] 03:53:00* Test Item Value Reference Range Interpretation Comme nts THROMBOPLASTIN TIME PARTIAL (test code = PTT) 66.2 Seconds 25.0-39.5 H Therapeutic Rang e: 50.4 - 88.3 Seconds Effective 02/04/2019 COMMENTS: PTT THERAPUTIC RANGE 55-75Comment: CHECK PTT [id number] METABOLIC [id number] 02:27:00* Test Item Value Reference Range Interpretation [...] code = CA) 9.7 mg/dL 8.0-10.5 N [id number] 02:27:00* Test Item Value Reference Range Interpretation Comme nts PHOSPHOROUS (test code = PHOS) 3.2 MG/DL 2.5-4.9 N [id number] 02:27:00* Test Item Value Reference Range Interpretation Comme nts MAGNESIUM (test code = MAG) 2.08 mg/dL 1.6-2.6 N CALCIUM [id number] 02:27:00* Test Item Value Reference Range Interpretation Comme nts CALCIUM IONIZED (test code = MONICA) 1.17 MMOL/L 1.09-1.30 N CBC W/AUTO [id number] 01:59:00* Test Item Value Reference Range Interpretation [...] 0.00 x10 3/uL 0.0-0.1 N THROMBOPLASTIN TIME [id number] 21:30:00* Test Item Value Reference Range Interpretation Comme nts THROMBOPLASTIN TIME PARTIAL (test code = PTT) 65.5 Seconds 25.0-39.5 H Therapeutic Rang e: 50.4 - 88.3 Seconds Effective 02/04/2019 GLUCOSE [id number] 20:14:00* Test Item Value Reference Range Interpretation Comme nts GLUCOSE BEDSIDE (test code = GLUBED) 193 MG/DL 70-110 H Performed by cer tified 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 [facility] GLUCOSE [id number] 16:48:00* Test Item Value Reference Range Interpretation Comme nts GLUCOSE BEDSIDE (test code = GLUBED) 205 MG/DL 70-110 H Performed by cer tified 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 [facility] GLUCOSE [id number] 13:05:00* Test Item Value Reference Range Interpretation Comme nts GLUCOSE BEDSIDE (test code = GLUBED) 119 MG/DL 70-110 H Performed by cer tified 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 [facility] THROMBOPLASTIN TIME [id number] 12:46:00* Test Item Value Reference Range Interpretation Comme nts THROMBOPLASTIN TIME PARTIAL (test code = PTT) 50.1 Seconds 25.0-39.5 H Therapeutic Rang e: 50.4 - 88.3 Seconds Effective 02/04/2019 COMMENTS: PTT THERAPUTIC RANGE 55-75Comment: CHECK PTT [id number] BEDSIDE 2024-01-01 11:43:00* Test Item Value Reference Range Interpretation Comme nts GLUCOSE BEDSIDE (test code = GLUBED) 122 MG/DL 70-110 H Performed by cer tified 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 [facility] GLUCOSE [id number] 09:37:00* Test Item Value Reference Range Interpretation Comme nts GLUCOSE BEDSIDE (test code = GLUBED) 260 MG/DL 70-110 H Performed by cer tified 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 [facility] GLUCOSE [id number] 07:57:00* Test Item Value Reference Range Interpretation Comme nts GLUCOSE BEDSIDE (test code = GLUBED) 245 MG/DL 70-110 H Performed by cer tified 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 [facility] THROMBOPLASTIN TIME [id number] 06:41:00* Test Item Value Reference Range Interpretation Comme nts THROMBOPLASTIN TIME PARTIAL (test code = PTT) 55.9 Seconds 25.0-39.5 H Therapeutic Rang e: 50.4 - 88.3 Seconds Effective 02/04/2019 BASIC METABOLIC [id number] 05:37:00* Test Item Value Reference Range Interpretation [...] code = CA) 9.0 mg/dL 8.0-10.5 N [id number] 05:37:00* Test Item Value Reference Range Interpretation Comme nts PHOSPHOROUS (test code = PHOS) 3.3 MG/DL 2.5-4.9 N [id number] 05:37:00* Test Item Value Reference Range Interpretation Comme nts MAGNESIUM (test code = MAG) 1.92 mg/dL 1.6-2.6 N CALCIUM [id number] 05:37:00* Test Item Value Reference Range Interpretation Comme nts CALCIUM IONIZED (test code = MONICA) 1.21 MMOL/L 1.09-1.30 N CBC W/AUTO [id number] 05:09:00* Test Item Value Reference Range Interpretation [...] 0.00 x10 3/uL 0.0-0.1 N THROMBOPLASTIN TIME [id number] 01:23:00* Test Item Value Reference Range Interpretation Comme nts THROMBOPLASTIN TIME PARTIAL (test code = PTT) 61.9 Seconds 25.0-39.5 H Therapeutic Rang e: 50.4 - 88.3 Seconds Effective 02/04/2019 COMMENTS: PTT THERAPUTIC RANGE 55-75Comment: CHECK PTT Q6HRS- CTA HEART W CN [id number] 00:00:00 [facility] 1970 Sex: M Name: CHARAN RESTREPO [facility] : 1970 Age/S: 53 / M [address] [place] [address] Blvd Unit #: [id number] Loc: [place] [address] Phys: Papo Mayfield MD Acct: [id number] Dis Date: Status: ADM INPHONE #: [phone] Exam Date: 01/01/2024 1443 FAX #: [phone] Reason: edy for Exam: evaluate for LV thrombus EXAMS: CPT CODE: [id number] CTA HEART W CN ART/GRAFTS 32742 Radiation Dose CTDIVOL= 83.12 (mGy): DLP = [...] with no contrast identified within the distal [place] LAD. Patent ramus intermedius. Left circumflex artery (LCx): There is mixed plaque within the left circumflex artery resulting in minimal to mild stenosis. There is minimal stenosis ofthe 1st obtuse marginal branch. PAGE 1 Signed Report (CONTINUED) Name: CHARAN RESTREPO [facility] Xiang Marti : 1970 Age/S: 53 / M [address] [place] [address] Unit #: [id number] Loc: [place] [address] Phys: Papo Mayfield MD Acct: [id number] Dis Date: Status: ADM IN PHONE #: [phone] Exam Date: 01/01/2024 1443 FAX #: [phone] Reason: edy for Exam: evaluate for LV thrombus EXAMS: CPT CODE: [id number] CTA HEART W CN ART/GRAFTS 20524 (Continued) Right coronary artery (RCA): Calcified plaque [...] MG/DL 70-110 H Performed by cer tified 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 [facility] THROMBOPLASTIN TIME [id number] 18:50:00* Test Item Value Reference Range Interpretation Comme nts THROMBOPLASTIN TIME PARTIAL (test code = PTT) 65.6 Seconds 25.0-39.5 H Therapeutic Rang e: 50.4 - 88.3 Seconds Effective 02/04/2019 COMMENTS: PTT 55-75Comment: ONE TIMEGLUCOSE [id number] 17:39:00* Test Item Value Reference Range Interpretation Comme nts GLUCOSE BEDSIDE (test code = GLUBED) 175 MG/DL 70-110 H Performed by cer tified 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 [facility] THROMBOPLASTIN TIME [id number] 13:08:00* Test Item Value Reference Range Interpretation Comme nts THROMBOPLASTIN TIME PARTIAL (test code = PTT) 52.9 Seconds 25.0-39.5 H Therapeutic Rang e: 50.4 - 88.3 Seconds Effective 02/04/2019 COMMENTS: PTT THERAPUTIC RANGE 55-75Comment: CHECK PTT [id number] BEDSIDE 2023-12-31 12:59:00* Test Item Value Reference Range Interpretation Comme nts GLUCOSE BEDSIDE (test code = GLUBED) 143 MG/DL 70-110 H Performed by cer tified 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 [facility] GLUCOSE [id number] 11:57:00* Test Item Value Reference Range Interpretation Comme nts GLUCOSE BEDSIDE (test code = GLUBED) 109 MG/DL 70-110 N Performed by cer tified 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 [facility] BASIC METABOLIC [id number] 09:58:00* Test Item Value Reference Range Interpretation [...] code = CA) 8.9 mg/dL 8.0-10.5 N [id number] 09:58:00* Test Item Value Reference Range Interpretation Comme nts PHOSPHOROUS (test code = PHOS) 3.5 MG/DL 2.5-4.9 N [id number] 09:58:00* Test Item Value Reference Range Interpretation Comme nts MAGNESIUM (test code = MAG) 2.09 mg/dL 1.6-2.6 N CALCIUM [id number] 09:58:00* Test Item Value Reference Range Interpretation Comme nts CALCIUM IONIZED (test code = MONICA) 1.08 MMOL/L 1.09-1.30 L CBC W/AUTO [id number] 09:44:00* Test Item Value Reference Range Interpretation [...] NRBC#) 0.00 x10 3/uL 0.0-0.1 N GLUCOSE [id number] 09:06:00* Test Item Value Reference Range Interpretation Comme nts GLUCOSE BEDSIDE (test code = GLUBED) 174 MG/DL 70-110 H Performed by cer tified 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 [facility] THROMBOPLASTIN TIME [id number] 08:00:00* Test Item Value Reference Range Interpretation Comme nts THROMBOPLASTIN TIME PARTIAL (test code = PTT) 47.8 Seconds 25.0-39.5 H Therapeutic Rang e: 50.4 - 88.3 Seconds Effective 02/04/2019 GLUCOSE [id number] 21:16:00* Test Item Value Reference Range Interpretation Comme [facility] GLUCOSE BEDSIDE (test code = GLUBED) 187 MG/DL 70-110 H Performed by [facility] tified 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 [facility] THROMBOPLASTIN TIME [id number] 20:32:00* Test Item Value Reference Range Interpretation Comme [facility] THROMBOPLASTIN TIME PARTIAL (test code = PTT) 38.7 Seconds 25.0-39.5 N Therapeutic Rang e: 50.4 - 88.3 Seconds Effective 02/04/2019 GLUCOSE [id number] 16:43:00* Test Item Value Reference Range Interpretation Comme [facility] GLUCOSE BEDSIDE (test code = GLUBED) 236 MG/DL 70-110 H Performed by [facility] tified 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 [facility] PROTHROMBIN [id number] 13:22:00* Test Item Value Reference Range Interpretation Comme [facility] PROTHROMBIN TIME PATIENT (test code [...] prior to initiation of heparinComment: infusionTHROMBOPLASTIN TIME [id number] 13:22:00* Test Item Value Reference Range Interpretation Comme [facility] THROMBOPLASTIN TIME PARTIAL (test code = PTT) 37.1 Seconds 25.0-39.5 N Therapeutic Rang e: 50.4 - 88.3 Seconds Effective 02/04/2019 COMMENTS: STAT if not done within 24 hours prior to initiation of heparinComment: infusionGLUCOSE [id number] 10:58:00* Test Item Value Reference Range Interpretation Comme nts GLUCOSE BEDSIDE (test code = GLUBED) 131 MG/DL 70-110 H Performed by cer yasir 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 [facility] BASIC METABOLIC [id number] 06:15:00* Test Item Value Reference Range Interpretation [...] code = CA) 9.0 mg/dL 8.0-10.5 N [id number] 06:15:00* Test Item Value Reference Range Interpretation Comme nts PHOSPHOROUS (test code = PHOS) 3.8 MG/DL 2.5-4.9 N [id number] 06:15:00* Test Item Value Reference Range Interpretation Comme nts MAGNESIUM (test code = MAG) 1.98 mg/dL 1.6-2.6 N CALCIUM [id number] 06:15:00* Test Item Value Reference Range Interpretation Comme nts CALCIUM IONIZED (test code = MONICA) 1.15 MMOL/L 1.09-1.30 N CBC W/AUTO [id number] 05:21:00* Test Item Value Reference Range Interpretation [...] NRBC#) 0.00 x10 3/uL 0.0-0.1 N GLUCOSE [id number] 19:59:00* Test Item Value Reference Range Interpretation Comme nts GLUCOSE BEDSIDE (test code = GLUBED) 173 MG/DL 70-110 H Performed by cer tified 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 [facility] GLUCOSE [id number] 16:13:00* Test Item Value Reference Range Interpretation Comme nts GLUCOSE BEDSIDE (test code = GLUBED) 180 MG/DL 70-110 H Performed by cer tified 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 [facility] GLUCOSE [id number] 11:33:00* Test Item Value Reference Range Interpretation Comme nts GLUCOSE BEDSIDE (test code = GLUBED) 140 MG/DL 70-110 H Performed by cer tified 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 [facility] GLUCOSE [id number] 07:32:00* Test Item Value Reference Range Interpretation Comme nts GLUCOSE BEDSIDE (test code = GLUBED) 203 MG/DL 70-110 H Performed by cer tified 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 [facility] BASIC METABOLIC [id number] 06:10:00* Test Item Value Reference Range Interpretation [...] code = CA) 8.7 mg/dL 8.0-10.5 N [id number] 06:10:00* Test Item Value Reference Range Interpretation Comme nts PHOSPHOROUS (test code = PHOS) 3.9 MG/DL 2.5-4.9 N [id number] 06:10:00* Test Item Value Reference Range Interpretation Comme nts MAGNESIUM (test code = MAG) 2.21 mg/dL 1.6-2.6 N CALCIUM [id number] 06:10:00* Test Item Value Reference Range Interpretation Comme nts CALCIUM IONIZED (test code = MONICA) 1.14 MMOL/L 1.09-1.30 N CBC W/AUTO [id number] 05:35:00* Test Item Value Reference Range Interpretation [...] NRBC#) 0.00 x10 3/uL 0.0-0.1 N GLUCOSE [id number] 20:36:00* Test Item Value Reference Range Interpretation Comme nts GLUCOSE BEDSIDE (test code = GLUBED) 178 MG/DL 70-110 H Performed by cer yasir 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 [facility] [id number] 19:57:00* Test Item Value Reference Range Interpretation Comme nts MAGNESIUM (test code = MAG) 2.29 mg/dL 1.6-2.6 BASIC METABOLIC [id number] 18:29:00* Test Item Value Reference Range Interpretation [...] = CA) 8.5 mg/dL 8.0-10.5 N GLUCOSE [id number] 17:23:00* Test Item Value Reference Range Interpretation Comme nts GLUCOSE BEDSIDE (test code = GLUBED) 200 MG/DL 70-110 H Performed by cer tified 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 [facility] GLUCOSE [id number] 08:05:00* Test Item Value Reference Range Interpretation Comme nts GLUCOSE BEDSIDE (test code = GLUBED) 184 MG/DL 70-110 H Performed by cer tified 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 [facility] BASIC METABOLIC [id number] 05:45:00* Test Item Value Reference Range Interpretation [...] code = CA) 7.5 mg/dL 8.0-10.5 L [id number] 05:45:00* Test Item Value Reference Range Interpretation Comme nts PHOSPHOROUS (test code = PHOS) 3.5 MG/DL 2.5-4.9 N [id number] 05:45:00* Test Item Value Reference Range Interpretation Comme nts MAGNESIUM (test code = MAG) 1.80 mg/dL 1.6-2.6 N CBC W/AUTO [id number] 05:25:00* Test Item Value Reference Range Interpretation [...] 0.00 x10 3/uL 0.0-0.1 N TROP-I HIGH [id number] 02:42:00* Test Item Value Reference Range Interpretation [...] URL. These results were obtained using Siemens AtellWaveMAX IM TnIHreagent. Results from different methodologies should not becompared to one another as quantitative results and URLs mayvary by method. ADD-ON [id number] 02:42:00* Test Item Value Reference Range Interpretation Comme nts MAGNESIUM (test code = MAG) 2.00 mg/dL 1.6-2.6 N ADD-ON MAGCOMPREHENSIVE METABOLIC [id number] 22:12:00* Test Item Value Reference Range Interpretation [...] code = ALKP) 67 IUnit/L 20-125 N [id number] 22:12:00* Test Item Value Reference Range Interpretation Comme nts PHOSPHOROUS (test code = PHOS) 3.6 MG/DL 2.5-4.9 N [id number] 22:12:00* Test Item Value Reference Range Interpretation Comme nts MAGNESIUM (test code = MAG) 1.97 mg/dL 1.6-2.6 N CALCIUM [id number] 22:12:00* Test Item Value Reference Range Interpretation Comme nts CALCIUM IONIZED (test code = MONICA) 1.14 MMOL/L 1.09-1.30 N CBC W/AUTO [id number] 21:46:00* Test Item Value Reference Range Interpretation [...] 3/uL 0.0-0.1 N DRUGS OF ABUSE SCREEN [id number] 18:59:00* Test Item Value Reference Range Interpretation [...] non-medical purposes. UA RFLX MICR CULT IF [id number] 18:28:00* Test Item Value Reference Range Interpretation [...] culture: Suprapubic PainSpecimen Description: CLEAN CATCHTROP-I HIGH [id number] 17:54:00* Test Item Value Reference Range Interpretation [...] the URL. These results were obtained using [facility] TnIHreagent. Results from different methodologies should not becompared to one another as quantitative results and URLs mayvary by method. B-TYPE NATRIURETIC [id number] 13:24:00* Test Item Value Reference Range Interpretation Comme nts B-TYPE NATRIURETIC PEPTIDE ( test code = BNP) 66.0 PG/ML 0-100 N BASIC METABOLIC [id number] 13:18:00* Test Item Value Reference Range Interpretation [...] CA) 9.2 mg/dL 8.0-10.5 N HEPATIC FUNCTION [id number] 13:18:00* Test Item Value Reference Range Interpretation [...] code = ALKP) 79 IUnit/L 20-125 N [id number] 13:18:00* Test Item Value Reference Range Interpretation Comme nts LIPASE (test code = LIP) 37 U/L 13-57 N [id number] 13:18:00* Test Item Value Reference Range Interpretation Comme nts MAGNESIUM (test code = MAG) 2.04 mg/dL 1.6-2.6 N TSH REFLEX TO [id number] 13:18:00* Test Item Value Reference Range Interpretation Comme nts TSH REFLEX TO FT4 (test code = TSHREFLEX) 3.92 IU/mL 0.42-5.47 N [id number] 13:18:00* Test Item Value Reference Range Interpretation Comme nts CKMB (test code = CKMBT) 0.1 ng/mL 0-5.0 N CUT OFF:>5 ng/mL is suggested as being consistent with AMI. TROP-I HIGH [id number] 13:18:00* Test Item Value Reference Range Interpretation [...] the URL. These results were obtained using [employer] IM TnIHreagent. Results from different methodologies should not becompared to one another as quantitative results and URLs mayvary by method. CBC W/AUTO [id number] 13:00:00* Test Item Value Reference Range Interpretation [...] 3/uL 0.0-0.1 N - XR CHEST 1 [id number] 13:00:00 [facility] REST[facility]PO : 1970 Sex: M FAX: Margarito Ricks MD [place]: St: [facility] FAX: Jesusita Renner MD [phone] Name: CHARAN RESTREPO [facility] : 1970 Age/S: 53/M [address] [place] [address] Unit #: [id number] Loc: [place] [address] Phys: Margarito Ricks MD Acct: [id number] Dis Date: Status: REG ER PHONE #: [phone] Exam Date: 12/27/2023 1246 FAX #: [phone] Reason: Chest Pain EXAMS: CPT CODE: [id number] XR CHEST 1 V 88176 EXAM: CHEST ONE VIEW INDICATION: Chest Pain [...] 1 Signed Report- CTA HEART W CN ART/[id number] [facility] : 1970 Sex: M Name: CHARAN RESTREPO [facility] Xiang Marti : 1970 Age/S: 53 / M [address] [place] [address] Blvd Unit #: [id number] Loc: TOMASZ [place] [address] Phys: Papo Mayfield MD Acct: [id number] Dis Date: 12/03/2023 Status: DIS IN PHONE #: [phone] Exam Date: 11/30/2023 1526 FAX #: [phone] Reason: edy for Exam: CAD, possible thrombus EXAMS: CPT CODE: [id number] CTA HEART W CN ART/GRAFTS 54365 Radiation Dose CTDIVOL = 62.42 (mGy): DLP [...] Report (CONTINUED) Name: CHARAN RESTREPO [facility] Marti : 1970 Age/S: 53 / M [address] [place] [address] Blvd Unit #: [id number] Loc: [place] [address] Phys: Papo Mayfield MD Acct: [id number] Dis Date: 12/03/2023 Status: DIS IN PHONE #: [phone] Exam Date: 11/30/2023 1526 FAX #: [phone] Reason: edy for Exam: CAD, possible thrombus EXAMS: CPT CODE: [id number] CTA HEART W CN ART/GRAFTS 07150 (Continued) proximal segment resulting in minimal stenosis. [...] 2 Signed Report (CONTINUED) Name: CHARAN RESTREPO [facility] : 1970 Age/S: 53 / M [address] [place] [address] Blvd Unit #: [id number] Loc: Fernando [id number] Phys: Papo Mayfield MD Acct: [id number] Dis Date: 12/03/2023 Status: DIS IN PHONE #: [phone] Exam Date: 11/30/2023 1526 FAX #: [phone] Reason: edy for Exam: CAD, possible thrombus EXAMS: CPT CODE: [id number] CTA HEART W CN ART/GRAFTS 78193 (Continued) CC: Papo Mayfield MD;Jesusita Osuna MD Technologist:Dejuan Sanchez Jr, RT(R)(CT) CTDI: DLP: Trnscb Date/Time: 12/04/2023 (454) t.SDR.CM29 Orig Print D/T: S: 12/04/2023 (0455) PAGE 3 Signed ReportGLUCOSE [id number] 11:58:00 * Test Item Value Reference Range Interpretation Comme nts GLUCOSE BEDSIDE (test code = GLUBED) 207 MG/DL 70-110 H Performed by cer tified 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 [facility] GLUCOSE [id number] 08:12:00* Test Item Value Reference Range Interpretation Comme nts GLUCOSE BEDSIDE (test code = GLUBED) 228 MG/DL 70-110 H Performed by [facility] [employer] 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 [facility] CBC W/AUTO [id number] 06:16:00* Test Item Value Reference Range Interpretation [...] N COMMENTS: Daily while on HeparinBASIC METABOLIC [id number] 05:45:00* Test Item Value Reference Range Interpretation [...] code = CA) 9.1 mg/dL 8.0-10.5 N [id number] 05:45:00* Test Item Value Reference Range Interpretation Comme nts PHOSPHOROUS (test code = PHOS) 4.0 MG/DL 2.5-4.9 N [id number] 05:45:00* Test Item Value Reference Range Interpretation Comme nts MAGNESIUM (test code = MAG) 1.87 mg/dL 1.6-2.6 N CALCIUM [id number] 05:45:00* Test Item Value Reference Range Interpretation Comme nts CALCIUM IONIZED (test code = MONICA) 1.13 MMOL/L 1.09-1.30 N GLUCOSE [id number] 20:56:00* Test Item Value Reference Range Interpretation Comme nts GLUCOSE BEDSIDE (test code = GLUBED) 305 MG/DL 70-110 H Performed by cer tified 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 [facility] GLUCOSE [id number] 16:35:00* Test Item Value Reference Range Interpretation Comme nts GLUCOSE BEDSIDE (test code = GLUBED) 228 MG/DL 70-110 H Performed by cer tified 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 [facility] GLUCOSE [id number] 11:56:00* Test Item Value Reference Range Interpretation Comme nts GLUCOSE BEDSIDE (test code = GLUBED) 205 MG/DL 70-110 H Performed by cer tified 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 [facility] GLUCOSE [id number] 07:36:00* Test Item Value Reference Range Interpretation Comme nts GLUCOSE BEDSIDE (test code = GLUBED) 233 MG/DL 70-110 H Performed by cer tified 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 [facility] BASIC METABOLIC [id number] 03:40:00* Test Item Value Reference Range Interpretation [...] code = CA) 9.3 mg/dL 8.0-10.5 N [id number] 03:40:00* Test Item Value Reference Range Interpretation Comme nts PHOSPHOROUS (test code = PHOS) 3.7 MG/DL 2.5-4.9 N [id number] 03:40:00* Test Item Value Reference Range Interpretation Comme nts MAGNESIUM (test code = MAG) 1.95 mg/dL 1.6-2.6 N TROP-I HIGH [id number] 03:40:00* Test Item Value Reference Range Interpretation [...] URL. These results were obtained using [employer] AtellWaveMAX IM TnIHreagent. Results from different methodologies should not becompared to one another as quantitative results and URLs mayvary by method. CALCIUM [id number] 03:40:00* Test Item Value Reference Range Interpretation Comme nts CALCIUM IONIZED (test code = MONICA) 1.19 MMOL/L 1.09-1.30 N CBC W/AUTO [id number] 03:07:00* Test Item Value Reference Range Interpretation [...] 0.0-0.1 N COMMENTS: Daily while on HeparinGLUCOSE [id number] 21:11:00* Test Item Value Reference Range Interpretation Comme nts GLUCOSE BEDSIDE (test code = GLUBED) 247 MG/DL 70-110 H Performed by cer tified 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 [facility] GLUCOSE [id number] 16:48:00* Test Item Value Reference Range Interpretation Comme nts GLUCOSE BEDSIDE (test code = GLUBED) 239 MG/DL 70-110 H Performed by [facility] tified 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 [facility] GLUCOSE [id number] 10:48:00* Test Item Value Reference Range Interpretation Comme nts GLUCOSE BEDSIDE (test code = GLUBED) 196 MG/DL 70-110 H Performed by [facility] tified 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 [facility] GLUCOSE [id number] 07:49:00* Test Item Value Reference Range Interpretation Comme nts GLUCOSE BEDSIDE (test code = GLUBED) 247 MG/DL 70-110 H Performed by [facility] tified 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 [facility] BASIC METABOLIC [id number] 05:07:00* Test Item Value Reference Range Interpretation [...] code = CA) 9.0 mg/dL 8.0-10.5 N [id number] 05:07:00* Test Item Value Reference Range Interpretation Comme nts PHOSPHOROUS (test code = PHOS) 3.7 MG/DL 2.5-4.9 N [id number] 05:07:00* Test Item Value Reference Range Interpretation Comme nts MAGNESIUM (test code = MAG) 2.06 mg/dL 1.6-2.6 N CALCIUM [id number] 05:07:00* Test Item Value Reference Range Interpretation Comme nts CALCIUM IONIZED (test code = MONICA) 1.14 MMOL/L 1.09-1.30 N THROMBOPLASTIN TIME [id number] 04:55:00* Test Item Value Reference Range Interpretation Comme nts THROMBOPLASTIN TIME PARTIAL (test code = PTT) 27.8 Seconds 25.0-39.5 Therapeutic Rang e: 50.4 - 88.3 Seconds Effective 02/04/2019 CBC W/AUTO [id number] 04:48:00* Test Item Value Reference Range Interpretation [...] NO COMMENTS: Daily while on HeparinTHROMBOPLASTIN TIME [id number] 22:40:00* Test Item Value Reference Range Interpretation Comme [facility] THROMBOPLASTIN TIME PARTIAL (test code = PTT) 58.8 Seconds 25.0-39.5 H Therapeutic Rang e: 50.4 - 88.3 Seconds Effective 02/04/2019 GLUCOSE [id number] 22:19:00* Test Item Value Reference Range Interpretation Comme [facility] GLUCOSE BEDSIDE (test code = GLUBED) 340 MG/DL 70-110 H Performed by cer tified 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 [facility] - XR CHEST 1 [id number] 13:44:00 [facility] XIANG MARTIName: CHARAN RESTREPO : 1970 Sex: M FAX: Viki Cartwright [place]: St: ADM FAX: Papo Stiles MD [phone] FAX: Jesusita Renner MD [phone] Name: CHARAN RESTREPO [facility] [place] : 1970 Age/S: 53/M [address] [place] [address] Unit #: [id number] Loc: [address] [place] [address] Phys: Viki Cartwright APRNNP Acct: [id number] Dis Date: Status: ADM IN PHONE #: [phone] Exam Date: 11/30/2023 1248 FAX #: [phone] Reason: S/p intubati on EXAMS: CPT CODE: [id number] XR CHEST 1 V 69322 Dictation location: C4. CHEST, FRONTAL VIEW HISTORY: [...] Technologist: Jane Reyna RT(R) Trnscrd Date/Time/By: 11/30/2023 (5504) : By: [email or web address] Orig Print D/T: S: 11/30/2023 (6008) PAGE 1 Signed XytpscEEQ-[id number] 11:20:00* Test Item Value Reference Range Interpretation Comme nts ACT-ISTAT (test code = ACTI) 131 SEC 74-137 N Performed by cer tified 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 [facility] POC ARTERIAL BLOOD [id number] 11:15:00* Test Item Value Reference Range Interpretation Comme nts POC ARTERIAL BLOOD GAS PH (t est code = POCPHA) 7.270 7.35-7.45 LL POC ARTERIAL BLOOD GAS PCO2 (test code = FAODDP6T) 48.2 mmHg 35.0-45 H POC TCO2 ARTERIAL (test code = POCTCO2) 23.6 POC ARTERIAL BLOOD GAS PO2 ( test code = ADPVR0S) 349.7 mmHg 80-100.0 HH POC HCO3 ARTERIAL (test code = BMWGYV6W) 22.1 MMOL/L 22.0-26.0 N POC BASE EXCESS (test code = POCBEA) -5.1 MMOL/L -4.0-4.0 L POC O2 SATURATION (test code = POCO2S) 99.9 % 90-100 N BASIC METABOLIC [id number] 11:15:00* Test Item Value Reference Range Interpretation [...] = POCGLU) 214 MG/DL 70-110 H HEMOGLOBIN [id number] 11:15:00* Test Item Value Reference Range Interpretation Comme [facility] HEMOGLOBIN ABG (test code = HGB/ABG) 15.2 G/DL 12.5-16.9 N [id number] 11:15:00* Test Item Value Reference Range Interpretation Comme [facility] HEMATOCRIT (test code = HCT/ABG) 45 % 37.5-50.7 N POC LACTIC [id number] 11:15:00* Test Item Value Reference Range Interpretation Comme [facility] POC LACTIC ACID (test code = POCLAC) 0.5 mmol/l 0.9-1.7 L GLUCOSE [id number] 08:27:00* Test Item Value Reference Range Interpretation Comme [facility] GLUCOSE BEDSIDE (test code = GLUBED) 134 MG/DL 70-110 H Performed by cer tified 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 [facility] PROTHROMBIN [id number] 06:53:00* Test Item Value Reference Range Interpretation Comme [facility] PROTHROMBIN TIME PATIENT (test code [...] Infarction (to prevent recurrent infarct). THROMBOPLASTIN TIME [id number] 06:53:00* Test Item Value Reference Range Interpretation Comme [facility] THROMBOPLASTIN TIME PARTIAL (test code = PTT) 57.9 Seconds 25.0-39.5 H Therapeutic Rang e: 50.4 - 88.3 Seconds Effective 02/04/2019 BASIC METABOLIC [id number] 04:46:00* Test Item Value Reference Range Interpretation [...] code = CA) 9.1 mg/dL 8.0-10.5 N [id number] 04:46:00* Test Item Value Reference Range Interpretation Comme nts PHOSPHOROUS (test code = PHOS) 3.6 MG/DL 2.5-4.9 N [id number] 04:46:00* Test Item Value Reference Range Interpretation Comme nts MAGNESIUM (test code = MAG) 2.06 mg/dL 1.6-2.6 N CALCIUM [id number] 04:46:00* Test Item Value Reference Range Interpretation Comme nts CALCIUM IONIZED (test code = MONICA) 1.14 MMOL/L 1.09-1.30 N CBC W/AUTO [id number] 04:25:00* Test Item Value Reference Range Interpretation [...] N COMMENTS: Daily while on HeparinTHROMBOPLASTIN TIME [id number] 00:44:00* Test Item Value Reference Range Interpretation Comme nts THROMBOPLASTIN TIME PARTIAL (test code = PTT) 78.6 Seconds 25.0-39.5 H Therapeutic Rang e: 50.4 - 88.3 Seconds Effective 02/04/2019 GLUCOSE [id number] 20:57:00* Test Item Value Reference Range Interpretation Comme nts GLUCOSE BEDSIDE (test code = GLUBED) 267 MG/DL 70-110 H Performed by cer yasir 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 [facility] COMPREHENSIVE METABOLIC [id number] 18:46:00* Test Item Value Reference Range Interpretation [...] = ALKP) 52 IUnit/L 20-125 N PROTHROMBIN [id number] 18:36:00* Test Item Value Reference Range Interpretation [...] Infarction (to prevent recurrent infarct). THROMBOPLASTIN TIME [id number] 18:36:00* Test Item Value Reference Range Interpretation Comme nts THROMBOPLASTIN TIME PARTIAL (test code = PTT) 79.3 Seconds 25.0-39.5 H Therapeutic Rang e: 50.4 - 88.3 Seconds Effective 02/04/2019 CBC W/AUTO [id number] 18:25:00* Test Item Value Reference Range Interpretation [...] NRBC#) 0.00 x10 3/uL 0.0-0.1 N GLUCOSE [id number] 17:07:00* Test Item Value Reference Range Interpretation Comme nts GLUCOSE BEDSIDE (test code = GLUBED) 192 MG/DL 70-110 H Performed by melvin caputo at [facility] - XR CHEST 1 [id number] 11:18:00 [facility] 1970 Sex: M FAX: Papo Stiles MD [phone] [place]: St: ADM FAX: Jesusita Renner MD [phone] ------- Name: CHARAN RESTREPO [facility] : 1970 Age/S: 53/M [address] [place] [address] Unit #: [id number] Loc: G.[address] [place], [place] [id number] Phys: Papo Mayfield MD Acct: [id number] Dis Date: Status: ADM IN PHONE #: [phone] Exam Date: 11/29/2023 0837 FAX #: [phone] Reason: Cardiac Surgery Pre Op EXAMS: CPT CODE: [id number] XR CHEST 1 V 64202 Location: H77 EXAM: - XR CHEST 1 [...] By: ArleneMOP Orig Print D/T: S: 11/29/2023 (3383) PAGE 1 Signed Report GLUCOSE [id number] 08:28:00* Test Item Value Reference Range Interpretation Comme nts GLUCOSE BEDSIDE (test code = GLUBED) 169 MG/DL 70-110 H Performed by melvin caputo at [facility] B-TYPE NATRIURETIC [id number] 06:04:00* Test Item Value Reference Range Interpretation Comme nts B-TYPE NATRIURETIC PEPTIDE ( test code = BNP) 76.0 PG/ML 0-100 N COMPREHENSIVE METABOLIC [id number] 05:51:00* Test Item Value Reference Range Interpretation [...] = LDL) 61.0 mg/dL 0-100 N <100 PLGPIDK60 0-129 NEAR OPTIMAL/ABOVE [id number] TJLOYMCKTX809-999 HIGH>VS=024 VERY HIGH*Guidelines provided by the National Cholesterol EducationProgram Adult Treatment Panel III HGBA1C%2023-11-29 05:44:00* Test Item Value Reference Range Interpretation Comme nts HGBA1C% (test code = HGBA1C%) 8.8 %A1C 4.8-6.0 H PROTHROMBIN [id number] 05:43:00* Test Item Value Reference Range Interpretation [...] Infarction (to prevent recurrent infarct). THROMBOPLASTIN TIME [id number] 05:43:00* Test Item Value Reference Range Interpretation Comme nts THROMBOPLASTIN TIME PARTIAL (test code = PTT) 75.5 Seconds 25.0-39.5 H Therapeutic Rang e: 50.4 - 88.3 Seconds Effective 02/04/2019 PLT RESPONSE TO [id number] 05:34:00* Test Item Value Reference Range Interpretation [...] be rejected by our instrumentation. CBC W/AUTO [id number] 05:28:00* Test Item Value Reference Range Interpretation [...] 3/uL 0.0-0.1 N COVID 19 Asymptomatic IH [id number] 02:20:00* Test Item Value Reference Range Interpretation [...] perform moderate, high or waivedcomplexity tests. GLUCOSE [id number] 22:14:00* Test Item Value Reference Range Interpretation Comme nts GLUCOSE BEDSIDE (test code = GLUBED) 200 MG/DL 70-110 H Performed by [facility] 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 [facility] THROMBOPLASTIN TIME [id number] 18:32:00* Test Item Value Reference Range Interpretation Comme nts THROMBOPLASTIN TIME PARTIAL (test code = PTT) 58.4 Seconds 25.0-39.5 H Therapeutic Rang e: 50.4 - 88.3 Seconds Effective 02/04/2019 GLUCOSE [id number] 17:20:00* Test Item Value Reference Range Interpretation Comme nts GLUCOSE BEDSIDE (test code = GLUBED) 145 MG/DL 70-110 H Performed by [facility] [employer] 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 [facility] THROMBOPLASTIN TIME [id number] 12:39:00* Test Item Value Reference Range Interpretation Comme nts THROMBOPLASTIN TIME PARTIAL (test code = PTT) 67.5 Seconds 25.0-39.5 H Therapeutic Rang e: 50.4 - 88.3 Seconds Effective 02/04/2019 GLUCOSE [id number] 11:29:00* Test Item Value Reference Range Interpretation Comme nts GLUCOSE BEDSIDE (test code = GLUBED) 225 MG/DL 70-110 H Performed by [facility] [employer] 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 [facility] - US EXTREM NON VASC [id number] 09:13:00 [facility] XIANG SANTEEName: CHARAN RESTREPO : 1970 Sex: M Name: CHARAN RESTREPO [facility] Xiang Marti : 1970 Age/S: 53 / M [address] [place] [address] Blvd Unit #: [id number] Loc: [place] [address] Phys: Dia Baird Acct: [id number] Dis Date: Status: ADMIN PHONE #: [phone] Exam Date: 11/27/2023 1616 FAX #: [phone] Reason: Cardiac Surgery PreOp EXAMS: CPT CODE: [id number] US EXTREM NON VASC COMP 33164 EXAM: - US EXTREM NON VASC COMP [...] Baird; Jesusita Osuna MD Technologist: Kristel Farris Trnnjb Date/Time: 11/28/2023 (09) ArleneJJYOrig Print D/T: S: 11/28/2023 (0916) Probe: PAGE 1 Signed ReportGLUCOSE [id number] 07:47:00 * Test Item Value Reference Range Interpretation Comme nts GLUCOSE BEDSIDE (test code = GLUBED) 169 MG/DL 70-110 H Performed by cer yasir 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 [facility] PLT RESPONSE TO [id number] 06:12:00* Test Item Value Reference Range Interpretation [...] HGBA1C%) 8.7 %A1C 4.8-6.0 H COMPREHENSIVE METABOLIC [id number] 05:53:00* Test Item Value Reference Range Interpretation [...] ALKP) 66 IUnit/L 20-125 N THROMBOPLASTIN TIME [id number] 05:48:00* Test Item Value Reference Range Interpretation Comme nts THROMBOPLASTIN TIME PARTIAL (test code = PTT) 52.1 Seconds 25.0-39.5 H Therapeutic Rang e: 50.4 - 88.3 Seconds Effective 02/04/2019 COMMENTS: DRAW PTT 6 HOURS AFTER INITIATION OF HEPARINCBC W/AUTO [id number] 05:38:00* Test Item Value Reference Range Interpretation [...] N COMMENTS: Daily while on HeparinTHROMBOPLASTIN TIME [id number] 00:16:00* Test Item Value Reference Range Interpretation Comme [facility] THROMBOPLASTIN TIME PARTIAL (test code = PTT) 47.4 Seconds 25.0-39.5 H Therapeutic Rang e: 50.4 - 88.3 Seconds Effective 02/04/2019 GLUCOSE [id number] 21:43:00* Test Item Value Reference Range Interpretation Comme [facility] GLUCOSE BEDSIDE (test code = GLUBED) 276 MG/DL 70-110 H Performed by cer tified 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 [facility] UA RFLX MICR CULT IF [id number] 18:58:00* Test Item Value Reference Range Interpretation [...] culture: Dysuria/FrequencySpecimen Description: CLEAN CATCH THROMBOPLASTIN TIME [id number] 18:47:00* Test Item Value Reference Range Interpretation Comme nts THROMBOPLASTIN TIME PARTIAL (test code = PTT) 42.1 Seconds 25.0-39.5 H Therapeutic Rang e: 50.4 - 88.3 Seconds Effective 02/04/2019 GLUCOSE [id number] 18:26:00* Test Item Value Reference Range Interpretation Comme nts GLUCOSE BEDSIDE (test code = GLUBED) 212 MG/DL 70-110 H Performed by melvin cooley 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 [facility] - DUP EXTRACRANIAL [id number] 16:29:00 [facility] 1970 Sex: M Name: CHARAN RESTREPO [facility] Sheridan : 1970 Age/S: 53 / M [address] [place] [address] Blvd Unit #: [id number] Loc: [place] [address] Phys: Dia Baird Acct: [id number] Dis Date: Status: ADMIN PHONE #: [phone] Exam Date: 11/27/2023 1615 FAX #: [phone] Reason: Cardiac Surgery PreOp EXAMS: CPT CODE: [id number] DUP EXTRACRANIAL BRENDA 81313 EXAM: Carotid ultrasound Dictation location: E5 INDICATION: [...] (162) Chayo.BC0 Orig Print D/T: S: 11/27/2023 (6468) Probe: PAGE 1 Signed Report- XR CHEST 1 [id number] 16:16:00 [facility] : 1970 Sex: M FAX: Papo Stiles MD [phone] [place]: St: [facility] FAX: Dia Bess FAX: Jesusita Renner MD [phone] Name: CHARAN RESTREPO [facility] : 1970 Age/S: 53/M [address] [place] [address] Unit #: [id number] Loc: [address] [place], [place] [id number] Phys: Dia Baird Physic Acct: [id number] Dis Date: Status: ADM IN PHONE #: [phone] Exam Date: 11/27/2023 [facility]7 FAX #: [phone] Reason: Cardiac Surgery Pre Op EXAMS: CPT CODE: [id number] XR CHEST 1 V 04706 Dictation location: C4. CHEST, FRONTAL VIEW HISTORY: [...] Technologist: Anastasia Poe RT(R) Trnscrd Date/Time/By: 11/27/2023 (1836) : By: DarinelR.SP17 Orig Print D/T: S: 11/27/2023 (0701) PAGE1 Signed ReportTROP-I HIGH SENSITIVITY 2023-11-27 11:52:00* [...] URL. These results were obtained using Siemens AtellWaveMAX IM TnIHreagent. Results from different methodologies should not becompared to one another as quantitative results and URLs mayvary by method. GLUCOSE [id number] 11:49:00* Test Item Value Reference Range Interpretation Comme nts GLUCOSE BEDSIDE (test code = GLUBED) 248 MG/DL 70-110 H Performed by melvin caputo at [facility] PROTHROMBIN [id number] 11:38:00* Test Item Value Reference Range Interpretation [...] be rejected by our instrumentation. CBC W/AUTO [id number] 11:24:00* Test Item Value Reference Range Interpretation [...] HOURS- CT CHEST W/O CONTRAST 2023-11-27 10:24:00 [facility] XIANG SANTEEName: CHARAN RESTREPO : 1970 Sex: M Name: CHARAN RESTREPO [facility] Xiang Marti : 1970 Age/S: 53 / M [address] [place] [address] Blvd Unit #: [id number] Loc: [place] [address] Phys: Dia Baird Acct: [id number] Dis Date: Status: ADM IN PHONE #: [phone] Exam Date: 11/27/2023 0943 FAX #: [phone] Reason: Cardiac Surgery Pre Op EXAMS: CPT CODE: [id number] CT CHEST W/O CONTRAST 40805 EXAM: Chest CT without contrast Dictation location: [...] 1 Signed Report (CONTINUED) Name: CHARAN RESTREPO [facility] : 1970 Age/S: 53 / M [address] [place] [address] BlvdUnit #: [id number] Loc: [place] [address] Phys: Dia Baird Physic Acct: [id number] Dis Date:Status: ADM IN PHONE #: [phone] Exam Date: 11/27/2023942 FAX #: [phone] Reason: Cardiac Surgery Pre Op EXAMS: CPT CODE: [id number] CT CHEST W/O CONTRAST 14684 (Continued) ventriculomegaly,consistent with CHF, and questionable mural [...] mGy at 1024 Reportedand signed by: Landen oRper M.D. CC: Papo Mayfield MD; Dia Baird; Jesusita Maciel Technologist:Jorge A Pollard, RT(R)(CT) CTDI: DLP: Trnscb Date/Time: 11/27/2023 (1024) t.SDR.BC0 Orig Print D/T: S: 11/27/2023 (3486) PAGE 2 Signed ReportGLUCOSE [id number] 07:44:00* Test Item Value Reference Range Interpretation Comme nts GLUCOSE BEDSIDE (test code = GLUBED) 139 MG/DL 70-110 H Performed by cer yasir 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 [facility] B-TYPE NATRIURETIC [id number] 07:32:00* Test Item Value Reference Range Interpretation Comme nts B-TYPE NATRIURETIC PEPTIDE ( test code = BNP) 93.0 PG/ML 0-100 N HGBA1C%2023-11-27 07:10:00* Test Item Value Reference Range Interpretation Comme nts HGBA1C% (test code = HGBA1C%) 8.8 %A1C 4.8-6.0 H COMPREHENSIVE METABOLIC [id number] 07:08:00* Test Item Value Reference Range Interpretation [...] = LDL) 79.0 mg/dL 0-100 N <100 OCYPYMY57 0-129 NEAR OPTIMAL/ABOVE ACHRZHO425-676 DLSBSIGPRG536-562 HIGH>PO=214 VERY HIGH*Guidelines provided by the National Cholesterol EducationProgram Adult Treatment Panel III CBC W/AUTO [id number] 06:59:00* Test Item Value Reference Range Interpretation [...] NRBC#) 0.00 x10 3/uL 0.0-0.1 N PROTHROMBIN [id number] 06:53:00* Test Item Value Reference Range Interpretation [...] Infarction (to prevent recurrent infarct). THROMBOPLASTIN TIME [id number] 06:53:00* Test Item Value Reference Range Interpretation Comme [facility] THROMBOPLASTIN TIME PARTIAL (test code = PTT) 32.7 Seconds 25.0-39.5 N Therapeutic Rang e: 50.4 - 88.3 Seconds Effective 02/04/2019 GLUCOSE BEDSIDE [id number] 10:20:00* Test Item Value Reference Range Interpretation Comme [facility] GLUCOSE BEDSIDE TESTING (shanna t code = GLUBED) 215 MG/DL 60-99 H BASIC METABOLIC [id number] 07:35:00* Test Item Value Reference Range Interpretation [...] code = CA) 8.6 MG/DL 8.4-10.2 N [id number] 07:35:00* Test Item Value Reference Range Interpretation Comme nts MAGNESIUM (test code = MAG) 2.0 MG/DL 1.6-2.3 N GLUCOSE BEDSIDE [id number] 06:26:00* Test Item Value Reference Range Interpretation Comme nts GLUCOSE BEDSIDE TESTING (shanna t code = GLUBED) 187 MG/DL 60-99 H GLUCOSE BEDSIDE [id number] 04:13:00* Test Item Value Reference Range Interpretation Comme nts GLUCOSE BEDSIDE TESTING (shanna t code = GLUBED) 149 MG/DL 60-99 H GLUCOSE BEDSIDE [id number] 23:41:00* Test Item Value Reference Range Interpretation Comme nts GLUCOSE BEDSIDE TESTING (shanna t code = GLUBED) 162 MG/DL 60-99 H GLUCOSE BEDSIDE [id number] 21:11:00* Test Item Value Reference Range Interpretation Comme nts GLUCOSE BEDSIDE TESTING (shanna t code = GLUBED) 203 MG/DL 60-99 H GLUCOSE BEDSIDE [id number] 19:59:00* Test Item Value Reference Range Interpretation Comme nts GLUCOSE BEDSIDE TESTING (shanna t code = GLUBED) 219 MG/DL 60-99 H GLUCOSE BEDSIDE [id number] 19:59:00* Test Item Value Reference Range Interpretation Comme nts GLUCOSE BEDSIDE TESTING (shanna t code = GLUBED) 253 MG/DL 60-99 H GLUCOSE BEDSIDE [id number] 19:58:00* Test Item Value Reference Range Interpretation Comme nts GLUCOSE BEDSIDE TESTING (shanna t code = GLUBED) 247 MG/DL 60-99 H HEPATIC FUNCTION [id number] 11:51:00* Test Item Value Reference Range Interpretation Comme nts TOTAL PROTEIN (test code = PROT) 6.5 G/DL 6.2-7.6 N Ortho Clinical D iagnostic has made us aware of newinformation regarding the potential interference ofEltrombopag (a bone marrow stimulant used to treatthrombocytonmenia and aplastic anemia) with specific assayson the [employer] Gamess 5600 of which Total Protein is one [...] : add on to blood in labURINALYSIS [id number] 04:46:00* Test Item Value Reference Range Interpretation [...] NEGATIVE SOURCE OF URINE: CLEAN CATCHGLYCOSYLATED HEMOGLOBIN [id number] 04:06:00* Test Item Value Reference Range Interpretation [...] MBG) 220 MG/DL 70-110 H BASIC METABOLIC [id number] 03:58:00* Test Item Value Reference Range Interpretation [...] code = CA) 8.5 MG/DL 8.4-10.2 N [id number] 03:58:00* Test Item Value Reference Range Interpretation Comme nts MAGNESIUM (test code = MAG) 2.3 MG/DL 1.6-2.3 N CBC W/AUTO [id number] 03:45:00* Test Item Value Reference Range Interpretation [...] code = NRBC#) 0.00 K/mm3 0.0-0.1 N [id number] 01:08:00* Test Item Value Reference Range Interpretation Comme nts TROPONIN-I (test code = TROPI) 3.570 NG/ML 0.012-0.033 HH CALLED TO YESI Cervantes & READBACK ON 03/19/23 AT 0107 BY Barrett Wang [id number] 22:08:00* Test Item Value Reference Range Interpretation Comme nts TROPONIN-I (test code = TROPI) 3.700 NG/ML 0.012-0.033 HH CALLED TO VLADIMIR ROSA & READBACK ON 03/18/23 AT 2202 BY Michael Umana GLUCOSE BEDSIDE [id number] 20:24:00* Test Item Value Reference Range Interpretation Comme nts GLUCOSE BEDSIDE TESTING (shanna t code = GLUBED) 211 MG/DL 60-99 H LIPOPROTEIN LDL [id number] 19:36:00* Test Item Value Reference Range Interpretation Comme [facility] LIPOPROTEIN LDL DIRECT (test code = LDLDIR) 112 mg/dL 100-129 N ========= R eference Interval: mg/dL mmol/L -----Optimal <100 <2.6Near/above optimal 100-129 2.6-3.3Borderline High 130-159 3.4-4.1High 160-189 4.1-4.9Very High >=190 >=4.9========= This LDL result is a direct measurement.======== = [id number] 19:36:00* Test Item Value Reference Range Interpretation Comme nts TROPONIN-I (test code = TROPI) 3.780 NG/ML 0.012-0.033 HH CALLED TO CHANTAL Burger& READBACK ON 03/18/23 AT 1849 BY Michael Umana - XR CHEST [id number] 19:06:00 [facility] 1970 Sex: M Patient Name: CHARAN RESTREPO Unit No: [id number] EXAMS: CPT CODE: [id number] XR CHEST 1V 35900 LOCATION: Q15 HISTORY: 52-year-old male, history of [...] Chayo.RLA2 Orig Print D/T: S: 03/18/2023 (1908) [facility] NAME: CHARAN RESTREPO [address] PHYS: [address]JO[address] [place] [address] : 1970 AGE: 52 SEX: M LOC: Z.I13 A PHONE #: [phone] EXAM DATE: 03/18/2023 STATUS: ADM IN FAX [...] other causes* of NT-proBNP elevation. GLYCOSYLATED HEMOGLOBIN [id number] 18:36:00* Test Item Value Reference Range Interpretation [...] CK) 274 UNITS/L 55-170 H COMPREHENSIVE METABOLIC [id number] 18:30:00* Test Item Value Reference Range Interpretation [...] 6.1 G/DL 6.2-7.6 L Ortho Clinical D iaR[employer] has made us aware of newinformation regarding [...] code = ALKP) 59 UNITS/L 38-126 N [id number] 18:30:00* Test Item Value Reference Range Interpretation Comme nts PHOSPHOROUS (test code = PHOS) 3.8 MG/DL 2.5-4.5 N [id number] 18:30:00* Test Item Value Reference Range Interpretation Comme nts MAGNESIUM (test code = MAG) 2.3 MG/DL 1.6-2.3 N CBC W/O [id number] 18:09:00* Test Item Value Reference Range Interpretation [...] code = NRBC#) 0.00 K/mm3 0.0-0.1 N [id number]-[id number] 16:25:00* Test Item Value Reference Range Interpretation Comme nts ACT-ISTAT (test code = ACTI) 275 SEC 74-137 H [id number]-[id number] 15:43:00* Test Item Value Reference Range Interpretation Comme nts ACT-ISTAT (test code = ACTI) 281 SEC 74-137 H Notes Date/Time Note Provider Source 2024-01-08 21:14:00 [id number] XnRRCenbx4ZOBiXtiXY/ATGm2HSIT N/IA4JmWLqfSYTcPvUW9MdtFj0q3451-80-52V30:14:00 [facility] ([facility])Hospitalist Discharge SummaryREPORT#:[id number] REPORT STATUS: SignedREPORT INITIALIZATION DATE:01/08/24 TIME: 2113 PATIENT: CHARAN RESTREPO UNIT #: [id number]#: [id number] [address] [birth year] AGE: 53 SEX: M ATTEND: Young,Jemal Jesenia MDADM AUTHOR: Stella Lucia MDREPT SERVICE DT/TIME: 01/08/242113* ALL edits or amendments must be made on the electronic/computer document * General InformationDischarge date: 01/08/24Discharge diagnosis:lv thrombus Hospital course: 53 yrs old male with Pmhx CAD, DM II,Life vest, left atrial clot( on AC Eliquis)and tobacco abuse who presented to outside ED at [facility] in [place] for c/o chest pain and shortness of [...] patient Nicotine patch but he declined.Pain control: [place] PRNDVT ppx: [place] [facility] [place]No acute cardiopulmonary process.Plan of care [...] likely for cabg- workup in progress- per chargeback specialist patient has been cleared to transfer out [...] chronic pain, wants to go home with [place] and morphine. Consult his painmanagement physician, Dr. Gill to adjust pain meds to ease disposition to home. 01/07/24bridging Coumadin with heparin -inr 1.2trending labs-inr in am Ischemic CM: continue metoprolol succinate, valsartan, Farxiga-cardiology following BP acceptable BS remains high, ssi adjustedPt has chronic pain, wants to go home with [place] and morphine. Consult his painmanagement physician, Dr. [...] clinicDiscussed with pharmacy Consultants: cardiology, cardiovascular surgery, critical/foot miter operator, hospitalist Free Text DxA P NotesFree text [...] patient Nicotine patch but he declined.Pain control: [place] PRNDVT ppx: JAYLEN [place] [facility] [place]No acute cardiopulmonary process.Plan of care [...] likely for cabg- workup in progress- per chargeback specialist patient has been cleared to transfer out [...] chronic pain, wants to go home with [place] and morphine. Consult his painmanagement physician, Dr. Gill to adjust pain meds to ease disposition to home. 01/07/24bridging Coumadin with heparin -inr 1.2trending labs-inr in am Ischemic CM: continue metoprolol succinate, valsartan, Farxiga-cardiology following BP acceptable BS remains high, ssi adjustedPt has chronic pain, wants to go home with [place] and morphine. Consult his painmanagement physician, Dr. [...] softGenitourinary: no bladder distentionExtremities: no edemaMusculoskeletal: normal inspectionNeuro/DIRECTORY OPERATOR: alert, normal speechSkin: intact, no rashPsychiatry: normal affect, normal mood Free Text Obj NotesFree Text Obj Notes:General appearance: alert, awakeHead/Eyes: normal conjunctiva/scleraCardiovascular: normal heart sounds, regular rate rhythmRespiratory: clear to auscultation, no distressAbdomen: normal bowel sounds, softExtremities: no edemaNeuro/DIRECTORY OPERATOR: alert, normal speechSkin: intact, no rashPsychiatry: [...] patient Nicotine patch but he declined.Pain control: [place] PRNDVT ppx: AC EliquisLabs in [facility] [place]No acute cardiopulmonary process.Plan of care [...] likely for cabg- workup in progress- per chargeback specialist patient has been cleared to transfer out of [facility] to cv[facility] while awaiting workup 12/31/23- heparin gtt- cta pending- ssi/fingersticks- smoking cessation- [facility] is on case and patient likely for cabg- workup in progress Discharge Instructions PCPDischarge to: Home/Self CareAdditional Discharge Routines: PCP Follow-Up, Carroting Machine Operator Follow-UpDiet: Cardiac Follow-up AppointmentsPCP follow-up: PCP: [...] instructions:CALL OFFICE FOR APPOINTMENT at 2120 RPT #:[id number] OF REPORTDSDischarge agpidlo5747-14-16N51:14:00G.BQHC25682712-6132WQQw ailable for patient sgfeGABTITDGDPGABS0181-98-09I73:21:23 HCACL 2024-01-08 21:07:00 [id number] N2Swsyz6V3NJX7FvYSSglrPrENGhB PKVPozOLsGOx4CPbXruNtolQiF+5734-85-97K57:07:00 [facility]Hospital[facility] Progress NoteREPORT#:[id number] REPORT STATUS: SignedREPORT INITIALIZATION DATE:01/08/24 TIME: 2106 PATIENT: CHARAN RESTREPO UNIT #: [id number]#: [id number] [address] [birth year] AGE: 53 SEX: M ATTEND: [...] softGenitourinary: no bladder distentionExtremities: no edemaMusculoskeletal: normal inspectionNeuro/DIRECTORY OPERATOR: alert, normal speechSkin: intact, no rashPsychiatry: [...] % (Auto) (14.0 - 32.0 %) 23.3 [place] % (Auto) (4.8 - 9.0 %) 7.7 Eos % (Auto) (0.3 - 3.7 %) 5.7 H Baso % (Auto) (0.0 - 2.0 %) 1.4 Neut # (Auto) (2.0 - 7.6 x10 3/uL) 5.16 Lymph # (Auto) (1.0 - 3.8 x10 3/uL) 1.99 [place] # (Auto) (0.1 - 0.8 x10 3/uL) [...] 0.00 Diagnosis, Assessment PlanConsultants: cardiology, cardiovascular surgery, critical/foot miter operator, hospitalist Free Text DxA P NotesFree text DxA P notes:Non-sustained V-tachy, on Amiodarone dripChest pain 2/2 aboveLife vest stopped firingTobacco abuseDiabetic Mellitus II with hyperglycemiaHx Left atrial clot (on Eliquis)Hx Diabetes Mellitus IIHx CAD PlanAdmit to [facility] CardiologyConsu Critical careContinous Telemetry monitoring - to [...] patient Nicotine patch but he declined.Pain control: [place] PRNDVT ppx: JAYLEN [place] [facility] [place]No acute cardiopulmonary process.Plan of care [...] likely for cabg- workup in progress- per chargeback specialist patient has been cleared to transfer out [...] chronic pain, wants to go home with [place] and morphine. Consult his painmanagement physician, Dr. Gill to adjust pain meds to ease disposition to home. 01/07/24bridging Coumadin with heparin -inr 1.2trending labs-inr in am Ischemic CM: continue metoprolol succinate, valsartan, Farxiga-cardiology following BP acceptable BS remains high, ssi adjustedPt has chronic pain, wants to go home with [place] and morphine. Consult his painmanagement physician, Dr. [...] Coumadin clinicDiscussed with pharmacy at 2111 RPT #:[id number] OF REPORTPRProgress ltng0132-86-11Q24:07:00G.ACPV69537526-9364WKAjoji able for patient fduuZJYKZJQXLXZTAL2869-58-32A19:11:30 [facility] 2024-01-08 10:31:00 [id number] 4w+atgNVNY6hD89RnIL2NgjiUZjzr w4pQucLuW3hzGdUUdjH2JzX90FC4009-83-58U81:31:00 [facility] ([facility])EP Progress NoteREPORT#:[id number] REPORT STATUS: SignedREPORT INITIALIZATION DATE:01/08/24 TIME: 1031 PATIENT: CHARAN RESTREPO UNIT #: [id number]#: [id number] ROOM/BED: 3396-1DOB: [birth year] AGE: 53 SEX: M [...] and rhythmRespiratory: no distressAbdomen: soft, non-tenderExtremities: moves allNeuro/DIRECTORY OPERATOR: alert, oriented X 3, normal gait, [...] INR (0.8 - 1.2) 1.9 H PTT ([place]) (25.0 - 39.5 Seconds) 67.3 H 66.0 [...] % (Auto) (14.0 - 32.0 %) 23.3 [place] % (Auto) (4.8 - 9.0 %) 7.7 Eos % (Auto) (0.3 - 3.7 %) 5.7 H Baso % (Auto) (0.0 - 2.0 %) 1.4 Neut # (Auto) (2.0 - 7.6 x10 3/uL) 5.16 Lymph # (Auto) (1.0 - 3.8 x10 3/uL) 1.99 [place] # (Auto) (0.1 - 0.8 x10 3/uL) [...] MG/DL) 215 H 136 H Coagulation PTT ([place]) (25.0 - 39.5 Seconds) 56.8 H Laboratory Tests 01/07 0330 Chemistry Magnesium (1.6 - 2.6 mg/dL) 1.92 Diagnosis, Assessment PlanFree Text A P:The patient is a 53 y.o male with medical history of CAD (PCI to prox and mid LAD in 02/2023), HTN, DM and HLD. He recently had LHC at [facility] due to frequent chest pain and was referred to come here for CABG. The patient was recently admitted to [facility] on 11/27/23 for CABG work-up and surgery was scheduled for 11/30/23 but cancelled due to LV thrombus. He was discharged on LifeVest, anticoagulant (eliquis), and planning for CABG in 2-3 months. ECHO on 11/28/23, LVEF was 30-34%. The patient reports went to [facility] in [place] because had frequent chest pain and LifeVest alarming occurred few times, deniesLifeVest shocks. He was found to have episodes of VT, started on Amiodarone bolus/drip, and transfered to [facility] on 12/27/23 for further evaluation. 1. CMP-ECHO (12/28/23): LVEF 25-29%-LIFEVEST in possession-recommend GDMT/LIFEVEST x3 mos.-ok to d/c from EP standpoint 2. NSVT-currently SR 60s-AA therapy, amiodarone 400mg bid + metop succ 25mg daily-no recurrence this admission 3. CAD-s/p PCI, 02/2023-s/p LHC; severe-s/p viability study; nonviable myocardium-per CTS, not a candidate for CABG 4. LV thrombus-s/p CTA heart-AC warfarin-INR 1.9 Consultants: cardiology, cardiovascular surgery, critical/foot miter operator, hospitalist at 1033 at 1110 RPT #:[id number] OF REPORTPRProgress crfv6617-53-07R16:31:00G.RLCR53838179-3642YDTepog able for patient tytjZVTHPRTBWDVATO7757-20-75W66:33:55 [facility] 2024-01-08 09:07:00 [id number] qUgPIyLN2Gdl/zAbQtksXpJArZm5y 3aemL6/niVebTBchNFO/b85GIvM7047-11-63T54:07:00 [facility] ([facility])Cardiology Progress NoteREPORT#:[id number] REPORT STATUS: SignedREPORT INITIALIZATION DATE:01/08/24 TIME: 906 PATIENT: CHARAN RESTREPO UNIT #: [id number]#: [id number] [address] [birth year] AGE: 53 SEX: M ATTEND: Jemal Young MDADM AUTHOR: Fiona Foster AGACNPREPT SERVICE DT/TIME: 01/08/24906* ALL edits or amendments must be made [...] 56 12 122/65 0.0 100 Room air 03/18 0953 60 13 128/62 88 96 PATIENT [...] assessment: normal capillary refill, no edemaMusculoskeletal: normal inspectionNeuro/DIRECTORY OPERATOR: alert, oriented X 3, normal speechSkin: dry, intact, normal colorPsychiatry: normal affect, normal judgment/insight, normal mood ResultsFindings/Data:Laboratory Tests 01/07 01/07 01/06 01/06 01/06 0709 0330 2025 1601 1213 Chemistry Sodium (134 - 147 [...] (1.6 - 2.6 mg/dL) 1.92 Laboratory Tests 01/070 1801 1214 Coagulation INR (0.8 - 1.2) 1.9 H PTT ([place]) (25.0 - 39.5 Seconds) 67.3 H 66.0 H 56.8 H PT Patient/Control Mix (9.3 - 12.9 SECONDS) 21.3 H Laboratory Tests 01/07 330 Hematology WBC (4.5 - 11.0 x10 3/uL) [...] % (Auto) (14.0 - 32.0 %) 23.3 Erie % (Auto) (4.8 - 9.0 %) 7.7 Eos % (Auto) (0.3 - 3.7 %) 5.7 H Baso % (Auto) (0.0 - 2.0 %) 1.4 Neut # (Auto) (2.0 - 7.6 x10 3/uL) 5.16 Lymph # (Auto) (1.0 - 3.8 x10 3/uL) 1.99 Erie # (Auto) (0.1 - 0.8 x10 3/uL) [...] making by Dr. Rutherford. at 1218 RPT #:[id number] OF REPORTPRProgress ftlx9732-15-91M60:07:00G.JWXV16916237-3931EGYjgqy able for patient dqlrCHLOJAKUGQEFHG1159-30-81U88:18:55 [facility] 2024-01-08 08:37:00 [id number] t677FT+3WtMHlck4VNSsOa/euMCNn mEfL0ZZ1BEQh+QdadrMPUJR+1Mc2523-08-30A73:37:00 [facility] Prog.Note-AnticoagREPORT#:[id number] REPORT STATUS: SignedREPORT INITIALIZATION DATE:01/08/24 TIME: 0837 PATIENT: CHARAN RESTREPO UNIT #: [id number]#: [id number] [address] [birth year] AGE: 53 SEX: M ATTEND: [...] at 0700 01/07 0700 01/06 1900 01/06 0700 01/05 1900 01/05 01/04 0700 1900Intake 300 240TotalOutput 750TotalBalance -450 240 Intake, 300 240OralOutput, 750UrinePatient 81.8 kg 82.5 kg 80.5 kgWeightWeight Standing Standing Standing scale scale scaleMeasurementMethod 72 Hour I O Total 01/07 0701/06 0701/05 0700 Intake Total 300 240 Output [...] years, and chronic pain who presented to [facility] with complaints of life vest alarming and [...] will continue to monitor. at 0850 RPT #:[id number] OF REPORTPRProgress nxyu7891-92-76P64:37:00G.NFRS21660918-4789ZGDktuc able for patient wgyjULRJEXDPZJCLTT8791-85-25W38:50:31 [facility] 2024-01-08 05:49:00 [id number] Zj9QF5z1pZeORpeEqT45OaKkUFzNg wVzq3YAInjRneEikYSE+0pqnh/Z6217-07-57S36:49:00 [facility])Cardiothoracic Surgery ProgREPORT#:[id number] REPORT STATUS: SignedREPORT INITIALIZATION DATE:01/08/24 TIME: 548 PATIENT: CHARAN RESTREPO UNIT #: [id number]#: [id number] ROOM/BED: 3396-1DOB: [birth year] AGE: 53 SEX: M [...] Result Date Time Pulse Ox 99 01/07 042 Pulse 61 01/07 0424 Resp 11 01/07 [...] full range of motion, painless range of motionNeuro/DIRECTORY OPERATOR: alert, CNII-XII intactSkin: dry, intactPsychiatry: normal affect, normal mood Diagnosis, Assessment PlanHospital course to date:This is a 53-year-old gentleman with past medical history of coronary artery disease status post previous PCI in the past, hypertension, diabetes, hyperlipidemia, smoker 1 ppd/40 years, and chronic pain who presented to [facility] with complaints of life vest alarming and V-tach. Patient denies any shocks. He was started on an amiodarone drip and transferred to [facility] for further evaluation. He previously underwent left heart catheterization with [employer] about a monthago and was referred for bypass surgery. He was taken to the operating room where during the intraoperative ANAND there is some suspicion for thrombus, after talking with the patient's manager infusion we decided to cancel surgery due to [...] to [place] patient home when okay with christian science nurse: cardiology, cardiovascular surgery, critical/foot miter operator, hospitalist at 0905 at 0948 [facility] #:[id number] OF REPORTPRProgress jasd8836-85-30E40:49:00G.AYPQ89259619-9700PSOzmvp able for patient herpMPMENNNDTMHTII8944-41-99L46:06:15 [facility] 2024-01-07 16:51:00 [id number] kE3RvKL2OmpgTETPsD2iOsSWSHHjw 7dJ4osv9MfwfCqrEXR1McNpZOWS2911-51-98L05:51:00 [facility] ([facility])Cardiology Progress NoteREPORT#:[id number] REPORT STATUS: SignedREPORT INITIALIZATION DATE:01/07/24 TIME: 1650 PATIENT: CHARAN RESTREPO UNIT #: [id number]#: [id number] ROOM/BED: Dominique3345-1DOB: [birth year] AGE: 53 SEX: M ATTEND: Jac [...] assessment: normal capillary refill, no edemaMusculoskeletal: normal inspectionNeuro/DIRECTORY OPERATOR: alert, oriented X 3, normal speechSkin: [...] 2031Coagulation INR (0.8 - 1.2) 1.2 PTT ([place]) (25.0 - 39.5 Seconds) 56.8 H 78.6 [...] % (Auto) (14.0 - 32.0 %) 24.1 Erie % (Auto) (4.8 - 9.0 %) 7.4 Eos % (Auto) (0.3 - 3.7 %) 5.9 H Baso % (Auto) (0.0 - 2.0 %) 1.2 Neut # (Auto) (2.0 - 7.6 x10 3/uL) 4.65 Lymph # (Auto) (1.0 - 3.8 x10 3/uL) 1.87 Erie # (Auto) (0.1 - 0.8 x10 3/uL) [...] making by Dr. Rutherford. at 1712 RPT #:[id number] OF REPORTPRProgress sdne4389-66-39U94:51:00G.MKLT08174989-5130KMZvrii able for patient hgovEZDLCRZVKFROYW8188-09-18N47:13:18 [facility] 2024-01-07 15:21:00 [id number] EFHj65ihKQF4ICzLXQusW23czDEeO MnrExMaYyUdIEcm1VkIwxQna9jT2447-82-16L88:21:00 [facility] ([facility])EP Progress NoteREPORT#:[id number] REPORT STATUS: SignedREPORT INITIALIZATION DATE:01/07/24 TIME: 152 PATIENT: CHARAN RESTREPO UNIT #: [id number]#: [id number] [address] [birth year] AGE: 53 SEX: M ATTEND: [...] and rhythmRespiratory: no distressAbdomen: soft, non-tenderExtremities: moves allNeuro/DIRECTORY OPERATOR: alert, oriented X 3, normal gait, normal speechSkin: dryFindings/Data:Laboratory Tests: 01/06 01/06 01/06 01/06 1214 1213 0725 0400Chemistry POC Glucose (70 [...] Magnesium (1.6 - 2.6 mg/dL) 1.98Coagulation PTT ([place]) (25.0 - 39.5 Seconds) 78.6 H 71.0 [...] % (Auto) (14.0 - 32.0 %) 24.1 Erie % (Auto) (4.8 - 9.0 %) 7.4 Eos % (Auto) (0.3 - 3.7 %) 5.9 H Baso % (Auto) (0.0 - 2.0 %) 1.2 Neut # (Auto) (2.0 - 7.6 x10 3/uL) 4.65 Lymph # (Auto) (1.0 - 3.8 x10 3/uL) 1.87 Erie # (Auto) (0.1 - 0.8 x10 3/uL) [...] and HLD. He recently had LHC at [facility] due to frequent chest pain and was referred to come here for CABG. The patient was recently admitted to [facility] on 11/27/23 for CABG work-up and surgery was scheduled for 11/30/23 but cancelled due to LV thrombus. He was discharged on LifeVest, anticoagulant (eliquis), and planning for CABG in 2-3 months. ECHO on 11/28/23, LVEF was 30-34%. The patient reports went to [facility] in [place] because had frequent chest pain and LifeVest alarming occurred few times, deniesLifeVest shocks. He was found to have episodes of VT, started on Amiodarone bolus/drip, and transfered to [facility] on 12/27/23 for further evaluation. 1. CMP-ECHO [...] IV gtt-INR 1.2 Consultants: cardiology, cardiovascular surgery, critical/foot miter operator, hospitalist at 1030 at 1119 RPT #:[id number] OF REPORTPRProgress kojm7314-27-19C27:21:00G.TQDI09200568-7627HYEnphe able for patient bcksEYACDANPWWMATO4446-32-20Y99:31:04 [facility] 2024-01-07 13:07:00 [id number] jUPFlMQPaUDT7CsHdgFBbXO8uh1W/ /htmT/tGDQ11PDacUUCAcOa5Yxp6747-74-76Q45:07:00 [facility] HospitalCardiothoracic Surgery ProgREPORT#:[id number] REPORT STATUS: SignedREPORT INITIALIZATION DATE:01/07/24 TIME: 1306 PATIENT: CHARAN RESTREPO UNIT #: [id number]#: [id number] [address]OB: [birth year] AGE: 53 SEX: M ATTEND: Jac [...] full range of motion, painless range of motionNeuro/DIRECTORY OPERATOR: alert, CNII-XII intactSkin: dry, intactPsychiatry: normal affect, normal mood Diagnosis, Assessment PlanHospital course to date:This is a 53-year-old gentleman with past medical history of coronary artery disease status post previous PCI in the past, hypertension, diabetes, hyperlipidemia, smoker 1 ppd/40 years, and chronic pain who presented to [facility] with complaints of life vest alarming and V-tach. Patient denies any shocks. He was started on an amiodarone drip and transferred to [facility] for further evaluation. He previously underwent left heart catheterization with [employer] about a monthago and was referred for bypass surgery. He was taken to the operating room where during the intraoperative ANAND there is some suspicion for thrombus, after talking with the patient's manager infusion we decided to cancel surgery due to [...] need therapeutic INR.Patient seen and examined Dr. aMyfield. Outpatient cardiac MRI can be arranged by christian science nurse: cardiology, cardiovascular surgery, critical/foot miter operator, hospitalist at 1309 at 1959 RPT #:[id number] OF REPORTPRProgress wqvc0752-62-35A46:07:00G.PYQL82813056-3936GSAuckn able for patient sdqfEEHUIVLLGLHYHZ6630-94-17B82:10:15 [facility] 2024-01-07 10:15:00 [id number] +aAflURkYb10vv3jA8J+w9oYyFspM +T3gZOwex1TYsj3ZOfghJYwDvlO8797-34-62Q48:15:00 [facility]Ph[facility] Prog.Note-AnticoagREPORT#:[id number] REPORT STATUS: SignedREPORT INITIALIZATION DATE:01/07/24 TIME: 1015 PATIENT: CHARAN RESTREPO UNIT #: [id number]#: [id number] [address] [birth year] AGE: 53 SEX: M ATTEND: Jac Marsh [facility] AUTHOR: Fei Faith RPhREPT SERVICE DT/TIME: 01/07/24 [...] Hour I O Total 01/06 0700 01/05 0700 01/04 0700 Intake Total 240 1058.00 Output Total [...] years, and chronic pain who presented to [facility] with complaints of life vest alarming and [...] * Pharmacy will continue to monitor. at [facility] RPT #:[id number] OF REPORTPRProgress mwuz1100-18-10I52:15:00G.INSN99455676-5852RPIyozl able for patient egbtLRJNOFMMKLYWWK3379-82-09M61:24:48 [facility] 2024-01-07 09:10:00 [id number] BE88VIPeFfIcXTiA3dF5TjSqFaBeg Z2WO13RVafH9IhUFx4UhDvePUO84098-73-14F38:10:00 [facility] HospitalHospitalist Progress NoteREPORT#:[id number] REPORT STATUS: SignedREPORT INITIALIZATION DATE:01/07/24 TIME: 909 PATIENT: CHARAN RESTREPO UNIT #: [id number]#: [id number] [address] [birth year] AGE: 53 SEX: M ATTEND: Jac Marsh AUTHOR: Hortencia Stevenson SERVICE DT/TIME: 01/07/24 0910* ALL edits or amendments must be made on the electronic/computer document * SubjectiveChief complaint:Pt wants morphine and [place] to go home with. His Pain Management doc isDr. Jairo. Review of SystemsAll systems rev neg: except [...] softGenitourinary: no bladder distentionExtremities: no edemaMusculoskeletal: normal inspectionNeuro/DIRECTORY OPERATOR: alert, normal speechSkin: intact, no rashPsychiatry: [...] Coagulation INR (0.8 - 1.2) 1.2 PTT ([place]) (25.0 - 39.5 Seconds) 78.6 H 71.0 [...] % (Auto) (14.0 - 32.0 %) 24.1 E[place] % (Auto) (4.8 - 9.0 %) 7.4 Eos % (Auto) (0.3 - 3.7 %) 5.9 H Baso % (Auto) (0.0 - 2.0 %) 1.2 Neut # (Auto) (2.0 - 7.6 x10 3/uL) 4.65 Lymph # (Auto) (1.0 - 3.8 x10 3/uL) 1.87 [place] # (Auto) (0.1 - 0.8 x10 3/uL) [...] stable Diagnosis, Assessment PlanConsultants: cardiology, cardiovascular surgery, critical/foot miter operator, hospitalist Free Text DxA P NotesFree text DxA P notes:Non-sustained V-tachy, on Amiodarone dripChest pain 2/2 aboveLife vest stopped firingTobacco abuseDiabetic Mellitus II with hyperglycemiaHx Left atrial clot (on Eliquis)Hx Diabetes Mellitus IIHx CAD [facility]Ad[facility]iologyConsult Critical careContinous Telemetry monitoring - [...] patient Nicotine patch but he declined.Pain control: [place] PRNDVT ppx: [place] [facility] [place]No acute cardiopulmonary process.Plan of care [...] likely for cabg- workup in progress- per chargeback specialist patient has been cleared to transfer out [...] chronic pain, wants to go home with [place] and morphine. Consult his painmanagement physician, Dr. Gill to adjust pain meds to ease disposition to home. 01/07/24bridging Coumadin with heparin -inr 1.2trending labs-inr in am Ischemic CM: continue metoprolol succinate, valsartan, Farxiga-cardiology following BP acceptable BS remains high, ssi adjustedPt has chronic pain, wants to go home with [place] and morphine. Consult his painmanagement physician, Dr. Gill to adjust pain meds to ease disposition to home. Dispo: therapeutic inr 2-3once cardiac thrombus eliminated. Patient will need follow up for CABG as outpt with Dr. [place] at 1034 RPT #:[id number] OF REPORTPRProgress dnmx3920-10-07X05:10:00G.FPCJ80918751-0630WZWrtik able for patient ucmkXEZGEGAYHQIEPC6406-59-35W85:35:10 [facility] 2024-01-06 16:00:00 [id number] tgyyILbfg0jWHEq1TsegG+tViIi4I AhsemJwCGDjX0lg4tnvOCUcK+7T4677-35-25K57:00:00 [facility] HospitalHospitalist Progress NoteREPORT#:[id number] REPORT STATUS: SignedREPORT INITIALIZATION DATE:01/06/24 TIME: 1600 PATIENT: CHARAN RESTREPO UNIT #: [id number]#: [id number] [address] [birth year] AGE: 53 SEX: M ATTEND: Marycruz Villalba [facility] AUTHOR: Jane Barrios DOREPT SERVICE DT/TIME: 01/06/24 1600* ALL edits or amendments must be made on the electronic/computer document * SubjectiveChief complaint:Pt wants morphine and [place] to go home with. His Pain Management doc is Dr. Gill. Objective GeneralVS/I O:Vital Signs: Date Time Temp Pulse Resp B/P B/P Pulse O2 O2 Flow FiO2 Mean Ox Delivery Rate 01/05 0727 97.7 60 14 119/57 0.0 97 Room [...] softGenitourinary: no bladder distentionExtremities: no edemaMusculoskeletal: normal inspectionNeuro/DIRECTORY OPERATOR: alert, normal speechSkin: intact, no rashPsychiatry: [...] % (Auto) (14.0 - 32.0 %) 25.4 Erie % (Auto) (4.8 - 9.0 %) 8.9 Eos % (Auto) (0.3 - 3.7 %) 6.7 H Baso % (Auto) (0.0 - 2.0 %) 1.3 Neut # (Auto) (2.0 - 7.6 x10 3/uL) 4.46 Lymph # (Auto) (1.0 - 3.8 x10 3/uL) 2.01 [place] # (Auto) (0.1 - 0.8 x10 3/uL) [...] 0.00 Diagnosis, Assessment PlanConsultants: cardiology, cardiovascular surgery, critical/foot miter operator, hospitalist Free Text DxA P NotesFree text DxA P notes:Non-sustained V-tachy, on Amiodarone dripChest pain 2/2 aboveLife vest stopped firingTobacco abuseDiabetic Mellitus II with hyperglycemiaHx Left atrial clot (on Eliquis)Hx Diabetes Mellitus IIHx CAD [facility]Ad[facility] CardiologyConsult Critical careContinous Telemetry monitoring - to [...] patient Nicotine patch but he declined.Pain control: [place] PRNDVT ppx: JAY[place] [facility] [place]No acute cardiopulmonary process.Plan of care [...] likely for cabg- workup in progress- per chargeback specialist patient has been cleared to transfer out [...] chronic pain, wants to go home with [place] and morphine. Consult his painmanagement physician, Dr. Gill to adjust pain meds to ease disposition to home. at 1604 RPT #:[id number] OF REPORTPRProgress bxqi6339-09-54Y91:00:00G.XCLU06989222-6373RHBmszo able for patient ovovXXRWRMLZSVEPMI6678-89-11D04:04:24 [facility] 2024-01-06 14:49:00 [id number] uUH6tDSMwoUEgJJC6ECQoFEkark6u XhNlu0RGdElkojn+1mO3N3JUjgQ9357-47-66O14:49:00 [facility] HospitalPharmacy Prog.Note-AnticoagREPORT#:[id number] REPORT STATUS: SignedREPORT INITIALIZATION DATE:01/06/24 TIME: 1448 PATIENT: CHARAN RESTREPO UNIT #: [id number]#: [id number] [address] [birth year] AGE: 53 SEX: M ATTEND: Marycruz Villalba [facility] AUTHOR: Coco Rabago [facility] ResidentREPT SERVICE DT/TIME: 01/06/24 1449* ALL edits [...] years, and chronic pain who presented to [facility] with complaints of life vest alarming and [...] INR ordered until 01/13 at 1501 RPT #:[id number] OF REPORTPRProgress zmsr3035-08-42N25:49:00G.QBYM92394724-5990EHKkciv able for patient itrdYBMVLDCCDDLXBC8988-07-44K25:01:36 [facility] 2024-01-06 13:32:00 [id number]/+c2pYr cPFsCdXszDX3Y87bRV33UtLtRYZMD lSS6K0wHkfAhgGnLht3+31qIuNx1122-23-55P08:32:00 [facility] HospitalCardiothoracic Surgery ProgREPORT#:[id number] REPORT STATUS: SignedREPORT INITIALIZATION DATE:01/06/24 TIME: 1331 PATIENT: CHARAN RESTREPO UNIT #: [id number]#: [id number] [address] [birth year] AGE: 53 SEX: M ATTEND: Jac Marsh MDA AUTHOR: Dia Baird PhysicREPT SERVICE DT/TIME: 01/06/24 [...] full range of motion, painless range of motionNeuro/DIRECTORY OPERATOR: alert, CNII-XII intactSkin: dry, intactPsychiatry: normal affect, normal mood Diagnosis, Assessment PlanHospital course to date:This is a 53-year-old gentleman with past medical history of coronary artery disease status post previous PCI in the past, hypertension, diabetes, hyperlipidemia, smoker 1 ppd/40 years, and chronic pain who presented to [facility] with complaints of life vest alarming and V-tach. Patient denies any shocks. He was started on an amiodarone drip and transferred to [facility] for further evaluation. He previously underwent left heart catheterization with [employer] about a monthago and was referred for bypass surgery. He was taken to the operating room where during the intraoperative ANAND there is some suspicion for thrombus, after talking with the patient's manager infusion we decided to cancel surgery due to [...] outpatient cardiac MRI Consultants: cardiology, cardiovascular surgery, critical/foot miter operator, hospitalist at 1333 at 2003 RPT #:[id number] OF REPORTPRProgress dbvg6476-83-39I08:32:00G.SNUG54571204-9950AFYgmrg able for patient fgesYBYBDCCSBLMCPO8026-52-31C21:33:44 [facility] 2024-01-06 10:37:00 [id number] f9157zZ1TqeJq0nsNTYDhXrnRZHGt dMFWns6s/KcX4cIMEh016Yv+S8x5840-23-84S74:37:00 [facility] ([facility])Cardiology Progress NoteREPORT#:[id number] REPORT STATUS: SignedREPORT INITIALIZATION DATE:01/06/24 TIME: 1037 PATIENT: CHARAN RESTREPO UNIT #: [id number]#: [id number] [address] [birth year] AGE: 53 SEX: M ATTEND: [...] FiO2 Mean Ox Delivery Rate 01/05 07 36.5 60 14 119/57 0.0 97 Room [...] assessment: normal capillary refill, no edemaMusculoskeletal: normal inspectionNeuro/DIRECTORY OPERATOR: alert, oriented X 3, normal speechSkin: [...] % (Auto) (14.0 - 32.0 %) 25.4 [place] % (Auto) (4.8 - 9.0 %) 8.9 Eos % (Auto) (0.3 - 3.7 %) 6.7 H Baso % (Auto) (0.0 - 2.0 %) 1.3 Neut # (Auto) (2.0 - 7.6 x10 3/uL) 4.46 Lymph # (Auto) (1.0 - 3.8 x10 3/uL) 2.01 [place] # (Auto) (0.1 - 0.8 x10 3/uL) [...] plan a s above at 1037 RPT #:[id number] OF REPORTPRProgress qhix3974-01-68J59:37:00G.XFAF79223177-3998JUYrxmp able for patient pradBYQQCXMELQGRSG9080-41-46B35:38:18 [facility] 2024-01-05 15:41:00 [id number] MbpmaAeWuSi8CHP6MP3Bvs6mQkcCq Tmg+TJJ1tsxF1pmNBn13izt44cN1948-85-90M64:41:00 [facility])Pharmacy Prog.Note-AnticoagREPORT#:[id number] REPORT STATUS: SignedREPORT INITIALIZATION DATE:01/05/24 TIME: 154 PATIENT: CHARAN RESTREPO UNIT #: [id number]#: [id number] [address] [birth year] AGE: 53 SEX: M ATTEND: [...] years, and chronic pain who presented to [facility] with complaints of life vest alarming and [...] INR ordered until 01/13 at 1549 RPT #:[id number] OF REPORTPRProgress vuhj3018-47-45J12:41:00G.EASU69150212-6575FQXfvmo able for patient jtciYUCTSGUUBEGNOJ8214-98-63D42:50:08 [facility] 2024-01-05 13:54:00 [id number] CM09M0O54miAsT4p7e6Ztph8v8jjm GBlVhLuhBBtCdJnC/GMnEDs4tKm1562-05-35Y24:54:00 [facility] Centerist Progress NoteREPORT#:[id number] REPORT STATUS: SignedREPORT INITIALIZATION DATE:01/05/24 TIME: 135 PATIENT: CHARAN RESTREPO UNIT #: [id number]#: [id number] [place] [facility]DOB: [birth year] AGE: 53 SEX: M ATTEND: Marycruz Villalba AUTHOR: Jane BarriosEPT SERVICE DT/TIME: 01/05/24 1354* ALL edits or [...] softGenitourinary: no bladder distentionExtremities: no edemaMusculoskeletal: normal inspectionNeuro/DIRECTORY OPERATOR: alert, normal speechSkin: intact, no rashPsychiatry: [...] % (Auto) (14.0 - 32.0 %) 25.1 [place] % (Auto) (4.8 - 9.0 %) 7.7 Eos % (Auto) (0.3 - 3.7 %) 5.8 H Baso % (Auto) (0.0 - 2.0 %) 1.3 Neut # (Auto) (2.0 - 7.6 x10 3/uL) 4.58 Lymph # (Auto) (1.0 - 3.8 x10 3/uL) 1.95 [place] # (Auto) (0.1 - 0.8 x10 3/uL) [...] 0.00 Diagnosis, Assessment PlanConsultants: cardiology, cardiovascular surgery, critical/foot miter operator, hospitalist Free Text DxA P NotesFree text DxA P notes:Non-sustained V-tachy, on Amiodarone dripChest pain 2/2 aboveLife vest stopped firingTobacco abuseDiabetic Mellitus II with hyperglycemiaHx Left atrial clot (on Eliquis)Hx Diabetes Mellitus IIHx CAD PlanAd[facility] CardiologyConsult Critical careContinous Telemetry monitoring - to [...] patient Nicotine patch but he declined.Pain control: [place] PRNDVT ppx: [place] [facility] [place]:No acute cardiopulmonary process.Plan of care [...] likely for cabg- workup in progress- per chargeback specialist patient has been cleared to transfer out [...] cleared by CV surgery at 1357 RPT #:[id number] OF REPORTPRProgress jqht1045-01-00B96:54:00G.PVMM59705736-2399XLPyfaz able for patient tzleVVMRHQNGEQZJOK3116-34-15G91:57:35 [facility] 13:24:00 [id number] GNYb6vTdGJSnqTfgsEvSsavjrOq3n 5wpwy3UeKOz6ilFyeGk1k/dDE556127-89-76Y86:24:00 [facility] ([facility])Cardiothoracic Surgery ProgREPORT#:[id number] REPORT STATUS: SignedREPORT INITIALIZATION DATE:01/05/24 TIME: 1323 PATIENT: CHARAN RESTREPO UNIT #: [id number]#: [id number] [address] [birth year] AGE: 53 SEX: M ATTEND: [...] full range of motion, painless range of motionNeuro/DIRECTORY OPERATOR: alert, CNII-XII intactSkin: dry, intactPsychiatry: normal affect, normal mood Diagnosis, Assessment PlanHospital course to date:This is a 53-year-old gentleman with past medical history of coronary artery disease status post previous PCI in the past, hypertension, diabetes, hyperlipidemia, smoker 1 ppd/40 years, and chronic pain who presented to [facility] with complaints of life vest alarming and V-tach. Patient denies any shocks. He was started on an amiodarone drip and transferred to [facility] for further evaluation. He previously underwent left heart catheterization with [employer] about a monthago and was referred for bypass surgery. He was taken to the operating room where during the intraoperative ANAND there is some suspicion for thrombus, after talking with the patient's manager infusion we decided to cancel surgery due to [...] all questions answered. Consultants: cardiology, cardiovascular surgery, critical/foot miter operator, hospitalist at 1329 at 0716 RPT #:[id number] OF REPORTPRProgress zfkr4538-05-23I18:24:00G.KQCA75243860-5831OOCxsdh able for patient tmvlXVADCNFHUIPFGV9558-79-67K26:30:18 [facility] 2024-01-05 11:06:00 [id number] Tst1aFQhTswUurIdvWDORjsGcsrki Dh6J3KLDu10SId9xOnOVqAvKgUe7592-69-51E67:06:00 [facility] ([facility])Cardiology Progress NoteREPORT#:[id number] REPORT STATUS: SignedREPORT INITIALIZATION DATE:01/05/24 TIME: 1106 PATIENT: CHARAN RESTREPO UNIT #: [id number]#: [id number] ROOM/BED: [address]: [address] AGE: 53 SEX: M ATTEND: DeejayMarycruz MDADM AUTHOR: Manuel Cintron MDREPT SERVICE DT/TIME: [...] assessment: normal capillary refill, no edemaMusculoskeletal: normal inspectionNeuro/DIRECTORY OPERATOR: alert, oriented X 3, normal speechSkin: [...] % (Auto) (14.0 - 32.0 %) 25.1 [place] % (Auto) (4.8 - 9.0 %) 7.7 Eos % (Auto) (0.3 - 3.7 %) 5.8 H Baso % (Auto) (0.0 - 2.0 %) 1.3 Neut # (Auto) (2.0 - 7.6 x10 3/uL) 4.58 Lymph # (Auto) (1.0 - 3.8 x10 3/uL) 1.95 [place] # (Auto) (0.1 - 0.8 x10 3/uL) [...] plan stable plan a s above at [facility] RPT #:[id number] OF REPORTPRProgress ghyl4381-53-35C44:06:00G.DNTH84218759-0103WMDlcqg able for patient hrblQLYCWFHNEHUNGP2145-38-16Z39:37:17 [facility] 2024-01-04 19:25:00 [id number] ELNPj+eayzpTBQM6m+T48YmhjRadf NXRrL60ZwCwxtuNilvvEz2v5s7E0045-42-63P66:25:00 [facility] HospitalCardi[facility] ProgREPORT#:[id number] REPORT STATUS: SignedREPORT INITIALIZATION DATE:01/04/24 TIME: 1924 PATIENT: CHARAN RESTREPO UNIT #: [id number]#: [id number] [address] [birth year] AGE: 53 SEX: M ATTEND: Marycruz Villalba [facility] AUTHOR: Papo Mayfield MDREPT SERVICE DT/TIME: 01/04/241924* [...] Temp 36.3 01/03 1906 Pulse 57 01/03 1906 Resp 17 01/03 190 FiO2 21 12/30 [...] full range of motion, painless range of motionNeuro/DIRECTORY OPERATOR: alert, CNII-XII intactSkin: dry, intactPsychiatry: normal [...] 01/03 01/03 01/03 01/02 1647 1142 0820 0378 2005Chemistry Sodium (134 - 147 mEq/L) 134 [...] % (Auto) (14.0 - 32.0 %) 25.4 Erie % (Auto) (4.8 - 9.0 %) 8.0 Eos % (Auto) (0.3 - 3.7 %) 5.7 H Baso % (Auto) (0.0 - 2.0 %) 1.1 Neut # (Auto) (2.0 - 7.6 x10 3/uL) 4.86 Lymph # (Auto) (1.0 - 3.8 x10 3/uL) 2.10 Erie # (Auto) (0.1 - 0.8 x10 3/uL) [...] years, and chronic pain who presented to [facility] with complaints of life vest alarming and V-tach. Patient denies any shocks. He was started on an amiodarone drip and transferred to [facility] for further evaluation. He previously underwent left heart catheterization with [employer] about a monthago and was referred for bypass surgery. He was taken to the operating room where during the intraoperative ANAND there is some suspicion for thrombus, after talking with the patient's manager infusion we decided to cancel surgery due to [...] questions were answered Consultants: cardiology, cardiovascular surgery, critical/foot miter operator, hospitalist at 0732 RPT #:[id number] OF REPORTPRProgress foac7233-46-13P89:25:00G.IPLA41250030-7468ZKRspsj able for patient urklZATNIBHNPFERFN4589-69-27Z10:33:16 [facility] 2024-01-04 15:25:00 [id number]+G0d5fLe mpqyJ/Z3xCP5/m7AmEmpFDiqUA4dN J+DVnKwp9K49UBwQy2Ti3u6G4Ha9217-72-66S73:25:00 [facility] ([facility]ITALCardiology Progress NoteREPORT#:[id number] REPORT STATUS: SignedREPORT INITIALIZATION DATE:01/04/24 TIME: 1525 PATIENT: CHARAN RESTERPO UNIT #: [id number]#: [id number] [address] [birth year] AGE: 53 SEX: M ATTEND: Marycruz Villalba [facility] AUTHOR: Fiona Foster AGACNPREPT SERVICE DT/TIME: 01/04/24 1525* ALL edits or amendments must be made [...] assessment: normal capillary refill, no edemaMusculoskeletal: normal inspectionNeuro/DIRECTORY OPERATOR: alert, oriented X 3, normal speechSkin: dry, intact, normal colorPsychiatry: normal affect, normal judgment/insight, normal mood ResultsFindings/Data:Laboratory Tests 01/03 01/03 01/03 01/02 1142 0820 2781 2004 Chemistry Sodium (134 - 147 mEq/L) [...] 1.79 Laboratory Tests 01/03 0446 Coagulation PTT ([place]) (25.0 - 39.5 Seconds) 66.1 H Laboratory [...] % (Auto) (14.0 - 32.0 %) 25.4 Erie % (Auto) (4.8 - 9.0 %) 8.0 Eos % (Auto) (0.3 - 3.7 %) 5.7 H Baso % (Auto) (0.0 - 2.0 %) 1.1 Neut # (Auto) (2.0 - 7.6 x10 3/uL) 4.86 Lymph # (Auto) (1.0 - 3.8 x10 3/uL) 2.10 Erie # (Auto) (0.1 - 0.8 x10 3/uL) [...] Medical decision making by [facility] Iqbal. at [facility] RPT #:[id number] OF REPORTPRProgress ufga7709-24-68W87:25:00G.LJCH25838256-2495YRZrgyo able for patient tuiqTRRXZRNJBEQJNQ4590-46-27D06:52:32 [facility] 2024-01-04 13:16:00 [id number] 9SSUH7NumunpJIM/I/pqrxI6ONG+A Y9r+NShRykx+tYG9tgoOrf4y4255893-46-25O69:16:00 [facility] HospitalHospitalist Progress NoteREPORT#:[id number] REPORT STATUS: SignedREPORT INITIALIZATION DATE:01/04/24 TIME: 1315 PATIENT: CHARAN RESTREPO UNIT #: [id number]#: [id number] [address] [birth year] AGE: 53 SEX: M ATTEND: Marycruz Villalba [facility] AUTHOR: Ray,Jane M DOREPT SERVICE DT/TIME: 01/04/24 [...] softGenitourinary: no bladder distentionExtremities: no edemaMusculoskeletal: normal inspectionNeuro/DIRECTORY OPERATOR: alert, normal speechSkin: intact, no rashPsychiatry: [...] - 2.6 mg/dL) 1.79 Laboratory Tests 01/03 7546 Coagulation PTT ([place]) (25.0 - 39.5 Seconds) 66.1 H Laboratory Tests 01/03 5148 Hematology WBC (4.5 - 11.0 x10 3/uL) [...] % (Auto) (14.0 - 32.0 %) 25.4 Erie % (Auto) (4.8 - 9.0 %) 8.0 Eos % (Auto) (0.3 - 3.7 %) 5.7 H Baso % (Auto) (0.0 - 2.0 %) 1.1 Neut # (Auto) (2.0 - 7.6 x10 3/uL) 4.86 Lymph # (Auto) (1.0 - 3.8 x10 3/uL) 2.10 Erie # (Auto) (0.1 - 0.8 x10 3/uL) [...] 0.00 Diagnosis, Assessment PlanConsultants: cardiology, cardiovascular surgery, critical/foot miter operator, hospitalist Free Text DxA P NotesFree text DxA P notes:Non-sustained V-tachy, on Amiodarone dripChest pain 2/2 aboveLife vest stopped firingTobacco abuseDiabetic Mellitus II with hyperglycemiaHx Left atrial clot (on Eliquis)Hx Diabetes Mellitus IIHx CAD [facility]Ad[facility] CardiologyConsult Critical careContinous Telemetry monitoring - to [...] patient Nicotine patch but he declined.[place]: [place] PRNDVT ppx[place] [facility] [place]No acute cardiopulmonary process.Plan of care [...] likely for cabg- workup in progress- per chargeback specialist patient has been cleared to transfer out [...] for tighter BS control at 1319 RPT #:[id number] OF REPORTPRProgress lsxt5190-29-63H85:16:00G.YUTD86692981-3851JXUeagq able for patient yoyfEEEDRWEINCRRFZ9384-99-21V06:19:09 [facility] 2024-01-03 15:17:00 [id number] 1UjDdIFIbP2r1ka/Px9ORNUxPXMFc yty/7vi/xZnqnwnu7RDbKhmLcZ/0860-69-01O05:17:00 [facility] ([facility]ITALCardiology Progress NoteREPORT#:[id number] REPORT STATUS: SignedREPORT INITIALIZATION DATE:01/03/24 TIME: 1517 PATIENT: CHARAN RESTREPO UNIT #: [id number]#: [id number] [place] [facility]DOB: [birth year] AGE: 53 SEX: M ATTEND: Marycruz Villalba [facility] AUTHOR: Fiona FosterCNPREPT SERVICE DT/TIME: 01/03/24 1517* [...] assessment: normal capillary refill, no edemaMusculoskeletal: normal inspectionNeuro/DIRECTORY OPERATOR: alert, oriented X 3, normal speechSkin: [...] % (Auto) (14.0 - 32.0 %) 27.3 Erie % (Auto) (4.8 - 9.0 %) 8.5 Eos % (Auto) (0.3 - 3.7 %) 4.9 H Baso % (Auto) (0.0 - 2.0 %) 1.0 Neut # (Auto) (2.0 - 7.6 x10 3/uL) 4.70 Lymph # (Auto) (1.0 - 3.8 x10 3/uL) 2.23 Erie # (Auto) (0.1 - 0.8 x10 3/uL) [...] making by Dr. Iqbal. at 2138 RPT #:[id number] OF REPORTPRProgress nitr6924-45-84Q35:17:00G.VQVZ47729227-4630BQZksmd able for patient dxpaJKMECNLWTACGNA6434-25-09P54:53:25 [facility] 2024-01-03 15:07:00 [id number] cRUWqpYcQSug07MyhEIAS3o5iO++W lG3oISAe8HZJcCadyCYphGkX7dI7375-85-71V39:07:00 [facility] HospitalHospitalist Progress NoteREPORT#:[id number] REPORT STATUS: SignedREPORT INITIALIZATION DATE:01/03/24 TIME: 1507 PATIENT: CHARAN RESTREPO UNIT #: [id number]#: [id number] [address] [birth year] AGE: 53 SEX: M ATTEND: Marycruz Villalba [facility] AUTHOR: Jane Barrios DOREPT SERVICE DT/TIME: 01/03/24 1507* ALL edits [...] softGenitourinary: no bladder distentionExtremities: no edemaMusculoskeletal: normal inspectionNeuro/DIRECTORY OPERATOR: alert, normal speechSkin: intact, no rashPsychiatry: [...] % (Auto) (14.0 - 32.0 %) 27.3 Erie % (Auto) (4.8 - 9.0 %) 8.5 Eos % (Auto) (0.3 - 3.7 %) 4.9 H Baso % (Auto) (0.0 - 2.0 %) 1.0 Neut # (Auto) (2.0 - 7.6 x10 3/uL) 4.70 Lymph # (Auto) (1.0 - 3.8 x10 3/uL) 2.23 Erie # (Auto) (0.1 - 0.8 x10 3/uL) [...] 0.00 Diagnosis, Assessment PlanConsultants: cardiology, cardiovascular surgery, critical/foot miter operator, hospitalist Free Text DxA P NotesFree text DxA P notes:Non-sustained V-tachy, on Amiodarone dripChest pain 2/2 aboveLife vest stopped firingTobacco abuseDiabetic Mellitus II with hyperglycemiaHx Left atrial clot (on Eliquis)Hx Diabetes Mellitus IIHx CAD PlanAd[facility] CardiologyConsult Critical careContinous Telemetry monitoring - to [...] patient Nicotine patch but he declined.Pain control: [place] PRNDVT ppx: JAYLEN [place] [facility] [place]No acute cardiopulmonary process.Plan of care [...] likely for cabg- workup in progress- per chargeback specialist patient has been cleared to transfer out [...] at target, labs reviewed at 1512 RPT #:[id number] OF REPORTPRProgress bgvl6506-55-91P21:07:00G.CAUI09828564-1425DTCjtxn able for patient abtzUKNKESBXXOPJPJ4673-38-74I51:21:52 [facility] 2024-01-03 10:12:00 [id number] OsgggcKaf5CnAFGkzXJuLrlqVj/7r VIWNrPy5ye9lyhDPlnYDLAWvxDf5650-34-84H17:12:00 [facility] HospitalCardiothoracic Surgery ProgREPORT#:[id number] REPORT STATUS: SignedREPORT INITIALIZATION DATE:01/03/24 TIME: 1012 PATIENT: CHARAN RESTREPO UNIT #: [id number]#: [id number] [address] [birth year] AGE: 53 SEX: M ATTEND: [...] full range of motion, painless range of motionNeuro/DIRECTORY OPERATOR: alert, CNII-XII intactSkin: dry, intactPsychiatry: normal [...] MG Q5M PRN PRN SL ResultsFindings/Data:Laboratory Tests 01/02 01/02 01/01 01/01 0732 [...] (8.0 - 10.5 mg/dL) 9.0 Ionized Calcium Zian (1.09 - 1.30 MMOL/L) 1.14 Phosphorus (2.5 - 4.9 MG/DL) 3.3 Magnesium (1.6 - 2.6 mg/dL) 1.76 Laboratory Tests 01/02 0504 Coagulation PTT ([place]) (25.0 - 39.5 Seconds) 64.8 H Laboratory [...] % (Auto) (14.0 - 32.0 %) 27.3 Erie % (Auto) (4.8 - 9.0 %) 8.5 Eos % (Auto) (0.3 - 3.7 %) 4.9 H Baso % (Auto) (0.0 - 2.0 %) 1.0 Neut # (Auto) (2.0 - 7.6 x10 3/uL) 4.70 Lymph # (Auto) (1.0 - 3.8 x10 3/uL) 2.23 Erie # (Auto) (0.1 - 0.8 x10 3/uL) [...] 0.00 Results: labs reviewed, vital signs stable, rymariom personally rev'd, current med profile rev'd Diagnosis, Assessment PlanHospital course to date:This is a 53-year-old gentleman with past medical history of coronary artery disease status post previous PCI in the past, hypertension, diabetes, hyperlipidemia, smoker 1 ppd/40 years, and chronic pain who presented to [facility] with complaints of life vest alarming and V-tach. Patient denies any shocks. He was started on an amiodarone drip and transferred to [facility] for further evaluation. He previously underwent left heart catheterization with [employer] about a monthago and was referred for bypass surgery. He was taken to the operating room where during the intraoperative ANAND there is some suspicion for thrombus, after talking with the patient's manager infusion we decided to cancel surgery due to [...] recommendations to follow. Consultants: cardiology, cardiovascular surgery, critical/foot miter operator, hospitalist at 1026 RPT #:[id number] OF REPORTPRProgress czlk4625-31-21C09:12:00G.PPFO82273627-7642QDCcexd able for patient wvyiAQBRDRMFDJUZTD6158-09-51N13:27:26 [facility] 2024-01-02 14:25:00 [id number] Knwhc72LVwO7Ycz7v+0w5q5kjL6dV jTAASO+Lz9JQ0CoXwJIiQKIQWki2135-25-81L24:25:00 [facility] HospitalHospitalist Progress NoteREPORT#:[id number] REPORT STATUS: SignedREPORT INITIALIZATION DATE:01/02/24 TIME: 1424 PATIENT: CHARAN RESTREPO UNIT #: [id number]#: [id number] [address] [birth year] AGE: 53 SEX: M ATTEND: Marycruz Villalba AUTHOR: Jane Barrios DOREPT SERVICE DT/TIME: 01/02/24 0902* ALL edits or amendments must be made [...] Room air 12/31 1800 63 14 98 / 1700 52 10 97 / 1627 97.9 57 14 116/56 0.0 97 [...] pain, no urinary catheterExtremities: no edemaMusculoskeletal: normal inspectionNeuro/DIRECTORY OPERATOR: alert, normal speechSkin: intact, no rashPsychiatry: [...] % (Auto) (14.0 - 32.0 %) 24.4 Erie % (Auto) (4.8 - 9.0 %) 7.3 Eos % (Auto) (0.3 - 3.7 %) 5.3 H Baso % (Auto) (0.0 - 2.0 %) 1.3 Neut # (Auto) (2.0 - 7.6 x10 3/uL) 5.25 Lymph # (Auto) (1.0 - 3.8 x10 3/uL) 2.11 Erie # (Auto) (0.1 - 0.8 x10 3/uL) [...] M.D. Diagnosis, Assessment PlanConsultants: cardiology, cardiovascular surgery, critical/foot miter operator, hospitalist Free Text DxA P NotesFree text DxA P notes:Non-sustained V-tachy, on Amiodarone dripChest pain 2/2 aboveLife vest stopped firingTobacco abuseDiabetic Mellitus II with hyperglycemiaHx Left atrial clot (on Eliquis)Hx Diabetes Mellitus IIHx CAD [facility]Ad[facility]iologyConsult Critical careContinous Telemetry monitoring - [...] patient Nicotine patch but he declined.Pain control: [place] PRNDVT ppx: [place]AY[place] [facility] [place]No acute cardiopulmonary process.Plan of care [...] likely for cabg- workup in progress- per chargeback specialist patient has been cleared to transfer out [...] pending CT surgery input at 1427 RPT #:[id number] OF REPORTPRProgress qvcv7280-48-62C94:25:00G.XRHG87700858-9182GMNowca able for patient ghulPCXYFQCZSNSXOE6344-53-48L08:28:07 [facility] 2024-01-02 12:44:00 [id number] 2YiDBbPCohMiNkgomFYMo8/VTV363 SNRbm9PE3ACgdo3O8kS8sUzxAgh9183-35-94J96:44:00 [facility] HospitalCardiothoracic Surgery ProgREPORT#:[id number] REPORT STATUS: SignedREPORT INITIALIZATION DATE:01/02/24 TIME: 1244 PATIENT: CHARAN RESTREPO UNIT #: [id number]#: [id number] [address] [birth year] AGE: 53 SEX: M ATTEND: [...] full range of motion, painless range of motionNeuro/DIRECTORY OPERATOR: alert, CNII-XII intactSkin: dry, intactPsychiatry: normal [...] 0.4 MG Q5M PRN PRN ResultsFindings/Data:Laboratory Tests 01/01 01/01 01/01 12/31 12/31 [...] Laboratory Tests 01/01 01/01 12/31 0837 8 6 Coagulation PTT (Ulises) (25.0 - 39.5 Seconds) [...] % (Auto) (14.0 - 32.0 %) 24.4 Erie % (Auto) (4.8 - 9.0 %) 7.3 Eos % (Auto) (0.3 - 3.7 %) 5.3 H Baso % (Auto) (0.0 - 2.0 %) 1.3 Neut # (Auto) (2.0 - 7.6 x10 3/uL) 5.25 Lymph # (Auto) (1.0 - 3.8 x10 3/uL) 2.11 Erie # (Auto) (0.1 - 0.8 x10 3/uL) [...] - CTA HEART W CN ART/GRAFTS 12/31 144 Report Impression - Status: SIGNED Entered: 01/01/20242042 [...] years, and chronic pain who presented to [facility] with complaints of life vest alarming and V-tach. Patient denies any shocks. He was started on an amiodarone drip and transferred to [facility] for further evaluation. He previously underwent left heart catheterization with [employer] about a monthago and was referred for bypass surgery. He was taken to the operating room where during the intraoperative ANAND there is some suspicion for thrombus, after talking with the patient's manager infusion we decided to cancel surgery due to [...] recommendations to follow Consultants: cardiology, cardiovascular surgery, critical/foot miter operator, hospitalist at [address] [facility] [place] #:[id number] OF REPORTPRProgress ppsl8283-93-71K19:44:00G.CZRA92553517-7001ZGUlkrf able for patient mfnrQNKWBGVVOGQZQV2407-33-75Z56:12:21 [facility] 2024-01-02 05:44:00 [id number] yk0J8Qsz88g50Vf1UZ50xZuPgs5RI EjXFOCIUPQkL38mmCiwVmldn5UL9837-82-99V56:44:00 [facility] ([facility])Cardiology Progress NoteREPORT#:[id number] REPORT STATUS: SignedREPORT INITIALIZATION DATE:01/02/24 TIME: 543 PATIENT: CHARAN RESTREPO UNIT #: [id number]#: [id number] [address] [birth year] AGE: 53 SEX: M ATTEND: Marycruz Villalba [facility] AUTHOR: Fiona Foster AGACNPREPT SERVICE DT/TIME: 01/02/24543* [...] 03/12 1235 51 15 104/63 77 98 / 1235 36.6 48 14 116/57 0.0 98 [...] assessment: normal capillary refill, no edemaMusculoskeletal: normal inspectionNeuro/DIRECTORY OPERATOR: alert, oriented X 3, normal speechSkin: [...] Tests 01/018 2056 1118 0603 Coagulation PTT ([place]) (25.0 - 39.5 Seconds) 66.2 H 65.5 [...] % (Auto) (14.0 - 32.0 %) 24.4 Erie % (Auto) (4.8 - 9.0 %) 7.3 Eos % (Auto) (0.3 - 3.7 %) 5.3 H Baso % (Auto) (0.0 - 2.0 %) 1.3 Neut # (Auto) (2.0 - 7.6 x10 3/uL) 5.25 Lymph # (Auto) (1.0 - 3.8 x10 3/uL) 2.11 [place]rie # (Auto) (0.1 - 0.8 x10 3/uL) [...] making by Dr. Iqbal. at 1242 RPT #:[id number] OF REPORTPRProgress uqnj9061-74-13Q15:44:00G.KRNP85401553-5354WQXdbpw able for patient bhigEBOXHVMXRALYWW6920-13-18A35:42:43 [facility] 2024-01-01 16:13:00 [id number]+R V3AzxAR+kCl7n0ol0fAOQgphyyHp1 BMhcfoFwNppNiu+zXVb8tCP/O3q0241-60-88F12:13:09452 2-[address] [place] [address] PATIENT NAME: CHARAN RESTREPO ADMIT DATE: 11/27/23ACCOUNT NO: [id number] ROOM NO: G.3302 AGE: 53 REPORT TYPE: 360 - QUERY RESPONSE DOCUMENT SEX: M ADMITTING PHYSICIAN:Papo Mayfield MD ATTENDING PHYSICIAN:Papo Mayfield MD Provider Query QUERY TEXT: Condition General 360MD Query related questions should be directed to:[facility] Coding Query Helpline Based on your clinical [...] AM at 1613 PATIENT NAME: CHARAN RESTREPO noteG.[id number] for patient xquwTDJILJCYQMPTUI9396-78-36P44:14:24 [facility] 2024-01-01 15:30:00 [id number] /RilptNxAXOhtRck3zB03lRkYewHl 4Y8jQn4fzfz7ITGYt3FuA9qp6RJ3271-18-67O42:30:00 [facility] HospitalCardi[facility] Surgery ProgREPORT#:[id number] REPORT STATUS: SignedREPORT INITIALIZATION DATE:01/01/24 TIME: 153 PATIENT: CHARAN RESTREPO UNIT #: [id number]#: [id number] [address] [birth year] AGE: 53 SEX: M ATTEND: [...] full range of motion, painless range of motionNeuro/DIRECTORY OPERATOR: alert, CNII-XII intactSkin: dry, intactPsychiatry: normal [...] 12/30 1118 0603 0039 1825 Coagulation PTT ([place]) (25.0 - 39.5 Seconds) 50.1 H 55.9 [...] % (Auto) (14.0 - 32.0 %) 30.9 Erie % (Auto) (4.8 - 9.0 %) 8.7 Eos % (Auto) (0.3 - 3.7 %) 6.3 H Baso % (Auto) (0.0 - 2.0 %) 1.2 Neut # (Auto) (2.0 - 7.6 x10 3/uL) 3.78 Lymph # (Auto) (1.0 - 3.8 x10 3/uL) 2.25 Erie # (Auto) (0.1 - 0.8 x10 3/uL) [...] years, and chronic pain who presented to [facility] with complaints of life vest alarming and V-tach. Patient denies any shocks. He was started on an amiodarone drip and transferred to [facility] for further evaluation. He previously underwent left heart catheterization with [employer] about a monthago and was referred for bypass surgery. He was taken to the operating room where during the intraoperative ANAND there is some suspicion for thrombus, after talking with the patient's manager infusion we decided to cancel surgery due to [...] recommendations to follow Consultants: cardiology, cardiovascular surgery, critical/foot miter operator, hospitalist at 0956 RPT #:[id number] OF REPORTPRProgress ixzj6519-47-01N60:30:00G.VMCP23821495-0092JQJlznp able for patient ybivDVWXDONZNRNTCN3477-76-12S86:57:46 [facility] 2024-01-01 12:24:00 [id number] TApAA8hrphot8BiXR1CsVQE4uQzRX D7nAKpRluGD860ndN/1Hc5dj9qr7286-33-73F65:24:00 [facility] HospitalHospitalist Progress NoteREPORT#:[id number] REPORT STATUS: SignedREPORT INITIALIZATION DATE:01/01/24 TIME: 1223 PATIENT: CHARAN RESTREPO UNIT #: [id number]#: [id number] [address] [birth year] AGE: 53 SEX: M ATTEND: [...] pain, no urinary catheterExtremities: no edemaMusculoskeletal: normal inspectionNeuro/DIRECTORY OPERATOR: alert, normal speechSkin: intact, no rashPsychiatry: normal affect, normal mood Free Text Obj NotesFree Text Obj Notes:General appearance: alert, awakeHead/Eyes: normal conjunctiva/scleraCardiovascular: normal heart sounds, regular rate rhythmRespiratory: clear to auscultation, no distressAbdomen: normal bowel sounds, softExtremities: no edemaNeuro/DIRECTORY OPERATOR: alert, normal speechSkin: intact, no rashPsychiatry: normal affect, normal mood Diagnosis, Assessment Plan Free Text DxA P NotesFree text DxA P notes:Patient is a 53 yrs old male with Pmhx as mentioned above who presented withAssessment:Non-sustained V-tachy, on Amiodarone dripChest pain 2/2 aboveLife vest stopped firingTobacco abuseDiabetic Mellitus II with hyperglycemiaHx Left atrial clot (on Eliquis)Hx Diabetes Mellitus IIHx CAD PlanAd[facility] CardiologyConsult Critical careContinous Telemetry monitoring - to [...] patient Nicotine patch but he declined.Pain control: [place] PRNDVT ppx: [place] [facility] [place]No acute cardiopulmonary process.Plan of care [...] likely for cabg- workup in progress- per chargeback specialist patient has been cleared to transfer out of [facility] to [facility] while awaiting workup 12/31/23- heparin gtt- cta pending- ssi/fingersticks- smoking cessation- cvs is on case and patient likely for cabg- workup in progress Diagnosis, Assessment PlanConsultants: cardiology, cardiovascular surgery, critical/foot miter operator, hospitalist Free Text DxA P NotesFree text DxA P notes: Non-sustained V-tachy, on Amiodarone dripChest pain 2/2 aboveLife vest stopped firingTobacco abuseDiabetic Mellitus II with hyperglycemiaHx Left atrial clot (on Eliquis)Hx Diabetes Mellitus IIHx CAD PlanAdmit to [facility] CardiologyConsult Critical careContinous Telemetry monitoring - to [...] patient Nicotine patch but he declined.Pain control: [place] PRNDVT ppx: AC EliquisLabs [place] [facility] [place]No acute cardiopulmonary process.Plan of care [...] likely for cabg- workup in progress- per chargeback specialist patient has been cleared to transfer out [...] pending- ssi/fingersticks- smoking cessation at 1228 RPT #:[id number] OF REPORTPRProgress auqz9704-08-97Q85:24:00G.EXCE39279715-1990WKBexhi able for patient vygqUZBEHTTVGIILQS7248-74-21N36:28:37 [facility] 2024-01-01 11:02:00 [id number] 10xLWh3ynRWRHrCjCzIZH3U9FY8Js 7Y5e1qIJf1hmxFYdHatvsw3JJAz4568-40-39M73:02:00 [facility] ([facility])Cardiology Progress NoteREPORT#:[id number] REPORT STATUS: SignedREPORT INITIALIZATION DATE:01/01/24 TIME: 1102 PATIENT: CHARAN RESTREPO UNIT #: [id number]#: [id number] [address] [birth year] AGE: 53 SEX: M ATTEND: Jemal Young MDADM AUTHOR: Fiona Foster AGACNPREPT SERVICE DT/TIME: 01/01/24 1102* ALL edits or amendments must be made [...] assessment: normal capillary refill, no edemaMusculoskeletal: normal inspectionNeuro/DIRECTORY OPERATOR: alert, oriented X 3, normal speechSkin: dry, intact, normal colorPsychiatry: normal affect, normal judgment/insight, normal mood ResultsFindings/Data:Laboratory Tests 12/31 12/31 12/31 12/30 12/30 0853 0737 9366 2344 1706Chemistry Sodium (134 - 147 mEq/L) [...] 12/30 0603 0039 1825 1244 Coagulation PTT ([place]) (25.0 - 39.5 Seconds) 55.9 H 61.9 [...] % (Auto) (14.0 - 32.0 %) 30.9 [place] % (Auto) (4.8 - 9.0 %) 8.7 Eos % (Auto) (0.3 - 3.7 %) 6.3 H Baso % (Auto) (0.0 - 2.0 %) 1.2 Neut # (Auto) (2.0 - 7.6 x10 3/uL) 3.78 Lymph # (Auto) (1.0 - 3.8 x10 3/uL) 2.25 [place] # (Auto) (0.1 - 0.8 x10 3/uL) [...] due to the chronicity. 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 and plan was to [...] Medical decision making by Dr. Iqbal. at 1501 at 4950 RPT #:[id number] OF REPORTPRProgress fjro9578-01-95Y85:02:00G.[id number] able for patient xbpwILQHGWMGTGVGNU7315-37-76X57:02:55 HCACL 2023-12-31 18:20:00 [id number] bVLOny7IRj0ij51DshIcA5K0Xqj/O oXzM1kcPL7oQmsG1LHnUrpKBuf20575-11-28V82:20:00 [facility] ([facility]ITALHospitalist Progress NoteREPORT#:[id number] REPORT STATUS: SignedREPORT INITIALIZATION DATE:12/31/23 TIME: 1819 PATIENT: CHARAN RESTREPO UNIT #: [id number]#: [id number] [address] [birth year] AGE: 53 SEX: M ATTEND: [...] 12/29 2004 64 16 140/73 100 95 12/29 1900 [...] no distressAbdomen: normal bowel sounds, softExtremities: no edemaNeuro/DIRECTORY OPERATOR: alert, normal speechSkin: intact, no rashPsychiatry: normal affect, normal mood Diagnosis, Assessment Plan Free Text DxA P NotesFree text DxA P notes:Patient is a 53 yrs old male with Pmhx as mentioned above who presented withAssessment:Non-sustained V-tachy, on Amiodarone dripChest pain 2/2 aboveLife vest stopped firingTobacco abuseDiabetic Mellitus II with hyperglycemiaHx Left atrial clot (on Eliquis)Hx Diabetes Mellitus IIHx CAD PlanAdmit [facility] CardiologyConsult Critical careContinous Telemetry monitoring - to [...] patient Nicotine patch but he declined.Pain control: [place] PRNDVT ppx: AC [facility]elmo[facility] [place] [facility] [place]No acute cardiopulmonary process.Plan of care [...] likely for cabg- workup in progress- per chargeback specialist patient has been cleared to transfer out of ccu to [facility] while awaiting workup 12/31/23- heparin gtt- cta pending- ssi/fingersticks- smoking cessation- [facility] is on case and patient likely for cabg- workup in progress at 1351 RPT #:[id number] OF REPORTPRProgress dqum3743-10-40W33:20:00G.FWBL71609179-1823JLNesdj able for patient rixvZDPVNTJCXJGNKU3050-74-29T61:52:20 [facility] 2023-12-31 12:29:00 [id number] V5YukMHgqZVN/gKKMaws+bOqhxR+/ hDiCSCY68/PI1uUcocBxNOSR1l68651-18-93A86:29:00 [facility])EP Consultation NoteREPORT#:[id number] REPORT STATUS: SignedREPORT INITIALIZATION DATE:12/31/23 TIME: 122 PATIENT: CHARAN RESTREPO UNIT #: [id number]#: [id number] [place] [facility] [place]DOB: [birth year] AGE: 53 SEX: M ATTEND: Jemal Young MDADM AUTHOR: Mani Mendoza NPREPT SERVICE DT/TIME: 12/31/23 1229* ALL edits or amendments must be made on the electronic/computer document * History of Present IllnessRequesting clinician: Dr Baez for consult:V-tach complaint:LifeVest alarming History - Adult longitudinalPast medical [...] 0910 Atorvastatin Calcium 40 MG BEDTIME 12/27 2100 AC 12/29 (LIPITOR) PO 01/26 2059 211 Metoprolol Succinate 25 MG DAILY 12/27 899 AC 12/30 (TOPROL XL) PO 03/27 0859 0910 Nitroglycerin 0.4 MG Q5M PRN PRN 12/26 2115 AC (NITROSTAT) SL 03/26 211 Central Nervous System Agents Sig/Marie Start time Last Medication Dose Route Stop Time Status Admin Morphine Sulfate 4 MG Q4H PRN PRN 12/27 220 AC 12/30 (morphine SULFATE) IV 01/01 2159 [...] 1745 AC 12/30 (HUMALOG) SUBQ 03/27 2059 0917 Glucagon 1 MG DAILY PRN PRN 12/27 [...] 15 129/69 92 96 03/10 1600 98.6 10 1500 61 14 126/69 92 96 /10 1400 61 17 128/66 90 96 /10 1300 58 18 114/65 84 93 03/10 1243 62 9 97 /10 1200 97.8 /10 1200 69 45 154/79 107 99 03/10 1100 65 15 125/73 93 96 03/10 1000 72 20 152/70 101 98 03/10 0900 57 10 107/55 75 95 03/10 0800 98.8 /10 0800 69 30 150/76 107 96 03/10 0600 60 23 134/65 92 96 03/10 0501 54 15 122/70 90 99 03/10 0400 97.8 Room air /10 0400 53 11 108/57 78 95 03/10 0301 136/78 100 03/10 0101 54 10 95/50 68 94 12/29 0000 98.2 Room air 12/29 0000 56 [...] distress, pleasant, conversational, no respiratory distressRespiratory: no distressNeuro/DIRECTORY OPERATOR: alert, oriented X 3, normal gait, [...] % (Auto) (14.0 - 32.0 %) 30.1 Erie % (Auto) (4.8 - 9.0 %) 7.6 Eos % (Auto) (0.3 - 3.7 %) 6.6 H Baso % (Auto) (0.0 - 2.0 %) 1.3 Neut # (Auto) (2.0 - 7.6 x10 3/uL) 4.07 Lymph # (Auto) (1.0 - 3.8 x10 3/uL) 2.27 Erie # (Auto) (0.1 - 0.8 x10 3/uL) [...] and HLD. He recently had LHC at [facility] due to frequent chest pain and was referred to come here for CABG. The patient was recently admitted to [facility] on 11/27/23 for CABG work-up and surgery was scheduled for 11/30/23 but cancelled due to Right atrium thrombus on ANAND. He was discharged on LifeVest, anticoagulant (eliquis), and planning for CABG in 2-3 months. ECHO on 11/28/23, LVEF was 30-34%. The patient reports went to [facility] in [place] because had frequent chest pain and LifeVest alarming occurred few times, deniesLifeVest shocks. He was found to have episodes of VT, started on Amiodarone bolus/drip, and transfered to [facility] on 12/27/23 for further evaluation. EP consult [...] painawaiting for CABG decision at 1613 at [address] [facility] #:[id number] OF REPORTILTnsjajvypzei5424-93-65S67:29:00G.PDOC2 [id number] for patient snseZRRQOZFACEIJAJ8126-35-14G36:13:21 [facility] 2023-12-31 12:23:00 [id number]/7j 3K756zNgZ/Q2lVlimaVp46C++U54O hqyvT9/YzW5fs82ASt90rjyd61b1360-73-86L42:23:[address] [address] PATIENT NAME: CHARAN RESTERPO ADMIT DATE: 12/27/23ACCOUNT NO: [id number] ROOM NO: 3345 AGE: 53 REPORT TYPE: 360 - QUERY RESPONSE DOCUMENT SEX: M ADMITTING PHYSICIAN:Jac Marsh MD ATTENDING PHYSICIAN:Marycruz Villalba MD Provider Query QUERY TEXT: Specificity General 360MD Query related questions should be directed to: Micki Awad RN, BSN [email or web address] Please provide any known specificity for AFIB [...] AM at 1223 PATIENT NAME: CHARAN RESTREPO noteG.[id number] for patient yhxyREEPGXQGZOVWMW8344-62-35N06:24:16 [facility] 2023-12-31 11:03:00 [id number]+Ya8yuKF 5cqIRV001vL52fYdQOT0GIQEhESlY XoCWnVg55MJIb2yimgy7ZPGv1qN5006-19-03B34:03:00 [facility] HospitalCardiothoracic Surgery ProgREPORT#:[id number] REPORT STATUS: SignedREPORT INITIALIZATION DATE:12/31/23 TIME: 110 PATIENT: CHARAN RESTREPO UNIT #: [id number]#: [id number] [address]DOB: [birth year] AGE: 53 SEX: M ATTEND: [...] Mean 0.0 12/30 08 Temp 36.5 12/30 0802 Pulse 54 12/30 0802 Resp 14 12/30 0802 24 hour I O ending at 0700: [...] full range of motion, painless range of motionNeuro/DIRECTORY OPERATOR: alert, CNII-XII intactSkin: dry, intactPsychiatry: normal [...] % (Auto) (14.0 - 32.0 %) 30.1 Erie % (Auto) (4.8 - 9.0 %) 7.6 Eos % (Auto) (0.3 - 3.7 %) 6.6 H Baso % (Auto) (0.0 - 2.0 %) 1.3 Neut # (Auto) (2.0 - 7.6 x10 3/uL) 4.07 Lymph # (Auto) (1.0 - 3.8 x10 3/uL) 2.27 Erie # (Auto) (0.1 - 0.8 x10 3/uL) [...] years, and chronic pain who presented to [facility] with complaints of life vest alarming and V-tach. Patient denies any shocks. He was started on an amiodarone drip and transferred to [facility] for further evaluation. He previously underwent left heart catheterization with [employer] about a monthago and was referred for bypass surgery. He was taken to the operating room where during the intraoperative ANAND there is some suspicion for thrombus, after talking with the patient's manager infusion we decided to cancel surgery due to [...] questions were answered Consultants: cardiology, cardiovascular surgery, critical/foot miter operator, hospitalist at [address] [facility] #:[id number] OF REPORTPRProgress xtyt6326-54-82U50:03:00G.MGGT06796344-9341VYVkipe able for patient hszhHJNAJBKOOFXRBD9736-20-75A89:56:44 [facility] 2023-12-30 18:12:00 [id number] YYJkbkejSarRRznD2KXmePxMBPUWm CQn0mlInah1w8sGmZDqLzTvj4k62777-36-41H76:12:00 [facility] ([facility])Hospitalist Progress NoteREPORT#:[id number] REPORT STATUS: SignedREPORT INITIALIZATION DATE:12/30/23 TIME: 1811 PATIENT: CHARAN RESTREPO UNIT #: [id number]#: [id number] [address] [birth year] AGE: 53 SEX: M ATTEND: [...] 12/29 1300 58 18 114/65 84 93 /10 1243 62 9 97 / 1200 97.8 12/29 1200 69 45 154/79 107 99 03/10 1100 65 15 125/73 93 96 03/10 1000 72 20 152/70 101 98 /10 0900 57 10 107/55 75 95 03/10 0800 98.8 03/10 0800 69 30 150/76 107 96 /10 0600 60 23 134/65 92 96 03/10 0501 54 15 122/70 90 99 03/10 0400 97.8 Room air / 0400 53 11 108/57 78 95 03/10 0301 136/78 100 03/10 0101 54 10 95/50 68 94 03/10 0000 98.2 Room air / 0000 56 20 126/69 92 95 03/09 2300 54 11 137/67 95 97 12/28 2200 55 13 122/63 87 96 / 2100 54 14 124/66 89 96 12/28 2027 97 Room air 12/28 2000 98.0 Room air 12/28 2000 59 13 130/68 92 97 12/28 1900 63 19 135/77 100 98 24 hour I O ending at 0700: 12/29 0700 03/09 1900 Intake Total 700 960 Output Total [...] no distressAbdomen: normal bowel sounds, softExtremities: no edemaNeuro/DIRECTORY OPERATOR: alert, normal speechSkin: intact, no rashPsychiatry: normal affect, normal mood Diagnosis, Assessment Plan Free Text DxA P NotesFree text DxA P notes:Patient is a 53 yrs old male with Pmhx as mentioned above who presented withAssessment:Non-sustained V-tachy, on Amiodarone dripChest pain 2/2 aboveLife vest stopped firingTobacco abuseDiabetic Mellitus II with hyperglycemiaHx Left atrial clot (on Eliquis)Hx Diabetes Mellitus IIHx CAD PlanAdmit to [facility] CardiologyConsult Critical careContinous Telemetry monitoring - to [...] patient Nicotine patch but he declined.Pain control: [place] PRNDVT ppx: AC [place] [facility] [place]No acute cardiopulmonary process.Plan of care [...] likely for cabg- workup in progress- per chargeback specialist patient has been cleared to transfer out of [facility]cu to [facility] while awaiting workup at 1351 RPT #:[id number] OF REPORTPRProgress hpkx9586-79-92X79:12:00G.OAUP52765746-5294FBEpumd able for patient yigrINQVETMHBJRJIZ3236-49-36T17:51:50 [facility] 2023-12-30 14:32:00 [id number]+7L hPle8Cm4B/D1Ig8C+XihB8koETaOz 74Z3GZVOlAC48LkKK1e0cVz3+aZ4442-72-02S57:32:00 [facility])Cardiology Progress NoteREPORT#:[id number] REPORT STATUS: SignedREPORT INITIALIZATION DATE:12/30/23 TIME: 1431 PATIENT: CHARAN RESTREPO UNIT #: [id number]#: [id number] ROOM/BED: 3308-1DOB: [birth year] AGE: 53 SEX: M ATTEND: Marycruz Villalba MDA AUTHOR: Himanshu Lebron MDREPT SERVICE DT/TIME: 12/30/231431* ALL edits or amendments must be made on the electronic/computer document * SubjectiveChief complaint:CP, VT, LIfe Vest alarmingHPI:This is a 53-year-old male with past medical history of coronary artery disease 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 Patient was admitted to [facility] a month ago for CABG was found to have LV thrombus and was discharged home on [facility] with a LifeVestwith a plan to do CABG in 2 to 3 months from yesterday LV thrombus resolved. Patient said that has been having chest pain almost on a daily basis since nothing changed and that since. However he said over the last 2 days he has been hearing the LifeVest alarming he end up going to [facility] found to have nonsustained VT frequent episodes [...] 10 107/55 75 95 03/10 0800 98.8 03 0800 69 30 150/76 107 96 03/10 0600 60 23 134/65 92 96 03/10 0501 54 15 122/70 90 99 03/10 0400 97.8 Room air 12/29 0400 53 11 108/57 78 95 03/10 0301 136/78 100 03/10 0101 54 10 95/50 68 94 03/10 0000 98.2 Room air / 0000 56 20 126/69 92 95 03/09 2300 54 11 137/67 95 97 / 2200 55 13 122/63 87 96 / 2100 54 14 124/66 89 96 03 2027 97 Room air 12/29 1999 98.0 Room air 12/28 2000 59 13 130/68 92 97 03/ 1900 63 19 135/77 100 98 03/ 1800 63 13 123/65 88 97 03/ 1700 58 14 117/67 85 95 03/ 1600 97.1 12/28 1600 62 32 133/78 98 99 03/ [...] Coagulation INR (0.8 - 1.2) 1.2 PTT ([place]) (25.0 - 39.5 Seconds) 37.1 PT Patient/Control [...] % (Auto) (14.0 - 32.0 %) 29.3 Erie % (Auto) (4.8 - 9.0 %) 7.0 Eos % (Auto) (0.3 - 3.7 %) 6.3 H Baso % (Auto) (0.0 - 2.0 %) 1.1 Neut # (Auto) (2.0 - 7.6 x10 3/uL) 4.00 Lymph # (Auto) (1.0 - 3.8 x10 3/uL) 2.10 Erie # (Auto) (0.1 - 0.8 x10 3/uL) [...] 0.1 x10 3/uL) 0.00 Laboratory Tests 12/29 0426 Chemistry Magnesium (1.6 - 2.6 mg/dL) 1.98 Diagnosis, Assessment PlanConsultants: cardiology, cardiovascular surgery, critical/foot miter operator, 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 Coronary artery disease: Patient has chronic chest pain unclear if it is dueto his underlying coronary artery disease versus atypical chest pain due to the chronicity. 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 and plan was to [...] CHEST AND THEN CABG at 1433 RPT #:[id number] OF REPORTPRProgress fvmn2720-58-51H69:32:00G.JDBW51449827-0177UIBwpsl able for patient kwubRHEEJZRWPRYMMH6764-38-80L76:33:33 [facility] 2023-12-30 12:15:00 [id number] U74pn4LI3DDnnapqJrr+HC+FQF4Gw J/LkX5AirZ+rQ6OyGRJ1XGnVrIz2980-75-58Z70:15:00 [facility])Cardiothoracic Surgery ProgREPORT#:[id number] REPORT STATUS: SignedREPORT INITIALIZATION DATE:12/30/23 TIME: 1215 PATIENT: CHARAN RESTREPO UNIT #: [id number]#: [id number] [place] [facility] [place]DOB: [birth year] AGE: 53 SEX: M ATTEND: Marycruz Villalba MDADM AUTHOR: Paop Mayfield MDREPT SERVICE DT/TIME: 12/30/23 1215* ALL [...] full range of motion, painless range of motionNeuro/DIRECTORY OPERATOR: alert, CNII-XII intactSkin: dry, intactPsychiatry: normal [...] % (Auto) (14.0 - 32.0 %) 29.3 Erie % (Auto) (4.8 - 9.0 %) 7.0 Eos % (Auto) (0.3 - 3.7 %) 6.3 H Baso % (Auto) (0.0 - 2.0 %) 1.1 Neut # (Auto) (2.0 - 7.6 x10 3/uL) 4.00 Lymph # (Auto) (1.0 - 3.8 x10 3/uL) 2.10 Erie # (Auto) (0.1 - 0.8 x10 3/uL) [...] years, and chronic pain who presented to [facility] with complaints of life vest alarming and V-tach. Patient denies any shocks. He was started on an amiodarone drip and transferred to [facility] for further evaluation. He previously underwent left heart catheterization with [employer] about a monthago and was referred for bypass surgery. He was taken to the operating room where during the intraoperative ANAND there is some suspicion for thrombus, after talking with the patient's manager infusion we decided to cancel surgery due to [...] questions were answered. Consultants: cardiology, cardiovascular surgery, critical/foot miter operator, hospitalist at 0941 RPT #:[id number] OF REPORTPRProgress frpw5931-26-41F60:15:00G.HZCJ36249627-1215XLYsywi able for patient mmveHCFHJYKTFMHZVV4123-64-81V16:42:51 [facility] 2023-12-30 10:30:00 [id number] y/IWV2YeJp0Mx55nVlFgoBiRfnoK9 tMA+ZxQ8EpexnvwWyWjtc2nSo8W3918-45-34H93:30:00 [facility] ([facility])Critical Care Progress NoteREPORT#:[id number] REPORT STATUS: SignedREPORT INITIALIZATION DATE:12/30/23 TIME: 1030 PATIENT: CHARAN RESTREPO UNIT #: [id number]#: [id number] [address] [birth year] AGE: 53 SEX: M ATTEND: [...] clot on Eliquis,presented to the ER at [facility] in [place] with chest pain. He also complained of [...] 134/65 12/29 0600 B/P Mean 92 12/29 06 Pulse 60 12/29 0600 Resp 23 12/29 06 O2 Delivery Room air 12/29 0400 24 [...] (NITROSTAT) 0.4 MG Q5M PRN PRN SL ResultsFindings/data:Laboratory Tests 12/29 1948 1600 1119 Chemistry Sodium (134 - [...] % (Auto) (14.0 - 32.0 %) 29.3 Erie % (Auto) (4.8 - 9.0 %) 7.0 Eos % (Auto) (0.3 - 3.7 %) 6.3 H Baso % (Auto) (0.0 - 2.0 %) 1.1 Neut # (Auto) (2.0 - 7.6 x10 3/uL) 4.00 Lymph # (Auto) (1.0 - 3.8 x10 3/uL) 2.10 Erie # (Auto) (0.1 - 0.8 x10 3/uL) [...] all, normal capillary refill, normal range of motionNeuro/DIRECTORY OPERATOR: alert, oriented X 3Skin: dry, normal [...] min excluding procedure timeConsultants: cardiology, cardiovascular surgery, critical/foot miter operator, hospitalistCode status: full codePlan discussed with: patient, family, nurse, interdisc care teamCritical care time: Minutes: 35 at 1336 RPT #:[id number] OF REPORTPRProgress ykiy8279-41-11M34:30:00G.IRLT30224632-0522TKOvuuj able for patient ckawAGHZQLLQUQLJBU3988-76-60K30:36:46 [facility] 2023-12-29 17:46:00 [id number] /GzYN2EXvtP0Ian3lvc9h7G6LUTPB nB0/cDq8VL3B4WcJfXmV7Y7SszW9867-36-01R62:46:00 [facility] HospitalHospitalist Progress NoteREPORT#:[id number] REPORT STATUS: SignedREPORT INITIALIZATION DATE:12/29/23 TIME: 1745 PATIENT: CHARAN RESTREPO UNIT #: [id number]#: [id number] [address]DOB: [birth year] AGE: 53 SEX: M ATTEND: Marycruz Villalba MDADM AUTHOR: Marycruz Villalba MDREPT SERVICE DT/TIME: 12/29/231745* ALL edits or amendments must be made on the electronic/computer document * SubjectiveChief complaint:no complaintstime seen 215 pm Objective GeneralVS/I O:Vital Signs: Date Time Temp Pulse Resp B/P B/P Pulse O2 O2 Flow FiO2 Mean Ox Delivery Rate 12/28 1600 97.1 03/09 1600 62 32 133/78 98 99 03/09 1500 55 14 122/76 92 98 03/09 1400 55 18 133/67 93 97 03/09 1300 59 15 128/67 90 96 03/ 1200 97.5 03/ 1200 68 30 138/73 100 98 03/09 1100 53 14 136/71 98 100 03/09 1000 54 11 145/68 98 98 03/09 0900 59 13 132/70 94 96 03/09 0800 97.7 03/ 0800 56 14 139/72 98 94 03/09 0700 56 13 135/75 99 98 03/09 0600 57 11 130/74 97 96 03/ 0500 59 14 129/71 93 96 03/09 0400 97.8 Room air 03/ 0400 63 22 140/76 101 100 03/ 0300 58 15 134/75 99 97 03/ 0201 60 18 98/54 73 95 03/09 0100 57 12 124/60 86 96 03/09 0000 98.4 Room air 03/ 0000 62 15 134/68 94 98 03/08 2213 98 Room air / 2203 75 37 144/85 109 99 03/08 2100 58 13 125/66 90 98 03/08 2000 98.0 Room air / 2000 59 15 131/76 98 98 03/08 1901 57 13 106/52 75 96 03/08 1800 66 18 146/76 104 99 24 hour I O ending at 0700: 03/ 0700 /08 1900 Intake Total 500 1090.00 Output Total [...] no distressAbdomen: normal bowel sounds, softExtremities: no edemaNeuro/DIRECTORY OPERATOR: alert, normal speechSkin: intact, no rashPsychiatry: normal affect, normal mood Diagnosis, Assessment Plan Free Text DxA P NotesFree text DxA P notes:Patient is a 53 yrs old male with Pmhx as mentioned above who presented withAssessment:Non-sustained V-tachy, on Amiodarone dripChest pain 2/2 aboveLife vest stopped firingTobacco abuseDiabetic Mellitus II with hyperglycemiaHx Left atrial clot (on Eliquis)Hx Diabetes Mellitus IIHx CAD PlanAd[facility]iologyConsult Critical careContinous Telemetry monitoring - to [...] patient Nicotine patch but he declined.Pain control: [place] PRNDVT ppx: AC EliquisLabs [place] [facility] [place]:No acute cardiopulmonary process.Plan of care discussed with patient/NurseFurther rec's as per clinical course. 12/28/23- amiodarone gtt as needed- eliquis- ssi/fingersticks- smoking cessation- am labs- cardio input pending- remains in ccu 12/29/23- amiodarone gtt as needed- eliquis- ssi/fingersticks- smoking cessation- [facility] is on case and patient likely for cabg- remains in ccu at 1350 RPT #:[id number] OF REPORTPRProgress nguk4093-69-78J22:46:00G.BNNO41742367-1103ZOLheup able for patient xyttZDQAEBCTYCECBP1485-35-96L48:51:29 [facility] 2023-12-29 16:16:00 [id number] Wf8xNtfHACpv7SrNJxYCVRZ8u+vTB XbGFEEANMeHQs4MAQPdAz617z0D0254-51-38X90:16:00 [facility] ([facility])Critical Care Progress NoteREPORT#:[id number] REPORT STATUS: SignedREPORT INITIALIZATION DATE:12/29/23 TIME: 1615 PATIENT: CHARAN RESTREPO UNIT #: [id number]#: [id number] [address] [birth year] AGE: 53 SEX: M ATTEND: Marycruz Villalba AUTHOR: Michelle Galvez SERVICE DT/TIME: 12/29/231615* ALL edits or amendments must be made on the electronic/computer document * SubjectiveChief complaint: Chest pain Dyspnea History of CAD Left Atrial Clot on EliquisHPI:Charan Restrepo is a 53-year-old male with past medical history significant for low ejection fraction, history of coronary disease, left atrial clot on Eliquis,presented to the ER at [facility] in [place] with chest pain. He also complained of [...] all, normal capillary refill, normal range of motionNeuro/DIRECTORY OPERATOR: alert, oriented X 3Skin: dry, normal [...] time 33 min Consultants: cardiology, cardiovascular surgery, critical/foot miter operator, hospitalist at 1627 RPT #:[id number] OF REPORTPRProgress xuks0862-25-95H03:16:00G.HDJV32703120-5673CUHjxnt able for patient giaxCBXFBPRPPNPHFR3690-22-24Y85:28:19 [facility] 2023-12-29 13:30:00 [id number]+txSCJ5 N3b99TWQR59nnI43HtnqN5AMcw5z8 ewW+eJk6WyJmTe4C0GzHBpCIWd20639-22-71Y88:30:00 [facility] HospitalCardiothoracic Surgery ConsultREPORT#:[id number] REPORT STATUS: SignedREPORT INITIALIZATION DATE:12/29/23 TIME: 133 PATIENT: CHARAN RESTREPO UNIT #: [id number]#: [id number] [place]OM[facility]BED: [facility] [place]DOB: [birth year] AGE: 53 SEX: M ATTEND: Marycruz [...] years, and chronic pain who presented to [facility] with complaints of life vest alarming and V-tach. Patient denies any shocks. He was started on an amiodarone drip and transferred to [facility] for further evaluation. He previously underwent left heart catheterization with [employer] about a monthago and was referred for bypass surgery. He was taken to the operating room where during the intraoperative ANAND there is some suspicion for thrombus, after talking with the patient's manager infusion we decided to cancel surgery due to [...] PRN 12/26 2115 AC (NITROSTAT) SL 03/26 2114 Amiodarone HCl 450 MG ASDIR 12/26 2045 [...] MG Q4H PRN PRN 12/27 2200 AC 12/28 (morphine SULFATE) IV 01/01 2159 1104 Aspirin 81 MG DAILY 12/27 09 AC 12/28 (ASPIRIN) PO 03/27 0859 0824 Hydrocodone Bitart/ 1 TAB Q4H PRN PRN 12/26 2200 AC 12/28 Acetaminophen PO 12/31 2159 1202 [...] HS 12/27 2100 CAN (HUMALOG) SUBQ 03/27 2059 Insulin Human Lispro 0 AC HS 12/27 1745 AC 12/28 (HUMALOG) SUBQ 03/27 205 0736 Glucagon 1 MG DAILY PRN PRN [...] full range of motion, painless range of motionNeuro/DIRECTORY OPERATOR: alert, oriented X 3Skin: dry, intactPsychiatry: [...] % (Auto) (14.0 - 32.0 %) 27.5 [place] % (Auto) (4.8 - 9.0 %) 7.7 Eos % (Auto) (0.3 - 3.7 %) 5.7 H Baso % (Auto) (0.0 - 2.0 %) 1.0 Neut # (Auto) (2.0 - 7.6 x10 3/uL) 5.33 Lymph # (Auto) (1.0 - 3.8 x10 3/uL) 2.55 [place] # (Auto) (0.1 - 0.8 x10 3/uL) [...] years, and chronic pain who presented to [facility] with complaints of life vest alarming and V-tach. Patient denies any shocks. He was started on an amiodarone drip and transferred to [facility] for further evaluation. He previously underwent left heart catheterization with [employer] about a monthago and was referred for bypass surgery. He was taken to the operating room where during the intraoperative ANAND there is some suspicion for thrombus, after talking with the patient's manager infusion we decided to cancel surgery due to [...] surgeryFurther recommendations to follow. at 0941 RPT #:[id number] OF REPORTRHUenfxcdxmcha6818-62-32Q59:30:00G.PDOC2 5436080-8188QENvnigknyp for patient kzhhBCDIBBIVQTWCDB1214-18-09X94:42:10 [facility] 2023-12-29 12:29:00 [id number] 2O9p9DjQ1SBrc+PFJ4AEhdjwpkyTe DL5ZjKw41gmDdBqWayzryeqjYEE2853-65-75I26:29:00 [facility] HospitalCardiology Progress NoteREPORT#:[id number] REPORT STATUS: SignedREPORT INITIALIZATION DATE:12/29/23 TIME: 122 PATIENT: CHARAN RESTREPO UNIT #: [id number]#: [id number] [address]OB: [birth year] AGE: 53 SEX: M ATTEND: Marycruz Villalba AUTHOR: Himanshu Lebron MDREPT SERVICE DT/TIME: 12/29/23 1229* ALL edits or amendments must be made on the electronic/computer document * SubjectiveChief complaint:CP, VT, LIfe Vest alarmingHPI:This is a 53-year-old male with past medical history of coronary artery disease 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 Patient was admitted to [facility] a month ago for CABG was found [...] LifeVest alarming he end up going to [facility] found to have nonsustained VT frequent episodes [...] 12/28 1100 53 14 136/71 98 100 03/09 1000 54 11 145/68 98 98 03/09 0900 59 13 132/70 94 96 03/09 0800 97.7 03/09 0800 56 14 139/72 98 94 03/09 0700 56 13 135/75 99 98 03/09 0600 57 11 130/74 97 96 03/09 0500 59 14 129/71 93 96 03/09 0400 97.8 Room air 03/09 0400 63 22 140/76 101 100 03/09 0300 58 15 134/75 99 97 03/09 0201 60 18 98/54 73 95 03/09 [...] 03/08 1500 61 12 128/68 91 96 12/27 1400 69 16 143/83 108 96 12/27 1300 56 12 128/68 92 98 PATIENT [...] % (Auto) (14.0 - 32.0 %) 27.5 Erie % (Auto) (4.8 - 9.0 %) 7.7 Eos % (Auto) (0.3 - 3.7 %) 5.7 H Baso % (Auto) (0.0 - 2.0 %) 1.0 Neut # (Auto) (2.0 - 7.6 x10 3/uL) 5.33 Lymph # (Auto) (1.0 - 3.8 x10 3/uL) 2.55 Erie # (Auto) (0.1 - 0.8 x10 3/uL) [...] - 0.1 x10 3/uL) 0.00 Laboratory Tests 12/289 1739 Chemistry Magnesium (1.6 - 2.6 mg/dL) 2.21 2.29 Diagnosis, Assessment PlanConsultants: cardiology, cardiovascular surgery, critical/foot miter operator, 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 Coronary artery disease: Patient has chronic chest pain unclear if it is dueto his underlying coronary artery disease versus atypical chest pain due to the chronicity. 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 and plan was to [...] OF CHEST AND THEN CABG at 1230 RPT #:[id number] OF REPORTPRProgress hnoj1454-18-67A02:29:00G.UOPX91744871-8224SXNmgki able for patient auqkHORGOOIFCXCEOV1669-70-61D01:31:11 [facility] 2023-12-29 12:21:00 [id number] Pz8aQnYgpzV7d8ioWDuwtZ6Q/DF7/ Op3uBnKNNduKHsWRKikhRWaeMdF4354-95-77F54:21:[address] [address] PATIENT NAME: CHARAN RESTREPO ADMIT DATE: 11/27/23ACCOUNT NO: [id number] ROOM NO: [facility] AGE: 53 REPORT TYPE: OPERATIVE REPORT SEX: M ADMITTING PHYSICIAN:Papo [place] MD ATTENDING PHYSICIAN:Papo [place] MD OPERATION DATE: 11/30/2023 DATE OF PROCEDURE: 11/30/2023. Mr. Farrar was taken to the operating room for coronary artery bypass graftsurgery, but intraoperative ANAND showed that the patient has a clot in the left ventricle. The case was then discussed with the patient's manager infusion and a decision was made not to proceed with coronary artery bypass graft surgery. The procedure was abandoned and the patient was extubated in the operating room and moved to intensive care unit in stable condition. Dictated By: Rafi [place] MD Date Dictated: 12/29/2023 12:21:13Date Transcribed: 12/29/2023 17:42:55/[facility]/AHMJob #: [id number] ID: [id number] and Edited by Papo [place] MD On 01/05/24 12:42:17 PM at 1243 PATIENT NAME: CHARAN RESTREPO ldnztm1180-18-17K97:42:00G.[id number] lable for patient tuftDCXTMHCJMJEWZF8934-10-05B40:45:52 [facility] 2023-12-29 01:19:00 [id number] fOhSRWlN+fR8zDWMJiGgEzy5a2j3J T/1hb9EhOTAZF54XYKLrk2GQ5xG8820-66-27Y56:19:46785 9-[address] [place] [address] PATIENT NAME: CHARAN RESTREPO ADMIT DATE: 12/27/23ACCOUNT NO: [id number] ROOM NO: G.3308 AGE: 53 REPORT TYPE: eECHOCARDIOGRAM REPORT SEX: M ADMITTING PHYSICIAN:Jac Marsh MD ATTENDING PHYSICIAN:Marycruz Villalba MD *[place], [place] [address]Phone: Xqq: [phone] Echocardiogram Patient: Ray Restrepo Date: 4BP: 118 / 59URN: [id number]: [id number]#: [id number]: 1970Age: 53Gender: MHeight: 70 in / 177.8 cmWeight: 185 lb / 83.9 kgBMI/BSA: 26.5 kg/m 2 / 2.05 m 2*Ordering Physician: * Alex Ley *Interpreting Physician: * Merlene Rutherford MD*Gas Or Water Meter Installer: * Rebeka Wright Indications: Chest Pain, unspecified. [...] Ref 11/28/2023 Vol/bsa, S 40 ml/m 2 34 Vol/bsa, ES, 1-p A4C 43 ml/m 2 12 - 37 Vol, ES, 2-p 81 ml --------- Vol/bsa, ES, 2-p 40 ml/m 2 34 Vol/bsa, ES, A/L 43 ml/m 2 34 AP dim, ES MM 4.2 cm 3.0 [...] at 0119 PATIENT NAME: CHARAN RESTREPO :19:0 0G.[id number] for patient okhqGOREEMAHRWRCPF5811-00-41X22:20:11 [facility] 2023-12-28 20:46:00 [id number] nXroibjZ/azlC704LemDWK+99lXsw 8+KTaYAooX/Yc4qojteE0hVBTuD0300-35-29E90:46:00 [facility] HospitalCardiology ConsultationREPORT#:[id number] REPORT STATUS: SignedREPORT INITIALIZATION DATE:12/28/23 TIME: 2045 PATIENT: CHARAN RESTREPO UNIT #: [id number]#: [id number] [address] [birth year] AGE: 53 SEX: M ATTEND: DeejayMarycruz MDA AUTHOR: Merlene Rutherford MDREPT SERVICE DT/TIME: 12/28/232045* ALL edits or amendments must be made on the electronic/computer document * History of Present Illness HPIReason for consult:CP, VTChief complaint:CP, VT, LIfe Vest alarmingPCP:PCP: Jesusita Osuna MD HPI:This is a 53-year-old male with past medical history of coronary artery disease 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 Patient was admitted to [facility] a month ago for CABG was found [...] LifeVest alarming he end up going to [facility] found to have nonsustained VT frequent episodes [...] 12/27 1800 66 18 146/76 104 99 03/08 [...] 18 132/65 92 97 03/07 2055 97.4 24 hour I O ending at [...] softLower extremity: LE assessment: no cyanosis, no edemaNeuro/DIRECTORY OPERATOR: alert, oriented X 3, normal speechSkin: [...] (Auto) (14.0 - 32.0 %) 23.0 20.0 Erie % (Auto) (4.8 - 9.0 %) 6.3 5.6 Eos % (Auto) (0.3 - 3.7 %) 4.4 H 3.8 H Baso % (Auto) (0.0 - 2.0 %) 0.8 0.9 Neut # (Auto) (2.0 - 7.6 x10 3/uL) 6.17 6.86 Lymph # (Auto) (1.0 - 3.8 x10 3/uL) 2.19 1.99 Erie # (Auto) (0.1 - 0.8 x10 3/uL) [...] due to the chronicity. 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 Hyperlipidemia continue statin at 0705 [facility] #:[id number] OF REPORTOFIzbzatzqlltb1631-50-86B92:46:00G.PDOC2 [id number] for patient czhgXYJURONMDQJTWR5771-56-60J78:05:43 [facility] 2023-12-28 19:43:00 [id number]+CAf5vM hi1QrWcJOrhKHYLpyE25guJiOrPBK EWhoE+ds6yGYOiOtRzYsVQlPNEz1053-66-07Y69:43:00 [facility] ([facility])Hospitalist Progress NoteREPORT#:[id number] REPORT STATUS: SignedREPORT INITIALIZATION DATE:12/28/23 TIME: 1942 PATIENT: CHARAN RESTREPO UNIT #: [id number]#: [id number] [place]OM[facility]ED[facility]DOB: [birth year] AGE: 53 SEX: M ATTEND: Marycruz Villalba MDADM AUTHOR: Marycruz Villalba MDREPT SERVICE DT/TIME: 12/28/231942* ALL edits or amendments must be made on the electronic/computer document * SubjectiveChief complaint:no complaintstime seen 11 am Objective GeneralVS/I O:Vital Signs: Date Time Temp Pulse Resp B/P B/P Pulse O2 O2 Flow FiO2 Mean Ox Delivery Rate 12/27 1901 57 13 106/52 75 96 03/08 [...] 03/07 2100 72 18 132/65 92 97 12/26 2054 97.4 12/26 2044 67 16 133/67 94 97 12/27 2019 [...] no distressAbdomen: normal bowel sounds, softExtremities: no edemaNeuro/DIRECTORY OPERATOR: alert, normal speechSkin: intact, no rashPsychiatry: [...] patient Nicotine patch but he declined.Pain control: [place] PRNDVT ppx: AC EliquisLabs [place] [facility] [place]No acute cardiopulmonary process.Plan of care discussed with patient/NurseFurther rec's as per clinical course. 12/28/23- amiodarone gtt as needed- eliquis- ssi/fingersticks- smoking cessation- am labs- cardio input pending- remains in ccu at 1350 RPT #:[id number] OF REPORTPRProgress pppo7497-14-36D68:43:00G.SVZE63906965-4828OTErmnw able for patient pgvnCFGIIESRHBHXWG6388-92-40P70:50:58 [facility] 2023-12-28 12:44:00 [id number] qdgmBSnE0FADDngPVFTwEWV9fJAw5 60rgO78fHtlfOqL1rhabfJlS1QE8558-35-87L37:44:00 [facility] ([facility])Critical Care Progress NoteREPORT#:[id number] REPORT STATUS: SignedREPORT INITIALIZATION DATE:12/28/23 TIME: 1243 PATIENT: CHARAN RESTREPO UNIT #: [id number]#: [id number] [address] [birth year] AGE: 53 SEX: M ATTEND: Marycruz Villalba AUTHOR: Michelle Galvez SERVICE DT/TIME: 12/28/23 1244* ALL edits or amendments must be made on the electronic/computer document * SubjectiveHPI:Charan Restrepo is a 53-year-old male with past medical history significant for low ejection fraction, history of coronary disease, left atrial clot on Eliquis,presented to the ER at [facility] in [place] with chest pain. He also complained of [...] OLast Documented: Result Date Time Temp 97.6 12/27 0800 Pulse Ox 97 12/28 0700 B/P 118/63 12/27 0800 B/P Mean 84 [...] all, normal capillary refill, normal range of motionNeuro/DIRECTORY OPERATOR: alert, oriented X 3 Diagnosis, Assessment PlanConsultants: cardiology, cardiovascular surgery, critical/foot miter operator, hospitalistCode status: full codeAdditional comments:Interval Events:12/28/23:Afib-now in [...] Care Time 33 min at 1343 RPT #:[id number] OF REPORTPRProgress sqdk3362-50-11S85:44:00G.ZVYH58073909-3179BJRfcfk able for patient afjbKBNGEGRYDJXQGV2887-02-27S87:43:33 [facility] 2023-12-27 23:08:00 [id number] FKnPrNRYsFDPyrnonTZFMUlvKFLgw vWuTe/sYqQ8swHlFiiAi36SBvke1272-71-39Z70:08:00 [facility] HospitalHospitalist History PhysicalREPORT#:[id number] REPORT STATUS: SignedREPORT INITIALIZATION DATE:12/27/23 TIME: 2307 PATIENT: CHARAN RESTREPO UNIT #: [id number]#: [id number] [address] [birth year] AGE: 53 SEX: M ATTEND: Jemal Young AUTHOR: Tatum WilsonPREPT SERVICE DT/TIME: 12/27/232307* ALL edits or amendments must be made on the electronic/computer document * History of Present Illness HPIChief complaint:Chest pain, shortness of breath.PCP:PCP: Jesusita Osuna MD HPI:Charan Sweet is a 53 yrs old male with Pmhx CAD, DM II,Life vest, left atrial clot( on AC Eliquis) and tobacco abuse who presented to outside ED at [facility] in [place] for c/o chest pain and shortness of [...] Status Admin Apixaban 5 MG BID 12/27 0900 AC (ELIQUIS 5MG TABLET) PO 03/27 0859 Heparin Sodium/ 500 ML .STK-MED ONE 12/27 0658 DC Sodium Chloride IV (HEPARIN 1,000 UNITS/ NS 500ML) Cardiovascular Drugs Sig/Marie Start time Last Medication Dose Route Stop Time Status Admin Atorvastatin Calcium 40 MG BEDTIME 12/27 2100 AC (LIPITOR) PO 01/26 205 Metoprolol Succinate 25 MG DAILY 12/27 0900 AC (TOPROL XL) PO 03/27 0859 Nitroglycerin 0.4 MG Q5M PRN PRN 12/26 2115 AC (NITROSTAT) SL 03/26 211 Amiodarone HCl 450 MG ASDIR 12/26 204 CKD 12/26 (AMIODARONE HCL) IV 03/26 2044 [...] 12/26 2200 AC 12/27 Acetaminophen PO 12/31 2159 0404 (NORCO 10/325) Magnesium Sulfate/ 100 ML [...] 12/265 69 14 138/73 99 95 12/26 2100 72 18 132/65 92 97 12/265 97.4 12/26 2044 67 16 133/67 94 97 12/27 2019 69 97 12/27 1999 67 13 124/66 89 94 03/07 1930 73 14 132/77 99 100 03/07 [...] no clubbing, no cyanosis, no edemaMusculoskeletal: normal inspectionNeuro/DIRECTORY OPERATOR: alert, oriented X 3, normal speechSkin: [...] - 5.47 IU/mL) 3.92 Laboratory Tests 12/26 03 2121 1225 Hematology WBC (4.5 - 11.0 [...] (Auto) (14.0 - 32.0 %) 20.0 19.3 Erie % (Auto) (4.8 - 9.0 %) 5.6 8.3 Eos % (Auto) (0.3 - 3.7 %) 3.8 H 2.8 Baso % (Auto) (0.0 - 2.0 %) 0.9 0.7 Neut # (Auto) (2.0 - 7.6 x10 3/uL) 6.86 7.42 Lymph # (Auto) (1.0 - 3.8 x10 3/uL) 1.99 2.10 Erie # (Auto) (0.1 - 0.8 x10 3/uL) [...] pH (5.0 - 7.0) 5.0 Ur Specific Morris (1.005 - 1.030) 1.008 Urine Protein (NEGATIVE) [...] Eliquis)Hx Diabetes Mellitus IIHx CAD PlanAdmit to [facility] CardiologyConsult Critical careContinous Telemetry monitoring - to [...] patient Nicotine patch but he declined.Pain control: [place] PRNDVT ppx: AC [place]quisLabs [place] [facility] [place]:No acute cardiopulmonary process.Plan of care discussed with patient/NurseFurther rec's as per clinical course. at 0748 at 0833 RPT #:[id number] OF REPORTHPHistory and physical cvierbdluym1735-16-51R32:08:00G.GWDB67988202-7415 AVAvailable for patient syvlHYDFWPOSVDSNII5760-27-26N67:49:04 [facility] 2023-12-27 22:05:00 [id number] 7ziSAIRFYr41VazgBQcvrUVie32Fb yIEeYawxpxYXPruxVz6ml2wxNGR2069-43-10R72:05:00 [facility] ([facility])Critical Care Consult NoteREPORT#:[id number] REPORT STATUS: SignedREPORT INITIALIZATION DATE:12/27/23 TIME: 2204 PATIENT: CHARAN RESTREPO UNIT #: [id number]#: [id number] [address] [birth year] AGE: 53 SEX: M ATTEND: Jac Marsh AUTHOR: Alex Ley MDREPT SERVICE DT/TIME: 12/27/232204* ALL edits or amendments must be made on the electronic/computer document * History of Present Illness HPIRequesting clinician: ER PhysicianReason for consult: Andres Gonzales Chief complaint: Chest painDyspneaHistory of CADLeft Atrial Clot on Eliquis PCP:PCP: Jesusita Osuna MD HPI: Charan Restrepo is a 53-year-old male with past medical history significant for low ejection fraction, history of coronary disease, left atrial clot on Eliquis,presented to the ER at [facility] in [place] with chest pain. He also complained of [...] Amiodarone HCl 450 MG ASDIR 12/26 2045 CKD (AMIODARONE HCL) IV 03/26 2044 Dextrose/Water 250 ML (D5%W NON-DEHP) Hydralazine HCl 10 MG Q2H PRN PRN 12/26 1515 AC (APRESOLINE) IV 12/27 1414 Amiodarone HCl 450 MG X1ED STA 12/26 1254 AC 12/26 (AMIODARONE HCL) IV 01/06 0753 1325 Dextrose/Water 250 ML (D5%W NON-DEHP) Central Nervous System Agents Sig/Marie Start time Last Medication Dose Route Stop Time Status Admin Aspirin 81 MG DAILY 12/27 09 AC (ASPIRIN) PO 03/27 0859 Hydrocodone Bitart/ 1 TAB Q4H PRN PRN 12/26 2200 AC 12/26 Acetaminophen PO 12/31 2159 2202 (NORCO 10/325) Magnesium Sulfate/ 100 ML ONCE ONE 12/26 2200 CKD / Dextrose IV 12/26 2259 2203 (MAGNESIUM SULFATE [...] BEDTIME 12/27 2100 r (Semglee) SUBQ 03/27 205 Insulin Human Lispro 0 AC HS 12/26 1630 AC (HUMALOG) SUBQ 12/27 1414 Glucagon 1 MG ASDIR PRN 12/26 1515 AC (GLUCAGON) IM 12/27 1414 Allergies:Coded Allergies:No Known Allergies (03/18/23) 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 Skin:Denies: [...] - 5.47 IU/mL) 3.92 Laboratory Tests 12/26 12/26 2121 1225 Hematology WBC (4.5 - 11.0 [...] (Auto) (14.0 - 32.0 %) 20.0 19.3 Erie % (Auto) (4.8 - 9.0 %) 5.6 8.3 Eos % (Auto) (0.3 - 3.7 %) 3.8 H 2.8 Baso % (Auto) (0.0 - 2.0 %) 0.9 0.7 Neut # (Auto) (2.0 - 7.6 x10 3/uL) 6.86 7.42 Lymph # (Auto) (1.0 - 3.8 x10 3/uL) 1.99 2.10 Erie # (Auto) (0.1 - 0.8 x10 3/uL) [...] Urine Cannabinoids (NEGATIVE) NEGATIVE Laboratory Tests 12/26 180 Urines Urine Color (YEL/STRAW) YELLOW Urine Appearance (CLEAR) CLEAR Urine pH (5.0 - 7.0) 5.0 Ur Specific Morris (1.005 - 1.030) 1.008 Urine Protein (NEGATIVE) [...] Diagnosis, Assessment Plan Diagnosis, Assessment PlanConsultants: cardiology, critical/foot miter operator, hospitalistPlan discussed with: patient, nurse, interdisc care [...] clot on Eliquis,presented to the ER at [facility] in [place] with chest pain. He also complained of [...] 4 extremities. Patient admitted to CCU room #3308LifeVest firingNonsustained ventricular tachycardiaHistory of left atrial clot [...] DVT prophylaxis: On Eliquis Alex Ley MD [facility].45 pm at 0614 RPT #:[id number] OF REPORTKVRkfskdbfoenx1311-04-50D36:05:00G.PDOC2 [id number] for patient hxvlBZRUSSQSSWHSHF4486-62-17M85:14:46 [facility] 2023-12-27 12:20:00 [id number] aKel04ppWV13DQIJ8IWmB9V3bdguY bk4QPPcAF72BP9hrPdXBjv9m7Q32815-14-62E40:20:00 [facility] ([facility]ERGENCY PROVIDER REPORTREPORT#:[id number] REPORT STATUS: SignedDATE:12/27/23 TIME: 1220 PATIENT: CHARAN RESTREPO UNIT #: [id number]#: [id number] [address] 53 SEX: M PCP PHYS: Jesusita Osuna AUTHOR: Margarito Ricks MD * ALL edits [...] is unsure of the name of the manager infusion that he is supposed to be following with. [facility] [place] [facility]. Patient [...] stroke, coronary arterial occlusion and . References:Leif RICHARDS, Bindu TERRAZAS, et al. Chest pain in the emergency room: value of the HEART score. [facility] Heart J. 2008 Tim:16(6):191-6. PubMed PMID: 42794763; PubMed CentralPMCID: [id number]. Bindu TERRAZAS, Leif RICHARDS, et al. A prospective validation of the HEART score for chest pain patients at the emergency department. Int J Cardiol. 2013 Jul 3:168(3):2153-8. Doi: 10.1016/j.ijcard.2013.01.255. Epub 2012Dec 26. PubMed PMID: 50718919. Review of Systems Free Text ROS NotesFree Text ROS Notes1.Constitutional: No fever, No chills, No weight loss, No fatigue2. Head: No trauma, or No Headache3. Eyes: No eye pain, No eye redness4. Ears, nose, mouth, throat: no sore throat, no ear pain, no tooth pain, no nasal congestion5. Cardiovascular: Endorses chest pain or discomfort, no palpitations6. Respiratory: no lgqhljefy-oc-bzgdrm, no cough7. GI: No nausea, no vomiting, no diarrhea, no constipation, no abdominal pain8 .: Denies dysuria, No hematuria, denies flank pain, denies reproductive organ pain/discomfort8. Musculoskeletal: no muscle pain, no swelling9. Skin: No rash, no vfgkajv91. Neurologic: No weakness or numbness.11.Back: No Back Pain, No back vvfilf94. 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 Osuna Patient [employer] ASA PPO patient will be admitted to [...] Q4H PRN PRN 12/26 1515 DC 12/27 IV 12/27 1414 0934 Electrolytic, Caloric, And [...] Pulse Ox 100 12/26 1205 B/P 139/78 12/26 1205 B/P Mean 98 12/26 1205 O2 Delivery Room air 12/26 1205 Temp 37.0 12/26 1205 Pulse 72 12/26 1205 Resp 16 12/26 1205 Last Documented: Result Date Time Pulse Ox 98 12/26 1432 B/P 128/78 / 1432 B/P Mean 98 12/26 1432 Pulse 62 03/ 1432 Resp 16 12/26 1432 O2 Delivery Room air 12/26 1205 Temp 37.0 12/26 1205 All vital signs available at the time of this entry have been reviewed. Condition Stable, Critical Clinical ImpressionClinical ImpressionPrimary Impression: V tachSecondary Impressions: Chest pain Disposition DecisionHospitalize Hosp Physician Name Jac Marsh MD [facility] Physician Hospitalist Request Time 151 [...] with the family or caregiver. at 2222RPT #:[id number] OF REPORTEDEmergen department felroe6094-59-79W74:20:00G.THCL73637333-5440VLUqz ilable for patient fpcgXVUYDNRUNHQAVK0563-35-84T23:23:15 [facility] 2023-12-03 14:50:00 [id number] KoZ1ouL205ZWpgVron25xTV61aw2g CnCgY0vzG7Byo6SeNs5zpyTCzrO5898-56-86X66:50:00 [facility] ([facility]ITALHospitalist Discharge SummaryREPORT#:[id number] REPORT STATUS: SignedREPORT INITIALIZATION DATE:12/03/23 TIME: 145 PATIENT: CHARAN RESTREPO UNIT #: [id number]#: [id number] [address] [birth year] AGE: 53 SEX: M ATTEND: [...] in 2 weeks Consultants: cardiology, cardiovascular surgery, critical/foot miter operator, hospitalist Free Text DxA P NotesFree text [...] OLast Documented: Result Date Time Temp 36.6 02/ 1200 Pulse Ox 96 02/ 1000 B/P 141/67 02/ 1000 B/P Mean 96 02/ 1000 Pulse 75 02/ 1000 Resp 16 12/03 1000 O2 Delivery Room air 02/10 2247 FiO2 21 12/01 1931 O2 Flow [...] distentionExtremities: moves all, no calf tenderness, no edemaNeuro/DIRECTORY OPERATOR: alert, oriented X 3, CNII-XII intact, [...] % (Auto) (14.0 - 32.0 %) 22.2 Erie % (Auto) (4.8 - 9.0 %) 9.9 H Eos % (Auto) (0.3 - 3.7 %) 4.4 H Baso % (Auto) (0.0 - 2.0 %) 1.3 Neut # (Auto) (2.0 - 7.6 x10 3/uL) 4.87 Lymph # (Auto) (1.0 - 3.8 x10 3/uL) 1.77 Erie # (Auto) (0.1 - 0.8 x10 3/uL) [...] to: Home/Self CareAdditional Discharge Routines: PCP Follow-Up, Carroting Machine Operator Follow-UpDiet: Diabetic, CardiacActivity: As Tolerated Follow-up [...] best of my knowledge. at 1851 RPT #:[id number] OF REPORTDSDischarge fjjjmrv3136-98-42A41:50:00G.LPZZ89404213-1085ZIIp ailable for patient aepqKTCJWIZJJBVAHX0590-64-84P81:51:48 [facility] 2023-12-03 12:42:00 [id number] PqBXGV9uU51mMJLRsPp5qLh/JlJWi 9kpTLg9fzYoigP8i3/2o94W+KaY9436-64-76R82:42:00 [facility] HospitalCardiothoracic Surgery ProgREPORT#:[id number] REPORT STATUS: SignedREPORT INITIALIZATION DATE:12/03/23 TIME: 124 PATIENT: CHARAN RESTREPO UNIT #: [id number]#: [id number] [address] [birth year] AGE: 53 SEX: M ATTEND: [...] foleyExtremities: dry, moves allMusculoskeletal: full range of motionNeuro/DIRECTORY OPERATOR: alert, oriented X 3Skin: dry, intact, [...] % (Auto) (14.0 - 32.0 %) 22.2 Erie % (Auto) (4.8 - 9.0 %) 9.9 H Eos % (Auto) (0.3 - 3.7 %) 4.4 H Baso % (Auto) (0.0 - 2.0 %) 1.3 Neut # (Auto) (2.0 - 7.6 x10 3/uL) 4.87 Lymph # (Auto) (1.0 - 3.8 x10 3/uL) 1.77 Erie # (Auto) (0.1 - 0.8 x10 3/uL) [...] 2058 Insulin Human Lispro 0 AC HS 11/270 AC 11/27 SUBQ 02/24 1629 1625 Mupirocin [...] past, hypertension, diabetes, hyperlipidemia who presented to [facility] with complaints of chest pains. He previously underwent left heart catheterization about 1 month ago and was referred for bypass surgery in the outpatient setting however he did not get hisoutpatient appointment yet. The patient reports back to the hospital with complaints of chest pains radiating to the left arm. 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 [...] response to plavix 117, [facility] uploaded-will reviewContinue preop workupI will [...] for thrombus, after talking with the patient's manager infusion we decided to cancel surgery due to the increase risk of thromboembolic event. Procedure cancelled today and CTA heart ordered for further evaluation 12/01/23Patient doing wellCTA heart reviewed, report pendingStop heparin and start eliquis 5 mg BIDDiscontinue central lineDiscussed plan of care with manager infusion and will hold off on surgery due [...] all questions answered Consultants: cardiology, cardiovascular surgery, critical/foot miter operator, hospitalist at 1202 RPT #:[id number] OF REPORTPRProgress bnms0609-72-37L33:42:00G.OCNI13556581-9036ECIcrsc able for patient mbuuZXSEOLSNTZPNVS2148-54-48E95:03:20 [facility] 2023-12-03 08:30:00 [id number] GFhcpQw/X78TXsrmHhTwg1ILztJCV [id number]:30:00 [facility] ([facility])Cardiology Progress NoteREPORT#:[id number] REPORT STATUS: SignedREPORT INITIALIZATION DATE:12/03/23 TIME: 829 PATIENT: CHARAN RESTREPO UNIT #: [id number]#: [id number] [address] AGE: 53 SEX: M ATTEND: Papo May[place] MDA AUTHOR: Merlene Rutherford MDREPT SERVICE DT/TIME: 12/03/23 [...] 12/03 0545 65 19 127/77 95 98 02 0401 55 11 137/63 91 95 02 0400 97.9 02 0300 70 15 145/76 103 95 02 0200 57 8 132/74 96 95 02 0100 58 15 129/65 88 96 02 0000 60 15 124/71 90 97 02/ 2300 57 13 138/65 94 94 02 2200 56 13 135/63 91 93 12/02 2107 65 18 136/67 94 95 02 2030 61 16 117/61 84 94 021999 97.6 12/02 1999 62 12 121/62 86 92 12/02 1930 64 14 119/63 86 91 02 1900 65 16 120/59 83 92 12/02 1830 66 14 117/61 83 92 02 1800 66 15 121/61 83 92 12/02 1730 60 16 116/63 81 93 12/02 1700 66 22 147/73 104 95 12/02 1630 61 13 128/65 89 95 12/02 1600 97.9 02 1600 71 14 125/65 90 93 12/02 1531 57 14 101/49 71 96 12/02 1530 61 15 91 02 1500 61 15 119/62 84 93 02 1430 63 16 125/70 90 93 02 1400 66 17 134/66 93 94 02 1330 62 14 111/61 81 95 12/02 [...] sounds, no distentionLower extremity: LE assessment: no edemaNeuro/DIRECTORY OPERATOR: alert, oriented X 3, no motor [...] % (Auto) (14.0 - 32.0 %) 22.2 [place] % (Auto) (4.8 - 9.0 %) 9.9 H Eos % (Auto) (0.3 - 3.7 %) 4.4 H Baso % (Auto) (0.0 - 2.0 %) 1.3 Neut # (Auto) (2.0 - 7.6 x10 3/uL) 4.87 Lymph # (Auto) (1.0 - 3.8 x10 3/uL) 1.77 [place]rie # (Auto) (0.1 - 0.8 x10 3/uL) [...] NotesFree Text DxA P Notes:1. 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 and was referred for CABG [...] Dr. Rodriguez this week. at 2048 RPT #:[id number] OF REPORTPRProgress vgsz1304-60-05P60:30:00G.BPPM95833901-3483ASClieu able for patient duccNJIQRBNYPIGXQW3361-44-62Y40:48:50 [facility] 2023-12-02 12:48:00 [id number] FJSvrgqSO/CV7+9m07XVCHPG2+snu l+kp/YY41zIOklmA1G7VoF7CqDK7640-90-84X00:48:00 [facility] HospitalHospitalist Progress NoteREPORT#:[id number] REPORT STATUS: SignedREPORT INITIALIZATION DATE:12/02/23 TIME: 1248 PATIENT: CHARAN RESTREPO UNIT #: [id number]#: [id number] [address] [birth year] AGE: 53 SEX: M ATTEND: [...] 12/02 0412 55 13 97/57 70 95 / 0401 53 13 85/42 60 96 / 0331 52 13 95/52 70 96 12/02 0300 55 9 102/50 72 95 / 0230 58 13 118/59 82 94 12/02 0200 60 14 114/57 78 96 12/02 0116 65 16 134/69 95 95 12/02 0100 56 13 110/56 79 93 12/02 0044 63 12 113/59 79 95 02 2247 36.8 61 13 128/66 0.0 95 Room air 12/01 2115 36.5 69 13 154/70 0.0 96 Room air 12/01 2102 75 40 113/74 87 95 12/01 2100 60 32 119/71 91 97 02 2000 36.8 02/ 2000 56 13 110/60 79 97 02 1931 100 Room air 21 02 1900 53 13 111/59 79 96 02 1800 54 12 111/58 77 95 0210 1700 56 14 122/62 86 96 12/01 [...] distentionExtremities: moves all, no calf tenderness, no edemaNeuro/DIRECTORY OPERATOR: alert, oriented X 3, CNII-XII intact, [...] % (Auto) (14.0 - 32.0 %) 21.8 [place] % (Auto) (4.8 - 9.0 %) 7.4 Eos % (Auto) (0.3 - 3.7 %) 4.0 H Baso % (Auto) (0.0 - 2.0 %) 0.7 Neut # (Auto) (2.0 - 7.6 x10 3/uL) 6.35 Lymph # (Auto) (1.0 - 3.8 x10 3/uL) 2.11 Erie # (Auto) (0.1 - 0.8 x10 3/uL) [...] catheter Diagnosis, Assessment PlanConsultants: cardiology, cardiovascular surgery, critical/foot miter operator, hospitalist Free Text DxA P NotesFree text [...] -- continue current management at 2017 RPT #:[id number] OF REPORTPRProgress vgfm1452-18-09R33:48:00G.BPJU19201293-8934VCSkbtg able for patient xhsmZDQDUWYPRLTFVE1962-56-47Z46:17:49 [facility] 2023-12-02 12:09:00 [id number]+c9F/Vxz 2NdPQFc3UaRetFFt/CzcM2oKQYtpi /+oZOL/Lh9tfAMxSBnxHmTr5xYX4944-73-88E91:09:00 [facility] ([facility])Critical Care Progress NoteREPORT#:[id number] REPORT STATUS: SignedREPORT INITIALIZATION DATE:12/02/23 TIME: 120 PATIENT: CHARAN RESTREPO UNIT #: [id number]#: [id number] [address] [birth year] AGE: 53 SEX: M ATTEND: Papo Mayfield MDADM AUTHOR: Michelle Galvez APRNNPREPT SERVICE DT/TIME: 12/02/23 1209* ALL edits or amendments must be made on the electronic/computer document * SubjectiveChief complaint:Chest PainHPI:53-year-old gentleman with past medical history of coronary artery disease status post previous PCI in the past, hypertension, diabetes, hyperlipidemia whotransferred from [facility] to [facility] for CABG evaluation. Objective GeneralVS/I OLast Documented: [...] the past, hypertension, diabetes, hyperlipidemia whotransferred from [facility] to [facility] for CABG evaluation. 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 Per CTS transition to Eliquis 5 mg BID x 3 month-repeat ECHO in 3 month. No surgery until follow up ECHO. D/c right IJ-may transfer to tele floor. 12/02/23:Transfer to CCU last night 2 to chest pain. On Nitro drip. Currently [...] critical care spent. Consultants: cardiology, cardiovascular surgery, critical/foot miter operator, hospitalist Quality: Gen Med Crit Care Current [...] best of my knowledge. at 1222 RPT #:[id number] OF REPORTPRProgress ehgj3670-76-25Z80:09:00G.WQLA03883522-9042MWPaqlg able for patient waseNVIVPNZFPFZRLW9761-12-05J97:23:09 [facility] 2023-12-02 11:59:00 [id number]+5 4eHnPAai0df+0DbNSr1ztFDMzVFsA 2u0ajNvP6id7vrKzn/jOt1NVLQm1917-90-30Y40:59:00 [facility] HospitalCardiothoracic Surgery ProgREPORT#:[id number] REPORT STATUS: SignedREPORT INITIALIZATION DATE:12/02/23 TIME: 1158 PATIENT: CHARAN RESTREPO UNIT #: [id number]#: [id number] [address]: [birth year] AGE: 53 SEX: M ATTEND: Papo [...] foleyExtremities: dry, moves allMusculoskeletal: full range of motionNeuro/DIRECTORY OPERATOR: alert, oriented X 3Skin: dry, intact, [...] % (Auto) (14.0 - 32.0 %) 21.8 Erie % (Auto) (4.8 - 9.0 %) 7.4 Eos % (Auto) (0.3 - 3.7 %) 4.0 H Baso % (Auto) (0.0 - 2.0 %) 0.7 Neut # (Auto) (2.0 - 7.6 x10 3/uL) 6.35 Lymph # (Auto) (1.0 - 3.8 x10 3/uL) 2.11 Erie # (Auto) (0.1 - 0.8 x10 3/uL) [...] past, hypertension, diabetes, hyperlipidemia who presented to [facility] with complaints of chest pains. He previously underwent left heart catheterization about 1 month ago and was referred for bypass surgery in the outpatient setting however he did not get hisoutpatient appointment yet. The patient reports back to the hospital with complaints of chest pains radiating to the left arm. 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 [...] response to plavix 117, [facility] uploaded-will reviewContinue preop workupI will [...] for thrombus, after talking with the patient's manager infusion we decided to cancel surgery due to the increase risk of thromboembolic event. Procedure cancelled today and CTA heart ordered for further evaluation 12/01/23Patient doing wellCTA heart reviewed, report pendingStop heparin and start eliquis 5 mg BIDDiscontinue central lineDiscussed plan of care with manager infusion and will hold off on surgery due [...] cardiologyAll questions answered. Consultants: cardiology, cardiovascular surgery, critical/foot miter operator, hospitalist at 1250 RPT #:[id number] OF REPORTPRProgress evmx9178-08-12U63:59:00G.DEUX13389771-8061DWDxrgv able for patient jbhoHXHUKELLMDCXTC9753-64-87F33:51:18 [facility] 2023-12-02 02:48:00 [id number] zyx+zwiQeCaO2aSwYJtxmrG6hJRXI a7dEV50yyZ4Zyc2h9Xxqvz/DWOX8129-63-44Q17:48:62935 0-[address] [address] PATIENT NAME: CHARAN RESTREPO ADMIT DATE: 11/27/23ACCOUNT NO: [id number] ROOM NO: [facility] AGE: 53 REPORT TYPE: eELECTROCARDIOGRAM REPORT SEX: M ADMITTING PHYSICIAN:Papo Mayfield MD ATTENDING PHYSICIAN:Papo Mayfield MD Order:[id number] Reason : CP Test Date/Time Stamp:[employer] Dec 02 2023 02:48:41Blood Pressure : / [...] MD at 1325 PATIENT NAME: CHARAN RESTREPO .[id number] AVAvailable for patient kkmqLZSPWXMHJRGBDN4363-21-15L22:25:41 [facility] 2023-12-01 13:03:00 [id number] /2f7XSw+DFsKNh7iXM6NAN5OuN6yV 7q+UWItP8c66cMR7YrhSt/mrcCJ8746-80-06Y28:03:00 [facility] ([facility])Cardiothoracic Surgery ProgREPORT#:[id number] REPORT STATUS: SignedREPORT INITIALIZATION DATE:12/01/23 TIME: 1303 PATIENT: CHARAN RESTREPO UNIT #: [id number]#: [id number] ROOM[facility]BED: [facility]-1DOB: [birth year] AGE: 53 SEX: M ATTEND: Papo [...] Temp 36.8 12/01 0800 Pulse Ox 97 12/01 0700 B/P 136/68 12/01 0700 B/P Mean 94 12/01 0700 Pulse 65 12/01 0700 Resp 18 12/01 699 FiO2 21 11/30 1913 O2 Delivery Room air 11/30 1912 O2 [...] foleyExtremities: dry, moves allMusculoskeletal: full range of motionNeuro/DIRECTORY OPERATOR: alert, oriented X 3Skin: dry, intact, [...] Tests 12/01 12/01 12/01 11/30 1036 0737 0418 2204 Chemistry Sodium (134 - 147 mEq/L) [...] (1.6 - 2.6 mg/dL) 2.06 Laboratory Tests 12/014 2146 Coagulation PTT ([place]) (25.0 - 39.5 Seconds) 27.8 58.8 H Laboratory Tests 12/01 0414 Hematology WBC (4.5 - 11.0 x10 3/uL) [...] (Auto) (14.0 - 32.0 %) 8.1 L Erie % (Auto) (4.8 - 9.0 %) 6.9 Eos % (Auto) (0.3 - 3.7 %) 0.5 Baso % (Auto) (0.0 - 2.0 %) 0.4 Neut # (Auto) (2.0 - 7.6 x10 3/uL) 10.26 H Lymph # (Auto) (1.0 - 3.8 x10 3/uL) 1.00 Erie # (Auto) (0.1 - 0.8 x10 3/uL) [...] delfinom personally rev'd, current med profile rev'd Quality: [...] past, hypertension, diabetes, hyperlipidemia who presented to [facility] with complaints of chest pains. He previously underwent left heart catheterization about 1 month ago and was referred for bypass surgery in the outpatient setting however he did not get hisoutpatient appointment yet. The patient reports back to the hospital with complaints of chest pains radiating to the left arm. 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 [...] response to plavix 117, [facility] uploaded-will reviewContinue preop workupI will [...] for thrombus, after talking with the patient's manager infusion we decided to cancel surgery due to the increase risk of thromboembolic event. Procedure cancelled today and CTA heart ordered for further evaluation 12/01/23Patient doing wellCTA heart reviewed, report pendingStop heparin and start eliquis 5 mg BIDDiscontinue central lineDiscussed plan of care with manager infusion and will hold off on surgery due to thrombus, repeat echo in 3 months to reevaluate, continue blood thinners, no surgical intervention at this timeFollow up with cardiology for management of chest painPatient verbalized understanding and all questions answered. Consultants: cardiology, cardiovascular surgery, critical/foot miter operator, hospitalist at 1249 RPT #:[id number] OF REPORTPRProgress ojam2739-61-90D29:03:00G.XVOK03313820-8822DUVhdge able for patient ztyiLFVJIBHHNCLXKA0957-92-23Z14:50:27 [facility] 2023-12-01 12:02:00 [id number] K4X/5/zyxJRKduwX853/T66ghqfxt NlhokY8GROqDii4NCZBaNzD2rmM0999-65-82M42:02:00 [facility])Critical Care Progress NoteREPORT#:[id number] REPORT STATUS: SignedREPORT INITIALIZATION DATE:12/01/23 TIME: 1201 PATIENT: CHARAN RESTREPO UNIT #: [id number]#: [id number] [address] [birth year] AGE: 53 SEX: M ATTEND: Papo Mayfield AUTHOR: Michelle Galvez SERVICE DT/TIME: 12/01/23 1202* ALL edits or amendments must be made on the electronic/computer document * SubjectiveChief complaint:Chest PainHPI:53-year-old gentleman with past medical history of coronary artery disease status post previous PCI in the past, hypertension, diabetes, hyperlipidemia whotransferred from [facility] to [facility] for CABG evaluation. Objective GeneralVS/I OLast Documented: Result Date Time Temp 98.3 12/01 799 Pulse Ox 97 12/01 699 B/P 136/68 12/01 699 B/P Mean 94 12/01 699 Pulse 65 12/01 699 Resp 18 12/01 699 FiO2 21 11/30 1912 O2 Delivery Room air 11/30 1912 O2 Flow Rate 2 11/27 899 24 hour I O ending at 0700: 12/01 1900 Intake Total 964.00 970 Output Total [...] the past, hypertension, diabetes, hyperlipidemia whotransferred from [facility] to [facility] for CABG evaluation. Problems:* Multivessel disease* Chest [...] critical care spent. Consultants: cardiology, cardiovascular surgery, critical/foot miter operator, hospitalist Quality: Gen Med Crit Care Current [...] best of my knowledge. at 1231 RPT #:[id number] OF REPORTPRProgress mupc5968-20-39S18:02:00G.JBBF97155186-0822OIKdjgm able for patient ebzqGRWEEOMKUOJJSG4536-01-26Y19:11:26 [facility] 2023-12-01 12:02:00 [id number] DrMrHak4UyCWpPZShOyLv0WrH2/eu 4dKrbQjibhc9ih0BymsmsD4il/69592-44-73C24:02:00 [facility] HospitalHospitalist Progress NoteREPORT#:[id number] REPORT STATUS: SignedREPORT INITIALIZATION DATE:12/01/23 TIME: 120 PATIENT: CHARAN RESTREPO UNIT #: [id number]#: [id number] [address] [birth year] AGE: 53 SEX: M ATTEND: [...] 02/ 2200 72 14 117/62 83 96 02/ 2100 100 21 128/78 96 97 11/30 2009 36.4 11/30 1999 75 16 119/67 87 97 02/ 1913 98 Room air 21 11/30 1900 78 15 119/65 85 97 02/ 1817 89 38 98 02/ 1800 68 11 128/68 91 98 02/ 1730 69 15 96 11/30 1700 73 14 126/66 89 98 02/ 1630 84 26 100 11/30 1612 65 11 100 11/30 1601 79 42 148/82 107 98 11/30 1600 74 21 99 02 1531 66 127/66 91 99 11/30 1504 74 16 99 / 1500 75 14 98 / 1430 67 11 138/68 90 97 02/ 1400 207/94 130 02/ 1400 94 27 176/83 119 100 11/30 1340 83 100 50 11/30 1340 83 28 100 11/30 1330 68 12 119/65 84 99 02/ 1300 250/112 157 /09 1300 109 21 211/114 155 100 11/30 1241 142/65 92 11/30 1241 61 12 141/77 103 100 11/30 1239 50 11/30 1239 100 Ventilator 50 24 hour I O ending at 0700: 12/01 0700 02/09 1900 Intake Total 964.00 970 [...] distentionExtremities: moves all, no calf tenderness, no edemaNeuro/DIRECTORY OPERATOR: alert, oriented X 3, CNII-XII intact, [...] (1.6 - 2.6 mg/dL) 2.06 Laboratory Tests 12/014 2146 Coagulation PTT ([place]) (25.0 - 39.5 [...] (Auto) (14.0 - 32.0 %) 8.1 L [place] % (Auto) (4.8 - 9.0 %) 6.9 Eos % (Auto) (0.3 - 3.7 %) 0.5 Baso % (Auto) (0.0 - 2.0 %) 0.4 Neut # (Auto) (2.0 - 7.6 x10 3/uL) 10.26 H Lymph # (Auto) (1.0 - 3.8 x10 3/uL) 1.00 Erie # (Auto) (0.1 - 0.8 x10 3/uL) [...] edema.Impression By: [email or web address] - Sarah Brizuela M.D. Treatment Prophylaxis Treatment ProphylaxisDrain(s)/tube(s): Drain(s)/tube(s): urinary catheter Diagnosis, Assessment PlanConsultants: cardiology, cardiovascular surgery, critical/foot miter operator, hospitalist Free Text DxA P NotesFree text [...] he is hemodynamic stable at 2017 RPT #:[id number] OF REPORTPRProgress fdgw2649-29-77G70:02:00G.DVST75525871-7317CYXmsbq able for patient agmvXQRCVCHDHICJGB8017-65-09C87:21:41 [facility] 2023-11-30 13:13:00 [id number]/gUXnU oC+CiiVr/ONX/RBdRabvl/VBNCVEl 5HeIRGiyumNXQniaPmR66SLRVCq4304-33-91T68:13:00 [facility] ([facility])Critical Care Consult NoteREPORT#:[id number] REPORT STATUS: SignedREPORT INITIALIZATION DATE:11/30/23 TIME: 1312 PATIENT: CHARAN RESTREPO UNIT #: [id number]#: [id number] [address] [birth year] AGE: 53 SEX: M ATTEND: Papo Mayfield MDADM AUTHOR: Viki Cartwright SERVICE DT/TIME: 11/30/23 1313* ALL edits or amendments must be made on the electronic/computer document * History of Present Illness HPIRequesting clinician: Dr. Judd for consult:ICU mgtChief complaint:Chest PainPCP:PCP: Jesusita Osuna MD HPI:53-year-old gentleman with past medical history of coronary artery disease status post previous PCI in the past, hypertension, diabetes, hyperlipidemia whotransferred from [facility] to [facility] for CABG evaluation. History - Adult longitudinalPast medical history:Reports: Coronary artery disease, Diabetes mellitus. Past surgical history:Reports: (Left Tib, Fib). Family history:Denies: CAD < 40 yrs old. 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 Objective Physical ExamVS/I O:Last Documented: Result Date Time FiO2 50 11/30 1239 Pulse Ox 100 11/30 1239 O2 Delivery Ventilator 11/30 1239 Pulse 135 11/30 0841 Resp 32 11/30 0841 B/P 122/67 11/30 0800 B/P Mean 89 11/30 0800 Temp 98.9 11/30 0717 O2 Flow Rate [...] 20 ML .STK-MED ONE IV (DC) Rocuronium [place] (ZEMURON) 0 .STK-MED ONE IV (DC) Aminocaproic [...] (Auto) (14.0 - 32.0 %) 22.3 25.0 Erie % (Auto) (4.8 - 9.0 %) 8.0 8.0 Eos % (Auto) (0.3 - 3.7 %) 4.7 H 4.9 H Baso % (Auto) (0.0 - 2.0 %) 1.2 1.0 Neut # (Auto) (2.0 - 7.6 x10 3/uL) 4.79 4.83 Lymph # (Auto) (1.0 - 3.8 x10 3/uL) 1.69 2.00 [place] # (Auto) (0.1 - 0.8 x10 3/uL) [...] 1805 NASAL: MRSA DNA Surveillance Screen - COMP11/27 1824 NASAL: MSSA Surveillance Screen - COMP11/27 1824 NASAL: MRSA DNA Surveillance Screen - COMP Radiology data:Recent Impressions:RADIOLOGY - XR CHEST 1 V 11/30 1248 Report Impression - Status: SIGNED Entered: 11/30/2023 0938 IMPRESSION: Interval placement of endotracheal tube in [...] ventilatorVentilator: assist controlRASS Score: Copyright 2012 [facility], All rights reserved Copyright 2012 [facility], All rights reserved RASS Score: -2 Light [...] 11/30 1245 Active Consultants: cardiology, cardiovascular surgery, critical/foot miter operator, hospitalistPlan discussed with: spouse/partner, collaborating MD, nurse, pharmacy/pharmacist Code Status/Resusc. DiscussionCode status: full codeFree text DxA P:53-year-old gentleman with past medical history of coronary artery disease status post previous PCI in the past, hypertension, diabetes, hyperlipidemia whotransferred from [facility] to [facility] for CABG evaluation. Problems:* Multivessel disease* Chest [...] of critical care spent. at 1826 RPT #:[id number] OF REPORTPYSkkurtuwfnvv1951-63-01H18:13:00G.PDOC2 4095300-5189MJMwirtvevy for patient cvusRJMOGLFWNELPVS3413-32-06D41:48:10 [facility] 2023-11-30 12:19:00 [id number]/1aTCekS 8l8tMOZscPVB9ONb8Oezz26DGbLwU S02/Lj8qnc3ueLq0jGwijajrnz90817-47-00N92:19:00 [facility] HospitalCardiothoracic Surgery ProgREPORT#:[id number] REPORT STATUS: SignedREPORT INITIALIZATION DATE:11/30/23 TIME: 1218 PATIENT: CHARAN RESTREPO UNIT #: [id number]#: [id number] [address] [birth year] AGE: 53 SEX: M ATTEND: [...] Ox 96 11/30 929 B/P 122/67 11/30 0800 B/P Mean 89 11/30 899 Temp 37.2 11/30 0717 O2 Delivery Room air 11/29 1858 O2 Flow Rate 2 11/27 0800 24 [...] foleyExtremities: dry, moves allMusculoskeletal: full range of motionNeuro/DIRECTORY OPERATOR: alert, oriented X 3Skin: dry, intact, [...] 20 ML .STK-MED ONE IV (DC) Rocuronium [place] (ZEMURON) 0 .STK-MED ONE IV (DC) Aminocaproic [...] 11/30 11/30 11/29 11/29 1108 0816 0402 9 1731Chemistry Sodium (134 - 147 mEq/L) 137 [...] (74 - 137 SEC) 131 Laboratory Tests 11/302 1731 Hematology WBC (4.5 - 11.0 x10 [...] (Auto) (14.0 - 32.0 %) 22.3 25.0 E[place] % (Auto) (4.8 - 9.0 %) 8.0 8.0 Eos % (Auto) (0.3 - 3.7 %) 4.7 H 4.9 H Baso % (Auto) (0.0 - 2.0 %) 1.2 1.0 Neut # (Auto) (2.0 - 7.6 x10 3/uL) 4.79 4.83 Lymph # (Auto) (1.0 - 3.8 x10 3/uL) 1.69 2.00 [place] # (Auto) (0.1 - 0.8 x10 3/uL) [...] past, hypertension, diabetes, hyperlipidemia who presented to [facility] with complaints of chest pains. He previously underwent left heart catheterization about 1 month ago and was referred for bypass surgery in the outpatient setting however he did not get hisoutpatient appointment yet. The patient reports back to the hospital with complaints of chest pains radiating to the left arm. 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 [...] response to plavix 117, [facility] uploaded-will reviewContinue preop workupI will [...] for thrombus, after talking with the patient's manager infusion we decided to cancel surgery due to the increase risk of thromboembolic event. Procedure cancelled today and CTA heart ordered for further evaluation Consultants: cardiology, cardiovascular surgery at 1202 RPT #:[id number] OF REPORTPRProgress jper4846-01-57S02:19:00G.OMGE81587901-2644WXPfmyl able for patient juwjKDYWSKSIFZMBKR9214-10-21G21:03:11 [facility] 2023-11-30 09:53:00 [id number] 3XL5XnvyNZtnz08QdB3YVb0i9buqe QIeLRaTxDB8EGuZTGn++ViAy1RC6381-47-12T14:53:00 [facility] ([facility])Cardiology Progress NoteREPORT#:[id number] REPORT STATUS: SignedREPORT INITIALIZATION DATE:11/30/23 TIME: 952 PATIENT: CHARAN RESTREPO UNIT #: [id number]#: [id number] [address] [birth year] AGE: 53 SEX: M ATTEND: Papo Mayfield MDADM AUTHOR: Fiona Foster AGACNPREPT SERVICE DT/TIME: 11/30/2353* ALL edits or amendments must be made on the electronic/computer document * Fiona Foster 11/30/23 0953:SubjectivePatient reports:No: complaints. Objective GeneralVS/I O:24 hour I [...] / 0100 61 15 112/61 81 93 / 0000 61 16 121/62 85 96 11/29 2300 68 13 110/54 77 95 11/29 2200 62 14 114/58 80 94 11/29 2100 75 21 137/85 103 96 11/29 2031 36.1 11/29 2000 61 13 97/55 72 95 11/29 1858 92 Room air 11/29 1601 78 17 129/68 92 96 02/08 1600 36.6 0208 1501 60 13 98/52 71 94 02/08 1400 62 16 127/65 86 97 /08 1300 65 17 112/69 83 96 02/08 [...] 20 ML .STK-MED ONE IV (DC) Rocuronium [place] (ZEMURON) 0 .STK-MED ONE IV (DC) Aminocaproic [...] sounds, no distentionLower extremity: LE assessment: no edemaNeuro/DIRECTORY OPERATOR: alert, oriented X 3, no motor deficitsSkin: dry, intact, normal colorPsychiatry: normal affect, normal judgment/insight, normal mood ResultsFindings/Data:Laboratory Tests 11/30 11/30 11/29 11/29 0816 0782 4669 1731Chemistry Sodium (134 - 147 mEq/L) 137 [...] (Auto) (14.0 - 32.0 %) 22.3 25.0 [place] % (Auto) (4.8 - 9.0 %) 8.0 8.0 Eos % (Auto) (0.3 - 3.7 %) 4.7 H 4.9 H Baso % (Auto) (0.0 - 2.0 %) 1.2 1.0 Neut # (Auto) (2.0 - 7.6 x10 3/uL) 4.79 4.83 Lymph # (Auto) (1.0 - 3.8 x10 3/uL) 1.69 2.00 [place] # (Auto) (0.1 - 0.8 x10 3/uL) [...] NotesFree Text DxA P Notes:1. 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 and was referred for CABG [...] on anticoagulation at 1148 at 1614 RPT #:[id number] OF REPORTPRProgress biux2223-66-63O91:53:00G.YWIC74632925-3550KCSapmu able for patient dxvkLCRAIMWGTALNZA6759-94-51T95:44:35 [facility] 2023-11-30 09:49:00 [id number] tMdivBXF2hsh/r9VDR115OpC0t5g8 8gT5iRA3+EFwZOuvY/jhZGt8i+05575-37-61K86:49:00 [facility] HospitalHospitalist Progress NoteREPORT#:[id number] REPORT STATUS: SignedREPORT INITIALIZATION DATE:11/30/23 TIME: 948 PATIENT: CHARAN RESTREPO UNIT #: [id number]#: [id number] [address] [birth year] AGE: 53 SEX: M ATTEND: Papo Mayfield MDA AUTHOR: Kelley Young APRNREPT SERVICE DT/TIME: 11/30/23 [...] 11/30 0200 61 10 119/66 87 96 11/30 0100 61 15 112/61 81 93 02/ 0000 61 16 121/62 85 96 02/08 2300 68 13 110/54 77 95 / 2200 62 14 114/58 80 94 02/08 2100 75 21 137/85 103 96 02/08 2031 36.1 02/ 2000 61 13 97/55 72 95 02/08 1858 92 Room air 11/29 1601 78 17 129/68 92 96 02/08 1600 36.6 02/08 1501 60 13 98/52 71 94 02/08 1400 62 16 127/65 86 97 02/08 1300 65 17 112/69 83 96 02/08 1200 36.6 02/08 1200 62 18 122/73 92 99 02/08 1100 59 14 116/70 87 97 02/08 1000 60 14 122/69 90 97 24 hour I O ending at 0700: 11/30 0700 02 1900 Intake Total 240 Output Total Balance [...] 20 ML .STK-MED ONE IV (DC) Rocuronium [place] (ZEMURON) 0 .STK-MED ONE IV (DC) Aminocaproic [...] distentionExtremities: moves all, no calf tenderness, no edemaNeuro/DIRECTORY OPERATOR: alert, oriented X 3, CNII-XII intact, [...] (Auto) (14.0 - 32.0 %) 22.3 25.0 [place] % (Auto) (4.8 - 9.0 %) 8.0 8.0 Eos % (Auto) (0.3 - 3.7 %) 4.7 H 4.9 H Baso % (Auto) (0.0 - 2.0 %) 1.2 1.0 Neut # (Auto) (2.0 - 7.6 x10 3/uL) 4.79 4.83 Lymph # (Auto) (1.0 - 3.8 x10 3/uL) 1.69 2.00 [place] # (Auto) (0.1 - 0.8 x10 3/uL) [...] Pending surgery. at 1609 at 1910 RPT #:[id number] OF REPORTPRProgress [id number]:49:00G.[id number] able for patient tcmaBBGXXVZDXKXHPJ3979-77-95A86:13:57 [facility] 2023-11-29 14:52:00 [id number] b8RqlLcRiVQX61U/7Dd2rbUyX0vDe BS0vqhRaytYOb7qywBEjkI0WWje5867-07-71A60:52:00 [facility] ([facility])Cardiology Progress NoteREPORT#:[id number] REPORT STATUS: SignedREPORT INITIALIZATION DATE:11/29/23 TIME: 1451 PATIENT: CHARAN RESTREPO UNIT #: [id number]#: [id number] [address] [birth year] AGE: 53 SEX: M ATTEND: Papo Mayfield MDADM AUTHOR: Fiona Foster AGACNPREPT SERVICE DT/TIME: 11/29/231451* ALL edits or amendments must be made on the electronic/computer document * SubjectivePatient reports:No: complaints. Objective GeneralVS/I O:24 hour I O ending at 0700: 0208 0700 02 1900 Intake Total Output Total Balance Number Voids 6 Output, Urine Vital Signs: Date Time Temp Pulse Resp B/P B/P Pulse O2 O2 Flow FiO2 Mean Ox Delivery Rate 11/29 1200 36.6 02/08 0900 60 13 119/68 [...] 02/08 0000 71 16 122/60 84 95 11/28 2300 70 18 128/65 89 96 11/28 2200 63 16 121/65 87 94 11/28 2100 68 18 122/68 90 92 11/28 1999 36.7 11/28 1999 65 13 122/62 85 [...] sounds, no distentionLower extremity: LE assessment: no edemaNeuro/DIRECTORY OPERATOR: alert, oriented X 3, no motor [...] % (Auto) (14.0 - 32.0 %) 26.3 Erie % (Auto) (4.8 - 9.0 %) 9.5 H Eos % (Auto) (0.3 - 3.7 %) 5.3 H Baso % (Auto) (0.0 - 2.0 %) 0.8 Neut # (Auto) (2.0 - 7.6 x10 3/uL) 4.19 Lymph # (Auto) (1.0 - 3.8 x10 3/uL) 1.92 Erie # (Auto) (0.1 - 0.8 x10 3/uL) [...] Screen - COMP NASAL Laboratory Tests 11/29 044 Chemistry B-Natriuretic Peptide (0 - 100 PG/ML) 76.0 Radiology data:Recent Impressions:RADIOLOGY - XR CHEST 1 V 11/29 836 Report Impression - Status: SIGNED Entered: 11/29/2023 1449 IMPRESSION:No acute cardiopulmonary abnormality.Impression By: Donnell Barfield M.D. Results: labs reviewed, vital signs reviewed, rhythm personally rev'dTelemetry Interpretation:NSR Diagnosis, Assessment PlanPlan discussed with: patient, nurse Free Text DxA P NotesFree Text DxA P Notes:1. 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 CP improved with Morphine and NTG. Continue heparin drip. Add aspirin 81 mg daily. Continue atorvastatin and metoprolol 2. DMII: per Hospitalist 3. HTN: BP stable. Continue BB 4. 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 Continue beta-luís. GDMT as tolerated. Waiting for CABG. at 1453 at 2051 RPT #:[id number] OF REPORTPRProgress cqls9853-13-28H36:52:00G.HSUA17303620-4556EOBpqfw able for patient baniIWRJKIGIXCRPOB1690-52-85D05:56:50 [facility] 2023-11-29 12:56:00 [id number] G6e+yBHJTl39aS8iz3x9nOMRxMoxS 1kOrage9h4hBqvboSKP1kQ3z65E7378-54-92A55:56:[address] [place] [address] PATIENT NAME: CHARAN RESTREPO ADMIT DATE: 11/27/23ACCOUNT NO: [id number] ROOM NO: [facility] AGE: 53 REPORT TYPE: eECHOCARDIOGRAM REPORT SEX: M ADMITTING PHYSICIAN:Papo Mayfield MD ATTENDING PHYSICIAN:Papo Mayfield MD *[place], [place] [address]Phone: Nfp: [phone] Transthoracic Echocardiogram Patient: Royce Restrepotudy Date: 4BP: 120 / 73URN: [id number]: [id number]#: [id number]: 1970Age: 53Gender: MHeight: 69 in / 175.3 cmWeight: 183 lb / 83 kgBMI/BSA: 27 kg/m 2 / 2.03 m 2*Ordering Physician: * Rafi Mayfield MD *Interpreting Physician: * Merlene Rutherford MD*Gas Or Water Meter Installer: * Nikki Patel Indications: LV THROMBUS. Study [...] at 1256 PATIENT NAME: CHARAN RESTREPO :56:0 0G.[id number] for patient iudmOHQUVAPGPANVKY2372-17-29B42:27:41 [facility] 2023-11-29 10:46:00 [id number] pJgLBWr1F/hq68boUuQEo6yCf7z52 AKrTanFwqlHf60aiws/yJvD9oIx9001-94-23W91:46:00 [facility] HospitalHospitalist Progress NoteREPORT#:[id number] REPORT STATUS: SignedREPORT INITIALIZATION DATE:11/29/23 TIME: 1045 PATIENT: CHARAN RESTREPO UNIT #: [id number]#: [id number] [address] [birth year] AGE: 53 SEX: M ATTEND: Papo Mayfield AUTHOR: Kelley Young APRNREPT SERVICE DT/TIME: 11/29/23 [...] 02/ 2000 65 13 122/62 85 95 02/07 [...] I O ending at 0700: 11/29 0700 02/ 1900 Intake Total Output Total Balance Number [...] distentionExtremities: moves all, no calf tenderness, no edemaNeuro/DIRECTORY OPERATOR: alert, oriented X 3, CNII-XII intact, [...] MG/DL) 145 H 225 H Laboratory Tests 11/293 0443 1759 1205 Coagulation INR (0.8 - 1.2) 1.0 PTT ([place]) (25.0 - 39.5 Seconds) 75.5 H 58.4 [...] % (Auto) (14.0 - 32.0 %) 26.3 Erie % (Auto) (4.8 - 9.0 %) 9.5 H Eos % (Auto) (0.3 - 3.7 %) 5.3 H Baso % (Auto) (0.0 - 2.0 %) 0.8 Neut # (Auto) (2.0 - 7.6 x10 3/uL) 4.19 Lymph # (Auto) (1.0 - 3.8 x10 3/uL) 1.92 Erie # (Auto) (0.1 - 0.8 x10 3/uL) [...] - 0.1 x10 3/uL) 0.00 Laboratory Tests 11/286 Serology SARS-CoV-2 Ag (Rapid) (Negative) Negative Diagnosis, [...] in CCU. at 1715 at 1718 RPT #:[id number] OF REPORTPRProgress djlw3605-81-11G69:46:00G.KBGU20538023-0740XQHswmc able for patient bjpfKRKJMAAJEHOLZD1746-13-94K12:25:37 [facility] 2023-11-28 11:48:00 [id number] e2SDcXtV3kkDLoTuk1KYSlyDLQKxh y4XL7wsRdn5IOUaxyIhmnKB5MEz0050-55-50O40:48:00 [facility] ([facility])Cardiology Progress NoteREPORT#:[id number] REPORT STATUS: SignedREPORT INITIALIZATION DATE:11/28/23 TIME: 114 PATIENT: CHARAN RESTREPO UNIT #: [id number]#: [id number] [address] [birth year] AGE: 53 SEX: M ATTEND: Papo Mayfield MDADM AUTHOR: Fiona Foster AGACNPREPT SERVICE DT/TIME: 11/28/23 1148* ALL edits or amendments must be made on the electronic/computer document * Fiona Foster 11/28/23 1148:SubjectivePatient reports:Yes: chest pain. Objective GeneralVS/I O:24 hour I O ending at 0700: 07 0700 0206 1900 Intake Total 308.00 268.00 Output Total Balance 308.00 268.00 Intake, IV 308.00 28.00 Intake, Oral 240 Number Voids 4 Patient 83.2 kg Weight Weight Standing scale Measurement Method Vital Signs: Date Time Temp Pulse Resp B/P B/P Pulse O2 O2 Flow FiO2 Mean Ox Delivery Rate 02/ 0800 36.9 02/ 0400 36.2 02/ 0300 62 17 137/64 92 95 02/ 0201 61 15 101/55 74 98 02/07 0100 63 16 135/73 97 96 02/07 0000 36.7 02/ 0000 68 17 97/54 72 94 02/06 2301 68 13 122/64 86 97 02/06 2201 73 18 104/49 71 95 02/06 2100 68 17 133/67 94 94 02/ 2000 36.9 02/06 2000 73 12 115/66 84 94 02/06 1900 77 26 139/71 96 96 02/06 1600 37.0 02/ 1500 75 12 104/51 73 95 02/06 1439 81 25 136/57 81 97 02/06 1350 86 19 139/67 97 100 PATIENT [...] sounds, no distentionLower extremity: LE assessment: no edemaNeuro/DIRECTORY OPERATOR: alert, oriented X 3, no motor [...] % (Auto) (14.0 - 32.0 %) 20.7 Erie % (Auto) (4.8 - 9.0 %) 7.8 Eos % (Auto) (0.3 - 3.7 %) 3.2 Baso % (Auto) (0.0 - 2.0 %) 0.8 Neut # (Auto) (2.0 - 7.6 x10 3/uL) 5.59 Lymph # (Auto) (1.0 - 3.8 x10 3/uL) 1.73 Erie # (Auto) (0.1 - 0.8 x10 3/uL) [...] pH (5.0 - 7.0) 5.0 Ur Specific Morris (1.005 - 1.030) 1.023 Urine Protein (NEGATIVE) [...] NotesFree Text DxA P Notes:1. 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 at 1410 at 1337 RPT #:[id number] OF REPORTPRProgress euwu0059-36-55T12:48:00G.WEMH09573665-9685ZNVbgsa able for patient kiteMKEIZKVZSACFGQ6610-54-18V81:10:25 [facility] 2023-11-28 11:26:00 [id number] Zj96r2Fm0SbgzS+zBhBKht8baq1AS exyMTS6kwOnvNvQ3Nrim9jufu563005-20-10K07:26:00 [facility] HospitalHospitalist Progress NoteREPORT#:[id number] REPORT STATUS: SignedREPORT INITIALIZATION DATE:11/28/23 TIME: 1125 PATIENT: CHARAN RESTREPO UNIT #: [id number]#: [id number] [address] [birth year] AGE: 53 SEX: M ATTEND: [...] Mean Ox Delivery Rate 11/28 0800 36.9 02/ 0400 36.2 02/ 0300 62 17 137/64 92 95 02/ 0201 61 15 101/55 74 98 02/ 0100 63 16 135/73 97 96 02/ 0000 36.7 02/ 0000 68 17 97/54 72 94 02/ 2301 68 13 122/64 86 97 02/ 2201 73 18 104/49 71 95 02/ 2100 68 17 133/67 94 94 02/ 2000 36.9 02/ 2000 73 12 115/66 84 94 02/ 1900 77 26 139/71 96 96 02/ 1600 37.0 02/ 1500 75 12 104/51 73 95 02/06 1439 81 25 136/57 81 97 02/ 1350 86 19 139/67 97 100 24 hour I O ending at 0700: 11/28 0711/27 1900 Intake Total 308.00 268.00 Output Total [...] distentionExtremities: moves all, no calf tenderness, no edemaNeuro/DIRECTORY OPERATOR: alert, oriented X 3, CNII-XII intact, [...] % (Auto) (14.0 - 32.0 %) 20.7 Erie % (Auto) (4.8 - 9.0 %) 7.8 Eos % (Auto) (0.3 - 3.7 %) 3.2 Baso % (Auto) (0.0 - 2.0 %) 0.8 Neut # (Auto) (2.0 - 7.6 x10 3/uL) 5.59 Lymph # (Auto) (1.0 - 3.8 x10 3/uL) 1.73 Erie # (Auto) (0.1 - 0.8 x10 3/uL) [...] pH (5.0 - 7.0) 5.0 Ur Specific Morris (1.005 - 1.030) 1.023 Urine Protein (NEGATIVE) [...] vertebral artery flow bilaterally. Impression By: ArleneBC0 - Landen Roper M.D.ULTRASOUND - US EXTREM NON VASC [...] best of my knowledge. at 1322 RPT #:[id number] OF REPORTPRProgress lxim7364-37-03Q30:26:00G.VUKC36216486-2826SKSzzcx able for patient tibtVTJMAQEFEPFCLR9758-71-09Y41:22:25 [facility] 2023-11-28 09:11:00 L53366538440vZ+IbtcG fte9EA01EUEyi3CUr3L2cX4IMMGRB qgN90G4mNCseFMgwyYdx5Pv/W0j1739-82-58U49:11:00 [facility] HospitalCardiothoracic Surgery ProgREPORT#:[id number] REPORT STATUS: SignedREPORT INITIALIZATION DATE:11/28/23 TIME: 910 PATIENT: CHARAN RESTREPO UNIT #: [id number]#: [id number] [address] [birth year] AGE: 53 SEX: M ATTEND: [...] OLast Documented: Result Date Time Temp 36.9 02 0800 Pulse Ox 95 02/ 0300 B/P 137/64 11/28 0300 B/P Mean [...] foleyExtremities: dry, moves allMusculoskeletal: full range of motionNeuro/DIRECTORY OPERATOR: alert, oriented X 3Skin: dry, intact, [...] Q4H PRN PRN IV (DC) ResultsFindings/Data:Laboratory Tests 11/2815 0457 0448 2131 1616Chemistry Sodium (134 - [...] Laboratory Tests 11/28 11/28 11/27 11/27 11/27 4448 0448 2339 1817 1041Coagulation PTT (Ulises) (25.0 - 39.5 Seconds) 52.1 H 47.4 H 42.1 H Plt P2Y12 React Units (182 - 335 117 L 131 LPRU) 11/27 1041 Coagulation INR (0.8 - 1.2) 1.1 PTT (Ulises) (25.0 - 39.5 Seconds) 34.3 PT Patient/Control Mix (9.3 - 12.9 SECONDS) 12.7 Laboratory Tests 11/28 1046 Hematology WBC (4.5 - 11.0 x10 [...] (Auto) (14.0 - 32.0 %) 20.7 17.4 Erie % (Auto) (4.8 - 9.0 %) 7.8 7.1 Eos % (Auto) (0.3 - 3.7 %) 3.2 2.9 Baso % (Auto) (0.0 - 2.0 %) 0.8 0.6 Neut # (Auto) (2.0 - 7.6 x10 3/uL) 5.59 5.68 Lymph # (Auto) (1.0 - 3.8 x10 3/uL) 1.73 1.38 Erie # (Auto) (0.1 - 0.8 x10 3/uL) [...] pH (5.0 - 7.0) 5.0 Ur Specific Morris (1.005 - 1.030) 1.023 Urine Protein (NEGATIVE) [...] 12 months is optional based on 2017 [place] criteria. FOR INTERNAL CODING PURPOSES ONLYRESULT CODE: [...] past, hypertension, diabetes, hyperlipidemia who presented to [facility] with complaints of chest pains. He previously underwent left heart catheterization about 1 month ago and was referred for bypass surgery in the outpatient setting however he did not get hisoutpatient appointment yet. The patient reports back to the hospital with complaints of chest pains radiating to the left arm. 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 [...] Consultants: cardiology, cardiovascular surgery at 1025 RPT #:[id number] OF REPORTPRProgress cnix1122-86-57K67:11:00G.LVPB04961476-9280IGEwtsr able for patient mgcvHYAXWGHERXFYJK0230-45-48L11:08:44 [facility] 2023-11-27 14:04:00 [id number]/ o8Bpk13LFNXvsL43KVpmCwL6q2/hb xnuLJFGZbBGJAFtHpbImyqafFV54832-60-47M60:04:22800 6-0048 [place] [address] PATIENT NAME: CHARAN RESTREPO ADMIT DATE: 11/27/23ACCOUNT NO: [id number] ROOM NO: [facility] AGE: 53 REPORT TYPE: eECHOCARDIOGRAM REPORT SEX: M ADMITTING PHYSICIAN:Papo Mayfield MD ATTENDING PHYSICIAN:Papo Mayfield MD *[place] [id number]: Dkf: [phone] Echocardiogram Patient: Royce Restrepotudy Date: 11/27/2023P: 137 / 80URN: [id number]: [id number]#: [id number]: 1970Age: 53Gender: MHeight: 70 in / 177.8 cmWeight: 190 lb / 86.2 kgBMI/BSA: 27.3 kg/m 2 / 2.08 m 2*Ordering Physician: * Dia Baird *Interpreting Physician: * Merlene Rutherford MD*Gas Or Water Meter Installer: * Skyla Dodd Indications: CARDIAC SURGERY PRE-OP. Study data: Transthoracic echocardiogram. Procedure: A transthoracicechocardiogram was performed. Images were obtained using a Ulabox cardiacultrasound machine. Image quality was adequate. Intravenous [...] 3.5 Vol/bsa, S 17 ml/m 2 16 34 Vol/bsa, ES, 1-p A4C 11 ml/m [...] at 1404 PATIENT NAME: CHARAN RESTREPO :04:0 0G.[id number] for patient crroYZRAVTBGTXQDEP3061-82-00Z28:04:42 [facility] 2023-11-27 10:44:00 [id number] hX7PYSc1sGzp7UQP6K9bJWXQAjvn9 DsNHeDsVT1InBF74JRwpzyMj70R7089-73-19N29:44:00 [facility] HospitalAdult General ConsultationREPORT#:[id number] REPORT STATUS: SignedREPORT INITIALIZATION DATE:11/27/23 TIME: 104 PATIENT: CHARAN RESTREPO UNIT #: [id number]#: [id number] [address] [birth year] AGE: 53 SEX: M ATTEND: Papo Mayfield MDADM AUTHOR: Marilyn Mayfield MDREPT SERVICE DT/TIME: 11/27/23 1044* ALL edits or amendments must be made on the electronic/computer document * History of Present IllnessReason for consult:medical management Free Text HPI NotesFree Text HPI Notes: 53 years old male with PMH of CAD with 6-7 stents , HTN, DM, [facility] . he complaint of cp on and off for a month. pain is like stab pain . it is with sob and dizziness . it radiate the left arm . he hadcath last month . he was referred for CABG as out patient . he had cp yesterday and went back to the hospital in [facility]. 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 Review of SystemsConstitutional:Denies: fatigue, fever, generalized weakness, [...] soft, non-tender, no reboundExtremities: moves all, no edemaNeuro/DIRECTORY OPERATOR: alert, oriented X 3, CNII-XII grossly [...] % (Auto) (14.0 - 32.0 %) 17.4 Erie % (Auto) (4.8 - 9.0 %) 7.1 Eos % (Auto) (0.3 - 3.7 %) 2.9 Baso % (Auto) (0.0 - 2.0 %) 0.6 Neut # (Auto) (2.0 - 7.6 x10 3/uL) 5.68 Lymph # (Auto) (1.0 - 3.8 x10 3/uL) 1.38 Erie # (Auto) (0.1 - 0.8 x10 3/uL) [...] (0.0 - 0.1 x10 3/uL) 0.00 11/27 0211/27 0728 0602 0602 0602Chemistry Sodium (134 [...] % (Auto) (14.0 - 32.0 %) 16.0 Erie % (Auto) (4.8 - 9.0 %) 7.3 Eos % (Auto) (0.3 - 3.7 %) 3.3 Baso % (Auto) (0.0 - 2.0 %) 0.9 Neut # (Auto) (2.0 - 7.6 x10 3/uL) 6.36 Lymph # (Auto) (1.0 - 3.8 x10 3/uL) 1.42 Erie # (Auto) (0.1 - 0.8 x10 3/uL) [...] 12 months is optional based on 2017 [place] criteria. FOR INTERNAL CODING PURPOSES ONLYRESULT CODE: [...] best of my knowledge. at 1739 RPT #:[id number] OF REPORTYNCeeyfwfqsptd3419-06-05O65:44:00G.PDOC2 4893030-1351ZXModwammfj for patient feniLQPIPGWWBVXLOT1690-48-37W58:39:35 [facility] 2023-11-27 08:49:00 [id number]/ET vmLwgPPLOsffa1quMQiE9DkoOg8PT aMcr+Su8Q2cSoL5odb0m/jAE5cg3127-58-96L46:49:00 [facility] HospitalCardiology ConsultationREPORT#:[id number] REPORT STATUS: SignedREPORT INITIALIZATION DATE:11/27/23 TIME: 0849 PATIENT: CHARAN RESTREPO UNIT #: [id number]#: [id number] [address] [birth year] AGE: 53 SEX: M ATTEND: [...] past, hypertension, diabetes, hyperlipidemia who presented to [facility] with complaints of chest pains.He previously underwent [...] 11/27 0840 76 16 131/75 93.9 99 / 0647 98.1 73 135/79 98.1 97 / 0454 98.1 70 15 153/83 106.5 96 / 0027 97.7 65 16 137/80 99 100 [...] auscultation, no distressLower extremity: LE assessment: no edemaNeuro/DIRECTORY OPERATOR: alert, oriented X 3, no motor deficitsPsychiatry: normal affect, normal judgment/insight, normal mood ResultsFindings/Data:Laboratory Tests 11/27 11/27 11/27 11/27 0728 06 0602 06 Chemistry Sodium (134 - 147 mEq/L) 138 [...] Coagulation INR (0.8 - 1.2) 1.1 PTT ([place]) (25.0 - 39.5 Seconds) 32.7 PT Patient/Control [...] % (Auto) (14.0 - 32.0 %) 16.0 Erie % (Auto) (4.8 - 9.0 %) 7.3 Eos % (Auto) (0.3 - 3.7 %) 3.3 Baso % (Auto) (0.0 - 2.0 %) 0.9 Neut # (Auto) (2.0 - 7.6 x10 3/uL) 6.36 Lymph # (Auto) (1.0 - 3.8 x10 3/uL) 1.42 Erie # (Auto) (0.1 - 0.8 x10 3/uL) [...] 12 months is optional based on 2017 [place] criteria. FOR INTERNAL CODING PURPOSES ONLYRESULT CODE: [...] NotesFree Text DxA P Notes:1. 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 CP improved with Morphine and NTG, will transfer to CCU, if persist will do Nitro gtt. 2. DMII: per Hospitalist 3. HTN: resume home meds. 4. CHF: LVEF low, apix aneurysmal, no Thrombus with Contrasted ECHO at 2045 RPT #:[id number] OF REPORTDEMythmxhlofan9372-70-53G23:49:00G.PDOC2 3403737-3665GZKjicrviho for patient njyrVOAALZWVMHUONA0958-36-02L49:46:23 [facility] 2023-11-27 08:11:00 [id number] oNsiEvhEgrLeckKFtFXqt1ta1fKKN mywdoWU9GJmojvOiGta1iwT/W/74808-32-27C89:11:00 [facility] ([facility])History Physical - AdultREPORT#:[id number] REPORT STATUS: SignedREPORT INITIALIZATION DATE:11/27/23 TIME: 810 PATIENT: CHARAN RESTREPO UNIT #: [id number]#: [id number] [address] [birth year] AGE: 53 SEX: M ATTEND: [...] past, hypertension, diabetes, hyperlipidemia who presented to [facility] with complaints of chest pains. He previously underwent left heart catheterization about 1 month ago and was referred for bypass surgery in the outpatient setting however he did not get hisoutpatient appointment yet. The patient reports back to the hospital with complaints of chest pains radiating to the left arm. 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 The patient was seen and examined, reports chest pains 8 out of 10 HistoryPast medical history:Reports: Coronary artery disease, Diabetes mellitus, Hypertension. Past surgical history:Reports: (Left Tib, Fib). Family history:Reports: Heart disease. 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 He previously underwent left heart catheterization about 1 month ago and was referred for bypass surgery in the outpatient setting however he did not get hisoutpatient appointment yet. The patient reports back to the hospital with complaints of chest pains radiating to the left arm. 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 [...] STS risk score calculator, and complications. at 1625 at 1112 [facility] #:[id number] OF REPORTHPHistory and physical fpxfyluttep6256-80-00C60:11:00G.GMBG91587018-4832 AVAvailable for patient rsbhJSNIJFSSWQNMXX6698-96-51F21:30:48 [facility] 2023-11-27 06:38:00 [id number] QhAHzbcJJxZ1qHeF9X44lNxKDquru k9tBBFyHpi3SC47Rjy4PKx1AYAv3437-42-91E89:38:23812 0-[address] [address] PATIENT NAME: CHARAN RESTREPO ADMIT DATE: 11/27/23ACCOUNT NO: [id number] ROOM NO: [facility] AGE: 53 REPORT TYPE: eELECTROCARDIOGRAM REPORT SEX: M ADMITTING PHYSICIAN:Papo Mayfield MD ATTENDING PHYSICIAN:Papo Mayfield MD Order:[id number] Reason : PREOP Test Date/Time Stamp:SunNov 27 [...] 20-MAR-2023 08:44,Significant changes have occurredConfirmed by MD LEBRON GERARD ([id number]) on 01/09/2024 1:23:40 PM Referred By: Papo Mayfield Confirmed by:HIMANSHU LEBRON MD at 1323 PATIENT NAME: CHARAN RESTREPO .[id number] AVAvailable for patient dwrvFZATWYVTRKYSXB5197-07-66A85:24:10 [facility] 2023-03-20 15:29:00 [id number] npvraT5guEtebl7mugaKOJK5cHYXm KrEbGRMZtNKrGrfc+0qwXceRmPE4815-08-30X96:29:00 [facility] ([facility] CARECardiology Progress NoteREPORT#:[id number] REPORT STATUS: SignedDATE:03/20/23 TIME: 1529 PATIENT: CHARAN RESTREPO UNIT #: [id number]#: [id number] ROOM[facility]BED: [facility]-ADOB: [birth year] AGE: 52 SEX: M ATTEND: Montez [...] months for possible AICD at 1532 RPT #:[id number] OF REPORTPRProgress snju5174-61-75J14:29:00Z.YBPO47983274-2897RCJcsym able for patient hbtzPZURACGPRIZVTO8499-73-99Y18:32:26 [facility] 2023-03-20 08:44:00 [id number]/Ts2M gIplsWpeNZ7D8kWvQIhKte+ienKXM njYU/XLMeqwD8r9wv5lVTqkFPet5349-16-46N71:44:58517 0-0054 [place] [address] PATIENT NAME: CHARAN RESTREPO ADMIT DATE: 03/18/23ACCOUNT NO: [id number] ROOM NO: [facility] AGE: 52 REPORT TYPE: ELECTROCARDIOGRAM SEX: M ADMITTING PHYSICIAN:Montez Jernigan MD ATTENDING PHYSICIAN:Montez Jernigan MD Order:[id number] Reason : CAD/[place]/VT Test Date/Time Stamp:SunMar 20 2023 08:44:19Blood Pressure [...] SCHILLING at 1750 PATIENT NAME: CHARAN RESTREPO .[id number] AVAvailable for patient ozxyRGMFRJBCCQFGRE6551-16-62N15:51:36 [facility] 2023-03-20 08:41:00 [id number] MeFoId7qrpqOZE0z6MUWB4LhPfe66 D9mxPelOkMRUtH2jY4JK1NTVBs26045-36-77W68:41:00 [facility] ([facility] Hospitalist Discharge SummaryREPORT#:[id number] REPORT STATUS: SignedDATE:03/20/23 TIME: 0841 PATIENT: CHARAN RESTREPO UNIT #: [id number]#: [id number] [facility] AGE: 52 SEX: M ATTEND: [...] s/p 2 stents, HFpEF borderline [facility]. [facility] he had chest pain/dizziness, brief syncopal episode. He was brought to [facility] and was found to be in [facility] where he was given amiodarone and [...] of motionMusculoskeletal: normal inspection, painless range of motionNeuro/DIRECTORY OPERATOR: alert, oriented X 3, CNII-XII intact, [...] Instructions PCPPCP follow-up:PCP: Jesusita Osuna MD Follow-up labs,[facility], [place]:SCHEDULE SLEEP STUDYDischarge to: Home/Self CareAdditional Discharge Routines: PCP Follow-Up, Carroting Machine Operator Follow-UpDiet: Resume Home Diet/FeedsActivity: Resume Normal [...] He has asked for 1 week of [place], stating that he missed his pain management [...] as instructed. at 1016 at 1638 RPT #:[id number] OF REPORTDSDischarge iaecsyq6654-51-95V17:41:00Z.[id number] ailable for patient lxtrTIEXEGGEQNNEGG6748-90-12H17:17:22 [facility] 2023-03-19 14:01:00 [id number] fLRlXBAub5x7w3Rc0Ag/IALaZRIrn meUYv1W+6JD3ZTqu9C2buvbahUp8443-70-74M39:01:00THI S REPORT HAS BEEN APPENDED [phone] [place] [address] PATIENT NAME: CHARAN RESTREPO ADMIT DATE: 03/18/23ACCOUNT NO: [id number] ROOM NO: Z.503 AGE: 52 REPORT TYPE: ECHOCARDIOGRAM SEX: M ADMITTING PHYSICIAN:Montez Jernigan MD ATTENDING PHYSICIAN:Montez Jernigan MD *[facility]*[address] [place], [place] [address]Kkybo Transthoracic Echocardiogram Patient: Royce Restrepotudy Date: 03/19/2023 BP: 134 / 73 [id number] 1970 Age: 52 Height: 70 in / 177.8 cmAccession#: [id number] Gender: M Weight: 199.6 lb / 90.7 kgBMI/BSA: 28.7 kg/m 2 / 2.14 m 2 *Ordering Physician: * Sabino Schilling MD *Interpreting Physician: * Paco James MD*Gas Or Water Meter Installer: * Gabby Crockett Indications: CAD / [place]. Study data: Transthoracic echocardiogram. Procedure: Transthoracicechocardiography was performed. Images were obtained using a Ulabox cardiacultrasound machine. Image quality was adequate. M-mode, [...] SECTION 2 ADDENDUM 1: 03/20/23 0752 GCD.CPS *[facility]*[address] [place], [place] [address]Kteyp Transthoracic Echocardiogram (Report amended 4235-85-11I25:52:29) Patient: Royce Restrepotudy Date: 03/19/2023 BP: 134 / 73 Location: [facility]: [id number] : 1970 Age: 52 Height: 70 in / 177.8 cmAccession#: [id number] Gender: M Weight: 199.6 lb / 90.7 kgBMI/BSA: 28.7 kg/m 2 / 2.14 m 2 *Ordering Physician: * Sabino Schilling MD *Interpreting Physician: * Sabino Schilling MD*Gas Or Water Meter Installer: * Gabby Crockett Indications: CAD / [place]. Study data: Transthoracic echocardiogram. Procedure: Transthoracicechocardiography was performed. Images were obtained using a Ulabox cardiacultrasound machine. Image quality was adequate. M-mode, [...] Impressions: Severely reduced left ventricle systolic function jeremyesis of the apex.Recommendations: continue hf mgmt. Amended Sabino Schilling MD03/20/2023 07:52 PATIENT NAME: CHARAN RESTREPO :01:0 0Z.[id number] for patient jsmyHRYYSRYJEURRNU9442-12-42E86:02:20 [facility] 2023-03-19 12:44:00 [id number] aB951g6XmSUZbDJgPweA/1I+jl9DR UyOV4Joq7wClxGHzsCX/rDDwKa09957-66-23S62:44:00 [facility] HospitalCardiology Progress NoteREPORT#:[id number] REPORT STATUS: SignedDATE:03/19/23 TIME: 1244 PATIENT: CHARAN RESTREPO UNIT #: [id number]#: [id number] [facility] AGE: 52 SEX: M ATTEND: Montez [...] 03/19 1003 71 13 126/72 93 96 05/29 1000 69 12 98 05/29 0945 62 10 96 05/29 0930 64 14 96 05/29 0903 71 17 125/66 88 98 05/29 0900 71 15 98 05/29 0845 80 14 98 05/29 0830 78 [...] 112 96 05/29 0100 69 13 95 03/19 0045 69 12 96 03/19 0033 67 10 139/82 105 94 03/19 0030 68 10 95 03/19 0015 73 15 94 03/19 0003 71 15 138/84 106 93 03/19 0000 36.6 03/19 0000 74 17 94 03/18 2345 72 16 93 05 2333 72 16 134/70 95 92 03/18 [...] is separate fromany billable procedures. at 1248 [facility] [place] #:[id number] OF REPORTPRProgress tvnk4391-27-29M26:44:00Z.ABYK43797657-2383LXPhole able for patient wrhmOKRWBKJFWCTQNQ2552-13-86Z20:48:38 [facility] 2023-03-19 09:27:00 [id number] 9FuN3/c/DXhil9B22dPGLi3hi4HCq HlcWf8DY/jVFLdZT2jrwL2mUjsY8450-99-19Q06:27:00 [facility]Critical Care Progress NoteREPORT#:[id number] REPORT STATUS: SignedDATE:03/19/23 TIME: 926 PATIENT: CHARAN RESTREPO UNIT #: [id number]#: [id number] [facility] AGE: 52 SEX: M ATTEND: Montez Jernigan [facility] AUTHOR: Suzette Wang IP ATTORNEY * ALL edits or amendments must be [...] no hematoma Musculoskeletal normal inspection, no muscle spasmNeuro/DIRECTORY OPERATOR: alert, oriented X 3, no sensory deficitsPsychiatry: normal affect ResultsFindings/data:Laboratory Tests 03/19 03/19 03/18 03/18 03/18 0326 8395 1427 2103 2022 Chemistry Sodium (137 - 145 MMOL/L) [...] (Auto) (14 - 44 %) 8.0 L Erie % (Auto) (4 - 13 %) 5.3 Eos % (Auto) (0 - 6 %) 0.8 Baso % (Auto) (0 - 2 %) 0.5 Neut # (Auto) (2.0 - 7.6 K/mm3) 13.48 H 11.29 H Lymph # (Auto) (1.0 - 3.8 K/mm3) 1.28 2.18 Erie # (Auto) (0.1 - 0.8 K/mm3) 0.84 [...] pH (5.0 - 9.0) 5.0 Ur Specific Morris (1.003 - 1.030) 1.020 Urine Protein (NEGATIVE [...] arrythmias DiabetesUncontrolled. Takes metformin and jardiance. 9.3 B9XHbvkraf 200s, start lantus. Patietn educated on diabetes and need for insulin atthis pointWill consult nursing center tutor for DM education Tobacco AbuseSmokes 2 PPDCounseled against smoking Nicotine patch PPX LovenoxCardiac Diet f/u 35 mins Orders: Procedure Date/time Status MAGNESIUM 03/20 0400 Active BASIC METABOLIC PANEL 03/20 040 Active LIVER FUNCTION PANEL 03/19 0927 Active [...] if needed at 1004 at 1306 RPT #:[id number] OF REPORTPRProgress msvu6447-64-41S17:27:00Z.IARF79519713-6618LGZimvf able for patient hxqkMLYPIRROZPLZLU1661-68-15H29:04:53 [facility] 2023-03-19 07:39:00 [id number] cgsbe6oCOEFAtXNUCA750AKfHEZZF SQIjitbCbEkNvzssu/WShthW0F66331-84-27N68:39:00 [facility] ([facility]AREHospitalist Progress NoteREPORT#:[id number] REPORT STATUS: SignedDATE:03/19/23 TIME: 0739 PATIENT: CHARAN RESTREPO UNIT #: [id number]#: [id number] [facility] AGE: 52 SEX: M ATTEND: Montez Jernigan [facility] AUTHOR: Davi Davison MD, MPH R2 * ALL edits or amendments must be made on the electronic/computer document * Davi Davison 03/19/23 0739:SubjectiveChief complaint:CHEST PAINHPI:52 y/o M PMH DM2, HLD, CAD s/p 2 stents, HFpEF borderline, tobacco use, arthritis presented to [facility] for chest pain.NAEO. No arrhythmias [...] 03/19 0703 76 19 134/73 98 93 05/ 0700 95 33 93 05/ 0648 93 Room air 21 / 0645 66 15 92 05/ 0633 66 14 132/68 93 93 05/ 0630 66 14 92 05/29 0615 69 14 90 05/29 0603 79 124/72 93 93 05/29 0600 79 36 95 05/ 0545 74 16 91 05/29 0533 71 14 126/68 91 90 05/29 0530 73 15 90 05/29 0515 76 16 89 05/ 0503 81 17 118/66 86 90 05/29 [...] 10 94 05/29 0145 69 12 93 05/ 0133 78 14 131/80 100 96 05/ 0130 76 18 95 05/ 0115 69 12 96 05/ 0103 69 9 148/87 112 96 05/ 0100 69 13 95 05/ 0045 69 12 96 05/ 0033 67 10 139/82 105 94 05/ 0030 68 10 95 05 0015 73 15 94 05/ 0003 71 15 138/84 106 93 05/ 0000 97.9 05 0000 74 17 94 05/ 2345 72 16 93 05/ 2333 72 16 134/70 95 92 05/ 2330 72 16 92 05/ 2315 70 15 93 05/ 2303 74 17 127/75 95 92 05 2300 71 15 93 05 2245 75 16 94 05 2233 70 15 134/75 99 95 03/18 2230 70 14 96 03/18 2215 74 15 94 05 2203 70 14 130/79 99 94 05 2200 72 15 93 05 2145 69 15 92 05 2133 70 14 136/78 102 91 03/18 [...] of motionMusculoskeletal: normal inspection, painless range of motionNeuro/DIRECTORY OPERATOR: alert, oriented X 3, CNII-XII intact, [...] stents, HFpEF borderline presented to [facility] chest pain. STEMI (ST elevation myocardial infarction) : Hypertension : HLD : CAD : HF : Hx stent03/18 AM - chest pain/dizziness, found to be in vtach at [facility]. Placed on amiodarone drip, given sync cardioversion which resolved issue. Transferred here per Dr. Schilling, found to have V1/V2 ST elevation[facility] - 4x stent placed. EF 20%.03/19 - titrating off nitro drip, restarting PO rx per cardiologyPlan:Cardio management per Dr. Mock: Nitro drip - titrate off today Restart B luís? - per cardiology ASA 81, ticagrelor 90 BID Atorvastatin 40 Morphine 4 IV q6 PRN - per Dr. Alvarez Home rx (deferred): Entresto 24-26 BID Bisoprolol/HCTZ 6.25 TV3Fultelw A1c, is on jardiance unknown dose at homeSupposedly took metformin which "didn't work" in the wcmkX0e 9.3MDSS from LDSS today Tobacco hx : Dqzoplyk43+ pack-year smoking hxMild expiratory wheezing, possible COPD [...] nitroglycerine drip still which is being weaned. Equity Research Analyst and cardiology are on board and weappreciate their recommendations and care. at 0743 at 1246 RPT #:[id number] OF REPORTPRProgress hdqq2655-83-49X92:39:00Z.VGGQ83514454-9278BUTifhl able for patient ilwhZOEXLJRYPYCUXI9336-42-59T25:44:10 [facility] 05:44:00 [id number] oHV25u7iHBF6RnVwXXMIZ0pOPrJIm aSmmzN9oDDrSOyuAZ7gyHkcwjJ48894-35-68Z39:44:38586 9-[address] [address] PATIENT NAME: CHARAN RESTREPO ADMIT DATE: 03/18/23ACCOUNT NO: [id number] [facility]OM [facility]: [facility] AGE: 52 REPORT TYPE: ELECTROCARDIOGRAM SEX: M ADMITTING PHYSICIAN:Montez Jernigan MD ATTENDING PHYSICIAN:Montez Jernigan MD Order:[id number] Reason : CAD/AZ Test Date/Time Stamp:SunMar 19 2023 05:44:06Blood Pressure [...] SCHILLING at 1039 PATIENT NAME: CHARAN RESTREPO .[id number] AVAvailable for patient yguyUNLUPPXMGNDDQX4979-21-95L32:39:45 [facility] 2023-03-19 05:44:00 [id number] f5VgMfwdmDRUeaqXlraSBCx+dWLXb UK88nOHGdc8BQIrd8zvL7LarngS5912-47-69C63:44:75993 0-[address] [address] PATIENT NAME: CHARAN RESTREPO ADMIT DATE: 03/18/23ACCOUNT NO: [id number] ROOM NO: Z.503 AGE: 52 REPORT TYPE: ELECTROCARDIOGRAM SEX: M ADMITTING PHYSICIAN:Montez Jernigan MD ATTENDING PHYSICIAN:Montez Jernigan MD Order:[id number] Reason : CAD/AZ Test Date/Time Stamp:SunMar 19 2023 05:44:06Blood Pressure [...] SCHILLING at 1750 PATIENT NAME: CHARAN RESTREPO .[id number] AVAvailable for patient vpthAXODXHTPBRDMQB7861-21-46N71:50:56 [facility] 2023-03-18 17:45:00 [id number]+XBV/y Hy0oRtf9K8+2ZxH2CvNSonLPjj3zU 1Yxwf3tg5zUUKt66KH9BzukfPnw6323-52-60Y81:45:00 [facility] ([facility])Critical Care Consult NoteREPORT#:[id number] REPORT STATUS: SignedDATE:03/18/23 TIME: 1745 PATIENT: CHARAN RESTREPO UNIT #: [id number]#: [id number] ROOM/BED: O11-CDHY: 69 AGE: 52 SEX: M ATTEND: Jesusita Osuna [facility] AUTHOR: Suzette Wang IP ATTORNEY * ALL edits or amendments must be [...] EKG showed STEMI. Transferred emergently to our director of labor relations via life flight. Dr James was able [...] encouraged to have debrillator placed by his manager infusion. Unable to recall names of home medications. 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 Dr James placed 4 stents to LADAspirin, Statin, Brilinta. Director Of Rotc would like to start beta luís tomorrowNitroglycerin [...] the patient. at 1808 at 1834 RPT #:[id number] OF REPORTNLOosovpfjkqsa2611-37-51S02:45:00Z.PDOC2 [id number] for patient jdwgINATMQXJXWGWII6631-76-60U02:08:44 [facility] 2023-03-18 17:40:00 [id number] 7KYOqSUQNXTIe8XemrqP1huix1Bk5 eh0yEyxSLiInn1D1BVwCj8gbiad5300-31-61G41:40:25913 8-[address] [address] PATIENT NAME: CHARAN RESTREPO ADMIT DATE: 03/18/23ACCOUNT NO: [id number] ROOM NO: [facility] AGE: 52 REPORT TYPE: ELECTROCARDIOGRAM SEX: M ADMITTING PHYSICIAN:Jesusita Osuna MD ATTENDING PHYSICIAN:Jesusita Osuna MD Order:[id number] Reason : [place] Test Date/Time Stamp:SunMar 18 [...] By: Self Referred Confirmed by:SABINO SCHILLING at 2001 PATIENT NAME: CHARAN RESTREPO .[id number] AVAvailable for patient ntafVUVGDSNOFRUYJZ5431-62-26W93:03:30 [facility] 2023-03-18 17:40:00 [id number] KnHLy+p7vFaiuHVlGu2vnQ379MlBn hWAj3hMVo/zJMAM8MCjDJlIFpcR6053-09-90M38:40:93848 0-[address] [address] PATIENT NAME: CHARAN RESTREPO ADMIT DATE: 03/18/23ACCOUNT NO: [id number] ROOM NO: Han AGE: 52 REPORT TYPE: ELECTROCARDIOGRAM SEX: M ADMITTING PHYSICIAN:Montez Jernigan MD ATTENDING PHYSICIAN:Montez Jernigan MD Order:[id number] Reason : [place] Test Date/Time Stamp:SunMar 18 [...] SCHILLING at 1750 PATIENT NAME: CHARAN RESTREPO .[id number] AVAvailable for patient cnyaCMERJUCFLFUNQF9887-73-39G01:50:36 [facility] 2023-03-18 17:25:00 [id number] mrTUqOV4U2nhqpN/+hVH0exbYmPVo 7SYGhPJFwfRrj4CWFV3Sv4bX1fU1489-35-65I35:25:00 [facility] ([facility])Hospitalist History PhysicalREPORT#:[id number] REPORT STATUS: SignedDATE:03/18/23 TIME: 1725 PATIENT: CHARAN RESTREPO UNIT #: [id number]#: [id number] ROOM/BED: [facility]-ADOB: [birth year] AGE: 52 SEX: M ATTEND: Montez Jernigan MDADM AUTHOR: Davi Davison MD, MPH R2 * ALL edits or amendments must be made on the electronic/computer document * Davi Davison 03/18/23 6615:History of Present Illness HPIChief complaint:CHEST PAINPCP:PCP: Jesusita Osuna MD HPI:52 y/o M PMH DM2, HLD, CAD s/p 2 stents, HFpEF borderline, tobacco use, arthritis presented to [facility] for chest pain.Started feeling lightheaded, [...] w/ STEMI. He was emergently taken for C w/ Dr. James.LHC notable for multiple obstructions/near [...] of motionMusculoskeletal: normal inspection, painless range of motionNeuro/DIRECTORY OPERATOR: alert, oriented X 3, CNII-XII intact, [...] stents, HFpEF borderline presented to [facility] chest pain. STEMI (ST elevation myocardial infarction) : Hypertension : HLD : CAD : HF : Hx stent03/18 AM - chest pain/dizziness, found to be in vtach at [facility]. Placed on amiodarone drip, given sync cardioversion which resolved issue. Transferred here per Dr. Schilling, found to have V1/V2 ST [facility] - 4x stent placed. EF 20%.Per Dr. James - continue nitro drip. Defer restart home BP rx Given tirofiban in [facility], ASA, ticagrelor Avoid heparin products at this timePlan:Cardio management per Dr. Mock: Nitro drip ASA 81, ticagrelor 90 BID Atorvastatin 40 Morphine 2 IV q6 - consider d/c after 03/20 or Home rx (deferred): Entresto 24-26 BID Bisoprolol/HCTZ 02/24.25 NG6Eiawalp A1c, is on jardiance unknown dose at tevsV7u pending, LDSS Tobacco hx : Nuflyxbg97+ pack-year smoking hxMild expiratory wheezing, possible COPD [...] knowledge. Jesusita Osuna 03/18/23 1851:Attestations Teaching Physician Ccrluwrdcft4sk visit w/ resident:I was present with the resident during the history and exam. I discussed the case with the resident and . . . agree with the findings and plan as documented in the resident's note. agree with the findings and plan as documented in the resident's note EXCEPT: at 5070 at 1506 RPT #:[id number] OF REPORTHPHistory and physical cvghlziumrf8068-74-00H48:25:00Z.QAPG33461552-4341 AVAvailable for patient urhaUFMEDMMPPSRWDK3262-10-42J08:20:05 [facility] 2023-03-18 17:24:00 [id number]/zY8 gJemYDr8YLpFPQcRvL86Jsfwsb8I2 XWd0tqgljgnAbAYeDKbsVWSgVhC6810-79-99N37:24:66714 8-0023 [place] [address] PATIENT NAME: CHARAN RESTREPO ADMIT DATE: 03/18/23ACCOUNT NO: [id number] ROOM NO: .[facility] AGE: 52 REPORT TYPE: CARDIAC CATHETERIZATION REPORT [...] of the LAD, who [place] [facility] [place]. He then had [place] had to be shocked and had ST elevations in V1, V2, V3. He was life-flighted to [facility] where we emergently brought into the director of labor relations. SEDATION USED: Moderate sedation. PNEUMATIC TESTER: Paco James MD PROCEDURAL DETAILS: The patient was brought to the director of labor relations in an emergent fashion. He was draped [...] I then selected a 2.75 x 15 Emery Hopkinton stent and positioned in the distal LAD overlapping with the old stents and deployed it to PATIENT NAME: CHARAN RESTREPO nominal pressure. I then pulled the stent delivery balloon back and expanded it. I then reinflated the balloon to high pressure. I then removed that stent delivery system and brought up to 3.5 x 22 mm Hopkinton stent and positioned in the proximal LAD [...] positioned a 2.75 x 12 mm Valerio Hopkinton stent in the mid LAD and deployed [...] then positioned a2.25 x 15 mm Valerio Hopkinton stent distally and deployed it to slightly [...] 12 mm and 2.25 x 15 mm Hopkinton stent, there was 0% stenosis in ARELY 3 flow and no evidence of wire perforation or guide dissection. ESTIMATED BLOOD LOSS: There was 20 mL of blood loss. PATIENT NAME: CHARAN RESTREPO COMPLICATIONS: No complications. RECOMMENDATIONS: Recommend 4-hour of bed rest. Continue aspirin and chvhaupxcv63 mg b.i.d. Wean nitro drip tomorrow. Would hold off on diuretics until tomorrow unless the patient starts shortness of breath, in which case I would give IV Lasix and hold off on beta luís until tomorrow. Dictated By: Paco James MD Date Dictated: 03/18/2023 17:24:48Date Transcribed: 03/18/2023 22:18:00SYED/Yadira #: [id number] ID: [id number] by Paco James MD On 03/20/2023 04:12:22 PM at 0412 PATIENT NAME: BERT RESTREPOYCE rujp6425-76-56C63:18:00Z.PUJ15078508-2845YLNzgqtt ble for patient kcusDOSZIPIHDUDPWP8146-35-24R86:13:05 [facility] 2023-03-18 15:02:00 [id number] AfAD7roFQX8doQaa84Up0PI3ffLf6 KYVG65B88czwlHc2S8xOIrdqHEs8405-10-71Q62:02:00 [facility] HospitalCardiology ConsultationREPORT#:[id number] REPORT STATUS: SignedDATE:03/18/23 TIME: 1502 PATIENT: CHARAN RESTREPO UNIT #: [id number]#: [id number] [facility] AGE: 52 SEX: M ATTEND: Jesusita Osuna [facility] AUTHOR: Paco James MD [...] separate fromany billable procedures. at 1810 RPT #:[id number] OF REPORTIPQryoqorfjfen2783-61-41F15:02:00Z.PDOC2 [id number] for patient clpeMLHPUUBGNSDBFK6127-94-51F10:03:47 [facility]
[2024-03-13 08:57] LABS: Absolute Basophils 0.2 K/uL (0-0.5); Absolute Eosinophils 0.2 K/uL (0-0.5); Absolute Lymphocytes (CBC) 1.3 K/uL (0.7-4.9); Absolute Monocytes 0.7 K/uL (0.1-1.3); Basophils % 1.3 % (0-1.3); Hematocrit 45.7 % (39.6-49.0); Hemoglobin 15.5 g/dL (13.6-17.9); Lymphocytes % 11.4 % (15.3-44.8); MCH 29.8 pg (27.0-35.0); MCV 87.6 fL (80-100); MPV 7.7 fL (7.6-11.3); Monocytes % 6.1 % (3.3-12.3); Neutrophils % 79.2 % (41.7-73.7); Nucleated Red Blood Cells % 0.3 % (0-0); Platelets 238 thou/uL (152-406); RBC Red Blood Cell Count 5.21 M/uL (4.33-5.43); Red Cell Distribution Width 14.5 % (12.1-15.2)
[2024-03-13 09:05] LABS: PT Prothrombin Time 12.4 SECONDS (9.5-12.5); Protime INR 1.13
[2024-03-13] MEDS ORDERED: ONDANSETRON 4 MG/2 ML VIAL ONE (09:15)
[2024-03-13] MEDS ORDERED: MORPHINE 4 MG/ML SYR ONE (09:15)
[2024-03-13 09:17] LABS: ALT/SGPT 19 U/L (16-61); Albumin 3.5 g/dL (3.4-5.0); Alkaline Phosphatase 71 U/L (45-117); BUN Blood Urea Nitrogen 17 mg/dL (7-18); Bicarbonate 26 mEq/L (21-32); Bilirubin Total 0.6 mg/dL (0.2-1.0); Globulin 3.5 g/dL (2.3-3.5); Glomerular Filtration Rate 84 ml/min (=/>90); Glucose Level 147 mg/dL (74-106); Magnesium 2.2 mg/dL (1.6-2.4); NT PRO-BNP 549 pg/mL (<125); Sodium Level 135 mEq/L (136-145); Troponin High Sensitivity 9.1 pg/mL (<58.9)
[2024-03-13 09:18] LABS: AST/SGOT < 10 U/L (15-37); Bilirubin Direct < 0.2 mg/dL (0-0.2); Bilirubin Indirect, Calculated 0.4 mg/dL (0.2-0.8)
--- NOTE | 2024-03-13 10:07 | RAD REPORT ---
EXAM DESCRIPTION: RAD - Chest Single View - 03/13/2024 9:59 am CLINICAL HISTORY: CHEST PAIN Chest pain. COMPARISON: Chest Single View dated 02/25/2024; Chest Single View dated 02/17/2024; Chest Single View d ated 12/27/2023; Chest Single View dated 11/26/2023 FINDINGS: Portable technique limits examination quality. The lungs are grossly clear. The heart is upper limit of normal in size. No displaced fractures. IMPRESSION: No acute intrathoracic process suspected.
--- NOTE | 2024-03-13 10:27 | ER ---
Nurse's Notes [facility] Name: Charan Restrepo Jr Age: 53 yrs Sex: Male : 1970 Arrival Date: 03/13/2024 Time: 08:10 Bed 13 Private MD: Diagnosis: Chest pain, unspecified Presentation: 03/13 08:25 Acuity: MARTY 2 aa5 08:25 Chief complaint: Pt states "I always have chest pains but today it was worse and my aa5 external defibrillator alarmed twice today, it didn't shock me but just the alarm went off twice". 08:25 Coronavirus screen: At this time, the client does not indicate any symptoms associated aa5 with coronavirus-19. Ebola Screen: Patient denies travel to an Ebola-affected area in the 21 days before illness onset. Initial Sepsis Screen: Does the patient meet any 2 criteria? No. Patient's initial sepsis screen is negative. Does the patient have a suspected source of infection? No. Patient's initial sepsis screen is negative. Risk Assessment: Do you want to hurt yourself or someone else? Patient reports no desire to harm self or others. Onset of symptoms was March 13, 2024. 08:25 Method Of Arrival: Wheelchair aa5 Historical: - Allergies: 08:26 No Known Allergies; aa5 - PMHx: 08:26 blood clot to heart; diabetes mellitus; external defibrillator vest; Hyperlipidemia; aa5 Hypertension; Myocardial infarction; - PSHx: 08:26 6 heart stents; bone graft; Cholecystectomy; knee; left leg; Right femur; aa5 - Immunization history:: Adult Immunizations unknown. - Infectious Disease History:: Denies. - Social history:: Smoking status: Patient reports the use of cigarette tobacco products, denies chronic smoking, but will smoke occasionally. - Family history:: not pertinent. Assessment: 08:25 General: Appears uncomfortable, Behavior is calm, cooperative. Pain: Complains of pain aa5 in mid-sternal area Pain does not radiate. Pain currently is 8 out of 10 on a pain scale. Quality of pain is described as sharp, Pain began 1 day ago. Is intermittent. Neuro: Level of Consciousness is awake, alert, obeys commands, Oriented to person, place, time, situation. Cardiovascular: Heart tones S1 S2 present external defibrillator vest noted . Edema is absent. Rhythm is regular. Respiratory: Reports shortness of breath at rest Airway is patent Respiratory effort is even, unlabored, Respiratory pattern is regular, symmetrical, Breath sounds are diminished bilaterally. GI: Abdomen is round non-distended, Bowel sounds present X 4 quads. Abd is soft and non tender X 4 quads. : No signs and/or symptoms were reported regarding the genitourinary system. EENT: No signs and/or symptoms were reported regarding the EENT system. Derm: Skin is pink, warm \\T\\ dry. Musculoskeletal: Range of motion: intact in all extremities. 09:15 Reassessment: Patient is alert, oriented x 3, equal unlabored respirations, skin aa5 warm/dry/pink. Vital Signs: 08:25 BP 131 / 76; Pulse 79; Resp 18 S; Temp 97.6(TE); Pulse Ox 97% on R/A; aa5 09:45 BP 129 / 77; Pulse 60; Resp 18 S; Pulse Ox 97% on R/A; aa5 10:23 BP 129 / 80; Pulse 58; Resp 18; Pulse Ox 99% ; cp4 10:41 Weight 88.45 kg; Height 5 ft. 10 in. ; cp4 11:30 BP 122 / 58; Pulse 56; Resp 18; Pulse Ox 97% ; cp4 12:30 BP 105 / 60; Pulse 55; Resp 18; Pulse Ox 96% ; cp4 13:30 BP 130 / 81; Pulse 62; Resp 18; Pulse Ox 97% ; cp4 10:41 Body Mass Index 27.98 (88.45 kg, 177.8 cm) cp4 ED Course: 08:10 Patient arrived in ED. rg4 08:12 Bharath Perez MD is Attending Physician. rt 08:25 Arm band placed on. aa5 08:25 Patient has correct armband on for positive identification. Placed in gown. Bed in low aa5 position. Call light in reach. Side rails up X2. Client placed on continuous cardiac and pulse oximetry monitoring. NIBP monitoring applied. piece dyer on. Pulse ox on. NIBP on. 08:30 EKG completed in triage. Results shown to . aa5 08:30 O2 via RA. aa5 08:49 Initial lab(s) drawn, by me, sent to lab. Inserted saline lock: 20 gauge in left aa5 forearm, using aseptic technique. Blood collected. 08:53 Triage completed. aa5 08:53 Bharath Perez MD is Attending Physician. rt 09:57 XRAY Chest (1 view) In Process Unspecified. EDMS 10:03 Kimberly Galeana is Primary Nurse. cp4 10:15 Report given to AYLIN Harris. aa5 10:26 Darek Ramirez MD is Hospitalizing Provider. rt 13:55 IV discontinued, intact, bleeding controlled, Pressure dressing applied, 20 G to L FA aa5 dc'd, pt reported pain to site after NS flush. 14:00 Repeat troponin drawn and sent to lab. Inserted saline lock: 22 gauge in right forearm, aa5 using aseptic technique. Administered Medications: 09:15 Drug: Ondansetron IVP 4 mg IVP once; over 2 minutes Route: IVP; Site: left forearm; aa5 09:25 Follow up: Response: No adverse reaction aa5 09:17 Drug: morphine IVP or IV 4 mg IVP once over 4 mins Route: IVP; Infused Over: 4 mins; aa5 Site: left forearm; 09:25 Follow up: Response: No adverse reaction aa5 10:52 Drug: Enoxaparin Sub-Q 1 mg/kg Sub-Q once Route: Sub-Q; Site: abdomen; cp4 Medication: 09:27 VIS not applicable for this client. aa5 Outcome: 10:27 Decision to Hospitalize by Provider. rt 14:42 Patient left the ED. aa5 Signatures: Dispatcher [employer] EDAZ Estrellita Sanz RN RN aa5 Martha Falk rg4 Bharath Perez MD MD rt Kimberly Galeana cp4 Corrections: (The following items were deleted from the chart) 08:26 08:26 Allergies: Aspirin; aa5 aa5 08:53 08:26 Arm band placed on aa5 aa5 09:25 09:14 morphine IVP or IV 4 mg IVP in left forearm over 4 mins aa5 aa5
--- NOTE | 2024-03-13 10:28 | EDPHYS ---
Physician Documentation [facility] Name: Charan Restrepo Jr Age: 53 yrs Sex: Male : 1970 Arrival Date: 03/13/2024 Time: 08:10 Bed 13 Private MD: ED Physician Bharath Perez HPI: 03/13 09:27 This 53 yrs old Male presents to ER via Wheelchair with complaints of Chest Pain. rt 09:27 Patient is currently wearing a LifeVest. The patient reportedly has a clot in his rt heart, has to have stenting versus bypass surgery once the clot is gone, currently on Coumadin for that. The patient states that he always has chest pain, but, today's chest pain is worse, now radiates to the left side of the jaw. Patient states that he received an alarm from the LifeVest. Denies other acute complaints at this time, symptoms are moderate in severity, no other aggravating or alleviating factors.. Historical: - Allergies: 08: No Known Allergies; aa5 - PMHx: 08: blood clot to heart; diabetes mellitus; external defibrillator vest; Hyperlipidemia; aa5 Hypertension; Myocardial infarction; - PSHx: 08:26 6 heart stents; bone graft; Cholecystectomy; knee; left leg; Right femur; aa5 - Immunization history:: Adult Immunizations unknown. - Infectious Disease History:: Denies. - Social history:: Smoking status: Patient reports the use of cigarette tobacco products, denies chronic smoking, but will smoke occasionally. - Family history:: not pertinent. ROS: 09:27 Constitutional: Negative for fever, chills, and weight loss, Respiratory: Negative for rt shortness of breath, cough, wheezing, and pleuritic chest pain, Abdomen/GI: Negative for abdominal pain, nausea, vomiting, diarrhea, and constipation, MS/Extremity: Negative for injury and deformity, Skin: Negative for injury, rash, and discoloration, Neuro: Negative for headache, weakness, numbness, tingling, and seizure, : Cardiovascular: Positive for chest pain, Negative for edema, Exam: : Constitutional: This is a well developed, well nourished patient who is awake, alert, rt and in no acute distress. Head/Face: Normocephalic, atraumatic. Chest/axilla: Normal chest wall appearance and motion. Nontender with no deformity. No lesions are appreciated. Cardiovascular: Regular rate and rhythm with a normal S1 and S2. No gallops, murmurs, or rubs. Normal PMI, no JVD. No pulse deficits. Respiratory: Lungs have equal breath sounds bilaterally, clear to auscultation and percussion. No rales, rhonchi or wheezes noted. No increased work of breathing, no retractions or nasal flaring. Abdomen/GI: Soft, non-tender, with normal bowel sounds. No distension or tympany. No guarding or rebound. No evidence of tenderness throughout. Skin: Warm, dry with normal turgor. Normal color with no rashes, no lesions, and no evidence of cellulitis. MS/ Extremity: Pulses equal, no cyanosis. Neurovascular intact. Full, normal range of motion. Neuro: Awake and alert, GCS 15, oriented to person, place, time, and situation. Cranial nerves II-XII grossly intact. Motor strength 5/5 in all extremities. Sensory grossly intact. Cerebellar exam normal. Normal gait. 09:27 ECG was reviewed by the Attending Physician. Vital Signs: 08:25 BP 131 / 76; Pulse 79; Resp 18 S; Temp 97.6(TE); Pulse Ox 97% on R/A; aa5 09:45 BP 129 / 77; Pulse 60; Resp 18 S; Pulse Ox 97% on R/A; aa5 10:23 BP 129 / 80; Pulse 58; Resp 18; Pulse Ox 99% ; cp4 10:41 Weight 88.45 kg; Height 5 ft. 10 in. ; cp4 11:30 BP 122 / 58; Pulse 56; Resp 18; Pulse Ox 97% ; cp4 12:30 BP 105 / 60; Pulse 55; Resp 18; Pulse Ox 96% ; cp4 13:30 BP 130 / 81; Pulse 62; Resp 18; Pulse Ox 97% ; cp4 10:41 Body Mass Index 27.98 (88.45 kg, 177.8 cm) cp4 MDM: 08:56 Patient medically screened. rt 10:27 Differential diagnosis: abnormal EKG, coronary artery disease chest wall pain. HEART rt Score: History: Highly Suspicious (2), ECG: Non specific repolarization disturbance / LBTB / PM (1), Age: > 45 and < 65 years (1), Risk Factors: > or = 3 Risk factors for atherosclerotic disease (2), Troponin: < or = 1 x Normal Limit (0), Total Score = 6. Data reviewed: vital signs, nurses notes, lab test result(s), EKG, radiologic studies. Consideration of Admission/Observation Patient was admitted/placed on observation. 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 Care significantly affected by the following chronic conditions: Coronary artery disease. Counseling: I had a detailed discussion with the patient and/or guardian regarding the historical points, exam findings, and any diagnostic results supporting the discharge/admit diagnosis, lab results, radiology results, the need for further work-up and treatment in the hospital. Response to treatment: the patient's symptoms have markedly improved after treatment. 03/13 08:46 Order name: Basic Metabolic Panel; Complete Time: 09:20 rt 03/13 08:46 Order name: CBC with Diff; Complete Time: 09:20 rt 03/13 08:46 Order name: LFT's; Complete Time: 09:20 rt 03/13 08:46 Order name: Magnesium; Complete Time: 09:20 rt 03/13 08:46 Order name: NT PRO-BNP; Complete Time: 09:20 rt 03/13 08:46 Order name: PT-INR; Complete Time: 09:20 rt 03/13 08:46 Order name: Troponin HS; Complete Time: 09:20 rt 03/13 14:28 Order name: Troponin High Sensitivity; Complete Time: 14:29 EDMS 03/13 08:46 Order name: XRAY Chest (1 view); Complete Time: 10:09 rt 03/13 10:41 Order name: Echo with Doppler EDMS 03/13 08:46 Order name: Cardiac monitoring; Complete Time: 08:48 rt 03/13 08:46 Order name: EKG - Nurse/Tech; Complete Time: 08:48 rt 03/13 08:46 Order name: IV Saline Lock; Complete Time: 08:48 rt 03/13 08:46 Order name: Labs collected and sent; Complete Time: 08:48 rt 03/13 08:46 Order name: O2 Per Protocol; Complete Time: 08:48 rt 03/13 08:46 Order name: O2 Sat Monitoring; Complete Time: 08:48 rt EC:27 Rate is 71 beats/min. Rhythm is regular, Normal Sinus Rhythm with No ectopy. Left axis rt deviation noted. [place] interval is normal. QRS interval is normal. QT interval is normal. No Q waves. Clinical impression: NSR w/ Non-specific ST/T Changes. Administered Medications: 09:15 Drug: Ondansetron IVP 4 mg IVP once; over 2 minutes Route: IVP; Site: left forearm; aa5 09:25 Follow up: Response: No adverse reaction aa5 09:17 Drug: morphine IVP or IV 4 mg IVP once over 4 mins Route: IVP; Infused Over: 4 mins; aa5 Site: left forearm; 09:25 Follow up: Response: No adverse reaction aa5 10:52 Drug: Enoxaparin Sub-Q 1 mg/kg Sub-Q once Route: Sub-Q; Site: abdomen; cp4 Disposition Summary: 03/13/24 10:27 Hospitalization Ordered Notes: Hospitalization Status: Observation rt Provider: Darek Ramirez rt Location: Telemetry/MedSurg (observation) rt Condition: Stable rt Problem: new rt Symptoms: have improved rt Bed/Room Type: Standard rt Room Assignment: 224(03/13/24 13:47) bc6 Diagnosis - Chest pain, unspecified rt Forms: - Medication Reconciliation Form rt - SBAR form rt - Leadership Thank You Letter rt Signatures: Dispatcher [employer] Estrellita Berger RN RN aa5 Phani Hernandez, FOURDRINIER MACHINE OPERATOR-C FOURDRINIER MACHINE OPERATOR-Cla1 Bharath Perez MD MD rt Edna La bc6 Kimberly Galeana cp4 Corrections: (The following items were deleted from the chart) 08:26 08:26 Allergies: Aspirin; aa5 aa5 08:47 08:46 BASIC METABOLIC PANEL+C.LAB.BRZ ordered. EDMS EDMS 08:47 08:46 CBC+H.LAB.BRZ ordered. EDMS EDMS 08:47 08:46 HEPATIC FUNCTION+C.LAB.BRZ ordered. EDMS EDMS 08:47 08:46 MAGNESIUM+C.LAB.BRZ ordered. EDMS EDMS 08:47 08:46 PROBNP+C.LAB.BRZ ordered. EDMS EDMS 08:47 08:46 PROTIME (+INR)+COAG.LAB.BRZ ordered. EDMS EDMS 08: 08:47 Troponin High Sensitivity+C.LAB.BRZ ordered. EDMS EDMS 08:47 08:47 Chest Single View+RAD.RAD.BRZ ordered. EDMS EDMS :47 10:27 rt bc6
[2024-03-13] MEDS ORDERED: ENOXAPARIN 100 MG/ML SYR SQ ONE (10:47)
[2024-03-13] MEDS: INSULIN REGULAR (HUMAN) 100 UNIT/ML SQ SCH ×2 (12:45→15:56)
[2024-03-13] MEDS: WARFARIN SODIUM 5 MG TAB PO SCH ×2 (14:00→16:21)
--- NOTE | 2024-03-13 15:00 | EKG ---
Test Date: 2024-03-13 Test Time: 08:30:54 Filbert Grower: SUZETTE MEASUREMENT RESULTS: Intervals: Rate: 71 DC: 166 QRSD: 98 QT: 406 QTc: 441 [place]: P: 68 DC: 166 QRS: 242 T: 80 INTERPRETIVE STATEMENTS: Normal sinus rhythm Inferior infarct, age undetermined Anterolateral infarct, age undetermined Abnormal ECG Compared to ECG 02/25/2024 08:01:44 Left anterior fascicular block no longer present Myocardial infarct finding still present Electronically Signed On 03-13-24 14:59:20 CDT by Pepe Rodriguez
[2024-03-13] MEDS: MORPHINE 4 MG/ML SYR IV PRN (15:04)
[2024-03-13] MEDS: ENOXAPARIN 100 MG/ML SYR SQ SCH ×2 (15:13→21:54)
[2024-03-13 15:19] VITALS: BMI 27.2
--- NOTE | 2024-03-13 15:38 | P.HP ---
Certification for Inpatient Patient admitted to: Observation With expected LOS: <2 Midnights Patient will require the following post-hospital care: None Practitioner: I am a practitioner with admitting privileges, knowledge of patient current condition, hospital course, and medical plan of care. Services: Services provided to patient in accordance with Admission requirements found in Title 42 Section 412.3 of the Code of Federal Regulations Patient History Date of Service: 03/13/24 Reason for admission: Chest pain, subtherapeutic INR History of Present Illness: 53-year-old male with history of CAD, LV thrombus on warfarin, hypertension, diabetes mellitus type [id number], hyperlipidemia, chronic systolic congestive heart failure presents emergency department with chief complaint of chest pain, extremity defibrillator alarming. Patient was evaluated in the emergency department his labs were significant for white blood cell count of 11.3 initial has an troponin of 9.1, second troponin 11.1 INR 1.13 chest x-ray negative acute findings EKG without STEMI criteria. ED provider wishes to admit patient under observation for chest pain, subtherapeutic INR with LV thrombus Allergies No Known Drug Allergies Allergy (Verified 06/21/17 20:11) Unknown Home Medications: Sacubitril/Valsartan [Entresto 24 mg-26 mg Tablet] 1 each PO BID 11/05/23 Amiodarone HCl [Cordarone*] 200 mg PO BID #60 tab 02/22/24 Clopidogrel Bisulfate [Plavix*] 75 mg PO DAILY #30 tab 02/22/24 Hydrocodone 10/APAP 325 [[place]igan 10/325*] 1 tab PO TID PRN #12 tab 02/22/24 Isosorbide Mononitrate [Isosorbide Mononitrate ER] 30 mg PO DAILY #30 tab 02/22/24 Spironolactone [Aldactone*] 50 mg PO DAILY #30 tab 02/22/24 Warfarin Sodium [Coumadin*] 5 mg PO DAILY 5 PM #30 tab 02/22/24 - Past Medical/Surgical History Diabetic: Yes -: mycardial infarction x3 -: HTN -: kidney stones -: CAD-multivessel in need of CABG -: HLD -: Chronic systolic congestive heart failure -: Diabetes mellitus type [id number] -: cholecystectomy -: left leg fixator -: right knee sx -: left elbow sx -: cardiac cath 3 w/ stent x2 over 5 years ago; pt w/ 4 stents in April -: bone graft -: right femur sx Psychosocial/ Personal History: Lives at home with family - Family History Father -: Heart disease, Cancer - Social History Smoking Status: Current every day smoker Alcohol use: No CD- Drugs: No Caffeine use: Yes Place of Residence: Home Review of Systems 10-point ROS is otherwise unremarkable Cardiovascular: Chest Pain Physical Examination - Vital Signs Temperature: 97.6 F Blood Pressure: 130/81 Pulse: 62 Respirations: 18 - Physical Exam General: Alert, In no apparent distress, Oriented x3 HEENT: Atraumatic, PERRLA, EOMI Neck: Supple, 2+ carotid pulse no bruit, No LAD Respiratory: Clear to auscultation bilaterally, Normal air movement Cardiovascular: Regular rate/rhythm, Normal S1 S2 Gastrointestinal: Normal bowel sounds Musculoskeletal: No tenderness Integumentary: No rashes Neurological: Normal speech, Normal strength at 5/5 x4 extr, Normal tone - Studies Laboratory Data (last 24 hrs) 03/13/24 03/13/24 03/13/24 08:49 08:49 08:49 WBC 11.30 H Hgb 15.5 Hct 45.7 Plt Count 238 PT 12.4 INR 1.13 Sodium 135 L Potassium 4.0 BUN 17 Creatinine 1.05 Glucose 147 H Magnesium 2.2 Total Bilirubin 0.6 AST < 10 L ALT 19 Alkaline Phosphatase 71 Assessment and Plan - Plan Assessment: Chest pain-known history of CAD Chronic systolic congestive heart failure with external defibrillator in place Left ventricular thrombus on anticoagulation with warfarin-subtherapeutic INR Diabetes mellitus type [id number] Hypertension Hyperlipidemia Plan: Chest pain-known history of CAD Chronic systolic congestive heart failure with external defibrillator in place Left ventricular thrombus on anticoagulation with warfarin-subtherapeutic INR Trend troponin, monitor on telemetry. Patient with known significant multivessel CAD in need of CABG Was found to have LV thrombus just prior to CABG which she is currently being treated for INR subtherapeutic at 1.13, given 10 mg of warfarin today Continue 5 mg warfarin daily after this which is what patient was reportedly taking at home Continue Lovenox bridge Cardiology consultappreciate further input Most recent echocardiogram in October showed EF of 35 to 40% Home medications continued Diabetes mellitus type 9xqu-dkyvcjh-cbpseyqjg ACHS Accu-Chek, sliding scale insulin Hypertension Hyperlipidemia Home medications continued DVT PPX: Continue warfarin, therapeutic Lovenox bridge Code status: Full Discharge Plan: Home Plan to discharge in: 24 Hours - Advance Directives Does patient have a Living Will: No Does patient have a Durable POA for Healthcare: No - Code Status/Comfort Care Code Status Assessed: Yes (Full code) Critical Care: No Time Spent Managing Pts Care (In Minutes): 35
[2024-03-13] MEDS: HYDROCODONE/APAP 10/325 TAB PO PRN (16:21)
--- NOTE | 2024-03-13 16:23 | CON ---
Date of Consultation: 03/13/2024 Reason For Consultation: Chest pain. History Of Present Illness: 53-year-old male with history of coronary artery disease, known to have POWDER COATER of the LAD, failed PCI, but he has some collaterals. He also was sent to have a HERNANDEZ to LAD, how ever, he was found to have LV thrombus, so the surgery was canceled and he was started on anticoagula tion. He has been having chest pain. He said it is sharp in nature and it is a burning type, consta nt, and he is requesting pain medication and the pain does not radiate and it does not matter of his activities, could be at rest or with activities. Past Medical History: LV thrombus, coronary artery disease, diabetes, hypertension, dyslipidemia. Medications: Refer to reconciliation sheet for detailed list. Allergies: NO KNOWN DRUG ALLERGIES. Family History: No premature coronary artery disease or cancer. Social History: He is an active smoker. Does not drink or use any drugs. Review of Systems: All systems reviewed and they were negative except as mentioned in the HPI. Physical Examination: Vital Signs: Reviewed. Head and Neck: Pupils are equal, reactive to light. Intact eye movements. No JVD. No cervical lym phadenopathy. Neck is supple. Thyroid is not enlarged. Lungs: Clear to auscultation bilaterally. No rhonchi, wheezing, or crackles. No accessory muscle u se. Heart: Regular rate and rhythm. No extra sounds. Abdomen: Soft, nontender. Bowel sounds positive. No organomegaly. No masses or hernia. No rigidi ty or rebound. Extremities: No clubbing or cyanosis. Intact pulses. Skin: No rash. No nodule. Neurologic: Alert, awake, oriented x3. No acute focal deficits appreciated. Investigations: NT-proBNP is 549. Troponin is x2 negative. BUN 17, creatinine 1.05, hemoglobin 15. 5. Assessment And Recommendations: 1.Coronary artery disease with known POWDER COATER of the LAD with collaterals and he is having chest pain. H e failed the PCI and he needs a bypass and await on resolution of the LV thrombus. To proceed with t he bypass surgery. So to monitor him overnight and serial cardiac enzymes and pain management. 2.LV thrombus. The echo was repeated. There was severe hypokinesis of the apex, but I could not se e whether there is a thrombus or not due to limitation of the windows. Recommend a contrast study wh ich can be done as an outpatient. 3.Smoking. He was counseled. 4.Hypertension. Blood pressure is controlled. SR/MODL Voice ID: [id number] Report ID: [id number]
[2024-03-13] MEDS ORDERED: WARFARIN SODIUM 5 MG TAB PO SCH (17:00)
[2024-03-13] MEDS: AMIODARONE HCL 200 MG TAB PO SCH (21:54)
[2024-03-13] MEDS: SACUBITRIL/VALSARTAN 24/26 MG TAB PO SCH (21:54)
[2024-03-14 03:01] LABS: Absolute Basophils 0.1 K/uL (0-0.5); Absolute Eosinophils 0.2 K/uL (0-0.5); Absolute Lymphocytes (CBC) 1.5 K/uL (0.7-4.9); Absolute Monocytes 0.7 K/uL (0.1-1.3); Basophils % 1.5 % (0-1.3); Hematocrit 47.5 % (39.6-49.0); Hemoglobin 16.2 g/dL (13.6-17.9); Lymphocytes % 20.5 % (15.3-44.8); MCH 29.9 pg (27.0-35.0); MCHC 34.1 g/dL (32.0-36.0); MCV 87.6 fL (80-100); MPV 8.5 fL (7.6-11.3); Monocytes % 8.9 % (3.3-12.3); Neutrophils % 66.1 % (41.7-73.7); Nucleated Red Blood Cells % 0.2 % (0-0); Platelets 245 thou/uL (152-406); RBC Red Blood Cell Count 5.42 M/uL (4.33-5.43); Red Cell Distribution Width 14.8 % (12.1-15.2)
[2024-03-14 03:34] LABS: PT Prothrombin Time 12.7 SECONDS (9.5-12.5); Protime INR 1.16
[2024-03-14 03:53] LABS: Anion Gap 6.2 mEq/L (5.0-15.0); Potassium 4.2 mEq/L (3.5-5.1); Thyroid Stimulating Hormone 3.11 uIU/mL (0.358-3.740)
[2024-03-14] MEDS: SPIRONOLACTONE 25 MG TABLET PO SCH (08:36)
[2024-03-14] MEDS: CLOPIDOGREL 75 MG TABLET PO SCH (08:37)
[2024-03-14] MEDS: ISOSORBIDE MONO SR 30 MG TAB PO SCH (08:37)
--- NOTE | 2024-03-14 08:37 | ECHO ---
HEIGHT: 5 ft 10 in WEIGHT: 190 lb 0 oz DATE OF STUDY: 03/13/[address]: Phani Hernandez NP 2-DIMENSIONAL: YES M.MODE: YES DOPPLER: YES COLOR FLOW: YES TDS: PORTABLE: YES DEFINITY: BUBBLE STUDY: DIAGNOSIS: CHEST PAIN, DEFIBRILLATOR ALARM, VENTRICULAR THROMBUS CARDIAC HISTORY: CATHERIZATION: YES SURGERY: NO PROSTHETIC VALVE: NO PACEMAKER: NO MEASUREMENTS (cm) DIASTOLIC (NORMALS) SYSTOLIC (NORMALS) IVSd 1.1 (0.6-1.2) LA Diam 2.8 (1.9-4.0) LVEF 45-50% LVIDd 6.5 (3.5-5.7) LVIDs 4.9 (2.0-3.5) %FS 25% LVPWd 1.2 (0.6-1.2) Ao Diam 3.2 (2.0-3.7) 2 DIMENSIONAL ASSESSMENT: RIGHT ATRIUM: NORMAL LEFT ATRIUM: NORMAL RIGHT VENTRICLE: NORMAL LEFT VENTRICLE: DILATED TRICUSPID VALVE: NORMAL MITRAL VALVE: MILD MITRAL REGURGITATION PULMONIC VALVE: NOT WELL SEEN AORTIC VALVE: NORMAL PERICARDIAL EFFUSION: NONE AORTIC ROOT: NORMAL LEFT VENTRICULAR WALL MOTION: APICAL SEVERE HYPOKINESIS DOPPLER/COLOR FLOW: SEE BELOW COMMENTS: 1. MILDLY DEPRESSED LEFT VENTRICULAR EJECTION FRACTION 45-50% 2. APICAL HYPOKINESIS 3. DIASTOLIC DYSFUNCTION 4. MILD MITRAL REGURGITATION 5. UNABLE TO SEE APEX WELL TO EVALUATE FOR LEFT VENTRICULAR THROMBUS TECHNOLOGIST: SAMSON ACOSTA
[2024-03-14] MEDS: WARFARIN SODIUM 5 MG TAB PO SCH (16:07)
[2024-03-14] MEDS ORDERED: WARFARIN SODIUM 5 MG TAB PO SCH (17:00)
--- NOTE | 2024-03-14 20:05 | P.PN ---
Date of Service: 03/14/24 Subjective Awake and complaining of chest pain Denies nitroglycerin helping to resolve chest pain Goal is INR to therapeutic level prior to discharge ROS 10 point ROS as noted above, otherwise negative Physical Exam General: AAOx3, NAD HEENT: Atraumatic, PERRLA, EOMI Neck: Supple, 2+ carotid pulse no bruit, No LAD Respiratory: Clear to auscultation bilaterally, symmetrical chest wall movement, on room air Cardiovascular: RRR, Normal S1 S2 present Gastrointestinal: Normal bowel sounds Musculoskeletal: No tenderness Integumentary: No rashes Neurological: Normal speech, Normal strength at 5/5 x4 extr, Normal tone Vitals Reviewed Problem list Chest pain-known history of CAD Chronic systolic congestive heart failure with external defibrillator in place Left ventricular thrombus on anticoagulation with warfarin-subtherapeutic INR Diabetes mellitus type [id number] Hypertension Hyperlipidemia Plan: Chest pain-known history of CAD Chronic systolic congestive heart failure with external defibrillator in place Left ventricular thrombus on anticoagulation with warfarin-subtherapeutic INR Troponin trend flat, monitor on telemetry. Patient with known significant multivessel CAD in need of CABG Was found to have LV thrombus just prior to CABG which he is currently being treated for INR subtherapeutic at 1.16, after 10 mg of warfarin 03/13 Continue 5 mg warfarin with Lovenox bridge Cardiology consultrecommend contrast study for further evaluation of thrombus Most recent echocardiogram in October showed EF of 35 to 40% Home medications continued Diabetes mellitus type [id number] ACHS Accu-Chek, sliding scale insulin Hypertension Hyperlipidemia Home medications continued DVT PPX: Continue warfarin, therapeutic Lovenox bridge Code status: Full Discharge Plan: Home Plan to discharge in: Likely discharge once INR is therapeutic
[2024-03-15 04:24] LABS: Absolute Basophils 0.1 K/uL (0-0.5); Absolute Eosinophils 0.2 K/uL (0-0.5); Absolute Lymphocytes (CBC) 1.7 K/uL (0.7-4.9); Absolute Monocytes 0.6 K/uL (0.1-1.3); Absolute Neutrophil 6.5 K/uL (1.8-8.0); Basophils % 0.8 % (0-1.3); Eosinophils % 2.6 % (0-4.4); Hematocrit 49.8 % (39.6-49.0); Lymphocytes % 18.6 % (15.3-44.8); MCH 29.7 pg (27.0-35.0); MCHC 34.1 g/dL (32.0-36.0); MCV 87.1 fL (80-100); MPV 8.1 fL (7.6-11.3); Monocytes % 6.2 % (3.3-12.3); Neutrophils % 71.8 % (41.7-73.7); Nucleated RBC Absolute Count 0.1 (0-0); Nucleated Red Blood Cells % 0.6 % (0-0); Platelets 254 thou/uL (152-406); RBC Red Blood Cell Count 5.72 M/uL (4.33-5.43); Red Cell Distribution Width 14.7 % (12.1-15.2)
[2024-03-15 04:54] LABS: Anion Gap 7.5 mEq/L (5.0-15.0); Potassium 4.5 mEq/L (3.5-5.1)
[2024-03-15 05:01] LABS: PT Prothrombin Time 16.6 SECONDS (9.5-12.5); Protime INR 1.53
--- NOTE | 2024-03-15 11:49 | P.PN ---
Subjective Date of Service: 03/15/24 Chief Complaint: Chest pain, subtherapeutic INR Subjective: No new changes, No C/O voiced, Tolerating diet, Ambulating, Improving Review of Systems 10-point ROS is otherwise unremarkable Physical Examination - Vital Signs Temperature: 97.3 F Blood Pressure: 143/71 Pulse: 75 Respirations: 16 Pulse Ox (%): 96 - Physical Exam General: Alert, In no apparent distress HEENT: Atraumatic, PERRLA, EOMI Neck: Supple, JVD not distended Respiratory: Clear to auscultation bilaterally, Normal air movement Cardiovascular: Regular rate/rhythm, Normal S1 S2 Gastrointestinal: Normal bowel sounds, No tenderness Musculoskeletal: No tenderness Integumentary: No rashes Neurological: Normal speech, Normal tone, Normal affect Lymphatics: No axilla or inguinal lymphadenopathy - Studies Medications List Reviewed: Yes Assessment And Plan - Current Problems (Diagnosis) (1) LV (left ventricular) mural thrombus Current Visit: No Status: Acute Plan: increase warfarin dose to 5 mg (,,Sunday and Sunday) and 7 mg (Sunday, and Sunday). Continue Lovenox bridge until INR is more than 2. 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 Qualifiers: Coronary Disease-Associated Artery/Lesion type: [place] artery [place] vs. transplanted heart: [place] heart Associated angina: with unstable angina Qualified Code(s): I25.110 - Atherosclerotic heart disease of [place] coronary artery with unstable angina pectoris (3) Hypertension Onset Date: 02/16/15 Current Visit: No Status: Chronic Plan: continue current medications. Qualifiers: Hypertension type: essential hypertension
[2024-03-15] MEDS: WARFARIN SODIUM 1 MG TAB PO SCH (16:16)
[2024-03-15] MEDS: WARFARIN SODIUM 6 MG TAB PO SCH (16:17)
--- NOTE | 2024-03-15 16:17 | P.PN ---
Date of Service: 03/15/24 Subjective Walking outside to smoke Agitated in bed but speaks calmly Stopped morphine and will continue with home dose pain medicine ROS 10 point ROS as noted above, otherwise negative Physical Exam General: Alert and oriented x 3, NAD HEENT: Atraumatic, PERRLA, EOMI Neck: Supple, 2+ carotid pulse no bruit, No LAD Respiratory: Clear to auscultation bilaterally, symmetrical chest wall movement, on room air Cardiovascular: RRR, Normal S1 S2 present, no murmur noted Gastrointestinal: Normal bowel sounds Musculoskeletal: No tenderness, 2+ peripheral pulses Integumentary: No rashes Neurological: Normal speech, Normal strength at 5/5 x4 extr, Normal tone Vitals Reviewed Problem list Chest pain-known history of CAD Chronic systolic congestive heart failure with external defibrillator in place Left ventricular thrombus on anticoagulation with warfarin-subtherapeutic INR Diabetes mellitus type [id number]-mjkrftukt Hypertension Hyperlipidemia Plan: Chest pain-known history of CAD Chronic systolic congestive heart failure with external defibrillator in place Left ventricular thrombus on anticoagulation with warfarin-subtherapeutic INR Troponin trend flat, monitor on telemetry. Patient with known significant multivessel CAD in need of CABG Was found to have LV thrombus just prior to CABG which he is currently being treated for INR subtherapeutic at 1.53, after 5 mg of warfarin 03/14 Continue 7 mg warfarin with Lovenox bridge Cardiology consultrecommend contrast study for further evaluation of thrombus Most recent echocardiogram in October showed EF of 35 to 40% Home medications continued Diabetes mellitus type [id number] ACHS Accu-Chek, sliding scale insulin Serum glucose 124 today Hypertension Hyperlipidemia Home medications continued DVT PPX: Continue warfarin, therapeutic Lovenox bridge Code status: Full Discharge Plan: Home Plan to discharge in: Likely discharge once INR is therapeutic
[2024-03-15] MEDS: HYDROMORPHONE HCL 1 MG/ML INJ IV ONE (21:33)
[2024-03-15 21:58] VITALS: O2SAT 97
[2024-03-16 03:40] LABS: Absolute Basophils 0.1 K/uL (0-0.5); Absolute Eosinophils 0.3 K/uL (0-0.5); Absolute Lymphocytes (CBC) 1.8 K/uL (0.7-4.9); Absolute Monocytes 0.7 K/uL (0.1-1.3); Absolute Neutrophil 4.1 K/uL (1.8-8.0); Basophils % 1.4 % (0-1.3); Eosinophils % 3.7 % (0-4.4); Hematocrit 45.9 % (39.6-49.0); Hemoglobin 15.5 g/dL (13.6-17.9); MCH 29.5 pg (27.0-35.0); MCHC 33.7 g/dL (32.0-36.0); MCV 87.4 fL (80-100); MPV 7.9 fL (7.6-11.3); Monocytes % 9.9 % (3.3-12.3); Platelets 214 thou/uL (152-406); RBC Red Blood Cell Count 5.25 M/uL (4.33-5.43); Red Cell Distribution Width 14.4 % (12.1-15.2)
[2024-03-16 03:48] LABS: PT Prothrombin Time 21.5 SECONDS (9.5-12.5); Protime INR 1.99
[2024-03-16 03:55] LABS: Anion Gap 5.9 mEq/L (5.0-15.0); Potassium 3.9 mEq/L (3.5-5.1)
[2024-03-16] MEDS: NITROGLYCERIN 0.4 MG/TAB SL PRN (06:19)
--- NOTE | 2024-03-16 06:35 | RAD REPORT ---
EXAM DESCRIPTION: RAD - Chest Single View - 03/16/2024 6:29 am CLINICAL HISTORY: chest pain COMPARISON: 02/17/2024, 03/13/2024 FINDINGS: Lines: None. Lungs: Nonspecific coarsening of the pulmonary interstitium which is similar to 02/17/2024. . Pleural: No significant pleural effusions or pneumothorax. Cardiac: The heart size is within normal limits. Mediastinum: Within normal limits. Bones: No acute fractures. Other: None IMPRESSION: No acute cardiopulmonary disease. No significant change from prior.
[2024-03-16 08:35] VITALS: BP 132/77; TEMP 97.6
--- NOTE | 2024-03-16 12:08 | P.PN ---
Subjective Date of Service: 03/16/24 Chief Complaint: Chest pain, subtherapeutic INR Subjective: No new changes, No C/O voiced, Tolerating diet, Ambulating, Improving Review of Systems 10-point ROS is otherwise unremarkable Physical Examination - Vital Signs Temperature: 97.6 F Blood Pressure: 132/77 Pulse: 74 Respirations: 16 Pulse Ox (%): 96 - Physical Exam General: Alert, In no apparent distress HEENT: Atraumatic, PERRLA, EOMI Neck: Supple, JVD not distended Respiratory: Clear to auscultation bilaterally, Normal air movement Cardiovascular: Regular rate/rhythm, Normal S1 S2 Gastrointestinal: Normal bowel sounds, No tenderness Musculoskeletal: No tenderness Integumentary: No rashes Neurological: Normal speech, Normal tone, Normal affect Lymphatics: No axilla or inguinal lymphadenopathy - Studies Medications List Reviewed: Yes Assessment And Plan - Current Problems (Diagnosis) (1) LV (left ventricular) mural thrombus Current Visit: No Status: Acute Plan: warfarin dose to 5 mg (,,Sunday and Sunday) and 7 mg (Sunday, and Sunday). INR 1.99 today, good to discharge. Patient will need to follow up in office to get Repeated Echo with contrast. (2) CAD (coronary artery disease) Onset Date: 06/22/17 Current Visit: No Status: Chronic Plan: known [employer], need CABG, deferred due to LV thrombus, continue medical rachel gement for now. Qualifiers: Coronary Disease-Associated Artery/Lesion type: [place] artery [place] vs. transplanted heart: [place] heart Associated angina: with unstable angina Qualified Code(s): I25.110 - Atherosclerotic heart disease of [place] coronary artery with unstable angina pectoris (3) Hypertension Onset Date: 02/16/15 Current Visit: No Status: Chronic Plan: continue current medications. Qualifiers: Hypertension type: essential hypertension
--- NOTE | 2024-03-16 13:09 | P.DS ---
Admission Date: 03/14/24 Discharge Date: 03/16/24 Disposition: ROUTINE DISCHARGE Discharge Condition: GOOD Reason for Admission: Chest pain, subtherapeutic INR Brief History of Present Illness: Diagnosis Chest pain-known history of CAD Chronic systolic congestive heart failure with external defibrillator in place Left ventricular thrombus on anticoagulation with warfarin-subtherapeutic INR Diabetes mellitus type [id number] Hypertension Hyperlipidemia HPI 03/13/2024 Charan Restrepo is a 53-year-old male with history of CAD, LV thrombus on warfarin, hypertension, diabetes mellitus type [id number], hyperlipidemia, chronic systolic congestive heart failure presents emergency department with chief complaint of chest pain, extremity defibrillator alarming. Patient was evaluated in the emergency department his labs were significant for white blood cell count of 11.3 initial has an troponin of 9.1, second troponin 11.1 INR 1.13 chest x-ray negative acute findings EKG without STEMI criteria. ED provider wishes to admit patient under observation for chest pain, subtherapeutic INR with LV thrombus Hospital Course: Charan Restrepo is a pleasant 53-year-old male with a past medical history significant for CAD, LV thrombus on warfarin, hypertension, diabetes mellitus type [id number], hyperlipidemia, chronic systolic congestive heart failure who was admitted to the [facility] on 03/13/2024 for chest pain, subtherapeutic INR with LV thrombus. Charan presented to the ED with chief complaint of chest pain. He has known CAD and LV thrombus, he was advised to take Coumadin until the LV thrombus has dissolved. At that time he would be a candidate for coronary artery bypass graft. His INR was up therapeutic, Coumadin dosage was changed with a Lovenox bridge added. Charan frequently had chest pain which was relieved by morphine. Today his INR is 1.99 and he is ready for discharge with follow-up visit to Dr. Rodriguez's office to continue management of his INR level and Coumadin dosage. Education was provided for Coumadin diet, alternating Coumadin dosage every other day, and follow-up with his cardiac surgeon make plans for his CABG. He is hemodynamically stable, ambulating independently, tolerating p.o. diet, in no acute distress, and ready for discharge. On 03/16/2024, Charan was seen on morning rounds and deemed medically stable for discharge. Charan was discharged with instructions to schedule follow-up appointments with cardiology and PCP. Charan was provided prescriptions for nitroglycerin and Coumadin. The patient was given the opportunity to ask questions and reported no further questions. Furthermore, all questions were answered to the best of my ability. A copy of this discharge summary will be sent to the above providers to facilitate continuity of care. Physical Exam General: AAO x 3, NAD HEENT: Atraumatic, PERRLA, EOMI Neck: Supple, 2+ carotid pulse no bruit, No LAD Respiratory: Clear to auscultation bilaterally, symmetrical chest wall movement, on room air Cardiovascular: Regular rate and rhythm, Normal S1 S2 present, no murmur noted Gastrointestinal: Normal bowel sounds Musculoskeletal: No tenderness, 2+ peripheral pulses Integumentary: No rashes Neurological: Normal speech, Normal strength at 5/5 x4 extr, Normal tone Vital Signs/Physical Exam: Temp Pulse Resp BP Pulse Ox 97.6 F 74 16 132/77 96 03/16/24 12:08 03/16/24 12:08 03/16/24 12:08 03/16/24 12:08 03/16/24 12:08 Laboratory Data at Discharge: WBC 6.90 thou/uL (4.3-10.9) 03/16/24 03:22 Hgb 15.5 g/dL (13.6-17.9) D 03/16/24 03:22 Hct 45.9 % (39.6-49.0) 03/16/24 03:22 Plt Count 214 thou/uL (152-406) 03/16/24 03:22 PT 21.5 SECONDS (9.5-12.5) H 03/16/24 03:22 INR 1.99 03/16/24 03:22 Sodium 137 mEq/L (136-145) 03/16/24 03:22 Potassium 3.9 mEq/L (3.5-5.1) D 03/16/24 03:22 BUN 22 mg/dL (7-18) H 03/16/24 03:22 Creatinine 1.22 mg/dL (0.70-1.30) 03/16/24 03:22 Glucose 148 mg/dL (74-106) H 03/16/24 03:22 Magnesium 2.2 mg/dL (1.6-2.4) 03/13/24 08:49 Total Bilirubin 0.6 mg/dL (0.2-1.0) 03/13/24 08:49 AST < 10 U/L (15-37) L 03/13/24 08:49 ALT 19 U/L (16-61) 03/13/24 08:49 Alkaline Phosphatase 71 U/L (45-117) 03/13/24 08:49 Home Medications: Sacubitril/Valsartan [Entresto 24 mg-26 mg Tablet] 1 each PO BID 11/05/23 Amiodarone HCl [Cordarone*] 200 mg PO BID #60 tab 02/22/24 Clopidogrel Bisulfate [Plavix*] 75 mg PO DAILY #30 tab 02/22/24 Hydrocodone 10/APAP 325 [[place] 10/325*] 1 tab PO TID PRN #12 tab 02/22/24 Isosorbide Mononitrate [Isosorbide Mononitrate ER] 30 mg PO DAILY #30 tab 02/22/24 Spironolactone [Aldactone*] 50 mg PO DAILY #30 tab 02/22/24 Nitroglycerin [Nitrostat*] 0.4 mg SL UD PRN 30 Days #30 tab 03/16/24 Warfarin Sodium 5 mg PO DAILY 6PM 30 Days #30 tab 03/16/24 New Medications: Nitroglycerin [Nitrostat*] 0.4 mg SL UD PRN 30 Days #30 tab PRN Reason: Pain Scale 2-4 (Mild) Warfarin Sodium 5 mg PO DAILY 6PM 30 Days #30 tab Physician Discharge Instructions: Coumadin alternating doses of 5mg and 7mg every other day Be aware that your INR is checked every third day to maintain your goal level between 2.0-3.0 Follow up: PCP within 1 week Cardiology in ~1 week Check INR this Sunday - discuss with PCP/Waiter/Waitress Head. Diet: AHA Activity: Ad selvin Followup: NONE,NONE [Primary Care Provider] -
[2024-03-16] MEDS ORDERED: WARFARIN SODIUM 5 MG TAB PO ONE (17:00)
--- NOTE | 2024-03-18 14:20 | EKG ---
Test Date: 2024-03-16 Test Time: 05:59:55 Tests Superintendent: RADHA MEASUREMENT RESULTS: Intervals: Rate: 61 AR: 182 QRSD: 96 QT: 456 QTc: 459 Orrum: P: 23 AR: 182 QRS: 125 T: -10 INTERPRETIVE STATEMENTS: Normal sinus rhythm Cannot rule out Inferior infarct, age undetermined Anterolateral infarct, age undetermined Abnormal ECG Compared to ECG 03/13/2024 08:30:54 No significant changes Electronically Signed On 03-18-24 14:13:54 CDT by Pepe Rodriguez
== END 2024-03-16 12:49 | disposition home or self-care (01) | DRG 303 ==
LOC: ER 08:10 → ERHOLD 10:39 → 2ND 14:41 → OBSVTOIN 03-14 12:16
PROVIDERS: ADMIT Hospitalist; ATTEND Hospitalist
DX: I25.110 Atherosclerotic heart disease of native coronary artery with unstable angina pectoris (principal); I50.22 Chronic systolic (congestive) heart failure; I11.0 Hypertensive heart disease with heart failure; E11.9 Type 2 diabetes mellitus without complications; E78.5 Hyperlipidemia, unspecified; I25.2 Old myocardial infarction; F17.210 Nicotine dependence, cigarettes, uncomplicated; Z95.5 Presence of coronary angioplasty implant and graft; Z79.01 Long term (current) use of anticoagulants; Z90.49 Acquired absence of other specified parts of digestive tract; Z79.02 Long term (current) use of antithrombotics/antiplatelets; Z79.899 Other long term (current) drug therapy; Z95.810 Presence of automatic (implantable) cardiac defibrillator
CPT/HCPCS: 36415; 71045; 80048; 80076; 82947; 83735; 83880; 84439; 84443; 84484; 85025; 85610; 93005; 93306; 96372; 96374; 96375; 99285; G0378; J1170; J1650; J2405